=== PATIENT | female | born 1955 | race Caucasian/White ===

== ENCOUNTER 2018-05-19 19:18 | Outpatient (REF) | payer MEDICARE, MEDICAID, SELFPAY ==
[2018-05-19 20:01] LABS: Anion Gap 8.9 mmol/L (3-11); BUN 16 mg/dL (7-18); CO2 28.1 mmol/L (21.0-32.0); CREATININE 1.41 mg/dL (0.55-1.02); Calcium 9.1 mg/dL (8.5-10.1); Chloride 102 mmol/L (98-107); Estimated GFR 37.55 (mL/min/1.73m2); Glucose 348 mg/dL (70-100); Potassium 4.5 mmol/L (3.5-5.1); Sodium 139 mmol/L (136-145); TSH (W/Ref FT4) 1.86 uIU/mL (0.358-3.74)
== END 2018-05-19 19:38 ==
LOC: LBN 19:18
PROVIDERS: PCP Nurse Practitioner Adult Health; Visit Provider Nurse Practitioner Adult Health
DX: E03.9 Hypothyroidism, unspecified (principal); E11.49 Type 2 diabetes mellitus with other diabetic neurological complication
CPT/HCPCS: 80048; 84443

== ENCOUNTER 2018-11-26 02:01 | Outpatient (CLI) | payer MEDICARE, MEDICAID, SELFPAY | END 2018-11-26 02:21 | PROVIDERS: PCP Nurse Practitioner Adult Health; Visit Provider Nurse Practitioner Adult Health | DX: J44.9 Chronic obstructive pulmonary disease, unspecified (principal) ==

== ENCOUNTER 2019-05-19 11:48 | Outpatient (CLI) | payer MEDICARE, MEDICAID, SELFPAY ==
--- NOTE | 2019-05-19 12:04 | DI.RAD_ITS ---
EXAM: XR ELBOW LT COMPLETE INDICATION: pain. COMPARISON: No exams were available for comparison TECHNIQUE: 2D digital imaging was performed. FINDINGS: There is soft tissue swelling posterior to the olecranon. There is mild spurring at the olecranon an d epicondyles. The joint spaces are well maintained. IMPRESSION: Olecranon bursitis.
== END 2019-05-19 12:08 ==
PROVIDERS: PCP Nurse Practitioner Adult Health; Referring Provider Nurse Practitioner Adult Health; Visit Provider Orthopaedic Surgery
DX: M25.522 Pain in left elbow (principal); M79.89 Other specified soft tissue disorders; M70.22 Olecranon bursitis, left elbow
CPT/HCPCS: 99214; 73080

== ENCOUNTER 2019-08-26 08:47 | Outpatient (CLI) | payer MEDICARE, MEDICAID, SELFPAY ==
[2019-08-27 14:13] LABS: COVID-19 RT-PCR Result Negative (Negative)
== END 2019-08-26 09:07 ==
PROVIDERS: PCP Nurse Practitioner Adult Health; Visit Provider Nurse Practitioner
DX: R05 Cough (principal); R06.02 Shortness of breath
CPT/HCPCS: U0003

== ENCOUNTER 2019-09-02 10:53 | Inpatient (IN) | payer MEDICARE, MEDICAID, SELFPAY ==
[2019-09-02] VITALS (41 sets, daily range): BP systolic 100–150; BP diastolic 58–112; PULSE 68–107; RESP 16–34; TEMP 36.3–37.1; O2SAT 89–100
--- NOTE | 2019-09-02 11:04 | ED.GENADUL_ITS ---
Discharge Plan Disposition Patient Disposition: [facility] INPATIENT Condition: Improving Discharge Details Chief Complaint: SOB Clinical Impression: CHF exacerbation, Acute dyspnea Primary Care Provider: Mai Castelan ED Provider: Jeremie Mcdonald Home Meds and New Rx's Prescriptions: No Action ezetimibe [Zetia] 10 mg tablet 10 mg PO DAILY Qty: 90 RF: 3 levothyroxine 50 mcg tablet 50 mcg PO DAILY Qty: 90 RF: 3 mupirocin 2 % ointment 1 applic TP BID Qty: 15 RF: 0 nicotine 10 mg cartridge 1 inh IH 4-6XD PRN (Reason: nicotine cravings) Qty: 168 RF: 1 acetaminophen 500 mg capsule 1,000 mg PO TID Qty: 180 RF: 11 naproxen 250 mg tablet 250 mg PO BID Qty: 30 RF: 1 Mucinex 1,200 mg tablet extended release 12hr 1,200 mg PO Q12H PRN (Reason: cold symptoms) Qty: 60 RF: 1 Medical THC 1 misc Inhalation PRN PRNRF: 0 budesonide-formoterol [Symbicort] 10.2 GM HFA aerosol inhaler 2 puff Inhalation BID Qty: 3 RF: 3 spironolactone 25 MG tablet 12.5 mg PO DAILY Qty: 30 RF: 11 duloxetine [Cymbalta] 60 mg capsule,delayed release(DR/EC) 60 mg PO BID Qty: 180 RF: 3 albuterol sulfate [ProAir HFA] 90 mcg/actuation HFA aerosol inhaler 1 - 2 puff Inhalation Q4H PRN Qty: 1 RF: 3 Lantus Solostar U-100 Insulin 100 unit/mL (3 mL) insulin pen 80 unit Sub-Q HS Qty: 3 RF: 11 Victoza 2-Kosta 0.6 mg/0.1 mL (18 mg/3 mL) pen injector 1.8 mg subcut DAILY Qty: 3 RF: 3 metoprolol tartrate 25 mg tablet 25 mg PO BID Qty: 180 RF: 3 pantoprazole 40 mg tablet,delayed release (DR/EC) 40 mg PO DAILY Qty: 90 RF: 3 simvastatin 40 mg tablet 40 mg PO DAILY Qty: 90 RF: 3 torsemide 10 mg tablet 10 mg PO DAILY Qty: 90 RF: 3 (DME) pen needle, diabetic [BD Ultra-Fine Carmela Pen Needle] 32 gauge x 5/32 needle 1 ea Sub-Q 6 times a day Qty: 540 RF: 6 finasteride 5 mg tablet 1.25 mg PO DAILY RF: 0 buspirone 30 mg tablet 15 mg PO BID Qty: 90 RF: 3 losartan [Cozaar] 50 mg tablet 50 mg PO DAILY Qty: 90 RF: 3 benzonatate [Tessalon Perles] 100 mg capsule 100 mg PO TID PRN (Reason: cough) Qty: 90 RF: 3 ipratropium bromide 0.03 % spray,non-aerosol 2 spray SANKET TID Qty: 30 RF: 0 insulin aspart U-100 [Novolog Flexpen U-100 Insulin] 100 unit/mL (3 mL) insulin pen 20 unit SC AC Qty: 60 RF: 3 (DME) blood sugar diagnostic Strip See Dose Instructions .ROUTE .MEDSUPPLY Qty: 400 RF: 3 (DME) lancets [OneTouch UltraSoft Lancets] Misc See Dose Instructions .ROUTE .MEDSUPPLY Qty: 400 RF: 3 Medical Decision Making 64-year-old female with a past medical history of COPD, CHF, CAD, hypertension, diabetes, distant history of AAA. Previous echo was in 2017 which showed a slightly reduced EF of 45%. She takes 10 mg torsemide daily. 2 weeks ago she had a mild upper respiratory infection, was COVID negative upon testing. She states that that just his not completely resolved, she has continued cough with productive white sputum. No red flags for PE, no chest pain or concerning symptoms for ACS. Signs and symptoms appear clinically consistent with mild CHF exacerbation. Patient is notably conversationally dyspneic, she does not use oxygen at baseline. Unable to ambulate well without getting extremely short of breath. We will get a laboratory work-up, portable chest x-ray, and begin to gently diurese. Infectious etiology less likely. 12:30 PM Patient's laboratory work-up is returned, patient has no white count, no bandemia, no left shift. No lymphopenia. Symptoms certainly inconsistent with coronavirus especially in conjunction with a recent negative testing. With no fever or chills no white count or bandemia, infectious etiology unlikely in general. Chest x-ray does demonstrate evidence of mild pulmonary edema. Still pending formal radiology read. proBNP notably elevated at 1500, much higher than her normal baseline. Troponin normal, renal function stable. Patient has been given 20 mg of IV Lasix. Also of note the patient is now stating that she has been eating a lot of pastrami foods, which I suspect have certainly been contributing to her CHF exacerbation. She remains hemodynamically stable here. This time I do feel that she would be of benefit for admission secondary to her generalized dyspnea. Symptoms appear at this time inconsistent with PE. And clinically consistent with CHF exacerbation. I do not feel that additional testing is indicated at this time. Discussed the case with Dr. Tate, he agrees with the assessment and plan. Patient will be admitted to [facility]. I will place bridging orders. I have extensively reviewed the treatment plan with the patient. I have addressed all patient concerns at this time. I have also discussed the plan with the admitting physician and they agree with the current assessment and plan and have agreed to assume responsibility for the patient. All parties demonstrate verbal understanding and agreement with our assessment and plan at this time. 12:41 PM X-ray radiographs of return, no evidence of focal consolidation. Radiology does feel that there is no evidence of significant CHF, however both clinically and upon evaluation of films I do feel differently. We will continue to manage for CHF exacerbation. 12:39 PM I have been informed that med staff has requested that we recheck for coronavirus. Will add flu and vera to be performed down here in the ED which is a change within the last 3 hours for current diagnostic medical practice here in the ED. EKG 11: 06 Rate 101, intervals demonstrate OR slightly prolonged at 204, QTc 451, QRS 118, sinus tachycardia, Q waves are noted in V3, through V6 as well as 2, 3, and aVF. Previous EKG from 04/03/2017 demonstrates near identical findings. No evidence of STEMI. No significant ST elevation or depression. FINDINGS: The exam is suboptimally penetrated. The heart size is within normal limits. A hiatal hernia is noted. A lead overlies the chest. The lungs are grossly clear. No effusions or focal consolidation is seen. There is no evidence of overt pulmonary edema. A right shoulder prosthesis is noted. IMPRESSION: Limited exam. Hiatal hernia. No evidence of CHF or focal consolidation. HPI General Date/Time Provider Initiated Documentation: 09/02/19 11:02 . HPI Narrative: 64-year-old female with a past medical history of COPD, CHF, coronary artery disease, hypertension, diabetes, AAA, who presents today for evaluation of shortness of breath and leg swelling. Patient states about 2 weeks ago she had a mild upper respiratory-like infection with cough. She was tested for COVID, this was returned as negative on 08/25. She states that she has never really gotten better since then. She originally had some chills, but she denies any fevers. Her cough is productive with white frothy sputum. She denies any hemoptysis. She has noticed that over the last 2 to 3 days she has become p rogressively more short of breath, worse when lying flat. She is also noticed bilateral lower extremity edema. Denies PE risk factors such as recent long car rides, immobilization, recent surgery, prior history of DVT or PE, family history of PE or DVT, morbid obesity, exogenous estrogen and smoking, hemoptysis, history of cancer. She has been taking her 10 mg of furosemide as directed daily. She does state that she has been using her inhaler, and this helped slightly. She denies any chest pain, chest tightness, bandlike sensation around her chest, pleuritic chest pain. She states that this does not feel like her last heart attack. She denies any other complaints at this time. No additional modifying factors. Related Data Home Medications Medication Instructions Recorded Confirmed Medical Thc 1 misc INHALATION PRN PRN 04/06/14 09/02/19 budesonide-formoterol [Symbicort] 2 puff INHALATION BID #3 inhaler 01/28/17 09/02/19 spironolactone 12.5 mg PO DAILY #30 tab-cap 10/28/17 09/02/19 duloxetine 60 mg capsule,delayed 60 mg PO BID #180 tab-cap 05/01/18 09/02/19 release albuterol sulfate 90 mcg/actuation 1 - 2 puff INHALATION Q4H PRN #1 gm 08/06/18 09/02/19 aerosol inhaler insulin glargine 100 unit/mL (3 80 unit SUB-Q HS #3 ml 08/06/18 09/02/19 mL) subcutaneous pen liraglutide 0.6 mg/0.1 mL (18 mg/3 1.8 mg SUBCUT DAILY #3 pack 08/06/18 09/02/19 mL) subcutaneous pen injector metoprolol tartrate 25 mg tablet 25 mg PO BID #180 tab-cap 08/06/18 09/02/19 pantoprazole 40 mg tablet,delayed 40 mg PO DAILY #90 tab-cap 08/06/18 09/02/19 release simvastatin 40 mg tablet 40 mg PO DAILY #90 tab 08/06/18 09/02/19 torsemide 10 mg tablet 10 mg PO DAILY #90 tab-cap 08/06/18 09/02/19 nicotine 10 mg inhalation cartridge 1 inh IH 4-6XD PRN #168 each 10/30/18 09/02/19 pen needle, diabetic 32 gauge x #540 ndl 11/03/18 09/02/19 finasteride 5 mg tablet 1.25 mg PO DAILY tab 02/09/19 09/02/19 ezetimibe 10 mg tablet 10 mg PO DAILY #90 tab-cap 03/03/19 09/02/19 levothyroxine 50 mcg tablet 50 mcg PO DAILY #90 tab-cap 03/03/19 09/02/19 mupirocin 2 % topical ointment 1 applic TP BID #15 gm 03/03/19 09/02/19 buspirone 30 mg tablet 15 mg PO BID #90 tab 06/11/19 09/02/19 losartan 50 mg tablet 50 mg PO DAILY #90 tab 06/11/19 09/02/19 benzonatate 100 mg capsule 100 mg PO TID PRN #90 cap 07/02/19 09/02/19 ipratropium bromide 0.03 % nasal 2 spray SANKET TID #30 ml 07/25/19 09/02/19 spray insulin aspart U-100 100 unit/mL 20 unit SC AC #60 ml 08/10/19 09/02/19 (3 mL) subcutaneous pen acetaminophen 500 mg capsule 1,000 mg PO TID #180 cap 08/17/19 09/02/19 guaifenesin 1,200 mg tablet, 1,200 mg PO Q12H PRN #60 tab 08/17/19 09/02/19 extended release 12 hr naproxen 250 mg tablet 250 mg PO BID #30 tab 08/17/19 09/02/19 blood sugar diagnostic #400 each 08/21/19 09/02/19 lancets #400 each 08/21/19 09/02/19 Previous Rx's Medication Instructions Recorded budesonide-formoterol [Symbicort] 2 puff INHALATION BID #3 inhaler 01/28/17 spironolactone 12.5 mg PO DAILY #30 tab-cap 10/28/17 duloxetine 60 mg capsule,delayed 60 mg PO BID #180 tab-cap 05/01/18 release albuterol sulfate 90 mcg/actuation 1 - 2 puff INHALATION Q4H PRN #1 gm 08/06/18 aerosol inhaler insulin glargine 100 unit/mL (3 80 unit SUB-Q HS #3 ml 08/06/18 mL) subcutaneous pen liraglutide 0.6 mg/0.1 mL (18 mg/3 1.8 mg SUBCUT DAILY #3 pack 08/06/18 mL) subcutaneous pen injector metoprolol tartrate 25 mg tablet 25 mg PO BID #180 tab-cap 08/06/18 pantoprazole 40 mg tablet,delayed 40 mg PO DAILY #90 tab-cap 08/06/18 release simvastatin 40 mg tablet 40 mg PO DAILY #90 tab 08/06/18 torsemide 10 mg tablet 10 mg PO DAILY #90 tab-cap 08/06/18 nicotine 10 mg inhalation cartridge 1 inh IH 4-6XD PRN #168 each 10/30/18 pen needle, diabetic 32 gauge x #540 ndl 11/03/18 ezetimibe 10 mg tablet 10 mg PO DAILY #90 tab-cap 03/03/19 levothyroxine 50 mcg tablet 50 mcg PO DAILY #90 tab-cap 03/03/19 mupirocin 2 % topical ointment 1 applic TP BID #15 gm 03/03/19 buspirone 30 mg tablet 15 mg PO BID #90 tab 06/11/19 losartan 50 mg tablet 50 mg PO DAILY #90 tab 06/11/19 benzonatate 100 mg capsule 100 mg PO TID PRN #90 cap 07/02/19 ipratropium bromide 0.03 % nasal 2 spray SANKET TID #30 ml 07/25/19 spray insulin aspart U-100 100 unit/mL 20 unit SC AC #60 ml 08/10/19 (3 mL) subcutaneous pen acetaminophen 500 mg capsule 1,000 mg PO TID #180 cap 08/17/19 guaifenesin 1,200 mg tablet, 1,200 mg PO Q12H PRN #60 tab 08/17/19 extended release 12 hr naproxen 250 mg tablet 250 mg PO BID #30 tab 08/17/19 blood sugar diagnostic #400 each 08/21/19 lancets #400 each 08/21/19 Allergies Allergy/AdvReac Type Severity Reaction Status Date / Time bupropion HCl Allergy Severe seizures Verified 09/02/19 11:07 [From Wellbutrin] carvedilol [From Coreg] Allergy Mild Itching Verified 09/02/19 11:07 morphine AdvReac Unknown nausea Verified 09/02/19 11:07 General Stated Complaint: SOB DINESH: 2 Review of Systems All systems reviewed & are unremarkable except as noted in HPI and below PFSH Medical History (Updated 09/02/19 @ 12:40 by Jeremie Mcdonald DO) Abdominal aortic aneurysm (Chronic 11/27/12) Identified 10/31/12 CT abd-pelvis; 4cm; stable 4.1 cm 07/2014 CT, 4.3cm 11/2016, 5.5cm [place] [place] Brennen Nava following; see 04/2016 progress note. 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 Guerra DJD of right shoulder (Chronic 01/01/13) 12/2012 x-ray severe DJD glenohumeral joint Dr. Guerra; not a surgical candidate for replacement Episode of seizures in July 2012 (Resolved) Esophageal reflux disease (Chronic 07/24/11) UPPER GI SERIES 11/14/2012, MOD HIATAL HERNIA SEVERE GERD Headache (Chronic 08/31/13) Hypertension (Chronic) Hypothyroidism (Chronic) Incarcerated umbilical hernia (Resolved 09/06/15) Marijuana dependence (Chronic) Nausea and vomiting (Resolved 08/01/14) a. previous history of possible marijuana induced hyperemesis Neurogenic bladder (Resolved 07/24/11) Does not need to self-cath 11/2016: +Urinary retention [facility] inpt requiring cath; resolved by time of discharge Nicotine dependence (Chronic) Obesity, unspecified (Chronic 07/24/11) Other and unspecified hyperlipidemia (Chronic 08/14/12) Spinal stenosis of lumbar region with neurogenic claudication (Chronic 12/08/13) 04/13/2013 MRI Lumbar Spine: Facet arthropathy, DJD, L4-5, L5-S1 central spinal and neural foraminal stenosis Neurosurgery referral, but not a surgical candidate [facility] chronic pain service Chronic Pain [facility] consult 10[place]26[place] [facility] [place]04/17 (Sanket Sawant MD) 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 work-up 2010/chun +Hereditary, 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 Ambulates with cane when out; walker at home 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) Goal A1c < 7.5% Schein, neuropathy; Charcot's foot 03/19/13 [facility] Surgical History (Updated 08/17/19 @ 13:38 by Mai Castelan NP) Appendectomy Childhood surgery, no date given by pt.HE Hemiarthroplasty (06/13/15) Dr Charlie Gallardo shoulder History of carpal tunnel release of both wrists (Acute ~05/2012) Hx of umbilical hernia repair (Inactive 09/06/15) Incarcerated umbilical hernia repair (09/06/15) Tonsillectomy childhood surgery, no date given by pt.HE Social History Smoking/Tobacco Use Status: Current every day Alcohol Intake: never Drug use: Daily Substance use type: marijuana Adopted: No Foster care: No Housing: house Number of Children: 1 Communication Needs: Corrective Lenses Education Level: high school Details: didn't sophomore year Do you need help understanding health information?: Never 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 Pets and animals: Yes Current gender identity: female What is your relationship status?: Panel score (0-1 are the most socially isolated patients): 0 What type of physical activity do you participate in: none Do you feel safe at home: Yes Do you feel safe in your relationship?: Yes Exam Narrative Exam Narrative: 1.Const: Well-nourished, Well-developed, appearing stated age 2.Eyes: PERRL, no conjunctival injection, and symmetrical lids. 3.ENT: Atraumatic external nose and ears. Moist MM. Neck: Symmetric, trachea midline, No thyromegaly. 4.CVS: +S1/S2, No murmurs or gallops. Peripheral pulses 2+ and equal in all extremities. Brisk capillary refill in all extremities. 5.RESP: Conversationally dyspneic. Oxygen stable though. Wheezes on the right, crackles at bases. 6.GI: Soft, Nontender/Nondistended, No hepatosplenomegaly. No guarding or rebound. 7.MSK: Normocephalic/Atraumatic, Extremities w/o deformity or ttp No cyanosis or clubbing, Normal movement of all extremities. No significant or unilateral calf tenderness, however she has +2 bilateral lower extremity edema. 8.Skin: Warm, Dry. No rashes or lesions. 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 Sensation grossly intact, no focal neurologic deficits. 10.Psych: (AAO) x3. Appropriate mood and affect Course Vital Signs Vital signs: Vital Signs Temperature 36.8 C 09/02/19 10:54 Pulse 107 H 09/02/19 10:54 Respiratory Rate 16 09/02/19 10:54 Pulse Oximetry 96 09/02/19 10:54 Temperature 36.8 C 09/02/19 10:54 Temperature Source Skin 09/02/19 10:54 Pulse 107 H 09/02/19 10:54 Respiratory Rate 16 09/02/19 10:54 Pulse Oximetry 96 09/02/19 10:54 Oxygen Delivery Method Room Air 09/02/19 10:54 Oxygen Flow Rate 0 09/02/19 10:54 Lab/Test Results Lab/Test Results: 09/02/19 11:03 Blood Blood Culture - Pending 09/02/19 11:03 Blood Blood Culture - Pending
--- NOTE | 2019-09-02 11:08 | NUR.NOTE ---
[facility] med list Nursing Note:
[2019-09-02 11:25] LABS: Abs Immature Grans 0.07 k/cumm (0.0-0.09); Absolute Basophil Count 0.02 k/cumm (0.0-0.2); Absolute Eosinophil Count 0.19 k/cumm (0.0-0.7); Absolute Lymphocyte Count 1.26 k/cumm (1.2-3.4); Absolute Monocyte Count 0.55 k/cumm (0.11-0.7); Absolute Neutrophil Count 6.31 k/cumm (1.2-6.7); Basophils % 0.2; Eosinophils % 2.3; HCO3 (Venous) 28 mmol/L (22-28); HCT 32.3 % (36.0-46.0); HGB 9.5 g/dL (12.0-15.5); Immature Grans % 0.8 %; Mean Corp. HGB Concentration 29.4 g/dL (32.0-36.0); Mean Corpuscular Hemoglobin 22.5 pg (27.0-33.0); Mean Corpuscular Volume 76.4 fL (80-95); Mean Platelet Volume 9.9 fL (8.0-11.0); Monocytes % 6.5; Neutrophils % 75.2; O2 Sat (Venous) 93 % (70-80); Platelet Count 342 x1000/uL (130-400); RBC 4.23 m/cumm (4.00-5.20); RBC Distribution Width 18.4 % (11.7-14.6); TCO2 (Venous) 27 mmol/L (22-29); pCO2 (Venous) 43 mm/Hg (34-47); pH (Venous) 7.43 (7.35-7.45); pO2 (Venous) 65 mm/Hg (28-44)
[2019-09-02 11:40] LABS: Diff Comment Diff Reviewed; Hypochromasia 2+; Microcytosis 1+; Poikilocytes 1+
[2019-09-02 11:52] LABS: ALT 41 U/L (14-59); AST 34 U/L (15-37); Albumin 3.4 g/dL (3.4-5.0); Alkaline Phosphatase 154 U/L (46-116); Anion Gap 8.5 mmol/L (3-11); BUN 24 mg/dL (7-18); Bilirubin, Total 0.4 mg/dL (0.2-1.0); CO2 28.5 mmol/L (21.0-32.0); CREATININE 1.12 mg/dL (0.55-1.02); Chloride 105 mmol/L (98-107); Estimated GFR 48.82 (mL/min/1.73m2); Glucose 214 mg/dL (74-106); NT-proBNP 1511 pg/mL (<300); Potassium 4.3 mmol/L (3.5-5.1); Sodium 142 mmol/L (136-145); Total Protein 7.2 g/dL (6.4-8.2); Troponin I < 0.05 ng/Ml (<0.06)
[2019-09-02 11:59] LABS: PTT Activated 25.2 sec (21.0-31.4)
--- NOTE | 2019-09-02 12:04 | DI.RAD_ITS ---
EXAM: XR PORTABLE CHEST AP CLINICAL HISTORY: cough, SOB, suspect chf, r/o pneumonia TECHNIQUE: 2D digital imaging was performed. COMPARISON: ABD FLAT UPRIGHT PA CHEST from 11/13/2016 CTA THORAX/ABDOMEN/PELVIS from 04/01/2017 FINDINGS: The exam is suboptimally penetrated. The heart size is within normal limits. A hiatal hernia is no dena. A lead overlies the chest. The lungs are grossly clear. No effusions or focal consolidation i s seen. There is no evidence of overt pulmonary edema. A right shoulder prosthesis is noted. IMPRESSION: Limited exam. Hiatal hernia. No evidence of CHF or focal consolidation.
[2019-09-02] MEDS: Normal Saline Flush 10 ML SYR IVP ×2 (12:14→20:48)
[2019-09-02] MEDS: Furosemide 20 MG/2 ML VIAL IVP (12:14)
[2019-09-02 12:20] LABS: Bilirubin Negative (Negative); Blood Trace-intact (Negative); Clarity Sl Cloudy (Clear); Glucose Negative (Negative); Ketones Negative (Negative); Leukocyte Esterase Small (Negative); Nitrite Negative (Negative); Specific Gravity 1.025 (1.005-1.025); Urobilinogen 0.2 EU/dL (Up TO 0.2)
[2019-09-02 12:35] LABS: Epithelial Cells Many HPF (Negative); Other Cells Few Renal (Negative); RBC 0-2 HPF (0-2); WBC 0-2 HPF (0-5)
[2019-09-02 12:36] LABS: Bacteria Negative HPF (Negative); C & S Indicated? No/Sq. Contamination; Casts Negative LPF (Negative); Crystals Negative HPF (Negative); Mucus Negative (Negative)
[2019-09-02] MEDS: Albuterol HFA 8 GM 60 PUFF INH IH (13:26)
[2019-09-02 14:51] LABS: Troponin I < 0.05 ng/Ml (<0.06)
--- NOTE | 2019-09-02 15:29 | W.PM.HP.N ---
Date of service: 09/02/19 Time of Service: 15:29 Assessment and Plan Assessment and plan (1) CHF exacerbation: Status: Acute Assessment and plan: I think her respiratory symptoms can be almost fully explained by CHF exacerbation, likely due to intermittent medication adherence. Less likely cardiac dysrhythmia or ischemia. We will cycle troponins and monitor rhythm on telemetry. Parenteral Lasix given in the ER with moderate diuretic response already. I am re-dosing at a higher dose and then we will see what response we get. May need to increase her outpatient dose of torsemide although strict medication adherence might be sufficient. Continue ARB and beta-gerry at current dosages. Once out of the respiratory care unit, will obtain echocardiogram. (2) Nicotine dependence: Status: Chronic Assessment and plan: Still smoking. Wants to quit. Will provide nicotine replacement in the form of nicotine inhaler. (3) Type II diabetes mellitus with neurological manifestations: Status: Chronic Assessment and plan: Adherence with testing and treatment spotty. Continue with basal bolus insulin regimen reducing the doses of both long and short acting insulin to avoid hypoglycemia and monitoring blood sugar response (4) Esophageal reflux disease: Status: Chronic Assessment and plan: Probable flare of symptoms related to inconsistent medication use. Continue outpatient PPI. (5) Coronary artery disease involving [place] coronary artery of [place] heart: Status: Chronic Assessment and plan: I think it is unlikely ischemia is playing a role in her current symptoms although it is possible. Cycle troponins as noted above. Continue outpatient medications, (beta-gerry, statin, ezetimibe and ARB.) Monitor rhythm on telemetry. Work on smoking cessation. (6) Chronic kidney disease, stage III (moderate): Status: Chronic Assessment and plan: BUN and creatinine lab work seems to be at baseline. Monitor with efforts at diuresis. (7) COPD, mild: Status: Chronic Assessment and plan: I do not see a need for systemic steroids. We will continue inhaled corticosteroids with Symbicort, as needed short acting albuterol. If not responding consider adding Spiriva. Work on smoking cessation. (8) Chronic back pain: Status: Chronic Assessment and plan: In light of her heart failure, NSAIDs contraindicated. Symptom treatment with acetaminophen, local heat or cold as tolerated. (9) Hypertension: Status: Chronic Assessment and plan: Follow on outpatient meds plus efforts at diuresis. (10) Tinea corporis: Status: Acute Assessment and plan: Mild involvement, submammary. Topical Chlortrimazole. (11) Person under investigation for COVID-19: Status: Acute Assessment and plan: Low very low probability that she is acquired COVID in the past week. Nevertheless presents with respiratory symptoms. COVID testing sent. (12) Microcytic anemia: Status: Acute Assessment and plan: No history of known GI bleeding. Longstanding microcytosis. We will check iron levels. We will also check stool for occult blood. History of Present Illness History of Present Illness Chief Complaint: Shortness of breath and leg swelling Narrative: 64-year-old woman with multiple chronic medical problems including congestive heart failure, presumably ischemic cardiomyopathy with past history of coronary artery disease, inferior wall DC in the , poorly controlled diabetes, mild COPD with continued tobacco use, chronic kidney disease, hypertension, GERD and chronic pain from arthritis axial and appendicular. She presented to the emergency room complaining of increasing exertional dyspnea, orthopnea and lower extremity swelling perhaps over the past 4 to 5 days. Subsequent to ER visit admits to me that she has been spotty in taking her medications. She has not had any palpitations. She has had some vague nonexertional chest pain. She received a GI cocktail in the ER which seemed to help. She does now acknowledge bad heartburn since stopping her PPI. Reports that she often will stop taking medications for 3 to 5 days at a time and then resume them. She only recently restarted her diuretic. Last echocardiogram in 2017 showed an LVEF of 40 to 45%. She has not seen a rock wool applicator since her last visit with Dr. Fair (whom she does not want to see again). She does not add salt to food but has eaten salty foods in the past week. She thinks her weight has gone up by 15 pounds in the past few weeks with no major changes in activity or diet. She has had a persistent cough ever since a head cold 2 to 3 weeks ago that she attributes to acquiring from her son with whom she lives. Cough minimally productive. She has not had any fever. Still smoking a half a pack a day and really wants to quit. Inconsistent use of her inhalers. She had COVID testing last week which was negative. She has not been out of the house although her son does go in and out of the house with his work. He is asymptomatic in terms of any fever or respiratory symptoms. She does not test her blood sugars regularly nor does she take her insulin consistently. She has not had any hypoglycemic episodes recently. Review of Systems Narrative: No fever. No loss of smell or taste. Does not have any upper teeth, does not wear dentures, mechanically soft diet usually at home. No trouble swallowing. Cough productive of some whitish phlegm. No dysphagia. Has had some retrosternal burning. No nausea or vomiting. No abdominal pains. Tendency towards constipation. No dysuria or hematuria. Lower extremity swelling as per HPI. Occasional paresthesias in the feet. Picks at lesions on her extremities and still covers them with Band-Aids. Recent cat scratch to her left leg with no redness or discharge or pain. Occasional cramping in her sides. Skin rash under the breasts that is a little bit itchy. [facility] Medical History (Updated 09/02/19 @ 15:54 by Jaime Tate MD) Abdominal aortic aneurysm (Chronic 11/27/12) Identified 10/31/12 CT abd-pelvis; 4cm; stable 4.1 cm 07/2014 CT, 4.3cm 11/2016, 5.[place] [place] Brennen Nava following; see 04/2016 progress note. 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 Ward Calculus of kidney and ureter (Resolved) Cardiomyopathy (Chronic) Dr Fair, EF 45% Jun 2014 ECHO (h/o much worse) 10/2016 ECHO: EF 40-45% 10/2016 MPI: no acute, but persistent old infarct Carpal tunnel syndrome (Resolved 08/14/12) resolved s/p b/l release Chronic back pain (Chronic) History of chronic opioids, now none Chronic kidney disease, stage III (moderate) (Chronic 08/14/12) Cortical atrophy R kidney on CT 07/2014; multiple cysts COPD, mild (Chronic 07/02/17) PFTs Coronary artery disease involving [place] coronary artery of [place] heart (Chronic) INFERIOR DC 1996, 100% RCA occlusion; large inf defect on perfusion scan, dr Fair Depressive disorder (Chronic 08/14/12) 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 Guerra DJD of right shoulder (Chronic 01/01/13) 12/2012 x-ray severe DJD glenohumeral joint Dr. Guerra; not a surgical candidate for replacement Episode of seizures in July 2012 (Resolved) Esophageal reflux disease (Chronic 07/24/11) UPPER GI SERIES 11/14/2012, MOD HIATAL HERNIA SEVERE GERD Headache (Chronic 08/31/13) Hypertension (Chronic) Hypothyroidism (Chronic) Incarcerated umbilical hernia (Resolved 09/06/15) Marijuana dependence (Chronic) Nausea and vomiting (Resolved 08/01/14) a. previous history of possible marijuana induced hyperemesis Neurogenic bladder (Resolved 07/24/11) Does not need to self-cath 11/2016: +Urinary retention [facility] inpt requiring cath; resolved by time of discharge Nicotine dependence (Chronic) Obesity, unspecified (Chronic 07/24/11) Other and unspecified hyperlipidemia (Chronic 08/14/12) Spinal stenosis of lumbar region with neurogenic claudication (Chronic 12/08/13) 04/13/2013 MRI Lumbar Spine: Facet arthropathy, DJD, L4-5, L5-S1 central spinal and neural foraminal stenosis Neurosurgery referral, but not a surgical candidate [facility] chronic pain service Chronic Pain [facility] Pain Center [place] [facility] [place]/04/17 (Sanket Sawant MD) 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 work-up chun +Hereditary, 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 Ambulates with cane when out; walker at home 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) Goal A1c < 7.5% Schein, neuropathy; Charcot's foot 03/19/13 [facility] Surgical History (Updated 08/17/19 @ 13:38 by Mai Castelan NP) Appendectomy Childhood surgery, no date given by pt.HE Hemiarthroplasty (06/13/15) Dr Charlie Gallardo shoulder History of carpal tunnel release of both wrists (Acute ~05/2012) Hx of umbilical hernia repair (Inactive 09/06/15) Incarcerated umbilical hernia repair (09/06/15) Tonsillectomy childhood surgery, no date given by pt.HE Social History Smoking/Tobacco Use Status: Current every day Alcohol Intake: never Drug use: Daily Substance use type: marijuana Adopted: No Foster care: No Housing: house Number of Children: 1 Communication Needs: Corrective Lenses Education Level: high school Details: didn't sophomore year Do you need help understanding health information?: Never 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 Pets and animals: Yes Current gender identity: female What is your relationship status?: Panel score (0-1 are the most socially isolated patients): 0 What type of physical activity do you participate in: none Do you feel safe at home: Yes Do you feel safe in your relationship?: Yes Meds Home Medications and Allergies Home Medications Medication Instructions Recorded Confirmed Type Medical Thc 1 misc INHALATION PRN PRN 04/06/14 09/02/19 History budesonide-formoterol [Symbicort] 2 puff INHALATION BID #3 inhaler 01/28/17 09/02/19 Rx duloxetine 60 mg capsule,delayed 60 mg PO BID #180 tab-cap 05/01/18 09/02/19 Rx release albuterol sulfate 90 mcg/actuation 1 - 2 puff INHALATION Q4H PRN #1 gm 08/06/18 09/02/19 Rx aerosol inhaler insulin glargine 100 unit/mL (3 80 unit SUB-Q HS #3 ml 08/06/18 09/02/19 Rx mL) subcutaneous pen liraglutide 0.6 mg/0.1 mL (18 mg/3 1.8 mg SUBCUT DAILY #3 pack 08/06/18 09/02/19 Rx mL) subcutaneous pen injector metoprolol tartrate 25 mg tablet 25 mg PO BID #180 tab-cap 08/06/18 09/02/19 Rx pantoprazole 40 mg tablet,delayed 40 mg PO DAILY #90 tab-cap 08/06/18 09/02/19 Rx release simvastatin 40 mg tablet 40 mg PO DAILY #90 tab 08/06/18 09/02/19 Rx torsemide 10 mg tablet 10 mg PO DAILY #90 tab-cap 08/06/18 09/02/19 Rx nicotine 10 mg inhalation cartridge 1 inh IH 4-6XD PRN #168 each 10/30/18 09/02/19 Rx pen needle, diabetic 32 gauge x #540 ndl 11/03/18 09/02/19 Rx 5/32 finasteride 5 mg tablet 1.25 mg PO DAILY tab 09/30/19 04/22/20 History ezetimibe 10 mg tablet 10 mg PO DAILY #90 tab-cap 03/03/19 09/02/19 Rx levothyroxine 50 mcg tablet 50 mcg PO DAILY #90 tab-cap 03/03/19 09/02/19 Rx mupirocin 2 % topical ointment 1 applic TP BID #15 gm 03/03/19 09/02/19 Rx buspirone 30 mg tablet 15 mg PO BID #90 tab 06/11/19 09/02/19 Rx losartan 50 mg tablet 50 mg PO DAILY #90 tab 06/11/19 09/02/19 Rx benzonatate 100 mg capsule 100 mg PO TID PRN #90 cap 07/02/19 09/02/19 Rx ipratropium bromide 0.03 % nasal 2 spray SANKET TID #30 ml 07/25/19 09/02/19 Rx spray insulin aspart U-100 100 unit/mL 20 unit SC AC #60 ml 08/10/19 09/02/19 Rx (3 mL) subcutaneous pen acetaminophen 500 mg capsule 1,000 mg PO TID #180 cap 08/17/19 09/02/19 Rx guaifenesin 1,200 mg tablet, 1,200 mg PO Q12H PRN #60 tab 08/17/19 09/02/19 Rx extended release 12 hr naproxen 250 mg tablet 250 mg PO BID #30 tab 08/17/19 09/02/19 Rx blood sugar diagnostic #400 each 08/21/19 09/02/19 Rx lancets #400 each 08/21/19 09/02/19 Rx Allergies Allergy/AdvReac Type Severity Reaction Status Date / Time bupropion HCl Allergy Severe seizures Verified 09/02/19 11:07 [From Wellbutrin] carvedilol [From Coreg] Allergy Mild Itching Verified 09/02/19 11:07 morphine AdvReac Unknown nausea Verified 09/02/19 11:07 Exam Narrative Exam Narrative: When resting speaks in full sentences, speaks in phrases after asking her to change position but recovers breathing fairly quickly. Temperature 36.3 blood pressure 109/58 regular pulse in the 90s. Sclera clear. No upper teeth, poor quality of the remaining mandibular teeth. No intraoral lesions visible. Cannot see neck veins because of the size of her neck. No cervical adenopathy or tenderness. Lungs have diminished breath sounds at both bases, few crackles at the left base none heard on the right. Heart tones soft, regular, I do not hear any murmur S3 or S4. She has erythema and faint scale in the submammary area bilaterally. Abdomen obese soft with normal bowel sounds no bruits heard and I cannot appreciate her known abdominal aortic aneurysm. There is no tenderness. Extremities with 3+ edema at the feet 2+ midshin none above the knee. She has scattered small abrasions on her left sutton. No ulcers on the feet. Good pulses in the feet and at the wrist. Symmetric movement of all extremities. Able to sit up in bed unassisted. Gets short of breath doing so. Oriented x4. Results Chest x-ray poor quality portable film compatible with CHF. EKG sinus rhythm with old inferior wall DC, no change from past ECGs. Troponins negative x2. NT proBNP elevated. Labs Result diagrams: 09/02/19 11:05 09/02/19 11:05 Labs: Laboratory Results - last 24 hr 09/02/19 09/02/19 09/02/19 11:05 11:05 11:05 WBC 8.40 RBC 4.23 Hgb 9.5 L Hct 32.3 L MCV 76.4 L MCH 22.5 L MCHC 29.4 L RDW 18.4 H Plt Count 342 MPV 9.9 Immature Gran % 0.8 Neutrophils % 75.2 Lymphocytes % 15.0 Monocytes % 6.5 Eosinophils % 2.3 Basophils % 0.2 Absolute Neutrophils 6.31 Absolute Lymphocytes 1.26 Absolute Monocytes 0.55 Absolute Eosinophils 0.19 Absolute Basophils 0.02 Differential Comment Diff reviewed RBC Morphology See below Hypochromasia 2+ Poikilocytosis 1+ Microcytosis 1+ PT 10.0 INR 1.0 APTT 25.2 VBG pH VBG pCO2 VBG pO2 VBG HCO3 VBG Total CO2 VBG O2 Saturation VBG Base Excess Sodium 142 Potassium 4.3 Chloride 105 Carbon Dioxide 28.5 Anion Gap 8.5 BUN 24 H Creatinine 1.12 H Estimated GFR/1.73 m2 48.82 Glucose 214 H Calcium 9.0 Total Bilirubin 0.4 AST 34 ALT 41 Alkaline Phosphatase 154 H Troponin I < 0.05 NT-Pro-B Natriuret Pep 1511 H Total Protein 7.2 Albumin 3.4 Urine Color Urine Clarity Urine pH Ur Specific [place] Urine Protein Urine Ketones Urine Blood Urine Nitrite Urine Bilirubin Urine Urobilinogen Ur Leukocyte Esterase Urine RBC Urine WBC Ur Epithelial Cells Urine Crystals Urine Bacteria Urine Casts Urine Mucus Urine Other Ur Culture Indicated? Urine Glucose 09/02/19 09/02/19 09/02/19 11:05 11:50 14:25 WBC RBC Hgb Hct MCV MCH MCHC RDW Plt Count MPV Immature Gran % Neutrophils % Lymphocytes % Monocytes % Eosinophils % Basophils % Absolute Neutrophils Absolute Lymphocytes Absolute Monocytes Absolute Eosinophils Absolute Basophils Differential Comment RBC Morphology Hypochromasia Poikilocytosis Microcytosis PT INR APTT VBG pH 7.43 VBG pCO2 43 VBG pO2 65 H VBG HCO3 28 VBG Total CO2 27 VBG O2 Saturation 93 H VBG Base Excess 4.0 H Sodium Potassium Chloride Carbon Dioxide Anion Gap BUN Creatinine Estimated GFR/1.73 m2 Glucose Calcium Total Bilirubin AST ALT Alkaline Phosphatase Troponin I < 0.05 NT-Pro-B Natriuret Pep Total Protein Albumin Urine Color Yellow Urine Clarity Sl cloudy Urine pH 7.0 Ur Specific [place] 1.025 Urine Protein 30 H Urine Ketones Negative Urine Blood Trace-intact H Urine Nitrite Negative Urine Bilirubin Negative Urine Urobilinogen 0.2 Ur Leukocyte Esterase Small H Urine RBC 0-2 Urine WBC 0-2 Ur Epithelial Cells Many Urine Crystals Negative Urine Bacteria Negative Urine Casts Negative Urine Mucus Negative Urine Other Few renal Ur Culture Indicated? No/sq. contamination Urine Glucose Negative Last Vital Signs Temp 36.8 C 09/02/19 14:35 Pulse 100 H 09/02/19 14:35 Resp 17 09/02/19 14:35 BP 136/77 09/02/19 14:35 Pulse Ox 95 09/02/19 14:35 COVID-19 Screening Traveled to [place] from one of the affected countries or regions?: NO Recent travel in the [place] within the last 8 weeks?: No Recent out of the country travel within the last 8 weeks?: No Exposure or possible exposure to illness during travel?: No Had IN PERSON contact w/suspected or confirmed C-19 person: No Have you had the following symptoms in the past few days?: Yes Symptoms noted since travel?: Lower Respiratory
[2019-09-02] MEDS: Furosemide 40 MG/4 ML VIAL IVP (16:12)
[2019-09-02] MEDS: Pantoprazole 40 MG TABCR PO (16:12)
[2019-09-02 17:11] LABS: Iron 31 ug/dL (50-170); Total Iron Binding Capacity 409 ug/dL (250-450); Transferrin Sat 8 % (15-50)
[2019-09-02] MEDS: Insulin Aspart 300 UNITS/3 ML PEN 10 UNITS SC (17:17)
[2019-09-02] MEDS: Insulin Aspart 300 UNITS/3 ML PEN SC (17:17)
[2019-09-02 20:36] LABS: Magnesium 1.8 mg/dL (1.8-2.4); Potassium 3.9 mmol/L (3.5-5.1)
[2019-09-02] MEDS: Acetaminophen 325 MG TAB 650 MG PO (21:21)
[2019-09-02] MEDS: DULoxetine 30 MG CAP 60 MG PO (21:21)
[2019-09-02] MEDS: Metoprolol 25 MG TAB PO (21:22)
[2019-09-02] MEDS: busPIRone 15 MG TAB PO (21:22)
[2019-09-02] MEDS: Clotrimazole 1% 15 GM TUBE TP (21:22)
[2019-09-02] MEDS: Simvastatin 40 MG TAB PO (21:22)
[2019-09-02] MEDS: Budesonide/Formoterol 160/4.5 6 GM 60 PUFF INH IH (21:23)
[2019-09-02] MEDS: Insulin Glargine 300 UNITS/3 ML PEN 50 UNITS SC (22:00)
[2019-09-02] MEDS: MAGNESIUM SULFATE 1 GM/100 ML BAG IVPB (22:02)
[2019-09-02] MEDS: Potassium Chloride 20 MEQ TABCR PO (22:02)
[2019-09-02] MEDS: LORazepam 2 MG/ML VIAL 1 MG IVP (22:03)
[2019-09-03] VITALS (8 sets, daily range): BP systolic 102–141; BP diastolic 52–73; PULSE 64–75; RESP 19–25; TEMP 36.1–36.8; O2SAT 93–96
[2019-09-03] MEDS: Albuterol HFA 8 GM 60 PUFF INH IH ×2 (00:59→13:29)
[2019-09-03 06:35] LABS: Abs Immature Grans 0.02 k/cumm (0.0-0.09); Absolute Basophil Count 0.03 k/cumm (0.0-0.2); Absolute Eosinophil Count 0.26 k/cumm (0.0-0.7); Absolute Lymphocyte Count 1.43 k/cumm (1.2-3.4); Absolute Monocyte Count 0.57 k/cumm (0.11-0.7); Absolute Neutrophil Count 4.74 k/cumm (1.2-6.7); Basophils % 0.4; Eosinophils % 3.7; HGB 8.6 g/dL (12.0-15.5); Immature Grans % 0.3 %; Lymphocytes % 20.3; Mean Corp. HGB Concentration 28.7 g/dL (32.0-36.0); Mean Corpuscular Hemoglobin 22.1 pg (27.0-33.0); Mean Corpuscular Volume 76.9 fL (80-95); Mean Platelet Volume 10.3 fL (8.0-11.0); Monocytes % 8.1; Neutrophils % 67.2; Platelet Count 302 x1000/uL (130-400); RBC Distribution Width 18.2 % (11.7-14.6); White Blood Cell Count 7.05 k/cumm (4.4-10.8)
[2019-09-03 06:48] LABS: Anion Gap 8.2 mmol/L (3-11); BUN 23 mg/dL (7-18); CO2 27.8 mmol/L (21.0-32.0); CREATININE 1.04 mg/dL (0.55-1.02); Calcium 8.5 mg/dL (8.5-10.1); Chloride 103 mmol/L (98-107); Estimated GFR 53.18 (mL/min/1.73m2); Glucose 153 mg/dL (74-106); Potassium 4.1 mmol/L (3.5-5.1); Sodium 139 mmol/L (136-145)
[2019-09-03] MEDS: Pantoprazole 40 MG TABCR PO (07:06)
[2019-09-03] MEDS: Furosemide 40 MG/4 ML VIAL IVP (07:06)
[2019-09-03] MEDS: Normal Saline Flush 10 ML SYR IVP (07:09)
[2019-09-03] MEDS: Budesonide/Formoterol 160/4.5 6 GM 60 PUFF INH IH ×2 (07:45→19:51)
[2019-09-03 08:29] LABS: COVID-19 RT-PCR Result Negative
[2019-09-03] MEDS: Levothyroxine 50 MCG TAB PO (08:48)
[2019-09-03] MEDS: Ezetimibe 10 MG TAB PO (08:48)
[2019-09-03] MEDS: busPIRone 15 MG TAB PO ×2 (08:48→19:57)
[2019-09-03] MEDS: Metoprolol 25 MG TAB PO ×2 (08:48→19:58)
[2019-09-03] MEDS: Losartan 50 MG TAB PO (08:49)
[2019-09-03] MEDS: DULoxetine 30 MG CAP 60 MG PO ×2 (08:49→19:57)
[2019-09-03] MEDS: Enoxaparin 40 MG/0.4 ML SYR SC (08:50)
[2019-09-03] MEDS: Insulin Aspart 300 UNITS/3 ML PEN SC ×2 (08:50→12:02)
[2019-09-03] MEDS: Insulin Aspart 300 UNITS/3 ML PEN 10 UNITS SC ×3 (08:51→17:29)
[2019-09-03] MEDS: Clotrimazole 1% 15 GM TUBE TP ×2 (08:54→20:02)
--- NOTE | 2019-09-03 08:59 | DI.US_ITS ---
APPROVED REPORT EXAM: Comprehensive 2D, Doppler, and color-flow Echocardiogram Patient Location: In-Patient Room/Bed: [address] [employer] Repairer: Patito Ch RDCS (AE) Indications: Exacerbation of CHF, CAD Other Information Study Quality: Adequate. Technically limited study due to body habitus. Conclusion Left Ventricle : The left ventricle is normal size. Left ventricular systolic function is moderately decreased. Moderate concentric left ventricular hypertrophy. Regional wall motion abnormalities are n oted. LVEF is 40-45%. Right Ventricle : The right ventricle is normal size. The right ventricular systolic function is norm al. The RVSP is 32.8mmHg. Atria : Left atrium is mildly dilated. The right atrium size is normal. Aortic Valve : The Aortic valve is sclerotic. There is no aortic valvular stenosis. Mild aortic regur gitation. Mitral Valve : There is mitral annular calcification. No evidence of mitral valve stenosis. Moderate mitral regurgitation. Tricuspid Valve : The tricuspid valve is normal in structure. There is no tricuspid valve stenosis. M ild tricuspid regurgitation. Great Vessels : IVC is normal in size and collapses >50% with inspiration. Compared to echocardiogram dated 10/26/2016: There is no significant change. Wall motion Left Ventricle The left ventricle is normal size. Left ventricular systolic function is moderately decreased. Modera te concentric left ventricular hypertrophy. The posterior wall thickness is moderately increased. Reg ional wall motion abnormalities are noted. Diastolic function could not be evaluated. There is no josé manuel tricular septal defect visualized. LVEF is 40-45%. Right Ventricle The right ventricle is normal size. The right ventricular systolic function is normal. The RVSP is 32 .8mmHg. Atria Left atrium is mildly dilated. The right atrium size is normal. The interatrial septum is intact with no evidence for an atrial septal defect. Aortic Valve The Aortic valve is sclerotic. There is no aortic valvular stenosis. Mild aortic regurgitation. Mitral Valve There is mitral annular calcification. No evidence of mitral valve stenosis. Moderate mitral regurgit ation. Tricuspid Valve The tricuspid valve is normal in structure. There is no tricuspid valve stenosis. Mild tricuspid regu rgitation. Pulmonic Valve Pulmonic valve is not well visualized. There is no pulmonic valvular stenosis. Trace pulmonic regurgi tation. Great Vessels The aortic root is normal in size. The ascending aorta is mildly dilated. IVC is normal in size and c ollapses >50% with inspiration. Pericardium There is no pericardial effusion. There is no pleural effusion. 2D Dimensions IVSD d PLAX 1.27 cm F: 0.6-1.0 LV Vol A2C d MOD 182.6 mL LVPW d PLAX 1.32 cm F: 0.6 - 1.0 LV Vol A4C d MOD 158.6 mL LVID d PLAX 5.87 cm F: 3.8 - 5.2 LA vol/ BSA A2C s A-L 14.7 mL/m2 LVDs 4.85 cm F: 2.2 - 3.5 LA vol/ BSA A4C s A-L 42.7 mL/m2 Ao Root d 3.35 cm F: 2.7 - 3.3 LA Vol/ BSA Biplane s A-L 30.0 mL/m2 RA Area A4C 21.54 cm2 LA Area A4C s MOD 25.01 cm2 RA Vol/ BSA A4C s A-L 31.8 mL/m2 LA Area A2C s MOD 12.28 cm2 Ao Asc Diam d 3.61 cm F: 2.3 - 3.1 LV EF A4C MOD 43.5 % LV EF Teichholz 35.0 % LV EF A2C MOD 43.6 % LVEF (Carver's) 39.96 % F: 54 - 74 LV EF Biplane MOD 40.0 % LV Volume 131.22 mL F: 46 - 106 LV Volume Index 60.47 mL/m2 F: 29 - 61 LV Vol Biplane MOD 179.8 mL FS 17.00 % LV Diastology E/A Ratio 1.2 MV E Vmax 1.09 (0.4-1.3 m/s) MV A Vmax 0.90 (0.4-1.3 m/s) MV E/A Ratio 1.18 Aortic Valve LVOT Area 2.77 cm2 AoV Area Vmax 2.28 cm2 LVOT Vmax 1.35 m/s AoV Area/ BSA (Vmax) 1.05 cm2/m2 LVOT Mean Lavelle. 0.82 m/s ARTHUR Mean [place]elle. 2.19 cm2 LVOT Peak Grad 7.3 mmHg ARTHUR Mean [place]. Index 1.00 cm2/m2 LVOT Mean Grad 3.3 mmHg AR DT 1946 msec LVOT VTI 0.249 m AR PHT 564 msec LVOT Diam s 1.85 cm (M/F) 1.5-2.5 AoV Vmax 1.64 (0.5-1.3 m/s) Velocity Ratio 0.82 AoV Mean Lavelle. 1.04 m/s AoV Peak Grad 10.7 mmHg LVOT SV 68.84 mL AoV Mean Grad 5.2 (<5 mmHg) AoV VTI 0.259 (0.18-0.25 m) AoV Area VTI 2.66 (2.5-4.5 cm2) AoV Area/ BSA (VTI) 1.22 cm/m2 Mitral Valve MV DT 191 (160-240 msec) MR Vmax 5.52 m/s MV PHT 55 msec MR VTI 1.905 m MV Area PHT 3.98 cm2 MR Peak Grad 122.1 mmHg MR Mean Grad 78.1 mmHg MR PISA Radius 0.56 cm MR EROA 0.13 cm2 MR Aliasing Velocity 0.35 m/s MR PISA 2.00 cm2 Pulmonary Valve PV Vmax 1.16 (0.5-1.5 m/s) RVOT Peak Gr. 2.43 mmHg PV Peak Grad 5.4 mmHg RVOT Mean Gr. 1.15 mmHg PV Mean Grad 2.7 mmHg RVOT VTI 0.152 m PV VTI 0.263 m RVOT Vmax 0.78 m/s Tricuspid Valve TR Peak Grad 29.7 mmHg TR Vmax 2.73 m/s RA Pressure 3.00 mmHg RVSP (TR) 32.8 mmHg
--- NOTE | 2019-09-03 11:44 | PDOC.CMIN ---
- If Service Date Differs Date of service: 09/03/19 Time of Service: 11:44 Care Management Initial Assess REASON FOR HOSPITALIZATION:: Diarrhea, UTI, Hypokalemia PAST MEDICAL HISTORY/PAST SURGICAL HISTORY:: Medical History. Abdominal aortic aneurysm (Chronic 11/27/12). Identified 10/31/12 CT abd-pelvis; 4cm; stable 4.1 cm 07/2014 CT, 4.3cm 11/2016, 5.5cm [place] [place] Brennen Nava following; see 04/2016 progress note. Allergic rhinitis (Chronic 12/09/12). 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 Dr. Ward. Calculus of kidney and ureter (Resolved). Cardiomyopathy (Chronic). Dr Fair, EF 45% Jun 2014 ECHO (h/o much worse). 10/2016 ECHO: EF 40-45%. 10/2016 MPI: no acute, but persistent old infarct. Carpal tunnel syndrome (Resolved 08/14/12). resolved s/p b/l release. Chronic back pain (Chronic). History of chronic opioids, now none. Chronic kidney disease, stage III (moderate) (Chronic 08/14/12). Cortical atrophy R kidney on CT 07/2014; multiple cysts. COPD, mild (Chronic 07/02/17). PFTs. Coronary artery disease involving [place] coronary artery of [place] heart (Chronic). INFERIOR [place] 1996, 100% RCA occlusion; large inf defect on perfusion scan, dr Fair. Depressive disorder (Chronic 08/14/12). 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 Dr. Guerra. DJD of right shoulder (Chronic 01/01/13). 12/2012 x-ray severe DJD glenohumeral joint. Dr. Guerra; not a surgical candidate for replacement. Episode of seizures in July 2012 (Resolved). Esophageal reflux disease (Chronic 07/24/11). UPPER GI SERIES 11/14/2012, MOD HIATAL HERNIA SEVERE GERD. Headache (Chronic 08/31/13). Hypertension (Chronic). Hypothyroidism (Chronic). Incarcerated umbilical hernia (Resolved 09/06/15). Marijuana dependence (Chronic). Nausea and vomiting (Resolved 08/01/14). a. previous history of possible marijuana induced hyperemesis. Neurogenic bladder (Resolved 07/24/11). Does not need to self-cath. 11/2016: +Urinary retention [facility] inpt requiring cath; resolved by time of discharge. Nicotine dependence (Chronic). Obesity, unspecified (Chronic 07/24/11). Other and unspecified hyperlipidemia (Chronic 08/14/12). Spinal stenosis of lumbar region with neurogenic claudication (Chronic 12/08/13). 04/13/2013 MRI Lumbar Spine: Facet arthropathy, DJD, L4-5, L5-S1 central spinal and neural foraminal stenosis. Neurosurgery referral, but not a surgical candidate. [facility] chronic pain service. Chronic Pain. [facility] Pain Center consult 10/26/15. [facility] [place] [facility] consult [place]/04/17 (Sanket Sawant MD). 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 Neuro work-up . 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 Ambulates with cane when out; walker at home. 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 Goal A1c < 7.5%. Schein, neuropathy; Charcot's foot 03/19/13. [facility]. Surgical History. Appendectomy. Childhood surgery, no date given by pt.HE. Hemiarthroplasty (06/13/15). Dr Guerra. R shoulder. History of carpal tunnel release of both wrists (Acute ~05/2012). Hx of umbilical hernia repair (Inactive 09/06/15). Incarcerated umbilical hernia repair (09/06/15). Tonsillectomy. childhood surgery, no date given by pt.HE PREVIOUS FUNCTIONAL STATUS/SOCIAL/FAMILY SUPPORTS:: Carmel lives at home with her son, Ethan, in [facility]. 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 She has a disease case manager rn, Richa Stiles, through [facility] moderate needs. Ethan is her main support. She also identifies her two sisters as supportive. CURRENT FUNCTIONAL STATUS:: Carmel was sitting up on the side of her bed when met with her. She stated that she is not feeling well right now, which is why she is at [facility]. She stated that she has a disease case manager rn who is helping her get a bed at home currently because she has fallen out of her bed several times. She stated that her son helps her at home, but she is still independent her her ADL's. CM spoke to Elyse Thomas at [facility] who reported that they have been trying to outreach to Carmel, and that they do not believe she is med compliant. CM will recommend new HH RN for med management upon discharge. CM discussed admission paperwork and faxed signed paperwork to access. CM will continue to follow. ADVANCE DIRECTIVES:: None on file. Has patient been provided with information about the portal?: No Did the patient sign up for the portal?: No CODE STATUS:: Full Code INSURANCE COVERAGE / FINANCIAL ISSUES:: [facility]/ [facility] CURRENT HOME/COMMUNITY SERVICES/EQUIPMENT:: Carmel has [employer] moderate needs, currently only case management (Richa Stiles). Previously had home making, but declined recently because her son is home from work and takes care of the home. PRIMARY CARE PHYSICIAN:: Mai Castelan POTENTIAL DISCHARGE NEEDS:: Evaluations for further needs, follow up appointments, possible HH RN for med management. PATIENT/FAMILY EDUCATION NEEDS:: Review discharge instructions regarding activity levels and medications, discussion of self care needs and goals of care. ANTICIPATED BARRIERS TO DISCHARGE:: None identified at this time. TRANSPORTATION:: Anticipate she will transport via private vehicle driven by family. PLAN:: Anticipate Carmel will return home when medically cleared. She will be driven home by family in a private vehicle vs [facility]. She will resume her [employer] moderate needs, and may require new HH RN for med management. CM will continue to follow.
--- NOTE | 2019-09-03 11:48 | PT.INIE ---
Date of service: 09/03/19 Time of Service: 11:48 PT Notes Visit Reasons: Shortness of breath Physical Therapy Inpatient Initial Evaluation Date: 07/05/2019 Referring Doctor: Jaime Tate MD PT Orders: PT CONSULT: Limited ability Precautions: Fall. Standard. Activity as tolerated. On continuous 1 L of supplemental oxygen via [place]. Patient Profile/Admitting Diagnosis: Patient is a 64-year-old female who presented to the ED on 09/02/2019 with a chief presentation of shortness of breath with exertion cough, and lower extremity swelling. Patient did complain of having a head cold 2 to 3 weeks ago but tested negative for COVID-19 on 07/26/2019. Patient is diagnosed with congestive heart failure exacerbation and a microcytic anemia with COVID-19 retesting negative as of 09/02/2019 at 20 2:40 PM and verified on 09/03/2019 at 8:30 AM. PMHX: Medical History (Updated 09/02/19 @ 15:54 by Jaime Tate MD) Abdominal aortic aneurysm (Chronic 11/27/12) Identified 10/31/12 CT abd-pelvis; 4cm; stable 4.1 cm 07/2014 CT, 4.3cm 11/2016, 5.5cm 03/04/17 [place] [place] Brennen Nava following; see 04/2016 progress note. 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 Ward Calculus of kidney and ureter (Resolved) Cardiomyopathy (Chronic) Dr Fair, EF 45% Jun 2014 ECHO (h/o much worse) 10/2016 ECHO: EF 40-45% 10/2016 MPI: no acute, but persistent old infarct Carpal tunnel syndrome (Resolved 08/14/12) resolved s/p b/l release Chronic back pain (Chronic) History of chronic opioids, now none Chronic kidney disease, stage III (moderate) (Chronic 08/14/12) Cortical atrophy R kidney on CT 07/2014; multiple cysts COPD, mild (Chronic 07/02/17) PFTs Coronary artery disease involving [place] coronary artery of [place] heart (Chronic) INFERIOR [place] 1996, 100% RCA occlusion; large inf defect on perfusion scan, dr Fair Depressive disorder (Chronic 08/14/12) 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 Guerra DJD of right shoulder (Chronic 01/01/13) 12/2012 x-ray severe DJD glenohumeral joint Dr. Guerra; not a surgical candidate for replacement Episode of seizures in July 2012 (Resolved) Esophageal reflux disease (Chronic 07/24/11) UPPER GI SERIES 11/14/2012, MOD HIATAL HERNIA SEVERE GERD Headache (Chronic 08/31/13) Hypertension (Chronic) Hypothyroidism (Chronic) Incarcerated umbilical hernia (Resolved 09/06/15) Marijuana dependence (Chronic) Nausea and vomiting (Resolved 08/01/14) a. previous history of possible marijuana induced hyperemesis Neurogenic bladder (Resolved 07/24/11) Does not need to self-cath 11/2016: +Urinary retention [facility] inpt requiring cath; resolved by time of discharge Nicotine dependence (Chronic) Obesity, unspecified (Chronic 07/24/11) Other and unspecified hyperlipidemia (Chronic 08/14/12) Spinal stenosis of lumbar region with neurogenic claudication (Chronic 12/08/13) 04/13/2013 MRI Lumbar Spine: Facet arthropathy, DJD, L4-5, L5-S1 central spinal and neural foraminal stenosis Neurosurgery referral, but not a surgical candidate [facility] chronic pain service Chronic Pain [facility] Pain Center consult 10/26/15 [facility] [place] [facility] [place] 03/04/17 (Sanket Sawant MD) 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 work-up wchun +Hereditary, 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 She is independent with all ADL performance using a single-point cane indoors and a walker for outdoors. She states she has a walk-in shower and that she is independent with bathing and dressing activities. She is able to do simple meal preparation. Son helps with almost everything that she needs. She did not use oxygen supplementation before. Equipment Owned/DME: Front wheeled walker, single-point cane Subjective: Patient reports that she has started to quit smoking just this Saturday. She reports that she has rolled off the bed that she recently purchased from a local furniture store. She she states she has not fallen in the past 12 months. She does report that she feels weak in both of her legs and does not feel safe. She is agreeable to the consult. She denies any headache, chest pain, and dizziness during this session. Objective: General Observation: Obese. Telemetry monitoring in place. IV access in left UE seen. Mental Status: Alert and oriented x4 Pain: Complained of minimal pain and discomfort on left elbow ROM: Right Upper Extremity: Shoulder Flexion allows up to 90 degrees. Shoulder abduction allows up to 90 degree. Elbow flexion WFL. Wrist flexion WFL. Opening and closing of hand WFL. Left Upper Extremity: Shoulder Flexion allows up to 120 degrees. Shoulder abduction allows up to 100 degrees. Elbow flexion WFL. Wrist flexion WFL. Opening and closing of hand WFL. Right Lower Extremity: Hip flexion 20 degrees past 90 while seated on chair. Hip abduction WFL. Knee flexion WFL. Knee extension -10 degrees. Ankle dorsiflexion WFL. Ankle plantarflexion WFL. Left Lower Extremity: Hip flexion 20 degrees past 90 while seated on chair. Hip abduction WFL. Knee flexion WFL. Knee extension -10 degrees. Ankle dorsiflexion WFL. Ankle plantarflexion WFL. Strength: Right Upper Extremity: Shoulder flexors 3-/5. Shoulder abductors 3-/5. Elbow flexors 4-/5. Elbow extensors 4-/5. Mannequin Decorator strong. Left Upper Extremity: Shoulder flexors 3-/5. Shoulder abductors 3-/5. Elbow flexors 4-/5. Elbow extensors 4-/5. Mannequin Decorator strong. Right Lower Extremity: Hip flexors 3-/5. Hip abductors 3+/5. Knee flexors 3+/5. Knee extensors 3-/5. Ankle dorsiflexors 3-/5. Ankle plantarflexors 3-/5. Left Lower Extremity: Hip flexors 3-/5. Hip abductors 3+/5. Knee flexors 3+/5. Knee extensors 3-/5. Ankle dorsiflexors 3-/5. Ankle plantarflexors 3-/5. Sensation: Intact as to pain and pressure on bilateral lower extremities. Bed Mobility/Transfers: Rolling minimal assist Supine to sit minimal assist with HOB to 45 degrees Sit to stand from edge of bed contact-guard assist with the bed positioned high Stand to sit on to bedside recliner contact-guard assist with minimal cueing provided for hand placement for support Bed to chair contact-guard assist needing the use of BUE for support with minimal cueing for safety Chair to bed contact-guard assist needing the use of BUE for support with minimal cueing for safety Gait: Patient was able to tolerate 6 to 8 feet short distance ambulation from bedside to recliner chair using front wheeled walker with CGA of PT. Step-to gait pattern seen. Decreased step height and length. Decreased monica. Patient complained of both legs being weak. Balance: Static Sitting: Good Dynamic Sitting: Good Static Standing: Fair Dynamic Standing: Fair Special Tests: Mobility Limitations Standardized Measure [facility]-PAC 6 clicks Basic Mobility Inpatient Short Form: Raw Score: 17 CMS Score: 51% deficit Informed Consent/Education: Patient instructed in purpose of PT consult and plan of care. Assessment: Functional mobility decline, instability with gait, generalized body weakness, pain from arthritis, and need for an assistive device for all ADL performance have resulted from current diagnoses and co-morbid conditions. Patient presents with clinical signs and symptoms consistent with current/admitting diagnoses that have resulted to mobility limitations, gait instability, generalized weakness, and impairment of motor control as demonstrated by the following impairment level findings: 1. Decreased strength to B UE/LE major muscle groups 2. Impaired sitting/standing balance 3. Impaired activity tolerance 4. Need for oxygen supplementation at all times Impairments are contributing to the following functional limitations: 1. Dependent bed mobility skills 2. Increased dependence with transfers 3. Inability to safely ambulate without assistive device and physical assistance 4. Increase completion time for mobility ADL performance 5. Increased fall risk 6. Inability to negotiate steps alone safely Patient is assessed as a 21079 moderate complexity based on the following: History: 64-year-old female with impairment level findings, functional limitations, and past medical history as listed above Examination: Demonstrable impairment in strength, balance, and activity tolerance with underlying impairments and functional limitations as documented above Presentation: Evolving Decision Makin moderate complexity Goals: Goals X1 week 1. Supine-Sit independent 2. Sit-Supine independent 3. Sit-Stand independent 4. Stand-Sit independent 5. Bed-Chair independent 6. Chair-Bed independent 7. Independent gait on level surface with use of least restrictive device for at least 300 feet without report of pain nor dyspnea 8. Independent stair negotiation while holding onto bilateral rails for at least 5 steps without report of pain nor dyspnea 9. Independent with home exercise program 10. Good static and dynamic standing balance/tolerance Plan of Care/Treatment Plan: 1-2x/day, 7 days/week x 1 week. Initiate Physical Therapy intervention for strengthening, bed mobility, transfers, gait, stairs, balance training, use of assistive device. DISCHARGE RECOMMENDATIONS: Patient will benefit from home health PT services in order to progress mobility level using least restrictive assistive ambulatory device, assess home safety, identify additional equipment needs, and establish a functional maintenance program that will increase ability of patient to remain at home. TREATMENT CODE/TIME: 9716 2 x 32 minutes beginning at 11:48 AM. Thank you very much for this referral. Alison Onofre PT, DPT, CLT [facility] [place], [place]
[2019-09-03] MEDS: Ferrous Gluconate 324 MG TAB PO ×2 (12:01→19:57)
--- NOTE | 2019-09-03 12:03 | W.PM.PROGNOT ---
Date of Service Date of service: 09/03/19 Time of Service: 11:00 Assessment and Plan Assessment and plan (1) CHF exacerbation: Status: Acute Assessment and plan: Subjectively a little better with regard to edema, not much difference in terms of exercise tolerance and shortness of breath. Good response to IV furosemide in terms of diuresis. Echocardiogram unchanged from 2017 with LVEF mildly impaired 40 to 45% and moderate mitral insufficiency. Continue IV bolus diuretic treatment for at least another day before transitioning to oral loop diuretic, probably back on her outpatient dose of torsemide to see if consistent use of this medication will prevent exacerbation of CHF. Continue telemetry monitoring for another 24 hours and if no dysrhythmias will discontinue at that point. (2) Type II diabetes mellitus with neurological manifestations: Status: Chronic Assessment and plan: Blood sugars have responded to hospital and post diet?which she is finding to be insufficient in terms of quantity?and insulin at lower than outpatient doses. Continue to monitor blood sugars and adjust insulin dose depending on results. (3) Esophageal reflux disease: Status: Chronic Assessment and plan: No further dyspepsia. I suspect she may have an upper GI bleeding source is the cause of her low iron anemia as noted below. Continue PPI. She is not interested in any invasive testing at this time. Awaiting suitable stool sample to check for blood. (4) Coronary artery disease involving [place] coronary artery of [place] heart: Status: Chronic Assessment and plan: No anginal chest pain. Troponins flat. No dysrhythmias. Continue beta-gerry, ARB, statin and ezetimibe. No aspirin with dropping hemoglobin and concern for upper GI source of bleeding. (5) Chronic kidney disease, stage III (moderate): Status: Chronic Assessment and plan: Stable BUN and creatinine thus far with efforts at diuresis. Good urine output. Continue to monitor. (6) COPD, mild: Status: Chronic Assessment and plan: I think it is unlikely this is adding much to her current symptoms. Continue current inhalers. (7) Chronic back pain: Status: Chronic Assessment and plan: No significant change for better or worse. NSAIDs contraindicated. Symptom treatment with acetaminophen, local heat or cold as tolerated. (8) Hypertension: Status: Chronic Assessment and plan: Follow on outpatient meds plus efforts at diuresis. (9) Tinea corporis: Status: Acute Assessment and plan: Mild involvement, submammary. Topical Chlortrimazole. (10) Iron deficiency anemia: Status: Acute Assessment and plan: Heme test stool when she has suitable sample. Start on oral replacement. Continue PPI. Does not wish to have invasive testing (endoscopy). Follow blood counts. (11) Nicotine dependence: Status: Chronic Assessment and plan: Remains motivated to quit although having some cravings. Nicotine replacement in the form of nicotine inhaler. (12) COVID-19 ruled out: Status: Acute Assessment and plan: Test has returned negative. (13) Physical deconditioning: Status: Chronic Assessment and plan: Longstanding habit of sedentary existence. PT consult to try to improve safe transfers and mobility. Subjective Subjective Interval history since last seen: Unimpressed that her breathing is much different, leg swelling is less. Still dyspneic transferring. Feels generally weak. Craving smoking but does not want to smoke and is motivated to quit. Complains about insufficient food and would like larger portions. Blood sugars have been in the mid to upper 100 range on her insulin. We do not have Victoza on formulary. COVID test has returned negative. Dyspepsia has resolved. She had EGD in 2013 showing hiatal hernia but not much more. She has intermittently been taking a PPI, perhaps the reason for her increased dyspepsia. Has noted to have worsening anemia on admission that has dropped further overnight. Only stool sample was mixed with urine and could not be tested for blood. No obvious melena or gross blood per rectum. No dysphagia. Reports that hip and back pain wax and wane but no different from her usual. Telemetry has shown sinus rhythm in the 60s to 70s with occasional PVCs. Exam Narrative Exam Narrative: Room darkened at her preference. No acute respiratory distress. Affect a bit flat. Sclera clear. Cannot see neck veins because of neck size. Lungs have some inspiratory crackles in the right lower lung field diminished breath sounds on the left no wheezing. Good aeration in the upper anterior lung aleman. Heart rhythm regular no murmur S3 or S4. Abdomen obese active bowel sounds no tenderness. Edema in the lower extremities has decreased some, now 1+ in the mid sutton 2-3+ in the feet. Feet are warm. Objective Objective Clinical Data: Abnormal lab results 09/02/19 09/02/19 09/03/19 Range/Units 11:05 11:50 06:08 RBC (4.00-5.20) m/cumm Hgb (12.0-15.5) g/dL Hct (36.0-46.0) % MCV (80-95) fL MCH (27.0-33.0) pg MCHC (32.0-36.0) g/dL RDW (11.7-14.6) % BUN 23 H (7-18) mg/dL Creatinine 1.04 H (0.55-1.02) mg/dL Glucose 153 H (74-106) mg/dL Iron 31 L (50-170) ug/dL Transferrin % Sat 8 L (15-50) % Urine Protein 30 H (Negative) mg/dL Urine Blood Trace-intact H (Negative) Ur Leukocyte Esterase Small H (Negative) 09/03/19 Range/Units 06:08 RBC 3.90 L (4.00-5.20) m/cumm Hgb 8.6 L (12.0-15.5) g/dL Hct 30.0 L (36.0-46.0) % MCV 76.9 L (80-95) fL MCH 22.1 L (27.0-33.0) pg MCHC 28.7 L (32.0-36.0) g/dL RDW 18.2 H (11.7-14.6) % BUN (7-18) mg/dL Creatinine (0.55-1.02) mg/dL Glucose (74-106) mg/dL Iron (50-170) ug/dL Transferrin % Sat (15-50) % Urine Protein (Negative) mg/dL Urine Blood (Negative) Ur Leukocyte Esterase (Negative) Vital Signs Temperature 36.8 C 09/03/19 07:33 Temperature Source Tympanic 09/03/19 07:33 Pulse 69 09/03/19 07:33 Pulse Rhythm Regular 09/03/19 09:54 Pulse 104 H 09/02/19 14:20 Respiratory Rate 20 09/03/19 07:33 Respiratory Effort Accessory Muscle Use 09/03/19 09:54 Respiratory Depth Deep 09/03/19 09:54 Respiratory Pattern Tachypnea 09/03/19 09:54 Blood Pressure 141/68 H 09/03/19 07:33 Blood Pressure Mean 75 09/02/19 14:50 Blood Pressure Position Sitting 09/02/19 14:50 Pulse Oximetry 96 09/03/19 07:48 Oxygen Delivery Method Room Air 09/03/19 07:48 Oxygen Flow Rate 0 09/03/19 07:48 Pain Level 6 09/03/19 07:33 Intake & Output 09/02/19 09/03/19 09/03/19 23:59 11:59 23:59 Intake Total 414 / 414 Output Total 2700 / 2700 2176 / 2176 Balance -2286 / -2286 -2162 / -2162 Weight 109.3 kg 108.3 kg Intake: IV Oral 400 / 400 Output: Urine 2700 / 2700 2175 / 2175 Stool Other: Urine Color Pale Yellow Urine Appearance Clear Clear Urine Odor Normal None Comment After 3x up to BSC w/o urine output. Stool Occult Blood Negative Stool Size Small Small Stool Characteristics Hard Soft Brown Voiding Methods Bedside Commode Bedside Commode Laboratory Results WBC 7.05 k/cumm (4.4-10.8) 09/03/19 06:08 RBC 3.90 m/cumm (4.00-5.20) L 09/03/19 06:08 Hgb 8.6 g/dL (12.0-15.5) L 09/03/19 06:08 Hct 30.0 % (36.0-46.0) L 09/03/19 06:08 MCV 76.9 fL (80-95) L 09/03/19 06:08 MCH 22.1 pg (27.0-33.0) L 09/03/19 06:08 MCHC 28.7 g/dL (32.0-36.0) L 09/03/19 06:08 RDW 18.2 % (11.7-14.6) H 09/03/19 06:08 Plt Count 302 x1000/uL (130-400) 09/03/19 06:08 MPV 10.3 fL (8.0-11.0) 09/03/19 06:08 Immature Gran % 0.3 % 09/03/19 06:08 Neutrophils % 67.2 09/03/19 06:08 Lymphocytes % 20.3 09/03/19 06:08 Monocytes % 8.1 09/03/19 06:08 Eosinophils % 3.7 09/03/19 06:08 Basophils % 0.4 09/03/19 06:08 Absolute Neutrophils 4.74 k/cumm (1.2-6.7) 09/03/19 06:08 Absolute Lymphocytes 1.43 k/cumm (1.2-3.4) 09/03/19 06:08 Absolute Monocytes 0.57 k/cumm (0.11-0.7) 09/03/19 06:08 Absolute Eosinophils 0.26 k/cumm (0.0-0.7) 09/03/19 06:08 Absolute Basophils 0.03 k/cumm (0.0-0.2) 09/03/19 06:08 Differential Comment Diff reviewed 09/02/19 11:05 RBC Morphology See below 09/02/19 11:05 Hypochromasia 2+ 09/02/19 11:05 Poikilocytosis 1+ 09/02/19 11:05 Microcytosis 1+ 09/02/19 11:05 PT 10.0 sec (9.3-11.0) 09/02/19 11:05 INR 1.0 (0.9-1.1) 09/02/19 11:05 APTT 25.2 sec (21.0-31.4) 09/02/19 11:05 VBG pH 7.43 (7.35-7.45) 09/02/19 11:05 VBG pCO2 43 mm/Hg (34-47) 09/02/19 11:05 VBG pO2 65 mm/Hg (28-44) H 09/02/19 11:05 VBG HCO3 28 mmol/L (22-28) 09/02/19 11:05 VBG Total CO2 27 mmol/L (22-29) 09/02/19 11:05 VBG O2 Saturation 93 % (70-80) H 09/02/19 11:05 VBG Base Excess 4.0 mmol/L (-3-3) H 09/02/19 11:05 Sodium 139 mmol/L (136-145) 09/03/19 06:08 Potassium 4.1 mmol/L (3.5-5.1) 09/03/19 06:08 Chloride 103 mmol/L (98-107) 09/03/19 06:08 Carbon Dioxide 27.8 mmol/L (21.0-32.0) 09/03/19 06:08 Anion Gap 8.2 mmol/L (3-11) 09/03/19 06:08 BUN 23 mg/dL (7-18) H 09/03/19 06:08 Creatinine 1.04 mg/dL (0.55-1.02) H 09/03/19 06:08 Estimated GFR/1.73 m2 53.18 (mL/min/1.73m2) 09/03/19 06:08 Glucose 153 mg/dL (74-106) H 09/03/19 06:08 Calcium 8.5 mg/dL (8.5-10.1) 09/03/19 06:08 Magnesium 1.8 mg/dL (1.8-2.4) 09/02/19 20:05 Iron 31 ug/dL (50-170) L 09/02/19 11:05 TIBC 409 ug/dL (250-450) 09/02/19 11:05 Transferrin % Sat 8 % (15-50) L 09/02/19 11:05 Total Bilirubin 0.4 mg/dL (0.2-1.0) 09/02/19 11:05 AST 34 U/L (15-37) 09/02/19 11:05 ALT 41 U/L (14-59) 09/02/19 11:05 Alkaline Phosphatase 154 U/L (46-116) H 09/02/19 11:05 Troponin I < 0.05 ng/Ml (<0.06) 09/02/19 14:25 NT-Pro-B Natriuret Pep 1511 pg/mL (<300) H 09/02/19 11:05 Total Protein 7.2 g/dL (6.4-8.2) 09/02/19 11:05 Albumin 3.4 g/dL (3.4-5.0) 09/02/19 11:05 Urine Color Yellow (Yellow) 09/02/19 11:50 Urine Clarity Sl cloudy (Clear) 09/02/19 11:50 Urine pH 7.0 (5-8) 09/02/19 11:50 Ur Specific [place] 1.025 (1.005-1.025) 09/02/19 11:50 Urine Protein 30 mg/dL (Negative) H 09/02/19 11:50 Urine Ketones Negative mg/dL (Negative) 09/02/19 11:50 Urine Blood Trace-intact (Negative) H 09/02/19 11:50 Urine Nitrite Negative (Negative) 09/02/19 11:50 Urine Bilirubin Negative (Negative) 09/02/19 11:50 Urine Urobilinogen 0.2 EU/dL (Up TO 0.2) 09/02/19 11:50 Ur Leukocyte Esterase Small (Negative) H 09/02/19 11:50 Urine RBC 0-2 HPF (0-2) 09/02/19 11:50 Urine WBC 0-2 HPF (0-5) 09/02/19 11:50 Ur Epithelial Cells Many HPF (Negative) 09/02/19 11:50 Urine Crystals Negative HPF (Negative) 09/02/19 11:50 Urine Bacteria Negative HPF (Negative) 09/02/19 11:50 Urine Casts Negative LPF (Negative) 09/02/19 11:50 Urine Mucus Negative (Negative) 09/02/19 11:50 Urine Other Few renal (Negative) 09/02/19 11:50 Ur Culture Indicated? No/sq. contamination 09/02/19 11:50 Urine Glucose Negative mg/dL (Negative) 09/02/19 11:50 Nasopharyn COVID-19 PCR Negative 09/02/19 12:44 COVID testing negative. Echocardiogram with LVEF 40 to 45%, moderate mitral insufficiency. Unchanged from echo from 2017. Blood cultures no growth.
--- NOTE | 2019-09-03 13:00 | PT.INTREAT ---
Date of service: 09/03/19 Time of Service: 13:00 PT Notes Visit Reasons: Shortness of breath Inpatient Physical Therapy Treatment Note [facility] Date: 09/03/2019 PRECAUTIONS: Fall. Standard. Activity as tolerated. On continuous oxygen at 1 L/min via NC. SUBJECTIVE: Patient complains of shortness of breath and did not want to do a lot for the afternoon session. She indicated that she feels more fatigued this afternoon than she did a little before lunch. She requested for assistance with using the bedside commode. OBJECTIVE: Oxygen supplementation at 1 L/min via NC. PAIN: None reported. Bed Mobility/Transfers: Rolling minimal assist Supine to sit minimal assist with HOB to 45 degrees Sit to stand from edge of bed contact-guard assist with the bed positioned high Stand to sit on to bedside commode contact-guard assist with minimal cueing provided for hand placement for support Bed to bedside commode contact-guard assist needing the use of BUE for support with minimal cueing for safety Bedside commode to bed contact-guard assist needing the use of BUE for support with minimal cueing for safety GAIT Assistive Device: Front wheeled walker Weight bearing: Full weight bearing Assist: CGA Distance: 10 feet Deviation: Mild S OB seen. Decreased monica. Reported more fatigued for this session than she did a little before lunch. Oxygen saturation between 90 to 93% on room air. VITALS: Oxygen saturation between 90 to 93% on room air. THEREX: Patient refused exercises for this afternoon but is agreeable to doing them tomorrow morning instead. ASSESSMENT: Patient appears visibly more breathless despite good oxygen saturation on 1 L/min of oxygen. She demonstrates functional mobility decline and increased risk for falls at this time and will highly benefit from skilled physical therapy services in anticipation of return to home once medically cleared. PLAN: Continue with initially established PT POC to achieve goals. TREATMENT CODE/TIME: 9753 0 x 25 minutes beginning at 13:00 PM.
--- NOTE | 2019-09-03 15:26 | PHACLINREV_ITS ---
Pharmacy Admission Review - Admission Clinical Review (Last Updated 09/03/19 @ 12:21 by Jaime Tate MD) COVID-19 ruled out (Acute) Iron deficiency anemia (Acute) Microcytic anemia (Acute) Tinea corporis (Acute) CHF exacerbation (Acute) Acute dyspnea (Acute) bupropion HCl [From Wellbutrin] Allergy (Severe, Verified 09/02/19 11:07) seizures carvedilol [From Coreg] Allergy (Mild, Verified 09/02/19 11:07) Itching morphine Adverse Reaction (Unknown, Verified 09/02/19 11:07) nausea Weight 108.3 kg SOB, CHR EXACERBATION,HEART FAILURE, COVID-19 NEGATIVE - Renal Dosing Renal Dosing: BUN 23 mg/dL (7-18) H 09/03/19 06:08 Creatinine 1.04 mg/dL (0.55-1.02) H 09/03/19 06:08 Medications needing adjustments: Reviewed (CrCl~52ml/min) - Anticoagulation Anticoagulation: Hgb 8.6 g/dL (12.0-15.5) L 09/03/19 06:08 Hct 30.0 % (36.0-46.0) L 09/03/19 06:08 Plt Count 302 x1000/uL (130-400) 09/03/19 06:08 INR 1.0 (0.9-1.1) 09/02/19 11:05 Creatinine 1.04 mg/dL (0.55-1.02) H 09/03/19 06:08 DVT Prohphylaxis: Reviewed Medications: Enoxaparin Therapeutic Anticoagulation: N/A - Opiate Usage Evaluate Pain Scale/Pains Meds: N/A (Chronic pain, managed with Acetaminophen only) - Relevant Labs Sodium 139 mmol/L (136-145) 09/03/19 06:08 Potassium 4.1 mmol/L (3.5-5.1) 09/03/19 06:08 Chloride 103 mmol/L (98-107) 09/03/19 06:08 Magnesium 1.8 mg/dL (1.8-2.4) 09/02/19 20:05 Electrolytes, C-Reactive P, ESR: Reviewed (Probnp 1511 on admission, chonic anemia) - DM Control DM Control: Glucose 153 mg/dL (74-106) H 09/03/19 06:08 Finger Stick Blood Glucose 176 Finger Stick Blood Glucose 176 Finger Stick Blood Glucose 176 Finger Stick Blood Glucose 175 Finger Stick Blood Glucose 175 Finger Stick Blood Glucose 175 Insulin Dosing: Reviewed (Novolog/Lantus-poor med compliance at home, not well controlled) - Heart Failure/NV Heart Failure/NV: Troponin I < 0.05 ng/Ml (<0.06) 09/02/19 14:25 NT-Pro-B Natriuret Pep 1511 pg/mL (<300) H 09/02/19 11:05 EF%, ERNIE's, B-Blockers, Diuretics: Reviewed (Lasix 1x order, Losartan, Metoprolol) - BP Control BP Control: Blood Pressure 128/72 Blood Pressure 141/68 Blood Pressure 132/73 If elevated: Reviewed - Qtc Review If Elevated: Reviewed (QTC 451-Abnormal EKG) List meds needing interventions: Potential QTC prolongation meds: Cymbalta, Symbicort - Home Meds Home Med List reviewed: Reviewed Relevent Home Meds Not ordered & why?: Diclofenac topical gel, topical Triamcinolone, Mucinex, Victoza, medical THC. Finasteride (from ). Naproxen-contraindicated w/CAD. Spironolactone & Torsemide-rec'd a dose of Lasix in ED - Comments Comments/Follow Ups: c/o ear pain-does not have Otitis Media, more SOB this afternoon-Added Combivent respimat, Albuterol prn in addition to Symbicort. EF 40-45%. Follow diuresis, currently only getting 1x orders, weight down 1kg overnight. Has Lorazepam and Gabapentin prn orders for leg cramps. Micro b lood: no growth x24h. Iron supplement for anemia, Nicotine replacement, Covid- 19 negative
[2019-09-03] MEDS: Ipratropium/Albuterol 4 GM 120 PUFF INH IH ×2 (15:40→19:53)
--- NOTE | 2019-09-03 16:29 | CHAPLAIN ---
Carmel was sitting on the edge of her bed when I visited. She asked me for a cigarette. She said she would like to quit and hopes she can while she's here. I let her [place] know that she's interested. I explained my role and offered support.
[2019-09-03] MEDS: Simvastatin 40 MG TAB PO (19:57)
[2019-09-03] MEDS: Insulin Glargine 300 UNITS/3 ML PEN 50 UNITS SC (21:30)
[2019-09-04] VITALS (10 sets, daily range): BP systolic 96–122; BP diastolic 53–75; PULSE 61–74; RESP 18–24; TEMP 35.9–37; O2SAT 88–96
[2019-09-04] MEDS: Levothyroxine 50 MCG TAB PO (05:45)
[2019-09-04 06:45] LABS: HCT 31.4 % (36.0-46.0); HGB 9.1 g/dL (12.0-15.5); Mean Corpuscular Hemoglobin 22.4 pg (27.0-33.0); Mean Corpuscular Volume 77.1 fL (80-95); Mean Platelet Volume 10.1 fL (8.0-11.0); Platelet Count 327 x1000/uL (130-400); RBC 4.07 m/cumm (4.00-5.20); RBC Distribution Width 18.1 % (11.7-14.6); White Blood Cell Count 7.93 k/cumm (4.4-10.8)
[2019-09-04 06:49] LABS: Anion Gap 5.7 mmol/L (3-11); BUN 24 mg/dL (7-18); CO2 29.3 mmol/L (21.0-32.0); CREATININE 1.14 mg/dL (0.55-1.02); Calcium 8.7 mg/dL (8.5-10.1); Chloride 102 mmol/L (98-107); Estimated GFR 47.84 (mL/min/1.73m2); Glucose 157 mg/dL (74-106); Potassium 4.3 mmol/L (3.5-5.1); Sodium 137 mmol/L (136-145)
[2019-09-04] MEDS: Enoxaparin 40 MG/0.4 ML SYR SC (07:38)
[2019-09-04] MEDS: DULoxetine 30 MG CAP 60 MG PO ×2 (07:39→20:37)
[2019-09-04] MEDS: Ferrous Gluconate 324 MG TAB PO ×2 (07:39→20:37)
[2019-09-04] MEDS: busPIRone 15 MG TAB PO ×2 (07:39→20:37)
[2019-09-04] MEDS: Pantoprazole 40 MG TABCR PO (07:39)
[2019-09-04] MEDS: Metoprolol 25 MG TAB PO ×2 (07:39→20:37)
[2019-09-04] MEDS: Losartan 50 MG TAB PO (07:39)
[2019-09-04] MEDS: Ezetimibe 10 MG TAB PO (07:39)
[2019-09-04] MEDS: Clotrimazole 1% 15 GM TUBE TP ×2 (07:40→20:39)
[2019-09-04] MEDS: Insulin Aspart 300 UNITS/3 ML PEN 10 UNITS SC ×3 (07:42→17:09)
[2019-09-04] MEDS: Insulin Aspart 300 UNITS/3 ML PEN SC ×2 (07:44→12:12)
[2019-09-04] MEDS: Torsemide 20 MG TAB PO (09:40)
[2019-09-04] MEDS: Budesonide/Formoterol 160/4.5 6 GM 60 PUFF INH IH ×2 (09:40→20:38)
[2019-09-04] MEDS: Ipratropium/Albuterol 4 GM 120 PUFF INH IH ×4 (09:41→20:38)
--- NOTE | 2019-09-04 10:34 | DI.CT_ITS ---
EXAM: CT NECK W CLINICAL HISTORY: right parotid mass, ear pain X months. TECHNIQUE: Imaging Protocol: Axial computed tomography images with coronal and sagittal reformatted images were created and reviewed CONTRAST MATERIAL: Intravenous: Omnipaque 350 Contrast volume:100 ml contrast route:IV - COMPARISON: CTA THORAX/ABDOMEN/PELVIS from 04/01/2017 XR PORTABLE CHEST AP from 09/02/2019 FINDINGS: Parotid glands: The parotids are normal in size and show normal overall attenuation. In the right par otid, there is a 1.6 centimeter in maximal dimension smoothly marginated ovoid nodule in the posterio r aspect of the superficial lobe. It shows homogeneous enhancement. An additional smaller similar christiano earing nodule is seen more inferiorly mid measuring 8 millimeters. The left lobe shows a 1.9 by 1.1 c entimeter circumscribed homogeneous lesion posterior to the mandible. There is an additional 4 millim eter lesion inferiorly in the left parotid. Submandibular/thyroid gland: Normal. Lymphadenopathy: There is scattered lymph nodes seen along the level one to level three all measurin g less than 8 mm in short axis diameter which are physiologic in nature. Carotids/Jugular: There is calcific plaque at the common carotid bulbs but no significant stenosis.. Soft tissues: The floor the mouth is unremarkable. The epiglottis and vocal cords are within normal limits. Images through both lung apices show respiratory motion. Bones: Advanced degenerative changes are seen in the cervical spine. Sinuses: A mucous retention cyst is seen at the floor of the left maxillary sinus. The mastoid air cells appear clear. IMPRESSION: Small bilateral circumscribed homogeneous parotid masses. The findings could represent or thin tumor s, benign mixed tumors or less likely enlarged intraparotid lymph nodes or adenoid cystic carcinoma. RADIATION DOSE DELIVERED: Total DLP DATA REPOSITORY: All CT scans at this facility are submitted to the National Radiology Data Registry (NRDR) Dose Index Registry (DIR) with the [employer] (ACR). RADIATION OPTIMIZATION: All CT scans at this facility use at least one of these dose optimization te chniques: automated exposure control; mA and/or kV adjustment per patient size (includes targeted exa ms where dose is matched to clinical indication); or iterative reconstruction.
[2019-09-04] MEDS: Omnipaque 350 MG/ML 100 ML BTL IJ (11:33)
[2019-09-04] MEDS: Normal Saline - Diluent 50 ML VIAL IV (11:34)
--- NOTE | 2019-09-04 13:29 | PDOC.CMPRO ---
- If Service Date Differs Date of service: 09/04/19 Time of Service: 13:29 Care Management Progress Note S/O: Carmel is lying in bed watching television when CM comes to meet with her. She easily engages in conversation. She advises physical therapy came to work with her earlier this afternoon and that went well. She states she ambulates at home with either a cane or a FWW and shares she enjoys going outside and feeding the birds. She is looking forward to returning home and hopes to be discharged from the hospital tomorrow. CM will continue to follow. A: Carmel is a 64 year old female admitted to [facility] on 09/02/2019 for shortness of breath. P: Carmel will return home with new Home Health nursing services and a resumption of [facility] moderate needs when medically cleared by provider. She will follow up with her PCP and plan of care as directed. Transport home will be via private vehicle with family. If family is not available at time of discharge, CM will need to coordinate RCT transport. CM will continue to support patient and discharge planning needs.
--- NOTE | 2019-09-04 13:30 | W.NUTCONSULT ---
Date of service: 09/04/19 Time of Service: 13:30 Nutritional Consult ASSESSMENT: 64 year old female admitted with CHF, SOB. PMH: DM2, COPD, HTN. Following Diabetic Diet with adequate intake (>75%). Most recent A1C (03/03/19 A1C:9.2%) indicates poorly controlled diabetes. BS while hospitalized well controlled (<180 mg/dl) BMI 36 indicates class 2 obesity. Carmel declined weight management/diabetes education. Will be available prn. INTERVENTION: Diabetic Diet MONITORING AND EVALUATION: weight, po intake, labs Time Spent in Nutritional Counseling and Treatment: 10 min spent face to face
--- NOTE | 2019-09-04 14:06 | PT.INTREAT ---
Date of service: 09/04/19 PT Notes Visit Reasons: Shortness of breath Inpatient Physical Therapy Treatment Note [facility] Date: 09/04/2019 PRECAUTIONS: Fall. Standard. Activity as tolerated. On continuous oxygen at 1 L/min via NC. SUBJECTIVE: Patient continues to complain of having difficulty with breathing. She was agreeable to putting nasal cannula back on as it was found tangled around her arm. She was also agreeable to doing a short PT session before she goes to testing for CT of her neck. Later in the afternoon, patient insisted that she did not want to do any out of bed activities despite education regarding benefits of consistent ambulation activity. OBJECTIVE: Oxygen supplementation at 1 L/min via NC. PAIN: None reported. Bed Mobility/Transfers: Rolling minimal assist Supine to sit minimal assist with HOB to 45 degrees Sit to stand from edge of bed contact-guard assist with the bed positioned high Stand to sit on to wheelchair contact-guard assist with minimal cueing provided for hand placement for support Bed to wheelchair contact-guard assist with minimal cueing provided for hand placement for support GAIT Assistive Device: Front wheeled walker Weight bearing: Full weight bearing Assist: CGA Distance: 10 feet. In the afternoon patient was only agreeable to doing 2-3 steps to transfer from bedside commode back into bed. Deviation: Mild SOB seen. Decreased monica. Reported more fatigued for this session than she did a little before lunch. Oxygen saturation between 90 to 93% on room air. VITALS: Oxygen saturation between 90 to 93% on room air. THEREX: Patient was only agreeable to doing low intensity exercises after extensive encouragement. She tolerated ankle dorsiflexion and plantarflexion x20, quadriceps setting x10, and glutes setting x10 with report of fatigue at the end of activity. Oxygen saturation ranged from 89% through night 93% on 1 L/min and a heart rate ranging from 67 bpm through 99 bpm. ASSESSMENT: Patient's nasal cannula may have repeatedly been inadvertently removed from her nose as she moves about in bed contributing to her continued shortness of breath. Motivation to participate is low. She continues to demonstrate decreased activity tolerance affecting her mobility ADL performance. She remains weak in her B LE. She will continue to benefit from skilled PT services for functional mobility progression and strengthening. PLAN: Continue with initially established PT POC to achieve goals. DISCHARGE RECOMMENDATIONS: Patient will continue will benefit from the use of a front wheeled walker in order to reduce fall risk at home. TREATMENT CODE/TIME: Session 1??68384 x 15 minutes beginning at 11:03 PM. Session 2??96937 x15 minutes, 9711 0 x 12 minutes, beginning at 14:06 PM.
--- NOTE | 2019-09-04 14:43 | W.PM.PROGNOT ---
Date of Service Date of service: 09/04/19 Time of Service: 11:30 Assessment and Plan Assessment and plan (1) CHF exacerbation: Status: Acute Assessment and plan: Continues to improve with reinstitution of diuretics. Again admits that she has not been adherent at home with her diuretic. I am placing her on oral torsemide at twice her outpatient dose and monitor her diuretic response. Possible discharge tomorrow if current trend of improvement continues. (2) Type II diabetes mellitus with neurological manifestations: Status: Chronic Assessment and plan: Blood sugars have responded to hospital diet?which she is finding to be insufficient in terms of quantity?and insulin at lower than outpatient doses. Continue to monitor blood sugars and adjust insulin dose depending on results. (3) Esophageal reflux disease: Status: Chronic Assessment and plan: No further dyspepsia. Stable on current PPI. Possible gastritis causing symptoms as well as drop in hemoglobin? Not interested in invasive testing. (4) Coronary artery disease involving [place] coronary artery of [place] heart: Status: Chronic Assessment and plan: No anginal chest pain. Troponins flat. No dysrhythmias. Continue beta-gerry, ARB, statin and ezetimibe. No aspirin due to lower hemoglobin and concern for upper GI source of bleeding. (5) Chronic kidney disease, stage III (moderate): Status: Chronic Assessment and plan: Stable BUN and creatinine thus far with efforts at diuresis. Good urine output. Continue to monitor. (6) COPD, mild: Status: Chronic Assessment and plan: Still a bit wheezy. I do not think she needs systemic steroids which would certainly worsen her diabetes control. Continue to follow on current inhalers. Doubtful that she will need home oxygen. (7) Chronic back pain: Status: Chronic Assessment and plan: No significant change for better or worse. NSAIDs contraindicated. Symptom treatment with acetaminophen, local heat or cold as tolerated. (8) Hypertension: Status: Chronic Assessment and plan: Doing fine, monitor with increased dose of torsemide. (9) Tinea corporis: Status: Acute Assessment and plan: Mild involvement, submammary. Topical Chlortrimazole continues. (10) Iron deficiency anemia: Status: Acute Assessment and plan: Heme test stool when she has suitable sample. Start on oral iron replacement. Continue PPI. Does not wish to have invasive testing (endoscopy). Follow blood counts. (11) Nicotine dependence: Status: Chronic Assessment and plan: Remains motivated to quit although having some cravings. Nicotine replacement in the form of nicotine inhaler. (12) COVID-19 ruled out: Status: Acute Assessment and plan: Test has returned negative. (13) Physical deconditioning: Status: Chronic Assessment and plan: Longstanding habit of sedentary existence. PT consult to try to improve safe transfers and mobility. (14) Mass of both parotid glands: Status: Acute Assessment and plan: Patient informed of CT findings. This is probably a benign process but merits ENT follow-up as an outpatient. Subjective Subjective Interval history since last seen: Breathing is feeling a little better. Continues to have good diuretic response to bolus IV furosemide. Continues to complain of discomfort in the right ear area and near the mandible of the jaw. This is been going on for months. Also has slight sore throat episodically. Denies any productive cough. Blood sugars have been in the mid 100s. Transient oxygen requirement overnight, 92% now on room air. Weight is down over 4 kg since admission. Exam Narrative Exam Narrative: Afebrile. Telemetry has shown sinus rhythm, scattered PVCs. Talks in full sentences, no acute respiratory distress. There is some fullness and nodularity at the mandible the jaw within the parotid on the right, less prominent on the left, mildly tender on the right. No overlying skin erythema. I do not feel any cervical adenopathy. Lungs with faint expiratory wheezing in both lung aleman. Heart rhythm presently regular. No murmur S3 or S4 heard. Abdomen obese nontender. 2+ edema now in the feet, improvement since yesterday. Objective Objective Clinical Data: Abnormal lab results Soft tissue CT scan of the neck showing bilateral small homogeneous parotid masses. Physiologic appearing lymph nodes. 09/04/19 09/04/19 Range/Units 06:30 06:30 Hgb 9.1 L (12.0-15.5) g/dL Hct 31.4 L (36.0-46.0) % MCV 77.1 L (80-95) fL MCH 22.4 L (27.0-33.0) pg MCHC 29.0 L (32.0-36.0) g/dL RDW 18.1 H (11.7-14.6) % BUN 24 H (7-18) mg/dL Creatinine 1.14 H (0.55-1.02) mg/dL Glucose 157 H (74-106) mg/dL Vital Signs Temperature 36.7 C 09/04/19 11:45 Temperature Source Tympanic 09/04/19 11:45 Pulse 66 09/04/19 11:45 Pulse Rhythm Regular 09/04/19 07:45 Pulse 104 H 09/02/19 14:20 Respiratory Rate 20 09/04/19 11:45 Respiratory Effort 09/04/19 07:45 Respiratory Depth Normal 09/04/19 07:45 Respiratory Pattern Normal 09/04/19 07:45 Blood Pressure 122/73 09/04/19 11:45 Blood Pressure Mean 75 09/02/19 14:50 Blood Pressure Position Sitting 09/02/19 14:50 Pulse Oximetry 92 L 09/04/19 12:40 Oxygen Delivery Method Room Air 09/04/19 12:40 Oxygen Flow Rate 0 09/04/19 12:40 Pain Level 5 09/04/19 11:45 Comment 09/04/19 03:23 Intake & Output 09/03/19 09/04/19 09/04/19 23:59 11:59 23:59 Intake Total 594 / 608 Output Total 750 / 2926 1050 / 1450 400 / 1450 Balance -156 / -2318 -1050 / -1450 -400 / -1450 Weight 108.3 kg 105.2 kg Intake: IV Oral 580 / 580 Output: Urine 750 / 2925 1050 / 1450 400 / 1450 Other: Urine Color Yellow Yellow Pale Urine Appearance Clear Clear Clear Urine Odor Normal Normal Stool Occult Blood Negative Stool Size Moderate Stool Characteristics Formed Voiding Methods Bedside Commode Bedside Commode Bedside Commode Laboratory Results WBC 7.93 k/cumm (4.4-10.8) 09/04/19 06:30 RBC 4.07 m/cumm (4.00-5.20) 09/04/19 06:30 Hgb 9.1 g/dL (12.0-15.5) L 09/04/19 06:30 Hct 31.4 % (36.0-46.0) L 09/04/19 06:30 MCV 77.1 fL (80-95) L 09/04/19 06:30 MCH 22.4 pg (27.0-33.0) L 09/04/19 06:30 MCHC 29.0 g/dL (32.0-36.0) L 09/04/19 06:30 RDW 18.1 % (11.7-14.6) H 09/04/19 06:30 Plt Count 327 x1000/uL (130-400) 09/04/19 06:30 MPV 10.1 fL (8.0-11.0) 09/04/19 06:30 Immature Gran % 0.3 % 09/03/19 06:08 Neutrophils % 67.2 09/03/19 06:08 Lymphocytes % 20.3 09/03/19 06:08 Monocytes % 8.1 09/03/19 06:08 Eosinophils % 3.7 09/03/19 06:08 Basophils % 0.4 09/03/19 06:08 Absolute Neutrophils 4.74 k/cumm (1.2-6.7) 09/03/19 06:08 Absolute Lymphocytes 1.43 k/cumm (1.2-3.4) 09/03/19 06:08 Absolute Monocytes 0.57 k/cumm (0.11-0.7) 09/03/19 06:08 Absolute Eosinophils 0.26 k/cumm (0.0-0.7) 09/03/19 06:08 Absolute Basophils 0.03 k/cumm (0.0-0.2) 09/03/19 06:08 Differential Comment Diff reviewed 09/02/19 11:05 RBC Morphology See below 09/02/19 11:05 Hypochromasia 2+ 09/02/19 11:05 Poikilocytosis 1+ 09/02/19 11:05 Microcytosis 1+ 09/02/19 11:05 PT 10.0 sec (9.3-11.0) 09/02/19 11:05 INR 1.0 (0.9-1.1) 09/02/19 11:05 APTT 25.2 sec (21.0-31.4) 09/02/19 11:05 VBG pH 7.43 (7.35-7.45) 09/02/19 11:05 VBG pCO2 43 mm/Hg (34-47) 09/02/19 11:05 VBG pO2 65 mm/Hg (28-44) H 09/02/19 11:05 VBG HCO3 28 mmol/L (22-28) 09/02/19 11:05 VBG Total CO2 27 mmol/L (22-29) 09/02/19 11:05 VBG O2 Saturation 93 % (70-80) H 09/02/19 11:05 VBG Base Excess 4.0 mmol/L (-3-3) H 09/02/19 11:05 Sodium 137 mmol/L (136-145) 09/04/19 06:30 Potassium 4.3 mmol/L (3.5-5.1) 09/04/19 06:30 Chloride 102 mmol/L (98-107) 09/04/19 06:30 Carbon Dioxide 29.3 mmol/L (21.0-32.0) 09/04/19 06:30 Anion Gap 5.7 mmol/L (3-11) 09/04/19 06:30 BUN 24 mg/dL (7-18) H 09/04/19 06:30 Creatinine 1.14 mg/dL (0.55-1.02) H 09/04/19 06:30 Estimated GFR/1.73 m2 47.84 (mL/min/1.73m2) 09/04/19 06:30 Glucose 157 mg/dL (74-106) H 09/04/19 06:30 Calcium 8.7 mg/dL (8.5-10.1) 09/04/19 06:30 Magnesium 1.8 mg/dL (1.8-2.4) 09/02/19 20:05 Iron 31 ug/dL (50-170) L 09/02/19 11:05 TIBC 409 ug/dL (250-450) 09/02/19 11:05 Transferrin % Sat 8 % (15-50) L 09/02/19 11:05 Total Bilirubin 0.4 mg/dL (0.2-1.0) 09/02/19 11:05 AST 34 U/L (15-37) 09/02/19 11:05 ALT 41 U/L (14-59) 09/02/19 11:05 Alkaline Phosphatase 154 U/L (46-116) H 09/02/19 11:05 Troponin I < 0.05 ng/Ml (<0.06) 09/02/19 14:25 NT-Pro-B Natriuret Pep 1511 pg/mL (<300) H 09/02/19 11:05 Total Protein 7.2 g/dL (6.4-8.2) 09/02/19 11:05 Albumin 3.4 g/dL (3.4-5.0) 09/02/19 11:05 Urine Color Yellow (Yellow) 09/02/19 11:50 Urine Clarity Sl cloudy (Clear) 09/02/19 11:50 Urine pH 7.0 (5-8) 09/02/19 11:50 Ur Specific [place] 1.025 (1.005-1.025) 09/02/19 11:50 Urine Protein 30 mg/dL (Negative) H 09/02/19 11:50 Urine Ketones Negative mg/dL (Negative) 09/02/19 11:50 Urine Blood Trace-intact (Negative) H 09/02/19 11:50 Urine Nitrite Negative (Negative) 09/02/19 11:50 Urine Bilirubin Negative (Negative) 09/02/19 11:50 Urine Urobilinogen 0.2 EU/dL (Up TO 0.2) 09/02/19 11:50 Ur Leukocyte Esterase Small (Negative) H 09/02/19 11:50 Urine RBC 0-2 HPF (0-2) 09/02/19 11:50 Urine WBC 0-2 HPF (0-5) 09/02/19 11:50 Ur Epithelial Cells Many HPF (Negative) 09/02/19 11:50 Urine Crystals Negative HPF (Negative) 09/02/19 11:50 Urine Bacteria Negative HPF (Negative) 09/02/19 11:50 Urine Casts Negative LPF (Negative) 09/02/19 11:50 Urine Mucus Negative (Negative) 09/02/19 11:50 Urine Other Few renal (Negative) 09/02/19 11:50 Ur Culture Indicated? No/sq. contamination 09/02/19 11:50 Urine Glucose Negative mg/dL (Negative) 09/02/19 11:50 Nasopharyn COVID-19 PCR Negative 09/02/19 12:44
[2019-09-04] MEDS: Albuterol HFA 8 GM 60 PUFF INH IH (16:47)
[2019-09-04] MEDS: Simvastatin 40 MG TAB PO (20:36)
[2019-09-04] MEDS: Insulin Glargine 300 UNITS/3 ML PEN 50 UNITS SC (21:33)
[2019-09-05 03:08] VITALS: BP 110/56; PULSE 60; RESP 18; TEMP 36.2; O2SAT 92
[2019-09-05] MEDS: Levothyroxine 50 MCG TAB PO (05:51)
[2019-09-05 07:18] LABS: HCT 31.9 % (36.0-46.0); HGB 9.1 g/dL (12.0-15.5); Mean Corp. HGB Concentration 28.5 g/dL (32.0-36.0); Mean Corpuscular Hemoglobin 22.1 pg (27.0-33.0); Mean Corpuscular Volume 77.4 fL (80-95); Mean Platelet Volume 9.8 fL (8.0-11.0); Platelet Count 301 x1000/uL (130-400); RBC 4.12 m/cumm (4.00-5.20); RBC Distribution Width 18.1 % (11.7-14.6)
[2019-09-05 07:33] LABS: BUN 23 mg/dL (7-18); CREATININE 1.09 mg/dL (0.55-1.02); Calcium 8.6 mg/dL (8.5-10.1); Chloride 105 mmol/L (98-107); Estimated GFR 50.38 (mL/min/1.73m2); Glucose 145 mg/dL (74-106); Potassium 4.2 mmol/L (3.5-5.1); Sodium 141 mmol/L (136-145)
[2019-09-05 08:10] VITALS: BP 120/55; PULSE 65; RESP 20; TEMP 36.6; O2SAT 93
[2019-09-05] MEDS: Ipratropium/Albuterol 4 GM 120 PUFF INH IH ×2 (08:12→12:48)
[2019-09-05] MEDS: Budesonide/Formoterol 160/4.5 6 GM 60 PUFF INH IH (08:12)
[2019-09-05] MEDS: Ezetimibe 10 MG TAB PO (08:14)
[2019-09-05] MEDS: Ferrous Gluconate 324 MG TAB PO (08:14)
[2019-09-05] MEDS: busPIRone 15 MG TAB PO (08:14)
[2019-09-05] MEDS: Torsemide 20 MG TAB PO (08:14)
[2019-09-05] MEDS: Losartan 50 MG TAB PO (08:14)
[2019-09-05] MEDS: Pantoprazole 40 MG TABCR PO (08:14)
[2019-09-05] MEDS: DULoxetine 30 MG CAP 60 MG PO (08:14)
[2019-09-05] MEDS: Insulin Aspart 300 UNITS/3 ML PEN SC ×2 (08:15→12:01)
[2019-09-05] MEDS: Metoprolol 25 MG TAB PO (08:15)
[2019-09-05] MEDS: Enoxaparin 40 MG/0.4 ML SYR SC (08:15)
[2019-09-05] MEDS: Insulin Aspart 300 UNITS/3 ML PEN 10 UNITS SC ×2 (08:15→12:01)
[2019-09-05] MEDS: Clotrimazole 1% 15 GM TUBE TP (08:17)
[2019-09-05 10:06] VITALS: PULSE 62; PULSE 65; PULSE 74; RESP 16; RESP 18; O2SAT 94; O2SAT 97
[2019-09-05 10:09] VITALS: O2SAT 97
[2019-09-05 11:55] VITALS: BP 120/73; PULSE 71; RESP 19; TEMP 36.1; O2SAT 90
--- NOTE | 2019-09-05 12:25 | INDS_ITS ---
Date of service: 09/05/19 Time of Service: 12:25 PT Notes Visit Reasons: Shortness of breath Inpatient Physical Therapy Discharge Summary Dates: 09/05/2019 Dates of Service: 09/03/2019 through 09/05/2019 Referring Doctor: Jaime Tate MD PT Orders: PT CONSULT: Limited ability Precautions: Fall. Standard. Activity as tolerated. Patient Profile/Admitting Diagnosis: Patient is a 64-year-old female who presented to the ED on 09/02/2019 with a chief presentation of shortness of breath with exertion cough, and lower extremity swelling. Patient did complain of having a head cold 2 to 3 weeks ago but tested negative for COVID-19 on 07/26/2019. Patient is diagnosed with congestive heart failure exacerbation and a microcytic anemia with COVID-19 retesting negative as of 09/02/2019 at 20 2:40 PM and verified on 09/03/2019 at 8:30 AM. PMHX: Medical History (Updated 09/02/19 @ 15:54 by Jaime Tate MD) Abdominal aortic aneurysm (Chronic 11/27/12) Identified 10/31/12 CT abd-pelvis; 4cm; stable 4.1 cm 07/2014 CT, 4.3cm 11/2016, 5.5cm 03/04/17 ([facility]). Brennen Nava following; see 04/2016 progress note. 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 Ward Calculus of kidney and ureter (Resolved) Cardiomyopathy (Chronic) Dr Fair, EF 45% Jun 2014 ECHO (h/o much worse) 10/2016 ECHO: EF 40-45% 10/2016 MPI: no acute, but persistent old infarct Carpal tunnel syndrome (Resolved 08/14/12) resolved s/p b/l release Chronic back pain (Chronic) History of chronic opioids, now none Chronic kidney disease, stage III (moderate) (Chronic 08/14/12) Cortical atrophy R kidney on CT 07/2014; multiple cysts COPD, mild (Chronic 07/02/17) PFTs Coronary artery disease involving [place] coronary artery of [place] heart (Chronic) INFERIOR [place] 1996, 100% RCA occlusion; large inf defect on perfusion scan, dr Fair Depressive disorder (Chronic 08/14/12) 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 Guerra DJD of right shoulder (Chronic 01/01/13) 12/2012 x-ray severe DJD glenohumeral joint Dr. Guerra; not a surgical candidate for replacement Episode of seizures in July 2012 (Resolved) Esophageal reflux disease (Chronic 07/24/11) UPPER GI SERIES 11/14/2012, MOD HIATAL HERNIA SEVERE GERD Headache (Chronic 08/31/13) Hypertension (Chronic) Hypothyroidism (Chronic) Incarcerated umbilical hernia (Resolved 09/06/15) Marijuana dependence (Chronic) Nausea and vomiting (Resolved 08/01/14) a. previous history of possible marijuana induced hyperemesis Neurogenic bladder (Resolved 07/24/11) Does not need to self-cath 11/2016: +Urinary retention [facility] inpt requiring cath; resolved by time of discharge Nicotine dependence (Chronic) Obesity, unspecified (Chronic 07/24/11) Other and unspecified hyperlipidemia (Chronic 08/14/12) Spinal stenosis of lumbar region with neurogenic claudication (Chronic 12/08/13) 04/13/2013 MRI Lumbar Spine: Facet arthropathy, DJD, L4-5, L5-S1 central spinal and neural foraminal stenosis Neurosurgery referral, but not a surgical candidate [facility] chronic pain service Chronic Pain [facility] Pain Center consult 10/26/15 [facility] consult 03/04/17 (Sanket Sawant MD) 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, 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 Social History/Home Situation: Patient lives alone with son in a private home. She is independent with all ADL performance using a single-point cane indoors and a walker for outdoors. She states she has a walk-in shower and that she is independent with bathing and dressing activities. She is able to do simple meal preparation. Son helps with almost everything that she needs. She did not use oxygen supplementation before. Equipment Owned/DME: Front wheeled walker, single-point cane Subjective: Patient states that she has been cleared to go home this afternoon just waiting for somebody to pick her up. Objective: General Observation: Obese. RT present throughout PT session. Mental Status: Alert and oriented x4 Pain: None reported ROM: Right Upper Extremity: Shoulder Flexion allows up to 90 degrees. Shoulder abduction allows up to 90 degree. Elbow flexion WFL. Wrist flexion WFL. Opening and closing of hand WFL. Left Upper Extremity: Shoulder Flexion allows up to 120 degrees. Shoulder abduction allows up to 100 degrees. Elbow flexion WFL. Wrist flexion WFL. Opening and closing of hand WFL. Right Lower Extremity: Hip flexion 20 degrees past 90 while seated on chair. Hip abduction WFL. Knee flexion WFL. Knee extension -10 degrees. Ankle dorsiflexion WFL. Ankle plantarflexion WFL. Left Lower Extremity: Hip flexion 20 degrees past 90 while seated on chair. Hip abduction WFL. Knee flexion WFL. Knee extension -10 degrees. Ankle dorsiflexion WFL. Ankle plantarflexion WFL. Strength: Right Upper Extremity: Shoulder flexors 3-/5. Shoulder abductors 3-/5. Elbow flexors 4-/5. Elbow extensors 4-/5. Iron Setter strong. Left Upper Extremity: Shoulder flexors 3-/5. Shoulder abductors 3-/5. Elbow flexors 4-/5. Elbow extensors 4-/5. [place] strong. Right Lower Extremity: Hip flexors 3-/5. Hip abductors 3+/5. Knee flexors 3+/5. Knee extensors 3-/5. Ankle dorsiflexors 3-/5. Ankle plantarflexors 3-/5. Left Lower Extremity: Hip flexors 3-/5. Hip abductors 3+/5. Knee flexors 3+/5. Knee extensors 3-/5. Ankle dorsiflexors 3-/5. Ankle plantarflexors 3-/5. Sensation: Intact as to pain and pressure on bilateral lower extremities. Bed Mobility/Transfers: Rolling minimal assist Supine to sit minimal assist with HOB to 45 degrees Sit to stand from edge of bed standby assist with the bed positioned high Stand to sit on to bedside recliner standby assist with minimal cueing provided for hand placement for support Bed to chair standby assist needing the use of BUE for support with minimal cueing for safety Chair to bed standby assist needing the use of BUE for support with minimal cueing for safety Gait: Patient was able to tolerate 25 feet +80 feet +15 feet level surface ambulation using front wheeled walker with SBA of PT. Oxygen saturation above 90% on room air. Step-to gait pattern seen. Decreased step height and length. Decreased monica. Patient complained of both legs being weak. Balance: Static Sitting: Good Dynamic Sitting: Good Static Standing: Fair Dynamic Standing: Fair Assessment: Patient continues to demonstrate functional mobility decline, instability with gait, generalized body weakness, pain from arthritis, and need for an assistive device for all ADL performance. Motivation has been low to participate in therapy. Patient will continue to benefit from home health physical therapy in order to progress mobility level, increase ability of patient to stay at home, and reduce fall risk. Patient continues to present with clinical signs and symptoms consistent with current/admitting diagnoses that have resulted to mobility limitations, gait instability, generalized weakness, and impairment of motor control as demonstrated by the following impairment level findings: 1. Decreased strength to B UE/LE major muscle groups 2. Impaired sitting/standing balance 3. Impaired activity tolerance Impairments are contributing to the following functional limitations: 1. Dependent bed mobility skills 2. Increased dependence with transfers 3. Inability to safely ambulate without assistive device and physical assistance 4. Increase completion time for mobility ADL performance 5. Increased fall risk 6. Inability to negotiate steps alone safely Goals: Goals X1 week 1. Supine-Sit independent NOT MET 2. Sit-Supine independent NOT MET 3. Sit-Stand independent NOT MET 4. Stand-Sit independent NOT MET 5. Bed-Chair independent NOT MET 6. Chair-Bed independent NOT MET 7. Independent gait on level surface with use of least restrictive device for at least 300 feet without report of pain nor dyspnea NOT MET 8. Independent stair negotiation while holding onto bilateral rails for at least 5 steps without report of pain nor dyspnea NOT MET 9. Independent with home exercise program NOT MET 10. Good static and dynamic standing balance/tolerance NOT MET DISCHARGE RECOMMENDATIONS: Patient will benefit from home health PT services in order to progress mobility level using least restrictive assistive ambulatory device, assess home safety, identify additional equipment needs, and establish a functional maintenance program that will increase ability of patient to remain at home. TREATMENT CODE/TIME: Session 1??07611 x 38 minutes beginning at 9:22 AM. Session 2??[id number] x 15 minutes beginning at 12:25 PM. Thank you very much for this referral. Alison Onofre PT, DPT, CLT [facility] [place], [place]
--- NOTE | 2019-09-05 13:50 | W.PM.DS.N ---
Date of service: 09/05/19 Time of Service: 13:50 DS: Diagnosis Discharge Diagnosis (1) Acute on chronic systolic (congestive) heart failure: Status: Acute (2) Mild pulmonary hypertension: Status: Acute (3) Regional wall motion abnormality of heart: Status: Chronic (4) Type II diabetes mellitus with neurological manifestations: Status: Chronic (5) Esophageal reflux disease: Status: Chronic (6) Coronary artery disease involving [place] coronary artery of [place] heart: Status: Chronic (7) Chronic kidney disease, stage III (moderate): Status: Chronic (8) COPD, mild: Status: Chronic (9) Chronic back pain: Status: Chronic (10) Hypertension: Status: Chronic (11) Tinea corporis: Status: Acute (12) Iron deficiency anemia: Status: Acute (13) Nicotine dependence: Status: Chronic (14) COVID-19 ruled out: Status: Acute (15) Physical deconditioning: Status: Chronic (16) Mass of both parotid glands: Status: Acute (17) Noncompliance with medication regimen: Status: Acute (18) Obesity (BMI 30-39.9): Status: Acute Discharge Plan Disposition Patient Disposition: HOME W/HOME HEALTH SERVICE Condition: Improving Discharge Details Chief Complaint: SOB Clinical Impression: CHF exacerbation, Acute dyspnea Reason For Visit: SOB Admit Date/Time: 09/02/19 12:25 Admit Provider: Jaime Tate Attending Provider: Jaime Tate Primary Care Provider: Mai Castelan ED Provider: Jeremie Mcdonald Hospital Course Hospital Course: Ms Carvalho is a 64 year old female with PMHx of chronic systolic CHF (most recent EF of 40-45% on this admission)/cardiomyopathy, as well as IDDM2, non-oxygen dependent COPD, tobacco abuse, who was admitted to [facility] hospitalist service on 09/05/2019 with shortness of breath, felt to be due to primarily acute exacerbation of her chronic systolic CHF. She ruled out for COVID-19 as well as for acute coronary syndrome, did not have evidence of arrhythmic events on tele, and responded very well to diuresis. The patient underwent a TTE showing EF of 40-45%, regional all motion abnormalities, and RVSP of 32.8 mm Hg; diastolic function could not be assessed. She was transitioned to PO torsemide (though her dose was doubled from her normal outpatient dose). While she did require a minimal amount of supplemental oxygen when she first presented, on discharge she does not require it. She feels ready to be discharged home today, and home health nursing and PT are being ordered on discharge. The patient admits to medication noncompliance, not following her 2 gram sodium/day restriction (was advised to), and admits to falling out of follow up with cardiology, to which she is being referred as outpatient. The patient was found to be anemic with Hgb of on average around 9 on this admission without obvious bleeding. Her iron studies will need to be followed up as outpatient (they are pending at the time of discharge). Her stools were hemoccult negative x 2 and were brown. The patient will need to follow up for outpatient, non emergent EGD, if she is agreeable. She was started on PO iron, vitamin C, and colace on discharge. The patient also had some benefit from bronchodilators, and she is being discharged home with a nebulizer machine. She was advised to quit smoking. Finally, she was found to have small bilateral circumscribed homogeneous parotid masses, likely benign, but the patient is being referred to ENT on discharge for follow up. She is medically stable for discharge home today with home health nursing, PT, nebulizer machine, and she already has a front wheeled walker. Care for patient as well as completion of her discharge summary took 45 minutes on day of discharge. Home Meds and New Rx's Prescriptions: New Nicotrol 10 mg Cartridge 1 inh inhalation Q3H PRN PRNQty: 168 RF: 0 ferrous gluconate 324 mg (37.5 mg iron) Tablet 324 mg PO BID Qty: 60 RF: 0 ascorbic acid (vitamin C) [Vitamin C] 250 mg tablet 250 mg PO BID Qty: 60 RF: 0 docusate sodium [Colace] 100 mg capsule 100 mg PO BID Qty: 60 RF: 0 ipratropium-albuterol 0.5 mg-3 mg(2.5 mg base)/3 mL solution for nebulization 3 ml IH Q4H PRN (Reason: shortness of breath or wheezing) Qty: 180 RF: 0 Continued ezetimibe [Zetia] 10 mg tablet 10 mg PO DAILY Qty: 90 RF: 3 levothyroxine 50 mcg tablet 50 mcg PO DAILY Qty: 90 RF: 3 mupirocin 2 % ointment 1 applic TP BID Qty: 15 RF: 0 nicotine 10 mg cartridge 1 inh IH 4-6XD PRN (Reason: nicotine cravings) Qty: 168 RF: 1 acetaminophen 500 mg capsule 1,000 mg PO TID Qty: 180 RF: 11 naproxen 250 mg tablet 250 mg PO BID Qty: 30 RF: 1 Mucinex 1,200 mg tablet extended release 12hr 1,200 mg PO Q12H PRN (Reason: cold symptoms) Qty: 60 RF: 1 Medical THC 1 misc Inhalation PRN PRNRF: 0 budesonide-formoterol [Symbicort] 10.2 GM HFA aerosol inhaler 2 puff Inhalation BID Qty: 3 RF: 3 duloxetine [Cymbalta] 60 mg capsule,delayed release(DR/EC) 60 mg PO BID Qty: 180 RF: 3 albuterol sulfate [ProAir HFA] 90 mcg/actuation HFA aerosol inhaler 1 - 2 puff Inhalation Q4H PRN Qty: 1 RF: 3 Lantus Solostar U-100 Insulin 100 unit/mL (3 mL) insulin pen 80 unit Sub-Q HS Qty: 3 RF: 11 Victoza 2-Kotsa 0.6 mg/0.1 mL (18 mg/3 mL) pen injector 1.8 mg subcut DAILY Qty: 3 RF: 3 metoprolol tartrate 25 mg tablet 25 mg PO BID Qty: 180 RF: 3 pantoprazole 40 mg tablet,delayed release (DR/EC) 40 mg PO DAILY Qty: 90 RF: 3 simvastatin 40 mg tablet 40 mg PO DAILY Qty: 90 RF: 3 (DME) pen needle, diabetic [BD Ultra-Fine Carmela Pen Needle] 32 gauge x 5/32 needle 1 ea Sub-Q 6 times a day Qty: 540 RF: 6 finasteride 5 mg tablet 1.25 mg PO DAILY RF: 0 buspirone 30 mg tablet 15 mg PO BID Qty: 90 RF: 3 losartan [Cozaar] 50 mg tablet 50 mg PO DAILY Qty: 90 RF: 3 benzonatate [Tessalon Perles] 100 mg capsule 100 mg PO TID PRN (Reason: cough) Qty: 90 RF: 3 ipratropium bromide 0.03 % spray,non-aerosol 2 spray SANKET TID Qty: 30 RF: 0 insulin aspart U-100 [Novolog Flexpen U-100 Insulin] 100 unit/mL (3 mL) insulin pen 20 unit SC AC Qty: 60 RF: 3 (DME) blood sugar diagnostic Strip See Dose Instructions .ROUTE .MEDSUPPLY Qty: 400 RF: 3 (DME) lancets [OneTouch UltraSoft Lancets] Misc See Dose Instructions .ROUTE .MEDSUPPLY Qty: 400 RF: 3 Changed torsemide 10 mg tablet 20 mg PO DAILY Qty: 90 RF: 3 Discharge Instructions Instructions: Heart Failure (DC), How to Stop Smoking (DC), Anemia (DC) Additional Instructions: You must stop smoking. Follow 2 gram sodium/day restriction. Return to the hospital with any fever, bleeding, chest pain, shortness of breath. Weigh yourself daily and record your weight. If you are noticing your weight going up by >3 lbs in 5 days, call your PCP. Take your medications as prescribed. Care Plan Goals: Discharge home with home health nursing, PT. Check CBC, BMP, magnesium 09/14/2019 by home health nursing - results to Mai Murillo. Referrals: ENT,[facility] [OTHER] - Susi Hurtado [PREP COOK] - Mai Castelan NP [Primary Care Provider] - Albert Gill MD [MD CONSULTING PHYSICIAN] - (systolic CHF, wall motion abnormalities) Activity:: Activity as Tolerated Equipment/Supplies:: nebulizer machine Diet:: 2 gram sodium carb consistent Discharge Orders Discharge Orders: Discharge Order (Routine); Ordered 09/05/19 Ordered By: Naya López DS: Summary Status at Discharge Functional status at discharge: uses cane/walker Overall status at discharge: patient is progressing back to baseline Mental Status: mental status grossly normal Speech and Movement: speech and movement normal Mood: congruent mood Affect: normal affect Exam Narrative Exam Narrative: General: Very pleasant middle-aged Obese female, A&Ox3, laying comfortably nearly flat in bed HEENT: EOMI, MMM Heart: RRR Lungs: quiet crackles at B bases (minimal) Abdomen: soft, nontender, nondistended Extremities: + 1 BLE edema, symmetric, no c/c. Psych Mental Status: mental status grossly normal Speech and Movement: speech and movement normal Mood: congruent mood Affect: normal affect DS: Data Vitals/I&O Vitals and I&O: Vital Signs Temperature 36.6 C 09/05/19 08:10 Temperature Source Tympanic 09/05/19 08:10 Pulse 65 09/05/19 08:10 Pulse Rhythm Regular 09/05/19 08:20 Pulse 104 H 09/02/19 14:20 Respiratory Rate 20 09/05/19 08:10 Respiratory Effort 09/05/19 08:20 Respiratory Depth Normal 09/05/19 08:20 Respiratory Pattern Normal 09/05/19 08:20 Blood Pressure 120/55 L 09/05/19 08:10 Blood Pressure Mean 75 09/02/19 14:50 Blood Pressure Position Sitting 09/02/19 14:50 Pulse Oximetry 97 09/05/19 10:09 Oxygen Delivery Method Room Air 09/05/19 10:09 Oxygen Flow Rate 0 09/05/19 10:09 Pain Level 0 09/04/19 19:32 Comment 09/04/19 03:23 Intake & Output 09/04/19 09/05/19 09/05/19 23:59 11:59 23:59 Intake Total 240 / 240 Output Total 1500 / 2550 1350 / 1350 Balance -1260 / -2310 -1350 / -1350 Intake: Oral 240 / 240 Output: Urine 1500 / 2550 1350 / 1350 Other: Urine Color Yellow Pale Urine Appearance Clear Clear Urine Odor Normal Normal Stool Size Small Large Stool Characteristics Formed Formed Hard Black Brown Voiding Methods Bedside Commode Bedside Commode Data Completed and Pending Completed studies during hospitalization [Text1]: CXR 09/02/2019: Limited exam. Hiatal hernia. No evidence of CHF or focal consolidation. Transthoracic echo 09/03/2019: Left Ventricle : The left ventricle is normal size. Left ventricular systolic function is moderately decreased. Moderate concentric left ventricular hypertrophy. Regional wall motion abnormalities are noted. LVEF is 40-45%. Right Ventricle : The right ventricle is normal size. The right ventricular systolic function is normal. The RVSP is 32.8mmHg. Atria : Left atrium is mildly dilated. The right atrium size is normal. Aortic Valve : The Aortic valve is sclerotic. There is no aortic valvular stenosis. Mild aortic regurgitation. Mitral Valve : There is mitral annular calcification. No evidence of mitral valve stenosis. Moderate mitral regurgitation. Tricuspid Valve : The tricuspid valve is normal in structure. There is no tricuspid valve stenosis. Mild tricuspid regurgitation. Great Vessels : IVC is normal in size and collapses >50% with inspiration. Compared to echocardiogram dated 10/26/2016: There is no significant change. CT neck 09/04/2019: Small bilateral circumscribed homogeneous parotid masses. The findings could represent or thin tumors, benign mixed tumors or less likely enlarged intraparotid lymph nodes or adenoid cystic carcinoma. Pending studies at discharge: TSH, iron studies Labs on day of discharge: Labs from last 24 hours 09/05/19 09/05/19 06:40 06:40 WBC 7.50 RBC 4.12 Hgb 9.1 L Hct 31.9 L MCV 77.4 L MCH 22.1 L MCHC 28.5 L RDW 18.1 H Plt Count 301 MPV 9.8 Sodium 141 Potassium 4.2 Chloride 105 Carbon Dioxide 30.0 Anion Gap 6.0 BUN 23 H Creatinine 1.09 H Estimated GFR/1.73 m2 50.38 Glucose 145 H Calcium 8.6 Preliminary micro results at discharge 09/02/19 11:40 Blood Culture - Preliminary Blood NO GROWTH 72 HOURS 09/02/19 11:30 Blood Culture - Preliminary Blood NO GROWTH 72 HOURS [facility] Medical History (Updated 09/05/19 @ 13:53 by Naya López MD) Abdominal aortic aneurysm (Chronic 11/27/12) Identified 10/31/12 CT abd-pelvis; 4cm; stable 4.1 cm 07/2014 CT, 4.3cm 11/2016, 5.5cm 03/04/17 ([facility]). Brennen Nava following; see 04/2016 progress note. 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 Ward Calculus of kidney and ureter (Resolved) Cardiomyopathy (Chronic) Dr Fiar, EF 45% Jun 2014 ECHO (h/o much worse) 10/2016 ECHO: EF 40-45% 10/2016 MPI: no acute, but persistent old infarct Carpal tunnel syndrome (Resolved 08/14/12) resolved s/p b/l release Chronic back pain (Chronic) History of chronic opioids, now none Chronic kidney disease, stage III (moderate) (Chronic 08/14/12) Cortical atrophy R kidney on CT 07/2014; multiple cysts COPD, mild (Chronic 07/02/17) PFTs Coronary artery disease involving [place] coronary artery of [place] heart (Chronic) INFERIOR PA 1996, 100% RCA occlusion; large inf defect on perfusion scan, dr Fair Depressive disorder (Chronic 08/14/12) 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 Guerra DJD of right shoulder (Chronic 01/01/13) 12/2012 x-ray severe DJD glenohumeral joint Dr. Guerra; not a surgical candidate for replacement Episode of seizures in July 2012 (Resolved) Esophageal reflux disease (Chronic 07/24/11) UPPER GI SERIES 11/14/2012, MOD HIATAL HERNIA SEVERE GERD Headache (Chronic 08/31/13) Hypertension (Chronic) Hypothyroidism (Chronic) Incarcerated umbilical hernia (Resolved 09/06/15) Marijuana dependence (Chronic) Nausea and vomiting (Resolved 08/01/14) a. previous history of possible marijuana induced hyperemesis Neurogenic bladder (Resolved 07/24/11) Does not need to self-cath 11/2016: +Urinary retention [facility] inpt requiring cath; resolved by time of discharge Nicotine dependence (Chronic) Obesity, unspecified (Chronic 07/24/11) Other and unspecified hyperlipidemia (Chronic 08/14/12) Physical deconditioning (Chronic) Spinal stenosis of lumbar region with neurogenic claudication (Chronic 12/08/13) 04/13/2013 MRI Lumbar Spine: Facet arthropathy, DJD, L4-5, L5-S1 central spinal and neural foraminal stenosis Neurosurgery referral, but not a surgical candidate [facility] chronic pain service Chronic Pain [facility] Pain Center consult 10/26/15 [facility] Spine [facility] consult 03/04/17 (Sanket Sawant MD) 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 work-up 2010/wchun +Hereditary, 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 Ambulates with cane when out; walker at home 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) Goal A1c < 7.5% Schein, neuropathy; Charcot's foot 03/19/13 [employer] Surgical History (Updated 08/17/19 @ 13:38 by Mai Castelan NP) Appendectomy Childhood surgery, no date given by pt.HE Hemiarthroplasty (06/13/15) Dr Charlie Gallardo shoulder History of carpal tunnel release of both wrists (Acute ~05/2012) Hx of umbilical hernia repair (Inactive 09/06/15) Incarcerated umbilical hernia repair (09/06/15) Tonsillectomy childhood surgery, no date given by pt.HE Social History Smoking/Tobacco Use Status: Current every day Alcohol Intake: never Drug use: Daily Substance use type: marijuana Adopted: No Foster care: No Housing: house Number of Children: 1 Communication Needs: Corrective Lenses Education Level: high school Details: didn't sophomore year Do you need help understanding health information?: Never 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 Pets and animals: Yes Current gender identity: female What is your relationship status?: Panel score (0-1 are the most socially isolated patients): 0 What type of physical activity do you participate in: none Do you feel safe at home: Yes Do you feel safe in your relationship?: Yes
--- NOTE | 2019-09-05 14:26 | PDOC.HHF2F_ITS ---
Home Health Certification Home Health Certification: 1. Encounter Date and Reason I certify that KELSEY GEORGE was seen by Naya López on 09/05/19 and that I had a [id number] encounter with this patient that meets the physician face to face encounter requirements. 2. Clinical Findings Supporting Skilled Need and Homebound Status I certify that home health services are medically necessary, include either intermittent fdc and/or physical/speech therapy, and that this gisselle ent is homebound in that absences from the home require considerable and taxing effort and are infrequent or of short duration, or are attributable to the need to receive medical care. [X] (a) Attached documentation from encounter provides clinical findings supporting skilled need and homebound status (including what assistance patient requires to leave the home). The encounter with the patient was in whole, or in part, for the following medical condition, which is the primary reason for home health care: SOB Correction: CHF, diabetes, medication noncompliance - assess for medication teaching/safety. Consider patient for [facility] program. Finally, blood work on 09/14/2019: CBC, BMP, magnesium - results to Mai Murillo Physical Therapy: eval and treat Homebound: unable to leave home without assistance 3. Certification and Authentication I certify that I composed the above information based on my clinical judgement relating to this patient's medical condition and, if applicable, clinical findings communicated to me by the NPP or inpatient physician who performed the Home Health Referral. All further orders will be obtained through ___Mai Murillo (Community Based Physician - PCP)
[2019-09-05 14:36] LABS: Iron 29 ug/dL (50-170); Total Iron Binding Capacity 393 ug/dL (250-450); Transferrin Sat 7 % (15-50)
[2019-09-05 14:48] LABS: Ferritin 15 ng/mL (8-252); TSH 1.08 uIU/mL (0.36-3.74)
--- NOTE | 2019-09-05 14:48 | PDOC.CMDIS ---
LACE Index Scoring Tool - Questions: Length of Stay (in days): 3 Acuity (Admit via E.D.?): Yes Comorbidities: Diabetes w/o Complication, Chronic Pulmonary Disease, Liver or Renal Disease E.D. Visits: 1 - Answers: Total Score: 12 Risk of Readmission: High Risk Care Management Discharge Reason for Hospitalization: Diarrhea, UTI, Hypokalemia Discharge Plan: Carmel will return home when ready per MD. She will have new orders for VNA RN/PT, through [facility] and resume [facility] Moderate needs. Carmel will also have new orders for a nebulizer machine, per MD. She will follow up with her PCP and plan of care as prescribed, and transport via private vehicle with her son. Patient/Family Education Needs: Review of discharge instructions, discuss Ask Me Three. Services Needed at Discharge: Home Health Care Services (RN, PT)
== END 2019-09-05 15:06 | disposition home health service (06) | DRG 292 ==
LOC: ER 14:21 → RCU 14:45 → MS 23:25
PROVIDERS: General Practice; Admitting Provider Internal Medicine; Emergency Provider Student in an Organized Health Care Education/Training Program; PCP Nurse Practitioner Adult Health; Visit Provider Internal Medicine
DX: I50.23 Acute on chronic systolic (congestive) heart failure (principal); I42.9 Cardiomyopathy, unspecified; I13.0 Hypertensive heart and chronic kidney disease with heart failure and stage 1 through stage 4 chronic kidney disease, or unspecified chronic kidney disease; E11.40 Type 2 diabetes mellitus with diabetic neuropathy, unspecified; Z79.4 Long term (current) use of insulin; J44.9 Chronic obstructive pulmonary disease, unspecified; F17.210 Nicotine dependence, cigarettes, uncomplicated; Z03.818 Encounter for observation for suspected exposure to other biological agents ruled out; D50.9 Iron deficiency anemia, unspecified; K11.8 Other diseases of salivary glands; Z91.14 Patient's other noncompliance with medication regimen; I25.10 Atherosclerotic heart disease of native coronary artery without angina pectoris; H92.01 Otalgia, right ear; E11.22 Type 2 diabetes mellitus with diabetic chronic kidney disease; N18.3 Chronic kidney disease, stage 3 (moderate); G89.29 Other chronic pain; M54.9 Dorsalgia, unspecified; B35.4 Tinea corporis; E11.65 Type 2 diabetes mellitus with hyperglycemia; K21.9 Gastro-esophageal reflux disease without esophagitis; Z73.89 Other problems related to life management difficulty; Z71.3 Dietary counseling and surveillance
CPT/HCPCS: 36415; 70491; 80048; 80053; 82805; 85027; 87040; 87449; 93005; 93306; 94618; 94640; 96374; 96376; 97162; 97530; 99223; 99233; 99239; 99285; J1650; U0003; 71045; 81003; 81015; 82728; 83540; 83550; 83735; 83880; 84132; 84443; 84484; 85025; 85610; 85730; 93010; 99284; J1940; J1941; J2060; J3475; J3490

== ENCOUNTER 2019-09-15 11:37 | Outpatient (REF) | payer MEDICARE, MEDICAID, SELFPAY ==
[2019-09-15 14:36] LABS: ALT 24 U/L (14-59); AST 30 U/L (15-37); Albumin 3.7 g/dL (3.4-5.0); Alkaline Phosphatase 123 U/L (46-116); BUN 13 mg/dL (7-18); Bilirubin, Total 0.4 mg/dL (0.2-1.0); Calcium 9.2 mg/dL (8.5-10.1); Chloride 99 mmol/L (98-107); Glucose 213 mg/dL (74-106); Magnesium 1.6 mg/dL (1.8-2.4); NT-proBNP 742 pg/mL (<300); Potassium 4.9 mmol/L (3.5-5.1); Sodium 135 mmol/L (136-145); TSH (W/Ref FT4) 2.54 uIU/mL (0.36-3.74); Total Protein 7.3 g/dL (6.4-8.2)
[2019-09-15 14:49] LABS: Calculated LDL 84 mg/dL (<100); Cholesterol 177 mg/dL (<200); HDL Cholesterol 56 mg/dL (40-60); Triglyceride 186 mg/dL (<150)
== END 2019-09-15 11:57 ==
LOC: LBN 11:37
PROVIDERS: PCP Nurse Practitioner Adult Health; Visit Provider Nurse Practitioner Adult Health
DX: I50.23 Acute on chronic systolic (congestive) heart failure (principal); E03.9 Hypothyroidism, unspecified; D50.9 Iron deficiency anemia, unspecified; E11.49 Type 2 diabetes mellitus with other diabetic neurological complication; I10 Essential (primary) hypertension; N18.3 Chronic kidney disease, stage 3 (moderate)
CPT/HCPCS: 80053; 80061; 83735; 83880; 84443

== ENCOUNTER 2019-09-22 11:37 | Outpatient (REF) | payer MEDICARE, MEDICAID, SELFPAY ==
[2019-09-22 13:19] LABS: Abs Immature Grans 0.03 k/cumm (0.0-0.09); Absolute Basophil Count 0.02 k/cumm (0.0-0.2); Absolute Eosinophil Count 0.24 k/cumm (0.0-0.7); Absolute Lymphocyte Count 1.75 k/cumm (1.2-3.4); Absolute Monocyte Count 0.64 k/cumm (0.11-0.7); Absolute Neutrophil Count 5.58 k/cumm (1.2-6.7); Basophils % 0.2; Eosinophils % 2.9; HCT 33.6 % (36.0-46.0); Immature Grans % 0.4 %; Lymphocytes % 21.2; Mean Corp. HGB Concentration 29.8 g/dL (32.0-36.0); Mean Corpuscular Hemoglobin 22.3 pg (27.0-33.0); Mean Corpuscular Volume 74.8 fL (80-95); Mean Platelet Volume 11.4 fL (8.0-11.0); Monocytes % 7.7; Neutrophils % 67.6; Platelet Count 344 x1000/uL (130-400); RBC 4.49 m/cumm (4.00-5.20); RBC Distribution Width 18.2 % (11.7-14.6); White Blood Cell Count 8.26 k/cumm (4.4-10.8)
[2019-09-22 13:28] LABS: Hemoglobin A1C 9.2 % (3.8-5.6)
[2019-09-22 13:29] LABS: Anisocytosis 2+; Diff Comment RBC Morph Reviewed; Hypochromasia 3+; Microcytosis 3+; Poikilocytes 2+; Polychromasia Present
== END 2019-09-22 11:57 ==
LOC: LBN 11:37
PROVIDERS: PCP Nurse Practitioner Adult Health; Visit Provider Nurse Practitioner Adult Health
DX: D50.9 Iron deficiency anemia, unspecified (principal); E03.9 Hypothyroidism, unspecified; E11.49 Type 2 diabetes mellitus with other diabetic neurological complication; I10 Essential (primary) hypertension; E66.9 Obesity, unspecified
CPT/HCPCS: 83036; 85025

== ENCOUNTER → 2019-11-09 13:54 | Outpatient (BNVA) | payer MEDICARE, MEDICAID, SELFPAY | PROVIDERS: PCP Nurse Practitioner Adult Health; Referring Provider Nurse Practitioner Adult Health; Visit Provider Internal Medicine Cardiovascular Disease | DX: I50.23 Acute on chronic systolic (congestive) heart failure (principal); I42.9 Cardiomyopathy, unspecified; I27.20 Pulmonary hypertension, unspecified; E66.9 Obesity, unspecified; I25.10 Atherosclerotic heart disease of native coronary artery without angina pectoris; E11.69 Type 2 diabetes mellitus with other specified complication; E11.22 Type 2 diabetes mellitus with diabetic chronic kidney disease; N18.3 Chronic kidney disease, stage 3 (moderate); I13.0 Hypertensive heart and chronic kidney disease with heart failure and stage 1 through stage 4 chronic kidney disease, or unspecified chronic kidney disease; J44.9 Chronic obstructive pulmonary disease, unspecified | CPT/HCPCS: 99204; 99215 ==

== ENCOUNTER 2020-01-23 17:49 | Inpatient (IN) | payer MEDICARE, MEDICAID, SELFPAY ==
[2020-01-23] VITALS (60 sets, daily range): BP systolic 98–165; BP diastolic 56–102; PULSE 90–182; RESP 17–38; TEMP 36.6–38.4; O2SAT 87–95
--- NOTE | 2020-01-23 17:45 | RT.EKG_ITS ---
APPROVED REPORT Exam: Resting ECG Patient Location: E HR:136 bpm ECG Measurements Heart Rate 136 AXIS NJ 168 P -64 QRSd 127 QRS 13 QT 340 T 62 QTc 510 Conclusion EKG 10: 15 Rate 136, sinus rhythm, nonspecific intraventricular conduction delay versus incomplete right bundle branch block. No evidence of STEMI. Atypical QRS morphology with nonspecific QRS widening. Seems t o be consistent with previous EKGs.
[2020-01-23] MEDS: Normal Saline 1,000 ML 1000 ML IV (17:55)
--- NOTE | 2020-01-23 18:00 | DI.CT_ITS ---
EXAM: CT HEAD CERVICAL SPINE WO CLINICAL HISTORY: fall/injury TECHNIQUE: COMPARISON: CT CTA THORAX/ABDOMEN/PELVIS from 04/01/[address] NECK W from 09/04/2019 FINDINGS: Noncontrast cranial CT was performed. There is significant motion artifact. No gross intracranial h emorrhage, mass effect, or midline shift. Orbital and temporal bone structures appear intact. Noncontrast cervical spine CT was performed. There are moderate degenerative changes. No evidence o f acute cervical spine fracture or dislocation. Imaging is limited by motion artifact. IMPRESSION: Imaging limited by motion artifact. No evidence of acute intracranial hemorrhage. No evidence of ac [place] cervical spine fracture. RADIATION DOSE DELIVERED: Total DLP
[2020-01-23 18:16] LABS: Abs Immature Grans 0.11 10^3/uL (0.0-0.06); Absolute Basophil Count 0.06 10^3/uL (0.0-0.2); Absolute Lymphocyte Count 1.33 10^3/uL (1.2-3.4); Absolute Monocyte Count 0.58 10^3/uL (0.1-0.8); Basophils % 0.4; Eosinophils % 0.9; HCT 42.9 % (36.0-46.0); HGB 13.9 g/dL (11.2-15.7); Immature Grans % 0.8; Lymphocytes % 9.6; MCH 27.9 pg (27.0-33.0); MCHC 32.4 % (32.0-36.0); MCV 86.1 fL (80-95); MPV 11.4 fL (8.0-11.0); Monocytes % 4.2; Neutrophils % 84.1; Nucleated RBC 0 %; Platelet Count 299 10^3/uL (130-400); RBC 4.98 10^6/uL (3.93-5.22); RDW 15.4 % (11.7-14.6); RDW-SD 48.4 fL; WBC 13.82 10^3/uL (4.4-10.8)
[2020-01-23 18:23] LABS: Absolute Eosinophil Count 0.12 10^3/uL (0.0-0.7); Absolute Neutrophil Count 11.62 10^3/uL (1.2-6.7)
[2020-01-23] MEDS: ACETAMINOPHEN 1,000 MG/100 ML BTL 400 MG (18:24)
[2020-01-23] MEDS: Normal Saline Flush 10 ML SYR IVP (18:25)
[2020-01-23] MEDS: cefTRIAXone 2 GM/50 ML BAG IVPB (18:25)
[2020-01-23 18:30] LABS: BE (Venous) 1 mmol/L (-2-3); HCO3 (Venous) 26 mmol/L (23-28); O2 Sat (Venous) 50 %; TCO2 (Venous) 24 mmol/L (24-29); pCO2 (Venous) 44 mmHg (41-51); pH (Venous) 7.38 (7.31-7.41); pO2 (Venous) 28 mmHg
[2020-01-23 18:32] LABS: INR 0.9 (0.9-1.1); PTT Activated 22.3 sec (21.0-31.4); Prothrombin Time 9.4 sec (9.3-11.0)
[2020-01-23 18:35] LABS: Lactate 4.5 mmol/L (0.6-1.4)
[2020-01-23 18:44] LABS: ALT 24 U/L (14-59); AST 15 U/L (15-37); Albumin 3.8 g/dL (3.4-5.0); Alkaline Phosphatase 128 U/L (46-116); Anion Gap 15.5 mmol/L (3-11); BUN 17 mg/dL (7-18); Bilirubin, Total 0.5 mg/dL (0.2-1.0); CO2 22.5 mmol/L (21.0-32.0); CREATININE 1.82 mg/dL (0.55-1.02); Calcium 9.9 mg/dL (8.5-10.1); Chloride 95 mmol/L (98-107); Estimated GFR 27.88 (mL/min/1.73m2); Glucose 459 mg/dL (74-106); NT-proBNP 1455 pg/mL (<300); Sodium 133 mmol/L (136-145); TSH (W/Ref FT4) 1.99 uIU/mL (0.36-3.74); Total Protein 7.8 g/dL (6.4-8.2)
[2020-01-23 18:48] LABS: Ammonia < 10 umol/L (11-32)
[2020-01-23 18:48] LABS: Troponin I < 0.05 ng/mL (<0.06)
--- NOTE | 2020-01-23 18:50 | NUR.NOTE ---
Medication reconciliation done from outpatient pharmacy list. Patient unable to answer due to patient status at this time. Attempted to contact next of kin without success. SU Naranjo notified. Nursing Note:
--- NOTE | 2020-01-23 18:58 | DI.CT_ITS ---
EXAM: CT CHEST WO CLINICAL HISTORY: cough/fever/septic TECHNIQUE: COMPARISON: CT CHEST FOR PULMONARY EMBOLUS from 06/12/2016 FINDINGS: CT examination of the chest was performed without contrast administration. Examination is limited by motion artifact. There is large hiatal hernia. Cardiac size is within normal limits. No gross pul monary consolidation. No pleural effusion. No mediastinal or hilar adenopathy. Tracheobronchial tr ee appears intact. IMPRESSION: No evidence of pulmonary consolidation or other acute process. RADIATION DOSE DELIVERED: Total DLP
--- NOTE | 2020-01-23 19:13 | DI.VRAD_ITS ---
PROCEDURE INFORMATION: Exam: CT Head Without Contrast Exam date and time: 01/23/2020 6:48 PM Age: 64 years old Clinical indication: Injury or trauma; Fall; Altered mental status/memory loss; Initial encounter; Blunt trauma TECHNIQUE: Imaging protocol: Computed tomography of the head without contrast. COMPARISON: No relevant prior studies available. FINDINGS: No evidence of hemorrhage. No mass effect. No acute intracranial abnormality. No evidence of acute fracture. IMPRESSION: No evidence of acute intracranial process. PROCEDURE INFORMATION: Exam: CT Cervical Spine Without Contrast Exam date and time: 01/23/2020 6:48 PM Age: 64 years old Clinical indication: Injury or trauma; Fall; Altered mental status/memory loss; Initial encounter; Blunt trauma TECHNIQUE: Imaging protocol: Computed tomography images of the cervical spine without contrast. COMPARISON: No relevant prior studies available. FINDINGS: The bony structures are in anatomic alignment. No fracture is present. No radiopaque foreign body is identified. Parasinous soft tissues unremarkable. Lung apices within normal limits. IMPRESSION: No evidence of acute bony abnormality. Dictated and Authenticated by: Kelvin Loza MD. Ordering:ANTHONY Naranjo MD
[2020-01-23] MEDS: DOXYCYCLINE 100 MG in Normal Saline 100 ML IVPB (19:15)
--- NOTE | 2020-01-23 19:21 | DI.VRAD_ITS ---
PROCEDURE INFORMATION: Exam: CT Chest Without Contrast Exam date and time: 01/23/2020 6:52 PM Age: 64 years old Clinical indication: Shortness of breath TECHNIQUE: Imaging protocol: Computed tomography of the chest without contrast. COMPARISON: CTA THORAX/ABDOMEN/PELVIS 04/01/2017 9:59 AM FINDINGS: Moderate-sized hiatal hernia. Prior right shoulder replacement. No significant focal consolidation. No pleural effusion. No pneumothorax. Incidental prior cholecystectomy. IMPRESSION: No specific etiology identified for the patient's symptoms. Dictated and Authenticated by: Kelvin Loza MD. Ordering:ANTHONY Naranjo MD
[2020-01-23 19:31] LABS: Procalcitonin 0.2 ng/mL
[2020-01-23] MEDS: VANCOMYCIN 2,000 MG in Normal Saline 500 ML 333.3333 MG IVPB (19:31)
[2020-01-23 19:34] LABS: Bilirubin Negative (Negative); Blood Trace-intact (Negative); Clarity Clear (Clear); Glucose 500 mg/dL (Negative); Ketones Negative (Negative); Leukocyte Esterase Negative (Negative); Nitrite Negative (Negative); Specific Gravity 1.015 (1.005-1.025); Urobilinogen 0.2 EU/dL (Up TO 0.2); pH 5.5 (5-8)
--- NOTE | 2020-01-23 19:42 | NUR.NOTE ---
1937: cervical collar removed per provider verbal order Nursing Note:
[2020-01-23 19:43] LABS: Bacteria Negative HPF (Negative); C & S Indicated? No; Casts Negative LPF (Negative); Crystals Negative HPF (Negative); Epithelial Cells Rare HPF (Negative); Mucus Negative (Negative); Other Cells Negative (Negative); RBC 0-2 HPF (0-2); WBC 0-2 HPF (0-5)
--- NOTE | 2020-01-23 20:01 | W.PM.HP.N ---
Date of service: 01/23/20 Time of Service: 20:01 Assessment and Plan Assessment and plan (1) Fever: Status: Acute Assessment and plan: Evident infection, source not clear. Tachycardia, dropping blood pressure and elevated lactate raise concern for emerging picture of sepsis. Will continue broad spectrum antibiotics pending cxx, and aggressive volume support as needed. History of Present Illness History of Present Illness Chief Complaint: FEVER Narrative: 64 female with multiple problems. Activated [facility], on arrival EMS found down (says hse fell), temp 100.7 reported. In ER findings of note for sinus tach 130-140, BP 140/102, RR 30, t 37.2, sats 91% (baseline approx). WBC 13K, lactate 4.8, U/A unremarkable, chest CT unremarkable. Flu swab neg. Blood cx obtained, given doses of Rocephin, Vanco and Doxy. Admitted for further eval and management. Patient poor historian (per ER staff tico sushant saucedo) and unable to provide further information other than stating she does not feel well. Review of Systems All systems reviewed & are unremarkable except as noted in HPI and below PFSH Medical History Abdominal aortic aneurysm (11/27/12) Identified 10/31/12 CT abd-pelvis; 4cm; stable 4.1 cm 07/2014 CT, 4.3cm 11/2016, 5.5cm 03/04/17 ([facility] [place] Brennen Nava following; see 04/2016 progress note. 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 Ward Calculus of kidney and ureter Cardiomyopathy Dr Fair, EF 45% Jun 2014 ECHO (h/o much worse) 10/2016 ECHO: EF 40-45% 10/2016 MPI: no acute, but persistent old infarct Carpal tunnel syndrome (08/14/12) resolved s/p b/l release Chronic back pain History of chronic opioids, now none Chronic kidney disease, stage III (moderate) (08/14/12) Cortical atrophy R kidney on CT 07/2014; multiple cysts COPD, mild (07/02/17) PFTs Coronary artery disease involving [place] coronary artery of [place] heart INFERIOR NE 1996, 100% RCA occlusion; large inf defect on perfusion scan, dr Fair Depressive disorder (08/14/12) Diabetes type 2, uncontrolled 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 Guerra DJD of right shoulder (01/01/13) 12/2012 x-ray severe DJD glenohumeral joint Dr. Guerra; not a surgical candidate for replacement Episode of seizures in July 2012 Esophageal reflux disease (07/24/11) UPPER GI SERIES 11/14/2012, MOD HIATAL HERNIA SEVERE GERD Headache (08/31/13) Hypertension Hypothyroidism Incarcerated umbilical hernia (09/06/15) Marijuana dependence Nausea and vomiting (08/01/14) a. previous history of possible marijuana induced hyperemesis Neurogenic bladder (07/24/11) Does not need to self-cath 11/2016: +Urinary retention [facility] inpt requiring cath; resolved by time of discharge Nicotine dependence Olecranon bursitis, left elbow Other and unspecified hyperlipidemia (08/14/12) Physical deconditioning RLS (restless legs syndrome) Spinal stenosis of lumbar region with neurogenic claudication (12/08/13) 04/13/2013 MRI Lumbar Spine: Facet arthropathy, DJD, L4-5, L5-S1 central spinal and neural foraminal stenosis Neurosurgery referral, but not a surgical candidate [facility] chronic pain service Chronic Pain [facility] Pain Center consult 10/26/15 [facility] [place] [facility] [facility] consult 03/04/17 (Sanket Sawant MD) 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) Neuro work-up 2010/[place] +Hereditary, 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 Ambulates with cane when out; walker at home Tinea corporis Type II diabetes mellitus with neurological manifestations (05/04/14) Goal A1c < 7.5% Schein, neuropathy; Charcot's foot 03/19/13 [facility] Surgical History Appendectomy Childhood surgery, no date given by pt.HE Hemiarthroplasty (06/13/15) Dr Guerra R shoulder History of carpal tunnel release of both wrists (~05/2012) Hx of umbilical hernia repair (09/06/15) Incarcerated umbilical hernia repair (09/06/15) Tonsillectomy childhood surgery, no date given by pt.HE Family History Mother , at 78yo from dementia Dementia Father , MVA (truck) accident at 45yo No problems noted. Sister Thyroid cancer Other Diabetes FH: mental illness Social History Smoking/Tobacco Use Status: Current every day Alcohol Intake: never Drug use: Daily Substance use type: marijuana Adopted: No Foster care: No Housing: house Number of Children: 1 Communication Needs: Corrective Lenses Education Level: high school Details: didn't sophomore year Do you need help understanding health information?: Never 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 Pets and animals: Yes Current gender identity: female What is your relationship status?: Panel score (0-1 are the most socially isolated patients): 0 What type of physical activity do you participate in: none Do you feel safe at home: Yes Do you feel safe in your relationship?: Yes Meds Home Medications and Allergies Home Medications Medication Instructions Recorded Confirmed Type Medical Thc 1 misc INHALATION PRN PRN 04/06/14 11/09/19 History budesonide-formoterol [Symbicort] 2 puff INHALATION BID #3 inhaler 01/28/17 11/09/19 Rx nicotine 10 mg inhalation cartridge 1 inh IH [id number] PRN #168 each 10/30/18 01/23/20 Rx finasteride 5 mg tablet 1.25 mg PO DAILY tab 02/09/19 01/23/20 History ezetimibe 10 mg tablet 10 mg PO DAILY #90 tab-cap 03/03/19 01/23/20 Rx levothyroxine 50 mcg tablet 50 mcg PO DAILY #90 tab-cap 03/03/19 01/23/20 Rx mupirocin 2 % topical ointment 1 applic TP BID #15 gm 03/03/19 01/23/20 Rx buspirone 30 mg tablet 15 mg PO BID #90 tab 06/11/19 01/23/20 Rx losartan 50 mg tablet 50 mg PO DAILY #90 tab 06/11/19 01/23/20 Rx benzonatate 100 mg capsule 100 mg PO TID PRN #90 cap 07/02/19 11/09/19 Rx ipratropium bromide 0.03 % nasal 2 spray SANKET TID #30 ml 07/25/19 01/23/20 Rx spray acetaminophen 500 mg capsule 1,000 mg PO TID #180 cap 08/17/19 11/09/19 Rx guaifenesin 1,200 mg tablet, 1,200 mg PO Q12H PRN #60 tab 08/17/19 01/23/20 Rx extended release 12 hr blood sugar diagnostic #400 each 08/21/19 11/09/19 Rx lancets #400 each 08/21/19 11/09/19 Rx docusate sodium [Colace] 100 mg PO BID #60 cap 09/05/19 01/23/20 Rx ipratropium-albuterol 3 ml IH Q4H PRN #180 ml 09/05/19 01/23/20 Rx duloxetine 60 mg capsule,delayed 60 mg PO BID #180 tab-cap 09/07/19 01/23/20 Rx release pantoprazole 40 mg tablet,delayed 40 mg PO DAILY #90 tab-cap 09/07/19 01/23/20 Rx release ascorbic acid (vitamin C) 250 mg 250 mg PO BID #60 tab 09/14/19 11/09/19 Rx tablet ferrous gluconate 324 mg (37.5 mg 324 mg PO BID #60 tab 09/14/19 01/23/20 Rx iron) tablet naproxen 250 mg tablet 250 mg PO BID PRN tab 09/25/19 01/23/20 History semaglutide 0.25 mg SC QWEEK #1.5 ml 09/25/19 01/23/20 Rx insulin glargine 100 unit/mL (3 80 unit SUB-Q HS #220 ml 10/07/19 01/23/20 Rx mL) subcutaneous pen insulin aspart U-100 100 unit/mL See Rx Instructions SC AC #80 ml 10/09/19 01/23/20 Rx (3 mL) subcutaneous pen pen needle, diabetic 32 gauge x #540 ndl 10/16/19 11/09/19 Rx simvastatin 40 mg tablet 40 mg PO DAILY #90 tab 10/16/19 01/23/20 Rx torsemide 10 mg tablet 20 mg PO DAILY tab-cap 11/09/19 01/23/20 History acetaminophen 300 mg-codeine 30 mg 1 tab PO DAILY PRN #5 tab 11/18/19 01/23/20 Rx tablet diclofenac sodium 1 % topical gel 2 g TOPICAL BID PRN #1 tube 12/23/19 01/23/20 Rx prednisone 20 mg tablet See Rx Instructions PO .daily in 12/23/19 12/23/19 Rx AM with joann #9 tab albuterol sulfate 90 mcg/actuation 1 - 2 puff INHALATION Q4H PRN #18 12/28/19 01/23/20 Rx aerosol inhaler gm miscellaneous medical supply each 01/07/20 History Trapeze See Rx Instructions .ROUTE 01/08/20 01/08/20 Rx .COMPLEX #1 unit insulin glargine [Lantus Solostar SUBCUT 01/23/20 01/23/20 History U-100 Insulin] metoprolol tartrate 25 mg PO BID 01/23/20 01/23/20 History semaglutide [Ozempic] mg SUBCUT 01/23/20 01/23/20 History Allergies Allergy/AdvReac Type Severity Reaction Status Date / Time bupropion HCl Allergy Severe seizures Verified 01/23/20 18:08 [From Wellbutrin] carvedilol [From Coreg] Allergy Mild Itching Verified 01/23/20 18:08 morphine AdvReac Unknown nausea Verified 01/23/20 18:08 Exam Narrative Exam Narrative: 117/77 (initial 140/102), 130, 37.3, 20, 91% RA. HEENT few askew-red papules right side of forehead and small well apposed lac right upper lid. neck supple; lungs diminished; heart distnat, tachy/regular; abdomen soft and NT; extremities 2-3 cm granulating ulcer overlying right olecranon bursa w/o any D/C or significant erythema; neuro Ox3, moves all 4s Results Labs Result diagrams: 01/23/20 17:30 01/23/20 17:30 Labs: Laboratory Results - last 24 hr 01/23/20 01/23/20 01/23/20 17:30 17:30 17:30 WBC 13.82 H RBC 4.98 Hgb 13.9 Hct 42.9 MCV 86.1 MCH 27.9 MCHC 32.4 RDW 15.4 H Plt Count 299 MPV 11.4 H Immature Gran % 0.8 Neutrophils % 84.1 Lymphocytes % 9.6 Monocytes % 4.2 Eosinophils % 0.9 Basophils % 0.4 Nucleated RBC % 0 Absolute Neutrophils 11.62 H Absolute Lymphocytes 1.33 Absolute Monocytes 0.58 Absolute Eosinophils 0.12 Absolute Basophils 0.06 PT 9.4 INR 0.9 APTT 22.3 VBG pH VBG pCO2 VBG pO2 VBG HCO3 VBG Total CO2 VBG O2 Saturation VBG Base Excess VBG Lactate Sodium 133 L Potassium 4.0 Chloride 95 L Carbon Dioxide 22.5 Anion Gap 15.5 H BUN 17 Creatinine 1.82 H Estimated GFR/1.73 m2 27.88 Glucose 459 H Calcium 9.9 Total Bilirubin 0.5 AST 15 ALT 24 Alkaline Phosphatase 128 H Ammonia Troponin I < 0.05 NT-Pro-B Natriuret Pep 1455 H Total Protein 7.8 Albumin 3.8 Procalcitonin TSH 1.99 Urine Color Urine Clarity Urine pH Ur Specific [place] Urine Protein Urine Ketones Urine Blood Urine Nitrite Urine Bilirubin Urine Urobilinogen Ur Leukocyte Esterase Urine RBC Urine WBC Ur Epithelial Cells Urine Crystals Urine Bacteria Urine Casts Urine Mucus Urine Other Ur Culture Indicated? Urine Glucose 01/23/20 01/23/20 01/23/20 18:21 18:21 18:21 WBC RBC Hgb Hct MCV MCH MCHC RDW Plt Count MPV Immature Gran % Neutrophils % Lymphocytes % Monocytes % Eosinophils % Basophils % Nucleated RBC % Absolute Neutrophils Absolute Lymphocytes Absolute Monocytes Absolute Eosinophils Absolute Basophils PT INR APTT VBG pH 7.38 VBG pCO2 44 VBG pO2 28 VBG HCO3 26 VBG Total CO2 24 VBG O2 Saturation 50 VBG Base Excess 1 VBG Lactate 4.5 H* Sodium Potassium Chloride Carbon Dioxide Anion Gap BUN Creatinine Estimated GFR/1.73 m2 Glucose Calcium Total Bilirubin AST ALT Alkaline Phosphatase Ammonia < 10 L Troponin I NT-Pro-B Natriuret Pep Total Protein Albumin Procalcitonin TSH Urine Color Urine Clarity Urine pH Ur Specific [place] Urine Protein Urine Ketones Urine Blood Urine Nitrite Urine Bilirubin Urine Urobilinogen Ur Leukocyte Esterase Urine RBC Urine WBC Ur Epithelial Cells Urine Crystals Urine Bacteria Urine Casts Urine Mucus Urine Other Ur Culture Indicated? Urine Glucose 01/23/20 01/23/20 18:21 19:20 WBC RBC Hgb Hct MCV MCH MCHC RDW Plt Count MPV Immature Gran % Neutrophils % Lymphocytes % Monocytes % Eosinophils % Basophils % Nucleated RBC % Absolute Neutrophils Absolute Lymphocytes Absolute Monocytes Absolute Eosinophils Absolute Basophils PT INR APTT VBG pH VBG pCO2 VBG pO2 VBG HCO3 VBG Total CO2 VBG O2 Saturation VBG Base Excess VBG Lactate Sodium Potassium Chloride Carbon Dioxide Anion Gap BUN Creatinine Estimated GFR/1.73 m2 Glucose Calcium Total Bilirubin AST ALT Alkaline Phosphatase Ammonia Troponin I NT-Pro-B Natriuret Pep Total Protein Albumin Procalcitonin 0.2 TSH Urine Color Yellow Urine Clarity Clear Urine pH 5.5 Ur Specific [place] 1.015 Urine Protein Negative Urine Ketones Negative Urine Blood Trace-intact H Urine Nitrite Negative Urine Bilirubin Negative Urine Urobilinogen 0.2 Ur Leukocyte Esterase Negative Urine RBC 0-2 Urine WBC 0-2 Ur Epithelial Cells Rare Urine Crystals Negative Urine Bacteria Negative Urine Casts Negative Urine Mucus Negative Urine Other Negative Ur Culture Indicated? No Urine Glucose 500 H Last Vital Signs Temp 37.3 C 01/23/20 19:44 Pulse 132 H 01/23/20 19:44 Resp 20 01/23/20 19:44 BP 117/77 01/23/20 19:44 Pulse Ox 91 L 01/23/20 19:44 COVID-19 Screening Have you,or household,traveled outside [place] in last 14 days?: No
--- NOTE | 2020-01-23 20:12 | W.ED.GENAD ---
Discharge Plan Disposition Patient Disposition: OTHER Condition: Serious Discharge Details Clinical Impression: Acute febrile illness, Elevated lactic acid level, Leukocytosis Primary Care Provider: Mai Castelan ED Provider: Jose A Lazaro Discharge Data Discharge Date/Time-TO BE ENTERED AT DEPARTURE: 01/23/20 21:05 Medical Decision Making 64-year-old female with extensive past medical history presents with tachycardia, cough, febrile, status post fall striking her head and now in C-spine precautions. Case was immediately discussed with Dr. Mcdonald. Will initiate septic work-up, give IV fluid 1 L now, patient already receiving 1 from EMS. She does have a history of CHF do not want to aggressively hydrate. She is currently not hypotensive. We will give IV Tylenol. We will also give IV Rocephin 2 g. Given the fall will obtain CT of her head, C-spine and chest. Laboratory values reveal a white blood cell count of 13.82 hemoglobin 13.9 hematocrit 42.9 platelet count 299. INR 0.9. Lactate of 4.5. Sodium 133, potassium 4.0 anion gap 15.5 creatinine 1.82 with estimated GFR of 27.880. Glucose 459. Ammonia less than 10. Troponin less than 0.05, BNP 1455. Procalcitonin 0.2 TSH 1.99 urinalysis trace blood no signs of infection. Flu negative. Blood cultures, urine culture, COVID pending. CT imaging of head, C-spine, chest unremarkable per radiology. C-collar removed. Heart rate trending downward into the 120s. Blood pressure remains in the 120s over 60s. She does not appear to be coughing as much as she did when she presented. Her temperature is trending downward. Initial work-up reveals nonspecific process, lactate of 4.5, fever, tachycardia. Unfortunately there is no clear source of infection. Discussed the case with Dr. Mcdonald, given the lactate of 4.5 he recommends additional broad-spectrum antibiotics. IV vancomycin and doxycycline added to the regimen. At this time patient has an unclear etiology of her infection, clearly unable to be discharged home. I will discuss the case with our hospitalist team to discuss admission. Case discussed with Dr. Harkins who is agreeable to admission and will evaluate the patient in the ER. Medical Records Medical records reviewed: Yes I reviewed the patient's medical records. Lab Data Lab results reviewed: Yes I reviewed the patient's lab results. Lab results narrative: 01/23/20 18:21 Nasopharynx Influenza Types A,B Antigen - Final 01/23/20 18:15 Blood Blood Culture - Pending 01/23/20 18:05 Blood Blood Culture - Pending Laboratory Tests Range/Units 01/23/20 01/23/20 01/23/20 17:30 17:30 17:30 WBC (4.4-10.8) 10^3/uL 13.82 H RBC (3.93-5.22) 10^6/uL 4.98 Hgb (11.2-15.7) g/dL 13.9 Hct (36.0-46.0) % 42.9 MCV (80-95) fL 86.1 MCH (27.0-33.0) pg 27.9 MCHC (32.0-36.0) % 32.4 RDW (11.7-14.6) % 15.4 H Plt Count (130-400) 10^3/uL 299 MPV (8.0-11.0) fL 11.4 H Immature Gran % 0.8 Neutrophils % 84.1 Lymphocytes % 9.6 Monocytes % 4.2 Eosinophils % 0.9 Basophils % 0.4 Nucleated RBC % % 0 Absolute Neutrophils (1.2-6.7) 10^3/uL 11.62 H Absolute Lymphocytes (1.2-3.4) 10^3/uL 1.33 Absolute Monocytes (0.1-0.8) 10^3/uL 0.58 Absolute Eosinophils (0.0-0.7) 10^3/uL 0.12 Absolute Basophils (0.0-0.2) 10^3/uL 0.06 PT (9.3-11.0) sec 9.4 INR (0.9-1.1) 0.9 APTT (21.0-31.4) sec 22.3 VBG pH (7.31-7.41) VBG pCO2 (41-51) mmHg VBG pO2 mmHg VBG HCO3 (23-28) mmol/L VBG Total CO2 (24-29) mmol/L VBG O2 Saturation % VBG Base Excess (-2-3) mmol/L VBG Lactate (0.6-1.4) mmol/L Sodium (136-145) mmol/L 133 L Potassium (3.5-5.1) mmol/L 4.0 Chloride (98-107) mmol/L 95 L Carbon Dioxide (21.0-32.0) mmol/L 22.5 Anion Gap (3-11) mmol/L 15.5 H BUN (7-18) mg/dL 17 Creatinine (0.55-1.02) mg/dL 1.82 H Estimated GFR/1.73 m2 (mL/min/1.73m2) 27.88 Glucose (74-106) mg/dL 459 H Calcium (8.5-10.1) mg/dL 9.9 Total Bilirubin (0.2-1.0) mg/dL 0.5 AST (15-37) U/L 15 ALT (14-59) U/L 24 Alkaline Phosphatase (46-116) U/L 128 H Ammonia (11-32) umol/L Troponin I (<0.06) ng/mL < 0.05 NT-Pro-B Natriuret Pep (<300) pg/mL 1455 H Total Protein (6.4-8.2) g/dL 7.8 Albumin (3.4-5.0) g/dL 3.8 Procalcitonin ng/mL TSH (0.36-3.74) uIU/mL 1.99 Urine Color (Yellow) Urine Clarity (Clear) Urine pH (5-8) Ur Specific Ransom (1.005-1.025) Urine Protein (Negative) mg/dL Urine Ketones (Negative) mg/dL Urine Blood (Negative) Urine Nitrite (Negative) Urine Bilirubin (Negative) Urine Urobilinogen (Up TO 0.2) EU/dL Ur Leukocyte Esterase (Negative) Urine RBC (0-2) HPF Urine WBC (0-5) HPF Ur Epithelial Cells (Negative) HPF Urine Crystals (Negative) HPF Urine Bacteria (Negative) HPF Urine Casts (Negative) LPF Urine Mucus (Negative) Urine Other (Negative) Ur Culture Indicated? Urine Glucose (Negative) mg/dL Range/Units 01/23/20 01/23/20 01/23/20 18:21 18:21 18:21 WBC (4.4-10.8) 10^3/uL RBC (3.93-5.22) 10^6/uL Hgb (11.2-15.7) g/dL Hct (36.0-46.0) % MCV (80-95) fL MCH (27.0-33.0) pg MCHC (32.0-36.0) % RDW (11.7-14.6) % Plt Count (130-400) 10^3/uL MPV (8.0-11.0) fL Immature Gran % Neutrophils % Lymphocytes % Monocytes % Eosinophils % Basophils % Nucleated RBC % % Absolute Neutrophils (1.2-6.7) 10^3/uL Absolute Lymphocytes (1.2-3.4) 10^3/uL Absolute Monocytes (0.1-0.8) 10^3/uL Absolute Eosinophils (0.0-0.7) 10^3/uL Absolute Basophils (0.0-0.2) 10^3/uL PT (9.3-11.0) sec INR (0.9-1.1) APTT (21.0-31.4) sec VBG pH (7.31-7.41) 7.38 VBG pCO2 (41-51) mmHg 44 VBG pO2 mmHg 28 VBG HCO3 (23-28) mmol/L 26 VBG Total CO2 (24-29) mmol/L 24 VBG O2 Saturation % 50 VBG Base Excess (-2-3) mmol/L 1 VBG Lactate (0.6-1.4) mmol/L 4.5 H* Sodium (136-145) mmol/L Potassium (3.5-5.1) mmol/L Chloride (98-107) mmol/L Carbon Dioxide (21.0-32.0) mmol/L Anion Gap (3-11) mmol/L BUN (7-18) mg/dL Creatinine (0.55-1.02) mg/dL Estimated GFR/1.73 m2 (mL/min/1.73m2) Glucose (74-106) mg/dL Calcium (8.5-10.1) mg/dL Total Bilirubin (0.2-1.0) mg/dL AST (15-37) U/L ALT (14-59) U/L Alkaline Phosphatase (46-116) U/L Ammonia (11-32) umol/L < 10 L Troponin I (<0.06) ng/mL NT-Pro-B Natriuret Pep (<300) pg/mL Total Protein (6.4-8.2) g/dL Albumin (3.4-5.0) g/dL Procalcitonin ng/mL TSH (0.36-3.74) uIU/mL Urine Color (Yellow) Urine Clarity (Clear) Urine pH (5-8) Ur Specific Ransom (1.005-1.025) Urine Protein (Negative) mg/dL Urine Ketones (Negative) mg/dL Urine Blood (Negative) Urine Nitrite (Negative) Urine Bilirubin (Negative) Urine Urobilinogen (Up TO 0.2) EU/dL Ur Leukocyte Esterase (Negative) Urine RBC (0-2) HPF Urine WBC (0-5) HPF Ur Epithelial Cells (Negative) HPF Urine Crystals (Negative) HPF Urine Bacteria (Negative) HPF Urine Casts (Negative) LPF Urine Mucus (Negative) Urine Other (Negative) Ur Culture Indicated? Urine Glucose (Negative) mg/dL Range/Units 01/23/20 01/23/20 01/23/20 18:21 19:20 20:55 WBC (4.4-10.8) 10^3/uL RBC (3.93-5.22) 10^6/uL Hgb (11.2-15.7) g/dL Hct (36.0-46.0) % MCV (80-95) fL MCH (27.0-33.0) pg MCHC (32.0-36.0) % RDW (11.7-14.6) % Plt Count (130-400) 10^3/uL MPV (8.0-11.0) fL Immature Gran % Neutrophils % Lymphocytes % Monocytes % Eosinophils % Basophils % Nucleated RBC % % Absolute Neutrophils (1.2-6.7) 10^3/uL Absolute Lymphocytes (1.2-3.4) 10^3/uL Absolute Monocytes (0.1-0.8) 10^3/uL Absolute Eosinophils (0.0-0.7) 10^3/uL Absolute Basophils (0.0-0.2) 10^3/uL PT (9.3-11.0) sec INR (0.9-1.1) APTT (21.0-31.4) sec VBG pH (7.31-7.41) VBG pCO2 (41-51) mmHg VBG pO2 mmHg VBG HCO3 (23-28) mmol/L VBG Total CO2 (24-29) mmol/L VBG O2 Saturation % VBG Base Excess (-2-3) mmol/L VBG Lactate (0.6-1.4) mmol/L Sodium (136-145) mmol/L Potassium (3.5-5.1) mmol/L Chloride (98-107) mmol/L Carbon Dioxide (21.0-32.0) mmol/L Anion Gap (3-11) mmol/L BUN (7-18) mg/dL Creatinine (0.55-1.02) mg/dL Estimated GFR/1.73 m2 (mL/min/1.73m2) Glucose (74-106) mg/dL Calcium (8.5-10.1) mg/dL Total Bilirubin (0.2-1.0) mg/dL AST (15-37) U/L ALT (14-59) U/L Alkaline Phosphatase (46-116) U/L Ammonia (11-32) umol/L Troponin I (<0.06) ng/mL 0.08 H* NT-Pro-B Natriuret Pep (<300) pg/mL Total Protein (6.4-8.2) g/dL Albumin (3.4-5.0) g/dL Procalcitonin ng/mL 0.2 TSH (0.36-3.74) uIU/mL Urine Color (Yellow) Yellow Urine Clarity (Clear) Clear Urine pH (5-8) 5.5 Ur Specific Ransom (1.005-1.025) 1.015 Urine Protein (Negative) mg/dL Negative Urine Ketones (Negative) mg/dL Negative Urine Blood (Negative) Trace-intact H Urine Nitrite (Negative) Negative Urine Bilirubin (Negative) Negative Urine Urobilinogen (Up TO 0.2) EU/dL 0.2 Ur Leukocyte Esterase (Negative) Negative Urine RBC (0-2) HPF 0-2 Urine WBC (0-5) HPF 0-2 Ur Epithelial Cells (Negative) HPF Rare Urine Crystals (Negative) HPF Negative Urine Bacteria (Negative) HPF Negative Urine Casts (Negative) LPF Negative Urine Mucus (Negative) Negative Urine Other (Negative) Negative Ur Culture Indicated? No Urine Glucose (Negative) mg/dL 500 H ECG Data Attestation: I personally reviewed and interpreted this ECG (s) as follows: Interpretation: Please see report from Dr. Mcdonald. Tachycardia, rate of 136. Nonspecific intraventricular conduction delay versus incomplete right bundle branch block. No STEMI. HPI General Mode of arrival: EMS. Date/Time Provider Initiated Documentation: 01/23/20 17:54. Limitations to Documentation: altered mental status. Information obtained by: patient and EMS. HPI Narrative: This is a 64-year-old female presenting to the ER via EMS. Apparently she initiated her life alarm button and when they tried to contact her they were unsuccessful. EMS dispatched to her house and they found her laying on the ground, had fallen striking her head. Patient has an extensive past medical history that includes cardiomyopathy, chronic back pain, chronic renal disease, COPD, CAD, CHF, pulmonary hypertension, obesity, diabetes, known noncompliance, hypertension, and apparently recently treated for an infected left olecranon bursitis. Unknown what antibiotic she was or is taking. She is a rather vague and poor historian. She repeats over and over again I am cold, get me a blanket. She reports that she simply has not felt well in a while but unable to give me a direct answer as to what has not felt well or exact timeline. She tells me that she remembers falling today but cannot give me much additional information. She denies losing consciousness, headache, chest pain, abdominal pain, vomiting, dysuria, diarrhea, numbness, tingling, weakness. She did strike her head falling, has a small abrasion to the right eyelid, reports a dry cough, mild nausea, and what she describes as chronic body pain. It is unclear whether or not she has been compliant with her medications recently. EMS noted that she did have a fever upon arrival and had tachycardia as well. She denies recent travel or sick contacts. Related Data Home Medications Medication Instructions Recorded Confirmed Medical Thc 1 misc INHALATION PRN PRN 04/06/14 11/09/19 budesonide-formoterol [Symbicort] 2 puff INHALATION BID #3 inhaler 01/28/17 11/09/19 nicotine 10 mg inhalation cartridge 1 inh IH 4-6XD PRN #168 each 10/30/18 01/23/20 finasteride 5 mg tablet 1.25 mg PO DAILY tab 02/09/19 01/23/20 ezetimibe 10 mg tablet 10 mg PO DAILY #90 tab-cap 03/03/19 01/23/20 levothyroxine 50 mcg tablet 50 mcg PO DAILY #90 tab-cap 03/03/19 01/23/20 mupirocin 2 % topical ointment 1 applic TP BID #15 gm 03/03/19 01/23/20 buspirone 30 mg tablet 15 mg PO BID #90 tab 06/11/19 01/23/20 losartan 50 mg tablet 50 mg PO DAILY #90 tab 06/11/19 01/23/20 benzonatate 100 mg capsule 100 mg PO TID PRN #90 cap 07/02/19 11/09/19 ipratropium bromide 0.03 % nasal 2 spray SANKET TID #30 ml 07/25/19 01/23/20 spray acetaminophen 500 mg capsule 1,000 mg PO TID #180 cap 08/17/19 11/09/19 guaifenesin 1,200 mg tablet, 1,200 mg PO Q12H PRN #60 tab 08/17/19 01/23/20 extended release 12 hr blood sugar diagnostic #400 each 08/21/19 11/09/19 lancets #400 each 08/21/19 11/09/19 docusate sodium [Colace] 100 mg PO BID #60 cap 09/05/19 01/23/20 ipratropium-albuterol 3 ml IH Q4H PRN #180 ml 09/05/19 01/23/20 duloxetine 60 mg capsule,delayed 60 mg PO BID #180 tab-cap 09/07/19 01/23/20 release pantoprazole 40 mg tablet,delayed 40 mg PO DAILY #90 tab-cap 09/07/19 01/23/20 release ascorbic acid (vitamin C) 250 mg 250 mg PO BID #60 tab 09/14/19 11/09/19 tablet ferrous gluconate 324 mg (37.5 mg 324 mg PO BID #60 tab 09/14/19 01/23/20 iron) tablet naproxen 250 mg tablet 250 mg PO BID PRN tab 09/25/19 01/23/20 semaglutide 0.25 mg SC QWEEK #1.5 ml 09/25/19 01/23/20 insulin glargine 100 unit/mL (3 80 unit SUB-Q HS #220 ml 10/07/19 01/23/20 mL) subcutaneous pen insulin aspart U-100 100 unit/mL See Rx Instructions SC AC #80 ml 10/09/19 01/23/20 (3 mL) subcutaneous pen pen needle, diabetic 32 gauge x #540 ndl 10/16/19 11/09/19/32 simvastatin 40 mg tablet 40 mg PO DAILY #90 tab 10/16/19 01/23/20 torsemide 10 mg tablet 20 mg PO DAILY tab-cap 11/09/19 01/23/20 acetaminophen 300 mg-codeine 30 mg 1 tab PO DAILY PRN #5 tab 11/18/19 01/23/20 tablet diclofenac sodium 1 % topical gel 2 g TOPICAL BID PRN #1 tube 12/23/19 01/23/20 prednisone 20 mg tablet See Rx Instructions PO .daily in 12/23/19 12/23/19 AM with joann #9 tab albuterol sulfate 90 mcg/actuation 1 - 2 puff INHALATION Q4H PRN #18 12/28/19 01/23/20 aerosol inhaler miscellaneous medical supply each 01/07/20 Trapeze See Rx Instructions .ROUTE 01/08/20 01/08/20 .COMPLEX #1 unit insulin glargine [Lantus Solostar SUBCUT 01/23/20 01/23/20 U-100 Insulin] metoprolol tartrate 25 mg PO BID 01/23/20 01/23/20 semaglutide [Ozempic] mg SUBCUT 01/23/20 01/23/20 Previous Rx's Medication Instructions Recorded budesonide-formoterol [Symbicort] 2 puff INHALATION BID #3 inhaler 01/28/17 nicotine 10 mg inhalation cartridge 1 inh IH 4-6XD PRN #168 each 10/30/18 ezetimibe 10 mg tablet 10 mg PO DAILY #90 tab-cap 03/03/19 levothyroxine 50 mcg tablet 50 mcg PO DAILY #90 tab-cap 03/03/19 mupirocin 2 % topical ointment 1 applic TP BID #15 gm 03/03/19 buspirone 30 mg tablet 15 mg PO BID #90 tab 06/11/19 losartan 50 mg tablet 50 mg PO DAILY #90 tab 06/11/19 benzonatate 100 mg capsule 100 mg PO TID PRN #90 cap 07/02/19 ipratropium bromide 0.03 % nasal 2 spray SANKET TID #30 ml 07/25/19 spray acetaminophen 500 mg capsule 1,000 mg PO TID #180 cap 08/17/19 guaifenesin 1,200 mg tablet, 1,200 mg PO Q12H PRN #60 tab 08/17/19 extended release 12 hr blood sugar diagnostic #400 each 08/21/19 lancets #400 each 08/21/19 docusate sodium [Colace] 100 mg PO BID #60 cap 09/05/19 ipratropium-albuterol 3 ml IH Q4H PRN #180 ml 09/05/19 duloxetine 60 mg capsule,delayed 60 mg PO BID #180 tab-cap 09/07/19 release pantoprazole 40 mg tablet,delayed 40 mg PO DAILY #90 tab-cap 09/07/19 release ascorbic acid (vitamin C) 250 mg 250 mg PO BID #60 tab 09/14/19 tablet ferrous gluconate 324 mg (37.5 mg 324 mg PO BID #60 tab 09/14/19 iron) tablet semaglutide 0.25 mg SC QWEEK #1.5 ml 09/25/19 insulin glargine 100 unit/mL (3 80 unit SUB-Q HS #220 ml 10/07/19 mL) subcutaneous pen insulin aspart U-100 100 unit/mL See Rx Instructions SC AC #80 ml 10/09/19 (3 mL) subcutaneous pen pen needle, diabetic 32 gauge x #540 ndl 10/16/19 simvastatin 40 mg tablet 40 mg PO DAILY #90 tab 10/16/19 acetaminophen 300 mg-codeine 30 mg 1 tab PO DAILY PRN #5 tab 11/18/19 tablet diclofenac sodium 1 % topical gel 2 g TOPICAL BID PRN #1 tube 12/23/19 prednisone 20 mg tablet See Rx Instructions PO .daily in 12/23/19 AM with joann #9 tab albuterol sulfate 90 mcg/actuation 1 - 2 puff INHALATION Q4H PRN #18 12/28/19 aerosol inhaler gm Trapeze See Rx Instructions .ROUTE 01/08/20 .COMPLEX #1 unit Allergies Allergy/AdvReac Type Severity Reaction Status Date / Time bupropion HCl Allergy Severe seizures Verified 01/23/20 18:08 [From Wellbutrin] carvedilol [From Coreg] Allergy Mild Itching Verified 01/23/20 18:08 morphine AdvReac Unknown nausea Verified 01/23/20 18:08 General Stated Complaint: GenMedical DINESH: 2 Review of Systems Constitutional Constitutional: Denies fatigue, Reports fever(s) and Reports headache(s) Eyes Eyes: Denies change in vision ENT Ears, Nose, Mouth, and Throat: Reports headache(s), Reports neck pain and Denies sore throat Cardiovascular Cardiovascular: Denies chest pain and Denies dyspnea Respiratory Respiratory: Reports cough and Denies dyspnea Gastrointestinal Gastrointestinal: Denies abdominal pain, Reports nausea and Denies vomiting Genitourinary Genitourinary: Denies dysuria Musculoskeletal Musculoskeletal: Reports back pain, Reports myalgias and Reports neck pain Integumentary/Breasts Skin/Breast: Denies rash Neurologic Neurologic: Reports headache(s) Endocrine Endocrine: Denies fatigue Hematologic/Lymphatic Hematologic/Lymphatic: Denies easy bleeding and Denies easy bruising COUNT INCLUDES THE [facility] Medical History Abdominal aortic aneurysm (11/27/12) Identified 10/31/12 CT abd-pelvis; 4cm; stable 4.1 cm 07/2014 CT, 4.3cm 11/2016, 5.5cm 03/04/17 ([facility] [place]). Brennen Nava following; see 04/2016 progress note. 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 Guerra DJD of right shoulder (01/01/13) 12/2012 x-ray severe DJD glenohumeral joint Dr. Guerra; not a surgical candidate for replacement Episode of seizures in July 2012 Esophageal reflux disease (07/24/11) UPPER GI SERIES 11/14/2012, MOD HIATAL HERNIA SEVERE GERD Headache (08/31/13) Hypertension Hypothyroidism Incarcerated umbilical hernia (09/06/15) Marijuana dependence Nausea and vomiting (08/01/14) a. previous history of possible marijuana induced hyperemesis Neurogenic bladder (07/24/11) Does not need to self-cath 11/2016: +Urinary retention [facility] inpt requiring cath; resolved by time of discharge Nicotine dependence Olecranon bursitis, left elbow Other and unspecified hyperlipidemia (08/14/12) Physical deconditioning RLS (restless legs syndrome) Spinal stenosis of lumbar region with neurogenic claudication (12/08/13) 04/13/2013 MRI Lumbar Spine: Facet arthropathy, DJD, L4-5, L5-S1 central spinal and neural foraminal stenosis Neurosurgery referral, but not a surgical candidate [facility] chronic pain service Chronic Pain [facility] Pain Center consult 10/26/15 [facility] [place] Spine Center consult 03/04/17 (Sanket Sawant MD) 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) Neuro work-up wchun +Hereditary, 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 Ambulates with cane when out; walker at home Tinea corporis Type II diabetes mellitus with neurological manifestations (05/04/14) Goal A1c < 7.5% Schein, neuropathy; Charcot's foot 03/19/13 [facility] Surgical History Appendectomy Childhood surgery, no date given by pt.HE Hemiarthroplasty (06/13/15) Dr Guerra R shoulder History of carpal tunnel release of both wrists (~05/2012) Hx of umbilical hernia repair (09/06/15) Incarcerated umbilical hernia repair (09/06/15) Tonsillectomy childhood surgery, no date given by pt.HE Family History Mother , at 78yo from dementia Dementia Father , MVA (truck) accident at 45yo No problems noted. Sister Thyroid cancer Other Diabetes FH: mental illness Social History Smoking/Tobacco Use Status: Current every day Alcohol Intake: never Drug use: Daily Substance use type: marijuana Adopted: No Foster care: No Housing: house Number of Children: 1 Communication Needs: Corrective Lenses Education Level: high school Details: didn't sophomore year Do you need help understanding health information?: Never 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 Pets and animals: Yes Current gender identity: female What is your relationship status?: Panel score (0-1 are the most socially isolated patients): 0 What type of physical activity do you participate in: none Do you feel safe at home: Yes Do you feel safe in your relationship?: Yes Exam Const General: cooperative, in distress and disheveled Orientation: alert and awake HENMT Head: normal to inspection, no palpable skull fracture, normocephalic and atraumatic General nose exam: external nose normal Face images: 1. Abrasion, ecchymosis, tenderness. Minimal swelling. Without bony point tenderness Mouth: moist mucous membranes abnormal (Dry) Throat: posterior oropharynx normal Eyes Alignment and Position: alignment normal Eyelids: other (Injury as above) Conjunctivae: conjunctivae normal Sclera: sclerae normal Cornea: corneas normal Pupils: PERRL EOM: EOM intact bilaterally Direct ophthalmoscopy: normal light reflex Neck Neck: normal visual inspection, trachea midline, supple, tender (Diffuse mild posterior) and other (In c-collar precautions) Chest Chest: mass (Right sided upper chest wall, nontender soft nodule) Breast inspection: Other (Left breast ecchymosis, appears old) Resp Effort & Inspection: normal respiratory effort, able to speak in complete sentences and cough Quality of cough: dry Auscultation: diminished lung sounds bilaterally in the lower lung aleman Cardio Rate: tachycardic (140s) Rhythm: regular rhythm GI Palpation: soft, not rigid and nontender Auscultation: normal bowel sounds Back/Spine/Pelvis Back: No back tenderness Skin General skin exam: no rashes or lesions noted Neuro General: patient alert, patient awake, moves all extremities and no focal motor deficits Motor: muscle tone normal throughout Sensory Exam: no sensory deficits noted Extrem Right upper extremity: normal to inspection, full ROM and normal capillary refill Left upper extremity: full ROM, normal capillary refill and elbow/forearm Details: other (Slightly erythematous draining olecranon wound) Right lower extremity: normal to inspection, full ROM and normal capillary refill Left lower extremity: normal to inspection, full ROM and normal capillary refill Psych Appearance: grossly normal Mental Status: mental status grossly normal Course Vital Signs Vital signs: Vital Signs Temperature 38.4 C H 01/23/20 17:53 Pulse 143 H 01/23/20 17:53 Respiratory Rate 28 H 01/23/20 17:53 Blood Pressure 117/89 01/23/20 17:53 Pulse Oximetry 94 L 01/23/20 17:53 Temperature 37.3 C 01/23/20 19:44 Temperature Source Skin 01/23/20 19:44 Pulse 132 H 01/23/20 19:44 Pulse 146 H 01/23/20 18:31 Respiratory Rate 20 01/23/20 19:44 Blood Pressure 117/77 01/23/20 19:44 Blood Pressure Mean 98 01/23/20 18:31 Blood Pressure Position Supine 01/23/20 17:53 Pulse Oximetry 91 L 01/23/20 19:44 Oxygen Delivery Method Nasal Cannula 01/23/20 19:44 Oxygen Flow Rate 1 01/23/20 19:44 Lab/Test Results Lab/Test Results: 01/23/20 18:21 Nasopharynx Influenza Types A,B Antigen - Final 01/23/20 18:15 Blood Blood Culture - Pending 01/23/20 18:05 Blood Blood Culture - Pending Laboratory Tests Range/Units 01/23/20 01/23/20 01/23/20 17:30 17:30 17:30 WBC (4.4-10.8) 10^3/uL 13.82 H RBC (3.93-5.22) 10^6/uL 4.98 Hgb (11.2-15.7) g/dL 13.9 Hct (36.0-46.0) % 42.9 MCV (80-95) fL 86.1 MCH (27.0-33.0) pg 27.9 MCHC (32.0-36.0) % 32.4 RDW (11.7-14.6) % 15.4 H Plt Count (130-400) 10^3/uL 299 MPV (8.0-11.0) fL 11.4 H Immature Gran % 0.8 Neutrophils % 84.1 Lymphocytes % 9.6 Monocytes % 4.2 Eosinophils % 0.9 Basophils % 0.4 Nucleated RBC % % 0 Absolute Neutrophils (1.2-6.7) 10^3/uL 11.62 H Absolute Lymphocytes (1.2-3.4) 10^3/uL 1.33 Absolute Monocytes (0.1-0.8) 10^3/uL 0.58 Absolute Eosinophils (0.0-0.7) 10^3/uL 0.12 Absolute Basophils (0.0-0.2) 10^3/uL 0.06 PT (9.3-11.0) sec 9.4 INR (0.9-1.1) 0.9 APTT (21.0-31.4) sec 22.3 VBG pH (7.31-7.41) VBG pCO2 (41-51) mmHg VBG pO2 mmHg VBG HCO3 (23-28) mmol/L VBG Total CO2 (24-29) mmol/L VBG O2 Saturation % VBG Base Excess (-2-3) mmol/L VBG Lactate (0.6-1.4) mmol/L Sodium (136-145) mmol/L 133 L Potassium (3.5-5.1) mmol/L 4.0 Chloride (98-107) mmol/L 95 L Carbon Dioxide (21.0-32.0) mmol/L 22.5 Anion Gap (3-11) mmol/L 15.5 H BUN (7-18) mg/dL 17 Creatinine (0.55-1.02) mg/dL 1.82 H Estimated GFR/1.73 m2 (mL/min/1.73m2) 27.88 Glucose (74-106) mg/dL 459 H Calcium (8.5-10.1) mg/dL 9.9 Total Bilirubin (0.2-1.0) mg/dL 0.5 AST (15-37) U/L 15 ALT (14-59) U/L 24 Alkaline Phosphatase (46-116) U/L 128 H Ammonia (11-32) umol/L Troponin I (<0.06) ng/mL < 0.05 NT-Pro-B Natriuret Pep (<300) pg/mL 1455 H Total Protein (6.4-8.2) g/dL 7.8 Albumin (3.4-5.0) g/dL 3.8 Procalcitonin ng/mL TSH (0.36-3.74) uIU/mL 1.99 Urine Color (Yellow) Urine Clarity (Clear) Urine pH (5-8) Ur Specific Ransom (1.005-1.025) Urine Protein (Negative) mg/dL Urine Ketones (Negative) mg/dL Urine Blood (Negative) Urine Nitrite (Negative) Urine Bilirubin (Negative) Urine Urobilinogen (Up TO 0.2) EU/dL Ur Leukocyte Esterase (Negative) Urine RBC (0-2) HPF Urine WBC (0-5) HPF Ur Epithelial Cells (Negative) HPF Urine Crystals (Negative) HPF Urine Bacteria (Negative) HPF Urine Casts (Negative) LPF Urine Mucus (Negative) Urine Other (Negative) Ur Culture Indicated? Urine Glucose (Negative) mg/dL Range/Units 01/23/20 01/23/20 01/23/20 18:21 18:21 18:21 WBC (4.4-10.8) 10^3/uL RBC (3.93-5.22) 10^6/uL Hgb (11.2-15.7) g/dL Hct (36.0-46.0) % MCV (80-95) fL MCH (27.0-33.0) pg MCHC (32.0-36.0) % RDW (11.7-14.6) % Plt Count (130-400) 10^3/uL MPV (8.0-11.0) fL Immature Gran % Neutrophils % Lymphocytes % Monocytes % Eosinophils % Basophils % Nucleated RBC % % Absolute Neutrophils (1.2-6.7) 10^3/uL Absolute Lymphocytes (1.2-3.4) 10^3/uL Absolute Monocytes (0.1-0.8) 10^3/uL Absolute Eosinophils (0.0-0.7) 10^3/uL Absolute Basophils (0.0-0.2) 10^3/uL PT (9.3-11.0) sec INR (0.9-1.1) APTT (21.0-31.4) sec VBG pH (7.31-7.41) 7.38 VBG pCO2 (41-51) mmHg 44 VBG pO2 mmHg 28 VBG HCO3 (23-28) mmol/L 26 VBG Total CO2 (24-29) mmol/L 24 VBG O2 Saturation % 50 VBG Base Excess (-2-3) mmol/L 1 VBG Lactate (0.6-1.4) mmol/L 4.5 H* Sodium (136-145) mmol/L Potassium (3.5-5.1) mmol/L Chloride (98-107) mmol/L Carbon Dioxide (21.0-32.0) mmol/L Anion Gap (3-11) mmol/L BUN (7-18) mg/dL Creatinine (0.55-1.02) mg/dL Estimated GFR/1.73 m2 (mL/min/1.73m2) Glucose (74-106) mg/dL Calcium (8.5-10.1) mg/dL Total Bilirubin (0.2-1.0) mg/dL AST (15-37) U/L ALT (14-59) U/L Alkaline Phosphatase (46-116) U/L Ammonia (11-32) umol/L < 10 L Troponin I (<0.06) ng/mL NT-Pro-B Natriuret Pep (<300) pg/mL Total Protein (6.4-8.2) g/dL Albumin (3.4-5.0) g/dL Procalcitonin ng/mL TSH (0.36-3.74) uIU/mL Urine Color (Yellow) Urine Clarity (Clear) Urine pH (5-8) Ur Specific Ransom (1.005-1.025) Urine Protein (Negative) mg/dL Urine Ketones (Negative) mg/dL Urine Blood (Negative) Urine Nitrite (Negative) Urine Bilirubin (Negative) Urine Urobilinogen (Up TO 0.2) EU/dL Ur Leukocyte Esterase (Negative) Urine RBC (0-2) HPF Urine WBC (0-5) HPF Ur Epithelial Cells (Negative) HPF Urine Crystals (Negative) HPF Urine Bacteria (Negative) HPF Urine Casts (Negative) LPF Urine Mucus (Negative) Urine Other (Negative) Ur Culture Indicated? Urine Glucose (Negative) mg/dL Range/Units 01/23/20 01/23/20 18:21 19:20 WBC (4.4-10.8) 10^3/uL RBC (3.93-5.22) 10^6/uL Hgb (11.2-15.7) g/dL Hct (36.0-46.0) % MCV (80-95) fL MCH (27.0-33.0) pg MCHC (32.0-36.0) % RDW (11.7-14.6) % Plt Count (130-400) 10^3/uL MPV (8.0-11.0) fL Immature Gran % Neutrophils % Lymphocytes % Monocytes % Eosinophils % Basophils % Nucleated RBC % % Absolute Neutrophils (1.2-6.7) 10^3/uL Absolute Lymphocytes (1.2-3.4) 10^3/uL Absolute Monocytes (0.1-0.8) 10^3/uL Absolute Eosinophils (0.0-0.7) 10^3/uL Absolute Basophils (0.0-0.2) 10^3/uL PT (9.3-11.0) sec INR (0.9-1.1) APTT (21.0-31.4) sec VBG pH (7.31-7.41) VBG pCO2 (41-51) mmHg VBG pO2 mmHg VBG HCO3 (23-28) mmol/L VBG Total CO2 (24-29) mmol/L VBG O2 Saturation % VBG Base Excess (-2-3) mmol/L VBG Lactate (0.6-1.4) mmol/L Sodium (136-145) mmol/L Potassium (3.5-5.1) mmol/L Chloride (98-107) mmol/L Carbon Dioxide (21.0-32.0) mmol/L Anion Gap (3-11) mmol/L BUN (7-18) mg/dL Creatinine (0.55-1.02) mg/dL Estimated GFR/1.73 m2 (mL/min/1.73m2) Glucose (74-106) mg/dL Calcium (8.5-10.1) mg/dL Total Bilirubin (0.2-1.0) mg/dL AST (15-37) U/L ALT (14-59) U/L Alkaline Phosphatase (46-116) U/L Ammonia (11-32) umol/L Troponin I (<0.06) ng/mL NT-Pro-B Natriuret Pep (<300) pg/mL Total Protein (6.4-8.2) g/dL Albumin (3.4-5.0) g/dL Procalcitonin ng/mL 0.2 TSH (0.36-3.74) uIU/mL Urine Color (Yellow) Yellow Urine Clarity (Clear) Clear Urine pH (5-8) 5.5 Ur Specific Ransom (1.005-1.025) 1.015 Urine Protein (Negative) mg/dL Negative Urine Ketones (Negative) mg/dL Negative Urine Blood (Negative) Trace-intact H Urine Nitrite (Negative) Negative Urine Bilirubin (Negative) Negative Urine Urobilinogen (Up TO 0.2) EU/dL 0.2 Ur Leukocyte Esterase (Negative) Negative Urine RBC (0-2) HPF 0-2 Urine WBC (0-5) HPF 0-2 Ur Epithelial Cells (Negative) HPF Rare Urine Crystals (Negative) HPF Negative Urine Bacteria (Negative) HPF Negative Urine Casts (Negative) LPF Negative Urine Mucus (Negative) Negative Urine Other (Negative) Negative Ur Culture Indicated? No Urine Glucose (Negative) mg/dL 500 H Critical Care Time Critical Care Time Critical Care Time: Yes Total Critical Care Time: 40 Attestation: Upon my evaluation, this patient had a high probability of clinically significant, life-threatening deterioration due to their current medical conditions, which required my direct attention, intervention, and personal management. I have personally provided greater than 30 minutes of critical care time exclusive of the time spend on separately billable procedures. Time includes obtaining a history, examining the patient, pulse oximetry, review of laboratory data, radiology results, discussion with consultants, arranging urgent treatment with development of a management plan, evaluation of patient's response to treatment, and monitoring for potential decompensation. Interventions were performed as documented above.
[2020-01-23 21:31] LABS: Troponin I 0.08 ng/mL (<0.06)
[2020-01-23] MEDS: Normal Saline 1,000 ML 150 ML IV (21:33)
--- NOTE | 2020-01-23 22:00 | RT.EKG_ITS ---
APPROVED REPORT Exam: Resting ECG Patient Location: I HR:91 bpm ECG Measurements Heart Rate 91 AXIS DE 186 P -28 QRSd 122 QRS 31 QT 378 T 32 QTc 462 Conclusion Sinus rhythm...normal P axis, V-rate 60- 99 Nonspecific intraventricular conduction delay...QRSd >115mS, not LBBB/RBBB Inferior infarct, old...Q >35mS, II III aVF Consider anterolateral infarct...Q >30mS, I aVL V3-V6,I,aVL
[2020-01-23] MEDS: DULoxetine 30 MG CAP 60 MG PO (23:11)
[2020-01-23] MEDS: Metoprolol 25 MG TAB PO (23:12)
[2020-01-23] MEDS: Insulin Glargine 300 UNITS/3 ML PEN 80 UNITS SC (23:20)
[2020-01-24] VITALS (153 sets, daily range): BP systolic 107–172; BP diastolic 41–147; PULSE 70–145; RESP 13–39; TEMP 36.3–38.5; O2SAT 90–98
[2020-01-24] MEDS: Normal Saline Flush 10 ML SYR IVP ×2 (02:56→08:26)
[2020-01-24 05:53] LABS: HCT 38.8 % (36.0-46.0); HGB 12.4 g/dL (11.2-15.7); MCH 27.6 pg (27.0-33.0); MCV 86.2 fL (80-95); MPV 10.7 fL (8.0-11.0); Platelet Count 205 10^3/uL (130-400); RDW 15.6 % (11.7-14.6); RDW-SD 49.3 fL; WBC 18.68 10^3/uL (4.4-10.8)
[2020-01-24 06:04] LABS: Anion Gap 10.6 mmol/L (3-11); BUN 16 mg/dL (7-18); CO2 24.4 mmol/L (21.0-32.0); CREATININE 1.24 mg/dL (0.55-1.02); Calcium 9.1 mg/dL (8.5-10.1); Chloride 101 mmol/L (98-107); Estimated GFR 43.41 (mL/min/1.73m2); Glucose 208 mg/dL (74-106); Potassium 3.8 mmol/L (3.5-5.1); Sodium 136 mmol/L (136-145)
[2020-01-24] MEDS: Acetaminophen 325 MG TAB 650 MG PO ×3 (06:24→20:57)
[2020-01-24] MEDS: Levothyroxine 50 MCG TAB PO (06:24)
[2020-01-24] MEDS: DOXYCYCLINE 100 MG in Normal Saline 100 ML IVPB (06:24)
--- NOTE | 2020-01-24 08:03 | PDOC.CMIN ---
- If Service Date Differs Date of service: 01/24/20 Time of Service: 15:28 Care Management Initial Assess REASON FOR HOSPITALIZATION:: Fever PAST MEDICAL HISTORY/PAST SURGICAL HISTORY:: abdominal aortic aneurysm, allergic rhinities, arthropathy associated with neurological disorder, calculus of kidney and ureter, cardiomyopathy, carpal tunnel syndrome, chronic back pain, chronic kidney disease stage III, COPD, CAD, depressive disorder, DM type 2 with neurological manifestations, DJD of left and right shoulder, episode of seizures, GERD, headache, hypertension, hypothyroidism, incarcerated umbilical hernia, marijuana dependence, neurogenic bladder, nicotene dependence, olecranon bursitis-left elbow, RLS, spinal stenosis of lumbar region with neurogenic claudication, spinocerebellar ataxia, tinea corporis, appendectomy, hemiarthroplasty, carpal tunnel release of both wrists, umbilical hernia repair, tonsillectomy PREVIOUS FUNCTIONAL STATUS/SOCIAL/FAMILY SUPPORTS:: Carmel lives at home with her son, Ethan, in [facility]. 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 She has a behavioral health case manager, Richa Stiles, through [facility] moderate needs. Ethan is her main support. She also identifies her two sisters as supportive. CURRENT FUNCTIONAL STATUS:: Carmel is being closely monitored in the ICU; she had a surgical consult today and will be NPO after midnight for possible intervention. Carmel was being assisted by two nurses to the commode when CM attempted to meet with her; CM will continue to follow. ADVANCE DIRECTIVES:: None on file. Has patient been provided with info about the portal/API?: No Did the patient sign up for the portal?: No CODE STATUS:: Full Code INSURANCE COVERAGE / FINANCIAL ISSUES:: [facility] CURRENT HOME/COMMUNITY SERVICES/EQUIPMENT:: Carmel has [facility] moderate needs, currently only case management (Richa Stiles). Nebulizer machine, and she already has a front wheeled walker. PRIMARY CARE PHYSICIAN:: Mai Castelan POTENTIAL DISCHARGE NEEDS:: Evaluations for further needs, follow up appointments. PATIENT/FAMILY EDUCATION NEEDS:: Review discharge instructions regarding activity levels and medications, discussion of self care needs and goals of care. ANTICIPATED BARRIERS TO DISCHARGE:: None identified at this time. TRANSPORTATION:: Anticipate she will transport via private vehicle driven by family. PLAN:: Anticipate Carmel will return home when medically cleared. She will be driven home by family in a private vehicle vs RCT. She will resume her C moderate needs, and may require new HH RN for med management. CM will continue to follow.
[2020-01-24] MEDS: busPIRone 15 MG TAB PO ×2 (08:25→20:12)
[2020-01-24] MEDS: DULoxetine 30 MG CAP 60 MG PO ×2 (08:25→20:12)
[2020-01-24] MEDS: Metoprolol 25 MG TAB PO ×3 (08:26→15:55)
[2020-01-24] MEDS: Docusate Sodium 100 MG CAP PO ×2 (08:26→20:11)
[2020-01-24] MEDS: Pantoprazole 40 MG TABCR PO (08:26)
[2020-01-24] MEDS: Insulin Aspart 300 UNITS/3 ML PEN SC ×5 (08:27→18:04)
[2020-01-24 10:20] LABS: Lactate 1.5 mmol/L (0.6-1.4)
[2020-01-24 10:38] LABS: Troponin I 0.05 ng/mL (<0.06)
--- NOTE | 2020-01-24 11:29 | PHA.REVIEW ---
Pharmacy Admission Review - Admission Clinical Review (Last Reviewed 01/23/20 @ 21:15 by SU Balderas) Fever (Acute) bupropion HCl [From Wellbutrin] Allergy (Severe, Verified 01/23/20 18:08) seizures carvedilol [From Coreg] Allergy (Mild, Verified 01/23/20 18:08) Itching morphine Adverse Reaction (Unknown, Verified 01/23/20 18:08) nausea Height 4 ft 7 in Weight 102.5 kg - Comments Comments/Follow Ups: FEVER OF UNKNOWN ORIGIN - Renal Dosing Renal Dosing: BUN 16 mg/dL (7-18) 01/24/20 05:30 Creatinine 1.24 mg/dL (0.55-1.02) H D 01/24/20 05:30 Medications needing adjustments: Reviewed (per global [facility] [employer] (Adjusted BW): 47.3 (ml/min)) - Anticoagulation Anticoagulation: Hgb 12.4 g/dL (11.2-15.7) 01/24/20 05:30 Hct 38.8 % (36.0-46.0) 01/24/20 05:30 Plt Count 205 10^3/uL (130-400) 01/24/20 05:30 INR 0.9 (0.9-1.1) 01/23/20 17:30 Creatinine 1.24 mg/dL (0.55-1.02) H D 01/24/20 05:30 DVT Prohphylaxis: N/A - Relevant Labs Sodium 136 mmol/L (136-145) 01/24/20 05:30 Potassium 3.8 mmol/L (3.5-5.1) 01/24/20 05:30 Chloride 101 mmol/L (98-107) 01/24/20 05:30 Electrolytes, C-Reactive P, ESR: Reviewed - DM Control DM Control: Glucose 208 mg/dL (74-106) H D 01/24/20 05:30 Finger Stick Blood Glucose 278 Finger Stick Blood Glucose 278 Insulin Dosing: Reviewed (insulin aspart and glargine ordered) - Heart Failure/VT Heart Failure/VT: Troponin I 0.05 ng/mL (<0.06) 01/24/20 10:05 NT-Pro-B Natriuret Pep 1455 pg/mL (<300) H 01/23/20 17:30 - BP Control BP Control: Blood Pressure [Right Arm] 134/76 Blood Pressure [Right Arm] 136/92 Blood Pressure 131/71 Blood Pressure 134/67 Blood Pressure 128/67 Blood Pressure 125/62 Blood Pressure 123/70 Blood Pressure 120/60 Blood Pressure 118/65 Blood Pressure 129/67 Blood Pressure 123/68 Blood Pressure 166/78 Blood Pressure 150/84 Blood Pressure 164/147 Blood Pressure 152/87 Blood Pressure 144/108 Blood Pressure 130/75 Blood Pressure 123/73 Blood Pressure 134/76 Blood Pressure 144/76 Blood Pressure 145/75 Blood Pressure 172/87 Blood Pressure 160/82 Blood Pressure 148/87 Blood Pressure 168/96 Blood Pressure 145/89 Blood Pressure 144/70 Blood Pressure 147/108 Blood Pressure 155/93 Blood Pressure 128/75 Blood Pressure 128/86 Blood Pressure 136/92 Blood Pressure 136/85 Blood Pressure 144/62 Blood Pressure 163/77 Blood Pressure 149/81 Blood Pressure 145/85 If elevated: Reviewed - IV to PO Switch IV Medications: Reviewed (iv abx) - Home Meds Home Med List reviewed: Reviewed (meds not ordered; ezetimibe, diclofenac gel, torsemide, simvastatin, finasteride) - Current meds Current Medication Order Review: Reviewed (ceftriaxone,doxy and vancomycin(per pharmacy) IV ordered) - Comments Comments/Follow Ups: pt found down after fall. ask if lovenox for DVT prophylaxis is appropriate
[2020-01-24] MEDS: Insulin Glargine 300 UNITS/3 ML PEN 50 UNITS SC ×2 (12:17→20:12)
--- NOTE | 2020-01-24 12:17 | W.PM.PROGNOT ---
Date of Service Date of service: 01/24/20 Time of Service: 12:18 Assessment and Plan Assessment and plan (1) Fever of unknown origin: Status: Acute Assessment and plan: Patient presented with acute symptoms of generalized weakness malaise and falls and fever up to 38.4 associated with acute kidney injury and acute mental status change and elevated procalcitonin and blood lactate level all consistent with early sepsis. Primary evaluation did not suggest a source for infection. Secondary exam this morning suggests probable source as an gluteal abscess. Blood cultures are pending at this time. Patient is responding to antibiotics and IV fluids. I have consulted with general surgery to evaluate for incision and drainage of the abscess. For now we will continue the vancomycin and Rocephin. I have increased the Rocephin dose to high-dose 2 g daily with pharmacist monitoring and adjusting the vancomycin dose. Wound care nurse is addressing the patient's other abrasions. (2) Abscess, gluteal, right: Status: Suspected Assessment and plan: As above. Continue IV antibiotics (vancomycin and Rocephin), consult with general surgery for incision and drainage (3) Type II diabetes mellitus with neurological manifestations: Status: Chronic Assessment and plan: Poorly controlled diabetes mellitus as evidenced by hemoglobin A1c of 9.2% back on September 22, 2019. Blood sugars are exacerbated by her acute infection. I have adjusted her basal bolus insulin as well as added carb coverage for meals. If this does not control her blood sugars she may need an insulin drip. (4) Cardiomyopathy: Status: Chronic Assessment and plan: According to Dr. Albert Gill's note dated November 09, 2019 patient has an ischemic cardiomyopathy with an ejection fraction of 45%. He recommended restarting her aspirin and continuing ezetmibe and simvastatin, losartan, torsemide and consider switching to Entresto in the future. Patient is not clinically in acute CHF decompensation and her troponin levels did not reach threshold for acute VA. I suspect her elevated troponin is secondary to her sepsis. Her level has normalized and she has no dyspnea nor CP. Now that she is eating and drinking, I will back off her iv fluids. Qualifiers: Cardiomyopathy type: ischemic Qualified Code(s): I25.5 - Ischemic cardiomyopathy (5) COPD, mild: Status: Chronic Assessment and plan: No evidence for acute exacerbation. I will resume her home Symbicort as well as PRN use of albuterol. (6) Acute kidney injury (nontraumatic): Status: Acute Assessment and plan: Patient presented with acute kidney injury secondary to sepsis which has responded to IV fluids. BUN is now down to 16 creatinine is down to 1.24. Note she is eating and drinking we will back off her IV fluids to prevent exacerbation of her cardiomyopathy. Continue to monitor her BUN and creatinine and urine output. (7) Chronic kidney disease, stage III (moderate): Status: Chronic Assessment and plan: As above (8) Elevated troponin I level: Status: Acute Assessment and plan: As above (9) DVT prophylaxis: Status: Acute Assessment and plan: Will place SCDs and teds for DVT prophylaxis. (10) Abrasion of left elbow: Status: Acute Assessment and plan: See wound care nurses consult note and recommendations Qualifiers: Encounter type: initial encounter Qualified Code(s): S50.312A - Abrasion of left elbow, initial encounter Subjective Subjective Interval history since last seen: See emergency room attendings note as well as Dr. Harkins's H&P for details of patient's presentation. In summary this 64-year-old female with multiple co-morbidities including poorly controlled type 2 diabetes mellitus requiring insulin complicated by peripheral neuropathy, chronic back pain from spinal stenosis, coronary artery disease, COPD, chronic kidney disease, AAA, presented to the emergency room after being found down at home. Patient's had a history of frequent falls and gait instability. Says she has not been feeling well for last few days with generalized malaise fatigue she is unsure as to whether or not she had any fever but upon EMS arrival she was found to be disheveled and incontinent. Upon evaluation emergency department she was found to be febrile with a leukocytosis (WBC 13,000 now at 18,000) and elevated blood lactate level ( 4.5 per VBG, now 1.5), as well as evidence of acute kidney injury (BUN 17, creatinine 1.82, now down to 16, and 1.24), elevated procalcitonin 0.2 and elevated troponin level (0.08 w/ peak of 0.10 now down to 0.05) but EKG w/ no acute ischemic/injury pattern (old inf/lat. VA). Imaging included CT head/neck and chest. CT head: no acute pathology. CT neck neg. for fracture. CT chest w/out contrast neg. for acute pathology. UA neg. except for trace of blood. Blood cultures were obtained and are pending. Influenza swab was negative. COVID-19 nasopharyngeal swab was obtained and results are pending. Upon closer examination by the nurses and myself, patient is found to have 3 cm x 8.5 cm indurated, tender, erythematous/purplish swelling of the soft tissues over the right gluteus at the intergluteal fold. This area is suspicious for abscess. The patient was started on iv fluids, Rocephin, Vancomycin, Doxycycline last night for F.U.O. Patient is now more alert, oriented, appropriate and feeling better this a.m. Per Nancy, her nurse who was with her in the ER last night, the patient has markedly improved since given antibiotics. Patient states that she has been failing at home, w/ frequent falls, gait instability, multiple bruises/contusions from her falls. Other injuries noted including abrasion/echymosis over right upper eye lid, abrasion over her right medial thigh and left olecranon area of her elbow w/ calloused abrasion w/out purulent drainage. Exam Narrative Exam Narrative: Disheveled female who appears to be older than her stated age of 64 who is sitting up in bed alert and oriented to person place time circumstance. HEENT is remarkable for small abrasion and ecchymosis over the right upper eyelid. Pupils are equally round reactive full extraocular motions intact there is no scleral icterus. Neck is supple nontender no cervical adenopathy normal range of motion. Spine is slightly kyphotic but no tenderness over the cervical or thoracic or lumbar spine. No sores or abrasions over her back. No CVA tenderness. Lungs are clear to auscultation Heart regular rate and rhythm although heart sounds were difficult to hear over the noise from the HEPA filter in the room. Chest wall with ecchymosis above the left breast. Palpable lipoma over the right anterior chest wall just above the breast Abdomen is obese soft nontender no guarding no rebound tenderness. Extremities patient has small abrasion over the medial left thigh with no purulent drainage (see wound care nurses notes regarding size and stage), lower legs without cyanosis or edema, pedal pulses intact Examination of the sacrum and gluteal areas reveals a firm tender warm area of induration measuring 3 cm x 8.5 cm from the gluteal fold extending to the right by 3 cm. I was unable to express any pus from this but there is slight open area at the center of this that had drained some yellow liquid material on her bed sheet. Neuro exam grossly intact no facial asymmetry no dysarthric speech normal range of motion of both upper and lower extremities. Objective Objective Clinical Data: Abnormal lab results 01/23/20 01/23/20 01/23/20 Range/Units 17:30 17:30 18:21 WBC 13.82 H (4.4-10.8) 10^3/uL RDW 15.4 H (11.7-14.6) % MPV 11.4 H (8.0-11.0) fL Absolute Neutrophils 11.62 H (1.2-6.7) 10^3/uL VBG Lactate (0.6-1.4) mmol/L Sodium 133 L (136-145) mmol/L Chloride 95 L (98-107) mmol/L Anion Gap 15.5 H (3-11) mmol/L Creatinine 1.82 H (0.55-1.02) mg/dL Glucose 459 H (74-106) mg/dL Alkaline Phosphatase 128 H (46-116) U/L Ammonia < 10 L (11-32) umol/L Troponin I (<0.06) ng/mL NT-Pro-B Natriuret Pep 1455 H (<300) pg/mL Urine Blood (Negative) Urine Glucose (Negative) mg/dL 01/23/20 01/23/20 01/23/20 Range/Units 18:21 19:20 20:55 WBC (4.4-10.8) 10^3/uL RDW (11.7-14.6) % MPV (8.0-11.0) fL Absolute Neutrophils (1.2-6.7) 10^3/uL VBG Lactate 4.5 H* (0.6-1.4) mmol/L Sodium (136-145) mmol/L Chloride (98-107) mmol/L Anion Gap (3-11) mmol/L Creatinine (0.55-1.02) mg/dL Glucose (74-106) mg/dL Alkaline Phosphatase (46-116) U/L Ammonia (11-32) umol/L Troponin I 0.08 H* (<0.06) ng/mL NT-Pro-B Natriuret Pep (<300) pg/mL Urine Blood Trace-intact H (Negative) Urine Glucose 500 H (Negative) mg/dL 01/24/20 01/24/20 01/24/20 Range/Units 05:30 05:30 05:30 WBC 18.68 H D (4.4-10.8) 10^3/uL RDW 15.6 H (11.7-14.6) % MPV (8.0-11.0) fL Absolute Neutrophils (1.2-6.7) 10^3/uL VBG Lactate (0.6-1.4) mmol/L Sodium (136-145) mmol/L Chloride (98-107) mmol/L Anion Gap (3-11) mmol/L Creatinine 1.24 H D (0.55-1.02) mg/dL Glucose 208 H D (74-106) mg/dL Alkaline Phosphatase (46-116) U/L Ammonia (11-32) umol/L Troponin I 0.10 H* (<0.06) ng/mL NT-Pro-B Natriuret Pep (<300) pg/mL Urine Blood (Negative) Urine Glucose (Negative) mg/dL 01/24/20 Range/Units 10:05 WBC (4.4-10.8) 10^3/uL RDW (11.7-14.6) % MPV (8.0-11.0) fL Absolute Neutrophils (1.2-6.7) 10^3/uL VBG Lactate 1.5 H (0.6-1.4) mmol/L Sodium (136-145) mmol/L Chloride (98-107) mmol/L Anion Gap (3-11) mmol/L Creatinine (0.55-1.02) mg/dL Glucose (74-106) mg/dL Alkaline Phosphatase (46-116) U/L Ammonia (11-32) umol/L Troponin I (<0.06) ng/mL NT-Pro-B Natriuret Pep (<300) pg/mL Urine Blood (Negative) Urine Glucose (Negative) mg/dL Vital Signs Temperature 36.3 C L 01/24/20 11:52 Temperature Source Temporal Artery Scan 01/24/20 11:52 Pulse 70 01/24/20 10:06 Pulse 72 01/24/20 10:40 Respiratory Rate 22 01/24/20 10:06 Respiratory Effort 01/24/20 11:52 Respiratory Depth Shallow 01/24/20 11:52 Respiratory Pattern Tachypnea 01/24/20 11:52 Blood Pressure 131/71 01/24/20 10:06 Blood Pressure Mean 85 01/24/20 10:06 Blood Pressure Position Right Lateral 01/24/20 04:42 Pulse Oximetry 95 01/24/20 10:40 Oxygen Delivery Method Nasal Cannula 01/24/20 09:45 Oxygen Flow Rate 2 01/24/20 09:45 Pain Level 7 01/24/20 11:52 Intake & Output 01/23/20 01/24/20 01/24/20 23:59 11:59 23:59 Intake Total 1935 / 1935 1529.5 / 1529.5 Output Total 400 / 400 800 / 800 Balance 1535 / 1535 729.5 / 729.5 Weight 102.5 kg Intake: IV 1935 / 1935 392.5 / 392.5 Oral 1137 / 1137 Output: Urine 400 / 400 800 / 800 Other: Urine Color Yellow Light [place] Urine Appearance Clear Clear Comment Removed jerez and emptied 450ml urine Stool Occult Blood Negative Negative Stool Size Large Large Stool Characteristics Soft Brown Laboratory Results WBC 18.68 10^3/uL (4.4-10.8) H D 01/24/20 05:30 RBC 4.50 10^6/uL (3.93-5.22) 01/24/20 05:30 Hgb 12.4 g/dL (11.2-15.7) 01/24/20 05:30 Hct 38.8 % (36.0-46.0) 01/24/20 05:30 MCV 86.2 fL (80-95) 01/24/20 05:30 MCH 27.6 pg (27.0-33.0) 01/24/20 05:30 MCHC 32.0 % (32.0-36.0) 01/24/20 05:30 RDW 15.6 % (11.7-14.6) H 01/24/20 05:30 Plt Count 205 10^3/uL (130-400) 01/24/20 05:30 MPV 10.7 fL (8.0-11.0) 01/24/20 05:30 Immature Gran % 0.8 01/23/20 17:30 Neutrophils % 84.1 01/23/20 17:30 Lymphocytes % 9.6 01/23/20 17:30 Monocytes % 4.2 01/23/20 17:30 Eosinophils % 0.9 01/23/20 17:30 Basophils % 0.4 01/23/20 17:30 Nucleated RBC % 0 % 01/23/20 17:30 Absolute Neutrophils 11.62 10^3/uL (1.2-6.7) H 01/23/20 17:30 Absolute Lymphocytes 1.33 10^3/uL (1.2-3.4) 01/23/20 17:30 Absolute Monocytes 0.58 10^3/uL (0.1-0.8) 01/23/20 17:30 Absolute Eosinophils 0.12 10^3/uL (0.0-0.7) 01/23/20 17:30 Absolute Basophils 0.06 10^3/uL (0.0-0.2) 01/23/20 17:30 PT 9.4 sec (9.3-11.0) 01/23/20 17:30 INR 0.9 (0.9-1.1) 01/23/20 17:30 APTT 22.3 sec (21.0-31.4) 01/23/20 17:30 VBG pH 7.38 (7.31-7.41) 01/23/20 18:21 VBG pCO2 44 mmHg (41-51) 01/23/20 18:21 VBG pO2 28 mmHg 01/23/20 18:21 VBG HCO3 26 mmol/L (23-28) 01/23/20 18:21 VBG Total CO2 24 mmol/L (24-29) 01/23/20 18:21 VBG O2 Saturation 50 % 01/23/20 18:21 VBG Base Excess 1 mmol/L (-2-3) 01/23/20 18:21 VBG Lactate 1.5 mmol/L (0.6-1.4) H 01/24/20 10:05 Sodium 136 mmol/L (136-145) 01/24/20 05:30 Potassium 3.8 mmol/L (3.5-5.1) 01/24/20 05:30 Chloride 101 mmol/L (98-107) 01/24/20 05:30 Carbon Dioxide 24.4 mmol/L (21.0-32.0) 01/24/20 05:30 Anion Gap 10.6 mmol/L (3-11) 01/24/20 05:30 BUN 16 mg/dL (7-18) 01/24/20 05:30 Creatinine 1.24 mg/dL (0.55-1.02) H D 01/24/20 05:30 Estimated GFR/1.73 m2 43.41 (mL/min/1.73m2) 01/24/20 05:30 Glucose 208 mg/dL (74-106) H D 01/24/20 05:30 Calcium 9.1 mg/dL (8.5-10.1) 01/24/20 05:30 Total Bilirubin 0.5 mg/dL (0.2-1.0) 01/23/20 17:30 AST 15 U/L (15-37) 01/23/20 17:30 ALT 24 U/L (14-59) 01/23/20 17:30 Alkaline Phosphatase 128 U/L (46-116) H 01/23/20 17:30 Ammonia < 10 umol/L (11-32) L 01/23/20 18:21 Troponin I 0.05 ng/mL (<0.06) 01/24/20 10:05 NT-Pro-B Natriuret Pep 1455 pg/mL (<300) H 01/23/20 17:30 Total Protein 7.8 g/dL (6.4-8.2) 01/23/20 17:30 Albumin 3.8 g/dL (3.4-5.0) 01/23/20 17:30 Procalcitonin 0.2 ng/mL 01/23/20 18:21 TSH 1.99 uIU/mL (0.36-3.74) 01/23/20 17:30 Urine Color Yellow (Yellow) 01/23/20 19:20 Urine Clarity Clear (Clear) 01/23/20 19:20 Urine pH 5.5 (5-8) 01/23/20 19:20 Ur Specific [place] 1.015 (1.005-1.025) 01/23/20 19:20 Urine Protein Negative mg/dL (Negative) 01/23/20 19:20 Urine Ketones Negative mg/dL (Negative) 01/23/20 19:20 Urine Blood Trace-intact (Negative) H 01/23/20 19:20 Urine Nitrite Negative (Negative) 01/23/20 19:20 Urine Bilirubin Negative (Negative) 01/23/20 19:20 Urine Urobilinogen 0.2 EU/dL (Up TO 0.2) 01/23/20 19:20 Ur Leukocyte Esterase Negative (Negative) 01/23/20 19:20 Urine RBC 0-2 HPF (0-2) 01/23/20 19:20 Urine WBC 0-2 HPF (0-5) 01/23/20 19:20 Ur Epithelial Cells Rare HPF (Negative) 01/23/20 19:20 Urine Crystals Negative HPF (Negative) 01/23/20 19:20 Urine Bacteria Negative HPF (Negative) 01/23/20 19:20 Urine Casts Negative LPF (Negative) 01/23/20 19:20 Urine Mucus Negative (Negative) 01/23/20 19:20 Urine Other Negative (Negative) 01/23/20 19:20 Ur Culture Indicated? No 01/23/20 19: Urine Glucose 500 mg/dL (Negative) H 01/23/20 19:20
[2020-01-24 12:36] LABS: COVID-19 RT-PCR UVMMC Result Negative (Negative)
--- NOTE | 2020-01-24 15:21 | W.SURGCON ---
Date of service: 01/24/20 Time of Service: 14:00 Assessment and Plan Assessment and plan (1) Abscess, gluteal, left: Status: Acute Assessment and plan: There is a large area of erythema and induration but not a distinct abscess. Will re-evaluate in am to see if a target for I and D develops or if it improves with vancomycin. Will keep NPO after midnight in the event that intervention in the OR is needed. History of Present Illness Narrative: This patient was admitted last night after being found down at home. She was noted to have a fever and signs of sepsis in the ER so was admitted to the ICU. No fever since admission and her labs/bp improved with fluids and empiric antibiotics. No obvious source was present yesterday, but with turning an infection of the gluteal region was noted. The patient reports having small perineal boils that drain spontaneously. She had never needed surgical intervention. The region has been tender for about a week. Review of Systems Constitutional Constitutional: Denies headache(s) Eyes Eyes: Denies change in vision ENT Ears, Nose, Mouth, and Throat: Denies headache(s) and Denies neck mass Cardiovascular Cardiovascular: Denies chest pain, Denies edema, Denies palpitations and Reports dyspnea (chronic, no changes) Respiratory Respiratory: Reports dyspnea (chronic, no changes) Gastrointestinal Gastrointestinal: Denies abdominal pain, Denies hematochezia and Denies change in bowel habits Genitourinary Genitourinary: Denies abnormal vaginal bleeding and Denies dysuria Musculoskeletal Musculoskeletal: Denies joint swelling Integumentary/Breasts Skin/Breast: Denies new lesions and Denies rash Neurologic Neurologic: Denies confusion, Denies headache(s) and Denies localized weakness Psychiatric Psychiatric: Reports system reviewed and no additional complaints, except as documented and Denies confusion Endocrine Endocrine: Denies palpitations Hematologic/Lymphatic Hematologic/Lymphatic: Denies easy bleeding and Denies lymphadenopathy [facility] Medical History Abdominal aortic aneurysm (11/27/12) Identified 10/31/12 CT abd-pelvis; 4cm; stable 4.1 cm 07/2014 CT, 4.3cm 11/2016, 5.5cm 03/04/17 [place] [place] Brennen Nava following; see 04/2016 progress note. 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 Guerra DJD of right shoulder (01/01/13) 12/2012 x-ray severe DJD glenohumeral joint Dr. Guerra; not a surgical candidate for replacement Episode of seizures in July 2012 Esophageal reflux disease (07/24/11) UPPER GI SERIES 11/14/2012, MOD HIATAL HERNIA SEVERE GERD Headache (08/31/13) Hypertension Hypothyroidism Incarcerated umbilical hernia (09/06/15) Marijuana dependence Nausea and vomiting (08/01/14) a. previous history of possible marijuana induced hyperemesis Neurogenic bladder (07/24/11) Does not need to self-cath 11/2016: +Urinary retention [facility] inpt requiring cath; resolved by time of discharge Nicotine dependence Olecranon bursitis, left elbow Other and unspecified hyperlipidemia (08/14/12) Physical deconditioning RLS (restless legs syndrome) Spinal stenosis of lumbar region with neurogenic claudication (12/08/13) 04/13/2013 MRI Lumbar Spine: Facet arthropathy, DJD, L4-5, L5-S1 central spinal and neural foraminal stenosis Neurosurgery referral, but not a surgical candidate [facility] chronic pain service Chronic Pain [facility] Pain Center consult 10/26/15 [facility] [place] [facility] consult 03/04/17 (Sanket Sawant MD) 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) Neuro work-up 2010/wchun +Hereditary, 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 Family History Mother , at 78yo from dementia Dementia Father , MVA (truck) accident at 45yo No problems noted. Sister Thyroid cancer Other Diabetes FH: mental illness Social History Smoking/Tobacco Use Status: Current every day Alcohol Intake: never Drug use: Daily Substance use type: marijuana Adopted: No Foster care: No Housing: house Number of Children: 1 Communication Needs: Corrective Lenses Education Level: high school Details: didn't sophomore year Do you need help understanding health information?: Never 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 Pets and animals: Yes Current gender identity: female What is your relationship status?: Panel score (0-1 are the most socially isolated patients): 0 What type of physical activity do you participate in: none Do you feel safe at home: Yes Do you feel safe in your relationship?: Yes Exam Narrative Exam Narrative: Breathing labored Perianal exam reveals erythematous and indurated area near anal region on the left. This extends in a band about 10cm by 5cm. No pointing area of fluctuance. Results Last Vital Signs Temp 97.3 F L 01/24/20 11:52 Pulse 76 01/24/20 14:03 Resp 22 01/24/20 15:10 BP 119/58 L 01/24/20 14:03 Pulse Ox 92 L 01/24/20 15:16 Labs Result diagrams: 01/24/20 05:30 01/24/20 05:30 Labs: Laboratory Results - last 24 hr 01/23/20 01/23/20 01/23/20 17:30 17:30 17:30 WBC 13.82 H RBC 4.98 Hgb 13.9 Hct 42.9 MCV 86.1 MCH 27.9 MCHC 32.4 RDW 15.4 H Plt Count 299 MPV 11.4 H Immature Gran % 0.8 Neutrophils % 84.1 Lymphocytes % 9.6 Monocytes % 4.2 Eosinophils % 0.9 Basophils % 0.4 Nucleated RBC % 0 Absolute Neutrophils 11.62 H Absolute Lymphocytes 1.33 Absolute Monocytes 0.58 Absolute Eosinophils 0.12 Absolute Basophils 0.06 PT 9.4 INR 0.9 APTT 22.3 VBG pH VBG pCO2 VBG pO2 VBG HCO3 VBG Total CO2 VBG O2 Saturation VBG Base Excess VBG Lactate Sodium 133 L Potassium 4.0 Chloride 95 L Carbon Dioxide 22.5 Anion Gap 15.5 H BUN 17 Creatinine 1.82 H Estimated GFR/1.73 m2 27.88 Glucose 459 H Calcium 9.9 Total Bilirubin 0.5 AST 15 ALT 24 Alkaline Phosphatase 128 H Ammonia Troponin I < 0.05 NT-Pro-B Natriuret Pep 1455 H Total Protein 7.8 Albumin 3.8 Procalcitonin TSH 1.99 Urine Color Urine Clarity Urine pH Ur Specific [place] Urine Protein Urine Ketones Urine Blood Urine Nitrite Urine Bilirubin Urine Urobilinogen Ur Leukocyte Esterase Urine RBC Urine WBC Ur Epithelial Cells Urine Crystals Urine Bacteria Urine Casts Urine Mucus Urine Other Ur Culture Indicated? Urine Glucose COVID-19 PCR Nasopharyn COVID-19 PCR Ref Test Perform Site 01/23/20 01/23/20 01/23/20 18:21 18:21 18:21 WBC RBC Hgb Hct MCV MCH MCHC RDW Plt Count MPV Immature Gran % Neutrophils % Lymphocytes % Monocytes % Eosinophils % Basophils % Nucleated RBC % Absolute Neutrophils Absolute Lymphocytes Absolute Monocytes Absolute Eosinophils Absolute Basophils PT INR APTT VBG pH 7.38 VBG pCO2 44 VBG pO2 28 VBG HCO3 26 VBG Total CO2 24 VBG O2 Saturation 50 VBG Base Excess 1 VBG Lactate 4.5 H* Sodium Potassium Chloride Carbon Dioxide Anion Gap BUN Creatinine Estimated GFR/1.73 m2 Glucose Calcium Total Bilirubin AST ALT Alkaline Phosphatase Ammonia < 10 L Troponin I NT-Pro-B Natriuret Pep Total Protein Albumin Procalcitonin TSH Urine Color Urine Clarity Urine pH Ur Specific [place] Urine Protein Urine Ketones Urine Blood Urine Nitrite Urine Bilirubin Urine Urobilinogen Ur Leukocyte Esterase Urine RBC Urine WBC Ur Epithelial Cells Urine Crystals Urine Bacteria Urine Casts Urine Mucus Urine Other Ur Culture Indicated? Urine Glucose COVID-19 PCR Nasopharyn COVID-19 PCR Ref Test Perform Site 01/23/20 01/23/20 01/23/20 18:21 18:21 19:20 WBC RBC Hgb Hct MCV MCH MCHC RDW Plt Count MPV Immature Gran % Neutrophils % Lymphocytes % Monocytes % Eosinophils % Basophils % Nucleated RBC % Absolute Neutrophils Absolute Lymphocytes Absolute Monocytes Absolute Eosinophils Absolute Basophils PT INR APTT VBG pH VBG pCO2 VBG pO2 VBG HCO3 VBG Total CO2 VBG O2 Saturation VBG Base Excess VBG Lactate Sodium Potassium Chloride Carbon Dioxide Anion Gap BUN Creatinine Estimated GFR/1.73 m2 Glucose Calcium Total Bilirubin AST ALT Alkaline Phosphatase Ammonia Troponin I NT-Pro-B Natriuret Pep Total Protein Albumin Procalcitonin 0.2 TSH Urine Color Yellow Urine Clarity Clear Urine pH 5.5 Ur Specific [place] 1.015 Urine Protein Negative Urine Ketones Negative Urine Blood Trace-intact H Urine Nitrite Negative Urine Bilirubin Negative Urine Urobilinogen 0.2 Ur Leukocyte Esterase Negative Urine RBC 0-2 Urine WBC 0-2 Ur Epithelial Cells Rare Urine Crystals Negative Urine Bacteria Negative Urine Casts Negative Urine Mucus Negative Urine Other Negative Ur Culture Indicated? No Urine Glucose 500 H COVID-19 PCR Negative Nasopharyn COVID-19 PCR Not Applicable Ref Test Perform Site [place] [facility] 01/23/20 01/24/20 01/24/20 20:55 05:30 05:30 WBC RBC Hgb Hct MCV MCH MCHC RDW Plt Count MPV Immature Gran % Neutrophils % Lymphocytes % Monocytes % Eosinophils % Basophils % Nucleated RBC % Absolute Neutrophils Absolute Lymphocytes Absolute Monocytes Absolute Eosinophils Absolute Basophils PT INR APTT VBG pH VBG pCO2 VBG pO2 VBG HCO3 VBG Total CO2 VBG O2 Saturation VBG Base Excess VBG Lactate 1.0 Sodium Potassium Chloride Carbon Dioxide Anion Gap BUN Creatinine Estimated GFR/1.73 m2 Glucose Calcium Total Bilirubin AST ALT Alkaline Phosphatase Ammonia Troponin I 0.08 H* 0.10 H* NT-Pro-B Natriuret Pep Total Protein Albumin Procalcitonin TSH Urine Color Urine Clarity Urine pH Ur Specific [place] Urine Protein Urine Ketones Urine Blood Urine Nitrite Urine Bilirubin Urine Urobilinogen Ur Leukocyte Esterase Urine RBC Urine WBC Ur Epithelial Cells Urine Crystals Urine Bacteria Urine Casts Urine Mucus Urine Other Ur Culture Indicated? Urine Glucose COVID-19 PCR Nasopharyn COVID-19 PCR Ref Test Perform Site 01/24/20 01/24/20 01/24/20 05:30 05:30 10:05 WBC 18.68 H D RBC 4.50 Hgb 12.4 Hct 38.8 MCV 86.2 MCH 27.6 MCHC 32.0 RDW 15.6 H Plt Count 205 MPV 10.7 Immature Gran % Neutrophils % Lymphocytes % Monocytes % Eosinophils % Basophils % Nucleated RBC % Absolute Neutrophils Absolute Lymphocytes Absolute Monocytes Absolute Eosinophils Absolute Basophils PT INR APTT VBG pH VBG pCO2 VBG pO2 VBG HCO3 VBG Total CO2 VBG O2 Saturation VBG Base Excess VBG Lactate Sodium 136 Potassium 3.8 Chloride 101 Carbon Dioxide 24.4 Anion Gap 10.6 BUN 16 Creatinine 1.24 H D Estimated GFR/1.73 m2 43.41 Glucose 208 H D Calcium 9.1 Total Bilirubin AST ALT Alkaline Phosphatase Ammonia Troponin I 0.05 NT-Pro-B Natriuret Pep Total Protein Albumin Procalcitonin TSH Urine Color Urine Clarity Urine pH Ur Specific [place] Urine Protein Urine Ketones Urine Blood Urine Nitrite Urine Bilirubin Urine Urobilinogen Ur Leukocyte Esterase Urine RBC Urine WBC Ur Epithelial Cells Urine Crystals Urine Bacteria Urine Casts Urine Mucus Urine Other Ur Culture Indicated? Urine Glucose COVID-19 PCR Nasopharyn COVID-19 PCR Ref Test Perform Site 01/24/20 10:05 WBC RBC Hgb Hct MCV MCH MCHC RDW Plt Count MPV Immature Gran % Neutrophils % Lymphocytes % Monocytes % Eosinophils % Basophils % Nucleated RBC % Absolute Neutrophils Absolute Lymphocytes Absolute Monocytes Absolute Eosinophils Absolute Basophils PT INR APTT VBG pH VBG pCO2 VBG pO2 VBG HCO3 VBG Total CO2 VBG O2 Saturation VBG Base Excess VBG Lactate 1.5 H Sodium Potassium Chloride Carbon Dioxide Anion Gap BUN Creatinine Estimated GFR/1.73 m2 Glucose Calcium Total Bilirubin AST ALT Alkaline Phosphatase Ammonia Troponin I NT-Pro-B Natriuret Pep Total Protein Albumin Procalcitonin TSH Urine Color Urine Clarity Urine pH Ur Specific [place] Urine Protein Urine Ketones Urine Blood Urine Nitrite Urine Bilirubin Urine Urobilinogen Ur Leukocyte Esterase Urine RBC Urine WBC Ur Epithelial Cells Urine Crystals Urine Bacteria Urine Casts Urine Mucus Urine Other Ur Culture Indicated? Urine Glucose COVID-19 PCR Nasopharyn COVID-19 PCR Ref Test Perform Site
--- NOTE | 2020-01-24 15:55 | WOUNDCONS ---
- If Service Date Differs Date of service: 01/24/20 Time of Service: 11:40 Wound Initial Evaluation - Wound Left Elbow Wound Type: Full Thickness Wound General Appearance: Unapproximated Wound Bed Greatest Portion: Yellow (Slough) Wound Surrounding Tissue Appearance: [place] Percent of Wound Bed Slough/Yellow: 100 Wound Length: 1.3 cm Wound Width: 1 cm Wound Depth: 0.1 cm Wound Drainage Amount: None Wound Topical Solution/Irrigant: Medicated Gel Wound Debridement Method: Gauze Wound Debridement Result: Yellow Sloughing Remains Right Mid Thigh Wound Type: Full Thickness Wound General Appearance: Unapproximated Wound Bed Greatest Portion: Red (Granulation) Wound Bed Lesser Portion: Yellow (Slough) Wound Surrounding Tissue Appearance: Normal/Healthy Percent of Wound Bed Granulated/Red: 75 Percent of Wound Bed Slough/Yellow: 25 Wound Length: 1.6 cm Wound Width: 1.7 cm Wound Depth: 0.1 cm Wound Drainage Amount: Minimal Wound Drainage Odor: None/Absent Wound Drainage Description: Serous Wound Debridement Method: Gauze left gluteal fold Wound Length: 8.5 cm Wound Width: 3 cm Wound Drainage Amount: Minimal - Pain Pain Level: 0 Pain Scale Used: Visual Analog Scale 0-10 l elbow- pt states she received wound by bumping elbow but used elbow to propel herself across the floor a few days prior to admission. Wound bed has regular edges with firmly adherent yellow slough. Wound measures 1.3 cm x 1 cm x 0.1 cm. MD in to see wound. Edges pink. No distinct induration noted. r inner thigh- wound bed with firmly adherent edges, no induration or increased warmth surrounding site. L gluteal fold purple area is hard, blanchable, irregularly round open area on surface bedside nursing staff noted to have discharge, unseen by this nurse. - Treatment/Dressing Change Topicals/Ointments: Anasept Gel Cleanse With: Saline Dressing Types: Mepilex w/Border - Recomendation Recomendation:: L elbow- Cleanse wound with saline, pat dry, apply anasept gel to base of wound, cover with mepilex with border. Change q 3 days and PRN. R inner thigh- cleanse with ns, pat dry, apply anasept gel to base of wound, cover with Mepilex with border. Change q 3 days and PRN. L gluteal fold- Consult surgical service.
[2020-01-24] MEDS: cefTRIAXone 2 GM/50 ML BAG IVPB (18:03)
[2020-01-24] MEDS: Budesonide/Formoterol 80/4.5 10.2 GM 120 PUFF INH IH (20:11)
[2020-01-24] MEDS: Ferrous Gluconate 324 MG TAB PO (20:12)
[2020-01-25] VITALS (39 sets, daily range): BP systolic 114–142; BP diastolic 55–92; PULSE 58–117; RESP 19–38; TEMP 36.3–37.4; O2SAT 91–97
--- NOTE | 2020-01-25 | DI.US_ITS ---
APPROVED REPORT EXAM: Comprehensive 2D, Doppler, and color-flow Echocardiogram [facility] Ind[facility]: CM, CHF, Fever Other Information Study Quality: Adequate Conclusion Left Ventricle : Left ventricle is mildly dilated. Left ventricular systolic function is mildly decre ased. Mild concentric left ventricular hypertrophy. There is global hypokinesis of the left ventricle . The left ventricular diastolic function is normal. LVEF is 45%. Right Ventricle : The right ventricle is normal size. The right ventricular systolic function is norm al. The RVSP is 30.6 mmHg. Atria : Left atrium is borderline dilated. Right atrium is borderline dilated. Aortic Valve : Aortic valve is calcified. The Aortic valve is sclerotic. Aortic valve is trileaflet. There is no aortic valvular stenosis. Mild aortic regurgitation. Mitral Valve : Moderate mitral annular calcification. No evidence of mitral valve stenosis. Moderate mitral regurgitation. Great Vessels : The aortic root is normal in size. The ascending aorta is moderately dilated. Aortic arch is not well visualized. IVC is normal in size and collapses >50% with inspiration. Compared to study from August 2019, there is no significant change. Wall motion Left Ventricle Left ventricle is mildly dilated. Left ventricular systolic function is mildly decreased. Mild concen tric left ventricular hypertrophy. There is global hypokinesis of the left ventricle. The left ventri cular diastolic function is normal. There is no ventricular septal defect visualized. LVEF is 45%. Right Ventricle The right ventricle is normal size. The right ventricular systolic function is normal. The RVSP is 30 .6 mmHg. Atria Left atrium is borderline dilated. Right atrium is borderline dilated. The interatrial septum is inta ct with no evidence for an atrial septal defect. Aortic Valve Aortic valve is calcified. The Aortic valve is sclerotic. Aortic valve is trileaflet. There is no aor tic valvular stenosis. Mild aortic regurgitation. Mitral Valve Moderate mitral annular calcification. No evidence of mitral valve stenosis. Moderate mitral regurgit ation. Tricuspid Valve The tricuspid valve is normal in structure. There is no tricuspid valve stenosis. Trace to mild tricu spid regurgitation. Pulmonic Valve The pulmonary valve is normal in structure. There is no pulmonic valvular stenosis. Trace pulmonic re gurgitation. Great Vessels The aortic root is normal in size. The ascending aorta is moderately dilated. Aortic arch is not well visualized. IVC is normal in size and collapses >50% with inspiration. Pericardium There is no pericardial effusion. 2D Dimensions IVSD d PLAX 1.27 cm F: 0.6-1.0 LV Vol A2C d MOD 190.0 mL LVPW d PLAX 1.27 cm F: 0.6 - 1.0 LV Vol A4C d MOD 138.8 mL LVID d PLAX 5.79 cm F: 3.8 - 5.2 LA vol/ BSA A2C s A-L 21.4 mL/m2 LVDs 4.45 cm F: 2.2 - 3.5 LA vol/ BSA A4C s A-L 40.9 mL/m2 Ao Root d 3.42 cm F: 2.7 - 3.3 LA Vol/ BSA Biplane s A-L 35.3 mL/m2 RA Area A4C 17.52 cm2 LA Area A4C s MOD 23.98 cm2 RA Vol/ BSA A4C s A-L 26.2 mL/m2 LA Area A2C s MOD 14.52 cm2 Ao Asc Diam d 3.94 cm F: 2.3 - 3.1 LV EF A4C MOD 46.0 % LV EF Teichholz 44.9 % LV EF A2C MOD 45.9 % LVEF (Carver's) 48.14 % F: 54 - 74 LV EF Biplane MOD 48.1 % LV Volume 130.57 mL F: 46 - 106 SV 81.48 mL LV Volume Index 70.96 mL/m2 F: 29 - 61 SV Index 44.22 mL/m2 LV Vol Biplane MOD 169.3 mL FS 22.65 % M-Mode TAPSE 1.95 cm (M/F) >1.7 LV Diastology MV E' medial 0.065 (>0.07 m/s) E/A Ratio 0.9 LV E/e MED 11.50 (<14) MV E Vmax 0.75 (0.4-1.3 m/s) MV E' lateral 0.083 (>0.1 m/s) MV A Vmax 0.80 (0.4-1.3 m/s) LV E/e LAT 9.00 (<14) MV E/A Ratio 0.93 MV E/E' medial 11.53 MV E/E' lateral 9.04 Aortic Valve LVOT Area 3.42 cm2 AoV Area Vmax 2.37 cm2 LVOT Vmax 1.19 m/s AoV Area/ BSA (Vmax) 1.29 cm2/m2 LVOT Mean [place]. 0.75 m/s ARTHUR Mean [place]. 2.13 cm2 LVOT Peak Grad 5.7 mmHg ARTHUR Mean [place]. Index 1.16 cm2/m2 LVOT Mean Grad 2.7 mmHg LVOT VTI 0.219 m LVOT Diam s 2.05 cm AoV Vmax 1.72 m/s Velocity Ratio 0.69 AoV Mean [place]. 1.20 m/s AoV Peak Grad 11.8 mmHg LVOT SV 75.05 mL AoV Mean Grad 6.6 mmHg AoV VTI 0.279 m AoV Area VTI 2.69 cm2 AoV Area/ BSA (VTI) 1.46 cm/m2 Mitral Valve MV DT 215 (160-240 msec) MR Vmax 5.21 m/s MV PHT 62 msec MR VTI 1.650 m MV Area PHT 3.52 cm2 MR Peak Grad 108.4 mmHg MV VTI 0.243 m MR Mean Grad 83.0 mmHg MV VTI Annulus 0.221 m MR PISA Radius 0.48 cm MV Area VTI 2.83 (4.0-6.0 cm2) MR EROA 0.10 cm2 MR Aliasing Velocity 0.35 m/s MR PISA 1.42 cm2 Pulmonary Valve PV Vmax 1.10 (0.5-1.5 m/s) RVOT Peak Gr. 2.55 mmHg PV Peak Grad 4.8 mmHg RVOT Mean Gr. 1.25 mmHg PV Mean Grad 2.3 mmHg RVOT VTI 0.148 m PV VTI 0.185 m RVOT Vmax 0.80 m/s Tricuspid Valve TR Peak Grad 27.6 mmHg TR Vmax 2.63 m/s RA Pressure 3.00 mmHg RVSP (TR) 30.6 mmHg
--- NOTE | 2020-01-25 00:58 | NUR.NOTE ---
Pt NPO after midnight per surgeon for possible I&D of abcess on buttock. Explained this to pt. Oral care with swabs provided.
[2020-01-25] MEDS: VANCOMYCIN 1,000 MG in Normal Saline 250 ML 166.667 MG IVPB (04:06)
[2020-01-25] MEDS: Levothyroxine 50 MCG TAB PO (05:42)
[2020-01-25 07:24] LABS: Abs Immature Grans 0.31 10^3/uL (0.0-0.06); Absolute Lymphocyte Count 0.74 10^3/uL (1.2-3.4); HCT 36.1 % (36.0-46.0); HGB 11.7 g/dL (11.2-15.7); MCHC 32.4 % (32.0-36.0); MCV 86.4 fL (80-95); MPV 10.7 fL (8.0-11.0); Nucleated RBC 0 %; RBC 4.18 10^6/uL (3.93-5.22); RDW 15.9 % (11.7-14.6); RDW-SD 50.4 fL; WBC 18.54 10^3/uL (4.4-10.8)
[2020-01-25 07:42] LABS: ALT 19 U/L (14-59); AST 18 U/L (15-37); Albumin 2.5 g/dL (3.4-5.0); Alkaline Phosphatase 87 U/L (46-116); Anion Gap 9.9 mmol/L (3-11); BUN 22 mg/dL (7-18); Bilirubin, Total 0.5 mg/dL (0.2-1.0); CO2 25.1 mmol/L (21.0-32.0); CREATININE 1.21 mg/dL (0.55-1.02); Calcium 9.8 mg/dL (8.5-10.1); Chloride 100 mmol/L (98-107); Estimated GFR 44.52 (mL/min/1.73m2); Glucose 210 mg/dL (74-106); Potassium 3.7 mmol/L (3.5-5.1); Sodium 135 mmol/L (136-145); Total Protein 6.3 g/dL (6.4-8.2)
[2020-01-25 07:55] LABS: Absolute Eosinophil Count 0.37 10^3/uL (0.0-0.7); Absolute Monocyte Count 1.11 10^3/uL (0.1-0.8); Absolute Neutrophil Count 15.94 10^3/uL (1.2-6.7); Bands % 15; Diff Comment Manual Differential; Metamyelocytes % 2; Platelet Count 181 10^3/uL (130-400)
[2020-01-25 07:56] LABS: Poikilocytes 2+
[2020-01-25 07:56] LABS: C-Reactive Protein > 25.00 mg/dL (0.0-0.3)
[2020-01-25 07:58] LABS: Hemoglobin A1C 10.2 % (<5.7)
--- NOTE | 2020-01-25 08:05 | W.PM.PROGNOT ---
Date of Service Date of service: 01/25/20 Time of Service: 08:05 Assessment and Plan Assessment and plan (1) Abscess, gluteal, left: Status: Acute Assessment and plan: This is more likely a catherine-rectal abscess. Her WBC remains elevated. I advised incision and drainage. The procedure and need to pack the wound open were discussed. The risks of bleeding and fistula formation with chronic drainage were discussed. She agrees to proceed. Will order stool cultures to evaluate the diarrhea. She has never had a colonoscopy which could be considered once her acute illness resolves. Subjective Subjective Interval history since last seen: Perineal region still sore with sitting. Notes some stool incontinence and numerous stools/day Exam Narrative Exam Narrative: Alert Decreased breath sounds bilaterally Heart RRR Perianal exam reveals no improvement in the erythema. Tender on left more posteriorly towards gluteal cleft. US shows a several cm SQ abscess Objective Last Vital Signs Temp 97.5 F L 01/25/20 03:54 Pulse 85 01/25/20 04:01 Resp 27 H 01/25/20 04:01 BP 121/61 01/25/20 04:01 Pulse Ox 92 01/25/20 04:01 Laboratory Results - last 24 hr 01/23/20 01/24/20 01/24/20 18:21 10:05 10:05 WBC RBC Hgb Hct MCV MCH MCHC RDW Plt Count MPV Immature Gran % Neutrophils % Band Neutrophils % Lymphocytes % Monocytes % Eosinophils % Basophils % Metamyelocytes % Nucleated RBC % Absolute Neutrophils Absolute Lymphocytes Absolute Monocytes Absolute Eosinophils Absolute Basophils RBC Morphology Poikilocytosis VBG Lactate 1.5 H Sodium Potassium Chloride Carbon Dioxide Anion Gap BUN Creatinine Estimated GFR/1.73 m2 Glucose Hemoglobin A1c Calcium Total Bilirubin AST ALT Alkaline Phosphatase Troponin I 0.05 C-Reactive Protein Total Protein Albumin COVID-19 PCR Negative Nasopharyn COVID-19 PCR Not Applicable Ref Test Perform Site [place] [facility] 01/25/20 01/25/20 01/25/20 06:19 06:19 06:42 WBC 18.54 H RBC 4.18 Hgb 11.7 Hct 36.1 MCV 86.4 MCH 28.0 MCHC 32.4 RDW 15.9 H Plt Count 181 MPV 10.7 Immature Gran % 0.0 Neutrophils % 71.0 Band Neutrophils % 15 Lymphocytes % 4.0 Monocytes % 6.0 Eosinophils % 2.0 Basophils % 0.0 Metamyelocytes % 2 Nucleated RBC % 0 Absolute Neutrophils 15.94 H Absolute Lymphocytes 0.74 L Absolute Monocytes 1.11 H Absolute Eosinophils 0.37 Absolute Basophils 0.00 RBC Morphology See below Poikilocytosis 2+ VBG Lactate Sodium 135 L Potassium 3.7 Chloride 100 Carbon Dioxide 25.1 Anion Gap 9.9 BUN 22 H D Creatinine 1.21 H Estimated GFR/1.73 m2 44.52 Glucose 210 H Hemoglobin A1c Calcium 9.8 Total Bilirubin 0.5 AST 18 ALT 19 Alkaline Phosphatase 87 Troponin I C-Reactive Protein > 25.00 H Total Protein 6.3 L Albumin 2.5 L COVID-19 PCR Nasopharyn COVID-19 PCR Ref Test Perform Site 01/25/20 06:42 WBC RBC Hgb Hct MCV MCH MCHC RDW Plt Count MPV Immature Gran % Neutrophils % Band Neutrophils % Lymphocytes % Monocytes % Eosinophils % Basophils % Metamyelocytes % Nucleated RBC % Absolute Neutrophils Absolute Lymphocytes Absolute Monocytes Absolute Eosinophils Absolute Basophils RBC Morphology Poikilocytosis VBG Lactate Sodium Potassium Chloride Carbon Dioxide Anion Gap BUN Creatinine Estimated GFR/1.73 m2 Glucose Hemoglobin A1c 10.2 H Calcium Total Bilirubin AST ALT Alkaline Phosphatase Troponin I C-Reactive Protein Total Protein Albumin COVID-19 PCR Nasopharyn COVID-19 PCR Ref Test Perform Site
[2020-01-25] MEDS: Budesonide/Formoterol 80/4.5 10.2 GM 120 PUFF INH IH ×2 (08:07→22:02)
[2020-01-25] MEDS: busPIRone 15 MG TAB PO ×2 (08:31→22:03)
[2020-01-25] MEDS: DULoxetine 30 MG CAP 60 MG PO ×2 (08:32→22:03)
[2020-01-25] MEDS: Ezetimibe 10 MG TAB PO (08:32)
[2020-01-25] MEDS: Docusate Sodium 100 MG CAP PO ×2 (08:33→22:03)
[2020-01-25] MEDS: Simvastatin 40 MG TAB PO (08:33)
[2020-01-25] MEDS: Pantoprazole 40 MG TABCR PO (08:34)
[2020-01-25] MEDS: Metoprolol 25 MG TAB PO ×4 (08:35→22:03)
[2020-01-25] MEDS: Insulin Aspart 300 UNITS/3 ML PEN SC ×4 (08:37→22:29)
[2020-01-25] MEDS: Insulin Glargine 300 UNITS/3 ML PEN 50 UNITS SC ×2 (08:41→22:28)
[2020-01-25 08:46] LABS: ESR 84 mm/hr (0-30)
--- NOTE | 2020-01-25 11:27 | PGE_ITS ---
Date of Service Date of service: 01/25/20 Time of Service: 11:28 Assessment and Plan Assessment and plan (1) Abscess, gluteal, right: Status: Suspected Assessment and plan: As above. Continue IV antibiotics (vancomycin and Rocephin), awaiting incision and drainage. (2) Type II diabetes mellitus with neurological manifestations: Status: Chronic Assessment and plan: Poorly controlled diabetes mellitus as evidenced by hemoglobin A1c of 9.2% back on September 22, 2019. Blood sugars are exacerbated by her acute infection. I have adjusted her basal bolus insulin as well as added carb coverage for meals. Blood sugars are improving. This morning was 217. Continue with basal bolus insulin treatment along with carbohydrate coverage. (3) Cardiomyopathy: Status: Chronic Assessment and plan: According to Dr. Albert Gill's note dated November 09, 2019 patient has an ischemic cardiomyopathy with an ejection fraction of 45%. He recommended restarting her aspirin and continuing ezetmibe and simvastatin, losartan, torsemide and consider switching to Entresto in the future. Patient is not clinically in acute CHF decompensation and her troponin levels did not reach threshold for acute FL. I suspect her elevated troponin is secondary to her sepsis. Her level has normalized and she has no dyspnea nor CP. IV fluids have been discontinued. Now that her renal functions improving I will resume her losartan started tomorrow morning. I will also start her torsemide depending on her BUN and creatinine. Qualifiers: Cardiomyopathy type: ischemic Qualified Code(s): I25.5 - Ischemic cardiomyopathy (4) COPD, mild: Status: Chronic Assessment and plan: No evidence for acute exacerbation. I will resume her home Symbicort as well as PRN use of albuterol. (5) Acute kidney injury (nontraumatic): Status: Acute Assessment and plan: Patient presented with acute kidney injury secondary to sepsis which has responded to IV fluids. BUN is now down to 22 creatinine is down to 1.21. Now she is eating and drinking IV fluids have been dc'd to prevent exacerbation of her cardiomyopathy. Continue to monitor her BUN and creatinine and urine output. (6) Chronic kidney disease, stage III (moderate): Status: Chronic Assessment and plan: As above (7) Elevated troponin I level: Status: Acute Assessment and plan: As above (8) DVT prophylaxis: Status: Acute Assessment and plan: Will place SCDs and teds for DVT prophylaxis. (9) Abrasion of left elbow: Status: Acute Assessment and plan: See wound care nurses consult note and recommendations Qualifiers: Encounter type: initial encounter Qualified Code(s): S50.312A - Abrasion of left elbow, initial encounter Subjective Subjective Patient reports: no new complaints and afebrile Interval history since last seen: Patient is awaiting surgical incision and drainage of her gluteal abscess. She remains afebrile. Currently is on vancomycin and Rocephin. White count remains elevated at 18,000. Renal function has improved. She is now off of IV fluids. Vital signs remain stable. At this point I think she is hemodynamically stable enough to be transferred to the medical/surgical floor. I&D is scheduled for 1230 this afternoon. Afterwards I think she can be transferred to the floor and we can start some physical therapy. Antibiotics will be altered based on the results of her wound culture. Blood cultures have shown no growth so far. I expect that the wound cultures will show either staph or strep infection. Exam Narrative Exam Narrative: Elderly female lying in bed in no acute distress. She is alert and oriented person place time circumstance. Lungs with bibasilar rales no rhonchi or wheezing. Heart is regular rate and rhythm. Abdomen soft and nontender. Gluteal area remains firm indurated erythematous and tender. Objective Last Vital Signs Temp 36.6 C 01/25/20 10:23 Pulse 79 01/25/20 10:01 Resp 26 H 01/25/20 10:01 BP 119/71 01/25/20 10:01 Pulse Ox 94 01/25/20 10:01 Laboratory Results - last 24 hr 01/23/20 01/25/20 01/25/20 18:21 06:19 06:19 WBC RBC Hgb Hct MCV MCH MCHC RDW Plt Count MPV Immature Gran % Neutrophils % Band Neutrophils % Lymphocytes % Monocytes % Eosinophils % Basophils % Metamyelocytes % Nucleated RBC % Absolute Neutrophils Absolute Lymphocytes Absolute Monocytes Absolute Eosinophils Absolute Basophils RBC Morphology Poikilocytosis ESR Sodium 135 L Potassium 3.7 Chloride 100 Carbon Dioxide 25.1 Anion Gap 9.9 BUN 22 H D Creatinine 1.21 H Estimated GFR/1.73 m2 44.52 Glucose 210 H Hemoglobin A1c Calcium 9.8 Total Bilirubin 0.5 AST 18 ALT 19 Alkaline Phosphatase 87 C-Reactive Protein > 25.00 H Total Protein 6.3 L Albumin 2.5 L COVID-19 PCR Negative Nasopharyn COVID-19 PCR Not Applicable Ref Test Perform Site [place] [facility] lab 01/25/20 01/25/20 06:42 06:42 WBC 18.54 H RBC 4.18 Hgb 11.7 Hct 36.1 MCV 86.4 MCH 28.0 MCHC 32.4 RDW 15.9 H Plt Count 181 MPV 10.7 Immature Gran % 0.0 Neutrophils % 71.0 Band Neutrophils % 15 Lymphocytes % 4.0 Monocytes % 6.0 Eosinophils % 2.0 Basophils % 0.0 Metamyelocytes % 2 Nucleated RBC % 0 Absolute Neutrophils 15.94 H Absolute Lymphocytes 0.74 L Absolute Monocytes 1.11 H Absolute Eosinophils 0.37 Absolute Basophils 0.00 RBC Morphology See below Poikilocytosis 2+ ESR 84 H Sodium Potassium Chloride Carbon Dioxide Anion Gap BUN Creatinine Estimated GFR/1.73 m2 Glucose Hemoglobin A1c 10.2 H Calcium Total Bilirubin AST ALT Alkaline Phosphatase C-Reactive Protein Total Protein Albumin COVID-19 PCR Nasopharyn COVID-19 PCR Ref Test Perform Site
--- NOTE | 2020-01-25 11:31 | W.NUTCONSULT ---
Date of service: 01/25/20 Time of Service: 11:31 Nutritional Consult ASSESSMENT: 65 year old female admitted s/p fall with muscle wounds, including an abscess of gluteal fold. PMH: poorly controlled DM, CKD, COPD. Meds include glargine 50 u BID, aspart sliding scale at meals. 1:10 correction factor. Currently NPO for surgery of abcsess today. Recent A1C: 10.2%, poorly controlled BS since admit. Inpatient Diabetes Education pending. Yesterday ate 100% of meals (CHO diet). [place] Body Weight: 75 lbs, Adjusted body weight: 175 lbs Estimated Needs (based on adjusted body weight 175 lbs): 5123-5466 kcal, 110-120 kg, 2400 ml fluid. Increased protein needs in view of large size and multiple wounds. NUTRITIONAL DIAGNOSIS: morbid obesity with BMI of 51 INTERVENTION: Diabetic Diet Liquid Protein Supplement: 1 oz BID MONITORING AND EVALUATION: wound healing, labs, weight and po intake. Time Spent in Nutritional Counseling and Treatment: 0 time spent face to face
[2020-01-25] MEDS: Lactated Ringers 1,000 ML 80 ML IV ×2 (13:25→22:02)
[2020-01-25] MEDS: Lidocaine 1% Multi-Dose 50 ML VIAL (13:49)
--- NOTE | 2020-01-25 13:58 | W.PM.OP ---
Date of service: 01/25/20 Time of Service: 13:58 Operative Note Operative Note DATE OF PROCEDURE: 01/25/20 PRE-OP DIAGNOSIS: Perirectal abscess - left POST-OP DIAGNOSIS: same PROCEDURE: Incision and drainage perirectal abscess SURGEON: Mine Roque ANESTHESIA: MAC and local Indications: This 65 year old woman presented with fever and mild sepsis picture. She had pain and induration in the left perirectal region. Procedure Description: The patient was placed in the left lateral decubitus position. There was a area of induration and erythema in the left perirectal area more towards the posterior aspect. This was prepped and draped sterilely. The skin was infiltrated with local anesthetic. An 18-gauge needle was used to identify the area with a purulent collection. A 2 cm long incision was made and an approximately 5 cm pocket identified. This extended anteriorly and towards the rectum. Cultures were obtained. The wound was irrigated with saline. It was packed with 1/2 inch gauze. Digital rectal examination revealed no abscess or masses in the vicinity. She tolerated the procedure well and was stable back to the ICU.
--- NOTE | 2020-01-25 14:50 | CHAPLAIN ---
Carmel was in bed when I visited, and brought in some birthday gifts for her that someone had left at the nurses' station. As soon as I introduced myself, Carmel said she was not interested in talking with me. I let her know that if she changed her mind, I am available.
--- NOTE | 2020-01-25 15:35 | NT_ITS ---
Date of service: 01/25/20 Time of Service: 11:30 PT Notes Visit Reasons: FEVER Refused PT evalaution x 2 stating that she wanted to be left alone. Nurse Crisostomo indicated that patient has a scheduled surgery around noon and so an evaluation was attempted at around 11:30 AM. Carmel appears to be low in motivation and is lethargic. In the afternoon after surgery, another attempt was made with Nurse Crisostomo present however, patient was in deep sleep. Nurse Crisostomo requested that evaluation be done tomorrow morning. Will plan on performing PT evaluation first thing tomorrow morning as ordered. Thank you for the opportunity to participate in the care of this patient. Alison Onofre PT, DPT, CLT [facility] [place], [place]
--- NOTE | 2020-01-25 15:57 | PDOC.CMPRO ---
- If Service Date Differs Date of service: 01/25/20 Time of Service: 16:02 Care Management Progress Note S/O: Carmel was lying in bed when CM met with her. She reported that she is not feeling well. She was pleasant, but not very engaged, keeping her eyes closed during most of the visit. Per RN, she would be going to the OR today for an incision and drain of the 'catherine rectal abscess' identified by . Carmel stated that she hasn't talked to her son, Ethan, but he did call and talk with the RN for an update earlier today. CM will continue to follow. A: Carmel is a 65 year old female admitted to [facility] on 01/23/20 with a fever. P: Anticipate Carmel will return home when medically cleared. She will be driven home by family in a private vehicle vs [facility]. She will resume her [employer] moderate needs, and may require new RN for med management. CM will continue to follow.
[2020-01-25] MEDS: cefTRIAXone 2 GM/50 ML BAG IVPB (17:18)
[2020-01-25] MEDS: Normal Saline Flush 10 ML SYR IVP ×2 (17:21→22:04)
[2020-01-25] MEDS: Ferrous Gluconate 324 MG TAB PO (22:03)
[2020-01-25] MEDS: VANCOMYCIN 1,000 MG in Normal Saline 250 ML 166.67 MG IVPB (22:04)
[2020-01-25] MEDS: Protein Nutritional Supplement 16 GM 1 OUNCE PACKET PO (22:04)
[2020-01-26] VITALS (9 sets, daily range): BP systolic 114–158; BP diastolic 62–91; PULSE 77–91; RESP 18–22; TEMP 36.3–37.5; O2SAT 94–100
[2020-01-26] MEDS: Levothyroxine 50 MCG TAB PO (05:26)
[2020-01-26 06:55] LABS: BUN 24 mg/dL (7-18); CREATININE 1.11 mg/dL (0.55-1.02); Chloride 100 mmol/L (98-107); Estimated GFR 49.18 (mL/min/1.73m2); Glucose 258 mg/dL (74-106); Potassium 3.7 mmol/L (3.5-5.1); Sodium 133 mmol/L (136-145)
[2020-01-26 07:12] LABS: Abs Immature Grans 0.15 10^3/uL (0.0-0.06); HCT 37.2 % (36.0-46.0); HGB 11.9 g/dL (11.2-15.7); MCH 27.9 pg (27.0-33.0); MCV 87.3 fL (80-95); MPV 11.2 fL (8.0-11.0); Nucleated RBC 0 %; Platelet Count 197 10^3/uL (130-400); RBC 4.26 10^6/uL (3.93-5.22); RDW 15.5 % (11.7-14.6); RDW-SD 49.2 fL; WBC 15.15 10^3/uL (4.4-10.8)
[2020-01-26 07:14] LABS: C-Reactive Protein 13.08 mg/dL (0.0-0.3)
[2020-01-26 07:38] LABS: Absolute Eosinophil Count 0.15 10^3/uL (0.0-0.7); Absolute Lymphocyte Count 0.61 10^3/uL (1.2-3.4); Absolute Monocyte Count 0.45 10^3/uL (0.1-0.8); Absolute Neutrophil Count 13.94 10^3/uL (1.2-6.7); Atypical Lymphocytes % 1; Bands % 3
[2020-01-26 07:39] LABS: Diff Comment Manual Differential; Poikilocytes 1+
--- NOTE | 2020-01-26 08:07 | W.PM.PROGNOT ---
Date of Service Date of service: 01/26/20 Time of Service: 08:07 Assessment and Plan Assessment and plan (1) Abscess, gluteal, left: Status: Acute Assessment and plan: s/p left gluteal abscess I&D on 01/25/20 Cultures pending C.Diff cancelled secondary to formed stool. Denies any further BMs since yesterday. Continue IV antibiotics, WBC count improving today. COVID Negative On 2L of supplemental 02, Sat 02 92% Encouraged deep breathing and use of the incentive spirometer. Difficulty with urination, straight cath with 400ccs out Subjective Subjective Interval history since last seen: Reports bottom is sore this morning. Denies having any BMs overnight. Tolerating diabetic diet Exam Const General: cooperative, healthy appearing and comfortable Orientation: alert and awake Resp Effort & Inspection: normal respiratory effort (On supplemental 02; Sat 92%), no audible wheezes and no cough GI Palpation: soft, no guarding and nontender Objective Last Vital Signs Temp 36.9 C 01/26/20 03:57 Pulse 77 01/26/20 03:57 Resp 18 01/26/20 03:57 BP 134/73 01/26/20 03:57 Pulse Ox 94 01/26/20 05:10 Laboratory Results - last 24 hr 01/25/20 01/25/20 01/26/20 06:42 18:00 06:32 WBC RBC Hgb Hct MCV MCH MCHC RDW Plt Count MPV Immature Gran % Neutrophils % Band Neutrophils % Lymphocytes % Atypical Lymphs % Monocytes % Eosinophils % Basophils % Nucleated RBC % Absolute Neutrophils Absolute Lymphocytes Absolute Monocytes Absolute Eosinophils Absolute Basophils RBC Morphology Poikilocytosis ESR 84 H Sodium 133 L Potassium 3.7 Chloride 100 Carbon Dioxide 25.0 Anion Gap 8.0 BUN 24 H Creatinine 1.11 H Estimated GFR/1.73 m2 49.18 Glucose 258 H Calcium 10.0 C-Reactive Protein 13.08 H Vancomycin Trough Cancelled 01/26/20 06:32 WBC 15.15 H RBC 4.26 Hgb 11.9 Hct 37.2 MCV 87.3 MCH 27.9 MCHC 32.0 RDW 15.5 H Plt Count 197 MPV 11.2 H Immature Gran % 0.0 Neutrophils % 89.0 Band Neutrophils % 3 Lymphocytes % 3.0 Atypical Lymphs % 1 Monocytes % 3.0 Eosinophils % 1.0 Basophils % 0.0 Nucleated RBC % 0 Absolute Neutrophils 13.94 H Absolute Lymphocytes 0.61 L Absolute Monocytes 0.45 Absolute Eosinophils 0.15 Absolute Basophils 0.00 RBC Morphology See below Poikilocytosis 1+ ESR Sodium Potassium Chloride Carbon Dioxide Anion Gap BUN Creatinine Estimated GFR/1.73 m2 Glucose Calcium C-Reactive Protein Vancomycin Trough
--- NOTE | 2020-01-26 08:40 | IN_ITS ---
Date of service: 01/26/20 Time of Service: 08:40 PT Notes Visit Reasons: FEVER Physical Therapy Inpatient Initial Evaluation Date: 01/26/2020 Referring Doctor: Jose A hernandez MD PT Orders: PT CONSULT: Limited ability Precautions: Fall. Standard. Activity as tolerated. 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 Patient fever of unknown origin, absence of left gluteal area, kidney injury, elevated troponin and abrasion of left elbow. PMHX: Medical History Abdominal aortic aneurysm (11/27/12) Identified 10/31/12 CT abd-pelvis; 4cm; stable 4.1 cm 07/2014 CT, 4.3cm 11/2016, 5.5[place] Brennen Nava following; see 04/2016 progress note. 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 Guerra DJD of right shoulder (01/01/13) 12/2012 x-ray severe DJD glenohumeral joint Dr. Guerra; not a surgical candidate for replacement Episode of seizures in July 2012 Esophageal reflux disease (07/24/11) UPPER GI SERIES 11/14/2012, MOD HIATAL HERNIA SEVERE GERD Headache (08/31/13) Hypertension Hypothyroidism Incarcerated umbilical hernia (09/06/15) Marijuana dependence Nausea and vomiting (08/01/14) a. previous history of possible marijuana induced hyperemesis Neurogenic bladder (07/24/11) Does not need to self-cath 11/2016: +Urinary retention [facility] inpt requiring cath; resolved by time of discharge Nicotine dependence Olecranon bursitis, left elbow Other and unspecified hyperlipidemia (08/14/12) Physical deconditioning RLS (restless legs syndrome) Spinal stenosis of lumbar region with neurogenic claudication (12/08/13) 04/13/2013 MRI Lumbar Spine: Facet arthropathy, DJD, L4-5, L5-S1 central spinal and neural foraminal stenosisNeurosurgery referral, but not a surgical candidate; [facility] chronic pain service Chronic Pain [facility] Pain Center consult 10/26/15 [facility] [place] 03/04/17 (Sanket Sawant MD) 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) Neuro work-up 2010/wchun +Hereditary, 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 Ambulates with cane when out; walker at home Tinea corporis Type II diabetes mellitus with neurological manifestations (05/04/14) Goal A1c < 7.5% Schein, neuropathy; Charcot's foot 03/19/13 [employer] Surgical History Appendectomy Childhood surgery, no date given by pt.HE Hemiarthroplasty (06/13/15) Dr Charlie Gallrado shoulder History of carpal tunnel release of both wrists (~05/2012) Hx of umbilical hernia repair (09/06/15) Incarcerated umbilical hernia repair (09/06/15) Tonsillectomy childhood surgery, no date given by pt.HE Social History/Home Situation: Patient lives alone with son in a private home. She is independent with all ADL performance using a front wheeled walker indoors and outdoors. She states she has a walk-in shower and that she is independent with bathing and dressing activities. Son does laundry, groceries and meals at home. Sister who lives across from her helps with anything she needs. She did not use oxygen supplementation before. Equipment Owned/DME: Front wheeled walker, single-point cane Subjective: Lisa reports feeling very tired and in pain. She requested to be transferred back to bed from her bedside recliner. She reports having fallen several times in the past year. She denies any headache, chest pain, and dizziness during this session. Objective: General Observation: Obese. Telemetry monitoring in place. IV access in R UE seen. Oxygen supplementation via nasal cannula. Mental Status: Alert and oriented x4 Pain: Complained of significant pain and discomfort on gluteal area and low back ROM: Right Upper Extremity: Shoulder Flexion allows up to 80 degrees. Shoulder abduction allows up to 90 degree. Elbow flexion WFL. Wrist flexion WFL. Opening and closing of hand WFL. Left Upper Extremity: Shoulder Flexion allows up to 100 degrees. Shoulder abduction allows up to 100 degrees. Elbow flexion WFL. Wrist flexion WFL. Opening and closing of hand WFL. Right Lower Extremity: Hip flexion 20 degrees past 90 while seated on chair. Hip abduction WFL. Knee flexion WFL. Knee extension -20 degrees. Ankle dorsiflexion WFL. Ankle plantarflexion WFL. Left Lower Extremity: Hip flexion 20 degrees past 90 while seated on chair. Hip abduction WFL. Knee flexion WFL. Knee extension -20 degrees. Ankle dorsiflexion WFL. Ankle plantarflexion WFL. Strength: Right Upper Extremity: Shoulder flexors 3-/5. Shoulder abductors 3-/5. Elbow flexors 4-/5. Elbow extensors 4-/5. Certified Breastfeeding Educator strong. Left Upper Extremity: Shoulder flexors 3-/5. Shoulder abductors 3-/5. Elbow flexors 4-/5. Elbow extensors 4-/5. Certified Breastfeeding Educator strong. Right Lower Extremity: Hip flexors 3-/5. Hip abductors 3+/5. Knee flexors 3+/5. Knee extensors 3-/5. Ankle dorsiflexors 3-/5. Ankle plantarflexors 3-/5. Left Lower Extremity: Hip flexors 3-/5. Hip abductors 3+/5. Knee flexors 3+/5. Knee extensors 3-/5. Ankle dorsiflexors 3-/5. Ankle plantarflexors 3-/5. Sensation: Intact as to pain and pressure on bilateral lower extremities. Bed Mobility/Transfers: Sit to supine minimal assist of 2 Sit to stand from edge of bed minimal assist of 2 with minimal verbal cueing for hand placement Stand to sit on to bedside recliner minimal assist of 2 with minimal verbal cueing for hand placement Bed to chair minimal assist of 2 with minimal verbal cueing for hand placement Chair to bed minimal assist of 2 with minimal verbal cueing for hand placement Gait: Patient was able to tolerate 6 steps +6 steps bedside recliner to bedside commode and from bedside commode to back to bed using front wheeled walker with minimal assist of 2. Step-to gait pattern seen. Decreased step height and length. Decreased monica. Patient complained of both legs being weak. Balance: Static Sitting: Good Dynamic Sitting: Fair Static Standing: Poor Dynamic Standing: Poor Special Tests: Mobility Limitations Standardized Measure [facility] [place] AM-PAC 6 clicks Basic Mobility Inpatient Short Form: Raw Score: 11 CMS Score: 72% deficit Informed Consent/Education: Patient instructed in purpose of PT consult and plan of care. Assessment: Lisa demonstrates significant functional mobility decline, instability with gait, generalized body weakness, pain from arthritis, and need for an assistive device for all ADL performance have resulted from current diagnoses and co-morbid conditions. 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 Patient fever of unknown origin, absence of left gluteal area, kidney injury, elevated troponin and abrasion of left elbow. Patient presents with clinical signs and symptoms consistent with current/admitting diagnoses that have resulted to mobility limitations, gait instability, generalized weakness, and impairment of motor control as demonstrated by the following impairment level findings: 1. Decreased strength to B UE/LE major muscle groups 2. Impaired sitting/standing balance 3. Impaired activity tolerance 4. Need for oxygen supplementation at all times Impairments are contributing to the following functional limitations: 1. Dependent bed mobility skills 2. Increased dependence with transfers 3. Inability to safely ambulate without assistive device and physical assistance 4. Increase completion time for mobility ADL performance 5. Increased fall risk 6. Inability to negotiate steps alone safely Patient is assessed as a 79023 moderate complexity based on the following: History: 65-year-old female with impairment level findings, functional limitations, and past medical history as listed above Examination: Demonstrable impairment in strength, balance, and activity tolerance with underlying impairments and functional limitations as documented above Presentation: Evolving Decision Makin moderate complexity Goals: Goals X1 week 1. Supine-Sit standby assist 2. Sit-Supine standby assist 3. Sit-Stand standby assist 4. Stand-Sit standby assist 5. Bed-Chair standby assist 6. Chair-Bed standby assist 7. Standby assist gait on level surface with use of least restrictive device for at least 300 feet without report of pain nor dyspnea 8. Standby assist stair negotiation while holding onto bilateral rails for at least 5 steps without report of pain nor dyspnea 9. Standby assist with home exercise program 10. Good static and dynamic standing balance/tolerance Plan of Care/Treatment Plan: 1-2x/day, 7 days/week x 1 week. Initiate Physical Therapy intervention for strengthening, bed mobility, transfers, gait, stairs, balance training, use of assistive device. DISCHARGE RECOMMENDATIONS: Patient will benefit from [facility] facility placement for continued skilled physical therapy services in order to progress mobility level, strength, and balance in preparation for a safe discharge to home. TREATMENT CODE/TIME: 78093 x 30 minutes beginning at 8:40 AM. Thank you very much for this referral. Alison Onofre PT, DPT, CLT [facility] [place], [place]
[2020-01-26] MEDS: Simvastatin 40 MG TAB PO (08:59)
[2020-01-26] MEDS: Protein Nutritional Supplement 16 GM 1 OUNCE PACKET PO ×2 (08:59→20:39)
[2020-01-26] MEDS: DULoxetine 30 MG CAP 60 MG PO ×2 (08:59→20:39)
[2020-01-26] MEDS: Acetaminophen 325 MG TAB 650 MG PO (08:59)
[2020-01-26] MEDS: Ezetimibe 10 MG TAB PO (09:00)
[2020-01-26] MEDS: Ferrous Gluconate 324 MG TAB PO ×2 (09:00→20:39)
[2020-01-26] MEDS: Metoprolol 25 MG TAB PO ×4 (09:01→20:39)
[2020-01-26] MEDS: Docusate Sodium 100 MG CAP PO ×2 (09:01→20:39)
[2020-01-26] MEDS: Losartan 25 MG TAB PO (09:01)
[2020-01-26] MEDS: Pantoprazole 40 MG TABCR PO (09:01)
[2020-01-26] MEDS: busPIRone 15 MG TAB PO ×2 (09:01→20:39)
[2020-01-26] MEDS: Insulin Glargine 300 UNITS/3 ML PEN 50 UNITS SC ×2 (09:02→20:40)
[2020-01-26] MEDS: Insulin Aspart 300 UNITS/3 ML PEN SC ×6 (09:04→23:04)
[2020-01-26 11:24] LABS: Vancomycin, Trough 10.9 ug/mL (10.0-20.0)
[2020-01-26] MEDS: VANCOMYCIN 1,000 MG in Normal Saline 250 ML 166.667 MG IVPB (12:23)
[2020-01-26] MEDS: Lactated Ringers 1,000 ML 80 ML IV (12:24)
--- NOTE | 2020-01-26 15:49 | PT.INNT ---
Date of service: 01/26/20 Time of Service: 15:49 PT Notes Visit Reasons: FEVER 01/26/2020 Patient refused Physical Therapy x2 this afternoon, stating that she is too tired and has had busy day today. She also acknowledges that she will need to be able to ambulate without assist in order to be discharged from here to home. Will attempt to resume PT services tomorrow morning.
--- NOTE | 2020-01-26 17:25 | PDOC.CMPRO ---
- If Service Date Differs Date of service: 01/26/20 Time of Service: 17:25 Care Management Progress Note S/O: Carmel was lying in bed when CM met with her. She reported that she had a busy day today and was very tired. PT attempted to work with Andressa while CM was in the room, and Andressa refused. CM discussed discharge planning with Andressa, who stated that she does want to go home, and is hoping that she will be feeling better and more up to PT tomorrow. CM will continue to follow. A: Carmel is a 65 year old female admitted to [facility] on 01/23/20 with a fever. P: Anticipate Carmel will return home when medically cleared. She will be driven home by family in a private vehicle vs [facility]. She will resume her [employer] moderate needs, and RN for med management, as well as PT. CM will continue to follow.
[2020-01-26] MEDS: oxyCODONE 5 mg/Acetaminophen 325 mg TAB PO (18:40)
[2020-01-26] MEDS: Budesonide/Formoterol 80/4.5 10.2 GM 120 PUFF INH IH (20:39)
[2020-01-26] MEDS: Melatonin 3 MG TAB PO (23:04)
[2020-01-27] MEDS: VANCOMYCIN 1,000 MG in Normal Saline 250 ML 166.667 MG IVPB (00:07)
[2020-01-27 05:00] VITALS: BP 128/75; PULSE 84; RESP 18; TEMP 36.7; O2SAT 91
[2020-01-27] MEDS: Levothyroxine 50 MCG TAB PO (05:31)
[2020-01-27] MEDS: Lactated Ringers 1,000 ML 80 ML IV (05:59)
[2020-01-27 07:25] LABS: HCT 36.5 % (36.0-46.0); HGB 11.7 g/dL (11.2-15.7); MCH 27.8 pg (27.0-33.0); MCHC 32.1 % (32.0-36.0); MCV 86.7 fL (80-95); Nucleated RBC 0 %; Platelet Count 184 10^3/uL (130-400); RBC 4.21 10^6/uL (3.93-5.22); RDW 15.2 % (11.7-14.6); RDW-SD 48.3 fL; WBC 15.72 10^3/uL (4.4-10.8)
[2020-01-27 07:44] LABS: Anion Gap 6.8 mmol/L (3-11); BUN 25 mg/dL (7-18); C-Reactive Protein 19.79 mg/dL (0.0-0.3); CO2 27.2 mmol/L (21.0-32.0); CREATININE 1.04 mg/dL (0.55-1.02); Calcium 9.7 mg/dL (8.5-10.1); Chloride 101 mmol/L (98-107); Estimated GFR 53.02 (mL/min/1.73m2); Glucose 216 mg/dL (74-106); Potassium 3.6 mmol/L (3.5-5.1); Sodium 135 mmol/L (136-145)
[2020-01-27] MEDS: Budesonide/Formoterol 80/4.5 10.2 GM 120 PUFF INH IH ×2 (07:56→20:16)
[2020-01-27 07:57] LABS: Absolute Neutrophil Count 13.68 10^3/uL (1.2-6.7); Bands % 6
[2020-01-27 07:58] LABS: Absolute Eosinophil Count 0.16 10^3/uL (0.0-0.7); Absolute Lymphocyte Count 0.94 10^3/uL (1.2-3.4); Absolute Monocyte Count 0.94 10^3/uL (0.1-0.8); Atypical Lymphocytes % 1; Diff Comment Manual Differential; Polychromasia Present
[2020-01-27 08:04] VITALS: BP 141/82; PULSE 71; RESP 21; TEMP 36.6; O2SAT 95
[2020-01-27 08:13] LABS: Procalcitonin 1.3 ng/mL
[2020-01-27 08:34] LABS: ESR 87 mm/hr (0-30)
[2020-01-27] MEDS: Simvastatin 40 MG TAB PO (08:38)
[2020-01-27] MEDS: Pantoprazole 40 MG TABCR PO (08:39)
[2020-01-27] MEDS: Losartan 25 MG TAB PO (08:39)
[2020-01-27] MEDS: Insulin Glargine 300 UNITS/3 ML PEN 50 UNITS SC (08:39)
[2020-01-27] MEDS: Docusate Sodium 100 MG CAP PO ×2 (08:39→20:16)
[2020-01-27] MEDS: Ezetimibe 10 MG TAB PO (08:39)
[2020-01-27] MEDS: busPIRone 15 MG TAB PO ×2 (08:39→20:16)
[2020-01-27] MEDS: DULoxetine 30 MG CAP 60 MG PO ×2 (08:39→20:16)
[2020-01-27] MEDS: Ferrous Gluconate 324 MG TAB PO ×2 (08:39→20:16)
[2020-01-27] MEDS: Metoprolol 25 MG TAB PO ×3 (08:39→20:16)
[2020-01-27] MEDS: Insulin Aspart 300 UNITS/3 ML PEN SC ×6 (08:40→21:30)
[2020-01-27] MEDS: Protein Nutritional Supplement 16 GM 1 OUNCE PACKET PO ×2 (08:41→20:17)
[2020-01-27] MEDS: CLINDAMYCIN 900 MG/50 ML BAG 50 MG IVPB (10:51)
[2020-01-27 11:35] VITALS: BP 165/73; PULSE 83; RESP 20; TEMP 36.5; O2SAT 94
[2020-01-27] MEDS: oxyCODONE 5 mg/Acetaminophen 325 mg TAB PO ×2 (11:39→20:39)
[2020-01-27] MEDS: Normal Saline Flush 10 ML SYR IVP ×3 (12:34→23:37)
--- NOTE | 2020-01-27 14:36 | CMPROGNOTE_ITS ---
- If Service Date Differs Date of service: 01/27/20 Time of Service: 14:36 Care Management Progress Note S/O: Andressa was lying in bed when CM met with her. She was not very engaged today, keeping her eyes closed during most of the conversation. CM discussed her working with PT, as she has declined working with them during this admission. She reported that she is tired. CM encouraged her to try to work with PT, as she has not been out of bed often in the last few days while at [facility]. CM called PT and left a message with Bev to learn more about Andressa's baseline, but has not heard back as of this afternoon. Andressa stated that she will not go to a SNF, and if that is suggested as the only option, she will leave AMA. She reported that she has done this before, and she was fine. CM will continue to follow. A: Carmel is a 65 year old female admitted to [facility] on 01/23/20 with a fever. P: Anticipate Carmel will return home when medically cleared. She will be driven home by family in a private vehicle vs [facility]. She will resume her C moderate needs, and RN, PT. CM will continue to follow.
[2020-01-27 15:32] VITALS: BP 108/65; PULSE 72; RESP 18; TEMP 36.2; O2SAT 93
--- NOTE | 2020-01-27 15:37 | W.NUTCONSULT ---
Date of service: 01/27/20 Time of Service: 15:00 Nutritional Consult ASSESSMENT: 65 y/o female with DM2, bilateral gluteal abscess, Hx CKD3, CAD. Tolerates her CCHO diet with adequate intake at meals.Lisa reports she was eating pizza and ice cream and had BG levels as high as 400mg/dl prior to admission. Currently >200% IBW with BMI 52.1 indicating morbid obesity. On lx protein supplement 30ml BID to provide 30 additional g/pro/day and vit C for wound healing.She is on 50 units lantus BID and ozempic. Current BG levels 215(01/25) and 216 today are improving with insulin, semeglutide and meals </+ 60 g CHO per meal period. Noted: documentation shows hx compliance issues. She reports having some success in the past with [employer] program. She stated that she knows how to count CHO's. Noted: at risk for potential fluid imbalance,on toursemide. NUTRITIONAL DIAGNOSIS: DM2 with hyperglycemia and morbid obesity AEB: BG in high 300's prior to admission and BMI 52.1. INTERVENTION: Reviewed CHO counting techniques and provided literature on same along with label reading and menu planning tips. Enc adequate fluids. Explained the role of protein in diet and by supplementation to promote wound healing. MONITORING AND EVALUATION: Monitor labs, weights, enc intake of CCHO diet as prakash Time Spent in Nutritional Counseling and Treatment: 15 minutes
--- NOTE | 2020-01-27 15:44 | PT.INTREAT ---
Date of service: 01/27/20 Time of Service: 15:45 PT Notes Visit Reasons: FEVER Inpatient Physical Therapy Treatment Note [facility] Date: 01/27/2020 PRECAUTIONS: Fall SUBJECTIVE: Lisa states that she is very tired and in pain. She states that she knows she must get up and walk to get better and go home, but does not feel she can do it today. She states that she will refuse to go to a senior care. She also reports that if she has to sit in the chair, I will sign myself out and go home to lay in my bed and . She also states I'll get myself up and move to the bed and when I fall, then you'll have to take responsibility. OBJECTIVE: PAIN: Patient reports significant gluteal pain with all activity and at rest. BED MOBILITY/TRANSFERS Sit-supine: SBA with HOB flat Sit-stand: Min A x2 Stand-sit: Min A x2 Bed-Chair: CGA x2 Chair-bed: CGA x2 GAIT Assistive Device: FWW Weight bearing: Full Assist: CGA Distance: 10 steps to R in a.m.; 6 steps to L in p.m. Deviation: Complains of significant gluteal pain and B LE weakness, cueing and assist for FWW management TOILETING: Patient toileted with Max A ASSESSMENT: Patient tolerated sessions with complaints of significantly increased gluteal pain with activity. She also c/o significant B LE weakness. Patient requires CGA x2 for safety. Patient would benefit from continued gait training as well as the addition of global strengthening for improved mobility. PLAN: Continue with gait and transfer training and add global strengthening TREATMENT CODE/TIME: Session 1: 25 minutes; 05884 x2 Session 2: 20 minutes; [id number]
--- NOTE | 2020-01-27 17:14 | PGE_ITS ---
Date of Service Date of service: 01/27/20 Time of Service: 17:15 Assessment and Plan Assessment and plan (1) Abscess, gluteal, left: Status: Acute Assessment and plan: patient is s/p incision and drainage of her left gluteal abscess performed 01/[address] Roque. Wound gram stain demonstrated mixed gran negative and gram positive organisms however the culture is only growing Gr oup B Streptococcus. She has been on Vancomycin and was on Rocephin which was changed to Meropenem for anaerobic coverage and better gram negative coverage although the Vancomycin was continued while the Rocphin was dc'ed. I have dc'ed her Vancomycin now and added PCN G 2.6 million units IV Q4h along w/ Clindamycin 900 mg IV Q8hr for Strep coverage. I will dc the Meropenem once the culture is finalized and we are sure that she does not have anaerobes or gram negatives. The wound is still foul smelling and draining. (2) Type II diabetes mellitus with neurological manifestations: Status: Chronic Assessment and plan: Blood sugars remain high in the 200's to 300's. I have increased her Lantus coverage and adjusted her meal time coverage and she remains on insulin resistant scale for additional coverage. (3) Cardiomyopathy: Status: Chronic Assessment and plan: According to Dr. Albert Gill's note dated November 09, 2019 patient has an ischemic cardiomyopathy with an ejection fraction of 45%. He recommended restarting her aspirin and continuing ezetmibe and simvastatin, losartan, torsemide and consider switching to Entresto in the future. Patient is not clinically in acute CHF decompensation and her troponin levels did not reach threshold for acute CO. I suspect her elevated troponin is secondary to her sepsis. Her level has normalized and she has no dyspnea nor CP. IV fluids were restarted perioperatively however, now that she is eating and drinking well I have stopped her iv fluids. Qualifiers: Cardiomyopathy type: ischemic Qualified Code(s): I25.5 - Ischemic cardiomyopathy (4) COPD, mild: Status: Chronic Assessment and plan: No evidence for acute exacerbation. I will resume her home Symbicort as well as PRN use of albuterol. (5) Acute kidney injury (nontraumatic): Status: Acute Assessment and plan: Patient presented with acute kidney injury secondary to sepsis which has responded to IV fluids. BUN is now down to 25 creatinine is down to 1.04. Now she is eating and drinking IV fluids have been dc'd to prevent exacerbation of her cardiomyopathy. Continue to monitor her BUN and creatinine and urine output. (6) Chronic kidney disease, stage III (moderate): Status: Chronic Assessment and plan: As above (7) Elevated troponin I level: Status: Acute Assessment and plan: As above (8) DVT prophylaxis: Status: Acute Assessment and plan: Will place SCDs and teds for DVT prophylaxis. (9) Abrasion of left elbow: Status: Acute Assessment and plan: See wound care nurses consult note and recommendations Qualifiers: Encounter type: initial encounter Qualified Code(s): S50.312A - Abrasion of left elbow, initial encounter Subjective Subjective Patient reports: no new complaints and bowel movement; denies nausea, vomiting, shortness of breath and fever Exam Narrative Exam Narrative: Obese female sitting up in bed; no distress; alert and oriented x 3 Lungs CTA Cor: RRR, soft systolic murmur over apex Abd: soft, nontender; normal bowel sounds gluteal wound is dressed; I did not take this down to examine Objective Last Vital Signs Temp 36.2 C L 01/27/20 15:32 Pulse 72 01/27/20 15:32 Resp 18 01/27/20 15:32 BP 108/65 01/27/20 15:32 Pulse Ox 93 01/27/20 15:32 Laboratory Results - last 24 hr 01/27/20 01/27/20 01/27/20 06:59 06:59 06:59 WBC 15.72 H RBC 4.21 Hgb 11.7 Hct 36.5 MCV 86.7 MCH 27.8 MCHC 32.1 RDW 15.2 H Plt Count 184 MPV 11.0 Immature Gran % 0.0 Neutrophils % 81.0 Band Neutrophils % 6 Lymphocytes % 5.0 Atypical Lymphs % 1 Monocytes % 6.0 Eosinophils % 1.0 Basophils % 0.0 Nucleated RBC % 0 Absolute Neutrophils 13.68 H Absolute Lymphocytes 0.94 L Absolute Monocytes 0.94 H Absolute Eosinophils 0.16 Absolute Basophils 0.00 RBC Morphology See below Polychromasia Present ESR 87 H Sodium 135 L Potassium 3.6 Chloride 101 Carbon Dioxide 27.2 Anion Gap 6.8 BUN 25 H Creatinine 1.04 H Estimated GFR/1.73 m2 53.02 Glucose 216 H Calcium 9.7 C-Reactive Protein 19.79 H Procalcitonin 1.3
--- NOTE | 2020-01-27 18:48 | WOUNDCONS ---
- If Service Date Differs Date of service: 01/27/20 Time of Service: 18:00 Wound Initial Evaluation Narrative: Notified of wound care consult for the perirectal abcess 01/27/20 at 1500. Per consult, I measured wound and then lightly packed perirectal abcess with 1/2 inch gauze and applied a secondary dressing. Patient did express burning with measurement process, but tolerated dressing change well. The wound is an incision which measures 3 cmx 0.1 cm on the surface of the skin, the wound extends under the skin for 2 cm at 6 o'clock and 1 cm at 12 o'clock. There is a small amount of brown draiange noted on the previous wick and on the prior dressing. There is a slight odor from the drainage. Ther periphery of the wound is slightly purplish and firm, extending in either direction for approximately 10 cm in either side of the incision and into the gluteal cleft. Nursing reports it being difficult to keep the dressing on the area due to patient movement as well as bowel habits. Frequent catherine care checks encouraged as was repositioning off of the wound. - Pain Pain Level: 5 Pain Scale Used: Vargas-Santillan Faces Pain Description: Burning Pain Duration/Frequency: Intermittent - Treatment/Dressing Change Topicals/Ointments: None Cleanse With: Saline Dressing Types: Nu-Gauze - Recomendation Recomendation:: Follow surgeon's recommendations- Perirectal abcess. Pack I and D site daily with 1/2 inch gauze. Cover with secondary dressing. Change dressing daily and PRN. COntinue dressings for L elbow and R inner thigh as previously ordered.
[2020-01-27 20:19] VITALS: BP 114/66; PULSE 79; RESP 18; TEMP 36.6; O2SAT 93
[2020-01-27] MEDS: Insulin Glargine 300 UNITS/3 ML PEN 60 UNITS SC (20:31)
--- NOTE | 2020-01-27 20:41 | W.PM.PROGNOT ---
Date of Service Date of service: 01/27/20 Time of Service: 18:00 Assessment and Plan Assessment and plan (1) Abscess, gluteal, left: Status: Acute Assessment and plan: cult = strep. on PCN c/o diarrhea. will send stool for c diff wound looks good. cont abx need to find a dressing regimine that keeps stool out of the wound and frequent cleaning. irrigate vs shower appears good and don't think requires further I & D (2) Fever of unknown origin: Status: Acute Subjective Subjective Interval history since last seen: moderate redness on the skin around the wound. some edema. Pt c/o pain. Has sensation that she has to move her bowels constantly. Up to commode about 8 times during pm- causing dislodgement of dressing. +contamination of wound w/ stool. Wound had been repacked by RN and did not probed. Objective Last Vital Signs Temp 36.6 C 01/27/20 20:19 Pulse 79 01/27/20 20:19 Resp 18 01/27/20 20:19 BP 114/66 01/27/20 20:19 Pulse Ox 93 01/27/20 20:19 Laboratory Results - last 24 hr 01/27/20 01/27/20 01/27/20 06:59 06:59 06:59 WBC 15.72 H RBC 4.21 Hgb 11.7 Hct 36.5 MCV 86.7 MCH 27.8 MCHC 32.1 RDW 15.2 H Plt Count 184 MPV 11.0 Immature Gran % 0.0 Neutrophils % 81.0 Band Neutrophils % 6 Lymphocytes % 5.0 Atypical Lymphs % 1 Monocytes % 6.0 Eosinophils % 1.0 Basophils % 0.0 Nucleated RBC % 0 Absolute Neutrophils 13.68 H Absolute Lymphocytes 0.94 L Absolute Monocytes 0.94 H Absolute Eosinophils 0.16 Absolute Basophils 0.00 RBC Morphology See below Polychromasia Present ESR 87 H Sodium 135 L Potassium 3.6 Chloride 101 Carbon Dioxide 27.2 Anion Gap 6.8 BUN 25 H Creatinine 1.04 H Estimated GFR/1.73 m2 53.02 Glucose 216 H Calcium 9.7 C-Reactive Protein 19.79 H Procalcitonin 1.3
[2020-01-28] VITALS (7 sets, daily range): BP systolic 129–153; BP diastolic 67–78; PULSE 71–83; RESP 17–20; TEMP 36.1–37.4; O2SAT 90–100
[2020-01-28] MEDS: Levothyroxine 50 MCG TAB PO (05:35)
[2020-01-28 06:43] LABS: HCT 36.5 % (36.0-46.0); HGB 11.6 g/dL (11.2-15.7); MCH 27.6 pg (27.0-33.0); MCHC 31.8 % (32.0-36.0); MCV 86.7 fL (80-95); MPV 10.7 fL (8.0-11.0); Nucleated RBC 0 %; Platelet Count 192 10^3/uL (130-400); RBC 4.21 10^6/uL (3.93-5.22); RDW 15.4 % (11.7-14.6); RDW-SD 48.9 fL; WBC 12.81 10^3/uL (4.4-10.8)
[2020-01-28 07:00] LABS: Anion Gap 6.3 mmol/L (3-11); BUN 26 mg/dL (7-18); CO2 28.7 mmol/L (21.0-32.0); CREATININE 0.99 mg/dL (0.55-1.02); Calcium 9.9 mg/dL (8.5-10.1); Chloride 104 mmol/L (98-107); Estimated GFR 56.12 (mL/min/1.73m2); Glucose 159 mg/dL (74-106); Potassium 4.2 mmol/L (3.5-5.1); Sodium 139 mmol/L (136-145)
[2020-01-28 07:34] LABS: Abs Immature Grans 0.51 10^3/uL (0.0-0.06); Absolute Eosinophil Count 0.26 10^3/uL (0.0-0.7); Absolute Lymphocyte Count 1.02 10^3/uL (1.2-3.4); Absolute Monocyte Count 0.77 10^3/uL (0.1-0.8); Absolute Neutrophil Count 10.25 10^3/uL (1.2-6.7); Atypical Lymphocytes % 1; Metamyelocytes % 3; Myelocytes % 1
[2020-01-28 07:35] LABS: Basophilic Stippling Present; Diff Comment Manual Differential; Polychromasia Present
[2020-01-28] MEDS: Simvastatin 40 MG TAB PO (08:11)
[2020-01-28] MEDS: Ferrous Gluconate 324 MG TAB PO ×2 (08:11→20:09)
[2020-01-28] MEDS: DULoxetine 30 MG CAP 60 MG PO ×2 (08:11→20:08)
[2020-01-28] MEDS: Pantoprazole 40 MG TABCR PO (08:11)
[2020-01-28] MEDS: oxyCODONE 5 mg/Acetaminophen 325 mg TAB PO ×3 (08:11→23:30)
[2020-01-28] MEDS: Ezetimibe 10 MG TAB PO (08:12)
[2020-01-28] MEDS: busPIRone 15 MG TAB PO ×2 (08:12→20:09)
[2020-01-28] MEDS: Losartan 25 MG TAB PO (08:12)
[2020-01-28] MEDS: Docusate Sodium 100 MG CAP PO ×2 (08:12→20:09)
[2020-01-28] MEDS: Protein Nutritional Supplement 16 GM 1 OUNCE PACKET PO ×2 (08:12→20:09)
[2020-01-28] MEDS: Metoprolol 25 MG TAB PO ×4 (08:12→20:09)
[2020-01-28] MEDS: Insulin Glargine 300 UNITS/3 ML PEN 60 UNITS SC (08:13)
[2020-01-28] MEDS: Insulin Aspart 300 UNITS/3 ML PEN SC ×4 (08:13→17:15)
[2020-01-28] MEDS: Budesonide/Formoterol 80/4.5 10.2 GM 120 PUFF INH IH ×2 (08:21→20:08)
--- NOTE | 2020-01-28 09:02 | W.PM.PROGNOT ---
Date of Service Date of service: 01/28/20 Time of Service: 09:02 Assessment and Plan Assessment and plan (1) Perirectal abscess: Status: Acute Assessment and plan: Continue wound care Region appears slightly improved, WBC improved as well Is on PCN and clindamycin Patient may develop a fistula from the anal region to the I and D site. Some persistent drainage is possible. Subjective Subjective Interval history since last seen: Patient has been complaining of diarrhea but nursing reports one formed stool yesterday. Wound is sore with packing Exam Narrative Exam Narrative: Packing removed, has thin brownish drainage Erythema is slowly resolving. Tissue induration still present, especially anterior to the wound, but is better than a few days ago. Objective Last Vital Signs Temp 98.1 F 01/28/20 07:36 Pulse 77 01/28/20 07:36 Resp 18 01/28/20 07:36 BP 132/78 01/28/20 07:36 Pulse Ox 100 01/28/20 08:30 Laboratory Results - last 24 hr 01/28/20 01/28/20 06:18 06:18 WBC 12.81 H RBC 4.21 Hgb 11.6 Hct 36.5 MCV 86.7 MCH 27.6 MCHC 31.8 L RDW 15.4 H Plt Count 192 MPV 10.7 Immature Gran % See Differential Neutrophils % 80.0 Lymphocytes % 7.0 Atypical Lymphs % 1 Monocytes % 6.0 Eosinophils % 2.0 Basophils % 0.0 Metamyelocytes % 3 Myelocytes % 1 Nucleated RBC % 0 Absolute Neutrophils 10.25 H Absolute Lymphocytes 1.02 L Absolute Monocytes 0.77 Absolute Eosinophils 0.26 Absolute Basophils 0.00 RBC Morphology See below Polychromasia Present Basophilic Stippling Present Sodium 139 Potassium 4.2 Chloride 104 Carbon Dioxide 28.7 Anion Gap 6.3 BUN 26 H Creatinine 0.99 Estimated GFR/1.73 m2 56.12 Glucose 159 H Calcium 9.9
[2020-01-28] MEDS: CLINDAMYCIN 900 MG/50 ML BAG 50 MG IVPB (10:24)
--- NOTE | 2020-01-28 11:47 | PGE_ITS ---
Date of Service Date of service: 01/28/20 Time of Service: 11:47 Assessment and Plan Assessment and plan (1) Abscess, gluteal, left: Status: Acute Assessment and plan: patient is s/p incision and drainage of her left gluteal abscess performed 01/[address] Roque. Wound cultures growing group B streptococcus and her blood cultures are growing gram-positive cocci presumably the same organism. Patient is currently being treated with clindamycin and pen G. Clinically the patient has improved her white count is down to 12,000 and she is afebrile. (2) Bacteremia due to Gram-positive bacteria: Status: Acute Assessment and plan: As above. Patient had echocardiogram January 23, 2020 which did not show any vegetations. Patient has mild LV dilatation and mild decrease in her LV systolic function and concentric LVH with global hypokinesis with an LVEF of 45%. RV size and function was normal. Patient has borderline left and right atrial dilatation. Patient has a sclerotic aortic valve and mild aortic regurgitation. 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 Compared to her prior echo of August 2019 there is been no significant change. (3) Type II diabetes mellitus with neurological manifestations: Status: Chronic Assessment and plan: Blood sugars remain high in the 200's to 300's. I have increased her Lantus coverage and adjusted her meal time coverage and she remains on insulin resistant scale for additional coverage. (4) Cardiomyopathy: Status: Chronic Assessment and plan: According to Dr. Albert Gill's note dated November 09, 2019 patient has an ischemic cardiomyopathy with an ejection fraction of 45%. He recommended restarting her aspirin and continuing ezetmibe and simvastatin, losartan, torsemide and consider switching to Entresto in the future. Not clinically in acute CHF. IV fluids have been discontinued. Qualifiers: Cardiomyopathy type: ischemic Qualified Code(s): I25.5 - Ischemic cardiomyopathy (5) COPD, mild: Status: Chronic Assessment and plan: No evidence for acute exacerbation. I have resumed her home Symbicort as well as PRN use of albuterol. (6) Acute kidney injury (nontraumatic): Status: Resolved Assessment and plan: Acute kidney injury has resolved. (7) Chronic kidney disease, stage III (moderate): Status: Chronic Assessment and plan: As above (8) Elevated troponin I level: Status: Acute Assessment and plan: As above (9) DVT prophylaxis: Status: Acute Assessment and plan: Will place SCDs and teds for DVT prophylaxis. Subjective Subjective Interval history since last seen: No new complaints. She has persistent discomfort over her left gluteal area. She has persistent foul drainage from this area. I discussed the case with Dr. Heck and she indicated that this abscess is a perirectal abscess and very well may fistulized. Blood cultures are growing gram-positive cocci in the anaerobic bottle. Wound culture is suzi wing group B streptococcus. Patient is currently on penicillin G 2,500,000 units IV every 4 hours and clindamycin 900 mg IV every 8 hours. Exam Narrative Exam Narrative: Obese female sitting up in her chair alert and oriented x3. Lungs are clear to auscultation Heart is regular rate and rhythm Abdomen soft obese nontender Objective Last Vital Signs Temp 36.7 C 01/28/20 07:36 Pulse 77 01/28/20 07:36 Resp 18 01/28/20 07:36 BP 132/78 01/28/20 07:36 Pulse Ox 94 01/28/20 09:07 Laboratory Results - last 24 hr 01/28/20 01/28/20 06:18 06:18 WBC 12.81 H RBC 4.21 Hgb 11.6 Hct 36.5 MCV 86.7 MCH 27.6 MCHC 31.8 L RDW 15.4 H Plt Count 192 MPV 10.7 Immature Gran % See Differential Neutrophils % 80.0 Lymphocytes % 7.0 Atypical Lymphs % 1 Monocytes % 6.0 Eosinophils % 2.0 Basophils % 0.0 Metamyelocytes % 3 Myelocytes % 1 Nucleated RBC % 0 Absolute Neutrophils 10.25 H Absolute Lymphocytes 1.02 L Absolute Monocytes 0.77 Absolute Eosinophils 0.26 Absolute Basophils 0.00 RBC Morphology See below Polychromasia Present Basophilic Stippling Present Sodium 139 Potassium 4.2 Chloride 104 Carbon Dioxide 28.7 Anion Gap 6.3 BUN 26 H Creatinine 0.99 Estimated GFR/1.73 m2 56.12 Glucose 159 H Calcium 9.9
--- NOTE | 2020-01-28 12:31 | PT.INTREAT ---
Date of service: 01/28/20 Time of Service: 12:32 PT Notes Visit Reasons: FEVER Inpatient Physical Therapy Treatment Note [facility] Date: 01/28/2020 PRECAUTIONS: Fall SUBJECTIVE/OBJECTIVE: Lisa states that she told herself this morning that I am going to be good and do what I'm supposed to do today. After starting PT session, she states that she is just in too much pain to walk or sit up in a chair. She refuses to participate in PT further than transferring to the commode to toilet, then transferring back to bed. This therapist has discussed with the patient that over the past three days, she has refused both afternoon and morning PT sessions, only participating to use the commode and back to bed. Patient is aware that she has the right to decline PT, and if she continues to do so, she will be discharged from PT services tomorrow. Patient states that is fine, I will just do PT at home. My son will get me home and help me into the house. PAIN: Patient reports significant gluteal pain with all activity and at rest. BED MOBILITY/TRANSFERS Supine-sit: Mod A with HOB at 40 degrees Sit-supine: SBA with HOB flat Sit-stand: Mod A x2 Stand-sit: Min A x2 Bed-Chair: Min A + CGA Chair-bed: CGA x2 GAIT Assistive Device: FWW Weight bearing: Full Assist: Min A + CGA in a.m.; CGA x2 in p.m. Distance: 5 steps to R + 6 steps to R in a.m.; 6 steps to R in p.m. Deviation: Complains of significant gluteal pain and B LE weakness in a.m.; cueing and assist for FWW management in both a.m. and p.m. THEREX: Patient refused to participate in ther ex stating I was almost asleep and you just woke me up. I'm too tired to do anything, can we try tomorrow? TOILETING: Patient toileted with Max A ASSESSMENT: Patient tolerated sessions with complaints of significantly increased gluteal pain with activity. She also c/o significant B LE weakness. Patient requires Mod A x2 for sit-stand transfers at this point for safety due to decreased mobility. Patient would benefit from continued gait training as well as the addition of global strengthening for improved mobility. PLAN: Continue with gait and transfer training and add global strengthening TREATMENT CODE/TIME: Session 1: 30 minutes; [id number] x2 Session 2: 10 minutes; [id number]
--- NOTE | 2020-01-28 13:00 | CMPROGNOTE_ITS ---
Care Management Progress Note S/O: Andressa remains uninterested in transferring to SNF upon discharge and intends on returning home. Established CM to discuss PT refusal with Carmel in the morning. PT will sign off from service if Carmel continues to decline service. Per MD, blood cultures were positive and Carmel will remain at [facility] while treatment is determined. She remains on IV ABX and wound care at this time. CM will continue to follow. A: Carmel is a 65 year old female admitted to [facility] on 01/23/20 with a fever. P: Anticipate Carmel will return home when medically cleared. She will be driven home by family in a private vehicle vs [facility]. She will resume her CFC moderate needs, and RN, PT. CM continues to follow.
[2020-01-28] MEDS: Insulin Glargine 300 UNITS/3 ML PEN 70 UNITS SC (20:10)
[2020-01-28] MEDS: Normal Saline Flush 10 ML SYR IVP (20:33)
[2020-01-28] MEDS: Melatonin 3 MG TAB PO (20:45)
[2020-01-28] MEDS: Nicotine 14 MG/24 HR PATCH TD (21:26)
[2020-01-29] MEDS: Levothyroxine 50 MCG TAB PO (05:56)
[2020-01-29 07:16] LABS: HCT 37.7 % (36.0-46.0); HGB 12.2 g/dL (11.2-15.7); MCH 27.4 pg (27.0-33.0); MCHC 32.4 % (32.0-36.0); MCV 84.7 fL (80-95); MPV 10.7 fL (8.0-11.0); Nucleated RBC 0 %; Platelet Count 214 10^3/uL (130-400); RBC 4.45 10^6/uL (3.93-5.22); RDW 15.3 % (11.7-14.6); RDW-SD 46.9 fL; WBC 12.43 10^3/uL (4.4-10.8)
[2020-01-29 07:32] LABS: ALT 55 U/L (14-59); AST 39 U/L (15-37); Alkaline Phosphatase 326 U/L (46-116); Anion Gap 8.1 mmol/L (3-11); BUN 21 mg/dL (7-18); Bilirubin, Total 0.5 mg/dL (0.2-1.0); CO2 27.9 mmol/L (21.0-32.0); CREATININE 0.83 mg/dL (0.55-1.02); Calcium 9.8 mg/dL (8.5-10.1); Chloride 100 mmol/L (98-107); Glucose 93 mg/dL (74-106); Potassium 3.6 mmol/L (3.5-5.1); Sodium 136 mmol/L (136-145)
[2020-01-29 07:39] LABS: Absolute Lymphocyte Count 1.62 10^3/uL (1.2-3.4); Absolute Monocyte Count 0.62 10^3/uL (0.1-0.8); Absolute Neutrophil Count 9.94 10^3/uL (1.2-6.7); Bands % 5; Diff Comment Manual Differential; Metamyelocytes % 1; Myelocytes % 1; RBC Morphology Normal
[2020-01-29] MEDS: Normal Saline Flush 10 ML SYR IVP ×4 (08:02→20:01)
[2020-01-29] MEDS: Pantoprazole 40 MG TABCR PO (08:03)
[2020-01-29] MEDS: Protein Nutritional Supplement 16 GM 1 OUNCE PACKET PO ×2 (08:03→20:03)
[2020-01-29] MEDS: Metoprolol 25 MG TAB PO ×4 (08:03→20:02)
[2020-01-29] MEDS: Ferrous Gluconate 324 MG TAB PO ×2 (08:03→20:02)
[2020-01-29] MEDS: Losartan 25 MG TAB PO (08:03)
[2020-01-29] MEDS: DULoxetine 30 MG CAP 60 MG PO ×2 (08:03→20:01)
[2020-01-29] MEDS: Ezetimibe 10 MG TAB PO (08:03)
[2020-01-29] MEDS: Simvastatin 40 MG TAB PO (08:03)
[2020-01-29] MEDS: busPIRone 15 MG TAB PO ×2 (08:03→20:01)
[2020-01-29] MEDS: Docusate Sodium 100 MG CAP PO ×2 (08:04→20:02)
[2020-01-29 08:08] VITALS: BP 158/84; PULSE 77; RESP 17; TEMP 36.9; O2SAT 94
--- NOTE | 2020-01-29 10:01 | PT.INNT ---
Date of service: 01/29/20 Time of Service: 08:50 PT Notes Visit Reasons: FEVER 01/29/2020 Carmel refused to participate in PT session this morning, stating I can't right now because I don't feel well. We reviewed the conversation from yesterday, reminding her that if she continues to refuse to participate in PT services, beyond transferring to the commode, she will be discharged from Physical Therapy. She requests that this therapist return at 11:00.
--- NOTE | 2020-01-29 10:51 | PT.INNT ---
Date of service: 01/29/20 Time of Service: 10:52 PT Notes Visit Reasons: FEVER 01/29/2020 Carmel refused PT services, second attempt. Patient was informed that due to her refusal, she is to be discharged from PT at this point, she states okay, that's fine.
[2020-01-29] MEDS: CLINDAMYCIN 900 MG/50 ML BAG 50 MG IVPB ×2 (11:32→16:59)
--- NOTE | 2020-01-29 12:00 | PT.INDS ---
Date of service: 01/29/20 PT Notes Visit Reasons: FEVER Inpatient Physical Therapy Discharge Summary Dates: 01/29/2020 Dates of Service: 01/26/2020 through 01/29/2020 This is a clinical summary of care provided on the duration of dates listed above. No charge was made in the completion of this documentation. Referring Doctor: Jose A hernandez MD PT Orders: PT CONSULT: Limited ability Precautions: Fall. Standard. Activity as tolerated. 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 Patient is diagnosed with fever of unknown origin, abrasion of L elbow, kidney injury, elevated troponin, and abrasion of left elbow. PMHX: Medical History Abdominal aortic aneurysm (11/27/12) Identified 10/31/12 CT abd-pelvis; 4cm; stable 4.1 cm 07/2014 CT, 4.3cm 11/2016, 5.5cm 03/04/17 ([facility]). Brennen Nava following; see 04/2016 progress note. 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 Ward Calculus of kidney and ureter Cardiomyopathy Dr Fair, EF 45% Jun 2014 ECHO (h/o much worse) 10/2016 ECHO: EF 40-45% 10/2016 MPI: no acute, but persistent old infarct Carpal tunnel syndrome (08/14/12) resolved s/p b/l release Chronic back pain History of chronic opioids, now none Chronic kidney disease, stage III (moderate) (08/14/12) Cortical atrophy R kidney on CT 07/2014; multiple cysts COPD, mild (07/02/17) PFTs Coronary artery disease involving [place] coronary artery of [place] heart INFERIOR MA 1996, 100% RCA occlusion; large inf defect on perfusion scan, dr Fair Depressive disorder (08/14/12) Diabetes type 2, uncontrolled 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 Guerra DJD of right shoulder (01/01/13) 12/2012 x-ray severe DJD glenohumeral joint Dr. Guerra; not a surgical candidate for replacement Episode of seizures in July 2012 Esophageal reflux disease (07/24/11) UPPER GI SERIES 11/14/2012, MOD HIATAL HERNIA SEVERE GERD Headache (08/31/13) Hypertension Hypothyroidism Incarcerated umbilical hernia (09/06/15) Marijuana dependence Nausea and vomiting (08/01/14) a. previous history of possible marijuana induced hyperemesis Neurogenic bladder (07/24/11) Does not need to self-cath 11/2016: +Urinary retention [facility] inpt requiring cath; resolved by time of discharge Nicotine dependence Olecranon bursitis, left elbow Other and unspecified hyperlipidemia (08/14/12) Physical deconditioning RLS (restless legs syndrome) Spinal stenosis of lumbar region with neurogenic claudication (12/08/13) 04/13/2013 MRI Lumbar Spine: Facet arthropathy, DJD, L4-5, L5-S1 central spinal and neural foraminal stenosisNeurosurgery referral, but not a surgical candidate; [facility] chronic pain service Chronic Pain [facility] Pain Center consult 10/26/15 [facility] Spine Center consult 03/04/17 (Sanket Sawant MD) 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) Neuro work-up 2010/wchun +Hereditary, 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 Social History/Home Situation: Patient lives alone with son in a private home. She is independent with all ADL performance using a front wheeled walker indoors and outdoors. She states she has a walk-in shower and that she is independent with bathing and dressing activities. Son does laundry, groceries and meals at home. Sister who lives across from her helps with anything she needs. She did not use oxygen supplementation before. Equipment Owned/DME: Front wheeled walker, single-point cane Subjective: NT. See most recent LITIGATION SERVICES MANAGER notes. Objective: General Observation: Obese. NT. See most recent LITIGATION SERVICES MANAGER notes. Mental Status: NT. See most recent LITIGATION SERVICES MANAGER notes. Pain: NT. See most recent LITIGATION SERVICES MANAGER notes. ROM: Right Upper Extremity: Shoulder Flexion allows up to 80 degrees. Shoulder abduction allows up to 90 degree. Elbow flexion WFL. Wrist flexion WFL. Opening and closing of hand WFL. Left Upper Extremity: Shoulder Flexion allows up to 100 degrees. Shoulder abduction allows up to 100 degrees. Elbow flexion WFL. Wrist flexion WFL. Opening and closing of hand WFL. Right Lower Extremity: Hip flexion 20 degrees past 90 while seated on chair. Hip abduction WFL. Knee flexion WFL. Knee extension -20 degrees. Ankle dorsiflexion WFL. Ankle plantarflexion WFL. Left Lower Extremity: Hip flexion 20 degrees past 90 while seated on chair. Hip abduction WFL. Knee flexion WFL. Knee extension -20 degrees. Ankle dorsiflexion WFL. Ankle plantarflexion WFL. Strength: Right Upper Extremity: Shoulder flexors 3-/5. Shoulder abductors 3-/5. Elbow flexors 4-/5. Elbow extensors 4-/5. Business Administration Teacher strong. Left Upper Extremity: Shoulder flexors 3-/5. Shoulder abductors 3-/5. Elbow flexors 4-/5. Elbow extensors 4-/5. Business Administration Teacher strong. Right Lower Extremity: Hip flexors 3-/5. Hip abductors 3+/5. Knee flexors 3+/5. Knee extensors 3-/5. Ankle dorsiflexors 3-/5. Ankle plantarflexors 3-/5. Left Lower Extremity: Hip flexors 3-/5. Hip abductors 3+/5. Knee flexors 3+/5. Knee extensors 3-/5. Ankle dorsiflexors 3-/5. Ankle plantarflexors 3-/5. Sensation: Intact as to pain and pressure on bilateral lower extremities. Bed Mobility/Transfers: Sit to supine SBA with HOB flat Sit to stand from edge of bed moderate assist of 2 with minimal verbal cueing for hand placement Stand to sit on to bedside recliner minimal assist of 2 with minimal verbal cueing for hand placement Bed to chair minimal assist of 2 with minimal verbal cueing for hand placement Chair to bed contact guard assist of 2 with minimal verbal cueing for hand placement Gait: Patient was able to tolerate 6 steps to R with CGA x 2. Step-to gait pattern seen. Decreased step height and length. Decreased monica. Patient complained of both legs being weak. Balance: Static Sitting: Good Dynamic Sitting: Fair Static Standing: Poor Dynamic Standing: Poor Assessment: Lisa has refused to participate in any progressive strengthening and balance retraining since start of care and has therefore has not demonstrated any functional mobility improvements. She continues to exhibit instability with gait, generalized body weakness, pain from arthritis, and need for an assistive device for all ADL performance have resulted from current diagnoses and co-morbid conditions. She is discontinued from skilled services due to lack of motivation and refusal to continue with mobility progression interventions. Care management has been made aware of patient's response toward therapy and of the planned discharge due to lack of cooperation. Patient continues to present with clinical signs and symptoms consistent with current/admitting diagnoses that have resulted to mobility limitations, gait instability, generalized weakness, and impairment of motor control as demonstrated by the following impairment level findings: 1. Decreased strength to B UE/LE major muscle groups 2. Impaired sitting/standing balance 3. Impaired activity tolerance 4. Need for oxygen supplementation at all times Impairments are contributing to the following functional limitations: 1. Dependent bed mobility skills 2. Increased dependence with transfers 3. Inability to safely ambulate without assistive device and physical assistance 4. Increase completion time for mobility ADL performance 5. Increased fall risk 6. Inability to negotiate steps alone safely Goals: Goals X1 week 1. Supine-Sit standby assist MET 2. Sit-Supine standby assist NOT MET 3. Sit-Stand standby assist NOT MET 4. Stand-Sit standby assist NOT MET 5. Bed-Chair standby assist NOT MET 6. Chair-Bed standby assist NOT MET 7. Standby assist gait on level surface with use of least restrictive device for at least 300 feet without report of pain nor dyspnea NOT MET 8. Standby assist stair negotiation while holding onto bilateral rails for at least 5 steps without report of pain nor dyspnea NOT MET 9. Standby assist with home exercise program NOT MET 10. Good static and dynamic standing balance/tolerance NOT MET DISCHARGE RECOMMENDATIONS: Patient will benefit from fpc facility placement for continued skilled physical therapy services in order to progress mobility level, strength, and balance in preparation for a safe discharge to home. TREATMENT CODE/TIME: NC. Thank you very much for this referral. Alison Onofre PT, DPT, CLT [facility] [place], [place]
[2020-01-29] MEDS: Insulin Aspart 300 UNITS/3 ML PEN SC ×4 (12:44→21:32)
--- NOTE | 2020-01-29 14:27 | W.PM.PROGNOT ---
Date of Service Date of service: 01/29/20 Time of Service: 14:27 Assessment and Plan Assessment and plan (1) Perirectal abscess: Status: Acute Assessment and plan: Continue wound care and antibiotics Await repeat blood culture results. If WBC rises or fever develops can consider pelvic CT. Subjective Subjective Interval history since last seen: Still having drainage from incision Exam Narrative Exam Narrative: Perineal tissue is indurated but no abscess noted Wound repacked with 1/4 inch gauze Objective Last Vital Signs Temp 98.4 F 01/29/20 08:08 Pulse 77 01/29/20 08:08 Resp 17 01/29/20 08:08 BP 158/84 H 01/29/20 08:08 Pulse Ox 94 01/29/20 08:08 Laboratory Results - last 24 hr 01/29/20 01/29/20 06:35 06:35 WBC 12.43 H RBC 4.45 Hgb 12.2 Hct 37.7 MCV 84.7 MCH 27.4 MCHC 32.4 RDW 15.3 H Plt Count 214 MPV 10.7 Immature Gran % 0.0 Neutrophils % 75.0 Band Neutrophils % 5 Lymphocytes % 13.0 Monocytes % 5.0 Eosinophils % 0.0 Basophils % 0.0 Metamyelocytes % 1 Myelocytes % 1 Nucleated RBC % 0 Absolute Neutrophils 9.94 H Absolute Lymphocytes 1.62 Absolute Monocytes 0.62 Absolute Eosinophils 0.00 Absolute Basophils 0.00 RBC Morphology Normal Sodium 136 Potassium 3.6 Chloride 100 Carbon Dioxide 27.9 Anion Gap 8.1 BUN 21 H Creatinine 0.83 Estimated GFR/1.73 m2 >= 60.00 Glucose 93 D Calcium 9.8 Total Bilirubin 0.5 AST 39 H ALT 55 Alkaline Phosphatase 326 H Total Protein 6.0 L Albumin 2.0 L
--- NOTE | 2020-01-29 17:33 | CMPROGNOTE_ITS ---
- If Service Date Differs Date of service: 01/29/20 Time of Service: 17:34 Care Management Progress Note S/O: Andressa was lying in bed when CM met with her. Her sister was in the room with her visiting. CM discussed the plan with Andressa, which will be for Andressa to potentially have IV abx once her repeat blood cultures are returned. She will likely need 2-4 weeks of abx, more than once a day, which she may have to remain at [place] [id number] for. CM stated that once the abx course is determined, CM will meet with her to discuss discharge planning options. CM will continue to follow. A: Carmel is a 65 year old female admitted to [facility] on 01/23/20 with a fever. P: Anticipate Carmel will return home when medically cleared. She will be driven home by family in a private vehicle vs [facility]. She will resume her C[employer] moderate needs, and RN, PT. RADHA will continue to follow.
[2020-01-29 17:38] VITALS: BP 112/76; PULSE 111; RESP 22; TEMP 36.4; O2SAT 91
[2020-01-29 19:49] VITALS: BP 130/78; PULSE 80; RESP 21; TEMP 37.9; O2SAT 96
[2020-01-29 19:58] VITALS: TEMP 37.9
[2020-01-29] MEDS: Acetaminophen 325 MG TAB 650 MG PO (19:58)
[2020-01-29] MEDS: Budesonide/Formoterol 80/4.5 10.2 GM 120 PUFF INH IH (19:59)
[2020-01-29] MEDS: Insulin Glargine 300 UNITS/3 ML PEN 70 UNITS SC (20:00)
[2020-01-29 21:05] VITALS: TEMP 36.5
[2020-01-30] MEDS: CLINDAMYCIN 900 MG/50 ML BAG 50 MG IVPB ×3 (01:04→16:22)
[2020-01-30] MEDS: Normal Saline Flush 10 ML SYR IVP ×2 (05:27→09:53)
[2020-01-30] MEDS: Levothyroxine 50 MCG TAB PO (05:27)
[2020-01-30] MEDS: Budesonide/Formoterol 80/4.5 10.2 GM 120 PUFF INH IH ×2 (07:48→20:29)
[2020-01-30 07:52] VITALS: BP 153/79; PULSE 71; RESP 18; TEMP 36.7; O2SAT 96
[2020-01-30 08:11] LABS: HCT 37.9 % (36.0-46.0); MCH 27.5 pg (27.0-33.0); MCHC 31.7 % (32.0-36.0); MCV 86.9 fL (80-95); MPV 10.5 fL (8.0-11.0); Nucleated RBC 0 %; Platelet Count 236 10^3/uL (130-400); RBC 4.36 10^6/uL (3.93-5.22); RDW 15.2 % (11.7-14.6); RDW-SD 48.3 fL; WBC 12.36 10^3/uL (4.4-10.8)
[2020-01-30 08:27] LABS: ALT 64 U/L (14-59); AST 51 U/L (15-37); Albumin 1.9 g/dL (3.4-5.0); Alkaline Phosphatase 350 U/L (46-116); Anion Gap 7.4 mmol/L (3-11); BUN 22 mg/dL (7-18); Bilirubin, Total 0.4 mg/dL (0.2-1.0); CO2 28.6 mmol/L (21.0-32.0); Calcium 9.7 mg/dL (8.5-10.1); Chloride 103 mmol/L (98-107); Glucose 107 mg/dL (74-106); Potassium 3.9 mmol/L (3.5-5.1); Sodium 139 mmol/L (136-145)
[2020-01-30 08:53] LABS: Bands % 4
[2020-01-30 08:54] LABS: Absolute Basophil Count 0.25 10^3/uL (0.0-0.2); Absolute Eosinophil Count 0.12 10^3/uL (0.0-0.7); Absolute Lymphocyte Count 2.35 10^3/uL (1.2-3.4); Absolute Monocyte Count 0.37 10^3/uL (0.1-0.8); Atypical Lymphocytes % 1; Diff Comment Manual Differential; Metamyelocytes % 1; Myelocytes % 2; RBC Morphology Normal
[2020-01-30] MEDS: Simvastatin 40 MG TAB PO (09:28)
[2020-01-30] MEDS: Docusate Sodium 100 MG CAP PO ×2 (09:28→20:29)
[2020-01-30] MEDS: Pantoprazole 40 MG TABCR PO (09:29)
[2020-01-30] MEDS: Ferrous Gluconate 324 MG TAB PO ×2 (09:29→20:29)
[2020-01-30] MEDS: Metoprolol 25 MG TAB PO ×4 (09:29→20:29)
[2020-01-30] MEDS: busPIRone 15 MG TAB PO ×2 (09:29→20:29)
[2020-01-30] MEDS: Ezetimibe 10 MG TAB PO (09:30)
[2020-01-30] MEDS: Protein Nutritional Supplement 16 GM 1 OUNCE PACKET PO ×2 (09:31→20:29)
[2020-01-30] MEDS: DULoxetine 30 MG CAP 60 MG PO ×2 (09:53→20:27)
[2020-01-30] MEDS: Losartan 25 MG TAB PO (10:34)
[2020-01-30 11:54] VITALS: BP 137/70; PULSE 65; RESP 20; TEMP 36; O2SAT 93
[2020-01-30] MEDS: Insulin Aspart 300 UNITS/3 ML PEN SC ×3 (13:33→18:48)
--- NOTE | 2020-01-30 13:57 | PGE_ITS ---
Date of Service Date of service: 01/30/20 Time of Service: 13:58 Assessment and Plan Assessment and plan (1) Bacteremia due to Gram-positive bacteria: Status: Acute Assessment and plan: two wks of IV abx per Hsp. will collow catherine[pherally (2) Perirectal abscess: Status: Acute Assessment and plan: cont local wound care PT tight control BS probiotics no signs of thrush or C Diff (3) Acute kidney injury (nontraumatic): Status: Resolved (4) Diabetes type 2, uncontrolled: Status: Acute Qualifiers: Glycemic state: with hyperglycemia Qualified Code(s): E11.65 - Type 2 diabetes mellitus with hyperglycemia (5) Obesity (BMI 30-39.9): Status: Chronic (6) Mild pulmonary hypertension: Status: Acute (7) Acute on chronic systolic (congestive) heart failure: Status: Acute (8) Physical deconditioning: Status: Chronic (9) Iron deficiency anemia: Status: Acute Qualifiers: Iron deficiency anemia type: unspecified iron deficiency Qualified Code(s): D50.9 - Iron deficiency anemia, unspecified (10) Nicotine dependence: Status: Chronic Qualifiers: Nicotine product type: cigarettes Substance use status: uncomplicated Qualified Code(s): F17.210 - Nicotine dependence, cigarettes, uncomplicated (11) Spinocerebellar ataxia: Status: Chronic (12) Type II diabetes mellitus with neurological manifestations: Status: Chronic (13) Esophageal reflux disease: Status: Chronic (14) Coronary artery disease involving [place] coronary artery of [place] heart: Status: Chronic (15) Chronic kidney disease, stage III (moderate): Status: Chronic (16) COPD, mild: Status: Chronic (17) Cardiomyopathy: Status: Chronic Qualifiers: Cardiomyopathy type: ischemic Qualified Code(s): I25.5 - Ischemic cardiomyopathy (18) Hypothyroidism: Status: Chronic (19) Hypertension: Status: Chronic Subjective Subjective Interval history since last seen: Pt is not very motivated to participate in her care- won't even roll over in bed. Reviewed care w/ RN. formed stools/no diarrhea. wood is dressed sourrouding tissue is c/d/i. appears to be no redness/swelling. no bleeding. min drainage. Objective Last Vital Signs Temp 36 C L 01/30/20 11:54 Pulse 65 01/30/20 11:54 Resp 20 01/30/20 11:54 BP 137/70 01/30/20 11:54 Pulse Ox 93 01/30/20 11:54 Laboratory Results - last 24 hr 01/30/20 01/30/20 07:20 07:20 WBC 12.36 H RBC 4.36 Hgb 12.0 Hct 37.9 MCV 86.9 MCH 27.5 MCHC 31.7 L RDW 15.2 H Plt Count 236 MPV 10.5 Immature Gran % See Differential Neutrophils % 68.0 Band Neutrophils % 4 Lymphocytes % 18.0 Atypical Lymphs % 1 Monocytes % 3.0 Eosinophils % 1.0 Basophils % 2.0 Metamyelocytes % 1 Myelocytes % 2 Nucleated RBC % 0 Absolute Neutrophils 8.90 H Absolute Lymphocytes 2.35 Absolute Monocytes 0.37 Absolute Eosinophils 0.12 Absolute Basophils 0.25 H RBC Morphology Normal Sodium 139 Potassium 3.9 Chloride 103 Carbon Dioxide 28.6 Anion Gap 7.4 BUN 22 H Creatinine 0.80 Estimated GFR/1.73 m2 >= 60.00 Glucose 107 H Calcium 9.7 Total Bilirubin 0.4 AST 51 H ALT 64 H Alkaline Phosphatase 350 H Total Protein 6.0 L Albumin 1.9 L
[2020-01-30 15:40] VITALS: BP 125/66; PULSE 67; RESP 17; TEMP 36.5; O2SAT 90
--- NOTE | 2020-01-30 15:56 | W.PM.PROGNOT ---
Date of Service Date of service: 01/30/20 Time of Service: 15:56 Assessment and Plan Assessment and plan (1) Bacteremia due to Gram-positive bacteria: Status: Acute Assessment and plan: Gram Positive bacteremis; Wound cultures growing group B strep so this is the likely etiology Cont Pen G and clindamycin. (2) Perirectal abscess: Status: Acute Assessment and plan: WBC count 12.36; overall improving Gen surgery following Clindamycin and Pen G. (3) Type II diabetes mellitus with neurological manifestations: Status: Chronic Assessment and plan: Lantus coverage was increased yesterday; AC insulin adjusted. Glucose today so far: 119, 127 Cont to monitor. (4) Cardiomyopathy: Status: Chronic Assessment and plan: Ischemic cardiomyopathy; EF of 45%. Dr Gill's recommendations of 11/08 implemented. Cont ezetimibe, simvistatin, simvistatin, losartan, toresemide and ASA. Consider changing to Entresto at some point in the future. Qualifiers: Cardiomyopathy type: ischemic Qualified Code(s): I25.5 - Ischemic cardiomyopathy Subjective Subjective Patient reports: no new complaints Interval history since last seen: Pts pain, overall, has improved modestly. She is more amenable to sit up in a chair. Appetite OK. No N/V, F/C. No SOA, cough/sputum. Exam Const General: cooperative and no acute distress Resp Effort & Inspection: normal respiratory effort Auscultation: clear to auscultation bilaterally Cardio Rate: regular rate Rhythm: regular rhythm Heart Sounds: S1 normal and S2 normal GI Inspection: obesity Palpation: soft Auscultation: normal bowel sounds Extrem General: no clubbing, cyanosis or edema Objective Last Vital Signs Temp 36.5 C 01/30/20 15:40 Pulse 67 01/30/20 15:40 Resp 17 01/30/20 15:40 BP 125/66 01/30/20 15:40 Pulse Ox 90 L 01/30/20 15:40 Laboratory Results - last 24 hr 01/30/20 01/30/20 07:20 07:20 WBC 12.36 H RBC 4.36 Hgb 12.0 Hct 37.9 MCV 86.9 MCH 27.5 MCHC 31.7 L RDW 15.2 H Plt Count 236 MPV 10.5 Immature Gran % See Differential Neutrophils % 68.0 Band Neutrophils % 4 Lymphocytes % 18.0 Atypical Lymphs % 1 Monocytes % 3.0 Eosinophils % 1.0 Basophils % 2.0 Metamyelocytes % 1 Myelocytes % 2 Nucleated RBC % 0 Absolute Neutrophils 8.90 H Absolute Lymphocytes 2.35 Absolute Monocytes 0.37 Absolute Eosinophils 0.12 Absolute Basophils 0.25 H RBC Morphology Normal Sodium 139 Potassium 3.9 Chloride 103 Carbon Dioxide 28.6 Anion Gap 7.4 BUN 22 H Creatinine 0.80 Estimated GFR/1.73 m2 >= 60.00 Glucose 107 H Calcium 9.7 Total Bilirubin 0.4 AST 51 H ALT 64 H Alkaline Phosphatase 350 H Total Protein 6.0 L Albumin 1.9 L
--- NOTE | 2020-01-30 17:11 | CMPROGNOTE_ITS ---
- If Service Date Differs Date of service: 01/30/20 Time of Service: 17:11 Care Management Progress Note S/O: Carmel was lying in bed when CM met with her. She reported that she would like to go home as soon as possible. CM discussed her plan of care, which will be directed by her abx course. CM will make a plan with Andressa once her abx course is clear, which may include her remaining at [facility] on SWB1 for correction abx vs home with home infusion if possible. CM will continue to follow. A: Carmel is a 65 year old female admitted to [facility] on 01/23/20 with a fever. P: Anticipate Carmel will return home when medically cleared. She will be driven home by family in a private vehicle vs [facility]. She will resume her CFC moderate needs, and RN, PT. RADHA will continue to follow.
[2020-01-30] MEDS: Insulin Glargine 300 UNITS/3 ML PEN 70 UNITS SC (18:45)
[2020-01-30 23:06] VITALS: BP 125/71; PULSE 69; RESP 24; TEMP 36.4; O2SAT 93
[2020-01-31] MEDS: CLINDAMYCIN 900 MG/50 ML BAG 50 MG IVPB ×3 (00:31→15:27)
[2020-01-31] MEDS: Normal Saline Flush 10 ML SYR IVP ×2 (00:41→07:15)
[2020-01-31] MEDS: oxyCODONE 5 mg/Acetaminophen 325 mg TAB PO ×3 (01:05→17:50)
[2020-01-31] MEDS: Levothyroxine 50 MCG TAB PO (07:00)
[2020-01-31] MEDS: Losartan 25 MG TAB PO (08:12)
[2020-01-31] MEDS: DULoxetine 30 MG CAP 60 MG PO ×2 (08:12→20:50)
[2020-01-31] MEDS: Ezetimibe 10 MG TAB PO (08:12)
[2020-01-31] MEDS: Metoprolol 25 MG TAB PO ×4 (08:13→20:50)
[2020-01-31] MEDS: Torsemide 20 MG TAB PO (08:13)
[2020-01-31] MEDS: Simvastatin 40 MG TAB PO (08:13)
[2020-01-31] MEDS: Ferrous Gluconate 324 MG TAB PO ×2 (08:13→20:50)
[2020-01-31 08:14] VITALS: BP 153/82; PULSE 67; RESP 18; TEMP 36.1; O2SAT 92
[2020-01-31] MEDS: busPIRone 15 MG TAB PO ×2 (08:14→20:50)
[2020-01-31] MEDS: Docusate Sodium 100 MG CAP PO ×2 (08:14→20:50)
[2020-01-31] MEDS: Pantoprazole 40 MG TABCR PO (08:14)
[2020-01-31] MEDS: Insulin Glargine 300 UNITS/3 ML PEN 70 UNITS SC ×2 (08:16→20:51)
[2020-01-31] MEDS: Protein Nutritional Supplement 16 GM 1 OUNCE PACKET PO ×2 (08:21→20:51)
[2020-01-31] MEDS: Insulin Aspart 300 UNITS/3 ML PEN SC ×5 (08:23→17:24)
[2020-01-31] MEDS: Budesonide/Formoterol 80/4.5 10.2 GM 120 PUFF INH IH ×2 (08:54→20:51)
--- NOTE | 2020-01-31 13:13 | W.PM.PROGNOT ---
Date of Service Date of service: 01/31/20 Time of Service: 13:13 Assessment and Plan Assessment and plan (1) Bacteremia due to Gram-positive bacteria: Status: Acute Assessment and plan: Gram Positive bacteremis; Wound cultures growing group B strep so this is the likely etiology Cont Pen G and clindamycin. Planning 2 week course of IV antibiotics (2) Perirectal abscess: Status: Acute Assessment and plan: Cont as per Bacteremia treatment. (3) Diabetes type 2, uncontrolled: Status: Acute Assessment and plan: Glucose readings today: 130, 217, 204 On basal/bolus insulin with carbohydrate counting and additional SS insulin Cont to monitor. Qualifiers: Glycemic state: with hyperglycemia Qualified Code(s): E11.65 - Type 2 diabetes mellitus with hyperglycemia (4) Cardiomyopathy: Status: Chronic Assessment and plan: Ischemic cardiomyopathy; EF of 45%. Dr Gill's recommendations of 11/08 implemented. Cont ezetimibe, simvistatin, simvistatin, losartan, toresemide and ASA. Consider changing to Entresto at some point in the future. Qualifiers: Cardiomyopathy type: ischemic Qualified Code(s): I25.5 - Ischemic cardiomyopathy Subjective Subjective Interval history since last seen: Pt states that she would like to go home tomorrow. She could not answer how she would managing caring for herself, transferring since she currently is a 2 person max assist. She also hasn't worked with PT and they signed off. Her son lives with her but she is currently beyond a one person assist. She states her abscess site pain is improving. Appetite is good, no N/V/abd pain No F/C Exam Const General: cooperative and no acute distress Nutritional Appearance: obese Resp Effort & Inspection: normal respiratory effort Auscultation: clear to auscultation bilaterally Cardio Rate: regular rate Rhythm: regular rhythm Heart Sounds: S1 normal and S2 normal GI Inspection: obesity Palpation: soft Percussion: normal to percussion Auscultation: normal bowel sounds Extrem General: no clubbing, cyanosis or edema Objective Last Vital Signs Temp 36.1 C L 01/31/20 08:14 Pulse 67 01/31/20 08:14 Resp 18 01/31/20 08:14 BP 153/82 H 01/31/20 08:14 Pulse Ox 92 01/31/20 08:14
--- NOTE | 2020-01-31 15:26 | CMPROGNOTE_ITS ---
- If Service Date Differs Date of service: 01/31/20 Time of Service: 15:26 Care Management Progress Note S/O: Carmel was sleeping when CM attempted to meet with her. Per report, she will likely need 2 weeks of IV abx, which she will complete at [facility] on SWB1 status. CM will coordinate SWB admission once medically stable. CM will continue to follow. A: Carmel is a 65 year old female admitted to [facility] on 01/23/20 with a fever. P: Anticipate Carmel complete her IV abx course at [facility] on SWB1 status. Carmel will return home when medically cleared. She will be driven home by family in a private vehicle vs [facility]. She will resume her CFC moderate needs, and RN, PT. CM will continue to follow.
--- NOTE | 2020-01-31 15:26 | PDOC.CMPRO ---
- If Service Date Differs Date of service: 01/31/20 Time of Service: 15:26 Care Management Progress Note S/O: Carmel was sleeping when CM attempted to meet with her. Per report, she will likely need 2 weeks of IV abx, which she will complete at [facility] on SWB1 status. CM will coordinate SWB admission once medically stable. CM will continue to follow. A: Carmel is a 65 year old female admitted to [facility] on 01/23/20 with a fever. P: Anticipate Carmel complete her IV abx course at [facility] on SWB1 status. Carmel will return home when medically cleared. She will be driven home by family in a private vehicle vs [facility]. She will resume her CFC moderate needs, and RN, PT. CM will continue to follow.
[2020-01-31 16:00] VITALS: BP 132/69; PULSE 64; RESP 18; TEMP 36.5; O2SAT 93
[2020-01-31] MEDS: Nystatin POWDER 60 GM JAR TP (20:50)
[2020-02-01] MEDS: CLINDAMYCIN 900 MG/50 ML BAG 50 MG IVPB ×4 (00:29→23:44)
[2020-02-01] MEDS: oxyCODONE 5 mg/Acetaminophen 325 mg TAB PO ×3 (00:48→21:46)
[2020-02-01] MEDS: Levothyroxine 50 MCG TAB PO (06:08)
[2020-02-01 06:20] VITALS: BP 126/88; PULSE 62; RESP 18; TEMP 36.6; O2SAT 90
[2020-02-01 07:22] LABS: Abs Immature Grans 1.15 10^3/uL (0.0-0.06); HCT 37.7 % (36.0-46.0); HGB 12.2 g/dL (11.2-15.7); MCH 27.7 pg (27.0-33.0); MCHC 32.4 % (32.0-36.0); MCV 85.7 fL (80-95); MPV 10.1 fL (8.0-11.0); Nucleated RBC 0 %; Platelet Count 250 10^3/uL (130-400); RDW 15.3 % (11.7-14.6); WBC 13.88 10^3/uL (4.4-10.8)
[2020-02-01 07:32] LABS: Anion Gap 5.7 mmol/L (3-11); BUN 25 mg/dL (7-18); CO2 29.3 mmol/L (21.0-32.0); Calcium 9.7 mg/dL (8.5-10.1); Chloride 102 mmol/L (98-107); Estimated GFR 55.47 (mL/min/1.73m2); Glucose 103 mg/dL (74-106); Potassium 3.9 mmol/L (3.5-5.1); Sodium 137 mmol/L (136-145)
[2020-02-01 07:40] VITALS: BP 130/87; PULSE 69; RESP 17; TEMP 37; O2SAT 95
[2020-02-01 07:51] LABS: Absolute Eosinophil Count 0.42 10^3/uL (0.0-0.7); Absolute Lymphocyte Count 2.22 10^3/uL (1.2-3.4); Absolute Monocyte Count 0.83 10^3/uL (0.1-0.8); Absolute Neutrophil Count 9.99 10^3/uL (1.2-6.7); Bands % 2; Diff Comment Manual Differential; Metamyelocytes % 2; Myelocytes % 1
[2020-02-01 07:53] LABS: Polychromasia Present
[2020-02-01] MEDS: Budesonide/Formoterol 80/4.5 10.2 GM 120 PUFF INH IH ×2 (08:11→20:38)
--- NOTE | 2020-02-01 08:33 | W.PM.PROGNOT ---
Date of Service Date of service: 02/01/20 Time of Service: 08:33 Assessment and Plan Assessment and plan (1) Perirectal abscess: Status: Acute Assessment and plan: The site appears well drained. Continue to pack daily with 1/2 inch gauze - considering the amount of drainage this will probably need to be continued for a few more weeks. Anticipate she will be made swing bed status soon. Will check on wound later this week, please contact surgical team with concerns. Subjective Subjective Interval history since last seen: Perineal region sore with sitting. Exam Narrative Exam Narrative: I and D site has thin brownish drainage. Surrounding tissue softer with no acute cellulitis or abscess Objective Last Vital Signs Temp 98.6 F 02/01/20 07:40 Pulse 69 02/01/20 07:40 Resp 17 02/01/20 07:40 BP 130/87 02/01/20 07:40 Pulse Ox 95 02/01/20 07:40 Laboratory Results - last 24 hr 02/01/20 02/01/20 06:57 06:57 WBC 13.88 H RBC 4.40 Hgb 12.2 Hct 37.7 MCV 85.7 MCH 27.7 MCHC 32.4 RDW 15.3 H Plt Count 250 MPV 10.1 Immature Gran % 0.0 Neutrophils % 70.0 Band Neutrophils % 2 Lymphocytes % 16.0 Monocytes % 6.0 Eosinophils % 3.0 Basophils % 0.0 Metamyelocytes % 2 Myelocytes % 1 Nucleated RBC % 0 Absolute Neutrophils 9.99 H Absolute Lymphocytes 2.22 Absolute Monocytes 0.83 H Absolute Eosinophils 0.42 Absolute Basophils 0.00 RBC Morphology See below Polychromasia Present Sodium 137 Potassium 3.9 Chloride 102 Carbon Dioxide 29.3 Anion Gap 5.7 BUN 25 H Creatinine 1.00 Estimated GFR/1.73 m2 55.47 Glucose 103 Calcium 9.7
[2020-02-01] MEDS: Ferrous Gluconate 324 MG TAB PO ×2 (08:40→20:38)
[2020-02-01] MEDS: busPIRone 15 MG TAB PO ×2 (08:40→20:38)
[2020-02-01] MEDS: Metoprolol 25 MG TAB PO ×4 (08:40→20:38)
[2020-02-01] MEDS: DULoxetine 30 MG CAP 60 MG PO ×2 (08:40→20:38)
[2020-02-01] MEDS: Protein Nutritional Supplement 16 GM 1 OUNCE PACKET PO ×2 (08:40→20:51)
[2020-02-01] MEDS: Docusate Sodium 100 MG CAP PO ×2 (08:40→20:38)
[2020-02-01] MEDS: Pantoprazole 40 MG TABCR PO (08:40)
[2020-02-01] MEDS: Losartan 25 MG TAB PO (08:40)
[2020-02-01] MEDS: Ezetimibe 10 MG TAB PO (08:40)
[2020-02-01] MEDS: Torsemide 20 MG TAB PO (08:41)
[2020-02-01] MEDS: Simvastatin 40 MG TAB PO (08:41)
[2020-02-01] MEDS: Insulin Aspart 300 UNITS/3 ML PEN SC ×5 (08:41→21:45)
[2020-02-01] MEDS: Insulin Glargine 300 UNITS/3 ML PEN 70 UNITS SC ×2 (08:43→20:39)
[2020-02-01] MEDS: Normal Saline Flush 10 ML SYR IVP ×3 (08:44→23:44)
[2020-02-01] MEDS: Acetaminophen 325 MG TAB 650 MG PO (09:03)
[2020-02-01] MEDS: Nystatin POWDER 60 GM JAR TP ×2 (11:07→20:52)
--- NOTE | 2020-02-01 11:59 | W.PM.PROGNOT ---
Date of Service Date of service: 02/01/20 Time of Service: 12:00 Assessment and Plan Assessment and plan (1) Bacteremia due to Gram-positive bacteria: Status: Acute Assessment and plan: Group B strep WBC count has continued to increase On Clindamycin IV and PCN G. Afebrile D/W Gen. Surg. (2) Perirectal abscess: Status: Acute Assessment and plan: Cont dressing changes per surgery Discomfort when sitting in chair. Will provide a donut to sit on for relief. (3) Diabetes type 2, uncontrolled: Status: Acute Assessment and plan: Basal/bolus insulin with SS correction dosing Glucose 99 this AM and 213 at noon. Monitor Qualifiers: Glycemic state: with hyperglycemia Qualified Code(s): E11.65 - Type 2 diabetes mellitus with hyperglycemia (4) Cardiomyopathy: Status: Chronic Assessment and plan: Ischemic cardiomyopathy; EF of 45%. Dr Gill's recommendations of 11/08 implemented. Cont ezetimibe, simvistatin, losartan, toresemide and ASA. Consider changing to Entresto at some point in the future. Qualifiers: Cardiomyopathy type: ischemic Qualified Code(s): I25.5 - Ischemic cardiomyopathy (5) Coronary artery disease involving [place] coronary artery of [place] heart: Status: Chronic Assessment and plan: No anginal symptoms Cont BB and statin Subjective Subjective Patient reports: no new complaints and still having pain (Improving. Abcess debridement site with discomfort when sitting); denies nausea, shortness of breath and fever Exam Const General: cooperative and no acute distress Nutritional Appearance: obese Orientation: alert and oriented x3 Resp Effort & Inspection: normal respiratory effort Auscultation: clear to auscultation bilaterally Cardio Rate: regular rate Rhythm: regular rhythm Heart Sounds: S1 normal and S2 normal GI Inspection: obesity Palpation: soft Auscultation: normal bowel sounds Skin Other: L gluteal fold abscess I&D site with bandage in place Extrem General: no clubbing, cyanosis or edema Objective Last Vital Signs Temp 37 C 02/01/20 07:40 Pulse 69 02/01/20 07:40 Resp 17 02/01/20 07:40 BP 130/87 02/01/20 07:40 Pulse Ox 95 02/01/20 07:40 Laboratory Results - last 24 hr 02/01/20 02/01/20 06:57 06:57 WBC 13.88 H RBC 4.40 Hgb 12.2 Hct 37.7 MCV 85.7 MCH 27.7 MCHC 32.4 RDW 15.3 H Plt Count 250 MPV 10.1 Immature Gran % 0.0 Neutrophils % 70.0 Band Neutrophils % 2 Lymphocytes % 16.0 Monocytes % 6.0 Eosinophils % 3.0 Basophils % 0.0 Metamyelocytes % 2 Myelocytes % 1 Nucleated RBC % 0 Absolute Neutrophils 9.99 H Absolute Lymphocytes 2.22 Absolute Monocytes 0.83 H Absolute Eosinophils 0.42 Absolute Basophils 0.00 RBC Morphology See below Polychromasia Present Sodium 137 Potassium 3.9 Chloride 102 Carbon Dioxide 29.3 Anion Gap 5.7 BUN 25 H Creatinine 1.00 Estimated GFR/1.73 m2 55.47 Glucose 103 Calcium 9.7
[2020-02-01] MEDS: Heparin 5,000 UNITS/ML VIAL 5000 UNITS SC (14:59)
[2020-02-01 16:26] VITALS: BP 138/63; PULSE 80; RESP 16; TEMP 36.1; O2SAT 97
--- NOTE | 2020-02-01 16:40 | PT.INNT ---
Date of service: 02/01/20 PT Notes Visit Reasons: FEVER Lisa was discharged from PT services on 01/29/2020 due to lack of progress from successive refusals to participate in PT sessions last week. Per primary care sales representative's advice, patient will be converted to swing bed level today or tomorrow. Will await new referral from MD under swing bed level prior to PT re-evalaution. Thank you for the opportunity to participate in the care of this patient. Alison Onofre PT, DPT, CLT [facility] [place], [place]
--- NOTE | 2020-02-01 17:11 | CMPROGNOTE_ITS ---
- If Service Date Differs Date of service: 02/01/20 Time of Service: 17:11 Care Management Progress Note S/O: Carmel was lying in bed when CM met with her. She stated that she did not want to stay at [facility], and reported that she was upset that she could not see her son, Ethan. CM discussed the visitation policy with Carmel, Ethan and Steph (sister, designated visitor), and after much deliberation Carmel was comfortable remaining at [facility] to finish her abx course which ends on 02/09/20. Steph reported that she would be willing to visit when Carmel has her PT in order to help motivate Andressa to work with them. She will be re evaluated by PT once she enters [facility], likely tomorrow. CM offered Andressa the patient computer, which she was happy to use while here. CM went over the [facility] agreement with Andressa and answered any questions she had at the time. CM will continue to follow. A: Carmel is a 65 year old female admitted to [facility] on 01/23/20 with a fever. P: Anticipate Carmel complete her IV abx course at [facility] on SWB1 status. Carmel will return home when medically cleared. She will be driven home by family in a private vehicle vs [facility]. She will resume her [facility] moderate needs, and RN, PT. CM will continue to follow.
--- NOTE | 2020-02-01 17:11 | PDOC.CMPRO ---
- If Service Date Differs Date of service: 02/01/20 Time of Service: 17:11 Care Management Progress Note S/O: Carmel was lying in bed when CM met with her. She stated that she did not want to stay at [facility], and reported that she was upset that she could not see her son, Ethan. CM discussed the visitation policy with Carmel, Ethan and Steph (sister, designated visitor), and after much deliberation Carmel was comfortable remaining at [facility] to finish her abx course which ends on 02/09/20. Steph reported that she would be willing to visit when Carmel has her PT in order to help motivate Andressa to work with them. She will be re evaluated by PT once she enters [facility], likely tomorrow. CM offered Andressa the patient computer, which she was happy to use while here. CM went over the [facility] agreement with Andressa and answered any questions she had at the time. CM will continue to follow. A: Carmel is a 65 year old female admitted to [facility] on 01/23/20 with a fever. P: Anticipate Carmel complete her IV abx course at [facility] on SWB1 status. Carmel will return home when medically cleared. She will be driven home by family in a private vehicle vs [facility]. She will resume her [facility] moderate needs, and RN, PT. CM will continue to follow.
[2020-02-01 19:30] VITALS: BP 127/76; PULSE 70; RESP 18; TEMP 36.4; O2SAT 95
[2020-02-01] MEDS: Melatonin 3 MG TAB PO (21:46)
[2020-02-01 23:40] VITALS: BP 126/72; PULSE 68; RESP 17; TEMP 36; O2SAT 93
--- NOTE | 2020-02-02 | DI.US_ITS ---
EXAM: US UPPER EXTREMITY VENOUS RT CLINICAL HISTORY: R arm swelling. TECHNIQUE: Ultrasound examination of the right upper extremity venous system(s) is performed using g rayscale, color-flow, and spectral Doppler analysis. COMPARISON: No exams were available for comparison FINDINGS: The right internal jugular, axillary, subclavian, cephalic, basilic, brachial, radial, and ulnar vein s are patent without evidence of thrombosis. There is thrombus seen in the medial cubital vein. The thrombus measures 5 cm in length. IMPRESSION: No DVT. Superficial thrombosis in the medial cubital vein. Findings were discussed with Dr. Mosley on the date of the examination. DATA REPOSITORY:
[2020-02-02] MEDS: Heparin 5,000 UNITS/ML VIAL 5000 UNITS SC ×2 (01:41→14:31)
[2020-02-02] MEDS: Levothyroxine 50 MCG TAB PO (06:00)
[2020-02-02] MEDS: Normal Saline Flush 10 ML SYR IVP ×5 (06:01→23:52)
[2020-02-02 07:28] LABS: Abs Immature Grans 0.63 10^3/uL (0.0-0.06); HCT 38.6 % (36.0-46.0); HGB 12.3 g/dL (11.2-15.7); MCH 27.6 pg (27.0-33.0); MCHC 31.9 % (32.0-36.0); MCV 86.5 fL (80-95); Nucleated RBC 0 %; RBC 4.46 10^6/uL (3.93-5.22); RDW 15.3 % (11.7-14.6); RDW-SD 48.1 fL; WBC 14.47 10^3/uL (4.4-10.8)
[2020-02-02 08:05] LABS: Absolute Eosinophil Count 0.14 10^3/uL (0.0-0.7); Absolute Lymphocyte Count 1.16 10^3/uL (1.2-3.4); Absolute Monocyte Count 0.58 10^3/uL (0.1-0.8); Absolute Neutrophil Count 12.01 10^3/uL (1.2-6.7); Bands % 3; Diff Comment Manual Differential; Myelocytes % 4
[2020-02-02 08:06] LABS: Platelet Count 246 10^3/uL (130-400); Polychromasia Present
[2020-02-02 08:13] VITALS: O2SAT 94
[2020-02-02] MEDS: Budesonide/Formoterol 80/4.5 10.2 GM 120 PUFF INH IH ×2 (08:13→20:02)
[2020-02-02 08:19] VITALS: BP 138/82; PULSE 69; RESP 18; TEMP 36.2; O2SAT 93
--- NOTE | 2020-02-02 08:59 | PDOC.CMPRO ---
- If Service Date Differs Date of service: 02/02/20 Time of Service: 08:59 Care Management Progress Note S/O: Carmel was laying in bed when CM met with her. Her sister Steph was present at the time and was describing the difficulties she had when she arrived to visit Lisa. There was remaining confusion about who the designated support person was but it has all been clarified. Lisa's WBC has again increased and Dr. Watkins came and examined the wound and removed additional purulent material. Lisa will not transition to SB-1 at this time. A: Carmel is a 65 year old female admitted to [facility] on 01/23/20 with a fever. P: Anticipate Carmel complete her IV abx course at [facility] on SWB1 status. Carmel will return home when medically cleared. She will be driven home by family in a private vehicle vs [facility]. She will resume her [facility] moderate needs, and RN, PT. RADHA will continue to follow.
[2020-02-02] MEDS: Protein Nutritional Supplement 16 GM 1 OUNCE PACKET PO ×2 (09:05→20:01)
[2020-02-02] MEDS: CLINDAMYCIN 900 MG/50 ML BAG 50 MG IVPB ×3 (09:05→23:50)
[2020-02-02] MEDS: Insulin Aspart 300 UNITS/3 ML PEN SC ×5 (09:06→21:15)
[2020-02-02] MEDS: Insulin Glargine 300 UNITS/3 ML PEN 70 UNITS SC ×2 (09:07→20:01)
[2020-02-02] MEDS: Torsemide 20 MG TAB PO (09:08)
[2020-02-02] MEDS: Metoprolol 25 MG TAB PO ×4 (09:08→20:01)
[2020-02-02] MEDS: Pantoprazole 40 MG TABCR PO (09:08)
[2020-02-02] MEDS: Ezetimibe 10 MG TAB PO (09:08)
[2020-02-02] MEDS: DULoxetine 30 MG CAP 60 MG PO ×2 (09:08→20:00)
[2020-02-02] MEDS: Ferrous Gluconate 324 MG TAB PO ×2 (09:08→20:01)
[2020-02-02] MEDS: Simvastatin 40 MG TAB PO (09:08)
[2020-02-02] MEDS: busPIRone 15 MG TAB PO ×2 (09:08→20:01)
[2020-02-02] MEDS: Docusate Sodium 100 MG CAP PO ×2 (09:08→20:01)
[2020-02-02] MEDS: Nystatin POWDER 60 GM JAR TP ×2 (09:09→20:24)
[2020-02-02] MEDS: Losartan 25 MG TAB PO (09:09)
[2020-02-02] MEDS: oxyCODONE 5 mg/Acetaminophen 325 mg TAB PO ×3 (10:53→21:10)
--- NOTE | 2020-02-02 12:21 | W.PM.PROGNOT ---
Date of Service Date of service: 02/02/20 Time of Service: 10:21 Assessment and Plan Assessment and plan (1) Bacteremia due to Gram-positive bacteria: Status: Acute Assessment and plan: + group B strep bacteremia On PCN G Also on Clindamycin for abscess. WBC count conts to increase. (2) Perirectal abscess: Status: Acute Assessment and plan: WBC count increasing See above for antibiotics D/W general surgery regarding further care. Possible re-accumulation of an abscess. (3) Diabetes type 2, uncontrolled: Status: Acute Assessment and plan: FSBS today: 125, 188 Cont basal/bolus insulin. Qualifiers: Glycemic state: with hyperglycemia Qualified Code(s): E11.65 - Type 2 diabetes mellitus with hyperglycemia Subjective Subjective Interval history since last seen: Feels poorly today; c/o feeling chills, facial sweating. Ate breakfast w/o N/V/abd pain. No SOA, dysuria, diarrhea. Exam Const General: cooperative and ill appearing Nutritional Appearance: obese Orientation: alert and oriented x3 Resp Effort & Inspection: normal respiratory effort Auscultation: clear to auscultation bilaterally Cardio Rate: regular rate Rhythm: regular rhythm Heart Sounds: S1 normal and S2 normal GI Inspection: obesity Palpation: soft Auscultation: normal bowel sounds Extrem General: no clubbing, cyanosis or edema Objective Last Vital Signs Temp 36.2 C L 02/02/20 08:19 Pulse 69 02/02/20 08:19 Resp 18 02/02/20 08:19 BP 138/82 02/02/20 08:19 Pulse Ox 93 02/02/20 08:19 Laboratory Results - last 24 hr 02/02/20 07:15 WBC 14.47 H RBC 4.46 Hgb 12.3 Hct 38.6 MCV 86.5 MCH 27.6 MCHC 31.9 L RDW 15.3 H Plt Count 246 MPV 10.0 Immature Gran % See Differential Neutrophils % 80.0 Band Neutrophils % 3 Lymphocytes % 8.0 Monocytes % 4.0 Eosinophils % 1.0 Basophils % 0.0 Myelocytes % 4 Nucleated RBC % 0 Absolute Neutrophils 12.01 H Absolute Lymphocytes 1.16 L Absolute Monocytes 0.58 Absolute Eosinophils 0.14 Absolute Basophils 0.00 RBC Morphology See below Polychromasia Present
--- NOTE | 2020-02-02 14:46 | NUR.NOTE ---
Nursing Note: 02/02/2020 14:46 Patient has refused to get out of bed today. Nursing staff encouraged patient to get up on standing scale, get up for all meals and snacks, get up to walk, and get up to transfer to stretcher for ultrasound, patient refused all. Patient has been educated on the risks of staying in bed, including DVTs and pneumonia, and verbalizes understanding and continues to refuse getting out of bed. When educated on risks, patient reported at least I'm in the right place for that referring to treatment for DVTs or pneumonia. Nurse will continue to encourage ambulation, repositioning, and getting up to reclining chair in room either by lift or nurse assist.
--- NOTE | 2020-02-02 15:13 | PGE_ITS ---
Date of Service Date of service: 02/02/20 Time of Service: 13:30 Assessment and Plan Assessment and plan (1) Perirectal abscess: Status: Acute Assessment and plan: Worsening Leukocytosis Wound irrigated and there was a small amount of purulent discharge. Wound re- dressed. Wound had not yet been changed today. Case discussed with Dr. Mosley Recommend BID wound irrigation and dressing change If WBC count continues to increase then recommend repeat CT scan of the pelvis to rule out another abscess. Subjective Subjective Interval history since last seen: Asked to see patient today by Dr. Mosley. Mrs. Carvalho was not feeling well this morning and her WBC count has gone up in the last 2 days. No fevers. Patient reports right leg pain and some rectal pain. She also wants to go outside to smoke. Exam GI Other: Dressing removed. There is a bloody drainage on the dressing. The wound was irrigated and there was 1-2 cc of purulent discharge. The wound was probed with a sterile Q-tip. NO pockets were palpated. Rectal exam revealed no palpable abscess pockets. The wound was irrigated a second time with sterile saline. A packing was gently placed into the wound and covered with mepilex border dressing. Objective Last Vital Signs Temp 97.2 F L 02/02/20 08:19 Pulse 69 02/02/20 08:19 Resp 18 02/02/20 08:19 BP 138/82 02/02/20 08:19 Pulse Ox 93 02/02/20 08:19 Laboratory Results - last 24 hr 02/02/20 07:15 WBC 14.47 H RBC 4.46 Hgb 12.3 Hct 38.6 MCV 86.5 MCH 27.6 MCHC 31.9 L RDW 15.3 H Plt Count 246 MPV 10.0 Immature Gran % See Differential Neutrophils % 80.0 Band Neutrophils % 3 Lymphocytes % 8.0 Monocytes % 4.0 Eosinophils % 1.0 Basophils % 0.0 Myelocytes % 4 Nucleated RBC % 0 Absolute Neutrophils 12.01 H Absolute Lymphocytes 1.16 L Absolute Monocytes 0.58 Absolute Eosinophils 0.14 Absolute Basophils 0.00 RBC Morphology See below Polychromasia Present
[2020-02-02 15:45] VITALS: BP 139/66; PULSE 66; RESP 17; TEMP 36.7; O2SAT 90
[2020-02-02 22:00] VITALS: PULSE 67; O2SAT 97
[2020-02-03] MEDS: Heparin 5,000 UNITS/ML VIAL 5000 UNITS SC ×2 (01:49→14:19)
[2020-02-03 03:55] VITALS: BP 122/69; PULSE 64; RESP 17; TEMP 36.2; O2SAT 95
[2020-02-03] MEDS: Levothyroxine 50 MCG TAB PO (05:18)
[2020-02-03] MEDS: Normal Saline Flush 10 ML SYR IVP ×2 (05:19→21:26)
[2020-02-03 07:18] LABS: Abs Immature Grans 0.45 10^3/uL (0.0-0.06); Absolute Basophil Count 0.07 10^3/uL (0.0-0.2); Absolute Monocyte Count 0.69 10^3/uL (0.1-0.8); Basophils % 0.5; Eosinophils % 1.2; HCT 38.3 % (36.0-46.0); HGB 12.5 g/dL (11.2-15.7); Immature Grans % 3.1; Lymphocytes % 10.9; MCH 28.1 pg (27.0-33.0); MCHC 32.6 % (32.0-36.0); MCV 86.1 fL (80-95); MPV 10.2 fL (8.0-11.0); Monocytes % 4.7; Neutrophils % 79.6; Nucleated RBC 0 %; Platelet Count 269 10^3/uL (130-400); RBC 4.45 10^6/uL (3.93-5.22); RDW 15.5 % (11.7-14.6); RDW-SD 48.3 fL
[2020-02-03 07:19] LABS: Absolute Eosinophil Count 0.18 10^3/uL (0.0-0.7)
[2020-02-03 07:21] VITALS: BP 106/66; PULSE 71; RESP 20; TEMP 36.4; O2SAT 90
[2020-02-03 07:29] LABS: Anion Gap 5.9 mmol/L (3-11); BUN 29 mg/dL (7-18); CO2 29.1 mmol/L (21.0-32.0); CREATININE 1.04 mg/dL (0.55-1.02); Calcium 9.9 mg/dL (8.5-10.1); Chloride 102 mmol/L (98-107); Estimated GFR 53.02 (mL/min/1.73m2); Glucose 76 mg/dL (74-106); Potassium 4.3 mmol/L (3.5-5.1); Sodium 137 mmol/L (136-145)
[2020-02-03] MEDS: Budesonide/Formoterol 80/4.5 10.2 GM 120 PUFF INH IH ×2 (07:47→19:59)
[2020-02-03 08:02] LABS: Campylobacter PCR Negative (Negative); Salmonella PCR Negative (Negative); Shiga Toxin PCR Negative (Negative); Shigella/Enteroinvasive Ecoli Negative (Negative)
[2020-02-03] MEDS: Nicotine 21 MG/24 HR PATCH TD (08:21)
[2020-02-03] MEDS: Protein Nutritional Supplement 16 GM 1 OUNCE PACKET PO ×2 (08:22→19:59)
[2020-02-03] MEDS: Insulin Aspart 300 UNITS/3 ML PEN SC ×5 (08:22→21:40)
[2020-02-03] MEDS: CLINDAMYCIN 900 MG/50 ML BAG 50 MG IVPB ×3 (08:22→23:31)
[2020-02-03] MEDS: Ezetimibe 10 MG TAB PO (08:23)
[2020-02-03] MEDS: Pantoprazole 40 MG TABCR PO (08:23)
[2020-02-03] MEDS: DULoxetine 30 MG CAP 60 MG PO ×2 (08:23→20:00)
[2020-02-03] MEDS: Torsemide 20 MG TAB PO (08:24)
[2020-02-03] MEDS: Docusate Sodium 100 MG CAP PO ×2 (08:24→20:01)
[2020-02-03] MEDS: Metoprolol 25 MG TAB PO ×4 (08:24→20:01)
[2020-02-03] MEDS: Losartan 25 MG TAB PO (08:24)
[2020-02-03] MEDS: Simvastatin 40 MG TAB PO (08:24)
[2020-02-03] MEDS: busPIRone 15 MG TAB PO ×2 (08:24→20:01)
[2020-02-03] MEDS: Ferrous Gluconate 324 MG TAB PO ×2 (08:25→20:01)
[2020-02-03] MEDS: Insulin Glargine 300 UNITS/3 ML PEN 70 UNITS SC ×2 (08:25→20:28)
[2020-02-03] MEDS: Nystatin POWDER 60 GM JAR TP ×2 (08:25→19:59)
--- NOTE | 2020-02-03 11:21 | PDOC.CMPRO ---
- If Service Date Differs Date of service: 02/03/20 Time of Service: 11:21 Care Management Progress Note S/O: Andressa was lying in bed when CM met with her today. She reported that she wasn't feeling well, and had difficulty keeping her eyes open through the conversation. Per report, Andressa's WBC is still high. She is not ready to transition to SWB at this time. CM will continue to follow. A: Carmel is a 65 year old female admitted to [facility] on 01/23/20 with a fever. P: Anticipate Carmel complete her IV abx course at [facility] on SWB1 status. Carmel will return home when medically cleared. She will be driven home by family in a private vehicle vs [facility]. She will resume her C moderate needs, and RN, PT. CM will continue to follow.
--- NOTE | 2020-02-03 14:50 | W.PM.PROGNOT ---
Date of Service Date of service: 02/03/20 Time of Service: 12:50 Assessment and Plan Assessment and plan (1) Superficial venous thrombosis of arm: Status: Acute Assessment and plan: R medial cubital vein Elevate the R arm. Aqua K pack (2) Bacteremia due to Gram-positive bacteria: Status: Acute Assessment and plan: Cont PCN G (3) Abscess, gluteal, left: Status: Acute Assessment and plan: WBC count remains elevated but has appeared to plateau US of buttocks did not reveal an abscess If WBC count does not start to trend downward tomorrow will obtain CT to evaluate. (4) Diabetes type 2, uncontrolled: Status: Acute Assessment and plan: Glucose readings today: 93, 121. Monitor. On basal/bolus insulin Qualifiers: Glycemic state: with hyperglycemia Qualified Code(s): E11.65 - Type 2 diabetes mellitus with hyperglycemia (5) Physical deconditioning: Status: Chronic Assessment and plan: Has not been working consistently with PT. Once medically stable will discuss rehab vs swingbed. Subjective Subjective Patient reports: no new complaints, still having pain, shortness of breath and afebrile Interval history since last seen: Pain in buttock when sitting. Still c/o feeling warm, sweaty in face intermittently Appetite is good. Exam Const General: cooperative and no acute distress Nutritional Appearance: obese Orientation: alert and oriented x3 Resp Effort & Inspection: normal respiratory effort Auscultation: clear to auscultation bilaterally Cardio Rate: regular rate Rhythm: regular rhythm Heart Sounds: S1 normal and S2 normal Extrem General: no clubbing, cyanosis or edema Right upper extremity: edema (Mild diffuse swelling mostly in forearm.) Objective Last Vital Signs Temp 36.4 C L 02/03/20 07:21 Pulse 71 02/03/20 07:21 Resp 20 02/03/20 07:21 BP 106/66 02/03/20 07:21 Pulse Ox 90 L 02/03/20 07:21 Laboratory Results - last 24 hr 01/25/20 02/03/20 02/03/20 13:05 06:57 06:57 WBC 14.70 H RBC 4.45 Hgb 12.5 Hct 38.3 MCV 86.1 MCH 28.1 MCHC 32.6 RDW 15.5 H Plt Count 269 MPV 10.2 Immature Gran % 3.1 Neutrophils % 79.6 Lymphocytes % 10.9 Monocytes % 4.7 Eosinophils % 1.2 Basophils % 0.5 Nucleated RBC % 0 Absolute Neutrophils 11.70 H Absolute Lymphocytes 1.60 Absolute Monocytes 0.69 Absolute Eosinophils 0.18 Absolute Basophils 0.07 Sodium 137 Potassium 4.3 Chloride 102 Carbon Dioxide 29.1 Anion Gap 5.9 BUN 29 H Creatinine 1.04 H Estimated GFR/1.73 m2 53.02 Glucose 76 Calcium 9.9 Stool Campylobacter PCR Negative Stool Salmonella PCR Negative Stool Shigella PCR Negative Shiga Toxin (PCR) Negative
--- NOTE | 2020-02-03 15:15 | W.PM.PROGNOT ---
Date of Service Date of service: 02/03/20 Time of Service: 12:30 Assessment and Plan Assessment and plan (1) Perirectal abscess: Status: Acute Assessment and plan: Leukocytosis stable. No fevers Continue with BID dressing changes If no improvement in WBC count then recommend pelvic CT scan Subjective Subjective Interval history since last seen: Mrs Carvalho is in bed and finished eating her lunch. She states she is feeling maybe a little better then yesterday. She doesn't complain of increased pain. NO fevers overnight. Exam Const General: cooperative, comfortable and no acute distress Orientation: alert and oriented x3 HENMT Head: normocephalic and atraumatic Resp Effort & Inspection: normal respiratory effort Objective Last Vital Signs Temp 97.5 F L 02/03/20 07:21 Pulse 71 02/03/20 07:21 Resp 20 02/03/20 07:21 BP 106/66 02/03/20 07:21 Pulse Ox 90 L 02/03/20 07:21 Laboratory Results - last 24 hr 01/25/20 02/03/20 02/03/20 13:05 06:57 06:57 WBC 14.70 H RBC 4.45 Hgb 12.5 Hct 38.3 MCV 86.1 MCH 28.1 MCHC 32.6 RDW 15.5 H Plt Count 269 MPV 10.2 Immature Gran % 3.1 Neutrophils % 79.6 Lymphocytes % 10.9 Monocytes % 4.7 Eosinophils % 1.2 Basophils % 0.5 Nucleated RBC % 0 Absolute Neutrophils 11.70 H Absolute Lymphocytes 1.60 Absolute Monocytes 0.69 Absolute Eosinophils 0.18 Absolute Basophils 0.07 Sodium 137 Potassium 4.3 Chloride 102 Carbon Dioxide 29.1 Anion Gap 5.9 BUN 29 H Creatinine 1.04 H Estimated GFR/1.73 m2 53.02 Glucose 76 Calcium 9.9 Stool Campylobacter PCR Negative Stool Salmonella PCR Negative Stool Shigella PCR Negative Shiga Toxin (PCR) Negative
[2020-02-03] MEDS: Acetaminophen 325 MG TAB 650 MG PO (15:30)
[2020-02-03 15:47] VITALS: BP 118/76; PULSE 98; RESP 20; TEMP 36.6; O2SAT 95
[2020-02-03] MEDS: oxyCODONE 5 mg/Acetaminophen 325 mg TAB PO (16:13)
[2020-02-03 23:23] VITALS: BP 116/74; PULSE 95; RESP 20; TEMP 37; O2SAT 96
--- NOTE | 2020-02-04 | DI.RAD_ITS ---
EXAM: XR PORTABLE CHEST AP CLINICAL HISTORY: Chest congestion. Leukocytosis TECHNIQUE: 2D digital imaging was performed. COMPARISON: CR XR PORTABLE CHEST AP from 09/02/2019 FINDINGS: MEDIASTINUM: Normal. HEART: Normal. PULMONARY VASCULATURE: Normal. LUNGS: Clear. PLEURAL SPACE: No pleural effusion or pneumothorax. BONE:Within normal limits for the patient's age. OTHER FINDINGS:Prior right shoulder surgery. IMPRESSION: No acute pulmonary findings. DATA REPOSITORY: RADIATION DOSE DELIVERED:
[2020-02-04] MEDS: Heparin 5,000 UNITS/ML VIAL 5000 UNITS SC ×2 (01:29→13:56)
[2020-02-04] MEDS: Acetaminophen 325 MG TAB 650 MG PO (04:09)
[2020-02-04] MEDS: Levothyroxine 50 MCG TAB PO (05:10)
[2020-02-04] MEDS: Normal Saline Flush 10 ML SYR IVP ×2 (05:11→13:57)
[2020-02-04 06:48] LABS: Abs Immature Grans 0.37 10^3/uL (0.0-0.06); Absolute Basophil Count 0.08 10^3/uL (0.0-0.2); Absolute Lymphocyte Count 1.77 10^3/uL (1.2-3.4); Absolute Monocyte Count 0.74 10^3/uL (0.1-0.8); Basophils % 0.6; Eosinophils % 1.5; HCT 37.4 % (36.0-46.0); HGB 11.9 g/dL (11.2-15.7); Immature Grans % 2.8; Lymphocytes % 13.4; MCH 27.8 pg (27.0-33.0); MCHC 31.8 % (32.0-36.0); MCV 87.4 fL (80-95); MPV 10.6 fL (8.0-11.0); Monocytes % 5.6; Neutrophils % 76.1; Nucleated RBC 0 %; Platelet Count 274 10^3/uL (130-400); RBC 4.28 10^6/uL (3.93-5.22); RDW 15.6 % (11.7-14.6); RDW-SD 49.3 fL; WBC 13.19 10^3/uL (4.4-10.8)
[2020-02-04 06:59] LABS: Absolute Neutrophil Count 10.04 10^3/uL (1.2-6.7)
[2020-02-04 07:41] VITALS: BP 123/73; PULSE 71; RESP 16; TEMP 37.5; O2SAT 94
[2020-02-04] MEDS: Budesonide/Formoterol 80/4.5 10.2 GM 120 PUFF INH IH ×2 (08:14→19:40)
[2020-02-04] MEDS: Ferrous Gluconate 324 MG TAB PO ×2 (08:54→19:41)
[2020-02-04] MEDS: Docusate Sodium 100 MG CAP PO ×2 (08:55→19:41)
[2020-02-04] MEDS: DULoxetine 30 MG CAP 60 MG PO ×2 (08:55→19:40)
[2020-02-04] MEDS: Ezetimibe 10 MG TAB PO (08:55)
[2020-02-04] MEDS: Losartan 25 MG TAB PO (08:56)
[2020-02-04] MEDS: Metoprolol 25 MG TAB PO ×2 (08:56→12:02)
[2020-02-04] MEDS: busPIRone 15 MG TAB PO ×2 (08:56→19:40)
[2020-02-04] MEDS: Pantoprazole 40 MG TABCR PO (08:56)
[2020-02-04] MEDS: Simvastatin 40 MG TAB PO (08:57)
[2020-02-04] MEDS: Torsemide 20 MG TAB PO (08:57)
[2020-02-04] MEDS: Protein Nutritional Supplement 16 GM 1 OUNCE PACKET PO ×2 (08:57→19:39)
[2020-02-04] MEDS: Nystatin POWDER 60 GM JAR TP ×2 (08:58→19:50)
[2020-02-04] MEDS: Insulin Aspart 300 UNITS/3 ML PEN SC ×7 (09:05→22:23)
[2020-02-04] MEDS: Nicotine 21 MG/24 HR PATCH TD (09:07)
[2020-02-04] MEDS: Insulin Glargine 300 UNITS/3 ML PEN 70 UNITS SC ×2 (09:37→19:39)
[2020-02-04] MEDS: CLINDAMYCIN 900 MG/50 ML BAG 50 MG IVPB ×2 (09:38→16:34)
--- NOTE | 2020-02-04 10:07 | NUR.NOTE ---
Patient removed nicotine patch from right and refused reapplication.
--- NOTE | 2020-02-04 10:32 | W.NUTRFU ---
Date of service: 02/04/20 Time of Service: 10:32 Nutritional Follow up NOTE: Carmel continues on Diabetic Diet with adequate intake to meet 100% nutrient needs for optimal wound healing. Receiving liquid protein 1 oz BID providing additional 30 g protein. Blood sugars well controlled. Will continue to follow/monitor. Time Spent in Nutritional Counseling and Treatment: 0 time spent face to face
--- NOTE | 2020-02-04 11:34 | W.PM.PROGNOT ---
Date of Service Date of service: 02/04/20 Time of Service: 11:34 Assessment and Plan Assessment and plan (1) Bacteremia due to Gram-positive bacteria: Status: Acute (2) Perirectal abscess: Status: Acute Assessment and plan: surrounding tissue is c/d/i. no redness or drainage. bloody drainage w/ irrigation. Abx are completed on 02/08 pt continues to threaten to leave AMA. cont BID irrigation and packing pt continue to refuse PT and get OOB. pt has not had fever/chills. She is only on prn Tylenol WBC equivocal Subjective Subjective Interval history since last seen: Pt is up in a chair today- she was a maximal 2 person assist. Pt refuses to do PT. She has not walked in a week. She refuses to even roll over in bed. She is not having any diarrhea or thrush. She continues to be noncompliant in her cares and have behavioral issues. Objective Last Vital Signs Temp 37.5 C 02/04/20 07:41 Pulse 71 02/04/20 07:41 Resp 16 02/04/20 07:41 BP 123/73 02/04/20 07:41 Pulse Ox 94 02/04/20 07:41 Laboratory Results - last 24 hr 02/04/20 06:00 WBC 13.19 H RBC 4.28 Hgb 11.9 Hct 37.4 MCV 87.4 MCH 27.8 MCHC 31.8 L RDW 15.6 H Plt Count 274 MPV 10.6 Immature Gran % 2.8 Neutrophils % 76.1 Lymphocytes % 13.4 Monocytes % 5.6 Eosinophils % 1.5 Basophils % 0.6 Nucleated RBC % 0 Absolute Neutrophils 10.04 H Absolute Lymphocytes 1.77 Absolute Monocytes 0.74 Absolute Eosinophils 0.20 Absolute Basophils 0.08
[2020-02-04 12:03] VITALS: BP 118/68; PULSE 78; RESP 18; O2SAT 92
[2020-02-04 12:28] LABS: C-Reactive Protein 4.54 mg/dL (0.0-0.3)
--- NOTE | 2020-02-04 12:53 | W.PM.PROGNOT ---
Objective Last Vital Signs Temp 37.5 C 02/04/20 07:41 Pulse 78 02/04/20 12:03 Resp 18 02/04/20 12:03 BP 118/68 02/04/20 12:03 Pulse Ox 92 02/04/20 12:03 Laboratory Results - last 24 hr 02/04/20 02/04/20 06:00 06:00 WBC 13.19 H RBC 4.28 Hgb 11.9 Hct 37.4 MCV 87.4 MCH 27.8 MCHC 31.8 L RDW 15.6 H Plt Count 274 MPV 10.6 Immature Gran % 2.8 Neutrophils % 76.1 Lymphocytes % 13.4 Monocytes % 5.6 Eosinophils % 1.5 Basophils % 0.6 Nucleated RBC % 0 Absolute Neutrophils 10.04 H Absolute Lymphocytes 1.77 Absolute Monocytes 0.74 Absolute Eosinophils 0.20 Absolute Basophils 0.08 C-Reactive Protein 4.54 H
--- NOTE | 2020-02-04 13:18 | W.PM.PROGNOT ---
Date of Service Date of service: 02/04/20 Time of Service: 13:19 Assessment and Plan Assessment and plan (1) Superficial venous thrombosis of arm: Status: Acute Assessment and plan: Improved. Cont elevation prn and Aqua K pad prn Qualifiers: Laterality: right Qualified Code(s): I82.611 - Acute embolism and thrombosis of superficial veins of right upper extremity (2) Bacteremia due to Gram-positive bacteria: Status: Acute Assessment and plan: Antibiotics initiated upon admission for sepsis on 01/23/2020 Has been on appropriate antibiotics that would cover group B strep 14 days coverage planned; last date of antibiotic for bacteremia 02/06/2020. (3) Abscess, gluteal, left: Status: Acute Assessment and plan: On clindamycin and PCN G WBC count has decreased marginally from 14.7 to 13.1. Monitor. (4) Diabetes type 2, uncontrolled: Status: Acute Assessment and plan: Cont basal/bolus insulin with monitoring. Qualifiers: Glycemic state: with hyperglycemia Qualified Code(s): E11.65 - Type 2 diabetes mellitus with hyperglycemia Subjective Subjective Patient reports: no new complaints, tolerating a regular diet and afebrile; denies diarrhea, nausea, vomiting and shortness of breath Interval history since last seen: Sat in chair for a longer period of time this AM with less L buttocks pain. Has some congestion. Exam Const General: cooperative and no acute distress Nutritional Appearance: obese Orientation: oriented to person and oriented to place Resp Effort & Inspection: normal respiratory effort Auscultation: clear to auscultation bilaterally and diminished lung sounds Cardio Rate: regular rate Rhythm: regular rhythm Heart Sounds: S1 normal and S2 normal GI Inspection: obesity Palpation: soft and nontender Auscultation: normal bowel sounds Extrem General: no clubbing, cyanosis or edema Objective Last Vital Signs Temp 37.5 C 02/04/20 07:41 Pulse 78 02/04/20 12:03 Resp 18 02/04/20 12:03 BP 118/68 02/04/20 12:03 Pulse Ox 92 02/04/20 12:03 Laboratory Results - last 24 hr 02/04/20 02/04/20 06:00 06:00 WBC 13.19 H RBC 4.28 Hgb 11.9 Hct 37.4 MCV 87.4 MCH 27.8 MCHC 31.8 L RDW 15.6 H Plt Count 274 MPV 10.6 Immature Gran % 2.8 Neutrophils % 76.1 Lymphocytes % 13.4 Monocytes % 5.6 Eosinophils % 1.5 Basophils % 0.6 Nucleated RBC % 0 Absolute Neutrophils 10.04 H Absolute Lymphocytes 1.77 Absolute Monocytes 0.74 Absolute Eosinophils 0.20 Absolute Basophils 0.08 C-Reactive Protein 4.54 H
[2020-02-04] MEDS: oxyCODONE 5 mg/Acetaminophen 325 mg TAB PO ×2 (13:56→23:06)
--- NOTE | 2020-02-04 14:44 | CMPROGNOTE_ITS ---
- If Service Date Differs Date of service: 02/04/20 Time of Service: 14:44 Care Management Progress Note S/O: Carmel was sitting up in bed when CM met with her. Her sister, Steph, was in the room with her, visiting. Carmel had been very upset about someone being in her room and not listening to her when she asked to go back into bed from the chair. Steph had concerns about Andressa not improving, and asked if she could be transferred to [facility]. CM attended to Carmel's concern that she isn't being heard, discussing the role of each person who enters her room, which is to help her get better, not to hurt her. CM discussed coping mechanisms including reaching out to the CM to intervene or mediate, if necessary. CM discussed transfer with the MD, who reported that her WBC is coming down nicely, and that she would not qualify for an urgent transfer a this time. CM coordinated a family meeting with StephCarmel, RADHA and MD to discuss her plan of care. Per MD, her abx course has not changed, and she will complete her abx on 02/09/20. She will discharge after her last dose of abx. CM encouraged Andressa to work with staff to help her move, as the concern is that her being in bed for such a prolonged time will make it difficult for her to be independent at home. Steph stated that she will be willing to be present for her PT sessions in order to help motivate her more. CM will continue to follow. A: Carmel is a 65 year old female admitted to [facility] on 01/23/20 with a fever. P: Anticipate Carmel complete her IV abx course at [facility] on SWB1 status. Carmel will return home when medically cleared. She will be driven home by family in a private vehicle vs [facility]. She will resume her [facility] moderate needs, and RN, PT. CM will continue to follow.
[2020-02-04 16:34] VITALS: BP 101/63; PULSE 70; RESP 18; TEMP 35; O2SAT 95
[2020-02-04 19:32] VITALS: BP 103/58; PULSE 70; RESP 18; TEMP 36; O2SAT 91
[2020-02-05] MEDS: CLINDAMYCIN 900 MG/50 ML BAG 50 MG IVPB ×2 (00:23→08:50)
[2020-02-05] MEDS: Heparin 5,000 UNITS/ML VIAL 5000 UNITS SC ×2 (01:37→15:42)
[2020-02-05] MEDS: Normal Saline Flush 10 ML SYR IVP ×5 (01:37→20:49)
[2020-02-05 03:55] VITALS: BP 116/66; PULSE 63; RESP 17; TEMP 35.8; O2SAT 96
[2020-02-05] MEDS: Levothyroxine 50 MCG TAB PO (05:34)
[2020-02-05 06:51] LABS: Abs Immature Grans 0.28 10^3/uL (0.0-0.06); Absolute Basophil Count 0.06 10^3/uL (0.0-0.2); Absolute Eosinophil Count 0.25 10^3/uL (0.0-0.7); Absolute Lymphocyte Count 1.72 10^3/uL (1.2-3.4); Absolute Neutrophil Count 9.43 10^3/uL (1.2-6.7); Basophils % 0.5; Immature Grans % 2.3; Lymphocytes % 13.8; MCHC 31.6 % (32.0-36.0); MCV 88.8 fL (80-95); MPV 10.6 fL (8.0-11.0); Monocytes % 5.6; Neutrophils % 75.8; Nucleated RBC 0 %; Platelet Count 245 10^3/uL (130-400); RBC 4.28 10^6/uL (3.93-5.22); RDW 15.7 % (11.7-14.6); RDW-SD 50.1 fL; WBC 12.44 10^3/uL (4.4-10.8)
[2020-02-05 07:21] LABS: C-Reactive Protein 3.42 mg/dL (0.0-0.3)
[2020-02-05] MEDS: Budesonide/Formoterol 80/4.5 10.2 GM 120 PUFF INH IH ×2 (08:15→20:48)
[2020-02-05 08:16] VITALS: O2SAT 97
[2020-02-05 08:22] VITALS: BP 128/78; PULSE 72; RESP 18; TEMP 36.7; O2SAT 96
[2020-02-05] MEDS: Insulin Glargine 300 UNITS/3 ML PEN 70 UNITS SC ×2 (08:50→20:49)
[2020-02-05] MEDS: Insulin Aspart 300 UNITS/3 ML PEN SC ×5 (08:52→17:32)
[2020-02-05] MEDS: Simvastatin 40 MG TAB PO (08:54)
[2020-02-05] MEDS: Metoprolol 25 MG TAB PO ×2 (08:54→20:50)
[2020-02-05] MEDS: DULoxetine 30 MG CAP 60 MG PO ×2 (08:54→20:49)
[2020-02-05] MEDS: Pantoprazole 40 MG TABCR PO (08:55)
[2020-02-05] MEDS: Losartan 25 MG TAB PO (08:55)
[2020-02-05] MEDS: Ezetimibe 10 MG TAB PO (08:55)
[2020-02-05] MEDS: busPIRone 15 MG TAB PO ×2 (08:55→20:50)
[2020-02-05] MEDS: Ferrous Gluconate 324 MG TAB PO ×2 (08:55→20:49)
[2020-02-05] MEDS: Docusate Sodium 100 MG CAP PO ×2 (08:55→20:50)
[2020-02-05] MEDS: Torsemide 20 MG TAB PO (08:55)
[2020-02-05] MEDS: Nystatin POWDER 60 GM JAR TP ×2 (08:56→20:51)
--- NOTE | 2020-02-05 09:50 | CMPROGNOTE_ITS ---
- If Service Date Differs Date of service: 02/05/20 Time of Service: 09:50 Care Management Progress Note S/O: Carmel was lying in bed when CM met with her. PT requested that CM is present for the evaluation today. PT arrived and spoke with Andressa prior to working with her, answering questions and concerns. Carmel was able to sit up with assistance, but once she began to stand up, she stated that her knee hurt and she didn't want to move any further. She got back into bed, with assistance. PT reported to CM that they would not be following her, as she is resistant to working with PT, and has been refusing to move. Carmel stated that she wants to leave today, CM reminded her that she only has a few more days of abx before she can return home. CM will continue to follow. A: Carmel is a 65 year old female admitted to [facility] on 01/23/20 with a fever. P: Anticipate Carmel complete her IV abx course at [facility]. Carmel will return home when medically cleared. She will be driven home by family in a private vehicle vs [facility]. She will resume her C moderate needs, and RN, PT. CM will continue to follow.
--- NOTE | 2020-02-05 10:01 | IN_ITS ---
Date of service: 02/05/20 Time of Service: 10:01 PT Notes Visit Reasons: FEVER Inpatient Physical Therapy Initial Evaluation Dates: 02/05/2020 Referring Doctor: Missael Mosley MD PT Orders: PT CONSULT: Limited ability Precautions: Fall. Standard. Activity as tolerated. Patient Profile/Admitting Diagnosis: Lisa is a 65-year-old female with spinocerebellar ataxia, chronic back pain, type 2 diabetes mellitus, cardiomyopathy, and COPD who presented to the ED on 01/22/2021 chief presentation increased heart rate, fever, and fall. Patient is diagnosed with superficial venous thrombosis of right arm, bacteremia, abscess of left gluteal area and type 2 diabetes mellitus. PMHX: Medical History Abdominal aortic aneurysm (11/27/12) Identified 10/31/12 CT abd-pelvis; 4cm; stable 4.1 cm 07/2014 CT, 4.3cm 11/2016, 5.5cm 03/04/17 ([facility] [place]). Brennen Nava following; see 04/2016 progress note. 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 Ward Calculus of kidney and ureter Cardiomyopathy Dr Fair, EF 45% Jun 2014 ECHO (h/o much worse) 10/2016 ECHO: EF 40-45% 10/2016 MPI: no acute, but persistent old infarct Carpal tunnel syndrome (08/14/12) resolved s/p b/l release Chronic back pain History of chronic opioids, now none Chronic kidney disease, stage III (moderate) (08/14/12) Cortical atrophy R kidney on CT 07/2014; multiple cysts COPD, mild (07/02/17) PFTs Coronary artery disease involving [place] coronary artery of [place] heart INFERIOR [place] 1996, 100% RCA occlusion; large inf defect on perfusion scan, dr Fair Depressive disorder (08/14/12) Diabetes type 2, uncontrolled 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 Guerra DJD of right shoulder (01/01/13) 12/2012 x-ray severe DJD glenohumeral joint Dr. Guerra; not a surgical candidate for replacement Episode of seizures in July 2012 Esophageal reflux disease (07/24/11) UPPER GI SERIES 11/14/2012, MOD HIATAL HERNIA SEVERE GERD Headache (08/31/13) Hypertension Hypothyroidism Incarcerated umbilical hernia (09/06/15) Marijuana dependence Nausea and vomiting (08/01/14) a. previous history of possible marijuana induced hyperemesis Neurogenic bladder (07/24/11) Does not need to self-cath 11/2016: +Urinary retention [facility] inpt requiring cath; resolved by time of discharge Nicotine dependence Olecranon bursitis, left elbow Other and unspecified hyperlipidemia (08/14/12) Physical deconditioning RLS (restless legs syndrome) Spinal stenosis of lumbar region with neurogenic claudication (12/08/13) 04/13/2013 MRI Lumbar Spine: Facet arthropathy, DJD, L4-5, L5-S1 central spinal and neural foraminal stenosisNeurosurgery referral, but not a surgical candidate; [facility] chronic pain service Chronic Pain [facility] Pain Center consult 10/26/15 [facility] [place] [facility] Spine Center consult 03/04/17 (Sanket Sawant MD) 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) Neuro work-up wchun +Hereditary, 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 Social History/Home Situation: Patient lives alone with son in a private home. She is independent with all ADL performance using a front wheeled walker indoors and outdoors. She states she has a walk-in shower and that she is independent with bathing and dressing activities. Son does laundry, groceries, and meals at home. Sister who lives across from her helps with anything she needs. She did not use oxygen supplementation before. Equipment Owned/DME: Front wheeled walker, single-point cane Subjective: Lisa initially was very agreeable and pleasant. She was okay with sitting up on the edge of the bed with assist of PT. She complained of her bottom hurting and was agreeable stand up when told that standing up should help relieve her bottom. However when she was assisted to stand up, she immediately sat back down stating that it is her knee that is bothering her and that she does not want to go for a walk. talent acquisition operations manager and PT tried to persuade and re- educate her about working towards the goal that were talked about yesterday, to no avail. Objective: General Observation: Obese. IV in L UE. Mental Status: Alert and oriented x 4 Pain: Complains of gluteal area discomfort and knee pain that she did not quantify ROM: Right Upper Extremity: Shoulder Flexion allows up to 80 degrees. Shoulder abduction allows up to 90 degree. Elbow flexion WFL. Wrist flexion WFL. Opening and closing of hand WFL. Left Upper Extremity: Shoulder Flexion allows up to 100 degrees. Shoulder abduction allows up to 100 degrees. Elbow flexion WFL. Wrist flexion WFL. Opening and closing of hand WFL. Right Lower Extremity: Hip flexion 20 degrees past 90 while seated on chair. Hip abduction WFL. Knee flexion WFL. Knee extension -20 degrees. Ankle dorsiflexion WFL. Ankle plantarflexion WFL. Left Lower Extremity: Hip flexion 20 degrees past 90 while seated on chair. Hip abduction WFL. Knee flexion WFL. Knee extension -20 degrees. Ankle dorsiflexion WFL. Ankle plantarflexion WFL. Strength: Right Upper Extremity: Shoulder flexors 3-/5. Shoulder abductors 3-/5. Elbow flexors 4-/5. Elbow extensors 4-/5. Laboratory Manager strong. Left Upper Extremity: Shoulder flexors 3-/5. Shoulder abductors 3-/5. Elbow flexors 4-/5. Elbow extensors 4-/5. Laboratory Manager strong. Right Lower Extremity: Hip flexors 3-/5. Hip abductors 3+/5. Knee flexors 3+/5. Knee extensors 3-/5. Ankle dorsiflexors 3-/5. Ankle plantarflexors 3-/5. Left Lower Extremity: Hip flexors 3-/5. Hip abductors 3+/5. Knee flexors 3+/5. Knee extensors 3-/5. Ankle dorsiflexors 3-/5. Ankle plantarflexors 3-/5. Bed Mobility/Transfers: Sit to supine moderate assist Sit to stand from edge of bed minimal assist with minimal verbal cueing for hand placement Stand to sit minimal assist with minimal verbal cueing for hand placement Bed to chair refused Chair to bed refused Gait: Patient declined mobility assessment stating that her knee hurt and that she does not need to do anything if she does not want to. Balance: Static Sitting: Good Dynamic Sitting: Fair Static Standing: Poor Dynamic Standing: Poor Assessment: Lisa refused to participate in mobility assessment stating that she can go home anytime she wants to without having to do or to participate in anything. She emphasized that this is not [place] . She continues to exhibit instability with gait, generalized body weakness, pain from arthritis, and need for an assistive device for all ADL performance have resulted from current diagnoses and co-morbid conditions. She was discontinued from skilled services on 01/29/2020 due to same lack of motivation and to refusal to continue with mobility/strength progression interventions. Rafa Meredith was present throughout attempt at completing evaluation and saw patient's firm refusal. Patient continues to present with clinical signs and symptoms consistent with current/admitting diagnoses that have resulted to mobility limitations, gait ins tability, generalized weakness, and impairment of motor control as demonstrated by the following impairment level findings: 1. Decreased strength to B UE/LE major muscle groups 2. Impaired sitting/standing balance 3. Impaired activity tolerance 4. Need for oxygen supplementation at all times Impairments are contributing to the following functional limitations: 1. Dependent bed mobility skills 2. Increased dependence with transfers 3. Inability to safely ambulate without assistive device and physical assistance 4. Increase completion time for mobility ADL performance 5. Increased fall risk 6. Inability to negotiate steps alone safely Goals: N/A. Lisa is firm and clear about not wanting to proceed with any skilled PT services at this time despite rigorous persuasion by rafa caraballo and PT about the risks of non-participation. DISCHARGE RECOMMENDATIONS: Lisa will benefit from having a 24/7 caregiver as she is not able to perform bed mobility, transfers, and short distance ambulation without help and without an assistive device. Alternatively, her mobility needs may be met with long-term SNF placement as they have ready help for her there as needed. TREATMENT CODE/TIME: 62614 x 29 minutes beginning at 10:01 AM. Thank you very much for this referral. Alison Onofre PT, DPT, CLT [facility] [place], [place]
[2020-02-05 10:05] VITALS: O2SAT 94
--- NOTE | 2020-02-05 14:41 | W.PM.PROGNOT ---
Date of Service Date of service: 02/05/20 Time of Service: 14:41 Assessment and Plan Assessment and plan (1) Perirectal abscess: Status: Acute Assessment and plan: Dressing was changed twice already today so I did not remove it. Nursing reports reddish drainage with softer surrounding tissue. Having difficulty packing in the 2x2 at this point. Will change back to 1/2 inch gauze. WBC improved. Subjective Subjective Interval history since last seen: No complaints related to the I and D site. Generally feels better. Objective Last Vital Signs Temp 98.1 F 02/05/20 08:22 Pulse 72 02/05/20 08:22 Resp 18 02/05/20 08:22 BP 128/78 02/05/20 08:22 Pulse Ox 94 02/05/20 10:05 Laboratory Results - last 24 hr 02/05/20 02/05/20 06:31 06:31 WBC 12.44 H RBC 4.28 Hgb 12.0 Hct 38.0 MCV 88.8 MCH 28.0 MCHC 31.6 L RDW 15.7 H Plt Count 245 MPV 10.6 Immature Gran % 2.3 Neutrophils % 75.8 Lymphocytes % 13.8 Monocytes % 5.6 Eosinophils % 2.0 Basophils % 0.5 Nucleated RBC % 0 Absolute Neutrophils 9.43 H Absolute Lymphocytes 1.72 Absolute Monocytes 0.70 Absolute Eosinophils 0.25 Absolute Basophils 0.06 C-Reactive Protein 3.42 H
--- NOTE | 2020-02-05 14:53 | W.PM.PROGNOT ---
Date of Service Date of service: 02/05/20 Time of Service: 14:53 Assessment and Plan Assessment and plan (1) Superficial venous thrombosis of arm: Status: Acute Assessment and plan: Improved swelling. No c/o pain. Elevated prn Qualifiers: Laterality: right Qualified Code(s): I82.611 - Acute embolism and thrombosis of superficial veins of right upper extremity (2) Bacteremia due to Gram-positive bacteria: Status: Acute Assessment and plan: Initiated antibiotics on 01/22 at time of admission. Has been on appropriate antibiotics that would cover group B strep since admission. Antibiotics through 02/05 would be 14 days of coverage. (3) Abscess, gluteal, left: Status: Acute Assessment and plan: On IV cliindamycin and PCN G WBC count continues to improve Afebrile. Change to oral clindamycin. Finish course of PCN G tomorrow. (4) Diabetes type 2, uncontrolled: Status: Acute Assessment and plan: glucose readings of 138 and 141 today. Cont basal / bolus insulin and monitoring Qualifiers: Glycemic state: with hyperglycemia Qualified Code(s): E11.65 - Type 2 diabetes mellitus with hyperglycemia (5) Physical deconditioning: Status: Chronic Assessment and plan: She has not been cooperative with routine PT. PT signed off d/t freq refusal to participate. (6) Discharge planning issues: Status: Acute Assessment and plan: Pt insistent on going home. Has help and resources. Planning d/c after finishing IV antibiotics tomorrow. Subjective Subjective Patient reports: no new complaints, feels better, bowel movement and afebrile; denies nausea and vomiting Exam Const General: cooperative and no acute distress Nutritional Appearance: obese Resp Effort & Inspection: normal respiratory effort Auscultation: diminished lung sounds and rhonchi (clears with cough) Cardio Rate: regular rate Rhythm: regular rhythm Heart Sounds: S1 normal and S2 normal GI Palpation: soft and nontender Auscultation: normal bowel sounds Extrem General: no clubbing, cyanosis or edema Objective Last Vital Signs Temp 36.7 C 02/05/20 08:22 Pulse 72 02/05/20 08:22 Resp 18 02/05/20 08:22 BP 128/78 02/05/20 08:22 Pulse Ox 94 02/05/20 10:05 Laboratory Results - last 24 hr 02/05/20 02/05/20 06:31 06:31 WBC 12.44 H RBC 4.28 Hgb 12.0 Hct 38.0 MCV 88.8 MCH 28.0 MCHC 31.6 L RDW 15.7 H Plt Count 245 MPV 10.6 Immature Gran % 2.3 Neutrophils % 75.8 Lymphocytes % 13.8 Monocytes % 5.6 Eosinophils % 2.0 Basophils % 0.5 Nucleated RBC % 0 Absolute Neutrophils 9.43 H Absolute Lymphocytes 1.72 Absolute Monocytes 0.70 Absolute Eosinophils 0.25 Absolute Basophils 0.06 C-Reactive Protein 3.42 H
[2020-02-05] MEDS: Clindamycin 300 MG CAP 600 MG PO ×2 (15:41→20:49)
[2020-02-05 15:59] VITALS: BP 108/60; PULSE 78; RESP 18; TEMP 37.3; O2SAT 92
--- NOTE | 2020-02-05 16:01 | WOUNDCONS_ITS ---
- If Service Date Differs Date of service: 02/05/20 Time of Service: 15:30 Wound Initial Evaluation Narrative: Saw patient today in follow up for wounds on left elbow and right inner thigh. Left elbow wound with light pink epithelial tissue on 90 percent of wound base,w ith a 0.2 cm x 0.2 cm scab. Mepilex with border reapplied for protection of new tissue. Right inner thigh wound with epithelial tissue, slight red flat rash noted. Leaving area ADMITTING OFFICE ESCORT. - Wound Left Elbow Wound Type: Partial Thickness Wound General Appearance: Healing Well Wound Bed Greatest Portion: Pale [place] Wound Length: 1.7 cm Wound Width: 1.4 cm Wound Drainage Amount: None (epithelial tissue in greatest portion of wound bed. 0.2 cm x 0.2 cm area of red scab noted.) - Circulation, Sensation, Motion Edema Degree: 1+ Peripheral Pulse Strength: Normal Capillary Refill: Less than 3 seconds Sensation Description: Within Normal Limits Skin Temperature: Warm Skin Color: Normal - Pain Pain Level: 0 - Treatment/Dressing Change Topicals/Ointments: None Cleanse With: Saline Dressing Types: Mepilex w/Border - Recomendation Recomendation:: Left elbow- Cleanse with ns, pat dry, apply mepilex with border. Change q 3 days and PRN. Right inner thigh- Leave ADMITTING OFFICE ESCORT.
[2020-02-05 20:34] VITALS: BP 129/71; PULSE 74; RESP 18; TEMP 36.7; O2SAT 96
[2020-02-05] MEDS: Protein Nutritional Supplement 16 GM 1 OUNCE PACKET PO (20:48)
[2020-02-06] MEDS: Heparin 5,000 UNITS/ML VIAL 5000 UNITS SC ×2 (01:20→13:39)
[2020-02-06] MEDS: Acetaminophen 325 MG TAB 650 MG PO ×2 (02:48→09:02)
[2020-02-06 03:30] VITALS: BP 111/69; PULSE 70; RESP 18; TEMP 36.5; O2SAT 92
[2020-02-06] MEDS: Levothyroxine 50 MCG TAB PO (06:17)
[2020-02-06 07:27] LABS: Abs Immature Grans 0.22 10^3/uL (0.0-0.06); Absolute Basophil Count 0.06 10^3/uL (0.0-0.2); Absolute Eosinophil Count 0.21 10^3/uL (0.0-0.7); Absolute Lymphocyte Count 1.64 10^3/uL (1.2-3.4); Absolute Monocyte Count 0.68 10^3/uL (0.1-0.8); Basophils % 0.5; Eosinophils % 1.7; HCT 38.7 % (36.0-46.0); HGB 12.3 g/dL (11.2-15.7); Immature Grans % 1.8; Lymphocytes % 13.2; MCH 28.1 pg (27.0-33.0); MCHC 31.8 % (32.0-36.0); MCV 88.4 fL (80-95); MPV 10.6 fL (8.0-11.0); Monocytes % 5.5; Neutrophils % 77.3; Nucleated RBC 0 %; Platelet Count 279 10^3/uL (130-400); RBC 4.38 10^6/uL (3.93-5.22); RDW 15.9 % (11.7-14.6); RDW-SD 50.4 fL; WBC 12.44 10^3/uL (4.4-10.8)
[2020-02-06 07:29] LABS: Absolute Neutrophil Count 9.62 10^3/uL (1.2-6.7)
[2020-02-06 07:57] VITALS: BP 110/62; PULSE 66; RESP 18; TEMP 36.3; O2SAT 90
[2020-02-06] MEDS: Budesonide/Formoterol 80/4.5 10.2 GM 120 PUFF INH IH ×2 (08:18→20:12)
[2020-02-06] MEDS: Simvastatin 40 MG TAB PO (09:01)
[2020-02-06] MEDS: DULoxetine 30 MG CAP 60 MG PO ×2 (09:01→20:15)
[2020-02-06] MEDS: Nicotine 21 MG/24 HR PATCH TD (09:01)
[2020-02-06] MEDS: Pantoprazole 40 MG TABCR PO (09:01)
[2020-02-06] MEDS: Protein Nutritional Supplement 16 GM 1 OUNCE PACKET PO ×2 (09:01→20:15)
[2020-02-06] MEDS: Metoprolol 25 MG TAB PO ×3 (09:02→16:10)
[2020-02-06] MEDS: Clindamycin 300 MG CAP 600 MG PO (09:02)
[2020-02-06] MEDS: Ferrous Gluconate 324 MG TAB PO ×2 (09:02→20:15)
[2020-02-06] MEDS: Losartan 25 MG TAB PO (09:02)
[2020-02-06] MEDS: Torsemide 20 MG TAB PO (09:02)
[2020-02-06] MEDS: busPIRone 15 MG TAB PO ×2 (09:02→20:15)
[2020-02-06] MEDS: Docusate Sodium 100 MG CAP PO ×2 (09:02→20:15)
[2020-02-06] MEDS: Ezetimibe 10 MG TAB PO (09:03)
[2020-02-06] MEDS: Nystatin POWDER 60 GM JAR TP ×2 (09:03→20:14)
[2020-02-06] MEDS: Insulin Aspart 300 UNITS/3 ML PEN SC ×5 (09:03→22:02)
[2020-02-06] MEDS: Insulin Glargine 300 UNITS/3 ML PEN 70 UNITS SC ×2 (10:40→20:14)
--- NOTE | 2020-02-06 11:39 | W.PM.PROGNOT ---
Date of Service Date of service: 02/06/20 Time of Service: 11:40 Assessment and Plan Assessment and plan (1) Perirectal abscess: Status: Acute Assessment and plan: Dressing changed and wound irrigated. No purulent discharge. Continue with antibiotics Encouraged patient to get out of bed Subjective Subjective Interval history since last seen: Mrs. Carvalho is doing well. No pain around I&D site. No fevers overnight. WBC count about the same this am Exam Skin Full body images: 1. area of bruising and mild erythema. The area is soft. No induration. Question a developing abscess above the incision. No fluctuance. 2. Packing removed and wound irrigated with 20 cc of sterile saline. No purulent material. Wound probed. No pockets identified. Wound gently packed with 4x4 and covered with Mepilex border dressing Objective Last Vital Signs Temp 97.3 F L 02/06/20 07:57 Pulse 66 02/06/20 07:57 Resp 18 02/06/20 07:57 BP 110/62 02/06/20 07:57 Pulse Ox 90 L 02/06/20 07:57 Laboratory Results - last 24 hr 02/06/20 07:05 WBC 12.44 H RBC 4.38 Hgb 12.3 Hct 38.7 MCV 88.4 MCH 28.1 MCHC 31.8 L RDW 15.9 H Plt Count 279 MPV 10.6 Immature Gran % 1.8 Neutrophils % 77.3 Lymphocytes % 13.2 Monocytes % 5.5 Eosinophils % 1.7 Basophils % 0.5 Nucleated RBC % 0 Absolute Neutrophils 9.62 H Absolute Lymphocytes 1.64 Absolute Monocytes 0.68 Absolute Eosinophils 0.21 Absolute Basophils 0.06
[2020-02-06 11:45] VITALS: BP 111/67; PULSE 76; RESP 19; TEMP 36.5; O2SAT 95
[2020-02-06] MEDS: metroNIDAZOLE 500 MG/100 ML BAG 100 MG IVPB ×2 (12:20→18:09)
[2020-02-06] MEDS: oxyCODONE 5 mg/Acetaminophen 325 mg TAB PO (13:39)
[2020-02-06 16:18] VITALS: BP 111/69; PULSE 74; RESP 16; TEMP 35.9; O2SAT 91
--- NOTE | 2020-02-06 17:02 | W.PM.PROGNOT ---
Date of Service Date of service: 02/06/20 Time of Service: 17:02 Assessment and Plan Assessment and plan (1) Superficial venous thrombosis of arm: Start date: 02/06/20 Start time: 17:06 Status: Acute Assessment and plan: Improved swelling. No c/o pain. Elevated prn Qualifiers: Laterality: right Qualified Code(s): I82.611 - Acute embolism and thrombosis of superficial veins of right upper extremity (2) Bacteremia due to Gram-positive bacteria: Start date: 02/06/20 Start time: 17:06 Status: Acute Assessment and plan: Initiated antibiotics on 01/22 at time of admission. She did positive blood cultures. Initiated on flagyl and augmentin, due to aortic anyersum she should not be on cipro. 14 day antibiotics starts today. WBC continues to be elevated. Trend CRP and WBC Negative blood cultures on 01/28, however was not covered adequately with antbx. Will monitor over night and transition to oral (3) Abscess, gluteal, left: Start date: 02/06/20 Start time: 17:08 Status: Acute Assessment and plan: As above. (4) Diabetes type 2, uncontrolled: Start date: 02/06/20 Status: Acute Assessment and plan: FS from 123-266. Cont basal / bolus insulin and monitoring Qualifiers: Glycemic state: with hyperglycemia Qualified Code(s): E11.65 - Type 2 diabetes mellitus with hyperglycemia (5) Physical deconditioning: Start date: 02/06/20 Start time: 17:10 Status: Chronic Assessment and plan: She has not been cooperative with routine PT. PT signed off d/t freq refusal to participate. (6) Discharge planning issues: Start date: 02/06/20 Start time: 17:10 Status: Acute Assessment and plan: Pt insistent on going home, she is agreeable to staying overnight, but wants to go home tomorrow. Has help and resources. Above case discussed with Dr. López who is in agreement. Subjective Subjective Patient reports: other Interval history since last seen: Carmel is unhappy with her care from staff, she verbalizes feeling that some days are better than others with this and would like to go home tomorrow because she does not like the way she is being treated. She is agreeable to staying tonight. She denies pain Exam Const General: cooperative, no acute distress and ill appearing Nutritional Appearance: obese Orientation: alert, oriented x3, oriented to person and oriented to place Resp Effort & Inspection: normal respiratory effort Auscultation: clear to auscultation bilaterally, diminished lung sounds and rhonchi (clears with cough) Cardio Rate: regular rate Rhythm: regular rhythm Heart Sounds: S1 normal and S2 normal GI Inspection: obesity Palpation: soft and nontender Percussion: normal to percussion Auscultation: normal bowel sounds Extrem General: no clubbing, cyanosis or edema Right upper extremity: edema (Mild diffuse swelling mostly in forearm.) Objective Last Vital Signs Temp 35.9 C L 02/06/20 16:18 Pulse 74 02/06/20 16:18 Resp 16 02/06/20 16:18 BP 111/69 02/06/20 16:18 Pulse Ox 91 L 02/06/20 16:18 Laboratory Results - last 24 hr 02/06/20 07:05 WBC 12.44 H RBC 4.38 Hgb 12.3 Hct 38.7 MCV 88.4 MCH 28.1 MCHC 31.8 L RDW 15.9 H Plt Count 279 MPV 10.6 Immature Gran % 1.8 Neutrophils % 77.3 Lymphocytes % 13.2 Monocytes % 5.5 Eosinophils % 1.7 Basophils % 0.5 Nucleated RBC % 0 Absolute Neutrophils 9.62 H Absolute Lymphocytes 1.64 Absolute Monocytes 0.68 Absolute Eosinophils 0.21 Absolute Basophils 0.06
[2020-02-06 19:52] VITALS: BP 107/67; PULSE 75; RESP 18; TEMP 36.8; O2SAT 91
--- NOTE | 2020-02-06 20:12 | CMPROGNOTE_ITS ---
- If Service Date Differs Date of service: 02/06/20 Time of Service: 20:12 Care Management Progress Note S/O: Carmel was lying in bed when CM met with her. She appeared to be in good spirits and was pleasant in her interactions. She stated that she will be discharged home tomorrow and is very happy about this. She asked for assistance with contacting Steph to provide transportation. RADHA was able to successfully connect the sisters by phone. A: Carmel is a 65 year old female admitted to [facility] on 01/23/20 with a fever. P: Carmel will likely return home with a resumption of services, which includes [facility] moderate needs, and RN, PT. CM will continue to follow.. She will follow up with her PCP and discharge plan of care and transport with her sister. CM will continue to support Lisa and her discharge planning needs.
[2020-02-06] MEDS: Amoxicillin 875/Clav. 125 TAB PO (20:15)
[2020-02-06] MEDS: Melatonin 3 MG TAB PO ×2 (21:47→22:02)
[2020-02-06 23:35] VITALS: BP 113/66; PULSE 76; RESP 19; TEMP 36.8; O2SAT 94
[2020-02-07] MEDS: metroNIDAZOLE 500 MG/100 ML BAG 100 MG IVPB ×5 (00:08→23:20)
[2020-02-07] MEDS: Normal Saline Flush 10 ML SYR IVP ×2 (00:08→23:20)
[2020-02-07] MEDS: Heparin 5,000 UNITS/ML VIAL 5000 UNITS SC ×2 (01:47→14:26)
[2020-02-07] MEDS: Levothyroxine 50 MCG TAB PO (05:34)
[2020-02-07 07:45] VITALS: BP 110/64; PULSE 76; RESP 19; TEMP 36.6; O2SAT 93
[2020-02-07] MEDS: Budesonide/Formoterol 80/4.5 10.2 GM 120 PUFF INH IH ×2 (08:14→20:37)
[2020-02-07 08:37] LABS: Abs Immature Grans 0.18 10^3/uL (0.0-0.06); Absolute Basophil Count 0.05 10^3/uL (0.0-0.2); Absolute Monocyte Count 0.76 10^3/uL (0.1-0.8); Absolute Neutrophil Count 9.99 10^3/uL (1.2-6.7); Basophils % 0.4; Eosinophils % 1.6; HCT 35.6 % (36.0-46.0); HGB 11.2 g/dL (11.2-15.7); Immature Grans % 1.4; Lymphocytes % 10.8; MCH 27.5 pg (27.0-33.0); MCHC 31.5 % (32.0-36.0); MCV 87.3 fL (80-95); MPV 10.4 fL (8.0-11.0); Monocytes % 6.1; Neutrophils % 79.7; Nucleated RBC 0 %; Platelet Count 261 10^3/uL (130-400); RBC 4.08 10^6/uL (3.93-5.22); RDW 15.9 % (11.7-14.6); RDW-SD 49.7 fL; WBC 12.54 10^3/uL (4.4-10.8)
[2020-02-07 08:39] LABS: Absolute Lymphocyte Count 1.35 10^3/uL (1.2-3.4)
[2020-02-07] MEDS: Ezetimibe 10 MG TAB PO (08:42)
[2020-02-07] MEDS: Acetaminophen 325 MG TAB 650 MG PO (08:43)
[2020-02-07] MEDS: Amoxicillin 875/Clav. 125 TAB PO ×2 (08:44→20:41)
[2020-02-07] MEDS: Insulin Glargine 300 UNITS/3 ML PEN 70 UNITS SC (08:45)
[2020-02-07 08:50] LABS: Anion Gap 8.9 mmol/L (3-11); BUN 38 mg/dL (7-18); CO2 27.1 mmol/L (21.0-32.0); Calcium 10.2 mg/dL (8.5-10.1); Chloride 100 mmol/L (98-107); Estimated GFR 49.69 (mL/min/1.73m2); Glucose 107 mg/dL (74-106); Potassium 3.8 mmol/L (3.5-5.1); Sodium 136 mmol/L (136-145)
[2020-02-07 08:53] LABS: C-Reactive Protein 7.68 mg/dL (0.0-0.3)
[2020-02-07 09:11] LABS: Procalcitonin 0.2 ng/mL
--- NOTE | 2020-02-07 11:12 | PDOC.CMPRO ---
- If Service Date Differs Date of service: 02/07/20 Time of Service: 11:12 Care Management Progress Note S/O: Carmel was lying in bed when CM met with her. She was agreeable to conversation and pleasant in her interactions. Lisa talked a bit about her son and sister and how supportive they are. She verbalized that she hopes PT will work with her again because she really wants to get stronger and go home. She also talked about her cats and how much she misses them. Antibiotics were changed yesterday so a longer course is likely, delaying D/C further. A: Carmel is a 65 year old female admitted to [facility] on 01/23/20 with a fever. P: Carmel will likely return home with a resumption of services, which includes [facility] moderate needs, and RN, PT. She will follow up with her PCP and discharge plan of care and transport with her sister. CM will continue to support Lisa and her discharge planning needs.
--- NOTE | 2020-02-07 11:23 | W.PM.PROGNOT ---
Date of Service Date of service: 02/07/20 Time of Service: 11:23 Assessment and Plan Assessment and plan (1) Perirectal abscess: Status: Acute Assessment and plan: Dressing changed and wound irrigated. No purulent discharge. Continue with antibiotics Encouraged patient to get out of bed Subjective Subjective Interval history since last seen: Mrs. Carvalho is doing OK. She wants to go home. She did not get out of bed to chair yesterday. She has gotten up maybe once to walk to the door and back. Discussed with patient importance of getting up and moving if she wants to go home as we need to make sure she is safe. Exam Skin Full body images: 1. area of redness- much smaller today. No induration 2. incision- packing removed and replaced. Discharge has decreased. Objective Last Vital Signs Temp 97.9 F 02/07/20 07:45 Pulse 76 02/07/20 07:45 Resp 19 02/07/20 07:45 BP 110/64 02/07/20 07:45 Pulse Ox 93 02/07/20 07:45 Laboratory Results - last 24 hr 02/07/20 02/07/20 02/07/20 07:56 07:56 07:56 WBC RBC Hgb Hct MCV MCH MCHC RDW Plt Count MPV Immature Gran % Neutrophils % Lymphocytes % Monocytes % Eosinophils % Basophils % Nucleated RBC % Absolute Neutrophils Absolute Lymphocytes Absolute Monocytes Absolute Eosinophils Absolute Basophils Sodium 136 Potassium 3.8 Chloride 100 Carbon Dioxide 27.1 Anion Gap 8.9 BUN 38 H Creatinine 1.10 H Estimated GFR/1.73 m2 49.69 Glucose 107 H Calcium 10.2 H Magnesium 2.0 C-Reactive Protein 7.68 H Procalcitonin 0.2 02/07/20 07:56 WBC 12.54 H RBC 4.08 Hgb 11.2 Hct 35.6 L MCV 87.3 MCH 27.5 MCHC 31.5 L RDW 15.9 H Plt Count 261 MPV 10.4 Immature Gran % 1.4 Neutrophils % 79.7 Lymphocytes % 10.8 Monocytes % 6.1 Eosinophils % 1.6 Basophils % 0.4 Nucleated RBC % 0 Absolute Neutrophils 9.99 H Absolute Lymphocytes 1.35 Absolute Monocytes 0.76 Absolute Eosinophils 0.20 Absolute Basophils 0.05 Sodium Potassium Chloride Carbon Dioxide Anion Gap BUN Creatinine Estimated GFR/1.73 m2 Glucose Calcium Magnesium C-Reactive Protein Procalcitonin
[2020-02-07] MEDS: Insulin Aspart 300 UNITS/3 ML PEN SC ×3 (12:21→22:32)
[2020-02-07] MEDS: Metoprolol 25 MG TAB PO ×3 (12:29→20:40)
[2020-02-07 12:33] VITALS: BP 127/73; PULSE 66
[2020-02-07 15:29] VITALS: BP 116/73; PULSE 62; RESP 18; TEMP 36.3; O2SAT 97
--- NOTE | 2020-02-07 16:10 | W.PM.PROGNOT ---
Date of Service Date of service: 02/07/20 Time of Service: 16:10 Assessment and Plan Assessment and plan (1) Anaerobic bacteremia: Status: Acute Assessment and plan: Prevotella bacteremia due to perianal abscess, seen on blood cultures on 01/23/2020. Repeat blood cultures were negative 01/29/2020. Case discussed with [facility] ID: unfortunately, there can be resistance in prevotella spp to both clindamycin and pennicilin G, so switching to cipro/flagyl was recommended x 1 week. However, the patient has a h/o AAA and, therefore, has a contraindication to cipro. We switched his antibiotics to augmentin/flagyl yesterday afternoon as a result. Today is day 2. Continue to monitor CRP/procalcitonin. Per general surgery, right now there does not seem to be anything to drain, but they will continue monitoring. (2) Sepsis: Status: Resolved Assessment and plan: Due to above; now clinically resolved, though leucocytosis persists. Monitor for recurrence of fever. (3) Superficial venous thrombosis of arm: Status: Acute Assessment and plan: Improved. Continue elevation of arm. Warm compresses. Qualifiers: Laterality: right Qualified Code(s): I82.611 - Acute embolism and thrombosis of superficial veins of right upper extremity (4) Abscess, gluteal, left: Status: Acute Assessment and plan: S/p I&D on 01/25/2020. As above. (5) Diabetes type 2, uncontrolled: Status: Acute Assessment and plan: FBG 107; lunch time 83. Decrease basal insulin to 60 units BID. Relax carb coverage to 1 unit for every 5 grams of carbohydrate. Continue SSI. Qualifiers: Glycemic state: with hyperglycemia Qualified Code(s): E11.65 - Type 2 diabetes mellitus with hyperglycemia (6) Physical deconditioning: Status: Chronic Assessment and plan: PT signs off as patient was noncooperative. Continue to encourage activity. Patient refuses SNF. There is a question of whether discharge home would be a safe discharge. (7) Discharge planning issues: Status: Acute Assessment and plan: Full code Patient is not stable for discharge home at this time. Care management looking into resources available at home as patient is refusing SNF (from which she would really benefit). (8) DVT prophylaxis: Status: Acute Assessment and plan: SC heparin Subjective Subjective Interval history since last seen: Ms Carvalho states that she has aches and pains everywhere - in her back, throughout her abdomen, her legs. She requests pain medication. She denies dizziness, chest pain, she feels a little short of breath. She denies n/v. + BM today. Exam Narrative Exam Narrative: General: Obese female, A&Ox3, laying comfortably flat in bed without evidence of respiratory distress. HEENT: EOMI, MMM Heart: RRR, no m/r/g Lungs: quiet crackles at B bases Abdomen: soft, mildly diffusely tender Extremities: no e/c/c BLEs Objective Last Vital Signs Temp 36.3 C L 02/07/20 15:29 Pulse 62 02/07/20 15:29 Resp 18 02/07/20 15:29 BP 116/73 02/07/20 15:29 Pulse Ox 97 02/07/20 15:29 Laboratory Results - last 24 hr 02/07/20 02/07/20 02/07/20 07:56 07:56 07:56 WBC RBC Hgb Hct MCV MCH MCHC RDW Plt Count MPV Immature Gran % Neutrophils % Lymphocytes % Monocytes % Eosinophils % Basophils % Nucleated RBC % Absolute Neutrophils Absolute Lymphocytes Absolute Monocytes Absolute Eosinophils Absolute Basophils Sodium 136 Potassium 3.8 Chloride 100 Carbon Dioxide 27.1 Anion Gap 8.9 BUN 38 H Creatinine 1.10 H Estimated GFR/1.73 m2 49.69 Glucose 107 H Calcium 10.2 H Magnesium 2.0 C-Reactive Protein 7.68 H Procalcitonin 0.2 02/07/20 07:56 WBC 12.54 H RBC 4.08 Hgb 11.2 Hct 35.6 L MCV 87.3 MCH 27.5 MCHC 31.5 L RDW 15.9 H Plt Count 261 MPV 10.4 Immature Gran % 1.4 Neutrophils % 79.7 Lymphocytes % 10.8 Monocytes % 6.1 Eosinophils % 1.6 Basophils % 0.4 Nucleated RBC % 0 Absolute Neutrophils 9.99 H Absolute Lymphocytes 1.35 Absolute Monocytes 0.76 Absolute Eosinophils 0.20 Absolute Basophils 0.05 Sodium Potassium Chloride Carbon Dioxide Anion Gap BUN Creatinine Estimated GFR/1.73 m2 Glucose Calcium Magnesium C-Reactive Protein Procalcitonin
[2020-02-07] MEDS: oxyCODONE 5 mg/Acetaminophen 325 mg TAB PO ×2 (16:21→20:43)
[2020-02-07 19:25] VITALS: BP 121/69; PULSE 64; RESP 18; TEMP 36.3; O2SAT 93
[2020-02-07] MEDS: Insulin Glargine 300 UNITS/3 ML PEN 60 UNITS SC (20:39)
[2020-02-07] MEDS: DULoxetine 30 MG CAP 60 MG PO (20:40)
[2020-02-07] MEDS: Protein Nutritional Supplement 16 GM 1 OUNCE PACKET PO (20:41)
[2020-02-07] MEDS: Ferrous Gluconate 324 MG TAB PO (20:41)
[2020-02-07] MEDS: busPIRone 15 MG TAB PO (20:41)
[2020-02-07] MEDS: Docusate Sodium 100 MG CAP PO (20:41)
[2020-02-07] MEDS: Nystatin POWDER 60 GM JAR TP (20:50)
[2020-02-08 00:24] VITALS: BP 122/62; PULSE 76; RESP 18; TEMP 36.8; O2SAT 96
[2020-02-08] MEDS: Heparin 5,000 UNITS/ML VIAL 5000 UNITS SC ×2 (02:36→14:14)
[2020-02-08] MEDS: Levothyroxine 50 MCG TAB PO (05:27)
[2020-02-08] MEDS: metroNIDAZOLE 500 MG/100 ML BAG 100 MG IVPB ×4 (05:30→23:46)
[2020-02-08] MEDS: Budesonide/Formoterol 80/4.5 10.2 GM 120 PUFF INH IH ×2 (07:31→20:27)
[2020-02-08 07:34] LABS: Absolute Eosinophil Count 0.21 10^3/uL (0.0-0.7); Absolute Lymphocyte Count 1.36 10^3/uL (1.2-3.4); Absolute Monocyte Count 0.97 10^3/uL (0.1-0.8); Basophils % 0.5; Eosinophils % 1.6; HCT 34.5 % (36.0-46.0); HGB 11.1 g/dL (11.2-15.7); Immature Grans % 1.5; Lymphocytes % 10.4; MCH 28.4 pg (27.0-33.0); MCHC 32.2 % (32.0-36.0); MCV 88.2 fL (80-95); MPV 10.4 fL (8.0-11.0); Monocytes % 7.4; Neutrophils % 78.6; Nucleated RBC 0 %; Platelet Count 255 10^3/uL (130-400); RBC 3.91 10^6/uL (3.93-5.22); RDW 15.9 % (11.7-14.6); WBC 13.06 10^3/uL (4.4-10.8)
[2020-02-08 07:39] LABS: Absolute Basophil Count 0.07 10^3/uL (0.0-0.2); Absolute Neutrophil Count 10.27 10^3/uL (1.2-6.7)
[2020-02-08 07:54] LABS: Anion Gap 5.9 mmol/L (3-11); BUN 31 mg/dL (7-18); CO2 26.1 mmol/L (21.0-32.0); Chloride 99 mmol/L (98-107); Estimated GFR 49.69 (mL/min/1.73m2); Glucose 142 mg/dL (74-106); Magnesium 1.9 mg/dL (1.8-2.4); Potassium 3.8 mmol/L (3.5-5.1); Sodium 131 mmol/L (136-145)
[2020-02-08 08:33] VITALS: BP 152/77; PULSE 82; RESP 17; TEMP 36.8; O2SAT 92
[2020-02-08] MEDS: Ezetimibe 10 MG TAB PO (08:38)
[2020-02-08] MEDS: Losartan 25 MG TAB PO (08:38)
[2020-02-08] MEDS: Pantoprazole 40 MG TABCR PO (08:38)
[2020-02-08] MEDS: Metoprolol 25 MG TAB PO ×4 (08:39→20:27)
[2020-02-08] MEDS: DULoxetine 30 MG CAP 60 MG PO ×2 (08:39→20:27)
[2020-02-08] MEDS: busPIRone 15 MG TAB PO ×2 (08:39→20:27)
[2020-02-08] MEDS: Ferrous Gluconate 324 MG TAB PO ×2 (08:39→20:27)
[2020-02-08] MEDS: oxyCODONE 5 mg/Acetaminophen 325 mg TAB PO ×2 (08:39→14:13)
[2020-02-08] MEDS: Simvastatin 40 MG TAB PO (08:40)
[2020-02-08] MEDS: Protein Nutritional Supplement 16 GM 1 OUNCE PACKET PO ×2 (08:40→20:27)
[2020-02-08] MEDS: Docusate Sodium 100 MG CAP PO ×2 (08:40→20:26)
[2020-02-08] MEDS: Torsemide 20 MG TAB PO (08:40)
[2020-02-08] MEDS: Amoxicillin 875/Clav. 125 TAB PO (08:40)
[2020-02-08] MEDS: Insulin Glargine 300 UNITS/3 ML PEN 60 UNITS SC ×2 (08:41→20:28)
[2020-02-08] MEDS: Insulin Aspart 300 UNITS/3 ML PEN SC ×7 (08:42→21:16)
[2020-02-08] MEDS: Normal Saline Flush 10 ML SYR IVP ×3 (08:46→23:46)
--- NOTE | 2020-02-08 09:13 | CMPROGNOTE_ITS ---
Care Management Progress Note S/O: Carmel remains inpatient; antibiotics continue to be adjusted at this time. Anticipate extended hospital course to continue; CM continues to follow. Carmel is unable to ambulate independently, though intends on returning home and has previously declined to work with PT on strengthening while inpatient at [facility]. A: Carmel is a 65 year old female admitted to [facility] on 01/23/20 with a fever. P: Carmel will likely return home with a resumption of services, which includes [facility] moderate needs, VNA: RN, PT. She will follow up with her PCP and discharge plan of care and transport via private vehicle with her sister.
[2020-02-08] MEDS: Nystatin POWDER 60 GM JAR TP ×2 (09:58→20:29)
[2020-02-08] MEDS: PIPERACILLIN/TAZO 3.375 GM in Normal Saline 50 ML IVPB ×3 (11:29→23:45)
--- NOTE | 2020-02-08 13:13 | NUR.NOTE ---
Nursing Note: 02/08/2020 13:13 Nurse brought MRI screening form into patient's room to ask patient safety questions prior to MRI, about [facility] through the questions patient reports she will not agree to go get an MRI. Nurse provided verbal education about MRI, emphasized that the doctor is trying to see what is going on to help patient with pain and ambulation issues. Patient continued to refuse MRI, authoring nurse told patient this is her informed choice she can make and notified charge nurse. Patient reports she already knows what is wrong with her back, nurse asked patient what is wrong with her back and patient responded that she has spinal stenosis that she treats with prescribed marijuana.
[2020-02-08 16:08] VITALS: BP 117/71; PULSE 68; RESP 17; TEMP 37.2; O2SAT 95
--- NOTE | 2020-02-08 16:08 | PGE_ITS ---
Date of Service Date of service: 02/08/20 Time of Service: 16:09 Assessment and Plan Assessment and plan (1) Anaerobic bacteremia: Start date: 02/08/20 Start time: 16:19 Status: Acute Assessment and plan: Prevotella bacteremia due to perianal abscess, seen on blood cultures on 01/23/2020. Repeat blood cultures were negative 01/29/2020. Case discussed with [facility] ID: unfortunately, there can be resistance in prevotella spp to both clindamycin and pennicilin G, so switching to cipro/flagyl was r ecommended x 1 week. However, the patient has a h/o AAA and, therefore, has a contraindication to cipro. We switched his antibiotics to augmentin/flagyl yesterday afternoon as a result. Today is day 2. Continue to monitor CRP/procalcitonin. Per general surgery, right now there does not seem to be anything to drain, but they will continue monitoring. (2) Sepsis: Start date: 02/08/20 Start time: 16:20 Status: Resolved Assessment and plan: Due to above; now clinically resolved, though leucocytosis persists. Monitor for recurrence of fever. (3) Superficial venous thrombosis of arm: Start date: 02/08/20 Start time: 16:13 Status: Acute Assessment and plan: Improved. Continue elevation of arm. Warm compresses. Qualifiers: Laterality: right Qualified Code(s): I82.611 - Acute embolism and thrombosis of superficial veins of right upper extremity (4) Abscess, gluteal, left: Start date: 02/08/20 Start time: 16:16 Status: Acute Assessment and plan: S/p I&D on 01/25/2020. As above. (5) Diabetes type 2, uncontrolled: Start date: 02/08/20 Start time: 16:16 Status: Acute Assessment and plan: Both am and lunch fingersticks have been 140-160's. will maintain current regimen Continue SSI. Qualifiers: Glycemic state: with hyperglycemia Qualified Code(s): E11.65 - Type 2 diabetes mellitus with hyperglycemia (6) Physical deconditioning: Start date: 02/08/20 Start time: 16:17 Status: Chronic Assessment and plan: PT signs off as patient was noncooperative. Continue to encourage activity. Patient refuses SNF. There is a question of whether discharge home would be a safe discharge. She is not ambulating and when trying to get out of bed she had lower extremity weakness. She had a near fall last evening. MRI was to be done to r/o caudia equina, patient refused MRI. She does have good rectal tone. Will hold off MRI at this time. She will need a plan for safe discharge when medically ready (7) Discharge planning issues: Start date: 02/08/20 Start time: 16:19 Status: Acute Assessment and plan: Full code Patient is not stable for discharge home at this time. Care management looking into resources available at home as patient is refusing SNF (from which she would really benefit). (8) DVT prophylaxis: Start date: 02/08/20 Start time: 16:20 Status: Acute Assessment and plan: SC heparin Above case discussed with Dr. López who is in agreement. Subjective Subjective Patient reports: no new complaints Interval history since last seen: Wants to go home. Does not understand why she has to stay. Explained to her about needing a change in antibiotics and continuing to watch her abscess. She refused MRI. She does have good rectal tone. At this time will hold off on MRI. She is asking for something for anxiety will give valium TID prn. Exam Narrative Exam Narrative: General: Obese female, A&Ox3, laying comfortably flat in bed without evidence of respiratory distress. HEENT: EOMI, MMM Heart: RRR, no m/r/g Lungs: quiet crackles at B bases Abdomen: soft, mildly diffusely tender Extremities: no e/c/c BLEs Objective Last Vital Signs Temp 36.8 C 02/08/20 08:33 Pulse 82 02/08/20 08:33 Resp 17 02/08/20 08:33 BP 152/77 H 02/08/20 08:33 Pulse Ox 92 02/08/20 08:33 Laboratory Results - last 24 hr 02/08/20 02/08/20 06:58 06:58 WBC 13.06 H RBC 3.91 L Hgb 11.1 L Hct 34.5 L MCV 88.2 MCH 28.4 MCHC 32.2 RDW 15.9 H Plt Count 255 MPV 10.4 Immature Gran % 1.5 Neutrophils % 78.6 Lymphocytes % 10.4 Monocytes % 7.4 Eosinophils % 1.6 Basophils % 0.5 Nucleated RBC % 0 Absolute Neutrophils 10.27 H Absolute Lymphocytes 1.36 Absolute Monocytes 0.97 H Absolute Eosinophils 0.21 Absolute Basophils 0.07 Sodium 131 L Potassium 3.8 Chloride 99 Carbon Dioxide 26.1 Anion Gap 5.9 BUN 31 H Creatinine 1.10 H Estimated GFR/1.73 m2 49.69 Glucose 142 H Calcium 10.0 Magnesium 1.9 C-Reactive Protein 7.20 H
[2020-02-08] MEDS: diazePAM 5 MG TAB PO (17:37)
[2020-02-08 20:29] VITALS: BP 112/65; PULSE 81; RESP 18; TEMP 36.8; O2SAT 95
[2020-02-09] MEDS: Heparin 5,000 UNITS/ML VIAL 5000 UNITS SC (01:47)
[2020-02-09 03:22] VITALS: BP 108/62; PULSE 77; RESP 18; TEMP 35.8; O2SAT 95
[2020-02-09] MEDS: Normal Saline Flush 10 ML SYR IVP (05:41)
[2020-02-09] MEDS: metroNIDAZOLE 500 MG/100 ML BAG 100 MG IVPB (05:41)
[2020-02-09] MEDS: PIPERACILLIN/TAZO 3.375 GM in Normal Saline 50 ML IVPB ×2 (05:41→12:06)
[2020-02-09] MEDS: Levothyroxine 50 MCG TAB PO (05:42)
[2020-02-09 07:19] LABS: Abs Immature Grans 0.14 10^3/uL (0.0-0.06); Absolute Basophil Count 0.08 10^3/uL (0.0-0.2); Absolute Eosinophil Count 0.22 10^3/uL (0.0-0.7); Absolute Lymphocyte Count 1.69 10^3/uL (1.2-3.4); Absolute Monocyte Count 0.91 10^3/uL (0.1-0.8); Absolute Neutrophil Count 8.48 10^3/uL (1.2-6.7); Basophils % 0.7; Eosinophils % 1.9; HCT 34.2 % (36.0-46.0); Immature Grans % 1.2; Lymphocytes % 14.7; MCH 27.9 pg (27.0-33.0); MCHC 32.2 % (32.0-36.0); MCV 86.8 fL (80-95); MPV 10.5 fL (8.0-11.0); Monocytes % 7.9; Neutrophils % 73.6; Nucleated RBC 0 %; Platelet Count 279 10^3/uL (130-400); RBC 3.94 10^6/uL (3.93-5.22); RDW 15.9 % (11.7-14.6); RDW-SD 50.1 fL; WBC 11.52 10^3/uL (4.4-10.8)
[2020-02-09 07:31] VITALS: BP 116/60; PULSE 72; RESP 18; TEMP 36.9; O2SAT 95
[2020-02-09 07:35] LABS: Anion Gap 8.1 mmol/L (3-11); BUN 30 mg/dL (7-18); C-Reactive Protein 9.68 mg/dL (0.0-0.3); CO2 27.9 mmol/L (21.0-32.0); CREATININE 1.05 mg/dL (0.55-1.02); Calcium 10.2 mg/dL (8.5-10.1); Chloride 101 mmol/L (98-107); Estimated GFR 52.43 (mL/min/1.73m2); Glucose 91 mg/dL (74-106); Magnesium 1.8 mg/dL (1.8-2.4); Potassium 3.5 mmol/L (3.5-5.1); Sodium 137 mmol/L (136-145)
--- NOTE | 2020-02-09 07:52 | W.PM.PROGNOT ---
Documented by User: SU Kenyon 02/09/20 08:08 Date of Service Date of service: 02/09/20 Time of Service: 07:52 Assessment and Plan Assessment and plan (1) Perirectal abscess: Status: Acute Assessment and plan: She is very anxious to leave today. Strongly encouraged particpation in activities out of bed to include sitting in the chair this morning for breakfast. Continue antibiotics Subjective Subjective Interval history since last seen: This morning Lisa is very anxious and upset. She would like to be d/c home. She denies having any pain at this time. Exam Const General: cooperative, healthy appearing and comfortable Orientation: alert and oriented x3 Resp Effort & Inspection: normal respiratory effort, no audible wheezes and no cough Objective Last Vital Signs Temp 36.9 C 02/09/20 07:31 Pulse 72 02/09/20 07:31 Resp 18 02/09/20 07:31 BP 116/60 02/09/20 07:31 Pulse Ox 95 02/09/20 07:31 Laboratory Results - last 24 hr 02/08/20 02/09/20 02/09/20 06:58 06:26 06:26 WBC 11.52 H RBC 3.94 Hgb 11.0 L Hct 34.2 L MCV 86.8 MCH 27.9 MCHC 32.2 RDW 15.9 H Plt Count 279 MPV 10.5 Immature Gran % 1.2 Neutrophils % 73.6 Lymphocytes % 14.7 Monocytes % 7.9 Eosinophils % 1.9 Basophils % 0.7 Nucleated RBC % 0 Absolute Neutrophils 8.48 H Absolute Lymphocytes 1.69 Absolute Monocytes 0.91 H Absolute Eosinophils 0.22 Absolute Basophils 0.08 Sodium 131 L 137 Potassium 3.8 3.5 Chloride 99 101 Carbon Dioxide 26.1 27.9 Anion Gap 5.9 8.1 BUN 31 H 30 H Creatinine 1.10 H 1.05 H Estimated GFR/1.73 m2 49.69 52.43 Glucose 142 H 91 D Calcium 10.0 10.2 H Magnesium 1.9 1.8 C-Reactive Protein 7.20 H 9.68 H Documented by User: Mine Roque MD 02/09/20 09:00
[2020-02-09] MEDS: Nystatin POWDER 60 GM JAR TP (07:55)
--- NOTE | 2020-02-09 10:41 | W.PM.DS.N ---
DS: Diagnosis Discharge Diagnosis (1) Perirectal abscess: Status: Acute Discharge Plan Disposition Patient Disposition: AGAINST MEDICAL ADVICE Condition: Serious Discharge Details Reason For Visit: FEVER Admit Date/Time: 01/23/20 20:16 Admit Provider: Albert Harkins Attending Provider: Albert Harkins Primary Care Provider: Mai Castelan Hospital Course Hospital Course: 65 y.o female with complicated actherine-rectal abscess admitted to [facility] for IV antibiotics I&D of abscess and deconditioning is leaving AMA. She was found to be bactermic with Provetella which was also found in her wound. Initial treatment was with vanco and zosyn, after cultures grew. Case discussed with [facility] ID: unfortunately, there can be resistance in prevotella spp to both clindamycin and pennicilin G, so switching to cipro/flagyl was recommended x 1 week. However, the patient has a h/o AAA and, therefore, has a contraindication to cipro. We switched her antibiotics to augmentin/flagyl yesterday afternoon as a result. 2 days after starting augmentin, leukocytosis did not improve; she was then switched back to zosyn/flgayl with a decrease in leukocytosis. CRP did trend up however this is possible when checking daily therefore should be monitored every 3 days - 1 week to truly indicate if improving. She refused PT while in the hospital, given her deconditioning it would have been most beneficial for her to go to [facility], however she refused and was adamant about going home. At this time she is not safe for discharge. She would benefit from zosyn giving the trending down of WBC on this antibiotic. I have spoke with Lisa at length about my concerns and what could happen if she does not have adequate treatment. She states she understands but wants to leave she has had enough. We will set up HH with referral to PCP and surgery for follow up. I did speak with PCP office regarding concerns. Home Meds and New Rx's Prescriptions: New metronidazole [Flagyl] 500 mg tablet 500 mg PO BID Qty: 28 RF: 0 amoxicillin-pot clavulanate [Augmentin] 875-125 mg tablet 1 tab PO BID Qty: 28 RF: 0 diazepam [Valium] 5 mg tablet 5 mg PO BID PRNQty: 20 RF: 0 Bio-K plus 50 billion cell capsule,delayed release(DR/EC) 1 cap PO DAILY Qty: 30 RF: 0 No Action ezetimibe [Zetia] 10 mg tablet 10 mg PO DAILY Qty: 90 RF: 3 levothyroxine 50 mcg tablet 50 mcg PO DAILY Qty: 90 RF: 3 mupirocin 2 % ointment 1 applic TP BID Qty: 15 RF: 0 torsemide 10 mg tablet 20 mg PO DAILY RF: 0 naproxen 250 mg tablet 250 mg PO BID PRNRF: 0 Ozempic 0.25 mg or 0.5 mg(2 mg/1.5 mL) pen injector 0.25 mg SC QWEEK Qty: 1.5 RF: 0 nicotine 10 mg cartridge 1 inh IH 4-6XD PRN (Reason: nicotine cravings) Qty: 168 RF: 1 acetaminophen 500 mg capsule 1,000 mg PO TID Qty: 180 RF: 11 Mucinex 1,200 mg tablet extended release 12hr 1,200 mg PO Q12H PRN (Reason: cold symptoms) Qty: 60 RF: 1 prednisone 20 mg tablet See Rx Instructions PO .daily in AM with joann Qty: 9 RF: 0 diclofenac sodium [Voltaren] 1 % gel 2 g Topical BID PRN (Reason: elbow pain) Qty: 1 RF: 0 Trapeze See Rx Instructions .ROUTE .COMPLEX Qty: 1 RF: 0 Medical THC 1 misc Inhalation PRN PRNRF: 0 budesonide-formoterol [Symbicort] 10.2 GM HFA aerosol inhaler 2 puff Inhalation BID Qty: 3 RF: 3 finasteride 5 mg tablet 1.25 mg PO DAILY RF: 0 buspirone 30 mg tablet 15 mg PO BID Qty: 90 RF: 3 losartan [Cozaar] 50 mg tablet 50 mg PO DAILY Qty: 90 RF: 3 benzonatate [Tessalon Perles] 100 mg capsule 100 mg PO TID PRN (Reason: cough) Qty: 90 RF: 3 ipratropium bromide 0.03 % spray,non-aerosol 2 spray SANKET TID Qty: 30 RF: 0 (DME) blood sugar diagnostic Strip See Dose Instructions .ROUTE .MEDSUPPLY Qty: 400 RF: 3 (DME) lancets [OneTouch UltraSoft Lancets] Misc See Dose Instructions .ROUTE .MEDSUPPLY Qty: 400 RF: 3 duloxetine [Cymbalta] 60 mg capsule,delayed release(DR/EC) 60 mg PO BID Qty: 180 RF: 3 pantoprazole 40 mg tablet,delayed release (DR/EC) 40 mg PO DAILY Qty: 90 RF: 3 ascorbic acid (vitamin C) [Vitamin C] 250 mg tablet 250 mg PO BID Qty: 60 RF: 0 ferrous gluconate 324 mg (37.5 mg iron) tablet 324 mg PO BID Qty: 60 RF: 0 Lantus Solostar U-100 Insulin 100 unit/mL (3 mL) insulin pen 80 unit Sub-Q HS Qty: 220 RF: 3 insulin aspart U-100 [Novolog Flexpen U-100 Insulin] 100 unit/mL (3 mL) insulin pen See Rx Instructions SC AC Qty: 80 RF: 3 (DME) pen needle, diabetic [BD Ultra-Fine Carmela Pen Needle] 32 gauge x 5/32 needle 1 ea Sub-Q 6 times a day Qty: 540 RF: 6 simvastatin 40 mg tablet 40 mg PO DAILY Qty: 90 RF: 3 acetaminophen-codeine 300-30 mg tablet 1 tab PO DAILY PRN (Reason: pain) Qty: 5 RF: 0 albuterol sulfate [ProAir HFA] 90 mcg/actuation HFA aerosol inhaler 1 - 2 puff Inhalation Q4H PRN Qty: 18 RF: 3 miscellaneous medical supply [facility] RF: 0 metoprolol tartrate 25 mg tablet 25 mg PO BID RF: 0 Lantus Solostar U-100 Insulin 100 unit/mL (3 mL) insulin pen SUBCUT RF: 0 Ozempic 0.25 mg or 0.5 mg(2 mg/1.5 mL) pen injector SUBCUT RF: 0 docusate sodium [Colace] 100 mg capsule 100 mg PO BID Qty: 60 RF: 0 ipratropium-albuterol 0.5 mg-3 mg(2.5 mg base)/3 mL solution for nebulization 3 ml IH Q4H PRN (Reason: shortness of breath or wheezing) Qty: 180 RF: 0 Discharge Instructions Instructions: Abscess Incision and Drainage (DC) Additional Instructions: Follow up with PCP in a couple of days CBC, BMP, CRP in 3 days Follow up with surgery in 1 week HH with RN services for wound care, [facility] Palliative Care consult Referrals: Mine Roque MD [ [facility] STAFF PHYSICIAN] - 02/18/20 9:00 am Mai Castelan NP [Primary Care Provider] - 02/12/20 1:00 pm (Seeing Laxmi Quan) Cesilia Bragg MD [ [facility] STAFF PHYSICIAN] - (Follow up for palliative care, goals of care) Activity:: Activity as Tolerated Diet:: As Tolerated Discharge Orders Other Ambulatory Orders: Basic Metabolic Panel (Routine) Location: None Selected Ordered By: Mai Goodson Complete Blood Count w/Diff (Routine) Location: None Selected Ordered By: Mai Goodson C-Reactive Protein (Routine) Location: None Selected Ordered By: Mai Goodson DS: Summary Status at Discharge Functional status at discharge: bed bound Overall status at discharge: patient is progressing back to baseline Mental Status: mental status grossly normal Speech and Movement: speech and movement normal Mood: anxious mood Affect: normal affect Exam Psych Mental Status: mental status grossly normal Speech and Movement: speech and movement normal Mood: anxious mood Affect: normal affect DS: Data Vitals/I&O Vitals and I&O: Vital Signs Temperature 36.9 C 02/09/20 07:31 Temperature Source Tympanic 02/09/20 07:31 Pulse 72 02/09/20 07:31 Pulse Rhythm Regular 02/09/20 09:49 Pulse 87 01/25/20 14:08 Respiratory Rate 18 02/09/20 07:31 Respiratory Effort Non-Labored 02/09/20 09:49 Respiratory Depth Normal 02/09/20 09:49 Respiratory Pattern Normal 02/09/20 09:49 Blood Pressure 116/60 02/09/20 07:31 Blood Pressure Mean 87 01/25/20 14:08 Blood Pressure Position Supine 01/25/20 03:54 Pulse Oximetry 95 02/09/20 07:31 Oxygen Delivery Method Room Air 02/09/20 07:31 Oxygen Flow Rate 0 02/09/20 07:31 Pain Level 5 02/09/20 07:31 Comment 02/06/20 19:52 Intake & Output 02/08/20 02/08/20 02/09/20 11:59 23:59 11:59 Intake Total 730 / 1940 1210 / 1940 170 / 170 Output Total 1400 / 2950 1550 / 2950 950 / 950 Balance -670 / -1010 -340 / -1010 -780 / -780 Intake: IV 250 / 500 250 / 500 170 / 170 Oral 480 / 1440 960 / 1440 Output: Urine 1400 / 2950 1550 / 2950 950 / 950 Other: Urine Color Straw Yellow Straw Urine Appearance Clear Clear Clear Stool Size Moderate Moderate Stool Characteristics Soft Soft Brown Formed Brown Green Data Completed and Pending Labs on day of discharge: Labs from last 24 hours 02/09/20 02/09/20 06:26 06:26 WBC 11.52 H RBC 3.94 Hgb 11.0 L Hct 34.2 L MCV 86.8 MCH 27.9 MCHC 32.2 RDW 15.9 H Plt Count 279 MPV 10.5 Immature Gran % 1.2 Neutrophils % 73.6 Lymphocytes % 14.7 Monocytes % 7.9 Eosinophils % 1.9 Basophils % 0.7 Nucleated RBC % 0 Absolute Neutrophils 8.48 H Absolute Lymphocytes 1.69 Absolute Monocytes 0.91 H Absolute Eosinophils 0.22 Absolute Basophils 0.08 Sodium 137 Potassium 3.5 Chloride 101 Carbon Dioxide 27.9 Anion Gap 8.1 BUN 30 H Creatinine 1.05 H Estimated GFR/1.73 m2 52.43 Glucose 91 D Calcium 10.2 H Magnesium 1.8 C-Reactive Protein 9.68 H [facility] History Abdominal aortic aneurysm (11/27/12) Identified 10/31/12 CT abd-pelvis; 4cm; stable 4.1 cm 07/2014 CT, 4.3cm 11/2016, 5.5cm 03/04/17 ([facility]). Brennen Nava following; see 04/2016 progress note. 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 Ward Calculus of kidney and ureter Cardiomyopathy Dr Fair, EF 45% Jun 2014 ECHO (h/o much worse) 10/2016 ECHO: EF 40-45% 10/2016 MPI: no acute, but persistent old infarct Carpal tunnel syndrome (08/14/12) resolved s/p b/l release Chronic back pain History of chronic opioids, now none Chronic kidney disease, stage III (moderate) (08/14/12) Cortical atrophy R kidney on CT 07/2014; multiple cysts COPD, mild (07/02/17) PFTs Coronary artery disease involving [place] coronary artery of [place] heart INFERIOR 1996, 100% RCA occlusion; large inf defect on perfusion scan, dr Fair Depressive disorder (08/14/12) Diabetes type 2, uncontrolled 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 Guerra DJD of right shoulder (01/01/13) 12/2012 x-ray severe DJD glenohumeral joint Dr. Guerra; not a surgical candidate for replacement Episode of seizures in July 2012 Esophageal reflux disease (07/24/11) UPPER GI SERIES 11/14/2012, MOD HIATAL HERNIA SEVERE GERD Headache (08/31/13) Hypertension Hypothyroidism Incarcerated umbilical hernia (09/06/15) Marijuana dependence Nausea and vomiting (08/01/14) a. previous history of possible marijuana induced hyperemesis Neurogenic bladder (07/24/11) Does not need to self-cath 11/2016: +Urinary retention [facility] inpt requiring cath; resolved by time of discharge Nicotine dependence Olecranon bursitis, left elbow Other and unspecified hyperlipidemia (08/14/12) Physical deconditioning RLS (restless legs syndrome) Spinal stenosis of lumbar region with neurogenic claudication (12/08/13) 04/13/2013 MRI Lumbar Spine: Facet arthropathy, DJD, L4-5, L5-S1 central spinal and neural foraminal stenosis Neurosurgery referral, but not a surgical candidate [facility] chronic pain service Chronic Pain [facility] Pain Center consult 10/26/15 [facility] Spine Center consult 03/04/17 (Sanket Sawant MD) 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) Neuro work-up wchun +Hereditary, 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 Family History Mother , at 78yo from dementia Dementia Father , MVA (truck) accident at 45yo No problems noted. Sister Thyroid cancer Other Diabetes FH: mental illness Social History Smoking/Tobacco Use Status: Current every day Alcohol Intake: never Drug use: Daily Substance use type: marijuana Adopted: No Foster care: No Housing: house Number of Children: 1 Communication Needs: Corrective Lenses Education Level: high school Details: didn't sophomore year Do you need help understanding health information?: Never 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 Pets and animals: Yes Current gender identity: female What is your relationship status?: Panel score (0-1 are the most socially isolated patients): 0 What type of physical activity do you participate in: none Do you feel safe at home: Yes Do you feel safe in your relationship?: Yes
--- NOTE | 2020-02-09 11:07 | PDOC.HHF2F ---
Home Health Certification Home Health Certification: 1. Encounter Date and Reason I certify that KELSEY GEORGE was seen by Mai Goodson on 02/09/20 and that I had a bbrw-tx-hnth encounter with this patient that meets the physician face to face encounter requirements. 2. Clinical Findings Supporting Skilled Need and Homebound Status I certify that home health services are medically necessary, include either intermittent mcc and/or physical/speech therapy, and that this patient is homebound in that absences from the home require considerable and taxing effort and are infrequent or of short duration, or are attributable to the need to receive medical care. [X] (a) Attached documentation from encounter provides clinical findings supporting skilled need and homebound status (including what assistance patient requires to leave the home). The encounter with the patient was in whole, or in part, for the following medical condition, which is the primary reason for home health care: FEVER Jail: Patient would benefit from Nursing services for wound care, lab draws and etc. Physical Therapy: Patient would benefit from PT in the home for stability, and strength She would also benefit from ROAD MIXER OPERATOR Homebound: Unable to leave home without assistance. 3. Certification and Authentication I certify that I composed the above information based on my clinical judgement relating to this patient's medical condition and, if applicable, clinical findings communicated to me by the SHEET METAL ASSEMBLER AND RIVETER or inpatient physician who performed the Home Health Referral. All further orders will be obtained through ____Mai Murillo (Community Based Physician - PCP)
[2020-02-09] MEDS: Metoprolol 25 MG TAB PO (12:06)
--- NOTE | 2020-02-09 17:53 | PDOC.CMDIS ---
- If Service Date Differs Date of service: 02/09/20 Time of Service: 17:53 LACE Index Scoring Tool - Questions: Length of Stay (in days): 14 or more Acuity (Admit via E.D.?): Yes Comorbidities: Diabetes w/o Complication, Congestive Heart Failure, Chronic Pulmonary Disease, Mild Liver/Renal Disease E.D. Visits: 2 - Answers: Total Score: 17 Risk of Readmission: High Risk Care Management Discharge Reason for Hospitalization: Fever Discharge Plan: Carmel stated that she would be leaving today, regardless of what her provider recommended. RADHA spoke to Carmel and her sister extensively regarding her abx course. Originally today was the last day of her current abx course, but as her abx were changed this weekend, it was recommended that she remain at [facility] for continued IV abx. Carmel stated that she did not want to stay any longer. RADHA spoke to the provider, who reported that she would agree to write a prescription for oral abx, even though the recommendation was for her to remain on IV abx. RADHA coordinated a resumption of RN, PT, with the addition of DATABASE ADMINISTRATION ASSOCIATE. RADHA also requested Palliative to meet with her out patient, in her home. She has a follow up with her PCP scheduled later this week, and labs requested later this week as well. RADHA also spoke to Richa Stiles, her [facility] counter caser, who will visit with her tomorrow at home and help her complete a terminal make up operator SAM[employer] application. Carmel was very happy to be going home today, although she left AMA. Patient/Family Education Needs: Review discharge instructions regarding risks associated with leaving AMA, follow up appointments, discussion of self care needs and goals of care. Services Needed at Discharge: Home Health Care Services (HC RN, PT, DATABASE ADMINISTRATION ASSOCIATE)
== END 2020-02-09 13:34 | disposition left against medical advice (07) | DRG 939 ==
LOC: ER 20:23 → ICU 01-25 07:47 → MS 01-26 09:25
PROVIDERS: Family Medicine; Internal Medicine; Student in an Organized Health Care Education/Training Program; Surgery; Admitting Provider General Practice; Emergency Provider Physician Assistant; PCP Nurse Practitioner Adult Health; Visit Provider General Practice
PROC: 0D9P7ZZ Drainage of Rectum, Via Natural or Artificial Opening (ICD-10-PCS; CPT 46040; principal; 2020-01-25 12:00)
DX: R53.81 Other malaise (principal); A41.9 Sepsis, unspecified organism; G11.9 Hereditary ataxia, unspecified; N17.9 Acute kidney failure, unspecified; K61.1 Rectal abscess; I82.611 Acute embolism and thrombosis of superficial veins of right upper extremity; Z68.43 Body mass index [BMI] 50.0-59.9, adult; I71.4 Abdominal aortic aneurysm, without rupture; I25.2 Old myocardial infarction; G89.29 Other chronic pain; M54.9 Dorsalgia, unspecified; N18.3 Chronic kidney disease, stage 3 (moderate); J44.9 Chronic obstructive pulmonary disease, unspecified; I25.5 Ischemic cardiomyopathy; I25.10 Atherosclerotic heart disease of native coronary artery without angina pectoris; F32.9 Major depressive disorder, single episode, unspecified; E11.65 Type 2 diabetes mellitus with hyperglycemia; E11.22 Type 2 diabetes mellitus with diabetic chronic kidney disease; K21.9 Gastro-esophageal reflux disease without esophagitis; E78.9 Disorder of lipoprotein metabolism, unspecified; F17.210 Nicotine dependence, cigarettes, uncomplicated; G25.81 Restless legs syndrome; M48.062 Spinal stenosis, lumbar region with neurogenic claudication; E11.40 Type 2 diabetes mellitus with diabetic neuropathy, unspecified; R29.6 Repeated falls; S50.312A Abrasion of left elbow, initial encounter; W19.XXXA Unspecified fall, initial encounter; F12.20 Cannabis dependence, uncomplicated; R74.8 Abnormal levels of other serum enzymes; B95.1 Streptococcus, group B, as the cause of diseases classified elsewhere; I27.20 Pulmonary hypertension, unspecified; D50.9 Iron deficiency anemia, unspecified; E66.9 Obesity, unspecified
CPT/HCPCS: 46040; 36415; 51702; 71250; 80048; 80053; 82805; 84145; 85027; 85652; 87040; 87077; 87449; 87505; 93005; 93306; 94640; 96361; 96365; 96367; 96375; 97162; 97163; 97530; 99222; 99225; 99231; 99232; 99233; 99239; 99253; 99291; NC; U0003; 70450; 71045; 72125; 80202; 81003; 81015; 82140; 83036; 83605; 83735; 83880; 84443; 84484; 85025; 85610; 85730; 86140; 87070; 87075; 87205; 87324; 93010; 93971; J0131; J1644; J2540; J2543; J2704

== ENCOUNTER 2020-02-12 09:57 | Outpatient (REF) | payer MEDICARE, MEDICAID, SELFPAY ==
[2020-02-12 10:44] LABS: HCT 39.4 % (36.0-46.0); HGB 12.3 g/dL (11.2-15.7); MCH 27.9 pg (27.0-33.0); MCHC 31.2 % (32.0-36.0); MCV 89.3 fL (80-95); MPV 10.9 fL (8.0-11.0); Platelet Count 322 10^3/uL (130-400); RBC 4.41 10^6/uL (3.93-5.22); RDW 16.5 % (11.7-14.6); RDW-SD 52.7 fL; WBC 10.46 10^3/uL (4.4-10.8)
[2020-02-12 10:46] LABS: Anion Gap 7.4 mmol/L (3-11); BUN 25 mg/dL (7-18); C-Reactive Protein 5.71 mg/dL (0.0-0.3); CO2 26.6 mmol/L (21.0-32.0); CREATININE 1.24 mg/dL (0.55-1.02); Calcium 10.3 mg/dL (8.5-10.1); Chloride 104 mmol/L (98-107); Estimated GFR 43.28 (mL/min/1.73m2); Glucose 227 mg/dL (74-106); Potassium 4.4 mmol/L (3.5-5.1); Sodium 138 mmol/L (136-145)
== END 2020-02-12 10:17 ==
LOC: LBN 09:57
PROVIDERS: PCP Nurse Practitioner Adult Health; Visit Provider Nurse Practitioner Adult Health
DX: D50.9 Iron deficiency anemia, unspecified (principal); E11.22 Type 2 diabetes mellitus with diabetic chronic kidney disease; I13.0 Hypertensive heart and chronic kidney disease with heart failure and stage 1 through stage 4 chronic kidney disease, or unspecified chronic kidney disease; E03.9 Hypothyroidism, unspecified
CPT/HCPCS: 80048; 85027; 86140

== ENCOUNTER 2020-02-17 07:14 | Emergency (ER) | payer MEDICARE, MEDICAID, SELFPAY ==
[2020-02-17] VITALS (50 sets, daily range): BP systolic 118–164; BP diastolic 60–135; PULSE 58–114; RESP 13–28; TEMP 36.8; O2SAT 89–97
--- NOTE | 2020-02-17 07:25 | W.ED.GENAD ---
Discharge Plan Disposition Patient Disposition: AGAINST MEDICAL ADVICE Condition: Stable Discharge Details Clinical Impression: Physical deconditioning, Adult failure to thrive, Vaginal yeast infection Primary Care Provider: Mai Castelan ED Provider: Rosalie Barclay Home Meds and New Rx's Prescriptions: Continued ezetimibe [Zetia] 10 mg tablet 10 mg PO DAILY Qty: 90 RF: 3 levothyroxine 50 mcg tablet 50 mcg PO DAILY Qty: 90 RF: 3 torsemide 10 mg tablet 20 mg PO DAILY RF: 0 naproxen 250 mg tablet 250 mg PO BID PRNRF: 0 Hold Instructions: Home Medication placed on hold at Doctor's office Ozempic 0.25 mg or 0.5 mg(2 mg/1.5 mL) pen injector 0.25 mg SC QWEEK Qty: 1.5 RF: 1 gabapentin 100 mg capsule See Rx Instructions PO BID Qty: 80 RF: 0 nicotine 10 mg cartridge 1 inh IH 4-6XD PRN (Reason: nicotine cravings) Qty: 168 RF: 1 acetaminophen 500 mg capsule 1,000 mg PO TID Qty: 180 RF: 11 Mucinex 1,200 mg tablet extended release 12hr 1,200 mg PO Q12H PRN (Reason: cold symptoms) Qty: 60 RF: 1 diclofenac sodium [Voltaren] 1 % gel 2 g Topical BID PRN (Reason: elbow pain) Qty: 1 RF: 0 Trapeze See Rx Instructions .ROUTE .COMPLEX Qty: 1 RF: 0 Medical THC 1 misc Inhalation PRN PRNRF: 0 budesonide-formoterol [Symbicort] 10.2 GM HFA aerosol inhaler 2 puff Inhalation BID Qty: 3 RF: 3 finasteride 5 mg tablet 1.25 mg PO DAILY RF: 0 buspirone 30 mg tablet 15 mg PO BID Qty: 90 RF: 3 losartan [Cozaar] 50 mg tablet 50 mg PO DAILY Qty: 90 RF: 3 benzonatate [Tessalon Perles] 100 mg capsule 100 mg PO TID PRN (Reason: cough) Qty: 90 RF: 3 ipratropium bromide 0.03 % spray,non-aerosol 2 spray SANKET TID Qty: 30 RF: 0 (DME) blood sugar diagnostic Strip See Dose Instructions .ROUTE .MEDSUPPLY Qty: 400 RF: 3 (DME) lancets [OneTouch UltraSoft Lancets] [facility] [place] See Dose Instructions .ROUTE .MEDSUPPLY Qty: 400 RF: 3 duloxetine [Cymbalta] 60 mg capsule,delayed release(DR/EC) 60 mg PO BID Qty: 180 RF: 3 pantoprazole 40 mg tablet,delayed release (DR/EC) 40 mg PO DAILY Qty: 90 RF: 3 ascorbic acid (vitamin C) [Vitamin C] 250 mg tablet 250 mg PO BID Qty: 60 RF: 0 ferrous gluconate 324 mg (37.5 mg iron) tablet 324 mg PO BID Qty: 60 RF: 0 Lantus Solostar U-100 Insulin 100 unit/mL (3 mL) insulin pen 80 unit Sub-Q HS Qty: 220 RF: 3 insulin aspart U-100 [Novolog Flexpen U-100 Insulin] 100 unit/mL (3 mL) insulin pen See Rx Instructions SC AC Qty: 80 RF: 3 (DME) pen needle, diabetic [BD Ultra-Fine Carmela Pen Needle] 32 gauge x 5/32 needle 1 ea Sub-Q 6 times a day Qty: 540 RF: 6 simvastatin 40 mg tablet 40 mg PO DAILY Qty: 90 RF: 3 albuterol sulfate [ProAir HFA] 90 mcg/actuation HFA aerosol inhaler 1 - 2 puff Inhalation Q4H PRN Qty: 18 RF: 3 miscellaneous medical supply [facility] RF: 0 metoprolol tartrate 25 mg tablet 25 mg PO BID RF: 0 metronidazole [Flagyl] 500 mg tablet 500 mg PO BID Qty: 28 RF: 0 amoxicillin-pot clavulanate [Augmentin] 875-125 mg tablet 1 tab PO BID Qty: 28 RF: 0 diazepam [Valium] 5 mg tablet 5 mg PO BID PRNQty: 20 RF: 0 Bio-K plus 50 billion cell capsule,delayed release(DR/EC) 1 cap PO DAILY Qty: 30 RF: 0 docusate sodium [Colace] 100 mg capsule 100 mg PO BID Qty: 60 RF: 0 ipratropium-albuterol 0.5 mg-3 mg(2.5 mg base)/3 mL solution for nebulization 3 ml IH Q4H PRN (Reason: shortness of breath or wheezing) Qty: 180 RF: 0 Discharge Instructions Instructions: Yeast Infection (ED), Failure to Thrive in Older Adults (ED) Additional Instructions: You will be evaluated by home health today. You will be evaluated by palliative care at home soon, possibly as early as tomorrow. Return immediately to the emergency department if you develop any worsening or new concerning symptoms. Discharge Data Discharge Date/Time-TO BE ENTERED AT DEPARTURE: 02/17/20 12:37 Discharge Physician: Rosalie Barclay Medical Decision Making <Jeremie Mcdonald DO - Last Filed: 02/17/20 07:49> 65-year-old female with a past medical history of notable deconditioning, AAA, diabetes, COPD, chronic kidney disease, with a recent admission on 01/23/2024 deconditioning, bacteremia and perirectal abscess which was incised and drained, patient was put on multiple different antibiotics secondary to the resistance patterns of the cultured Provetella. Unfortunately the patient was on amendable to transfer to a SNF facility, and she left AGAINST MEDICAL ADVICE to go home. She was started on Augmentin and Flagyl for continued treatment of the perirectal abscess. She left AMA on 02/09/2020 to go home with home health and assistance at home. Since being home patient states that she has been unable to get up or move at all any significance. She feels that she is notably too weak, and she feels that she has no choice but to go to a rehab facility now. She contacted EMS last night, but per the patient and EMS got a confrontation with other family members there and refused to come back to the ER. Again this morning EMS was contacted to bring her to the ER secondary to continued weakness and inability to perform activities of daily living. Aside for generalized weakness which is chronic rather than acute she denies any other complaints. She denies any urinary complaints. She denies any numbness tingling or new focal weakness. She denies any headache chest pain cough fever or chills. She denies any significant changes in her bowel or bladder habits. No other complaints at this time. No other modifying factors. Physical exam is relatively unremarkable. Perirectal area demonstrates mild skin breakdown in general secondary to likely a mild pressure component, the postoperative I&D site demonstrates no fluctuance discharge or warmth. Packing is in place. If you localize small nodules on the left gluteal cleft, appears to be more chronic than acute. No other significant abnormalities on exam. Patient is notably just deconditioned, no evidence of focal neurologic deficit though. At this time the patient states that she is amendable to admission to a rehab facility. We will get basic labs urinalysis and test for C. difficile she does admit to a small amount of mild diarrhea. I have paged case management to help in the direction of this case. Pending all results and callbacks at this time. Patient will be signed out to my colleague Dr. Rosalie Barclay for follow-up on labs and disposition. <Rosalie Barclay, DO - Last Filed: 02/17/20 18:35> 0800 --please see Dr. Mcdonald's note for initial presentation, exam and plan. Case endorsed to follow-up on labs and with care management with plan for admission for deconditioning with plan for transfer to assisted facility. She lives at home with her son. She has home health and her Sister Steph checks on her and helps her daily. She got into an argument with her sister Steph today and states I do not think she will want to help me anymore . Labs reviewed and unremarkable. Glucose 249 but with normal electrolytes. Negative urinalysis. Patient unable give stool sample and no report of diarrhea so doubt C. difficile. She does have clinical findings of yeast infection. Will give 1 dose of Diflucan p.o. Discussed with patient at bedside. She is oriented x3. She is requesting to go home. Care management evaluated her at bedside and patient states she does not want to go to a rehab facility or be admitted to the hospital. Will discuss with patient's Sister Steph to ensure that she is willing to help patient at home while awaiting for additional assistance with home health. 1000 --care management discussed with patient Sister Steph who is not willing to help her at home. Discussed with patient that we would advise that she stay as she does not have help at home and is unable to ambulate on her own. Patient is again refusing to stay. She would not be able to go home by ambulance if leaves AMA. Patient would like to speak to her Sister Steph. Discussed with care management and will have a PT eval in the emergency department. 1145 --patient failed PT eval. She was unable to transfer [facility] and needed significant assistance with ambulation. Discussed with patient that we would recommend admission for continued observation, continued physical therapy and likely transfer to SNF. Patient states she does not want to stay and wants to go home. She states she feels fed up with her condition. She denies suicidal ideation. She is oriented x3 and she continues to demonstrate capacity to make decisions. Patient is unable to go home by ambulance AMA. Discussed with care management and they have arranged for [facility] to bring her home by wheelchair van and she will get lift assist at home. A palliative care referral has been placed and Dr. Bragg may see her as early as tomorrow. A COVID swab was obtained here today. Usual and customary return precautions given prior to discharge. Medical Records Medical records reviewed: Yes I reviewed the patient's medical records. Lab Data Lab results reviewed: Yes I reviewed the patient's lab results. Labs: Laboratory Tests Range/Units 02/17/20 02/17/20 02/17/20 07:35 07:35 07:50 WBC (4.4-10.8) 10^3/uL 7.05 RBC (3.93-5.22) 10^6/uL 4.34 Hgb (11.2-15.7) g/dL 12.2 Hct (36.0-46.0) % 38.9 MCV (80-95) fL 89.6 MCH (27.0-33.0) pg 28.1 MCHC (32.0-36.0) % 31.4 L RDW (11.7-14.6) % 16.4 H Plt Count (130-400) 10^3/uL 254 MPV (8.0-11.0) fL 10.3 Immature Gran % 0.4 Neutrophils % 68.3 Lymphocytes % 20.3 Monocytes % 5.8 Eosinophils % 4.8 Basophils % 0.4 Nucleated RBC % % 0 Absolute Neutrophils (1.2-6.7) 10^3/uL 4.81 Absolute Lymphocytes (1.2-3.4) 10^3/uL 1.43 Absolute Monocytes (0.1-0.8) 10^3/uL 0.41 Absolute Eosinophils (0.0-0.7) 10^3/uL 0.34 Absolute Basophils (0.0-0.2) 10^3/uL 0.03 Sodium (136-145) mmol/L 138 Potassium (3.5-5.1) mmol/L 4.3 Chloride (98-107) mmol/L 103 Carbon Dioxide (21.0-32.0) mmol/L 28.5 Anion Gap (3-11) mmol/L 6.5 BUN (7-18) mg/dL 13 Creatinine (0.55-1.02) mg/dL 0.95 Estimated GFR/1.73 m2 (mL/min/1.73m2) 58.85 Glucose (74-106) mg/dL 249 H Calcium (8.5-10.1) mg/dL 9.7 Total Bilirubin (0.2-1.0) mg/dL 0.4 AST (15-37) U/L 16 ALT (14-59) U/L 15 Alkaline Phosphatase (46-116) U/L 114 Total Protein (6.4-8.2) g/dL 7.1 Albumin (3.4-5.0) g/dL 2.8 L Urine Color (Yellow) Yellow Urine Clarity (Clear) Clear Urine pH (5-8) 7.0 Ur Specific [place] (1.005-1.025) 1.020 Urine Protein (Negative) mg/dL Negative Urine Ketones (Negative) mg/dL Negative Urine Blood (Negative) Negative Urine Nitrite (Negative) Negative Urine Bilirubin (Negative) Negative Urine Urobilinogen (Up TO 0.2) EU/dL 0.2 Ur Leukocyte Esterase (Negative) Negative Urine Glucose (Negative) mg/dL Negative HPI <Jeremie Mcdonald DO - Last Filed: 02/17/20 07:49> General Date/Time Provider Initiated Documentation: 02/17/20 07:46. HPI Narrative: 65-year-old female with a past medical history of notable deconditioning, AAA, diabetes, COPD, chronic kidney disease, with a recent admission on 01/23/2024 deconditioning, bacteremia and perirectal abscess which was incised and drained, patient was put on multiple different antibiotics secondary to the resistance patterns of the cultured Provetella. Unfortunately the patient was on amendable to transfer to a SNF facility, and she left AGAINST MEDICAL ADVICE to go home. She was started on Augmentin and Flagyl for continued treatment of the perirectal abscess. She left AMA on 02/09/2020 to go home with home health and assistance at home. Since being home patient states that she has been unable to get up or move at all any significance. She feels that she is notably too weak, and she feels that she has no choice but to go to a rehab facility now. She contacted EMS last night, but per the patient and EMS got a confrontation with other family members there and refused to come back to the ER. Again this morning EMS was contacted to bring her to the ER secondary to continued weakness and inability to perform activities of daily living. Aside for generalized weakness which is chronic rather than acute she denies any other complaints. She denies any urinary complaints. She denies any numbness tingling or new focal weakness. She denies any headache chest pain cough fever or chills. She denies any significant changes in her bowel or bladder habits. No other complaints at this time. No other modifying factors. Related Data Home Medications Medication Instructions Recorded Confirmed Medical Thc 1 misc INHALATION PRN PRN 04/06/14 11/09/19 budesonide-formoterol [Symbicort] 2 puff INHALATION BID #3 inhaler 01/28/17 02/17/20 nicotine 10 mg inhalation cartridge 1 inh IH 4-6XD PRN #168 each 10/30/18 02/17/20 finasteride 5 mg tablet 1.25 mg PO DAILY tab 02/09/19 02/17/20 ezetimibe 10 mg tablet 10 mg PO DAILY #90 tab-cap 03/03/19 02/17/20 levothyroxine 50 mcg tablet 50 mcg PO DAILY #90 tab-cap 03/03/19 02/17/20 buspirone 30 mg tablet 15 mg PO BID #90 tab 06/11/19 02/17/20 losartan 50 mg tablet 50 mg PO DAILY #90 tab 06/11/19 02/17/20 benzonatate 100 mg capsule 100 mg PO TID PRN #90 cap 07/02/19 02/17/20 ipratropium bromide 0.03 % nasal 2 spray SANKET TID #30 ml 07/25/19 02/17/20 spray acetaminophen 500 mg capsule 1,000 mg PO TID #180 cap 08/17/19 02/17/20 guaifenesin 1,200 mg tablet, 1,200 mg PO Q12H PRN #60 tab 04/06/20 10/07/20 extended release 12 hr blood sugar diagnostic #400 each 08/21/19 11/09/19 lancets #400 each 08/21/19 11/09/19 docusate sodium [Colace] 100 mg PO BID #60 cap 09/05/19 02/17/20 ipratropium-albuterol 3 ml IH Q4H PRN #180 ml 09/05/19 02/17/20 duloxetine 60 mg capsule,delayed 60 mg PO BID #180 tab-cap 09/07/19 02/17/20 release pantoprazole 40 mg tablet,delayed 40 mg PO DAILY #90 tab-cap 09/07/19 02/17/20 release ascorbic acid (vitamin C) 250 mg 250 mg PO BID #60 tab 09/14/19 02/17/20 tablet ferrous gluconate 324 mg (37.5 mg 324 mg PO BID #60 tab 09/14/19 02/17/20 iron) tablet naproxen 250 mg tablet 250 mg PO BID PRN tab 09/25/19 02/17/20 insulin glargine 100 unit/mL (3 80 unit SUB-Q HS #220 ml 10/07/19 02/17/20 mL) subcutaneous pen insulin aspart U-100 100 unit/mL See Rx Instructions SC AC #80 ml 10/09/19 02/17/20 (3 mL) subcutaneous pen pen needle, diabetic 32 gauge x #540 ndl 10/16/19 11/09/19 5/32 simvastatin 40 mg tablet 40 mg PO DAILY #90 tab 10/16/19 02/17/20 torsemide 10 mg tablet 20 mg PO DAILY tab-cap 11/09/19 02/17/20 diclofenac sodium 1 % topical gel 2 g TOPICAL BID PRN #1 tube 12/23/19 02/17/20 albuterol sulfate 90 mcg/actuation 1 - 2 puff INHALATION Q4H PRN #18 12/28/19 02/17/20 aerosol inhaler gm miscellaneous medical supply each 01/07/20 Trapeze See Rx Instructions .ROUTE 01/08/20 01/08/20 .COMPLEX #1 unit metoprolol tartrate 25 mg PO BID 01/23/20 02/17/20 Bio-K plus 1 cap PO DAILY #30 cap 02/09/20 02/17/20 amoxicillin-pot clavulanate 1 tab PO BID #28 tab 02/09/20 02/17/20 [Augmentin] diazepam [Valium] 5 mg PO BID PRN #20 tab 02/09/20 02/17/20 metronidazole [Flagyl] 500 mg PO BID #28 tab 02/09/20 02/17/20 gabapentin 100 mg capsule See Rx Instructions PO BID #80 cap 02/10/20 02/17/20 semaglutide 0.25 mg SC QWEEK #1.5 ml 02/10/20 02/17/20 Previous Rx's Medication Instructions Recorded budesonide-formoterol [Symbicort] 2 puff INHALATION BID #3 inhaler 01/28/17 nicotine 10 mg inhalation cartridge 1 inh IH 4-6XD PRN #168 each 10/30/18 ezetimibe 10 mg tablet 10 mg PO DAILY #90 tab-cap 03/03/19 levothyroxine 50 mcg tablet 50 mcg PO DAILY #90 tab-cap 03/03/19 buspirone 30 mg tablet 15 mg PO BID #90 tab 06/11/19 losartan 50 mg tablet 50 mg PO DAILY #90 tab 06/11/19 benzonatate 100 mg capsule 100 mg PO TID PRN #90 cap 07/02/19 ipratropium bromide 0.03 % nasal 2 spray SANKET TID #30 ml 07/25/19 spray acetaminophen 500 mg capsule 1,000 mg PO TID #180 cap 08/17/19 guaifenesin 1,200 mg tablet, 1,200 mg PO Q12H PRN #60 tab 08/17/19 extended release 12 hr blood sugar diagnostic #400 each 08/21/19 lancets #400 each 08/21/19 docusate sodium [Colace] 100 mg PO BID #60 cap 09/05/19 ipratropium-albuterol 3 ml IH Q4H PRN #180 ml 09/05/19 duloxetine 60 mg capsule,delayed 60 mg PO BID #180 tab-cap 09/07/19 release pantoprazole 40 mg tablet,delayed 40 mg PO DAILY #90 tab-cap 09/07/19 release ascorbic acid (vitamin C) 250 mg 250 mg PO BID #60 tab 09/14/19 tablet ferrous gluconate 324 mg (37.5 mg 324 mg PO BID #60 tab 09/14/19 iron) tablet insulin glargine 100 unit/mL (3 80 unit SUB-Q HS #220 ml 10/07/19 mL) subcutaneous pen insulin aspart U-100 100 unit/mL See Rx Instructions SC AC #80 ml 10/09/19 (3 mL) subcutaneous pen pen needle, diabetic 32 gauge x #540 ndl 10/16/19 simvastatin 40 mg tablet 40 mg PO DAILY #90 tab 10/16/19 diclofenac sodium 1 % topical gel 2 g TOPICAL BID PRN #1 tube 12/23/19 albuterol sulfate 90 mcg/actuation 1 - 2 puff INHALATION Q4H PRN #18 12/28/19 aerosol inhaler gm Trapeze See Rx Instructions .ROUTE 01/08/20 .COMPLEX #1 unit Bio-K plus 1 cap PO DAILY #30 cap 02/09/20 amoxicillin-pot clavulanate 1 tab PO BID #28 tab 02/09/20 [Augmentin] diazepam [Valium] 5 mg PO BID PRN #20 tab 02/09/20 metronidazole [Flagyl] 500 mg PO BID #28 tab 02/09/20 gabapentin 100 mg capsule See Rx Instructions PO BID #80 cap 02/10/20 semaglutide 0.25 mg SC QWEEK #1.5 ml 02/10/20 Allergies Allergy/AdvReac Type Severity Reaction Status Date / Time bupropion HCl Allergy Severe seizures Verified 02/17/20 07:29 [From Wellbutrin] carvedilol [From Coreg] Allergy Mild Itching Verified 02/17/20 07:29 morphine AdvReac Unknown nausea Verified 02/17/20 07:29 General DINESH: 2 Review of Systems <Jeremie Mcdonald DO - Last Filed: 02/17/20 07:49> All systems reviewed & are unremarkable except as noted in HPI and below PFSH <Jeremie Mcdonald DO - Last Filed: 02/17/20 07:49> Medical History Abdominal aortic aneurysm (11/27/12) Identified 10/31/12 CT abd-pelvis; 4cm; stable 4.1 cm 07/2014 CT, 4.3cm 11/2016, 5.5cm 03/04/17 ([facility]). Brennen Nava following; see 04/2016 progress note. 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 Guerra DJD of right shoulder (01/01/13) 12/2012 x-ray severe DJD glenohumeral joint Dr. Guerra; not a surgical candidate for replacement Episode of seizures in July 2012 Esophageal reflux disease (07/24/11) UPPER GI SERIES 11/14/2012, MOD HIATAL HERNIA SEVERE GERD Headache (08/31/13) Hypertension Hypothyroidism Incarcerated umbilical hernia (09/06/15) Marijuana dependence Nausea and vomiting (08/01/14) a. previous history of possible marijuana induced hyperemesis Neurogenic bladder (07/24/11) Does not need to self-cath 11/2016: +Urinary retention [facility] inpt requiring cath; resolved by time of discharge Nicotine dependence Olecranon bursitis, left elbow Other and unspecified hyperlipidemia (08/14/12) Physical deconditioning RLS (restless legs syndrome) Spinal stenosis of lumbar region with neurogenic claudication (12/08/13) 04/13/2013 MRI Lumbar Spine: Facet arthropathy, DJD, L4-5, L5-S1 central spinal and neural foraminal stenosis Neurosurgery referral, but not a surgical candidate [facility] chronic pain service Chronic Pain [facility] Pain Center consult 10/26/15 [facility] Spine Center consult 03/04/17 (Sanket Sawant MD) 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) Neuro work-up 2010/[place] +Hereditary, 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 Family History Mother , at 78yo from dementia Dementia Father , MVA (truck) accident at 45yo No problems noted. Sister Thyroid cancer Other Diabetes FH: mental illness Social History Smoking/Tobacco Use Status: Current every day Tobacco Type: cigarettes Alcohol Intake: never Drug use: Daily Substance use type: marijuana Adopted: No Foster care: No Housing: house Number of Children: 1 Communication Needs: Corrective Lenses Education Level: high school Details: didn't sophomore year Do you need help understanding health information?: Never 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 Pets and animals: Yes Current gender identity: female What is your relationship status?: Panel score (0-1 are the most socially isolated patients): 0 What type of physical activity do you participate in: none Do you feel safe at home: No Do you feel safe in your relationship?: No Additional Social history: No one in my family is talking to me Exam <Jeremie Mcdonald DO - Last Filed: 02/17/20 07:49> Narrative Exam Narrative: 1.Const: Well-nourished, Well-developed, appearing stated age 2.Eyes: PERRL, no conjunctival injection, and symmetrical lids. 3.ENT: Atraumatic external nose and ears. Moist MM. Neck: Symmetric, trachea midline, No thyromegaly. 4.CVS: +S1/S2, No murmurs or gallops. Peripheral pulses 2+ and equal in all extremities. Brisk capillary refill in all extremities. 5.RESP: Unlabored respiratory effort. Clear to auscultation bilaterally. No wheezes rales or rhonchi 6.GI: Soft, Nontender/Nondistended, No hepatosplenomegaly. No guarding or rebound. Rectal exam demonstrates mild redness and mild skin breakdown in the buttocks, post I&D packing appears to be in place and is clean. Palpation of the area demonstrates no evidence of large mass or fluctuance. This is located on the right buttock. The left gluteal cleft demonstrates a small area of minimal induration which feels to be more chronic than acute, no fluctuance, no warmth. Genital exam does demonstrate evidence of questionable yeast infection vaginal region. 7.MSK: Normocephalic/Atraumatic, Extremities w/o deformity or ttp No cyanosis or clubbing, Normal movement of all extremities 8.Skin: Warm, Dry. Please see GI for rectal exam 9.Neuro: tool room attendant II-XII grossly intact. Sensation grossly intact, no focal neurologic deficits. 10.Psych: (AAO) x3. Appropriate mood and affect Sign Out <Jeremie Mcdonald DO - Last Filed: 02/17/20 07:49> Sign Out Data: Sign Out Comment: Follow-up on labs/C. difficile and urinalysis. Expect admission [facility] facility. Last updated by Jeremie Mcdonald DO at 02/17/20 07:44
[2020-02-17 07:45] LABS: Abs Immature Grans 0.03 10^3/uL (0.0-0.06); Absolute Basophil Count 0.03 10^3/uL (0.0-0.2); Absolute Eosinophil Count 0.34 10^3/uL (0.0-0.7); Absolute Lymphocyte Count 1.43 10^3/uL (1.2-3.4); Absolute Monocyte Count 0.41 10^3/uL (0.1-0.8); Absolute Neutrophil Count 4.81 10^3/uL (1.2-6.7); Basophils % 0.4; Eosinophils % 4.8; HCT 38.9 % (36.0-46.0); HGB 12.2 g/dL (11.2-15.7); Immature Grans % 0.4; Lymphocytes % 20.3; MCH 28.1 pg (27.0-33.0); MCHC 31.4 % (32.0-36.0); MCV 89.6 fL (80-95); MPV 10.3 fL (8.0-11.0); Monocytes % 5.8; Neutrophils % 68.3; Nucleated RBC 0 %; Platelet Count 254 10^3/uL (130-400); RBC 4.34 10^6/uL (3.93-5.22); RDW 16.4 % (11.7-14.6); RDW-SD 52.8 fL; WBC 7.05 10^3/uL (4.4-10.8)
[2020-02-17 08:02] LABS: ALT 15 U/L (14-59); AST 16 U/L (15-37); Albumin 2.8 g/dL (3.4-5.0); Alkaline Phosphatase 114 U/L (46-116); Anion Gap 6.5 mmol/L (3-11); BUN 13 mg/dL (7-18); Bilirubin, Total 0.4 mg/dL (0.2-1.0); CO2 28.5 mmol/L (21.0-32.0); CREATININE 0.95 mg/dL (0.55-1.02); Calcium 9.7 mg/dL (8.5-10.1); Chloride 103 mmol/L (98-107); Estimated GFR 58.85 (mL/min/1.73m2); Glucose 249 mg/dL (74-106); Potassium 4.3 mmol/L (3.5-5.1); Sodium 138 mmol/L (136-145); Total Protein 7.1 g/dL (6.4-8.2)
[2020-02-17 08:07] LABS: Bilirubin Negative (Negative); Blood Negative (Negative); Clarity Clear (Clear); Glucose Negative (Negative); Ketones Negative (Negative); Leukocyte Esterase Negative (Negative); Nitrite Negative (Negative); Urobilinogen 0.2 EU/dL (Up TO 0.2)
[2020-02-17 10:54] LABS: C Diff PCR Negative (Negative)
--- NOTE | 2020-02-17 10:55 | IN_ITS ---
Date of service: 02/17/20 Time of Service: 10:55 PT Notes Visit Reasons: [facility] Emergency Department Physical Therapy Initial Evaluation Dates: 02/17/2020 Referring Doctor: Rosalie Barclay MD PT Orders: PT CONSULT: Safety consult for DC. Physical deconditioning; need ambulatory to see if she can go home Precautions: Fall. Standard. Activity as tolerated. Patient Profile/Admitting Diagnosis: Lisa is a 65-year-old female with spinocerebellar ataxia, chronic back pain, type 2 diabetes mellitus, cardiomyopathy, COPD, and perirectal abscesse currently on antibiotics who presented to the ED today 02/17/2020 with diagnosis of failure to thrive at home, vaginally infection, and worsening physical deconditioning. PMHX: Medical History Abdominal aortic aneurysm (11/27/12) Identified 10/31/12 CT abd-pelvis; 4cm; stable 4.1 cm 07/2014 CT, 4.3cm 11/2016, 5.5cm [place] Brennen Nava following; see 04/2016 progress note. 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 Ward Calculus of kidney and ureter Cardiomyopathy Dr Fair, EF 45% Jun 2014 ECHO (h/o much worse) 10/2016 ECHO: EF 40-45% 10/2016 MPI: no acute, but persistent old infarct Carpal tunnel syndrome (08/14/12) resolved s/p b/l release Chronic back pain History of chronic opioids, now none Chronic kidney disease, stage III (moderate) (08/14/12) Cortical atrophy R kidney on CT 07/2014; multiple cysts COPD, mild (07/02/17) PFTs Coronary artery disease involving alatna coronary artery of [place] heart INFERIOR [place] 1996, 100% RCA occlusion; large inf defect on perfusion scan, dr Fair Depressive disorder (08/14/12) Diabetes type 2, uncontrolled 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 Guerra DJD of right shoulder (01/01/13) 12/2012 x-ray severe DJD glenohumeral joint Dr. Guerra; not a surgical candidate for replacement Episode of seizures in July 2012 Esophageal reflux disease (07/24/11) UPPER GI SERIES 11/14/2012, MOD HIATAL HERNIA SEVERE GERD Headache (08/31/13) Hypertension Hypothyroidism Incarcerated umbilical hernia (09/06/15) Marijuana dependence Nausea and vomiting (08/01/14) a. previous history of possible marijuana induced hyperemesis Neurogenic bladder (07/24/11) Does not need to self-cath 11/2016: +Urinary retention [facility] inpt requiring cath; resolved by time of discharge Nicotine dependence Olecranon bursitis, left elbow Other and unspecified hyperlipidemia (08/14/12) Physical deconditioning RLS (restless legs syndrome) Spinal stenosis of lumbar region with neurogenic claudication (12/08/13) 04/13/2013 MRI Lumbar Spine: Facet arthropathy, DJD, L4-5, L5-S1 central spinal and neural foraminal stenosisNeurosurgery referral, but not a surgical candidate; [facility] chronic pain service Chronic Pain [facility] Pain Center consult 10/26/15 [facility] [place] [facility] [place] 03/04/17 (Sanket Sawant MD) 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) Neuro work-up 2010/wchun +Hereditary, 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 Social History/Home Situation: Patient lives alone with son in a private home. She is independent with all ADL performance using a front wheeled walker indoors and outdoors. She states she has a walk-in shower and that she is independent with bathing and dressing activities. Son does laundry, groceries, and meals at home. Sister who lives across from her helps with anything she needs. She did not use oxygen supplementation before. Equipment Owned/DME: Front wheeled walker, single-point cane Subjective: Lisa is seen supine in a stretcher in the ED with family day care provider Viri present. She is teary-eyed and is hopeful that she can home today. She is agreeable with PT conducting mobility assessment to see her level of safety with transfers. She indicates that she had a fight with her sister Steph. She endorses being dizzy upon sitting up on the edge of bed but is able to stand up and with extensive help transfer onto the bedside commode. With appearnace of ACE Morrison to assist with transfers, Lisa brightened up a bit and asked if he was handsome. Objective: General Observation: Obese. Appeared to be highly anxious about current disposition and stressed about ongoing family dynamic. Mental Status: Alert and oriented x 4 Pain: Complains of gluteal area discomfort and knee pain that she did not quantify ROM: Right Upper Extremity: Shoulder Flexion allows up to 80 degrees. Shoulder abduction allows up to 90 degree. Elbow flexion WFL. Wrist flexion WFL. Opening and closing of hand WFL. Left Upper Extremity: Shoulder Flexion allows up to 100 degrees. Shoulder abduction allows up to 100 degrees. Elbow flexion WFL. Wrist flexion WFL. Opening and closing of hand WFL. Right Lower Extremity: Hip flexion 20 degrees past 90 while seated on chair. Hip abduction WFL. Knee flexion WFL. Knee extension -20 degrees. Ankle dorsiflexion WFL. Ankle plantarflexion WFL. Left Lower Extremity: Hip flexion 20 degrees past 90 while seated on chair. Hip abduction WFL. Knee flexion WFL. Knee extension -20 degrees. Ankle dorsiflexion WFL. Ankle plantarflexion WFL. Strength: Right Upper Extremity: Shoulder flexors 3-/5. Shoulder abductors 3-/5. Elbow flexors 4-/5. Elbow extensors 4-/5. [employer] Agent strong. Left Upper Extremity: Shoulder flexors 3-/5. Shoulder abductors 3-/5. Elbow flexors 4-/5. Elbow extensors 4-/5. [employer] Field Agent strong. Right Lower Extremity: Hip flexors 3-/5. Hip abductors 3+/5. Knee flexors 3+/5. Knee extensors 3-/5. Ankle dorsiflexors 3-/5. Ankle plantarflexors 3-/5. Left Lower Extremity: Hip flexors 3-/5. Hip abductors 3+/5. Knee flexors 3+/5. Knee extensors 3-/5. Ankle dorsiflexors 3-/5. Ankle plantarflexors 3-/5. Bed Mobility/Transfers: Sit to supine moderate assist Sit to stand from edge of bed moderate with moderate verbal cueing for hand placement Stand to sit moderate assist with minimal verbal cueing for hand placement Bed to chair moderate assist of PT and minimal assist of TOOL SHAPER SETUP OPERATOR Luke; highly anxious about not being able to move legs as much Chair to bed moderate assist of PT and minimal assist of TOOL SHAPER SETUP OPERATOR Luke; highly anxious about not being able to move legs as much Gait: Deferred. Stating that she does not feel safe with taking any steps Balance: Static Sitting: Good Dynamic Sitting: Fair Static Standing: Poor Dynamic Standing: Poor Assessment: Lisa demonstrates functional mobility decline requiring the assistance of 2 people for all transfer task performance using front-wheeled and moderate verbal cueing for safety, inability to walk and lack of confidence to walk, creased activity tolerance, and increased fall risk due to comorbid conditions listed above. Patient's lack of motivation and her false sense of hope that family members will be there for her 100% of the time to help her with everything has long been limiting any functional mobility gains. She will highly benefit from skilled physical therapy services if she will decide to participate. Patient continues to present with clinical signs and symptoms consistent with current/admitting diagnoses that have resulted to mobility limitations, gait instability, generalized weakness, and impairment of motor control as demonstrated by the following impairment level findings: 1. Decreased strength to B UE/LE major muscle groups 2. Impaired sitting/standing balance 3. Impaired activity tolerance 4. Need for oxygen supplementation at all times Impairments are contributing to the following functional limitations: 1. Dependent bed mobility skills 2. Increased dependence with transfers 3. Inability to safely ambulate without assistive device and physical assistance 4. Increase completion time for mobility ADL performance 5. Increased fall risk 6. Inability to negotiate steps alone safely Goals: N/A. PT consult only. DISCHARGE RECOMMENDATIONS: Lisa will benefit from having a / caregivers as she is not able to perform bed mobility, transfers, and short distance ambulation without help and without an assistive device. Alternatively, her mobility needs may be met with long-term SNF placement as they have ready help for her there with all aspects of ADLs as needed. TREATMENT CODE/TIME: 27398 x 35 minutes beginning at 10:55 AM. Thank you very much for this referral. Alison Onofre PT, DPT, CLT [facility] [place], [place] Medical History Abdominal aortic aneurysm (11/27/12) Identified 10/31/12 CT abd-pelvis; 4cm; stable 4.1 cm 07/2014 CT, 4.3cm 11/2016, 5.5cm 03/04/17 [place] Brennen Nava following; see 04/2016 progress note. 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 Ward Bacteremia due to Gram-positive bacteria Calculus of kidney and ureter Cardiomyopathy Dr Fair, EF 45% Jun 2014 ECHO (h/o much worse) 10/2016 ECHO: EF 40-45% 10/2016 MPI: no acute, but persistent old infarct Carpal tunnel syndrome (08/14/12) resolved s/p b/l release Chronic back pain History of chronic opioids, now none Chronic kidney disease, stage III (moderate) (08/14/12) Cortical atrophy R kidney on CT 07/2014; multiple cysts COPD, mild (07/02/17) PFTs Coronary artery disease involving alatna coronary artery of [place] heart INFERIOR [place] 1996, 100% RCA occlusion; large inf defect on perfusion scan, dr Fair Depressive disorder (08/14/12) Diabetes type 2, uncontrolled 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 Guerra DJD of right shoulder (01/01/13) 12/2012 x-ray severe DJD glenohumeral joint Dr. Guerra; not a surgical candidate for replacement Episode of seizures in July 2012 Esophageal reflux disease (07/24/11) UPPER GI SERIES 11/14/2012, MOD HIATAL HERNIA SEVERE GERD Headache (08/31/13) Hypertension Hypothyroidism Incarcerated umbilical hernia (09/06/15) Marijuana dependence Nausea and vomiting (08/01/14) a. previous history of possible marijuana induced hyperemesis Neurogenic bladder (07/24/11) Does not need to self-cath 11/2016: +Urinary retention [facility] inpt requiring cath; resolved by time of discharge Nicotine dependence Olecranon bursitis, left elbow Other and unspecified hyperlipidemia (08/14/12) Physical deconditioning RLS (restless legs syndrome) Spinal stenosis of lumbar region with neurogenic claudication (12/08/13) 04/13/2013 MRI Lumbar Spine: Facet arthropathy, DJD, L4-5, L5-S1 central spinal and neural foraminal stenosis Neurosurgery referral, but not a surgical candidate [facility] chronic pain service Chronic Pain [facility] Pain Center consult 10/26/15 [facility] [place] 03/04/17 (Sanket Sawant MD) 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) Neuro work-up 2010/wchun +Hereditary, 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
[2020-02-17] MEDS: Fluconazole 150 MG TAB PO (12:11)
--- NOTE | 2020-02-17 12:21 | CMPROGNOTE_ITS ---
- If Service Date Differs Date of service: 02/17/20 Time of Service: 12:21 Care Management Progress Note S/O: RADHA was paged to the ED to meet with Andressa who arrived this morning via [employer]. CM met with Andressa and discussed how things have been going at home. She reported that she has not been able to move around much, but she was able to get to her commode with the help of her sister, Steph. She stated that her and Steph got into an argument last night and she didn't come help her this morning. She was left lying in her own urine, unable to move. CM discussed options with Andressa, including sending referrals to SNF for short term rehab or being admitted to [facility] to work with PT, but she refused and wants to go home. Andressa agreed to me sending referrals to local SNF's for short term rehab, as a back up plan if she is to go home and fail. She does understand that she is not doing well and needs more help, and she states that she needs to stop saying no to help. RADHA sent referrals to [facility] and [facility]. RADHA called HH to determine the frequency of their visits. Per Mari, she has had a visit every day this week. She is being visited by RN, PT and [employer]STER. She also has moderate needs, so an aid will visit as well. Her porter sample case is Richa Stiles, whom RADHA called and left a voicemail regarding this ED visit. RADHA also called Palliative Care and spoke to Cesilia Bragg. Cesilia stated that she could not see her today, but she might have time tomorrow morning, if she is admitted. RADHA advocated to have Dr. Bragg see Andressa at home earlier than her scheduled visit, which they changed to 02/24/20 at 3pm. RADHA also called Elyse Thomas, CCC at [facility], to update her as she is assisting Andressa in the community. RADHA called Steph to discuss how things are going with Andressa from her perspective. Steph stated that she was upset because Andressa is not helping herself, and that Andressa asked her not to come back. She stated that she is using 'tough love' by not helping her as much as she has been. RADHA asked if she would be present at Andressa's home if she was to return today, which Steph responded saying she 'would not encourage her to make bad decisions'. RADHA was empathetic with Steph, as she described the challenges she is facing while attempting to help her sister. CM met with Andressa again, who repeatedly asked to return home. CM requested a PT consult to evaluate her condition, as she would be returning home alone, until her son came home from work. She did work with PT, but was a max 2 assist, micha ble to get out of bed on her own. CM discussed Andressa remaining at [facility] on [address] for continued support from PT to achieve her goals in order to be independent at home, but she again declined and insisted on returning home, even if she would be leaving AMA. After speaking with the provider, Andressa left AMA. CM ordered an RCT w/c van to transport Andressa home and requested a lift assist from [employer] to get Andressa into her home. Chandni called back at the time that Andressa was leaving the building, and Mitch Vila stated that he was refusing to assist. RADHA advocated that Andressa is unable to get into her home on her own, and [facility] does not provide that service. [facility] later assisted Andressa, although RCT waited 30 minutes for the lift assist. Steph called and spoke to CM later, stating that Andressa is agreeable to going to rehab, and she is willing to help her at home until she is accepted at a facility. CM will continue to follow and support Andressa in collaboration with community partners. [facility] called later in the day and declined Andressa. Petr continues to review.
[2020-02-18 08:35] LABS: COVID-19 RT-PCR UVMMC Result Negative (Negative)
--- NOTE | 2020-02-18 17:35 | NUR.NOTE ---
Nursing Note: negative COVID result given over the phone to pt after identity verified. Results given today at 1736.
== END 2020-02-17 12:37 | disposition left against medical advice (07) ==
PROVIDERS: Student in an Organized Health Care Education/Training Program; Emergency Provider Physician Assistant; PCP Nurse Practitioner Adult Health
DX: R62.7 Adult failure to thrive (principal); B37.3 Candidiasis of vulva and vagina; R53.81 Other malaise; Z53.29 Procedure and treatment not carried out because of patient's decision for other reasons; Z03.818 Encounter for observation for suspected exposure to other biological agents ruled out; E11.22 Type 2 diabetes mellitus with diabetic chronic kidney disease; Z79.4 Long term (current) use of insulin; I12.9 Hypertensive chronic kidney disease with stage 1 through stage 4 chronic kidney disease, or unspecified chronic kidney disease; N18.30 Chronic kidney disease, stage 3 unspecified; J44.9 Chronic obstructive pulmonary disease, unspecified
CPT/HCPCS: 36415; 51701; 80053; 87493; 97163; U0003; 81003; 85025

== ENCOUNTER 2020-02-23 17:20 | Outpatient (REF) | payer SELFPAY ==
[2020-02-23 19:34] LABS: Abs Immature Grans 0.04 10^3/uL (0.0-0.06); Absolute Basophil Count 0.05 10^3/uL (0.0-0.2); Absolute Eosinophil Count 0.35 10^3/uL (0.0-0.7); Absolute Lymphocyte Count 1.96 10^3/uL (1.2-3.4); Absolute Monocyte Count 0.51 10^3/uL (0.1-0.8); Absolute Neutrophil Count 5.39 10^3/uL (1.2-6.7); Basophils % 0.6; Eosinophils % 4.2; HCT 41.1 % (36.0-46.0); Immature Grans % 0.5; Lymphocytes % 23.6; MCH 28.4 pg (27.0-33.0); MCHC 31.6 % (32.0-36.0); MCV 89.7 fL (80-95); Monocytes % 6.1; Nucleated RBC 0 %; Platelet Count 250 10^3/uL (130-400); RBC 4.58 10^6/uL (3.93-5.22); RDW 16.2 % (11.7-14.6); RDW-SD 52.4 fL
[2020-02-23 20:11] LABS: Folate 15.3 ng/mL (8.6-20.0); Vitamin B12 362 pg/mL (193-986)
[2020-02-24 17:57] LABS: COVID-19 RT-PCR Result Not Detected ((See Note))
== END 2020-02-23 17:40 ==
LOC: LBN 17:20
PROVIDERS: PCP Nurse Practitioner Adult Health; Visit Provider Family Medicine
DX: K61.1 Rectal abscess (principal); I25.10 Atherosclerotic heart disease of native coronary artery without angina pectoris; E11.49 Type 2 diabetes mellitus with other diabetic neurological complication; I50.23 Acute on chronic systolic (congestive) heart failure; M62.81 Muscle weakness (generalized); E66.9 Obesity, unspecified; Z11.59 Encounter for screening for other viral diseases
CPT/HCPCS: U0003; 82607; 82746; 85025

== ENCOUNTER 2020-03-02 16:21 | Outpatient (REF) | payer SELFPAY ==
[2020-03-03 16:57] LABS: COVID-19 RT-PCR Result Not Detected ((See Note))
== END 2020-03-02 16:41 ==
LOC: LBN 16:21
PROVIDERS: PCP Nurse Practitioner Adult Health; Visit Provider Family Medicine
DX: Z11.59 Encounter for screening for other viral diseases (principal)
CPT/HCPCS: U0003

== ENCOUNTER 2020-03-30 01:57 | Emergency (ER) | payer MEDICARE, MEDICAID, SELFPAY ==
[2020-03-30 01:57] VITALS: BP 137/88; PULSE 87; RESP 16; TEMP 36.4; O2SAT 94
--- NOTE | 2020-03-30 02:00 | DI.RAD_ITS ---
EXAM: XR TOE LT FIFTH CLINICAL HISTORY: trauma. TECHNIQUE: 2D digital imaging was performed. COMPARISON: No exams were available for comparison FINDINGS: BONES: There is an acute fracture through the midshaft of the proximal phalanx of the left 5th toe. The distal fracture is angulated almost 90 degrees laterally. No other fracture or dislocation is i dentified. The fracture does not appear to extend into the joint. No bony destructive lesion is see n. JOINTS: No dislocation present. SOFT TISSUE: There is soft tissue swelling of the 5th toe. IMPRESSION: Acute fracture of the proximal phalanx of the 5th toe as described above. DATA REPOSITORY: RADIATION DOSE DELIVERED:
--- NOTE | 2020-03-30 02:20 | W.ED.GENAD ---
Discharge Plan Disposition Patient Disposition: HOME Condition: Good Discharge Details Clinical Impression: Closed fracture of fifth toe of left foot Primary Care Provider: Mai Castelan ED Provider: Evelio Hooks Reynolds Meds and New Rx's Prescriptions: New cephalexin 500 mg capsule 500 mg PO TID Qty: 14 RF: 0 Continued ezetimibe [Zetia] 10 mg tablet 10 mg PO DAILY Qty: 90 RF: 3 levothyroxine 50 mcg tablet 50 mcg PO DAILY Qty: 90 RF: 3 torsemide 10 mg tablet 20 mg PO DAILY RF: 0 naproxen 250 mg tablet 250 mg PO BID PRNRF: 0 Hold Instructions: Home Medication placed on hold at Doctor's office Ozempic 0.25 mg or 0.5 mg(2 mg/1.5 mL) pen injector 0.25 mg SC QWEEK Qty: 1.5 RF: 1 gabapentin 100 mg capsule See Rx Instructions PO BID Qty: 80 RF: 0 nicotine 10 mg cartridge 1 inh IH 4-6XD PRN (Reason: nicotine cravings) Qty: 168 RF: 1 acetaminophen 500 mg capsule 1,000 mg PO TID Qty: 180 RF: 11 Mucinex 1,200 mg tablet extended release 12hr 1,200 mg PO Q12H PRN (Reason: cold symptoms) Qty: 60 RF: 1 diclofenac sodium [Voltaren] 1 % gel 2 g Topical BID PRN (Reason: elbow pain) Qty: 1 RF: 0 Trapeze See Rx Instructions .ROUTE .COMPLEX Qty: 1 RF: 0 Medical THC 1 misc Inhalation PRN PRNRF: 0 budesonide-formoterol [Symbicort] 10.2 GM HFA aerosol inhaler 2 puff Inhalation BID Qty: 3 RF: 3 finasteride 5 mg tablet 1.25 mg PO DAILY RF: 0 buspirone 30 mg tablet 15 mg PO BID Qty: 90 RF: 3 losartan [Cozaar] 50 mg tablet 50 mg PO DAILY Qty: 90 RF: 3 benzonatate [Tessalon Perles] 100 mg capsule 100 mg PO TID PRN (Reason: cough) Qty: 90 RF: 3 ipratropium bromide 0.03 % spray,non-aerosol 2 spray SANKET TID Qty: 30 RF: 0 (DME) blood sugar diagnostic Strip See Dose Instructions .ROUTE .MEDSUPPLY Qty: 400 RF: 3 (DME) lancets [OneTouch UltraSoft Lancets] [facility] See Dose Instructions .ROUTE .MEDSUPPLY Qty: 400 RF: 3 duloxetine [Cymbalta] 60 mg capsule,delayed release(DR/EC) 60 mg PO BID Qty: 180 RF: 3 pantoprazole 40 mg tablet,delayed release (DR/EC) 40 mg PO DAILY Qty: 90 RF: 3 ascorbic acid (vitamin C) [Vitamin C] 250 mg tablet 250 mg PO BID Qty: 60 RF: 0 ferrous gluconate 324 mg (37.5 mg iron) tablet 324 mg PO BID Qty: 60 RF: 0 Lantus Solostar U-100 Insulin 100 unit/mL (3 mL) insulin pen 80 unit Sub-Q HS Qty: 220 RF: 3 insulin aspart U-100 [Novolog Flexpen U-100 Insulin] 100 unit/mL (3 mL) insulin pen See Rx Instructions SC AC Qty: 80 RF: 3 (DME) pen needle, diabetic [BD Ultra-Fine Carmela Pen Needle] 32 gauge x 5/32 needle 1 ea Sub-Q 6 times a day Qty: 540 RF: 6 simvastatin 40 mg tablet 40 mg PO DAILY Qty: 90 RF: 3 albuterol sulfate [ProAir HFA] 90 mcg/actuation HFA aerosol inhaler 1 - 2 puff Inhalation Q4H PRN Qty: 18 RF: 3 miscellaneous medical supply [facility] RF: 0 metoprolol tartrate 25 mg tablet 25 mg PO BID RF: 0 diazepam [Valium] 5 mg tablet 5 mg PO BID PRNQty: 20 RF: 0 docusate sodium [Colace] 100 mg capsule 100 mg PO BID Qty: 60 RF: 0 ipratropium-albuterol 0.5 mg-3 mg(2.5 mg base)/3 mL solution for nebulization 3 ml IH Q4H PRN (Reason: shortness of breath or wheezing) Qty: 180 RF: 0 Discharge Instructions Additional Instructions: The little toe does have a fracture. Treatment is to keep it take to the fourth toe. Should always have a piece of gauze between the toes to prevent skin breakdown. Starting antibiotics to decrease risk of infection given history of diabetes and skin injury. Would follow-up with primary care or podiatry next week for recheck. Return to ED if problems. Referrals: Mai Castelan, [employer] [Primary Care Provider] - Curt Ward DPM [[facility] STAFF PHYSICIAN] - Medical Decision Making Patient with left little toe injury, fracture versus dislocation. Some bleeding related to skin abrasions no true laceration. Digital block done prior to x-ray. X-ray shows fracture with angulation through the proximal phalanx of the little toe. No evidence of dislocation or fracture elsewhere. On return from x-ray little toe was reduced with direct manipulation. Little toe was connie taped to the fourth toe with 2 x 2 gauze between toes to prevent maceration of skin. Post reduction x-rays were not obtained as they would not impact or change further manipulation. Toe is now well aligned and continues to have good capillary refill. Patient will be placed in a postop shoe. Because of the skin injury and the fact that she is diabetic we will place her on cephalexin to try to prevent infectious complications. She has been seen by podiatry, Dr. Ward, in the past. Will refer her to them next week for recheck. HPI General Mode of arrival: EMS. Date/Time Provider Initiated Documentation: 03/30/20 02:14. Information obtained by: patient, EMS and RN notes reviewed. HPI Narrative: Patient presents to ED with left little toe injury status post fall at home. Patient has history of falling. She is not exactly sure what she caught her toe on. She denies pain elsewhere. She did not have syncope. She has no chest pain. Her breathing is baseline. She thinks she struck her head but she had no loss of consciousness and she is not on blood thinners. She denies neck pain. She denies any other injury other than the little toe. Related Data Home Medications Medication Instructions Recorded Confirmed Medical Thc 1 misc INHALATION PRN PRN 04/06/14 11/09/19 budesonide-formoterol [Symbicort] 2 puff INHALATION BID #3 inhaler 01/28/17 02/17/20 nicotine 10 mg inhalation cartridge 1 inh IH 4-6XD PRN #168 each 10/30/18 02/17/20 finasteride 5 mg tablet 1.25 mg PO DAILY tab 02/09/19 02/17/20 ezetimibe 10 mg tablet 10 mg PO DAILY #90 tab-cap 03/03/19 02/17/20 levothyroxine 50 mcg tablet 50 mcg PO DAILY #90 tab-cap 03/03/19 02/17/20 buspirone 30 mg tablet 15 mg PO BID #90 tab 06/11/19 02/17/20 losartan 50 mg tablet 50 mg PO DAILY #90 tab 06/11/19 02/17/20 benzonatate 100 mg capsule 100 mg PO TID PRN #90 cap 07/02/19 02/17/20 ipratropium bromide 0.03 % nasal 2 spray SANKET TID #30 ml 07/25/19 02/17/20 spray acetaminophen 500 mg capsule 1,000 mg PO TID #180 cap 08/17/19 02/17/20 guaifenesin 1,200 mg tablet, 1,200 mg PO Q12H PRN #60 tab 08/17/19 02/17/20 extended release 12 hr blood sugar diagnostic #400 each 08/21/19 11/09/19 lancets #400 each 08/21/19 11/09/19 docusate sodium [Colace] 100 mg PO BID #60 cap 09/05/19 02/17/20 ipratropium-albuterol 3 ml IH Q4H PRN #180 ml 09/05/19 02/17/20 duloxetine 60 mg capsule,delayed 60 mg PO BID #180 tab-cap 09/07/19 02/17/20 release pantoprazole 40 mg tablet,delayed 40 mg PO DAILY #90 tab-cap 09/07/19 02/17/20 release ascorbic acid (vitamin C) 250 mg 250 mg PO BID #60 tab 09/14/19 02/17/20 tablet ferrous gluconate 324 mg (37.5 mg 324 mg PO BID #60 tab 09/14/19 02/17/20 iron) tablet naproxen 250 mg tablet 250 mg PO BID PRN tab 09/25/19 02/17/20 insulin glargine 100 unit/mL (3 80 unit SUB-Q HS #220 ml 10/07/19 02/17/20 mL) subcutaneous pen insulin aspart U-100 100 unit/mL See Rx Instructions SC AC #80 ml 10/09/19 02/17/20 (3 mL) subcutaneous pen pen needle, diabetic 32 gauge x #540 ndl 10/16/19 11/09/19 simvastatin 40 mg tablet 40 mg PO DAILY #90 tab 10/16/19 02/17/20 torsemide 10 mg tablet 20 mg PO DAILY tab-cap 11/09/19 02/17/20 diclofenac sodium 1 % topical gel 2 g TOPICAL BID PRN #1 tube 12/23/19 02/17/20 albuterol sulfate 90 mcg/actuation 1 - 2 puff INHALATION Q4H PRN #18 12/28/19 02/17/20 aerosol inhaler miscellaneous medical supply each 01/07/20 Trapeze See Rx Instructions .ROUTE 01/08/20 01/08/20 .COMPLEX #1 unit metoprolol tartrate 25 mg PO BID 01/23/20 02/17/20 diazepam [Valium] 5 mg PO BID PRN #20 tab 02/09/20 02/17/20 gabapentin 100 mg capsule See Rx Instructions PO BID #80 cap 02/10/20 02/17/20 semaglutide 0.25 mg SC QWEEK #1.5 ml 02/10/20 02/17/20 cephalexin 500 mg PO TID #14 cap 03/30/20 Previous Rx's Medication Instructions Recorded budesonide-formoterol [Symbicort] 2 puff INHALATION BID #3 inhaler 01/28/17 nicotine 10 mg inhalation cartridge 1 inh IH 4-6XD PRN #168 each 10/30/18 ezetimibe 10 mg tablet 10 mg PO DAILY #90 tab-cap 03/03/19 levothyroxine 50 mcg tablet 50 mcg PO DAILY #90 tab-cap 03/03/19 buspirone 30 mg tablet 15 mg PO BID #90 tab 06/11/19 losartan 50 mg tablet 50 mg PO DAILY #90 tab 06/11/19 benzonatate 100 mg capsule 100 mg PO TID PRN #90 cap 07/02/19 ipratropium bromide 0.03 % nasal 2 spray SANKET TID #30 ml 07/25/19 spray acetaminophen 500 mg capsule 1,000 mg PO TID #180 cap 08/17/19 guaifenesin 1,200 mg tablet, 1,200 mg PO Q12H PRN #60 tab 08/17/19 extended release 12 hr blood sugar diagnostic #400 each 08/21/19 lancets #400 each 08/21/19 docusate sodium [Colace] 100 mg PO BID #60 cap 09/05/19 ipratropium-albuterol 3 ml IH Q4H PRN #180 ml 09/05/19 duloxetine 60 mg capsule,delayed 60 mg PO BID #180 tab-cap 09/07/19 release pantoprazole 40 mg tablet,delayed 40 mg PO DAILY #90 tab-cap 09/07/19 release ascorbic acid (vitamin C) 250 mg 250 mg PO BID #60 tab 09/14/19 tablet ferrous gluconate 324 mg (37.5 mg 324 mg PO BID #60 tab 09/14/19 iron) tablet insulin glargine 100 unit/mL (3 80 unit SUB-Q HS #220 ml 10/07/19 mL) subcutaneous pen insulin aspart U-100 100 unit/mL See Rx Instructions SC AC #80 ml 10/09/19 (3 mL) subcutaneous pen pen needle, diabetic 32 gauge x #540 ndl 10/16/19 simvastatin 40 mg tablet 40 mg PO DAILY #90 tab 10/16/19 diclofenac sodium 1 % topical gel 2 g TOPICAL BID PRN #1 tube 12/23/19 albuterol sulfate 90 mcg/actuation 1 - 2 puff INHALATION Q4H PRN #18 12/28/19 aerosol inhaler gm Trapeze See Rx Instructions .ROUTE 01/08/20 .COMPLEX #1 unit diazepam [Valium] 5 mg PO BID PRN #20 tab 02/09/20 gabapentin 100 mg capsule See Rx Instructions PO BID #80 cap 02/10/20 semaglutide 0.25 mg SC QWEEK #1.5 ml 02/10/20 cephalexin 500 mg PO TID #14 cap 03/30/20 Allergies Allergy/AdvReac Type Severity Reaction Status Date / Time bupropion HCl Allergy Severe seizures Verified 03/30/20 02:07 [From Wellbutrin] carvedilol [From Coreg] Allergy Mild Itching Verified 03/30/20 02:07 morphine AdvReac Unknown nausea Verified 03/30/20 02:07 General Stated Complaint: Orthopedic DINESH: 4 Review of Systems Constitutional Constitutional: Denies fever(s), Reports frequent falls and Denies headache(s) ENT Ears, Nose, Mouth, and Throat: Denies headache(s) Cardiovascular Cardiovascular: Denies chest pain, Denies syncope and Denies dyspnea Respiratory Respiratory: Denies dyspnea Musculoskeletal Musculoskeletal: Denies numbness Neurologic Neurologic: Denies syncope, Reports frequent falls, Denies headache(s), Denies localized weakness and Denies numbness [facility] Medical History Abdominal aortic aneurysm (11/27/12) Identified 10/31/12 CT abd-pelvis; 4cm; stable 4.1 cm 07/2014 CT, 4.3cm 11/2016, 5.5cm [place]17 [place] [place] Brennen Nava following; see 04/2016 progress note. 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 Guerra DJD of right shoulder (01/01/13) 12/2012 x-ray severe DJD glenohumeral joint Dr. Guerra; not a surgical candidate for replacement Episode of seizures in July 2012 Esophageal reflux disease (07/24/11) UPPER GI SERIES 11/14/2012, MOD HIATAL HERNIA SEVERE GERD Headache (08/31/13) Hypertension Hypothyroidism Incarcerated umbilical hernia (09/06/15) Marijuana dependence Nausea and vomiting (08/01/14) a. previous history of possible marijuana induced hyperemesis Neurogenic bladder (07/24/11) Does not need to self-cath 11/2016: +Urinary retention [facility] inpt requiring cath; resolved by time of discharge Nicotine dependence Olecranon bursitis, left elbow Other and unspecified hyperlipidemia (08/14/12) Physical deconditioning RLS (restless legs syndrome) Spinal stenosis of lumbar region with neurogenic claudication (12/08/13) 04/13/2013 MRI Lumbar Spine: Facet arthropathy, DJD, L4-5, L5-S1 central spinal and neural foraminal stenosis Neurosurgery referral, but not a surgical candidate [facility] chronic pain service Chronic Pain [facility] Pain Center consult 10[facility]26/15 [facility] [place] [facility] [place] 03/04/17 (Sanket Sawant MD) 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) Neuro work-up wchun +Hereditary, 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 Family History Mother , at 78yo from dementia Dementia Father , MVA (truck) accident at 45yo No problems noted. Sister Thyroid cancer Other Diabetes FH: mental illness Social History Smoking/Tobacco Use Status: Current every day Tobacco Type: cigarettes Smoking risk assessment performed?: Yes Alcohol Intake: never Drug use: Daily Substance use type: marijuana Adopted: No Foster care: No Housing: house Number of Children: 1 Communication Needs: Corrective Lenses Education Level: high school Details: didn't sophomore year Do you need help understanding health information?: Never 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 Pets and animals: Yes Current gender identity: female What is your relationship status?: Panel score (0-1 are the most socially isolated patients): 0 What type of physical activity do you participate in: none Special eliana needs: No Working smoke detector in home: Yes Fire extinguisher in home: Yes Do you feel safe at home: No Do you feel safe in your relationship?: No Exam Narrative Exam Narrative: Const: Obese female in NAD. HEENT: NC/AT. Normal facial exam. Neck: Supple. Trachea midline. No c-spine tenderness. Lungs: Normal respiratory effort. Cor: Good radial pulses. Neuro: A+O x 3. Normal speech, mentation. Cranial nerves II - XII grossly intact. No gross motor or sensory deficit. Ext: Normal ROM without pain of large joints. Left little toe pointing laterally. Small skin abrasions around toe, no actual laceration. Course Vital Signs Vital signs: Vital Signs Temperature 97.5 F L 03/30/20 01:57 Pulse 87 03/30/20 01:57 Respiratory Rate 16 03/30/20 01:57 Blood Pressure 137/88 03/30/20 01:57 Pulse Oximetry 94 03/30/20 01:57 Temperature 97.5 F L 03/30/20 01:57 Pulse 87 03/30/20 01:57 Respiratory Rate 16 03/30/20 01:57 Respiratory Effort Non-Labored 03/30/20 02:08 Blood Pressure 137/88 03/30/20 01:57 Blood Pressure Position Supine 03/30/20 01:57 Pulse Oximetry 94 03/30/20 01:57 Oxygen Delivery Method Room Air 03/30/20 01:57 Oxygen Flow Rate 0 03/30/20 01:57 Pain Level 3 03/30/20 01:57 Procedures Nerve Block Nerve Block 1: Time out performed: Yes Local Anesthetic: Lidocaine 2% Amount of anesthesia used (mL): 3 Side: left Nerve Blocks: digital Procedure Successful: Yes Patient Tolerated Procedure: well Complications: none Orthopedic Fracture Reduction Fracture #1: Time Out Performed: Yes Side: left Fracture Reduction Location: toe Analgesia: digital block Technique: direct manipulation Post-reduction neuro exam: other (digital block in place and toe connie taped; unable to ascertain) Post-reduction vascular exam: intact Splint Applied: Yes (connie tape/post op shoe) Patient Tolerated Procedure: well
[2020-03-30] MEDS: Lidocaine 2% Multi-Dose 50 ML VIAL IJ (02:30)
--- NOTE | 2020-03-30 02:46 | DI.VRAD_ITS ---
PROCEDURE INFORMATION: Exam: XR Left Toe(s) Exam date and time: 03/30/2020 2:37 AM Age: 65 years old Clinical indication: Injury or trauma; Other: Hit toe; Toes; Left lesser toe; Severity of dislocation not specified; Injury details: Trauma to left 5th toe TECHNIQUE: Imaging protocol: XR Left toes. Views: Minimum 2 views. COMPARISON: No relevant prior studies available. FINDINGS: Bones/joints: Fracture of the left 5th toe proximal phalanx. This is a fracture across the distal diametaphysis of the proximal phalanx. There is lateral angulation approximately 90 degrees. No definable articular involvement. There is also dorsal angulation approximately 80 degrees. Soft tissues: Normal. IMPRESSION: Fifth toe proximal phalanx fracture with dorsal and lateral significant angulation. Dictated and Authenticated by: Rocky Islas MD. Ordering:ROME Fraser MD
[2020-03-30] MEDS: Cephalexin 500 MG CAP PO (03:31)
[2020-03-30 03:50] VITALS: BP 156/85; PULSE 89; RESP 16; O2SAT 96
== END 2020-03-30 04:32 | disposition home or self-care (01) ==
PROVIDERS: Emergency Provider Emergency Medicine; PCP Nurse Practitioner Adult Health
DX: S92.512A Displaced fracture of proximal phalanx of left lesser toe(s), initial encounter for closed fracture (principal); S90.415A Abrasion, left lesser toe(s), initial encounter; W19.XXXA Unspecified fall, initial encounter; E11.22 Type 2 diabetes mellitus with diabetic chronic kidney disease; Z79.4 Long term (current) use of insulin; I12.9 Hypertensive chronic kidney disease with stage 1 through stage 4 chronic kidney disease, or unspecified chronic kidney disease; N18.30 Chronic kidney disease, stage 3 unspecified; J44.9 Chronic obstructive pulmonary disease, unspecified; F17.210 Nicotine dependence, cigarettes, uncomplicated
CPT/HCPCS: 28510; 73660

== ENCOUNTER 2020-04-27 11:23 | Outpatient (REF) | payer MEDICARE, MEDICAID, SELFPAY ==
[2020-04-27 12:14] LABS: Hemoglobin A1C 9.1 % (<5.7)
[2020-04-27 12:23] LABS: ALT 17 U/L (14-59); AST 14 U/L (15-37); Albumin 3.6 g/dL (3.4-5.0); Alkaline Phosphatase 105 U/L (46-116); Anion Gap 12.4 mmol/L (3-11); BUN 17 mg/dL (7-18); Bilirubin, Total 0.3 mg/dL (0.2-1.0); CO2 23.6 mmol/L (21.0-32.0); CREATININE 1.39 mg/dL (0.55-1.02); Calcium 9.3 mg/dL (8.5-10.1); Calculated LDL 160 mg/dL (<100); Chloride 104 mmol/L (98-107); Cholesterol 263 mg/dL (<200); Estimated GFR 37.93 (mL/min/1.73m2); Glucose 212 mg/dL (74-106); HDL Cholesterol 44 mg/dL (40-60); Potassium 4.2 mmol/L (3.5-5.1); Sodium 140 mmol/L (136-145); TSH (W/Ref FT4) 2.12 uIU/mL (0.36-3.74); Total Protein 6.7 g/dL (6.4-8.2); Triglyceride 296 mg/dL (<150)
== END 2020-04-27 11:43 ==
LOC: LBN 11:23
PROVIDERS: PCP Nurse Practitioner Adult Health; Visit Provider Nurse Practitioner Adult Health
DX: E11.65 Type 2 diabetes mellitus with hyperglycemia (principal); R63.4 Abnormal weight loss; I50.23 Acute on chronic systolic (congestive) heart failure; E66.9 Obesity, unspecified
CPT/HCPCS: 80053; 80061; 83036; 84443

== ENCOUNTER 2020-08-17 12:47 | Outpatient (REF) | payer MEDICARE, MEDICAID, SELFPAY ==
[2020-08-17 15:45] LABS: HCT 44.3 % (36.0-46.0); MCH 27.9 pg (27.0-33.0); MCHC 31.6 % (32.0-36.0); MCV 88.4 fL (80-95); MPV 12.5 fL (8.0-11.0); Platelet Count 187 10^3/uL (130-400); RBC 5.01 10^6/uL (3.93-5.22); RDW 15.3 % (11.7-14.6); RDW-SD 49.3 fL; WBC 7.58 10^3/uL (4.4-10.8)
[2020-08-17 15:50] LABS: ESR 25 mm//hr (0-30)
[2020-08-17 16:00] LABS: Hemoglobin A1C 9.6 % (<5.7)
[2020-08-17 16:02] LABS: Anion Gap 10.7 mmol/L (3-11); BUN 29 mg/dL (7-18); C-Reactive Protein 1.01 mg/dL (0.0-0.3); CO2 25.3 mmol/L (21.0-32.0); Chloride 101 mmol/L (98-107); Estimated GFR 55.47 (mL/min/1.73m2); Glucose 343 mg/dL (74-106); Potassium 4.7 mmol/L (3.5-5.1); Sodium 137 mmol/L (136-145)
== END 2020-08-17 12:48 | disposition home or self-care (01) ==
LOC: LBN 12:47
PROVIDERS: PCP Nurse Practitioner Adult Health; Visit Provider Nurse Practitioner Adult Health
DX: E11.49 Type 2 diabetes mellitus with other diabetic neurological complication (principal); E11.65 Type 2 diabetes mellitus with hyperglycemia; M54.9 Dorsalgia, unspecified; G89.29 Other chronic pain; M48.062 Spinal stenosis, lumbar region with neurogenic claudication; R29.6 Repeated falls
CPT/HCPCS: 80048; 85027; 85652; 83036; 86140

== ENCOUNTER 2021-02-22 16:41 | Emergency (ER) | payer MEDICARE, MEDICAID, SELFPAY ==
[2021-02-22 16:47] VITALS: BP 146/75; PULSE 120; RESP 22; TEMP 36.9; O2SAT 96
--- NOTE | 2021-02-22 17:00 | DI.RAD_ITS ---
Exam(s) XR FOOT RT COMPLETE EXAM: XR FOOT RT COMPLETE CLINICAL HISTORY: pain, redness TECHNIQUE: COMPARISON: CR,XR XR TOE LT FIFTH from 03/30/2020 FINDINGS: Three views were obtained. No prior radiographs available for comparison. There are apparent old he aled fractures of the 2nd through 4th metatarsals. There are fixation pins in the 3rd and 4th metata rsals. Question faint lucency surrounding fixation pin in the diaphysis and proximal metaphysis of t he 4th metatarsal, loosening or infection not excluded on the basis of this examination. Distal aspect of this fixation pin of the 4th metatarsal also projects into the base of the proximal phalanx of the 4th toe, where a well-corticated lucency surrounds a, this presumably represents a chr onic process. Severe degenerative change of the midfoot noted. IMPRESSION: Possible loosening or infection of 4th metatarsal fixation pin as described above. Please correlate clinically. RADIATION DOSE DELIVERED: Total DLP
--- NOTE | 2021-02-22 17:11 | W.ED.GENAD ---
Discharge Plan Disposition Patient Disposition: HOME Condition: Stable Discharge Details Clinical Impression: Foot pain, Cellulitis of foot Primary Care Provider: Mai Castelan ED Provider: Mitch Beck [place] Meds and New Rx's Prescriptions: New clindamycin HCl 150 mg capsule 450 mg PO TID 7 Days Qty: 63 RF: 0 amoxicillin-pot clavulanate [Augmentin] 875-125 mg tablet 1 tab PO BID Qty: 14 RF: 0 gabapentin 100 mg capsule 100 mg PO TID PRN (Reason: pain) Qty: 20 RF: 0 Continued acetaminophen 500 mg capsule 1,000 mg PO TID Qty: 180 RF: 11 mupirocin 2 % ointment 1 applic topical TID Qty: 15 RF: 0 Ozempic 0.25 mg or 0.5 mg(2 mg/1.5 mL) pen injector 0.5 mg subcut QWEEK Qty: 1.5 RF: 1 Tresiba FlexTouch U-200 200 unit/mL (3 mL) insulin pen 80 unit subcut DAILY Qty: 12 RF: 11 nicotine 10 mg cartridge 1 inh IH 4-6XD PRN (Reason: nicotine cravings) Qty: 168 RF: 1 Trapeze See Rx Instructions .ROUTE .COMPLEX Qty: 1 RF: 0 Medical THC 1 misc Inhalation PRN PRNRF: 0 budesonide-formoterol [Symbicort] 10.2 GM HFA aerosol inhaler 2 puff Inhalation BID Qty: 3 RF: 3 duloxetine [Cymbalta] 60 mg capsule,delayed release(DR/EC) 60 mg PO BID Qty: 180 RF: 3 ascorbic acid (vitamin C) [Vitamin C] 250 mg tablet 250 mg PO BID Qty: 60 RF: 0 ferrous gluconate 324 mg (37.5 mg iron) tablet 324 mg PO BID Qty: 60 RF: 0 insulin aspart U-100 [Novolog Flexpen U-100 Insulin] 100 unit/mL (3 mL) insulin pen See Rx Instructions SC AC Qty: 80 RF: 3 albuterol sulfate [ProAir HFA] 90 mcg/actuation HFA aerosol inhaler 1 - 2 puff Inhalation Q4H PRN Qty: 18 RF: 3 miscellaneous medical supply Misc MC RF: 0 torsemide 10 mg tablet 10 mg PO .daily in AM Qty: 90 RF: 3 (DME) hospital bed See Rx Instructions .Route .MEDSUPPLY Qty: 1 RF: 0 (DME) wheelchair See Rx Instructions .Route .MEDSUPPLY Qty: 1 RF: 0 (DME) commode See Rx Instructions .Route .MEDSUPPLY Qty: 1 RF: 0 ezetimibe [Zetia] 10 mg tablet 10 mg PO DAILY Qty: 90 RF: 3 levothyroxine 50 mcg tablet 50 mcg PO DAILY Qty: 90 RF: 3 losartan [Cozaar] 50 mg tablet 50 mg PO DAILY Qty: 90 RF: 3 pantoprazole 40 mg tablet,delayed release (DR/EC) 40 mg PO DAILY Qty: 90 RF: 3 (DME) blood sugar diagnostic Strip See Dose Instructions .ROUTE .MEDSUPPLY Qty: 400 RF: 3 (DME) lancets [OneTouch UltraSoft Lancets] Misc See Dose Instructions .ROUTE .MEDSUPPLY Qty: 400 RF: 3 (DME) Novofine Autocover 30 gauge x 1/3 needle See Rx Instructions .ROUTE .MEDSUPPLY Qty: 360 RF: 1 gabapentin 100 mg capsule 100 - 200 mg PO TID MDD 800mg Qty: 180 RF: 3 simvastatin 40 mg tablet 40 mg PO DAILY Qty: 90 RF: 3 metoprolol succinate 25 mg tablet extended release 24 hr 25 mg PO .daily at bedtime Qty: 90 RF: 3 naproxen 375 mg tablet 375 mg PO BID Qty: 20 RF: 0 docusate sodium [Colace] 100 mg capsule 100 mg PO BID Qty: 60 RF: 0 ipratropium-albuterol 0.5 mg-3 mg(2.5 mg base)/3 mL solution for nebulization 3 ml IH Q4H PRN (Reason: shortness of breath or wheezing) Qty: 180 RF: 0 Discharge Instructions Additional Instructions: Your xray did not show any new broken bones you are being treated for a foot infection with antibiotics follow up with your primary care provider within a week return to the emergency department for severe worsening pain, fevers or if you feel more ill return to the emergency department Medical Decision Making 66 yo female with hx of recurrent falls and uses a wheel chair primarily now, t2dm, ckd, who comes in with right foot pain. She states she struck her right foot on her wheel chair yesterday and has had increased pain and redness of the distal right foot. She denies fevers or chills. Her right distal foot has a cursted abrasion on the dorsal foot about 2cm in diameter. Has 2cm surrounding erythema, normal sensation on exam, no calf tenderness and leg is not diffusely swollen. Given her pain and trauma will xray to evalaute for fracture and concern for diabetic foot infection will obtain labs including cbc, cmp, esr, crp. No tunneling so unlikely osteo labs show glucose over 500, insulin ordered here, normal anion gap so unlikely dka. Xray shows prior fractures that are healed including lisfranc injury that is old. Lucency around a pin in 4th metatarsal and could be loosening or infection. no tunneling so doubt osteo or surgical site infection. I discussed findings with the patient and recommended admission for iv antibiotics and monitoring and possible mri. Patient has capacity to make her own decisions and understands her foot could get worse and potential for amputation if the infection worsens and is willing to accept these risks. She doesn't want to be in a hospital at the present time. I will start her on augmentin and given her being on ben inhibitor will avoic bactrim and start clindamycin. She requested neurontin for pain as she states this has helped in the past. Will d/c and have her f/u with pcp and return precautions given and advised to monitor her blood sugars at home and recheck with pcp Differential Diagnosis Differential Diagnosis: contusion, fracture, sprain, cellulitis Medical Records Medical records reviewed: Yes I reviewed the patient's medical records. Imaging Data Radiologic Study: Attestation: I personally reviewed and interpreted this imaging study as follows: Imaging: X-Ray Radiologist's impression: IMPRESSION: 1. Healed fractures, 2nd-4th metatarsals. 2. Prior Lisfranc injury. 3. Severe arthropathy across the tarsometatarsal joints. 4. Lucency around the long pin in the 4th metatarsal. Loosening or infection considered. 5. Chronic pressure erosion at the 4th proximal phalanx. Lab Data Lab results reviewed: Yes I reviewed the patient's lab results. HPI General Mode of arrival: EMS. Date/Time Provider Initiated Documentation: 02/22/21 16:52. Limitations to Documentation: no limitations. Information obtained by: patient. History of Present Illness 66 year old F presents to the emergency department with the chief complaint of right foot pain, described as moderate, Quality is described as aching, Patient reports no radiation. and it has been constant. No relieving factors improve symptom(s), No exacerbating factors reported . Patient did receive the following treatments prior to arrival, none Related Data Home Medications Medication Instructions Recorded Confirmed Medical Thc 1 misc INHALATION PRN PRN 04/06/14 08/23/20 budesonide-formoterol [Symbicort] 2 puff INHALATION BID #3 inhaler 01/28/17 08/23/20 nicotine 10 mg inhalation cartridge 1 inh IH 4-6XD PRN #168 each 10/30/18 08/23/20 docusate sodium [Colace] 100 mg PO BID #60 cap 09/05/19 08/23/20 ipratropium-albuterol 3 ml IH Q4H PRN #180 ml 09/05/19 08/23/20 duloxetine 60 mg capsule,delayed 60 mg PO BID #180 tab-cap 09/07/19 08/23/20 release ascorbic acid (vitamin C) 250 mg 250 mg PO BID #60 tab 09/14/19 08/23/20 tablet ferrous gluconate 324 mg (37.5 mg 324 mg PO BID #60 tab 09/14/19 08/23/20 iron) tablet insulin aspart U-100 100 unit/mL See Rx Instructions SC AC #80 ml 10/09/19 08/23/20 (3 mL) subcutaneous pen albuterol sulfate 90 mcg/actuation 1 - 2 puff INHALATION Q4H PRN #18 12/28/19 08/23/20 aerosol inhaler miscellaneous medical supply each 01/07/20 08/23/20 Parase See Rx Instructions .ROUTE 01/08/20 08/23/20 .COMPLEX #1 unit torsemide 10 mg tablet 10 mg PO .daily in AM #90 tab-cap 04/12/20 08/23/20 acetaminophen 500 mg capsule 1,000 mg PO TID #180 cap 04/19/20 08/23/20 commode #1 ea 06/07/20 08/23/20 hospital bed #1 ea 06/07/20 08/23/20 wheelchair #1 ea 06/07/20 08/23/20 ezetimibe 10 mg tablet 10 mg PO DAILY #90 tab-cap 07/14/20 08/23/20 levothyroxine 50 mcg tablet 50 mcg PO DAILY #90 tab-cap 07/26/20 08/23/20 losartan 50 mg tablet 50 mg PO DAILY #90 tab 09/09/20 pantoprazole 40 mg tablet,delayed 40 mg PO DAILY #90 tab-cap 09/09/20 release blood sugar diagnostic #400 each 11/03/20 lancets #400 each 11/03/20 pen needle, diabetic, safety 30 #360 ea 11/23/20 gauge x 1/3 gabapentin 100 mg capsule 100 - 200 mg PO TID #180 cap MDD 11/25/20 800mg simvastatin 40 mg tablet 40 mg PO DAILY #90 tab 11/25/20 mupirocin 2 % topical ointment 1 applic TOPICAL TID #15 g 01/04/21 01/04/21 semaglutide 0.5 mg SUBCUT QWEEK #1.5 ml 01/04/21 01/04/21 insulin degludec 200 unit/mL (3 80 unit SUBCUT DAILY #12 ml 01/06/21 01/06/21 mL) subcutaneous pen metoprolol succinate 25 mg 25 mg PO .daily at bedtime #90 tab 02/09/21 tablet,extended release 24 hr naproxen 375 mg tablet 375 mg PO BID #20 tab 02/13/21 amoxicillin-pot clavulanate 1 tab PO BID #14 tab 02/22/21 [Augmentin] clindamycin HCl 450 mg PO TID 7 Days #63 cap 02/22/21 gabapentin 100 mg PO TID PRN #20 cap 02/22/21 Previous Rx's Medication Instructions Recorded budesonide-formoterol [Symbicort] 2 puff INHALATION BID #3 inhaler 01/28/17 nicotine 10 mg inhalation cartridge 1 inh IH 4-6XD PRN #168 each 10/30/18 docusate sodium [Colace] 100 mg PO BID #60 cap 09/05/19 ipratropium-albuterol 3 ml IH Q4H PRN #180 ml 09/05/19 duloxetine 60 mg capsule,delayed 60 mg PO BID #180 tab-cap 09/07/19 release ascorbic acid (vitamin C) 250 mg 250 mg PO BID #60 tab 05/04/20 tablet ferrous gluconate 324 mg (37.5 mg 324 mg PO BID #60 tab 09/14/19 iron) tablet insulin aspart U-100 100 unit/mL See Rx Instructions SC AC #80 ml 10/09/19 (3 mL) subcutaneous pen albuterol sulfate 90 mcg/actuation 1 - 2 puff INHALATION Q4H PRN #18 12/28/19 aerosol inhaler gm Trapeze See Rx Instructions .ROUTE 01/08/20 .COMPLEX #1 unit torsemide 10 mg tablet 10 mg PO .daily in AM #90 tab-cap 04/12/20 acetaminophen 500 mg capsule 1,000 mg PO TID #180 cap 04/19/20 commode #1 ea 06/07/20 hospital bed #1 ea 06/07/20 wheelchair #1 ea 06/07/20 ezetimibe 10 mg tablet 10 mg PO DAILY #90 tab-cap 07/14/20 levothyroxine 50 mcg tablet 50 mcg PO DAILY #90 tab-cap 07/26/20 losartan 50 mg tablet 50 mg PO DAILY #90 tab 09/09/20 pantoprazole 40 mg tablet,delayed 40 mg PO DAILY #90 tab-cap 09/09/20 release blood sugar diagnostic #400 each 11/03/20 lancets #400 each 11/03/20 pen needle, diabetic, safety 30 #360 ea 11/23/20 gauge x 1/3 gabapentin 100 mg capsule 100 - 200 mg PO TID #180 cap MDD 11/25/20 800mg simvastatin 40 mg tablet 40 mg PO DAILY #90 tab 11/25/20 mupirocin 2 % topical ointment 1 applic TOPICAL TID #15 g 01/04/21 semaglutide 0.5 mg SUBCUT QWEEK #1.5 ml 01/04/21 insulin degludec 200 unit/mL (3 80 unit SUBCUT DAILY #12 ml 01/06/21 mL) subcutaneous pen metoprolol succinate 25 mg 25 mg PO .daily at bedtime #90 tab 02/09/21 tablet,extended release 24 hr naproxen 375 mg tablet 375 mg PO BID #20 tab 02/13/21 amoxicillin-pot clavulanate 1 tab PO BID #14 tab 02/22/21 [Augmentin] clindamycin HCl 450 mg PO TID 7 Days #63 cap 02/22/21 gabapentin 100 mg PO TID PRN #20 cap 02/22/21 Allergies Allergy/AdvReac Type Severity Reaction Status Date / Time bupropion HCl Allergy Severe seizures Verified 01/04/21 13:31 [From Wellbutrin] carvedilol [From Coreg] Allergy Mild Itching Verified 01/04/21 13:31 morphine AdvReac Unknown nausea Verified 01/04/21 13:31 General Stated Complaint: Orthopedic DINESH: 4 Review of Systems All systems reviewed & are unremarkable except as noted in HPI and below Constitutional Constitutional: Denies chills, Denies fever(s) and Denies weakness Cardiovascular Cardiovascular: Denies chest pain and Denies dyspnea Respiratory Respiratory: Denies cough and Denies dyspnea Gastrointestinal Gastrointestinal: Denies abdominal pain, Denies nausea and Denies vomiting Genitourinary Genitourinary: Denies dysuria Integumentary/Breasts Skin/Breast: Denies rash Neurologic Neurologic: Denies weakness [facility] Medical History (Updated 02/22/21 @ 19:52 by Mitch Beck MD) Abdominal aortic aneurysm (11/27/12) Identified 10/31/12 CT abd-pelvis; 4cm; stable 4.1 cm 07/2014 CT, 4.3cm 11/2016, 5.5cm 03/04/17 ([facility]). 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 Guerra DJD of right shoulder (01/01/13) 12/2012 x-ray severe DJD glenohumeral joint Dr. Guerra; not a surgical candidate for replacement DNI (do not intubate) DNR (do not resuscitate) Episode of seizures in July 2012 Esophageal reflux disease (07/24/11) UPPER GI SERIES 11/14/2012, MOD HIATAL HERNIA SEVERE GERD Goals of care, counseling/discussion DNR/DNI COLST done wants to stay home may need new agent if/when Steph moves out of state as planned Headache (08/31/13) Hypertension Hypothyroidism Incarcerated umbilical hernia (09/06/15) Marijuana dependence has smoked nearly every day since aged 17 helps with mood and pain, D reports Nausea and vomiting (08/01/14) a. previous history of possible marijuana induced hyperemesis Neurogenic bladder (07/24/11) Does not need to self-cath 11/2016: +Urinary retention [facility] inpt requiring cath; resolved by time of discharge Nicotine dependence not interested in quitting knows that smoking makes all her problems worse Olecranon bursitis, left elbow Resolved with appropriate DME Other and unspecified hyperlipidemia (08/14/12) Perirectal abscess With associated hospitalization 2019 POLST (Physician Orders for Life-Sustaining Treatment) signed 06/01/20 Recurrent falls RLS (restless legs syndrome) Spinal stenosis of lumbar region with neurogenic claudication (12/08/13) 04/13/2013 MRI Lumbar Spine: Facet arthropathy, DJD, L4-5, L5-S1 central spinal and neural foraminal stenosis Neurosurgery referral, but not a surgical candidate [facility] chronic pain service Chronic Pain [facility] Pain Center consult 10/26/15 [facility] Spine Center consult 03/04/17 (Sanket Sawant MD) 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) Neuro work-up 2010/wchun +Hereditary, 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 Ambulates with cane when out; walker at home Tinea corporis Type II diabetes mellitus with neurological manifestations (05/04/14) Goal A1c < 7.5% Schein, neuropathy; Charcot's foot 03/19/13 [employer] Wheelchair bound no falls since starting using WC permanent need severe diabetic nephropathy needs more adaptive equipment in the home Surgical History Appendectomy Childhood surgery, no date given by pt.HE Hemiarthroplasty (06/13/15) Dr Charlie Gallardo shoulder History of carpal tunnel release of both wrists (~05/2012) Hx of umbilical hernia repair (09/06/15) Incarcerated umbilical hernia repair (09/06/15) Tonsillectomy childhood surgery, no date given by pt.HE Family History Mother , at 73 yo from dementia Dementia Diabetes Stroke Blind Father , MVA (truck) accident at 45yo No problems noted. Sister Age: 60 Thyroid cancer Brother , from complications of diabetes age 60 Diabetes Brother Diabetes Heart disease Colon cancer Ulcerative colitis Sister Obesity Prediabetes Arthritis Son Substance abuse attends [facility]; h/o heroin and other opioid addiction Other FH: mental illness Social History Smoking/Tobacco Use Status: Current every day Tobacco Type: cigarettes Tobacco: How many years used: 54 Quit status: not considering quitting Counseling given: counseling >3 minutes Smoking risk assessment performed?: Yes Alcohol Intake: never Drug use: Daily Substance use type: marijuana Counseling given: Yes Details: pt states she smokes marijuana on a daily basis Adopted: No Caregiver/Support person: Yes Foster care: No Household members: children Housing: house Number of Children: 1 number of grandchildren: 0 Communication Needs: Corrective Lenses Education Level: high school Details: didn't finish sophomore year Do you need help understanding health information?: Always 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; 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 Pets and animals: Yes Current gender identity: female What is your relationship status?: How often do you talk on the phone with friends or family?: three or more times per week How often do you get together with friends or relatives?: twice per week Panel score (0-1 are the most socially isolated patients): 1 What type of physical activity do you participate in: none and wheelchair-bound Special eliana needs: No Seatbelt use: sometimes Working smoke detector in home: Yes Fire extinguisher in home: Yes Do you feel safe at home: No Do you feel safe in your relationship?: No Additional Social history: Lives with son, Ethan. Sister Steph is her DPOA. Sister planning on moving out of state late 2020, early 2021. Son works during the day. SHe loves wild animals, feeds birds and squirrels. Had a black bear coming onto her porch for a while. Raccoons too. Was at the [employer] in fall 2019. Everyone there was awesome. Hated not being able to smoke cigs or marijuana. Otherwise, good stay. Open to returning when necessary. Exam Const General: no acute distress Orientation: alert HENMT Head: normal to inspection Ears: external ears normal General nose exam: external nose normal Mouth: moist mucous membranes Eyes General: appearance normal, both eyes and all related structures Neck Neck: normal visual inspection Resp Effort & Inspection: normal respiratory effort and able to speak in complete sentences Cardio Rate: tachycardic Skin General skin exam: erythema Neuro General: patient alert Extrem General: normal to inspection and capillary refill normal Psych Mental Status: mental status grossly normal Course Vital Signs Vital signs: Vital Signs Temperature 36.9 C 02/22/21 16:47 Pulse 120 H 02/22/21 16:47 Respiratory Rate 22 02/22/21 16:47 Blood Pressure 146/75 H 02/22/21 16:47 Pulse Oximetry 96 02/22/21 16:47 Temperature 36.9 C 02/22/21 16:47 Temperature Source Tympanic 02/22/21 16:47 Pulse 120 H 02/22/21 16:47 Respiratory Rate 22 02/22/21 16:47 Blood Pressure 146/75 H 02/22/21 16:47 Blood Pressure Position Sitting 02/22/21 16:47 Pulse Oximetry 96 02/22/21 16:47 Oxygen Delivery Method Room Air 02/22/21 16:47 Oxygen Flow Rate 0 02/22/21 16:47 Pain Level 10 02/22/21 16:47 Lab/Test Results Lab/Test Results: 02/22/21 17:10 Blood Blood Culture - Pending 02/22/21 17:10 Blood Blood Culture - Pending
[2021-02-22 18:29] LABS: Abs Immature Grans 0.08 10^3/uL (0.0-0.06); Absolute Basophil Count 0.05 10^3/uL (0.0-0.2); Absolute Eosinophil Count 0.26 10^3/uL (0.0-0.7); Absolute Lymphocyte Count 1.61 10^3/uL (1.2-3.4); Absolute Monocyte Count 0.74 10^3/uL (0.1-0.8); Basophils % 0.4; Eosinophils % 2.2; HCT 44.1 % (36.0-46.0); HGB 14.3 g/dL (11.2-15.7); Immature Grans % 0.7; Lymphocytes % 13.7; MCH 28.7 pg (27.0-33.0); MCHC 32.4 % (32.0-36.0); MCV 88.4 fL (80-95); MPV 11.4 fL (8.0-11.0); Monocytes % 6.3; Neutrophils % 76.7; Nucleated RBC 0 %; Platelet Count 252 10^3/uL (130-400); RBC 4.99 10^6/uL (3.93-5.22); RDW 13.9 % (11.7-14.6); RDW-SD 44.5 fL; WBC 11.72 10^3/uL (4.4-10.8)
[2021-02-22 18:30] LABS: Absolute Neutrophil Count 8.99 10^3/uL (1.2-6.7)
[2021-02-22 18:33] LABS: ESR 42 mm/hr (0-30)
[2021-02-22 18:42] LABS: ALT 23 U/L (14-59); AST 15 U/L (15-37); Albumin 3.8 g/dL (3.4-5.0); Alkaline Phosphatase 160 U/L (46-116); Anion Gap 7.3 mmol/L (3-11); BUN 27 mg/dL (7-18); Bilirubin, Total 0.4 mg/dL (0.2-1.0); C-Reactive Protein 4.81 mg/dL (0.0-0.3); CO2 27.7 mmol/L (21.0-32.0); CREATININE 1.3 mg/dL (0.55-1.02); Calcium 9.9 mg/dL (8.5-10.1); Chloride 99 mmol/L (98-107); Estimated GFR 40.86 (mL/min/1.73m2); Potassium 4.7 mmol/L (3.5-5.1); Sodium 134 mmol/L (136-145); Total Protein 7.6 g/dL (6.4-8.2)
[2021-02-22 18:44] LABS: Glucose 527 mg/dL (74-106)
--- NOTE | 2021-02-22 18:55 | NUR.NOTE ---
Report from DAPHNEY Palmer for continued care. Patient with IV site placed to L by DAPHNEY LOPEZ. IV fluids running. Patient reports she is to take blood sugars four times a day but she mostly doesn't check them but sometimes before bed it is >500 and she takes 50 units per her sliding scale. Patient reports she needs to go home soon, she is missing her shows and is tired of being here.Nursing Note:
[2021-02-22] MEDS: Insulin REGULAR-Human 100 UNITS/ML UNIT 10 UNITS IV (19:03)
--- NOTE | 2021-02-22 19:14 | NUR.NOTE ---
Lab at bedside for second set of blood cultures.Nursing Note:
--- NOTE | 2021-02-22 19:20 | NUR.NOTE ---
Lab called to verify additional lab work is running.Nursing Note:
[2021-02-22 19:22] LABS: Procalcitonin 0.1 ng/mL
--- NOTE | 2021-02-22 19:28 | DI.VRAD_ITS ---
PROCEDURE INFORMATION: Exam: XR Right Foot Exam date and time: 02/22/2021 5:11 PM Age: 66 years old Clinical indication: Pain; Foot; Right TECHNIQUE: Imaging protocol: XR Right foot. Views: 3 or more views. COMPARISON: No relevant prior studies available. FINDINGS: Bones/joints: Healed fractures are noted in the 2nd, 3rd, and 4th metatarsals. Surgical pins remain in place at the 3rd and 4th metatarsals. A long surgical pin is present in the 4th metatarsal. Lucency is observed around the proximal portion of the pin, extending through the shaft of the bone. Erosion is noted at the adjacent 4th proximal phalanx, well-corticated. No acute fractures are appreciated. Subluxation noted at the tarsometatarsal joint between the 2nd metatarsal and middle cuneiform. Severe narrowing is noted across the tarsometatarsal joints, with bulky osteophyte formation. Soft tissues: Soft tissue swelling is noted in the forefoot. Negative for soft tissue air. IMPRESSION: 1. Healed fractures, 2nd-4th metatarsals. 2. Prior Lisfranc injury. 3. Severe arthropathy across the tarsometatarsal joints. 4. Lucency around the long pin in the 4th metatarsal. Loosening or infection considered. 5. Chronic pressure erosion at the 4th proximal phalanx. Dictated and Authenticated by: Mitch Cook MD. Ordering:KJ Meyer MD
[2021-02-22] MEDS: Amoxicillin 875/Clav. 125 TAB PO (20:48)
[2021-02-22] MEDS: Clindamycin 150 MG CAP 450 MG PO (20:48)
[2021-02-22] MEDS: Gabapentin 100 MG CAP PO (20:48)
[2021-02-22 20:49] VITALS: BP 148/76; PULSE 68; RESP 18; TEMP 36.3; O2SAT 97
== END 2021-02-22 20:58 | disposition home or self-care (01) ==
PROVIDERS: Emergency Provider Emergency Medicine; PCP Nurse Practitioner Adult Health
DX: M79.671 Pain in right foot (principal); L03.115 Cellulitis of right lower limb; S90.811A Abrasion, right foot, initial encounter; W22.09XA Striking against other stationary object, initial encounter; E11.9 Type 2 diabetes mellitus without complications; Z79.4 Long term (current) use of insulin
CPT/HCPCS: 36416; 80053; 82962; 84145; 85652; 87040; 96374; 99284; 73630; 85025; 86140

== ENCOUNTER 2021-03-15 13:33 | Inpatient (IN) | payer MEDICARE, MEDICAID, SELFPAY ==
[2021-03-15] VITALS (16 sets, daily range): BP systolic 126–146; BP diastolic 64–86; PULSE 67–84; RESP 14–23; TEMP 36.1–36.6; O2SAT 92–98
--- NOTE | 2021-03-15 14:00 | DI.RAD_ITS ---
Exam(s) XR FOOT RT COMPLETE EXAM: XR FOOT RT COMPLETE CLINICAL HISTORY: cellulitis, multiple sores. TECHNIQUE: 2D digital imaging was performed. COMPARISON: CR,XR XR FOOT RT COMPLETE from 02/22/2021 FINDINGS: Again noted are the healed fractures of the 3rd and 4th metatarsal necks with fixation wires across t he fracture sites of these 2 metatarsals. The distal aspect of 1 of the 2 pins in the 4th metatarsal is again noted to project into the base of the proximal phalanx where there is smooth well-defined l ucency around the pin head at this level.. There is no radiographic evidence of osteomyelitis at thi s level nor elsewhere in the foot. Inferior calcaneal spur is again noted. No acute fractures. IMPRESSION: DATA REPOSITORY: RADIATION DOSE DELIVERED:
--- NOTE | 2021-03-15 14:41 | W.ED.GENAD ---
Discharge Plan Disposition Patient Disposition: [facility] INPATIENT Condition: Stable Discharge Details Clinical Impression: Cellulitis of foot Admit Date/Time: 03/15/21 16:17 Admit Provider: Jose A Espino Attending Provider: Jose A Espino Primary Care Provider: Mai Castelan ED Provider: Treva Jacobs Discharge Data Discharge Date/Time-TO BE ENTERED AT DEPARTURE: 03/15/21 17:20 Medical Decision Making <SU Balderas - Last Filed: 03/16/21 14:54> 66-year-old female, past medical history of diabetes, recent outpatient therapy of Augmentin and clindamycin for right foot cellulitis presenting for worsening symptoms. Reports subjective fevers but no documented fever. She is not febrile at this time. Blood pressure 126/68 pulse in the 70s. Clinically she appears to have foot cellulitis with multiple scabbing wounds. There is no obvious abscess or drainage. There is no lymphangitic streaking. It would appear as though she has failed outpatient therapy, concern now for potential osteomyelitis. Will initiate IV access, CBC, CMP, lactate, ESR, CRP, and obtain x-ray of the right foot for further evaluation of potential osteomyelitis CRP is elevated although her other labs are unremarkable. Awaiting x-ray for potential osteomyelitis. Blood cultures pending Either way she will require antibiotics, given she has failed outpatient therapy recently on clindamycin and Augmentin, will initiate Zosyn and vancomycin. Awaiting x-ray and likely admission. Medical Records Medical records reviewed: Yes I reviewed the patient's medical records. Lab Data Lab results reviewed: Yes I reviewed the patient's lab results. Labs: 03/15/21 15:12 Blood Blood Culture - Pending 03/15/21 14:45 Blood Blood Culture - Pending Laboratory Tests Range/Units 03/15/21 03/15/21 03/15/21 14:45 14:45 14:45 WBC (4.4-10.8) 10^3/uL RBC (3.93-5.22) 10^6/uL Hgb (11.2-15.7) g/dL Hct (36.0-46.0) % MCV (80-95) fL MCH (27.0-33.0) pg MCHC (32.0-36.0) % RDW (11.7-14.6) % Plt Count (130-400) 10^3/uL MPV (8.0-11.0) fL Immature Gran % Neutrophils % Lymphocytes % Monocytes % Eosinophils % Basophils % Nucleated RBC % % Absolute Neutrophils (1.2-6.7) 10^3/uL Absolute Lymphocytes (1.2-3.4) 10^3/uL Absolute Monocytes (0.1-0.8) 10^3/uL Absolute Eosinophils (0.0-0.7) 10^3/uL Absolute Basophils (0.0-0.2) 10^3/uL ESR (0-30) mm/hr 22 VBG Lactate (0.6-1.4) mmol/L 1.0 Sodium (136-145) mmol/L 142 Potassium (3.5-5.1) mmol/L 3.9 Chloride (98-107) mmol/L 105 Carbon Dioxide (21.0-32.0) mmol/L 29.2 Anion Gap (3-11) mmol/L 7.8 BUN (7-18) mg/dL 25 H Creatinine (0.55-1.02) mg/dL 1.1 H Estimated GFR/1.73 m2 (mL/min/1.73m2) 49.54 Glucose (74-106) mg/dL 181 H Calcium (8.5-10.1) mg/dL 10.1 Total Bilirubin (0.2-1.0) mg/dL 0.3 AST (15-37) U/L 13 L ALT (14-59) U/L 23 Alkaline Phosphatase (46-116) U/L 114 C-Reactive Protein (0.0-0.3) mg/dL 0.45 H Total Protein (6.4-8.2) g/dL 7.5 Albumin (3.4-5.0) g/dL 3.7 Range/Units 03/15/21 14:45 WBC (4.4-10.8) 10^3/uL 7.93 RBC (3.93-5.22) 10^6/uL 4.98 Hgb (11.2-15.7) g/dL 13.8 Hct (36.0-46.0) % 43.2 MCV (80-95) fL 86.7 MCH (27.0-33.0) pg 27.7 MCHC (32.0-36.0) % 31.9 L RDW (11.7-14.6) % 13.8 Plt Count (130-400) 10^3/uL 238 MPV (8.0-11.0) fL 10.7 Immature Gran % 0.4 Neutrophils % 63.5 Lymphocytes % 24.7 Monocytes % 6.4 Eosinophils % 4.5 Basophils % 0.5 Nucleated RBC % % 0 Absolute Neutrophils (1.2-6.7) 10^3/uL 5.03 Absolute Lymphocytes (1.2-3.4) 10^3/uL 1.96 Absolute Monocytes (0.1-0.8) 10^3/uL 0.51 Absolute Eosinophils (0.0-0.7) 10^3/uL 0.36 Absolute Basophils (0.0-0.2) 10^3/uL 0.04 ESR (0-30) mm/hr VBG Lactate (0.6-1.4) mmol/L Sodium (136-145) mmol/L Potassium (3.5-5.1) mmol/L Chloride (98-107) mmol/L Carbon Dioxide (21.0-32.0) mmol/L Anion Gap (3-11) mmol/L BUN (7-18) mg/dL Creatinine (0.55-1.02) mg/dL Estimated GFR/1.73 m2 (mL/min/1.73m2) Glucose (74-106) mg/dL Calcium (8.5-10.1) mg/dL Total Bilirubin (0.2-1.0) mg/dL AST (15-37) U/L ALT (14-59) U/L Alkaline Phosphatase (46-116) U/L C-Reactive Protein (0.0-0.3) mg/dL Total Protein (6.4-8.2) g/dL Albumin (3.4-5.0) g/dL <Treva Jacobs NP - Last Filed: 03/15/21 21:21> care of patient received, patient remains medically stable. no signs of osteomyelitis by xray. labs reviewed. plan is to admit to med/surg for failed outpatient treatment of cellulitis. patient in agreement. Medical Records Medical records reviewed: Yes I reviewed the patient's medical records. Imaging Data Radiologic Study: Radiologist's impression: XR FOOT RT COMPLETE EXAM: XR FOOT RT COMPLETE CLINICAL HISTORY: cellulitis, multiple sores. TECHNIQUE: 2D digital imaging was performed. COMPARISON: CR,XR XR FOOT RT COMPLETE from 02/22/2021 FINDINGS: Again noted are the healed fractures of the 3rd and 4th metatarsal necks with fixation wires across the fracture sites of these 2 metatarsals. The distal aspect of 1 of the 2 pins in the 4th metatarsal is again noted to project into the base of the proximal phalanx where there is smooth well-defined lucency around the pin head at this level.. There is no radiographic evidence of osteomyelitis at this level nor elsewhere in the foot. Inferior calcaneal spur is again noted. No acute fractures. Lab Data Lab results reviewed: Yes I reviewed the patient's lab results. HPI <SU Balderas - Last Filed: 03/16/21 14:54> General Mode of arrival: EMS. Date/Time Provider Initiated Documentation: 03/15/21 13:36. Limitations to Documentation: no limitations. Information obtained by: patient and EMS. HPI Narrative: This is a 66-year-old female, lives at home with her son, does have home health, past medical history that includes AAA, cardiomyopathy, chronic back pain, CKD, COPD, CAD, depression, diabetes, hypertension, hypothyroidism, presenting to the ER for failed outpatient therapy of right foot cellulitis. Patient seen in the ER on February 22, admission was recommended but patient declined, discharged home on Augmentin and clindamycin. Patient did finish her regimen of antibiotic sometime last week but did miss doses, did not take as directed. Patient is reporting feeling warm but no reported fever, complaining of right foot pain, and home health reports that her foot is looking worse than it had. Patient is Covid vaccinated. She denies headache, chest pain, shortness of breath, abdominal pain, nausea, vomiting, skin rash elsewhere on her body. She has not taken any [id number] medications for her symptoms. Patient states that she feels worse than her previous visit and would like to be admitted this time for further evaluation and IV antibiotics Related Data Home Medications Medication Instructions Recorded Confirmed Medical Thc 1 misc INHALATION PRN PRN 04/06/14 08/23/20 budesonide-formoterol [Symbicort] 2 puff INHALATION BID #3 inhaler 01/28/17 03/15/21 nicotine 10 mg inhalation cartridge 1 inh IH 4-6XD PRN #168 each 10/30/18 03/15/21 docusate sodium [Colace] 100 mg PO BID #60 cap 09/05/19 03/15/21 ipratropium-albuterol 3 ml IH Q4H PRN #180 ml 09/05/19 03/15/21 duloxetine 60 mg capsule,delayed 60 mg PO BID #180 tab-cap 09/07/19 03/15/21 release ascorbic acid (vitamin C) 250 mg 250 mg PO BID #60 tab 09/14/19 03/15/21 tablet ferrous gluconate 324 mg (37.5 mg 324 mg PO BID #60 tab 09/14/19 03/15/21 iron) tablet insulin aspart U-100 100 unit/mL See Rx Instructions SC AC #80 ml 10/09/19 03/15/21 (3 mL) subcutaneous pen albuterol sulfate 90 mcg/actuation 1 - 2 puff INHALATION Q4H PRN #18 12/28/19 03/15/21 aerosol inhaler miscellaneous medical supply each 01/07/20 08/23/20 Trapeze See Rx Instructions .ROUTE 01/08/20 08/23/20 .COMPLEX #1 unit torsemide 10 mg tablet 10 mg PO .daily in AM #90 tab-cap 04/12/20 03/15/21 acetaminophen 500 mg capsule 1,000 mg PO TID #180 cap 04/19/20 03/15/21 commode #1 ea 06/07/20 08/23/20 hospital bed #1 ea 06/07/20 08/23/20 wheelchair #1 ea 06/07/20 08/23/20 ezetimibe 10 mg tablet 10 mg PO DAILY #90 tab-cap 07/14/20 03/15/21 levothyroxine 50 mcg tablet 50 mcg PO DAILY #90 tab-cap 07/26/20 03/15/21 losartan 50 mg tablet 50 mg PO DAILY #90 tab 09/09/20 03/15/21 pantoprazole 40 mg tablet,delayed 40 mg PO DAILY #90 tab-cap 09/09/20 03/15/21 release blood sugar diagnostic #400 each 11/03/20 lancets #400 each 11/03/20 pen needle, diabetic, safety 30 #360 ea 11/23/20 gauge x 1/3 gabapentin 100 mg capsule 100 - 200 mg PO TID #180 cap MDD 11/25/20 03/15/21 800mg simvastatin 40 mg tablet 40 mg PO DAILY #90 tab 11/25/20 03/15/21 mupirocin 2 % topical ointment 1 applic TOPICAL TID #15 g 01/04/21 03/15/21 semaglutide 0.5 mg SUBCUT QWEEK #1.5 ml 01/04/21 03/15/21 insulin degludec 200 unit/mL (3 80 unit SUBCUT DAILY #12 ml 01/06/21 03/15/21 mL) subcutaneous pen metoprolol succinate 25 mg 25 mg PO .daily at bedtime #90 tab 02/09/21 03/15/21 tablet,extended release 24 hr naproxen 375 mg tablet 375 mg PO BID #20 tab 02/13/21 03/15/21 amoxicillin-pot clavulanate 1 tab PO BID #14 tab 02/22/21 03/02/21 [Augmentin] Previous Rx's Medication Instructions Recorded budesonide-formoterol [Symbicort] 2 puff INHALATION BID #3 inhaler 01/28/17 nicotine 10 mg inhalation cartridge 1 inh IH 4-6XD PRN #168 each 10/30/18 docusate sodium [Colace] 100 mg PO BID #60 cap 09/05/19 ipratropium-albuterol 3 ml IH Q4H PRN #180 ml 09/05/19 duloxetine 60 mg capsule,delayed 60 mg PO BID #180 tab-cap 09/07/19 release ascorbic acid (vitamin C) 250 mg 250 mg PO BID #60 tab 09/14/19 tablet ferrous gluconate 324 mg (37.5 mg 324 mg PO BID #60 tab 09/14/19 iron) tablet insulin aspart U-100 100 unit/mL See Rx Instructions SC AC #80 ml 10/09/19 (3 mL) subcutaneous pen albuterol sulfate 90 mcg/actuation 1 - 2 puff INHALATION Q4H PRN #18 12/28/19 aerosol inhaler gm Trapeze See Rx Instructions .ROUTE 01/08/20 .COMPLEX #1 unit torsemide 10 mg tablet 10 mg PO .daily in AM #90 tab-cap 12/01/20 acetaminophen 500 mg capsule 1,000 mg PO TID #180 cap 04/19/20 commode #1 ea 06/07/20 hospital bed #1 ea 06/07/20 wheelchair #1 ea 06/07/20 ezetimibe 10 mg tablet 10 mg PO DAILY #90 tab-cap 07/14/20 levothyroxine 50 mcg tablet 50 mcg PO DAILY #90 tab-cap 07/26/20 losartan 50 mg tablet 50 mg PO DAILY #90 tab 09/09/20 pantoprazole 40 mg tablet,delayed 40 mg PO DAILY #90 tab-cap 09/09/20 release blood sugar diagnostic #400 each 11/03/20 lancets #400 each 11/03/20 pen needle, diabetic, safety 30 #360 ea 11/23/20 gauge x 1/3 gabapentin 100 mg capsule 100 - 200 mg PO TID #180 cap MDD 11/25/20 800mg simvastatin 40 mg tablet 40 mg PO DAILY #90 tab 11/25/20 mupirocin 2 % topical ointment 1 applic TOPICAL TID #15 g 01/04/21 semaglutide 0.5 mg SUBCUT QWEEK #1.5 ml 01/04/21 insulin degludec 200 unit/mL (3 80 unit SUBCUT DAILY #12 ml 01/06/21 mL) subcutaneous pen metoprolol succinate 25 mg 25 mg PO .daily at bedtime #90 tab 02/09/21 tablet,extended release 24 hr naproxen 375 mg tablet 375 mg PO BID #20 tab 02/13/21 amoxicillin-pot clavulanate 1 tab PO BID #14 tab 02/22/21 [Augmentin] Allergies Allergy/AdvReac Type Severity Reaction Status Date / Time bupropion HCl Allergy Severe seizures Verified 03/15/21 13:46 [From Wellbutrin] carvedilol [From Coreg] Allergy Mild Itching Verified 03/15/21 13:46 morphine AdvReac Unknown nausea Verified 03/15/21 13:46 General Stated Complaint: Cellulitis DINESH: 3 Review of Systems <SU Balderas - Last Filed: 03/16/21 14:54> Constitutional Constitutional: Denies fatigue, Reports fever(s) (Subjective) and Denies weakness ENT Ears, Nose, Mouth, and Throat: Denies neck pain Cardiovascular Cardiovascular: Denies chest pain and Denies dyspnea Respiratory Respiratory: Denies cough and Denies dyspnea Gastrointestinal Gastrointestinal: Denies abdominal pain, Denies nausea and Denies vomiting Genitourinary Genitourinary: Denies dysuria Musculoskeletal Musculoskeletal: Reports back pain (Chronic in nature), Denies neck pain, Denies numbness and Denies tingling Integumentary/Breasts Skin/Breast: Reports erythema Neurologic Neurologic: Denies numbness, Denies tingling and Denies weakness Endocrine Endocrine: Denies fatigue Hematologic/Lymphatic Hematologic/Lymphatic: Denies easy bleeding and Denies easy bruising PFSH <SU Balderas - Last Filed: 03/16/21 14:54> Medical History Abdominal aortic aneurysm (11/27/12) Identified 10/31/12 CT abd-pelvis; 4cm; stable 4.1 cm 07/2014 CT, 4.3cm 11/2016, 5.5cm 03/04/17 ([facility] [place]). 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 Difficulty transferring from bed to wheelchair [facility] hospital bed has helped Difficulty transferring from toilet to wheelchair Steph investigating commode 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 Guerra DJD of right shoulder (01/01/13) 12/2012 x-ray severe DJD glenohumeral joint Dr. Guerra; not a surgical candidate for replacement DNI (do not intubate) DNR (do not resuscitate) Episode of seizures in July 2012 Esophageal reflux disease (07/24/11) UPPER GI SERIES 11/14/2012, MOD HIATAL HERNIA SEVERE GERD Goals of care, counseling/discussion DNR/DNI COLST done wants to stay home may need new agent if/when Steph moves out of state as planned Headache (08/31/13) Hypertension Hypothyroidism Incarcerated umbilical hernia (09/06/15) Marijuana dependence has smoked nearly every day since aged 17 helps with mood and pain, D reports Nausea and vomiting (08/01/14) a. previous history of possible marijuana induced hyperemesis Neurogenic bladder (07/24/11) Does not need to self-cath 11/2016: +Urinary retention [facility] inpt requiring cath; resolved by time of discharge Nicotine dependence not interested in quitting knows that smoking makes all her problems worse Olecranon bursitis, left elbow Resolved with appropriate DME Other and unspecified hyperlipidemia (08/14/12) Perirectal abscess With associated hospitalization 2019 POLST (Physician Orders for Life-Sustaining Treatment) signed 06/01/20 Recurrent falls RLS (restless legs syndrome) Spinal stenosis of lumbar region with neurogenic claudication (12/08/13) 04/13/2013 MRI Lumbar Spine: Facet arthropathy, DJD, L4-5, L5-S1 central spinal and neural foraminal stenosis Neurosurgery referral, but not a surgical candidate [facility] chronic pain service Chronic Pain [facility] Pain Center consult 10/26/15 [facility] [place] Spine Center consult 03/04/17 (Sanket Sawant MD) 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) Neuro work-up 2010/wchun +Hereditary, 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 Ambulates with cane when out; walker at home Tinea corporis Type II diabetes mellitus with neurological manifestations (05/04/14) Goal A1c < 7.5% Schein, neuropathy; Charcot's foot 03/19/13 [employer] Wheelchair bound no falls since starting using WC permanent need severe diabetic nephropathy needs more adaptive equipment in the home Surgical History Appendectomy Childhood surgery, no date given by pt.HE Hemiarthroplasty (06/13/15) Dr Charlie Gallardo shoulder History of carpal tunnel release of both wrists (~05/2012) Hx of umbilical hernia repair (09/06/15) Incarcerated umbilical hernia repair (09/06/15) Tonsillectomy childhood surgery, no date given by pt.HE Family History Mother , at 73 yo from dementia Dementia Diabetes Stroke Blind Father , MVA (truck) accident at 45yo No problems noted. Sister Age: 60 Thyroid cancer Brother , from complications of diabetes age 60 Diabetes Brother Diabetes Heart disease Colon cancer Ulcerative colitis Sister Obesity Prediabetes Arthritis Son Substance abuse attends [facility] clinic; h/o heroin and other opioid addiction Other FH: mental illness Social History Smoking/Tobacco Use Status: Current every day Tobacco Type: cigarettes Tobacco: How many years used: 54 Quit status: not considering quitting Counseling given: counseling >3 minutes Smoking risk assessment performed?: Yes Alcohol Intake: never Drug use: Daily Substance use type: marijuana Counseling given: Yes Details: pt states she smokes marijuana on a daily basis Adopted: No Caregiver/Support person: Yes Foster care: No Household members: children Housing: house Number of Children: 1 number of grandchildren: 0 Communication Needs: Corrective Lenses Education Level: high school Details: didn't finish sophomore year Do you need help understanding health information?: Always 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; 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 Pets and animals: Yes Current gender identity: female What is your relationship status?: How often do you talk on the phone with friends or family?: three or more times per week How often do you get together with friends or relatives?: twice per week Panel score (0-1 are the most socially isolated patients): 1 What type of physical activity do you participate in: none and wheelchair-bound Special eliana needs: No Seatbelt use: sometimes Working smoke detector in home: Yes Fire extinguisher in home: Yes Do you feel safe at home: No Do you feel safe in your relationship?: No Additional Social history: Lives with son, Ethan. Sister Steph is her DPOA. Sister planning on moving out of state late 2020, early 2021. Son works during the day. SHe loves wild animals, feeds birds and squirrels. Had a black bear coming onto her porch for a while. Raccoons too. Was at the [facility] in fall 2019. Everyone there was awesome. Hated not being able to smoke cigs or marijuana. Otherwise, good stay. Open to returning when necessary. Exam <SU Balderas - Last Filed: 03/16/21 14:54> Const General: cooperative, comfortable, no acute distress and ill appearing chronically Orientation: alert, awake and oriented x3 HENMT Head: normal to inspection, normocephalic and atraumatic Face and sinus: normal facial exam Mouth: moist mucous membranes Eyes General: appearance normal, both eyes and all related structures Conjunctivae: conjunctivae normal Neck Neck: normal visual inspection, trachea midline and supple Resp Effort & Inspection: normal respiratory effort and able to speak in complete sentences Auscultation: diminished lung sounds bilaterally in the lower lung aleman Cardio Rate: regular rate Rhythm: regular rhythm GI Inspection: obesity Palpation: soft and nontender Back/Spine/Pelvis Back: No back tenderness Skin General skin exam: erythema Neuro General: patient alert, patient awake, patient oriented x3, moves all extremities and no focal motor deficits Cognition: normal cognition Motor: muscle tone normal throughout Sensory Exam: no sensory deficits noted Extrem General: full ROM and capillary refill normal Other: Right foot with multiple dry scabs although there is a shallow sore, erythema to the medial aspect of the fifth toe. There is diffuse mild swelling, discomfort, warmth, erythema more so to the dorsal aspect of the foot, less to the plantar aspect, noncircumferential. There is no obvious abscess or drainage. Neuro, vascular, tendon intact. Normal capillary refill and dorsalis pedal pulse Psych Appearance: grossly normal Mental Status: mental status grossly normal Course <SU Balderas - Last Filed: 03/16/21 14:54> Vital Signs Vital signs: Vital Signs Temperature 36.2 C L 03/15/21 13:35 Pulse 78 03/15/21 13:35 Respiratory Rate 16 03/15/21 13:35 Blood Pressure 126/68 03/15/21 13:35 Pulse Oximetry 95 03/15/21 13:35 Temperature 36.1 C L 03/15/21 13:41 Temperature Source Temporal Artery Scan 03/15/21 13:41 Pulse 84 03/15/21 13:41 Respiratory Rate 18 03/15/21 13:41 Respiratory Effort Non-Labored 03/15/21 13:35 Blood Pressure 126/68 03/15/21 13:41 Blood Pressure Position Supine 03/15/21 13:35 Pulse Oximetry 98 03/15/21 13:41 Oxygen Delivery Method Room Air 03/15/21 13:41 Oxygen Flow Rate 0 03/15/21 13:41 Pain Level 5 03/15/21 13:35 Lab/Test Results Lab/Test Results: 03/15/21 14:02 Blood Blood Culture - Pending 03/15/21 14:02 Blood Blood Culture - Pending Sign Out <SU Balderas - Last Filed: 03/16/21 14:54> Sign Out Data: Sign Out Comment: Diabetic, noncompliant, failed outpatient therapy with Augmentin and clindamycin, right foot cellulitis. Elevated CRP today. Given IV Vanco and Zosyn. Awaiting x-ray for potential osteo. Likely admission for failed outpatient cellulitis, plus or minus osteomyelitis Last updated by Jose A Lazaro PA at 03/15/21 15:57
[2021-03-15 15:05] LABS: Abs Immature Grans 0.03 10^3/uL (0.0-0.06); Absolute Basophil Count 0.04 10^3/uL (0.0-0.2); Absolute Eosinophil Count 0.36 10^3/uL (0.0-0.7); Absolute Lymphocyte Count 1.96 10^3/uL (1.2-3.4); Absolute Monocyte Count 0.51 10^3/uL (0.1-0.8); Absolute Neutrophil Count 5.03 10^3/uL (1.2-6.7); Basophils % 0.5; Eosinophils % 4.5; HCT 43.2 % (36.0-46.0); HGB 13.8 g/dL (11.2-15.7); Immature Grans % 0.4; Lymphocytes % 24.7; MCH 27.7 pg (27.0-33.0); MCHC 31.9 % (32.0-36.0); MCV 86.7 fL (80-95); MPV 10.7 fL (8.0-11.0); Monocytes % 6.4; Neutrophils % 63.5; Nucleated RBC 0 %; Platelet Count 238 10^3/uL (130-400); RBC 4.98 10^6/uL (3.93-5.22); RDW 13.8 % (11.7-14.6); RDW-SD 43.7 fL; WBC 7.93 10^3/uL (4.4-10.8)
[2021-03-15 15:07] LABS: ESR 22 mm/hr (0-30)
[2021-03-15 15:13] LABS: ALT 23 U/L (14-59); AST 13 U/L (15-37); Albumin 3.7 g/dL (3.4-5.0); Alkaline Phosphatase 114 U/L (46-116); Anion Gap 7.8 mmol/L (3-11); BUN 25 mg/dL (7-18); Bilirubin, Total 0.3 mg/dL (0.2-1.0); C-Reactive Protein 0.45 mg/dL (0.0-0.3); CO2 29.2 mmol/L (21.0-32.0); CREATININE 1.1 mg/dL (0.55-1.02); Calcium 10.1 mg/dL (8.5-10.1); Chloride 105 mmol/L (98-107); Estimated GFR 49.54 (mL/min/1.73m2); Glucose 181 mg/dL (74-106); Potassium 3.9 mmol/L (3.5-5.1); Sodium 142 mmol/L (136-145); Total Protein 7.5 g/dL (6.4-8.2)
--- NOTE | 2021-03-15 16:23 | W.PM.HP.N ---
Date of service: 03/15/21 Time of Service: 16:24 Assessment and Plan Assessment and plan (1) Cellulitis of foot: Status: Acute Assessment and plan: failed outpatient continue vanco and zosyn as initiated in ED no evidence of osteomyelitis on imaging elevate as much as possible. (2) Diabetes type 2, uncontrolled: Status: Chronic Assessment and plan: diabetic diet, sliding scale as needed A1C december 2020 was 10.1 diabetic education Qualifiers: Glycemic state: with hyperglycemia Qualified Code(s): E11.65 - Type 2 diabetes mellitus with hyperglycemia (3) Noncompliance with medication regimen: Status: Chronic (4) Chronic kidney disease, stage III (moderate): Status: Chronic Assessment and plan: at baseline, monitor and avoid nephrotoxic medication Qualifiers: Chronic kidney disease stage 3 subtype: unspecified whether 3a or 3b Qualified Code(s): N18.30 - Chronic kidney disease, stage 3 unspecified (5) Hypothyroidism: Status: Chronic Assessment and plan: TSH 2011apr 2304/2020 continue synthyroid (6) Hypertension: Status: Chronic Assessment and plan: blood pressure stable monitor, continue home medication discussed with Dr Espino Qualifiers: Hypertension type: essential hypertension Qualified Code(s): I10 - Essential (primary) hypertension History of Present Illness History of Present Illness Chief Complaint: cellulitis Narrative: this is a 66 year old female with history of diabetes, non compliance, who presents to the ED with ongoing right foot pain and swelling, recently completed augmentin outpatient course. she denies fever or chills. work up in the ED shows no evidence of osteomyelitis. she is placed on vanco and zosyn and will be admitted to med/surg on hospitalist services. Review of Systems Constitutional Constitutional: Denies chills and Denies fever(s) Cardiovascular Cardiovascular: Denies chest pain and Denies dyspnea Respiratory Respiratory: Denies cough and Denies dyspnea Gastrointestinal Gastrointestinal: Denies abdominal pain Musculoskeletal Musculoskeletal: Reports arthralgias (right foot) and Reports joint swelling Integumentary/Breasts Skin/Breast: Reports dry skin, Reports lesions (scabs right foot), Reports nail changes and Reports rash [facility] Medical History Abdominal aortic aneurysm (11/27/12) Identified 10/31/12 CT abd-pelvis; 4cm; stable 4.1 cm 07/2014 CT, 4.3cm 11/2016, 5.5cm 03/04/17 [place] 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 Ward Bacteremia due to Gram-positive bacteria Calculus of kidney and ureter Cardiomyopathy Dr Fair, EF 45% Jun 2014 ECHO (h/o much worse) 10/2016 ECHO: EF 40-45% 10/2016 MPI: no acute, but persistent old infarct Carpal tunnel syndrome (08/14/12) resolved s/p b/l release Chronic back pain History of chronic opioids, now none Chronic kidney disease, stage III (moderate) (08/14/12) Cortical atrophy R kidney on CT 07/2014; multiple cysts Cognitive attention deficit needs multiple repetitions of information COPD, mild (07/02/17) PFTs Coronary artery disease involving grindstone coronary artery of grindstone heart INFERIOR [place] 1996, 100% RCA occlusion; large inf defect on perfusion scan, dr Fair Depressive disorder (08/14/12) Diabetes type 2, uncontrolled though she has had education over the years, still seems not to understand carb counting ideally needs someone to educate son as he buys her food also needs hands-on teaching with nutrition labels, etc. Difficulty transferring from bed to wheelchair [facility] hospital bed has helped Difficulty transferring from toilet to wheelchair Steph investigating commode 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 Guerra DJD of right shoulder (01/01/13) 12/2012 x-ray severe DJD glenohumeral joint Dr. Guerra; not a surgical candidate for replacement DNI (do not intubate) DNR (do not resuscitate) Episode of seizures in July 2012 Esophageal reflux disease (07/24/11) UPPER GI SERIES 11/14/2012, MOD HIATAL HERNIA SEVERE GERD Goals of care, counseling/discussion DNR/DNI COLST done wants to stay home may need new agent if/when Steph moves out of state as planned Headache (08/31/13) Hypertension Hypothyroidism Incarcerated umbilical hernia (09/06/15) Marijuana dependence has smoked nearly every day since aged 17 helps with mood and pain, D reports Nausea and vomiting (08/01/14) a. previous history of possible marijuana induced hyperemesis Neurogenic bladder (07/24/11) Does not need to self-cath 11/2016: +Urinary retention [facility] inpt requiring cath; resolved by time of discharge Nicotine dependence not interested in quitting knows that smoking makes all her problems worse Olecranon bursitis, left elbow Resolved with appropriate DME Other and unspecified hyperlipidemia (08/14/12) Perirectal abscess With associated hospitalization 2019 POLST (Physician Orders for Life-Sustaining Treatment) signed 06/01/20 Recurrent falls RLS (restless legs syndrome) Spinal stenosis of lumbar region with neurogenic claudication (12/08/13) 04/13/2013 MRI Lumbar Spine: Facet arthropathy, DJD, L4-5, L5-S1 central spinal and neural foraminal stenosis Neurosurgery referral, but not a surgical candidate [facility] chronic pain service Chronic Pain [facility] Pain Center consult 10/26/15 [facility] Spine Center consult 03/04/17 (Sanket Sawant MD) 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) Neuro work-up ch +Hereditary, 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 Ambulates with cane when out; walker at home Tinea corporis Type II diabetes mellitus with neurological manifestations (05/04/14) Goal A1c < 7.5% Schein, neuropathy; Charcot's foot 03/19/13 [employer] Wheelchair bound no falls since starting using WC permanent need severe diabetic nephropathy needs more adaptive equipment in the home Surgical History Appendectomy Childhood surgery, no date given by pt.HE Hemiarthroplasty (06/13/15) Dr Charlie Gallardo shoulder History of carpal tunnel release of both wrists (~05/2012) Hx of umbilical hernia repair (09/06/15) Incarcerated umbilical hernia repair (09/06/15) Tonsillectomy childhood surgery, no date given by pt.HE Family History Mother , at 73 yo from dementia Dementia Diabetes Stroke Blind Father , MVA (truck) accident at 45yo No problems noted. Sister Age: 60 Thyroid cancer Brother , from complications of diabetes age 60 Diabetes Brother Diabetes Heart disease Colon cancer Ulcerative colitis Sister Obesity Prediabetes Arthritis Son Substance abuse attends [facility]; h/o heroin and other opioid addiction Other FH: mental illness Social History Smoking/Tobacco Use Status: Current every day Tobacco Type: cigarettes Tobacco: How many years used: 54 Quit status: not considering quitting Counseling given: counseling >3 minutes Smoking risk assessment performed?: Yes Alcohol Intake: never Drug use: Daily Substance use type: marijuana Counseling given: Yes Details: pt states she smokes marijuana on a daily basis Adopted: No Caregiver/Support person: Yes Foster care: No Household members: children Housing: house Number of Children: 1 number of grandchildren: 0 Communication Needs: Corrective Lenses Education Level: high school Details: didn't finish sophomore year Do you need help understanding health information?: Always 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; 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 Pets and animals: Yes Current gender identity: female What is your relationship status?: How often do you talk on the phone with friends or family?: three or more times per week How often do you get together with friends or relatives?: twice per week Panel score (0-1 are the most socially isolated patients): 1 What type of physical activity do you participate in: none and wheelchair-bound Special eliana needs: No Seatbelt use: sometimes Working smoke detector in home: Yes Fire extinguisher in home: Yes Do you feel safe at home: No Do you feel safe in your relationship?: No Additional Social history: Lives with son, Ethan. Sister Steph is her DPOA. Sister planning on moving out of state late 2020, early 2021. Son works during the day. SHe loves wild animals, feeds birds and squirrels. Had a black bear coming onto her porch for a while. Raccoons too. Was at the [facility] in fall 2019. Everyone there was awesome. Hated not being able to smoke cigs or marijuana. Otherwise, good stay. Open to returning when necessary. Meds Allergies and Home Medications Allergies Allergy/AdvReac Type Severity Reaction Status Date / Time bupropion HCl Allergy Severe seizures Verified 03/15/21 13:46 [From Wellbutrin] carvedilol [From Coreg] Allergy Mild Itching Verified 03/15/21 13:46 morphine AdvReac Unknown nausea Verified 03/15/21 13:46 Home Medications Medication Instructions Recorded Confirmed Type Medical Thc 1 misc INHALATION PRN PRN 04/06/14 08/23/20 History budesonide-formoterol [Symbicort] 2 puff INHALATION BID #3 inhaler 01/28/17 03/15/21 Rx nicotine 10 mg inhalation cartridge 1 inh IH [id number] PRN #168 each 10/30/18 03/15/21 Rx docusate sodium [Colace] 100 mg PO BID #60 cap 09/05/19 03/15/21 Rx ipratropium-albuterol 3 ml IH Q4H PRN #180 ml 09/05/19 03/15/21 Rx duloxetine 60 mg capsule,delayed 60 mg PO BID #180 tab-cap 09/07/19 03/15/21 Rx release ascorbic acid (vitamin C) 250 mg 250 mg PO BID #60 tab 09/14/19 03/15/21 Rx tablet ferrous gluconate 324 mg (37.5 mg 324 mg PO BID #60 tab 09/14/19 03/15/21 Rx iron) tablet insulin aspart U-100 100 unit/mL See Rx Instructions SC AC #80 ml 10/09/19 03/15/21 Rx (3 mL) subcutaneous pen albuterol sulfate 90 mcg/actuation 1 - 2 puff INHALATION Q4H PRN #18 12/28/19 03/15/21 Rx aerosol inhaler miscellaneous medical supply each 01/07/20 08/23/20 History Trapeze See Rx Instructions .ROUTE 01/08/20 08/23/20 Rx .COMPLEX #1 unit torsemide 10 mg tablet 10 mg PO .daily in AM #90 tab-cap 04/12/20 03/15/21 Rx acetaminophen 500 mg capsule 1,000 mg PO TID #180 cap 04/19/20 03/15/21 Rx commode #1 ea 06/07/20 08/23/20 Rx hospital bed #1 ea 06/07/20 08/23/20 Rx wheelchair #1 ea 06/07/20 08/23/20 Rx ezetimibe 10 mg tablet 10 mg PO DAILY #90 tab-cap 07/14/20 03/15/21 Rx levothyroxine 50 mcg tablet 50 mcg PO DAILY #90 tab-cap 07/26/20 03/15/21 Rx losartan 50 mg tablet 50 mg PO DAILY #90 tab 09/09/20 03/15/21 Rx pantoprazole 40 mg tablet,delayed 40 mg PO DAILY #90 tab-cap 09/09/20 03/15/21 Rx release blood sugar diagnostic #400 each 11/03/20 Rx lancets #400 each 11/03/20 Rx pen needle, diabetic, safety 30 #360 ea 11/23/20 Rx gauge x 1/3 gabapentin 100 mg capsule 100 - 200 mg PO TID #180 cap MDD 11/25/20 03/15/21 Rx 800mg simvastatin 40 mg tablet 40 mg PO DAILY #90 tab 11/25/20 03/15/21 Rx mupirocin 2 % topical ointment 1 applic TOPICAL TID #15 g 01/04/21 03/15/21 Rx semaglutide 0.5 mg SUBCUT QWEEK #1.5 ml 01/04/21 03/15/21 Rx insulin degludec 200 unit/mL (3 80 unit SUBCUT DAILY #12 ml 01/06/21 03/15/21 Rx mL) subcutaneous pen metoprolol succinate 25 mg 25 mg PO .daily at bedtime #90 tab 02/09/21 03/15/21 Rx tablet,extended release 24 hr naproxen 375 mg tablet 375 mg PO BID #20 tab 02/13/21 03/15/21 Rx amoxicillin-pot clavulanate 1 tab PO BID #14 tab 02/22/21 03/02/21 Rx [Augmentin] Exam Const General: cooperative, comfortable, no acute distress, disheveled, frail appearing (older than stated age) and ill appearing chronically Orientation: alert, awake and oriented x3 [facility] Head: normal to inspection, normocephalic and atraumatic Face and sinus: normal facial exam Mouth: moist mucous membranes Eyes General: appearance normal, both eyes and all related structures Conjunctivae: conjunctivae normal Neck Neck: normal visual inspection, trachea midline and supple Resp Effort & Inspection: normal respiratory effort and able to speak in complete sentences Auscultation: diminished lung sounds bilaterally in the lower lung aleman Cardio Rate: regular rate Rhythm: regular rhythm GI Inspection: obesity Palpation: soft and nontender Back/Spine/Pelvis Back: No back tenderness Skin General skin exam: erythema Neuro General: patient alert, patient awake, patient oriented x3, moves all extremities and no focal motor deficits Cognition: normal cognition Motor: muscle tone normal throughout Sensory Exam: no sensory deficits noted Extrem General: full ROM and capillary refill normal Psych Appearance: grossly normal Mental Status: mental status grossly normal Results Labs Result diagrams: 03/15/21 14:45 03/15/21 14:45 Labs: Laboratory Results - last 24 hr 03/15/21 03/15/21 03/15/21 14:45 14:45 14:45 WBC RBC Hgb Hct MCV MCH MCHC RDW Plt Count MPV Immature Gran % Neutrophils % Lymphocytes % Monocytes % Eosinophils % Basophils % Nucleated RBC % Absolute Neutrophils Absolute Lymphocytes Absolute Monocytes Absolute Eosinophils Absolute Basophils ESR 22 VBG Lactate 1.0 Sodium 142 Potassium 3.9 Chloride 105 Carbon Dioxide 29.2 Anion Gap 7.8 BUN 25 H Creatinine 1.1 H Estimated GFR/1.73 m2 49.54 Glucose 181 H Calcium 10.1 Total Bilirubin 0.3 AST 13 L ALT 23 Alkaline Phosphatase 114 C-Reactive Protein 0.45 H Total Protein 7.5 Albumin 3.7 03/15/21 14:45 WBC 7.93 RBC 4.98 Hgb 13.8 Hct 43.2 MCV 86.7 MCH 27.7 MCHC 31.9 L RDW 13.8 Plt Count 238 MPV 10.7 Immature Gran % 0.4 Neutrophils % 63.5 Lymphocytes % 24.7 Monocytes % 6.4 Eosinophils % 4.5 Basophils % 0.5 Nucleated RBC % 0 Absolute Neutrophils 5.03 Absolute Lymphocytes 1.96 Absolute Monocytes 0.51 Absolute Eosinophils 0.36 Absolute Basophils 0.04 ESR VBG Lactate Sodium Potassium Chloride Carbon Dioxide Anion Gap BUN Creatinine Estimated GFR/1.73 m2 Glucose Calcium Total Bilirubin AST ALT Alkaline Phosphatase C-Reactive Protein Total Protein Albumin Last Vital Signs Temp 36.1 C L 03/15/21 13:41 Pulse 68 03/15/21 14:01 Resp 20 03/15/21 15:10 BP 146/64 H 03/15/21 14:01 Pulse Ox 93 03/15/21 14:10
[2021-03-15 16:42] LABS: Source Nasal/Nares
[2021-03-15 17:35] LABS: COVID-19 PCR Negative (Negative)
[2021-03-15] MEDS: PIPERACILLIN/TAZO 3.375 GM in Normal Saline 50 ML IVPB (18:25)
[2021-03-15] MEDS: VANCOMYCIN/WATER (PEG) 2 GM/400 ML BAG IVPB (18:36)
[2021-03-15] MEDS: Ascorbic Acid 500 MG TAB 250 MG PO (19:58)
[2021-03-15] MEDS: Ferrous Gluconate 324 MG TAB PO (19:58)
[2021-03-15] MEDS: Acetaminophen 500 MG TAB 1000 MG PO (19:58)
[2021-03-15] MEDS: Gabapentin 100 MG CAP 200 MG PO (19:58)
[2021-03-15] MEDS: Simvastatin 40 MG TAB PO (19:58)
[2021-03-15] MEDS: DULoxetine 30 MG CAP 60 MG PO (19:58)
[2021-03-15] MEDS: Budesonide/Formoterol 160/4.5 6 GM 60 PUFF INH IH (19:59)
--- NOTE | 2021-03-15 22:16 | NUR.NOTE ---
Nursing Note:Pt wanted to use the bedside commode and i went to go put the grippy socks on before pt got out of bed. Pt yelled at me and stated Im sick of people asking me to use those stupid socks, I told pt it was for her own safety and she should wear them any time she is out of bed. Pt refused the socks for transfer.
[2021-03-15] MEDS: Insulin Aspart 300 UNITS/3 ML PEN SC (22:35)
[2021-03-15] MEDS: Naproxen 375 MG TAB PO (22:36)
[2021-03-15] MEDS: Metoprolol CR 25 MG TABCR PO (22:36)
[2021-03-15] MEDS: HYDROcodone 5/Acetaminophen 325 TAB PO (22:36)
[2021-03-15 23:00] LABS: TSH (W/Ref FT4) 1.27 uIU/mL (0.36-3.74)
[2021-03-16] MEDS: PIPERACILLIN/TAZO 3.375 GM in Normal Saline 50 ML IVPB ×3 (01:51→18:29)
[2021-03-16] MEDS: Levothyroxine 50 MCG TAB PO (05:50)
[2021-03-16 07:17] VITALS: BP 123/75; PULSE 55; RESP 18; TEMP 36.4; O2SAT 95
[2021-03-16] MEDS: Torsemide 20 MG TAB 10 MG PO (08:12)
[2021-03-16] MEDS: Naproxen 375 MG TAB PO ×2 (08:13→21:24)
[2021-03-16] MEDS: Docusate Sodium 100 MG CAP PO ×2 (08:13→21:24)
[2021-03-16] MEDS: Ascorbic Acid 500 MG TAB 250 MG PO ×2 (08:13→21:23)
[2021-03-16] MEDS: Gabapentin 100 MG CAP 200 MG PO ×3 (08:13→21:23)
[2021-03-16] MEDS: DULoxetine 30 MG CAP 60 MG PO ×2 (08:13→21:23)
[2021-03-16] MEDS: Acetaminophen 500 MG TAB 1000 MG PO ×3 (08:14→21:24)
[2021-03-16] MEDS: Ferrous Gluconate 324 MG TAB PO ×2 (08:14→21:23)
[2021-03-16] MEDS: Ezetimibe 10 MG TAB PO (08:14)
[2021-03-16] MEDS: Pantoprazole 40 MG TABCR PO (08:16)
--- NOTE | 2021-03-16 08:58 | PDOC.CMIN ---
- If Service Date Differs Date of service: 03/16/21 Time of Service: 08:58 Care Management Initial Assess REASON FOR HOSPITALIZATION:: Cellulitis PAST MEDICAL HISTORY/PAST SURGICAL HISTORY:: Medical History . Abdominal aortic aneurysm (11/27/12). Identified 10/31/12 CT abd-pelvis; 4cm; stable 4.1 cm 07/2014 CT, 4.3cm 11/2016, 5.5cm 03/04/17 ([facility] [place] not sure if it is worth following her AAA, as she is not surgical candidate. defer to PCP. Allergic rhinitis (12/09/12). Anaerobic bacteremia. 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 Dr. Ward. Bacteremia due to Gram-positive bacteria. Calculus of kidney and ureter. Cardiomyopathy. Dr Fair, EF 45% Jun 2014 ECHO (h/o much worse). 10/2016 ECHO: EF 40-45%. 10/2016 MPI: no acute, but persistent old infarct. Carpal tunnel syndrome (08/14/12). resolved s/p b/l release. Chronic back pain. History of chronic opioids, now none. Chronic kidney disease, stage III (moderate) (08/14/12). Cortical atrophy R kidney on CT 07/2014; multiple cysts. Cognitive attention deficit. needs multiple repetitions of information. COPD, mild (07/02/17). PFTs. Coronary artery disease involving penobscot coronary artery of penobscot heart. INFERIOR [place] 1996, 100% RCA occlusion; large inf defect on perfusion scan, dr Fair. Depressive disorder (08/14/12). Diabetes type 2, uncontrolled. though she has had education over the years, still seems not to understand carb counting. ideally needs someone to educate son as he buys her food. also needs hands-on teaching with nutrition labels, etc. Difficulty transferring from bed to wheelchair. DME hospital bed has helped. Difficulty transferring from toilet to wheelchair. Steph investigating commode. DJD of left shoulder (01/01/13). Dr. Guerra. DJD of right shoulder (01/01/13). 12/2012 x-ray severe DJD glenohumeral joint. Dr. Guerra; not a surgical candidate for replacement. DNI (do not intubate). DNR (do not resuscitate). Episode of seizures in July 2012. Esophageal reflux disease (07/24/11). UPPER GI SERIES 11/14/2012, MOD HIATAL HERNIA SEVERE GERD. Goals of care, counseling/discussion. DNR/DNI. COLST done. wants to stay home. may need new agent if/when Steph moves out of state as planned. Headache (08/31/13). Hypertension. Hypothyroidism. Incarcerated umbilical hernia (09/06/15). Marijuana dependence. has smoked nearly every day since aged 17. helps with mood and pain, D reports. Nausea and vomiting (08/01/14). a. previous history of possible marijuana induced hyperemesis. Neurogenic bladder (07/24/11). Does not need to self-cath. 11/2016: +Urinary retention [facility] inpt requiring cath; resolved by time of discharge. Nicotine dependence. not interested in quitting. knows that smoking makes all her problems worse. Olecranon bursitis, left elbow. Resolved with appropriate DME. Other and unspecified hyperlipidemia (08/14/12). Perirectal abscess. With associated hospitalization 2019. POLST (Physician Orders for Life-Sustaining Treatment). signed 06/01/20. Recurrent falls. RLS (restless legs syndrome). Spinal stenosis of lumbar region with neurogenic claudication (12/08/13). 04/13/2013 MRI Lumbar Spine: Facet arthropathy, DJD, L4-5, L5-S1 central spinal and neural foraminal stenosis. Neurosurgery referral, but not a surgical candidate. [facility] chronic pain service. Chronic Pain. [facility] Pain Center consult 10/26/15. [facility] Spine Center consult 03/04/17 (Sanket Sawant MD). 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 Neuro work-up . 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 Ambulates with cane when out; walker at home. Tinea corporis. Type II diabetes mellitus with neurological manifestations (05/04/14). Goal A1c < 7.5%. Schein, neuropathy; Charcot's foot 03/19/13. [employer]. Wheelchair bound. no falls since starting using WC. permanent need. severe diabetic nephropathy. needs more adaptive equipment in the home. Surgical History . Appendectomy. Childhood surgery, no date given by pt.HE. Hemiarthroplasty (06/13/15). Dr Guerra. Paulina shoulder. History of carpal tunnel release of both wrists (~05/2012). Hx of umbilical hernia repair (09/06/15). Incarcerated umbilical hernia repair (09/06/15). Tonsillectomy. childhood surgery, no date given by pt.HE PREVIOUS FUNCTIONAL STATUS/SOCIAL/FAMILY SUPPORTS:: Carmel lives in [place] with her son Ethan. She has been wheelchair bound for over a year and requires help with her ADL's. She has a caregiver through [employer]. Her son is supportive and helps her around the house. Her sister Ainsley is also supportive of her needs. Carmel uses [employer], however lately Ainsley has been providing the majority of her transportation. Pt also shares that Ainsley is in the process of moving to [place]. CURRENT FUNCTIONAL STATUS:: Carmel was laying in bed when CM met with her. She was alert and oriented. She is currently on IV antibiotics and blood cultures are pending. Carmel shared with CM that she is going home when she's discharged from the hospital and not interested in going to a SNF for short term rehab. CM will continue to support discharge planning needs. ADVANCE DIRECTIVES:: None, pt is not interested at this time. Has patient been provided with info about the portal/API?: Yes Did the patient sign up for the portal?: Yes (Prior to admission) CODE STATUS:: DNR/DNI INSURANCE COVERAGE / FINANCIAL ISSUES:: Medicaid. Medicare CURRENT HOME/COMMUNITY SERVICES/EQUIPMENT:: Home care services through [employer]. [facility] RN/PT services. Wheelchair. [facility] PRIMARY CARE PHYSICIAN:: Mai Castelan POTENTIAL DISCHARGE NEEDS:: PO antibiotics. [facility] W[facility] van. Follow up appointments PATIENT/FAMILY EDUCATION NEEDS:: Review discharge instructions, limitations and plan to follow up with community providers and discharge plan of care as prescribed. ask me three. TRANSPORTATION:: Via [facility] W[facility] van PLAN:: Anticipate Carmel will be discharged home when medically cleared by provider. She will transport via [employer] w/c van and follow up with community providers.
[2021-03-16] MEDS: Losartan 50 MG TAB PO (09:47)
[2021-03-16] MEDS: Normal Saline Flush 10 ML SYR IVP ×2 (10:26→21:20)
[2021-03-16] MEDS: Insulin Aspart 300 UNITS/3 ML PEN SC ×3 (11:45→21:21)
--- NOTE | 2021-03-16 11:45 | DI.US_ITS ---
Exam(s) US LOWER EXTREMITY VENOUS LT EXAM: US LOWER EXTREMITY VENOUS LT CLINICAL HISTORY: edema TECHNIQUE: Grayscale, color, and doppler imaging of the deep venous system of the left lower extremi ty was performed. COMPARISON: US US UPPER EXTREMITY VENOUS RT from 02/02/2020 FINDINGS: There is no evidence of intraluminal thrombus and there is normal compression and augmentation demons trated within the common femoral vein, femoral vein, and popliteal vein. In the ipsilateral calf the interrogated veins also exhibit normal compression/ augmentation properti es. The ipsilateral saphenofemoral junction is patent. IMPRESSION: 1. No evidence of DVT in the left lower extremity. 2. DATA REPOSITORY:
--- NOTE | 2021-03-16 11:53 | PGE_ITS ---
Date of Service Date of service: 03/16/21 Time of Service: 11:54 Assessment and Plan Assessment and plan (1) Edema of left lower extremity: Status: Acute Assessment and plan: awaiting ultrasound (2) Cellulitis of foot: Status: Acute Assessment and plan: failed outpatient continue vanco and zosyn as initiated in ED no evidence of osteomyelitis on imaging elevate as much as possible. (3) Diabetes type 2, uncontrolled: Status: Chronic Assessment and plan: diabetic diet, sliding scale as needed A1C december 2020 was 10.1 diabetic education Qualifiers: Glycemic state: with hyperglycemia Qualified Code(s): E11.65 - Type 2 diabetes mellitus with hyperglycemia (4) Noncompliance with medication regimen: Status: Chronic (5) Chronic kidney disease, stage III (moderate): Status: Chronic Assessment and plan: at baseline, monitor and avoid nephrotoxic medication Qualifiers: Chronic kidney disease stage 3 subtype: unspecified whether 3a or 3b Qualified Code(s): N18.30 - Chronic kidney disease, stage 3 unspecified (6) Hypothyroidism: Status: Chronic Assessment and plan: TSH 1.27 on Mar 15, 2021 continue synthyroid (7) Hypertension: Status: Chronic Assessment and plan: blood pressure stable monitor, continue home medication discussed with Dr Espino Qualifiers: Hypertension type: essential hypertension Qualified Code(s): I10 - Essential (primary) hypertension Subjective Subjective Interval history since last seen: increased swelling to left lower extremity. redness improved to right foot. no new c/o Exam Const General: cooperative, comfortable, no acute distress, disheveled, frail appearing (older than stated age) and ill appearing chronically Orientation: alert, awake and oriented x3 HENNM Head: normal to inspection, normocephalic and atraumatic Face and sinus: normal facial exam Mouth: moist mucous membranes Eyes General: appearance normal, both eyes and all related structures Conjunctivae: conjunctivae normal Neck Neck: normal visual inspection, trachea midline and supple Resp Effort & Inspection: normal respiratory effort and able to speak in complete sentences Auscultation: diminished lung sounds bilaterally in the lower lung aleman Cardio Rate: regular rate Rhythm: regular rhythm GI Inspection: obesity Palpation: soft and nontender Back/Spine/Pelvis Back: No back tenderness Skin General skin exam: erythema Neuro General: patient alert, patient awake, patient oriented x3, moves all extremiti es and no focal motor deficits Cognition: normal cognition Motor: muscle tone normal throughout Sensory Exam: no sensory deficits noted Extrem General: full ROM and edema Laterality: left (lower) Psych Appearance: grossly normal Mental Status: mental status grossly normal Objective Last Vital Signs Temp 36.4 C L 03/16/21 07:17 Pulse 55 L 03/16/21 07:17 Resp 18 03/16/21 07:17 BP 123/75 03/16/21 07:17 Pulse Ox 95 03/16/21 07:17 Laboratory Results - last 24 hr 03/15/21 03/15/21 03/15/21 14:45 14:45 14:45 WBC RBC Hgb Hct MCV MCH MCHC RDW Plt Count MPV Immature Gran % Neutrophils % Lymphocytes % Monocytes % Eosinophils % Basophils % Nucleated RBC % Absolute Neutrophils Absolute Lymphocytes Absolute Monocytes Absolute Eosinophils Absolute Basophils ESR 22 VBG Lactate 1.0 Sodium 142 Potassium 3.9 Chloride 105 Carbon Dioxide 29.2 Anion Gap 7.8 BUN 25 H Creatinine 1.1 H Estimated GFR/1.73 m2 49.54 Glucose 181 H Calcium 10.1 Total Bilirubin 0.3 AST 13 L ALT 23 Alkaline Phosphatase 114 C-Reactive Protein 0.45 H Total Protein 7.5 Albumin 3.7 TSH COVID-19 Source SARS-CoV-2 (PCR) 03/15/21 03/15/21 03/15/21 14:45 14:45 16:38 WBC 7.93 RBC 4.98 Hgb 13.8 Hct 43.2 MCV 86.7 MCH 27.7 MCHC 31.9 L RDW 13.8 Plt Count 238 MPV 10.7 Immature Gran % 0.4 Neutrophils % 63.5 Lymphocytes % 24.7 Monocytes % 6.4 Eosinophils % 4.5 Basophils % 0.5 Nucleated RBC % 0 Absolute Neutrophils 5.03 Absolute Lymphocytes 1.96 Absolute Monocytes 0.51 Absolute Eosinophils 0.36 Absolute Basophils 0.04 ESR VBG Lactate Sodium Potassium Chloride Carbon Dioxide Anion Gap BUN Creatinine Estimated GFR/1.73 m2 Glucose Calcium Total Bilirubin AST ALT Alkaline Phosphatase C-Reactive Protein Total Protein Albumin TSH 1.27 COVID-19 Source Nasal/Nares SARS-CoV-2 (PCR) Negative
--- NOTE | 2021-03-16 13:53 | W.DIABETESNO ---
Date of service: 03/16/21 Time of Service: 13:54 Diabetes Note NOTE: Assessment: 66yo female admitted with L food cellulitis and PMH significant for uncontrolled DMII, non-compliance with medication, CKDIII, Hypothyroid, HTN, obesity, Iron def. anemia, HLD, CAD, mild COPD, tobacco and daily marijuana use. Pertinent meds: Docusate sodium, duloxetine, ezetimibe, gabapentin, levothyroxine, losartan, metoprolol, pantoprazole, zosyn, simvastatin, vitamin C and iron; prn hydrocodone. Resistant ss protocol for insulin aspart and 40 units lantus BID (note pt takes degludec at home for long acting insulin). Unable to see pt x 2 due to meeting with provider and indisposed on commode. Will follow up for [id number] and gather pt nutrition history and offer education. BMI of 32.6kg/m2 consistent with stage I obesity. Noted that pt is wheelchair bound. A1c in december 2020 was 10.1 and c/w poor glycemic control. Estimated nutrition needs: 1815kcals (REEx1.2AF), 95g protein (1.5g/kg IBW), 2617mL fluid (obese adult pt method) Diagnosis: Limited adherence to nutrition-related recommendations r/t low education level AEB recent A1C >10% and history detailing grade 10 as highest grade completed. Stage I obesity AEB current BMI 30-34.9. Intervention: will attempt [id number] visit again and approach [facility] re: possible support via outpatient nutrition education and if she is open to working with nutrition staff in trialing a continuous glucose monitor and follow up. Monitoring & Evaluation: Will monitor labs, wt, intake for significant nutrition-related changes, will approach pt to attempt education. Xavier Chaney, NDTR, international account executive Time Spent in Nutritional Counseling and Treatment: 0
[2021-03-16 15:33] VITALS: BP 127/69; PULSE 75; RESP 14; TEMP 36.1; O2SAT 97
[2021-03-16] MEDS: VANCOMYCIN/WATER (PEG) 1 GM/200 ML BAG IVPB (16:16)
--- NOTE | 2021-03-16 16:47 | IN_ITS ---
Date of service: 03/16/21 Time of Service: 16:47 PT Notes Visit Reasons: Cellulitis Physical Therapy Inpatient Initial Evaluation Dates: 03/16/2021 Referring Doctor: Treva Jacobs NP PT Orders: PT CONSULT: Eval/treat Precautions: Fall. Standard. WBAT on B LE with protective footwear. Patient Profile/Admitting Diagnosis: Lisa is a 66-year-old female with spinocerebellar ataxia, chronic back pain, type 2 diabetes mellitus, cardiomyopathy, and COPD who presented to the ED on 03/15/2021 with diagnoses of f cellulitis of right foot, type 2 diabetes mellitus, noncompliance with medication, chronic kidney disease stage III, hypothyroidism, and hypertension. PMHX: Medical History Abdominal aortic aneurysm (11/27/12) Identified 10/31/12 CT abd-pelvis; 4cm; stable 4.1 cm 07/2014 CT, 4.3cm 11/2016, 5.5cm 03/04/17 [place] 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 Difficulty transferring from bed to wheelchair [facility] hospital bed has helped Difficulty transferring from toilet to wheelchair Steph investigating commode 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 Guerra DJD of right shoulder (01/01/13) 12/2012 x-ray severe DJD glenohumeral joint Dr. Guerra; not a surgical candidate for replacement DNI (do not intubate) DNR (do not resuscitate) Episode of seizures in July 2012 Esophageal reflux disease (07/24/11) UPPER GI SERIES 11/14/2012, MOD HIATAL HERNIA SEVERE GERD Goals of care, counseling/discussion DNR/DNI COLST done wants to stay home may need new agent if/when Steph moves out of state as planned Headache (08/31/13) Hypertension Hypothyroidism Incarcerated umbilical hernia (09/06/15) Marijuana dependence has smoked nearly every day since aged 17 helps with mood and pain, D reports Nausea and vomiting (08/01/14) a. previous history of possible marijuana induced hyperemesis Neurogenic bladder (07/24/11) Does not need to self-cath 11/2016: +Urinary retention [facility] inpt requiring cath; resolved by time of discharge Nicotine dependence not interested in quitting knows that smoking makes all her problems worse Olecranon bursitis, left elbow Resolved with appropriate DME Other and unspecified hyperlipidemia (08/14/12) Perirectal abscess With associated hospitalization 2019 POLST (Physician Orders for Life-Sustaining Treatment) signed 06/01/20 Recurrent falls RLS (restless legs syndrome) Spinal stenosis of lumbar region with neurogenic claudication (12/08/13) 04/13/2013 MRI Lumbar Spine: Facet arthropathy, DJD, L4-5, L5-S1 central spinal and neural foraminal stenosis Neurosurgery referral, but not a surgical candidate [facility] chronic pain service Chronic Pain [facility] Pain Center consult 10/26/15 [facility] consult 03/04/17 (Sanket Sawant MD) 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) Neuro work-up wchun +Hereditary, 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 Ambulates with cane when out; walker at home Tinea corporis Type II diabetes mellitus with neurological manifestations (05/04/14) Goal A1c < 7.5% Schein, neuropathy; Charcot's foot 03/19/13 [employer] Wheelchair bound no falls since starting using WC permanent need severe diabetic nephropathy needs more adaptive equipment in the home Surgical History Appendectomy Childhood surgery, no date given by pt.HE Hemiarthroplasty (06/13/15) Dr Charlie Gallardo shoulder History of carpal tunnel release of both wrists (~05/2012) Hx of umbilical hernia repair (09/06/15) Incarcerated umbilical hernia repair (09/06/15) Tonsillectomy childhood surgery, no date given by pt.HE Social History/Home Situation: Son lives with patient in a private home. Staes that son does everything for her but points out that the son works during the day. She states she has a walk-in shower and that she has a lady who comes in 2 hours everyday to help out with chores and meals. No longer does long distance ambulation. Equipment Owned/DME: Front-wheeled walker, single-point cane, wheelchair Subjective: Denies dizziness, chest pain, and headache throughout. Does endores 2-3/10 pain in the L foot. refuses to wear slipper socks stating that anything touching the foot brings her discomfort. Objective: General Observation: Obese. In NAD. Skin breakdown/opening to R foot (see wound care nurse consult notes). R foot mildly erythematous. Unable to spread toes 3rd-5th on the R side. Mental Status: Alert and oriented x 4 Pain: 2-3/10 on the R foot ROM: Right Upper Extremity: Shoulder Flexion allows up to 80 degrees. Shoulder abduction allows up to 90 degree. Elbow flexion WFL. Wrist flexion WFL. Opening and closing of hand WFL. Left Upper Extremity: Shoulder Flexion allows up to 100 degrees. Shoulder abduction allows up to 100 degrees. Elbow flexion WFL. Wrist flexion WFL. Opening and closing of hand WFL. Right Lower Extremity: Hip flexion 20 degrees past 90 while seated on chair. Hip abduction WFL. Knee flexion WFL. Knee extension -20 degrees. Ankle dorsiflexion WFL. Ankle plantarflexion WFL. Left Lower Extremity: Hip flexion 20 degrees past 90 while seated on chair. Hip abduction WFL. Knee flexion WFL. Knee extension -20 degrees. Ankle dorsiflexion WFL. Ankle plantarflexion WFL. Strength: Right Upper Extremity: Shoulder flexors 3-/5. Shoulder abductors 3-/5. Elbow flexors 4-/5. Elbow extensors 4-/5. Tile Setter strong. Left Upper Extremity: Shoulder flexors 3-/5. Shoulder abductors 3-/5. Elbow flexors 4-/5. Elbow extensors 4-/5. Tile Setter strong. Right Lower Extremity: Hip flexors 3-/5. Hip abductors 3+/5. Knee flexors 3+/5. Knee extensors 3-/5. Ankle dorsiflexors 3-/5. Ankle plantarflexors 3-/5. Left Lower Extremity: Hip flexors 3-/5. Hip abductors 3+/5. Knee flexors 3+/5. Knee extensors 3-/5. Ankle dorsiflexors 3-/5. Ankle plantarflexors 3-/5. Bed Mobility/Transfers: Sit to stand from bedside commode minimal assist Stand to sit onto bed contact guard assist with increased tendency to flop Chair to bed contact guard assist Gait: Only was agreeable to taking 5 steps from bedside commode back to bed stating that she is fatigued. Refused to wear any footwear. L foot steps to R with L step length decreased. Balance: Static Sitting: Normal Dynamic Sitting: Normal Static Standing: Fair Dynamic Standing: Fair Assessment: Lisa demonstrates functional mobility decline requiring the the mario of a FWW for transfer task performance and short 5 steps using front-wheeled walker. May require encouragement to participate in therapy. Patient presents with clinical signs and symptoms consistent with current/admitting diagnoses that have resulted to mobility limitations, gait instability, generalized weakness, and impairment of motor control as demonstrated by the following impairment level findings: 1. Decreased strength to B UE/LE major muscle groups (chronic) 2. Impaired sitting/standing balance 3. Impaired activity tolerance 4. Need for oxygen supplementation at all times 5. Wound to R foot 6. Non-compliant with footwear recommendations Impairments are contributing to the following functional limitations: 1. Dependent bed mobility skills 2. Increased dependence with transfers 3. Inability to safely ambulate without assistive device and physical assistance 4. Increase completion time for mobility ADL performance 5. Increased fall risk 6. Inability to negotiate steps alone safely 7. Increased risk for skin infection and further injury Goals: Goals X1 week 1. Supine-Sit independent 2. Sit-Supine independent 3. Sit-Stand independent 4. Stand-Sit independent 5. Bed-Chair independent 6. Chair-Bed independent 7. Independent gait on level surface with use of least restrictive device for at least 50 feet without report of pain nor dyspnea 8. Independent stair negotiation while holding onto bilateral rails for at least 5steps without report of pain nor dyspnea 9. Independent with home exercise program 10. Good static and dynamic standing balance/tolerance DISCHARGE RECOMMENDATIONS: Will continue to assess for the safest D/C destination/recommendation and coordinate with nurse healthcare manager accordingly. Basing on today's evaluation, patient may benefit from a short SNF stay prior to going home. TREATMENT CODE/TIME: 61021 x 23 minutes beginning at 16:47 PM. Thank you very much for this referral. Alison Onofre PT, DPT, CLT [facility] [place], [place]
--- NOTE | 2021-03-16 17:35 | WOUNDCONS ---
- If Service Date Differs Date of service: 03/16/21 Time of Service: 17:00 Wound Initial Evaluation Narrative: 66 YOF seen here for cellulitis. PMHX significant for diabetes. Goal of treatment discussed with patient . She signs consents for the consult. H&P, allergies, labs and radiology were reviewed prior to the consult. Important to point venous US was negative for DVT. - Wound Right Great toe Wound Type: Diabetic Ulcer Wound General Appearance: Blackened, Necrotic Wound Bed Greatest Portion: Black (Eschar) Wound Surrounding Tissue Appearance: Edematous-pitting Percent of Wound Bed Granulated/Red: 0 Percent of Wound Bed Eschar/Black: 100 Wound Length: 1.3 cm Wound Width: 0.7 cm Wound Depth: 0.3 cm Wound Drainage Amount: None Wound Drainage Odor: None/Absent Wound Drainage Description: No drainage Wound Topical Solution/Irrigant: Antibiotic Irrigant Wound Debridement Method: Mechanical Wound Debridement Result: Necrotic Remains Wound Debridement Amount of Tissue Removed: None 3rd toe Wound Type: Diabetic Ulcer Degree of Burn: 2nd Degree Wound General Appearance: Blackened, Unapproximated Wound Bed Greatest Portion: Black (Eschar) Wound Surrounding Tissue Appearance: Edematous Percent of Wound Bed Eschar/Black: 100 Wound Length: 1 cm Wound Width: 0.3 cm Wound Depth: 0.1 cm (greater than) Wound Drainage Amount: None Wound Drainage Odor: None/Absent Wound Drainage Description: No drainage Wound Topical Solution/Irrigant: Antibiotic Irrigant Wound Debridement Method: Mechanical Wound Debridement Result: Pt Unable to Tolerate Wound Debridement Amount of Tissue Removed: None - Circulation, Sensation, Motion Edema Degree: 1+ Peripheral Pulse Strength: Weak Capillary Refill: Less than 3 seconds Sensation Description: Pain Skin Temperature: Cool Skin Color: Pale - TRINY Comment:: unable to calculate, possible PAD or incompressible - Pain Pain Level: 10 Pain Scale Used: Visual Analog Scale 0-10 Pain Description: Sharp, Acute Pain Duration (Hours): 0 (with debridement) Pain Duration/Frequency: Other (with debridement) Patient stated she does not wear proper footwear around the house. She is a diabetic, does not schedule regular foot care, though she is familiar with Dr. Ward. She was unable to tolerate debridement on the third metatarsal. She finally yelled stop means stop. Cleaning was stopped at that point. Dr Ward will be consulted. - Treatment/Dressing Change Topicals/Ointments: Anasept Gel Cleanse With: Anasept, Debrisoft Dressing Types: Mepilex w/Border - Recomendation Recomendation:: Cleanse with Anasept spray and Debrisoft Lolly. Pat dry with gauze. Apply Anasept gel to the wound bed at the first and 3rd metatarsal. Cover with Mepilex border. Change every three days or PRN. Physcian/Nurse Practioner Notified: Yes (Dr. Espino)
--- NOTE | 2021-03-16 18:06 | W.PODCONSULT ---
Date of service: 03/16/21 Time of Service: 18:06 History of Present Illness History of Present Illness Chief Complaint: Traumatic ulcers right hallux and fourth digit Narrative: 66-year-old female with multiple comorbidities including recurrent falls poorly controlled diabetes with peripheral neuropathy who spends most of her time in a wheelchair reports abrasion injury to the right foot which subsequently became infected requiring admission via the emergency department. She states this started about 2 weeks ago. She is well-known to me from my office practice but has not been seen since the Covid pandemic started. [facility] Medical History Abdominal aortic aneurysm (11/27/12) Identified 10/31/12 CT abd-pelvis; 4cm; stable 4.1 cm 07/2014 CT, 4.3cm 11/2016, 5.5cm 03/04/17 ([facility]). 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 Ward Bacteremia due to Gram-positive bacteria Calculus of kidney and ureter Cardiomyopathy Dr Fair, EF 45% Jun 2014 ECHO (h/o much worse) 10/2016 ECHO: EF 40-45% 10/2016 MPI: no acute, but persistent old infarct Carpal tunnel syndrome (08/14/12) resolved s/p b/l release Chronic back pain History of chronic opioids, now none Chronic kidney disease, stage III (moderate) (08/14/12) Cortical atrophy R kidney on CT 07/2014; multiple cysts Cognitive attention deficit needs multiple repetitions of information COPD, mild (07/02/17) PFTs Coronary artery disease involving [place] coronary artery of [place] heart INFERIOR [place] 1996, 100% RCA occlusion; large inf defect on perfusion scan, dr Fair Depressive disorder (08/14/12) Diabetes type 2, uncontrolled though she has had education over the years, still seems not to understand carb counting ideally needs someone to educate son as he buys her food also needs hands-on teaching with nutrition labels, etc. 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 Guerra DJD of right shoulder (01/01/13) 12/2012 x-ray severe DJD glenohumeral joint Dr. Guerra; not a surgical candidate for replacement DNI (do not intubate) DNR (do not resuscitate) Episode of seizures in July 2012 Esophageal reflux disease (07/24/11) UPPER GI SERIES 11/14/2012, MOD HIATAL HERNIA SEVERE GERD Goals of care, counseling/discussion DNR/DNI COLST done wants to stay home may need new agent if/when Steph moves out of state as planned Headache (08/31/13) Hypertension Hypothyroidism Incarcerated umbilical hernia (09/06/15) Marijuana dependence has smoked nearly every day since aged 17 helps with mood and pain, D reports Nausea and vomiting (08/01/14) a. previous history of possible marijuana induced hyperemesis Neurogenic bladder (07/24/11) Does not need to self-cath 11/2016: +Urinary retention [facility] inpt requiring cath; resolved by time of discharge Nicotine dependence not interested in quitting knows that smoking makes all her problems worse Olecranon bursitis, left elbow Resolved with appropriate DME Other and unspecified hyperlipidemia (08/14/12) Perirectal abscess With associated hospitalization 2019 POLST (Physician Orders for Life-Sustaining Treatment) signed 06/01/20 Recurrent falls RLS (restless legs syndrome) Spinal stenosis of lumbar region with neurogenic claudication (12/08/13) 04/13/2013 MRI Lumbar Spine: Facet arthropathy, DJD, L4-5, L5-S1 central spinal and neural foraminal stenosis Neurosurgery referral, but not a surgical candidate [facility] chronic pain service Chronic Pain [facility] Pain Center consult 10/26/15 [facility] Spine Center consult 03/04/17 (Sanket Sawant MD) 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) Neuro work-up 2010/wchun +Hereditary, 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 Ambulates with cane when out; walker at home Tinea corporis Type II diabetes mellitus with neurological manifestations (05/04/14) Goal A1c < 7.5% Schein, neuropathy; Charcot's foot 03/19/13 [employer] Wheelchair bound no falls since starting using WC permanent need severe diabetic nephropathy needs more adaptive equipment in the home Surgical History Appendectomy Childhood surgery, no date given by pt.HE Hemiarthroplasty (06/13/15) Dr Charlie Gallardo shoulder History of carpal tunnel release of both wrists (~05/2012) Hx of umbilical hernia repair (09/06/15) Incarcerated umbilical hernia repair (09/06/15) Tonsillectomy childhood surgery, no date given by pt.HE Family History Mother , at 73 yo from dementia Dementia Diabetes Stroke Blind Father , MVA (truck) accident at 45yo No problems noted. Sister Age: 60 Thyroid cancer Brother , from complications of diabetes age 60 Diabetes Brother Diabetes Heart disease Colon cancer Ulcerative colitis Sister Obesity Prediabetes Arthritis Son Substance abuse attends [facility]; h/o heroin and other opioid addiction Other FH: mental illness Social History Smoking/Tobacco Use Status: Current every day Tobacco Type: cigarettes Tobacco: How many years used: 54 Quit status: not considering quitting Counseling given: counseling >3 minutes Smoking risk assessment performed?: Yes Alcohol Intake: never Drug use: Daily Substance use type: marijuana Counseling given: Yes Details: pt states she smokes marijuana on a daily basis Adopted: No Caregiver/Support person: Yes Foster care: No Household members: children Housing: house Number of Children: 1 number of grandchildren: 0 Communication Needs: Corrective Lenses Education Level: high school Details: didn't finish sophomore year Do you need help understanding health information?: Always 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; 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 Pets and animals: Yes Current gender identity: female What is your relationship status?: How often do you talk on the phone with friends or family?: three or more times per week How often do you get together with friends or relatives?: twice per week Panel score (0-1 are the most socially isolated patients): 1 What type of physical activity do you participate in: none and wheelchair-bound Special eliana needs: No Seatbelt use: sometimes Working smoke detector in home: Yes Fire extinguisher in home: Yes Do you feel safe at home: No Do you feel safe in your relationship?: No Additional Social history: Lives with sonEthan. Sister Steph is her DPOA. Sister planning on moving out of state late 2020, early 2021. Son works during the day. SHe loves wild animals, feeds birds and squirrels. Had a black bear coming onto her porch for a while. Raccoons too. Was [facility]. Everyone there was awesome. Hated not being able to smoke cigs or marijuana. Otherwise, good stay. Open to returning when necessary. Exam Narrative Exam Narrative: Carmel is seen resting comfortably in her room. She recognizes me when I entered the room. Her chart has been reviewed in its entirety. Physical exam: Peripheral pulses are manually palpable at the ankles 1 out of 4 to plus 1 out of 4 left foot being a little more robust than the right. Capillary fill to all toes is within normal limits. Trace peripheral edema noted. Venous studies performed earlier today were negative for DVT. I am told that ABIs were attempted earlier in the day and she is noncompressible. Calves are soft to palpation no DVTs noted Dermatologic exam: Toenails are chronically fungal. They are yellowed, thick, dystrophic, hypertrophic, elongated, crypt ptotic and in need of debridement. All toenails have heavy subungual debris with periungual tenderness. There is no drainage. Partial-thickness ulcerations are noted over the dorsal aspect of the right first metatarsal phalangeal joint. Heavy eschar is appreciated. Adherent scab is noted on a second lesion just distal and medial to the one just described. At this time no swetha cellulitis is observed. She has another abrasion?ulceration affecting the right fifth toe. Superficial skin slough is appreciated without undermining. No active purulence was noted no cellulitis observed at this level. Muscle groups are 5 out of 5 bilaterally although she is reportedly wheelchair dependent. She does states she is able to stand up and pivot but due to her neuropathy she has severe balance impairment and is generally deconditioned. She has flexion contractures of the toes which is semiflexible but no acute joint inflammations are noted. Neurologically toes were downgoing but she does have significant diabetic peripheral neuropathy. Impressions: Poorly controlled diabetic with peripheral arterial disease and neuropathy Traumatically created abrasion?ulceration right first MPJ dorsally and fourth digit Onychomycosis Plan: The wounds should be washed daily with soap and water and gently dried. Collagenase Santyl to be applied to the ulcer over the dorsal aspect of the first MPJ and covered with a light gauze dressing daily. , PolyMem should be applied to the right fourth toe with a strip cut to size so as to just cover the wound. Manually and electrically debrided all nails 1 through 5 bilaterally to patient tolerance. Gently curettaged all debris free of the nail grooves. Marked relief was appreciated upon debridement. She is currently on Zosyn and vancomycin which appears to have significantly improved the cellulitis in her right foot. WBCs are normal, sed rate is within normal limits. CRP is minimally elevated at 0.45. Blood cultures are negative to date. No wound cultures are available. Since her clinical picture look favorable, narrowing her antibiotic regimen is reasonable, I will defer to the hospitalist in this regard. Thank you for the consultation. Results Last Vital Signs Temp 36.1 C L 03/16/21 15:33 Pulse 75 03/16/21 15:33 Resp 14 03/16/21 15:33 BP 127/69 03/16/21 15:33 Pulse Ox 97 03/16/21 15:33 Labs Result diagrams: 03/15/21 14:45 03/15/21 14:45 Labs: Laboratory Results - last 24 hr 03/15/21 14:45 TSH 1.27
[2021-03-16] MEDS: HYDROcodone 5/Acetaminophen 325 TAB PO (18:29)
--- NOTE | 2021-03-16 18:57 | NUR.NOTE ---
Nursing Note: I have reviewed the charting of Neda Key'Han and find it acceptable.
[2021-03-16] MEDS: Insulin Glargine 300 UNITS/3 ML PEN 40 UNITS SC (21:20)
[2021-03-16] MEDS: Budesonide/Formoterol 160/4.5 6 GM 60 PUFF INH IH (21:22)
[2021-03-16] MEDS: Simvastatin 40 MG TAB PO (21:24)
[2021-03-16] MEDS: Metoprolol CR 25 MG TABCR PO (21:24)
[2021-03-16 23:23] VITALS: BP 144/76; PULSE 61; RESP 18; TEMP 35.9; O2SAT 96
[2021-03-17] MEDS: PIPERACILLIN/TAZO 3.375 GM in Normal Saline 50 ML IVPB ×3 (01:18→20:00)
[2021-03-17] MEDS: Normal Saline Flush 10 ML SYR IVP ×4 (01:19→18:06)
[2021-03-17] MEDS: Normal Saline 500 ML 30 ML IVPB ×2 (01:19→20:02)
[2021-03-17] MEDS: VANCOMYCIN/WATER (PEG) 1 GM/200 ML BAG IVPB ×2 (05:13→16:46)
[2021-03-17] MEDS: Levothyroxine 50 MCG TAB PO (05:13)
[2021-03-17 07:30] VITALS: BP 148/79; PULSE 60; RESP 17; TEMP 35.9; O2SAT 98
[2021-03-17] MEDS: Ezetimibe 10 MG TAB PO (07:40)
[2021-03-17] MEDS: Naproxen 375 MG TAB PO (07:40)
[2021-03-17] MEDS: Gabapentin 100 MG CAP 200 MG PO ×3 (07:41→20:01)
[2021-03-17] MEDS: DULoxetine 30 MG CAP 60 MG PO ×2 (07:41→20:01)
[2021-03-17] MEDS: Ascorbic Acid 500 MG TAB 250 MG PO ×2 (07:41→20:02)
[2021-03-17] MEDS: Acetaminophen 500 MG TAB 1000 MG PO ×3 (07:41→20:01)
[2021-03-17] MEDS: Torsemide 20 MG TAB 10 MG PO (07:41)
[2021-03-17] MEDS: Ferrous Gluconate 324 MG TAB PO ×2 (07:41→20:02)
[2021-03-17] MEDS: Docusate Sodium 100 MG CAP PO ×2 (07:41→20:02)
[2021-03-17] MEDS: Pantoprazole 40 MG TABCR PO (07:42)
[2021-03-17] MEDS: Budesonide/Formoterol 160/4.5 6 GM 60 PUFF INH IH ×2 (07:42→20:01)
[2021-03-17] MEDS: Insulin Aspart 300 UNITS/3 ML PEN SC ×4 (08:47→21:57)
[2021-03-17] MEDS: Insulin Glargine 300 UNITS/3 ML PEN 40 UNITS SC ×2 (08:48→21:57)
[2021-03-17] MEDS: Losartan 50 MG TAB PO (08:49)
--- NOTE | 2021-03-17 10:57 | W.PM.PROGNOT ---
Date of Service Date of service: 03/17/21 Time of Service: 10:57 Assessment and Plan Assessment and plan (1) Edema of left lower extremity: Status: Acute Assessment and plan: negative ultrasound elevate, teds (2) Cellulitis of foot: Status: Acute Assessment and plan: failed outpatient continue vanco and zosyn day 2, no evidence of osteomyelitis on imaging elevate as much as possible. Dr Ward consulted, see note. (3) Diabetes type 2, uncontrolled: Status: Chronic Assessment and plan: diabetic diet, sliding scale as needed A1C december 2020 was 10.1 diabetic education Qualifiers: Glycemic state: with hyperglycemia Qualified Code(s): E11.65 - Type 2 diabetes mellitus with hyperglycemia (4) Noncompliance with medication regimen: Status: Chronic (5) Chronic kidney disease, stage III (moderate): Status: Chronic Assessment and plan: at baseline, monitor and avoid nephrotoxic medication Qualifiers: Chronic kidney disease stage 3 subtype: unspecified whether 3a or 3b Qualified Code(s): N18.30 - Chronic kidney disease, stage 3 unspecified (6) Hypothyroidism: Status: Chronic Assessment and plan: TSH 1.27 on Mar 15, 2021 continue synthyroid (7) Hypertension: Status: Chronic Assessment and plan: blood pressure stable monitor, continue home medication discussed with Dr Espino Qualifiers: Hypertension type: essential hypertension Qualified Code(s): I10 - Essential (primary) hypertension Subjective Subjective Patient reports: no new complaints, feels better, tolerating liquids well and afebrile Exam Const General: cooperative, comfortable, no acute distress, disheveled, frail appearing (older than stated age) and ill appearing chronically Orientation: alert, awake and oriented x3 HENRI Head: normal to inspection, normocephalic and atraumatic Face and sinus: normal facial exam Mouth: moist mucous membranes Eyes General: appearance normal, both eyes and all related structures Conjunctivae: conjunctivae normal Neck Neck: normal visual inspection, trachea midline and supple Resp Effort & Inspection: normal respiratory effort and able to speak in complete sentences Auscultation: diminished lung sounds bilaterally in the lower lung aleman Cardio Rate: regular rate Rhythm: regular rhythm GI Inspection: obesity Palpation: soft and nontender Back/Spine/Pelvis Back: No back tenderness Skin General skin exam: erythema Neuro General: patient alert, patient awake, patient oriented x3, moves all extremities and no focal motor deficits Cognition: normal cognition Motor: muscle tone normal throughout Sensory Exam: no sensory deficits noted Extrem General: full ROM and edema Laterality: left (lower) Psych Appearance: grossly normal Mental Status: mental status grossly normal Objective Last Vital Signs Temp 35.9 C L 03/16/21 23:23 Pulse 61 03/16/21 23:23 Resp 18 03/16/21 23:23 BP 144/76 H 03/16/21 23:23 Pulse Ox 96 03/16/21 23:23
[2021-03-17] MEDS: Collagenase 30 GM TUBE TP (11:53)
[2021-03-17] MEDS: Nystatin POWDER 15 GM JAR TP ×2 (11:53→20:01)
--- NOTE | 2021-03-17 14:24 | NUR.NOTE ---
Nursing Note: Patient questioned what she needed to do for her self to improve her health. I suggested, she quit smoking, control her diabetes better, with medical and nutrition mgt. Wear proper footwear on her feet to help improve the condition of her feet. Patient acknowledged she needed to do better.
--- NOTE | 2021-03-17 14:27 | NUR.NOTE ---
Nursing Note: I have reviewed the charting of Samanta Gao LPN, and find it acceptable
[2021-03-17 15:32] VITALS: BP 132/62; PULSE 62; RESP 17; TEMP 36.4; O2SAT 92
--- NOTE | 2021-03-17 15:43 | PTTR_ITS ---
Date of service: 03/17/21 Time of Service: 09:10 PT Notes Visit Reasons: Cellulitis Inpatient Physical Therapy Treatment Note [facility] Date: 03/17/2021 PRECAUTIONS: Fall, Activity as tolerated SUBJECTIVE: Carmel is pleasant, stating I'm going to start doing what I'm told because I don't want to lose my foot. She states that she is mostly wheelchair bound at home, and only transfers in/out of bed to her wheelchair. OBJECTIVE: PAIN: No c/o pain BED MOBILITY/TRANSFERS Supine-sit: I with HOB flat Sit-supine: I with HOB flat Sit-stand: S Stand-sit: S Bed-Chair: S Chair-bed: S GAIT Assistive Device: No AD Weight bearing: Full Assist: SBA in a.m.; S in p.m. Distance: Stand-pivot bed-commode + 5' in a.m.; stand-pivot x2 in p.m. THEREX: Patient was instructed in a LE strengthening program, completed in a seated position in a.m. and a supine position in p.m., as per flow sheet. TOILETING: Patient toileted with assist in a.m. and independently in p.m. WHEELCHAIR MOBILITY: Patient demonstrates independence with wheelchair self- propulsion and appropriate use of locks. ASSESSMENT: Patient was able to demonstrate independence with wheelchair mobility. She would benefit from continued strengthening for improved mobility. PLAN: Continue with gait training and general conditioning as tolerated. TREATMENT CODE/TIME: Session 1: 25 minutes; [id number], [id number] (09:10) Session 2: 34 minutes; [id number], [id number] (13:01)
--- NOTE | 2021-03-17 16:07 | CMPROGNOTE_ITS ---
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 She was lying in bed, sleeping when CM attempted to meet with her. CM will continue to follow. A: 66 year old female admitted to [facility] 03/15/21 for Cellulitis P: Carmel will be discharged home when medically cleared by provider. She will transport via [facility] w/c van and follow up with community providers.
--- NOTE | 2021-03-17 16:07 | PDOC.CMPRO ---
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 She was lying in bed, sleeping when CM attempted to meet with her. CM will continue to follow. A: 66 year old female admitted to [facility] 03/15/21 for Cellulitis P: Carmel will be discharged home when medically cleared by provider. She will transport via [facility] w/c van and follow up with community providers.
[2021-03-17] MEDS: Ketorolac 15 MG/ML VIAL IVP (18:05)
[2021-03-17] MEDS: Simvastatin 40 MG TAB PO (20:02)
[2021-03-17] MEDS: Metoprolol CR 25 MG TABCR PO (21:57)
[2021-03-17 23:55] VITALS: BP 122/70; PULSE 66; RESP 16; TEMP 36; O2SAT 97
[2021-03-18] MEDS: VANCOMYCIN/WATER (PEG) 1 GM/200 ML BAG IVPB (02:59)
[2021-03-18] MEDS: Ketorolac 15 MG/ML VIAL IVP (02:59)
[2021-03-18] MEDS: Normal Saline Flush 10 ML SYR IVP ×3 (03:00→20:54)
[2021-03-18] MEDS: PIPERACILLIN/TAZO 3.375 GM in Normal Saline 50 ML IVPB ×2 (04:43→12:20)
[2021-03-18] MEDS: Levothyroxine 50 MCG TAB PO (06:21)
[2021-03-18 07:34] VITALS: BP 142/77; PULSE 61; RESP 17; TEMP 36.1; O2SAT 94
[2021-03-18] MEDS: Budesonide/Formoterol 160/4.5 6 GM 60 PUFF INH IH ×2 (08:47→20:54)
[2021-03-18] MEDS: Torsemide 20 MG TAB 10 MG PO (08:48)
[2021-03-18] MEDS: Ascorbic Acid 500 MG TAB 250 MG PO ×2 (08:49→20:53)
[2021-03-18] MEDS: Gabapentin 100 MG CAP 200 MG PO ×3 (08:50→20:53)
[2021-03-18] MEDS: Ferrous Gluconate 324 MG TAB PO ×2 (08:51→20:53)
[2021-03-18] MEDS: Acetaminophen 500 MG TAB 1000 MG PO ×3 (08:51→20:53)
[2021-03-18] MEDS: Ezetimibe 10 MG TAB PO (08:51)
[2021-03-18] MEDS: DULoxetine 30 MG CAP 60 MG PO ×2 (08:51→20:54)
[2021-03-18] MEDS: Docusate Sodium 100 MG CAP PO ×2 (08:51→20:53)
[2021-03-18] MEDS: Nystatin POWDER 15 GM JAR TP ×2 (08:52→20:55)
[2021-03-18] MEDS: Losartan 50 MG TAB PO (08:52)
[2021-03-18] MEDS: Insulin Glargine 300 UNITS/3 ML PEN 40 UNITS SC ×2 (08:53→20:51)
[2021-03-18] MEDS: Insulin Aspart 300 UNITS/3 ML PEN SC ×4 (08:55→20:51)
[2021-03-18] MEDS: Pantoprazole 40 MG TABCR PO (08:58)
[2021-03-18] MEDS: Collagenase 30 GM TUBE TP (12:19)
--- NOTE | 2021-03-18 12:46 | PT.INTREAT ---
Date of service: 03/18/21 Time of Service: 10:15 PT Notes Visit Reasons: Cellulitis Inpatient Physical Therapy Treatment Note [facility] Date: 03/18/2021 PRECAUTIONS: WBAT on right LE, falls SUBJECTIVE: Stated she did not want to sit up in w/c, but was willing to transfer to/ from commode to urinate. OBJECTIVE: PAIN: Right toe hurts with transferring and exercises. BED MOBILITY/TRANSFERS Rolling L/R: I Supine-sit: I with HOB flat Sit-supine: I with HOB flat Sit-stand: SBA Stand-sit: SBA Bed-Commode: SBA stand-pivot Commode-bed: FWW with SBA, stand-pivot THEREX: Performed ankle pumps, quad/ glut sets, SAQs, supine hip flexion and supine hip abd/ adduction with contact assist and verbal cueing. See flow sheet for details. ASSESSMENT: Tolerated today's ther ex and stand-pivot transfers well. PLAN: Continue to focus on transfer training and strengthening for improved ADL function. TREATMENT CODE/TIME: 06413, [id number], 10:15 to 10:40 (25')
--- NOTE | 2021-03-18 14:57 | PGE_ITS ---
Date of Service Date of service: 03/18/21 Time of Service: : Assessment and Plan Assessment and plan (1) Edema of left lower extremity: Start date: 03/18/21 Start time: 14: Status: Acute Assessment and plan: Improved negative ultrasound elevate, teds (2) Cellulitis of foot: Start date: 03/18/21 Start time: 14: Status: Acute Assessment and plan: Improved. failed outpatient continue vanco and zosyn day 3, will narrow to ceftriaxone 2 gm. BCNGTD likely switch to PO medication on discharge no evidence of osteomyelitis on imaging elevate as much as possible. Dr Ward consulted, agrees to narrowing to . (3) Diabetes type 2, uncontrolled: Start date: 03/18/21 Start time: 14: Status: Chronic Assessment and plan: diabetic diet, sliding scale as needed A1C december 2020 was 10.1 diabetic education Qualifiers: Glycemic state: with hyperglycemia Qualified Code(s): E11.65 - Type 2 diabetes mellitus with hyperglycemia (4) Noncompliance with medication regimen: Start date: 03/18/21 Start time: 14: Status: Chronic Assessment and plan: nurse educator met with patient continues to be noncompliant with diabetes (5) Chronic kidney disease, stage III (moderate): Start date: 03/18/21 Start time: 14: Status: Chronic Assessment and plan: at baseline, monitor and avoid nephrotoxic medication Qualifiers: Chronic kidney disease stage 3 subtype: unspecified whether 3a or 3b Qualified Code(s): N18.30 - Chronic kidney disease, stage 3 unspecified (6) Hypothyroidism: Start date: 03/18/21 Start time: 14: Status: Chronic Assessment and plan: TSH 1.27 on Mar 15, 2021 continue synthyroid (7) Hypertension: Start date: 03/18/21 Start time: 14: Status: Chronic Assessment and plan: blood pressure stable monitor, continue home medication Qualifiers: Hypertension type: essential hypertension Qualified Code(s): I10 - Essential (primary) hypertension (8) DVT prophylaxis: Start date: 03/18/21 Start time: 14:27 Status: Acute Assessment and plan: Heparin subcu (9) Discharge planning issues: Start date: 03/18/21 Start time: 14:27 Status: Acute Assessment and plan: Home likely tomorrow discussed with Dr. López Subjective Subjective Patient reports: no new complaints Interval history since last seen: Patient would like to go home her sister is here from [place]. Her feet look well. Alice at the right heel otherwise no erythema or edema. Periphal pulses x 2. Drsg to right toes intact. She could likely go home tomorrow. Will narrow antibiotic regimen to oral. BC NGTD. She is usually wc bound. Denies CP, SOB, N/V/D. Exam Const General: cooperative, comfortable, no acute distress, disheveled, frail appearing (older than stated age) and ill appearing chronically Orientation: alert, awake and oriented x3 [facility] Head: normal to inspection, normocephalic and atraumatic Face and sinus: normal facial exam Mouth: moist mucous membranes Eyes General: appearance normal, both eyes and all related structures Conjunctivae: conjunctivae normal Neck Neck: normal visual inspection, trachea midline and supple Resp Effort & Inspection: normal respiratory effort and able to speak in complete s entences Auscultation: diminished lung sounds bilaterally in the lower lung aleman Cardio Rate: regular rate Rhythm: regular rhythm GI Inspection: obesity Palpation: soft and nontender Back/Spine/Pelvis Back: No back tenderness Skin General skin exam: no rashes or lesions noted Neuro General: patient alert, patient awake, patient oriented x3, moves all extremities and no focal motor deficits Cognition: normal cognition Motor: muscle tone normal throughout Sensory Exam: no sensory deficits noted Extrem General: full ROM Left lower extremity: foot (heel pink ) Details: tenderness Psych Appearance: grossly normal Mental Status: mental status grossly normal Objective Last Vital Signs Temp 36.1 C L 03/18/21 07:34 Pulse 61 03/18/21 07:34 Resp 17 03/18/21 07:34 BP 142/77 H 03/18/21 07:34 Pulse Ox 94 03/18/21 07:34 Laboratory Results - last 24 hr 03/18/21 03/18/21 11:00 11:02 Creatinine 1.0 Estimated GFR/1.73 m2 55.30 Vancomycin Trough Cancelled
[2021-03-18 15:14] LABS: Vancomycin, Trough 20.9 ug/mL (10.0-20.0)
[2021-03-18 15:24] VITALS: BP 133/75; PULSE 68; RESP 17; TEMP 36.5; O2SAT 93
[2021-03-18] MEDS: cefTRIAXone 2 GM/50 ML BAG IVPB (16:25)
[2021-03-18] MEDS: levoFLOXacin 500 MG, levoFLOXacin 250 MG 750 MG PO (18:02)
[2021-03-18] MEDS: Heparin 5,000 UNITS/ML VIAL 5000 UNITS SC ×2 (18:04→20:53)
[2021-03-18] MEDS: Metoprolol CR 25 MG TABCR PO (20:54)
[2021-03-18] MEDS: Simvastatin 40 MG TAB PO (20:54)
[2021-03-18 23:00] VITALS: BP 137/79; PULSE 60; RESP 20; TEMP 36; O2SAT 95
[2021-03-19] MEDS: Levothyroxine 50 MCG TAB PO (05:22)
[2021-03-19 06:58] LABS: Abs Immature Grans 0.03 10^3/uL (0.0-0.06); Absolute Basophil Count 0.05 10^3/uL (0.0-0.2); Absolute Eosinophil Count 0.49 10^3/uL (0.0-0.7); Absolute Lymphocyte Count 1.39 10^3/uL (1.2-3.4); Absolute Monocyte Count 0.47 10^3/uL (0.1-0.8); Absolute Neutrophil Count 4.87 10^3/uL (1.2-6.7); Basophils % 0.7; Eosinophils % 6.7; HCT 40.4 % (36.0-46.0); HGB 12.9 g/dL (11.2-15.7); Immature Grans % 0.4; MCH 27.9 pg (27.0-33.0); MCHC 31.9 % (32.0-36.0); MCV 87.4 fL (80-95); MPV 11.1 fL (8.0-11.0); Monocytes % 6.4; Neutrophils % 66.8; Nucleated RBC 0 %; Platelet Count 204 10^3/uL (130-400); RBC 4.62 10^6/uL (3.93-5.22); RDW 14.3 % (11.7-14.6); RDW-SD 44.4 fL
[2021-03-19 07:16] LABS: BUN 26 mg/dL (7-18); C-Reactive Protein 0.07 mg/dL (0.0-0.3); CREATININE 0.9 mg/dL (0.55-1.02); Calcium 10.1 mg/dL (8.5-10.1); Chloride 108 mmol/L (98-107); Glucose 127 mg/dL (74-106); Magnesium 1.8 mg/dL (1.8-2.4); Potassium 4.4 mmol/L (3.5-5.1); Sodium 142 mmol/L (136-145)
[2021-03-19 07:33] VITALS: BP 132/75; PULSE 60; RESP 20; TEMP 36.1; O2SAT 96
[2021-03-19] MEDS: levoFLOXacin 500 MG, levoFLOXacin 250 MG 750 MG PO (09:59)
[2021-03-19] MEDS: DULoxetine 30 MG CAP 60 MG PO (09:59)
[2021-03-19] MEDS: Ezetimibe 10 MG TAB PO (10:00)
[2021-03-19] MEDS: Ferrous Gluconate 324 MG TAB PO (10:00)
[2021-03-19] MEDS: Acetaminophen 500 MG TAB 1000 MG PO (10:00)
[2021-03-19] MEDS: Gabapentin 100 MG CAP 200 MG PO (10:00)
[2021-03-19] MEDS: Docusate Sodium 100 MG CAP PO (10:00)
[2021-03-19] MEDS: Pantoprazole 40 MG TABCR PO (10:00)
[2021-03-19] MEDS: Losartan 50 MG TAB PO (10:02)
[2021-03-19] MEDS: Torsemide 20 MG TAB 10 MG PO (10:03)
[2021-03-19] MEDS: Ascorbic Acid 500 MG TAB 250 MG PO (10:03)
[2021-03-19] MEDS: Insulin Glargine 300 UNITS/3 ML PEN 40 UNITS SC (10:03)
[2021-03-19] MEDS: Collagenase 30 GM TUBE TP (10:05)
--- NOTE | 2021-03-19 10:06 | W.PM.DS.N ---
Date of service: 03/19/21 Time of Service: 10:07 DS: Diagnosis Discharge Diagnosis (1) Cellulitis of foot: Start date: 03/19/21 Start time: 10:08 Status: Acute Asessment and Plan: Was on vanco and zosyn narrowed to Levaquin PO yesterday initially was going to be ceftriaxone but changed to levaquin. BC were negative, no evidence of osteo on imaging. Will give 10 day course levaqin Drsg changes daily to RL foot. follow up with Dr. Ward as planned. PCP in 1-2 weeks, patient to make appt. 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 A1C 10.1 in December 2020 She was on sliding scale while in hospital with Finger sticks in 200's requiring higher doses, lantus (4) Noncompliance with medication regimen: Start date: 03/19/21 Start time: 10:08 Status: Chronic Asessment and Plan: religious educator met with patient continues to be noncompliant with diabetes (5) Chronic kidney disease, stage III (moderate): Start date: 03/19/21 Start time: 10:08 Status: Chronic Asessment and Plan: at baseline (6) Hypothyroidism: Start date: 03/19/21 Start time: 10:08 Status: Chronic Asessment and Plan: TSH 1.27 on Mar 15, 2021 (7) Hypertension: Start date: 03/19/21 Start time: 10:08 Status: Chronic Asessment and Plan: Stable continued home medications while in the hospital discussed with Dr. López Discharge Plan Disposition Patient Disposition: HOME W/HOME HEALTH SERVICE Condition: Stable Discharge Details Reason For Visit: CELLULITIS Admit Date/Time: 03/15/21 16:17 Admit Provider: Jose A Espino Attending Provider: Jose A Espino Primary Care Provider: Mai Castelan Hospital Course Hospital Course: 66 y.o female PMH of DM2 noncompliant, HTN, Hypothyroidism, RLS, obesity, wheelchair bound, CHF, CKD, OA, GERD, CAD, admitted to [facility] after presenting with ongoing right foot pain and swelling. Recently completed an outpatient course of augmentin. Imaging revealed no evidence of osteomylitis. She was initiated on vanco and zosyn in the ED. On admission slightly elevated CRP at 0.[address] Ward was consulted and Right foot was debrided, toe nails cut and wound to toes dressed. He wants daily drsgs. She is feeling better. RL foot has improved in color, pink on heel, she feels much better. Overall improvement. LLE was swollen during admission which has improved, u/s done to r/o dvt, negative. She is being discharged home on oral levaquin. She had 3 days of vanco and zosyn then switched to PO levaquin yesterday will continue another 10 days of levaquin for a total of 14 day course of antibiotics. Follow up with Dr. Ward and follow up with PCP in 1-2 weeks. Pt agreeable to HH. 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 She denies CP, SOB, N/V/D. Home Meds and New Rx's Prescriptions: New Santyl 250 unit/gram ointment 1 applic topical DAILY Qty: 90 RF: 0 levofloxacin 750 mg Tablet 750 mg PO QAM Qty: 10 RF: 0 Continued acetaminophen 500 mg capsule 1,000 mg PO TID Qty: 180 RF: 11 mupirocin 2 % ointment 1 applic topical TID Qty: 15 RF: 0 Ozempic 0.25 mg or 0.5 mg(2 mg/1.5 mL) pen injector 0.5 mg subcut QWEEK Qty: 1.5 RF: 1 Tresiba FlexTouch U-200 200 unit/mL (3 mL) insulin pen 80 unit subcut DAILY Qty: 12 RF: 11 nicotine 10 mg cartridge 1 inh IH 4-6XD PRN (Reason: nicotine cravings) Qty: 168 RF: 1 Trapeze See Rx Instructions .ROUTE .COMPLEX Qty: 1 RF: 0 Medical THC 1 misc Inhalation PRN PRNRF: 0 budesonide-formoterol [Symbicort] 10.2 GM HFA aerosol inhaler 2 puff Inhalation BID Qty: 3 RF: 3 duloxetine [Cymbalta] 60 mg capsule,delayed release(DR/EC) 60 mg PO BID Qty: 180 RF: 3 ascorbic acid (vitamin C) [Vitamin C] 250 mg tablet 250 mg PO BID Qty: 60 RF: 0 ferrous gluconate 324 mg (37.5 mg iron) tablet 324 mg PO BID Qty: 60 RF: 0 insulin aspart U-100 [Novolog Flexpen U-100 Insulin] 100 unit/mL (3 mL) insulin pen See Rx Instructions SC AC Qty: 80 RF: 3 albuterol sulfate [ProAir HFA] 90 mcg/actuation HFA aerosol inhaler 1 - 2 puff Inhalation Q4H PRN Qty: 18 RF: 3 miscellaneous medical supply [facility] RF: 0 torsemide 10 mg tablet 10 mg PO .daily in AM Qty: 90 RF: 3 ezetimibe [Zetia] 10 mg tablet 10 mg PO DAILY Qty: 90 RF: 3 levothyroxine 50 mcg tablet 50 mcg PO DAILY Qty: 90 RF: 3 losartan [Cozaar] 50 mg tablet 50 mg PO DAILY Qty: 90 RF: 3 pantoprazole 40 mg tablet,delayed release (DR/EC) 40 mg PO DAILY Qty: 90 RF: 3 gabapentin 100 mg capsule 100 - 200 mg PO TID MDD 800mg Qty: 180 RF: 3 simvastatin 40 mg tablet 40 mg PO DAILY Qty: 90 RF: 3 metoprolol succinate 25 mg tablet extended release 24 hr 25 mg PO .daily at bedtime Qty: 90 RF: 3 naproxen 375 mg tablet 375 mg PO BID Qty: 20 RF: 0 docusate sodium [Colace] 100 mg capsule 100 mg PO BID Qty: 60 RF: 0 ipratropium-albuterol 0.5 mg-3 mg(2.5 mg base)/3 mL solution for nebulization 3 ml IH Q4H PRN (Reason: shortness of breath or wheezing) Qty: 180 RF: 0 Discontinued amoxicillin-pot clavulanate [Augmentin] 875-125 mg tablet 1 tab PO BID Qty: 14 RF: 0 No Action (DME) hospital bed See Rx Instructions .Route .MEDSUPPLY Qty: 1 RF: 0 (DME) wheelchair See Rx Instructions .Route .MEDSUPPLY Qty: 1 RF: 0 (DME) commode See Rx Instructions .Route .MEDSUPPLY Qty: 1 RF: 0 (DME) blood sugar diagnostic Strip See Dose Instructions .ROUTE .MEDSUPPLY Qty: 400 RF: 3 (DME) lancets [OneTouch UltraSoft Lancets] Misc See Dose Instructions .ROUTE .MEDSUPPLY Qty: 400 RF: 3 (DME) Novofine Autocover 30 gauge x 1/3 needle See Rx Instructions .ROUTE .MEDSUPPLY Qty: 360 RF: 1 Discharge Instructions Instructions: Cellulitis (DC), Diabetic Foot Ulcers (DC) Additional Instructions: Follow up with Dr. Ward as planned. Follow up with PCP in 1-2 weeks Take antibiotic daily Eat a yogurt or take a probiotic daily for up to one month HH services to start likely tomorrow. Daily dressing changes. Keep diabetes controlled to promote wound healing. Wound care instructions: Wash both feet with soap and water, gently pat dry. PolyMem to medial and lateral wall of the right fourth toe (cut to size), Santyl to wound over great toe cover with light gauze dressing, daily Activity:: Activity as Tolerated Equipment/Supplies:: No Equipment Needed Diet:: Carb Counting Discharge Orders Discharge Orders: Discharge Order (Routine); Ordered 03/19/21 Ordered By: Mai Goodson DS: Summary Time Spent with Patient providing and/or coordinating discharge services: Greater than 30 minutes Status at Discharge Functional status at discharge: wheelchair bound Overall status at discharge: patient is progressing back to baseline Mental Status: mental status grossly normal Speech and Movement: speech and movement normal Mood: congruent mood Affect: normal affect Exam Const General: cooperative, comfortable, no acute distress, disheveled, frail appearing (older than stated age) and ill appearing chronically Orientation: alert, awake and oriented x3 HENMT Head: normal to inspection, normocephalic and atraumatic Face and sinus: normal facial exam Mouth: moist mucous membranes Eyes General: appearance normal, both eyes and all related structures Conjunctivae: conjunctivae normal Neck Neck: normal visual inspection, trachea midline and supple Resp Effort & Inspection: normal respiratory effort and able to speak in complete sentences Auscultation: diminished lung sounds bilaterally in the lower lung aleman Cardio Rate: regular rate Rhythm: regular rhythm GI Inspection: obesity Palpation: soft and nontender Back/Spine/Pelvis Back: No back tenderness Skin General skin exam: no rashes or lesions noted Neuro General: patient alert, patient awake, patient oriented x3, moves all extremities and no focal motor deficits Cognition: normal cognition Motor: muscle tone normal throughout Sensory Exam: no sensory deficits noted Extrem General: full ROM Left lower extremity: foot (heel pink ) Psych Appearance: grossly normal Mental Status: mental status grossly normal Speech and Movement: speech and movement normal Mood: congruent mood Affect: normal affect DS: Data Vitals/I&O Vitals and I&O: Vital Signs Temperature 36.1 C L 03/19/21 07:33 Temperature Source Tympanic 03/19/21 07:33 Pulse 60 03/19/21 07:33 Pulse Rhythm Regular 03/19/21 02:16 Pulse 70 03/15/21 15:10 Respiratory Rate 20 03/19/21 07:33 Respiratory Effort Non-Labored 03/19/21 02:16 Respiratory Depth Normal 03/19/21 02:16 Respiratory Pattern Normal 03/19/21 02:16 Blood Pressure 132/75 03/19/21 07:33 Blood Pressure Mean 86 03/15/21 14:01 Blood Pressure Position Supine 03/15/21 13:35 Pulse Oximetry 96 03/19/21 07:33 Oxygen Delivery Method Room Air 03/19/21 07:33 Oxygen Flow Rate 0 03/19/21 07:33 Pain Level 0 03/19/21 07:33 Comment 03/16/21 07:17 Intake & Output 03/18/21 03/18/21 03/19/21 11:59 23:59 10:59 Intake Total 540 / 1380 840 / 1380 Output Total 800 / 2400 1600 / 2400 1350 / 1350 Balance -260 / -1020 -760 / -1020 -1350 / -1350 Intake: IV 300 / 900 600 / 900 Oral 240 / 480 240 / 480 Output: Urine 800 / 2400 1600 / 2400 1350 / 1350 Other: Urine Color Yellow Yellow Yellow Urine Appearance Clear Clear Clear Urine Odor Normal Normal Normal Comment Neurogenic Bladder Post void. Stool Size Moderate Large Stool Characteristics Formed Hard Hard Brown Voiding Methods Bedside Commode Bedside Commode Bedside Commode Data Completed and Pending Completed studies during hospitalization [Text1]: Exam(s) XR FOOT RT COMPLETE EXAM: XR FOOT RT COMPLETE CLINICAL HISTORY: pain, redness TECHNIQUE: COMPARISON: CR,XR XR TOE LT FIFTH from 03/30/2020 FINDINGS: Three views were obtained. No prior radiographs available for comparison. There are apparent old healed fractures of the 2nd through 4th metatarsals. There are fixation pins in the 3rd and 4th metatarsals. Question faint lucency surrounding fixation pin in the diaphysis and proximal metaphysis of the 4th metatarsal, loosening or infection not excluded on the basis of this examination. Distal aspect of this fixation pin of the 4th metatarsal also projects into the base of the proximal phalanx of the 4th toe, where a well-corticated lucency surrounds a, this presumably represents a chronic process. Severe degenerative change of the midfoot noted. IMPRESSION: Possible loosening or infection of 4th metatarsal fixation pin as described above. Please correlate clinically. Exam(s) PROCEDURE INFORMATION: Exam: XR Right Foot Exam date and time: 02/22/2021 5:11 PM Age: 66 years old Clinical indication: Pain; Foot; Right TECHNIQUE: Imaging protocol: XR Right foot. Views: 3 or more views. COMPARISON: No relevant prior studies available. FINDINGS: Bones/joints: Healed fractures are noted in the 2nd, 3rd, and 4th metatarsals. Surgical pins remain in place at the 3rd and 4th metatarsals. A long surgical pin is present in the 4th metatarsal. Lucency is observed around the proximal portion of the pin, extending through the shaft of the bone. Erosion is noted at the adjacent 4th proximal phalanx, well-corticated. No acute fractures are appreciated. Subluxation noted at the tarsometatarsal joint between the 2nd metatarsal and middle cuneiform. Severe narrowing is noted across the tarsometatarsal joints, with bulky osteophyte formation. Soft tissues: Soft tissue swelling is noted in the forefoot. Negative for soft tissue air. IMPRESSION: 1. Healed fractures, 2nd-4th metatarsals. 2. Prior Lisfranc injury. 3. Severe arthropathy across the tarsometatarsal joints. 4. Lucency around the long pin in the 4th metatarsal. Loosening or infection considered. 5. Chronic pressure erosion at the 4th proximal phalanx. Exam(s) XR FOOT RT COMPLETE EXAM: XR FOOT RT COMPLETE CLINICAL HISTORY: cellulitis, multiple sores. TECHNIQUE: 2D digital imaging was performed. COMPARISON: CR,XR XR FOOT RT COMPLETE from 02/22/2021 FINDINGS: Again noted are the healed fractures of the 3rd and 4th metatarsal necks with fixation wires across the fracture sites of these 2 metatarsals. The distal aspect of 1 of the 2 pins in the 4th metatarsal is again noted to project into the base of the proximal phalanx where there is smooth well-defined lucency around the pin head at this level.. There is no radiographic evidence of osteomyelitis at this level nor elsewhere in the foot. Inferior calcaneal spur is again noted. No acute fractures. Exam(s) US LOWER EXTREMITY VENOUS LT EXAM: US LOWER EXTREMITY VENOUS LT CLINICAL HISTORY: edema TECHNIQUE: Grayscale, color, and doppler imaging of the deep venous system of the left lower extremity was performed. COMPARISON: US US UPPER EXTREMITY VENOUS RT from 02/02/2020 FINDINGS: There is no evidence of intraluminal thrombus and there is normal compression and augmentation demonstrated within the common femoral vein, femoral vein, and popliteal vein. In the ipsilateral calf the interrogated veins also exhibit normal compression/ augmentation properties. The ipsilateral saphenofemoral junction is patent. IMPRESSION: 1. No evidence of DVT in the left lower extremity. 2. Labs on day of discharge: Labs from last 24 hours 03/19/21 03/19/21 03/18/21 06:32 06:32 14:43 WBC 7.30 RBC 4.62 Hgb 12.9 Hct 40.4 MCV 87.4 MCH 27.9 MCHC 31.9 L RDW 14.3 Plt Count 204 MPV 11.1 H Immature Gran % 0.4 Neutrophils % 66.8 Lymphocytes % 19.0 Monocytes % 6.4 Eosinophils % 6.7 Basophils % 0.7 Nucleated RBC % 0 Absolute Neutrophils 4.87 Absolute Lymphocytes 1.39 Absolute Monocytes 0.47 Absolute Eosinophils 0.49 Absolute Basophils 0.05 Sodium 142 Potassium 4.4 Chloride 108 H Carbon Dioxide 28.0 Anion Gap 6.0 BUN 26 H Creatinine 0.9 Estimated GFR/1.73 m2 >= 60.00 Glucose 127 H Calcium 10.1 Magnesium 1.8 C-Reactive Protein 0.07 Vancomycin Trough 20.9 H* 03/18/21 11:02 WBC RBC Hgb Hct MCV MCH MCHC RDW Plt Count MPV Immature Gran % Neutrophils % Lymphocytes % Monocytes % Eosinophils % Basophils % Nucleated RBC % Absolute Neutrophils Absolute Lymphocytes Absolute Monocytes Absolute Eosinophils Absolute Basophils Sodium Potassium Chloride Carbon Dioxide Anion Gap BUN Creatinine 1.0 Estimated GFR/1.73 m2 55.30 Glucose Calcium Magnesium C-Reactive Protein Vancomycin Trough Preliminary micro results at discharge 03/15/21 15:12 Blood Culture - Preliminary Blood NO GROWTH 72 HOURS 03/15/21 14:45 Blood Culture - Preliminary Blood NO GROWTH 72 HOURS [facility] Medical History Abdominal aortic aneurysm (11/27/12) Identified 10/31/12 CT abd-pelvis; 4cm; stable 4.1 cm 07/2014 CT, 4.3cm 11/2016, 5.5cm 03/04/17 ([facility]). 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 Ward Bacteremia due to Gram-positive bacteria Calculus of kidney and ureter Cardiomyopathy Dr Fair, EF 45% Jun 2014 ECHO (h/o much worse) 10/2016 ECHO: EF 40-45% 10/2016 MPI: no acute, but persistent old infarct Carpal tunnel syndrome (08/14/12) resolved s/p b/l release Chronic back pain History of chronic opioids, now none Chronic kidney disease, stage III (moderate) (08/14/12) Cortical atrophy R kidney on CT 07/2014; multiple cysts Cognitive attention deficit needs multiple repetitions of information COPD, mild (07/02/17) PFTs Coronary artery disease involving [place] coronary artery of [place] heart INFERIOR [place] 1996, 100% RCA occlusion; large inf defect on perfusion scan, dr Fair Depressive disorder (08/14/12) Diabetes type 2, uncontrolled though she has had education over the years, still seems not to understand carb counting ideally needs someone to educate son as he buys her food also needs hands-on teaching with nutrition labels, etc. Difficulty transferring from bed to wheelchair [facility] hospital bed has helped Difficulty transferring from toilet to wheelchair Steph investigating commode 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 Guerra DJD of right shoulder (01/01/13) 12/2012 x-ray severe DJD glenohumeral joint Dr. Guerra; not a surgical candidate for replacement DNI (do not intubate) DNR (do not resuscitate) Episode of seizures in July 2012 Esophageal reflux disease (07/24/11) UPPER GI SERIES 11/14/2012, MOD HIATAL HERNIA SEVERE GERD Goals of care, counseling/discussion DNR/DNI COLST done wants to stay home may need new agent if/when Steph moves out of state as planned Headache (08/31/13) Hypertension Hypothyroidism Incarcerated umbilical hernia (09/06/15) Marijuana dependence has smoked nearly every day since aged 17 helps with mood and pain, D reports Nausea and vomiting (08/01/14) a. previous history of possible marijuana induced hyperemesis Neurogenic bladder (07/24/11) Does not need to self-cath 11/2016: +Urinary retention [facility] inpt requiring cath; resolved by time of discharge Nicotine dependence not interested in quitting knows that smoking makes all her problems worse Olecranon bursitis, left elbow Resolved with appropriate DME Other and unspecified hyperlipidemia (08/14/12) Perirectal abscess With associated hospitalization 2019 POLST (Physician Orders for Life-Sustaining Treatment) signed 06/01/20 Recurrent falls RLS (restless legs syndrome) Spinal stenosis of lumbar region with neurogenic claudication (12/08/13) 04/13/2013 MRI Lumbar Spine: Facet arthropathy, DJD, L4-5, L5-S1 central spinal and neural foraminal stenosis Neurosurgery referral, but not a surgical candidate [facility] chronic pain service Chronic Pain 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 Ambulates with cane when out; walker at home Tinea corporis Type II diabetes mellitus with neurological manifestations (05/04/14) Goal A1c < 7.5% Schein, neuropathy; Charcot's foot 03/19/13 [employer] Wheelchair bound no falls since starting using WC permanent need severe diabetic nephropathy needs more adaptive equipment in the home Surgical History Appendectomy Childhood surgery, no date given by pt.HE Hemiarthroplasty (06/13/15) Dr Charlie Gallardo shoulder History of carpal tunnel release of both wrists (~05/2012) Hx of umbilical hernia repair (09/06/15) Incarcerated umbilical hernia repair (09/06/15) Tonsillectomy childhood surgery, no date given by pt.HE Family History Mother , at 73 yo from dementia Dementia Diabetes Stroke Blind Father , MVA (truck) accident at 45yo No problems noted. Sister Age: 60 Thyroid cancer Brother , from complications of diabetes age 60 Diabetes Brother Diabetes Heart disease Colon cancer Ulcerative colitis Sister Obesity Prediabetes Arthritis Son Substance abuse attends [facility]; h/o heroin and other opioid addiction Other FH: mental illness Social History Smoking/Tobacco Use Status: Current every day Tobacco Type: cigarettes Tobacco: How many years used: 54 Quit status: not considering quitting Counseling given: counseling >3 minutes Smoking risk assessment performed?: Yes Alcohol Intake: never Drug use: Daily Substance use type: marijuana Counseling given: Yes Details: pt states she smokes marijuana on a daily basis Adopted: No Caregiver/Support person: Yes Foster care: No Household members: children Housing: house Number of Children: 1 number of grandchildren: 0 Communication Needs: Corrective Lenses Education Level: high school Details: didn't finish sophomore year Do you need help understanding health information?: Always 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; 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 Pets and animals: Yes Current gender identity: female What is your relationship status?: How often do you talk on the phone with friends or family?: three or more times per week How often do you get together with friends or relatives?: twice per week Panel score (0-1 are the most socially isolated patients): 1 What type of physical activity do you participate in: none and wheelchair-bound Special eliana needs: No Seatbelt use: sometimes Working smoke detector in home: Yes Fire extinguisher in home: Yes Do you feel safe at home: No Do you feel safe in your relationship?: No Additional Social history: Lives with son, Ethan. Sister Steph is her DPOA. Sister planning on moving out of state late 2020, early 2021. Son works during the day. SHe loves wild animals, feeds birds and squirrels. Had a black bear coming onto her porch for a while. Raccoons too. Was at the [facility] in fall 2019. Everyone there was awesome. Hated not being able to smoke cigs or marijuana. Otherwise, good stay. Open to returning when necessary.
--- NOTE | 2021-03-19 11:03 | PDOC.HHF2F_ITS ---
Home Health Certification Home Health Certification: 1. Encounter Date and Reason I certify that Carmel Carvalho was seen by Mai Goodson on 03/19/21 and that I had a [id number] encounter with this patient that meets the physician face to face encounter requirements. 2. Clinical Findings Supporting Skilled Need and Homebound Status I certify that home health services are medically necessary, include either intermittent detention and/or physical/speech therapy, and that this gisselle ent is homebound in that absences from the home require considerable and taxing effort and are infrequent or of short duration, or are attributable to the need to receive medical care. [X] (a) Attached documentation from encounter provides clinical findings supporting skilled need and homebound status (including what assistance patient requires to leave the home). The encounter with the patient was in whole, or in part, for the following medical condition, which is the primary reason for home health care: CELLULITIS Half-Way: Patient would benefit from nursing services to help with daily dressing changes and adls, blood glucose levels, etc. Physical Therapy: Patient would benefit from PT and OT for strength, mobility, adl, etc. PROMOTIONAL MARKETING AGENT: patient would benefit from PROMOTIONAL MARKETING AGENT for better health outcomes Homebound: Unable to leave home without assistance. 3. Certification and Authentication I certify that I composed the above information based on my clinical judgement relating to this patient's medical condition and, if applicable, clinical findings communicated to me by the NPP or inpatient physician who performed the Home Health Referral. All further orders will be obtained through __Mai Lawrence____(Community Based Physician - PCP)
--- NOTE | 2021-03-19 11:18 | PT.INTREAT ---
Date of service: 03/19/21 Time of Service: 08:35 PT Notes Visit Reasons: Cellulitis Inpatient Physical Therapy Treatment Note [facility] Date: 03/19/2021 PRECAUTIONS: WBAT on right LE, falls SUBJECTIVE: Stated she is eager to go home. Knows she needs to be more active. Intends to use her w/c to get around the house. Has a ramp to get into her home. OBJECTIVE: PAIN: Complaining of right hip pain from sitting in chair and doing exercises. BED MOBILITY/TRANSFERS Sit-stand: SBA Stand-sit: SBA GAIT Assistive Device: FWW Weight bearing: full Assist: SBA Distance: Transfers to from chairs x 4 Self propelled in w/c x 30ft THEREX: Ankle pumps, LAQs, quad sets, seated hip abd/ adduction for 10 reps x 2 sets each. Also, perform 10 reps of left UE bicep curls and bilateral shoulder abd/adduction. ASSESSMENT: Tolerated today's session well with fair effort given. Stated she has a list of leg exercises at home that she has done in the past that are the same as what we have been doing in the hospital and she is going to continue with them when she is discharged. PLAN: Continue to work on transfer training and strengthening for improved functional mobility. TREATMENT CODE/TIME: 56157, 49910, 8:35 to 9:00 (25 minutes)
--- NOTE | 2021-03-19 14:09 | CMDISCH_ITS ---
- If Service Date Differs Date of service: 03/19/21 Time of Service: 14:09 LACE Index Scoring Tool - Questions: Length of Stay (in days): 4 - 6 Acuity (Admit via E.D.?): Yes Comorbidities: Diabetes w/o Complication, Chronic Pulmonary Disease, Liver or Renal Disease E.D. Visits: 3 - Answers: Total Score: 15 Risk of Readmission: High Risk Care Management Discharge Reason for Hospitalization: Cellulitis Discharge Plan: Padmini will return home with new oral abx and orders for [facility] SN/PT/OT/ASSISTANT PROJECT MANAGER when ready per MD. She will follow up with her PCP, Dr. Ward and her plan of care as prescribed. She will transport via private vehicle with her son. Patient/Family Education Needs: Review discharge instructions, discuss Ask Me Three. Services Needed at Discharge: Home Health Care Services ([facility] SN/PT/OT/ASSISTANT PROJECT MANAGER)
--- NOTE | 2021-03-21 18:00 | PT.INDS ---
Date of service: 03/24/21 PT Notes Visit Reasons: Cellulitis Physical Therapy Inpatient Discharge Summary Dates: 03/21/2021 Dates of service: 03/16/2021 through 03/19/2021 This is a clinical summary of care provided for the duration of dates listed above. No charge was made in the completion of this documentation. Referring Doctor: Treva Jacobs NP PT Orders: PT CONSULT: Eval/treat Precautions: Fall. Standard. WBAT on B LE with protective footwear. Patient Profile/Admitting Diagnosis: Lisa is a 66-year-old female with spinocerebellar ataxia, chronic back pain, type 2 diabetes mellitus, cardiomyopathy, and COPD who presented to the ED on 03/15/2021 with diagnoses of f cellulitis of right foot, type 2 diabetes mellitus, noncompliance with medication, chronic kidney disease stage III, hypothyroidism, and hypertension. PMHX: Medical History Abdominal aortic aneurysm (11/27/12) Identified 10/31/12 CT abd-pelvis; 4cm; stable 4.1 cm 07/2014 CT, 4.3cm 11/2016, 5.5cm 03/04/17 ([facility]). 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 Ward Bacteremia due to Gram-positive bacteria Calculus of kidney and ureter Cardiomyopathy Dr Fair, EF 45% Jun 2014 ECHO (h/o much worse) 10/2016 ECHO: EF 40-45% 10/2016 MPI: no acute, but persistent old infarct Carpal tunnel syndrome (08/14/12) resolved s/p b/l release Chronic back pain History of chronic opioids, now none Chronic kidney disease, stage III (moderate) (08/14/12) Cortical atrophy R kidney on CT 07/2014; multiple cysts Cognitive attention deficit needs multiple repetitions of information COPD, mild (07/02/17) PFTs Coronary artery disease involving jena coronary artery of jena heart [facility] 1996, 100% RCA occlusion; large inf defect on perfusion scan, dr Fair Depressive disorder (08/14/12) Diabetes type 2, uncontrolled though she has had education over the years, still seems not to understand carb counting i deally needs someone to educate son as he buys her food also needs hands-on teaching with nutrition labels, etc. 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 Guerra DJD of right shoulder (01/01/13) 12/2012 x-ray severe DJD glenohumeral joint Dr. Guerra; not a surgical candidate for replacement DNI (do not intubate) DNR (do not resuscitate) Episode of seizures in July 2012 Esophageal reflux disease (07/24/11) UPPER GI SERIES 11/14/2012, MOD HIATAL HERNIA SEVERE GERD Goals of care, counseling/discussion DNR/DNI COLST done wants to stay home may need new agent if/when Steph moves out of state as planned Headache (08/31/13) Hypertension Hypothyroidism Incarcerated umbilical hernia (09/06/15) Marijuana dependence has smoked nearly every day since aged 17 helps with mood and pain, D reports Nausea and vomiting (08/01/14) a. previous history of possible marijuana induced hyperemesis Neurogenic bladder (07/24/11) Does not need to self-cath 11/2016: +Urinary retention [facility] inpt requiring cath; resolved by time of discharge Nicotine dependence not interested in quitting knows that smoking makes all her problems worse Olecranon bursitis, left elbow Resolved with appropriate DME Other and unspecified hyperlipidemia (08/14/12) Perirectal abscess With associated hospitalization 2019 POLST (Physician Orders for Life-Sustaining Treatment) signed 06/01/20 Recurrent falls RLS (restless legs syndrome) Spinal stenosis of lumbar region with neurogenic claudication (12/08/13) 04/13/2013 MRI Lumbar Spine: Facet arthropathy, DJD, L4-5, L5-S1 central spinal and neural foraminal stenosis Neurosurgery referral, but not a surgical candidate [facility] chronic pain service Chronic Pain [facility] Pain Center consult 10/26/15 [facility] Sp[facility] consult 03/04/17 (Sanket Sawant MD) 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) Neuro work-up 2010/wchun +Hereditary, 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 Ambulates with cane when out; walker at home Tinea corporis Type II diabetes mellitus with neurological manifestations (05/04/14) Goal A1c < 7.5% Schein, neuropathy; Charcot's foot 03/19/13 [employer] Wheelchair bound no falls since starting using WC permanent need severe diabetic nephropathy needs more adaptive equipment in the home Surgical History Appendectomy Childhood surgery, no date given by pt.HE Hemiarthroplasty (06/13/15) Dr Charlie Gallardo shoulder History of carpal tunnel release of both wrists (~05/2012) Hx of umbilical hernia repair (09/06/15) Incarcerated umbilical hernia repair (09/06/15) Tonsillectomy childhood surgery, no date given by pt.HE Social History/Home Situation: Son lives with patient in a private home. Staes that son does everything for her but points out that the son works during the day. She states she has a walk-in shower and that she has a lady who comes in 2 hours everyday to help out with chores and meals. No longer does long distance ambulation. Equipment Owned/DME: Front-wheeled walker, single-point cane, wheelchair Subjective: NT. See most recent OPTOMETRY TEACHER notes. Objective: General Observation:NT. See most recent OPTOMETRY TEACHER notes. Mental Status: NT. See most recent OPTOMETRY TEACHER notes. Pain: NT. See most recent OPTOMETRY TEACHER notes. ROM: Right Upper Extremity: Shoulder Flexion allows up to 80 degrees. Shoulder abduction allows up to 90 degree. Elbow flexion WFL. Wrist flexion WFL. Opening and closing of hand WFL. Left Upper Extremity: Shoulder Flexion allows up to 100 degrees. Shoulder abduction allows up to 100 degrees. Elbow flexion WFL. Wrist flexion WFL. Opening and closing of hand WFL. Right Lower Extremity: Hip flexion 20 degrees past 90 while seated on chair. Hip abduction WFL. Knee flexion WFL. Knee extension -20 degrees. Ankle dorsiflexion WFL. Ankle plantarflexion WFL. Left Lower Extremity: Hip flexion 20 degrees past 90 while seated on chair. Hip abduction WFL. Knee flexion WFL. Knee extension -20 degrees. Ankle dorsiflexion WFL. Ankle plantarflexion WFL. Strength: Right Upper Extremity: Shoulder flexors 3-/5. Shoulder abductors 3-/5. Elbow flexors 4-/5. Elbow extensors 4-/5. Insulation Machine Operator strong. Left Upper Extremity: Shoulder flexors 3-/5. Shoulder abductors 3-/5. Elbow flexors 4-/5. Elbow extensors 4-/5. Insulation Machine Operator strong. Right Lower Extremity: Hip flexors 3-/5. Hip abductors 3+/5. Knee flexors 3+/5. Knee extensors 3-/5. Ankle dorsiflexors 3-/5. Ankle plantarflexors 3-/5. Left Lower Extremity: Hip flexors 3-/5. Hip abductors 3+/5. Knee flexors 3+/5. Knee extensors 3-/5. Ankle dorsiflexors 3-/5. Ankle plantarflexors 3-/5. Bed Mobility/Transfers: Sit to stand from bedside commode stand by assist Stand to sit onto bed stand by assist Chair to bed stand by assist Gait: Only able to tolerate up to 5 steps using the FWW. Tolerates stands pivot transfer without AD. Balance: Static Sitting: Normal Dynamic Sitting: Normal Static Standing: Fair Dynamic Standing: Fair Assessment: Lisa demonstrates functional mobility decline requiring the the use of a FWW for transfer task performance and short 5 steps using front-wheeled walker. May require encouragement to participate in therapy. Patient presents with clinical signs and symptoms consistent with current/admitting diagnoses that have resulted to mobility limitations, gait instability, generalized weakness, and impairment of motor control as demonstrated by the following impairment level findings: 1. Decreased strength to B UE/LE major muscle groups (chronic) 2. Impaired sitting/standing balance 3. Impaired activity tolerance 4. Need for oxygen supplementation at all times 5. Wound to R foot 6. Non-compliant with footwear recommendations Impairments are contributing to the following functional limitations: 1. Dependent bed mobility skills 2. Increased dependence with transfers 3. Inability to safely ambulate without assistive device and physical assistance 4. Increase completion time for mobility ADL performance 5. Increased fall risk 6. Inability to negotiate steps alone safely 7. Increased risk for skin infection and further injury Goals: Goals X1 week 1. Supine-Sit independent NOT MET 2. Sit-Supine independent NOT MET 3. Sit-Stand independent NOT MET 4. Stand-Sit independent NOT MET 5. Bed-Chair independent NOT MET 6. Chair-Bed independent NOT MET 7. Independent gait on level surface with use of least restrictive device for at least 50 feet without report of pain nor dyspnea NOT MET 8. Independent stair negotiation while holding onto bilateral rails for at least 5steps without report of pain nor dyspnea NOT MET 9. Independent with home exercise program NOT MET 10. Good static and dynamic standing balance/tolerance NOT MET DISCHARGE RECOMMENDATIONS: [] Home with no services [] [] Home with services [specify] [] Home with outpatient PT [] [X] SNF for continued rehabilitation patient will benefit from home health PT services in order to progress mobility level using least restrictive assistive ambulatory device, assess home safety, identify additional equipment needs, and establish a functional maintenance program that will increase ability of patient to remain at home. [] Wash Box Operator Care [] [] SNF versus LTC based on ability to participate and progress [] TREATMENT CODE/TIME: 96290 x 23 minutes beginning at 16:47 PM. Thank you very much for this referral. Alison Onofre PT, DPT, CLT [facility] [place], [place]
== END 2021-03-19 13:00 | disposition home health service (06) | DRG 603 ==
LOC: ER 17:26 → MS 17:30
PROVIDERS: Internal Medicine; Physician Assistant; Admitting Provider Internal Medicine; Emergency Provider Nurse Practitioner Acute Care; PCP Nurse Practitioner Adult Health; Visit Provider Internal Medicine
DX: L03.115 Cellulitis of right lower limb (principal); I42.9 Cardiomyopathy, unspecified; G11.9 Hereditary ataxia, unspecified; E11.65 Type 2 diabetes mellitus with hyperglycemia; I12.9 Hypertensive chronic kidney disease with stage 1 through stage 4 chronic kidney disease, or unspecified chronic kidney disease; N18.30 Chronic kidney disease, stage 3 unspecified; Z91.14 Patient's other noncompliance with medication regimen; I71.4 Abdominal aortic aneurysm, without rupture; I25.2 Old myocardial infarction; G89.29 Other chronic pain; M54.9 Dorsalgia, unspecified; J44.9 Chronic obstructive pulmonary disease, unspecified; I25.10 Atherosclerotic heart disease of native coronary artery without angina pectoris; F32.A Depression, unspecified; Z66 Do not resuscitate; F12.20 Cannabis dependence, uncomplicated; F17.210 Nicotine dependence, cigarettes, uncomplicated; G25.81 Restless legs syndrome; E11.40 Type 2 diabetes mellitus with diabetic neuropathy, unspecified; E11.22 Type 2 diabetes mellitus with diabetic chronic kidney disease
CPT/HCPCS: 36415; 80048; 80053; 85652; 87040; 87635; 97110; 97162; 97530; 99285; 73630; 80202; 82565; 83605; 83735; 84443; 85025; 86140; 93971; 99223; 99232; 99233; 99239; J1644; J1885; J2543

== ENCOUNTER 2021-09-09 13:35 | Emergency (ER) | payer OTHER, MEDICAID, SELFPAY ==
--- NOTE | 2021-09-09 13:30 | RT.EKG_ITS ---
APPROVED REPORT Exam: Resting ECG Reason for Exam: chest pain Patient Location: E HR:69 bpm ECG Measurements Heart Rate 69 AXIS ME 257 P 0 QRSd 131 QRS 54 QT 419 T -3 QTc 449 Conclusion Sinus rhythm...normal P axis, V-rate 60- 99 Prolonged ME interval...ME >220, V-rate 50- 90 Nonspecific intraventricular conduction delay...QRSd >115mS, not LBBB/RBBB Anterolateral infarct, age indeterminate...Q >35mS, flat/neg T, V3-V6,I,aVL. Sinus. No STEMI. No significant change from previous EKG. I have reviewed and interpreted ECG and agree with software generated interpretation.
--- NOTE | 2021-09-09 13:30 | DI.RAD_ITS ---
Exam(s) XR CHEST 1V IN DI DEPT EXAM: XR CHEST 1V IN DI DEPT CLINICAL HISTORY: chest pain, sob, r/o acute disease TECHNIQUE: 2D digital imaging was performed. COMPARISON: CR XR PORTABLE CHEST AP from 02/04/2020 FINDINGS: The exam is limited by patient positioning and poor pulmonary inflation. The heart is enlarged, unch anged. Lungs are grossly clear. Right shoulder prosthesis is incidentally noted. IMPRESSION: Limited exam. No acute pulmonary findings. DATA REPOSITORY: RADIATION DOSE DELIVERED:
--- NOTE | 2021-09-09 13:46 | W.ED.GENAD ---
Discharge Plan Disposition Patient Disposition: HOME Condition: Stable Discharge Details Clinical Impression: Otitis media Primary Care Provider: Mai Castelan ED Provider: Rosalie Barclay Home Meds and New Rx's Prescriptions: New amoxicillin 500 mg tablet 500 mg PO TID 10 Days Qty: 30 0RF Continued Ozempic 0.25 mg or 0.5 mg(2 mg/1.5 mL) pen injector 0.5 mg subcut QWEEK Qty: 1.5 1RF Hold Instructions: Home Medication placed on hold at Doctor's office Rx Instructions: Diabetes. Dose increase 01/04/2021. torsemide 5 mg tablet 5 mg PO .Every other AM Qty: 45 3RF finasteride [Proscar] 5 mg tablet 5 mg PO DAILY Qty: 90 3RF (DME) Air mattress See Rx Instructions .Route .MEDSUPPLY Qty: 1 0RF Rx Instructions: As directed budesonide-formoterol [Symbicort] 10.2 GM HFA aerosol inhaler 2 puff Inhalation BID Qty: 3 3RF Hold Instructions: Home Medication placed on hold at Doctor's office Label Comments: 04/01/17 Patient unsure of last dose. Maybe last Thur, but patient is noncompliant with medications CDG torsemide 10 mg tablet 10 mg PO .daily in AM Qty: 90 3RF Hold Instructions: Home Medication placed on hold at Doctor's office Rx Instructions: Diuretic for heart (CHF) & swelling ezetimibe [Zetia] 10 mg tablet 10 mg PO DAILY Qty: 90 3RF Hold Instructions: Home Medication placed on hold at Doctor's office Rx Instructions: to lower cholesterol (DME) lancets [OneTouch UltraSoft Lancets] Misc See Dose Instructions .ROUTE .MEDSUPPLY Qty: 400 3RF Dose Instruction: As directed Rx Instructions: E11.4 tests QID to keep A1C below 8 (DME) blood sugar diagnostic Strip See Dose Instructions .ROUTE .MEDSUPPLY Qty: 400 3RF Dose Instruction: As directed Rx Instructions: One Touch Ultra,E 11.40 tests QID to keep A1C below 8 (DME) blood-glucose meter [OneTouch Ultra2 Meter] Kit See Rx Instructions .ROUTE .MEDSUPPLY Qty: 1 0RF Rx Instructions: to check BS qid for DM E11.9 management to keep A1c under 8 acetaminophen [Tylenol Arthritis Pain] 650 mg tablet extended release 1,300 mg PO Q12H Qty: 360 3RF Rx Instructions: Chronic pain--do not exceed 4G in 24 hours tylenol albuterol sulfate [ProAir HFA] 90 mcg/actuation HFA aerosol inhaler 1 - 2 puff Inhalation Q4H PRN Qty: 18 3RF celecoxib [Celebrex] 100 mg capsule 100 mg PO DAILY Qty: 90 0RF Rx Instructions: Chronic pain, spinal stenosis gabapentin 100 mg capsule 100 mg PO BID MDD 800mg Qty: 180 3RF Rx Instructions: Chronic pain Tresiba FlexTouch U-200 200 unit/mL (3 mL) insulin pen 40 unit subcut DAILY MDD 80 units Qty: 12 11RF Rx Instructions: Uncontrolled T2DM (stop Lantus) levothyroxine 50 mcg tablet 50 mcg PO DAILY Qty: 90 3RF metoprolol succinate 25 mg tablet extended release 24 hr 25 mg PO DAILY Qty: 90 3RF pantoprazole 40 mg tablet,delayed release (DR/EC) 40 mg PO DAILY Qty: 90 3RF rosuvastatin 10 mg tablet 10 mg PO DAILY Qty: 90 3RF Rx Instructions: Stop Simvastatin & take this instead for diabetes & cholesterol, 06/21/21 (DME) Novofine Autocover 30 gauge x 1/3 needle See Rx Instructions .ROUTE .MEDSUPPLY Qty: 100 3RF Rx Instructions: For DM E11.40 to maintain A1C <8, monitoring daily Discharge Instructions Instructions: Ear Infection (ED) Additional Instructions: Your lab work today is reassuring and shows no evidence of acute concerning or significant findings. The CT scan of your head and neck area noted a nonspecific mass within your left parotid gland which is within the left side of your face and it is recommended that you get a repeat CT scan in the next 6 months. You are being treated for a possible right ear infection. You are being sent home with a prescription for amoxicillin to take as directed until finished. You are also being sent home with 2 tabs of tramadol to take as needed and for pain not relieved with Tylenol or ibuprofen. Follow-up with your primary care doctor in 1 week. Return to the emergency department with any worsening or new concerning symptoms. Discharge Data Discharge Date/Time-TO BE ENTERED AT DEPARTURE: 09/09/21 18:09 Discharge Physician: Rosalie Barclay Medical Decision Making 66-year-old female with a history of obesity, hypertension, hyperlipidemia, diabetes, coronary artery disease, GERD, hypothyroidism, chronic back pain presents for right ear pain with radiation to her right neck, sore throat and intermittent chest pain and shortness of breath for the past few days. Vitals within normal limits. Patient appears comfortable and nontoxic. Right TM appears dull with minimal erythema. Posterior oropharynx erythematous and dry appearing. Lungs clear bilaterally. Abdomen soft nontender. No meningeal signs. Differential diagnosis includes COVID, flu, pneumonia, dehydration, electrolyte abnormality, otitis media. Considering patient's age and history, will obtain screening labs, CT temporal bones and neck, chest x-ray and give fluids and IV Tylenol and reassess. Labs reviewed. White blood cell count normal. Hemoglobin normal. Electrolytes normal. Glucose 247 but with normal bicarb and anion gap. Magnesium 1.7. Troponin negative. Urinalysis notes 10-20 WBCs but with trace leukocyte esterase, few bacteria, negative nitrite and many epithelial cells but appears contaminated. Fluvid negative. Chest x-ray negative. CT neck notes a 1.9 cm nonspecific enhancing ovoid mass in the left superficial parotid gland which could be a Warthin's tumor or pleomorphic adenoma or enlarged lymph node. Follow-up might be considered in 6 months. There were no abnormal findings of lymphadenopathy or mass within the ear or neck. Patient informed of these results. Patient is requesting to go home. She still complained of right ear pain. A dose of tramadol was given and will treat with antibiotics. Advised to follow up with the primary care doctor for re-evaluation. Usual and customary return precautions given prior to discharge. Medical Records Medical records reviewed: Yes I reviewed the patient's medical records. Imaging Data Radiologic Study: Radiologist's impression: XR Chest Exam date and time: 09/09/2021 3:48 PM Age: 66 years old Clinical indication: Shortness of breath TECHNIQUE: Imaging protocol: XR of the chest. Views: 1 view. COMPARISON: CR XR PORTABLE CHEST AP 02/04/2020 9:04 AM FINDINGS: Lungs: Unremarkable. No consolidation. Pleural spaces: Unremarkable. No pleural effusion. No pneumothorax. Heart/Mediastinum: Cardiac silhouette at the upper limits of normal in size. There is hiatal hernia. Bones/joints: There is right hip arthroplasty. IMPRESSION: 1. No acute pulmonary process. CT Neck With Contrast Exam date and time: 09/09/2021 3:41 PM Age: 66 years old Clinical indication: Neck pain and other: Ear and neck pain TECHNIQUE: Imaging protocol: Computed tomography images of the neck with contrast. Radiation optimization: All CT scans at this facility use at least one of these dose optimization techniques: automated exposure control; mA and/or kV adjustment per patient size (includes targeted exams where dose is matched to clinical indication); or iterative reconstruction. Contrast material: OMNIPAQUE 350; Contrast volume: 100 ml; Contrast route: INTRAVENOUS (IV);? COMPARISON: CT NECK W 09/04/2019 11:27 AM FINDINGS: Mastoid air cells: There is minimal opacification of the anteromedial right mastoid air cells. Paranasal sinuses: There is mucous retention cyst or polyp in the left maxillary sinus. Nasopharynx: Unremarkable. Oropharynx: Unremarkable. No significant tonsillar enlargement. Hypopharynx: Unremarkable. Larynx: Unremarkable. Normal epiglottis. Retropharyngeal space: Unremarkable. Submandibular/Parotid glands: There is a 1.9 x 1.2 cm axial by exit 1.6 cm enhancing ovoid mass in the left medial superficial upper to mid parotid gland. Additionally, there is a 1.0 cm nodule in the right superficial parotid gland, probably small lymphoid tissue. Thyroid: Thyroid gland is heterogeneous. There is 1.2 cm nodule in the right lobe of the thyroid gland. Lymph nodes: No lymphadenopathy. Trachea: Visualized trachea is unremarkable. Lungs: Unremarkable as visualized. Bones/joints: There is no acute fracture. There are multilevel disc degenerative changes in the cervical spine. There are prominent posterior osteophyte disc complex at C3-C4, C5-C6 without critical spinal canal stenosis. Vasculature: Atherosclerotic calcifications of bilateral carotid bifurcation with mild stenosis noted in the proximal internal carotid arteries. Soft tissues: Unremarkable. No significant soft tissue swelling. IMPRESSION: 1. No abnormal lymphadenopathy or neck mass. No definite abnormality identified in the bilateral external and middle ear. 2. 1.9 cm nonspecific enhancing ovoid mass in the left superficial parotid gland which could be due to Warthin tumor or pleomorphic adenoma or enlarged lymph node. Follow-up might be considered in 6 months. Lab Data Lab results reviewed: Yes I reviewed the patient's lab results. Labs: Laboratory Tests Range/Units 09/09/21 09/09/21 09/09/21 14:20 14:20 14:30 WBC (4.4-10.8) 10^3/uL 7.73 RBC (3.93-5.22) 10^6/uL 5.40 H Hgb (11.2-15.7) g/dL 13.4 Hct (36.0-46.0) % 43.5 MCV (80-95) fL 81 MCH (27.0-33.0) pg 24.8 L MCHC (32.0-36.0) % 30.8 L RDW (11.7-14.6) % 15.7 H Plt Count (130-400) 10^3/uL 200 MPV (8.0-11.0) fL 10.9 Immature Gran % 0.3 Neutrophils % 66.3 Lymphocytes % 23.5 Monocytes % 6.5 Eosinophils % 2.8 Basophils % 0.6 Nucleated RBC % (0.0-0.3) % 0.0 Absolute Neutrophils (1.2-6.7) 10^3/uL 5.12 Absolute Lymphocytes (1.2-3.4) 10^3/uL 1.82 Absolute Monocytes (0.1-0.8) 10^3/uL 0.50 Absolute Eosinophils (0.0-0.7) 10^3/uL 0.22 Absolute Basophils (0.0-0.2) 10^3/uL 0.05 Sodium (136-145) mmol/L 137 Potassium (3.5-5.1) mmol/L 4.4 Chloride (98-107) mmol/L 103 Carbon Dioxide (21.0-32.0) mmol/L 29.0 Anion Gap (3-11) mmol/L 5.0 BUN (7-18) mg/dL 18 Creatinine (0.55-1.02) mg/dL 1.0 Estimated GFR/1.73 m2 (mL/min/1.73m2) 55.30 Glucose (74-106) mg/dL 247 H Calcium (8.5-10.1) mg/dL 10.1 Magnesium (1.8-2.4) mg/dL 1.7 L Total Bilirubin (0.2-1.0) mg/dL 0.4 AST (15-37) U/L 17 ALT (14-59) U/L 21 Alkaline Phosphatase (46-116) U/L 114 Troponin I (<or=60) ng/L < 50 Total Protein (6.4-8.2) g/dL 7.1 Albumin (3.4-5.0) g/dL 3.5 Urine Color (Yellow) Urine Clarity (Clear) Urine pH (5-8) Ur Specific [place] (1.005-1.025) Urine Protein (Negative) mg/dL Urine Ketones (Negative) mg/dL Urine Blood (Negative) Urine Nitrite (Negative) Urine Bilirubin (Negative) Urine Urobilinogen (Up TO 0.2) EU/dL Ur Leukocyte Esterase (Negative) Urine RBC (0-2) HPF Urine WBC (0-5) HPF Ur Epithelial Cells (Negative) HPF Urine Crystals (Negative) HPF Urine Bacteria (Negative) HPF Urine Casts (Negative) LPF Urine Mucus (Negative) Ur Culture Indicated? Urine Glucose (Negative) mg/dL COVID-19 Source Not Applicable SARS-CoV-2 (PCR) (Negative) Negative Influenza Type A (PCR) (Negative) Negative Influenza Type B (PCR) (Negative) Negative RSV (PCR) (Negative) Negative Range/Units 09/09/21 15:00 WBC (4.4-10.8) 10^3/uL RBC (3.93-5.22) 10^6/uL Hgb (11.2-15.7) g/dL Hct (36.0-46.0) % MCV (80-95) fL MCH (27.0-33.0) pg MCHC (32.0-36.0) % RDW (11.7-14.6) % Plt Count (130-400) 10^3/uL MPV (8.0-11.0) fL Immature Gran % Neutrophils % Lymphocytes % Monocytes % Eosinophils % Basophils % Nucleated RBC % (0.0-0.3) % Absolute Neutrophils (1.2-6.7) 10^3/uL Absolute Lymphocytes (1.2-3.4) 10^3/uL Absolute Monocytes (0.1-0.8) 10^3/uL Absolute Eosinophils (0.0-0.7) 10^3/uL Absolute Basophils (0.0-0.2) 10^3/uL Sodium (136-145) mmol/L Potassium (3.5-5.1) mmol/L Chloride (98-107) mmol/L Carbon Dioxide (21.0-32.0) mmol/L Anion Gap (3-11) mmol/L BUN (7-18) mg/dL Creatinine (0.55-1.02) mg/dL Estimated GFR/1.73 m2 (mL/min/1.73m2) Glucose (74-106) mg/dL Calcium (8.5-10.1) mg/dL Magnesium (1.8-2.4) mg/dL Total Bilirubin (0.2-1.0) mg/dL AST (15-37) U/L ALT (14-59) U/L Alkaline Phosphatase (46-116) U/L Troponin I (<or=60) ng/L Total Protein (6.4-8.2) g/dL Albumin (3.4-5.0) g/dL Urine Color (Yellow) Yellow Urine Clarity (Clear) Clear Urine pH (5-8) 6.0 Ur Specific [place] (1.005-1.025) 1.015 Urine Protein (Negative) mg/dL 30 H Urine Ketones (Negative) mg/dL Negative Urine Blood (Negative) Negative Urine Nitrite (Negative) Negative Urine Bilirubin (Negative) Negative Urine Urobilinogen (Up TO 0.2) EU/dL 0.2 Ur Leukocyte Esterase (Negative) Trace H Urine RBC (0-2) HPF 0-2 Urine WBC (0-5) HPF 10-20 H Ur Epithelial Cells (Negative) HPF Many Urine Crystals (Negative) HPF Negative Urine Bacteria (Negative) HPF Few Urine Casts (Negative) LPF Negative Urine Mucus (Negative) Trace Ur Culture Indicated? No/Sq. Contamination Urine Glucose (Negative) mg/dL 250 H COVID-19 Source SARS-CoV-2 (PCR) (Negative) Influenza Type A (PCR) (Negative) Influenza Type B (PCR) (Negative) RSV (PCR) (Negative) ECG Data Attestation: I personally reviewed and interpreted this ECG (s) as follows: Interpretation: Rate of 69, sinus, no STEMI, no change from previous EKG. HPI General Mode of arrival: EMS. Date/Time Provider Initiated Documentation: 09/09/21 14:20. Limitations to Documentation: physical limitation. Information obtained by: patient. HPI Narrative: Patient is a 66-year-old female who is DNR/DNI with a history of obesity, anxiety, depression, coronary artery disease, diabetes, hypertension, hyperlipidemia, hypothyroidism who presents for multiple complaints including right ear pain radiating to the right side of her neck, shortness of breath, and intermittent chest pain. She does admit to some mild sore throat. She denies any chest pain or shortness of breath at present. She states she has been wheelchair-bound for the past 2 years. She has not taken any medication for her pain. She states she is vaccinated for COVID including a booster but has not received her second booster yet. She states she lives with her son but has not left the house and denies any known exposure to coronavirus. She states she has been eating and drinking normally and denies any fever, vomiting, diarrhea or urinary symptoms. Related Data Home Medications Medication Instructions Recorded Confirmed budesonide-formoterol HFA 80 2 puff INHALATION BID #3 inhaler 01/28/17 09/09/21 mcg-4.5 mcg/actuation aerosol inhaler (Symbicort) torsemide 10 mg tablet 10 mg PO .daily in AM #90 tab-cap 04/12/20 09/09/21 ezetimibe 10 mg tablet (Zetia) 10 mg PO DAILY #90 tab-cap 07/14/20 09/09/21 lancets (OneTouch UltraSoft #400 each 11/03/20 09/09/21 Lancets) semaglutide (Ozempic) 0.5 mg (0.4 mL) SUBCUT QWEEK #1.5 01/04/21 09/09/21 ml blood sugar diagnostic #400 each 04/19/21 09/09/21 blood-glucose meter (OneTouch #1 ea 04/19/21 09/09/21 Ultra2 Meter) Air mattress #1 ea 06/15/21 09/09/21 acetaminophen 650 mg 1,300 mg PO Q12H #360 tab 06/21/21 09/09/21 tablet,extended release (Tylenol Arthritis Pain) albuterol sulfate 90 mcg/actuation 1 - 2 puff INHALATION Q4H PRN #18 06/21/21 09/09/21 aerosol inhaler (ProAir HFA) gm celecoxib 100 mg capsule (Celebrex) 100 mg PO DAILY #90 cap 06/21/21 09/09/21 gabapentin 100 mg capsule 100 mg PO BID #180 cap MDD 800mg 06/21/21 09/09/21 insulin degludec 200 unit/mL (3 40 unit (0.2 mL) SUBCUT DAILY #12 06/21/21 09/09/21 mL) subcutaneous pen (Tresiba ml MDD 80 units FlexTouch U-200 insulin) levothyroxine 50 mcg tablet 50 mcg PO DAILY #90 tab-cap 06/21/21 09/09/21 metoprolol succinate 25 mg 25 mg PO DAILY #90 tab 06/21/21 09/09/21 tablet,extended release 24 hr pantoprazole 40 mg tablet,delayed 40 mg PO DAILY #90 tab-cap 06/21/21 09/09/21 release rosuvastatin 10 mg tablet 10 mg PO DAILY #90 tab 06/21/21 09/09/21 pen needle, diabetic, safety 30 #100 ea 07/21/21 09/09/21 [facility] x 1/3 [facility] finasteride 5 mg tablet (Proscar) 5 mg PO DAILY #90 tab 09/06/21 09/09/21 torsemide 5 mg tablet 5 mg PO .Every other AM #45 tab 09/06/21 09/09/21 amoxicillin 500 mg tablet 500 mg PO TID 10 Days #30 tab 09/09/21 Previous Rx's Medication Instructions Recorded budesonide-formoterol HFA 80 2 puff INHALATION BID #3 inhaler 01/28/17 mcg-4.5 mcg/actuation aerosol inhaler (Symbicort) torsemide 10 mg tablet 10 mg PO .daily in AM #90 tab-cap 04/12/20 ezetimibe 10 mg tablet (Zetia) 10 mg PO DAILY #90 tab-cap 07/14/20 lancets (OneTouch UltraSoft #400 each 11/03/20 Lancets) semaglutide (Ozempic) 0.5 mg (0.4 mL) SUBCUT QWEEK #1.5 01/04/21 ml blood sugar diagnostic #400 each 04/19/21 blood-glucose meter (OneTouch #1 ea 04/19/21 Ultra2 Meter) Air mattress #1 ea 06/15/21 acetaminophen 650 mg 1,300 mg PO Q12H #360 tab 06/21/21 tablet,extended release (Tylenol Arthritis Pain) albuterol sulfate 90 mcg/actuation 1 - 2 puff INHALATION Q4H PRN #18 06/21/21 aerosol inhaler (ProAir HFA) gm celecoxib 100 mg capsule (Celebrex) 100 mg PO DAILY #90 cap 06/21/21 gabapentin 100 mg capsule 100 mg PO BID #180 cap MDD 800mg 06/21/21 insulin degludec 200 unit/mL (3 40 unit (0.2 mL) SUBCUT DAILY #12 06/21/21 mL) subcutaneous pen (Tresiba ml MDD 80 units FlexTouch U-200 insulin) levothyroxine 50 mcg tablet 50 mcg PO DAILY #90 tab-cap 06/21/21 metoprolol succinate 25 mg 25 mg PO DAILY #90 tab 06/21/21 tablet,extended release 24 hr pantoprazole 40 mg tablet,delayed 40 mg PO DAILY #90 tab-cap 06/21/21 release rosuvastatin 10 mg tablet 10 mg PO DAILY #90 tab 06/21/21 pen needle, diabetic, safety 30 #100 ea 07/21/21 gauge x 1/3 (Novofine Autocover) finasteride 5 mg tablet (Proscar) 5 mg PO DAILY #90 tab 09/06/21 torsemide 5 mg tablet 5 mg PO .Every other AM #45 tab 09/06/21 amoxicillin 500 mg tablet 500 mg PO TID 10 Days #30 tab 09/09/21 Allergies Allergy/AdvReac Type Severity Reaction Status Date / Time bupropion HCl Allergy Severe seizures Verified 03/15/21 13:46 [From Wellbutrin] carvedilol [From Coreg] Allergy Mild Itching Verified 03/15/21 13:46 morphine AdvReac Unknown nausea Verified 03/15/21 13:46 General Stated Complaint: GenMedical DINESH: 3 Review of Systems All systems reviewed & are unremarkable except as noted in HPI and below Constitutional Constitutional: Denies chills, Denies excessive sweating, Denies fatigue, Denies fever(s), Denies weakness and Denies weight loss Eyes Eyes: Reports system reviewed and no additional complaints, except as documented and Denies blurry vision ENT Ears, Nose, Mouth, and Throat: Denies vertigo, Denies dizziness, Reports otalgia, Denies nasal congestion, Reports sore throat and Denies throat swelling Cardiovascular Cardiovascular: Denies chest pain, Denies syncope, Denies rapid heart rate and Reports dyspnea Respiratory Respiratory: Denies chest congestion, Denies cough, Denies pain on inspiration and Reports dyspnea Gastrointestinal Gastrointestinal: Denies abdominal pain, Denies diarrhea and Denies vomiting Genitourinary Genitourinary: Denies hematuria, Denies dysuria and Denies flank pain Musculoskeletal Musculoskeletal: Denies back pain and Denies joint swelling Integumentary/Breasts Skin/Breast: Denies lesions and Denies rash Neurologic Neurologic: Denies behavioral changes, Denies confusion, Denies vertigo, Denies dizziness, Denies syncope, Denies localized weakness and Denies weakness Psychiatric Psychiatric: Denies behavioral changes, Denies confusion and Denies depression Endocrine Endocrine: Denies excessive sweating and Denies fatigue Hematologic/Lymphatic Hematologic/Lymphatic: Denies easy bruising and Denies lymphadenopathy Allergic/Immunologic Allergic/Immunologic: Denies throat swelling PFSH All Active Problems (Updated 09/09/21 @ 17:33 by Rosalie Barclay DO) Otitis media (Acute) Urge incontinence (Chronic) Declines RX briefs Self-care deficit (Acute) Palliative care patient (Acute) Impaired mobility and ADLs (Acute) Bedbound (Acute) gets up with WC to BR Recurrent falls (Chronic) Difficulty transferring from bed to wheelchair (Chronic) DME hospital bed has helped Difficulty transferring from toilet to wheelchair (Chronic) Steph investigating commode Wheelchair bound (Chronic) no falls since starting using WC permanent need severe diabetic nephropathy needs more adaptive equipment in the home Cognitive attention deficit (Chronic) needs multiple repetitions of information Diabetes type 2, uncontrolled (Chronic) though she has had education over the years, still seems not to understand carb counting ideally needs someone to educate son as he buys her food also needs hands-on teaching with nutrition labels, etc. 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 chronic pain service Chronic Pain [facility] consult 10/26/15 [facility] [place] 03/04/17 (Sanket Sawant MD) Other and unspecified hyperlipidemia (Chronic 08/14/12) Esophageal reflux disease (Chronic 07/24/11) UPPER GI SERIES 11/14/2012, MOD HIATAL HERNIA SEVERE GERD Coronary artery disease involving [place] coronary artery of [place] heart (Chronic) INFERIOR NC 1996, 100% RCA occlusion; large inf defect on perfusion scan, dr Fair Chronic kidney disease, stage III (moderate) (Chronic 08/14/12) 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 Ward Allergic rhinitis (Chronic 12/09/12) Abdominal aortic aneurysm (Chronic 11/27/12) Identified 10/31/12 CT abd-pelvis; 4cm; stable 4.1 cm 07/2014 CT, 4.3cm 11/2016, 5.5cm 03/04/17 [place] 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 Guerra DJD of right shoulder (01/01/13) 12/2012 x-ray severe DJD glenohumeral joint Dr. Guerra; not a surgical candidate for replacement DNI (do not intubate) DNR (do not resuscitate) Episode of seizures in July 2012 Goals of care, counseling/discussion DNR/DNI COLST done wants to stay home may need new agent if/when Steph moves out of state as planned Incarcerated umbilical hernia (09/06/15) Iron deficiency anemia Nausea and vomiting (08/01/14) a. previous history of possible marijuana induced hyperemesis Olecranon bursitis, left elbow Resolved with appropriate DME Perirectal abscess With associated hospitalization 2020 POLST (Physician Orders for Life-Sustaining Treatment) signed 06/01/20 RLS (restless legs syndrome) Tinea corporis Surgical History Appendectomy Childhood surgery, no date given by pt.HE Hemiarthroplasty (06/13/15) Dr Charlie Gallardo shoulder History of carpal tunnel release of both wrists (~05/2012) Hx of umbilical hernia repair (09/06/15) Incarcerated umbilical hernia repair (09/06/15) Tonsillectomy childhood surgery, no date given by pt.HE Family History Mother , at 73 yo from dementia Dementia Diabetes Stroke Blind Father , MVA (truck) accident at 45yo No problems noted. Sister Age: 61 Thyroid cancer Brother , from complications of diabetes age 60 Diabetes Brother Diabetes Heart disease Colon cancer Ulcerative colitis Sister Obesity Prediabetes Arthritis Son Substance abuse attends [facility] clinic; h/o heroin and other opioid addiction Other FH: mental illness Social History Smoking/Tobacco Use Status: Current every day Tobacco Type: cigarettes Tobacco: How many years used: 54 Quit status: not considering quitting Counseling given: counseling >3 minutes Smoking risk assessment performed?: Yes Alcohol Intake: former Drug use: Daily Substance use type: marijuana Counseling given: Yes Details: pt states she smokes marijuana on a daily basis Adopted: No Caregiver/Support person: Yes Foster care: No Household members: children Housing: house Number of Children: 1 number of grandchildren: 0 Communication Needs: Corrective Lenses Education Level: high school Details: didn't finish sophomore year Do you need help understanding health information?: Always 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; 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 Pets and animals: Yes Current gender identity: female What is your relationship status?: How often do you talk on the phone with friends or family?: three or more times per week How often do you get together with friends or relatives?: twice per week Panel score (0-1 are the most socially isolated patients): 1 What type of physical activity do you participate in: none and wheelchair-bound Special eliana needs: No Seatbelt use: sometimes Working smoke detector in home: Yes Fire extinguisher in home: Yes Do you feel safe at home: No Do you feel safe in your relationship?: No Additional Social history: Lives with son, Ethan. Sister Steph is her DPOA. Sister planning on moving out of state late 2020, early 2021. Son works during the day. SHe loves wild animals, feeds birds and squirrels. Had a black bear coming onto her porch for a while. Raccoons too. Was at the [facility] in fall 2019. Everyone there was awesome. Hated not being able to smoke cigs or marijuana. Otherwise, good stay. Open to returning when necessary. Exam Const General: cooperative and no acute distress Orientation: alert, awake and oriented x3 HENMT Head: normal to inspection Ears: hearing grossly normal bilaterally, external ears normal and TM abnormal dull on the right and erythematous on the right General nose exam: external nose normal Face and sinus: normal facial exam Mouth: oral mucosae normal Teeth and gingiva: dentition normal Throat: posterior oropharynx normal Eyes General: appearance normal, both eyes and all related structures Eyelids: eyelids normal Pupils: PERRL EOM: EOM intact bilaterally Neck Neck: normal visual inspection Lymphatic: no lymphadenopathy noted Chest Chest: normal inspection of the chest Resp Effort & Inspection: normal respiratory effort and able to speak in complete sentences Auscultation: clear to auscultation bilaterally Cardio Rate: regular rate Rhythm: regular rhythm GI Inspection: normal to inspection Palpation: soft, not firm, no guarding, no hepatosplenomegaly, no masses and nontender Auscultation: normal bowel sounds Back/Spine/Pelvis Back: no CVA tenderness Skin General skin exam: no rashes or lesions noted Neuro General: patient alert and patient awake Cognition: normal cognition Speech: speech normal Gait: normal gait Motor: muscle tone normal throughout Sensory Exam: no sensory deficits noted Extrem Other: Left leg 2+ pitting edema. Psych Appearance: grossly normal Mental Status: mental status grossly normal Speech and Movement: speech and movement normal Affect: normal affect Thought Process: normal
--- NOTE | 2021-09-09 14:15 | DI.CT_ITS ---
Exam(s) CT NECK W EXAM: CT NECK W CLINICAL HISTORY: pain in R ear radiating R side of neck. TECHNIQUE: Imaging Protocol: Axial computed tomography images with coronal and sagittal reformatted images were created and reviewed. CONTRAST MATERIAL: Intravenous: Omnipaque 350 Contrast volume:100 ml COMPARISON: CT CT NECK W from 09/04/[address] HEAD CERVICAL SPINE WO from 01/23/2020 FINDINGS: Orbits and orbital soft tissues: Within normal limits. Visualized paranasal sinuses: Mucous retention cyst left maxillary sinus.. Mastoid air cells: Minimal opacification of the anteromedial right mastoid air cells. No bony destru ction. Nasopharynx: Within normal limits. Oropharynx: Within normal limits. Hypopharynx: Within normal limits. Larynx: Within normal limits. Retropharyngeal space: Within normal limits. Parotids/submandibular: Decreased size enhancing nodule superficial lobe right parotid gland, now 10 millimeters compared with 15 on the previous exam. On the no change in the size of the 1.9 cm ovoid enhancing mass in the deep lobe of the left parotid. Thyroid gland: Thyroid gland not well seen due to artifact. Question of nodule in the right lobe. Lymphadenopathy: There is scattered lymph nodes seen along the level one to level three all measurin g less than 8 mm in short axis diameter which are physiologic in nature. Trachea: Within normal limits. Lung apices: Respiratory motion. Grossly clear Bones: Multilevel degenerative changes in the cervical spine. Degenerative changes of the left tempo romandibular joint.. Carotids/Jugular: Atherosclerotic calcifications at the common carotid bulbs and proximal internal c arotid arteries causing mild stenosis. Soft tissues: Within normal limits. IMPRESSION: Decreased size of nodule in right parotid. Stable size left parotid mass. Atherosclerotic changes causing mild narrowing of the bilateral internal carotid arteries. RADIATION DOSE DELIVERED: 418.5mGy.cm Total DLP 418.5mGy.cm Total DLP DATA REPOSITORY: All CT scans at this facility are submitted to the National Radiology Data Registry (NRDR) Dose Index Registry (DIR) with the [employer] [place] [employer] (A[employer]). RADIATION OPTIMIZATION: All CT scans at this facility use at least one of these dose optimization te chniques: automated exposure control; mA and/or kV adjustment per patient size (includes targeted exa ms where dose is matched to clinical indication); or iterative reconstruction.
[2021-09-09 14:32] VITALS: BP 148/83; PULSE 79; RESP 20; TEMP 36.6; O2SAT 96
[2021-09-09 14:34] LABS: Abs Immature Grans 0.02 10^3/uL (0.0-0.06); Absolute Basophil Count 0.05 10^3/uL (0.0-0.2); Absolute Eosinophil Count 0.22 10^3/uL (0.0-0.7); Absolute Lymphocyte Count 1.82 10^3/uL (1.2-3.4); Absolute Neutrophil Count 5.12 10^3/uL (1.2-6.7); Basophils % 0.6; Eosinophils % 2.8; HCT 43.5 % (36.0-46.0); HGB 13.4 g/dL (11.2-15.7); Immature Grans % 0.3; Lymphocytes % 23.5; MCH 24.8 pg (27.0-33.0); MCHC 30.8 % (32.0-36.0); MCV 81 fL (80-95); MPV 10.9 fL (8.0-11.0); Monocytes % 6.5; Neutrophils % 66.3; Platelet Count 200 10^3/uL (130-400); RDW 15.7 % (11.7-14.6); WBC 7.73 10^3/uL (4.4-10.8)
[2021-09-09 14:55] LABS: ALT 21 U/L (14-59); AST 17 U/L (15-37); Albumin 3.5 g/dL (3.4-5.0); Alkaline Phosphatase 114 U/L (46-116); BUN 18 mg/dL (7-18); Bilirubin, Total 0.4 mg/dL (0.2-1.0); Calcium 10.1 mg/dL (8.5-10.1); Chloride 103 mmol/L (98-107); Glucose 247 mg/dL (74-106); Magnesium 1.7 mg/dL (1.8-2.4); Potassium 4.4 mmol/L (3.5-5.1); Sodium 137 mmol/L (136-145); Total Protein 7.1 g/dL (6.4-8.2); Troponin I < 50 ng/L (<or=60)
[2021-09-09] MEDS: Normal Saline 500 ML IV (15:09)
[2021-09-09] MEDS: ACETAMINOPHEN 1,000 MG/100 ML BTL 400 MG IVPB (15:10)
[2021-09-09 15:14] LABS: Bilirubin Negative (Negative); Blood Negative (Negative); Clarity Clear (Clear); Glucose 250 mg/dL (Negative); Ketones Negative (Negative); Leukocyte Esterase Trace (Negative); Nitrite Negative (Negative); Specific Gravity 1.015 (1.005-1.025); Urobilinogen 0.2 EU/dL (Up TO 0.2)
[2021-09-09 15:17] LABS: COVID-19 PCR Negative (Negative); Influenza A PCR Negative (Negative); Influenza B PCR Negative (Negative); RSV PCR Negative (Negative)
[2021-09-09 15:21] LABS: Bacteria Few HPF (Negative); C & S Indicated? No/Sq. Contamination; Casts Negative LPF (Negative); Crystals Negative HPF (Negative); Epithelial Cells Many HPF (Negative); Mucus Trace (Negative); RBC 0-2 HPF (0-2)
[2021-09-09] MEDS: Omnipaque 350 MG/ML 100 ML BTL IJ (15:44)
[2021-09-09] MEDS: Normal Saline Flush 10 ML SYR IVP (15:49)
[2021-09-09 16:14] VITALS: BP 145/77; PULSE 66; RESP 16; TEMP 36.5; O2SAT 96
--- NOTE | 2021-09-09 16:45 | DI.VRAD_ITS ---
PROCEDURE INFORMATION: Exam: CT Neck With Contrast Exam date and time: 09/09/2021 3:41 PM Age: 66 years old Clinical indication: Neck pain and other: Ear and neck pain TECHNIQUE: Imaging protocol: Computed tomography images of the neck with contrast. Radiation optimization: All CT scans at this facility use at least one of these dose optimization techniques: automated exposure control; mA and/or kV adjustment per patient size (includes targeted exams where dose is matched to clinical indication); or iterative reconstruction. Contrast material: OMNIPAQUE 350; Contrast volume: 100 ml; Contrast route: INTRAVENOUS (IV); COMPARISON: CT NECK W 09/04/2019 11:27 AM FINDINGS: Mastoid air cells: There is minimal opacification of the anteromedial right mastoid air cells. Paranasal sinuses: There is mucous retention cyst or polyp in the left maxillary sinus. Nasopharynx: Unremarkable. Oropharynx: Unremarkable. No significant tonsillar enlargement. Hypopharynx: Unremarkable. Larynx: Unremarkable. Normal epiglottis. Retropharyngeal space: Unremarkable. Submandibular/Parotid glands: There is a 1.9 x 1.2 cm axial by exit 1.6 cm enhancing ovoid mass in the left medial superficial upper to mid parotid gland. Additionally, there is a 1.0 cm nodule in the right superficial parotid gland, probably small lymphoid tissue. Thyroid: Thyroid gland is heterogeneous. There is 1.2 cm nodule in the right lobe of the thyroid gland. Lymph nodes: No lymphadenopathy. Trachea: Visualized trachea is unremarkable. Lungs: Unremarkable as visualized. Bones/joints: There is no acute fracture. There are multilevel disc degenerative changes in the cervical spine. There are prominent posterior osteophyte disc complex at C3-C4, C5-C6 without critical spinal canal stenosis. Vasculature: Atherosclerotic calcifications of bilateral carotid bifurcation with mild stenosis noted in the proximal internal carotid arteries. Soft tissues: Unremarkable. No significant soft tissue swelling. IMPRESSION: 1. No abnormal lymphadenopathy or neck mass. No definite abnormality identified in the bilateral external and middle ear. 2. 1.9 cm nonspecific enhancing ovoid mass in the left superficial parotid gland which could be due to Warthin tumor or pleomorphic adenoma or enlarged lymph node. Follow-up might be considered in 6 months. Dictated and Authenticated by: Ac Bran MD. Ordering:KIM Wiggins MD
--- NOTE | 2021-09-09 16:47 | DI.VRAD_ITS ---
PROCEDURE INFORMATION: Exam: XR Chest Exam date and time: 09/09/2021 3:48 PM Age: 66 years old Clinical indication: Shortness of breath TECHNIQUE: Imaging protocol: XR of the chest. Views: 1 view. COMPARISON: CR XR PORTABLE CHEST AP 02/04/2020 9:04 AM FINDINGS: Lungs: Unremarkable. No consolidation. Pleural spaces: Unremarkable. No pleural effusion. No pneumothorax. Heart/Mediastinum: Cardiac silhouette at the upper limits of normal in size. There is hiatal hernia. Bones/joints: There is right hip arthroplasty. IMPRESSION: 1. No acute pulmonary process. 2. Hiatal hernia. Dictated and Authenticated by: Ac Bran MD. Ordering:KIM Wiggins MD
[2021-09-09] MEDS: traMADol 50 MG TAB PO (17:48)
[2021-09-09] MEDS: Amoxicillin 500 MG CAP PO ×2 (17:48)
[2021-09-09 17:55] VITALS: BP 145/77; PULSE 66; RESP 16; TEMP 36.5; O2SAT 96
== END 2021-09-09 18:09 | disposition home or self-care (01) ==
PROVIDERS: Emergency Provider Physician Assistant; PCP Nurse Practitioner Adult Health
DX: H66.91 Otitis media, unspecified, right ear (principal); M54.2 Cervicalgia; R06.02 Shortness of breath; R07.9 Chest pain, unspecified; K11.8 Other diseases of salivary glands
CPT/HCPCS: 36415; 70491; 80053; 87637; 93005; 96361; 96374; 99284; 99285; 71045; 81003; 81015; 83735; 84484; 85025; 87081; 93010; J0131; J3490

== ENCOUNTER 2021-10-22 09:01 | Emergency (ER) | payer OTHER, MEDICAID, SELFPAY ==
--- NOTE | 2021-10-22 09:00 | RT.EKG_ITS ---
APPROVED REPORT Exam: Resting ECG Reason for Exam: weakness Patient Location: E HR:78 bpm ECG Measurements Heart Rate 78 AXIS WY 209 P -2 QRSd 134 QRS 15 QT 415 T 31 QTc 474 Conclusion Sinus rhythm...normal P axis, V-rate 60- 99 IVCD, consider LBBB...QRSd>120, notch/slur R I aVL V5-6 Probable anterolateral infarct, old...Q>35mS, abnrm ST-T, V2-V6,I,aVL
[2021-10-22 09:04] VITALS: BP 135/62; PULSE 76; RESP 16; TEMP 36.9; O2SAT 97
[2021-10-22 09:05] VITALS: RESP 16
--- NOTE | 2021-10-22 09:13 | ED.GENADUL_ITS ---
Discharge Plan Disposition Patient Disposition: AGAINST MEDICAL ADVICE Condition: Serious Discharge Details Clinical Impression: AAA (abdominal aortic aneurysm), Cellulitis, Diverticulitis, Urinary tract infection, Dyspnea, Weakness Primary Care Provider: Mai Castelan ED Provider: Mitch Beck Home Meds and New Rx's Prescriptions: New amoxicillin-pot clavulanate 875-125 mg tablet 1 tab PO BID Qty: 14 0RF sulfamethoxazole-trimethoprim [Bactrim DS] 800-160 mg tablet 1 tab PO Q12H Qty: 14 0RF Continued torsemide 5 mg tablet 5 mg PO .Every other AM Qty: 45 3RF finasteride [Proscar] 5 mg tablet 5 mg PO DAILY Qty: 90 3RF (DME) Air mattress See Rx Instructions .Route .MEDSUPPLY Qty: 1 0RF Rx Instructions: As directed budesonide-formoterol [Symbicort] 10.2 GM HFA aerosol inhaler 2 puff Inhalation BID Qty: 3 3RF Hold Instructions: Home Medication placed on hold at Doctor's office Label Comments: 04/01/17 Patient unsure of last dose. Maybe last Thur, but patient is noncompliant with medications CDG torsemide 10 mg tablet 10 mg PO .daily in AM Qty: 90 3RF Hold Instructions: Home Medication placed on hold at Doctor's office Rx Instructions: Diuretic for heart (CHF) & swelling ezetimibe [Zetia] 10 mg tablet 10 mg PO DAILY Qty: 90 3RF Hold Instructions: Home Medication placed on hold at Doctor's office Rx Instructions: to lower cholesterol (DME) lancets [OneTouch UltraSoft Lancets] Misc See Dose Instructions .ROUTE .MEDSUPPLY Qty: 400 3RF Dose Instruction: As directed Rx Instructions: E11.4 tests QID to keep A1C below 8 (DME) blood sugar diagnostic Strip See Dose Instructions .ROUTE .MEDSUPPLY Qty: 400 3RF Dose Instruction: As directed Rx Instructions: One Touch Ultra,E 11.40 tests QID to keep A1C below 8 (DME) blood-glucose meter [OneTouch Ultra2 Meter] Kit See Rx Instructions .ROUTE .MEDSUPPLY Qty: 1 0RF Rx Instructions: to check BS qid for DM E11.9 management to keep A1c under 8 acetaminophen [Tylenol Arthritis Pain] 650 mg tablet extended release 1,300 mg PO Q12H Qty: 360 3RF Rx Instructions: Chronic pain--do not exceed 4G in 24 hours tylenol albuterol sulfate [ProAir HFA] 90 mcg/actuation HFA aerosol inhaler 1 - 2 puff Inhalation Q4H PRN Qty: 18 3RF gabapentin 100 mg capsule 100 mg PO BID MDD 800mg Qty: 180 3RF Rx Instructions: Chronic pain Tresiba FlexTouch U-200 200 unit/mL (3 mL) insulin pen 40 unit subcut DAILY MDD 80 units Qty: 12 11RF Rx Instructions: Uncontrolled T2DM (stop Lantus) levothyroxine 50 mcg tablet 50 mcg PO DAILY Qty: 90 3RF metoprolol succinate 25 mg tablet extended release 24 hr 25 mg PO DAILY Qty: 90 3RF pantoprazole 40 mg tablet,delayed release (DR/EC) 40 mg PO DAILY Qty: 90 3RF rosuvastatin 10 mg tablet 10 mg PO DAILY Qty: 90 3RF Rx Instructions: Stop Simvastatin & take this instead for diabetes & cholesterol, 06/21/21 (DME) Novofine Autocover 30 gauge x 1/3 needle See Rx Instructions .ROUTE .MEDSUPPLY Qty: 100 3RF Rx Instructions: For DM E11.40 to maintain A1C <8, monitoring daily celecoxib 100 mg capsule See Rx Instructions .ROUTE .COMPLEX Qty: 28 0RF Dose Instruction: TAKE 1 CAPSULE BY MOUTH DAILY FOR CHRONIC PAIN, SPINAL STENOSIS Rx Instructions: TAKE 1 CAPSULE BY MOUTH DAILY FOR CHRONIC PAIN, SPINAL STENOSIS Ozempic 0.25 mg or 0.5 mg(2 mg/1.5 mL) pen injector See Rx Instructions subcut QWEEK Qty: 1.5 1RF Hold Instructions: Home Medication placed on hold at Doctor's office Rx Instructions: 0.25mg x4 weeks, then may increase to 0.5mg weekly for diabetes subcutaneously every week; Discharge Instructions Instructions: Urinary Tract Infection in Women (ED), Cellulitis (ED) Additional Instructions: you have an aneurysm of your aorta which is a large blood vessel in your abdomen. If this ruptures you would you should follow up with your primary care provider as soon as possible if you change your mind or have worsening symptoms return to the emergency department Medical Decision Making 66 yo female with multiple chronic medical problems comes in with ems with complaints of increased general weakness. She denies fevers or chills, has a history of blisters on her buttocks per patient and thinks she has one now as she has some discomfort their, not severe pain. She had some sharp chest pain yesterday for an hour per patient and denies any pain now and denies radiation of the pain when she had it or diaphoresis. She is caox4 and speaking clearly. She does seem tired and weak, no focal deficits on exam. She has diminished breath sounds at the bases, has pitting edema of both lower legs and the right leg is more swollen than the left. she does have erythema of the upper buttocks and has an abscess that is open and draining pus near the coccyx. I suspect she could have a dvt in her right leg unfortunately we don't have u/s here today. I'm concerned for PE given she has some shortness of breath and the chest pain yesterday and feel she is too high risk for PE to use d dimer so will obtain CTA. I did confirm obtaining a ct abdomen pelvis with IV contrast with this uses the same amount of contrast as well so this was also ordered to evaluate for deeper abscesses. Will also obtain labs to evaluate for anemia and electrolyte disorders. patient's ct abdomen pelvis showed AAA with signs of possible impending rupture along with diverticulitis, chest and head ct unremarkable. She is hemodynamically stable, will consult [facility]. Pt states if [facility] doesn't accept her to a room she will not go and will leave against our advise. Was able to explain to her importance of the AAA findings [facility] [place] the case and wants her evaluated in their ER, accepting provider in the ER is Dr. Velez, pt hemodynamically stable. Pt decided she did not want to be transferred down there as she was just going to their ER. I explained to her at length why we were transferring her down there but she did not want to go. She is caox4 and has capacity to make her own decisions currently. She understands she could if the aaa ruptures and she understands this and states I have to somehow. She denies any si/hi and is clinically sober and is not sure she would want a procedure done to fix the aaa. She is choosing to leave AMA. She understands she can return at any time if she changes her mind. For her buttock cellulitis, uti and diverticulitis will treat with augmentin and bactrim Differential Diagnosis Differential Diagnosis: PE, dvt, abscess, cellulitis Medical Records Medical records reviewed: Yes I reviewed the patient's medical records. Imaging Data Radiologic Study: Attestation: I personally reviewed and interpreted this imaging study as follows: Imaging: CT Scan Radiologist's impression: PROCEDURE INFORMATION: Exam: CT Head Without Contrast Exam date and time: 10/22/2021 10:31 AM Age: 66 years old Clinical indication: Other: Weakness TECHNIQUE: Imaging protocol: Computed tomography of the head without contrast. COMPARISON: CT HEAD CERVICAL SPINE WO 01/23/2020 6:44 PM FINDINGS: Brain: There is no acute intracranial hemorrhage. There is lucency in the cerebral white matter, likely microvascular disease although non-specific. No evidence of mass. There is no mass effect or midline shift. Matson white differentiation is intact. There are no extra-axial fluid collections. Cerebral ventricles: The ventricles and sulci are enlarged, consistent with volume loss / atrophy. No hydrocephalus. Paranasal sinuses: There is left maxillary sinus retention cyst or polyp. Mastoid air cells: No significant mastoid effusion. Bones/joints: No acute fract ure. Soft tissues: Unremarkable as visualized. Vasculature: There is vascular calcification. IMPRESSION: 1. No evidence of acute intracranial abnormality. No evidence of acute infarction, hemorrhage, or mass. 2. Atrophy and microvascular disease. Radiologic Study #2: Attestation: I personally reviewed and interpreted this imaging study as follows: Imaging: CT Scan Radiologist's impression: IMPRESSION: 1. There is an infrarenal abdominal aortic aneurysm with thick mural thrombus with a maximum diameter of 5.5 cm. This has increased since the previous CT scan. 2. There is contrast enhancement along the left anterolateral aspect of the aneurysm between the mural thrombus and wall of the aneurysm. This can be a sign of impending rupture. 3. Bilateral iliac artery aneurysms. 4. Prominent sigmoid diverticulosis. There is mural thickening in the mid sigmoid colon with adjacent fluid which may indicate acute sigmoid diverticulitis. 5. Diffuse mural thickening of the urinary bladder. Correlate clinically and with urinalysis Lab Data Lab results reviewed: Yes I reviewed the patient's lab results. ECG Data Attestation: I personally reviewed and interpreted this ECG (s) as follows: Prior ECG tracings: available for review Interpretation: sinus rhythm, rate of 78, pr 209, no acute st t wave ischemic findings HPI General Mode of arrival: EMS . Date/Time Provider Initiated Documentation: 10/22/21 09:03 . Limitations to Documentation: no limitations . Information obtained by: patient . History of Present Illness 66 year old F presents to the emergency department with the chief complaint of weakness, described as moderate, Patient reports no radiation. Patient started experiencing this day(s) (2) and it has been constant. No relieving factors improve symptom(s), No exacerbating factors reported . Patient did receive the following treatments prior to arrival, none Related Data Home Medications Medication Instructions Recorded Confirmed budesonide-formoterol HFA 80 2 puff inhalation BID ##3 01/28/17 10/22/21 mcg-4.5 mcg/actuation aerosol inhaler (Symbicort) torsemide 10 mg tablet 10 mg PO .daily in AM #90 tab-caps 04/12/20 10/22/21 ezetimibe 10 mg tablet (Zetia) 10 mg PO DAILY #90 tab-caps 07/14/20 10/22/21 lancets (OneTouch UltraSoft #400 ea 11/03/20 10/22/21 Lancets) blood sugar diagnostic #400 ea 04/19/21 10/22/21 blood-glucose meter (OneTouch #1 ea 04/19/21 10/22/21 Ultra2 Meter kit) Air mattress #1 ea 06/15/21 10/22/21 acetaminophen 650 mg 1,300 mg PO Q12H #360 tabs 06/21/21 10/22/21 tablet,extended release (Tylenol Arthritis Pain) albuterol sulfate 90 mcg/actuation 1 - 2 puff inhalation Q4H PRN #18 06/21/21 10/22/21 aerosol inhaler (ProAir HFA) grams gabapentin 100 mg capsule 100 mg PO BID #180 caps 06/21/21 10/22/21 insulin degludec 200 unit/mL (3 40 unit (0.2 mL) subcut DAILY #12 06/21/21 10/22/21 mL) subcutaneous pen (Tresiba mL FlexTouch U-200 insulin) levothyroxine 50 mcg tablet 50 mcg PO DAILY #90 tab-caps 06/21/21 10/22/21 metoprolol succinate 25 mg 25 mg PO DAILY #90 tabs 06/21/21 10/22/21 tablet,extended release 24 hr pantoprazole 40 mg tablet,delayed 40 mg PO DAILY #90 tab-caps 06/21/21 10/22/21 release rosuvastatin 10 mg tablet 10 mg PO DAILY #90 tabs 06/21/21 10/22/21 pen needle, diabetic, safety 30 #100 ea 07/21/21 10/22/21 gauge x 1/3 (Novofine Autocover) finasteride 5 mg tablet (Proscar) 5 mg PO DAILY #90 tabs 09/06/21 10/22/21 torsemide 5 mg tablet 5 mg PO .Every other AM #45 tabs 09/06/21 10/22/21 celecoxib 100 mg capsule See Rx Instructions .Route 09/22/21 10/22/21 .COMPLEX #28 caps semaglutide 0.25 mg or 0.5 mg (2 See Rx Instructions subcut QWEEK 10/12/21 10/22/21 mg/1.5 mL) subcutaneous pen #1.5 mL injector (MobileAware) amoxicillin 875 mg-potassium 1 tab PO BID #14 tabs 10/22/21 clavulanate 125 mg tablet sulfamethoxazole 800 1 tab PO Q12H #14 tabs 10/22/21 mg-trimethoprim 160 mg tablet (Bactrim DS) Previous Rx's Medication Instructions Recorded budesonide-formoterol HFA 80 2 puff inhalation BID ##3 01/28/17 mcg-4.5 mcg/actuation aerosol inhaler (Symbicort) torsemide 10 mg tablet 10 mg PO .daily in AM #90 tab-caps 04/12/20 ezetimibe 10 mg tablet (Zetia) 10 mg PO DAILY #90 tab-caps 07/14/20 lancets (OneTouch UltraSoft #400 ea 11/03/20 Lancets) blood sugar diagnostic #400 ea 04/19/21 blood-glucose meter (OneTouch #1 ea 04/19/21 Ultra2 Meter kit) Air mattress #1 ea 06/15/21 acetaminophen 650 mg 1,300 mg PO Q12H #360 tabs 06/21/21 tablet,extended release (Tylenol Arthritis Pain) albuterol sulfate 90 mcg/actuation 1 - 2 puff inhalation Q4H PRN #18 06/21/21 aerosol inhaler (ProAir HFA) grams gabapentin 100 mg capsule 100 mg PO BID #180 caps 06/21/21 insulin degludec 200 unit/mL (3 40 unit (0.2 mL) subcut DAILY #12 06/21/21 mL) subcutaneous pen (Tresiba mL FlexTouch U-200 insulin) levothyroxine 50 mcg tablet 50 mcg PO DAILY #90 tab-caps 06/21/21 metoprolol succinate 25 mg 25 mg PO DAILY #90 tabs 06/21/21 tablet,extended release 24 hr pantoprazole 40 mg tablet,delayed 40 mg PO DAILY #90 tab-caps 06/21/21 release rosuvastatin 10 mg tablet 10 mg PO DAILY #90 tabs 06/21/21 pen needle, diabetic, safety 30 #100 ea 07/21/21 gauge x 1/3 (Novofine Autocover) finasteride 5 mg tablet (Proscar) 5 mg PO DAILY #90 tabs 09/06/21 torsemide 5 mg tablet 5 mg PO .Every other AM #45 tabs 09/06/21 celecoxib 100 mg capsule See Rx Instructions .Route 09/22/21 .COMPLEX #28 caps semaglutide 0.25 mg or 0.5 mg (2 See Rx Instructions subcut QWEEK 10/12/21 mg/1.5 mL) subcutaneous pen #1.5 mL injector (Ozempic) amoxicillin 875 mg-potassium 1 tab PO BID #14 tabs 10/22/21 clavulanate 125 mg tablet sulfamethoxazole 800 1 tab PO Q12H #14 tabs 10/22/21 mg-trimethoprim 160 mg tablet (Bactrim DS) Allergies Allergy/AdvReac Type Severity Reaction Status Date / Time bupropion HCl Allergy Severe seizures Verified 10/22/21 09:10 [From Wellbutrin] carvedilol [From Coreg] Allergy Mild Itching Verified 10/22/21 09:10 morphine AdvReac Unknown nausea Verified 10/22/21 09:10 General Stated Complaint: GenMedical DINESH: 3 Review of Systems All systems reviewed & are unremarkable except as noted in HPI and below Constitutional Constitutional: Denies chills and Denies fever(s) Cardiovascular Cardiovascular: Denies chest pain Respiratory Respiratory: Denies cough Gastrointestinal Gastrointestinal: Denies abdominal pain, Denies nausea and Denies vomiting PFSH All Active Problems (Updated 10/22/21 @ 14:04 by Mitch Beck MD) AAA (abdominal aortic aneurysm) (Acute) Cellulitis (Acute) Diverticulitis (Chronic) Urinary tract infection (Acute) Dyspnea (Acute) Weakness (Acute) Urge incontinence (Chronic) Declines RX briefs Self-care deficit (Acute) Palliative care patient (Acute) Impaired mobility and ADLs (Acute) Bedbound (Acute) gets up with WC to BR Recurrent falls (Chronic) Difficulty transferring from bed to wheelchair (Chronic) DME hospital bed has helped Difficulty transferring from toilet to wheelchair (Chronic) Steph investigating commode Wheelchair bound (Chronic) no falls since starting using WC permanent need severe diabetic nephropathy needs more adaptive equipment in the home Cognitive attention deficit (Chronic) needs multiple repetitions of information Diabetes type 2, uncontrolled (Chronic) though she has had education over the years, still seems not to understand carb counting ideally needs someone to educate son as he buys her food also needs hands-on teaching with nutrition labels, etc. 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) Goal A1c < 7.5% Schein, neuropathy; Charcot's foot 03/19/13 [employer] Spinal stenosis of lumbar region with neurogenic claudication (Chronic 12/08/13) 04/13/2013 MRI Lumbar Spine: Facet arthropathy, DJD, L4-5, L5-S1 central spinal and neural foraminal stenosis Neurosurgery referral, but not a surgical candidate [facility] chronic pain service Chronic Pain [facility] Pain Center consult 10/26/15 [facility] [place] [place] 03/04/17 (Sanket Sawant MD) Other and unspecified hyperlipidemia (Chronic 08/14/12) Esophageal reflux disease (Chronic 07/24/11) UPPER GI SERIES 11/14/2012, MOD HIATAL HERNIA SEVERE GERD Coronary artery disease involving [place] coronary artery of [place] heart (Chronic) INFERIOR VT 1996, 100% RCA occlusion; large inf defect on perfusion scan, dr Fair Chronic kidney disease, stage III (moderate) (Chronic 08/14/12) 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 Ward Allergic rhinitis (Chronic 12/09/12) Abdominal aortic aneurysm (Chronic 11/27/12) Identified 10/31/12 CT abd-pelvis; 4cm; stable 4.1 cm 07/2014 CT, 4.3cm 11/2016, 5.5cm 03/04/17 [place] 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 Guerra DJD of right shoulder (01/01/13) 12/2012 x-ray severe DJD glenohumeral joint Dr. Guerra; not a surgical candidate for replacement DNI (do not intubate) DNR (do not resuscitate) Episode of seizures in July 2012 Goals of care, counseling/discussion DNR/DNI COLST done wants to stay home may need new agent if/when Steph moves out of state as planned Incarcerated umbilical hernia (09/06/15) Iron deficiency anemia Nausea and vomiting (08/01/14) a. previous history of possible marijuana induced hyperemesis Olecranon bursitis, left elbow Resolved with appropriate DME Perirectal abscess With associated hospitalization 2020 POLST (Physician Orders for Life-Sustaining Treatment) signed 06/01/20 RLS (restless legs syndrome) Tinea corporis Surgical History Appendectomy Childhood surgery, no date given by pt.HE Hemiarthroplasty (06/13/15) Dr Charlie Gallardo shoulder History of carpal tunnel release of both wrists (~05/2012) Hx of umbilical hernia repair (09/06/15) Incarcerated umbilical hernia repair (09/06/15) Tonsillectomy childhood surgery, no date given by pt.HE Family History Mother , at 73 yo from dementia Dementia Diabetes Stroke Blind Father , MVA (truck) accident at 45yo No problems noted. Sister Age: 61 Thyroid cancer Brother , from complications of diabetes age 60 Diabetes Brother Diabetes Heart disease Colon cancer Ulcerative colitis Sister Obesity Prediabetes Arthritis Son Substance abuse attends [facility]; h/o heroin and other opioid addiction Other FH: mental illness Social History Smoking/Tobacco Use Status: Current every day Tobacco Type: cigarettes Tobacco: How many years used: 54 Quit status: not considering quitting Counseling given: counseling >3 minutes Smoking risk assessment performed?: Yes Alcohol Intake: former Drug use: Daily Substance use type: marijuana Counseling given: Yes Details: pt states she smokes marijuana on a daily basis Adopted: No Caregiver/Support person: Yes Foster care: No Household members: children Housing: house Number of Children: 1 number of grandchildren: 0 Communication Needs: Corrective Lenses Education Level: high school Details: didn't finish sophomore year Do you need help understanding health information?: Always 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; 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 Pets and animals: Yes Current gender identity: female What is your relationship status?: How often do you talk on the phone with friends or family?: three or more times per week How often do you get together with friends or relatives?: twice per week Panel score (0-1 are the most socially isolated patients): 1 What type of physical activity do you participate in: none and wheelchair-bound Special eliana needs: No Seatbelt use: sometimes Working smoke detector in home: Yes Fire extinguisher in home: Yes Do you feel safe at home: No Do you feel safe in your relationship?: No Additional Social history: Lives with son, Ethan. Sister Steph is her DPOA. Sister planning on moving out of state late 2020, early 2021. Son works during the day. SHe loves wild animals, feeds birds and squirrels. Had a black bear coming onto her porch for a while. Raccoons too. Was at the [facility] in fall 2019. Everyone there was awesome. Hated not being able to smoke cigs or marijuana. Otherwise, good stay. Open to returning when necessary. Exam Const General: no acute distress Orientation: alert HENMT Head: normal to inspection Ears: external ears normal General nose exam: external nose normal Mouth: moist mucous membranes Eyes General: appearance normal, both eyes and all related structures Neck Neck: normal visual inspection Resp Effort & Inspection: normal respiratory effort and able to speak in complete sentences Cardio Rate: regular rate Skin General skin exam: other (erythema of both upper buttocks and an open lesion near coccyx with pus ) Neuro General: patient alert and patient oriented x3 Extrem General: other (pitting edema of both lower legs and right leg is more swollen than the lef) Psych Mental Status: mental status grossly normal Course Vital Signs Vital signs: Vital Signs Temperature 36.9 C 10/22/21 09:04 Pulse 76 10/22/21 09:04 Respiratory Rate 16 10/22/21 09:04 Blood Pressure 135/62 10/22/21 09:04 Pulse Oximetry 97 10/22/21 09:04 Temperature 36.9 C 10/22/21 09:04 Pulse 76 10/22/21 09:04 Respiratory Rate 16 10/22/21 09:04 Blood Pressure 135/62 10/22/21 09:04 Pulse Oximetry 97 10/22/21 09:04 Oxygen Delivery Method Room Air 10/22/21 09:04 Oxygen Flow Rate 0 10/22/21 09:04 Lab/Test Results Lab/Test Results: 10/22/21 09:04 Blood Blood Culture - Pending 10/22/21 09:04 Blood Blood Culture - Pending
--- NOTE | 2021-10-22 09:30 | DI.CT_ITS ---
Exam(s) CT HEAD WO EXAM: CT HEAD WO CLINICAL HISTORY: weakness. TECHNIQUE: Imaging Protocol: Axial computed tomography images with coronal and sagittal reformatted images were created and reviewed COMPARISON: CT CT HEAD CERVICAL SPINE WO from 01/23/2020 FINDINGS: Ventricles and Extra axial spaces: Normal in size and morphology for the patient's age. Hemorrhage: None. Cerebral parenchyma: Atrophy. White matter changes consistent with small vessel disease. Midline shift: None. Brainstem/Cerebellum: Normal. Calvarium: Normal. Visualized Paranasal sinuses/Mastoids: Mucous retention cyst floor of left maxillary sinus. IMPRESSION: No acute abnormality. RADIATION DOSE DELIVERED: 859.47mGy.cm Total DLP 859.47mGy.cm Total DLP DATA REPOSITORY: All CT scans at this facility are submitted to the National Radiology Data Registry (NRDR) Dose Index Registry (DIR) with the [employer] (ACR). RADIATION OPTIMIZATION: All CT scans at this facility use at least one of these dose optimization te chniques: automated exposure control; mA and/or kV adjustment per patient size (includes targeted exa ms where dose is matched to clinical indication); or iterative reconstruction.
--- NOTE | 2021-10-22 09:37 | DI.CT_ITS ---
Exam(s) CT CHEST PE ABD PELVIS W EXAM: CT CHEST PE ABD PELVIS W CLINICAL HISTORY: ?pe, ?abscess. TECHNIQUE: Imaging Protocol: Axial computed tomography images with coronal and sagittal reformatted images were created and reviewed CONTRAST MATERIAL: Intravenous: Isovue 370 contrast volume:100 ml Oral: no COMPARISON: CT CTA THORAX/ABDOMEN/PELVIS from 04/01/2017 FINDINGS: CHEST: Pulmonary arteries: Normal diameter. No emboli. Tracheobronchial tree: Patent where visualized. Mediastinum and Sonia: No dominant adenopathy or fluid collection. Pulmonary parenchyma: Mild dependent atelectasis. No consolidation or dominant measurable mass. Pleura: No effusion or pneumothorax. Lymph nodes: Within normal limits. Aorta: Thoracic portion non-dilated. No dissection. Severe atherosclerotic changes descending aorta. . Heart: Normal size. Coronary artery calcifications. Bones: Right shoulder prosthesis. No compression fracture. No lytic or blastic lesions. Large hiatal hernia. ABDOMEN: Liver: Normal density. No measurable mass. Gallbladder and biliary tract: No radiodense calculus or dilation. Pancreas: Normal density, no abnormal calcifications or inflammatory process. Spleen: Normal. Kidneys: Multi focal scarring bilaterally.. Nonobstructing stone mid to upper right kidney. No obst ructive uropathy. Bilateral cysts. No suspicious masses seen. Adrenal glands: No masses seen. Aorta: There is an infrarenal abdominal aortic aneurysm measuring 5.5 cm in greatest dimension. This is increased when compared with the prior exam. There is extensive calcification is well as mural t hrombus. There is some apparent contrast material within the mural thrombus. The mural thrombus cau ses some deformity of the remaining lumen. Mural thrombus extends into the iliac arteries which are also dilated. The right common iliac artery measures 2.5 cm. The left measures 2.3 cm. Branch vess els appear patent. Lymph nodes: Within normal limits. Soft tissues: Unremarkable. PELVIS: Bladder: Symmetric distention, mild wall thickening. This appears unchanged. Bowel: Diverticulosis lower descending and sigmoid. No diverticulitis. No evidence of appendicitis. No obstruction or bowel wall thickening. Peritoneal cavity: No ascites, collection or mesenteric inflammatory response. Bones: Severe degenerative disc changes and severe facet degenerative changes. Reproductive organs: Small uterine fibroid.. IMPRESSION: 5.5 centimeter infrarenal abdominal aortic aneurysm with mural thrombus. A small amount of contrast is seen extending into the mural thrombus which could be a sign impending rupture. Bilateral iliac a rtery aneurysms with mural thrombus. RADIATION DOSE DELIVERED: 1,621.22mGy.cm Total DLP DATA REPOSITORY: All CT scans at this facility are submitted to the National Radiology Data Registry (NRDR) Dose Index Registry (DIR) with the [employer] (ACR). RADIATION OPTIMIZATION: All CT scans at this facility use at least one of these dose optimization te chniques: automated exposure control; mA and/or kV adjustment per patient size (includes targeted exa ms where dose is matched to clinical indication); or iterative reconstruction.
[2021-10-22 09:38] LABS: Source Nasal/Nares
[2021-10-22 09:39] LABS: Abs Immature Grans 0.06 10^3/uL (0.0-0.06); Absolute Basophil Count 0.06 10^3/uL (0.0-0.2); Absolute Eosinophil Count 0.18 10^3/uL (0.0-0.7); Absolute Lymphocyte Count 1.21 10^3/uL (1.2-3.4); Absolute Monocyte Count 0.49 10^3/uL (0.1-0.8); BE (Venous) 2 mmol/L (-2-3); Basophils % 0.7; Eosinophils % 2.2; HCO3 (Venous) 27 mmol/L (23-28); HCT 41.2 % (36.0-46.0); HGB 12.9 g/dL (11.2-15.7); Immature Grans % 0.7; Lymphocytes % 14.8; MCH 24.9 pg (27.0-33.0); MCHC 31.3 % (32.0-36.0); MCV 79 fL (80-95); MPV 11.3 fL (8.0-11.0); Neutrophils % 75.6; O2 Sat (Venous) 76 %; Platelet Count 202 10^3/uL (130-400); RBC 5.19 10^6/uL (3.93-5.22); RDW 15.2 % (11.7-14.6); TCO2 (Venous) 24 mmol/L (24-29); pCO2 (Venous) 44 mmHg (41-51); pO2 (Venous) 42 mmHg
[2021-10-22 10:06] LABS: ALT 22 U/L (14-59); AST 21 U/L (15-37); Albumin 3.6 g/dL (3.4-5.0); Alkaline Phosphatase 128 U/L (46-116); Anion Gap 9.3 mmol/L (3-11); BUN 20 mg/dL (7-18); Bilirubin, Total 0.5 mg/dL (0.2-1.0); CO2 25.7 mmol/L (21.0-32.0); CREATININE 0.9 mg/dL (0.55-1.02); Calcium 10.3 mg/dL (8.5-10.1); Chloride 101 mmol/L (98-107); Creatine Kinase 161 U/L (26-192); Glucose 315 mg/dL (74-106); Magnesium 1.5 mg/dL (1.8-2.4); NT-proBNP 798 pg/mL (<300); Potassium 4.8 mmol/L (3.5-5.1); Sodium 136 mmol/L (136-145); TSH (W/Ref FT4) 1.37 uIU/mL (0.36-3.74); Total Protein 7.2 g/dL (6.4-8.2); Troponin I < 50 ng/L (<or=60)
[2021-10-22 10:09] LABS: Bilirubin Negative (Negative); Blood Trace-intact (Negative); Clarity Sl Cloudy (Clear); Glucose 500 mg/dL (Negative); Ketones Negative (Negative); Leukocyte Esterase Trace (Negative); Nitrite Negative (Negative); Specific Gravity 1.025 (1.005-1.025); Urobilinogen 0.2 EU/dL (Up TO 0.2)
[2021-10-22] MEDS: Normal Saline Flush 10 ML SYR IVP (10:24)
[2021-10-22 10:25] LABS: Epithelial Cells Many HPF (Negative)
[2021-10-22 10:26] LABS: Bacteria Rare HPF (Negative); C & S Indicated? C&S Done As Ordered; Casts 0-2 Hyaline LPF (Negative); Crystals Negative HPF (Negative); Mucus Trace (Negative); Other Cells Rare Yeast (Negative)
[2021-10-22 10:35] LABS: COVID-19 PCR Negative (Negative)
--- NOTE | 2021-10-22 10:45 | DI.VRAD_ITS ---
PROCEDURE INFORMATION: Exam: CT Head Without Contrast Exam date and time: 10/22/2021 10:31 AM Age: 66 years old Clinical indication: Other: Weakness TECHNIQUE: Imaging protocol: Computed tomography of the head without contrast. COMPARISON: CT HEAD CERVICAL SPINE WO 01/23/2020 6:44 PM FINDINGS: Brain: There is no acute intracranial hemorrhage. There is lucency in the cerebral white matter, likely microvascular disease although non-specific. No evidence of mass. There is no mass effect or midline shift. Matson white differentiation is intact. There are no extra-axial fluid collections. Cerebral ventricles: The ventricles and sulci are enlarged, consistent with volume loss / atrophy. No hydrocephalus. Paranasal sinuses: There is left maxillary sinus retention cyst or polyp. Mastoid air cells: No significant mastoid effusion. Bones/joints: No acute fracture. Soft tissues: Unremarkable as visualized. Vasculature: There is vascular calcification. IMPRESSION: 1. No evidence of acute intracranial abnormality. No evidence of acute infarction, hemorrhage, or mass. 2. Atrophy and microvascular disease. Dictated and Authenticated by: Laxmi Domínguez MD. Ordering:KJ Meyer MD
[2021-10-22] MEDS: VANCOMYCIN 1,500 MG in Normal Saline 250 ML 166.6666 MG IVPB (11:19)
[2021-10-22 11:39] VITALS: BP 162/80; PULSE 68; RESP 17; TEMP 37; O2SAT 98
--- NOTE | 2021-10-22 11:40 | DI.VRAD_ITS ---
Addendum created by Carlos Sr MD on 10/22/2021 11:42:13 AM EDT: THIS REPORT CONTAINS FINDINGS THAT MAY BE CRITICAL TO PATIENT CARE. The findings were verbally communicated via telephone conference with Mitch Beck at 11:42 AM EDT on 10/22/2021. The findings were acknowledged and understood. Initial report created on 10/22/2021 11:40:03 AM EDT: PROCEDURE INFORMATION: Exam: CTA Chest With Contrast Exam date and time: 10/22/2021 10:36 AM Age: 66 years old Clinical indication: Other: ? Pe, ? abscess TECHNIQUE: Imaging protocol: Computed tomographic angiography of the chest with contrast. 3D rendering (Not supervised by radiologist): MIP and/or 3D reconstructed images were created by the technologist. Contrast material: ISOVUE 370; Contrast volume: 100 ml; Contrast route: INTRAVENOUS (IV); COMPARISON: CTA THORAX/ABDOMEN/PELVIS 04/01/2017 9:59 AM FINDINGS: Pulmonary arteries: Normal. No pulmonary emboli. Aorta: There is calcification of the thoracic aorta. There is no thoracic aortic aneurysm or dissection. Lungs: There is mild dependent atelectasis. No pneumonia. Pleural spaces: Unremarkable. No pneumothorax. No pleural effusion. Heart: The heart is not enlarged. There is calcification of the coronary arteries. Lymph nodes: Unremarkable. No enlarged lymph nodes. Diaphragm: There is a large hiatal hernia. Bones/joints: Unremarkable. No acute fracture. Soft tissues: Unremarkable. IMPRESSION: 1. No evidence of pulmonary embolus or aortic aneurysm/dissection. 2. Large hiatal hernia. 3. Coronary artery calcification. PROCEDURE INFORMATION: Exam: CT Angiography Abdomen With Contrast Exam date and time: 10/22/2021 10:36 AM Age: 66 years old Clinical indication: Other: ? Pe, ? abscess TECHNIQUE: Imaging protocol: Computed tomographic angiography images of the abdomen with intravenous contrast material. 3D rendering (Not supervised by radiologist): MIP and/or 3D reconstructed images were created by the technologist. Contrast material: ISOVUE 370; Contrast volume: 100 ml; Contrast route: INTRAVENOUS (IV); COMPARISON: CTA THORAX/ABDOMEN/PELVIS 04/01/2017 9:59 AM FINDINGS: Aorta: There is an infrarenal abdominal aortic aneurysm measuring 5.5 cm in diameter. There is thick calcifying mural thrombus in the aneurysm. Along the left anterolateral aspect of this aneurysm there is contrast enhancement between the wall of the aneurysm and the mural thrombus. This may represent dissection into the mural thrombus. This can be a sign of impending rupture. There are bilateral iliac artery aneurysms with mural thrombus. The right common iliac artery measures 2.5 cm in diameter. The left common iliac artery measures 2.3 cm in diameter. Celiac trunk and mesenteric arteries: No occlusion or significant stenosis. Renal arteries: No occlusion or significant stenosis. Liver: Small benign calcified granulomas are present in the liver. No liver masses. Gallbladder and bile ducts: Normal. No calcified stones. No ductal dilation. Pancreas: There are calcifications in the pancreas which are consistent with chronic pancreatitis. The pancreatic duct is not dilated. Spleen: Normal. No splenomegaly. Adrenals: Normal. No mass. Kidneys and ureters: There are multiple benign appearing cysts in the kidneys measuring up to 16 mm in diameter. There is a small nonobstructing calcification in the upper pole of the right kidney. There is no hydronephrosis or ureteral calculus. Stomach and bowel: There is prominent sigmoid diverticulosis. There is mural thickening of the mid sigmoid colon with some fluid along the lateral aspect which may indicate acute diverticulitis. Lymph nodes: Unremarkable. No enlarged lymph nodes. Intraperitoneal space: Unremarkable. No free air. No significant fluid collection. Bladder: There is diffuse mural thickening of the urinary bladder. This could indicate a cystitis. Bones/joints: Prominent chronic degenerative changes are present in the spine. No acute bony abnormality. Soft tissues: Unremarkable. IMPRESSION: 1. There is an infrarenal abdominal aortic aneurysm with thick mural thrombus with a maximum diameter of 5.5 cm. This has increased since the previous CT scan. 2. There is contrast enhancement along the left anterolateral aspect of the aneurysm between the mural thrombus and wall of the aneurysm. This can be a sign of impending rupture. 3. Bilateral iliac artery aneurysms. 4. Prominent sigmoid diverticulosis. There is mural thickening in the mid sigmoid colon with adjacent fluid which may indicate acute sigmoid diverticulitis. 5. Diffuse mural thickening of the urinary bladder. Correlate clinically and with urinalysis. Dictated and Authenticated by: Carlos Sr MD. Ordering:KJ Meyer MD
[2021-10-22 13:22] LABS: Troponin I < 50 ng/L (<or=60)
[2021-10-22 14:15] VITALS: BP 168/90; PULSE 90; RESP 17; TEMP 37; O2SAT 95
--- NOTE | 2021-10-22 14:17 | NUR.NOTE ---
Nursing Note: Patient requested to leave against medical advice. Witnessed Dr. Beck have detailed discussion with patient regarding the risks of doing so. Patient understands that her condition may worsen or she may . She accepts these risks and is alert and oriented, able to make decisions for herself. AMA paperwork signed, patient wheeled out of ED with discharge instructions and prescriptions for antibiotics.
== END 2021-10-22 14:12 | disposition left against medical advice (07) ==
PROVIDERS: Emergency Provider Emergency Medicine; PCP Nurse Practitioner Adult Health
DX: I71.4 Abdominal aortic aneurysm, without rupture (principal); K57.32 Diverticulitis of large intestine without perforation or abscess without bleeding; N39.0 Urinary tract infection, site not specified; R53.1 Weakness; R06.00 Dyspnea, unspecified; L03.115 Cellulitis of right lower limb; Z53.29 Procedure and treatment not carried out because of patient's decision for other reasons
CPT/HCPCS: 36415; 71275; 74177; 80053; 82550; 82805; 87040; 87635; 93005; 96365; 96366; 99285; 70450; 81003; 81015; 83605; 83735; 83880; 84443; 84484; 85025; 87086; 93010

== ENCOUNTER 2021-12-22 01:53 | Observation (INO) | payer OTHER, MEDICARE, MEDICAID, SELFPAY ==
[2021-12-22] VITALS (61 sets, daily range): BP systolic 102–145; BP diastolic 50–82; PULSE 54–91; RESP 10–23; TEMP 36.3–36.8; O2SAT 90–98
--- NOTE | 2021-12-22 02:00 | DI.CT_ITS ---
Exam(s) CT THORAX ABD/PEL CTA EXAM: CT THORAX ABD/PEL CTA TECHNIQUE: Imaging Protocol: Axial computed tomography images with coronal and sagittal reformatted images were created and reviewed Images were performed from the clavicles through the ischial tuberosities during arterial phase of co ntrast administration. CONTRAST MATERIAL Intravenous: Omnipaque 350 Contrast volume:100 cc Oral: / no COMPARISON: CT CT CHEST WO from 01/23/2020 CR,XR XR CHEST 1V IN DI DEPT from 09/09/[address] CHEST PE ABD PELVIS W from 10/22/2021 FINDINGS: CT Chest: There are filling defects seen in the right lower lobe pulmonary arteries extending to the right main pulmonary artery. No upper or middle lobe emboli are seen. There is a question of few small defects in the left lower lobe pulmonary arteries. The aorta shows severe atherosclerotic changes. There is mild dilatation of the ascending aorta to 3 .9 cm. The descending aorta shows normal diameter but severe atherosclerotic plaque. There is no d issection. The heart is mildly enlarged. Coronary artery calcifications are seen. The lungs show dependent changes. There is a large hiatal hernia. The bones are unremarkable. CT Abdomen and Pelvis: Severe atherosclerotic changes of the abdominal aorta and branch vessels. The abdominal aorta is yoli sured at 5.3 cm. There is significant mural thrombus. There is no dissection or leak. Both iliac a rteries show severe atherosclerotic changes and dilatation, measured at 2.5 cm bilaterally. No occlu hernan of mesenteric vasculature or renal vasculature. The venous structures are not yet opacified with contrast and thrombus cannot be excluded. Gallbladder is contracted. Calcifications are again noted in the liver. There are small bilateral r enal cysts. There is some right renal parenchymal atrophy and scarring. A few small nonobstructing s tones are noted in the right kidney. There is sigmoid diverticulosis and wall thickening. The findings could indicate mild diverticulitis . Question of rectal wall thickening. No perforation or gross focal abscess. increased quantity of stool seen in the rectum. No small bowel dilatation. The spleen, pancreas and adrenals are unremarkable. Small uterine fibroids are noted. The ovaries a nd bladder are unremarkable. There is scoliosis and degenerative changes in the lumbar spine. Scarr ing is noted in the abdominal wall. There is some dependent edema seen posteriorly. IMPRESSION: Bilateral lower lobe pulmonary emboli, right greater than left. The venous structures of the abdomen and pelvis are not yet opacified with contrast and thrombosis is not excluded. Severe atherosclerotic changes of the abdominal aorta and abdominal aortic aneurysm with significant mural thrombus, stable from prior. Bilateral common iliac artery aneurysms, stable versus mildly enl arged. No occlusion of branch vessels. Diverticulosis and question of mild diverticulitis of the sigmoid colon. Large quantity of stool in the rectum and question of rectal wall thickening. RADIATION DOSE DELIVERED: 1,173.45mGy.cm Total DLP DATA REPOSITORY: All CT scans at this facility are submitted to the National Radiology Data Registry (NRDR) Dose Index Registry (DIR) with the [employer] (ACR). RADIATION OPTIMIZATION: All CT scans at this facility use at least one of these dose optimization te chniques: automated exposure control; mA and/or kV adjustment per patient size (includes targeted exa ms where dose is matched to clinical indication); or iterative reconstruction.
--- NOTE | 2021-12-22 02:00 | RT.EKG_ITS ---
APPROVED REPORT Exam: Resting ECG Reason for Exam: weakness Patient Location: E HR:65 bpm ECG Measurements Heart Rate 65 AXIS IN 290 P -25 QRSd 136 QRS 24 QT 437 T 27 QTc 457 Conclusion Unknown rhythm, irregular rate...V-rate 51- 82, variation>10% Prolonged IN interval...IN >220, V-rate 50- 90 IVCD, consider LBBB...QRSd>120, notch/slur R I aVL V5-6 Probable anterolateral infarct, old...Q>35mS, abnrm ST-T, V2-V6,I,aVL Physician: no stemi, unchanged from prior ekg on 10/22/2021
--- NOTE | 2021-12-22 02:00 | DI.CT_ITS ---
Exam(s) CT HEAD WO EXAM: CT HEAD WO CLINICAL HISTORY: difficulty speaking and slurred speech. TECHNIQUE: Imaging Protocol: Axial computed tomography images with coronal and sagittal reformatted images were created and reviewed COMPARISON: CT CT HEAD WO from 10/22/2021 FINDINGS: Ventricles and Extra axial spaces: Normal in size and morphology for the patient's age. Hemorrhage: None. Cerebral parenchyma: Atrophy. White matter changes consistent with small vessel disease. Midline shift: None. Brainstem/Cerebellum: Normal. Calvarium: Normal. Visualized Paranasal sinuses/Mastoids: Mucous retention cyst floor left maxillary sinus, otherwise cl ear. IMPRESSION: No acute abnormality. RADIATION DOSE DELIVERED: 904.98mGy.cm Total DLP 904.98mGy.cm Total DLP DATA REPOSITORY: All CT scans at this facility are submitted to the National Radiology Data Registry (NRDR) Dose Index Registry (DIR) with the [employer] (ACR). RADIATION OPTIMIZATION: All CT scans at this facility use at least one of these dose optimization te chniques: automated exposure control; mA and/or kV adjustment per patient size (includes targeted exa ms where dose is matched to clinical indication); or iterative reconstruction.
[2021-12-22 02:27] LABS: Abs Immature Grans 0.02 10^3/uL (0.0-0.06); Absolute Basophil Count 0.04 10^3/uL (0.0-0.2); Absolute Eosinophil Count 0.27 10^3/uL (0.0-0.7); Absolute Lymphocyte Count 1.43 10^3/uL (1.2-3.4); Absolute Monocyte Count 0.66 10^3/uL (0.1-0.8); Absolute Neutrophil Count 5.38 10^3/uL (1.2-6.7); Basophils % 0.5; Eosinophils % 3.5; HCT 40.1 % (36.0-46.0); HGB 12.2 g/dL (11.2-15.7); Immature Grans % 0.3; Lymphocytes % 18.3; MCH 25.3 pg (27.0-33.0); MCHC 30.4 % (32.0-36.0); MCV 83 fL (80-95); MPV 11.2 fL (8.0-11.0); Monocytes % 8.5; Neutrophils % 68.9; Platelet Count 199 10^3/uL (130-400); RBC 4.83 10^6/uL (3.93-5.22); RDW 15.7 % (11.7-14.6); RDW-SD 46.6 fL
--- NOTE | 2021-12-22 02:27 | W.ED.GENAD ---
Discharge Plan Disposition Patient Disposition: [facility] INPATIENT Condition: Stable Discharge Details Chief Complaint: GenMedical Clinical Impression: Pulmonary embolism, AAA (abdominal aortic aneurysm), Adult failure to thrive, Weakness, Slurred speech Primary Care Provider: Mai Castelan ED Provider: Jeremie Mcdonald Home Meds and New Rx's Prescriptions: No Action torsemide 5 mg tablet 5 mg PO .Every other AM Qty: 45 3RF finasteride [Proscar] 5 mg tablet 5 mg PO DAILY Qty: 90 3RF morphine concentrate 100 mg/5 mL (20 mg/mL) solution 5 - 20 mg PO Q1-4H MDD 480 PRN (Reason: pain) Qty: 30 0RF gabapentin 100 mg capsule 200 mg PO BID MDD 800mg Qty: 360 3RF Rx Instructions: Chronic pain; dose increase 10/25/21 (DME) Air mattress See Rx Instructions .Route .MEDSUPPLY Qty: 1 0RF Rx Instructions: As directed budesonide-formoterol [Symbicort] 10.2 GM HFA aerosol inhaler 2 puff Inhalation BID Qty: 3 3RF Hold Instructions: Home Medication placed on hold at Doctor's office Label Comments: 04/01/17 Patient unsure of last dose. Maybe last Thur, but patient is noncompliant with medications CDG ezetimibe [Zetia] 10 mg tablet 10 mg PO DAILY Qty: 90 3RF Hold Instructions: Home Medication placed on hold at Doctor's office Rx Instructions: to lower cholesterol (DME) lancets [OneTouch UltraSoft Lancets] Misc See Dose Instructions .ROUTE .MEDSUPPLY Qty: 400 3RF Dose Instruction: As directed Rx Instructions: E11.4 tests QID to keep A1C below 8 (DME) blood sugar diagnostic Strip See Dose Instructions .ROUTE .MEDSUPPLY Qty: 400 3RF Dose Instruction: As directed Rx Instructions: One Touch Ultra,E 11.40 tests QID to keep A1C below 8 (DME) blood-glucose meter [OneTouch Ultra2 Meter] Kit See Rx Instructions .ROUTE .MEDSUPPLY Qty: 1 0RF Rx Instructions: to check BS qid for DM E11.9 management to keep A1c under 8 acetaminophen [Tylenol Arthritis Pain] 650 mg tablet extended release 1,300 mg PO Q12H Qty: 360 3RF Rx Instructions: Chronic pain--do not exceed 4G in 24 hours tylenol albuterol sulfate [ProAir HFA] 90 mcg/actuation HFA aerosol inhaler 1 - 2 puff Inhalation Q4H PRN Qty: 18 3RF Tresiba FlexTouch U-200 200 unit/mL (3 mL) insulin pen 40 unit subcut DAILY MDD 80 units Qty: 12 11RF Rx Instructions: Uncontrolled T2DM (stop Lantus) levothyroxine 50 mcg tablet 50 mcg PO DAILY Qty: 90 3RF metoprolol succinate 25 mg tablet extended release 24 hr 25 mg PO DAILY Qty: 90 3RF pantoprazole 40 mg tablet,delayed release (DR/EC) 40 mg PO DAILY Qty: 90 3RF rosuvastatin 10 mg tablet 10 mg PO DAILY Qty: 90 3RF Rx Instructions: Stop Simvastatin & take this instead for diabetes & cholesterol, 06/21/21 (DME) Novofine Autocover 30 gauge x 1/3 needle See Rx Instructions .ROUTE .MEDSUPPLY Qty: 100 3RF Rx Instructions: For DM E11.40 to maintain A1C <8, monitoring daily Ozempic 0.25 mg or 0.5 mg(2 mg/1.5 mL) pen injector See Rx Instructions subcut QWEEK Qty: 1.5 1RF Hold Instructions: Home Medication placed on hold at Doctor's office Rx Instructions: 0.25mg x4 weeks, then may increase to 0.5mg weekly for diabetes subcutaneously every week; celecoxib 100 mg capsule See Rx Instructions .ROUTE .COMPLEX Qty: 28 6RF Dose Instruction: TAKE 1 CAPSULE BY MOUTH DAILY FOR CHRONIC PAIN, SPINAL STENOSIS Rx Instructions: TAKE 1 CAPSULE BY MOUTH DAILY FOR CHRONIC PAIN, SPINAL STENOSIS torsemide 10 mg tablet 5 mg PO .EVERY OTHER DAY Rx Instructions: Diuretic for heart (CHF) & swelling sulfamethoxazole-trimethoprim [Bactrim DS] 800-160 mg tablet 1 tab PO Q12H Qty: 14 0RF Medical Decision Making This is a 66-year-old female with a past medical history of obesity, diabetes mellitus, hypertension, coronary artery disease, chronic kidney disease, COPD, who is an active smoker, with a known AAA, most recently measured at 5.1 cm in October of this past year, (who is not interested in surgery and would like to manage to be AAA medically with palliative care), who is also normally very resistant to admission to [facility] or transfer to [facility] presents today via EMS for evaluation of generalized and worsening pain, increased failure to thrive and difficulty controlling and performing ADLs. Multiple calls were made to EMS today for lift assist, as well as to help with stooling. Patient states that over the last 3 days she has had a notable increase in her chronic abdominal pain. She also admits to some difficulty having a bowel movement in general, which she feels is secondary to the increased morphine that she has been taking. This evening after multiple calls by EMS, the patient was again reassessed by EMS, and after discussion with EMS, the son, and the patient the patient agreed to go to the emergency department for further evaluation of her pain and worsening symptomatology. The patient denies any diarrhea but does admit to intermittent vomiting over the last 2 to 3 days. She does admit to chronic swelling in the left lower extremity. Pain in the abdomen is generalized, and achy everywhere, and sharp in the lower regions. She denies any chest pain or new shortness of breath, but does admit to generalized fatigue and weakness. She states that she is unable to get up by herself, is unable to perform her ADLs without assistance. No other complaints at this time. She also does state that she would be amendable to admission, and states that I think it is finally time and I come in and get help. Additionally the patient also does mention that she has had a slight increase in difficulty speaking over the last 3 to 4 days, and feels that she is more tired than normal. Physical exam demonstrates what appears to be deconditioned female. Notable weakness in the lower and upper extremities which appears to be acute on chronic. No clear evidence of focal neurologic deficit for the lower extremities. She does have mild slurring of her speech but no asymmetric facial droop on current exam. She does appear tired, she has not had any morphine for about 18 hours ago. Abdominal exam demonstrates tenderness throughout, but also at the lower abdominal region. Left lower extremity demonstrates mild edema, but no clear evidence of DVT on exam. Differential is broad, and includes likely multiple issues including chronic deconditioning, failure to thrive, inability to perform ADLs, worsening AAA, constipation, and/or stroke. Of note with the longevity of the patient's symptoms starting about 3 days ago for her difficulty speaking, I would just believe that she would notably be out of the therapeutic window for tPA at this time. We will evaluate for these etiologies, monitor closely and reassess. 6:05 AM Laboratory work-up is returned, no significant white count, hemoglobin stable. Renal function stable. proBNP is actually slightly better than normal. Urinalysis negative for infection. Troponin normal. CT scan of the head demonstrates no evidence of acute infarct. No bleeds. CAT scan of the abdomen demonstrates multiple abnormalities, aorta/AAA appears stable. 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 Questionable residual recurrent sigmoid diverticulitis. Mild thickening of the urinary bladder. There also appears to be a filling defect in the interlobar artery of the right lung consistent with a pulmonary embolism. No evidence of heart strain on CAT scan though. Patient remains notably weak in general, and she does agree to admission at this time as she is unable to complete any of her activities at home, now demonstrates continued and worsening pathology. With no signs of severe hypoxemia, or significant heart strain, I question the indication for emergent systemic anticoagulation especially in light of her aneurysm, worsening iliac artery aneurysms, and vascular disease in that way. These risks and benefits were discussed with the patient, and at this time she does not have a clear direction as to what she would prefer in regards to the risks or benefits of anticoagulation in the setting of a AAA and aneurysms in general. With her multiple medical problems, and etiologies I do feel that this in combination with her failure to thrive and her inability to care for self necessitate need for admission and rediscussion of potential placement options. I do feel that a palliative care consult is again indicated in this scenario. I discussed the case with the hospitalist Dr. Holder, he agrees with the assessment and plan. I have extensively reviewed the treatment plan with the patient. I have addressed all patient concerns at this time. I have also discussed the plan with the admitting physician and they agree with the current assessment and plan and have agreed to assume responsibility for the patient. All parties demonstrate verbal understanding and agreement with our assessment and plan at this time. The documentation in this chart was dictated using [employer] dictation software. Please excuse any dictation errors. IMPRESSION: 1. Atherosclerotic changes of the aorta without acute dissection flap. Abnormal contrast within the thrombosed lumen of the aorta similar to the prior. 2. 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 3. Question residual recurrent sigmoid diverticulitis. 4. Diminished wall thickening of the urinary bladder. 5. Cardiomegaly which is better seen than on the prior. 6. Filling defects in the intralobar artery on the right consistent with acute pulmonary emboli. No convincing evidence of right heart strain. 7. Moderate hiatal hernia. 8. Question tiny filling defect in the common bile duct for which ultrasound follow-up can be utilized. Thank you for allowing us to participate in the care of your patient. Dictated and Authenticated by: Missael Nixon MD 12/22/2021 5:37 AM Eastern Time ([place] & [place]) FINDINGS: Brain: There is no evidence of acute brain infarct, mass, shift of midline or parenchymal hemorrhage. Patchy periventricular white matter low attenuation present, a nonspecific finding but likely related to chronic small vessel ischemic change. No acute extra-axial fluid collection Cerebral ventricles: Moderate dilatation of the ventricular system and sulci diffusely, compatible with volume loss. Paranasal sinuses: Polyp or mucous retention cyst within the left maxillary sinus Mastoid air cells: Visualized mastoid air cells are well aerated. Bones/joints: Unremarkable. No acute fracture. Soft tissues: Unremarkable. IMPRESSION: 1. Chronic small vessel ischemic change 2. No evidence of acute infarct 3. If there is continued clinical concern, MRI imaging recommended Thank you for allowing us to participate in the care of your patient. Dictated and Authenticated by: Cesilia Melendez MD 12/22/2021 5:30 AM Eastern Time ([place] & [place]) HPI General Date/Time Provider Initiated Documentation: 12/22/21 02:06. HPI Narrative: This is a 66-year-old female with a past medical history of obesity, diabetes mellitus, hypertension, coronary artery disease, chronic kidney disease, COPD, who is an active smoker, with a known AAA, most recently measured at 5.1 cm in October of this past year, (who is not interested in surgery and would like to manage to be AAA medically with palliative care), who is also normally very resistant to admission to [facility] or transfer to [facility] presents today via EMS for evaluation of generalized and worsening pain, increased failure to thrive and difficulty controlling and performing ADLs. Multiple calls were made to EMS today for lift assist, as well as to help with stooling. Patient states that over the last 3 days she has had a notable increase in her chronic abdominal pain. She also admits to some difficulty having a bowel movement in general, which she feels is secondary to the increased morphine that she has been taking. This evening after multiple calls by EMS, the patient was again reassessed by EMS, and after discussion with EMS, the son, and the patient the patient agreed to go to the emergency department for further evaluation of her pain and worsening symptomatology. The patient denies any diarrhea but does admit to intermittent vomiting over the last 2 to 3 days. She does admit to chronic swelling in the left lower extremity. Pain in the abdomen is generalized, and achy everywhere, and sharp in the lower regions. She denies any chest pain or new shortness of breath, but does admit to generalized fatigue and weakness. She states that she is unable to get up by herself, is unable to perform her ADLs without assistance. No other complaints at this time. She also does state that she would be amendable to admission, and states that I think it is finally time and I come in and get help. Additionally the patient also does mention that she has had a slight increase in difficulty speaking over the last 3 to 4 days, and feels that she is more tired than normal. Related Data Home Medications Medication Instructions Recorded Confirmed budesonide-formoterol HFA 80 2 puff inhalation BID ##3 01/28/17 12/22/21 mcg-4.5 mcg/actuation aerosol inhaler (Symbicort) ezetimibe 10 mg tablet (Zetia) 10 mg PO DAILY #90 tab-caps 07/14/20 11/01/21 lancets (OneTouch UltraSoft #400 ea 11/03/20 11/01/21 Lancets) blood sugar diagnostic #400 ea 04/19/21 11/01/21 blood-glucose meter (OneTouch #1 ea 04/19/21 11/01/21 Ultra2 Meter kit) Air mattress #1 ea 06/15/21 11/01/21 acetaminophen 650 mg 1,300 mg PO Q12H #360 tabs 06/21/21 12/22/21 tablet,extended release (Tylenol Arthritis Pain) albuterol sulfate 90 mcg/actuation 1 - 2 puff inhalation Q4H PRN #18 06/21/21 12/22/21 aerosol inhaler (ProAir HFA) grams insulin degludec 200 unit/mL (3 40 unit (0.2 mL) subcut DAILY #12 06/21/21 12/22/21 mL) subcutaneous pen (Tresiba mL FlexTouch U-200 insulin) levothyroxine 50 mcg tablet 50 mcg PO DAILY #90 tab-caps 06/21/21 12/22/21 metoprolol succinate 25 mg 25 mg PO DAILY #90 tabs 06/21/21 12/22/21 tablet,extended release 24 hr pantoprazole 40 mg tablet,delayed 40 mg PO DAILY #90 tab-caps 06/21/21 12/22/21 release rosuvastatin 10 mg tablet 10 mg PO DAILY #90 tabs 06/21/21 12/22/21 pen needle, diabetic, safety 30 #100 ea 07/21/21 11/01/21 gauge x 1/3 (Novofine Autocover) finasteride 5 mg tablet (Proscar) 5 mg PO DAILY #90 tabs 09/06/21 12/22/21 torsemide 5 mg tablet 5 mg PO .Every other AM #45 tabs 09/06/21 12/22/21 semaglutide 0.25 mg or 0.5 mg (2 See Rx Instructions subcut QWEEK 10/12/21 11/01/21 mg/1.5 mL) subcutaneous pen #1.5 mL injector (Ozempic) sulfamethoxazole 800 1 tab PO Q12H #14 tabs 10/22/21 11/01/21 mg-trimethoprim 160 mg tablet (Bactrim DS) celecoxib 100 mg capsule See Rx Instructions .Route 10/23/21 12/22/21 .COMPLEX #28 caps gabapentin 100 mg capsule 200 mg PO BID #360 caps 10/25/21 12/22/21 morphine concentrate 100 mg/5 mL 5 - 20 mg (0.25 - 1 mL) PO Q1-4H 11/01/21 12/22/21 (20 mg/mL) oral solution PRN pain #30 mL torsemide 10 mg tablet 5 mg PO .EVERY OTHER DAY 12/22/21 12/22/21 Previous Rx's Medication Instructions Recorded budesonide-formoterol HFA 80 2 puff inhalation BID ##3 01/28/17 mcg-4.5 mcg/actuation aerosol inhaler (Symbicort) ezetimibe 10 mg tablet (Zetia) 10 mg PO DAILY #90 tab-caps 07/14/20 lancets (OneTouch UltraSoft #400 ea 11/03/20 Lancets) blood sugar diagnostic #400 ea 04/19/21 blood-glucose meter (OneTouch #1 ea 04/19/21 Ultra2 Meter kit) Air mattress #1 ea 06/15/21 acetaminophen 650 mg 1,300 mg PO Q12H #360 tabs 06/21/21 tablet,extended release (Tylenol Arthritis Pain) albuterol sulfate 90 mcg/actuation 1 - 2 puff inhalation Q4H PRN #18 06/21/21 aerosol inhaler (ProAir HFA) grams insulin degludec 200 unit/mL (3 40 unit (0.2 mL) subcut DAILY #12 06/21/21 mL) subcutaneous pen (Tresiba mL FlexTouch U-200 insulin) levothyroxine 50 mcg tablet 50 mcg PO DAILY #90 tab-caps 06/21/21 metoprolol succinate 25 mg 25 mg PO DAILY #90 tabs 06/21/21 tablet,extended release 24 hr pantoprazole 40 mg tablet,delayed 40 mg PO DAILY #90 tab-caps 06/21/21 release rosuvastatin 10 mg tablet 10 mg PO DAILY #90 tabs 06/21/21 pen needle, diabetic, safety 30 #100 ea 07/21/21 gauge x 1/3 (Novofine Autocover) finasteride 5 mg tablet (Proscar) 5 mg PO DAILY #90 tabs 09/06/21 torsemide 5 mg tablet 5 mg PO .Every other AM #45 tabs 09/06/21 semaglutide 0.25 mg or 0.5 mg (2 See Rx Instructions subcut QWEEK 10/12/21 mg/1.5 mL) subcutaneous pen #1.5 mL injector (Ozempic) sulfamethoxazole 800 1 tab PO Q12H #14 tabs 10/22/21 mg-trimethoprim 160 mg tablet (Bactrim DS) celecoxib 100 mg capsule See Rx Instructions .Route 10/23/21 .COMPLEX #28 caps gabapentin 100 mg capsule 200 mg PO BID #360 caps 10/25/21 morphine concentrate 100 mg/5 mL 5 - 20 mg (0.25 - 1 mL) PO Q1-4H 11/01/21 (20 mg/mL) oral solution PRN pain #30 mL Allergies Allergy/AdvReac Type Severity Reaction Status Date / Time bupropion HCl Allergy Severe seizures Verified 12/22/21 02:17 [From Wellbutrin] carvedilol [From Coreg] Allergy Mild Itching Verified 12/22/21 02:17 morphine AdvReac Unknown nausea Verified 12/22/21 02:17 General Stated Complaint: GenMedical DINESH: 3 Review of Systems All systems reviewed & are unremarkable except as noted in HPI and below PFSH All Active Problems (Updated 12/22/21 @ 06:09 by Jeremie Mcdonald DO) Pulmonary embolism (Chronic) AAA (abdominal aortic aneurysm) (Acute) Adult failure to thrive (Acute) Weakness (Acute) Slurred speech (Acute) Encounter for hospice care (Acute) Urge incontinence (Chronic) Declines RX briefs Self-care deficit (Acute) Impaired mobility and ADLs (Acute) Bedbound (Acute) gets up with WC to BR Recurrent falls (Chronic) Difficulty transferring from bed to wheelchair (Chronic) DME hospital bed has helped Difficulty transferring from toilet to wheelchair (Chronic) Steph investigating commode Wheelchair bound (Chronic) no falls since starting using WC permanent need severe diabetic nephropathy needs more adaptive equipment in the home Cognitive attention deficit (Chronic) needs multiple repetitions of information Diabetes type 2, uncontrolled (Chronic) though she has had education over the years, still seems not to understand carb counting ideally needs someone to educate son as he buys her food also needs hands-on teaching with nutrition labels, etc. 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) Goal A1c < 7.5% Schein, neuropathy; Charcot's foot 03/19/13 [employer] Spinal stenosis of lumbar region with neurogenic claudication (Chronic 12/08/13) 04/13/2013 MRI Lumbar Spine: Facet arthropathy, DJD, L4-5, L5-S1 central spinal and neural foraminal stenosis Neurosurgery referral, but not a surgical candidate [facility] chronic pain service Chronic Pain [facility] Pain Center consult 10/26/15 [facility] Spine [facility] consult 03/04/17 (Sanket Sawant MD) Other and unspecified hyperlipidemia (Chronic 08/14/12) Esophageal reflux disease (Chronic 07/24/11) UPPER GI SERIES 11/14/2012, MOD HIATAL HERNIA SEVERE GERD Coronary artery disease involving seneca coronary artery of seneca heart (Chronic) INFERIOR LA 1996, 100% RCA occlusion; large inf defect on perfusion scan, dr Fair Chronic kidney disease, stage III (moderate) (Chronic 08/14/12) 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 Ward Allergic rhinitis (Chronic 12/09/12) Abdominal aortic aneurysm (Chronic 11/27/12) Identified 10/31/12 CT abd-pelvis; 4cm; stable 4.1 cm 07/2014 CT, 4.3cm 11/2016, 5.5cm 03/04/17 ([facility]). 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 Guerra DJD of right shoulder (01/01/13) 12/2012 x-ray severe DJD glenohumeral joint Dr. Guerra; not a surgical candidate for replacement DNI (do not intubate) DNR (do not resuscitate) Episode of seizures in July 2012 Goals of care, counseling/discussion DNR/DNI COLST done wants to stay home may need new agent if/when Steph moves out of state as planned Incarcerated umbilical hernia (09/06/15) Iron deficiency anemia Nausea and vomiting (08/01/14) a. previous history of possible marijuana induced hyperemesis Olecranon bursitis, left elbow Resolved with appropriate DME Palliative care patient Perirectal abscess With associated hospitalization 2019 POLST (Physician Orders for Life-Sustaining Treatment) signed 06/01/20 RLS (restless legs syndrome) Tinea corporis Surgical History Appendectomy Childhood surgery, no date given by pt.HE Hemiarthroplasty (06/13/15) Dr Charlie Gallardo shoulder History of carpal tunnel release of both wrists (~05/2012) Hx of umbilical hernia repair (09/06/15) Incarcerated umbilical hernia repair (09/06/15) Tonsillectomy childhood surgery, no date given by pt.HE Family History Mother , at 73 yo from dementia Dementia Diabetes Stroke Blind Father , MVA (truck) accident at 45yo No problems noted. Sister Age: 61 Thyroid cancer Brother , from complications of diabetes age 60 Diabetes Brother Diabetes Heart disease Colon cancer Ulcerative colitis Sister Obesity Prediabetes Arthritis Son Substance abuse attends [facility] [place] [facility]; h/o heroin and other opioid addiction Other FH: mental illness Social History Smoking/Tobacco Use Status: Current every day Tobacco Type: cigarettes Tobacco: How many years used: 54 Quit status: not considering quitting Counseling given: counseling >3 minutes Smoking risk assessment performed?: Yes Alcohol Intake: former Drug use: Daily Substance use type: marijuana Counseling given: Yes Details: pt states she smokes marijuana on a daily basis Adopted: No Caregiver/Support person: Yes Foster care: No Household members: children Housing: house Number of Children: 1 number of grandchildren: 0 Communication Needs: Corrective Lenses Education Level: high school Details: didn't finish sophomore year Do you need help understanding health information?: Always 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; 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 Exam Narrative Exam Narrative: 1.Const: Patient demonstrates evidence of deconditioning. 2.Eyes: PERRL, no conjunctival injection, and symmetrical lids. 3.ENT: Atraumatic external nose and ears. Dry MM. Neck: Symmetric, trachea midline, No thyromegaly. 4.CVS: +S1/S2, No murmurs or gallops. Peripheral pulses 2+ and equal in all extremities. Brisk capillary refill in all extremities. 5.RESP: Unlabored respiratory effort. Clear to auscultation bilaterally. No wheezes rales or rhonchi 6.GI: Soft, nondistended, no pulsatile mass. Mild tenderness throughout, including in the lower abdominal region. 7.MSK: Normocephalic/Atraumatic, Extremities w/o deformity or ttp No cyanosis or clubbing, Normal movement of all extremities, left lower extremity demonstrates +1 pitting edema, no calf tenderness. Limited bedside ultrasound shows no evidence of large clot proximal to the knee through the femoral artery. 8.Skin: Warm, Dry. No rashes or lesions. Evaluation of the buttocks does not show any evidence of ulcer or abscess. 9.Neuro: sex therapist II-XII grossly intact. No clear evidence of facial droop, however the patient's speech is slightly slurred. Notable weakness of the lower extremities bilaterally, as well as what appears to be worsening chronic weakness of the upper extremities. Good documentation writer strength bilaterally. No clear evidence of dysdiadochokinesia or dysmetria. 10.Psych: (AAO) x3. Appropriate mood and affect Course Vital Signs Vital signs: Vital Signs Temperature 36.8 C 12/22/21 01:52 Pulse 84 12/22/21 01:52 Respiratory Rate 18 12/22/21 01:52 Blood Pressure 131/71 12/22/21 01:52 Pulse Oximetry 97 12/22/21 01:52 Temperature 36.8 C 12/22/21 01:52 Temperature Source Skin 12/22/21 01:52 Pulse 84 12/22/21 01:52 Respiratory Rate 18 12/22/21 01:57 Respiratory Effort 12/22/21 01:57 Respiratory Depth Normal 12/22/21 01:57 Respiratory Pattern Normal 12/22/21 01:57 Blood Pressure 131/71 12/22/21 01:52 Blood Pressure Position Supine 12/22/21 01:52 Pulse Oximetry 97 12/22/21 01:52 Oxygen Delivery Method Room Air 12/22/21 01:52 Oxygen Flow Rate 0 12/22/21 01:52
[2021-12-22 02:42] LABS: PTT Activated 24.5 sec (21.0-27.5); Prothrombin Time 9.6 sec (9.3-11.0)
[2021-12-22 02:50] LABS: ALT 22 U/L (14-59); AST 15 U/L (15-37); Albumin 3.2 g/dL (3.4-5.0); Alkaline Phosphatase 128 U/L (46-116); Anion Gap 7.2 mmol/L (3-11); BUN 20 mg/dL (7-18); Bilirubin, Total 0.3 mg/dL (0.2-1.0); CO2 28.8 mmol/L (21.0-32.0); CREATININE 1.1 mg/dL (0.55-1.02); Calcium 9.6 mg/dL (8.5-10.1); Chloride 104 mmol/L (98-107); Estimated GFR 49.54 (mL/min/1.73m2); Glucose 331 mg/dL (74-106); NT-proBNP 819 pg/mL (<300); Potassium 4.8 mmol/L (3.5-5.1); Sodium 140 mmol/L (136-145); Total Protein 6.8 g/dL (6.4-8.2); Troponin I < 50 ng/L (<or=60)
[2021-12-22 03:02] LABS: Bilirubin Negative (Negative); Blood Negative (Negative); Clarity Clear (Clear); Glucose 100 mg/dL (Negative); Ketones Negative (Negative); Leukocyte Esterase Negative (Negative); Nitrite Negative (Negative); Specific Gravity 1.025 (1.005-1.025); Urobilinogen 0.2 EU/dL (Up TO 0.2); pH 6.5 (5-8)
[2021-12-22 03:12] LABS: Bacteria Negative HPF (Negative); Crystals Negative HPF (Negative); Epithelial Cells Rare HPF (Negative); Mucus Trace (Negative); RBC Negative HPF (0-2); WBC 0-2 HPF (0-5)
[2021-12-22 03:13] LABS: C & S Indicated? No; Casts 10-20 Hyaline LPF (Negative)
[2021-12-22] MEDS: Omnipaque 350 MG/ML 100 ML BTL IJ (03:26)
--- NOTE | 2021-12-22 05:30 | DI.VRAD_ITS ---
PROCEDURE INFORMATION: Exam: CT Head Without Contrast Exam date and time: 12/22/2021 3:17 AM Age: 66 years old Clinical indication: Speech disturbance and other: Difficulty speaking and slurred speech TECHNIQUE: Imaging protocol: Computed tomography of the head without contrast. Radiation optimization: All CT scans at this facility use at least one of these dose optimization techniques: automated exposure control; mA and/or kV adjustment per patient size (includes targeted exams where dose is matched to clinical indication); or iterative reconstruction. COMPARISON: CT HEAD WO 10/22/2021 10:31 AM FINDINGS: Brain: There is no evidence of acute brain infarct, mass, shift of midline or parenchymal hemorrhage. Patchy periventricular white matter low attenuation present, a nonspecific finding but likely related to chronic small vessel ischemic change. No acute extra-axial fluid collection Cerebral ventricles: Moderate dilatation of the ventricular system and sulci diffusely, compatible with volume loss. Paranasal sinuses: Polyp or mucous retention cyst within the left maxillary sinus Mastoid air cells: Visualized mastoid air cells are well aerated. Bones/joints: Unremarkable. No acute fracture. Soft tissues: Unremarkable. IMPRESSION: 1. Chronic small vessel ischemic change 2. No evidence of acute infarct 3. If there is continued clinical concern, MRI imaging recommended Dictated and Authenticated by: Cesilia Melendez MD. Ordering:CHRISTOPHER Chao MD
--- NOTE | 2021-12-22 05:38 | DI.VRAD_ITS ---
Addendum created by Missael Nixon MD on 12/22/2021 5:40:26 AM EDT: THIS REPORT CONTAINS FINDINGS THAT MAY BE CRITICAL TO PATIENT CARE. The findings were verbally communicated via telephone conference with BLAIR WALLACE at 5:40 AM EDT on 12/22/2021. The findings were acknowledged and understood. Initial report created on 12/22/2021 5:37:50 AM EDT: PROCEDURE INFORMATION: Exam: CTA Chest With Contrast CTA Abdomen and Pelvis With Contrast Exam date and time: 12/22/2021 3:21 AM Age: 66 years old Clinical indication: Other: HX of large aneurysm, now worsening abd pain; Abdominal pain TECHNIQUE: Imaging protocol: Computed tomographic angiography of the chest with contrast. Computed tomographic angiography of the abdomen and pelvis with contrast. 3D rendering (Not supervised by radiologist): MIP and/or 3D reconstructed images were created by the technologist. Radiation optimization: All CT scans at this facility use at least one of these dose optimization techniques: automated exposure control; mA and/or kV adjustment per patient size (includes targeted exams where dose is matched to clinical indication); or iterative reconstruction. Contrast material: OMNI 350; Contrast volume: 100 ml; Contrast route: INTRAVENOUS (IV); COMPARISON: CT CHEST PE ABD PELVIS W 10/22/2021 10:36 AM FINDINGS: VASCULATURE: Pulmonary arteries: Filling defects in the intralobar artery on the right consistent with acute pulmonary emboli. Aorta: Moderate atherosclerotic changes of the thoracic aorta best seen at the level of the descending aorta where there is peripheral thrombus. No dissection flap or aneurysm. Borderline dilatation of the descending aorta to 3 cm can be followed with CT in 1 year. Disease extends into the neck vessels. Atherosclerotic changes of the abdominal aorta with peripheral thrombus at a maximum diameter of 5.3 cm seen at the infrarenal level. This is comparable to the prior. Again noted is contrast enhancement within the partially thrombosed lumen of the aorta extending up to the calcified wall. This is similar to the prior. Celiac trunk and mesenteric arteries: No significant narrowing of the SMA. The MARCY origin is not well visualized. Renal arteries: Mild renal artery. Narrowing on the right, minimal on the left. Right iliac arteries: Moderate disease of the iliac arterial tree on the right with aneurysmal dilatation of the common iliac arteries to 28 mm slightly enlarged relative to the prior. Left iliac arteries: Moderate disease of the iliac arterial tree on the left with dilatation of the common iliac artery to 28 mm also slightly enlarged relative to the previous. Veins: No visualized venous thrombus. CHEST: Lungs: Heterogeneous aeration of the lungs with dependent likely atelectatic changes and baseline pattern of mild hyperinflation change. Pleural spaces: Unremarkable. No pneumothorax. No pleural effusion. Heart: Moderate coronary artery disease. The heart is enlarged without significant pericardial or mediastinal fluid. The right ventricle is enlarged in comparison to the left with an RV/LV of less than 50 50.. Cardiomegaly better seen than on the prior. Diaphragm: Moderate hiatal hernia without obstruction. ABDOMEN AND PELVIS: Liver: Low density liver suggesting fatty infiltration wothout focal lesions or ductal dilitation. Conisder non-emergent follow-up with LFT values. Gallbladder and bile ducts: Collapsed gallbladder without stones or choledocholithiasis. Question high-density filling defect in the common bile duct on axial series 4, image 64 3 mm. Pancreas: Unremarkable. No mass. No ductal dilation. Spleen: Unremarkable. No splenomegaly. Adrenal glands: Unremarkable. No mass. Kidneys and ureters: Lobulated kidneys with volume loss and bilateral renal cysts not requiring follow-up. Stomach and bowel: Sigmoid diverticulosis with mural thickening and mild fatty stranding not quite as pronounced as on the previous. Residual recurrent diverticulitis changes not excluded. No bowel obstruction. Appendix: No evidence of appendicitis. Intraperitoneal space: Unremarkable. No free air. No significant fluid collection. Urinary bladder: Diminished mural thickening of the urinary bladder. Reproductive: Unremarkable as visualized. Lymph nodes: No lymphadenopathy. Bones/joints: Degenerative changes in the regional skeleton with scoliosis but no acute fracture. Degenerative changes most pronounced in the lumbar spine. Soft tissues: Mild fatty stranding along the anterior abdominal wall as before, possibly due to cellulitis. Extension posteriorly as before as well. Other findings: These were not seen previously. Mild narrowing just distal to the origin of the celiac axis. IMPRESSION: 1. Atherosclerotic changes of the aorta without acute dissection flap. Abnormal contrast within the thrombosed lumen of the aorta similar to the prior. 2. 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 3. Question residual recurrent sigmoid diverticulitis. 4. Diminished wall thickening of the urinary bladder. 5. Cardiomegaly which is better seen than on the prior. 6. Filling defects in the intralobar artery on the right consistent with acute pulmonary emboli. No convincing evidence of right heart strain. 7. Moderate hiatal hernia. 8. Question tiny filling defect in the common bile duct for which ultrasound follow-up can be utilized. Dictated and Authenticated by: Missael Nixon MD. Ordering:CHRISTOPHER Chao MD
[2021-12-22] MEDS: Enoxaparin 30 MG/0.3 ML SYR 90 MG SC (06:50)
[2021-12-22 07:51] LABS: Source Nasal/Nares
--- NOTE | 2021-12-22 08:54 | HPE_ITS ---
Date of service: 12/22/21 Time of Service: 06:20 Assessment and Plan Assessment and plan (1) Pulmonary embolism: Status: Chronic Assessment and plan: New finding on CT scan. On review of literature there is not a contraindication to treating this based on the AAA. Low molecular weight heparin initiated after discussion with patient. Troponin reassuring, no sign of CHF (2) Weakness: Status: Acute Assessment and plan: This appears subacute, and I do not note any focal neurologic deficits. This may be simply related to addition of morphine to a background of minimal function and general weakness chronically. She reports last morphine the day prior to presentation, however, and she does not have pinpoint pupils or respiratory depression to suggest swetha opioid toxicity. CT reassuring, I don't think MRI necessary at this point. Polypharmacy other than opioids and irregular adherence is also clearly an issues. Get UDS as reports only MJ but could have taken other sedating substances. Palliative care/hospice consulted, she will need additional care if she hopes to return home. (3) AAA (abdominal aortic aneurysm): Status: Acute Assessment and plan: Stable on CT. She continues to decline definitive therapy and understands this is immediately life-threatening. (4) Diabetes type 2, uncontrolled: Status: Chronic Assessment and plan: Sugars high currently. Add basal insulin to GLP-1 and ISS while here. Qualifiers: Glycemic state: with hyperglycemia Qualified Code(s): E11.65 - Type 2 diabetes mellitus with hyperglycemia (5) Nicotine dependence: Status: Chronic Assessment and plan: NRT while inpatient, not interested in quitting. Qualifiers: Nicotine product type: cigarettes Substance use status: uncomplicated Qualified Code(s): F17.210 - Nicotine dependence, cigarettes, uncomplicated (6) Chronic kidney disease, stage III (moderate): Status: Chronic Assessment and plan: stable baseline stage 3a CRI. Qualifiers: Chronic kidney disease stage 3 subtype: unspecified whether 3a or 3b Qualified Code(s): N18.30 - Chronic kidney disease, stage 3 unspecified (7) Cardiomyopathy: Status: Chronic Assessment and plan: No active CHF, so will not repeat ECHO. Last documented LVEF I could find was 35%. Qualifiers: Cardiomyopathy type: ischemic Qualified Code(s): I25.5 - Ischemic cardiomyopathy (8) Chronic back pain: Status: Chronic Assessment and plan: Continue home meds including morhpine prn and gabapentin, but watch for oversedtaion, keep dosing as low as we can while keeping her comfortable given hospice status. (9) Hypothyroidism: Status: Chronic Assessment and plan: normal TSH in October, but given reports of not taking meds, will repeat. (10) Aida infection: Status: Acute Assessment and plan: nystatin to intertriginous fungal infection (11) Urinary retention: Status: Acute Assessment and plan: Likely related to opioids, a/w constipation. Hartley placed, start bowel regimen History of Present Illness History of Present Illness Chief Complaint: weakness Narrative: 66 yo F with a complex medical history including smoking, CAD with HFrEF, chronic pain, poorly controlled type 2 DM, spinocerebellar ataxia, and 5.3cm AAA declining operative therapy who recently enrolled in hospice and started on opiate therapy who presented to the emergency room after calling EMS 5 times over the course of the day prior to admission for assists with minor falls. She states she has been getting weaker over the course of weeks. She denies a sudden event, but she states she started feeling more weak and slurring her speech in the past few days. No focal weakness, no trouble swallowing. No chest pain or SOB. She was seen 10/22/21 in the ED and AAA was noted. Transfer to [facility] was recommended but she left AMA. This decision led her to the hospice referral. Swelling of the right leg (error?) was noted at that visit and she was treated for cellulitis with TMP/SMX and Amox/clav. U/s was not available to assess for DVT at that point. Looking at the recent home visit note from 11/22, she describes taking her all of her medications irregularly. She was not taking opioids at that time. She uses daily MJ and cigarrettes but not other substances or alcohol. She has been minimally mobile for years, using hospital bed and wheelchair. Review of Systems Constitutional Constitutional: Denies anorexia, Denies chills, Denies fever(s), Reports lethargy and Denies weakness Eyes Eyes: Denies change in vision and Denies irritation ENT Ears, Nose, Mouth, and Throat: Denies dizziness, Denies nasal congestion, Denies nasal discharge and Denies sore throat Cardiovascular Cardiovascular: Reports system reviewed and no additional complaints, except as documented, Denies chest pain, Reports leg edema, Denies palpitations and Denies orthopnea Respiratory Respiratory: Denies cough, Denies excessive phlegm production and Denies wheezing Gastrointestinal Gastrointestinal: Reports abdominal pain (mild fullness), Denies melena, Reports constipation, Denies heartburn, Denies diarrhea and Reports nausea Genitourinary Genitourinary: Denies hematuria, Reports urinary frequency, Denies dysuria and Denies urinary incontinence Musculoskeletal Comments: chronic back pain Integumentary/Breasts Skin/Breast: Reports rash (under pannus) and Denies skin ulcer Neurologic Neurologic: Denies confusion, Denies dizziness, Denies memory loss, Denies sensory deficit and Denies weakness Psychiatric Psychiatric: Denies confusion, Denies depression, Denies memory loss and Denies mood swings Endocrine Endocrine: Denies palpitations Hematologic/Lymphatic Hematologic/Lymphatic: Denies easy bleeding Allergic/Immunologic Allergic/Immunologic: Denies wheezing PFSH All Active Problems (Updated 12/22/21 @ 09:28 by Kasi Barber) Urinary retention (Acute) Aida infection (Acute) Pulmonary embolism (Chronic) AAA (abdominal aortic aneurysm) (Acute) Adult failure to thrive (Acute) Weakness (Acute) Slurred speech (Acute) Encounter for hospice care (Acute) Urge incontinence (Chronic) Declines RX briefs Self-care deficit (Acute) Impaired mobility and ADLs (Acute) Bedbound (Acute) gets up with WC to BR Recurrent falls (Chronic) Difficulty transferring from bed to wheelchair (Chronic) DME hospital bed has helped Difficulty transferring from toilet to wheelchair (Chronic) Steph investigating commode Wheelchair bound (Chronic) no falls since starting using WC permanent need severe diabetic nephropathy needs more adaptive equipment in the home Cognitive attention deficit (Chronic) needs multiple repetitions of information Diabetes type 2, uncontrolled (Chronic) though she has had education over the years, still seems not to understand ca rb counting ideally needs someone to educate son as he buys her food also needs hands-on teaching with nutrition labels, etc. 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 Ambulates with cane when out; walker at home 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) Goal A1c < 7.5% Schein, neuropathy; Charcot's foot 03/19/13 [employer] Spinal stenosis of lumbar region with neurogenic claudication (Chronic 12/08/13) 04/13/2013 MRI Lumbar Spine: Facet arthropathy, DJD, L4-5, L5-S1 central spinal and neural foraminal stenosis Neurosurgery referral, but not a surgical candidate [facility] chronic pain service Chronic Pain [facility] Pain Center consult 10/26/15 [facility] Spine Center consult 03/04/17 (Sanket Sawant MD) Other and unspecified hyperlipidemia (Chronic 08/14/12) Esophageal reflux disease (Chronic 07/24/11) UPPER GI SERIES 11/14/2012, MOD HIATAL HERNIA SEVERE GERD Coronary artery disease involving [place] coronary artery of [place] heart (Chronic) INFERIOR ME 1996, 100% RCA occlusion; large inf defect on perfusion scan, dr Fair Chronic kidney disease, stage III (moderate) (Chronic 08/14/12) 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 Ward Allergic rhinitis (Chronic 12/09/12) Abdominal aortic aneurysm (Chronic 11/27/12) Identified 10/31/12 CT abd-pelvis; 4cm; stable 4.1 cm 07/2014 CT, 4.3cm 11/2016, 5.5cm 03/04/17 ([facility]). 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 Guerra DJD of right shoulder (01/01/13) 12/2012 x-ray severe DJD glenohumeral joint Dr. Guerra; not a surgical candidate for replacement DNI (do not intubate) DNR (do not resuscitate) Episode of seizures in July 2012 Goals of care, counseling/discussion DNR/DNI COLST done wants to stay home may need new agent if/when Steph moves out of state as planned Incarcerated umbilical hernia (09/06/15) Iron deficiency anemia Nausea and vomiting (08/01/14) a. previous history of possible marijuana induced hyperemesis Olecranon bursitis, left elbow Resolved with appropriate DME Palliative care patient Perirectal abscess With associated hospitalization 2019 POLST (Physician Orders for Life-Sustaining Treatment) signed 06/01/20 RLS (restless legs syndrome) Tinea corporis Surgical History Appendectomy Childhood surgery, no date given by pt.HE Hemiarthroplasty (06/13/15) Dr Charlie Gallardo shoulder History of carpal tunnel release of both wrists (~05/2012) Hx of umbilical hernia repair (09/06/15) Incarcerated umbilical hernia repair (09/06/15) Tonsillectomy childhood surgery, no date given by pt.HE Family History Mother , at 73 yo from dementia Dementia Diabetes Stroke Blind Father , MVA (truck) accident at 45yo No problems noted. Sister Age: 61 Thyroid cancer Brother , from complications of diabetes age 60 Diabetes Brother Diabetes Heart disease Colon cancer Ulcerative colitis Sister Obesity Prediabetes Arthritis Son Substance abuse attends [facility]; h/o heroin and other opioid addiction Other FH: mental illness Social History Smoking/Tobacco Use Status: Current every day Tobacco Type: cigarettes Tobacco: How many years used: 54 Quit status: not considering quitting Counseling given: counseling >3 minutes Smoking risk assessment performed?: Yes Alcohol Intake: former Drug use: Daily Substance use type: marijuana Counseling given: Yes Details: pt states she smokes marijuana on a daily basis Adopted: No Caregiver/Support person: Yes Foster care: No Household members: children Housing: house Number of Children: 1 number of grandchildren: 0 Communication Needs: Corrective Lenses Education Level: high school Details: didn't finish sophomore year Do you need help understanding health information?: Always 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; 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 Meds Allergies and Home Medications Allergies Allergy/AdvReac Type Severity Reaction Status Date / Time bupropion HCl Allergy Severe seizures Verified 12/22/21 02:17 [From Wellbutrin] carvedilol [From Coreg] Allergy Mild Itching Verified 12/22/21 02:17 morphine AdvReac Unknown nausea Verified 12/22/21 02:17 Home Medications Medication Instructions Recorded Confirmed Type budesonide-formoterol HFA 80 2 puff inhalation BID ##3 01/28/17 12/22/21 Rx mcg-4.5 mcg/actuation aerosol inhaler (Symbicort) ezetimibe 10 mg tablet (Zetia) 10 mg PO DAILY #90 tab-caps 07/14/20 11/01/21 Rx lancets (OneTouch UltraSoft #400 ea 11/03/20 11/01/21 Rx Lancets) blood sugar diagnostic #400 ea 04/19/21 11/01/21 Rx blood-glucose meter (OneTouch #1 ea 04/19/21 11/01/21 Rx Ultra2 Meter kit) Air mattress #1 ea 06/15/21 11/01/21 Rx acetaminophen 650 mg 1,300 mg PO Q12H #360 tabs 06/21/21 12/22/21 Rx tablet,extended release (Tylenol Arthritis Pain) albuterol sulfate 90 mcg/actuation 1 - 2 puff inhalation Q4H PRN #18 06/21/21 12/22/21 Rx aerosol inhaler (ProAir HFA) grams insulin degludec 200 unit/mL (3 40 unit (0.2 mL) subcut DAILY #12 06/21/21 12/22/21 Rx mL) subcutaneous pen (Tresiba mL FlexTouch U-200 insulin) levothyroxine 50 mcg tablet 50 mcg PO DAILY #90 tab-caps 06/21/21 12/22/21 Rx metoprolol succinate 25 mg 25 mg PO DAILY #90 tabs 06/21/21 12/22/21 Rx tablet,extended release 24 hr pantoprazole 40 mg tablet,delayed 40 mg PO DAILY #90 tab-caps 06/21/21 12/22/21 Rx release rosuvastatin 10 mg tablet 10 mg PO DAILY #90 tabs 06/21/21 12/22/21 Rx pen needle, diabetic, safety 30 #100 ea 07/21/21 11/01/21 Rx gauge x 1/3 (Novofine Autocover) finasteride 5 mg tablet (Proscar) 5 mg PO DAILY #90 tabs 09/06/21 12/22/21 Rx torsemide 5 mg tablet 5 mg PO .Every other AM #45 tabs 09/06/21 12/22/21 Rx semaglutide 0.25 mg or 0.5 mg (2 See Rx Instructions subcut QWEEK 10/12/21 11/01/21 Rx mg/1.5 mL) subcutaneous pen #1.5 mL injector (Ozempic) sulfamethoxazole 800 1 tab PO Q12H #14 tabs 10/22/21 11/01/21 Rx mg-trimethoprim 160 mg tablet (Bactrim DS) celecoxib 100 mg capsule See Rx Instructions .Route 10/23/21 12/22/21 Rx .COMPLEX #28 caps gabapentin 100 mg capsule 200 mg PO BID #360 caps 10/25/21 12/22/21 Rx morphine concentrate 100 mg/5 mL 5 - 20 mg (0.25 - 1 mL) PO Q1-4H 11/01/21 12/22/21 Rx (20 mg/mL) oral solution PRN pain #30 mL torsemide 10 mg tablet 5 mg PO .EVERY OTHER DAY 12/22/21 12/22/21 History Exam Narrative Exam Narrative: GEN: Alert and oriented x 3, but frequently closing her eyes, tired appearing. cooperative. No acute distress at rest. HEENT: Head atraumatic. Conjunctiva clear, no icterus. PEERL, EOMI. no rhinorrhea. MMM, OP benign. Neck is supple with no masses or lymphadenopathy, trachea midline LUNGS: CTAB with normal effort CV: RRR with no murmurs, gallops, or rubs. ABD: +BS, soft, NT/ND EXT: no cyanosis, clubbing. Left leg with 1-2+ edema vs trace right, slightly red up to thigh. no cords (no DVT on POCUS per Dr. Mcdonald) MSK: No joint redness or swelling NEURO: CN 2-12 grossly intact ex right eyelid ptosis, otherwise non focal. Moves 4 extremities with symmetrical 4/5 strength. Speech somewhat slurred but intelligible. SKIN: red rash under pannus. dry ulceration left popliteal fossa. No open wounds. PSYCH: normal mood and affect Results Imaging Abdominal ultrasound report/results: report reviewed (IMPRESSION: 1. Atherosclerotic changes of the aorta without acute dissection flap. Abnormal co ntrast within the thrombosed lumen of the aorta similar to the prior. 2. 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 3. Question residual recurrent sigmoid diverticulitis. 4. Di) Imaging Studies: CT HEAD: IMPRESSION: 1. Chronic small vessel ischemic change 2. No evidence of acute infarct 3. If there is continued clinical concern, MRI imaging recommended Labs Result diagrams: 12/22/21 02:24 12/22/21 02:24 Labs: Laboratory Results - last 24 hr 12/22/21 12/22/21 12/22/21 02:24 02:24 02:24 WBC 7.80 RBC 4.83 Hgb 12.2 Hct 40.1 MCV 83 MCH 25.3 L MCHC 30.4 L RDW 15.7 H Plt Count 199 MPV 11.2 H Immature Gran % 0.3 Neutrophils % 68.9 Lymphocytes % 18.3 Monocytes % 8.5 Eosinophils % 3.5 Basophils % 0.5 Nucleated RBC % 0.0 Absolute Neutrophils 5.38 Absolute Lymphocytes 1.43 Absolute Monocytes 0.66 Absolute Eosinophils 0.27 Absolute Basophils 0.04 PT 9.6 INR 1.0 APTT 24.5 Sodium 140 Potassium 4.8 Chloride 104 Carbon Dioxide 28.8 Anion Gap 7.2 BUN 20 H Creatinine 1.1 H Estimated GFR/1.73 m2 49.54 Glucose 331 H Calcium 9.6 Total Bilirubin 0.3 AST 15 ALT 22 Alkaline Phosphatase 128 H Troponin I < 50 NT-Pro-B Natriuret Pep 819 H Total Protein 6.8 Albumin 3.2 L Urine Color Urine Clarity Urine pH Ur Specific [place] Urine Protein Urine Ketones Urine Blood Urine Nitrite Urine Bilirubin Urine Urobilinogen Ur Leukocyte Esterase Urine RBC Urine WBC Ur Epithelial Cells Urine Crystals Urine Bacteria Urine Casts Urine Mucus Ur Culture Indicated? Urine Glucose COVID-19 Source 12/22/21 12/22/21 02:57 07:48 WBC RBC Hgb Hct MCV MCH MCHC RDW Plt Count MPV Immature Gran % Neutrophils % Lymphocytes % Monocytes % Eosinophils % Basophils % Nucleated RBC % Absolute Neutrophils Absolute Lymphocytes Absolute Monocytes Absolute Eosinophils Absolute Basophils PT INR APTT Sodium Potassium Chloride Carbon Dioxide Anion Gap BUN Creatinine Estimated GFR/1.73 m2 Glucose Calcium Total Bilirubin AST ALT Alkaline Phosphatase Troponin I NT-Pro-B Natriuret Pep Total Protein Albumin Urine Color Yellow Urine Clarity Clear Urine pH 6.5 Ur Specific [place] 1.025 Urine Protein 30 H Urine Ketones Negative Urine Blood Negative Urine Nitrite Negative Urine Bilirubin Negative Urine Urobilinogen 0.2 Ur Leukocyte Esterase Negative Urine RBC Negative Urine WBC 0-2 Ur Epithelial Cells Rare Urine Crystals Negative Urine Bacteria Negative Urine Casts 10-20 Hyaline Urine Mucus Trace Ur Culture Indicated? No Urine Glucose 100 COVID-19 Source Nasal/Nares Last Vital Signs Temp 36.8 C 12/22/21 08:41 Pulse 60 12/22/21 08:41 Resp 20 12/22/21 08:41 BP 128/75 12/22/21 08:41 Pulse Ox 97 12/22/21 08:41
[2021-12-22] MEDS: Acetaminophen 325 MG TAB 1300 MG PO ×2 (10:27→21:02)
[2021-12-22] MEDS: TORSEMIDE 10 MG TAB 5 MG PO (10:27)
[2021-12-22] MEDS: Insulin Glargine 300 UNITS/3 ML PEN 32 UNITS SC (10:28)
[2021-12-22 11:40] LABS: Hemoglobin A1C 11.4 % (<5.7)
[2021-12-22 11:49] LABS: TSH (W/Ref FT4) 2.23 uIU/mL (0.36-3.74)
[2021-12-22] MEDS: Insulin Aspart 300 UNITS/3 ML PEN SC ×2 (12:03→17:18)
[2021-12-22 12:16] LABS: COVID-19 PCR Negative (Negative)
--- NOTE | 2021-12-22 13:44 | NUR.NOTE ---
Nursing Note: pT rang her mercado to use the commode. 2 minutes later she rang again. TINNING EQUIPMENT TENDER tired to explain to pT that if she needs to use the commode she needs to try and not ring every 2 minutes to use commode because we have other pT that we need to attend to too. pT did not let ACE (Vannesa) finish what she was saying. pT started yelling at TINNING EQUIPMENT TENDER to get out of room, calling her names. TINNING EQUIPMENT TENDER (Vannesa) did leave the room. Wittness of this is TINNING EQUIPMENT TENDER (Neelam) and TINNING EQUIPMENT TENDER (Yanna).
--- NOTE | 2021-12-22 13:49 | NUR.NOTE ---
Nursing Note: Pt rang her call mercado. Yanna, Neelam and I went in. I tried to explain to the pt if she needed to use the commode we would help her, but that we do have other patients to assist and we are unable to keep coming in every 2 min or so since she has been ringing that often to get on and off the commode and not actually go. Pt interrupted me and yelled at me telling me I don't need to put up with your disrespect and I pay for your check. She also called me a Skinny bitch, multiple times. Pt stated to get out of her room and that she wanted to leave. I exited the room.
--- NOTE | 2021-12-22 13:54 | NUR.NOTE ---
Nursing Note: Patient stated she was going to leave AMA for the third time. I went in with the form and explained to her that she was leaving against Dr. stallworth. She told me if I kept the Bh (referring to a MANAGER FAMILY out of her room. She MIGHT stay. I reminded her that at this morning she threatened to Leave AMA if her jerez wasn't removed. The jerez was removed when she physically tried to self remove it At lunch she threatened to leave AMA again , because we were not helping her. I attempted to point out that we were trying to help her, however, she was refusing our interventions. I explained to her that we are trying to help her. I stated she can refuse the interventions offered. However she could not pick the staff that were attempting to help her. At that point she told me to leave the room, she was leaving and she would not sign anything. This was witnessed By Yanna Hernandez and she signed below me as a witness. A few minutes later while I was discussing the situation with the electrical unit rebuilder. A friend of the patient approached the nursing station requesting to talk to me. She was not on the patient's HIPPA. I told her I was sorry that I could not discuss the situation with her. She asked me if the patient gave verbal consent to discuss would that count. I did agree to approach her. Patient did give verbal consent . The friend stated she has no help at home, and she felt she would be neglectful if she took her home. I heard her state that to the patient. Patient became very irate, she was cussing and swearing , she self removed her IV access. Told her friend to leave. Told me that she was leaving regardless. I was able to get a dressing on the access that was removed. Friend apologized to me and stated she could not stay and left the unit. Patient was still attempting to gain transportation out of here. Charge nurse was made aware of everything
--- NOTE | 2021-12-22 14:24 | PCNE_ITS ---
Date of service: 12/22/21 Time of Service: 14:24 History of Present Illness Narrative: Lisa is a 66 year old female who has been on hospice for untreated AAA (5.3 cm) in the setting of multiple comorbidities. She is currently admitted to the hospital on observation after calling EMS multiple times overnight and revoking hospice. ED evaluation revealed bilateral PE and she was started on lovenox. Palliative was consulted to discuss goals of care. Nursing reports that Lisa is now stating that she wants to leave the hospital. She pulled out her IV and demanded that staff remove the jerez catheter or she would remove it herself. iLsa states that her son lives with her but he works during the day. States she can call her neighbor, Viri, if she needs something. She refuses to go to SNF. She wants to go home on hospice but hospice is not comfortable admitting them back to their service due to her lack of caregivers and safety concerns. Unable to complete full visit due to Lisa continuously telling me to leave the room. Assessment and Plan Assessment and plan (1) AAA (abdominal aortic aneurysm): Status: Acute (2) Adult failure to thrive: Status: Acute (3) Weakness: Status: Acute (4) Impaired mobility and ADLs: Status: Acute (5) Diabetes type 2, uncontrolled: Status: Chronic Qualifiers: Glycemic state: with hyperglycemia Qualified Code(s): E11.65 - Type 2 diabetes mellitus with hyperglycemia (6) Spinal stenosis of lumbar region with neurogenic claudication: Status: Chronic (7) Coronary artery disease involving [place] coronary artery of [place] heart: Status: Chronic (8) Chronic kidney disease, stage III (moderate): Status: Chronic Qualifiers: Chronic kidney disease stage 3 subtype: unspecified whether 3a or 3b Qualified Code(s): N18.30 - Chronic kidney disease, stage 3 unspecified (9) Cardiomyopathy: Status: Chronic Qualifiers: Cardiomyopathy type: ischemic Qualified Code(s): I25.5 - Ischemic cardiomyopathy (10) Pulmonary embolism: Status: Chronic (11) Palliative care patient: Assessment and plan: Lisa is a 66 year old female who has been on hospice for untreated AAA (5.3 cm) in the setting of multiple comorbidities. She is currently admitted to the hospital on observation after calling EMS multiple times overnight and revoking hospice. ED evaluation revealed bilateral PE and she was started on lovenox. Palliative was consulted to discuss goals of care. She has had several falls at home. She reports that her son lives with her and helps her but he is not home throughout the day. Carmel participated in a limited visit before telling me to leave the room repeatedly. She is clear that she does not want to go to SNF. She wants to go home on hospice. Hospice is not comfortable admitting them back to their service due to her lack of caregivers and safety concerns. Unable to complete full visit due to Lisa continuously telling me to leave the room. She is a DNR/DNI. Discussed with hospitalist. Review of Systems Narrative: unable, pt refused to participate in ROS. PFSH All Active Problems (Updated 12/22/21 @ 09:28 by Kasi Barber) Urinary retention (Acute) Aida infection (Acute) Pulmonary embolism (Chronic) AAA (abdominal aortic aneurysm) (Acute) Adult failure to thrive (Acute) Weakness (Acute) Slurred speech (Acute) Encounter for hospice care (Acute) Urge incontinence (Chronic) Declines RX briefs Self-care deficit (Acute) Impaired mobility and ADLs (Acute) Bedbound (Acute) gets up with WC to BR Recurrent falls (Chronic) Difficulty transferring from bed to wheelchair (Chronic) DME hospital bed has helped Difficulty transferring from toilet to wheelchair (Chronic) Steph investigating commode Wheelchair bound (Chronic) no falls since starting using WC permanent need severe diabetic nephropathy needs more adaptive equipment in the home Cognitive attention deficit (Chronic) needs multiple repetitions of information Diabetes type 2, uncontrolled (Chronic) though she has had education over the years, still seems not to understand carb counting ideally needs someone to educate son as he buys her food also needs hands-on teaching with nutrition labels, etc. 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 Ambulates with cane when out; walker at home 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) Goal A1c < 7.5% Schein, neuropathy; Charcot's foot 03/19/13 [employer] Spinal stenosis of lumbar region with neurogenic claudication (Chronic 12/08/13) 04/13/2013 MRI Lumbar Spine: Facet arthropathy, DJD, L4-5, L5-S1 central spinal and neural foraminal stenosis Neurosurgery referral, but not a surgical candidate [facility] chronic pain service Chronic Pain [facility] Pain Center consult 10/26/15 [facility] consult 03/04/17 (Sanket Sawant MD) Other and unspecified hyperlipidemia (Chronic 08/14/12) Esophageal reflux disease (Chronic 07/24/11) UPPER GI SERIES 11/14/2012, MOD HIATAL HERNIA SEVERE GERD Coronary artery disease involving [place] coronary artery of [place] heart (Chron ic) INFERIOR IN 1996, 100% RCA occlusion; large inf defect on perfusion scan, dr Fair Chronic kidney disease, stage III (moderate) (Chronic 08/14/12) 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 Ward Allergic rhinitis (Chronic 12/09/12) Abdominal aortic aneurysm (Chronic 11/27/12) Identified 10/31/12 CT abd-pelvis; 4cm; stable 4.1 cm 07/2014 CT, 4.3cm 11/2016, 5.5cm 03/04/17 ([facility] 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 Guerra DJD of right shoulder (01/01/13) 12/2012 x-ray severe DJD glenohumeral joint Dr. Guerra; not a surgical candidate for replacement DNI (do not intubate) DNR (do not resuscitate) Episode of seizures in July 2012 Goals of care, counseling/discussion DNR/DNI COLST done wants to stay home may need new agent if/when Steph moves out of state as planned Incarcerated umbilical hernia (09/06/15) Iron deficiency anemia Nausea and vomiting (08/01/14) a. previous history of possible marijuana induced hyperemesis Olecranon bursitis, left elbow Resolved with appropriate DME Palliative care patient Perirectal abscess With associated hospitalization 2019 POLST (Physician Orders for Life-Sustaining Treatment) signed 06/01/20 RLS (restless legs syndrome) Tinea corporis Surgical History Appendectomy Childhood surgery, no date given by pt.HE Hemiarthroplasty (06/13/15) Dr Charlie Gallardo shoulder History of carpal tunnel release of both wrists (~05/2012) Hx of umbilical hernia repair (09/06/15) Incarcerated umbilical hernia repair (09/06/15) Tonsillectomy childhood surgery, no date given by pt.HE Family History Mother , at 73 yo from dementia Dementia Diabetes Stroke Blind Father , MVA (truck) accident at 45yo No problems noted. Sister Age: 61 Thyroid cancer Brother , from complications of diabetes age 60 Diabetes Brother Diabetes Heart disease Colon cancer Ulcerative colitis Sister Obesity Prediabetes Arthritis Son Substance abuse attends [facility]; h/o heroin and other opioid addiction Other FH: mental illness Social History Smoking/Tobacco Use Status: Current every day Tobacco Type: cigarettes Tobacco: How many years used: 54 Quit status: not considering quitting Counseling given: counseling >3 minutes Smoking risk assessment performed?: Yes Alcohol Intake: former Drug use: Daily Substance use type: marijuana Counseling given: Yes Details: pt states she smokes marijuana on a daily basis Adopted: No Caregiver/Support person: Yes Foster care: No Household members: children Housing: house Number of Children: 1 number of grandchildren: 0 Communication Needs: Corrective Lenses Education Level: high school Details: didn't finish sophomore year Do you need help understanding health information?: Always 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; 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 Exam Narrative Exam Narrative: General: appears older than stated age, laying in bed in a dark room, with the lights off and shades closed. Repeatedly telling me to leave the room. HEENT: normocephalic, atraumatic. Neck: supple. Respiratory: respirations appear even and unlabored, wearing O2. Results Last Vital Signs Temp 36.7 C 12/22/21 09:37 Pulse 80 12/22/21 09:37 Resp 20 12/22/21 09:37 BP 128/75 12/22/21 09:37 Pulse Ox 97 12/22/21 11:24 Labs Result diagrams: 12/22/21 02:24 12/22/21 02:24 Labs: Laboratory Results - last 24 hr 12/22/21 12/22/21 12/22/21 02:24 02:24 02:24 WBC 7.80 RBC 4.83 Hgb 12.2 Hct 40.1 MCV 83 MCH 25.3 L MCHC 30.4 L RDW 15.7 H Plt Count 199 MPV 11.2 H Immature Gran % 0.3 Neutrophils % 68.9 Lymphocytes % 18.3 Monocytes % 8.5 Eosinophils % 3.5 Basophils % 0.5 Nucleated RBC % 0.0 Absolute Neutrophils 5.38 Absolute Lymphocytes 1.43 Absolute Monocytes 0.66 Absolute Eosinophils 0.27 Absolute Basophils 0.04 PT 9.6 INR 1.0 APTT 24.5 Sodium 140 Potassium 4.8 Chloride 104 Carbon Dioxide 28.8 Anion Gap 7.2 BUN 20 H Creatinine 1.1 H Estimated GFR/1.73 m2 49.54 Glucose 331 H Hemoglobin A1c Calcium 9.6 Total Bilirubin 0.3 AST 15 ALT 22 Alkaline Phosphatase 128 H Troponin I < 50 NT-Pro-B Natriuret Pep 819 H Total Protein 6.8 Albumin 3.2 L TSH Urine Color Urine Clarity Urine pH Ur Specific Jay Urine Protein Urine Ketones Urine Blood Urine Nitrite Urine Bilirubin Urine Urobilinogen Ur Leukocyte Esterase Urine RBC Urine WBC Ur Epithelial Cells Urine Crystals Urine Bacteria Urine Casts Urine Mucus Ur Culture Indicated? Urine Glucose COVID-19 Source SARS-CoV-2 (PCR) 12/22/21 12/22/21 12/22/21 02:24 02:24 02:57 WBC RBC Hgb Hct MCV MCH MCHC RDW Plt Count MPV Immature Gran % Neutrophils % Lymphocytes % Monocytes % Eosinophils % Basophils % Nucleated RBC % Absolute Neutrophils Absolute Lymphocytes Absolute Monocytes Absolute Eosinophils Absolute Basophils PT INR APTT Sodium Potassium Chloride Carbon Dioxide Anion Gap BUN Creatinine Estimated GFR/1.73 m2 Glucose Hemoglobin A1c 11.4 H Calcium Total Bilirubin AST ALT Alkaline Phosphatase Troponin I NT-Pro-B Natriuret Pep Total Protein Albumin TSH 2.23 Urine Color Yellow Urine Clarity Clear Urine pH 6.5 Ur Specific Jay 1.025 Urine Protein 30 H Urine Ketones Negative Urine Blood Negative Urine Nitrite Negative Urine Bilirubin Negative Urine Urobilinogen 0.2 Ur Leukocyte Esterase Negative Urine RBC Negative Urine WBC 0-2 Ur Epithelial Cells Rare Urine Crystals Negative Urine Bacteria Negative Urine Casts 10-20 Hyaline Urine Mucus Trace Ur Culture Indicated? No Urine Glucose 100 COVID-19 Source SARS-CoV-2 (PCR) 12/22/21 07:48 WBC RBC Hgb Hct MCV MCH MCHC RDW Plt Count MPV Immature Gran % Neutrophils % Lymphocytes % Monocytes % Eosinophils % Basophils % Nucleated RBC % Absolute Neutrophils Absolute Lymphocytes Absolute Monocytes Absolute Eosinophils Absolute Basophils PT INR APTT Sodium Potassium Chloride Carbon Dioxide Anion Gap BUN Creatinine Estimated GFR/1.73 m2 Glucose Hemoglobin A1c Calcium Total Bilirubin AST ALT Alkaline Phosphatase Troponin I NT-Pro-B Natriuret Pep Total Protein Albumin TSH Urine Color Urine Clarity Urine pH Ur Specific Jay Urine Protein Urine Ketones Urine Blood Urine Nitrite Urine Bilirubin Urine Urobilinogen Ur Leukocyte Esterase Urine RBC Urine WBC Ur Epithelial Cells Urine Crystals Urine Bacteria Urine Casts Urine Mucus Ur Culture Indicated? Urine Glucose COVID-19 Source Nasal/Nares SARS-CoV-2 (PCR) Negative
[2021-12-22 15:31] LABS: *AMPHETAMINES SCREEN URINE Negative (Negative); *BARBITURATES SCREEN URINE Negative (Negative); *BENZODIAZEPINES SCREEN URINE Negative (Negative); Cannabinoids THC Positive (Negative); Cocaine Screen,Urine Negative (Negative); METHADONE URINE SCREEN Negative (Negative); OPIATES URINE SCREEN Positive (Negative)
--- NOTE | 2021-12-22 15:31 | INITIAL_ITS ---
- If Service Date Differs Date of service: 12/22/21 Time of Service: 15:31 Care Management Initial Assess REASON FOR HOSPITALIZATION:: Pulmonary Embolism PAST MEDICAL HISTORY/PAST SURGICAL HISTORY:: Medical History . Anaerobic bacteremia. Bacteremia due to Gram-positive bacteria. Calculus of kidney and ureter. Carpal tunnel syndrome (08/14/12). resolved s/p b/l release. Cellulitis of foot. Depressive disorder (08/14/12). DJD of left shoulder (01/01/13). Dr. Guerra. DJD of right shoulder (01/01/13). 12/2012 x-ray severe DJD glenohumeral joint. Dr. Guerra; not a surgical candidate for replacement. DNI (do not intubate). DNR (do not resuscitate). Episode of seizures in July 2012. Goals of care, counseling/discussion. DNR/DNI. COLST done. wants to stay home. may need new agent if/when Steph moves out of state as planned. Incarcerated umbilical hernia (09/06/15). Iron deficiency anemia. Nausea and vomiting (08/01/14). a. previous history of possible marijuana induced hyperemesis. Olecranon bursitis, left elbow. Resolved with appropriate DME. Palliative care patient. Perirectal abscess. With associated hospitalization 2019. POLST (Physician Orders for Life- Sustaining Treatment). signed 06/01/20. RLS (restless legs syndrome). Tinea corporis. Surgical History . Appendectomy. Childhood surgery, no date given by pt.HE. Hemiarthroplasty (06/13/15). Dr Guerra. R shoulder. History of carpal tunnel release of both wrists (~05/2012). Hx of umbilical hernia repair (09/06/15). Incarcerated umbilical hernia repair (09/06/15). Tonsillectomy. childhood surgery, no date given by pt.HE PREVIOUS FUNCTIONAL STATUS/SOCIAL/FAMILY SUPPORTS:: Carmel lives in [facility] with her son Ethan. She has been wheelchair bound for over a year and requires help with her ADL's. She has a caregiver through [employer] Sat- Fri. Her son is supportive and helps her around the house. Her sister Ainsley is also supportive of her needs. Carmel uses [facility], however lately Ainsley has been providing the majority of her transportation. Pt also shares that Ainsley is in the process of moving to [place]. CURRENT FUNCTIONAL STATUS:: Carmel was laying in bed when CM met with her. She was alert and oriented. She is currently on IV antibiotics and blood cultures are pending. Carmel shared with CM that she is going home when she's discharged from the hospital and not interested in going to a SNF for short term rehab. CM will continue to support discharge planning needs. ADVANCE DIRECTIVES:: None, pt is not interested at this time. Has patient been provided with info about the portal/API?: Yes Did the patient sign up for the portal?: Yes CODE STATUS:: DNR/DNI INSURANCE COVERAGE / FINANCIAL ISSUES:: Medicaid. Medicare CURRENT HOME/COMMUNITY SERVICES/EQUIPMENT:: Home care services through [facility]? Reportedly revoked hospice. ?[facility] RN/PT services. Wheelchair, bedside commode, grab bars, tub seat, ramp, glucometer. [facility]. PRIMARY CARE PHYSICIAN:: Mai Castelan POTENTIAL DISCHARGE NEEDS:: [facility] W/[facility] van. Follow up appointments PATIENT/FAMILY EDUCATION NEEDS:: Review discharge instructions, limitations and plan to follow up with community providers and discharge plan of care as prescribed. [employer]. ANTICIPATED BARRIERS TO DISCHARGE:: None identified at this time. TRANSPORTATION:: Via [facility] W[facility] van PLAN:: Carmel refuses to go to SNF. Per Palliative she reportedly wants to go home on hospice but hospice is not comfortable admitting back on their service due to her lack of caregivers and safety concerns.
[2021-12-22 15:42] LABS: Tricyclic Antidepressants Negative (Negative)
--- NOTE | 2021-12-22 16:44 | PHA.REVIEW ---
Pharmacy Admission Review - Admission Clinical Review (Last Reviewed 12/22/21 @ 09:06 by Kasi Barber) Urinary retention (Acute) Aida infection (Acute) AAA (abdominal aortic aneurysm) (Acute) Adult failure to thrive (Acute) Weakness (Acute) Slurred speech (Acute) Impaired mobility and ADLs (Acute) bupropion HCl [From Wellbutrin] Allergy (Severe, Verified 12/22/21 02:17) seizures carvedilol [From Coreg] Allergy (Mild, Verified 12/22/21 02:17) Itching morphine Adverse Reaction (Unknown, Verified 12/22/21 02:17) nausea Resuscitation Status DNR/DNI Height 5 ft 7 in Weight 93.6 kg - Renal Dosing Renal Dosing: BUN 20 mg/dL (7-18) H 12/22/21 02:24 Creatinine 1.1 mg/dL (0.55-1.02) H 12/22/21 02:24 Medications needing adjustments: N/A (crcl = 58) - Anticoagulation Anticoagulation: Hgb 12.2 g/dL (11.2-15.7) 12/22/21 02:24 Hct 40.1 % (36.0-46.0) 12/22/21 02:24 Plt Count 199 10^3/uL (130-400) 12/22/21 02:24 INR 1.0 (0.9-1.1) 12/22/21 02:24 Creatinine 1.1 mg/dL (0.55-1.02) H 12/22/21 02:24 DVT Prophylaxis: Reviewed Therapeutic Anticoagulation: Reviewed Medications: Enoxaparin (lovenox 90 mg (1 mg/kg) BID for bilateral PE) - Opiate Usage Evaluate Pain Scale/Pains Meds: Reviewed Scheduled Bowel Reg ordered if on Opiates?: Yes (scheduled senna/docusate) - Relevant Labs Sodium 140 mmol/L (136-145) 12/22/21 02:24 Potassium 4.8 mmol/L (3.5-5.1) 12/22/21 02:24 Chloride 104 mmol/L (98-107) 12/22/21 02:24 Electrolytes, C-Reactive P, ESR: Reviewed - DM Control DM Control: Glucose 331 mg/dL (74-106) H 12/22/21 02:24 Hemoglobin A1c 11.4 % (<5.7) H 12/22/21 02:24 Finger Stick Blood Glucose 250 Finger Stick Blood Glucose 250 Finger Stick Blood Glucose 250 Insulin Dosing: Reviewed (insulin Aspart AC sliding scale ordered + lantus 32 units daily (sub for Tresiba 40 units). Pt has ozempic on home med list tho when RN asked her if she could have it brought in she stated she hasn't used it in a while (last fill 10/12/21) - put on hold. A1c = 11.4) - Heart Failure/LA Heart Failure/LA: Troponin I < 50 ng/L (<or=60) 12/22/21 02:24 NT-Pro-B Natriuret Pep 819 pg/mL (<300) H 12/22/21 02:24 EF%, ERNIE's, B-Blockers, Diuretics: Reviewed - BP Control BP Control: Blood Pressure 120/75 Blood Pressure 128/75 Blood Pressure 128/75 Blood Pressure 122/60 Blood Pressure 124/75 Blood Pressure 137/60 Blood Pressure 145/66 Blood Pressure 133/57 Blood Pressure 108/77 Blood Pressure 117/53 If elevated: N/A - Qtc Review If Elevated: N/A - IV to PO Switch IV Medications: N/A - Home Meds Home Med List reviewed: Reviewed Relevent Home Meds Not ordered & why?: Tresiba sub to Lantus (with 20% reduction), ozempic on hold (pt likely hasn't used in over a month) - Current meds Current Medication Order Review: Reviewed
--- NOTE | 2021-12-22 17:08 | CHAPLAIN ---
When I visited Carmel this afternoon she asked for help getting home. I let her know that I wasn't involved in that process, but would let Care Management know about her interest in getting home. When I checked back with Carmel, she said her sister in law was here and would be helping her and thanked me for checking in on her.
[2021-12-22] MEDS: Gabapentin 100 MG CAP 200 MG PO (20:53)
[2021-12-22] MEDS: Sennosides/Docusate Sodium TAB 1 TAB PO (20:53)
[2021-12-22] MEDS: Enoxaparin 100 MG/ML SYR 90 MG SC (20:54)
[2021-12-22] MEDS: Budesonide/Formoterol 80/4.5 6.9 GM 60 PUFF INH IH (21:02)
[2021-12-22] MEDS: Melatonin 3 MG TAB 9 MG PO (21:59)
[2021-12-23 02:53] VITALS: BP 114/69; PULSE 72; RESP 19; TEMP 36.5; O2SAT 97
--- NOTE | 2021-12-23 03:26 | NUR.NOTE ---
Nursing Note: 16 Hartley placed using sterile technique tonight after multiple attempts to void, with no results and retention shown on bladder scan. Patient was having urgency and frequency concerns, most likely from attempting to self remove Hartley with balloon inflated on 12/22/21. Hartley is now draining clear, yellow urine. No further urinary complaints.
[2021-12-23 06:15] VITALS: BP 123/71; PULSE 71; RESP 18; TEMP 36.1; O2SAT 94
[2021-12-23] MEDS: Budesonide/Formoterol 80/4.5 6.9 GM 60 PUFF INH IH (08:21)
[2021-12-23] MEDS: Enoxaparin 100 MG/ML SYR 90 MG SC (08:25)
[2021-12-23] MEDS: Rosuvastatin 5 MG TAB 10 MG PO (08:27)
[2021-12-23] MEDS: Gabapentin 100 MG CAP 200 MG PO (08:28)
[2021-12-23] MEDS: Finasteride 5 MG TAB PO (08:28)
[2021-12-23] MEDS: Metoprolol CR 25 MG TABCR PO (08:28)
[2021-12-23] MEDS: Ezetimibe 10 MG TAB PO (08:29)
[2021-12-23] MEDS: Pantoprazole 40 MG TABCR PO (08:29)
[2021-12-23] MEDS: Celecoxib 100 MG CAP PO (08:29)
[2021-12-23] MEDS: Sennosides/Docusate Sodium TAB 1 TAB PO (08:30)
[2021-12-23] MEDS: Senna TAB 1 TAB PO (08:30)
[2021-12-23] MEDS: Insulin Aspart 300 UNITS/3 ML PEN SC ×2 (08:30→12:12)
[2021-12-23] MEDS: Polyethylene Glycol 3350 17 GM PACKET PO (08:40)
[2021-12-23] MEDS: Insulin Glargine 300 UNITS/3 ML PEN 32 UNITS SC (08:41)
[2021-12-23 09:01] LABS: HCT 35.2 % (36.0-46.0); MCH 25.6 pg (27.0-33.0); MCHC 31.3 % (32.0-36.0); MCV 82 fL (80-95); MPV 11.6 fL (8.0-11.0); Platelet Count 174 10^3/uL (130-400); RDW 15.6 % (11.7-14.6); RDW-SD 46.3 fL; WBC 7.05 10^3/uL (4.4-10.8)
[2021-12-23] MEDS: Acetaminophen 325 MG TAB 1300 MG PO (11:01)
[2021-12-23] MEDS: Nicotine 21 MG/24 HR PATCH TD (11:06)
[2021-12-23 12:07] VITALS: BP 137/73; PULSE 69; RESP 19; TEMP 36.6; O2SAT 94
--- NOTE | 2021-12-23 12:14 | DSE_ITS ---
Date of service: 12/23/21 Time of Service: 12:14 DS: Diagnosis Discharge Diagnosis (1) AAA (abdominal aortic aneurysm): Status: Acute (2) Adult failure to thrive: Status: Acute (3) Weakness: Status: Acute (4) Impaired mobility and ADLs: Status: Acute (5) Diabetes type 2, uncontrolled: Status: Chronic (6) Spinal stenosis of lumbar region with neurogenic claudication: Status: Chronic (7) Coronary artery disease involving [place] coronary artery of [place] heart: Status: Chronic (8) Chronic kidney disease, stage III (moderate): Status: Chronic (9) Cardiomyopathy: Status: Chronic (10) Pulmonary embolism: Status: Chronic Discharge Plan Disposition Patient Disposition: HOME W/HOME HEALTH SERVICE Condition: Fair Discharge Details Reason For Visit: Pulmonary Embolism Admit Date/Time: 12/22/21 07:26 Admit Provider: Missael Mosley Attending Provider: Missael Mosley Primary Care Provider: Mai Castelan Hospital Course Hospital Course: This 66 yo female patient with a complex medical history including smoking, CAD with HFrEF, chronic pain, poorly controlled type 2 DM, spinocerebellar ataxia, and 5.3cm AAA, declining operative therapy, who recently enrolled in hospice and started on opiate therapy, presented to the [facility] emergency department 12/22/2021, after calling EMS 5 times over the course of the day prior to admission for assists with minor falls.? She stated she had been getting weaker over the course of weeks.? She denied a sudden event, but she states she started feeling weaker and slurring her speech in the past few days.? No focal weakness, no trouble swallowing.? No chest pain or SOB. She was seen 10/22/21 in the ED and AAA was noted.? [place] [facility] [place] but she left [place].? This decision led her to the hospice referral.? Swelling of the right (? error - it is her left leg now that is swollen) was noted at that visit and she was treated for cellulitis with TMP/SMX and Amox/clav.? U/S was not available to assess for DVT at that point. Looking at the recent home visit note from 11/22, she describes taking her all of her medications irregularly.? She was not taking opioids at that time.? She uses daily MJ and cigarettes but no other substances or alcohol. She has been minimally mobile for years, using hospital bed and wheelchair. ? Lisa had a palliative care consult while here.? She refuses SNF, states she would like to go home back on hospice, but has revoked hospice services recently and continues to want treatment.? She lives alone and she does not have any care givers available for her.? She is being discharged from the hospital with a referral for home health services.? Home Meds and New Rx's Prescriptions: New Eliquis 5 mg tablet 5 mg PO BID Qty: 30 0RF fentanyl 12 mcg/hr patch 72 hour 1 patch transdermal Q72H Qty: 5 0RF Continued torsemide 5 mg tablet 5 mg PO .Every other AM Qty: 45 3RF finasteride [Proscar] 5 mg tablet 5 mg PO DAILY Qty: 90 3RF morphine concentrate 100 mg/5 mL (20 mg/mL) solution 5 - 20 mg PO Q1-4H MDD 480 PRN (Reason: pain) Qty: 30 0RF gabapentin 100 mg capsule 200 mg PO BID MDD 800mg Qty: 360 3RF Rx Instructions: Chronic pain; dose increase 10/25/21 (DME) Air mattress See Rx Instructions .Route .MEDSUPPLY Qty: 1 0RF Rx Instructions: As directed budesonide-formoterol [Symbicort] 10.2 GM HFA aerosol inhaler 2 puff Inhalation BID Qty: 3 3RF Hold Instructions: Home Medication placed on hold at Doctor's office Label Comments: 04/01/17 Patient unsure of last dose. Maybe last Thur, but patient is noncompliant with medications CDG ezetimibe [Zetia] 10 mg tablet 10 mg PO DAILY Qty: 90 3RF Hold Instructions: Home Medication placed on hold at Doctor's office Rx Instructions: to lower cholesterol (DME) lancets [OneTouch UltraSoft Lancets] Misc See Dose Instructions .ROUTE .MEDSUPPLY Qty: 400 3RF Dose Instruction: As directed Rx Instructions: E11.4 tests QID to keep A1C below 8 (DME) blood sugar diagnostic Strip See Dose Instructions .ROUTE .MEDSUPPLY Qty: 400 3RF Dose Instruction: As directed Rx Instructions: One Touch Ultra,E 11.40 tests QID to keep A1C below 8 (DME) blood-glucose meter [OneTouch Ultra2 Meter] Kit See Rx Instructions .ROUTE .MEDSUPPLY Qty: 1 0RF Rx Instructions: to check BS qid for DM E11.9 management to keep A1c under 8 acetaminophen [Tylenol Arthritis Pain] 650 mg tablet extended release 1,300 mg PO Q12H Qty: 360 3RF Rx Instructions: Chronic pain--do not exceed 4G in 24 hours tylenol albuterol sulfate [ProAir HFA] 90 mcg/actuation HFA aerosol inhaler 1 - 2 puff Inhalation Q4H PRN Qty: 18 3RF Tresiba FlexTouch U-200 200 unit/mL (3 mL) insulin pen 40 unit subcut DAILY MDD 80 units Qty: 12 11RF Rx Instructions: Uncontrolled T2DM (stop Lantus) levothyroxine 50 mcg tablet 50 mcg PO DAILY Qty: 90 3RF metoprolol succinate 25 mg tablet extended release 24 hr 25 mg PO DAILY Qty: 90 3RF pantoprazole 40 mg tablet,delayed release (DR/EC) 40 mg PO DAILY Qty: 90 3RF rosuvastatin 10 mg tablet 10 mg PO DAILY Qty: 90 3RF Rx Instructions: Stop Simvastatin & take this instead for diabetes & cholesterol, 06/21/21 (DME) Novofine Autocover 30 gauge x 1/3 needle See Rx Instructions .ROUTE .MEDSUPPLY Qty: 100 3RF Rx Instructions: For DM E11.40 to maintain A1C <8, monitoring daily Ozempic 0.25 mg or 0.5 mg(2 mg/1.5 mL) pen injector See Rx Instructions subcut QWEEK Qty: 1.5 1RF Hold Instructions: Home Medication placed on hold at Doctor's office Rx Instructions: 0.25mg x4 weeks, then may increase to 0.5mg weekly for diabetes subcutaneously every week; sulfamethoxazole-trimethoprim [Bactrim DS] 800-160 mg tablet 1 tab PO Q12H Qty: 14 0RF Discontinued celecoxib 100 mg capsule See Rx Instructions .ROUTE .COMPLEX Qty: 28 6RF Dose Instruction: TAKE 1 CAPSULE BY MOUTH DAILY FOR CHRONIC PAIN, SPINAL STENOSIS Rx Instructions: TAKE 1 CAPSULE BY MOUTH DAILY FOR CHRONIC PAIN, SPINAL STENOSIS Discharge Instructions Instructions: Fentanyl (Absorbed through the skin), Apixaban (By mouth), Pulmonary Embolism (DC) Additional Instructions: Return to emergency department if: * Signs of bleeding like throwing up or coughing up blood; vomit that looks like coffee grounds; blood in the urine; black, red, or tarry stools; bleeding from the gums; abnormal vaginal bleeding; bruises without a cause or that get bigge r; or bleeding you cannot stop. * ??Weakness on 1 side of the body, trouble speaking or thinking, change in balance, drooping on one side of the face, or blurred eyesight. * ??Dizziness or passing out. * ??Feeling confused. * ??SeveremHeadache. * ??Chest pain or pressure. Home health will call you with an appointment time for next week. Take eliquis twice a day - a prescription has been sent to [facility] Keep the fentanyl patch on for 72 hours, it will help with pain. A prescription has been sent to your usual pharmacy. Stand Alone Forms: Nursing Discharge Form Referrals: Mai Castelan FORMING PROCESS WORKER [Primary Care Provider] - (Call Saturday for an appointment in 1-2 weeks.) Activity:: Activity as Tolerated Equipment/Supplies:: Walker Diet:: Carb Counting Discharge Orders Discharge Orders: Discharge Order (Routine); Ordered 12/23/21 Ordered By: Nicole Graham Discharge Data Discharge Date/Time-TO BE ENTERED AT DEPARTURE: 12/23/21 14:23 DS: Summary Time Spent with Patient providing and/or coordinating discharge services: Less than 30 minutes Status at Discharge Functional status at discharge: uses cane/walker Overall status at discharge: patient is progressing back to baseline Mental Status: mental status grossly normal Speech and Movement: speech and movement normal Mood: congruent mood Affect: normal affect Exam Narrative Exam Narrative: 1.Const: Patient demonstrates evidence of deconditioning. 2.Eyes: PERRL, no conjunctival injection, and symmetrical lids. 3.ENT: Atraumatic external nose and ears. Dry MM. Neck: Symmetric, trachea midline, No thyromegaly. 4.CVS: +S1/S2, No murmurs or gallops. Peripheral pulses 2+ and equal in all extremities. Brisk capillary refill in all extremities. 5.RESP: Unlabored respiratory effort. Clear to auscultation bilaterally. No wheezes rales or rhonchi 6.GI: Soft, nondistended, no pulsatile mass. Mild tenderness throughout, including in the lower abdominal region. 7.MSK: Normocephalic/Atraumatic, Extremities w/o deformity or ttp No cyanosis or clubbing, Normal movement of all extremities, left lower extremity demonstrates +1 pitting edema, no calf tenderness. Left leg larger than right from toes to groin, no redness 8.Skin: Warm, Dry. No rashes or lesions. Evaluation of the buttocks does not show any evidence of ulcer or abscess. 9.Neuro: plugger worker II-XII grossly intact. No clear evidence of facial droop, however the patient's speech is slightly slurred. Notable weakness of the lower extremities bilaterally, as well as what appears to be worsening chronic weakness of the upper extremities. Good oral therapist strength bilaterally. No clear evidence of dysdiadochokinesia or dysmetria. 10.Psych: (AAO) x3. Appropriate mood and affect Psych Mental Status: mental status grossly normal Speech and Movement: speech and movement normal Mood: congruent mood Affect: normal affect DS: Data Vitals/I&O Vitals and I&O: Vital Signs Temperature 36.6 C 12/23/21 12:07 Temperature Source Tympanic 12/23/21 12:07 Pulse 69 12/23/21 12:07 Pulse Rhythm Regular 12/23/21 09:00 Pulse 65 12/22/21 08:01 Respiratory Rate 19 12/23/21 12:07 Respiratory Effort 12/23/21 09:00 Respiratory Depth Normal 12/23/21 09:00 Respiratory Pattern Normal 12/23/21 09:00 Blood Pressure 137/73 12/23/21 12:07 Blood Pressure Mean 76 12/22/21 08:01 Blood Pressure Position Supine 12/22/21 01:52 Pulse Oximetry 94 12/23/21 12:07 Oxygen Delivery Method Room Air 12/23/21 12:07 Oxygen Flow Rate 0 12/23/21 12:07 Pain Level 6 12/23/21 11:01 Comment 12/22/21 20:30 Intake & Output 12/22/21 12/23/21 12/23/21 23:59 11:59 23:59 Intake Total 480 / 480 Output Total 950 / 2150 1550 / 1550 Balance -470 / -1670 -1550 / -1550 Weight 93.1 kg Intake: Oral 480 / 480 Output: Urine 950 / 2150 1550 / 1550 Stool 0 / 0 Other: Urine Color Light Chichi Yellow Urine Appearance Clear Clear Urine Odor None Foul Comment Yeasty Odor from Groin and Skin folds. denies pain or discomfort Stool Size Large Stool Characteristics Formed Hard Brown Voiding Methods Bedside Commode Bedside Commode Data Completed and Pending Labs on day of discharge: Labs from last 24 hours 12/23/21 12/22/21 12/22/21 09:00 14:25 07:48 WBC 7.05 RBC 4.30 Hgb 11.0 L Hct 35.2 L MCV 82 MCH 25.6 L MCHC 31.3 L RDW 15.6 H Plt Count 174 MPV 11.6 H Urine Opiates Screen Positive A Urine Methadone Screen Negative Ur Barbiturates Screen Negative Ur Tricyclics Screen Negative Ur Amphetamines Screen Negative U Benzodiazepines Scrn Negative Urine Cocaine Screen Negative Ur THC Screen Positive A SARS-CoV-2 (PCR) Negative PFSH All Active Problems Urinary retention (Acute) Aida infection (Acute) Pulmonary embolism (Chronic) AAA (abdominal aortic aneurysm) (Acute) Adult failure to thrive (Acute) Weakness (Acute) Slurred speech (Acute) Encounter for hospice care (Acute) Urge incontinence (Chronic) Declines RX briefs Self-care deficit (Acute) Impaired mobility and ADLs (Acute) Bedbound (Acute) gets up with WC to BR Recurrent falls (Chronic) Difficulty transferring from bed to wheelchair (Chronic) DME hospital bed has helped Difficulty transferring from toilet to wheelchair (Chronic) Steph investigating commode Wheelchair bound (Chronic) no falls since starting using WC permanent need severe diabetic nephropathy needs more adaptive equipment in the home Cognitive attention deficit (Chronic) needs multiple repetitions of information Diabetes type 2, uncontrolled (Chronic) though she has had education over the years, still seems not to understand carb counting ideally needs someone to educate son as he buys her food also needs hands-on teaching with nutrition labels, etc. 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 Ambulates with cane when out; walker at home 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) Goal A1c < 7.5% Schein, neuropathy; Charcot's foot 03/19/13 [employer] Spinal stenosis of lumbar region with neurogenic claudication (Chronic 12/08/13) 04/13/2013 MRI Lumbar Spine: Facet arthropathy, DJD, L4-5, L5-S1 central spinal and neural foraminal stenosis Neurosurgery referral, but not a surgical candidate [facility] chronic pain service Chronic Pain [facility] Pain Center consult 10/26/15 [facility] [place] 03/04/17 (Sanket Sawant MD) Other and unspecified hyperlipidemia (Chronic 08/14/12) Esophageal reflux disease (Chronic 07/24/11) UPPER GI SERIES 11/14/2012, MOD HIATAL HERNIA SEVERE GERD Coronary artery disease involving [place] coronary artery of [place] heart (Chronic) INFERIOR [place] 1996, 100% RCA occlusion; large inf defect on perfusion scan, dr Fair Chronic kidney disease, stage III (moderate) (Chronic 08/14/12) 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 Ward Allergic rhinitis (Chronic 12/09/12) Abdominal aortic aneurysm (Chronic 11/27/12) Identified 10/31/12 CT abd-pelvis; 4cm; stable 4.1 cm 07/2014 CT, 4.3cm 11/2016, 5.5cm 03/04/17 [place] [place] 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 Guerra DJD of right shoulder (01/01/13) 12/2012 x-ray severe DJD glenohumeral joint Dr. Guerra; not a surgical candidate for replacement DNI (do not intubate) DNR (do not resuscitate) Episode of seizures in July 2012 Goals of care, counseling/discussion DNR/DNI COLST done wants to stay home may need new agent if/when Steph moves out of state as planned Incarcerated umbilical hernia (09/06/15) Iron deficiency anemia Nausea and vomiting (08/01/14) a. previous history of possible marijuana induced hyperemesis Olecranon bursitis, left elbow Resolved with appropriate DME Palliative care patient Perirectal abscess With associated hospitalization 2020 POLST (Physician Orders for Life-Sustaining Treatment) signed 06/01/20 RLS (restless legs syndrome) Tinea corporis Surgical History Appendectomy Childhood surgery, no date given by pt.HE Hemiarthroplasty (06/13/15) Dr Charlie Gallardo shoulder History of carpal tunnel release of both wrists (~05/2012) Hx of umbilical hernia repair (09/06/15) Incarcerated umbilical hernia repair (09/06/15) Tonsillectomy childhood surgery, no date given by pt.HE Family History Mother , at 73 yo from dementia Dementia Diabetes Stroke Blind Father , MVA (truck) accident at 45yo No problems noted. Sister Age: 61 Thyroid cancer Brother , from complications of diabetes age 60 Diabetes Brother Diabetes Heart disease Colon cancer Ulcerative colitis Sister Obesity Prediabetes Arthritis Son Substance abuse attends [facility] clinic; h/o heroin and other opioid addiction Other FH: mental illness Social History Smoking/Tobacco Use Status: Current every day Tobacco Type: cigarettes Tobacco: How many years used: 54 Quit status: not considering quitting Counseling given: counseling >3 minutes Smoking risk assessment performed?: Yes Alcohol Intake: former Drug use: Daily Substance use type: marijuana Counseling given: Yes Details: pt states she smokes marijuana on a daily basis Adopted: No Caregiver/Support person: Yes Foster care: No Household members: children Housing: house Number of Children: 1 number of grandchildren: 0 Communication Needs: Corrective Lenses Education Level: high school Details: didn't finish sophomore year Do you need help understanding health information?: Always 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; 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
--- NOTE | 2021-12-23 13:50 | CMDISCH_ITS ---
- If Service Date Differs Date of service: 12/23/21 Time of Service: 13:50 LACE Index Scoring Tool - Questions: Length of Stay (in days): 1 Acuity (Admit via E.D.?): Yes Comorbidities: Diabetes w/o Complication, Chronic Pulmonary Disease E.D. Visits: 5 - Answers: Total Score: 11 Risk of Readmission: High Risk Care Management Discharge Reason for Hospitalization: Pulmonary Embolism Discharge Plan: Carmel will return home with new orders through [facility]. She will transport via [facility] W/C Van, coordinated by this inspector automatic typewriter. Patient/Family Education Needs: Review discharge instructions, discuss Ask Me T hree. RADHA reviewed planning with Carmel with DAVID Rivera, present. Carmel was only willing to return home, she was agreeable to home health services. RADHA also reviewed plan with Carmel Choi's sister. Services Needed at Discharge: Home Health Care Services ([facility]), Transportation (W/C Van: [facility] )
[2021-12-23] MEDS: fentaNYL 12 MCG PATCH TD (14:18)
--- NOTE | 2021-12-23 16:46 | PDOC.HHF2F_ITS ---
Home Health Certification Home Health Certification: 1. Encounter Date and Reason I certify that Carmel Carvalho was seen by Nicole Graham NP on 12/23/21 and that I had a [id number] encounter with this patient that meets the physician face to face encounter requirements. 2. Clinical Findings Supporting Skilled Need and Homebound Status I certify that home health services are medically necessary, include either intermittent half-way and/or physical/speech therapy, and that this patient is homebound in that absences from the home require considerable and taxing effort and are infrequent or of short duration, or are attributable to the need to receive medical care. [X] (a) Attached documentation from encounter provides clinical findings supporting skilled need and homebound status (including what assistance patient requires to leave the home). The encounter with the patient was in whole, or in part, for the following medical condition, which is the primary reason for home health care:? Pulmonary Embolism [facility]:? Skilled observation and assessment of the patient's condition, including vital signs, pulmonary and cardiac assessment, intervention and evaluation of disease process; pain monitoring, monitor medication adverse effects, educate patient on taking apixaban, side effects and bleeding precautions. Physical Therapy: Gait training, ADL training, Safety Training, Therapeutic exercises for strengthening Speech Therapy: Homebound:the client cannot go out without supportive devices such as crutches, canes, wheelchairs, and walkers; cannot go out without the use of special transportation; and cannot go out without the assistance of another person. 3. Certification and Authentication I certify that I composed the above information based on my clinical judgment relating to this patient's medical condition and, if applicable, clinical findings communicated to me by the NPP or inpatient physician who performed the Home Health Referral. All further orders will be obtained through Mai Castelan APRN
== END 2021-12-23 14:23 | disposition home health service (06) ==
LOC: ER 07:48 → MS 08:40
PROVIDERS: Family Medicine; Admitting Provider Family Medicine; Emergency Provider Student in an Organized Health Care Education/Training Program; PCP Nurse Practitioner Adult Health; Visit Provider Family Medicine
DX: I26.99 Other pulmonary embolism without acute cor pulmonale (principal); R53.1 Weakness; I71.4 Abdominal aortic aneurysm, without rupture; E11.65 Type 2 diabetes mellitus with hyperglycemia; F17.210 Nicotine dependence, cigarettes, uncomplicated; E11.22 Type 2 diabetes mellitus with diabetic chronic kidney disease; I25.5 Ischemic cardiomyopathy; Z20.822 Contact with and (suspected) exposure to COVID-19; I70.0 Atherosclerosis of aorta; E66.9 Obesity, unspecified; I25.10 Atherosclerotic heart disease of native coronary artery without angina pectoris; J44.9 Chronic obstructive pulmonary disease, unspecified; R60.0 Localized edema; R10.84 Generalized abdominal pain; R47.81 Slurred speech; I72.3 Aneurysm of iliac artery; Z79.4 Long term (current) use of insulin; N39.41 Urge incontinence; R29.6 Repeated falls; Z91.14 Patient's other noncompliance with medication regimen; I27.20 Pulmonary hypertension, unspecified; G11.19 Other early-onset cerebellar ataxia; E11.40 Type 2 diabetes mellitus with diabetic neuropathy, unspecified; I42.9 Cardiomyopathy, unspecified; E03.9 Hypothyroidism, unspecified; F12.20 Cannabis dependence, uncomplicated; N18.31 Chronic kidney disease, stage 3a; G89.29 Other chronic pain; M54.9 Dorsalgia, unspecified; B37.2 Candidiasis of skin and nail; R33.9 Retention of urine, unspecified; I50.20 Unspecified systolic (congestive) heart failure; I13.0 Hypertensive heart and chronic kidney disease with heart failure and stage 1 through stage 4 chronic kidney disease, or unspecified chronic kidney disease; Z74.09 Other reduced mobility; Z66 Do not resuscitate; R62.7 Adult failure to thrive; Z68.32 Body mass index [BMI] 32.0-32.9, adult; M48.062 Spinal stenosis, lumbar region with neurogenic claudication
CPT/HCPCS: 36415; 36416; 51702; 71275; 80053; 80307; 82962; 85027; 87635; 93005; 94640; 96372; 99285; 70450; 74174; 81003; 81015; 83036; 83880; 84443; 84484; 85025; 85610; 85730; 93010; 99217; G0378; J1650; J3490

== ENCOUNTER 2021-12-23 19:07 | Emergency (ER) | payer OTHER, MEDICARE, MEDICAID, SELFPAY ==
--- NOTE | 2021-12-23 19:00 | DI.RAD_ITS ---
Exam(s) XR HIP LT COMPLETE AP PELVIS EXAM: XR HIP LT COMPLETE AP PELVIS INDICATION: fall/pain. COMPARISON: No exams were available for comparison TECHNIQUE: 2D digital imaging was performed. Three views. FINDINGS: No fracture or dislocation is seen. Hip joint spaces are well maintained. There is acetabular spurr ing. Vascular calcifications are seen. Sacrum is mostly obscured by overlying bowel gas and stool. IMPRESSION: No acute abnormality. DATA REPOSITORY: RADIATION DOSE DELIVERED:
[2021-12-23 19:03] VITALS: BP 104/68; PULSE 104; RESP 16; TEMP 36.4; O2SAT 94
--- NOTE | 2021-12-23 19:15 | ED.GENADUL_ITS ---
Discharge Plan Disposition Patient Disposition: HOME Condition: Stable Discharge Details Clinical Impression: Left hip pain Primary Care Provider: Mai Castelan ED Provider: Jose A Lazaro Home Meds and New Rx's Prescriptions: Continued torsemide 5 mg tablet 5 mg PO .Every other AM Qty: 45 3RF finasteride [Proscar] 5 mg tablet 5 mg PO DAILY Qty: 90 3RF morphine concentrate 100 mg/5 mL (20 mg/mL) solution 5 - 20 mg PO Q1-4H MDD 480 PRN (Reason: pain) Qty: 30 0RF gabapentin 100 mg capsule 200 mg PO BID MDD 800mg Qty: 360 3RF Rx Instructions: Chronic pain; dose increase 10/25/21 (DME) Air mattress See Rx Instructions .Route .MEDSUPPLY Qty: 1 0RF Rx Instructions: As directed budesonide-formoterol [Symbicort] 10.2 GM HFA aerosol inhaler 2 puff Inhalation BID Qty: 3 3RF Hold Instructions: Home Medication placed on hold at Doctor's office Label Comments: 04/01/17 Patient unsure of last dose. Maybe last Thur, but patient is noncompliant with medications CDG ezetimibe [Zetia] 10 mg tablet 10 mg PO DAILY Qty: 90 3RF Hold Instructions: Home Medication placed on hold at Doctor's office Rx Instructions: to lower cholesterol (DME) lancets [OneTouch UltraSoft Lancets] Misc See Dose Instructions .ROUTE .MEDSUPPLY Qty: 400 3RF Dose Instruction: As directed Rx Instructions: E11.4 tests QID to keep A1C below 8 (DME) blood sugar diagnostic Strip See Dose Instructions .ROUTE .MEDSUPPLY Qty: 400 3RF Dose Instruction: As directed Rx Instructions: One Touch Ultra,E 11.40 tests QID to keep A1C below 8 (DME) blood-glucose meter [OneTouch Ultra2 Meter] Kit See Rx Instructions .ROUTE .MEDSUPPLY Qty: 1 0RF Rx Instructions: to check BS qid for DM E11.9 management to keep A1c under 8 acetaminophen [Tylenol Arthritis Pain] 650 mg tablet extended release 1,300 mg PO Q12H Qty: 360 3RF Rx Instructions: Chronic pain--do not exceed 4G in 24 hours tylenol albuterol sulfate [ProAir HFA] 90 mcg/actuation HFA aerosol inhaler 1 - 2 puff Inhalation Q4H PRN Qty: 18 3RF Tresiba FlexTouch U-200 200 unit/mL (3 mL) insulin pen 40 unit subcut DAILY MDD 80 units Qty: 12 11RF Rx Instructions: Uncontrolled T2DM (stop Lantus) levothyroxine 50 mcg tablet 50 mcg PO DAILY Qty: 90 3RF metoprolol succinate 25 mg tablet extended release 24 hr 25 mg PO DAILY Qty: 90 3RF pantoprazole 40 mg tablet,delayed release (DR/EC) 40 mg PO DAILY Qty: 90 3RF rosuvastatin 10 mg tablet 10 mg PO DAILY Qty: 90 3RF Rx Instructions: Stop Simvastatin & take this instead for diabetes & cholesterol, 06/21/21 (DME) Novofine Autocover 30 gauge x 1/3 needle See Rx Instructions .ROUTE .MEDSUPPLY Qty: 100 3RF Rx Instructions: For DM E11.40 to maintain A1C <8, monitoring daily Ozempic 0.25 mg or 0.5 mg(2 mg/1.5 mL) pen injector See Rx Instructions subcut QWEEK Qty: 1.5 1RF Hold Instructions: Home Medication placed on hold at Doctor's office Rx Instructions: 0.25mg x4 weeks, then may increase to 0.5mg weekly for diabetes subcutaneously every week; Eliquis 5 mg tablet 5 mg PO BID Qty: 30 0RF fentanyl 12 mcg/hr patch 72 hour 1 patch transdermal Q72H Qty: 5 0RF sulfamethoxazole-trimethoprim [Bactrim DS] 800-160 mg tablet 1 tab PO Q12H Qty: 14 0RF Discharge Instructions Instructions: Hip Pain (ED) Additional Instructions: X-ray is unremarkable. I am concerned about your ability to take care of yourself at home but you are adamant that you do not want additional help here in the ER and are requesting discharge. At your request we have contacted [facility] to bring you home and are trying to arrange a lift assist once you get home. Please watch for new or worsening symptoms and return to the ER for any concerns. Please contact your primary care provider first thing Saturday morning to discuss your recent hospitalization, return visit to the ER, ongoing symptoms, need for outpatient reevaluation. I strongly recommend that you consider a group home facility Medical Decision Making This is a 66-year-old female with no significant past medical history who was discharged from our facility earlier today, went home attempted to ambulate without any assistance and subsequently slid to the floor injuring her left hip. She denies striking her head. She denies any other injuries. She states that she laid on the ground for approximately 1 hour or so, unable to get her son to help her up so EMS was subsequently called. At this time she only wants an x- ray of her hip to be sure it is not broken, does not want additional work-up, and then wants to be discharged home. She is awake, alert, of sound mind and can make this decision however I did explain to her that we could certainly obtain other imaging especially given she is anticoagulated and given she was on the ground for at least an hour week obtain additional laboratory values. Patient declines. X-ray of left hip and pelvis unremarkable per radiology. Discussed findings with patient. I discussed my concerns for the patient as I do not know that she can safely care for herself. She is adamant that she is going home and states this is not a present, you cannot keep me here. I recommended that she attempt to ambulate here in the ER using a walker, she declines, would like to be transported home in a wheelchair, into her vehicle, and then wheelchair into her home. In the meantime [facility] was contacted and now awaiting a call to see if they can provide transportation. Patient states that if she can go outside and have a couple of cigarettes then she might be willing to stay in the hospital. I explained to her that this would not be an option, this is a smoke-free campus, but I could offer her nicotine patch. She declines and requests once again to go home. I once again expressed my concern that she is a fall risk, unable to care for herself properly, and believes that she does require additional assistance. She understands my concerns and is appreciative of this but is still adamant that she will be going home this evening. Again, she is of sound mind and can make this decision. [facility] states they will have a ride for her at 2130. We then attempted to contact the local fire department to help with a lift assist to get the patient safely in her home. At this time they declined and recommended contacting [facility]. [facility] was contacted and declined. The mainframe systems administrator on-call for the hospitalist was then contacted, made aware of the situation, and will begin to look for a solution. In the meantime we were able to contact the fire department once again and they are able to meet the patient at her home to help get into the house. Subsequently I was contacted by the mainframe systems administrator on-call once again. She was able to speak with [facility] who is now agreeable to help the patient in her house if her son is not home and she cannot get in safely. I will place the patient on the resident care director list to hopefully pool together community resources and see what additional solutions he can find for this very difficult situation. Standard discharge and return precautions were provided. Patient understands, is agreeable to this plan, and has no additional questions or concerns upon discharge. This documentation was generated using [employer] system, please disregard any oddities of phrase or misspellings. Medical Records Medical records reviewed: Yes I reviewed the patient's medical records. Imaging Data Radiologic Study: Attestation: I personally reviewed and interpreted this imaging study as follows: Imaging: X-Ray Radiologist's impression: PROCEDURE INFORMATION: Exam: XR Left Hip Exam date and time: 12/23/2021 19:41 Age: 66 years old Clinical indication: Hip pain; Left hip; Patient HX: Fall/pain TECHNIQUE: Imaging protocol: Radiologic exam of the Left hip. Views: 2 or 3 views hip with pelvis when performed. COMPARISON: CT THORAX ABD/PEL CTA 12/22/2021 03:21 FINDINGS: Bones/joints: No acute fracture or subluxation. Soft tissues: Unremarkable. Vasculature: Atherosclerosis. IMPRESSION: No acute bony pathology. Acute. HPI General Mode of arrival: EMS . Date/Time Provider Initiated Documentation: 12/23/21 19:12 . Limitations to Documentation: no limitations . Information obtained by: patient and EMS . HPI Narrative: This is a 66-year-old female with a past medical history of AAA, PE, adult fa ilure to thrive, generalized weakness, palliative care patient, recurrent falls, diabetes, obesity, hypertension, chronic renal disease, cardiomyopathy, COPD, who was actually discharged from our facility earlier today presenting to the ER now for evaluation of left hip pain status post a fall. Patient states that she typically gets around using a wheelchair but she was attempting to transfer on her feet without using her cane or walker when she slid to the ground injuring her left hip. She reports mild pain, requesting x-ray to be sure it is not broken. She states that she was unable to get up off the ground herself, could not get her son to help her, so subsequently EMS was contacted. Patient denies striking her head, headache, LOC, neck pain, chest pain, shortness of breath abdominal pain, nausea, vomiting, numbness, tingling, weakness. Denies any distracting injuries. Patient makes it very clear that she will not be staying in the hospital, and states get me an x-ray and get me out of here. Patient states that she was likely on the ground for an hour or so. Related Data Home Medications Medication Instructions Recorded Confirmed budesonide-formoterol HFA 80 2 puff inhalation BID ##3 01/28/17 12/22/21 mcg-4.5 mcg/actuation aerosol inhaler (Symbicort) ezetimibe 10 mg tablet (Zetia) 10 mg PO DAILY #90 tab-caps 07/14/20 11/01/21 lancets (OneTouch UltraSoft #400 ea 11/03/20 11/01/21 Lancets) blood sugar diagnostic #400 ea 04/19/21 11/01/21 blood-glucose meter (OneTouch #1 ea 04/19/21 11/01/21 Ultra2 Meter kit) Air mattress #1 ea 06/15/21 11/01/21 acetaminophen 650 mg 1,300 mg PO Q12H #360 tabs 06/21/21 12/22/21 tablet,extended release (Tylenol Arthritis Pain) albuterol sulfate 90 mcg/actuation 1 - 2 puff inhalation Q4H PRN #18 06/21/21 12/22/21 aerosol inhaler (ProAir HFA) grams insulin degludec 200 unit/mL (3 40 unit (0.2 mL) subcut DAILY #12 06/21/21 12/22/21 mL) subcutaneous pen (Tresiba mL FlexTouch U-200 insulin) levothyroxine 50 mcg tablet 50 mcg PO DAILY #90 tab-caps 06/21/21 12/22/21 metoprolol succinate 25 mg 25 mg PO DAILY #90 tabs 06/21/21 12/22/21 tablet,extended release 24 hr pantoprazole 40 mg tablet,delayed 40 mg PO DAILY #90 tab-caps 06/21/21 12/22/21 release rosuvastatin 10 mg tablet 10 mg PO DAILY #90 tabs 06/21/21 12/22/21 pen needle, diabetic, safety 30 #100 ea 07/21/21 11/01/21 gauge x 1/3 (Novofine Autocover) finasteride 5 mg tablet (Proscar) 5 mg PO DAILY #90 tabs 09/06/21 12/22/21 torsemide 5 mg tablet 5 mg PO .Every other AM #45 tabs 09/06/21 12/22/21 semaglutide 0.25 mg or 0.5 mg (2 See Rx Instructions subcut QWEEK 10/12/21 11/01/21 mg/1.5 mL) subcutaneous pen #1.5 mL injector (Ozempic) sulfamethoxazole 800 1 tab PO Q12H #14 tabs 10/22/21 11/01/21 mg-trimethoprim 160 mg tablet (Bactrim DS) gabapentin 100 mg capsule 200 mg PO BID #360 caps 10/25/21 12/22/21 morphine concentrate 100 mg/5 mL 5 - 20 mg (0.25 - 1 mL) PO Q1-4H 11/01/21 12/22/21 (20 mg/mL) oral solution PRN pain #30 mL apixaban 5 mg tablet (Eliquis) 5 mg PO BID #30 tabs 12/23/21 fentanyl 12 mcg/hr transdermal 1 patch transdermal Q72H #5 ea 12/23/21 patch Previous Rx's Medication Instructions Recorded budesonide-formoterol HFA 80 2 puff inhalation BID ##3 01/28/17 mcg-4.5 mcg/actuation aerosol inhaler (Symbicort) ezetimibe 10 mg tablet (Zetia) 10 mg PO DAILY #90 tab-caps 07/14/20 lancets (OneTouch UltraSoft #400 ea 11/03/20 Lancets) blood sugar diagnostic #400 ea 04/19/21 blood-glucose meter (LuminateTouch #1 ea 04/19/21 Ultra2 Meter kit) Air mattress #1 ea 06/15/21 acetaminophen 650 mg 1,300 mg PO Q12H #360 tabs 06/21/21 tablet,extended release (Tylenol Arthritis Pain) albuterol sulfate 90 mcg/actuation 1 - 2 puff inhalation Q4H PRN #18 06/21/21 aerosol inhaler (ProAir HFA) grams insulin degludec 200 unit/mL (3 40 unit (0.2 mL) subcut DAILY #12 06/21/21 mL) subcutaneous pen (Tresiba mL FlexTouch U-200 insulin) levothyroxine 50 mcg tablet 50 mcg PO DAILY #90 tab-caps 06/21/21 metoprolol succinate 25 mg 25 mg PO DAILY #90 tabs 06/21/21 tablet,extended release 24 hr pantoprazole 40 mg tablet,delayed 40 mg PO DAILY #90 tab-caps 06/21/21 release rosuvastatin 10 mg tablet 10 mg PO DAILY #90 tabs 06/21/21 pen needle, diabetic, safety 30 #100 ea 07/21/21 gauge x 1/3 (Novofine Autocover) finasteride 5 mg tablet (Proscar) 5 mg PO DAILY #90 tabs 09/06/21 torsemide 5 mg tablet 5 mg PO .Every other AM #45 tabs 09/06/21 semaglutide 0.25 mg or 0.5 mg (2 See Rx Instructions subcut QWEEK 10/12/21 mg/1.5 mL) subcutaneous pen #1.5 mL injector (Ozempic) sulfamethoxazole 800 1 tab PO Q12H #14 tabs 10/22/21 mg-trimethoprim 160 mg tablet (Bactrim DS) gabapentin 100 mg capsule 200 mg PO BID #360 caps 10/25/21 morphine concentrate 100 mg/5 mL 5 - 20 mg (0.25 - 1 mL) PO Q1-4H 11/01/21 (20 mg/mL) oral solution PRN pain #30 mL apixaban 5 mg tablet (Eliquis) 5 mg PO BID #30 tabs 12/23/21 fentanyl 12 mcg/hr transdermal 1 patch transdermal Q72H #5 ea 12/23/21 patch Allergies Allergy/AdvReac Type Severity Reaction Status Date / Time bupropion HCl Allergy Severe seizures Verified 12/23/21 19:06 [From Wellbutrin] carvedilol [From Coreg] Allergy Mild Itching Verified 12/23/21 19:06 morphine AdvReac Unknown nausea Verified 12/23/21 19:06 General Stated Complaint: Orthopedic DINESH: 3 Review of Systems Constitutional Constitutional: Denies fever(s), Denies headache(s) and Reports weakness (Generalized) Eyes Eyes: Denies change in vision ENT Ears, Nose, Mouth, and Throat: Denies headache(s) and Denies neck pain Cardiovascular Cardiovascular: Denies chest pain and Denies dyspnea Respiratory Respiratory: Denies dyspnea Gastrointestinal Gastrointestinal: Denies abdominal pain, Denies nausea and Denies vomiting Musculoskeletal Musculoskeletal: Reports arthralgias, Denies neck pain, Denies numbness, Reports stiffness and Denies tingling Integumentary/Breasts Skin/Breast: Denies rash Neurologic Neurologic: Denies headache(s), Denies numbness, Denies tingling and Reports weakness (Generalized) Hematologic/Lymphatic Hematologic/Lymphatic: Reports easy bleeding and Reports easy bruising PFSH All Active Problems Left hip pain (Acute) Urinary retention (Acute) Aida infection (Acute) Pulmonary embolism (Chronic) AAA (abdominal aortic aneurysm) (Acute) Adult failure to thrive (Acute) Weakness (Acute) Slurred speech (Acute) Encounter for hospice care (Acute) Urge incontinence (Chronic) Declines RX briefs Self-care deficit (Acute) Impaired mobility and ADLs (Acute) Bedbound (Acute) gets up with WC to BR Recurrent falls (Chronic) Difficulty transferring from bed to wheelchair (Chronic) DME hospital bed has helped Difficulty transferring from toilet to wheelchair (Chronic) Steph investigating commode Wheelchair bound (Chronic) no falls since starting using WC permanent need severe diabetic nephropathy needs more adaptive equipment in the home Cognitive attention deficit (Chronic) needs multiple repetitions of information Diabetes type 2, uncontrolled (Chronic) though she has had education over the years, still seems not to understand carb counting ideally needs someone to educate son as he buys her food also needs hands-on teaching with nutrition labels, etc. 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) Goal A1c < 7.5% Jonniein, neuropathy; Charcot's foot 03/19/13 [employer] Spinal stenosis of lumbar region with neurogenic claudication (Chronic 12/08/13) 04/13/2013 MRI Lumbar Spine: Facet arthropathy, DJD, L4-5, L5-S1 central spinal and neural foraminal stenosis Neurosurgery referral, but not a surgical candidate [facility] chronic pain service Chronic Pain [facility] Pain Center consult 10/26/15 [facility] consult 03/04/17 (Sanket Sawant MD) Other and unspecified hyperlipidemia (Chronic 08/14/12) Esophageal reflux disease (Chronic 07/24/11) UPPER GI SERIES 11/14/2012, MOD HIATAL HERNIA SEVERE GERD Coronary artery disease involving [place] coronary artery of conf[place] coos heart (Chronic) INFERIOR [place] 1996, 100% RCA occlusion; large inf defect on perfusion scan, dr Fair Chronic kidney disease, stage III (moderate) (Chronic 08/14/12) 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 Ward Allergic rhinitis (Chronic 12/09/12) Abdominal aortic aneurysm (Chronic 11/27/12) Identified 10/31/12 CT abd-pelvis; 4cm; stable 4.1 cm 07/2014 CT, 4.3cm 11/2016, 5.5cm 03/04/17 ([facility]). 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 Guerra DJD of right shoulder (01/01/13) 12/2012 x-ray severe DJD glenohumeral joint Dr. Guerra; not a surgical candidate for replacement DNI (do not intubate) DNR (do not resuscitate) Episode of seizures in July 2012 Goals of care, counseling/discussion DNR/DNI COLST done wants to stay home may need new agent if/when Steph moves out of state as planned Incarcerated umbilical hernia (09/06/15) Iron deficiency anemia Nausea and vomiting (08/01/14) a. previous history of possible marijuana induced hyperemesis Olecranon bursitis, left elbow Resolved with appropriate DME Palliative care patient Perirectal abscess With associated hospitalization 2019 POLST (Physician Orders for Life-Sustaining Treatment) signed 06/01/20 RLS (restless legs syndrome) Tinea corporis Surgical History Appendectomy Childhood surgery, no date given by pt.HE Hemiarthroplasty (06/13/15) Dr Charlie Gallardo shoulder History of carpal tunnel release of both wrists (~05/2012) Hx of umbilical hernia repair (09/06/15) Incarcerated umbilical hernia repair (09/06/15) Tonsillectomy childhood surgery, no date given by pt.HE Family History Mother , at 73 yo from dementia Dementia Diabetes Stroke Blind Father , MVA (truck) accident at 45yo No problems noted. Sister Age: 61 Thyroid cancer Brother , from complications of diabetes age 60 Diabetes Brother Diabetes Heart disease Colon cancer Ulcerative colitis Sister Obesity Prediabetes Arthritis Son Substance abuse attends [facility] [facility]; h/o heroin and other opioid addiction Other FH: mental illness Social History Smoking/Tobacco Use Status: Current every day Tobacco Type: cigarettes Tobacco: How many years used: 54 Quit status: not considering quitting Counseling given: counseling >3 minutes Smoking risk assessment performed?: Yes Alcohol Intake: former Drug use: Daily Substance use type: marijuana Counseling given: Yes Details: pt states she smokes marijuana on a daily basis Adopted: No Caregiver/Support person: Yes Foster care: No Household members: children Housing: house Number of Children: 1 number of grandchildren: 0 Communication Needs: Corrective Lenses Education Level: high school Details: didn't finish sophomore year Do you need help understanding health information?: Always 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; 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 Exam Const General: cooperative, comfortable, no acute distress and ill appearing chronically Orientation: alert, awake and oriented x3 HENIA Head: normal to inspection, normocephalic and atraumatic Face and sinus: normal facial exam Mouth: moist mucous membranes Eyes General: appearance normal, both eyes and all related structures Conjunctivae: conjunctivae normal Neck Neck: normal visual inspection, full ROM, trachea midline, supple and nontender Resp Effort & Inspection: normal respiratory effort and able to speak in complete sentences Auscultation: clear to auscultation bilaterally Cardio Rate: regular rate (92) Rhythm: regular rhythm GI Inspection: obesity Palpation: soft and nontender Back/Spine/Pelvis Back: back tenderness (Diffuse, lumbar, patient reports chronic) Skin General skin exam: no rashes or lesions noted Neuro General: patient alert, patient awake, patient oriented x3, moves all extremities and no focal motor deficits Cognition: normal cognition Speech: abnormal speech slurred (Minimally) Extrem General: normal to inspection, full ROM and capillary refill normal Other: Patient is able to move all of her extremities but does have notable weakness throughout, worse in the bilateral lower extremities. Psych Appearance: grossly normal Mental Status: mental status grossly normal Course Vital Signs Vital signs: Vital Signs Temperature 36.4 C L 12/23/21 19:03 Pulse 104 H 12/23/21 19:03 Respiratory Rate 16 12/23/21 19:03 Blood Pressure 104/68 12/23/21 19:03 Pulse Oximetry 94 12/23/21 19:03 Temperature 36.4 C L 12/23/21 19:03 Temperature Source Temporal Artery Scan 12/23/21 19:03 Pulse 104 H 12/23/21 19:03 Respiratory Rate 16 12/23/21 19:03 Respiratory Effort Non-Labored 12/23/21 19:05 Blood Pressure 104/68 12/23/21 19:03 Blood Pressure Position Sitting 12/23/21 19:03 Pulse Oximetry 94 12/23/21 19:03 Oxygen Delivery Method Room Air 12/23/21 19:03 Oxygen Flow Rate 0 12/23/21 19:03 Pain Level 7 12/23/21 19:03
--- NOTE | 2021-12-23 20:06 | DI.VRAD_ITS ---
PROCEDURE INFORMATION: Exam: XR Left Hip Exam date and time: 12/23/2021 19:41 Age: 66 years old Clinical indication: Hip pain; Left hip; Patient HX: Fall/pain TECHNIQUE: Imaging protocol: Radiologic exam of the Left hip. Views: 2 or 3 views hip with pelvis when performed. COMPARISON: CT THORAX ABD/PEL CTA 12/22/2021 03:21 FINDINGS: Bones/joints: No acute fracture or subluxation. Soft tissues: Unremarkable. Vasculature: Atherosclerosis. IMPRESSION: No acute bony pathology. Acute. Dictated and Authenticated by: Gracia Klein MD. Ordering:ANTHONY Naranjo MD
[2021-12-23 21:42] VITALS: PULSE 88; RESP 16
--- NOTE | 2021-12-23 21:43 | NUR.NOTE ---
Referral to Care Management to help with services.Nursing Note:
--- NOTE | 2021-12-25 15:27 | CMACTNOTE_ITS ---
- If Service Date Differs Date of service: 12/25/21 Time of Service: 15:27 Care Management Activity Note Carmel is seen in the ED for left hip pain approximately 4 hours after being discharged from /S at [facility]. CM receives a request from ED provider to assist Carmel in obtaining services. A review of her chart reveals that Home Health services (RN and PT) were requested upon discharge earlier in the day. Carmel also met with Palliative Care while inpatient but the assessment visit was limited due to patient being uncooperative. CM telephones Home Health and confirms receipt of referral.
== END 2021-12-23 21:36 | disposition home or self-care (01) ==
LOC: ER 21:05
PROVIDERS: Emergency Provider Physician Assistant; PCP Nurse Practitioner Adult Health
DX: M25.552 Pain in left hip (principal); W18.39XA Other fall on same level, initial encounter
CPT/HCPCS: 99283; 73502

== ENCOUNTER 2021-12-30 08:54 | Emergency (ER) | payer OTHER, MEDICARE, MEDICAID, SELFPAY ==
[2021-12-30] VITALS (12 sets, daily range): BP systolic 136–162; BP diastolic 68–88; PULSE 78–109; RESP 17–29; TEMP 36.4; O2SAT 90–96
--- NOTE | 2021-12-30 09:32 | ED.GENADUL_ITS ---
Discharge Plan Disposition Patient Disposition: HOME Condition: Poor Discharge Details Clinical Impression: Chronic back pain, Self-care deficit, Nicotine dependence, Noncompliance with medication regimen, Diabetes type 2, uncontrolled Primary Care Provider: Mai Castelan ED Provider: Marty Reno Home Meds and New Rx's Prescriptions: No Action torsemide 5 mg tablet 5 mg PO .Every other AM Qty: 45 3RF finasteride [Proscar] 5 mg tablet 5 mg PO DAILY Qty: 90 3RF morphine concentrate 100 mg/5 mL (20 mg/mL) solution 5 - 20 mg PO Q1-4H MDD 480 PRN (Reason: pain) Qty: 30 0RF gabapentin 100 mg capsule 200 mg PO BID MDD 800mg Qty: 360 3RF Rx Instructions: Chronic pain; dose increase 10/25/21 (DME) Air mattress See Rx Instructions .Route .MEDSUPPLY Qty: 1 0RF Rx Instructions: As directed budesonide-formoterol [Symbicort] 10.2 GM HFA aerosol inhaler 2 puff Inhalation BID Qty: 3 3RF Hold Instructions: Home Medication placed on hold at Doctor's office Label Comments: 04/01/17 Patient unsure of last dose. Maybe last Thur, but patient is noncompliant with medications CDG ezetimibe [Zetia] 10 mg tablet 10 mg PO DAILY Qty: 90 3RF Hold Instructions: Home Medication placed on hold at Doctor's office Rx Instructions: to lower cholesterol (DME) lancets [OneTouch UltraSoft Lancets] Misc See Dose Instructions .ROUTE .MEDSUPPLY Qty: 400 3RF Dose Instruction: As directed Rx Instructions: E11.4 tests QID to keep A1C below 8 (DME) blood sugar diagnostic Strip See Dose Instructions .ROUTE .MEDSUPPLY Qty: 400 3RF Dose Instruction: As directed Rx Instructions: One Touch Ultra,E 11.40 tests QID to keep A1C below 8 (DME) blood-glucose meter [OneTouch Ultra2 Meter] Kit See Rx Instructions .ROUTE .MEDSUPPLY Qty: 1 0RF Rx Instructions: to check BS qid for DM E11.9 management to keep A1c under 8 acetaminophen [Tylenol Arthritis Pain] 650 mg tablet extended release 1,300 mg PO Q12H Qty: 360 3RF Rx Instructions: Chronic pain--do not exceed 4G in 24 hours tylenol albuterol sulfate [ProAir HFA] 90 mcg/actuation HFA aerosol inhaler 1 - 2 puff Inhalation Q4H PRN Qty: 18 3RF Tresiba FlexTouch U-200 200 unit/mL (3 mL) insulin pen 40 unit subcut DAILY MDD 80 units Qty: 12 11RF Rx Instructions: Uncontrolled T2DM (stop Lantus) levothyroxine 50 mcg tablet 50 mcg PO DAILY Qty: 90 3RF metoprolol succinate 25 mg tablet extended release 24 hr 25 mg PO DAILY Qty: 90 3RF pantoprazole 40 mg tablet,delayed release (DR/EC) 40 mg PO DAILY Qty: 90 3RF rosuvastatin 10 mg tablet 10 mg PO DAILY Qty: 90 3RF Rx Instructions: Stop Simvastatin & take this instead for diabetes & cholesterol, 06/21/21 (DME) Novofine Autocover 30 gauge x 1/3 needle See Rx Instructions .ROUTE .MEDSUPPLY Qty: 100 3RF Rx Instructions: For DM E11.40 to maintain A1C <8, monitoring daily Ozempic 0.25 mg or 0.5 mg(2 mg/1.5 mL) pen injector See Rx Instructions subcut QWEEK Qty: 1.5 1RF Hold Instructions: Home Medication placed on hold at Doctor's office Rx Instructions: 0.25mg x4 weeks, then may increase to 0.5mg weekly for diabetes subcutaneously every week; Eliquis 5 mg tablet 5 mg PO BID Qty: 30 0RF fentanyl 12 mcg/hr patch 72 hour 1 patch transdermal Q72H Qty: 5 0RF sulfamethoxazole-trimethoprim [Bactrim DS] 800-160 mg tablet 1 tab PO Q12H Qty: 14 0RF Discharge Instructions Additional Instructions: As discussed at this time he agrees for plan on pain control along with attempting to keep your at home for as long as possible. At this time we have decided not to do further advanced imaging or intensive work-up. Complaint due to your complex medical history and need of hospice care. Due to not having 24 hours of care and difficulty with care environment you do not fully qualify for hospice but we will attempt to keep you on palliative care to keep you comfortable while you are at home. We have placed a fentanyl patch on you at this time with the plan to have home health nurse see you tomorrow and plan to change patches every 72 hours for you. I have contacted Dr. Bragg to further manage your palliative care plan that it is important that you start to consider possible need of detention facility to further assist in your hospice care and your goals for medical treatment at this time. If you need any further reassessment or change your mind on plan of care for admission or further work-up feel free to return to the emergency department for reassessment. Referrals: Mai Castelna NP [Primary Care Provider] - Yemi,Cesilia Nguyen MD [ [facility] STAFF PHYSICIAN] - Discharge Data Discharge Date/Time-TO BE ENTERED AT DEPARTURE: 12/30/21 12:14 Medical Decision Making Patient presenting to the emergency department for chief complaint of severe back pain. Patient states mid back pain radiating down her left leg consistent with her spinal stenosis. Patient states that she has not had any of her her home medication today and is unsure when they last changed her fentanyl patch. Patient denies any injury or trauma, falls, or other symptoms. Physical exam shows tenderness to the left side of the back and the slight mid spine tenderness. Reviewed patient's past medical history and patient has been back and forth between hospice and palliative care. It appears that patient otherwise qualifies for hospice except for the fact that she does not have appropriate caregiver situation at home to provide 24-hour hospice assistance for the plan. Patient has at multiple times refused admission and will not go to detention facility. Discussed this with patient and her care goals. Patient reports that she wants to stay at home as long as she can, remained comfortable, and be able to watch her animals along with smoke in her own house. Patient is alert and oriented x4 and competent to make her own medical decisions. Patient clearly states understanding and knowledge of AAA that is n ot operable, severe spinal stenosis, uncontrolled diabetes. Discussed with patient options of doing extensive continued work-up due to her high risk medical condition versus treating her pain. Patient reports that this time that she does not want any major interventions and understanding of not performing further imaging to evaluate her chronic and potential life-threatening medical problems. Will give patient IV pain meds and recheck her basic labs including urinalysis due to recent noted UTI with known history of poor medical compliance. Reviewed patient's labs and CBC is overall nondiagnostic without significant leukocytosis CMP does show an elevated glucose of 428 urine does show slight amount of blood, positive nitrite, trace leukocyte Estrace, and RBCs and WBCs present. Sample was noted by lab to be contaminated specimen but also given patient's poor medical compliance we will give patient single dose of Fosfomycin. I reassessed patient and patient states significant improvement of pain and discomfort and states that she is back to pretty much her baseline pain after receiving 1 dose of IV hydromorphone. We did perform COVID testing due to EMS stating that patient was febrile but patient denies any febrile symptoms. Patient is negative for viral panel including flu and RSV along with COVID. I called and spoke to Dr. Bragg who is very familiar with patient. Plan of care was established of patient to be given the fentanyl patch with home health to come and change patches out for patient to ensure at least a basal level of pain control. Did not perform any further intensive work-up as patient otherwise desires and wants hospice level care but they are unable to perform this due to patient's living situation which has been a concern of multiple specialties including primary care, care management, hospitalist team. The hospice and palliative care team will further discuss patient's long-term plan with patient preferably next week. Patient is agreeable to this plan and I did thoroughly discussed with patient that she needs to consider long-term care facility so that she can receive appropriate 24-hour care and comfort measures. Patient states she is agreeable to think about this but at this time endorses that she still wants to go home. After discussion of diagnosis and plan of care patient has no further needs, questions, or concerns and states clear understanding to return to the emergency department for any worsening symptoms. This documentation was generated using [employer] dictation system, please disregard any oddities of phrase or misspellings. HPI General Mode of arrival: EMS . Date/Time Provider Initiated Documentation: 12/30/21 09:07 . Limitations to Documentation: no limitations . Information obtained by: patient, RN/MD, RN notes reviewed and old records reviewed . History of Present Illness 66 year old F presents to the emergency department with the chief complaint of Back pain , described as severe and sim ilar to prior episodes, with intensity rated at 8. Quality is described as sharp, and is localized to the back. Patient extremity (left). Patient started experiencing this day(s) (1) and it has been constant. No relieving factors improve symptom(s), Movement worsens symptoms . Patient notes malaise; denies loss of appetite and nausea/vomiting. Patient did receive the following treatments prior to arrival, none Related Data Home Medications Medication Instructions Recorded Confirmed budesonide-formoterol HFA 80 2 puff inhalation BID ##3 01/28/17 12/30/21 mcg-4.5 mcg/actuation aerosol inhaler (Symbicort) ezetimibe 10 mg tablet (Zetia) 10 mg PO DAILY #90 tab-caps 07/14/20 12/30/21 lancets (CollaajTouch UltraSoft #400 ea 11/03/20 12/30/21 Lancets) blood sugar diagnostic #400 ea 04/19/21 12/30/21 blood-glucose meter (CollaajTouch #1 ea 04/19/21 12/30/21 Ultra2 Meter kit) Air mattress #1 ea 06/15/21 12/30/21 acetaminophen 650 mg 1,300 mg PO Q12H #360 tabs 06/21/21 12/30/21 tablet,extended release (Tylenol Arthritis Pain) albuterol sulfate 90 mcg/actuation 1 - 2 puff inhalation Q4H PRN #18 06/21/21 12/30/21 aerosol inhaler (ProAir HFA) grams insulin degludec 200 unit/mL (3 40 unit (0.2 mL) subcut DAILY #12 06/21/21 12/30/21 mL) subcutaneous pen (Tresiba mL FlexTouch U-200 insulin) levothyroxine 50 mcg tablet 50 mcg PO DAILY #90 tab-caps 06/21/21 12/30/21 metoprolol succinate 25 mg 25 mg PO DAILY #90 tabs 06/21/21 12/30/21 tablet,extended release 24 hr pantoprazole 40 mg tablet,delayed 40 mg PO DAILY #90 tab-caps 06/21/21 12/30/21 release rosuvastatin 10 mg tablet 10 mg PO DAILY #90 tabs 06/21/21 12/30/21 pen needle, diabetic, safety 30 #100 ea 07/21/21 12/30/21 gauge x 1/3 (Novofine Autocover) finasteride 5 mg tablet (Proscar) 5 mg PO DAILY #90 tabs 09/06/21 12/30/21 torsemide 5 mg tablet 5 mg PO .Every other AM #45 tabs 09/06/21 12/30/21 semaglutide 0.25 mg or 0.5 mg (2 See Rx Instructions subcut QWEEK 10/12/21 12/30/21 mg/1.5 mL) subcutaneous pen #1.5 mL injector (Ozempic) sulfamethoxazole 800 1 tab PO Q12H #14 tabs 10/22/21 12/30/21 mg-trimethoprim 160 mg tablet (Bactrim DS) gabapentin 100 mg capsule 200 mg PO BID #360 caps 10/25/21 12/30/21 morphine concentrate 100 mg/5 mL 5 - 20 mg (0.25 - 1 mL) PO Q1-4H 11/01/21 12/30/21 (20 mg/mL) oral solution PRN pain #30 mL apixaban 5 mg tablet (Eliquis) 5 mg PO BID #30 tabs 12/23/21 12/30/21 fentanyl 12 mcg/hr transdermal 1 patch transdermal Q72H #5 ea 12/23/21 12/30/21 patch Previous Rx's Medication Instructions Recorded budesonide-formoterol HFA 80 2 puff inhalation BID ##3 01/28/17 mcg-4.5 mcg/actuation aerosol inhaler (Symbicort) ezetimibe 10 mg tablet (Zetia) 10 mg PO DAILY #90 tab-caps 07/14/20 lancets (OneTouch UltraSoft #400 ea 11/03/20 Lancets) blood sugar diagnostic #400 ea 04/19/21 blood-glucose meter (OneTouch #1 ea 04/19/21 Ultra2 Meter kit) Air mattress #1 ea 06/15/21 acetaminophen 650 mg 1,300 mg PO Q12H #360 tabs 06/21/21 tablet,extended release (Tylenol Arthritis Pain) albuterol sulfate 90 mcg/actuation 1 - 2 puff inhalation Q4H PRN #18 06/21/21 aerosol inhaler (ProAir HFA) grams insulin degludec 200 unit/mL (3 40 unit (0.2 mL) subcut DAILY #12 06/21/21 mL) subcutaneous pen (Tresiba mL FlexTouch U-200 insulin) levothyroxine 50 mcg tablet 50 mcg PO DAILY #90 tab-caps 06/21/21 metoprolol succinate 25 mg 25 mg PO DAILY #90 tabs 06/21/21 tablet,extended release 24 hr pantoprazole 40 mg tablet,delayed 40 mg PO DAILY #90 tab-caps 06/21/21 release rosuvastatin 10 mg tablet 10 mg PO DAILY #90 tabs 06/21/21 pen needle, diabetic, safety 30 #100 ea 07/21/21 gauge x 1/3 (Novofine Autocover) finasteride 5 mg tablet (Proscar) 5 mg PO DAILY #90 tabs 09/06/21 torsemide 5 mg tablet 5 mg PO .Every other AM #45 tabs 09/06/21 semaglutide 0.25 mg or 0.5 mg (2 See Rx Instructions subcut QWEEK 10/12/21 mg/1.5 mL) subcutaneous pen #1.5 mL injector (Ozempic) sulfamethoxazole 800 1 tab PO Q12H #14 tabs 10/22/21 mg-trimethoprim 160 mg tablet (Bactrim DS) gabapentin 100 mg capsule 200 mg PO BID #360 caps 10/25/21 morphine concentrate 100 mg/5 mL 5 - 20 mg (0.25 - 1 mL) PO Q1-4H 11/01/21 (20 mg/mL) oral solution PRN pain #30 mL apixaban 5 mg tablet (Eliquis) 5 mg PO BID #30 tabs 12/23/21 fentanyl 12 mcg/hr transdermal 1 patch transdermal Q72H #5 ea 12/23/21 patch Allergies Allergy/AdvReac Type Severity Reaction Status Date / Time bupropion HCl Allergy Severe seizures Verified 12/23/21 19:06 [From Wellbutrin] carvedilol [From Coreg] Allergy Mild Itching Verified 12/23/21 19:06 morphine AdvReac Unknown nausea Verified 12/23/21 19:06 General Stated Complaint: GenMedical DINESH: 3 Review of Systems Constitutional Constitutional: Denies chills and Denies fever(s) Cardiovascular Cardiovascular: Denies chest pain and Denies dyspnea on exertion Respiratory Respiratory: Reports cough (chronic witout change) and Denies dyspnea on exertion Gastrointestinal Gastrointestinal: Denies abdominal pain, Denies change in bowel habits, Denies diarrhea, Reports nausea and Denies vomiting Genitourinary Genitourinary: Denies urinary incontinence Musculoskeletal Musculoskeletal: Reports as per HPI, Reports back pain and Reports radiating pain into limb Neurologic Neurologic: Denies sensory deficit PFSH All Active Problems (Updated 12/30/21 @ 11:58 by Marty Reno NP) Left hip pain (Acute) Urinary retention (Acute) Aida infection (Acute) Pulmonary embolism (Chronic) AAA (abdominal aortic aneurysm) (Acute) Weakness (Acute) Encounter for hospice care (Acute) Urge incontinence (Chronic) Declines RX briefs Self-care deficit (Acute) Bedbound (Acute) gets up with WC to BR Recurrent falls (Chronic) Difficulty transferring from bed to wheelchair (Chronic) DME hospital bed has helped Difficulty transferring from toilet to wheelchair (Chronic) Steph investigating commode Wheelchair bound (Chronic) no falls since starting using WC permanent need severe diabetic nephropathy needs more adaptive equipment in the home Cognitive attention deficit (Chronic) needs multiple repetitions of information Diabetes type 2, uncontrolled (Chronic) though she has had education over the years, still seems not to understand carb counting ideally needs someone to educate son as he buys her food also needs hands-on teaching with nutrition labels, etc. 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 Ambulates with cane when out; walker at home 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) Goal A1c < 7.5% Schein, neuropathy; Charcot's foot 03/19/13 [employer] Spinal stenosis of lumbar region with neurogenic claudication (Chronic 12/08/13) 04/13/2013 MRI Lumbar Spine: Facet arthropathy, DJD, L4-5, L5-S1 central spinal and neural foraminal stenosis Neurosurgery referral, but not a surgical candidate [facility] chronic pain service Chronic Pain [facility] Pain Center consult 10/26/15 [facility] consult 03/04/17 (Sanket Sawant MD) Other and unspecified hyperlipidemia (Chronic 08/14/12) Esophageal reflux disease (Chronic 07/24/11) UPPER GI SERIES 11/14/2012, MOD HIATAL HERNIA SEVERE GERD Coronary artery disease involving [place] coronary artery of [place] heart (Chronic) INFERIOR SD 1996, 100% RCA occlusion; large inf defect on perfusion scan, dr Fair Chronic kidney disease, stage III (moderate) (Chronic 08/14/12) 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 Ward Allergic rhinitis (Chronic 12/09/12) Abdominal aortic aneurysm (Chronic 11/27/12) Identified 10/31/12 CT abd-pelvis; 4cm; stable 4.1 cm 07/2014 CT, 4.3cm 11/2016, 5.5cm 03/04/17 ([facility]). 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 Guerra DJD of right shoulder (01/01/13) 12/2012 x-ray severe DJD glenohumeral joint Dr. Guerra; not a surgical candidate for replacement DNI (do not intubate) DNR (do not resuscitate) Episode of seizures in July 2012 Goals of care, counseling/discussion DNR/DNI COLST done wants to stay home may need new agent if/when Steph moves out of state as planned Incarcerated umbilical hernia (09/06/15) Iron deficiency anemia Nausea and vomiting (08/01/14) a. previous history of possible marijuana induced hyperemesis Olecranon bursitis, left elbow Resolved with appropriate DME Palliative care patient Perirectal abscess With associated hospitalization 2019 POLST (Physician Orders for Life-Sustaining Treatment) signed 06/01/20 RLS (restless legs syndrome) Tinea corporis Surgical History Appendectomy Childhood surgery, no date given by pt.HE Hemiarthroplasty (06/13/15) Dr Charlie Gallardo shoulder History of carpal tunnel release of both wrists (~05/2012) Hx of umbilical hernia repair (09/06/15) Incarcerated umbilical hernia repair (09/06/15) Tonsillectomy childhood surgery, no date given by pt.HE Family History Mother , at 73 yo from dementia Dementia Diabetes Stroke Blind Father , MVA (truck) accident at 45yo No problems noted. Sister Age: 61 Thyroid cancer Brother , from complications of diabetes age 60 Diabetes Brother Diabetes Heart disease Colon cancer Ulcerative colitis Sister Obesity Prediabetes Arthritis Son Substance abuse attends [facility] clinic; h/o heroin and other opioid addiction Other FH: mental illness Social History Smoking/Tobacco Use Status: Current every day Tobacco Type: cigarettes Tobacco: How many years used: 54 Quit status: not considering quitting Counseling given: counseling >3 minutes Smoking risk assessment performed?: Yes Alcohol Intake: former Drug use: Daily Substance use type: marijuana Counseling given: Yes Details: pt states she smokes marijuana on a daily basis Adopted: No Caregiver/Support person: Yes Foster care: No Household members: children Housing: house Number of Children: 1 number of grandchildren: 0 Communication Needs: Corrective Lenses Education Level: high school Details: didn't finish sophomore year Do you need help understanding health information?: Always 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; 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 Pets and animals: Yes Current gender identity: female What is your relationship status?: How often do you talk on the phone with friends or family?: three or more times per week How often do you get together with friends or relatives?: twice per week Panel score (0-1 are the most socially isolated patients): 1 What type of physical activity do you participate in: none and wheelchair-bound Special eliana needs: No Seatbelt use: sometimes Working smoke detector in home: Yes Fire extinguisher in home: Yes Additional Social history: Patient reports she lives with her son Exam Const General: cooperative, not diaphoretic, frail appearing and ill appearing acutely and chronically Orientation: alert, awake and oriented x3 HENMT Head: normocephalic and atraumatic Resp Effort & Inspection: normal respiratory effort, able to speak in complete sentences and no respiratory distress Auscultation: clear to auscultation bilaterally Cardio Rate: tachycardic Rhythm: regular rhythm Back/Spine/Pelvis Thoracic/Lumbar Spine: pain with thoraco-lumbar ROM, paraspinal tenderness, thoraco-lumbar ROM limited and lumbar spinal tenderness Neuro General: patient alert, patient awake, patient oriented x3 and moves all extremities Course Vital Signs Vital signs: Vital Signs Temperature 36.4 C L 12/30/21 08:59 Pulse 108 H 12/30/21 08:59 Respiratory Rate 18 12/30/21 08:59 Blood Pressure 162/88 H 12/30/21 08:59 Pulse Oximetry 92 12/30/21 08:59 Temperature 36.4 C L 12/30/21 08:59 Temperature Source Temporal Artery Scan 12/30/21 08:59 Pulse 108 H 12/30/21 08:59 Respiratory Rate 18 12/30/21 08:59 Respiratory Effort 12/30/21 09:16 Blood Pressure 162/88 H 12/30/21 08:59 Blood Pressure Position Supine 12/30/21 08:59 Pulse Oximetry 92 12/30/21 08:59 Oxygen Delivery Method Room Air 12/30/21 08:59 Oxygen Flow Rate 0 12/30/21 08:59 Pain Level 8 12/30/21 08:59
[2021-12-30 09:49] LABS: Abs Immature Grans 0.12 10^3/uL (0.0-0.06); Absolute Basophil Count 0.04 10^3/uL (0.0-0.2); Absolute Eosinophil Count 0.14 10^3/uL (0.0-0.7); Absolute Lymphocyte Count 0.84 10^3/uL (1.2-3.4); Absolute Monocyte Count 0.17 10^3/uL (0.1-0.8); Absolute Neutrophil Count 8.92 10^3/uL (1.2-6.7); Basophils % 0.4; Eosinophils % 1.4; HCT 39.8 % (36.0-46.0); HGB 12.3 g/dL (11.2-15.7); Immature Grans % 1.2; Lymphocytes % 8.2; MCH 25.5 pg (27.0-33.0); MCHC 30.9 % (32.0-36.0); MCV 83 fL (80-95); MPV 11.8 fL (8.0-11.0); Monocytes % 1.7; Neutrophils % 87.1; Platelet Count 196 10^3/uL (130-400); RBC 4.82 10^6/uL (3.93-5.22); RDW 15.9 % (11.7-14.6); RDW-SD 47.6 fL; WBC 10.23 10^3/uL (4.4-10.8)
[2021-12-30 09:58] LABS: ALT 36 U/L (14-59); AST 21 U/L (15-37); Albumin 3.2 g/dL (3.4-5.0); Alkaline Phosphatase 133 U/L (46-116); Anion Gap 9.1 mmol/L (3-11); BUN 16 mg/dL (7-18); Bilirubin, Total 0.3 mg/dL (0.2-1.0); CO2 25.9 mmol/L (21.0-32.0); Calcium 9.1 mg/dL (8.5-10.1); Chloride 105 mmol/L (98-107); Glucose 428 mg/dL (74-106); Potassium 4.4 mmol/L (3.5-5.1); Sodium 140 mmol/L (136-145); Total Protein 7.1 g/dL (6.4-8.2)
[2021-12-30 10:12] LABS: COVID-19 PCR Negative (Negative); Influenza A PCR Negative (Negative); Influenza B PCR Negative (Negative); RSV PCR Negative (Negative)
[2021-12-30] MEDS: HYDROmorphone 2 MG/ML VIAL 1 MG IVP (10:13)
[2021-12-30 11:21] LABS: Bilirubin Negative (Negative); Blood Moderate (Negative); Clarity Sl Cloudy (Clear); Glucose 500 mg/dL (Negative); Ketones Negative (Negative); Leukocyte Esterase Trace (Negative); Nitrite Positive (Negative); Urobilinogen 0.2 EU/dL (Up TO 0.2)
[2021-12-30 11:31] LABS: Epithelial Cells Many HPF (Negative); RBC 20-50 HPF (0-2)
[2021-12-30 11:32] LABS: Bacteria Many HPF (Negative); C & S Indicated? No/Sq. Contamination; Casts 0-2 Coarse Granular LPF (Negative); Crystals Negative HPF (Negative); Mucus Moderate (Negative); Other Cells Few Transitional (Negative)
[2021-12-30] MEDS: Fosfomycin Tromethamine 3 GM PACKET PO (11:40)
[2021-12-30] MEDS: fentaNYL 12 MCG PATCH TD (11:43)
== END 2021-12-30 12:14 | disposition home or self-care (01) ==
PROVIDERS: Emergency Provider Nurse Practitioner Family; PCP Nurse Practitioner Adult Health
DX: G89.29 Other chronic pain (principal); M54.50 Low back pain, unspecified; N39.0 Urinary tract infection, site not specified; E11.9 Type 2 diabetes mellitus without complications; F17.210 Nicotine dependence, cigarettes, uncomplicated; Z79.4 Long term (current) use of insulin; Z20.822 Contact with and (suspected) exposure to COVID-19; Z91.14 Patient's other noncompliance with medication regimen; Z74.1 Need for assistance with personal care
CPT/HCPCS: 80053; 87637; 96374; 99284; 81003; 81015; 85025; J3490

== ENCOUNTER 2022-01-03 13:32 | Outpatient (REF) | payer MEDICARE, MEDICAID, OTHER, SELFPAY ==
[2022-01-03 17:11] LABS: Bilirubin Negative (Negative); Blood Trace-lysed (Negative); Clarity Sl Cloudy (Clear); Glucose 500 mg/dL (Negative); Ketones Negative (Negative); Leukocyte Esterase Negative (Negative); Nitrite Negative (Negative); Specific Gravity 1.025 (1.005-1.025); Urobilinogen 0.2 EU/dL (Up TO 0.2); pH 5.5 (5-8)
== END 2022-01-03 13:33 | disposition home or self-care (01) ==
LOC: LBN 13:32
PROVIDERS: PCP Nurse Practitioner Adult Health; Visit Provider Nurse Practitioner
DX: R35.89 Other polyuria (principal)
CPT/HCPCS: 81003; 87086

== ENCOUNTER 2022-01-07 08:16 | Emergency (ER) | payer OTHER, MEDICARE, MEDICAID, SELFPAY ==
[2022-01-07] VITALS (20 sets, daily range): BP systolic 142–157; BP diastolic 70–94; PULSE 65–99; RESP 15–25; TEMP 36.6; O2SAT 91–98
--- NOTE | 2022-01-07 08:47 | ED.GENADUL_ITS ---
Discharge Plan Disposition Patient Disposition: HOME Condition: Stable Discharge Details Clinical Impression: Acute UTI Primary Care Provider: Mai Castelan ED Provider: Jose A Lazaro Home Meds and New Rx's Prescriptions: New cephalexin 500 mg capsule 500 mg PO BID Qty: 14 0RF Continued torsemide 5 mg tablet 5 mg PO .Every other AM Qty: 45 3RF finasteride [Proscar] 5 mg tablet 5 mg PO DAILY Qty: 90 3RF gabapentin 100 mg capsule 200 mg PO BID MDD 800mg Qty: 360 3RF Rx Instructions: Chronic pain; dose increase 10/25/21 (DME) Air mattress See Rx Instructions .Route .MEDSUPPLY Qty: 1 0RF Rx Instructions: As directed budesonide-formoterol [Symbicort] 10.2 GM HFA aerosol inhaler 2 puff Inhalation BID Qty: 3 3RF Hold Instructions: Home Medication placed on hold at Doctor's office Label Comments: 04/01/17 Patient unsure of last dose. Maybe last Thur, but patient is noncompliant with medications CDG ezetimibe [Zetia] 10 mg tablet 10 mg PO DAILY Qty: 90 3RF Hold Instructions: Home Medication placed on hold at Doctor's office Rx Instructions: to lower cholesterol (DME) lancets [OneTouch UltraSoft Lancets] Misc See Dose Instructions .ROUTE .MEDSUPPLY Qty: 400 3RF Dose Instruction: As directed Rx Instructions: E11.4 tests QID to keep A1C below 8 (DME) blood sugar diagnostic Strip See Dose Instructions .ROUTE .MEDSUPPLY Qty: 400 3RF Dose Instruction: As directed Rx Instructions: One Touch Ultra,E 11.40 tests QID to keep A1C below 8 (DME) blood-glucose meter [OneTouch Ultra2 Meter] Kit See Rx Instructions .ROUTE .MEDSUPPLY Qty: 1 0RF Rx Instructions: to check BS qid for DM E11.9 management to keep A1c under 8 acetaminophen [Tylenol Arthritis Pain] 650 mg tablet extended release 1,300 mg PO Q12H Qty: 360 3RF Rx Instructions: Chronic pain--do not exceed 4G in 24 hours tylenol albuterol sulfate [ProAir HFA] 90 mcg/actuation HFA aerosol inhaler 1 - 2 puff Inhalation Q4H PRN Qty: 18 3RF Tresiba FlexTouch U-200 200 unit/mL (3 mL) insulin pen 40 unit subcut DAILY MDD 80 units Qty: 12 11RF Rx Instructions: Uncontrolled T2DM (stop Lantus) levothyroxine 50 mcg tablet 50 mcg PO DAILY Qty: 90 3RF metoprolol succinate 25 mg tablet extended release 24 hr 25 mg PO DAILY Qty: 90 3RF pantoprazole 40 mg tablet,delayed release (DR/EC) 40 mg PO DAILY Qty: 90 3RF rosuvastatin 10 mg tablet 10 mg PO DAILY Qty: 90 3RF Rx Instructions: Stop Simvastatin & take this instead for diabetes & cholesterol, 06/21/21 (DME) Novofine Autocover 30 gauge x 1/3 needle See Rx Instructions .ROUTE .MEDSUPPLY Qty: 100 3RF Rx Instructions: For DM E11.40 to maintain A1C <8, monitoring daily Ozempic 0.25 mg or 0.5 mg(2 mg/1.5 mL) pen injector See Rx Instructions subcut QWEEK Qty: 1.5 1RF Hold Instructions: Home Medication placed on hold at Doctor's office Rx Instructions: 0.25mg x4 weeks, then may increase to 0.5mg weekly for diabetes subcutaneously every week; fentanyl 12 mcg/hr patch 72 hour 1 patch transdermal Q72H MDD 12mcg/hr Qty: 5 0RF Rx Instructions: Chronic pain--to be managed by home health nurse only. Eliquis 5 mg tablet 5 mg PO BID Qty: 30 0RF Discharge Instructions Instructions: Urinary Tract Infection in Women (ED) Additional Instructions: Keflex as directed. Please watch for new or worsening symptoms and return to the ER for any concerns. Please contact your primary care provider tomorrow to discuss your ER visit and need for outpatient reevaluation. Discharge Data Discharge Date/Time-TO BE ENTERED AT DEPARTURE: 01/07/22 10:33 Medical Decision Making This is a 66-year-old female with recent multiple visits to our ER, palliative care patient, discontinued from the hospice services as she does not have a safe caregiving situation at home, presenting to the ER reporting chronic pain. She is concerned that her new fentanyl patch was lost, I was able to see it on her left arm and it is still adhered well. Patient states that she does not know how you can help me today. She is adamant that she will not be admitted to our facility or go to a fpc. She is agreeable to IV access, routine laboratory values, and I will provide IV fluid given she does look slightly dry. She is requesting oral hydration, water given. Given her urinary frequency we will also obtain urinalysis In the meantime I was able to speak with Cari who is the nurse for hospice and home care. She does state to me that in fact the patient is not a hospice patient given her living situation but does receive home care and given the patient was seen in the ER today will have a follow-up tomorrow. I have also placed the patient on the care management list given her multiple ER visits, difficult home situation, and unwillingness for admission or long-term care placement. CBC reveals no evidence of leukocytosis, anemia, thrombocytopenia. Her electrolytes are unremarkable. Creatinine is 0.8 with a GFR greater than 60. Glucose is 310. No elevated anion gap, no evidence of DKA. Patient unable to provide a urine sample. Will allow a In-N-Out cath Urinalysis obtained, results not back but patient requesting discharge. She does not want to wait in her exam room any longer. She would like to wait in the waiting room while [facility] is contacted for a ride home. Urinalysis reveals trace leuk esterase 20-50 white cells, many bacteria. Culture is indicated. Patient is still in the waiting room and agreeable to taking p.o. Keflex. I will also provide her a prescription. [facility] contacted and will provide transportation home Standard discharge and return precautions were provided. Patient understands, is agreeable to this plan, and has no additional questions or concerns upon discharge. This documentation was generated using [employer] system, please disregard any oddities of phrase or misspellings. Medical Records Medical records reviewed: Yes I reviewed the patient's medical records. Lab Data Lab results reviewed: Yes I reviewed the patient's lab results. Labs: 01/07/22 09:57 Urine - Reflex from Ua Urine Culture - Pending Laboratory Tests Range/Units 01/07/22 01/07/22 01/07/22 09:05 09:05 09:57 WBC (4.4-10.8) 10^3/uL 8.70 RBC (3.93-5.22) 10^6/uL 4.49 Hgb (11.2-15.7) g/dL 11.3 Hct (36.0-46.0) % 36.4 MCV (80-95) fL 81 MCH (27.0-33.0) pg 25.2 L MCHC (32.0-36.0) % 31.0 L RDW (11.7-14.6) % 15.9 H Plt Count (130-400) 10^3/uL 208 MPV (8.0-11.0) fL 10.5 Immature Gran % 0.6 Neutrophils % 79.5 Lymphocytes % 13.0 Monocytes % 5.6 Eosinophils % 0.7 Basophils % 0.6 Nucleated RBC % (0.0-0.3) % 0.0 Absolute Neutrophils (1.2-6.7) 10^3/uL 6.92 H Absolute Lymphocytes (1.2-3.4) 10^3/uL 1.13 L Absolute Monocytes (0.1-0.8) 10^3/uL 0.49 Absolute Eosinophils (0.0-0.7) 10^3/uL 0.06 Absolute Basophils (0.0-0.2) 10^3/uL 0.05 Sodium (136-145) mmol/L 138 Potassium (3.5-5.1) mmol/L 3.9 Chloride (98-107) mmol/L 103 Carbon Dioxide (21.0-32.0) mmol/L 26.9 Anion Gap (3-11) mmol/L 8.1 BUN (7-18) mg/dL 16 Creatinine (0.55-1.02) mg/dL 0.8 Estimated GFR/1.73 m2 (mL/min/1.73m2) >= 60.00 Glucose (74-106) mg/dL 311 H Calcium (8.5-10.1) mg/dL 9.5 Total Bilirubin (0.2-1.0) mg/dL 0.5 AST (15-37) U/L 16 ALT (14-59) U/L 27 Alkaline Phosphatase (46-116) U/L 108 Total Protein (6.4-8.2) g/dL 6.9 Albumin (3.4-5.0) g/dL 3.3 L Lipase (73-393) U/L 122 Urine Color (Yellow) Yellow Urine Clarity (Clear) Cloudy Urine pH (5-8) 6.0 Ur Specific [place] (1.005-1.025) 1.025 Urine Protein (Negative) mg/dL 100 H Urine Ketones (Negative) mg/dL Negative Urine Blood (Negative) Small H Urine Nitrite (Negative) Negative Urine Bilirubin (Negative) Negative Urine Urobilinogen (Up TO 0.2) EU/dL 0.2 Ur Leukocyte Esterase (Negative) Trace H Urine RBC (0-2) HPF 3-5 H Urine WBC (0-5) HPF 20-50 H Ur Epithelial Cells (Negative) HPF Few Urine Crystals (Negative) HPF Negative Urine Bacteria (Negative) HPF Many Urine Casts (Negative) LPF Negative Urine Mucus (Negative) Negative Ur Culture Indicated? Yes Urine Glucose (Negative) mg/dL >=1000 H HPI General Mode of arrival: EMS . Date/Time Provider Initiated Documentation: 01/07/22 08:25 . Limitations to Documentation: no limitations . Information obtained by: patient and EMS . HPI Narrative: This is a 66-year-old female with a significant past medical history that includes diabetes, hypertension, hypothyroidism, chronic back pain, COPD, CKD, obesity, PE, anticoagulated, difficulty with ambulation at baseline, DNR, DNI, presenting to the ER complaining of chronic pain exacerbation. Patient states that she is a palliative care patient, does receive home health, but is not a candidate for hospice given her home living conditions, lack of wild animal caretaker, and continuation to decline admission to our facility or to a fpc. Patient states that they started her on a fentanyl patch yesterday but she is not sure it is working and believes that it came off overnight. Patient is currently reporting chronic abdominal and back pain which she states is chronic and unchanged. Patient is unsure how we can help her today, unsure if she would like an IV or any work-up, but is adamant that she will be discharged home today. She denies fever, nausea, vomiting, hematuria. She does report mild urinary frequency overnight and she states that she did get up multiple times, she believes that she woke her son, and he was mad at her, it was not overly helpful this morning when she needed it. Related Data Home Medications Medication Instructions Recorded Confirmed budesonide-formoterol HFA 80 2 puff inhalation BID ##3 09/18/17 08/28/22 mcg-4.5 mcg/actuation aerosol inhaler (Symbicort) ezetimibe 10 mg tablet (Zetia) 10 mg PO DAILY #90 tab-caps 07/14/20 01/07/22 lancets (OneTouch UltraSoft #400 ea 11/03/20 01/07/22 Lancets) blood sugar diagnostic #400 ea 04/19/21 01/07/22 blood-glucose meter (OneTouch #1 ea 04/19/21 01/07/22 Ultra2 Meter kit) Air mattress #1 ea 06/15/21 01/07/22 acetaminophen 650 mg 1,300 mg PO Q12H #360 tabs 06/21/21 01/07/22 tablet,extended release (Tylenol Arthritis Pain) albuterol sulfate 90 mcg/actuation 1 - 2 puff inhalation Q4H PRN #18 06/21/21 01/07/22 aerosol inhaler (ProAir HFA) grams insulin degludec 200 unit/mL (3 40 unit (0.2 mL) subcut DAILY #12 06/21/21 mL) subcutaneous pen (Tresiba mL FlexTouch U-200 insulin) levothyroxine 50 mcg tablet 50 mcg PO DAILY #90 tab-caps 06/21/21 01/07/22 metoprolol succinate 25 mg 25 mg PO DAILY #90 tabs 06/21/21 01/07/22 tablet,extended release 24 hr pantoprazole 40 mg tablet,delayed 40 mg PO DAILY #90 tab-caps 06/21/21 01/07/22 release rosuvastatin 10 mg tablet 10 mg PO DAILY #90 tabs 06/21/21 01/07/22 pen needle, diabetic, safety 30 #100 ea 07/21/21 01/07/22 gauge x 1/3 (Novofine Autocover) finasteride 5 mg tablet (Proscar) 5 mg PO DAILY #90 tabs 09/06/21 01/07/22 torsemide 5 mg tablet 5 mg PO .Every other AM #45 tabs 09/06/21 01/07/22 semaglutide 0.25 mg or 0.5 mg (2 See Rx Instructions subcut QWEEK 10/12/21 01/07/22 mg/1.5 mL) subcutaneous pen #1.5 mL injector (Ozempic) gabapentin 100 mg capsule 200 mg PO BID #360 caps 10/25/21 01/07/22 apixaban 5 mg tablet (Eliquis) 5 mg PO BID #30 tabs 12/23/21 01/07/22 fentanyl 12 mcg/hr transdermal 1 patch transdermal Q72H #5 ea 01/04/22 01/07/22 patch cephalexin 500 mg capsule 500 mg PO BID #14 caps 01/07/22 Previous Rx's Medication Instructions Recorded budesonide-formoterol HFA 80 2 puff inhalation BID ##3 01/28/17 mcg-4.5 mcg/actuation aerosol inhaler (Symbicort) ezetimibe 10 mg tablet (Zetia) 10 mg PO DAILY #90 tab-caps 07/14/20 lancets (Hana BiosciencesTouch UltraSoft #400 ea 11/03/20 Lancets) blood sugar diagnostic #400 ea 04/19/21 blood-glucose meter (XLerantuch #1 ea 04/19/21 Ultra2 Meter kit) Air mattress #1 ea 06/15/21 acetaminophen 650 mg 1,300 mg PO Q12H #360 tabs 06/21/21 tablet,extended release (Tylenol Arthritis Pain) albuterol sulfate 90 mcg/actuation 1 - 2 puff inhalation Q4H PRN #18 06/21/21 aerosol inhaler (ProAir HFA) grams insulin degludec 200 unit/mL (3 40 unit (0.2 mL) subcut DAILY #12 06/21/21 mL) subcutaneous pen (Tresiba mL FlexTouch U-200 insulin) levothyroxine 50 mcg tablet 50 mcg PO DAILY #90 tab-caps 06/21/21 metoprolol succinate 25 mg 25 mg PO DAILY #90 tabs 06/21/21 tablet,extended release 24 hr pantoprazole 40 mg tablet,delayed 40 mg PO DAILY #90 tab-caps 06/21/21 release rosuvastatin 10 mg tablet 10 mg PO DAILY #90 tabs 06/21/21 pen needle, diabetic, safety 30 #100 ea 07/21/21 gauge x 1/3 (Novofine Autocover) finasteride 5 mg tablet (Proscar) 5 mg PO DAILY #90 tabs 09/06/21 torsemide 5 mg tablet 5 mg PO .Every other AM #45 tabs 09/06/21 semaglutide 0.25 mg or 0.5 mg (2 See Rx Instructions subcut QWEEK 10/12/21 mg/1.5 mL) subcutaneous pen #1.5 mL injector (Ozempic) gabapentin 100 mg capsule 200 mg PO BID #360 caps 10/25/21 apixaban 5 mg tablet (Eliquis) 5 mg PO BID #30 tabs 12/23/21 fentanyl 12 mcg/hr transdermal 1 patch transdermal Q72H #5 ea 01/04/22 patch cephalexin 500 mg capsule 500 mg PO BID #14 caps 01/07/22 Allergies Allergy/AdvReac Type Severity Reaction Status Date / Time bupropion HCl Allergy Severe seizures Verified 01/07/22 08:29 [From Wellbutrin] carvedilol [From Coreg] Allergy Mild Itching Verified 01/07/22 08:29 morphine AdvReac Unknown nausea Verified 01/07/22 08:29 General Stated Complaint: Abd Prob DINESH: 3 Review of Systems Constitutional Constitutional: Denies fever(s) and Reports weakness (Generalized) Cardiovascular Cardiovascular: Denies chest pain and Denies dyspnea Respiratory Respiratory: Denies chest congestion and Denies dyspnea Gastrointestinal Gastrointestinal: Reports abdominal pain, Denies constipation, Denies diarrhea, Denies nausea and Denies vomiting Genitourinary Genitourinary: Denies hematuria, Denies dysuria and Reports urinary urgency Musculoskeletal Musculoskeletal: Reports back pain Integumentary/Breasts Skin/Breast: Denies rash Neurologic Neurologic: Reports weakness (Generalized) Hematologic/Lymphatic Hematologic/Lymphatic: Reports easy bleeding and Reports easy bruising PFSH All Active Problems (Updated 01/07/22 @ 10:21 by SU Balderas) Acute UTI (Acute) Pulmonary embolism (Chronic ~12/2021) Anticoagulation Urge incontinence (Chronic) Declines RX briefs Self-care deficit (Acute) Bedbound (Acute) gets up with WC to BR Recurrent falls (Chronic) Difficulty transferring from bed to wheelchair (Chronic) DME hospital bed has helped Difficulty transferring from toilet to wheelchair (Chronic) Steph investigating commode Wheelchair bound (Chronic) no falls since starting using WC permanent need severe diabetic nephropathy needs more adaptive equipment in the home Cognitive attention deficit (Chronic) needs multiple repetitions of information Diabetes type 2, uncontrolled (Chronic) though she has had education over the years, still seems not to understand carb counting ideally needs someone to educate son as he buys her food also needs hands-on teaching with nutrition labels, etc. 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) Goal A1c < 7.5% Schein, neuropathy; Charcot's foot 03/19/13 [employer] Spinal stenosis of lumbar region with neurogenic claudication (Chronic 12/08/13) 04/13/2013 MRI Lumbar Spine: Facet arthropathy, DJD, L4-5, L5-S1 central spinal and neural foraminal stenosis Neurosurgery referral, but not a surgical candidate [facility] chronic pain service Chronic Pain [facility] Pain [facility] consult 10/26/15 [facility] Spine [facility] consult 03/04/17 (Sanket Sawant MD) Other and unspecified hyperlipidemia (Chronic 08/14/12) Esophageal reflux disease (Chronic 07/24/11) UPPER GI SERIES 11/14/2012, MOD HIATAL HERNIA SEVERE GERD Coronary artery disease involving [place] coronary artery of [place] heart (Chronic) INFERIOR [place] 1996, 100% RCA occlusion; large inf defect on perfusion scan, dr Fair Chronic kidney disease, stage III (moderate) (Chronic 08/14/12) Cortical atrophy R kidney on CT 07/2014; multiple cysts Cardiomyopathy (Chronic) Dr Fair, EF 45% Jun 2014 ECHO (h/o much worse) 10/2016 ECHO: EF 40-45% 10/2016 MPI: no acute, but persistent old infarct COPD, mild (Chronic 07/02/17) PFTs Abdominal aortic aneurysm (Chronic 11/27/12) Identified 10/31/12 CT abd-pelvis; 4cm; stable 4.1 cm 07/2014 CT, 4.3cm 11/2016, 5.5cm 03/04/17 ([facility]). 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 Guerra DJD of right shoulder (01/01/13) 12/2012 x-ray severe DJD glenohumeral joint Dr. Guerra; not a surgical candidate for replacement DNI (do not intubate) DNR (do not resuscitate) Encounter for hospice care Episode of seizures in July 2012 Goals of care, counseling/discussion DNR/DNI COLST done wants to stay home may need new agent if/when Steph moves out of state as planned Incarcerated umbilical hernia (09/06/15) Iron deficiency anemia Mass of both parotid glands Abnormal CT 08/2019 Mild pulmonary hypertension Nausea and vomiting (08/01/14) a. previous history of possible marijuana induced hyperemesis Olecranon bursitis, left elbow Resolved with appropriate DME Osteoarthritis of left elbow Palliative care patient Perirectal abscess With associated hospitalization 2019 POLST (Physician Orders for Life-Sustaining Treatment) signed 06/01/20 RLS (restless legs syndrome) Tinea corporis Surgical History Appendectomy Childhood surgery, no date given by pt.HE Hemiarthroplasty (06/13/15) Dr Charlie Gallardo shoulder History of carpal tunnel release of both wrists (~05/2012) Hx of umbilical hernia repair (09/06/15) Incarcerated umbilical hernia repair (09/06/15) Tonsillectomy childhood surgery, no date given by pt.HE Family History Mother , at 73 yo from dementia Dementia Diabetes Stroke Blind Father , MVA (truck) accident at 45yo No problems noted. Sister Age: 61 Thyroid cancer Brother , from complications of diabetes age 60 Diabetes Brother Diabetes Heart disease Colon cancer Ulcerative colitis Sister Obesity Prediabetes Arthritis Son Substance abuse attends [facility]; h/o heroin and other opioid addiction Other FH: mental illness Social History Smoking/Tobacco Use Status: Current every day Tobacco Type: cigarettes Tobacco: How many years used: 54 Quit status: not considering quitting Counseling given: counseling >3 minutes Smoking risk assessment performed?: Yes Alcohol Intake: former Drug use: Daily Substance use type: marijuana Counseling given: Yes Details: pt states she smokes marijuana on a daily basis Adopted: No Caregiver/Support person: Yes Foster care: No Household members: children Housing: house Number of Children: 1 number of grandchildren: 0 Communication Needs: Corrective Lenses Education Level: high school Details: didn't finish sophomore year Do you need help understanding health information?: Always 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; 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 Pets and animals: Yes Current gender identity: female What is your relationship status?: How often do you talk on the phone with friends or family?: three or more times per week How often do you get together with friends or relatives?: twice per week Panel score (0-1 are the most socially isolated patients): 1 What type of physical activity do you participate in: none and wheelchair-bound Special eliana needs: No Seatbelt use: sometimes Working smoke detector in home: Yes Fire extinguisher in home: Yes Additional Social history: Patient reports she lives with her son Exam Const General: cooperative, comfortable, no acute distress and ill appearing chronically Orientation: alert, awake and oriented x3 HENMT Head: normal to inspection, normocephalic and atraumatic Face and sinus: normal facial exam Mouth: moist mucous membranes abnormal (Slightly dry) Throat: posterior oropharynx normal Eyes Conjunctivae: conjunctivae normal Neck Neck: normal visual inspection, full ROM, no meningeal signs, trachea midline and supple Resp Effort & Inspection: normal respiratory effort and able to speak in complete sentences Auscultation: clear to auscultation bilaterally Cardio Rate: regular rate Rhythm: regular rhythm GI Palpation: soft, not firm, no guarding, no pulsatile masses and nontender Auscultation: normal bowel sounds Back/Spine/Pelvis Back: no CVA tenderness and back tenderness (Diffuse, mild lower lumbar. No midline point tenderness) Skin General skin exam: no rashes or lesions noted Neuro General: patient alert, patient awake, patient oriented x3, moves all extremities and no focal motor deficits Cognition: normal cognition Speech: speech normal Motor: muscle tone normal throughout Sensory Exam: no sensory deficits noted Extrem General: normal to inspection, full ROM and capillary refill normal Psych Appearance: grossly normal Mental Status: mental status grossly normal Course Vital Signs Vital signs: Vital Signs Temperature 36.6 C 01/07/22 08:17 Pulse 79 01/07/22 08:17 Respiratory Rate 19 01/07/22 08:17 Blood Pressure 146/93 H 01/07/22 08:17 Pulse Oximetry 94 01/07/22 08:17 Temperature 36.6 C 01/07/22 08:17 Temperature Source Temporal Artery Scan 01/07/22 08:17 Pulse 79 01/07/22 08:17 Respiratory Rate 19 01/07/22 08:17 Respiratory Effort Non-Labored 01/07/22 08:26 Blood Pressure 146/93 H 01/07/22 08:17 Blood Pressure Position Sitting 01/07/22 08:17 Pulse Oximetry 94 01/07/22 08:17 Oxygen Delivery Method Room Air 01/07/22 08:17 Oxygen Flow Rate 0 01/07/22 08:17 Pain Level 8 01/07/22 08:26
--- NOTE | 2022-01-07 08:56 | NUR.NOTE ---
Isaak Lazaro requesting care management assessment for patient to evaluate frequent ER visits. GREG
[2022-01-07] MEDS: Normal Saline 1,000 ML 1000 ML IV (09:09)
[2022-01-07 09:10] LABS: Abs Immature Grans 0.05 10^3/uL (0.0-0.06); Absolute Basophil Count 0.05 10^3/uL (0.0-0.2); Absolute Eosinophil Count 0.06 10^3/uL (0.0-0.7); Absolute Lymphocyte Count 1.13 10^3/uL (1.2-3.4); Absolute Monocyte Count 0.49 10^3/uL (0.1-0.8); Absolute Neutrophil Count 6.92 10^3/uL (1.2-6.7); Basophils % 0.6; Eosinophils % 0.7; HCT 36.4 % (36.0-46.0); HGB 11.3 g/dL (11.2-15.7); Immature Grans % 0.6; MCH 25.2 pg (27.0-33.0); MCV 81 fL (80-95); MPV 10.5 fL (8.0-11.0); Monocytes % 5.6; Neutrophils % 79.5; Platelet Count 208 10^3/uL (130-400); RBC 4.49 10^6/uL (3.93-5.22); RDW 15.9 % (11.7-14.6); RDW-SD 46.3 fL
[2022-01-07 09:27] LABS: ALT 27 U/L (14-59); AST 16 U/L (15-37); Albumin 3.3 g/dL (3.4-5.0); Alkaline Phosphatase 108 U/L (46-116); Anion Gap 8.1 mmol/L (3-11); BUN 16 mg/dL (7-18); Bilirubin, Total 0.5 mg/dL (0.2-1.0); CO2 26.9 mmol/L (21.0-32.0); CREATININE 0.8 mg/dL (0.55-1.02); Calcium 9.5 mg/dL (8.5-10.1); Chloride 103 mmol/L (98-107); Glucose 311 mg/dL (74-106); Lipase 122 U/L (73-393); Potassium 3.9 mmol/L (3.5-5.1); Sodium 138 mmol/L (136-145); Total Protein 6.9 g/dL (6.4-8.2)
[2022-01-07 10:06] LABS: Bilirubin Negative (Negative); Blood Small (Negative); Clarity Cloudy (Clear); Glucose >=1000 mg/dL (Negative); Ketones Negative (Negative); Leukocyte Esterase Trace (Negative); Nitrite Negative (Negative); Specific Gravity 1.025 (1.005-1.025); Urobilinogen 0.2 EU/dL (Up TO 0.2)
[2022-01-07 10:19] LABS: Bacteria Many HPF (Negative); C & S Indicated? Yes; Casts Negative LPF (Negative); Crystals Negative HPF (Negative); Epithelial Cells Few HPF (Negative); Mucus Negative (Negative); WBC 20-50 HPF (0-5)
[2022-01-07] MEDS: Cephalexin 500 MG CAP PO (10:24)
== END 2022-01-07 10:33 | disposition home or self-care (01) ==
PROVIDERS: Emergency Provider Physician Assistant; PCP Nurse Practitioner Adult Health
DX: N39.0 Urinary tract infection, site not specified (principal); B96.20 Unspecified Escherichia coli [E. coli] as the cause of diseases classified elsewhere; E11.22 Type 2 diabetes mellitus with diabetic chronic kidney disease; I12.9 Hypertensive chronic kidney disease with stage 1 through stage 4 chronic kidney disease, or unspecified chronic kidney disease; N18.9 Chronic kidney disease, unspecified; J44.9 Chronic obstructive pulmonary disease, unspecified; F17.210 Nicotine dependence, cigarettes, uncomplicated; Z66 Do not resuscitate; Z79.4 Long term (current) use of insulin; Z79.51 Long term (current) use of inhaled steroids
CPT/HCPCS: 36415; 80053; 83690; 87077; 96360; 99284; 81003; 81015; 85025; 87086; 87186

== ENCOUNTER 2022-01-15 18:22 | Outpatient (REF) | payer OTHER, MEDICAID, SELFPAY ==
[2022-01-15 15:41] LABS: Bilirubin Negative (Negative); Blood Trace-lysed (Negative); Clarity Clear (Clear); Glucose 500 mg/dL (Negative); Ketones Negative (Negative); Leukocyte Esterase Small (Negative); Nitrite Negative (Negative); Specific Gravity 1.025 (1.005-1.025); Urobilinogen 0.2 EU/dL (Up TO 0.2)
[2022-01-15 16:01] LABS: Bacteria Few HPF (Negative); C & S Indicated? No/Sq. Contamination; Crystals Negative HPF (Negative); Epithelial Cells Many HPF (Negative); Mucus Negative (Negative)
== END 2022-01-15 18:23 | disposition home or self-care (01) ==
LOC: LBN 18:22
PROVIDERS: PCP Nurse Practitioner Adult Health; Visit Provider Student in an Organized Health Care Education/Training Program
DX: N39.0 Urinary tract infection, site not specified (principal); R39.89 Other symptoms and signs involving the genitourinary system
CPT/HCPCS: 81003; 81015

== ENCOUNTER 2022-03-05 13:24 | Outpatient (REF) | payer OTHER, MEDICAID, SELFPAY ==
[2022-03-05 13:59] LABS: Hemoglobin A1C 11.9 % (<5.7)
[2022-03-05 14:00] LABS: Anion Gap 9.3 mmol/L (3-11); BUN 16 mg/dL (7-18); CO2 24.7 mmol/L (21.0-32.0); CREATININE 1.3 mg/dL (0.55-1.02); Calcium 9.4 mg/dL (8.5-10.1); Calculated LDL 85 mg/dL (<100); Chloride 103 mmol/L (98-107); Cholesterol 202 mg/dL (<200); Estimated GFR 44.79 (mL/min/1.73m2); Glucose 395 mg/dL (74-106); HDL Cholesterol 52 mg/dL (40-60); Potassium 5.1 mmol/L (3.5-5.1); Sodium 137 mmol/L (136-145); TSH (W/Ref FT4) 1.41 uIU/mL (0.36-3.74); Triglyceride 328 mg/dL (<150)
== END 2022-03-05 13:25 | disposition home or self-care (01) ==
LOC: LBN 13:24
PROVIDERS: PCP Nurse Practitioner Adult Health; Visit Provider Nurse Practitioner Adult Health
DX: E03.9 Hypothyroidism, unspecified (principal); E11.65 Type 2 diabetes mellitus with hyperglycemia; N18.30 Chronic kidney disease, stage 3 unspecified
CPT/HCPCS: 80048; 80061; 83036; 84443

== ENCOUNTER 2022-05-10 17:43 | Emergency (ER) | payer OTHER, MEDICAID, SELFPAY ==
[2022-05-10] VITALS (30 sets, daily range): BP systolic 115–147; BP diastolic 63–85; PULSE 69–102; RESP 14–30; TEMP 36.6; O2SAT 90–95
--- NOTE | 2022-05-10 18:45 | DI.CT_ITS ---
Exam(s) CT HEAD WO EXAM: CT HEAD WO CLINICAL HISTORY: weakness. TECHNIQUE: Imaging Protocol: Axial computed tomography images with coronal and sagittal reformatted images were created and reviewed COMPARISON: CT CT HEAD WO from 12/22/2021 FINDINGS: Ventricles and Extra axial spaces: Normal in size and morphology for the patient's age. Hemorrhage: None. Cerebral parenchyma: Stable atrophy. Stable white matter changes consistent with small vessel disea se. Midline shift: None. Brainstem/Cerebellum: Normal. Calvarium: Normal. Visualized Paranasal sinuses/Mastoids: Clear. IMPRESSION: No acute abnormality. RADIATION DOSE DELIVERED: 935.83mGy.cm Total DLP 935.83mGy.cm Total DLP DATA REPOSITORY: All CT scans at this facility are submitted to the National Radiology Data Registry (NRDR) Dose Index Registry (DIR) with the [employer] (ACR). RADIATION OPTIMIZATION: All CT scans at this facility use at least one of these dose optimization te chniques: automated exposure control; mA and/or kV adjustment per patient size (includes targeted exa ms where dose is matched to clinical indication); or iterative reconstruction.
--- NOTE | 2022-05-10 18:53 | DI.RAD_ITS ---
Exam(s) XR CHEST 1V IN DI DEPT EXAM: XR CHEST 1V IN DI DEPT CLINICAL HISTORY: weakness TECHNIQUE: 2D digital imaging was performed. COMPARISON: CR,XR XR CHEST 1V IN DI DEPT from 09/09/[address] CHEST PE ABD PELVIS W from 10/22/2021 FINDINGS: Exam is limited by underpenetration and lack of pulmonary inflation as well as rotation.. The heart is enlarged, unchanged. No focal infiltrate, effusion or pulmonary edema is seen. Right shoulder pr osthesis is again noted.. IMPRESSION: Limited exam. Cardiomegaly. No acute findings. DATA REPOSITORY: RADIATION DOSE DELIVERED:
[2022-05-10] MEDS: Normal Saline 500 ML IV (19:15)
[2022-05-10 19:22] LABS: Abs Immature Grans 0.07 10^3/uL (0.0-0.06); Absolute Basophil Count 0.03 10^3/uL (0.0-0.2); Absolute Eosinophil Count 0.09 10^3/uL (0.0-0.7); Absolute Lymphocyte Count 0.82 10^3/uL (1.2-3.4); Absolute Monocyte Count 0.45 10^3/uL (0.1-0.8); Absolute Neutrophil Count 5.03 10^3/uL (1.2-6.7); Basophils % 0.5; Eosinophils % 1.4; HCT 35.3 % (36.0-46.0); HGB 11.2 g/dL (11.2-15.7); Immature Grans % 1.1; Lymphocytes % 12.6; MCHC 31.7 % (32.0-36.0); MCV 82 fL (80-95); MPV 11.6 fL (8.0-11.0); Monocytes % 6.9; Neutrophils % 77.5; Platelet Count 182 10^3/uL (130-400); RDW 15.5 % (11.7-14.6); RDW-SD 45.8 fL; WBC 6.49 10^3/uL (4.4-10.8)
[2022-05-10 19:39] LABS: ALT 22 U/L (14-59); AST 19 U/L (15-37); Albumin 3.1 g/dL (3.4-5.0); Alkaline Phosphatase 138 U/L (46-116); Anion Gap 7.9 mmol/L (3-11); BUN 19 mg/dL (7-18); Bilirubin, Total 0.3 mg/dL (0.2-1.0); CO2 23.1 mmol/L (21.0-32.0); Calcium 9.1 mg/dL (8.5-10.1); Chloride 104 mmol/L (98-107); Estimated GFR 61.36 (mL/min/1.73m2); Glucose 338 mg/dL (74-106); Magnesium 1.3 mg/dL (1.8-2.4); Potassium 4.3 mmol/L (3.5-5.1); Sodium 135 mmol/L (136-145); Total Protein 6.7 g/dL (6.4-8.2); Troponin I < 50 ng/L (<or=60)
[2022-05-10 19:43] LABS: Bilirubin Negative (Negative); Blood Small (Negative); Clarity Cloudy (Clear); Glucose 500 mg/dL (Negative); Ketones Negative (Negative); Leukocyte Esterase Small (Negative); Nitrite Negative (Negative); Specific Gravity 1.025 (1.005-1.025); Urobilinogen 0.2 EU/dL (Up TO 0.2)
[2022-05-10 19:52] LABS: ETHANOL BLOOD < 3.0 mg/dL (<10)
[2022-05-10 19:56] LABS: Bacteria Few HPF (Negative); Crystals Negative HPF (Negative); Epithelial Cells Moderate HPF (Negative)
[2022-05-10 19:57] LABS: C & S Indicated? No/Sq. Contamination; Casts Negative LPF (Negative); Mucus Negative (Negative)
[2022-05-10] MEDS: MAGNESIUM SULFATE 2 GM/50 ML BAG IVPB (20:10)
--- NOTE | 2022-05-10 20:18 | DI.VRAD_ITS ---
PROCEDURE INFORMATION: Exam: CT Head Without Contrast Exam date and time: 05/10/2022 7:42 PM Age: 67 years old Clinical indication: Weakness TECHNIQUE: Imaging protocol: Computed tomography of the head without contrast. Radiation optimization: All CT scans at this facility use at least one of these dose optimization techniques: automated exposure control; mA and/or kV adjustment per patient size (includes targeted exams where dose is matched to clinical indication); or iterative reconstruction. COMPARISON: CT HEAD WO 12/22/2021 3:17 AM FINDINGS: Brain: There is no acute intracranial hemorrhage, mass effect or midline shift. No large acute territorial infarct identified. There are patchy regions of hypodensity in the periventricular and subcortical white matter, likely on the basis of chronic microvascular ischemic disease. Cerebral ventricles: The ventricles and sulci are prominent in size, which is at least in part due to global cerebral volume loss. Paranasal sinuses: Visualized sinuses are unremarkable. No fluid levels. Mastoid air cells: There is trace fluid in the left mastoid air cells. Bones/joints: No acute fracture. Soft tissues: Unremarkable. IMPRESSION: No acute intracranial hemorrhage, mass effect or midline shift. Dictated and Authenticated by: Ilsa Streeter MD. Ordering:DHAVAL Ferguson MD
[2022-05-10] MEDS: Fosfomycin Tromethamine 3 GM PACKET PO (20:25)
--- NOTE | 2022-05-10 20:25 | DI.VRAD_ITS ---
PROCEDURE INFORMATION: Exam: XR Chest Exam date and time: 05/10/2022 7:50 PM Age: 67 years old Clinical indication: Weakness TECHNIQUE: Imaging protocol: Radiologic exam of the chest. Views: 1 view. COMPARISON: CR XR CHEST 1V IN DI DEPT 09/09/2021 3:48 PM FINDINGS: Limitations: The study is limited secondary to suboptimal positioning. Lungs: No definite evidence of consolidation. Pleural spaces: No pleural effusion. No pneumothorax. Heart/Mediastinum: No cardiomegaly. Bones/joints: The osseous structures are grossly intact. There is evidence of a right shoulder hemiarthroplasty. IMPRESSION: Slightly suboptimal evaluation without evidence of definite pathology. Dictated and Authenticated by: Ilsa Streeter MD. Ordering:DHAVAL Ferguson MD
--- NOTE | 2022-05-10 21:49 | ED.GENADUL_ITS ---
Discharge Plan Disposition Patient Disposition: Home Condition: Improving Discharge Details Clinical Impression: Generalized weakness, Wheelchair bound, Difficulty transferring from bed to wheelchair, Acute UTI, Diabetes type 2, uncontrolled Primary Care Provider: Mai Castelan ED Provider: Marty Reno Home Meds and New Rx's Prescriptions: Continued gabapentin 300 mg capsule 300 mg PO BID Qty: 180 3RF Rx Instructions: Dose increase 03/01/22 for chronic lumbar spine pain/spinal stenosis (DME) Air mattress See Rx Instructions .Route .MEDSUPPLY Qty: 1 0RF Rx Instructions: As directed (DME) Wheelchair (manual) regular See Rx Instructions .Route .MEDSUPPLY Qty: 1 0RF Rx Instructions: As directed; currently has Tracer EX2 model--please replace with similar; thank you. 03/01/22. budesonide-formoterol [Symbicort] 10.2 GM HFA aerosol inhaler 2 puff Inhalation BID Qty: 3 3RF Hold Instructions: Home Medication placed on hold at Doctor's office Label Comments: 04/01/17 Patient unsure of last dose. Maybe last Thur, but patient is noncompliant with medications CDG (DME) lancets [OneTouch UltraSoft Lancets] Misc See Dose Instructions .ROUTE .MEDSUPPLY Qty: 400 3RF Dose Instruction: As directed Rx Instructions: E11.4 tests QID to keep A1C below 8 (DME) blood sugar diagnostic Strip See Dose Instructions .ROUTE .MEDSUPPLY Qty: 400 3RF Dose Instruction: As directed Rx Instructions: One Touch Ultra,E 11.40 tests QID to keep A1C below 8 (DME) blood-glucose meter [OneTouch Ultra2 Meter] Kit See Rx Instructions .ROUTE .MEDSUPPLY Qty: 1 0RF Rx Instructions: to check BS qid for DM E11.9 management to keep A1c under 8 acetaminophen [Tylenol Arthritis Pain] 650 mg tablet extended release 1,300 mg PO Q12H Qty: 360 3RF Rx Instructions: Chronic pain--do not exceed 4G in 24 hours tylenol albuterol sulfate [ProAir HFA] 90 mcg/actuation HFA aerosol inhaler 1 - 2 puff Inhalation Q4H PRN Qty: 18 3RF insulin degludec [Tresiba FlexTouch U-200] 200 unit/mL (3 mL) insulin pen 40 unit subcut DAILY MDD 80 units Qty: 12 11RF Rx Instructions: Uncontrolled T2DM (stop Lantus) levothyroxine 50 mcg tablet 50 mcg PO DAILY Qty: 90 3RF metoprolol succinate 25 mg tablet extended release 24 hr 25 mg PO DAILY Qty: 90 3RF pantoprazole 40 mg tablet,delayed release (DR/EC) 40 mg PO DAILY Qty: 90 3RF rosuvastatin 10 mg tablet 10 mg PO DAILY Qty: 90 3RF Rx Instructions: Stop Simvastatin & take this instead for diabetes & cholesterol, 06/21/21 (DME) Novofine Autocover 30 gauge x 1/3 needle See Rx Instructions .ROUTE .MEDSUPPLY Qty: 100 3RF Rx Instructions: For DM E11.40 to maintain A1C <8, monitoring daily metformin 500 mg tablet extended release 24 hr 500 mg PO DAILY Qty: 90 3RF Rx Instructions: Diabetes--take with food naproxen 375 mg tablet 375 mg PO .daily in AM PRN (Reason: pain) Qty: 90 0RF Rx Instructions: Chronic pain Discharge Instructions Instructions: Urinary Tract Infection in Women (ED), Weakness (ED) Additional Instructions: Make sure you continue to eat an appropriate diet and take your medication as prescribed. It was noted that your blood sugar was elevated tonight so please take your normal nightly dose of insulin when you return home. If you develop any new or significant worsening of symptoms, have further falls, or further concerns please return to the emergency department for reassessment and reconsideration of admission as discussed. Please follow-up with your primary care provider if not improving in the next week Referrals: Mai Castelan NP [Primary Care Provider] - Discharge Data Discharge Date/Time-TO BE ENTERED AT DEPARTURE: 05/11/22 00:56 Medical Decision Making Patient presenting to the emergency department for chief complaint of weakness and difficulty urinating. EMS goes to patient's residence quite often for lift assist. They went twice today to the home and patient had reported 1 fall but did not come to the emergency department at that time. EMS convinced patient to come in due to significant weakness that is increased from patient's baseline. She does typically need assistance with transfer but today seem to have worsening weakness. Patient denies any pain or discomfort but does state some difficulty urinating. Physical exam shows somewhat detached female patient that is not wanting to interact much, generalized nonfocal weakness, normal cardiac exam, clear to diminished lung sounds but otherwise nonfocal exam. We will plan on checking patient's labs, chest x-ray, and head CT due to generalized weakness and fall. Review of patient's labs show an overall nondiagnostic CBC, CMP shows slightly low sodium at 135, BUN of 19, glucose 338, negative troponin, slightly elevated alk phos at 138, and albumin 3.1. Magnesium is 1.3. Urine does show no ketones but small amount of blood, leukocyte Estrace, and 10-20 WBCs. Because patient is having urinary symptoms we will treat with fosfomycin given history of nonmedication compliance. We will also replete patient's mag given that she is symptomatic with generalized weakness we will give 2 g IV. About assisted through patient receiving magnesium patient requesting to go home and stating she feels significantly better. Informed patient that we will need to finish our assessment and that we would need to ensure that she is safe to go home with her generalized weakness. We will continue to monitor. Review of CT imaging and radiologist interpretation shows no acute findings of intracranial process. Chest x-ray is limited but also shows no worrisome findings. Reassessed patient after completion of fluids and magnesium and patient is significantly more alert awake and oriented. Staff was able to transfer patient to wheelchair and patient states that that is at patient's baseline given that she is wheelchair-bound and does have difficulty transfering at baseline. Patient is continuing to request to go home and asking us to call her son. Did asked patient about her insulin use that seems sporadic. She does state that having high blood sugars is not out of the norm for her so she was encouraged to take her normal insulin dosing for the evening when she returns home. Patient discharged pending finding right availability for her to go home. After discussion of diagnosis and plan of care patient has no further needs, questions, or concerns and states clear understanding to return to the emergency department for any worsening symptoms. This documentation was generated using [employer]ipxing.comation system, please disregard any oddities of phrase or misspellings. Lab Data Lab results reviewed: Yes I reviewed the patient's lab results. HPI General Mode of arrival: EMS . Date/Time Provider Initiated Documentation: 05/10/22 18:10 . Limitations to Documentation: no limitations . Information obtained by: patient, EMS and RN notes reviewed . History of Present Illness 67 year old F presents to the emergency department with the chief complaint of Weakness and difficulty urinating, described as similar to prior episodes, Quality is described as other (Denies pain or discomfort), Patient started experiencing this day(s) (1) and it has been constant. No relieving factors improve symptom(s), No exacerbating factors reported . Patient notes no other symptoms.. Patient did receive the following treatments prior to arrival, none Related Data Home Medications Medication Instructions Recorded Confirmed budesonide-formoterol HFA 80 2 puff inhalation BID ##3 01/28/17 05/10/22 mcg-4.5 mcg/actuation aerosol inhaler (Symbicort) lancets ([employer]Touch UltraSoft #400 ea 11/03/20 01/07/22 Lancets) blood sugar diagnostic #400 ea 04/19/21 01/07/22 blood-glucose meter ([facility] ea 04/19/21 01/07/22 Ultra2 Meter kit) Air mattress #1 ea 06/15/21 01/07/22 acetaminophen 650 mg 1,300 mg PO Q12H #360 tabs 06/21/21 05/10/22 tablet,extended release (Tylenol Arthritis Pain) albuterol sulfate 90 mcg/actuation 1 - 2 puff inhalation Q4H PRN #18 06/21/21 05/10/22 aerosol inhaler (ProAir HFA) grams insulin degludec 200 unit/mL (3 40 unit (0.2 mL) subcut DAILY #12 06/21/21 05/10/22 mL) subcutaneous pen (Tresiba mL FlexTouch U-200 insulin) levothyroxine 50 mcg tablet 50 mcg PO DAILY #90 tab-caps 06/21/21 05/10/22 metoprolol succinate 25 mg 25 mg PO DAILY #90 tabs 06/21/21 05/10/22 tablet,extended release 24 hr pantoprazole 40 mg tablet,delayed 40 mg PO DAILY #90 tab-caps 06/21/21 05/10/22 release rosuvastatin 10 mg tablet 10 mg PO DAILY #90 tabs 06/21/21 05/10/22 pen needle, diabetic, safety 30 #100 ea 07/21/21 01/07/22 gauge x 1/3 ([employer]) Wheelchair (manual) #1 ea 03/01/22 03/01/22 metformin 500 mg tablet,extended 500 mg PO DAILY #90 tabs 03/07/22 05/10/22 release 24 hr naproxen 375 mg tablet 375 mg PO .daily in AM PRN pain 03/09/22 05/10/22 #90 tabs gabapentin 300 mg capsule 300 mg PO BID #180 caps 04/09/22 05/10/22 Previous Rx's Medication Instructions Recorded budesonide-formoterol HFA 80 2 puff inhalation BID ##3 01/28/17 mcg-4.5 mcg/actuation aerosol inhaler (Symbicort) lancets ([employer]Touch UltraSoft #400 ea 11/03/20 Lancets) blood sugar diagnostic #400 ea 04/19/21 blood-glucose meter ([employer]Touch #1 ea 04/19/21 Ultra2 Meter kit) Air mattress #1 ea 06/15/21 acetaminophen 650 mg 1,300 mg PO Q12H #360 tabs 06/21/21 tablet,extended release (Tylenol Arthritis Pain) albuterol sulfate 90 mcg/actuation 1 - 2 puff inhalation Q4H PRN #18 06/21/21 aerosol inhaler (ProAir HFA) grams insulin degludec 200 unit/mL (3 40 unit (0.2 mL) subcut DAILY #12 06/21/21 mL) subcutaneous pen (Tresiba mL FlexTouch U-200 insulin) levothyroxine 50 mcg tablet 50 mcg PO DAILY #90 tab-caps 06/21/21 metoprolol succinate 25 mg 25 mg PO DAILY #90 tabs 06/21/21 tablet,extended release 24 hr pantoprazole 40 mg tablet,delayed 40 mg PO DAILY #90 tab-caps 06/21/21 release rosuvastatin 10 mg tablet 10 mg PO DAILY #90 tabs 06/21/21 pen needle, diabetic, safety 30 #100 ea 07/21/21 gauge x 1/3 ([employer]) Wheelchair (manual) #1 ea 03/01/22 metformin 500 mg tablet,extended 500 mg PO DAILY #90 tabs 03/07/22 release 24 hr naproxen 375 mg tablet 375 mg PO .daily in AM PRN pain 03/09/22 #90 tabs gabapentin 300 mg capsule 300 mg PO BID #180 caps 04/09/22 Allergies Allergy/AdvReac Type Severity Reaction Status Date / Time bupropion HCl Allergy Severe seizures Verified 05/10/22 18:09 [From Wellbutrin] carvedilol [From Coreg] Allergy Mild Itching Verified 05/10/22 18:09 morphine AdvReac Unknown nausea Verified 05/10/22 18:09 General Stated Complaint: GenMedical DINESH: 3 Review of Systems Constitutional Constitutional: Denies chills, Denies fever(s), Reports malaise and Reports weakness Cardiovascular Cardiovascular: Denies chest pain and Denies dyspnea Respiratory Respiratory: Denies dyspnea Gastrointestinal Gastrointestinal: Denies abdominal pain, Denies diarrhea, Denies nausea and Denies vomiting Genitourinary Genitourinary: Reports as per HPI, Reports dysuria, Denies pelvic pain, Denies f lank pain and Denies vaginal discharge Musculoskeletal Musculoskeletal: Denies back pain Integumentary/Breasts Skin/Breast: Denies rash Neurologic Neurologic: Denies confusion and Reports weakness Psychiatric Psychiatric: Denies confusion PFSH All Active Problems (Updated 05/10/22 @ 23:10 by Marty Reno NP) Generalized weakness (Acute) Acute UTI (Acute) Pulmonary embolism (Chronic ~12/2021) Anticoagulation Urge incontinence (Chronic) Declines RX briefs Self-care deficit (Acute) Bedbound (Acute) gets up with WC to BR Recurrent falls (Chronic) Difficulty transferring from bed to wheelchair (Chronic) DME hospital bed has helped Difficulty transferring from toilet to wheelchair (Chronic) Steph investigating commode Wheelchair bound (Chronic) no falls since starting using WC permanent need severe diabetic nephropathy needs more adaptive equipment in the home Cognitive attention deficit (Chronic) needs multiple repetitions of information Diabetes type 2, uncontrolled (Chronic) though she has had education over the years, still seems not to understand carb counting ideally needs someone to educate son as he buys her food also needs hands-on teaching with nutrition labels, etc. 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) Goal A1c < 7.5% Schein, neuropathy; Charcot's foot 03/19/13 [employer] Spinal stenosis of lumbar region with neurogenic claudication (Chronic 12/08/13) 04/13/2013 MRI Lumbar Spine: Facet arthropathy, DJD, L4-5, L5-S1 central spinal and neural foraminal stenosis Neurosurgery referral, but not a surgical candidate [facility] chronic pain service Chronic Pain [facility] Pain Center consult 10/26/15 [facility] consult 03/04/17 (Sanket Sawant MD) Other and unspecified hyperlipidemia (Chronic 08/14/12) Esophageal reflux disease (Chronic 07/24/11) UPPER GI SERIES 11/14/2012, MOD HIATAL HERNIA SEVERE GERD Coronary artery disease involving inaja coronary artery of inaja heart (Chronic) INFERIOR NE 1996, 100% RCA occlusion; large inf defect on perfusion scan, dr Fair Chronic kidney disease, stage III (moderate) (Chronic 08/14/12) 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 Guerra DJD of right shoulder (01/01/13) 12/2012 x-ray severe DJD glenohumeral joint Dr. Guerra; not a surgical candidate for replacement DNI (do not intubate) DNR (do not resuscitate) Encounter for hospice care Episode of seizures in July 2012 Goals of care, counseling/discussion DNR/DNI COLST done wants to stay home may need new agent if/when Steph moves out of state as planned Incarcerated umbilical hernia (09/06/15) Iron deficiency anemia Mass of both parotid glands Abnormal CT 08/2019 Mild pulmonary hypertension Nausea and vomiting (08/01/14) a. previous history of possible marijuana induced hyperemesis Olecranon bursitis, left elbow Resolved with appropriate DME Osteoarthritis of left elbow Palliative care patient Perirectal abscess With associated hospitalization 2019 POLST (Physician Orders for Life-Sustaining Treatment) signed 06/01/20 RLS (restless legs syndrome) Tinea corporis Surgical History Appendectomy Childhood surgery, no date given by pt.HE Hemiarthroplasty (06/13/15) Dr Guerra R shoulder History of carpal tunnel release of both wrists (~05/2012) Hx of umbilical hernia repair (09/06/15) Incarcerated umbilical hernia repair (09/06/15) Tonsillectomy childhood surgery, no date given by pt.HE Family History Mother , at 73 yo from dementia Dementia Diabetes Stroke Blind Father , MVA (truck) accident at 45yo No problems noted. Sister Age: 62 Thyroid cancer Brother , from complications of diabetes age 60 Diabetes Brother Diabetes Heart disease Colon cancer Ulcerative colitis Sister Obesity Prediabetes Arthritis Son Substance abuse attends [facility] clinic; h/o heroin and other opioid addiction Other FH: mental illness Social History Smoking/Tobacco Use Status: Current every day Tobacco Type: cigarettes Tobacco: How many years used: 54 Quit status: not considering quitting Counseling given: counseling >3 minutes Smoking risk assessment performed?: Yes Alcohol Intake: former Drug use: Daily Substance use type: marijuana Counseling given: Yes Details: pt states she smokes marijuana on a daily basis Adopted: No Caregiver/Support person: Yes Foster care: No Household members: children Housing: house Number of Children: 1 number of grandchildren: 0 Communication Needs: Corrective Lenses Education Level: high school Details: didn't finish sophomore year Do you need help understanding health information?: Always 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; 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 Pets and animals: Yes Current gender identity: female What is your relationship status?: How often do you talk on the phone with friends or family?: three or more times per week How often do you get together with friends or relatives?: twice per week Panel score (0-1 are the most socially isolated patients): 1 What type of physical activity do you participate in: none and wheelchair-bound Special eliana needs: No Seatbelt use: sometimes Working smoke detector in home: Yes Fire extinguisher in home: Yes Do you feel safe at home: Yes (Most of the time, yes I feel better if my son or somebody is there) Do you feel safe in your relationship?: Yes Additional Social history: Patient reports she lives with her son Exam Const General: cooperative, no acute distress and not ill appearing Orientation: alert, awake and oriented x3 Resp Effort & Inspection: normal respiratory effort, able to speak in complete sentences and no respiratory distress Auscultation: clear to auscultation bilaterally Cardio Rate: regular rate Rhythm: regular rhythm Heart Sounds: S1 normal and S2 normal Skin General skin exam: no rashes or lesions noted Neuro General: patient alert, patient awake, patient oriented x3, moves all extremities and no focal motor deficits Motor: other (Generalized weakness) Sensory Exam: no sensory deficits noted Course Vital Signs Vital signs: Vital Signs Temperature 36.6 C 05/10/22 17:55 Pulse 83 05/10/22 17:55 Respiratory Rate 14 05/10/22 17:55 Blood Pressure 127/65 05/10/22 17:55 Pulse Oximetry 93 05/10/22 17:55 Temperature 36.6 C 05/10/22 17:55 Temperature Source Oral 05/10/22 17:55 Pulse 89 05/10/22 20:30 Pulse 87 05/10/22 20:50 Respiratory Rate 25 H 05/10/22 20:50 Respiratory Effort Non-Labored 05/10/22 18:05 Respiratory Depth Normal 05/10/22 18:05 Respiratory Pattern Normal 05/10/22 18:05 Blood Pressure 126/73 05/10/22 20:30 Blood Pressure Mean 86 05/10/22 20:30 Blood Pressure Position Supine 05/10/22 17:55 Pulse Oximetry 93 05/10/22 20:50 Oxygen Delivery Method Room Air 05/10/22 17:55 Oxygen Flow Rate 0 05/10/22 17:55 Lab/Test Results Lab/Test Results: Laboratory Tests Range/Units 05/10/22 05/10/22 05/10/22 19:14 19:14 19:30 WBC (4.4-10.8) 10^3/uL 6.49 RBC (3.93-5.22) 10^6/uL 4.30 Hgb (11.2-15.7) g/dL 11.2 Hct (36.0-46.0) % 35.3 L MCV (80-95) fL 82 MCH (27.0-33.0) pg 26.0 L MCHC (32.0-36.0) % 31.7 L RDW (11.7-14.6) % 15.5 H Plt Count (130-400) 10^3/uL 182 MPV (8.0-11.0) fL 11.6 H Immature Gran % 1.1 Neutrophils % 77.5 Lymphocytes % 12.6 Monocytes % 6.9 Eosinophils % 1.4 Basophils % 0.5 Nucleated RBC % (0.0-0.3) % 0.0 Absolute Neutrophils (1.2-6.7) 10^3/uL 5.03 Absolute Lymphocytes (1.2-3.4) 10^3/uL 0.82 L Absolute Monocytes (0.1-0.8) 10^3/uL 0.45 Absolute Eosinophils (0.0-0.7) 10^3/uL 0.09 Absolute Basophils (0.0-0.2) 10^3/uL 0.03 Sodium (136-145) mmol/L 135 L Potassium (3.5-5.1) mmol/L 4.3 Chloride (98-107) mmol/L 104 Carbon Dioxide (21.0-32.0) mmol/L 23.1 Anion Gap (3-11) mmol/L 7.9 BUN (7-18) mg/dL 19 H Creatinine (0.55-1.02) mg/dL 1.0 Est GFR (CKD-EPI 2020) (mL/min/1.73m2) 61.36 Glucose (74-106) mg/dL 338 H Calcium (8.5-10.1) mg/dL 9.1 Magnesium (1.8-2.4) mg/dL 1.3 L Total Bilirubin (0.2-1.0) mg/dL 0.3 AST (15-37) U/L 19 ALT (14-59) U/L 22 Alkaline Phosphatase (46-116) U/L 138 H Troponin I (<or=60) ng/L < 50 Total Protein (6.4-8.2) g/dL 6.7 Albumin (3.4-5.0) g/dL 3.1 L Urine Color (Yellow) Yellow Urine Clarity (Clear) Cloudy Urine pH (5-8) 6.0 Ur Specific Colbert (1.005-1.025) 1.025 Urine Protein (Negative) mg/dL 30 H Urine Ketones (Negative) mg/dL Negative Urine Blood (Negative) Small H Urine Nitrite (Negative) Negative Urine Bilirubin (Negative) Negative Urine Urobilinogen (Up TO 0.2) EU/dL 0.2 Ur Leukocyte Esterase (Negative) Small H Urine RBC (0-2) HPF 5-10 H Urine WBC (0-5) HPF 10-20 H Ur Epithelial Cells (Negative) HPF Moderate Urine Crystals (Negative) HPF Negative Urine Bacteria (Negative) HPF Few Urine Casts (Negative) LPF Negative Urine Mucus (Negative) Negative Ur Culture Indicated? No/Sq. Contamination Urine Glucose (Negative) mg/dL 500 H Ethyl Alcohol (<10) mg/dL < 3.0
[2022-05-11 00:55] VITALS: BP 116/78; PULSE 99; RESP 25; TEMP 36.6; O2SAT 95
== END 2022-05-11 00:56 | disposition home or self-care (01) ==
LOC: ER 23:22
PROVIDERS: Emergency Provider Nurse Practitioner Family; PCP Nurse Practitioner Adult Health
DX: N39.0 Urinary tract infection, site not specified (principal); E11.9 Type 2 diabetes mellitus without complications; R53.1 Weakness; R26.2 Difficulty in walking, not elsewhere classified; E87.1 Hypo-osmolality and hyponatremia; R74.8 Abnormal levels of other serum enzymes; Z79.4 Long term (current) use of insulin; Z79.84 Long term (current) use of oral hypoglycemic drugs; Z90.49 Acquired absence of other specified parts of digestive tract; Z79.899 Other long term (current) drug therapy
CPT/HCPCS: 36415; 80053; 96361; 96365; 96366; 99284; 70450; 71045; 80320; 81003; 81015; 83735; 84484; 85025; J3490

== ENCOUNTER 2022-05-22 13:33 | Emergency (ER) | payer OTHER, MEDICAID, SELFPAY ==
[2022-05-22 13:41] VITALS: BP 134/87; PULSE 94; RESP 22; TEMP 36.8; O2SAT 95
--- NOTE | 2022-05-22 14:00 | DI.RAD_ITS ---
Exam(s) XR FOOT RT COMPLETE EXAM: XR FOOT RT COMPLETE CLINICAL HISTORY: second digit cellulitis. TECHNIQUE: 2D digital imaging was performed of the right foot. Three images were obtained. AP, obl ique and lateral views were obtained. COMPARISON: CR XR FOOT RT COMPLETE from 03/15/2021 FINDINGS: BONES: There are old healed fractures of the 3rd and 4th metatarsals. Destructive changes are seen o f the distal phalanx of the 2nd toe. The bone is fragmented. There is overlying soft tissue swellin g present. There is a plantar calcaneal spur. JOINTS: No dislocation present. SOFT TISSUE: There is soft tissue swelling of the foot particularly anteriorly. IMPRESSION: Fragmentation of the distal phalanx of the 2nd toe. There is associated soft tissue swelling. Corti ely margins at the terminal tuft are poorly defined. Differential considerations include infection/o steomyelitis versus trauma. Please correlate clinically. DATA REPOSITORY: RADIATION DOSE DELIVERED:
--- NOTE | 2022-05-22 14:11 | W.ED.GENAD ---
Discharge Plan Disposition Patient Disposition: Home Condition: Stable Discharge Details Clinical Impression: Osteomyelitis of second toe of right foot, Cellulitis of toe Primary Care Provider: Mai Castelan ED Provider: Missael Josue Home Meds and New Rx's Prescriptions: New clindamycin HCl 300 mg capsule 600 mg PO TID 56 Days Qty: 336 0RF No Action gabapentin 300 mg capsule 300 mg PO BID Qty: 180 3RF Rx Instructions: Dose increase 03/01/22 for chronic lumbar spine pain/spinal stenosis (DME) Air mattress See Rx Instructions .Route .MEDSUPPLY Qty: 1 0RF Rx Instructions: As directed (DME) Wheelchair (manual) regular See Rx Instructions .Route .MEDSUPPLY Qty: 1 0RF Rx Instructions: As directed; currently has Tracer EX2 model--please replace with similar; thank you. 03/01/22. budesonide-formoterol [Symbicort] 10.2 GM HFA aerosol inhaler 2 puff Inhalation BID Qty: 3 3RF Hold Instructions: Home Medication placed on hold at Doctor's office Label Comments: 04/01/17 Patient unsure of last dose. Maybe last Thur, but patient is noncompliant with medications CDG (DME) lancets [OneTouch UltraSoft Lancets] Misc See Dose Instructions .ROUTE .MEDSUPPLY Qty: 400 3RF Dose Instruction: As directed Rx Instructions: E11.4 tests QID to keep A1C below 8 (DME) blood sugar diagnostic Strip See Dose Instructions .ROUTE .MEDSUPPLY Qty: 400 3RF Dose Instruction: As directed Rx Instructions: One Touch Ultra,E 11.40 tests QID to keep A1C below 8 (DME) blood-glucose meter [OneTouch Ultra2 Meter] Kit See Rx Instructions .ROUTE .MEDSUPPLY Qty: 1 0RF Rx Instructions: to check BS qid for DM E11.9 management to keep A1c under 8 acetaminophen [Tylenol Arthritis Pain] 650 mg tablet extended release 1,300 mg PO Q12H Qty: 360 3RF Rx Instructions: Chronic pain--do not exceed 4G in 24 hours tylenol albuterol sulfate [ProAir HFA] 90 mcg/actuation HFA aerosol inhaler 1 - 2 puff Inhalation Q4H PRN Qty: 18 3RF insulin degludec [Tresiba FlexTouch U-200] 200 unit/mL (3 mL) insulin pen 40 unit subcut DAILY MDD 80 units Qty: 12 11RF Rx Instructions: Uncontrolled T2DM (stop Lantus) levothyroxine 50 mcg tablet 50 mcg PO DAILY Qty: 90 3RF metoprolol succinate 25 mg tablet extended release 24 hr 25 mg PO DAILY Qty: 90 3RF pantoprazole 40 mg tablet,delayed release (DR/EC) 40 mg PO DAILY Qty: 90 3RF rosuvastatin 10 mg tablet 10 mg PO DAILY Qty: 90 3RF Rx Instructions: Stop Simvastatin & take this instead for diabetes & cholesterol, 06/21/21 (DME) Novofine Autocover 30 gauge x 1/3 needle See Rx Instructions .ROUTE .MEDSUPPLY Qty: 100 3RF Rx Instructions: For DM E11.40 to maintain A1C <8, monitoring daily metformin 500 mg tablet extended release 24 hr 500 mg PO DAILY Qty: 90 3RF Rx Instructions: Diabetes--take with food naproxen 375 mg tablet 375 mg PO .daily in AM PRN (Reason: pain) Qty: 90 0RF Rx Instructions: Chronic pain Discharge Instructions Instructions: Cellulitis (ED), Osteomyelitis (ED) Additional Instructions: Please follow-up with podiatry this week to have your toe reassessed. If symptoms are worsening such as worsening pain swelling redness spreading redness signs of systemic infection such as fever chills or other abnormal symptoms please return to the emergency department as this means your antibiotics are likely not working. Medical Decision Making 67-year-old female history of diabetes presents with painful erythematous right second digit of lower extremity, shallow ulceration lateral aspect of toe, warm well perfused extremity sensate mobile, nontoxic afebrile. Likely localized cellulitis lower suspicion for osteomyelitis however given age diabetes will obtain screening x-ray of foot, will start patient on clindamycin. Likely follow-up with primary prison care instructions and close reassessment. 16: 17 x-ray showing cortical margins at the terminal tuft poorly defined and fragmentation of the distal phalanx of the second toe likely consistent with early osteomyelitis. Patient started on oral clindamycin will be placed on multiweek regimen. Will be given immediate follow-up with podiatry for close wound checks and possible debridement as needed. Given strict return precautions for worsening symptoms. HPI General Date/Time Provider Initiated Documentation: 05/22/22 14:08. HPI Narrative: 67-year-old female presents with painful erythematous right second digit of her lower extremity over the past several days. Denies fevers or chills denies systemic signs of illness patient does have diabetes. Related Data Home Medications Medication Instructions Recorded Confirmed budesonide-formoterol HFA 80 2 puff inhalation BID ##3 01/28/17 05/10/22 mcg-4.5 mcg/actuation aerosol inhaler (Symbicort) lancets (ACS ClothingTouch UltraSoft #400 ea 11/03/20 01/07/22 Lancets) blood sugar diagnostic #400 ea 04/19/21 01/07/22 blood-glucose meter (Tuniiuch #1 ea 04/19/21 01/07/22 Ultra2 Meter kit) Air mattress #1 ea 06/15/21 01/07/22 acetaminophen 650 mg 1,300 mg PO Q12H #360 tabs 06/21/21 05/10/22 tablet,extended release (Tylenol Arthritis Pain) albuterol sulfate 90 mcg/actuation 1 - 2 puff inhalation Q4H PRN #18 06/21/21 05/10/22 aerosol inhaler (ProAir HFA) grams insulin degludec 200 unit/mL (3 40 unit (0.2 mL) subcut DAILY #12 06/21/21 05/10/22 mL) subcutaneous pen (Tresiba mL FlexTouch U-200 insulin) levothyroxine 50 mcg tablet 50 mcg PO DAILY #90 tab-caps 06/21/21 05/10/22 metoprolol succinate 25 mg 25 mg PO DAILY #90 tabs 06/21/21 05/10/22 tablet,extended release 24 hr pantoprazole 40 mg tablet,delayed 40 mg PO DAILY #90 tab-caps 06/21/21 05/10/22 release rosuvastatin 10 mg tablet 10 mg PO DAILY #90 tabs 06/21/21 05/10/22 pen needle, diabetic, safety 30 #100 ea 07/21/21 01/07/22 gauge x 1/3 (Novofine Autocover) Wheelchair (manual) #1 ea 03/01/22 03/01/22 metformin 500 mg tablet,extended 500 mg PO DAILY #90 tabs 03/07/22 05/10/22 release 24 hr naproxen 375 mg tablet 375 mg PO .daily in AM PRN pain 03/09/22 05/10/22 #90 tabs gabapentin 300 mg capsule 300 mg PO BID #180 caps 04/09/22 05/10/22 clindamycin HCl 300 mg capsule 600 mg PO TID 8 weeks #336 caps 05/22/22 Previous Rx's Medication Instructions Recorded budesonide-formoterol HFA 80 2 puff inhalation BID ##3 01/28/17 mcg-4.5 mcg/actuation aerosol inhaler (Symbicort) lancets (ACS ClothingTouch UltraSoft #400 ea 11/03/20 Lancets) blood sugar diagnostic #400 ea 04/19/21 blood-glucose meter (Tuniiuch #1 ea 04/19/21 Ultra2 Meter kit) Air mattress #1 ea 06/15/21 acetaminophen 650 mg 1,300 mg PO Q12H #360 tabs 06/21/21 tablet,extended release (Tylenol Arthritis Pain) albuterol sulfate 90 mcg/actuation 1 - 2 puff inhalation Q4H PRN #18 06/21/21 aerosol inhaler (ProAir HFA) grams insulin degludec 200 unit/mL (3 40 unit (0.2 mL) subcut DAILY #12 06/21/21 mL) subcutaneous pen (Tresiba mL FlexTouch U-200 insulin) levothyroxine 50 mcg tablet 50 mcg PO DAILY #90 tab-caps 06/21/21 metoprolol succinate 25 mg 25 mg PO DAILY #90 tabs 06/21/21 tablet,extended release 24 hr pantoprazole 40 mg tablet,delayed 40 mg PO DAILY #90 tab-caps 06/21/21 release rosuvastatin 10 mg tablet 10 mg PO DAILY #90 tabs 06/21/21 pen needle, diabetic, safety 30 #100 ea 07/21/21 gauge x 1/3 (Novofine Autocover) Wheelchair (manual) #1 ea 03/01/22 metformin 500 mg tablet,extended 500 mg PO DAILY #90 tabs 03/07/22 release 24 hr naproxen 375 mg tablet 375 mg PO .daily in AM PRN pain 03/09/22 #90 tabs gabapentin 300 mg capsule 300 mg PO BID #180 caps 11/28/22 clindamycin HCl 300 mg capsule 600 mg PO TID 8 weeks #336 caps 05/22/22 Allergies Allergy/AdvReac Type Severity Reaction Status Date / Time bupropion HCl Allergy Severe seizures Verified 05/10/22 18:09 [From Wellbutrin] carvedilol [From Coreg] Allergy Mild Itching Verified 05/10/22 18:09 morphine AdvReac Unknown nausea Verified 05/10/22 18:09 General Stated Complaint: Cellulitis DINESH: 3 Review of Systems Narrative: Review of Systems Constitutional: negative Eyes: negative ENT: negative Cardiovascular: negative Respiratory: negative Gastrointestinal: negative : negative Musculoskeletal: negative Skin: cellulitis of toe Neurologic: negative Psych: negative PFSH All Active Problems (Updated 05/22/22 @ 16:20 by Missael Josue MD) Generalized weakness (Acute) Acute UTI (Acute) Osteomyelitis of second toe of right foot (Acute) Cellulitis of toe (Acute) Pulmonary embolism (Chronic ~12/2021) Anticoagulation Urge incontinence (Chronic) Declines RX briefs Self-care deficit (Acute) Bedbound (Acute) gets up with WC to BR Recurrent falls (Chronic) Difficulty transferring from bed to wheelchair (Chronic) DME hospital bed has helped Difficulty transferring from toilet to wheelchair (Chronic) Steph investigating commode Wheelchair bound (Chronic) no falls since starting using WC permanent need severe diabetic nephropathy needs more adaptive equipment in the home Cognitive attention deficit (Chronic) needs multiple repetitions of information Diabetes type 2, uncontrolled (Chronic) though she has had education over the years, still seems not to understand carb counting ideally needs someone to educate son as he buys her food also needs hands-on teaching with nutrition labels, etc. 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) Goal A1c < 7.5% Schein, neuropathy; Charcot's foot 03/19/13 [employer] Spinal stenosis of lumbar region with neurogenic claudication (Chronic 12/08/13) 04/13/2013 MRI Lumbar Spine: Facet arthropathy, DJD, L4-5, L5-S1 central spinal and neural foraminal stenosis Neurosurgery referral, but not a surgical candidate [facility] chronic pain service Chronic Pain [facility] Pain Center consult 10/26/15 [facility] [place] 03/04/17 (Sanket Sawant MD) Other and unspecified hyperlipidemia (Chronic 08/14/12) Esophageal reflux disease (Chronic 07/24/11) UPPER GI SERIES 11/14/2012, MOD HIATAL HERNIA SEVERE GERD Coronary artery disease involving yurok coronary artery of yurok heart (Chronic) INFERIOR AR 1996, 100% RCA occlusion; large inf defect on perfusion scan, dr Fair Chronic kidney disease, stage III (moderate) (Chronic 08/14/12) Cortical atrophy R kidney on CT 07/2014; multiple cysts Cardiomyopathy (Chronic) Dr Fair, EF 45% Jun 2014 ECHO (h/o much worse) 10/2016 ECHO: EF 40-45% 10/2016 MPI: no acute, but persistent old infarct COPD, mild (Chronic 07/02/17) PFTs Abdominal aortic aneurysm (Chronic 11/27/12) Identified 10/31/12 CT abd-pelvis; 4cm; stable 4.1 cm 07/2014 CT, 4.3cm 11/2016, 5.5cm 03/04/17 ([facility] 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 Guerra DJD of right shoulder (01/01/13) 12/2012 x-ray severe DJD glenohumeral joint Dr. Guerra; not a surgical candidate for replacement DNI (do not intubate) DNR (do not resuscitate) Encounter for hospice care Episode of seizures in July 2012 Goals of care, counseling/discussion DNR/DNI COLST done wants to stay home may need new agent if/when Steph moves out of state as planned Incarcerated umbilical hernia (09/06/15) Iron deficiency anemia Mass of both parotid glands Abnormal CT 08/2019 Mild pulmonary hypertension Nausea and vomiting (08/01/14) a. previous history of possible marijuana induced hyperemesis Olecranon bursitis, left elbow Resolved with appropriate DME Osteoarthritis of left elbow Palliative care patient Perirectal abscess With associated hospitalization 2019 POLST (Physician Orders for Life-Sustaining Treatment) signed 06/01/20 RLS (restless legs syndrome) Tinea corporis Surgical History Appendectomy Childhood surgery, no date given by pt.HE Hemiarthroplasty (06/13/15) Dr Charlie Gallardo shoulder History of carpal tunnel release of both wrists (~05/2012) Hx of umbilical hernia repair (09/06/15) Incarcerated umbilical hernia repair (09/06/15) Tonsillectomy childhood surgery, no date given by pt.HE Family History Mother , at 73 yo from dementia Dementia Diabetes Stroke Blind Father , MVA (truck) accident at 45yo No problems noted. Sister Age: 62 Thyroid cancer Brother , from complications of diabetes age 60 Diabetes Brother Diabetes Heart disease Colon cancer Ulcerative colitis Sister Obesity Prediabetes Arthritis Son Substance abuse attends [facility]; h/o heroin and other opioid addiction Other FH: mental illness Social History Smoking/Tobacco Use Status: Current every day Tobacco Type: cigarettes Tobacco: How many years used: 54 Quit status: not considering quitting Counseling given: counseling >3 minutes Smoking risk assessment performed?: Yes Alcohol Intake: former Drug use: Daily Substance use type: marijuana Counseling given: Yes Details: pt states she smokes marijuana on a daily basis x1 per day Adopted: No Caregiver/Support person: Yes Foster care: No Household members: children Housing: house Number of Children: 1 number of grandchildren: 0 Communication Needs: Corrective Lenses Education Level: high school Details: didn't finish sophomore year Do you need help understanding health information?: Always 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; 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 Pets and animals: Yes Current gender identity: female What is your relationship status?: How often do you talk on the phone with friends or family?: three or more times per week How often do you get together with friends or relatives?: twice per week Panel score (0-1 are the most socially isolated patients): 1 What type of physical activity do you participate in: none and wheelchair-bound Special eliana needs: No Seatbelt use: sometimes Working smoke detector in home: Yes Fire extinguisher in home: Yes Do you feel safe at home: Yes (Most of the time, yes I feel better if my son or somebody is there) Do you feel safe in your relationship?: Yes Additional Social history: Patient reports she lives with her son Exam Narrative Exam Narrative: Physical Examination General: alert, awake, cooperative, resting comfortably, no acute distress Skin: no lesions, rashes or trauma appreciated Neuro: AAOx3, normal speech, moving all extremities Extremities: Erythematous second digit of right lower extremity slightly tender to the touch, ulceration to lateral aspect of toe, sensation intact motor intact, warm well perfused extremity Course Vital Signs Vital signs: Vital Signs Temperature 36.8 C 05/22/22 13:41 Pulse 94 H 05/22/22 13:41 Respiratory Rate 22 05/22/22 13:41 Blood Pressure 134/87 05/22/22 13:41 Pulse Oximetry 95 05/22/22 13:41 Temperature 36.8 C 05/22/22 13:41 Temperature Source Tympanic 05/22/22 13:41 Pulse 94 H 05/22/22 13:41 Respiratory Rate 22 05/22/22 13:41 Respiratory Effort Non-Labored 05/22/22 13:49 Blood Pressure 134/87 05/22/22 13:41 Blood Pressure Position Supine 05/22/22 13:41 Pulse Oximetry 95 05/22/22 13:41 Oxygen Delivery Method Room Air 05/22/22 13:41 Oxygen Flow Rate 0 05/22/22 13:41 Pain Level 7 05/22/22 13:41
[2022-05-22] MEDS: Clindamycin 150 MG CAP 450 MG PO (14:20)
--- NOTE | 2022-05-22 16:30 | NUR.NOTE ---
Called to make arrangements for RCT, Dr. Vuong requested a consult [facility] pediat[facility] as well, care management form completed. CLB
== END 2022-05-22 16:35 | disposition home or self-care (01) ==
PROVIDERS: Emergency Provider Emergency Medicine; PCP Nurse Practitioner Adult Health
DX: M86.8X8 Other osteomyelitis, other site (principal); L03.031 Cellulitis of right toe; E11.9 Type 2 diabetes mellitus without complications
CPT/HCPCS: 99283; 73630

== ENCOUNTER 2022-05-27 22:47 | Emergency (ER) | payer OTHER, MEDICAID, SELFPAY ==
[2022-05-27 22:48] VITALS: BP 107/53; PULSE 88; RESP 18; TEMP 36.7; O2SAT 94
[2022-05-27 23:15] VITALS: BP 115/54; PULSE 86; O2SAT 94
[2022-05-27 23:30] VITALS: BP 100/43; PULSE 86; O2SAT 94
--- NOTE | 2022-05-27 23:30 | DI.CT_ITS ---
Exam(s) CT HEAD CERVICAL SPINE WO EXAM: CT HEAD CERVICAL SPINE WO CLINICAL HISTORY: fall, hit head, r/o intracranial inj/fx. TECHNIQUE: Imaging Protocol: Axial computed tomography images with coronal and sagittal reformatted images were created and reviewed COMPARISON: CT CT HEAD WO from 05/10/2022 FINDINGS: The examination is limited due to patient motion artifact. CT Head: Ventricles and Extra axial spaces: Normal in size and morphology for the patient's age. Hemorrhage: None. Cerebral parenchyma: There is no acute territorial infarct. There are areas of decreased attenuation in the white matter consistent with small vessel ischemic disease. There are old lacunar infarcts p resent. Midline shift: None. Brainstem/Cerebellum: Normal. Calvarium: Normal. Visualized Paranasal sinuses/Mastoids: Clear. Soft Tissues: Unremarkable. CT Cervical Spine: Bones: No acute fracture or subluxation. Multilevel degenerative changes are present. Soft Tissues: Unremarkable. Lung Apices: Clear. IMPRESSION: 1. No acute intracranial process. 2. No acute fracture or subluxation in the cervical spine. RADIATION DOSE DELIVERED: 1,304.21mGy.cm Total DLP DATA REPOSITORY: All CT scans at this facility are submitted to the National Radiology Data Registry (NRDR) Dose Index Registry (DIR) with the [employer] (A[employer]). RADIATION OPTIMIZATION: All CT scans at this facility use at least one of these dose optimization te chniques: automated exposure control; mA and/or kV adjustment per patient size (includes targeted exa ms where dose is matched to clinical indication); or iterative reconstruction.
--- NOTE | 2022-05-27 23:30 | DI.CT_ITS ---
Exam(s) CT THORACIC SPINE WO EXAM: CT THORACIC SPINE WO CLINICAL HISTORY: fall, tender midline, r/o fx. TECHNIQUE: Imaging Protocol: Axial computed tomography images with coronal and sagittal reformatted images were created and reviewed. COMPARISON: CR,XR XR CHEST 1V IN DI DEPT from 05/10/2022 FINDINGS: The examination is limited due to patient motion artifact. Evaluation of the visualized ribs is limi dena secondary to the patient motion. A right shoulder replacement is partially imaged on this examin ation. Bones: No fractures or dislocations are seen. The alignment of the spine is normal including the cerv icothoracic junction. There are degenerative changes present throughout the thoracic spine. Soft tissues: There is a hiatal hernia present. There is a 4.3 by 4.5 cm abdominal aortic aneurysm. Coronary artery calcifications are present. There are bilateral renal cysts. No large disk herniat ions are identified. IMPRESSION: No acute fracture or subluxation in the thoracic spine. RADIATION DOSE DELIVERED: 1,113.82mGy.cm Total DLP 1,113.82mGy.cm Total DLP DATA REPOSITORY: All CT scans at this facility are submitted to the National Radiology Data Registry (NRDR) Dose Index Registry (DIR) with the [employer] (ACR). RADIATION OPTIMIZATION: All CT scans at this facility use at least one of these dose optimization te chniques: automated exposure control; mA and/or kV adjustment per patient size (includes targeted exa ms where dose is matched to clinical indication); or iterative reconstruction.
--- NOTE | 2022-05-27 23:40 | ED.GENADUL_ITS ---
Discharge Plan Disposition Patient Disposition: Home Condition: Stable Discharge Details Clinical Impression: Fall at home, Closed head injury, Hyperglycemia Primary Care Provider: Mai Castelan ED Provider: Rosalie Barclay Home Meds and New Rx's Prescriptions: Continued gabapentin 300 mg capsule 300 mg PO BID Qty: 180 3RF Rx Instructions: Dose increase 03/01/22 for chronic lumbar spine pain/spinal stenosis (DME) Air mattress See Rx Instructions .Route .MEDSUPPLY Qty: 1 0RF Hold Instructions: Home Medication placed on hold at Doctor's office Rx Instructions: As directed (DME) Wheelchair (manual) regular See Rx Instructions .Route .MEDSUPPLY Qty: 1 0RF Rx Instructions: As directed; currently has Tracer EX2 model--please replace with similar; thank you. 03/01/22. budesonide-formoterol [Symbicort] 10.2 GM HFA aerosol inhaler 2 puff Inhalation BID Qty: 3 3RF Hold Instructions: Home Medication placed on hold at Doctor's office Label Comments: 04/01/17 Patient unsure of last dose. Maybe last Thur, but patient is noncompliant with medications CDG (DME) lancets [OneTouch UltraSoft Lancets] Misc See Dose Instructions .ROUTE .MEDSUPPLY Qty: 400 3RF Dose Instruction: As directed Rx Instructions: E11.4 tests QID to keep A1C below 8 (DME) blood sugar diagnostic Strip See Dose Instructions .ROUTE .MEDSUPPLY Qty: 400 3RF Dose Instruction: As directed Rx Instructions: One Touch Ultra,E 11.40 tests QID to keep A1C below 8 (DME) blood-glucose meter [OneTouch Ultra2 Meter] Kit See Rx Instructions .ROUTE .MEDSUPPLY Qty: 1 0RF Rx Instructions: to check BS qid for DM E11.9 management to keep A1c under 8 acetaminophen [Tylenol Arthritis Pain] 650 mg tablet extended release 1,300 mg PO Q12H Qty: 360 3RF Rx Instructions: Chronic pain--do not exceed 4G in 24 hours tylenol albuterol sulfate [ProAir HFA] 90 mcg/actuation HFA aerosol inhaler 1 - 2 puff Inhalation Q4H PRN Qty: 18 3RF insulin degludec [Tresiba FlexTouch U-200] 200 unit/mL (3 mL) insulin pen 40 unit subcut DAILY MDD 80 units Qty: 12 11RF Rx Instructions: Uncontrolled T2DM (stop Lantus) (DME) Novofine Autocover 30 gauge x 1/3 needle See Rx Instructions .ROUTE .MEDSUPPLY Qty: 100 3RF Rx Instructions: For DM E11.40 to maintain A1C <8, monitoring daily metformin 500 mg tablet extended release 24 hr 500 mg PO DAILY Qty: 90 3RF Rx Instructions: Diabetes--take with food naproxen 375 mg tablet 375 mg PO .daily in AM PRN (Reason: pain) Qty: 90 0RF Rx Instructions: Chronic pain No Action acetaminophen-codeine 300-30 mg tablet 1 tab PO DAILY PRN (Reason: pain) Qty: 6 0RF Rx Instructions: PHARM GERI: FOR DELIVERY (TY!!) Chronic lumbar spinal stenosis pain, to medicate prior to medical appointments. clindamycin HCl 300 mg capsule 600 mg PO TID rosuvastatin 10 mg tablet 10 mg PO DAILY Qty: 90 3RF pantoprazole 40 mg tablet,delayed release (DR/EC) 40 mg PO DAILY Qty: 90 3RF metoprolol succinate 25 mg tablet extended release 24 hr 25 mg PO DAILY Qty: 90 3RF levothyroxine 50 mcg tablet 50 mcg PO DAILY Qty: 90 3RF Discharge Instructions Instructions: Head Injury (ED), Diabetic Hyperglycemia (ED) Additional Instructions: Your blood tests today revealed that your blood sugar is very high. Make sure to check your sugar regularly and take your diabetes medications as prescribed. Drink plenty of fluids and get plenty of rest. Alternate tylenol and motrin as needed and directed for pain. Follow-up with your primary care doctor in 1 week. Return to the emergency department with any worsening or new concerning symptoms. Discharge Data Discharge Date/Time-TO BE ENTERED AT DEPARTURE: 05/28/22 03:48 Discharge Physician: Rosalie Barclay Medical Decision Making [id number] -- 67-year-old female who is DNR/DNI who is wheelchair-bound with a history of anxiety, depression, hypertension, hyperlipidemia, hypothyroidism, diabetes, GERD who presents from home after mechanical fall in bathroom prior to arrival. Nurse reports glucose read as high on fingerstick on arrival. Patient is alert and oriented x3. She is only complaining of posterior headache and midline neck pain. She is moving all extremities without deformity. She does have midline upper thoracic tenderness. Her chest and abdomen is nontender. Will refer for CT head, cervical spine and CT thoracic spine. Considering her high glucose reading, will obtain screening labs, urinalysis. ED is reviewed and negative for acute findings. Labs reviewed and noted a glucose of 642 with normal bicarb and anion gap. Pt stated she has not been checking her glucose and taking her insulin regularly. Normal VBG. Urinalysis notes glucose but negative for infection or ketones. Will give 8 units of insulin subcu and administer IV fluids. Recheck fingerstick glucose 515. We will continue IV fluids and give an additional 4 units of subcu insulin. 0300 --repeat glucose 450. Patient feels comfortable going home. Advised to follow up with the primary care doctor for re-evaluation. Usual and customary return precautions given prior to discharge. Medical Records Medical records reviewed: Yes I reviewed the patient's medical records. Imaging Data Radiologic Study: Radiologist's impression: CT Head Without Contrast Exam date and time: 05/28/2022 12:02 AM Age: 67 years old Clinical indication: Injury or trauma; Blunt trauma (contusions or hematomas); Consciousness not specified; Injury date: 05/27/21; Injury details: Fall, hit head, R/O intracranial inj/fx TECHNIQUE: Imaging protocol: Computed tomography of the head without contrast. Radiation optimization: All CT scans at this facility use at least one of these dose optimization techniques: automated exposure control; mA and/or kV adjustment per patient size (includes targeted exams where dose is matched to clinical indication); or iterative reconstruction. COMPARISON: CT HEAD WO 05/10/2022 7:42 PM FINDINGS: Brain:? Mild volume loss No hemorrhage.? Mild white matter disease. No mass effect. Cerebral ventricles: No ventriculomegaly. Paranasal sinuses: Visualized sinuses are unremarkable. No fluid levels. Mastoid air cells: Visualized mastoid air cells are well aerated. Bones/joints: Unremarkable. No acute fracture. Soft tissues: Unremarkable. IMPRESSION: No acute intracranial abnormality. CT Cervical Spine Without Contrast Exam date and time: 05/28/2022 12:02 AM Age: 67 years old Clinical indication: Injury or trauma; Blunt trauma (contusions or hematomas); Consciousness not specified; Injury date: 05/27/21; Injury details: Fall, hit head, R/O intracranial inj/fx TECHNIQUE: Imaging protocol: Computed tomography of the cervical spine without contrast. Radiation optimization: All CT scans at this facility use at least one of these dose optimization techniques: automated exposure control; mA and/or kV adjustment per patient size (includes targeted exams where dose is matched to clinical indication); or iterative reconstruction. COMPARISON: CT HEAD CERVICAL SPINE WO 01/23/2020 6:44 PM FINDINGS: Bones/joints: No acute fracture.? Loss of cervical lordosis is presumably on a degenerative basis. Central canal and foraminal stenosis most pronounced at C3-C4 Lungs: Lung apices are grossly clear Soft tissues: Unremarkable. IMPRESSION: No acute findings. CT Thoracic Spine Without Contrast Exam date and time: 05/28/2022 12:12 AM Age: 67 years old Clinical indication: Injury or trauma; Blunt trauma (contusions or hematomas); Injury date: 05/27/22; Injury details: Fall, hit head, R/O intracranial inj/fx TECHNIQUE: Imaging protocol: Computed tomography of the thoracic spine without contrast. Radiation optimization: All CT scans at this facility use at least one of these dose optimization techniques: automated exposure control; mA and/or kV adjustment per patient size (includes targeted exams where dose is matched to clinical indication); or iterative reconstruction. COMPARISON: CT HEAD CERVICAL SPINE WO 05/28/2022 12:02 AM FINDINGS: Bones/joints: No acute fracture.? Alignment is grossly maintained. No significant central canal stenosis. Degenerative changes noted in the upper lumbar spine. Soft tissues: Unremarkable. Bilateral renal cysts.Abdominal aortic aneurysm partially visualized measuring up to 4.7 cm A large hiatal hernia is detected. IMPRESSION: No acute thoracic fracture Partially visualized abdominal aortic aneurysm measuring up to 4.7 cm.? No definite rupture on the visualized images Lab Data Lab results reviewed: Yes I reviewed the patient's lab results. Labs: Laboratory Tests Range/Units 05/27/22 05/27/22 05/28/22 23:55 23:55 00:50 WBC (4.4-10.8) 10^3/uL 6.91 RBC (3.93-5.22) 10^6/uL 4.60 Hgb (11.2-15.7) g/dL 11.7 Hct (36.0-46.0) % 38.2 MCV (80-95) fL 83 MCH (27.0-33.0) pg 25.4 L MCHC (32.0-36.0) % 30.6 L RDW (11.7-14.6) % 15.2 H Plt Count (130-400) 10^3/uL 213 MPV (8.0-11.0) fL 11.4 H Immature Gran % 0.4 Neutrophils % 69.1 Lymphocytes % 17.4 Monocytes % 7.8 Eosinophils % 4.3 Basophils % 1.0 Nucleated RBC % (0.0-0.3) % 0.0 Absolute Neutrophils (1.2-6.7) 10^3/uL 4.77 Absolute Lymphocytes (1.2-3.4) 10^3/uL 1.20 Absolute Monocytes (0.1-0.8) 10^3/uL 0.54 Absolute Eosinophils (0.0-0.7) 10^3/uL 0.30 Absolute Basophils (0.0-0.2) 10^3/uL 0.07 VBG pH (7.31-7.41) 7.34 VBG pCO2 (41-51) mmHg 50 VBG pO2 mmHg 38 VBG HCO3 (23-28) mmol/L 27 VBG Total CO2 (24-29) mmol/L 25 VBG O2 Saturation % 69 VBG Base Excess (-2-3) mmol/L 1 Sodium (136-145) mmol/L 131 L Potassium (3.5-5.1) mmol/L 4.8 Chloride (98-107) mmol/L 99 Carbon Dioxide (21.0-32.0) mmol/L 27.2 Anion Gap (3-11) mmol/L 4.8 BUN (7-18) mg/dL 21 H Creatinine (0.55-1.02) mg/dL 1.5 H Est GFR (CKD-EPI 2020) (mL/min/1.73m2) 37.72 Glucose (74-106) mg/dL 642 H* Calcium (8.5-10.1) mg/dL 9.1 Total Bilirubin (0.2-1.0) mg/dL 0.3 AST (15-37) U/L 27 ALT (14-59) U/L 28 Alkaline Phosphatase (46-116) U/L 199 H Total Protein (6.4-8.2) g/dL 6.9 Albumin (3.4-5.0) g/dL 3.1 L Urine Color (Yellow) Urine Clarity (Clear) Urine pH (5-8) Ur Specific Rogers (1.005-1.025) Urine Protein (Negative) mg/dL Urine Ketones (Negative) mg/dL Urine Blood (Negative) Urine Nitrite (Negative) Urine Bilirubin (Negative) Urine Urobilinogen (Up TO 0.2) EU/dL Ur Leukocyte Esterase (Negative) Urine Glucose (Negative) mg/dL Range/Units 05/28/22 00:50 WBC (4.4-10.8) 10^3/uL RBC (3.93-5.22) 10^6/uL Hgb (11.2-15.7) g/dL Hct (36.0-46.0) % MCV (80-95) fL MCH (27.0-33.0) pg MCHC (32.0-36.0) % RDW (11.7-14.6) % Plt Count (130-400) 10^3/uL MPV (8.0-11.0) fL Immature Gran % Neutrophils % Lymphocytes % Monocytes % Eosinophils % Basophils % Nucleated RBC % (0.0-0.3) % Absolute Neutrophils (1.2-6.7) 10^3/uL Absolute Lymphocytes (1.2-3.4) 10^3/uL Absolute Monocytes (0.1-0.8) 10^3/uL Absolute Eosinophils (0.0-0.7) 10^3/uL Absolute Basophils (0.0-0.2) 10^3/uL VBG pH (7.31-7.41) VBG pCO2 (41-51) mmHg VBG pO2 mmHg VBG HCO3 (23-28) mmol/L VBG Total CO2 (24-29) mmol/L VBG O2 Saturation % VBG Base Excess (-2-3) mmol/L Sodium (136-145) mmol/L Potassium (3.5-5.1) mmol/L Chloride (98-107) mmol/L Carbon Dioxide (21.0-32.0) mmol/L Anion Gap (3-11) mmol/L BUN (7-18) mg/dL Creatinine (0.55-1.02) mg/dL Est GFR (CKD-EPI 2020) (mL/min/1.73m2) Glucose (74-106) mg/dL Calcium (8.5-10.1) mg/dL Total Bilirubin (0.2-1.0) mg/dL AST (15-37) U/L ALT (14-59) U/L Alkaline Phosphatase (46-116) U/L Total Protein (6.4-8.2) g/dL Albumin (3.4-5.0) g/dL Urine Color (Yellow) Yellow Urine Clarity (Clear) Clear Urine pH (5-8) 5.5 Ur Specific Rogers (1.005-1.025) 1.010 Urine Protein (Negative) mg/dL Negative Urine Ketones (Negative) mg/dL Negative Urine Blood (Negative) Negative Urine Nitrite (Negative) Negative Urine Bilirubin (Negative) Negative Urine Urobilinogen (Up TO 0.2) EU/dL 0.2 Ur Leukocyte Esterase (Negative) Negative Urine Glucose (Negative) mg/dL >=1000 H HPI General Date/Time Provider Initiated Documentation: 05/28/22 00:22 . Limitations to Documentation: physical limitation . Information obtained by: patient . HPI Narrative: Patient is a 67-year-old female who is wheelchair-bound presents from home for mechanical fall in bathroom prior to arrival. Patient states she was transferring when she slipped and struck her head on a bar in the bathroom. She admits to headache in the back of her head and upper neck pain. She states she has not taken any anticoagulation and denies loss of consciousness. She denies any other injuries. She denies chest pain, abdominal pain, difficulty breathing, back pain or extremity pain. Related Data Home Medications Medication Instructions Recorded Confirmed budesonide-formoterol HFA 80 2 puff inhalation BID ##3 01/28/17 05/28/22 mcg-4.5 mcg/actuation aerosol inhaler (Symbicort) lancets (myOrderTouch UltraSoft #400 ea 11/03/20 05/28/22 Lancets) blood sugar diagnostic #400 ea 04/19/21 05/28/22 blood-glucose meter (OneTouch #1 ea 04/19/21 05/28/22 Ultra2 Meter kit) Air mattress #1 ea 06/15/21 05/28/22 acetaminophen 650 mg 1,300 mg PO Q12H #360 tabs 06/21/21 05/28/22 tablet,extended release (Tylenol Arthritis Pain) albuterol sulfate 90 mcg/actuation 1 - 2 puff inhalation Q4H PRN #18 06/21/21 05/28/22 aerosol inhaler (ProAir HFA) grams insulin degludec 200 unit/mL (3 40 unit (0.2 mL) subcut DAILY #12 06/21/21 05/28/22 mL) subcutaneous pen (Tresiba mL FlexTouch U-200 insulin) pen needle, diabetic, safety 30 #100 ea 07/21/21 05/28/22 [facility] x 1/[facility] Wheelchair (manual) #1 ea 03/01/22 05/28/22 metformin 500 mg tablet,extended 500 mg PO DAILY #90 tabs 03/07/22 05/28/22 release 24 hr naproxen 375 mg tablet 375 mg PO .daily in AM PRN pain 03/09/22 05/31/22 #90 tabs gabapentin 300 mg capsule 300 mg PO BID #180 caps 04/09/22 05/28/22 levothyroxine 50 mcg tablet 50 mcg PO DAILY #90 tab-caps 05/30/22 metoprolol succinate 25 mg 25 mg PO DAILY #90 tabs 05/30/22 tablet,extended release 24 hr pantoprazole 40 mg tablet,delayed 40 mg PO DAILY #90 tab-caps 05/30/22 release rosuvastatin 10 mg tablet 10 mg PO DAILY #90 tabs 05/30/22 acetaminophen 300 mg-codeine 30 mg 1 tab PO DAILY PRN pain #6 tabs 05/31/22 05/31/22 tablet clindamycin HCl 300 mg capsule 600 mg PO TID 05/31/22 05/31/22 Previous Rx's Medication Instructions Recorded budesonide-formoterol HFA 80 2 puff inhalation BID ##3 01/28/17 mcg-4.5 mcg/actuation aerosol inhaler (Symbicort) lancets ([facility] UltraSoft #400 ea 11/03/20 Lancets) blood sugar diagnostic #400 ea 04/19/21 blood-glucose meter ([facility] #1 ea 04/19/21 Ultra2 Meter kit) Air mattress #1 ea 06/15/21 acetaminophen 650 mg 1,300 mg PO Q12H #360 tabs 06/21/21 tablet,extended release (Tylenol Arthritis Pain) albuterol sulfate 90 mcg/actuation 1 - 2 puff inhalation Q4H PRN #18 06/21/21 aerosol inhaler (ProAir HFA) grams insulin degludec 200 unit/mL (3 40 unit (0.2 mL) subcut DAILY #12 06/21/21 mL) subcutaneous pen (Tresiba mL FlexTouch U-200 insulin) pen needle, diabetic, safety 30 #100 ea 07/21/21 gauge x 1/3 (Novofine Autocover) Wheelchair (manual) #1 ea 03/01/22 metformin 500 mg tablet,extended 500 mg PO DAILY #90 tabs 03/07/22 release 24 hr naproxen 375 mg tablet 375 mg PO .daily in AM PRN pain 03/09/22 #90 tabs gabapentin 300 mg capsule 300 mg PO BID #180 caps 04/09/22 levothyroxine 50 mcg tablet 50 mcg PO DAILY #90 tab-caps 05/30/22 metoprolol succinate 25 mg 25 mg PO DAILY #90 tabs 05/30/22 tablet,extended release 24 hr pantoprazole 40 mg tablet,delayed 40 mg PO DAILY #90 tab-caps 05/30/22 release rosuvastatin 10 mg tablet 10 mg PO DAILY #90 tabs 05/30/22 acetaminophen 300 mg-codeine 30 mg 1 tab PO DAILY PRN pain #6 tabs 05/31/22 tablet Allergies Allergy/AdvReac Type Severity Reaction Status Date / Time bupropion HCl Allergy Severe seizures Verified 05/28/22 03:10 [From Wellbutrin] carvedilol [From Coreg] Allergy Mild Itching Verified 05/28/22 03:10 morphine AdvReac Unknown nausea Verified 05/28/22 03:10 General Stated Complaint: Fall/Non TraumaCriteria DINESH: 3 Review of Systems All systems reviewed & are unremarkable except as noted in HPI and below Constitutional Constitutional: Reports as per HPI, Denies chills, Denies fever(s) and Reports headache(s) Eyes Eyes: Denies blurry vision ENT Ears, Nose, Mouth, and Throat: Denies dizziness, Reports headache(s), Reports neck pain, Denies sore throat and Denies throat swelling Cardiovascular Cardiovascular: Denies chest pain and Denies dyspnea Respiratory Respiratory: Denies cough and Denies dyspnea Gastrointestinal Gastrointestinal: Denies abdominal pain, Denies diarrhea and Denies vomiting Genitourinary Genitourinary: Denies hematuria and Denies dysuria Musculoskeletal Musculoskeletal: Denies back pain, Reports neck pain and Denies numbness Integumentary/Breasts Skin/Breast: Denies lesions and Denies rash Neurologic Neurologic: Denies dizziness, Reports headache(s), Denies localized weakness and Denies numbness Allergic/Immunologic Allergic/Immunologic: Denies throat swelling PFSH All Active Problems (Updated 05/31/22 @ 17:56 by Mai Castelan [employer]) Open toe wound (Acute) Nail avulsion, toe (Acute) L great toe Generalized weakness (Acute) Osteomyelitis of second toe of right foot (Acute) Cellulitis of toe (Acute) Urge incontinence (Chronic) Declines RX briefs Self-care deficit (Acute) Bedbound (Acute) gets up with WC to BR Recurrent falls (Chronic) Difficulty transferring from bed to wheelchair (Chronic) DME hospital bed has helped Difficulty transferring from toilet to wheelchair (Chronic) Steph investigating commode Wheelchair bound (Chronic) no falls since starting using WC permanent need severe diabetic nephropathy needs more adaptive equipment in the home Cognitive attention deficit (Chronic) needs multiple repetitions of information Diabetes type 2, uncontrolled (Chronic) though she has had education over the years, still seems not to understand carb counting ideally needs someone to educate son as he buys her food also needs hands-on teaching with nutrition labels, etc. 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) Goal A1c < 7.5% Schein, neuropathy; Charcot's foot 03/19/13 [employer] Spinal stenosis of lumbar region with neurogenic claudication (Chronic 12/08/13) 04/13/2013 MRI Lumbar Spine: Facet arthropathy, DJD, L4-5, L5-S1 central spinal and neural foraminal stenosis Neurosurgery referral, but not a surgical candidate [facility] chronic pain service Chronic Pain [facility] Pain Center consult 10/26/15 [facility] Spine Center consult 03/04/17 (Sanket Sawant MD) Other and unspecified hyperlipidemia (Chronic 08/14/12) Esophageal reflux disease (Chronic 07/24/11) UPPER GI SERIES 11/14/2012, MOD HIATAL HERNIA SEVERE GERD Coronary artery disease involving ewiiaapaayp coronary artery of ewiiaapaayp heart (Chronic) INFERIOR PR 1996, 100% RCA occlusion; large inf defect on perfusion scan, dr Fair Chronic kidney disease, stage III (moderate) (Chronic 08/14/12) Cortical atrophy R kidney on CT 07/2014; multiple cysts Cardiomyopathy (Chronic) Dr Fair, EF 45% Jun 2014 ECHO (h/o much worse) 10/2016 ECHO: EF 40-45% 10/2016 MPI: no acute, but persistent old infarct COPD, mild (Chronic 07/02/17) PFTs Abdominal aortic aneurysm (Chronic 11/27/12) Identified 10/31/12 CT abd-pelvis; 4cm; stable 4.1 cm 07/2014 CT, 4.3cm 11/2016, 5.5cm 03/04/17 ([facility]). 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 Guerra DJD of right shoulder (01/01/13) 12/2012 x-ray severe DJD glenohumeral joint Dr. Guerra; not a surgical candidate for replacement DNI (do not intubate) DNR (do not resuscitate) Encounter for hospice care Episode of seizures in July 2012 Fall at home Goals of care, counseling/discussion DNR/DNI COLST done wants to stay home may need new agent if/when Steph moves out of state as planned Incarcerated umbilical hernia (09/06/15) Iron deficiency anemia Mass of both parotid glands Abnormal CT 08/2019 Mild pulmonary hypertension Nausea and vomiting (08/01/14) a. previous history of possible marijuana induced hyperemesis Olecranon bursitis, left elbow Resolved with appropriate DME Osteoarthritis of left elbow Palliative care patient Perirectal abscess With associated hospitalization 2019 POLST (Physician Orders for Life-Sustaining Treatment) signed 06/01/20 Pulmonary embolism (~12/2021) Never started anticoagulation RLS (restless legs syndrome) Tinea corporis Surgical History Appendectomy Childhood surgery, no date given by pt.HE Hemiarthroplasty (06/13/15) Dr Charlie Gallardo shoulder History of carpal tunnel release of both wrists (~05/2012) Hx of umbilical hernia repair (09/06/15) Incarcerated umbilical hernia repair (09/06/15) Tonsillectomy childhood surgery, no date given by pt.HE Family History Mother , at 73 yo from dementia Dementia Diabetes Stroke Blind Father , MVA (truck) accident at 45yo No problems noted. Sister Age: 62 Thyroid cancer Brother , from complications of diabetes age 60 Diabetes Brother Diabetes Heart disease Colon cancer Ulcerative colitis Sister Obesity Prediabetes Arthritis Son Substance abuse attends [facility]; h/o heroin and other opioid addiction Other FH: mental illness Social History Smoking/Tobacco Use Status: Current every day Tobacco Type: cigarettes Tobacco: How many years used: 54 Quit status: not considering quitting Counseling given: counseling >3 minutes Smoking risk assessment performed?: Yes Alcohol Intake: former Drug use: Daily Substance use type: marijuana Counseling given: Yes Details: pt states she smokes marijuana on a daily basis x1 per day Adopted: No Caregiver/Support person: Yes Foster care: No Household members: children Housing: house Number of Children: 1 number of grandchildren: 0 Communication Needs: Corrective Lenses Education Level: high school Details: didn't finish sophomore year Do you need help understanding health information?: Always 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; 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 Pets and animals: Yes Current gender identity: female What is your relationship status?: How often do you talk on the phone with friends or family?: three or more times per week How often do you get together with friends or relatives?: twice per week Panel score (0-1 are the most socially isolated patients): 1 What type of physical activity do you participate in: none and wheelchair-bound Special eliana needs: No Seatbelt use: sometimes Working smoke detector in home: Yes Fire extinguisher in home: Yes Do you feel safe at home: Yes (Most of the time, yes I feel better if my son or somebody is there) Do you feel safe in your relationship?: Yes Additional Social history: Patient reports she lives with her son Exam Const General: cooperative, no acute distress and disheveled Orientation: alert, awake and oriented x3 HENMT Head: normal to inspection Ears: hearing grossly normal bilaterally, external ears normal and TM's normal bilaterally General nose exam: external nose normal Face and sinus: normal facial exam Eyes General: appearance normal, both eyes and all related structures Pupils: PERRL EOM: EOM intact bilaterally Neck Neck: normal visual inspection and No submandibular swelling Chest Chest: normal inspection of the chest, normal palpation of entire chest wall and no tenderness Resp Effort & Inspection: normal respiratory effort and able to speak in complete sentences Auscultation: clear to auscultation bilaterally Cardio Rate: regular rate Rhythm: regular rhythm GI Inspection: normal to inspection and no abdominal wall ecchymosis Palpation: soft, not firm, not rigid and nontender Auscultation: hypoactive bowel sounds Back/Spine/Pelvis Cervical Spine: cervical spinal tenderness (upper) Thoracic/Lumbar Spine: thoracic and lumbar spine normal to inspection, thoracic spinal tenderness and No lumbar spinal tenderness Pelvis: no pain with anterior-posterior compression Skin General skin exam: no rashes or lesions noted Other: Brown dried excrement noted to left medial lower leg, left hand and buttocks. No open ulcers noted to sacrum, buttocks. Neuro General: patient alert, patient awake and patient oriented x3 Cognition: normal cognition Speech: speech normal Motor: muscle tone normal throughout Sensory Exam: no sensory deficits noted Extrem General: normal to inspection, full ROM, capillary refill normal, no calf tenderness bilaterally and no edema Other: Normal range of motion of bilateral upper and lower extremities without pain with range of motion or deformity. Right second toe with healing ulcer, mild-moderate edema with purplish/erythematous discoloration which appears chronic but no acute appearing erythema, fluctuance or drainage. Psych Appearance: grossly normal Mental Status: mental status grossly normal Speech and Movement: speech and movement normal Affect: normal affect Course Vital Signs Vital signs: Vital Signs Temperature 98.1 F 05/27/22 22:48 Pulse 88 05/27/22 22:48 Respiratory Rate 18 05/27/22 22:48 Blood Pressure 107/53 L 05/27/22 22:48 Pulse Oximetry 94 05/27/22 22:48 Temperature 98.1 F 05/27/22 22:48 Pulse 88 05/27/22 22:48 Respiratory Rate 18 05/27/22 22:48 Respiratory Effort 05/27/22 22:54 Blood Pressure 107/53 L 05/27/22 22:48 Blood Pressure Position Supine 05/27/22 22:48 Pulse Oximetry 94 05/27/22 22:48 Oxygen Delivery Method Room Air 05/27/22 22:48 Oxygen Flow Rate 0 05/27/22 22:48 Pain Level 5 05/27/22 22:48
[2022-05-27 23:45] VITALS: BP 118/70; PULSE 90
[2022-05-28] VITALS (9 sets, daily range): BP systolic 107–137; BP diastolic 50–68; PULSE 63–72; RESP 20; TEMP 36.4; O2SAT 93–95
[2022-05-28 00:02] LABS: Abs Immature Grans 0.03 10^3/uL (0.0-0.06); Absolute Basophil Count 0.07 10^3/uL (0.0-0.2); Absolute Monocyte Count 0.54 10^3/uL (0.1-0.8); Absolute Neutrophil Count 4.77 10^3/uL (1.2-6.7); Eosinophils % 4.3; HCT 38.2 % (36.0-46.0); HGB 11.7 g/dL (11.2-15.7); Immature Grans % 0.4; Lymphocytes % 17.4; MCH 25.4 pg (27.0-33.0); MCHC 30.6 % (32.0-36.0); MCV 83 fL (80-95); MPV 11.4 fL (8.0-11.0); Monocytes % 7.8; Neutrophils % 69.1; Platelet Count 213 10^3/uL (130-400); RDW 15.2 % (11.7-14.6); RDW-SD 45.1 fL; WBC 6.91 10^3/uL (4.4-10.8)
[2022-05-28 00:21] LABS: ALT 28 U/L (14-59); AST 27 U/L (15-37); Albumin 3.1 g/dL (3.4-5.0); Alkaline Phosphatase 199 U/L (46-116); Anion Gap 4.8 mmol/L (3-11); BUN 21 mg/dL (7-18); Bilirubin, Total 0.3 mg/dL (0.2-1.0); CO2 27.2 mmol/L (21.0-32.0); CREATININE 1.5 mg/dL (0.55-1.02); Calcium 9.1 mg/dL (8.5-10.1); Chloride 99 mmol/L (98-107); Estimated GFR 37.72 (mL/min/1.73m2); Potassium 4.8 mmol/L (3.5-5.1); Sodium 131 mmol/L (136-145); Total Protein 6.9 g/dL (6.4-8.2)
[2022-05-28 00:22] LABS: Glucose 642 mg/dL (74-106)
--- NOTE | 2022-05-28 00:32 | DI.VRAD_ITS ---
PROCEDURE INFORMATION: Exam: CT Head Without Contrast Exam date and time: 05/28/2022 12:02 AM Age: 67 years old Clinical indication: Injury or trauma; Blunt trauma (contusions or hematomas); Consciousness not specified; Injury date: 05/27/21; Injury details: Fall, hit head, R/O intracranial inj/fx TECHNIQUE: Imaging protocol: Computed tomography of the head without contrast. Radiation optimization: All CT scans at this facility use at least one of these dose optimization techniques: automated exposure control; mA and/or kV adjustment per patient size (includes targeted exams where dose is matched to clinical indication); or iterative reconstruction. COMPARISON: CT HEAD WO 05/10/2022 7:42 PM FINDINGS: Brain: Mild volume loss No hemorrhage. Mild white matter disease. No mass effect. Cerebral ventricles: No ventriculomegaly. Paranasal sinuses: Visualized sinuses are unremarkable. No fluid levels. Mastoid air cells: Visualized mastoid air cells are well aerated. Bones/joints: Unremarkable. No acute fracture. Soft tissues: Unremarkable. IMPRESSION: No acute intracranial abnormality. PROCEDURE INFORMATION: Exam: CT Cervical Spine Without Contrast Exam date and time: 05/28/2022 12:02 AM Age: 67 years old Clinical indication: Injury or trauma; Blunt trauma (contusions or hematomas); Consciousness not specified; Injury date: 05/27/21; Injury details: Fall, hit head, R/O intracranial inj/fx TECHNIQUE: Imaging protocol: Computed tomography of the cervical spine without contrast. Radiation optimization: All CT scans at this facility use at least one of these dose optimization techniques: automated exposure control; mA and/or kV adjustment per patient size (includes targeted exams where dose is matched to clinical indication); or iterative reconstruction. COMPARISON: CT HEAD CERVICAL SPINE WO 01/23/2020 6:44 PM FINDINGS: Bones/joints: No acute fracture. Loss of cervical lordosis is presumably on a degenerative basis. Central canal and foraminal stenosis most pronounced at C3-C4 Lungs: Lung apices are grossly clear Soft tissues: Unremarkable. IMPRESSION: No acute findings. Dictated and Authenticated by: Sanket Mueller MD. Ordering:KIM Wiggins MD
--- NOTE | 2022-05-28 00:32 | DI.VRAD_ITS ---
PROCEDURE INFORMATION: Exam: CT Thoracic Spine Without Contrast Exam date and time: 05/28/2022 12:12 AM Age: 67 years old Clinical indication: Injury or trauma; Blunt trauma (contusions or hematomas); Injury date: 05/27/22; Injury details: Fall, hit head, R/O intracranial inj/fx TECHNIQUE: Imaging protocol: Computed tomography of the thoracic spine without contrast. Radiation optimization: All CT scans at this facility use at least one of these dose optimization techniques: automated exposure control; mA and/or kV adjustment per patient size (includes targeted exams where dose is matched to clinical indication); or iterative reconstruction. COMPARISON: CT HEAD CERVICAL SPINE WO 05/28/2022 12:02 AM FINDINGS: Bones/joints: No acute fracture. Alignment is grossly maintained. No significant central canal stenosis. Degenerative changes noted in the upper lumbar spine. Soft tissues: Unremarkable. Bilateral renal cysts.Abdominal aortic aneurysm partially visualized measuring up to 4.7 cm A large hiatal hernia is detected. IMPRESSION: No acute thoracic fracture Partially visualized abdominal aortic aneurysm measuring up to 4.7 cm. No definite rupture on the visualized images Dictated and Authenticated by: Sanket Mueller MD. Ordering:KIM Wiggins MD
[2022-05-28 01:05] LABS: BE (Venous) 1 mmol/L (-2-3); HCO3 (Venous) 27 mmol/L (23-28); O2 Sat (Venous) 69 %; TCO2 (Venous) 25 mmol/L (24-29); pCO2 (Venous) 50 mmHg (41-51); pH (Venous) 7.34 (7.31-7.41); pO2 (Venous) 38 mmHg
[2022-05-28] MEDS: Insulin REGULAR-Human 100 UNITS/ML UNIT 8 UNITS SC (01:09)
[2022-05-28 01:10] LABS: Bilirubin Negative (Negative); Blood Negative (Negative); Clarity Clear (Clear); Glucose >=1000 mg/dL (Negative); Ketones Negative (Negative); Leukocyte Esterase Negative (Negative); Nitrite Negative (Negative); Urobilinogen 0.2 EU/dL (Up TO 0.2); pH 5.5 (5-8)
[2022-05-28] MEDS: Normal Saline 1,000 ML 1000 ML IV (01:15)
[2022-05-28] MEDS: Insulin REGULAR-Human 100 UNITS/ML UNIT SC (02:01)
== END 2022-05-28 03:48 | disposition home or self-care (01) ==
PROVIDERS: Emergency Provider Physician Assistant; PCP Nurse Practitioner Adult Health
DX: S09.90XA Unspecified injury of head, initial encounter (principal); E11.65 Type 2 diabetes mellitus with hyperglycemia; E11.622 Type 2 diabetes mellitus with other skin ulcer; L97.519 Non-pressure chronic ulcer of other part of right foot with unspecified severity; E78.5 Hyperlipidemia, unspecified; W01.198A Fall on same level from slipping, tripping and stumbling with subsequent striking against other object, initial encounter; Y92.002 Bathroom of unspecified non-institutional (private) residence as the place of occurrence of the external cause; I10 Essential (primary) hypertension
CPT/HCPCS: 36416; 80053; 82805; 82962; 96360; 96372; 99284; 70450; 72125; 72128; 81003; 85025

== ENCOUNTER 2022-05-29 12:53 | Outpatient (REF) | payer OTHER, MEDICAID, SELFPAY ==
[2022-05-29 13:46] LABS: BUN 17 mg/dL (7-18); CREATININE 1.2 mg/dL (0.55-1.02); Calcium 10.1 mg/dL (8.5-10.1); Chloride 98 mmol/L (98-107); Estimated GFR 49.31 (mL/min/1.73m2); Potassium 4.8 mmol/L (3.5-5.1); Sodium 134 mmol/L (136-145)
[2022-05-29 13:59] LABS: Glucose 568 mg/dL (74-106)
[2022-05-29 19:02] LABS: Estimated Average Glucose 309 mg/dL; Hemoglobin A1C 12.4 % (<5.7)
[2022-05-31 17:46] LABS: Lab Add On Test DONE
[2022-05-31 17:57] LABS: C-Reactive Protein 1.18 mg/dL (0.0-0.3)
== END 2022-05-29 12:54 | disposition home or self-care (01) ==
LOC: NCHCN 12:53
PROVIDERS: PCP Nurse Practitioner Adult Health; Visit Provider Nurse Practitioner Adult Health
DX: E11.65 Type 2 diabetes mellitus with hyperglycemia
CPT/HCPCS: 80048; 83036; 86140

== ENCOUNTER 2022-06-01 15:29 | Inpatient (IN) | payer OTHER, MEDICAID, SELFPAY ==
[2022-06-01 15:30] VITALS: BP 124/80; PULSE 82; RESP 16; TEMP 37; O2SAT 91
--- NOTE | 2022-06-01 15:36 | NUR.NOTE ---
Nursing Note: bgm [id number]
--- NOTE | 2022-06-01 15:45 | RT.EKG_ITS ---
APPROVED REPORT Exam: Resting ECG Reason for Exam: irregular HR Patient Location: E HR:99 bpm ECG Measurements Heart Rate 99 AXIS OH 253 P -43 QRSd 127 QRS 31 QT 357 T -53 QTc 458 Conclusion Sinus rhythm...normal P axis, V-rate 60- 99 Prolonged OH interval...OH >215, V-rate 91-120 Nonspecific intraventricular conduction delay...QRSd >115mS, not LBBB/RBBB Anterolateral infarct, age indeterminate...Q >35mS, flat/neg T, V3-V6,I,aVL There are no significant changes compared to prior EKG performed on 10/22/2021 at 09:10.
--- NOTE | 2022-06-01 15:45 | DI.RAD_ITS ---
Exam(s) XR CHEST 2V PA LATERAL EXAM: XR CHEST 2V PA LATERAL CLINICAL HISTORY: cough TECHNIQUE: 2D digital imaging was performed of the chest. Two images were obtained. PA and lateral views were obtained. COMPARISON: No exams were available for comparison FINDINGS: MEDIASTINUM: There is a hiatal hernia present. HEART: Normal. PULMONARY VASCULATURE: Normal. LUNGS: Clear. PLEURAL SPACE: No pleural effusion or pneumothorax. BONE:Within normal limits for the patient's age. OTHER FINDINGS:Normal. IMPRESSION: No acute pulmonary findings. DATA REPOSITORY: RADIATION DOSE DELIVERED:
--- NOTE | 2022-06-01 15:46 | ED.GENADUL_ITS ---
Discharge Plan Disposition Patient Disposition: Admit to [facility] Condition: Fair Discharge Details Clinical Impression: Diabetic foot infection Admit Date/Time: 06/01/22 17:09 Admit Provider: Jose A Espino Attending Provider: Jose A Espino Primary Care Provider: Mai Castelan ED Provider: Evelio Hooks Discharge Data Discharge Date/Time-TO BE ENTERED AT DEPARTURE: 06/01/22 17:45 Medical Decision Making Patient presenting to ED with right second toe cellulitis/osteomyelitis not responding to outpatient clindamycin. Has not been able to follow-up with podiatry. Now also has left big toe nail avulsion and erythema likely starting cellulitis as well. She is afebrile and does not look toxic. IV established and fluids started including a bolus given her elevated fingerstick. Laboratory studies sent. We will forego repeat x-rays as she just had foot x-ray 10 days ago. If anything should have MRI to confirm the osteo. Needs podiatry consult in-house and hospitalization for IV antibiotics. We will start Zosyn and vancomycin here. Did speak to patient's primary care provider as well. She feels patient needs to be admitted after she saw her last night. Will discuss with hospitalist. Medical Records Medical records reviewed: Yes I reviewed the patient's medical records. Lab Data Lab results reviewed: Yes I reviewed the patient's lab results. ECG Data Attestation: I personally reviewed and interpreted this ECG (s) as follows: Interpretation: See EKG HPI General Mode of arrival: EMS . Date/Time Provider Initiated Documentation: 06/01/22 15:38 . Limitations to Documentation: no limitations . Information obtained by: patient and old records reviewed . HPI Narrative: Patient presents to ED by ambulance for evaluation of foot infection. Patient seen here earlier this month with right second toe redness and swelling. X-rays at that time suggested likely osteomyelitis. She was placed on clindamycin and referred to podiatry. She has not followed up with podiatry or PCP until today. PCP saw her on a home visit this morning and recommend transfer to hospital for admission. Patient declined but later this afternoon changed her mind, call PCP and subsequently came in by ambulance. She is diabetic. She continues to smoke. Right second toe has become more red and swollen. She also has redness and avulsed toenail left big toe. She denies any fever, headache, chest pain, abdominal pain, vomiting, diarrhea. She has chronic cough and shortness of breath which is unchanged. She does think she is bringing up more sputum with coughing but denies being any more short of breath. Related Data Home Medications Medication Instructions Recorded Confirmed budesonide-formoterol HFA 80 2 puff inhalation BID ##3 01/28/17 06/01/22 mcg-4.5 mcg/actuation aerosol inhaler (Symbicort) lancets (ConsultedTouch UltraSoft #400 ea 11/03/20 06/01/22 Lancets) blood sugar diagnostic #400 ea 04/19/21 06/01/22 blood-glucose meter (Harvestuch #1 ea 04/19/21 06/01/22 Ultra2 Meter kit) Air mattress #1 ea 06/15/21 06/01/22 albuterol sulfate 90 mcg/actuation 1 - 2 puff inhalation Q4H PRN #18 06/21/21 06/01/22 aerosol inhaler (ProAir HFA) grams insulin degludec 200 unit/mL (3 40 unit (0.2 mL) subcut DAILY #12 06/21/21 06/01/22 mL) subcutaneous pen (Tresiba mL FlexTouch U-200 insulin) pen needle, diabetic, safety 30 #100 ea 07/21/21 06/01/22 gauge x 1/3 (Novofine Autocover) Wheelchair (manual) #1 ea 03/01/22 06/01/22 metformin 500 mg tablet,extended 500 mg PO DAILY #90 tabs 03/07/22 06/01/22 release 24 hr naproxen 375 mg tablet 375 mg PO .daily in AM PRN pain 03/09/22 06/01/22 #90 tabs gabapentin 300 mg capsule 300 mg PO BID #180 caps 04/09/22 06/01/22 metoprolol succinate 25 mg 25 mg PO DAILY #90 tabs 05/30/22 06/01/22 tablet,extended release 24 hr pantoprazole 40 mg tablet,delayed 40 mg PO DAILY #90 tab-caps 05/30/22 06/01/22 release rosuvastatin 10 mg tablet 10 mg PO DAILY #90 tabs 05/30/22 06/01/22 clindamycin HCl 300 mg capsule 600 mg PO TID 05/31/22 06/01/22 levothyroxine 50 mcg tablet 50 mcg PO DAILY 06/01/22 06/01/22 Previous Rx's Medication Instructions Recorded budesonide-formoterol HFA 80 2 puff inhalation BID ##3 01/28/17 mcg-4.5 mcg/actuation aerosol inhaler (Symbicort) lancets (OneTouch UltraSoft #400 ea 11/03/20 Lancets) blood sugar diagnostic #400 ea 04/19/21 blood-glucose meter (ConsultedTouch #1 ea 04/19/21 Ultra2 Meter kit) Air mattress #1 ea 06/15/21 albuterol sulfate 90 mcg/actuation 1 - 2 puff inhalation Q4H PRN #18 06/21/21 aerosol inhaler (ProAir HFA) grams insulin degludec 200 unit/mL (3 40 unit (0.2 mL) subcut DAILY #12 06/21/21 mL) subcutaneous pen (Tresiba mL FlexTouch U-200 insulin) pen needle, diabetic, safety 30 #100 ea 07/21/21 gauge x 1/3 (Novofine Team-Matchover) Wheelchair (manual) #1 ea 03/01/22 metformin 500 mg tablet,extended 500 mg PO DAILY #90 tabs 03/07/22 release 24 hr naproxen 375 mg tablet 375 mg PO .daily in AM PRN pain 03/09/22 #90 tabs gabapentin 300 mg capsule 300 mg PO BID #180 caps 04/09/22 metoprolol succinate 25 mg 25 mg PO DAILY #90 tabs 05/30/22 tablet,extended release 24 hr pantoprazole 40 mg tablet,delayed 40 mg PO DAILY #90 tab-caps 05/30/22 release rosuvastatin 10 mg tablet 10 mg PO DAILY #90 tabs 05/30/22 Allergies Allergy/AdvReac Type Severity Reaction Status Date / Time bupropion HCl Allergy Severe seizures Verified 05/28/22 03:10 [From Wellbutrin] carvedilol [From Coreg] Allergy Mild Itching Verified 05/28/22 03:10 morphine AdvReac Unknown nausea Verified 05/28/22 03:10 General Stated Complaint: Diabetes DINESH: 3 Review of Systems Narrative: As per HPI PFSH All Active Problems (Updated 06/01/22 @ 16:40 by Evelio Hooks MD) Diabetic foot infection (Acute) Open toe wound (Acute) Nail avulsion, toe (Acute) L great toe Generalized weakness (Acute) Osteomyelitis of second toe of right foot (Acute) Cellulitis of toe (Acute) Urge incontinence (Chronic) Declines RX briefs Self-care deficit (Acute) Bedbound (Acute) gets up with WC to BR Recurrent falls (Chronic) Difficulty transferring from bed to wheelchair (Chronic) DME hospital bed has helped Difficulty transferring from toilet to wheelchair (Chronic) Steph investigating commode Wheelchair bound (Chronic) no falls since starting using WC permanent need severe diabetic nephropathy needs more adaptive equipment in the home Cognitive attention deficit (Chronic) needs multiple repetitions of information Diabetes type 2, uncontrolled (Chronic) though she has had education over the years, still seems not to understand carb counting ideally needs someone to educate son as he buys her food also needs hands-on teaching with nutrition labels, etc. 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) Goal A1c < 7.5% Schein, neuropathy; Charcot's foot 03/19/13 [employer] Spinal stenosis of lumbar region with neurogenic claudication (Chronic 12/08/13) 04/13/2013 MRI Lumbar Spine: Facet arthropathy, DJD, L4-5, L5-S1 central spinal and neural foraminal stenosis Neurosurgery referral, but not a surgical candidate [facility] chronic pain service Chronic Pain [facility] consult 10/26/15 [facility] consult 03/04/17 (Sanket Sawant MD) Other and unspecified hyperlipidemia (Chronic 08/14/12) Esophageal reflux disease (Chronic 07/24/11) UPPER GI SERIES 11/14/2012, MOD HIATAL HERNIA SEVERE GERD Coronary artery disease involving [place] coronary artery of [place] heart (Chronic) INFERIOR [place] 1996, 100% RCA occlusion; large inf defect on perfusion scan, dr Fair Chronic kidney disease, stage III (moderate) (Chronic 08/14/12) Cortical atrophy R kidney on CT 07/2014; multiple cysts Cardiomyopathy (Chronic) Dr Fair, EF 45% Jun 2014 ECHO (h/o much worse) 10/2016 ECHO: EF 40-45% 10/2016 MPI: no acute, but persistent old infarct COPD, mild (Chronic 07/02/17) PFTs Abdominal aortic aneurysm (Chronic 11/27/12) Identified 10/31/12 CT abd-pelvis; 4cm; stable 4.1 cm 07/2014 CT, 4.3cm 11/2016, 5.5cm 03/04/17 ([facility] 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 Guerra DJD of right shoulder (01/01/13) 12/2012 x-ray severe DJD glenohumeral joint Dr. Guerra; not a surgical candidate for replacement DNI (do not intubate) DNR (do not resuscitate) Encounter for hospice care Episode of seizures in July 2012 Goals of care, counseling/discussion DNR/DNI COLST done wants to stay home may need new agent if/when Steph moves out of state as planned Iron deficiency anemia Mass of both parotid glands Abnormal CT 08/2019 Mild pulmonary hypertension Nausea and vomiting (08/01/14) a. previous history of possible marijuana induced hyperemesis Osteoarthritis of left elbow Palliative care patient Perirectal abscess With associated hospitalization 2019 POLST (Physician Orders for Life-Sustaining Treatment) signed 06/01/20 Pulmonary embolism (~12/2021) Never started anticoagulation RLS (restless legs syndrome) Tinea corporis Surgical History Appendectomy Childhood surgery, no date given by pt.HE Hemiarthroplasty (06/13/15) Dr Charlie Gallardo shoulder History of carpal tunnel release of both wrists (~05/2012) Hx of umbilical hernia repair (09/06/15) Incarcerated umbilical hernia repair (09/06/15) Tonsillectomy childhood surgery, no date given by pt.HE Family History Mother , at 73 yo from dementia Dementia Diabetes Stroke Blind Father , MVA (truck) accident at 45yo No problems noted. Sister Age: 62 Thyroid cancer Brother , from complications of diabetes age 60 Diabetes Brother Diabetes Heart disease Colon cancer Ulcerative colitis Sister Obesity Prediabetes Arthritis Son Substance abuse attends [employer] [facility]; h/o heroin and other opioid addiction Other FH: mental illness Social History Smoking/Tobacco Use Status: Current every day Tobacco Type: cigarettes Tobacco: How many years used: 54 Quit status: not considering quitting Counseling given: counseling >3 minutes Smoking risk assessment performed?: Yes Alcohol Intake: former Drug use: Daily Substance use type: marijuana Counseling given: Yes Details: pt states she smokes marijuana on a daily basis x1 per day Adopted: No Caregiver/Support person: Yes Foster care: No Household members: children Housing: house Number of Children: 1 number of grandchildren: 0 Communication Needs: Corrective Lenses Education Level: high school Details: didn't finish sophomore year Do you need help understanding health information?: Always 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; 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 Pets and animals: Yes Current gender identity: female What is your relationship status?: How often do you talk on the phone with friends or family?: three or more times per week How often do you get together with friends or relatives?: twice per week Panel score (0-1 are the most socially isolated patients): 1 What type of physical activity do you participate in: none and wheelchair-bound Special eliana needs: No Seatbelt use: sometimes Working smoke detector in home: Yes Fire extinguisher in home: Yes Do you feel safe at home: Yes (Most of the time, yes I feel better if my son or somebody is there) Do you feel safe in your relationship?: Yes Additional Social history: Patient reports she lives with her son Exam Narrative Exam Narrative: Const: WDWN elderly female in NAD. HEENT: NC/AT. Normal facial exam. Eyes: Normal conjunctiva and sclera. Neck: Supple. Lungs: Normal respiratory effort. Lungs are clear. Cor: Irregular rate without murmur/gallop. Good radial pulses. GI: Soft. NT/ND. No guarding or rebound. Neuro: A+O x 3. Normal speech, mentation. Cranial nerves II - XII grossly intact. No gross motor or sensory deficit. Ext: No C/C/E. Right toe erythematous, swollen, tender to palpation. Left big toe with avulsed nail and erythema, tender as well. DP pulses present bilaterally. Erythema isolated to the toes. Skin: Warm and dry Course Vital Signs Vital signs: Vital Signs Temperature 98.6 F 06/01/22 15:30 Pulse 82 06/01/22 15:30 Respiratory Rate 16 06/01/22 15:30 Blood Pressure 124/80 06/01/22 15:30 Pulse Oximetry 91 L 06/01/22 15:30 Temperature 98.6 F 06/01/22 15:30 Temperature Source Oral 06/01/22 15:30 Pulse 82 06/01/22 15:30 Respiratory Rate 16 06/01/22 15:30 Respiratory Effort Non-Labored 06/01/22 15:34 Blood Pressure 124/80 06/01/22 15:30 Pulse Oximetry 91 L 06/01/22 15:30 Oxygen Delivery Method Room Air 06/01/22 15:30 Oxygen Flow Rate 0 06/01/22 15:30
[2022-06-01 16:10] LABS: BE (Venous) 1 mmol/L (-2-3); HCO3 (Venous) 26 mmol/L (23-28); O2 Sat (Venous) 90 %; TCO2 (Venous) 23 mmol/L (24-29); pCO2 (Venous) 40 mmHg (41-51); pH (Venous) 7.42 (7.31-7.41); pO2 (Venous) 58 mmHg
[2022-06-01 16:12] LABS: Abs Immature Grans 0.06 10^3/uL (0.0-0.06); Absolute Basophil Count 0.04 10^3/uL (0.0-0.2); Absolute Eosinophil Count 0.23 10^3/uL (0.0-0.7); Absolute Lymphocyte Count 1.62 10^3/uL (1.2-3.4); Absolute Neutrophil Count 4.78 10^3/uL (1.2-6.7); Basophils % 0.6; Eosinophils % 3.2; HCT 35.4 % (36.0-46.0); HGB 11.2 g/dL (11.2-15.7); Immature Grans % 0.8; Lymphocytes % 22.4; MCH 25.7 pg (27.0-33.0); MCHC 31.6 % (32.0-36.0); MCV 81 fL (80-95); MPV 10.7 fL (8.0-11.0); Monocytes % 6.9; Neutrophils % 66.1; Platelet Count 239 10^3/uL (130-400); RBC 4.35 10^6/uL (3.93-5.22); RDW 15.4 % (11.7-14.6); WBC 7.23 10^3/uL (4.4-10.8)
[2022-06-01 16:15] LABS: ESR 37 mm/hr (0-30)
[2022-06-01] MEDS: Normal Saline 1,000 ML 1000 ML IV (16:22)
[2022-06-01] MEDS: PIPERACILLIN/TAZO 4.5 GM in Normal Saline 100 ML IVPB ×2 (16:23→23:56)
[2022-06-01 16:48] LABS: C-Reactive Protein 0.34 mg/dL (0.0-0.3); Magnesium 1.7 mg/dL (1.8-2.4)
[2022-06-01 16:58] LABS: ALT 19 U/L (14-59); AST 16 U/L (15-37); Albumin 3.3 g/dL (3.4-5.0); Alkaline Phosphatase 150 U/L (46-116); BUN 15 mg/dL (7-18); Bilirubin, Total 0.4 mg/dL (0.2-1.0); Calcium 9.8 mg/dL (8.5-10.1); Chloride 104 mmol/L (98-107); Estimated GFR 61.36 (mL/min/1.73m2); Glucose 389 mg/dL (74-106); Potassium 4.4 mmol/L (3.5-5.1); Sodium 136 mmol/L (136-145); Total Protein 7.1 g/dL (6.4-8.2)
[2022-06-01] MEDS: VANCOMYCIN/WATER (PEG) 2 GM/400 ML BAG IVPB (17:01)
[2022-06-01 17:18] LABS: Source Nasal/Nares
[2022-06-01 17:44] VITALS: BP 133/72; PULSE 78; RESP 18; O2SAT 92
--- NOTE | 2022-06-01 17:45 | NUR.NOTE ---
Nursing Note: pt incontinent of urine. pt changed and clean linen applied
[2022-06-01 17:50] LABS: COVID-19 PCR Negative (Negative)
--- NOTE | 2022-06-01 17:54 | HPE_ITS ---
Date of service: 06/01/22 Time of Service: 17:54 Assessment and Plan Assessment and plan (1) Diabetic foot infection: Status: Acute Assessment and plan: Continue broad-spectrum antibiotics including Zosyn and vancomycin. Consult with podiatry regarding right second toe osteomyelitis as well as care of her left great toe nail avulsion and cellulitis. Continue gabapentin for her peripheral neuropathy. I have added tramadol as needed for pain. Professional time spent interviewing and examining patient, discussion of goals of care with hospital team (care management, nursing and consulting margaux salcido) was 60 minutes. (2) Open toe wound: Status: Acute Assessment and plan: Podiatry consult and antibiotics as listed above Qualifiers: Encounter type: subsequent encounter Qualified Code(s): S91.109D - Unspecified open wound of unspecified toe(s) without damage to nail, subsequent encounter (3) Nail avulsion, toe: Status: Acute Assessment and plan: Podiatry consult Qualifiers: Encounter type: initial encounter Qualified Code(s): S91.209A - Unspecified open wound of unspecified toe(s) with damage to nail, initial encounter (4) Osteomyelitis of second toe of right foot: Status: Acute Assessment and plan: Consult podiatry as the patient likely will need amputation of the right second toe distal phalanx. Continue broad-spectrum antibiotics as above until source control is obtained if there is no bloodstream infection that short course of broad-spectrum IV antibiotic should suffice once source control has been obtained. (5) Diabetes type 2, uncontrolled: Status: Chronic Assessment and plan: Basal bolus since then along with carb coverage. I have put her on a insulin to carbohydrate ratio of 2 units insulin to 10 g of carbohydrates and put her on insulin resistant sliding scale NovoLog. Lantus 40 units nightly. Qualifiers: Glycemic state: with hyperglycemia Qualified Code(s): E11.65 - Type 2 diabetes mellitus with hyperglycemia (6) Nicotine dependence: Status: Chronic Assessment and plan: NicoDerm patch Qualifiers: Nicotine product type: cigarettes Substance use status: uncomplicated Qualified Code(s): F17.210 - Nicotine dependence, cigarettes, uncomplicated (7) COPD, mild: Status: Chronic Assessment and plan: Continue her Symbicort along with as needed DuoNeb aerosol treatments. Currently does not appear to be having an acute exacerbation of her COPD. Continue nicotine replacement with transdermal nicotine. (8) Chronic kidney disease, stage III (moderate): Status: Chronic Assessment and plan: Monitor renal function avoid nephrotoxins. May need to adjust antibiotic dosage based on her renal clearance. Qualifiers: Chronic kidney disease stage 3 subtype: unspecified whether 3a or 3b Qualified Code(s): N18.30 - Chronic kidney disease, stage 3 unspecified (9) Coronary artery disease involving grand [place] tribes coronary artery of grand ronde tribes heart: Status: Chronic Assessment and plan: Continue rosuvastatin and pulse ox today. Does not appear the patient was on any antiplatelet therapy. Given that she has poor peripheral circulation she probably should be on some antiplatelet therapy or even Pletal. (10) Hypertension: Status: Chronic Qualifiers: Hypertension type: essential hypertension Qualified Code(s): I10 - Essential (primary) hypertension (11) Hypothyroidism: Status: Chronic Assessment and plan: Continue current levothyroxine. History of Present Illness History of Present Illness Chief Complaint: diabetic foot infection Narrative: 67 yr old IDDM (poorly controlled w/ HbA1c of 12.4% as of 05/29/22), also CAD, COPD, ischemic cardiomyopathy and CKD who presents to the ED from her home aft er home visit by her PCP after failed outpatient antibiotics (clindamycin) for cellulitis, possible osteomyelitis of R. 2nd toe (suggested on xray taken in the ER on 05/22/22. She has been seen in the ER initially on 05/22/22 for the infection and prescribed clindamycin and referred to podiatry for follow up which she did not follow up. She was in the ER on 05/28/22 after she had a fall w/closed head (no acute pathology on head, c-spine and T-spine CT scans). She was seen by Dr. Hooks in the ED today and found to have increased redness and swelling of the right 2nd toe and now has redness and swelling and avulsion of the nail on the left great toe. patient is now admitted for parenteral antibiotics (was started on Zosyn and Vancomycin while in the ER) and for podiatric consultation regarding treatment of diabetic foot cellulitis and possible osteomyelitis of right 2nd toe. Review of Systems Constitutional Constitutional: Reports as per HPI PFSH All Active Problems Diabetic foot infection (Acute) Open toe wound (Acute) Nail avulsion, toe (Acute) L great toe Generalized weakness (Acute) Osteomyelitis of second toe of right foot (Acute) Cellulitis of toe (Acute) Urge incontinence (Chronic) Declines RX briefs Self-care deficit (Acute) Bedbound (Acute) gets up with WC to BR Recurrent falls (Chronic) Difficulty transferring from bed to wheelchair (Chronic) DME hospital bed has helped Difficulty transferring from toilet to wheelchair (Chronic) Steph investigating commode Wheelchair bound (Chronic) no falls since starting using WC permanent need severe diabetic nephropathy needs more adaptive equipment in the home Cognitive attention deficit (Chronic) needs multiple repetitions of information Diabetes type 2, uncontrolled (Chronic) though she has had education over the years, still seems not to understand carb counting ideally needs someone to educate son as he buys her food also needs hands-on teaching with nutrition labels, etc. 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 Ambulates with cane when out; walker at home 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) Goal A1c < 7.5% Schein, neuropathy; Charcot's foot 03/19/13 [employer] Spinal stenosis of lumbar region with neurogenic claudication (Chronic 12/08/13) 04/13/2013 MRI Lumbar Spine: Facet arthropathy, DJD, L4-5, L5-S1 central spinal and neural foraminal stenosis Neurosurgery referral, but not a surgical candidate [facility] chronic pain service Chronic Pain [facility] Pain Center consult 10/26/15 [facility] consult 03/04/17 (Sanket Sawant MD) Other and unspecified hyperlipidemia (Chronic 08/14/12) Esophageal reflux disease (Chronic 07/24/11) UPPER GI SERIES 11/14/2012, MOD HIATAL HERNIA SEVERE GERD Coronary artery disease involving grand ronde tribes coronary artery of grand ronde tribes heart (Chronic) INFERIOR [place] 1996, 100% RCA occlusion; large inf defect on perfusion scan, dr Fair Chronic kidney disease, stage III (moderate) (Chronic 08/14/12) Cortical atrophy R kidney on CT 07/2014; multiple cysts Cardiomyopathy (Chronic) Dr Fair, EF 45% Jun 2014 ECHO (h/o much worse) 10/2016 ECHO: EF 40-45% 10/2016 MPI: no acute, but persistent old infarct COPD, mild (Chronic 07/02/17) PFTs Abdominal aortic aneurysm (Chronic 11/27/12) Identified 10/31/12 CT abd-pelvis; 4cm; stable 4.1 cm 07/2014 CT, 4.3cm 11/2016, 5.5cm 03/04/17 ([facility]). 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 Guerra DJD of right shoulder (01/01/13) 12/2012 x-ray severe DJD glenohumeral joint Dr. Guerra; not a surgical candidate for replacement DNI (do not intubate) DNR (do not resuscitate) Encounter for hospice care Episode of seizures in July 2012 Goals of care, counseling/discussion DNR/DNI COLST done wants to stay home may need new agent if/when Steph moves out of state as planned Iron deficiency anemia Mass of both parotid glands Abnormal CT 08/2019 Mild pulmonary hypertension Nausea and vomiting (08/01/14) a. previous history of possible marijuana induced hyperemesis Osteoarthritis of left elbow Palliative care patient Perirectal abscess With associated hospitalization 2019 POLST (Physician Orders for Life-Sustaining Treatment) signed 06/01/20 Pulmonary embolism (~12/2021) Never started anticoagulation RLS (restless legs syndrome) Tinea corporis Surgical History Appendectomy Childhood surgery, no date given by pt.HE Hemiarthroplasty (06/13/15) Dr Charlie Gallardo shoulder History of carpal tunnel release of both wrists (~05/2012) Hx of umbilical hernia repair (09/06/15) Incarcerated umbilical hernia repair (09/06/15) Tonsillectomy childhood surgery, no date given by pt.HE Family History Mother , at 73 yo from dementia Dementia Diabetes Stroke Blind Father , MVA (truck) accident at 45yo No problems noted. Sister Age: 62 Thyroid cancer Brother , from complications of diabetes age 60 Diabetes Brother Diabetes Heart disease Colon cancer Ulcerative colitis Sister Obesity Prediabetes Arthritis Son Substance abuse attends [facility]; h/o heroin and other opioid addiction Other FH: mental illness Social History Smoking/Tobacco Use Status: Current every day Tobacco Type: cigarettes Tobacco: How many years used: 54 Quit status: not considering quitting Counseling given: counseling >3 minutes Smoking risk assessment performed?: Yes Alcohol Intake: former Drug use: Daily Substance use type: marijuana Counseling given: Yes Details: pt states she smokes marijuana on a daily basis x1 per day Adopted: No Caregiver/Support person: Yes Foster care: No Household members: children Housing: house Number of Children: 1 number of grandchildren: 0 Communication Needs: Corrective Lenses Education Level: high school Details: didn't finish sophomore year Do you need help understanding health information?: Always 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; 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 Pets and animals: Yes Current gender identity: female What is your relationship status?: How often do you talk on the phone with friends or family?: three or more times per week How often do you get together with friends or relatives?: twice per week Panel score (0-1 are the most socially isolated patients): 1 What type of physical activity do you participate in: none and wheelchair-bound Special eliana needs: No Seatbelt use: sometimes Working smoke detector in home: Yes Fire extinguisher in home: Yes Do you feel safe at home: Yes (Most of the time, yes I feel better if my son or somebody is there) Do you feel safe in your relationship?: Yes Additional Social history: Patient reports she lives with her son Rody Allergies and Home Medications Allergies Allergy/AdvReac Type Severity Reaction Status Date / Time bupropion HCl Allergy Severe seizures Verified 05/28/22 03:10 [From Wellbutrin] carvedilol [From Coreg] Allergy Mild Itching Verified 05/28/22 03:10 morphine AdvReac Unknown nausea Verified 05/28/22 03:10 Home Medications Medication Instructions Recorded Confirmed Type budesonide-formoterol HFA 80 2 puff inhalation BID ##3 01/28/17 06/01/22 Rx mcg-4.5 mcg/actuation aerosol inhaler (Symbicort) lancets ([email or web address] UltraSoft #400 ea 11/03/20 06/01/22 Rx Lancets) blood sugar diagnostic #400 ea 04/19/21 06/01/22 Rx blood-glucose meter ([email or web address] #1 ea 04/19/21 06/01/22 Rx Ultra2 Meter kit) Air mattress #1 ea 06/15/21 06/01/22 Rx albuterol sulfate 90 mcg/actuation 1 - 2 puff inhalation Q4H PRN #18 06/21/21 06/01/22 Rx aerosol inhaler (ProAir HFA) grams insulin degludec 200 unit/mL (3 40 unit (0.2 mL) subcut DAILY #12 06/21/21 06/01/22 Rx mL) subcutaneous pen (Tresiba mL FlexTouch U-200 insulin) pen needle, diabetic, safety 30 #100 ea 07/21/21 06/01/22 Rx gauge x 1/3 (Novofine Autocover) Wheelchair (manual) #1 ea 03/01/22 06/01/22 Rx metformin 500 mg tablet,extended 500 mg PO DAILY #90 tabs 03/07/22 06/01/22 Rx release 24 hr naproxen 375 mg tablet 375 mg PO .daily in AM PRN pain 03/09/22 06/01/22 Rx #90 tabs gabapentin 300 mg capsule 300 mg PO BID #180 caps 04/09/22 06/01/22 Rx metoprolol succinate 25 mg 25 mg PO DAILY #90 tabs 05/30/22 06/01/22 Rx tablet,extended release 24 hr pantoprazole 40 mg tablet,delayed 40 mg PO DAILY #90 tab-caps 05/30/22 06/01/22 Rx release rosuvastatin 10 mg tablet 10 mg PO DAILY #90 tabs 05/30/22 06/01/22 Rx clindamycin HCl 300 mg capsule 600 mg PO TID 05/31/22 06/01/22 History levothyroxine 50 mcg tablet 50 mcg PO DAILY 06/01/22 06/01/22 History Exam Narrative Exam Narrative: Elderly white female who appears to be older than her stated age of 67 who appears to be disheveled and unkempt. Seems to be very irritable cursing at her nurses and throwing them out of the room (figuratively) HEENT is remarkable for dry mucous membranes oropharynx is noninjected no exudates she is edentulous, pupils are midpoint and equally reactive full extraocular motion intact sclera anicteric Neck is supple no JVD normal carotid pulses no bruits no adenopathy Lungs are clear to auscultation Heart is regular rate and rhythm with a soft grade 2/3 systolic murmur over the apex no thrill or heave or gallop Abdomen soft nontender she has a well healed surgical scar below the umbilicus no palpable masses no bruits Lower extremities she has palpable pedal and popliteal pulses but her pedal pulses were weak. Right second toe has a macerated ulcer with drainage of purulent material over the lateral aspect of the distal phalanx. Left great toe has some redness and loss of the great toenail right second toe is sensitive to touch and painful. Neuro exam no focal motor deficits sensory exam grossly intact to light touch except over her feet however the right great toe seems to be in pain and very sensitive to touch Results Labs Result diagrams: 06/01/22 16:00 06/01/22 16:00 Labs: Laboratory Results - last 24 hr 06/01/22 06/01/22 06/01/22 16:00 16:00 16:00 WBC RBC Hgb Hct MCV MCH MCHC RDW Plt Count MPV Immature Gran % Neutrophils % Lymphocytes % Monocytes % Eosinophils % Basophils % Nucleated RBC % Absolute Neutrophils Absolute Lymphocytes Absolute Monocytes Absolute Eosinophils Absolute Basophils ESR 37 H VBG pH 7.42 H VBG pCO2 40 L VBG pO2 58 VBG HCO3 26 VBG Total CO2 23 L VBG O2 Saturation 90 VBG Base Excess 1 Sodium Potassium Chloride Carbon Dioxide Anion Gap BUN Creatinine Est GFR (CKD-EPI 2020) Glucose Calcium Magnesium 1.7 L Total Bilirubin AST ALT Alkaline Phosphatase C-Reactive Protein 0.34 H Total Protein Albumin COVID-19 Source 06/01/22 06/01/22 06/01/22 16:00 16:00 17:15 WBC 7.23 RBC 4.35 Hgb 11.2 Hct 35.4 L MCV 81 MCH 25.7 L MCHC 31.6 L RDW 15.4 H Plt Count 239 MPV 10.7 Immature Gran % 0.8 Neutrophils % 66.1 Lymphocytes % 22.4 Monocytes % 6.9 Eosinophils % 3.2 Basophils % 0.6 Nucleated RBC % 0.0 Absolute Neutrophils 4.78 Absolute Lymphocytes 1.62 Absolute Monocytes 0.50 Absolute Eosinophils 0.23 Absolute Basophils 0.04 ESR VBG pH VBG pCO2 VBG pO2 VBG HCO3 VBG Total CO2 VBG O2 Saturation VBG Base Excess Sodium 136 Potassium 4.4 Chloride 104 Carbon Dioxide 25.0 Anion Gap 7.0 BUN 15 Creatinine 1.0 Est GFR (CKD-EPI 2020) 61.36 Glucose 389 H Calcium 9.8 Magnesium Total Bilirubin 0.4 AST 16 ALT 19 Alkaline Phosphatase 150 H C-Reactive Protein Total Protein 7.1 Albumin 3.3 L COVID-19 Source Nasal/Nares Last Vital Signs Temp 37.0 C 06/01/22 15:30 Pulse 78 06/01/22 17:44 Resp 18 06/01/22 17:44 BP 133/72 06/01/22 17:44 Pulse Ox 92 06/01/22 17:44 Time Spent Time spent with Patient: 55-74 minutes Time was spent: preparing to see the patient(eg.review tests), obtaining and/or reviewing separately otained hiistory, ordering medications,tests, procedures, referring, communicating with other health infant childcare provider, indepentently interpreting results, counseling the patient and care coordination
[2022-06-01 18:11] VITALS: BP 123/66; PULSE 101; RESP 20; TEMP 36.7; O2SAT 93
[2022-06-01] MEDS: Normal Saline 1,000 ML 150 ML IV (18:44)
[2022-06-01] MEDS: Gabapentin 300 MG CAP PO (19:48)
[2022-06-01] MEDS: Enoxaparin 40 MG/0.4 ML SYR SC (19:48)
[2022-06-01 21:08] LABS: Glucose 442 mg/dL (74-106)
[2022-06-01] MEDS: Insulin Aspart 300 UNITS/3 ML PEN SC (21:33)
[2022-06-01] MEDS: Insulin Glargine 300 UNITS/3 ML PEN 40 UNITS SC (21:34)
[2022-06-01] MEDS: Melatonin 3 MG TAB 9 MG PO (21:35)
[2022-06-01] MEDS: Budesonide/Formoterol 80/4.5 6.9 GM 60 PUFF INH IH (21:36)
[2022-06-01] MEDS: traMADol 50 MG TAB PO (22:17)
[2022-06-01 23:45] VITALS: BP 134/84; PULSE 98; RESP 16; TEMP 36.5; O2SAT 95
[2022-06-02] MEDS: Acetaminophen 325 MG TAB PO ×2 (00:37→21:12)
[2022-06-02] MEDS: LORazepam 0.5 MG TAB PO ×4 (00:38→21:12)
[2022-06-02 00:52] LABS: Bilirubin Negative (Negative); Blood Negative (Negative); Clarity Clear (Clear); Glucose >=1000 mg/dL (Negative); Ketones Negative (Negative); Leukocyte Esterase Negative (Negative); Nitrite Positive (Negative); Specific Gravity 1.015 (1.005-1.025); Urobilinogen 0.2 EU/dL (Up TO 0.2); pH 5.5 (5-8)
[2022-06-02 00:55] LABS: Bacteria Few HPF (Negative); C & S Indicated? Yes; Casts Negative LPF (Negative); Crystals Negative HPF (Negative); Epithelial Cells Few HPF (Negative); Mucus Negative (Negative); RBC Negative HPF (0-2)
[2022-06-02] MEDS: VANCOMYCIN 1,250 MG in Normal Saline 250 ML 166.667 MG IVPB (04:42)
[2022-06-02 06:20] LABS: Abs Immature Grans 0.05 10^3/uL (0.0-0.06); Absolute Basophil Count 0.07 10^3/uL (0.0-0.2); Absolute Eosinophil Count 0.32 10^3/uL (0.0-0.7); Absolute Lymphocyte Count 1.61 10^3/uL (1.2-3.4); Absolute Neutrophil Count 4.35 10^3/uL (1.2-6.7); Eosinophils % 4.6; HCT 31.8 % (36.0-46.0); HGB 9.9 g/dL (11.2-15.7); Immature Grans % 0.7; Lymphocytes % 23.3; MCH 25.6 pg (27.0-33.0); MCHC 31.1 % (32.0-36.0); MCV 82 fL (80-95); MPV 10.5 fL (8.0-11.0); Monocytes % 7.2; Neutrophils % 63.2; Platelet Count 208 10^3/uL (130-400); RBC 3.86 10^6/uL (3.93-5.22); RDW 15.5 % (11.7-14.6)
[2022-06-02 06:49] LABS: Anion Gap 8.2 mmol/L (3-11); BUN 13 mg/dL (7-18); CO2 23.8 mmol/L (21.0-32.0); CREATININE 0.8 mg/dL (0.55-1.02); Calcium 9.5 mg/dL (8.5-10.1); Chloride 108 mmol/L (98-107); Estimated GFR 80.21 (mL/min/1.73m2); Glucose 91 mg/dL (74-106); Potassium 4.2 mmol/L (3.5-5.1); Sodium 140 mmol/L (136-145); TSH (W/Ref FT4) 1.21 uIU/mL (0.36-3.74)
[2022-06-02 07:51] VITALS: BP 128/76; PULSE 78; RESP 19; TEMP 36.5; O2SAT 94
[2022-06-02] MEDS: Insulin Aspart 300 UNITS/3 ML PEN SC ×5 (08:32→20:56)
[2022-06-02] MEDS: PIPERACILLIN/TAZO 3.375 GM in Normal Saline 50 ML IV ×2 (08:34→15:45)
[2022-06-02] MEDS: Phenazopyridine 200 MG TAB PO ×2 (08:34→20:59)
[2022-06-02] MEDS: Rosuvastatin 10 MG TAB PO (08:35)
[2022-06-02] MEDS: Aspirin E.C. 81 MG TABEC PO (08:35)
[2022-06-02] MEDS: Levothyroxine 50 MCG TAB PO (08:35)
[2022-06-02] MEDS: Gabapentin 300 MG CAP PO ×2 (08:35→20:59)
[2022-06-02] MEDS: Metoprolol CR 25 MG TABCR PO (08:35)
[2022-06-02] MEDS: Pantoprazole 40 MG TABCR PO (08:35)
--- NOTE | 2022-06-02 10:57 | NUR.NOTE ---
Nursing Note: SUPERVISOR LOOPING 's express concern that patient has a constant urge to void and has had frequent dribbling with no significant void. This nurse asks them to bladder scan the patient. They return with a reading of 645. Nursing explains the risk of having that much urine retained in the bladder. She dopes not want a ejrez , but consents to a straight cath. Supplies are gathered and with the assistance of ACE 's Sara and Ankita, Patient is positioned , Using sterile technique Catheter is inserted and 540 cc of urine is removed from the bladder. Post bladder scan is 0. Patient is cleaned up and made comfortable. Noted that she also had a yeast infection. All findings reported to CCC and provider. Staff ask to bladder scan again in 6 hours
[2022-06-02] MEDS: traMADol 50 MG TAB PO ×2 (11:24→18:12)
--- NOTE | 2022-06-02 13:31 | PDOC.CMIN ---
- If Service Date Differs Date of service: 06/02/22 Time of Service: 13:31 Care Management Initial Assess REASON FOR HOSPITALIZATION:: Diabetic foot infection. PAST MEDICAL HISTORY/PAST SURGICAL HISTORY:: All Active Problems: Diabetic foot infection (Acute). Open toe wound (Acute). Nail avulsion, toe (Acute) - L great toe. Generalized weakness (Acute). Osteomyelitis of second toe of right foot (Acute). Cellulitis of toe (Acute). Urge incontinence (Chronic) - Declines RX briefs. Self-care deficit (Acute). Bedbound (Acute) - gets up with WC to BR. Recurrent falls (Chronic). Difficulty transferring from bed to wheelchair (Chronic) - [facility] [place]. Difficulty transferring from toilet to wheelchair (Chronic) - Steph investigating commode. Wheelchair bound (Chronic) -. no falls since starting using WC, permanent need, severe diabetic nephropathy, needs more adaptive equipment in the home. Cognitive attention deficit (Chronic) - needs multiple repetitions of information. Diabetes type 2, uncontrolled (Chronic) - though she has had education over the years, still seems not to understand carb counting, ideally needs someone to educate son as he buys her food, also needs hands-on teaching with nutrition labels, etc. Obesity (BMI 30-39.9) (Chronic). Noncompliance with medication regimen (Chronic). Nicotine dependence (Chronic). 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) - Goal A1c < 7.5%, Schein, neuropathy; Charcot's foot 03/19/13, [employer]. Spinal stenosis of lumbar region with neurogenic claudication (Chronic 12/08/13) -04/13/2013 MRI Lumbar Spine: Facet arthropathy, DJD, L4-5, L5-S1 central spinal and neural foraminal stenosis, Neurosurgery referral, but not a surgical candidate, [facility] chronic pain service, Chronic Pain, [facility] consult 10/26/15, [facility] [place] 03/04/17 (Sanket Sawant MD). Other and unspecified hyperlipidemia (Chronic 08/14/12). Esophageal reflux disease (Chronic 07/24/11) - UPPER GI SERIES 11/14/2012, MOD HIATAL HERNIA SEVERE GERD. Coronary artery disease involving [place] coronary artery of [place] heart (Chronic) - INFERIOR MT 1996, 100% RCA occlusion; large inf defect on perfusion scan, dr Fair. Chronic kidney disease, stage III (moderate) (Chronic 08/14/12) - Cortical atrophy R kidney on CT 07/2014; multiple cysts. Cardiomyopathy (Chronic) -. Dr Fair, EF 45% Jun 2014 ECHO (h/o much worse), 10/2016 ECHO: EF 40-45%, 10/2016 MPI: no acute, but persistent old infarct. COPD, mild (Chronic 07/02/17) - PFTs. Abdominal aortic aneurysm (Chronic 11/27/12) -. Identified 10/31/12 CT abd-pelvis; 4cm; stable 4.1 cm 07/2014 CT, 4.3cm 11/2016, 5.5cm 03/04/17 [place] not sure if it is worth following her AAA, as she is not surgical candidate, defer to PCP. Chronic back pain (Chronic) - Lumbar spinal stenosis-->RX FENTANYL initiated inpt 12/2021; PCP rx'ing with [facility] under palliative conditions (pt cannot come in for OVs). Hypothyroidism (Chronic). Hypertension (Chronic). Marijuana dependence (Chronic) - Daily use since 17yo-->helps with mood & pain. Medical History: Anaerobic bacteremia. Arthropathy associated with neurological disorder (03/19/13) - Dr. Ward. Bacteremia due to Gram-positive bacteria. Calculus of kidney and ureter. Carpal tunnel syndrome (08/14/12) - resolved s/p b/l release. Cellulitis of foot. Depressive disorder (08/14/12). DJD of left shoulder (01/01/13) - Dr. Guerra. DJD of right shoulder (01/01/13) - 12/2012 x-ray severe DJD glenohumeral joint, Dr. Guerra; not a surgical candidate for replacement. DNI (do not intubate). DNR (do not resuscitate). Encounter for hospice care. Episode of seizures in July 2012. Goals of care, counseling/discussion - DNR/DNI, COLST done, wants to stay home, may need new agent if/when Steph moves out of state as planned. Iron deficiency anemia. Mass of both parotid glands -. Abnormal CT 08/2019. Mild pulmonary hypertension. Nausea and vomiting (08/01/14) a. previous history of possible marijuana induced hyperemesis. Osteoarthritis of left elbow. Palliative care patient. Perirectal abscess -. With associated hospitalization 2019. POLST (Physician Orders for Life-Sustaining Treatment) - signed 06/01/20. Pulmonary embolism (~12/2021) - Never started anticoagulation. RLS (restless legs syndrome). Tinea corporis. Surgical History: Appendectomy - Childhood surgery, no date given by pt.HE. Hemiarthroplasty (06/13/15) - Dr Guerra, Paulina shoulder. History of carpal tunnel release of both wrists (~05/2012). Hx of umbilical hernia repair (09/06/15). Incarcerated umbilical hernia repair (09/06/15). Tonsillectomy - childhood surgery, no date given by pt.HE. PREVIOUS FUNCTIONAL STATUS/SOCIAL/FAMILY SUPPORTS:: Carmel lives in [place] with her adult son, Ethan. She uses a wheelchair to get around her home and requires assistance with her ADLs. Carmel has a [employer] workers, a home health nurse, and a case sealer (Clair Stiles) through [facility]. CURRENT FUNCTIONAL STATUS:: Carmel is lying in bed when CM comes to meet with her. She is pleasant and easily engages in conversation but falls asleep while talking. CM will attempt to meet with her again tomorrow when she is awake and alert. ADVANCE DIRECTIVES:: COLST on file, sister Steph Gonzales is appointed as Healthcare Agent. Has patient been provided with info about the portal/API?: Yes Did the patient sign up for the portal?: Yes (Previously enrolled) CODE STATUS:: DNR/DNI INSURANCE COVERAGE / FINANCIAL ISSUES:: Medicare and Medicaid. CURRENT HOME/COMMUNITY SERVICES/EQUIPMENT:: [employer], home health RN and case sealer (Clair Stiles). She has a wheelchair, ramp, commode, grab bars and tub seat. She uses [facility] for transportation needs. PRIMARY CARE PHYSICIAN:: julieta Irene. POTENTIAL DISCHARGE NEEDS:: Follow up appointments with PCP and podiatry and potential SNF placement. PATIENT/FAMILY EDUCATION NEEDS:: Review of discharge instructions and discuss Ask Me Three. ANTICIPATED BARRIERS TO DISCHARGE:: None identified at this time. TRANSPORTATION:: To be determined by disposition. PLAN:: Carmel will likely require a SNF placement when medically cleared vs. going home with a resumption of home health services. She will follow up with her PCP, podiatry and plan of care as prescribed. Transportation is undetermined at this time as it is dependent on disposition. CM will continue to support Carmel and any discharge planning needs.
[2022-06-02] MEDS: VANCOMYCIN/WATER (PEG) 1 GM/200 ML BAG IVPB (13:46)
[2022-06-02 14:40] VITALS: BP 150/76; PULSE 71; RESP 20; TEMP 36.6; O2SAT 95
--- NOTE | 2022-06-02 14:48 | W.PM.PROGNOT ---
Date of Service Date of service: 06/02/22 Time of Service: 14:48 Assessment and Plan Assessment and plan (1) Diabetic foot infection: Status: Acute Assessment and plan: Continue broad-spectrum antibiotics including Zosyn and vancomycin. Consult with podiatry regarding right second toe osteomyelitis as well as care of her left great toe nail avulsion and cellulitis. Continue gabapentin for her peripheral neuropathy. (2) Open toe wound: Status: Acute Assessment and plan: Podiatry consult and antibiotics as listed above Qualifiers: Encounter type: subsequent encounter Qualified Code(s): S91.109D - Unspecified open wound of unspecified toe(s) without damage to nail, subsequent encounter (3) Nail avulsion, toe: Status: Acute Assessment and plan: Podiatry consult Qualifiers: Encounter type: initial encounter Qualified Code(s): S91.209A - Unspecified open wound of unspecified toe(s) with damage to nail, initial encounter (4) Osteomyelitis of second toe of right foot: Status: Acute Assessment and plan: Consult podiatry as the patient likely will need amputation of the right second toe distal phalanx. Continue broad-spectrum antibiotics as above until source control is obtained if there is no bloodstream infection that short course of broad-spectrum IV antibiotic should suffice once source control has been obtained. follow inflammatory markers. (5) Diabetes type 2, uncontrolled: Status: Chronic Assessment and plan: continue current diabetes management as controlled well here A1C 12.4 06/04 Qualifiers: Glycemic state: with hyperglycemia Qualified Code(s): E11.65 - Type 2 diabetes mellitus with hyperglycemia (6) Nicotine dependence: Status: Chronic Assessment and plan: NicoDerm patch Qualifiers: Nicotine product type: cigarettes Substance use status: uncomplicated Qualified Code(s): F17.210 - Nicotine dependence, cigarettes, uncomplicated (7) COPD, mild: Status: Chronic Assessment and plan: Continue her Symbicort along with as needed DuoNeb aerosol treatments. Currently does not appear to be having an acute exacerbation of her COPD. Continue nicotine replacement with transdermal nicotine. (8) Chronic kidney disease, stage III (moderate): Status: Chronic Assessment and plan: Monitor renal function avoid nephrotoxins. Qualifiers: Chronic kidney disease stage 3 subtype: unspecified whether 3a or 3b Qualified Code(s): N18.30 - Chronic kidney disease, stage 3 unspecified (9) Coronary artery disease involving [place] coronary artery of [place] heart: Status: Chronic Assessment and plan: Continue rosuvastatin and pulse ox today. Does not appear the patient was on any antiplatelet therapy. Given that she has poor peripheral circulation she probably should be on some antiplatelet therapy or even Pletal. (10) Hypertension: Status: Chronic Assessment and plan: blodd pressure controlled Qualifiers: Hypertension type: essential hypertension Qualified Code(s): I10 - Essential (primary) hypertension (11) Hypothyroidism: Status: Chronic Assessment and plan: Continue current levothyroxine. (12) DVT prophylaxis: Status: Acute Assessment and plan: enoxaparin daily (13) Discharge planning issues: Status: Acute Assessment and plan: will discharge home +/- home health services when medically ready discussed with Dr Mosley Subjective Subjective Patient reports: no new complaints, tolerating liquids well, tolerating a regular diet and afebrile; denies shortness of breath Exam Const General: no acute distress, disheveled, frail appearing and ill appearing chronically Nutritional Appearance: overweight Orientation: alert, awake and oriented x3 HENMT Head: normal to inspection, normocephalic and atraumatic Mouth: oral mucosae normal Teeth and gingiva: poor dentition (most teeth missing, decay, gingivitis) Resp Effort & Inspection: normal respiratory effort Auscultation: clear to auscultation bilaterally and diminished lung sounds (bases) bilaterally Cardio Rate: regular rate Rhythm: regular rhythm GI Inspection: normal to inspection Palpation: soft and nontender Skin General skin exam: other (necrotic 2nd toe on right, no significant erythema surrounding, no drainage) Lesions: lesion noted Neuro General: patient alert, patient awake and patient oriented x3 Cranial Nerves: CN's II-XI intact bilaterally Cognition: normal cognition Psych Appearance: disheveled Mental Status: mental status grossly normal Speech and Movement: speech and movement normal Mood: congruent mood Affect: normal affect Attitude: cooperative Objective Last Vital Signs Temp 36.6 C 06/02/22 14:40 Pulse 71 06/02/22 14:40 Resp 20 06/02/22 14:40 BP 150/76 H 06/02/22 14:40 Pulse Ox 95 06/02/22 14:40 Laboratory Results - last 24 hr 06/01/22 06/01/22 06/01/22 16:00 16:00 16:00 WBC RBC Hgb Hct MCV MCH MCHC RDW Plt Count MPV Immature Gran % Neutrophils % Lymphocytes % Monocytes % Eosinophils % Basophils % Nucleated RBC % Absolute Neutrophils Absolute Lymphocytes Absolute Monocytes Absolute Eosinophils Absolute Basophils ESR 37 H VBG pH 7.42 H VBG pCO2 40 L VBG pO2 58 VBG HCO3 26 VBG Total CO2 23 L VBG O2 Saturation 90 VBG Base Excess 1 Sodium Potassium Chloride Carbon Dioxide Anion Gap BUN Creatinine Est GFR (CKD-EPI 2020) Glucose Calcium Magnesium 1.7 L Total Bilirubin AST ALT Alkaline Phosphatase C-Reactive Protein 0.34 H Total Protein Albumin TSH Urine Color Urine Clarity Urine pH Ur Specific [place] Urine Protein Urine Ketones Urine Blood Urine Nitrite Urine Bilirubin Urine Urobilinogen Ur Leukocyte Esterase Urine RBC Urine WBC Ur Epithelial Cells Urine Crystals Urine Bacteria Urine Casts Urine Mucus Ur Culture Indicated? Urine Glucose COVID-19 Source SARS-CoV-2 (PCR) 06/01/22 06/01/22 06/01/22 16:00 16:00 17:15 WBC 7.23 RBC 4.35 Hgb 11.2 Hct 35.4 L MCV 81 MCH 25.7 L MCHC 31.6 L RDW 15.4 H Plt Count 239 MPV 10.7 Immature Gran % 0.8 Neutrophils % 66.1 Lymphocytes % 22.4 Monocytes % 6.9 Eosinophils % 3.2 Basophils % 0.6 Nucleated RBC % 0.0 Absolute Neutrophils 4.78 Absolute Lymphocytes 1.62 Absolute Monocytes 0.50 Absolute Eosinophils 0.23 Absolute Basophils 0.04 ESR VBG pH VBG pCO2 VBG pO2 VBG HCO3 VBG Total CO2 VBG O2 Saturation VBG Base Excess Sodium 136 Potassium 4.4 Chloride 104 Carbon Dioxide 25.0 Anion Gap 7.0 BUN 15 Creatinine 1.0 Est GFR (CKD-EPI 2020) 61.36 Glucose 389 H Calcium 9.8 Magnesium Total Bilirubin 0.4 AST 16 ALT 19 Alkaline Phosphatase 150 H C-Reactive Protein Total Protein 7.1 Albumin 3.3 L TSH Urine Color Urine Clarity Urine pH Ur Specific [place] Urine Protein Urine Ketones Urine Blood Urine Nitrite Urine Bilirubin Urine Urobilinogen Ur Leukocyte Esterase Urine RBC Urine WBC Ur Epithelial Cells Urine Crystals Urine Bacteria Urine Casts Urine Mucus Ur Culture Indicated? Urine Glucose COVID-19 Source Nasal/Nares SARS-CoV-2 (PCR) Negative 06/01/22 06/02/22 06/02/22 20:40 00:00 05:55 WBC RBC Hgb Hct MCV MCH MCHC RDW Plt Count MPV Immature Gran % Neutrophils % Lymphocytes % Monocytes % Eosinophils % Basophils % Nucleated RBC % Absolute Neutrophils Absolute Lymphocytes Absolute Monocytes Absolute Eosinophils Absolute Basophils ESR VBG pH VBG pCO2 VBG pO2 VBG HCO3 VBG Total CO2 VBG O2 Saturation VBG Base Excess Sodium 140 Potassium 4.2 Chloride 108 H Carbon Dioxide 23.8 Anion Gap 8.2 BUN 13 Creatinine 0.8 Est GFR (CKD-EPI 2020) 80.21 Glucose 442 H 91 Calcium 9.5 Magnesium Total Bilirubin AST ALT Alkaline Phosphatase C-Reactive Protein Total Protein Albumin TSH 1.21 Urine Color Yellow Urine Clarity Clear Urine pH 5.5 Ur Specific [place] 1.015 Urine Protein 30 H Urine Ketones Negative Urine Blood Negative Urine Nitrite Positive H Urine Bilirubin Negative Urine Urobilinogen 0.2 Ur Leukocyte Esterase Negative Urine RBC Negative Urine WBC 10-20 H Ur Epithelial Cells Few Urine Crystals Negative Urine Bacteria Few Urine Casts Negative Urine Mucus Negative Ur Culture Indicated? Yes Urine Glucose >=1000 H COVID-19 Source SARS-CoV-2 (PCR) 06/02/22 05:55 WBC 6.90 RBC 3.86 L Hgb 9.9 L Hct 31.8 L MCV 82 MCH 25.6 L MCHC 31.1 L RDW 15.5 H Plt Count 208 MPV 10.5 Immature Gran % 0.7 Neutrophils % 63.2 Lymphocytes % 23.3 Monocytes % 7.2 Eosinophils % 4.6 Basophils % 1.0 Nucleated RBC % 0.0 Absolute Neutrophils 4.35 Absolute Lymphocytes 1.61 Absolute Monocytes 0.50 Absolute Eosinophils 0.32 Absolute Basophils 0.07 ESR VBG pH VBG pCO2 VBG pO2 VBG HCO3 VBG Total CO2 VBG O2 Saturation VBG Base Excess Sodium Potassium Chloride Carbon Dioxide Anion Gap BUN Creatinine Est GFR (CKD-EPI 2020) Glucose Calcium Magnesium Total Bilirubin AST ALT Alkaline Phosphatase C-Reactive Protein Total Protein Albumin TSH Urine Color Urine Clarity Urine pH Ur Specific [place] Urine Protein Urine Ketones Urine Blood Urine Nitrite Urine Bilirubin Urine Urobilinogen Ur Leukocyte Esterase Urine RBC Urine WBC Ur Epithelial Cells Urine Crystals Urine Bacteria Urine Casts Urine Mucus Ur Culture Indicated? Urine Glucose COVID-19 Source SARS-CoV-2 (PCR) Time Spent with Patient Time Spent with Patient: 25-34 minutes Time was spent: preparing to see the patient(eg.review tests), obtaining and/or reviewing separately otained hiistory, ordering medications,tests, procedures, indepentently interpreting results and counseling the patient
[2022-06-02] MEDS: Fluconazole 100 MG TAB 400 MG PO (15:45)
[2022-06-02] MEDS: Enoxaparin 40 MG/0.4 ML SYR SC (18:12)
[2022-06-02] MEDS: Insulin Glargine 300 UNITS/3 ML PEN 40 UNITS SC (20:57)
[2022-06-02] MEDS: Melatonin 3 MG TAB 9 MG PO (20:59)
[2022-06-02] MEDS: Budesonide/Formoterol 80/4.5 6.9 GM 60 PUFF INH IH (20:59)
[2022-06-02 23:05] VITALS: BP 136/85; PULSE 88; RESP 20; TEMP 36.3; O2SAT 93
[2022-06-03] MEDS: Normal Saline Flush 10 ML SYR IVP (00:28)
[2022-06-03] MEDS: PIPERACILLIN/TAZO 3.375 GM in Normal Saline 50 ML IV ×3 (00:29→16:56)
[2022-06-03] MEDS: VANCOMYCIN/WATER (PEG) 1 GM/200 ML BAG IVPB ×3 (00:35→23:17)
[2022-06-03] MEDS: Normal Saline 500 ML 30 ML IV (01:44)
[2022-06-03 07:20] VITALS: BP 129/70; PULSE 60; RESP 19; TEMP 36.1; O2SAT 98
[2022-06-03] MEDS: Levothyroxine 50 MCG TAB PO (07:52)
[2022-06-03] MEDS: Gabapentin 300 MG CAP PO ×2 (07:52→19:47)
[2022-06-03] MEDS: Fluconazole 100 MG TAB 400 MG PO (07:52)
[2022-06-03] MEDS: Aspirin E.C. 81 MG TABEC PO (07:52)
[2022-06-03] MEDS: Phenazopyridine 200 MG TAB PO ×2 (07:53→19:48)
[2022-06-03] MEDS: Insulin Aspart 300 UNITS/3 ML PEN SC ×7 (07:53→19:56)
[2022-06-03] MEDS: Metoprolol CR 25 MG TABCR PO (07:53)
[2022-06-03] MEDS: Pantoprazole 40 MG TABCR PO (07:53)
[2022-06-03] MEDS: Rosuvastatin 10 MG TAB PO (07:53)
[2022-06-03 09:42] LABS: Vancomycin, Trough 23.2 ug/mL (10.0-20.0)
[2022-06-03] MEDS: Nystatin POWDER 60 GM JAR TP (09:42)
--- NOTE | 2022-06-03 10:14 | PGE_ITS ---
Date of Service Date of service: 06/03/22 Time of Service: 10:14 Assessment and Plan Assessment and plan (1) Diabetic foot infection: Status: Acute Assessment and plan: Continue broad-spectrum antibiotics including Zosyn and vancomycin. Consult with podiatry regarding right second toe osteomyelitis as well as care of her left great toe nail avulsion and cellulitis. Continue gabapentin for her peripheral neuropathy. (2) Open toe wound: Status: Acute Assessment and plan: Podiatry consult and antibiotics as listed above Qualifiers: Encounter type: subsequent encounter Qualified Code(s): S91.109D - Unspecified open wound of unspecified toe(s) without damage to nail, subsequent encounter (3) Nail avulsion, toe: Status: Acute Assessment and plan: Podiatry consult Qualifiers: Encounter type: initial encounter Qualified Code(s): S91.209A - Unspecified open wound of unspecified toe(s) with damage to nail, initial encounter (4) Osteomyelitis of second toe of right foot: Status: Acute Assessment and plan: Consult podiatry as the patient likely will need amputation of the right second toe distal phalanx. Continue broad-spectrum antibiotics as above until source control is obtained if there is no bloodstream infection that short course of broad-spectrum IV antibiotic should suffice once source control has been obtained. follow inflammatory markers. (5) Diabetes type 2, uncontrolled: Status: Chronic Assessment and plan: continue current diabetes management as controlled well here A1C 12.4 06/04 Qualifiers: Glycemic state: with hyperglycemia Qualified Code(s): E11.65 - Type 2 diabetes mellitus with hyperglycemia (6) Nicotine dependence: Status: Chronic Assessment and plan: NicoDerm patch Qualifiers: Nicotine product type: cigarettes Substance use status: uncomplicated Qualified Code(s): F17.210 - Nicotine dependence, cigarettes, uncomplicated (7) COPD, mild: Status: Chronic Assessment and plan: Continue her Symbicort along with as needed DuoNeb aerosol treatments. Currently does not appear to be having an acute exacerbation of her COPD. Continue nicotine replacement with transdermal nicotine. (8) Chronic kidney disease, stage III (moderate): Status: Chronic Assessment and plan: Monitor renal function avoid nephrotoxins. Qualifiers: Chronic kidney disease stage 3 subtype: unspecified whether 3a or 3b Qualified Code(s): N18.30 - Chronic kidney disease, stage 3 unspecified (9) Coronary artery disease involving [place] coronary artery of [place] heart: Status: Chronic Assessment and plan: Continue rosuvastatin and pulse ox today. Does not appear the patient was on any antiplatelet therapy. Given that she has poor peripheral circulation she probably should be on some antiplatelet therapy or even Pletal. (10) Hypertension: Status: Chronic Assessment and plan: blodd pressure controlled Qualifiers: Hypertension type: essential hypertension Qualified Code(s): I10 - Essential (primary) hypertension (11) Hypothyroidism: Status: Chronic Assessment and plan: Continue current levothyroxine. 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 Nutritional Appearance: overweight Orientation: alert, awake and oriented x3 HENMT Head: normal to inspection, normocephalic and atraumatic Mouth: oral mucosae normal Teeth and gingiva: poor dentition (most teeth missing, decay, gingivitis) Resp Effort & Inspection: normal respiratory effort Auscultation: clear to auscultation bilaterally and diminished lung sounds (bases) bilaterally Cardio Rate: regular rate Rhythm: regular rhythm GI Inspection: normal to inspection Palpation: soft and nontender Skin General skin exam: other (necrotic 2nd toe on right, no significant erythema surrounding, no drainage) Lesions: lesion noted Neuro General: patient alert, patient awake and patient oriented x3 Cranial Nerves: CN's II-XI intact bilaterally Cognition: normal cognition Psych Appearance: disheveled Mental Status: mental status grossly normal Speech and Movement: speech and movement normal Mood: congruent mood Affect: normal affect Attitude: cooperative Objective Last Vital Signs Temp 36.1 C L 06/03/22 07:20 Pulse 60 06/03/22 07:20 Resp 19 06/03/22 07:20 BP 129/70 06/03/22 07:20 Pulse Ox 98 06/03/22 07:20 Laboratory Results - last 24 hr 06/03/22 09:10 Vancomycin Trough 23.2 H* Time Spent with Patient Time Spent with Patient: 25-34 minutes Time was spent: preparing to see the patient(eg.review tests), obtaining and/or reviewing separately otained hiistory, ordering medications,tests, procedures and indepentently interpreting results
[2022-06-03] MEDS: LORazepam 0.5 MG TAB PO ×2 (13:57→18:41)
[2022-06-03 14:56] VITALS: BP 126/74; PULSE 63; RESP 18; TEMP 36.6; O2SAT 96
[2022-06-03] MEDS: Enoxaparin 40 MG/0.4 ML SYR SC (18:41)
[2022-06-03] MEDS: traMADol 50 MG TAB PO (19:48)
[2022-06-03] MEDS: Melatonin 3 MG TAB 9 MG PO (19:48)
[2022-06-03] MEDS: Insulin Glargine 300 UNITS/3 ML PEN 40 UNITS SC (19:56)
--- NOTE | 2022-06-03 20:03 | NUR.NOTE ---
Patient refused nystatin and clotrimazole powder/cream. I'm fine, I don't need that stuff. [employer] Product Owner attempted to inform patient of skin concerns,however patient's refusal remains. Nursing Note:
[2022-06-04] MEDS: PIPERACILLIN/TAZO 3.375 GM in Normal Saline 50 ML IV ×3 (01:08→18:02)
[2022-06-04 06:24] LABS: Abs Immature Grans 0.03 10^3/uL (0.0-0.06); Absolute Basophil Count 0.03 10^3/uL (0.0-0.2); Absolute Eosinophil Count 0.31 10^3/uL (0.0-0.7); Absolute Lymphocyte Count 1.12 10^3/uL (1.2-3.4); Absolute Monocyte Count 0.47 10^3/uL (0.1-0.8); Basophils % 0.4; HCT 35.3 % (36.0-46.0); HGB 11.3 g/dL (11.2-15.7); Immature Grans % 0.4; Lymphocytes % 14.4; MCV 81 fL (80-95); MPV 11.3 fL (8.0-11.0); Monocytes % 6.1; Neutrophils % 74.7; Platelet Count 224 10^3/uL (130-400); RBC 4.34 10^6/uL (3.93-5.22); RDW 15.4 % (11.7-14.6); RDW-SD 45.4 fL; WBC 7.76 10^3/uL (4.4-10.8)
[2022-06-04 06:33] LABS: ESR 47 mm/hr (0-30)
[2022-06-04 06:49] LABS: ALT 14 U/L (14-59); AST 13 U/L (15-37); Albumin 2.8 g/dL (3.4-5.0); Alkaline Phosphatase 121 U/L (46-116); Anion Gap 8.3 mmol/L (3-11); BUN 17 mg/dL (7-18); Bilirubin, Total 0.5 mg/dL (0.2-1.0); C-Reactive Protein 0.62 mg/dL (0.0-0.3); CO2 23.7 mmol/L (21.0-32.0); Chloride 103 mmol/L (98-107); Estimated GFR 61.36 (mL/min/1.73m2); Glucose 249 mg/dL (74-106); Potassium 4.7 mmol/L (3.5-5.1); Sodium 135 mmol/L (136-145); Total Protein 6.4 g/dL (6.4-8.2)
[2022-06-04 07:22] VITALS: BP 131/80; PULSE 68; RESP 18; TEMP 36.4; O2SAT 94
[2022-06-04] MEDS: Normal Saline Flush 10 ML SYR IVP ×2 (08:09→18:04)
[2022-06-04] MEDS: Insulin Aspart 300 UNITS/3 ML PEN SC ×5 (08:11→18:03)
[2022-06-04] MEDS: Aspirin E.C. 81 MG TABEC PO (08:13)
[2022-06-04] MEDS: Gabapentin 300 MG CAP PO ×2 (08:13→19:40)
[2022-06-04] MEDS: Levothyroxine 50 MCG TAB PO (08:13)
[2022-06-04] MEDS: Fluconazole 100 MG TAB 400 MG PO (08:13)
[2022-06-04] MEDS: Phenazopyridine 200 MG TAB PO ×2 (08:13→19:41)
[2022-06-04] MEDS: Pantoprazole 40 MG TABCR PO (08:13)
[2022-06-04] MEDS: Metoprolol CR 25 MG TABCR PO (08:13)
[2022-06-04] MEDS: Rosuvastatin 10 MG TAB PO (08:13)
[2022-06-04] MEDS: Nystatin POWDER 60 GM JAR TP ×2 (08:15→19:40)
[2022-06-04] MEDS: LORazepam 0.5 MG TAB PO ×3 (09:20→23:07)
[2022-06-04] MEDS: Normal Saline 500 ML 30 ML IV ×2 (09:34→12:29)
[2022-06-04] MEDS: Milk of Magnesia 30 ML CUP PO (11:48)
--- NOTE | 2022-06-04 11:56 | PHACLINREV_ITS ---
Pharmacy Admission Review - Admission Clinical Review (Last Reviewed 06/01/22 @ 19:09 by Jose A Espino MD) Discharge planning issues (Acute) DVT prophylaxis (Acute) Diabetic foot infection (Acute) Open toe wound (Acute) Nail avulsion, toe (Acute) Osteomyelitis of second toe of right foot (Acute) bupropion HCl [From Wellbutrin] Allergy (Severe, Verified 05/28/22 03:10) seizures carvedilol [From Coreg] Allergy (Mild, Verified 05/28/22 03:10) Itching morphine Adverse Reaction (Unknown, Verified 05/28/22 03:10) nausea Resuscitation Status DNR/DNI Height 5 ft 7 in Weight 85.3 kg - Renal Dosing Renal Dosing: BUN 17 mg/dL (7-18) 06/04/22 06:06 Creatinine 1.0 mg/dL (0.55-1.02) 06/04/22 06:06 Medications needing adjustments: Reviewed (crcl = 60, meds ok. monitor for decrease in kidney funcion, does have dx stage III CKD) - Anticoagulation Anticoagulation: Hgb 11.3 g/dL (11.2-15.7) 06/04/22 06:06 Hct 35.3 % (36.0-46.0) L 06/04/22 06:06 Plt Count 224 10^3/uL (130-400) 06/04/22 06:06 Creatinine 1.0 mg/dL (0.55-1.02) 06/04/22 06:06 DVT Prophylaxis: Reviewed Medications: Enoxaparin (enoxaparin 40 mg daily) Therapeutic Anticoagulation: N/A - Opiate Usage Evaluate Pain Scale/Pains Meds: N/A - Relevant Labs ESR 47 mm/hr (0-30) H 06/04/22 06:06 Sodium 135 mmol/L (136-145) L 06/04/22 06:06 Potassium 4.7 mmol/L (3.5-5.1) 06/04/22 06:06 Chloride 103 mmol/L (98-107) 06/04/22 06:06 Magnesium 1.7 mg/dL (1.8-2.4) L 06/01/22 16:00 C-Reactive Protein 0.62 mg/dL (0.0-0.3) H 06/04/22 06:06 Electrolytes, C-Reactive P, ESR: Reviewed - DM Control DM Control: Glucose 249 mg/dL (74-106) H 06/04/22 06:06 Finger Stick Blood Glucose 262 Finger Stick Blood Glucose 262 Finger Stick Blood Glucose 236 Finger Stick Blood Glucose 236 Finger Stick Blood Glucose 236 DM Control: Reviewed (a1c = 12.4% on 05/29/22) Insulin Dosing, Diabetic Medication: on insulin aspart sliding scale + 2 units per 10 g carb with meals, insulin glargine 40 units at bedtime. Uses insulin de gludec (Tresiba) at home, does not appear to use any short acting at home. Also on metformin ER 500 mg daily at home - Cardiac Review BP, HR, EF%: Reviewed (? start antiplatelet therapy -- CAD) - Qtc Review QTc: Reviewed (QTc = 458 on 06/01/22) - IV to PO Switch IV Medications: Reviewed (IV abx necessary at this point (source control - r/o osteo, bacteremia), switch to PO if/when appropriate) - Home Meds Home Med List reviewed: Reviewed Relevent Home Meds Not ordered & why?: Tresiba therapeutic sub to Lantus. Metformin not ordered, mentioned to provider - Current meds Current Medication Order Review: Reviewed Antibiotic Activity - Pharmacy Antibiotic Review Pharmacy Antibiotic Activity: Reviewed, no change - Antibiotic Information Antibiotic Review Info: diabetic foot cellulitis: clindamycin failed as outpt (Rx 05/23/22). now on zosyn 3.375 mg Q6h + fluconazole 400 mg PO daily + vanco 1 gram q12h (adjusted from q10h, trough on 06/03) New trough to be drawn 06/05 @ 1100, goal = 15-20 for possible osteomyelitis (10-15 if osteo ruled out)
--- NOTE | 2022-06-04 11:59 | CMPROGNOTE_ITS ---
- If Service Date Differs Date of service: 06/04/22 Time of Service: 11:59 Care Management Progress Note S/O: Carmel is lying in bed, snoring when CM met with her. Podiatry met with pt today with recommendation to continue with IV ABX and wound care. Palliative consult is ordered to discuss goals of care, since Carmel requested to leave against medical advise. CM is waiting for a return call from Clair Stiles pts [facility]. CM will continue to support Carmel and her discharge planning con siderations. A: 67 year old female admitted to [facility] on 06/01/22 for Diabetic foot infection P: Carmel will likely require a SNF placement when medically cleared vs. going home with a resumption of home health services. She will follow up with her PCP, podiatry and plan of care as prescribed. Transportation is undetermined at this time as it is dependent on disposition. CM will continue to support Carmel and any discharge planning needs.
[2022-06-04] MEDS: VANCOMYCIN/WATER (PEG) 1 GM/200 ML BAG IVPB ×2 (12:29→23:26)
--- NOTE | 2022-06-04 12:44 | POCOE_ITS ---
Date of service: 06/04/22 Time of Service: 12:30 Assessment and Plan Assessment and plan (1) Cellulitis of toe: Status: Acute Assessment and plan: The patient was evaluated and treated at bedside. Attempts were made to sharply debride thickened nails with nail nippers but only 6 nails were debrided before the patient started kicking and screaming. As for the R 2nd digit, although concerns are present radiographically for osteomyelitis at the tuft of the distal phalanx, these findings do not correlate with an area of open wound on the digit (distal digit is without full thickness wound nor probe to bone). However, an unstable eschar is noted laterally, with cellulitis. Recommendations were made for application of betadine every other day to the area, considering the lack of pulses palpable to today and signs of PAD. Considering lack of compliance, and clinical signs of PAD, surgery not indicated. Recommend continued IV Abx, application of betadine to the eschar every other day. Call with questions, . Qualifiers: Laterality: right Qualified Code(s): L03.031 - Cellulitis of right toe (2) Nail dystrophy: Status: Acute (3) Diabetes type 2, uncontrolled: Status: Chronic Qualifiers: Glycemic state: with hyperglycemia Qualified Code(s): E11.65 - Type 2 diabetes mellitus with hyperglycemia History of Present Illness History of Present Illness Chief Complaint: concerns for osteomyelitis, ingrown nail Narrative: Carmel is a 67 year old female, with Type II DM and CKD, whom I've been asked to evaluate for possible R 2nd digit osteomyelitis and a history of a L great toenail avulsion with infection. She was admitted for COPD and has been treated with IV Abx since admission. A history is difficult to obtain from the patient and she was not at all cooperative with treatment today. Consults Consult date: 06/04/22 [facility] All Active Problems (Updated 06/04/22 @ 12:52 by Daly Mcdonald DPM) Nail dystrophy (Acute) Discharge planning issues (Acute) DVT prophylaxis (Acute) Diabetic foot infection (Acute) Open toe wound (Acute) Nail avulsion, toe (Acute) L great toe Generalized weakness (Acute) Osteomyelitis of second toe of right foot (Acute) Cellulitis of toe (Acute) Urge incontinence (Chronic) Declines RX briefs Self-care deficit (Acute) Bedbound (Acute) gets up with WC to BR Recurrent falls (Chronic) Difficulty transferring from bed to wheelchair (Chronic) DME hospital bed has helped Difficulty transferring from toilet to wheelchair (Chronic) Steph investigating commode Wheelchair bound (Chronic) no falls since starting using WC permanent need severe diabetic nephropathy needs more adaptive equipment in the home Cognitive attention deficit (Chronic) needs multiple repetitions of information Diabetes type 2, uncontrolled (Chronic) though she has had education over the years, still seems not to understand carb counting ideally needs someone to educate son as he buys her food also needs hands-on teaching with nutrition labels, etc. 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) Goal A1c < 7.5% Schein, neuropathy; Charcot's foot 03/19/13 [employer] Spinal stenosis of lumbar region with neurogenic claudication (Chronic 12/08/13) 04/13/2013 MRI Lumbar Spine: Facet arthropathy, DJD, L4-5, L5-S1 central spinal and neural foraminal stenosis Neurosurgery referral, but not a surgical candidate [facility] chronic pain service Chronic Pain [facility] consult 10/26/15 [facility] consult 03/04/17 (Sanket Sawant MD) Other and unspecified hyperlipidemia (Chronic 08/14/12) Esophageal reflux disease (Chronic 07/24/11) UPPER GI SERIES 11/14/2012, MOD HIATAL HERNIA SEVERE GERD Coronary artery disease involving three affiliated coronary artery of three affiliated heart (Chronic) INFERIOR FL 1996, 100% RCA occlusion; large inf defect on perfusion scan, dr Fair Chronic kidney disease, stage III (moderate) (Chronic 08/14/12) Cortical atrophy R kidney on CT 07/2014; multiple cysts Cardiomyopathy (Chronic) Dr Fair, EF 45% Jun 2014 ECHO (h/o much worse) 10/2016 ECHO: EF 40-45% 10/2016 MPI: no acute, but persistent old infarct COPD, mild (Chronic 07/02/17) PFTs Abdominal aortic aneurysm (Chronic 07/18/13) Identified 10/31/12 CT abd-pelvis; 4cm; stable 4.1 cm 07/2014 CT, 4.3cm 11/2016, 5.5cm 03/04/17 ([facility] 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 Guerra DJD of right shoulder (01/01/13) 12/2012 x-ray severe DJD glenohumeral joint Dr. Guerra; not a surgical candidate for replacement DNI (do not intubate) DNR (do not resuscitate) Encounter for hospice care Episode of seizures in July 2012 Goals of care, counseling/discussion DNR/DNI COLST done wants to stay home may need new agent if/when Steph moves out of state as planned Iron deficiency anemia Mass of both parotid glands Abnormal CT 08/2019 Mild pulmonary hypertension Nausea and vomiting (08/01/14) a. previous history of possible marijuana induced hyperemesis Osteoarthritis of left elbow Palliative care patient Perirectal abscess With associated hospitalization 2019 POLST (Physician Orders for Life-Sustaining Treatment) signed 06/01/20 Pulmonary embolism (~12/2021) Never started anticoagulation RLS (restless legs syndrome) Tinea corporis Surgical History Appendectomy Childhood surgery, no date given by pt.HE Hemiarthroplasty (06/13/15) Dr Guerra R shoulder History of carpal tunnel release of both wrists (~05/2012) Hx of umbilical hernia repair (09/06/15) Incarcerated umbilical hernia repair (09/06/15) Tonsillectomy childhood surgery, no date given by pt.HE Family History Mother , at 73 yo from dementia Dementia Diabetes Stroke Blind Father , MVA (truck) accident at 45yo No problems noted. Sister Age: 62 Thyroid cancer Brother , from complications of diabetes age 60 Diabetes Brother Diabetes Heart disease Colon cancer Ulcerative colitis Sister Obesity Prediabetes Arthritis Son Substance abuse attends [facility]; h/o heroin and other opioid addiction Other FH: mental illness Social History Smoking/Tobacco Use Status: Current every day Tobacco Type: cigarettes Tobacco: How many years used: 54 Quit status: not considering quitting Counseling given: counseling >3 minutes Smoking risk assessment performed?: Yes Alcohol Intake: former Drug use: Daily Substance use type: marijuana Counseling given: Yes Details: pt states she smokes marijuana on a daily basis x1 per day Adopted: No Caregiver/Support person: Yes Foster care: No Household members: children Housing: house Number of Children: 1 number of grandchildren: 0 Communication Needs: Corrective Lenses Education Level: high school Details: didn't finish sophomore year Do you need help understanding health information?: Always 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; 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 Pets and animals: Yes Current gender identity: female What is your relationship status?: How often do you talk on the phone with friends or family?: three or more times per week How often do you get together with friends or relatives?: twice per week Panel score (0-1 are the most socially isolated patients): 1 What type of physical activity do you participate in: none and wheelchair-bound Special eliana needs: No Seatbelt use: sometimes Working smoke detector in home: Yes Fire extinguisher in home: Yes Do you feel safe at home: Yes (Most of the time, yes I feel better if my son or somebody is there) Do you feel safe in your relationship?: Yes Additional Social history: Patient reports she lives with her son Exam Cardio Other: DP/ PT pulses non-palpable, CFT delayed, pedal hair absent, delayed proximal to distal cooling, feet cool, changes in skin texture and turgor, nails discolored, dystrophic and thickened, thin shiny skin noted, dependent rubor present Skin Other: L hallucal nail avulsion site without erythema, purulence, fluctuance or signs of infection today. Unstable eschar lateral R 2nd digit, ~8 mm x ~2 cm, with serosanguinous drainage noted on the digits. Hyperkeratotic skin lesion is noted at the distal aspect of the digit, without disruption in the skin distally. The R 2nd digit is erythematous and edematous. No lymphangitis noted today. Nails digits 1-5 on the R and 2-5 on the L are slightly elongated and some thickened and discolored, some with subungual debris but with the exception of the 2nd digit, without erythema or signs of infection Neuro Other: unable to assess with the patient's lack of cooperation Extrem Other: lesser digital contractures noted Results Last Vital Signs Temp 97.5 F L 06/04/22 07:22 Pulse 68 06/04/22 07:22 Resp 18 06/04/22 07:22 BP 131/80 06/04/22 07:22 Pulse Ox 94 06/04/22 07:22 Labs Result diagrams: 06/04/22 06:06 06/04/22 06:06 Labs: Laboratory Results - last 24 hr 06/04/22 06/04/22 06/04/22 06:06 06:06 06:06 WBC 7.76 RBC 4.34 Hgb 11.3 Hct 35.3 L MCV 81 MCH 26.0 L MCHC 32.0 RDW 15.4 H Plt Count 224 MPV 11.3 H Immature Gran % 0.4 Neutrophils % 74.7 Lymphocytes % 14.4 Monocytes % 6.1 Eosinophils % 4.0 Basophils % 0.4 Nucleated RBC % 0.0 Absolute Neutrophils 5.80 Absolute Lymphocytes 1.12 L Absolute Monocytes 0.47 Absolute Eosinophils 0.31 Absolute Basophils 0.03 ESR 47 H Sodium 135 L Potassium 4.7 Chloride 103 Carbon Dioxide 23.7 Anion Gap 8.3 BUN 17 Creatinine 1.0 Est GFR (CKD-EPI 2020) 61.36 Glucose 249 H Calcium 10.0 Total Bilirubin 0.5 AST 13 L ALT 14 Alkaline Phosphatase 121 H C-Reactive Protein 0.62 H Total Protein 6.4 Albumin 2.8 L Imaging Imaging Studies: Xrays of the R foot were reviewed. Concerns present radiographically for periosteal resorption at the distal aspect of the distal phalanx, but not definitive, and not corresponding to an area of a current open wound today
--- NOTE | 2022-06-04 15:13 | W.PM.PROGNOT ---
Date of Service Date of service: 06/04/22 Time of Service: 15:13 Assessment and Plan Assessment and plan (1) Diabetic foot infection: Status: Acute Assessment and plan: Continue broad-spectrum antibiotics including Zosyn and vancomycin. Consult with podiatry regarding right second toe osteomyelitis as well as care of her left great toe nail avulsion and cellulitis. Continue gabapentin for her peripheral neuropathy. (2) Open toe wound: Status: Acute Assessment and plan: Podiatry consult and antibiotics as listed above Qualifiers: Encounter type: subsequent encounter Qualified Code(s): S91.109D - Unspecified open wound of unspecified toe(s) without damage to nail, subsequent encounter (3) Nail avulsion, toe: Status: Acute Assessment and plan: Podiatry consult Qualifiers: Encounter type: initial encounter Qualified Code(s): S91.209A - Unspecified open wound of unspecified toe(s) with damage to nail, initial encounter (4) Osteomyelitis of second toe of right foot: Status: Acute Assessment and plan: awaiting podiatry consultation, anticipate today follow inflammatory markers. (5) Diabetes type 2, uncontrolled: Status: Chronic Assessment and plan: continue current diabetes management as controlled well here A1C 12.4 06/04 Qualifiers: Glycemic state: with hyperglycemia Qualified Code(s): E11.65 - Type 2 diabetes mellitus with hyperglycemia (6) Nicotine dependence: Status: Chronic Assessment and plan: NicoDerm patch Qualifiers: Nicotine product type: cigarettes Substance use status: uncomplicated Qualified Code(s): F17.210 - Nicotine dependence, cigarettes, uncomplicated (7) COPD, mild: Status: Chronic Assessment and plan: Continue her Symbicort along with as needed DuoNeb aerosol treatments. Currently does not appear to be having an acute exacerbation of her COPD. Continue nicotine replacement with transdermal nicotine. (8) Chronic kidney disease, stage III (moderate): Status: Chronic Assessment and plan: Monitor renal function avoid nephrotoxins. Qualifiers: Chronic kidney disease stage 3 subtype: unspecified whether 3a or 3b Qualified Code(s): N18.30 - Chronic kidney disease, stage 3 unspecified (9) Coronary artery disease involving [place] coronary artery of [place] heart: Status: Chronic Assessment and plan: Continue rosuvastatin and pulse ox today. Does not appear the patient was on any antiplatelet therapy. Given that she has poor peripheral circulation she probably should be on some antiplatelet therapy or even Pletal. (10) Hypertension: Status: Chronic Assessment and plan: blood pressure controlled Qualifiers: Hypertension type: essential hypertension Qualified Code(s): I10 - Essential (primary) hypertension (11) Hypothyroidism: Status: Chronic Assessment and plan: Continue current levothyroxine. (12) DVT prophylaxis: Status: Acute Assessment and plan: enoxaparin daily (13) Discharge planning issues: Status: Acute Assessment and plan: will discharge home +/- home health services when medically ready discussed with Dr Mosley Subjective Subjective Patient reports: no new complaints, feels better, tolerating liquids well, tolerating a regular diet and afebrile; denies shortness of breath Interval history since last seen: still has indwelling jerez catheter Exam Const General: no acute distress, disheveled, frail appearing and ill appearing chronically Nutritional Appearance: overweight Orientation: alert, awake and oriented x3 HENMT Head: normal to inspection, normocephalic and atraumatic Mouth: oral mucosae normal Teeth and gingiva: poor dentition (most teeth missing, decay, gingivitis) Resp Effort & Inspection: normal respiratory effort Auscultation: clear to auscultation bilaterally and diminished lung sounds (bases) bilaterally Cardio Rate: regular rate Rhythm: regular rhythm GI Inspection: normal to inspection Palpation: soft and nontender General: other (jerez with bright orange urine d/t pyridium) Skin General skin exam: other (necrotic 2nd toe on right, no significant erythema surrounding, no drainage) Lesions: lesion noted Neuro General: patient alert, patient awake and patient oriented x3 Cranial Nerves: CN's II-XI intact bilaterally Cognition: normal cognition Psych Appearance: disheveled Mental Status: mental status grossly normal Speech and Movement: speech and movement normal Mood: congruent mood Affect: normal affect Attitude: cooperative Objective Last Vital Signs Temp 36.4 C L 06/04/22 07:22 Pulse 68 06/04/22 07:22 Resp 18 06/04/22 07:22 BP 131/80 06/04/22 07:22 Pulse Ox 94 06/04/22 07:22 Laboratory Results - last 24 hr 06/04/22 06/04/22 06/04/22 06:06 06:06 06:06 WBC 7.76 RBC 4.34 Hgb 11.3 Hct 35.3 L MCV 81 MCH 26.0 L MCHC 32.0 RDW 15.4 H Plt Count 224 MPV 11.3 H Immature Gran % 0.4 Neutrophils % 74.7 Lymphocytes % 14.4 Monocytes % 6.1 Eosinophils % 4.0 Basophils % 0.4 Nucleated RBC % 0.0 Absolute Neutrophils 5.80 Absolute Lymphocytes 1.12 L Absolute Monocytes 0.47 Absolute Eosinophils 0.31 Absolute Basophils 0.03 ESR 47 H Sodium 135 L Potassium 4.7 Chloride 103 Carbon Dioxide 23.7 Anion Gap 8.3 BUN 17 Creatinine 1.0 Est GFR (CKD-EPI 2020) 61.36 Glucose 249 H Calcium 10.0 Total Bilirubin 0.5 AST 13 L ALT 14 Alkaline Phosphatase 121 H C-Reactive Protein 0.62 H Total Protein 6.4 Albumin 2.8 L Time Spent with Patient Time Spent with Patient: 25-34 minutes Time was spent: preparing to see the patient(eg.review tests), ordering medications,tests, procedures, indepentently interpreting results and counseling the patient
[2022-06-04 15:23] VITALS: BP 126/72; PULSE 88; RESP 18; TEMP 37.1; O2SAT 94
[2022-06-04] MEDS: Enoxaparin 40 MG/0.4 ML SYR SC (18:03)
[2022-06-04] MEDS: Budesonide/Formoterol 80/4.5 6.9 GM 60 PUFF INH IH (19:40)
[2022-06-04] MEDS: Melatonin 3 MG TAB 9 MG PO (21:48)
[2022-06-04] MEDS: Insulin Glargine 300 UNITS/3 ML PEN 40 UNITS SC (21:49)
[2022-06-04 22:27] VITALS: BP 134/72; PULSE 93; RESP 16; TEMP 36.2; O2SAT 91
[2022-06-05] MEDS: PIPERACILLIN/TAZO 3.375 GM in Normal Saline 50 ML IV (01:25)
[2022-06-05] MEDS: traMADol 50 MG TAB PO (04:26)
[2022-06-05] MEDS: Docusate Sodium 100 MG CAP PO (04:29)
[2022-06-05 07:34] VITALS: BP 122/71; PULSE 68; RESP 24; TEMP 36.4; O2SAT 93
[2022-06-05] MEDS: Fluconazole 100 MG TAB 400 MG PO (08:15)
[2022-06-05] MEDS: Levothyroxine 50 MCG TAB PO (08:16)
[2022-06-05] MEDS: Pantoprazole 40 MG TABCR PO (08:17)
[2022-06-05] MEDS: Rosuvastatin 10 MG TAB PO (08:17)
[2022-06-05] MEDS: Aspirin E.C. 81 MG TABEC PO (08:18)
[2022-06-05] MEDS: Metoprolol CR 25 MG TABCR PO (08:18)
[2022-06-05] MEDS: Phenazopyridine 200 MG TAB PO (08:18)
[2022-06-05] MEDS: Gabapentin 300 MG CAP PO (08:19)
[2022-06-05] MEDS: Nystatin POWDER 60 GM JAR TP (08:19)
[2022-06-05] MEDS: Insulin Aspart 300 UNITS/3 ML PEN SC ×4 (08:21→12:46)
--- NOTE | 2022-06-05 09:04 | PDOC.CMPRO ---
- If Service Date Differs Date of service: 06/05/22 Time of Service: 09:04 Care Management Progress Note S/O: CM is waiting for a return call from Clair Stiles pts [facility]. CM will continue to support Carmel and her discharge planning considerations. A: 67 year old female admitted to [facility] on 06/01/22 for Diabetic foot infection P: Carmel will likely require a SNF placement when medically cleared vs. going home with a resumption of home health services. She will follow up with her PCP, podiatry and plan of care as prescribed. Transportation is undetermined at this time as it is dependent on disposition. CM will continue to support Carmel and any discharge planning needs.
--- NOTE | 2022-06-05 10:57 | DSE_ITS ---
Date of service: 06/05/22 Time of Service: 10:58 DS: Diagnosis Discharge Diagnosis (1) Diabetic foot infection: Status: Acute (2) Open toe wound: Status: Acute (3) Nail avulsion, toe: Status: Acute (4) Osteomyelitis of second toe of right foot: Status: Acute (5) Diabetes type 2, uncontrolled: Status: Chronic (6) Nicotine dependence: Status: Chronic (7) COPD, mild: Status: Chronic (8) Chronic kidney disease, stage III (moderate): Status: Chronic (9) Coronary artery disease involving assiniboine and gros ventre tribes coronary artery of assiniboine and gros [place]re tribes heart: Status: Chronic (10) Hypertension: Status: Chronic (11) Hypothyroidism: Status: Chronic (12) DVT prophylaxis: Status: Acute (13) Discharge planning issues: Status: Acute Discharge Plan Disposition Patient Disposition: Home W/Home Health Services Condition: Stable Discharge Details Reason For Visit: Diabetic Foot Infection Admit Date/Time: 06/01/22 17:09 Admit Provider: Jose A Espino Attending Provider: Jose A Espino Primary Care Provider: Mai Castelan Hospital Course Hospital Course: This is a 67-year-old female patient with history of diabetes mellitus type 2 chronic kidney disease, cardiomyopathy, COPD, hypothyroidism, ongoing tobacco abuse who was admitted to the medical surgical unit for diabetic foot infection and osteomyelitis. She was placed on Zosyn and vancomycin. She remained hemodynamically stable blood cultures negative. She was seen by podiatry who is recommendations at this time are for antibiotic treatment. Her left second toe Wound care instructions include application of Betadine to the eschar every other day. Podiatry did attempt to debride her nails and only 6 nails were debrided as the patient became uncooperative. She has been eating and drinking bowels functioning, and indwelling Jerez catheter was placed but removed prior to discharge. Plan is for her to follow-up outpatient with podiatry and discharged home on levofloxacin daily. She is being transported by EMS to her home with resumption of home health services. Outpatient team will follow her labs including inflammatory markers and adjust antibiotics as needed. discussed with DR Mosley. Home Meds and New Rx's Prescriptions: New levofloxacin 750 mg tablet 750 mg PO DAILY Qty: 30 0RF nystatin 100,000 unit/gram Powder 1 applic topical BID Qty: 0 0RF Continued gabapentin 300 mg capsule 300 mg PO BID Qty: 180 3RF Rx Instructions: Dose increase 03/01/22 for chronic lumbar spine pain/spinal stenosis clindamycin HCl 300 mg capsule 600 mg PO TID (DME) Air mattress See Rx Instructions .Route .MEDSUPPLY Qty: 1 0RF Hold Instructions: Home Medication placed on hold at Doctor's office Rx Instructions: As directed (DME) Wheelchair (manual) regular See Rx Instructions .Route .MEDSUPPLY Qty: 1 0RF Rx Instructions: As directed; currently has Tracer EX2 model--please replace with similar; thank you. 03/01/22. budesonide-formoterol [Symbicort] 10.2 GM HFA aerosol inhaler 2 puff Inhalation BID Qty: 3 3RF Hold Instructions: Home Medication placed on hold at Doctor's office Label Comments: 04/01/17 Patient unsure of last dose. Maybe last Thur, but patient is noncompliant with medications CDG (DME) lancets [OneTouch UltraSoft Lancets] Misc See Dose Instructions .ROUTE .MEDSUPPLY Qty: 400 3RF Dose Instruction: As directed Rx Instructions: E11.4 tests QID to keep A1C below 8 (DME) blood sugar diagnostic Strip See Dose Instructions .ROUTE .MEDSUPPLY Qty: 400 3RF Dose Instruction: As directed Rx Instructions: One Touch Ultra,E 11.40 tests QID to keep A1C below 8 (DME) blood-glucose meter [OneTouch Ultra2 Meter] Kit See Rx Instructions .ROUTE .MEDSUPPLY Qty: 1 0RF Rx Instructions: to check BS qid for DM E11.9 management to keep A1c under 8 albuterol sulfate [ProAir HFA] 90 mcg/actuation HFA aerosol inhaler 1 - 2 puff Inhalation Q4H PRN Qty: 18 3RF insulin degludec [Tresiba FlexTouch U-200] 200 unit/mL (3 mL) insulin pen 40 unit subcut DAILY MDD 80 units Qty: 12 11RF Rx Instructions: Uncontrolled T2DM (stop Lantus) (DME) Novofine Autocover 30 gauge x 1/3 needle See Rx Instructions .ROUTE .MEDSUPPLY Qty: 100 3RF Rx Instructions: For DM E11.40 to maintain A1C <8, monitoring daily metformin 500 mg tablet extended release 24 hr 500 mg PO DAILY Qty: 90 3RF Rx Instructions: Diabetes--take with food naproxen 375 mg tablet 375 mg PO .daily in AM PRN (Reason: pain) Qty: 90 0RF Rx Instructions: Chronic pain rosuvastatin 10 mg tablet 10 mg PO DAILY Qty: 90 3RF pantoprazole 40 mg tablet,delayed release (DR/EC) 40 mg PO DAILY Qty: 90 3RF metoprolol succinate 25 mg tablet extended release 24 hr 25 mg PO DAILY Qty: 90 3RF levothyroxine 50 mcg tablet 50 mcg PO DAILY Discharge Instructions Instructions: Osteomyelitis (DC) Additional Instructions: Wound care instructions: application of betadine to the eschar to left great toe every other day. Stand Alone Forms: Nursing Discharge Form Referrals: Daly Mcdonald DPM [[facility] STAFF PHYSICIAN] - 06/20/22 1:00 pm Mai Castelan NP [Primary Care Provider] - 06/14/22 3:45 pm Activity:: Activity as Tolerated Equipment/Supplies:: Blood Glucose Monitor Diet:: As Tolerated Discharge Orders Discharge Orders: Discharge Order (Routine); Ordered 06/05/22 Ordered By: Treva Jacobs Discharge Data Discharge Date/Time-TO BE ENTERED AT DEPARTURE: 06/05/22 13:42 DS: Summary Time Spent with Patient providing and/or coordinating discharge services: Greater than 30 minutes Status at Discharge Functional status at discharge: uses cane/walker Overall status at discharge: patient is progressing back to baseline Mental Status: mental status grossly normal Speech and Movement: speech and movement normal Mood: congruent mood Affect: normal affect Exam Const General: no acute distress, disheveled, frail appearing and ill appearing chronically Nutritional Appearance: overweight Orientation: alert, awake and oriented x3 HENMT Head: normal to inspection, normocephalic and atraumatic Mouth: oral mucosae normal Teeth and gingiva: poor dentition (most teeth missing, decay, gingivitis) Resp Effort & Inspection: normal respiratory effort Auscultation: clear to auscultation bilaterally and diminished lung sounds (bases) bilaterally Cardio Rate: regular rate Rhythm: regular rhythm GI Inspection: normal to inspection Palpation: soft and nontender General: other (jerez with bright orange urine d/t pyridium) Skin General skin exam: other (necrotic 2nd toe on right, no significant erythema surrounding, no drainage) Lesions: lesion noted Neuro General: patient alert, patient awake and patient oriented x3 Cranial Nerves: CN's II-XI intact bilaterally Cognition: normal cognition Psych Appearance: disheveled Mental Status: mental status grossly normal Speech and Movement: speech and movement normal Mood: congruent mood Affect: normal affect Attitude: cooperative DS: Data Vitals/I&O Vitals and I&O: Vital Signs Temperature 36.4 C L 06/05/22 07:34 Temperature Source Tympanic 06/05/22 07:34 Pulse 68 06/05/22 07:34 Pulse Rhythm Regular 06/05/22 09:11 Respiratory Rate 24 06/05/22 07:34 Respiratory Effort 06/05/22 09:11 Respiratory Depth Normal 06/05/22 09:11 Respiratory Pattern Normal 06/05/22 09:11 Blood Pressure 122/71 06/05/22 07:34 Pulse Oximetry 93 06/05/22 07:34 Oxygen Delivery Method Room Air 06/05/22 07:34 Oxygen Flow Rate 0 06/05/22 07:34 Pain Level 7 06/05/22 04:26 Comment 06/02/22 14:40 Intake & Output 06/04/22 06/04/22 06/05/22 11:59 23:59 11:59 Intake Total 250 / 1047.5 797.5 / 1047.5 740 / 740 Output Total 1250 / 2100 / 2100 1999 Balance -1000 / -1052.5 -52.5 / -1052.5 -1260 / -1260 Weight 85.3 kg 84.1 kg Intake: IV 250 / 687.5 437.5 / 687.5 500 / 500 Oral 360 / 360 240 / 240 Output: Urine 1250 / 2100 / 2100 1999 Other: Urine Color Tebbetts Tebbetts Tebbetts Urine Appearance Clear Clear Clear Urine Odor Normal Comment pt had jerez cath Voiding Methods Incontinent Data Completed and Pending Labs on day of discharge: Labs from last 24 hours 06/05/22 06/05/22 11:00 11:00 Creatinine Cancelled Est GFR (CKD-EPI 2020) Cancelled Vancomycin Trough Cancelled PFSH All Active Problems (Updated 06/04/22 @ 12:52 by Daly Mcdonald DPM) Nail dystrophy (Acute) Discharge planning issues (Acute) DVT prophylaxis (Acute) Diabetic foot infection (Acute) Open toe wound (Acute) Nail avulsion, toe (Acute) L great toe Generalized weakness (Acute) Osteomyelitis of second toe of right foot (Acute) Cellulitis of toe (Acute) Urge incontinence (Chronic) Declines RX briefs Self-care deficit (Acute) Bedbound (Acute) gets up with WC to BR Recurrent falls (Chronic) Difficulty transferring from bed to wheelchair (Chronic) DME hospital bed has helped Difficulty transferring from toilet to wheelchair (Chronic) Steph investigating commode Wheelchair bound (Chronic) no falls since starting using WC permanent need severe diabetic nephropathy needs more adaptive equipment in the home Cognitive attention deficit (Chronic) needs multiple repetitions of information Diabetes type 2, uncontrolled (Chronic) though she has had education over the years, still seems not to understand carb counting ideally needs someone to educate son as he buys her food also needs hands-on teaching with nutrition labels, etc. 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) Goal A1c < 7.5% Schein, neuropathy; Charcot's foot 03/19/13 [employer] Spinal stenosis of lumbar region with neurogenic claudication (Chronic 12/08/13) 04/13/2013 MRI Lumbar Spine: Facet arthropathy, DJD, L4-5, L5-S1 central spinal and neural foraminal stenosis Neurosurgery referral, but not a surgical candidate [facility] chronic pain service Chronic Pain [facility] Pain Center consult 10/26/15 [facility] Spine [facility] consult 03/04/17 (Sanket Sawant MD) Other and unspecified hyperlipidemia (Chronic 08/14/12) Esophageal reflux disease (Chronic 07/24/11) UPPER GI SERIES 11/14/2012, MOD HIATAL HERNIA SEVERE GERD Coronary artery disease involving assiniboine and gros [place]re tribes coronary artery of assiniboine and gros [place] tribes heart (Chronic) INFERIOR HI 1996, 100% RCA occlusion; large inf defect on perfusion scan, dr Fair Chronic kidney disease, stage III (moderate) (Chronic 08/14/12) Cortical atrophy R kidney on CT 07/2014; multiple cysts Cardiomyopathy (Chronic) Dr Fair, EF 45% Jun 2014 ECHO (h/o much worse) 10/2016 ECHO: EF 40-45% 10/2016 MPI: no acute, but persistent old infarct COPD, mild (Chronic 07/02/17) PFTs Abdominal aortic aneurysm (Chronic 11/27/12) Identified 10/31/12 CT abd-pelvis; 4cm; stable 4.1 cm 07/2014 CT, 4.3cm 11/2016, 5.5cm 03/04/17 ([facility]). 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 Guerra DJD of right shoulder (01/01/13) 12/2012 x-ray severe DJD glenohumeral joint Dr. Guerra; not a surgical candidate for replacement DNI (do not intubate) DNR (do not resuscitate) Encounter for hospice care Episode of seizures in July 2012 Goals of care, counseling/discussion DNR/DNI COLST done wants to stay home may need new agent if/when Steph moves out of state as planned Iron deficiency anemia Mass of both parotid glands Abnormal CT 08/2019 Mild pulmonary hypertension Nausea and vomiting (08/01/14) a. previous history of possible marijuana induced hyperemesis Osteoarthritis of left elbow Palliative care patient Perirectal abscess With associated hospitalization 2019 POLST (Physician Orders for Life-Sustaining Treatment) signed 06/01/20 Pulmonary embolism (~12/2021) Never started anticoagulation RLS (restless legs syndrome) Tinea corporis Surgical History Appendectomy Childhood surgery, no date given by pt.HE Hemiarthroplasty (06/13/15) Dr Charlie Gallardo shoulder History of carpal tunnel release of both wrists (~05/2012) Hx of umbilical hernia repair (09/06/15) Incarcerated umbilical hernia repair (09/06/15) Tonsillectomy childhood surgery, no date given by pt.HE Family History Mother , at 73 yo from dementia Dementia Diabetes Stroke Blind Father , MVA (truck) accident at 45yo No problems noted. Sister Age: 62 Thyroid cancer Brother , from complications of diabetes age 60 Diabetes Brother Diabetes Heart disease Colon cancer Ulcerative colitis Sister Obesity Prediabetes Arthritis Son Substance abuse attends [facility]; h/o heroin and other opioid addiction Other FH: mental illness Social History Smoking/Tobacco Use Status: Current every day Tobacco Type: cigarettes Tobacco: How many years used: 54 Quit status: not considering quitting Counseling given: counseling >3 minutes Smoking risk assessment performed?: Yes Alcohol Intake: former Drug use: Daily Substance use type: marijuana Counseling given: Yes Details: pt states she smokes marijuana on a daily basis x1 per day Adopted: No Caregiver/Support person: Yes Foster care: No Household members: children Housing: house Number of Children: 1 number of grandchildren: 0 Communication Needs: Corrective Lenses Education Level: high school Details: didn't finish sophomore year Do you need help understanding health information?: Always 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; 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 Pets and animals: Yes Current gender identity: female What is your relationship status?: How often do you talk on the phone with friends or family?: three or more times per week How often do you get together with friends or relatives?: twice per week Panel score (0-1 are the most socially isolated patients): 1 What type of physical activity do you participate in: none and wheelchair-bound Special eliana needs: No Seatbelt use: sometimes Working smoke detector in home: Yes Fire extinguisher in home: Yes Do you feel safe at home: Yes (Most of the time, yes I feel better if my son or somebody is there) Do you feel safe in your relationship?: Yes Additional Social history: Patient reports she lives with her son Time Spent with Patient Time Spent with Patient: 45-69 minutes Time was spent: preparing to see the patient(eg.review tests), obtaining and/or reviewing separately otained hiistory, ordering medications,tests, procedures, referring, communicating with other health wound care technician, indepentently interpreting results, counseling the patient and care coordination
--- NOTE | 2022-06-05 11:14 | PDOC.CMDIS ---
- If Service Date Differs Date of service: 06/05/22 Time of Service: 11:14 LACE Index Scoring Tool - Questions: Length of Stay (in days): 4 - 6 Acuity (Admit via E.D.?): Yes Comorbidities: Chronic Pulmonary Disease, Liver or Renal Disease E.D. Visits: 10 - Answers: Total Score: 16 Risk of Readmission: High Risk Care Management Discharge Reason for Hospitalization: Diabetic foot infection. Discharge Plan: Carmel is discharged home with resumption of [facility] and [facility] services. She is transported via EMS. Carmel will follow up with community providers and discharge plan of care as prescribed. CM LMOM for Carmel's [facility] Steam Crane Operator Clair Rosen prior to discharge. Patient/Family Education Needs: Review discharge instructions, limitations, medications and plan to follow up with community providers. Disuss ask me three and goals of self care. Services Needed at Discharge: Home Health Care Services (Resumption of [facility] and [facility] services. ), Transportation (EMS/[facility], coordinated by CM)
[2022-06-05] MEDS: levoFLOXacin 500 MG, levoFLOXacin 250 MG 750 MG PO (11:55)
[2022-06-05] MEDS: Normal Saline Flush 10 ML SYR IVP (11:56)
[2022-06-05] MEDS: VANCOMYCIN/WATER (PEG) 1 GM/200 ML BAG IVPB (11:56)
[2022-06-05] MEDS: Acetaminophen 325 MG TAB PO (12:01)
--- NOTE | 2022-06-05 12:33 | W.INDIABCONS ---
Date of service: 06/05/22 Time of Service: 12:33 Diabetes Inpatient Consult Reason for Visit: Dm DESCRIPTION/ASSESSMENT: Carmel was admitted with Dm foot infection, osteomylitis s/p surgery. PMH: COPD, CKD, DM2. A1C (05/29/22) 12.4%. A12 per med chart review has been >10% since 2020. DM home meds: 40 u lantus hs, 500 mg metformin BID. Carmel states she cannot afford healthy foods. I offered to provide my contact information for her son to follow up with any questions he may have. She declined and written information. INTERVENTION: Attempted to provide diabetes education today, however, Carmel was very groggy and could not keep her focus. Met with case management, they informed me that Carmel has wrap around services and access to 3 squares and home based meals. Carmel does not have food insecurity and does have access to low cost well balanced meals/foods. PLAN: Will be available prn. Time Spent in Nutritional Counseling and Treatment: 10
== END 2022-06-05 13:42 | disposition home health service (06) | DRG 638 ==
LOC: ER 17:39 → MS 17:54
PROVIDERS: Family Medicine; Nurse Practitioner Acute Care; Admitting Provider Internal Medicine; Emergency Provider Emergency Medicine; PCP Nurse Practitioner Adult Health; Visit Provider Internal Medicine
DX: E11.628 Type 2 diabetes mellitus with other skin complications (principal); G11.9 Hereditary ataxia, unspecified; M86.8X8 Other osteomyelitis, other site; I42.9 Cardiomyopathy, unspecified; L97.518 Non-pressure chronic ulcer of other part of right foot with other specified severity; L03.031 Cellulitis of right toe; F17.210 Nicotine dependence, cigarettes, uncomplicated; S91.202A Unspecified open wound of left great toe with damage to nail, initial encounter; X58.XXXA Exposure to other specified factors, initial encounter; Z79.4 Long term (current) use of insulin; R53.1 Weakness; N39.41 Urge incontinence; R29.6 Repeated falls; Z91.81 History of falling; E11.22 Type 2 diabetes mellitus with diabetic chronic kidney disease; Z99.3 Dependence on wheelchair; E11.65 Type 2 diabetes mellitus with hyperglycemia; Z91.199 Patient's noncompliance with other medical treatment and regimen due to unspecified reason; E11.42 Type 2 diabetes mellitus with diabetic polyneuropathy; M48.062 Spinal stenosis, lumbar region with neurogenic claudication; I25.2 Old myocardial infarction; E78.5 Hyperlipidemia, unspecified; K21.9 Gastro-esophageal reflux disease without esophagitis; J44.9 Chronic obstructive pulmonary disease, unspecified; I71.40 Abdominal aortic aneurysm, without rupture, unspecified; M19.012 Primary osteoarthritis, left shoulder; M19.011 Primary osteoarthritis, right shoulder; Z66 Do not resuscitate; D50.9 Iron deficiency anemia, unspecified; I27.20 Pulmonary hypertension, unspecified; G25.81 Restless legs syndrome; Z86.711 Personal history of pulmonary embolism; N18.30 Chronic kidney disease, stage 3 unspecified; E03.9 Hypothyroidism, unspecified; I12.9 Hypertensive chronic kidney disease with stage 1 through stage 4 chronic kidney disease, or unspecified chronic kidney disease; F12.90 Cannabis use, unspecified, uncomplicated; E11.621 Type 2 diabetes mellitus with foot ulcer
CPT/HCPCS: 11721; 36415; 36416; 80048; 80053; 82805; 82947; 82962; 85652; 87635; 93005; 96361; 96365; 96367; 99285; J1650; 71046; 80202; 81003; 81015; 82565; 83735; 84443; 85025; 86140; 87086; 93010; 99223; 99233; 99239; J2543

== ENCOUNTER 2022-06-05 21:16 | Emergency (ER) | payer OTHER, MEDICAID, SELFPAY ==
[2022-06-05 21:23] VITALS: BP 144/75; PULSE 61; RESP 20; TEMP 36.2; O2SAT 96
--- NOTE | 2022-06-05 21:30 | DI.CT_ITS ---
Exam(s) CT HEAD CERVICAL SPINE WO EXAM: CT HEAD CERVICAL SPINE WO CLINICAL HISTORY: HI, fall. TECHNIQUE: Imaging Protocol: Axial computed tomography images with coronal and sagittal reformatted images were created and reviewed COMPARISON: CT CT HEAD CERVICAL SPINE WO from 05/28/2022 FINDINGS: Head CT Ventricles and Extra axial spaces: Normal in size and morphology for the patient's age. Hemorrhage: None. Cerebral parenchyma: Mild atrophy. Mild white matter changes. Midline shift: None. Brainstem/Cerebellum: Normal. Calvarium: Normal. Visualized Paranasal sinuses/Mastoids: Clear. Cervical Spine CT BONES: Vertebral body heights are maintained. Alignment is normal. There is no evidence of acute frac ture. Severe degenerative disc changes are present. Facet degenerative changes are seen . SOFT TISSUES: No paraspinal hematoma. The airway appears intact. No pneumothorax is seen at the lung apices. IMPRESSION: Head CT: No acute abnormality. C-spine CT: Degenerative changes, no acute abnormality. RADIATION DOSE DELIVERED: 2,279.04mGy.cm Total DLP DATA REPOSITORY: All CT scans at this facility are submitted to the National Radiology Data Registry (NRDR) Dose Index Registry (DIR) with the [employer] (ACR). RADIATION OPTIMIZATION: All CT scans at this facility use at least one of these dose optimization te chniques: automated exposure control; mA and/or kV adjustment per patient size (includes targeted exa ms where dose is matched to clinical indication); or iterative reconstruction.
--- NOTE | 2022-06-05 21:30 | RT.EKG_ITS ---
APPROVED REPORT Exam: Resting ECG Reason for Exam: weakness Patient Location: E HR:82 bpm ECG Measurements Heart Rate 82 AXIS IN [id number] P [id number] QRSd 135 QRS 44 QT 406 T 12 QTc 475 Conclusion Atrial flutter with predominant 3:1 AV block...A-rate 242, multiple Ps Nonspecific intraventricular conduction delay...QRSd >115mS, not LBBB/RBBB Inferior infarct, old...Q >35mS, II III aVF regular wide complex rhythm, normal axis, LBBB Consider anterolateral infarct...Q >30mS, I aVL V3-V6,I,aVL
--- NOTE | 2022-06-05 21:45 | DI.RAD_ITS ---
Exam(s) XR CHEST 2V PA LATERAL EXAM: XR CHEST 2V PA LATERAL CLINICAL HISTORY: fall TECHNIQUE: 2D digital imaging was performed. COMPARISON: CT CT THORAX ABD/PEL CTA from 12/22/2021 CR XR CHEST 2V PA LATERAL from 06/01/2022 FINDINGS: Limited by under penetration at the lung bases on the AP view. HEART: Normal size. Aorta: Not dilated. PULMONARY VASCULATURE: Mildly prominent. This could be secondary to poor pulmonary inflation. LUNGS: Grossly clear. PLEURAL SPACE: No pleural effusion or pneumothorax. BONE:Spine not well seen. Right shoulder prosthesis. Hiatal hernia noted. IMPRESSION: Limited exam. No acute abnormality. DATA REPOSITORY: RADIATION DOSE DELIVERED:
[2022-06-05] MEDS: Normal Saline 500 ML IV (22:22)
--- NOTE | 2022-06-05 22:22 | DI.VRAD_ITS ---
PROCEDURE INFORMATION: Exam: CT Head Without Contrast Exam date and time: 06/05/2022 9:57 PM Age: 67 years old Clinical indication: Injury or trauma; Fall; Blunt trauma (contusions or hematomas); Consciousness not specified; Injury date: 07/06/22 TECHNIQUE: Imaging protocol: Computed tomography of the head without contrast. Radiation optimization: All CT scans at this facility use at least one of these dose optimization techniques: automated exposure control; mA and/or kV adjustment per patient size (includes targeted exams where dose is matched to clinical indication); or iterative reconstruction. COMPARISON: CT HEAD CERVICAL SPINE WO 05/28/2022 12:02 AM FINDINGS: Brain:Moderate volume loss No hemorrhage. Mild white matter disease No mass effect. Cerebral ventricles: No ventriculomegaly. Paranasal sinuses: Visualized sinuses are unremarkable. No fluid levels. Mastoid air cells: Visualized mastoid air cells are well aerated. Bones/joints: Unremarkable. No acute fracture. Soft tissues: Unremarkable. IMPRESSION: No acute intracranial hemorrhage PROCEDURE INFORMATION: Exam: CT Cervical Spine Without Contrast Exam date and time: 06/05/2022 9:57 PM Age: 67 years old Clinical indication: Injury or trauma; Fall; Blunt trauma (contusions or hematomas); Consciousness not specified; Injury date: 07/06/22 TECHNIQUE: Imaging protocol: Computed tomography of the cervical spine without contrast. Radiation optimization: All CT scans at this facility use at least one of these dose optimization techniques: automated exposure control; mA and/or kV adjustment per patient size (includes targeted exams where dose is matched to clinical indication); or iterative reconstruction. COMPARISON: CT HEAD CERVICAL SPINE WO 05/28/2022 12:02 AM FINDINGS: Bones/joints: No acute fracture. Loss of cervical lordosis is presumably on a degenerative basis. Multilevel central canal and foraminal stenosis. Lungs: Lung apices are grossly clear Soft tissues: Unremarkable. IMPRESSION: No acute cervical fracture noted Dictated and Authenticated by: Sanket Mueller MD. Ordering:ANDREA Olivera MD
--- NOTE | 2022-06-05 22:23 | DI.VRAD_ITS ---
PROCEDURE INFORMATION: Exam: XR Chest Exam date and time: 06/05/2022 10:09 PM Age: 67 years old Clinical indication: Injury or trauma; Fall; Blunt trauma (contusions or hematomas); Injury date: 06/05/22; Prior surgery; Surgery date: 6+ months; Surgery type: Shoulder replacement TECHNIQUE: Imaging protocol: Radiologic exam of the chest. Views: 2 views. COMPARISON: CR XR CHEST 2V PA LATERAL 06/01/2022 4:14 PM FINDINGS: Lungs: Low lung volumes. Question mild central vascular congestion. No gross pulmonary infiltrates or edema pattern. Pleural spaces: No pleural effusion. No pneumothorax. Heart/Mediastinum: Heart size normal. Moderate-sized hiatal hernia. No tracheal/mediastinal shift. Bones/joints: No acute osseous abnormalities are identified. Osteopenia. [place] screw in the right clavicle. Right shoulder hemiarthroplasty again noted without gross hardware complication or change. Other findings: Mild leftward rotation. IMPRESSION: No acute thoracic injuries. No significant radiographic change. Dictated and Authenticated by: Kasi Bartlett MD. Ordering:ANDREA Olivera MD
[2022-06-05 22:24] LABS: Abs Immature Grans 0.05 10^3/uL (0.0-0.06); Absolute Basophil Count 0.04 10^3/uL (0.0-0.2); Absolute Eosinophil Count 0.37 10^3/uL (0.0-0.7); Absolute Lymphocyte Count 1.33 10^3/uL (1.2-3.4); Absolute Monocyte Count 0.58 10^3/uL (0.1-0.8); Absolute Neutrophil Count 4.88 10^3/uL (1.2-6.7); Basophils % 0.6; Eosinophils % 5.1; HCT 37.7 % (36.0-46.0); HGB 11.5 g/dL (11.2-15.7); Immature Grans % 0.7; Lymphocytes % 18.3; MCH 25.3 pg (27.0-33.0); MCHC 30.5 % (32.0-36.0); MCV 83 fL (80-95); MPV 10.1 fL (8.0-11.0); Neutrophils % 67.3; Platelet Count 222 10^3/uL (130-400); RBC 4.55 10^6/uL (3.93-5.22); RDW 15.4 % (11.7-14.6); RDW-SD 46.3 fL; WBC 7.25 10^3/uL (4.4-10.8)
[2022-06-05 22:44] LABS: Creatine Kinase 75 U/L (26-192)
[2022-06-05 22:52] LABS: ALT 16 U/L (14-59); AST 17 U/L (15-37); Albumin 3.1 g/dL (3.4-5.0); Alkaline Phosphatase 137 U/L (46-116); Anion Gap 5.4 mmol/L (3-11); BUN 22 mg/dL (7-18); Bilirubin, Total 0.4 mg/dL (0.2-1.0); CO2 26.6 mmol/L (21.0-32.0); CREATININE 1.2 mg/dL (0.55-1.02); Calcium 10.8 mg/dL (8.5-10.1); Chloride 103 mmol/L (98-107); Estimated GFR 49.31 (mL/min/1.73m2); Glucose 270 mg/dL (74-106); Potassium 4.8 mmol/L (3.5-5.1); Sodium 135 mmol/L (136-145); Total Protein 7.4 g/dL (6.4-8.2)
--- NOTE | 2022-06-05 22:54 | W.ED.GENAD ---
Discharge Plan Disposition Patient Disposition: Home Condition: Stable Discharge Details Clinical Impression: Dependence on wheelchair, Fall, Acute hyperglycemia, Osteomyelitis of second toe of right foot Primary Care Provider: Mai Castelan ED Provider: Joselin Almeida Home Meds and New Rx's Prescriptions: Continued gabapentin 300 mg capsule 300 mg PO BID Qty: 180 3RF Rx Instructions: Dose increase 03/01/22 for chronic lumbar spine pain/spinal stenosis clindamycin HCl 300 mg capsule 600 mg PO TID (DME) Air mattress See Rx Instructions .Route .MEDSUPPLY Qty: 1 0RF Hold Instructions: Home Medication placed on hold at Doctor's office Rx Instructions: As directed (DME) Wheelchair (manual) regular See Rx Instructions .Route .MEDSUPPLY Qty: 1 0RF Rx Instructions: As directed; currently has Tracer EX2 model--please replace with similar; thank you. 03/01/22. (DME) lancets [OneTouch UltraSoft Lancets] Misc See Dose Instructions .ROUTE .MEDSUPPLY Qty: 400 3RF Dose Instruction: As directed Rx Instructions: E11.4 tests QID to keep A1C below 8 (DME) blood sugar diagnostic Strip See Dose Instructions .ROUTE .MEDSUPPLY Qty: 400 3RF Dose Instruction: As directed Rx Instructions: One Touch Ultra,E 11.40 tests QID to keep A1C below 8 (DME) blood-glucose meter [OneTouch Ultra2 Meter] Kit See Rx Instructions .ROUTE .MEDSUPPLY Qty: 1 0RF Rx Instructions: to check BS qid for DM E11.9 management to keep A1c under 8 insulin degludec [Tresiba FlexTouch U-200] 200 unit/mL (3 mL) insulin pen 40 unit subcut DAILY MDD 80 units Qty: 12 11RF Rx Instructions: Uncontrolled T2DM (stop Lantus) (DME) Novofine Autocover 30 gauge x 1/3 needle See Rx Instructions .ROUTE .MEDSUPPLY Qty: 100 3RF Rx Instructions: For DM E11.40 to maintain A1C <8, monitoring daily metformin 500 mg tablet extended release 24 hr 500 mg PO DAILY Qty: 90 3RF Rx Instructions: Diabetes--take with food naproxen 375 mg tablet 375 mg PO .daily in AM PRN (Reason: pain) Qty: 90 0RF Rx Instructions: Chronic pain rosuvastatin 10 mg tablet 10 mg PO DAILY Qty: 90 3RF pantoprazole 40 mg tablet,delayed release (DR/EC) 40 mg PO DAILY Qty: 90 3RF metoprolol succinate 25 mg tablet extended release 24 hr 25 mg PO DAILY Qty: 90 3RF levothyroxine 50 mcg tablet 50 mcg PO DAILY levofloxacin 750 mg tablet 750 mg PO DAILY Qty: 30 0RF nystatin 100,000 unit/gram Powder 1 applic topical BID Qty: 0 0RF No Action albuterol sulfate [ProAir HFA] 90 mcg/actuation HFA aerosol inhaler 1 - 2 puff Inhalation Q4H PRN Qty: 18 3RF budesonide-formoterol [Symbicort] 80-4.5 mcg/actuation HFA aerosol inhaler 2 puff Inhalation BID Qty: 3 3RF Hold Instructions: Home Medication placed on hold at Doctor's office Label Comments: 04/01/17 Patient unsure of last dose. Maybe last Thur, but patient is noncompliant with medications CDG Rybelsus 3 mg tablet 3 mg PO DAILY Qty: 30 0RF Rx Instructions: Uncontrolled diabetes Discharge Instructions Additional Instructions: Take the antibiotic for your infected toe, this is very important Always use your wheelchair and your assistive devices or you will fall Please follow-up with your primary care doctor and return earlier should you have new or worsening complaints Referrals: Mai Castelan NP [Primary Care Provider] - 1 day Discharge Data Discharge Date/Time-TO BE ENTERED AT DEPARTURE: 06/05/22 23:28 Medical Decision Making This 67-year-old female with history of diabetes, recent hospitalization and discharged today from this facility presents after a fall when transferring from wheelchair to toilet. She was unable to get up and so 911 was called for assistance Your labs appear stable for her, she has mild hyperglycemia She is fully alert and oriented and is adamantly refusing admission to the hospital Patient is on antibiotics which she has been taking as prescribed She is her own decision maker reportedly Her CT head and cervical spine does not show evidence of acute abnormality and her labs are reviewed and compared to her prior from yesterday do not see acute change At this time she is fully alert and oriented and adamantly is refusing admission to the hospital for frequent falls She understands that she may fall again when she arrives home and ago now that her recommendation is that she has admitted to the hospital Medical Records Medical records reviewed: Yes I reviewed the patient's medical records. Lab Data Lab results reviewed: Yes I reviewed the patient's lab results. HPI General Date/Time Provider Initiated Documentation: 06/05/22 21:19. HPI Narrative: This 67-year-old female known to this facility presents after a fall. She states she was trying to transfer herself from her wheelchair to the toilet when she lost her footing. She states she hit her head. She was unable to get herself off the floor so EMS was called. She denies any pain complaints at this time. She states she was discharged from the hospital today. Related Data Home Medications Medication Instructions Recorded Confirmed lancets (OneTouch UltraSoft #400 ea 11/03/20 06/05/22 Lancets) blood sugar diagnostic #400 ea 04/19/21 06/05/22 blood-glucose meter ([employer] Entertainment[employer] #1 ea 04/19/21 06/05/22 Ultra2 Meter kit) Air mattress #1 ea 06/15/21 06/05/22 insulin degludec 200 unit/mL (3 40 unit (0.2 mL) subcut DAILY #12 06/21/21 06/05/22 mL) subcutaneous pen (Tresiba mL FlexTouch U-200 insulin) pen needle, diabetic, safety 30 #100 ea 07/21/21 06/05/22 gauge x 1/3 (Novofine Autocover) Wheelchair (manual) #1 ea 03/01/22 06/05/22 metformin 500 mg tablet,extended 500 mg PO DAILY #90 tabs 03/07/22 06/05/22 release 24 hr naproxen 375 mg tablet 375 mg PO .daily in AM PRN pain 03/09/22 06/05/22 #90 tabs gabapentin 300 mg capsule 300 mg PO BID #180 caps 04/09/22 06/05/22 metoprolol succinate 25 mg 25 mg PO DAILY #90 tabs 05/30/22 06/05/22 tablet,extended release 24 hr pantoprazole 40 mg tablet,delayed 40 mg PO DAILY #90 tab-caps 05/30/22 06/05/22 release rosuvastatin 10 mg tablet 10 mg PO DAILY #90 tabs 05/30/22 06/05/22 clindamycin HCl 300 mg capsule 600 mg PO TID 05/31/22 06/05/22 levothyroxine 50 mcg tablet 50 mcg PO DAILY 06/01/22 06/05/22 levofloxacin 750 mg tablet 750 mg PO DAILY #30 tabs 06/05/22 06/05/22 nystatin 100,000 unit/gram topical 1 applic topical BID #0 grams 06/05/22 06/05/22 powder albuterol sulfate 90 mcg/actuation 1 - 2 puff inhalation Q4H PRN #18 06/06/22 aerosol inhaler (ProAir HFA) grams budesonide-formoterol HFA 80 2 puff inhalation BID ##3 06/06/22 mcg-4.5 mcg/actuation aerosol inhaler (Symbicort) semaglutide 3 mg tablet (Rybelsus) 3 mg PO DAILY #30 tabs 06/07/22 Previous Rx's Medication Instructions Recorded lancets (OneTouch UltraSoft #400 ea 11/03/20 Lancets) blood sugar diagnostic #400 ea 04/19/21 blood-glucose meter (OneTouch #1 ea 04/19/21 Ultra2 Meter kit) Air mattress #1 ea 06/15/21 insulin degludec 200 unit/mL (3 40 unit (0.2 mL) subcut DAILY #12 06/21/21 mL) subcutaneous pen (Tresiba mL FlexTouch U-200 insulin) pen needle, diabetic, safety 30 #100 ea 07/21/21 gauge x 1/3 (Novofine Autocover) Wheelchair (manual) #1 ea 03/01/22 metformin 500 mg tablet,extended 500 mg PO DAILY #90 tabs 03/07/22 release 24 hr naproxen 375 mg tablet 375 mg PO .daily in AM PRN pain 03/09/22 #90 tabs gabapentin 300 mg capsule 300 mg PO BID #180 caps 04/09/22 metoprolol succinate 25 mg 25 mg PO DAILY #90 tabs 05/30/22 tablet,extended release 24 hr pantoprazole 40 mg tablet,delayed 40 mg PO DAILY #90 tab-caps 05/30/22 release rosuvastatin 10 mg tablet 10 mg PO DAILY #90 tabs 05/30/22 levofloxacin 750 mg tablet 750 mg PO DAILY #30 tabs 06/05/22 nystatin 100,000 unit/gram topical 1 applic topical BID #0 grams 06/05/22 powder albuterol sulfate 90 mcg/actuation 1 - 2 puff inhalation Q4H PRN #18 06/06/22 aerosol inhaler (ProAir HFA) grams budesonide-formoterol HFA 80 2 puff inhalation BID ##3 06/06/22 mcg-4.5 mcg/actuation aerosol inhaler (Symbicort) semaglutide 3 mg tablet (Rybelsus) 3 mg PO DAILY #30 tabs 06/07/22 Allergies Allergy/AdvReac Type Severity Reaction Status Date / Time bupropion HCl Allergy Severe seizures Verified 05/28/22 03:10 [From Wellbutrin] carvedilol [From Coreg] Allergy Mild Itching Verified 05/28/22 03:10 morphine AdvReac Unknown nausea Verified 05/28/22 03:10 General Stated Complaint: Fall/Non TraumaCriteria DINESH: 3 PFSH All Active Problems (Updated 06/06/22 @ 00:05 by PACO JIMENEZ) Dependence on wheelchair (Acute) Fall (Acute) Acute hyperglycemia (Acute) Nail dystrophy (Acute) Diabetic foot infection (Acute) Open toe wound (Acute) Nail avulsion, toe (Acute) L great toe Generalized weakness (Acute) Osteomyelitis of second toe of right foot (Acute) Cellulitis of toe (Acute) Urge incontinence (Chronic) Declines RX briefs Self-care deficit (Acute) Bedbound (Acute) gets up with WC to BR Recurrent falls (Chronic) Difficulty transferring from bed to wheelchair (Chronic) DME hospital bed has helped Difficulty transferring from toilet to wheelchair (Chronic) Steph investigating commode Wheelchair bound (Chronic) no falls since starting using WC permanent need severe diabetic nephropathy needs more adaptive equipment in the home Cognitive attention deficit (Chronic) needs multiple repetitions of information Diabetes type 2, uncontrolled (Chronic) though she has had education over the years, still seems not to understand carb counting ideally needs someone to educate son as he buys her food also needs hands-on teaching with nutrition labels, etc. 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) Goal A1c < 7.5% Schein, neuropathy; Charcot's foot 03/19/13 [employer] Spinal stenosis of lumbar region with neurogenic claudication (Chronic 12/08/13) 04/13/2013 MRI Lumbar Spine: Facet arthropathy, DJD, L4-5, L5-S1 central spinal and neural foraminal stenosis Neurosurgery referral, but not a surgical candidate [facility] chronic pain service Chronic Pain [facility] Pain Center consult 10/26/15 [facility] Spine Center consult 03/04/17 (Sanket Sawant MD) Other and unspecified hyperlipidemia (Chronic 08/14/12) Esophageal reflux disease (Chronic 07/24/11) UPPER GI SERIES 11/14/2012, MOD HIATAL HERNIA SEVERE GERD Coronary artery disease involving [place] coronary artery of [place] heart (Chronic) INFERIOR ID [id number], 100% RCA occlusion; large inf defect on perfusion scan, dr Fair Chronic kidney disease, stage III (moderate) (Chronic 08/14/12) Cortical atrophy R kidney on CT 07/2014; multiple cysts Cardiomyopathy (Chronic) Dr Fair, EF 45% Jun 2014 ECHO (h/o much worse) 10/2016 ECHO: EF 40-45% 10/2016 MPI: no acute, but persistent old infarct COPD, mild (Chronic 07/02/17) PFTs Abdominal aortic aneurysm (Chronic 11/27/12) Identified 10/31/12 CT abd-pelvis; 4cm; stable 4.1 cm 07/2014 CT, 4.3cm 11/2016, 5.5cm 03/04/17 ([facility]). 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 Guerra DJD of right shoulder (01/01/13) 12/2012 x-ray severe DJD glenohumeral joint Dr. Guerra; not a surgical candidate for replacement DNI (do not intubate) DNR (do not resuscitate) Encounter for hospice care Episode of seizures in July 2012 Goals of care, counseling/discussion DNR/DNI COLST done wants to stay home may need new agent if/when Steph moves out of state as planned Iron deficiency anemia Mass of both parotid glands Abnormal CT 08/2019 Mild pulmonary hypertension Nausea and vomiting (08/01/14) a. previous history of possible marijuana induced hyperemesis Osteoarthritis of left elbow Palliative care patient Perirectal abscess With associated hospitalization 2019 POLST (Physician Orders for Life-Sustaining Treatment) signed 06/01/20 Pulmonary embolism (~12/2021) Never started anticoagulation RLS (restless legs syndrome) Tinea corporis Surgical History Appendectomy Childhood surgery, no date given by pt.HE Hemiarthroplasty (06/13/15) Dr Charlie Gallardo shoulder History of carpal tunnel release of both wrists (~05/2012) Hx of umbilical hernia repair (09/06/15) Incarcerated umbilical hernia repair (09/06/15) Tonsillectomy childhood surgery, no date given by pt.HE Family History Mother , at 73 yo from dementia Dementia Diabetes Stroke Blind Father , MVA (truck) accident at 45yo No problems noted. Sister Age: 62 Thyroid cancer Brother , from complications of diabetes age 60 Diabetes Brother Diabetes Heart disease Colon cancer Ulcerative colitis Sister Obesity Prediabetes Arthritis Son Substance abuse attends [facility]; h/o heroin and other opioid addiction Other FH: mental illness Social History Smoking/Tobacco Use Status: Current every day Tobacco Type: cigarettes Tobacco: How many years used: 54 Quit status: not considering quitting Counseling given: counseling >3 minutes Smoking risk assessment performed?: Yes Alcohol Intake: former Drug use: Daily Substance use type: marijuana Counseling given: Yes Details: pt states she smokes marijuana on a daily basis x1 per day Adopted: No Caregiver/Support person: Yes Foster care: No Household members: children Housing: house Number of Children: 1 number of grandchildren: 0 Communication Needs: Corrective Lenses Education Level: high school Details: didn't finish sophomore year Do you need help understanding health information?: Always 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; 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 Pets and animals: Yes Current gender identity: female What is your relationship status?: How often do you talk on the phone with friends or family?: three or more times per week How often do you get together with friends or relatives?: twice per week Panel score (0-1 are the most socially isolated patients): 1 What type of physical activity do you participate in: none and wheelchair-bound Special eliana needs: No Seatbelt use: sometimes Working smoke detector in home: Yes Fire extinguisher in home: Yes Do you feel safe at home: Yes (Most of the time, yes I feel better if my son or somebody is there) Do you feel safe in your relationship?: Yes Additional Social history: Patient reports she lives with her son Exam Const General: cooperative, comfortable and no acute distress HENMT Head: normal to inspection Mouth: oral mucosae normal Eyes Pupils: PERRL Resp Effort & Inspection: normal respiratory effort Cardio Rate: regular rate Rhythm: regular rhythm Skin General skin exam: no rashes or lesions noted Neuro General: patient alert and patient oriented x3 Course Vital Signs Vital signs: Vital Signs Temperature 36.2 C L 06/05/22 21:23 Pulse 61 06/05/22 21:23 Respiratory Rate 20 06/05/22 21:23 Blood Pressure 144/75 H 06/05/22 21:23 Pulse Oximetry 96 06/05/22 21:23 Temperature 36.2 C L 06/05/22 21:23 Pulse 61 06/05/22 21:23 Respiratory Rate 20 06/05/22 21:23 Respiratory Effort Non-Labored 06/05/22 21:43 Blood Pressure 144/75 H 06/05/22 21:23 Blood Pressure Position Sitting 06/05/22 21:23 Pulse Oximetry 96 06/05/22 21:23 Oxygen Delivery Method Room Air 06/05/22 21:23 Oxygen Flow Rate 0 06/05/22 21:23 Pain Level 10 06/05/22 21:23 Lab/Test Results Lab/Test Results: Laboratory Tests Range/Units 06/05/22 06/05/22 06/05/22 22:18 22:18 22:18 WBC (4.4-10.8) 10^3/uL 7.25 RBC (3.93-5.22) 10^6/uL 4.55 Hgb (11.2-15.7) g/dL 11.5 Hct (36.0-46.0) % 37.7 MCV (80-95) fL 83 MCH (27.0-33.0) pg 25.3 L MCHC (32.0-36.0) % 30.5 L RDW (11.7-14.6) % 15.4 H Plt Count (130-400) 10^3/uL 222 MPV (8.0-11.0) fL 10.1 Immature Gran % 0.7 Neutrophils % 67.3 Lymphocytes % 18.3 Monocytes % 8.0 Eosinophils % 5.1 Basophils % 0.6 Nucleated RBC % (0.0-0.3) % 0.0 Absolute Neutrophils (1.2-6.7) 10^3/uL 4.88 Absolute Lymphocytes (1.2-3.4) 10^3/uL 1.33 Absolute Monocytes (0.1-0.8) 10^3/uL 0.58 Absolute Eosinophils (0.0-0.7) 10^3/uL 0.37 Absolute Basophils (0.0-0.2) 10^3/uL 0.04 Sodium (136-145) mmol/L 135 L Potassium (3.5-5.1) mmol/L 4.8 Chloride (98-107) mmol/L 103 Carbon Dioxide (21.0-32.0) mmol/L 26.6 Anion Gap (3-11) mmol/L 5.4 BUN (7-18) mg/dL 22 H Creatinine (0.55-1.02) mg/dL 1.2 H Est GFR (CKD-EPI 2020) (mL/min/1.73m2) 49.31 Glucose (74-106) mg/dL 270 H Calcium (8.5-10.1) mg/dL 10.8 H Total Bilirubin (0.2-1.0) mg/dL 0.4 AST (15-37) U/L 17 ALT (14-59) U/L 16 Alkaline Phosphatase (46-116) U/L 137 H Creatine Kinase (26-192) U/L 75 Total Protein (6.4-8.2) g/dL 7.4 Albumin (3.4-5.0) g/dL 3.1 L
== END 2022-06-05 23:28 | disposition home or self-care (01) ==
PROVIDERS: Emergency Provider Physician Assistant; PCP Nurse Practitioner Adult Health
DX: M86.8X7 Other osteomyelitis, ankle and foot (principal); E11.65 Type 2 diabetes mellitus with hyperglycemia; Z79.4 Long term (current) use of insulin; Z79.84 Long term (current) use of oral hypoglycemic drugs; Z66 Do not resuscitate; W18.39XA Other fall on same level, initial encounter
CPT/HCPCS: 80053; 82550; 93005; 96360; 99284; 70450; 71046; 72125; 85025; 93010

== ENCOUNTER 2022-08-01 00:20 | Emergency (ER) | payer OTHER, MEDICAID, SELFPAY ==
--- NOTE | 2022-08-01 00:15 | DI.RAD_ITS ---
Exam(s) XR FEMUR RT EXAM: XR FEMUR RT CLINICAL HISTORY: fall, leg pain. TECHNIQUE: 2D digital imaging was performed of the right femur. Four images were obtained. AP and l ateral views were obtained. COMPARISON: No exams were available for comparison FINDINGS: BONES: No acute fracture is present. Curvilinear calcifications are seen in the proximal metaphysis o f the right femur which may reflect a enchondroma or prior bone infarction. Visualized portion of kn ee and hip joints are unremarkable. SOFT TISSUE: Vascular calcifications are present. IMPRESSION: No acute fracture or dislocation. DATA REPOSITORY: RADIATION DOSE DELIVERED:
--- NOTE | 2022-08-01 00:15 | DI.RAD_ITS ---
Exam(s) XR TIB/FIB RT EXAM: XR TIB/FIB RT CLINICAL HISTORY: fall. TECHNIQUE: 2D digital imaging was performed of the right tibia and fibula. Three images were obtaine d. AP and lateral views were obtained. COMPARISON: No exams were available for comparison FINDINGS: BONES: No acute fracture is present. No bony destructive lesion is seen. There is a plantar calcaneal spur. Degenerative changes are seen in the hindfoot. SOFT TISSUE: Atherosclerosis. IMPRESSION: No acute fracture or dislocation. DATA REPOSITORY: RADIATION DOSE DELIVERED:
--- NOTE | 2022-08-01 00:15 | DI.RAD_ITS ---
Exam(s) XR HUMERUS RT EXAM: XR HUMERUS RT CLINICAL HISTORY: fall. TECHNIQUE: 2D digital imaging was performed of the right humerus. Two images were obtained. AP and lateral views were obtained. COMPARISON: CR RIGHT SHOULDER COMPLETE from 06/30/2015 FINDINGS: BONES: No acute fracture is present. No bony destructive lesion is seen. Visualized portion of elbow and shoulder joints are unremarkable. There again seen findings of a prior right shoulder replacement . SOFT TISSUE: Normal. IMPRESSION: No acute fracture or dislocation. DATA REPOSITORY: RADIATION DOSE DELIVERED:
--- NOTE | 2022-08-01 00:15 | DI.RAD_ITS ---
Exam(s) XR CHEST 1V IN DI DEPT EXAM: XR CHEST 1V IN DI DEPT CLINICAL HISTORY: fall, right sided pain TECHNIQUE: 2D digital imaging was performed of the chest. One image was obtained. An AP view was ob tained. COMPARISON: CR,XR XR CHEST 1V IN DI DEPT from 05/10/2022 FINDINGS: MEDIASTINUM: Normal. HEART: Normal. PULMONARY VASCULATURE: Normal. LUNGS: Clear. PLEURAL SPACE: No pleural effusion or pneumothorax. BONE:Within normal limits for the patient's age. OTHER FINDINGS:Normal. IMPRESSION: No acute pulmonary findings. DATA REPOSITORY: RADIATION DOSE DELIVERED:
--- NOTE | 2022-08-01 00:15 | DI.RAD_ITS ---
Exam(s) XR FOREARM RT EXAM: XR FOREARM RT CLINICAL HISTORY: fall. TECHNIQUE: 2D digital imaging was performed of the left forearm. Two views were obtained. AP and l ateral views were obtained. COMPARISON: No exams were available for comparison FINDINGS: BONES: No acute fracture is present. No bony destructive lesion is seen. Visualized portion of elbow and wrist joints are unremarkable. SOFT TISSUE: Normal. IMPRESSION: No acute fracture or dislocation. DATA REPOSITORY: RADIATION DOSE DELIVERED:
--- NOTE | 2022-08-01 00:15 | DI.CT_ITS ---
Exam(s) CT HEAD WO EXAM: CT HEAD WO CLINICAL HISTORY: fall. TECHNIQUE: Imaging Protocol: Axial computed tomography images with coronal and sagittal reformatted images were created and reviewed COMPARISON: CT CT HEAD CERVICAL SPINE WO from 06/05/2022 FINDINGS: Ventricles and Extra axial spaces: Normal in size and morphology for the patient's age. Hemorrhage: None. Cerebral parenchyma: There is no acute territorial infarct. There are areas of decreased attenuation in the white matter consistent with small vessel ischemic disease. Midline shift: None. Brainstem/Cerebellum: Normal. Calvarium: Normal. Visualized Paranasal sinuses/Mastoids: Clear. Soft Tissues: Unremarkable. IMPRESSION: No acute intracranial process. RADIATION DOSE DELIVERED: 889.79mGy.cm Total DLP DATA REPOSITORY: All CT scans at this facility are submitted to the National Radiology Data Registry (NRDR) Dose Index Registry (DIR) with the [employer] (A[employer]). RADIATION OPTIMIZATION: All CT scans at this facility use at least one of these dose optimization te chniques: automated exposure control; mA and/or kV adjustment per patient size (includes targeted exa ms where dose is matched to clinical indication); or iterative reconstruction.
--- NOTE | 2022-08-01 00:15 | DI.RAD_ITS ---
Exam(s) XR PELVIS AP EXAM: XR PELVIS AP CLINICAL HISTORY: fall, right leg pain. TECHNIQUE: 2D digital imaging was performed. COMPARISON: No exams were available for comparison FINDINGS: BONES: No acute fracture is present. No bony destructive lesion is seen. JOINTS: No dislocation present. There are degenerative changes seen in the hips and lumbar spine. SOFT TISSUE: There is a moderate amount of stool throughout the colon. IMPRESSION: No acute fracture or dislocation. DATA REPOSITORY: RADIATION DOSE DELIVERED:
[2022-08-01 00:21] VITALS: BP 153/78; PULSE 105; RESP 20; TEMP 37; O2SAT 95
--- NOTE | 2022-08-01 00:32 | W.ED.GENAD ---
Discharge Plan Disposition Patient Disposition: Home Discharge Details Chief Complaint: Fall/Non TraumaCriteria Clinical Impression: Fall Primary Care Provider: Mai Castelan ED Provider: Missael Josue Home Meds and New Rx's Prescriptions: No Action gabapentin 300 mg capsule 300 mg PO BID Qty: 180 3RF Rx Instructions: Dose increase 03/01/22 for chronic lumbar spine pain/spinal stenosis clindamycin HCl 300 mg capsule 600 mg PO TID (DME) lancets Misc See Rx Instructions .MEDSUPPLY Qty: 100 3RF Rx Instructions: As directed to check blood glucose daily. On insulin. Dispense covered brand. mupirocin 2 % ointment 1 applic topical BID-TID Qty: 15 0RF Rx Instructions: May substitute with cream if less expensive; apply thin layer to swollen & red finger until resolved Rybelsus 3 mg tablet 3 mg PO DAILY Qty: 30 0RF Rx Instructions: Uncontrolled diabetes (DME) Blood Glucose Test Strip See Rx Instructions .MEDSUPPLY Qty: 100 3RF Rx Instructions: As directed to check blood glucose daily. On insulin. Dispense covered brand. insulin degludec [Tresiba FlexTouch U-200] 200 unit/mL (3 mL) insulin pen 50 unit subcut DAILY MDD 80 units Qty: 12 11RF Rx Instructions: Uncontrolled T2DM (DME) Air mattress See Rx Instructions .Route .MEDSUPPLY Qty: 1 0RF Hold Instructions: Home Medication placed on hold at Doctor's office Rx Instructions: As directed (DME) Wheelchair (manual) regular See Rx Instructions .Route .MEDSUPPLY Qty: 1 0RF Rx Instructions: As directed; currently has Tracer EX2 model--please replace with similar; thank you. 03/01/22. (DME) blood-glucose meter [OneTouch Ultra2 Meter] Kit See Rx Instructions .ROUTE .MEDSUPPLY Qty: 1 0RF Rx Instructions: to check BS qid for DM E11.9 management to keep A1c under 8 metformin 500 mg tablet extended release 24 hr 500 mg PO DAILY Qty: 90 3RF Rx Instructions: Diabetes--take with food naproxen 375 mg tablet 375 mg PO .daily in AM PRN (Reason: pain) Qty: 90 0RF Rx Instructions: Chronic pain rosuvastatin 10 mg tablet 10 mg PO DAILY Qty: 90 3RF pantoprazole 40 mg tablet,delayed release (DR/EC) 40 mg PO DAILY Qty: 90 3RF metoprolol succinate 25 mg tablet extended release 24 hr 25 mg PO DAILY Qty: 90 3RF albuterol sulfate [ProAir HFA] 90 mcg/actuation HFA aerosol inhaler 1 - 2 puff Inhalation Q4H PRN Qty: 18 3RF budesonide-formoterol [Symbicort] 80-4.5 mcg/actuation HFA aerosol inhaler 2 puff Inhalation BID Qty: 3 3RF Hold Instructions: Home Medication placed on hold at Doctor's office Patient Comments: 04/01/17 Patient unsure of last dose. Maybe last Thur, but patient is noncompliant with medications CDG acetaminophen [Tylenol Arthritis Pain] 650 mg tablet extended release 1,300 mg PO Q12H Qty: 360 3RF Rx Instructions: Chronic pain--do not exceed 4G in 24 hours tylenol (DME) blood sugar diagnostic Strip See Dose Instructions .ROUTE .MEDSUPPLY Qty: 100 3RF Dose Instruction: As directed Rx Instructions: One Touch Ultra,E 11.40 tests daily on insulin (DME) Novofine Autocover 30 gauge x 1/3 needle See Rx Instructions .ROUTE .MEDSUPPLY Qty: 100 3RF Rx Instructions: For DM E11.40 to maintain A1C <8, monitoring daily levothyroxine 50 mcg tablet 50 mcg PO DAILY nystatin 100,000 unit/gram Powder 1 applic topical BID Qty: 0 0RF Discharge Instructions Instructions: Fall Prevention (ED) Additional Instructions: Please follow-up with your primary care physician Medical Decision Making 67-year-old female presents after mechanical slip and fall, remained on the ground as she was unable to get her self up, no one was home to assist, was found several hours later, patient not eaten or drank for several hours during the day. Pain to right hip pain to right arm. No external signs of cranial trauma however given age and poor historian have ordered a CT head to assess for any intracranial process. Able to range all extremities however limited range of motion due to pain in right hip consider proximal femur fracture versus less likely dislocation versus pelvic fracture must consider rib injury given mechanism and will obtain x-ray of right upper extremity due to arm pain. Patient does appear slightly dry will obtain basic labs CPK to assess for rhabdomyolysis and dehydration. Will start IV hydration. Disposition pending results and imaging 01: 53 patient resting comfortably no acute distress neurologically intact. Hemodynamically stable. Imaging unremarkable for traumatic injuries. Labs consistent with likely mild dehydration. Patient feeling better after fluids and rest. HPI General Date/Time Provider Initiated Documentation: 08/01/22 00:24. HPI Narrative: 67-year-old female presents after mechanical fall slipped while going to the restroom, no one is at home to assist her therefore she remained on the ground for several hours, pain to her right hip and leg pain to her right arm. Related Data Home Medications Medication Instructions Recorded Confirmed blood-glucose meter (OneTouch #1 ea 04/19/21 07/31/22 Ultra2 Meter kit) Air mattress #1 ea 06/15/21 07/31/22 Wheelchair (manual) #1 ea 03/01/22 07/31/22 metformin 500 mg tablet,extended 500 mg PO DAILY #90 tabs 03/07/22 07/31/22 release 24 hr naproxen 375 mg tablet 375 mg PO .daily in AM PRN pain 03/09/22 07/31/22 #90 tabs gabapentin 300 mg capsule 300 mg PO BID #180 caps 04/09/22 07/31/22 metoprolol succinate 25 mg 25 mg PO DAILY #90 tabs 05/30/22 07/31/22 tablet,extended release 24 hr pantoprazole 40 mg tablet,delayed 40 mg PO DAILY #90 tab-caps 05/30/22 07/31/22 release rosuvastatin 10 mg tablet 10 mg PO DAILY #90 tabs 05/30/22 07/31/22 clindamycin HCl 300 mg capsule 600 mg PO TID 05/31/22 07/31/22 levothyroxine 50 mcg tablet 50 mcg PO DAILY 06/01/22 07/31/22 nystatin 100,000 unit/gram topical 1 applic topical BID #0 grams 06/05/22 07/31/22 powder albuterol sulfate 90 mcg/actuation 1 - 2 puff inhalation Q4H PRN #18 06/06/22 07/31/22 aerosol inhaler (ProAir HFA) grams budesonide-formoterol HFA 80 2 puff inhalation BID ##3 06/06/22 07/31/22 mcg-4.5 mcg/actuation aerosol inhaler (Symbicort) acetaminophen 650 mg 1,300 mg PO Q12H #360 tabs 06/29/22 07/31/22 tablet,extended release (Tylenol Arthritis Pain) lancets #100 ea 06/29/22 07/31/22 mupirocin 2 % topical ointment 1 applic topical BID-TID #15 grams 06/29/22 07/31/22 semaglutide 3 mg tablet (Rybelsus) 3 mg PO DAILY #30 tabs 06/29/22 07/31/22 blood sugar diagnostic (Blood #100 ea 07/02/22 07/31/22 Glucose Test strips) insulin degludec 200 unit/mL (3 50 unit (0.25 mL) subcut DAILY #12 07/20/22 07/31/22 mL) subcutaneous pen (Tresiba mL FlexTouch U-200 insulin) blood sugar diagnostic #100 ea 07/23/22 07/31/22 pen needle, diabetic, safety 30 #100 ea 07/28/22 07/31/22 gauge x 1/3 (Novofine Autocover) Previous Rx's Medication Instructions Recorded blood-glucose meter (OneTouch #1 ea 04/19/21 Ultra2 Meter kit) Air mattress #1 ea 06/15/21 Wheelchair (manual) #1 ea 03/01/22 metformin 500 mg tablet,extended 500 mg PO DAILY #90 tabs 03/07/22 release 24 hr naproxen 375 mg tablet 375 mg PO .daily in AM PRN pain 03/09/22 #90 tabs gabapentin 300 mg capsule 300 mg PO BID #180 caps 04/09/22 metoprolol succinate 25 mg 25 mg PO DAILY #90 tabs 05/30/22 tablet,extended release 24 hr pantoprazole 40 mg tablet,delayed 40 mg PO DAILY #90 tab-caps 05/30/22 release rosuvastatin 10 mg tablet 10 mg PO DAILY #90 tabs 05/30/22 nystatin 100,000 unit/gram topical 1 applic topical BID #0 grams 06/05/22 powder albuterol sulfate 90 mcg/actuation 1 - 2 puff inhalation Q4H PRN #18 06/06/22 aerosol inhaler (ProAir HFA) grams budesonide-formoterol HFA 80 2 puff inhalation BID ##3 06/06/22 mcg-4.5 mcg/actuation aerosol inhaler (Symbicort) acetaminophen 650 mg 1,300 mg PO Q12H #360 tabs 06/29/22 tablet,extended release (Tylenol Arthritis Pain) lancets #100 ea 06/29/22 mupirocin 2 % topical ointment 1 applic topical BID-TID #15 grams 06/29/22 semaglutide 3 mg tablet (Rybelsus) 3 mg PO DAILY #30 tabs 06/29/22 blood sugar diagnostic (Blood #100 ea 07/02/22 Glucose Test strips) insulin degludec 200 unit/mL (3 50 unit (0.25 mL) subcut DAILY #12 07/20/22 mL) subcutaneous pen (Tresiba mL FlexTouch U-200 insulin) blood sugar diagnostic #100 ea 07/23/22 pen needle, diabetic, safety 30 #100 ea 07/28/22 gauge x 1/3 (Novofine Autocover) Allergies Allergy/AdvReac Type Severity Reaction Status Date / Time bupropion HCl Allergy Severe seizures Verified 05/28/22 03:10 [From Wellbutrin] carvedilol [From Coreg] Allergy Mild Itching Verified 05/28/22 03:10 morphine AdvReac Unknown nausea Verified 05/28/22 03:10 General Stated Complaint: Fall/Non TraumaCriteria DINESH: 3 Review of Systems Narrative: Review of Systems Constitutional: negative Eyes: negative ENT: negative Cardiovascular: negative Respiratory: negative Gastrointestinal: negative : negative Musculoskeletal: Arm pain, hip pain Skin: negative Neurologic: negative Psych: negative PFSH All Active Problems (Updated 08/01/22 @ 01:56 by Missael Josue MD) Fall (Acute) Eschar of toe (Acute ~05/2022) Cellulitis of toe of right foot (Acute ~05/2022) Nail dystrophy (Acute) Diabetic foot infection (Acute) Nail avulsion, toe (Acute) L great toe Urge incontinence (Chronic) Declines RX briefs Self-care deficit (Acute) Bedbound (Acute) gets up with WC to BR Recurrent falls (Chronic) Difficulty transferring from bed to wheelchair (Chronic) DME hospital bed has helped Difficulty transferring from toilet to wheelchair (Chronic) Steph investigating commode Wheelchair bound (Chronic) no falls since starting using WC permanent need severe diabetic nephropathy needs more adaptive equipment in the home Cognitive attention deficit (Chronic) needs multiple repetitions of information Diabetes type 2, uncontrolled (Chronic) though she has had education over the years, still seems not to understand carb counting ideally needs someone to educate son as he buys her food also needs hands-on teaching with nutrition labels, etc. 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) Goal A1c < 7.5% Schein, neuropathy; Charcot's foot 03/19/13 [employer] Spinal stenosis of lumbar region with neurogenic claudication (Chronic 12/08/13) 04/13/2013 MRI Lumbar Spine: Facet arthropathy, DJD, L4-5, L5-S1 central spinal and neural foraminal stenosis Neurosurgery referral, but not a surgical candidate [facility] chronic pain service Chronic Pain [facility] Pain Center consult 10/26/15 [facility] consult 03/04/17 (Sanket Sawant MD) Other and unspecified hyperlipidemia (Chronic 08/14/12) Esophageal reflux disease (Chronic 07/24/11) UPPER GI SERIES 11/14/2012, MOD HIATAL HERNIA SEVERE GERD Coronary artery disease involving false pass coronary artery of false pass heart (Chronic) INFERIOR MO 1996, 100% RCA occlusion; large inf defect on perfusion scan, dr Fair Chronic kidney disease, stage III (moderate) (Chronic 08/14/12) Cortical atrophy R kidney on CT 07/2014; multiple cysts Cardiomyopathy (Chronic) Dr Fair, EF 45% Jun 2014 ECHO (h/o much worse) 10/2016 ECHO: EF 40-45% 10/2016 MPI: no acute, but persistent old infarct COPD, mild (Chronic 07/02/17) PFTs Abdominal aortic aneurysm (Chronic 11/27/12) Identified 10/31/12 CT abd-pelvis; 4cm; stable 4.1 cm 07/2014 CT, 4.3cm 11/2016, 5.5cm 03/04/17 ([facility] not sure if it is worth following her AAA, as she is not surgical candidate defer to PCP Chronic back pain (Chronic) Lumbar spinal stenosis-->RX FENTANYL initiated inpt 12/2021; PCP rx'ing with [facility] under palliative conditions (pt cannot come in for OVs) Hypothyroidism (Chronic) Hypertension (Chronic) Marijuana dependence (Chronic) Daily use since 17yo-->helps with mood & pain Medical History Acute hyperglycemia Anaerobic bacteremia Arthropathy associated with neurological disorder (03/19/13) Dr. 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 Guerra DJD of right shoulder (01/01/13) 12/2012 x-ray severe DJD glenohumeral joint Dr. Guerra; not a surgical candidate for replacement DNI (do not intubate) DNR (do not resuscitate) Encounter for hospice care Episode of seizures in July 2012 Fall at home Goals of care, counseling/discussion DNR/DNI COLST done wants to stay home may need new agent if/when Steph moves out of state as planned Iron deficiency anemia Mass of both parotid glands Abnormal CT 08/2019 Mild pulmonary hypertension Nausea and vomiting (08/01/14) a. previous history of possible marijuana induced hyperemesis Osteoarthritis of left elbow Palliative care patient Perirectal abscess With associated hospitalization 2019 POLST (Physician Orders for Life-Sustaining Treatment) signed 06/01/20 Pulmonary embolism (~12/2021) Never started anticoagulation RLS (restless legs syndrome) Tinea corporis Surgical History Appendectomy Childhood surgery, no date given by pt.HE Hemiarthroplasty (06/13/15) Dr Charlie Gallardo shoulder History of carpal tunnel release of both wrists (~05/2012) Hx of umbilical hernia repair (09/06/15) Incarcerated umbilical hernia repair (09/06/15) Tonsillectomy childhood surgery, no date given by pt.HE Family History Mother , at 73 yo from dementia Dementia Diabetes Stroke Blind Father , MVA (truck) accident at 45yo No problems noted. Sister Age: 62 Thyroid cancer Brother , from complications of diabetes age 60 Diabetes Brother Diabetes Heart disease Colon cancer Ulcerative colitis Sister Obesity Prediabetes Arthritis Son Substance abuse attends [facility]; h/o heroin and other opioid addiction Other FH: mental illness Social History Smoking/Tobacco Use Status: Current every day Tobacco Type: cigarettes Tobacco: How many years used: 54 Quit status: not considering quitting Counseling given: counseling >3 minutes Smoking risk assessment performed?: Yes Alcohol Intake: former Drug use: Daily Substance use type: marijuana Counseling given: Yes Details: pt states she smokes marijuana on a daily basis x1 per day Adopted: No Caregiver/Support person: Yes Foster care: No Household members: children Housing: house Number of Children: 1 number of grandchildren: 0 Communication Needs: Corrective Lenses Education Level: high school Details: didn't finish sophomore year Do you need help understanding health information?: Always 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; 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 Pets and animals: Yes Current gender identity: female What is your relationship status?: How often do you talk on the phone with friends or family?: three or more times per week How often do you get together with friends or relatives?: twice per week Panel score (0-1 are the most socially isolated patients): 1 What type of physical activity do you participate in: none and wheelchair-bound Special eliana needs: No Seatbelt use: sometimes Working smoke detector in home: Yes Fire extinguisher in home: Yes Do you feel safe at home: Yes (Most of the time, yes I feel better if my son or somebody is there) Do you feel safe in your relationship?: Yes Additional Social history: Patient reports she lives with her son Exam Narrative Exam Narrative: Physical Examination General: alert, awake, cooperative, resting comfortably, no acute distress HEENT: normocephalic, atraumatic; PERRL, EOM intact, conjunctiva normal; no nasal discharge; moist mucous membranes, oral and pharyngeal mucosa normal, tolerating secretions Neck: supple, trachea midline; full ROM Chest: normal to inspection Respiratory: normal respiratory effort, speaking in full sentences, clear to auscultation, no wheezing, rales or rhonchi Cardiac: regular rate, regular rhythm, S1S2 intact, no murmurs rubs or gallops GI: abdomen soft, non-tender, non-distended; no palpable mass or hepatosplenomegaly Skin: no lesions, rashes or trauma appreciated Neuro: AAOx3, normal speech, moving all extremities Extremities: Decreased range of motion right lower extremity due to pain in hip, soft compartments, warm well perfused Psych: Appropriate mood and affect Course Vital Signs Vital signs: Vital Signs Temperature 37 C 08/01/22 00:21 Pulse 105 H 08/01/22 00:21 Respiratory Rate 20 08/01/22 00:21 Blood Pressure 153/78 H 08/01/22 00:21 Pulse Oximetry 95 08/01/22 00:21 Temperature 37 C 08/01/22 00:21 Pulse 105 H 08/01/22 00:21 Respiratory Rate 20 08/01/22 00:21 Blood Pressure 153/78 H 08/01/22 00:21 Pulse Oximetry 95 08/01/22 00:21 Oxygen Delivery Method Room Air 08/01/22 00:21 Oxygen Flow Rate 0 08/01/22 00:21 Pain Level 8 08/01/22 00:21
[2022-08-01] MEDS: Normal Saline 500 ML 1000 ML IV (00:41)
[2022-08-01 00:42] LABS: Abs Immature Grans 0.06 10^3/uL (0.0-0.06); Absolute Basophil Count 0.03 10^3/uL (0.0-0.2); Absolute Lymphocyte Count 0.79 10^3/uL (1.2-3.4); Absolute Monocyte Count 0.73 10^3/uL (0.1-0.8); Absolute Neutrophil Count 13.02 10^3/uL (1.2-6.7); Basophils % 0.2; Immature Grans % 0.4; Lymphocytes % 5.4; MCH 24.3 pg (27.0-33.0); MCHC 30.6 % (32.0-36.0); MCV 80 fL (80-95); MPV 11.1 fL (8.0-11.0); Platelet Count 209 10^3/uL (130-400); RBC 4.52 10^6/uL (3.93-5.22); RDW 16.2 % (11.7-14.6); RDW-SD 45.9 fL; WBC 14.63 10^3/uL (4.4-10.8)
--- NOTE | 2022-08-01 01:01 | DI.VRAD_ITS ---
PROCEDURE INFORMATION: Exam: CT Head Without Contrast Exam date and time: 08/01/2022 12:50 AM Age: 67 years old Clinical indication: Injury or trauma; Fall; Blunt trauma (contusions or hematomas); Consciousness not specified; Injury date: 07/31/22 TECHNIQUE: Imaging protocol: Computed tomography of the head without contrast. Radiation optimization: All CT scans at this facility use at least one of these dose optimization techniques: automated exposure control; mA and/or kV adjustment per patient size (includes targeted exams where dose is matched to clinical indication); or iterative reconstruction. COMPARISON: CT HEAD CERVICAL SPINE WO 06/05/2022 9:57 PM FINDINGS: Brain: Mild volume loss No hemorrhage. Mild white matter disease. No mass effect. Cerebral ventricles: No ventriculomegaly. Paranasal sinuses: Visualized sinuses are unremarkable. No fluid levels. Mastoid air cells: Visualized mastoid air cells are well aerated. Bones/joints: Unremarkable. No acute fracture. Soft tissues: Unremarkable. IMPRESSION: No acute intracranial abnormality. Dictated and Authenticated by: Sanket Mueller MD. Ordering:MIKE Canas MD
[2022-08-01 01:08] LABS: ALT 18 U/L (14-59); AST 32 U/L (15-37); Albumin 3.2 g/dL (3.4-5.0); Alkaline Phosphatase 101 U/L (46-116); Anion Gap 8.8 mmol/L (3-11); BUN 21 mg/dL (7-18); Bilirubin, Total 0.4 mg/dL (0.2-1.0); CO2 24.2 mmol/L (21.0-32.0); CREATININE 0.9 mg/dL (0.55-1.02); Calcium 9.8 mg/dL (8.5-10.1); Chloride 105 mmol/L (98-107); Creatine Kinase 755 U/L (26-192); Estimated GFR 69.64 (mL/min/1.73m2); Glucose 221 mg/dL (74-106); Potassium 4.1 mmol/L (3.5-5.1); Sodium 138 mmol/L (136-145); Total Protein 6.7 g/dL (6.4-8.2)
--- NOTE | 2022-08-01 01:37 | DI.VRAD_ITS ---
PROCEDURE INFORMATION: Exam: XR Chest Exam date and time: 08/01/2022 1:01 AM Age: 67 years old Clinical indication: Injury or trauma; Blunt trauma (contusions or hematomas); Injury date: 07/31/22; Injury details: Fall, R sided pain; Prior surgery; Surgery date: 6+ months; Surgery type: Shoulder TECHNIQUE: Imaging protocol: Radiologic exam of the chest. Views: 1 view. COMPARISON: CR XR CHEST 2V PA LATERAL 06/05/2022 10:09 PM FINDINGS: Lungs: Unremarkable. No consolidation. Pleural spaces: Unremarkable. No pleural effusion. No pneumothorax. Heart/Mediastinum: Grossly stable. Bones/joints: Grossly stable. IMPRESSION: No acute findings. Dictated and Authenticated by: Sanket Mueller MD. Ordering:MIKE Canas MD
--- NOTE | 2022-08-01 01:38 | DI.VRAD_ITS ---
PROCEDURE INFORMATION: Exam: XR Right Femur Exam date and time: 08/01/2022 1:06 AM Age: 67 years old Clinical indication: Injury or trauma; Blunt trauma; Thigh or upper leg; Right; Injury date: 07/31/22; Injury details: Fall, R sided pain TECHNIQUE: Imaging protocol: Radiologic exam of the right femur. Views: 2 views. COMPARISON: CR XR PELVIS AP 08/01/2022 1:04 AM FINDINGS: Bones/joints: Degenerative changes in the right knee. No acute fracture. Question enchondroma versus prior bone infarction in the inter trochanteric region Soft tissues: Vascular calcifications. IMPRESSION: No acute findings. Dictated and Authenticated by: Sanket Mueller MD. Ordering:MIKE Canas MD
--- NOTE | 2022-08-01 01:38 | DI.VRAD_ITS ---
PROCEDURE INFORMATION: Exam: XR Pelvis Exam date and time: 08/01/2022 1:04 AM Age: 67 years old Clinical indication: Injury or trauma; Blunt trauma (contusions or hematomas); Bilateral; Pelvic region; Injury date: 07/31/22; Injury details: Fall, R sided pain TECHNIQUE: Imaging protocol: Radiologic exam of the pelvis. Views: 1 or 2 view. COMPARISON: CR XR HIP LT COMPLETE AP PELVIS 12/23/2021 7:41 PM FINDINGS: Bones/joints: Degenerative changes in the lower lumbar spine and hips. No acute fracture. Soft tissues: Unremarkable. IMPRESSION: No acute findings. Dictated and Authenticated by: Sanket Mueller MD. Ordering:MIKE Canas MD
--- NOTE | 2022-08-01 01:39 | DI.VRAD_ITS ---
PROCEDURE INFORMATION: Exam: XR Right Forearm Exam date and time: 08/01/2022 1:18 AM Age: 67 years old Clinical indication: Injury or trauma; Blunt trauma (contusions or hematomas); Arm, lower; Right; Injury date: 07/31/22; Injury details: Fall, R sided pain; Prior surgery; Surgery date: 6+ months; Surgery type: Wrist TECHNIQUE: Imaging protocol: Radiologic exam of the right forearm. Views: 2 views. COMPARISON: No relevant prior studies available. FINDINGS: Mildly limited due to positioning Bones/joints: No acute fracture or dislocation Soft tissues: Normal. IMPRESSION: No acute findings. Dictated and Authenticated by: Sanket Mueller MD. Ordering:MIKE Canas MD
--- NOTE | 2022-08-01 01:40 | DI.VRAD_ITS ---
PROCEDURE INFORMATION: Exam: XR Right Tibia and Fibula Exam date and time: 08/01/2022 1:24 AM Age: 67 years old Clinical indication: Injury or trauma; Blunt trauma; Lower leg; Right; Injury date: 07/31/22; Injury details: Fall, R sided pain TECHNIQUE: Imaging protocol: Radiologic exam of the right tibia and fibula. Views: 2 views. COMPARISON: CR XR FOOT RT COMPLETE 05/22/2022 2:34 PM FINDINGS: Bones/joints: Calcaneal spur. No acute fracture or dislocation Soft tissues: Normal. IMPRESSION: No acute findings. Dictated and Authenticated by: Sanket Mueller MD. Ordering:MIKE Canas MD
--- NOTE | 2022-08-01 01:41 | DI.VRAD_ITS ---
PROCEDURE INFORMATION: Exam: XR Right Humerus Exam date and time: 08/01/2022 1:12 AM Age: 67 years old Clinical indication: Injury or trauma; Blunt trauma (contusions or hematomas); Arm, upper; Right; Injury date: 07/31/22; Injury details: Fall, R sided pain; Prior surgery; Surgery date: 6+ months; Surgery type: Shoulder TECHNIQUE: Imaging protocol: Radiologic exam of the right humerus. Views: 2 or more views. COMPARISON: CR XR CHEST 1V IN DI DEPT 08/01/2022 1:01 AM FINDINGS: Bones/joints: Humeral head arthroplasty. No acute fracture or dislocation Soft tissues: Normal. IMPRESSION: No acute findings. Dictated and Authenticated by: Sanket Mueller MD. Ordering:MIKE Canas MD
[2022-08-01 01:53] VITALS: BP 155/61; PULSE 83; RESP 18; O2SAT 93
[2022-08-01 02:30] VITALS: BP 155/86; PULSE 83; RESP 18; O2SAT 95
== END 2022-08-01 02:49 | disposition home or self-care (01) ==
PROVIDERS: Emergency Provider Emergency Medicine; PCP Nurse Practitioner Adult Health
DX: M25.551 Pain in right hip (principal); M79.601 Pain in right arm; W01.0XXA Fall on same level from slipping, tripping and stumbling without subsequent striking against object, initial encounter; Y92.009 Unspecified place in unspecified non-institutional (private) residence as the place of occurrence of the external cause; Z66 Do not resuscitate
CPT/HCPCS: 73552; 80053; 82550; 96360; 99284; 70450; 71045; 72170; 73060; 73090; 73590; 85025

== ENCOUNTER 2022-08-03 06:45 | Observation (INO) | payer OTHER, MEDICAID, SELFPAY ==
[2022-08-03] VITALS (12 sets, daily range): BP systolic 128–149; BP diastolic 57–93; PULSE 72–84; RESP 18–20; TEMP 35.9–37.3; O2SAT 92–97
--- NOTE | 2022-08-03 08:09 | W.ED.GENAD ---
Discharge Plan Disposition Patient Disposition: Admit to [facility] Condition: Stable Discharge Details Chief Complaint: Fall/Non TraumaCriteria Clinical Impression: Acute UTI, Falls, Acute dehydration, Acute delirium Primary Care Provider: Mai Castelan ED Provider: Missael Josue Home Meds and New Rx's Prescriptions: No Action gabapentin 300 mg capsule 300 mg PO BID Qty: 180 3RF Rx Instructions: Dose increase 03/01/22 for chronic lumbar spine pain/spinal stenosis clindamycin HCl 300 mg capsule 600 mg PO TID (DME) lancets Misc See Rx Instructions .MEDSUPPLY Qty: 100 3RF Rx Instructions: As directed to check blood glucose daily. On insulin. Dispense covered brand. mupirocin 2 % ointment 1 applic topical BID-TID Qty: 15 0RF Rx Instructions: May substitute with cream if less expensive; apply thin layer to swollen & red finger until resolved Rybelsus 3 mg tablet 3 mg PO DAILY Qty: 30 0RF Rx Instructions: Uncontrolled diabetes (DME) Blood Glucose Test Strip See Rx Instructions .MEDSUPPLY Qty: 100 3RF Rx Instructions: As directed to check blood glucose daily. On insulin. Dispense covered brand. insulin degludec [Tresiba FlexTouch U-200] 200 unit/mL (3 mL) insulin pen 50 unit subcut DAILY MDD 80 units Qty: 12 11RF Rx Instructions: Uncontrolled T2DM (DME) Air mattress See Rx Instructions .Route .MEDSUPPLY Qty: 1 0RF Hold Instructions: Home Medication placed on hold at Doctor's office Rx Instructions: As directed (DME) Wheelchair (manual) regular See Rx Instructions .Route .MEDSUPPLY Qty: 1 0RF Rx Instructions: As directed; currently has Tracer EX2 model--please replace with similar; thank you. 03/01/22. (DME) blood-glucose meter [OneTouch Ultra2 Meter] Kit See Rx Instructions .ROUTE .MEDSUPPLY Qty: 1 0RF Rx Instructions: to check BS qid for DM E11.9 management to keep A1c under 8 metformin 500 mg tablet extended release 24 hr 500 mg PO DAILY Qty: 90 3RF Rx Instructions: Diabetes--take with food naproxen 375 mg tablet 375 mg PO .daily in AM PRN (Reason: pain) Qty: 90 0RF Rx Instructions: Chronic pain rosuvastatin 10 mg tablet 10 mg PO DAILY Qty: 90 3RF pantoprazole 40 mg tablet,delayed release (DR/EC) 40 mg PO DAILY Qty: 90 3RF metoprolol succinate 25 mg tablet extended release 24 hr 25 mg PO DAILY Qty: 90 3RF albuterol sulfate [ProAir HFA] 90 mcg/actuation HFA aerosol inhaler 1 - 2 puff Inhalation Q4H PRN Qty: 18 3RF budesonide-formoterol [Symbicort] 80-4.5 mcg/actuation HFA aerosol inhaler 2 puff Inhalation BID Qty: 3 3RF Hold Instructions: Home Medication placed on hold at Doctor's office Patient Comments: 04/01/17 Patient unsure of last dose. Maybe last Thur, but patient is noncompliant with medications CDG acetaminophen [Tylenol Arthritis Pain] 650 mg tablet extended release 1,300 mg PO Q12H Qty: 360 3RF Rx Instructions: Chronic pain--do not exceed 4G in 24 hours tylenol (DME) blood sugar diagnostic Strip See Dose Instructions .ROUTE .MEDSUPPLY Qty: 100 3RF Dose Instruction: As directed Rx Instructions: One Touch Ultra,E 11.40 tests daily on insulin (DME) Novofine Autocover 30 gauge x 1/3 needle See Rx Instructions .ROUTE .MEDSUPPLY Qty: 100 3RF Rx Instructions: For DM E11.40 to maintain A1C <8, monitoring daily levothyroxine 50 mcg tablet 50 mcg PO DAILY nystatin 100,000 unit/gram Powder 1 applic topical BID Qty: 0 0RF Medical Decision Making 67-year-old female history of diabetes presents after multiple recent falls at home most recently from her wheelchair, slid off her chair onto the ground, denies loss of consciousness, no external signs of trauma, moving all extremities to command, hemodynamically stable afebrile, does appear frail and fatigued as well as dehydrated given dry oral mucosa and poor skin turgor. Patient is also endorsing urinary frequency. Must consider dehydration versus UTI versus electrolyte abnormality lower suspicion for ACS or intracranial hemorrhage, no external signs of thoracoabdominal trauma no signs of spinal trauma will obtain basic labs urinalysis, fluid hydration screening x-ray of chest and pelvis. Disposition pending results and reassessment 1142 evidence of UTI. Likely contributing to dehydration and mild delirium. Given multiple falls debility and UTI patient will be admitted. Started on ceftriaxone fluid bolus given. Patient will likely benefit from rehabilitation stay/placement HPI General Date/Time Provider Initiated Documentation: 08/03/22 06:52. HPI Narrative: 67-year-old female history of diabetes presents after fall from wheelchair at home patient has had multiple falls over the past several weeks. Endorses generalized fatigue and urinary frequency. Denies loss of consciousness chest pain or shortness of breath Related Data Home Medications Medication Instructions Recorded Confirmed blood-glucose meter (OneTouch #1 ea 04/19/21 08/03/22 Ultra2 Meter kit) Air mattress #1 ea 06/15/21 08/03/22 Wheelchair (manual) #1 ea 03/01/22 08/03/22 metformin 500 mg tablet,extended 500 mg PO DAILY #90 tabs 03/07/22 08/03/22 release 24 hr naproxen 375 mg tablet 375 mg PO .daily in AM PRN pain 03/09/22 08/03/22 #90 tabs gabapentin 300 mg capsule 300 mg PO BID #180 caps 04/09/22 08/03/22 metoprolol succinate 25 mg 25 mg PO DAILY #90 tabs 05/30/22 08/03/22 tablet,extended release 24 hr pantoprazole 40 mg tablet,delayed 40 mg PO DAILY #90 tab-caps 05/30/22 08/03/22 release rosuvastatin 10 mg tablet 10 mg PO DAILY #90 tabs 05/30/22 08/03/22 clindamycin HCl 300 mg capsule 600 mg PO TID 05/31/22 08/03/22 levothyroxine 50 mcg tablet 50 mcg PO DAILY 06/01/22 08/03/22 nystatin 100,000 unit/gram topical 1 applic topical BID #0 grams 06/05/22 08/03/22 powder albuterol sulfate 90 mcg/actuation 1 - 2 puff inhalation Q4H PRN #18 06/06/22 08/03/22 aerosol inhaler (ProAir HFA) grams budesonide-formoterol HFA 80 2 puff inhalation BID ##3 06/06/22 08/03/22 mcg-4.5 mcg/actuation aerosol inhaler (Symbicort) acetaminophen 650 mg 1,300 mg PO Q12H #360 tabs 02/17/23 03/24/23 tablet,extended release (Tylenol Arthritis Pain) lancets #100 ea 06/29/22 08/03/22 mupirocin 2 % topical ointment 1 applic topical BID-TID #15 grams 06/29/22 08/03/22 semaglutide 3 mg tablet (Rybelsus) 3 mg PO DAILY #30 tabs 06/29/22 08/03/22 blood sugar diagnostic (Blood #100 ea 07/02/22 08/03/22 Glucose Test strips) insulin degludec 200 unit/mL (3 50 unit (0.25 mL) subcut DAILY #12 07/20/22 08/03/22 mL) subcutaneous pen (Tresiba mL FlexTouch U-200 insulin) blood sugar diagnostic #100 ea 07/23/22 08/03/22 pen needle, diabetic, safety 30 #100 ea 07/28/22 08/03/22 gauge x 1/3 (Novofine Autocover) Previous Rx's Medication Instructions Recorded blood-glucose meter (OneTouch #1 ea 04/19/21 Ultra2 Meter kit) Air mattress #1 ea 06/15/21 Wheelchair (manual) #1 ea 03/01/22 metformin 500 mg tablet,extended 500 mg PO DAILY #90 tabs 03/07/22 release 24 hr naproxen 375 mg tablet 375 mg PO .daily in AM PRN pain 03/09/22 #90 tabs gabapentin 300 mg capsule 300 mg PO BID #180 caps 04/09/22 metoprolol succinate 25 mg 25 mg PO DAILY #90 tabs 05/30/22 tablet,extended release 24 hr pantoprazole 40 mg tablet,delayed 40 mg PO DAILY #90 tab-caps 05/30/22 release rosuvastatin 10 mg tablet 10 mg PO DAILY #90 tabs 05/30/22 nystatin 100,000 unit/gram topical 1 applic topical BID #0 grams 06/05/22 powder albuterol sulfate 90 mcg/actuation 1 - 2 puff inhalation Q4H PRN #18 06/06/22 aerosol inhaler (ProAir HFA) grams budesonide-formoterol HFA 80 2 puff inhalation BID ##3 06/06/22 mcg-4.5 mcg/actuation aerosol inhaler (Symbicort) acetaminophen 650 mg 1,300 mg PO Q12H #360 tabs 06/29/22 tablet,extended release (Tylenol Arthritis Pain) lancets #100 ea 06/29/22 mupirocin 2 % topical ointment 1 applic topical BID-TID #15 grams 06/29/22 semaglutide 3 mg tablet (Rybelsus) 3 mg PO DAILY #30 tabs 06/29/22 blood sugar diagnostic (Blood #100 ea 07/02/22 Glucose Test strips) insulin degludec 200 unit/mL (3 50 unit (0.25 mL) subcut DAILY #12 07/20/22 mL) subcutaneous pen (Tresiba mL FlexTouch U-200 insulin) blood sugar diagnostic #100 ea 07/23/22 pen needle, diabetic, safety 30 #100 ea 07/28/22 gauge x 1/3 (Novofine Autocover) Allergies Allergy/AdvReac Type Severity Reaction Status Date / Time bupropion HCl Allergy Severe seizures Verified 05/28/22 03:10 [From Wellbutrin] carvedilol [From Coreg] Allergy Mild Itching Verified 05/28/22 03:10 morphine AdvReac Unknown nausea Verified 05/28/22 03:10 General Stated Complaint: Fall/Non TraumaCriteria DINESH: 3 Review of Systems Narrative: Review of Systems Constitutional: Fatigue Eyes: negative ENT: negative Cardiovascular: negative Respiratory: negative Gastrointestinal: negative : Urinary frequency Musculoskeletal: negative Skin: negative Neurologic: negative Psych: negative PFSH All Active Problems (Updated 08/03/22 @ 11:44 by Missael Josue MD) Fall (Acute) Acute UTI (Acute) Falls (Acute) Acute dehydration (Acute) Acute delirium (Acute) Eschar of toe (Acute ~05/2022) Cellulitis of toe of right foot (Acute ~05/2022) Nail dystrophy (Acute) Diabetic foot infection (Acute) Nail avulsion, toe (Acute) L great toe Urge incontinence (Chronic) Declines RX briefs Self-care deficit (Acute) Bedbound (Acute) gets up with WC to BR Recurrent falls (Chronic) Difficulty transferring from bed to wheelchair (Chronic) DME hospital bed has helped Difficulty transferring from toilet to wheelchair (Chronic) Steph investigating commode Wheelchair bound (Chronic) no falls since starting using WC permanent need severe diabetic nephropathy needs more adaptive equipment in the home Cognitive attention deficit (Chronic) needs multiple repetitions of information Diabetes type 2, uncontrolled (Chronic) though she has had education over the years, still seems not to understand carb counting ideally needs someone to educate son as he buys her food also needs hands-on teaching with nutrition labels, etc. 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) Goal A1c < 7.5% Schein, neuropathy; Charcot's foot 03/19/13 [employer] Spinal stenosis of lumbar region with neurogenic claudication (Chronic 12/08/13) 04/13/2013 MRI Lumbar Spine: Facet arthropathy, DJD, L4-5, L5-S1 central spinal and neural foraminal stenosis Neurosurgery referral, but not a surgical candidate [facility] chronic pain service Chronic Pain [facility] Pain Center consult 10/26/15 [facility] [place] [facility] consult 03/04/17 (Sanket Sawant MD) Other and unspecified hyperlipidemia (Chronic 08/14/12) Esophageal reflux disease (Chronic 07/24/11) UPPER GI SERIES 11/14/2012, MOD HIATAL HERNIA SEVERE GERD Coronary artery disease involving [place] coronary artery of [place] heart (Chronic) INFERIOR [place] 1996, 100% RCA occlusion; large inf defect on perfusion scan, dr Fair Chronic kidney disease, stage III (moderate) (Chronic 08/14/12) 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 not sure if it is worth following her AAA, as she is not surgical candidate defer to PCP Chronic back pain (Chronic) Lumbar spinal stenosis-->RX FENTANYL initiated inpt 12/2021; PCP rx'ing with [facility] under palliative conditions (pt cannot come in for OVs) Hypothyroidism (Chronic) Hypertension (Chronic) Marijuana dependence (Chronic) Daily use since 17yo-->helps with mood & pain Medical History Acute hyperglycemia Anaerobic bacteremia Arthropathy associated with neurological disorder (03/19/13) Dr. 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 Guerra DJD of right shoulder (01/01/13) 12/2012 x-ray severe DJD glenohumeral joint Dr. Guerra; not a surgical candidate for replacement DNI (do not intubate) DNR (do not resuscitate) Encounter for hospice care Episode of seizures in July 2012 Fall at home Goals of care, counseling/discussion DNR/DNI COLST done wants to stay home may need new agent if/when Steph moves out of state as planned Iron deficiency anemia Mass of both parotid glands Abnormal CT 08/2019 Mild pulmonary hypertension Nausea and vomiting (08/01/14) a. previous history of possible marijuana induced hyperemesis Osteoarthritis of left elbow Palliative care patient Perirectal abscess With associated hospitalization 2019 POLST (Physician Orders for Life-Sustaining Treatment) signed 06/01/20 Pulmonary embolism (~12/2021) Never started anticoagulation RLS (restless legs syndrome) Tinea corporis Surgical History Appendectomy Childhood surgery, no date given by pt.HE Hemiarthroplasty (06/13/15) Dr Charlie Gallardo shoulder History of carpal tunnel release of both wrists (~05/2012) Hx of umbilical hernia repair (09/06/15) Incarcerated umbilical hernia repair (09/06/15) Tonsillectomy childhood surgery, no date given by pt.HE Family History Mother , at 73 yo from dementia Dementia Diabetes Stroke Blind Father , MVA (truck) accident at 45yo No problems noted. Sister Age: 62 Thyroid cancer Brother , from complications of diabetes age 60 Diabetes Brother Diabetes Heart disease Colon cancer Ulcerative colitis Sister Obesity Prediabetes Arthritis Son Substance abuse attends [facility] clinic; h/o heroin and other opioid addiction Other FH: mental illness Social History Smoking/Tobacco Use Status: Current every day Tobacco Type: cigarettes Tobacco: How many years used: 54 Quit status: not considering quitting Counseling given: counseling >3 minutes Smoking risk assessment performed?: Yes Alcohol Intake: former Drug use: Daily Substance use type: marijuana Counseling given: Yes Details: pt states she smokes marijuana on a daily basis x1 per day Adopted: No Caregiver/Support person: Yes Foster care: No Household members: children Housing: house Number of Children: 1 number of grandchildren: 0 Communication Needs: Corrective Lenses Education Level: high school Details: didn't finish sophomore year Do you need help understanding health information?: Always 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; 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 Pets and animals: Yes Current gender identity: female What is your relationship status?: How often do you talk on the phone with friends or family?: three or more times per week How often do you get together with friends or relatives?: twice per week Panel score (0-1 are the most socially isolated patients): 1 What type of physical activity do you participate in: none and wheelchair-bound Special eliana needs: No Seatbelt use: sometimes Working smoke detector in home: Yes Fire extinguisher in home: Yes Do you feel safe at home: Yes (Most of the time, yes I feel better if my son or somebody is there) Do you feel safe in your relationship?: Yes Additional Social history: Patient reports she lives with her son Exam Narrative Exam Narrative: Physical Examination General: alert, awake, cooperative, appears fatigued HEENT: normocephalic, atraumatic; PERRL, EOM intact, conjunctiva normal; no nasal discharge; drying of oral mucosa Neck: supple, trachea midline; full ROM Chest: normal to inspection Respiratory: normal respiratory effort, speaking in full sentences, clear to auscultation, no wheezing, rales or rhonchi Cardiac: regular rate, regular rhythm, S1S2 intact, no murmurs rubs or gallops GI: abdomen soft, non-tender, non-distended; no palpable mass or hepatosplenomegaly Back: No midline spinal tenderness step-off or deformity Skin: Chronic appearing venous stasis changes of lower extremities; poor skin turgor Neuro: AAOx3, normal speech, moving all extremities Extremities: Chronic appearing venous stasis changes of lower extremities Psych: Appropriate mood and affect Course Vital Signs Vital signs: Vital Signs Temperature 35.9 C L 08/03/22 06:49 Pulse 76 08/03/22 06:49 Respiratory Rate 18 08/03/22 06:49 Blood Pressure 143/80 H 08/03/22 06:49 Pulse Oximetry 95 08/03/22 06:49 Temperature 35.9 C L 08/03/22 06:49 Temperature Source Tympanic 08/03/22 06:49 Pulse 76 08/03/22 06:49 Respiratory Rate 18 08/03/22 06:49 Respiratory Effort Normal, Non-Labored 08/03/22 07:25 Blood Pressure 143/80 H 08/03/22 06:49 Blood Pressure Position Supine 08/03/22 06:49 Pulse Oximetry 95 08/03/22 06:49 Oxygen Delivery Method Room Air 08/03/22 06:49 Oxygen Flow Rate 0 08/03/22 06:49 Pain Level 6 08/03/22 06:49
[2022-08-03 08:17] LABS: Abs Immature Grans 0.03 10^3/uL (0.0-0.06); Absolute Basophil Count 0.04 10^3/uL (0.0-0.2); Absolute Eosinophil Count 0.09 10^3/uL (0.0-0.7); Absolute Lymphocyte Count 0.97 10^3/uL (1.2-3.4); Absolute Monocyte Count 0.46 10^3/uL (0.1-0.8); Absolute Neutrophil Count 4.77 10^3/uL (1.2-6.7); Basophils % 0.6; Eosinophils % 1.4; HGB 10.8 g/dL (11.2-15.7); Immature Grans % 0.5; Lymphocytes % 15.3; MCH 24.7 pg (27.0-33.0); MCHC 30.9 % (32.0-36.0); MCV 80 fL (80-95); MPV 11.3 fL (8.0-11.0); Monocytes % 7.2; Platelet Count 187 10^3/uL (130-400); RBC 4.37 10^6/uL (3.93-5.22); RDW 15.7 % (11.7-14.6); WBC 6.36 10^3/uL (4.4-10.8)
[2022-08-03 08:34] LABS: ALT 22 U/L (14-59); AST 25 U/L (15-37); Albumin 2.9 g/dL (3.4-5.0); Alkaline Phosphatase 94 U/L (46-116); Anion Gap 4.5 mmol/L (3-11); BUN 14 mg/dL (7-18); Bilirubin, Total 0.4 mg/dL (0.2-1.0); CO2 25.5 mmol/L (21.0-32.0); CREATININE 0.8 mg/dL (0.55-1.02); Chloride 104 mmol/L (98-107); Estimated GFR 80.21 (mL/min/1.73m2); Glucose 287 mg/dL (74-106); Potassium 4.6 mmol/L (3.5-5.1); Sodium 134 mmol/L (136-145); Total Protein 6.5 g/dL (6.4-8.2)
[2022-08-03 08:35] LABS: ETHANOL BLOOD < 3.0 mg/dL (<10)
--- NOTE | 2022-08-03 09:04 | DI.RAD_ITS ---
Exam(s) XR CHEST 1V IN DI DEPT EXAM: XR CHEST 1V IN DI DEPT CLINICAL HISTORY: fall, fatigue TECHNIQUE: 2D digital imaging was performed of the chest. One image was obtained. An AP view was ob tained. COMPARISON: CR,XR XR CHEST 1V IN DI DEPT from 08/01/2022 FINDINGS: MEDIASTINUM: Normal. HEART: Normal. PULMONARY VASCULATURE: Normal. LUNGS: Clear. PLEURAL SPACE: No pleural effusion or pneumothorax. BONE:Within normal limits for the patient's age. There again seen findings of a right shoulder replac ement. OTHER FINDINGS:Normal. IMPRESSION: No acute pulmonary findings. DATA REPOSITORY: RADIATION DOSE DELIVERED:
--- NOTE | 2022-08-03 09:04 | DI.RAD_ITS ---
Exam(s) XR PELVIS AP EXAM: XR PELVIS AP CLINICAL HISTORY: fall. TECHNIQUE: 2D digital imaging was performed. COMPARISON: CR,XR XR PELVIS AP from 08/01/2022 FINDINGS: BONES: No acute fracture is present. No bony destructive lesion is seen. JOINTS: No dislocation present. Mild degenerative changes are seen in the hips bilaterally. There ar e degenerative changes seen in the lower lumbar spine. SOFT TISSUE: Atherosclerosis is present. IMPRESSION: There is no acute fracture or dislocation. DATA REPOSITORY: RADIATION DOSE DELIVERED:
[2022-08-03] MEDS: Normal Saline 1,000 ML 1000 ML IV (10:00)
--- NOTE | 2022-08-03 10:13 | NUR.NOTE ---
Nursing Note: Report received from Bethany SHELLEY. Care assumed at this time.
--- NOTE | 2022-08-03 10:46 | NUR.NOTE ---
Nursing Note: Bethany SHELLEY and Dr Han at bedside. 16f jerez cath inserted using aseptic technique. approx 500ml yellow urine obtained, specimen sent to lab. Balloon inflated w/ 10ml saline. Pt tolerated well. Catheter secured to pt R inner thigh. Will cont to monitor.
[2022-08-03 10:55] LABS: Bilirubin Negative (Negative); Blood Trace-lysed (Negative); Clarity Sl Cloudy (Clear); Glucose >=1000 mg/dL (Negative); Ketones Negative (Negative); Leukocyte Esterase Negative (Negative); Nitrite Positive (Negative); Specific Gravity 1.025 (1.005-1.025); Urobilinogen 0.2 mg/dL (Up to 0.2)
[2022-08-03 11:04] LABS: Bacteria Many HPF (Negative); C & S Indicated? Yes; Casts Negative LPF (Negative); Crystals Negative HPF (Negative); Epithelial Cells Rare HPF (Negative); Mucus Negative (Negative); RBC 0-2 HPF (0-2)
--- NOTE | 2022-08-03 11:30 | NUR.NOTE ---
Nursing Note: Pt provided sandwich and gingerale as requested. Assisted in repositioning in bed. No other need voiced. Will cont to monitor.
[2022-08-03 11:56] LABS: Source Nasal/Nares
--- NOTE | 2022-08-03 12:15 | NUR.NOTE ---
Nursing Note: Pt repositioned onto L side w/ assistance. No other need voiced at this time. Call light in reach.
[2022-08-03 12:35] LABS: COVID-19 PCR Negative (Negative)
[2022-08-03] MEDS: cefTRIAXone 1 GM/50 ML BAG IVPB (13:19)
[2022-08-03] MEDS: Enoxaparin 40 MG/0.4 ML SYR SC (15:15)
[2022-08-03] MEDS: Fosfomycin Tromethamine 3 GM PACKET PO (15:50)
--- NOTE | 2022-08-03 16:13 | NUR.NOTE ---
Nursing Note: Called & gave patients sister Steph Calhoun at [phone] an update on patient status. Sister states patient has a history of leaving the hospital AMA & asked if the patient tried to do so again if she could get a call first due to she can talk her out of it. She also stated PT is wheelchair bound & unable to ambulate safely on her own..
[2022-08-03] MEDS: Insulin Aspart 300 UNITS/3 ML PEN SC (18:07)
--- NOTE | 2022-08-03 19:20 | W.PM.HP.N ---
Date of service: 08/03/22 Time of Service: 14:00 Assessment and Plan Assessment and plan (1) Fall: Status: Acute Assessment and plan: Multiple fall, calls 911 almost daily as reported by EMS. No injuries. Difficulty with staying independent and declining mobility. PT consult (2) Acute UTI: Status: Acute Assessment and plan: Positive urine; oral fosfomycin - gm neg rods (3) Acute dehydration: Status: Acute Assessment and plan: Oral fluids (4) Diabetes type 2, uncontrolled: Status: Chronic Assessment and plan: continue current diabetes management as controlled well here A1C 12.4 06/04 Qualifiers: Glycemic state: with hyperglycemia Qualified Code(s): E11.65 - Type 2 diabetes mellitus with hyperglycemia (5) Nicotine dependence: Status: Chronic Assessment and plan: NicoDerm patch Qualifiers: Nicotine product type: cigarettes Substance use status: uncomplicated Qualified Code(s): F17.210 - Nicotine dependence, cigarettes, uncomplicated (6) COPD, mild: Status: Chronic Assessment and plan: Continue her Symbicort; no acute exacerbation of her COPD. Continue nicotine replacement with transdermal nicotine. (7) Chronic kidney disease, stage III (moderate): Status: Chronic Assessment and plan: Monitor renal function avoid nephrotoxins. Qualifiers: Chronic kidney disease stage 3 subtype: unspecified whether 3a or 3b Qualified Code(s): N18.30 - Chronic kidney disease, stage 3 unspecified (8) Coronary artery disease involving cahuilla coronary artery of cahuilla heart: Status: Chronic Assessment and plan: Continue rosuvastatin (9) Hypertension: Status: Chronic Assessment and plan: blood pressure controlled Qualifiers: Hypertension type: essential hypertension Qualified Code(s): I10 - Essential (primary) hypertension (10) Hypothyroidism: Status: Chronic Assessment and plan: Continue current levothyroxine. (11) DVT prophylaxis: Status: Deleted Assessment and plan: enoxaparin daily (12) Discharge planning issues: Status: Deleted Assessment and plan: will discharge home +/- home health services - possibly short rehab stay - when medically ready discussed with Dr Mosley History of Present Illness History of Present Illness Chief Complaint: Multiple falls Narrative: 67-year-old female patient with past medical history of diabetes presented to the [facility] ED after multiple recent falls at home most recently from her wheelchair, slid off her chair onto the ground, denied loss of consciousness, no external signs of trauma, moving all extremities to command, hemodynamically stable afebrile, appeared frail and fatigued as well as dehydrated given dry oral mucosa and poor skin turgor.? Patient also endorsed urinary frequency.? Considered dehydration versus UTI versus electrolyte abnormality with a lower suspicion for ACS or intracranial hemorrhage, no external signs of thoracoabdominal trauma, no signs of spinal trauma.? Patient does have evidence of UTI.? Imaging unremarkable for traumatic injuries.? Labs consistent with likely mild dehydration.? Likely contributing to dehydration and mild delirium. She was started on ceftriaxone and given an IV fluid bolus. ? Patient feeling better after fluids and rest.Given multiple falls debility and UTI patient is placed on observation status on the medical floor.? She might very well need rehab for a short period of time. discussed with Dr Mosley Review of Systems Narrative: Very angry, swearing at nurses, stating no one is helping her and she wants to have some food. We did get her some food, assisted her with a shower, very dirty and dischevled. All systems reviewed & are unremarkable except as noted in HPI and below PFSH All Active Problems (Updated 08/03/22 @ 11:44 by Missael Josue MD) Fall (Acute) Acute UTI (Acute) Falls (Acute) Acute dehydration (Acute) Acute delirium (Acute) Eschar of toe (Acute ~05/2022) Cellulitis of toe of right foot (Acute ~05/2022) Nail dystrophy (Acute) Diabetic foot infection (Acute) Nail avulsion, toe (Acute) L great toe Urge incontinence (Chronic) Declines RX briefs Self-care deficit (Acute) Bedbound (Acute) gets up with WC to BR Recurrent falls (Chronic) Difficulty transferring from bed to wheelchair (Chronic) DME hospital bed has helped Difficulty transferring from toilet to wheelchair (Chronic) Steph investigating commode Wheelchair bound (Chronic) no falls since starting using WC permanent need severe diabetic nephropathy needs more adaptive equipment in the home Cognitive attention deficit (Chronic) needs multiple repetitions of information Diabetes type 2, uncontrolled (Chronic) though she has had education over the years, still seems not to understand carb counting ideally needs someone to educate son as he buys her food also needs hands-on teaching with nutrition labels, etc. 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) Goal A1c < 7.5% Schein, neuropathy; Charcot's foot 03/19/13 [employer] Spinal stenosis of lumbar region with neurogenic claudication (Chronic 12/08/13) 04/13/2013 MRI Lumbar Spine: Facet arthropathy, DJD, L4-5, L5-S1 central spinal and neural foraminal stenosis Neurosurgery referral, but not a surgical candidate [facility] chronic pain service Chronic Pain [facility] Pain Center consult 10/26/15 [facility] consult 03/04/17 (Sanket Sawant MD) Other and unspecified hyperlipidemia (Chronic 08/14/12) Esophageal reflux disease (Chronic 07/24/11) UPPER GI SERIES 11/14/2012, MOD HIATAL HERNIA SEVERE GERD Coronary artery disease involving cahuilla coronary artery of cahuilla heart (Chronic) INFERIOR [place] 1996, 100% RCA occlusion; large inf defect on perfusion scan, dr Fair Chronic kidney disease, stage III (moderate) (Chronic 08/14/12) Cortical atrophy R kidney on CT 07/2014; multiple cysts Cardiomyopathy (Chronic) Dr Fair, EF 45% Jun 2014 ECHO (h/o much worse) 10/2016 ECHO: EF 40-45% 10/2016 MPI: no acute, but persistent old infarct COPD, mild (Chronic 07/02/17) PFTs Abdominal aortic aneurysm (Chronic 11/27/12) Identified 10/31/12 CT abd-pelvis; 4cm; stable 4.1 cm 07/2014 CT, 4.3cm 11/2016, 5.5cm 03/04/17 ([facility]). not sure if it is worth following her AAA, as she is not surgical candidate defer to PCP Chronic back pain (Chronic) Lumbar spinal stenosis-->RX FENTANYL initiated inpt 12/2021; PCP rx'ing with [facility] under palliative conditions (pt cannot come in for OVs) Hypothyroidism (Chronic) Hypertension (Chronic) Marijuana dependence (Chronic) Daily use since 17yo-->helps with mood & pain Medical History Acute hyperglycemia Anaerobic bacteremia Arthropathy associated with neurological disorder (03/19/13) Dr. 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 Guerra DJD of right shoulder (01/01/13) 12/2012 x-ray severe DJD glenohumeral joint Dr. Guerra; not a surgical candidate for replacement DNI (do not intubate) DNR (do not resuscitate) Encounter for hospice care Episode of seizures in July 2012 Fall at home Goals of care, counseling/discussion DNR/DNI COLST done wants to stay home may need new agent if/when Steph moves out of state as planned Iron deficiency anemia Mass of both parotid glands Abnormal CT 08/2019 Mild pulmonary hypertension Nausea and vomiting (08/01/14) a. previous history of possible marijuana induced hyperemesis Osteoarthritis of left elbow Palliative care patient Perirectal abscess With associated hospitalization 2019 POLST (Physician Orders for Life-Sustaining Treatment) signed 06/01/20 Pulmonary embolism (~12/2021) Never started anticoagulation RLS (restless legs syndrome) Tinea corporis Surgical History Appendectomy Childhood surgery, no date given by pt.HE Hemiarthroplasty (06/13/15) Dr Charlie Gallardo shoulder History of carpal tunnel release of both wrists (~05/2012) Hx of umbilical hernia repair (09/06/15) Incarcerated umbilical hernia repair (09/06/15) Tonsillectomy childhood surgery, no date given by pt.HE Family History Mother , at 73 yo from dementia Dementia Diabetes Stroke Blind Father , MVA (truck) accident at 45yo No problems noted. Sister Age: 62 Thyroid cancer Brother , from complications of diabetes age 60 Diabetes Brother Diabetes Heart disease Colon cancer Ulcerative colitis Sister Obesity Prediabetes Arthritis Son Substance abuse attends [facility]; h/o heroin and other opioid addiction Other FH: mental illness Social History Smoking/Tobacco Use Status: Current every day Tobacco Type: cigarettes Tobacco: How many years used: 54 Quit status: not considering quitting Counseling given: counseling >3 minutes Smoking risk assessment performed?: Yes Alcohol Intake: former Drug use: Daily Substance use type: marijuana Counseling given: Yes Details: pt states she smokes marijuana on a daily basis x1 per day Adopted: No Caregiver/Support person: Yes Foster care: No Household members: children Housing: house Number of Children: 1 number of grandchildren: 0 Communication Needs: Corrective Lenses Education Level: high school Details: didn't finish sophomore year Do you need help understanding health information?: Always 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; 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 Pets and animals: Yes Current gender identity: female What is your relationship status?: How often do you talk on the phone with friends or family?: three or more times per week How often do you get together with friends or relatives?: twice per week Panel score (0-1 are the most socially isolated patients): 1 What type of physical activity do you participate in: none and wheelchair-bound Special eliana needs: No Seatbelt use: sometimes Working smoke detector in home: Yes Fire extinguisher in home: Yes Do you feel safe at home: Yes (Most of the time, yes I feel better if my son or somebody is there) Do you feel safe in your relationship?: Yes Additional Social history: Patient reports she lives with her son Meds Allergies and Home Medications Allergies Allergy/AdvReac Type Severity Reaction Status Date / Time bupropion HCl Allergy Severe seizures Verified 05/28/22 03:10 [From Wellbutrin] carvedilol [From Coreg] Allergy Mild Itching Verified 05/28/22 03:10 morphine AdvReac Unknown nausea Verified 05/28/22 03:10 Home Medications Medication Instructions Recorded Confirmed Type blood-glucose meter (OneTouch #1 ea 04/19/21 08/03/22 Rx Ultra2 Meter kit) Air mattress #1 ea 06/15/21 08/03/22 Rx Wheelchair (manual) #1 ea 03/01/22 08/03/22 Rx metformin 500 mg tablet,extended 500 mg PO DAILY #90 tabs 03/07/22 08/03/22 Rx release 24 hr naproxen 375 mg tablet 375 mg PO .daily in AM PRN pain 03/09/22 08/03/22 Rx #90 tabs gabapentin 300 mg capsule 300 mg PO BID #180 caps 04/09/22 08/03/22 Rx metoprolol succinate 25 mg 25 mg PO DAILY #90 tabs 05/30/22 08/03/22 Rx tablet,extended release 24 hr pantoprazole 40 mg tablet,delayed 40 mg PO DAILY #90 tab-caps 05/30/22 08/03/22 Rx release rosuvastatin 10 mg tablet 10 mg PO DAILY #90 tabs 05/30/22 08/03/22 Rx clindamycin HCl 300 mg capsule 600 mg PO TID 05/31/22 08/03/22 History levothyroxine 50 mcg tablet 50 mcg PO DAILY 06/01/22 08/03/22 History nystatin 100,000 unit/gram topical 1 applic topical BID #0 grams 06/05/22 08/03/22 Rx powder albuterol sulfate 90 mcg/actuation 1 - 2 puff inhalation Q4H PRN #18 06/06/22 08/03/22 Rx aerosol inhaler (ProAir HFA) grams budesonide-formoterol HFA 80 2 puff inhalation BID ##3 06/06/22 08/03/22 Rx mcg-4.5 mcg/actuation aerosol inhaler (Symbicort) acetaminophen 650 mg 1,300 mg PO Q12H #360 tabs 06/29/22 08/03/22 Rx tablet,extended release (Tylenol Arthritis Pain) lancets #100 ea 06/29/22 08/03/22 Rx mupirocin 2 % topical ointment 1 applic topical BID-TID #15 grams 06/29/22 08/03/22 Rx semaglutide 3 mg tablet (Rybelsus) 3 mg PO DAILY #30 tabs 06/29/22 08/03/22 Rx blood sugar diagnostic (Blood #100 ea 07/02/22 08/03/22 Rx Glucose Test strips) insulin degludec 200 unit/mL (3 50 unit (0.25 mL) subcut DAILY #12 07/20/22 08/03/22 Rx mL) subcutaneous pen (Tresiba mL FlexTouch U-200 insulin) blood sugar diagnostic #100 ea 07/23/22 08/03/22 Rx pen needle, diabetic, safety 30 #100 ea 07/28/22 08/03/22 Rx gauge x 1/3 (Novofine Autocover) Exam Narrative Exam Narrative: Physical Examination General: alert, awake, cooperative, appears fatigued HEENT: normocephalic, atraumatic; PERRL, EOM intact, conjunctiva normal; no nasal discharge; drying of oral mucosa Neck: supple, trachea midline; full ROM Chest: normal to inspection Respiratory: normal respiratory effort, speaking in full sentences, clear to auscultation, no wheezing, rales or rhonchi Cardiac: regular rate, regular rhythm, S1S2 intact, no murmurs rubs or gallops GI: abdomen soft, non-tender, non-distended; no palpable mass or hepatosplenomegaly Back: No midline spinal tenderness step-off or deformity Skin: Chronic appearing venous stasis changes of lower extremities; poor skin turgor Neuro: AAOx3, normal speech, moving all extremities Extremities: Chronic appearing venous stasis changes of lower extremities Psych: Appropriate mood and affect Results Labs 08/03/22 08:00 08/03/22 08:00 Labs: Laboratory Results - last 24 hr 08/03/22 08/03/22 08/03/22 08:00 08:00 10:40 WBC 6.36 RBC 4.37 Hgb 10.8 L Hct 35.0 L MCV 80 MCH 24.7 L MCHC 30.9 L RDW 15.7 H Plt Count 187 MPV 11.3 H Immature Gran % 0.5 Neutrophils % 75.0 Lymphocytes % 15.3 Monocytes % 7.2 Eosinophils % 1.4 Basophils % 0.6 Nucleated RBC % 0.0 Absolute Neutrophils 4.77 Absolute Lymphocytes 0.97 L Absolute Monocytes 0.46 Absolute Eosinophils 0.09 Absolute Basophils 0.04 Sodium 134 L Potassium 4.6 Chloride 104 Carbon Dioxide 25.5 Anion Gap 4.5 BUN 14 Creatinine 0.8 Est GFR (CKD-EPI 2020) 80.21 Glucose 287 H Calcium 10.0 Total Bilirubin 0.4 AST 25 ALT 22 Alkaline Phosphatase 94 Total Protein 6.5 Albumin 2.9 L Urine Color Yellow Urine Clarity Sl Cloudy Urine pH 6.0 Ur Specific [place] 1.025 Urine Protein 100 H Urine Ketones Negative Urine Blood Trace-lysed H Urine Nitrite Positive H Urine Bilirubin Negative Urine Urobilinogen 0.2 Ur Leukocyte Esterase Negative Urine RBC 0-2 Urine WBC 3-5 Ur Epithelial Cells Rare Urine Crystals Negative Urine Bacteria Many Urine Casts Negative Urine Mucus Negative Ur Culture Indicated? Yes Urine Glucose >=1000 H Ethyl Alcohol < 3.0 COVID-19 Source SARS-CoV-2 (PCR) 08/03/22 11:50 WBC RBC Hgb Hct MCV MCH MCHC RDW Plt Count MPV Immature Gran % Neutrophils % Lymphocytes % Monocytes % Eosinophils % Basophils % Nucleated RBC % Absolute Neutrophils Absolute Lymphocytes Absolute Monocytes Absolute Eosinophils Absolute Basophils Sodium Potassium Chloride Carbon Dioxide Anion Gap BUN Creatinine Est GFR (CKD-EPI 2020) Glucose Calcium Total Bilirubin AST ALT Alkaline Phosphatase Total Protein Albumin Urine Color Urine Clarity Urine pH Ur Specific [place] Urine Protein Urine Ketones Urine Blood Urine Nitrite Urine Bilirubin Urine Urobilinogen Ur Leukocyte Esterase Urine RBC Urine WBC Ur Epithelial Cells Urine Crystals Urine Bacteria Urine Casts Urine Mucus Ur Culture Indicated? Urine Glucose Ethyl Alcohol COVID-19 Source Nasal/Nares SARS-CoV-2 (PCR) Negative Last Vital Signs Temp 37.3 C 08/03/22 15:24 Pulse 76 08/03/22 15:24 Resp 18 08/03/22 15:24 BP 134/63 08/03/22 15:24 Pulse Ox 94 08/03/22 15:24 Time Spent Time spent with Patient: 55-74 minutes Time was spent: preparing to see the patient(eg.review tests), ordering medications,tests, procedures, referring, communicating with other health child care associate teacher, indepentently interpreting results, counseling the patient and care coordination
[2022-08-03] MEDS: Nystatin POWDER 15 GM JAR TP (19:38)
[2022-08-03] MEDS: Gabapentin 300 MG CAP PO (19:38)
[2022-08-03] MEDS: Acetaminophen 500 MG TAB 1000 MG PO (19:38)
[2022-08-03] MEDS: Phenazopyridine 100 MG TAB PO (19:59)
[2022-08-03] MEDS: Budesonide/Formoterol 80/4.5 6.9 GM 60 PUFF INH IH (20:20)
[2022-08-03] MEDS: Melatonin 3 MG TAB PO (21:23)
[2022-08-03] MEDS: Zolpidem 5 MG TAB PO ×2 (21:23→23:57)
[2022-08-03 22:35] LABS: Glucose 323 mg/dL (74-106)
[2022-08-03] MEDS: Normal Saline 1,000 ML 100 ML IV (23:58)
[2022-08-04 03:10] VITALS: BP 127/68; PULSE 96; RESP 17; TEMP 36.4; O2SAT 96
[2022-08-04] MEDS: Ondansetron 4 MG/2 ML VIAL IVP (05:11)
[2022-08-04] MEDS: Levothyroxine 50 MCG TAB PO (05:11)
[2022-08-04 06:19] VITALS: BP 131/59; PULSE 75; RESP 14; TEMP 36.6; O2SAT 94
[2022-08-04 06:31] LABS: Abs Immature Grans 0.04 10^3/uL (0.0-0.06); Absolute Basophil Count 0.03 10^3/uL (0.0-0.2); Absolute Eosinophil Count 0.16 10^3/uL (0.0-0.7); Absolute Lymphocyte Count 1.18 10^3/uL (1.2-3.4); Absolute Monocyte Count 0.41 10^3/uL (0.1-0.8); Absolute Neutrophil Count 3.31 10^3/uL (1.2-6.7); Basophils % 0.6; Eosinophils % 3.1; HCT 33.5 % (36.0-46.0); HGB 10.1 g/dL (11.2-15.7); Immature Grans % 0.8; MCH 24.3 pg (27.0-33.0); MCHC 30.1 % (32.0-36.0); MCV 81 fL (80-95); MPV 10.8 fL (8.0-11.0); Neutrophils % 64.5; Platelet Count 187 10^3/uL (130-400); RBC 4.16 10^6/uL (3.93-5.22); RDW 15.8 % (11.7-14.6); WBC 5.13 10^3/uL (4.4-10.8)
[2022-08-04 06:48] LABS: Anion Gap 6.2 mmol/L (3-11); BUN 14 mg/dL (7-18); CO2 24.8 mmol/L (21.0-32.0); CREATININE 0.7 mg/dL (0.55-1.02); Calcium 9.5 mg/dL (8.5-10.1); Chloride 108 mmol/L (98-107); Estimated GFR 94.15 (mL/min/1.73m2); Glucose 267 mg/dL (74-106); Magnesium 1.4 mg/dL (1.8-2.4); Potassium 4.2 mmol/L (3.5-5.1); Sodium 139 mmol/L (136-145)
[2022-08-04] MEDS: Pantoprazole 40 MG TABCR PO (07:16)
[2022-08-04] MEDS: Insulin Aspart 300 UNITS/3 ML PEN SC ×2 (08:11→11:34)
[2022-08-04] MEDS: Metoprolol CR 25 MG TABCR PO (08:15)
[2022-08-04] MEDS: Rosuvastatin 10 MG TAB PO (08:16)
[2022-08-04] MEDS: Gabapentin 300 MG CAP PO (08:16)
[2022-08-04] MEDS: metFORMIN C.R. 500 MG TABCR PO (08:16)
[2022-08-04] MEDS: Acetaminophen 500 MG TAB 1000 MG PO (08:16)
[2022-08-04] MEDS: Budesonide/Formoterol 80/4.5 6.9 GM 60 PUFF INH IH (08:34)
[2022-08-04] MEDS: Nystatin POWDER 15 GM JAR TP (09:16)
[2022-08-04] MEDS: MAGNESIUM SULFATE 2 GM/50 ML BAG IVPB (09:32)
[2022-08-04] MEDS: Phenazopyridine 100 MG TAB PO ×2 (09:36→15:28)
[2022-08-04] MEDS: Nicotine 21 MG/24 HR PATCH TD (10:52)
[2022-08-04 11:30] VITALS: BP 143/74; PULSE 68; RESP 19; TEMP 36.3; O2SAT 94
--- NOTE | 2022-08-04 11:56 | PT.INTREAT ---
PT Notes Visit Reasons: UTI,Delirium,Dehydration,Falls Date: 08/04/2022 PRECAUTIONS: Activity as tolerated, fall SUBJECTIVE: pt in bed when approached for therapy this morning, pt refused multiple times reporting she feels very weak, she hopes she is at home, she is so tired she wishes that she would . nurse informed of pt sentiments. pt agreed to trying to transfer from supine to EOB after a few minutes conversing with this MAJOR ASSEMBLY INSPECTOR. OBJECTIVE:? Pain: generalized ? BED MOBILITY/TRANSFERS? Supine-sit: attempt not successful due to pt reporting too much pain Stand-sit: attempt not successful ? Assessment: Multiple attempts at getting pt to move in bed was unsuccessful. pt demonstrating strong failure to thrive. pt repositioned in bed for improved alignment, comfort and safety requiring max A.?nurse aware of pt verbal comment of wanting to .? PLAN: Continue with global strengthening and general conditioning for improved mobility and activity tolerance. TREATMENT CODE/TIME: 15 minutes; [id number] (9:05-9:20am)
--- NOTE | 2022-08-04 12:22 | PDOC.CMIN ---
- If Service Date Differs Date of service: 08/04/22 Time of Service: 12:22 Care Management Initial Assess REASON FOR HOSPITALIZATION:: UTI, delirium, dehydration, falls PAST MEDICAL HISTORY/PAST SURGICAL HISTORY:: All Active Problems. Fall (Acute). Acute UTI (Acute). Falls (Acute). Acute dehydration (Acute). Acute delirium (Acute). Eschar of toe (Acute ~05/2022). Cellulitis of toe of right foot (Acute ~05/2022). Nail dystrophy (Acute). Diabetic foot infection (Acute). Nail avulsion, toe (Acute). L great toe. Urge incontinence (Chronic). Declines RX briefs. Self-care deficit (Acute). Bedbound (Acute). gets up with WC to BR. Recurrent falls (Chronic). Difficulty transferring from bed to wheelchair (Chronic). DME hospital bed has helped. Difficulty transferring from toilet to wheelchair (Chronic). Steph investigating commode. Wheelchair bound (Chronic). no falls since starting using WC. permanent need. severe diabetic nephropathy. needs more adaptive equipment in the home. Cognitive attention deficit (Chronic). needs multiple repetitions of information. Diabetes type 2, uncontrolled (Chronic). though she has had education over the years, still seems not to understand carb counting. ideally needs someone to educate son as he buys her food. also needs hands-on teaching with nutrition labels, etc. Obesity (BMI 30-39.9) (Chronic). Noncompliance with medication regimen (Chronic). Nicotine dependence (Chronic). 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 Neuro work-up . 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 Ambulates with cane when out; walker at home. 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 Goal A1c < 7.5%. Schein, neuropathy; Charcot's foot 03/19/13. [employer]. Spinal stenosis of lumbar region with neurogenic claudication (Chronic 12/08/13). 04/13/2013 MRI Lumbar Spine: Facet arthropathy, DJD, L4-5, L5-S1 central spinal and neural foraminal stenosis. Neurosurgery referral, but not a surgical candidate. [facility] chronic pain service. Chronic Pain. [facility] Pain Center consult 10/26/15. [facility] [place] 03/04/17 (Sanket Sawant MD). Other and unspecified hyperlipidemia (Chronic 08/14/12). Esophageal reflux disease (Chronic 07/24/11). UPPER GI SERIES 11/14/2012, MOD HIATAL HERNIA SEVERE GERD. Coronary artery disease involving [place] coronary artery of [place] heart (Chronic). INFERIOR [place] 1996, 100% RCA occlusion; large inf defect on perfusion scan, dr Fair. Chronic kidney disease, stage III (moderate) (Chronic 08/14/12). Cortical atrophy R kidney on CT 07/2014; multiple cysts. Cardiomyopathy (Chronic). Dr Fair, EF 45% Jun 2014 ECHO (h/o much worse). 10/2016 ECHO: EF 40-45%. 10/2016 MPI: no acute, but persistent old infarct. COPD, mild (Chronic 07/02/17). PFTs. Abdominal aortic aneurysm (Chronic 11/27/12). Identified 10/31/12 CT abd-pelvis; 4cm; stable 4.1 cm 07/2014 CT, 4.3cm 11/2016, 5.5cm 03/04/17 [place] not sure if it is worth following her AAA, as she is not surgical candidate. defer to PCP. Chronic back pain (Chronic). Lumbar spinal stenosis-->RX FENTANYL initiated inpt 12/2021; PCP rx'ing with [facility] under palliative conditions (pt cannot come in for OVs). Hypothyroidism (Chronic). Hypertension (Chronic). Marijuana dependence (Chronic). Daily use since 17yo-->helps with mood & pain. Medical History. Acute hyperglycemia. Anaerobic bacteremia. 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 Dr. Ward. Bacteremia due to Gram-positive bacteria. Calculus of kidney and ureter. Carpal tunnel syndrome (08/14/12). resolved s/p b/l release. Cellulitis of foot. Depressive disorder (08/14/12). DJD of left shoulder (01/01/13). Dr. Guerra. DJD of right shoulder (01/01/13). 12/2012 x-ray severe DJD glenohumeral joint. Dr. Guerra; not a surgical candidate for replacement. DNI (do not intubate). DNR (do not resuscitate). Encounter for hospice care. Episode of seizures in July 2012. Fall at home. Goals of care, counseling/discussion. DNR/DNI. COLST done. wants to stay home. may need new agent if/when Steph moves out of state as planned. Iron deficiency anemia. Mass of both parotid glands. Abnormal CT 08/2019. Mild pulmonary hypertension. Nausea and vomiting (08/01/14). a. previous history of possible marijuana induced hyperemesis. Osteoarthritis of left elbow. Palliative care patient. Perirectal abscess. With associated hospitalization 2019. POLST (Physician Orders for Life-Sustaining Treatment). signed 06/01/20. Pulmonary embolism (~12/2021). Never started anticoagulation. RLS (restless legs syndrome). Tinea corporis. Surgical History. Appendectomy. Childhood surgery, no date given by pt.HE. Hemiarthroplasty (06/13/15). Dr Guerra. R shoulder. History of carpal tunnel release of both wrists (~05/2012). Hx of umbilical hernia repair (09/06/15). Incarcerated umbilical hernia repair (09/06/15). Tonsillectomy. childhood surgery, no date given by pt.HE PREVIOUS FUNCTIONAL STATUS/SOCIAL/FAMILY SUPPORTS:: Carmel lives in [place] with her adult son, Ethan. She uses a wheelchair to get around her home and requires assistance with her ADLs. Carmel has a [facility] general assistant, a home health nurse, and a bilingual patient support caseworker (Clair Stiles) through [facility]. CURRENT FUNCTIONAL STATUS:: Carmel was lying in bed when CM met with her. She stated that she is feeling ok today. She discussed her home life, and her routine at home. She stated that her son works long hours, and that she has PT as well as personal care from [facility], through her [facility] highest needs benefit. CM discussed the option to go to a SNF, and she was not agreeable to CM sending referrals. Per provider, she is medically cleared and at her baseline, therefore she is being discharged home. CM met with Carmel's brother Gaudencio, her sister and sister in law, and discussed the patient's right to choose, although they don't agree with her choices. They expressed understanding that Carmel is medically cleared, and will discharge home with a resumption of her care. Carmel was offered a shower before going home, which she refused. CM will continue to follow. ADVANCE DIRECTIVES:: COLST on file, sister Steph Gonzales is appointed as Healthcare Agent. Has patient been provided with info about the portal/API?: Yes Did the patient sign up for the portal?: Yes (active) CODE STATUS:: DNR/DNI INSURANCE COVERAGE / FINANCIAL ISSUES:: MCR/SAMY CURRENT HOME/COMMUNITY SERVICES/EQUIPMENT:: [employer] general assistant, home health RN and bilingual patient support caseworker (Clair Stiles). She has a wheelchair, ramp, commode, grab bars and tub seat. She uses [facility] for transportation needs. PRIMARY CARE PHYSICIAN:: Mai Castelan POTENTIAL DISCHARGE NEEDS:: Follow up appointments with PCP and podiatry and potential SNF placement. PATIENT/FAMILY EDUCATION NEEDS:: Review of discharge instructions and discuss Ask Me Three. ANTICIPATED BARRIERS TO DISCHARGE:: Carmel has a care team in the community who feel that she would benefit from SNF placement. Historically, she has not been agreeable to SNF. CM will review discharge options. TRANSPORTATION:: To be determined by disposition. PLAN:: Carmel will likely return home with a resumption of HH supports vs SNF placement, if agreeable. Her transportation will be determined by disposition and mobility at time of discharge. She will follow up with her PCP and discharge plan of care. CM will continue to follow.
[2022-08-04] MEDS: Enoxaparin 40 MG/0.4 ML SYR SC (15:27)
--- NOTE | 2022-08-04 15:50 | PDOC.CMDIS ---
- If Service Date Differs Date of service: 08/04/22 Time of Service: 15:50 LACE Index Scoring Tool - Questions: Length of Stay (in days): 1 Acuity (Admit via E.D.?): Yes Comorbidities: Diabetes w/o Complication, Chronic Pulmonary Disease, Liver or Renal Disease E.D. Visits: 13 - Answers: Total Score: 13 Risk of Readmission: High Risk Care Management Discharge Reason for Hospitalization: UTI, delirium, dehydration, falls Discharge Plan: Carmel returned home today with a resumption of HH PT, and the addition of HH RN for catheter care and wound care. She also has personal care through [employer], 3x/week for 2-3 hours each time, per pt. CM contacted HH to inform them of her discharge. CM offered to send referrals to SNF for her to potentially go from the community, but she declined, stating she will not go anywhere, except home. CM coordinated transport home via [facility] [employer] w/c van. She will follow up with her PCP and discharge plan of care. Patient/Family Education Needs: Review discharge instructions and limitations, discussion of self care needs including ask me three, and goals of care. Services Needed at Discharge: Home Health Care Services (resume HH PT, add RN. resume [facility] personal care.), Transportation ([employer] w/c van)
--- NOTE | 2022-08-04 18:46 | IN_ITS ---
Date of service: 08/03/22 Time of Service: 16:22 PT Notes Visit Reasons: UTI,Delirium,Dehydration,Falls Physical Therapy Inpatient Initial Evaluation Dates: 08/03/2022 Referring Doctor: Nicole Graham NP PT Orders: PT CONSULT: Eval/treat Precautions: Fall. Standard.? Activity as tolerated. Wheelchair-bound. Patient Profile/Admitting Diagnosis: Lisa is a 67-year-old female with spinocerebellar ataxia, chronic back pain, type 2 diabetes mellitus, cardiomyopathy, and COPD who presented to the ED on 08/03/2022 due to multiple recent falls. She is admitted with diagnoses of acute UTI, repeated falls, type 2 diabetes mellitus, nicotine dependence, chronic kidney disease stage III, hypothyroidism, and hypertension. PMHX: All Active Problems?(Updated 08/03/22 @ 11:44 by Missael Josue MD) Fall (Acute) Acute UTI (Acute) Falls (Acute) Acute dehydration (Acute) Acute delirium (Acute) Eschar of toe (Acute ~05/2022) Cellulitis of toe of right foot (Acute ~05/2022) Nail dystrophy (Acute) Diabetic foot infection (Acute) Nail avulsion, toe (Acute) L great toeUrge incontinence (Chronic) Declines RX briefsSelf-care deficit (Acute) Bedbound (Acute) gets up with WC to BRRecurrent falls (Chronic) Difficulty transferring from bed to wheelchair (Chronic) DME hospital bed has helped Difficulty transferring from toilet to wheelchair (Chronic) Steph investigating commode Wheelchair bound (Chronic) no falls since starting using WC permanent need severe diabetic nephropathy needs more adaptive equipment in the home Cognitive attention deficit (Chronic) needs multiple repetitions of information Diabetes type 2, uncontrolled (Chronic) though she has had education over the years, still seems not to understand carb counting ideally needs someone to educate son as he buys her food also needs hands-on teaching with nutrition labels, etc. 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 neuropathy; Charcot's foot 03/19/13 [employer] Spinal stenosis of lumbar region with neurogenic claudication (Chronic 12/08/13) 04/13/2013 MRI Lumbar Spine: Facet arthropathy, DJD, L4-5, L5-S1 central spinal and neural foraminal stenosis Neurosurgery referral, but not a surgical candidate [facility] chronic pain service Chronic Pain [facility] Pain Center consult 10/26/15 [facility] consult 03/04/17 (Sanket Sawant MD) Other and unspecified hyperlipidemia (Chronic 08/14/12) Esophageal reflux disease (Chronic 07/24/11) UPPER GI SERIES 11/14/2012, MOD HIATAL HERNIA ? SEVERE GERD Coronary artery disease involving [place] coronary artery of [place] heart (Chronic) INFERIOR [place] 1996, 100% RCA occlusion; large inf defect on perfusion scan, dr Fair Chronic kidney disease, stage III (moderate) (Chronic 08/14/12) Cortical atrophy R kidney on CT 07/2014; multiple cysts Cardiomyopathy (Chronic) Dr Fair, EF 45% Jun 2014 ECHO (h/o much worse) 10/2016 ECHO: EF 40-45% 10/2016 MPI: no acute, but persistent old infarct COPD, mild (Chronic 07/02/17) PFTs Abdominal aortic aneurysm (Chronic 11/27/12) Identified 10/31/12 CT abd-pelvis; 4cm; stable 4.1 cm 07/2014 CT, 4.3cm 11/2016, 5.5cm 03/04/17 ([facility] not sure if it is worth following her AAA, as she is not surgical candidate defer to PCP Chronic back pain (Chronic) Lumbar spinal stenosis-->RX FENTANYL initiated inpt 12/2021; PCP rx'ing with [facility] under palliative conditions (pt cannot come in for OVs) Hypothyroidism (Chronic) Hypertension (Chronic) Marijuana dependence (Chronic) Daily use since 17yo-->helps with mood & pain Medical History? 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 Guerra DJD of right shoulder (01/01/13) 12/2012 x-ray severe DJD glenohumeral joint Dr. Guerra; not a surgical candidate for replacement DNI (do not intubate) DNR (do not resuscitate) Encounter for hospice care Episode of seizures in July 2012 Fall at home Goals of care, counseling/discussion DNR/DNI COLST done wants to stay home may need new agent if/when Steph moves out of state as planned Iron deficiency anemia Mass of both parotid glands Abnormal CT 08/2019 Mild pulmonary hypertension Nausea and vomiting (08/01/14) a. previous history of possible marijuana induced hyperemesis Osteoarthritis of left elbow Palliative care patient Perirectal abscess With associated hospitalization 2019 POLST (Physician Orders for Life-Sustaining Treatment) signed 06/01/20Pulmonary embolism (~12/2021) Never started anticoagulationRLS (restless legs syndrome) Tinea corporis Surgical History? Appendectomy Childhood surgery, no date given by pt.HE Hemiarthroplasty (06/13/15) Dr Charlie Gallardo shoulderHistory of carpal tunnel release of both wrists (~05/2012) Hx of umbilical hernia repair (09/06/15) Incarcerated umbilical hernia repair (09/06/15) Tonsillectomy childhood surgery, no date given by pt.HE Social History/Home Situation: Son lives with patient in a private home but son.? States that son does everything for her but points out that the son works during the day. She states she has a walk-in shower and that she has a lady who comes in 2 hours everyday to help out with chores and meals. Wheelchair-bound. Equipment Owned/DME: Front-wheeled walker, single-point cane, wheelchair Subjective: Reports 8/10 pain in back and R hip area. Did not want to sit up due to pain level. Nurse Ana made aware. Explained to patient that going home may not be safe as she cannot even sit up and will need two people for transfers. Patient states that she does not care what will happen to her ans is still insistent about going home. CM and hospitalist made aware of patient's sentiments. Objective: General Observation: Obese.? Appears very anxious. Wants to go home. Unkempt. Mental Status: Alert and oriented as to person and place Pain: 8/10 in back and R hip/pelvis ROM: Right Upper Extremity: ? Shoulder Flexion allows up to 80 degrees. Shoulder abduction allows up to 90 degree. Elbow flexion WFL. Wrist flexion WFL. Opening and closing of hand WFL. Left Upper Extremity:? Shoulder Flexion allows up to 100 degrees. Shoulder abduction allows up to 100 degrees. Elbow flexion WFL. Wrist flexion WFL. Opening and closing of hand WFL. Right Lower Extremity: Hip flexion 20 degrees past 90 while seated on chair. Hip abduction WFL. Knee flexion WFL.? Knee extension -20 degrees.? Ankle dorsiflexi on WFL. Ankle plantarflexion WFL. Left Lower Extremity: Hip flexion 20 degrees past 90 while seated on chair. Hip abduction WFL. Knee flexion WFL. Knee extension -20 degrees. Ankle dorsiflexion WFL. Ankle plantarflexion WFL. Strength: Right Upper Extremity: Shoulder flexors 3-/5. Shoulder abductors 3-/5. Elbow flexors 4-/5. Elbow extensors 4-/5. Anesthesia Associate strong. Left Upper Extremity: Shoulder flexors 3-/5. Shoulder abductors 3-/5. Elbow flexors 4-/5. Elbow extensors 4-/5. Anesthesia Associate strong. Right Lower Extremity: Hip flexors 3-/5. Hip abductors 3+/5. Knee flexors 3+/5. Knee extensors 3-/5. Ankle dorsiflexors 3-/5. Ankle plantarflexors 3-/5. Left Lower Extremity: Hip flexors 3-/5. Hip abductors 3+/5. Knee flexors 3+/5. Knee extensors 3-/5. Ankle dorsiflexors 3-/5. Ankle plantarflexors 3-/5. Bed Mobility/Transfers: Unable due to pain and lack of motivation. Patient refused to get out of bed. Gait: Unable due to pain and lack of motivation. Patient refused to get out of bed. Balance: Static Sitting: Unable to test Dynamic Sitting: Unable to test Static Standing: Unable to test Dynamic Standing: Unable to test Assessment: Pain limits ability to move. Lacks motivation. Prognosis is poor due to cognitive status, lack of motivation, and symptoms of anxiety as well as depression. Unsure of how far of a progression patient can achieved. Will continue to attempt to engage patient in the coming sessions. Patient presents with clinical signs and symptoms consistent with current/admitting diagnoses that have resulted to mobility limitations, gait instability, generalized weakness, and impairment of motor control as demonstrated by the following impairment level findings: 1.? Decreased strength to B UE/LE major muscle groups (chronic) 2.? Impaired activity tolerance 3.? Generalized pain at 8/10 4. Symptoms of anxiety and depression 5. Impaired cognition Impairments are contributing to the following functional limitations: 1.? Total dependence in bed mobility skills 2.? Total dependence in transfers 3.? Wheelchair-bound 4.? Increased fall risk 6.? Increased risk for skin breakdown Goals: Goals X1 week 1. Supine-Sit minimal assist 2. Sit-Supine minimal assist 3. Sit-Stand minimal assist 4. Stand-Sit minimal assist 5. Bed-Chair minimal assist 6. Chair-Bed minimal assist 7. Fair static and dynamic standing balance/tolerance DISCHARGE RECOMMENDATIONS: Patient will benefit from [facility] for continued skilled physical therapy services in order to progress mobility level, strength, and balance versus LTC placement. TREATMENT CODE/TIME: [id number] x 29 minutes beginning at 16:22 PM. Thank you very much for this referral. Alison Onofre PT, DPT, CLT [facility] [place], [place]
--- NOTE | 2022-08-05 16:27 | DSE_ITS ---
Date of service: 08/04/22 Time of Service: 16:28 DS: Diagnosis Discharge Diagnosis (1) Fall: Status: Deleted (2) Acute UTI: Status: Acute (3) Acute dehydration: Status: Acute (4) Diabetes type 2, uncontrolled: Status: Chronic (5) Nicotine dependence: Status: Chronic (6) COPD, mild: Status: Chronic (7) Chronic kidney disease, stage III (moderate): Status: Chronic (8) Coronary artery disease involving cahto coronary artery of cahto heart: Status: Chronic (9) Hypertension: Status: Chronic (10) Hypothyroidism: Status: Chronic (11) DVT prophylaxis: Status: Deleted (12) Discharge planning issues: Status: Deleted Discharge Plan Disposition Patient Disposition: Home W/Home Health Services Condition: Fair Discharge Details Reason For Visit: UTI,Delirium,Dehydration,Falls Admit Date/Time: 08/03/22 12:45 Admit Provider: Missael Mosley Attending Provider: Missael Mosley Primary Care Provider: Mai Castelan Hospital Course Hospital Course: 67-year-old female patient with past medical history of diabetes presented to the [facility] ED 08/04/2022 after multiple recent falls at home, most recently from her wheelchair, she reportedly slid off her chair onto the ground, denied loss of consciousness, no external signs of trauma, moved all extremities to command, hemodynamically stable, afebrile, appeared frail and fatigued as well as dehydrated given dry oral mucosa and poor skin turgor.? Patient also endorsed urinary frequency.? Considered dehydration versus UTI versus electrolyte abnormality with a lower suspicion for ACS or intracranial hemorrhage, no external signs of thoracoabdominal trauma, no signs of spinal tra ken.? Patient did have evidence of UTI.? Imaging unremarkable for traumatic injuries.? Labs consistent with likely mild dehydration.? Likely contributing to dehydration and mild delirium. She was started on ceftriaxone and given an IV fluid bolus. ? Patient feeling better after fluids and rest. Given multiple falls, debility and UTI patient was placed on observation status on the medical floor, with consideration of possible referral for short stay rehab.? Her urine culture grew out E coli; she was given fosfomycin for UTI and for buring, phenazopyridine. She received IV fluid and was taking oral food and liquids without issue.? Recommended SNF for short term rehab, patient viamently refused.? Recommended she consider assisted living, she told me to ?go to hel?. She had no fever, vital signs were stable. She lives alone and family is unable or unwilling to assist her.? She calls EMS daily.? She is seen quite frequently in the ED.? She yells at the nurses and refuses some of her medications and gives nursing a hard time when giving her the medications.? Suspect she is non compliant with her meds at home, nursing will be helpful to assess her, provide her education related to medications, and ascertain what we as a community do to help her stay out of the hospital.? She was advised to return to the ED as needed.? She was discharged to home with PT resumed and nursing requested. Discussed with Dr Mosley. Home Meds and New Rx's Prescriptions: Continued gabapentin 300 mg capsule 300 mg PO BID Qty: 180 3RF Rx Instructions: Dose increase 03/01/22 for chronic lumbar spine pain/spinal stenosis (DME) lancets Misc See Rx Instructions .MEDSUPPLY Qty: 100 3RF Rx Instructions: As directed to check blood glucose daily. On insulin. Dispense covered brand. mupirocin 2 % ointment 1 applic topical BID-TID Qty: 15 0RF Rx Instructions: May substitute with cream if less expensive; apply thin layer to swollen & red finger until resolved Rybelsus 3 mg tablet 3 mg PO DAILY Qty: 30 0RF Rx Instructions: Uncontrolled diabetes (DME) Blood Glucose Test Strip See Rx Instructions .MEDSUPPLY Qty: 100 3RF Rx Instructions: As directed to check blood glucose daily. On insulin. Dispense covered brand. insulin degludec [Tresiba FlexTouch U-200] 200 unit/mL (3 mL) insulin pen 50 unit subcut DAILY MDD 80 units Qty: 12 11RF Rx Instructions: Uncontrolled T2DM (DME) Air mattress See Rx Instructions .Route .MEDSUPPLY Qty: 1 0RF Hold Instructions: Home Medication placed on hold at Doctor's office Rx Instructions: As directed (DME) Wheelchair (manual) regular See Rx Instructions .Route .MEDSUPPLY Qty: 1 0RF Rx Instructions: As directed; currently has Tracer EX2 model--please replace with similar; thank you. 03/01/22. (DME) blood-glucose meter [OneTouch Ultra2 Meter] Kit See Rx Instructions .ROUTE .MEDSUPPLY Qty: 1 0RF Rx Instructions: to check BS qid for DM E11.9 management to keep A1c under 8 metformin 500 mg tablet extended release 24 hr 500 mg PO DAILY Qty: 90 3RF Rx Instructions: Diabetes--take with food naproxen 375 mg tablet 375 mg PO .daily in AM PRN (Reason: pain) Qty: 90 0RF Rx Instructions: Chronic pain rosuvastatin 10 mg tablet 10 mg PO DAILY Qty: 90 3RF pantoprazole 40 mg tablet,delayed release (DR/EC) 40 mg PO DAILY Qty: 90 3RF metoprolol succinate 25 mg tablet extended release 24 hr 25 mg PO DAILY Qty: 90 3RF albuterol sulfate [ProAir HFA] 90 mcg/actuation HFA aerosol inhaler 1 - 2 puff Inhalation Q4H PRN Qty: 18 3RF budesonide-formoterol [Symbicort] 80-4.5 mcg/actuation HFA aerosol inhaler 2 puff Inhalation BID Qty: 3 3RF Hold Instructions: Home Medication placed on hold at Doctor's office Patient Comments: 04/01/17 Patient unsure of last dose. Maybe last Thur, but patient is noncompliant with medications CDG acetaminophen [Tylenol Arthritis Pain] 650 mg tablet extended release 1,300 mg PO Q12H Qty: 360 3RF Rx Instructions: Chronic pain--do not exceed 4G in 24 hours tylenol (DME) blood sugar diagnostic Strip See Dose Instructions .ROUTE .MEDSUPPLY Qty: 100 3RF Dose Instruction: As directed Rx Instructions: One Touch Ultra,E 11.40 tests daily on insulin (DME) Novofine Autocover 30 gauge x 1/3 needle See Rx Instructions .ROUTE .MEDSUPPLY Qty: 100 3RF Rx Instructions: For DM E11.40 to maintain A1C <8, monitoring daily levothyroxine 50 mcg tablet 50 mcg PO DAILY nystatin 100,000 unit/gram Powder 1 applic topical BID Qty: 0 0RF Discontinued clindamycin HCl 300 mg capsule 600 mg PO TID Discharge Instructions Instructions: Urinary Tract Infection in Women (DC), Catheter-associated Urinary Tract Infection (DC) Additional Instructions: Resume home health services add, nursing services. Indwelling urinary catheter care, discontinue when patient has commode in the home. Consider assisted living. Continue your medications as previously prescribed. Stand Alone Forms: Nursing Discharge Form Referrals: Mai Castelan [employer] [Primary Care Provider] - (Please call [phone] Saturday to make an Appointment ) Activity:: Activity as Tolerated Equipment/Supplies:: W/C Diet:: Carb Counting Discharge Orders Discharge Orders: Discharge Order (Routine); Ordered 08/04/22 Ordered By: Nicole Graham Discharge Data Discharge Date/Time-TO BE ENTERED AT DEPARTURE: 08/04/22 16:59 DS: Summary Time Spent with Patient providing and/or coordinating discharge services: Greater than 30 minutes Status at Discharge Functional status at discharge: wheelchair bound Overall status at discharge: patient is back to baseline Mental Status: other (angry, yelling) Speech and Movement: agitated Mood: other (angry, yelling) Affect: anxious affect Exam Psych Mental Status: other (angry, yelling) Speech and Movement: agitated Mood: other (angry, yelling) Affect: anxious affect DS: Data Vitals/I&O Vitals and I&O: Vital Signs Temperature 36.3 C L 08/04/22 11:30 Temperature Source Tympanic 08/04/22 11:30 Pulse 68 08/04/22 11:30 Pulse Rhythm Regular 08/03/22 23:14 Respiratory Rate 19 08/04/22 11:30 Respiratory Effort Normal 08/03/22 23:14 Respiratory Depth Normal 08/03/22 23:14 Respiratory Pattern Normal 08/03/22 23:14 Blood Pressure 143/74 H 08/04/22 11:30 Blood Pressure Mean 105 08/03/22 12:31 Blood Pressure Position Supine 08/03/22 06:49 Pulse Oximetry 94 08/04/22 11:30 Oxygen Delivery Method Room Air 08/04/22 11:30 Oxygen Flow Rate 0 08/04/22 11:30 Pain Level 5 08/04/22 09:16 Intake & Output 08/04/22 08/05/22 08/05/22 23:59 11:59 23:59 Intake Total 1050 / 1050 Output Total 650 / 1350 Balance 400 / -300 Intake: IV 1050 / 1050 Output: Urine 650 / 1350 Other: Urine Color Crosby Urine Appearance Clear Urine Odor None Voiding Methods Indwelling Catheter PFSH All Active Problems (Updated 08/05/22 @ 00:03 by PACO JIMENEZ) Acute UTI (Acute) Falls (Acute) Acute dehydration (Acute) Acute delirium (Acute) Eschar of toe (Acute ~05/2022) Cellulitis of toe of right foot (Acute ~05/2022) Nail dystrophy (Acute) Diabetic foot infection (Acute) Nail avulsion, toe (Acute) L great toe Urge incontinence (Chronic) Declines RX briefs Self-care deficit (Acute) Bedbound (Acute) gets up with WC to BR Recurrent falls (Chronic) Difficulty transferring from bed to wheelchair (Chronic) DME hospital bed has helped Difficulty transferring from toilet to wheelchair (Chronic) Steph investigating commode Wheelchair bound (Chronic) no falls since starting using WC permanent need severe diabetic nephropathy needs more adaptive equipment in the home Cognitive attention deficit (Chronic) needs multiple repetitions of information Diabetes type 2, uncontrolled (Chronic) though she has had education over the years, still seems not to understand carb counting ideally needs someone to educate son as he buys her food also needs hands-on teaching with nutrition labels, etc. 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) Goal A1c < 7.5% Schein, neuropathy; Charcot's foot 03/19/13 [employer] Spinal stenosis of lumbar region with neurogenic claudication (Chronic 12/08/13) 04/13/2013 MRI Lumbar Spine: Facet arthropathy, DJD, L4-5, L5-S1 central spinal and neural foraminal stenosis Neurosurgery referral, but not a surgical candidate [facility] chronic pain service Chronic Pain [facility] Pain Center consult 10/26/15 [facility] [place] [facility]ine [facility] consult 03/04/17 (Sanket Sawant MD) Other and unspecified hyperlipidemia (Chronic 08/14/12) Esophageal reflux disease (Chronic 07/24/11) UPPER GI SERIES 11/14/2012, MOD HIATAL HERNIA SEVERE GERD Coronary artery disease involving cahto coronary artery of cahto heart (Chronic) INFERIOR [place] 1996, 100% RCA occlusion; large inf defect on perfusion scan, dr Fair Chronic kidney disease, stage III (moderate) (Chronic 08/14/12) 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 not sure if it is worth following her AAA, as she is not surgical candidate defer to PCP Chronic back pain (Chronic) Lumbar spinal stenosis-->RX FENTANYL initiated inpt 12/2021; PCP rx'ing with [facility] under palliative conditions (pt cannot come in for OVs) Hypothyroidism (Chronic) Hypertension (Chronic) Marijuana dependence (Chronic) Daily use since 17yo-->helps with mood & pain Medical History Acute hyperglycemia Anaerobic bacteremia Arthropathy associated with neurological disorder (03/19/13) Dr. 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 Guerra DJD of right shoulder (01/01/13) 12/2012 x-ray severe DJD glenohumeral joint Dr. Guerra; not a surgical candidate for replacement DNI (do not intubate) DNR (do not resuscitate) Encounter for hospice care Episode of seizures in July 2012 Fall at home Goals of care, counseling/discussion DNR/DNI COLST done wants to stay home may need new agent if/when Steph moves out of state as planned Iron deficiency anemia Mass of both parotid glands Abnormal CT 08/2019 Mild pulmonary hypertension Nausea and vomiting (08/01/14) a. previous history of possible marijuana induced hyperemesis Osteoarthritis of left elbow Palliative care patient Perirectal abscess With associated hospitalization 2019 POLST (Physician Orders for Life-Sustaining Treatment) signed 06/01/20 Pulmonary embolism (~12/2021) Never started anticoagulation RLS (restless legs syndrome) Tinea corporis Surgical History Appendectomy Childhood surgery, no date given by pt.HE Hemiarthroplasty (06/13/15) Dr Charlie Gallardo shoulder History of carpal tunnel release of both wrists (~05/2012) Hx of umbilical hernia repair (09/06/15) Incarcerated umbilical hernia repair (09/06/15) Tonsillectomy childhood surgery, no date given by pt.HE Family History Mother , at 73 yo from dementia Dementia Diabetes Stroke Blind Father , MVA (truck) accident at 45yo No problems noted. Sister Age: 62 Thyroid cancer Brother , from complications of diabetes age 60 Diabetes Brother Diabetes Heart disease Colon cancer Ulcerative colitis Sister Obesity Prediabetes Arthritis Son Substance abuse attends [facility] clinic; h/o heroin and other opioid addiction Other FH: mental illness Social History Smoking/Tobacco Use Status: Current every day Tobacco Type: cigarettes Tobacco: How many years used: 54 Quit status: not considering quitting Counseling given: counseling >3 minutes Smoking risk assessment performed?: Yes Alcohol Intake: former Drug use: Daily Substance use type: marijuana Counseling given: Yes Details: pt states she smokes marijuana on a daily basis x1 per day Adopted: No Caregiver/Support person: Yes Foster care: No Household members: children Housing: house Number of Children: 1 number of grandchildren: 0 Communication Needs: Corrective Lenses Education Level: high school Details: didn't finish sophomore year Do you need help understanding health information?: Always 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; 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 Pets and animals: Yes Current gender identity: female What is your relationship status?: How often do you talk on the phone with friends or family?: three or more times per week How often do you get together with friends or relatives?: twice per week Panel score (0-1 are the most socially isolated patients): 1 What type of physical activity do you participate in: none and wheelchair-bound Special eliana needs: No Seatbelt use: sometimes Working smoke detector in home: Yes Fire extinguisher in home: Yes Do you feel safe at home: Yes (Most of the time, yes I feel better if my son or somebody is there) Do you feel safe in your relationship?: Yes Additional Social history: Patient reports she lives with her son Time Spent with Patient Time Spent with Patient: 70-84 minutes4 Time was spent: preparing to see the patient(eg.review tests), ordering medications,tests, procedures, referring, communicating with other health medicare biller, indepentently interpreting results, counseling the patient and care coordination
--- NOTE | 2022-08-07 14:44 | INDS_ITS ---
Date of service: 07/09/22 Time of Service: 18:00 PT Notes Visit Reasons: UTI,Delirium,Dehydration,Falls Physical Therapy Inpatient Initial Evaluation Dates: 08/06/2022 Date of service: 08/05/2022 only This is a clinical summary of care provided for the duration of dates listed above. No charge was made in the completion of this documentation. Referring Doctor: Nicole Graham NP PT Orders: PT CONSULT: Eval/treat Precautions: Fall. Standard.? Activity as tolerated.? Wheelchair-bound. Patient Profile/Admitting Diagnosis: Lisa is a 67-year-old female with spinocerebellar ataxia, chronic back pain, type 2 diabetes mellitus, cardiomyopathy, and COPD who presented to the ED on 08/03/2022 due to multiple recent falls.? She is admitted with diagnoses of acute UTI,? repeated falls, type 2 diabetes mellitus, nicotine dependence,? chronic kidney disease stage III, hypothyroidism, and hypertension. PMHX: All Active Problems?(Updated 08/03/22 @ 11:44 by Missael Josue MD) Fall (Acute) Acute UTI (Acute) Falls (Acute) Acute dehydration (Acute) Acute delirium (Acute) Eschar of toe (Acute ~05/2022) Cellulitis of toe of right foot (Acute ~05/2022) Nail dystrophy (Acute) Diabetic foot infection (Acute) Nail avulsion, toe (Acute) L great toeUrge incontinence (Chronic) Declines RX briefsSelf-care deficit (Acute) Bedbound (Acute) gets up with WC to BRRecurrent falls (Chronic) Difficulty transferring from bed to wheelchair (Chronic) DME hospital bed has helped Difficulty transferring from toilet to wheelchair (Chronic) Steph investigating commode Wheelchair bound (Chronic) no falls since starting using WC permanent need severe diabetic nephropathy needs more adaptive equipment in the home Cognitive attention deficit (Chronic) needs multiple repetitions of information Diabetes type 2, uncontrolled (Chronic) though she has had education over the years, still seems not to understand carb counting ideally needs someone to educate son as he buys her food also needs hands-on teaching with nutrition labels, etc. 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 neuropathy; Charcot's foot 03/19/13 [employer] Spinal stenosis of lumbar region with neurogenic claudication (Chronic 12/08/13) 04/13/2013 MRI Lumbar Spine: Facet arthropathy, DJD, L4-5, L5-S1 central spinal and neural foraminal stenosis Neurosurgery referral, but not a surgical candidate [facility] chronic pain service Chronic Pain [facility] consult 10/26/15 [facility] [place] [facility] [place] 03/04/17 (Sanket Sawant MD) Other and unspecified hyperlipidemia (Chronic 08/14/12) Esophageal reflux disease (Chronic 07/24/11) UPPER GI SERIES 11/14/2012, MOD HIATAL HERNIA ? SEVERE GERD Coronary artery disease involving [place] coronary artery of [place] heart (Chronic) INFERIOR MA 1996, 100% RCA occlusion; large inf defect on perfusion scan, dr Fair Chronic kidney disease, stage III (moderate) (Chronic 08/14/12) Cortical atrophy R kidney on CT 07/2014; multiple cysts Cardiomyopathy (Chronic) Dr Fair, EF 45% Jun 2014 ECHO (h/o much worse) 10/2016 ECHO: EF 40-45% 10/2016 MPI: no acute, but persistent old infarct COPD, mild (Chronic 07/02/17) PFTs Abdominal aortic aneurysm (Chronic 11/27/12) Identified 10/31/12 CT abd-pelvis; 4cm; stable 4.1 cm 07/2014 CT, 4.3cm 11/2016, 5.5cm 03/04/17 [place] [place] not sure if it is worth following her AAA, as she is not surgical candidate defer to PCP Chronic back pain (Chronic) Lumbar spinal stenosis-->RX FENTANYL initiated inpt 12/2021; PCP rx'ing with [facility] under palliative conditions (pt cannot come in for OVs) Hypothyroidism (Chronic) Hypertension (Chronic) Marijuana dependence (Chronic) Daily use since 17yo-->helps with mood & pain Medical History? 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 Guerra DJD of right shoulder (01/01/13) 12/2012 x-ray severe DJD glenohumeral joint Dr. Guerra; not a surgical candidate for replacement DNI (do not intubate) DNR (do not resuscitate) Encounter for hospice care Episode of seizures in July 2012 Fall at home Goals of care, counseling/discussion DNR/DNI COLST done wants to stay home may need new agent if/when Steph moves out of state as planned Iron deficiency anemia Mass of both parotid glands Abnormal CT 08/2019 Mild pulmonary hypertension Nausea and vomiting (08/01/14) a. previous history of possible marijuana induced hyperemesis Osteoarthritis of left elbow Palliative care patient Perirectal abscess With associated hospitalization 2019 POLST (Physician Orders for Life-Sustaining Treatment) signed 06/01/20Pulmonary embolism (~12/2021) Never started anticoagulationRLS (restless legs syndrome) Tinea corporis Surgical History? Appendectomy Childhood surgery, no date given by pt.HE Hemiarthroplasty (06/13/15) Dr Charlie Gallardo shoulderHistory of carpal tunnel release of both wrists (~05/2012) Hx of umbilical hernia repair (09/06/15) Incarcerated umbilical hernia repair (09/06/15) Tonsillectomy childhood surgery, no date given by pt.HE Social History/Home Situation: Son lives with patient in a private home but son.? States that son does everything for her but points out that the son works during the day. She states she has a walk-in shower and that she has a lady who comes in 2 hours everyday to help out with chores and meals. Wheelchair-bound. Equipment Owned/DME: Front-wheeled walker, single-point cane, wheelchair Subjective: NT. See most recent [employer] notes. Objective: General Observation: NT. See most recent [employer] notes. Mental Status: NT. See most recent [employer] notes. Pain: NT. See most recent [employer] notes. ROM: Right Upper Extremity: ? Shoulder Flexion allows up to 80 degrees. Shoulder abduction allows up to 90 degree. Elbow flexion WFL. Wrist flexion WFL. Opening and closing of hand WFL. Left Upper Extremity:? Shoulder Flexion allows up to 100 degrees. Shoulder abduction allows up to 100 degrees. Elbow flexion WFL. Wrist flexion WFL. Opening and closing of hand WFL. Right Lower Extremity: Hip flexion 20 degrees past 90 while seated on chair. Hip abduction WFL. Knee flexion WFL.? Knee extension -20 degrees.? Ankle dorsiflexion WFL. Ankle plantarflexion WFL. Left Lower Extremity: Hip flexion 20 degrees past 90 while seated on chair. Hip abduction WFL. Knee flexion WFL. Knee extension -20 degrees. Ankle dorsiflexion WFL. Ankle plantarflexion WFL. Strength: Right Upper Extremity: Shoulder flexors 3-/5. Shoulder abductors 3-/5. Elbow flexors 4-/5. Elbow extensors 4-/5. Grader Tender strong. Left Upper Extremity: Shoulder flexors 3-/5. Shoulder abductors 3-/5. Elbow flexors 4-/5. Elbow extensors 4-/5. Grader Tender strong. Right Lower Extremity: Hip flexors 3-/5. Hip abductors 3+/5. Knee flexors 3+/5. Knee extensors 3-/5. Ankle dorsiflexors 3-/5. Ankle plantarflexors 3-/5. Left Lower Extremity: Hip flexors 3-/5. Hip abductors 3+/5. Knee flexors 3+/5. Knee extensors 3-/5. Ankle dorsiflexors 3-/5. Ankle plantarflexors 3-/5. Bed Mobility/Transfers: Unable due to pain and lack of motivation.? Patient refused to get out of bed. Gait: Unable due to pain and lack of motivation. Patient refused to get out of bed. Balance: Static Sitting: Unable to test Dynamic Sitting: Unable to test Static Standing: Unable to test Dynamic Standing: Unable to test Assessment: Pain limits ability to move.? Lacks motivation.? Prognosis is poor due to cognitive status,? lack of motivation,? and symptoms of anxiety as well as depression.? Unsure of how far of a progression patient can achieved.? Patient presents with clinical signs and symptoms consistent with current/admitting diagnoses that have resulted to mobility limitations, gait instability, generalized weakness, and impairment of motor control as demonstrated by the following impairment level findings: 1.? Decreased strength to B UE/LE major muscle groups (chronic) 2.? Impaired activity tolerance 3.? Generalized pain at 8/10 4.? Symptoms of anxiety and depression 5.? Impaired cognition Impairments are contributing to the following functional limitations: 1.? Total dependence in bed mobility skills 2.? Total dependence in transfers 3.? Wheelchair-bound 4.? Increased fall risk 6.? Increased risk for skin breakdown Goals: Goals X1 week 1. Supine-Sit minimal assist NOT MET 2. Sit-Supine minimal assist NOT MET 3. Sit-Stand minimal assist NOT MET 4. Stand-Sit minimal assist NOT MET 5. Bed-Chair minimal assist NOT MET 6. Chair-Bed minimal assist NOT MET 7. Fair static and dynamic standing balance/tolerance NOT MET DISCHARGE RECOMMENDATIONS: Patient will benefit from group home facility placement for continued skilled physical therapy services in order to progress mobility level, strength, and balance versus LTC placement. TREATMENT CODE/TIME: ND Thank you very much for this referral. Alison Onofre PT, DPT, CLT [facility] [place], [place]
== END 2022-08-04 16:59 | disposition home health service (06) ==
LOC: ER 11:44 → MS 21:19
PROVIDERS: Family Medicine; Nurse Practitioner Family; Admitting Provider Family Medicine; Emergency Provider Emergency Medicine; PCP Nurse Practitioner Adult Health; Visit Provider Family Medicine
DX: N39.0 Urinary tract infection, site not specified (principal); F05 Delirium due to known physiological condition; E86.0 Dehydration; Z91.81 History of falling; E11.65 Type 2 diabetes mellitus with hyperglycemia; J44.9 Chronic obstructive pulmonary disease, unspecified; F17.210 Nicotine dependence, cigarettes, uncomplicated; N18.30 Chronic kidney disease, stage 3 unspecified; I25.10 Atherosclerotic heart disease of native coronary artery without angina pectoris; I12.9 Hypertensive chronic kidney disease with stage 1 through stage 4 chronic kidney disease, or unspecified chronic kidney disease; W05.0XXA Fall from non-moving wheelchair, initial encounter; Z79.4 Long term (current) use of insulin; Z79.84 Long term (current) use of oral hypoglycemic drugs; R41.89 Other symptoms and signs involving cognitive functions and awareness; Z91.199 Patient's noncompliance with other medical treatment and regimen due to unspecified reason; G60.2 Neuropathy in association with hereditary ataxia; E78.5 Hyperlipidemia, unspecified; G89.29 Other chronic pain; F12.20 Cannabis dependence, uncomplicated
CPT/HCPCS: 36415; 80048; 80053; 82947; 87077; 87635; 94640; 96361; 96365; 96366; 96367; 96372; 96375; 97530; 99285; J1650; 71045; 72170; 80320; 81003; 81015; 83735; 85025; 87086; 87186; 87480; 87510; 87660; 94664; 99222; 99239; G0378; J0696; J2405; J3490

== ENCOUNTER 2022-08-10 12:17 | Emergency (ER) | payer OTHER, MEDICAID, SELFPAY ==
[2022-08-10] VITALS (14 sets, daily range): BP systolic 123–161; BP diastolic 65–85; PULSE 70–84; RESP 16–27; TEMP 36.8; O2SAT 94–98
--- NOTE | 2022-08-10 12:15 | RT.EKG_ITS ---
APPROVED REPORT Exam: Resting ECG Reason for Exam: weakness Patient Location: E HR:79 bpm ECG Measurements Heart Rate 79 AXIS NV 213 P -14 QRSd 130 QRS 17 QT 456 T -18 QTc 523 Conclusion Sinus rhythm IVCD no significant chnge
--- NOTE | 2022-08-10 12:17 | ED.GENADUL_ITS ---
Discharge Plan Disposition Patient Disposition: Home Condition: Improving Discharge Details Clinical Impression: Hyperglycemia, Wheelchair bound, Recurrent falls, Acute dehydration Primary Care Provider: Mai Castelan ED Provider: Preet Thomas Home Meds and New Rx's Prescriptions: Continued gabapentin 300 mg capsule 300 mg PO BID Qty: 180 3RF Rx Instructions: Dose increase 03/01/22 for chronic lumbar spine pain/spinal stenosis (DME) lancets Misc See Rx Instructions .MEDSUPPLY Qty: 100 3RF Rx Instructions: As directed to check blood glucose daily. On insulin. Dispense covered brand. mupirocin 2 % ointment 1 applic topical BID-TID Qty: 15 0RF Rx Instructions: May substitute with cream if less expensive; apply thin layer to swollen & red finger until resolved Rybelsus 3 mg tablet 3 mg PO DAILY Qty: 30 0RF Rx Instructions: Uncontrolled diabetes (DME) Blood Glucose Test Strip See Rx Instructions .MEDSUPPLY Qty: 100 3RF Rx Instructions: As directed to check blood glucose daily. On insulin. Dispense covered brand. insulin degludec [Tresiba FlexTouch U-200] 200 unit/mL (3 mL) insulin pen 50 unit subcut DAILY MDD 80 units Qty: 12 11RF Rx Instructions: Uncontrolled T2DM (DME) Air mattress See Rx Instructions .Route .MEDSUPPLY Qty: 1 0RF Hold Instructions: Home Medication placed on hold at Doctor's office Rx Instructions: As directed (DME) Wheelchair (manual) regular See Rx Instructions .Route .MEDSUPPLY Qty: 1 0RF Rx Instructions: As directed; currently has Tracer EX2 model--please replace with similar; thank you. 03/01/22. (DME) blood-glucose meter [OneTouch Ultra2 Meter] Kit See Rx Instructions .ROUTE .MEDSUPPLY Qty: 1 0RF Rx Instructions: to check BS qid for DM E11.9 management to keep A1c under 8 metformin 500 mg tablet extended release 24 hr 500 mg PO DAILY Qty: 90 3RF Rx Instructions: Diabetes--take with food rosuvastatin 10 mg tablet 10 mg PO DAILY Qty: 90 3RF pantoprazole 40 mg tablet,delayed release (DR/EC) 40 mg PO DAILY Qty: 90 3RF metoprolol succinate 25 mg tablet extended release 24 hr 25 mg PO DAILY Qty: 90 3RF albuterol sulfate [ProAir HFA] 90 mcg/actuation HFA aerosol inhaler 1 - 2 puff Inhalation Q4H PRN Qty: 18 3RF budesonide-formoterol [Symbicort] 80-4.5 mcg/actuation HFA aerosol inhaler 2 puff Inhalation BID Qty: 3 3RF Hold Instructions: Home Medication placed on hold at Doctor's office Patient Comments: 04/01/17 Patient unsure of last dose. Maybe last Thur, but patient is noncompliant with medications CDG acetaminophen [Tylenol Arthritis Pain] 650 mg tablet extended release 1,300 mg PO Q12H Qty: 360 3RF Rx Instructions: Chronic pain--do not exceed 4G in 24 hours tylenol (DME) blood sugar diagnostic Strip See Dose Instructions .ROUTE .MEDSUPPLY Qty: 100 3RF Dose Instruction: As directed Rx Instructions: One Touch Ultra,E 11.40 tests daily on insulin (DME) Novofine Autocover 30 gauge x 1/3 needle See Rx Instructions .ROUTE .MEDSUPPLY Qty: 100 3RF Rx Instructions: For DM E11.40 to maintain A1C <8, monitoring daily naproxen 375 mg tablet 375 mg PO .daily in AM PRN (Reason: pain) Qty: 90 0RF Rx Instructions: Chronic pain nicotine 14 mg/24 hr patch 24 hour 1 patch transdermal Q24H Qty: 14 0RF Rx Instructions: Nicotine cessation melatonin 3 mg capsule 3 mg PO HS Qty: 90 0RF levothyroxine 50 mcg tablet 50 mcg PO DAILY nystatin 100,000 unit/gram Powder 1 applic topical BID Qty: 0 0RF Discharge Instructions Instructions: Diabetic Hyperglycemia (ED) Additional Instructions: Your work-up in the emergency department showed mild dehydration and hyperglycemia. You were given for intravenous normal saline and underwent evaluation with laboratory work-up. You were seen by care management in the ER. You declined further attempts at placement for rehabilitation. You will be discharged to home. Please follow-up with your primary care physician for routine care. Medical Decision Making 67-year-old female presents from home complaining of generalized weakness over days time. She states she lives alone, is wheelchair-bound and often is unable to successfully transfer from her wheelchair to her bed. She has frequent falls but has not recently injured herself. She states she has been reluctant to pursue rehabilitation facility in the past but now wishes to be placed outside of her home and notes her willingness to do so. On arrival the patient is alert and interactive she has a normal blood pressure, is afebrile and oxygenating normally. She is generally poorly kempt. Patient's initial blood glucose is greater than 300. She is at risk for metabolic abnormalities, dehydration, ketoacidosis, urinary tract infection. Patient IV access established, screening labs obtained. She is referred for scr eening EKG and x-ray. The patient's diagnostic studies reveal a white count of 8, hematocrit 35, platelets 191. Sodium 134, potassium 4.2, chloride 101, bicarb 24, BUN 18, creatinine 0.8. Glucose elevated at 338. Magnesium subtherapeutic at 1.5. Troponin negative. Urinalysis shows trace ketones, specific gravity 1.025, negative leuk esterase and negative nitrites. Patient is deconditioned and has ongoing chronic medical problems. She has signed out AGAINST MEDICAL ADVICE from hospital admissions on numerous occasions. She states today she isinitially willing to pursue a rehabilitation stay. I discussed the case with Angelita James RN from care management who saw the patient in consultation. Patient states unequivocally she does not want rehabilitation stay and is willing to be discharged home if she has no admittable diagnoses. She has mild hyperglycemia which is improving. She is stable and improving. We discussed that I fear she will return again to the ER, but it is her wish to be discharged at this time. HPI General Mode of arrival: ambulatory . Date/Time Provider Initiated Documentation: 08/10/22 12:24 . Limitations to Documentation: no limitations . Information obtained by: patient and EMS . History of Present Illness 67 year old F presents to the emergency department with the chief complaint of Weakness, I am here to be admitted, described as mild, moderate and similar to prior episodes, and it has been constant. No relieving factors improve symptom(s), Movement worsens symptoms . Patient notes weakness and other (Had fall but no injury, has difficulty transferring between wheelchair and bed at home. Once a week home health); denies confusion, seizure, shortness of breath and syncope. Patient did receive the following treatments prior to arrival, none Related Data Home Medications Medication Instructions Recorded Confirmed blood-glucose meter (HiConversion.ruTouch #1 ea 04/19/21 08/03/22 Ultra2 Meter kit) Air mattress #1 ea 06/15/21 08/03/22 Wheelchair (manual) #1 ea 03/01/22 08/03/22 metformin 500 mg tablet,extended 500 mg PO DAILY #90 tabs 03/07/22 08/10/22 release 24 hr gabapentin 300 mg capsule 300 mg PO BID #180 caps 04/09/22 08/10/22 metoprolol succinate 25 mg 25 mg PO DAILY #90 tabs 05/30/22 08/10/22 tablet,extended release 24 hr pantoprazole 40 mg tablet,delayed 40 mg PO DAILY #90 tab-caps 05/30/22 08/10/22 release rosuvastatin 10 mg tablet 10 mg PO DAILY #90 tabs 05/30/22 08/10/22 levothyroxine 50 mcg tablet 50 mcg PO DAILY 06/01/22 08/10/22 nystatin 100,000 unit/gram topical 1 applic topical BID #0 grams 06/05/22 08/03/22 powder albuterol sulfate 90 mcg/actuation 1 - 2 puff inhalation Q4H PRN #18 06/06/22 08/10/22 aerosol inhaler (ProAir HFA) grams budesonide-formoterol HFA 80 2 puff inhalation BID ##3 06/06/22 08/10/22 mcg-4.5 mcg/actuation aerosol inhaler (Symbicort) acetaminophen 650 mg 1,300 mg PO Q12H #360 tabs 06/29/22 08/10/22 tablet,extended release (Tylenol Arthritis Pain) lancets #100 ea 06/29/22 08/03/22 mupirocin 2 % topical ointment 1 applic topical BID-TID #15 grams 06/29/22 08/03/22 semaglutide 3 mg tablet (Rybelsus) 3 mg PO DAILY #30 tabs 06/29/22 08/10/22 blood sugar diagnostic (Blood #100 ea 07/02/22 08/03/22 Glucose Test strips) insulin degludec 200 unit/mL (3 50 unit (0.25 mL) subcut DAILY #12 07/20/22 08/10/22 mL) subcutaneous pen (Tresiba mL FlexTouch U-200 insulin) blood sugar diagnostic #100 ea 07/23/22 08/03/22 pen needle, diabetic, safety 30 #100 ea 07/28/22 08/03/22 gauge x 1/3 (Novofine Autocover) naproxen 375 mg tablet 375 mg PO .daily in AM PRN pain 08/06/22 08/10/22 #90 tabs nicotine 14 mg/24 hr daily 1 patch transdermal Q24H #14 ea 08/06/22 08/10/22 transdermal patch melatonin 3 mg capsule 3 mg PO HS sleep #90 caps 08/08/22 08/10/22 Previous Rx's Medication Instructions Recorded blood-glucose meter (OneTouch #1 ea 04/19/21 Ultra2 Meter kit) Air mattress #1 ea 06/15/21 Wheelchair (manual) #1 ea 03/01/22 metformin 500 mg tablet,extended 500 mg PO DAILY #90 tabs 03/07/22 release 24 hr gabapentin 300 mg capsule 300 mg PO BID #180 caps 04/09/22 metoprolol succinate 25 mg 25 mg PO DAILY #90 tabs 05/30/22 tablet,extended release 24 hr pantoprazole 40 mg tablet,delayed 40 mg PO DAILY #90 tab-caps 05/30/22 release rosuvastatin 10 mg tablet 10 mg PO DAILY #90 tabs 05/30/22 nystatin 100,000 unit/gram topical 1 applic topical BID #0 grams 06/05/22 powder albuterol sulfate 90 mcg/actuation 1 - 2 puff inhalation Q4H PRN #18 06/06/22 aerosol inhaler (ProAir HFA) grams budesonide-formoterol HFA 80 2 puff inhalation BID ##3 06/06/22 mcg-4.5 mcg/actuation aerosol inhaler (Symbicort) acetaminophen 650 mg 1,300 mg PO Q12H #360 tabs 06/29/22 tablet,extended release (Tylenol Arthritis Pain) lancets #100 ea 06/29/22 mupirocin 2 % topical ointment 1 applic topical BID-TID #15 grams 06/29/22 semaglutide 3 mg tablet (Rybelsus) 3 mg PO DAILY #30 tabs 06/29/22 blood sugar diagnostic (Blood #100 ea 07/02/22 Glucose Test strips) insulin degludec 200 unit/mL (3 50 unit (0.25 mL) subcut DAILY #12 07/20/22 mL) subcutaneous pen (Tresiba mL FlexTouch U-200 insulin) blood sugar diagnostic #100 ea 07/23/22 pen needle, diabetic, safety 30 #100 ea 07/28/22 gauge x 1/3 (Novofine Autocover) naproxen 375 mg tablet 375 mg PO .daily in AM PRN pain 08/06/22 #90 tabs nicotine 14 mg/24 hr daily 1 patch transdermal Q24H #14 ea 08/06/22 transdermal patch melatonin 3 mg capsule 3 mg PO HS sleep #90 caps 08/08/22 Allergies Allergy/AdvReac Type Severity Reaction Status Date / Time bupropion HCl Allergy Severe seizures Verified 08/10/22 12:11 [From Wellbutrin] carvedilol [From Coreg] Allergy Mild Itching Verified 08/10/22 12:11 morphine AdvReac Unknown nausea Verified 08/10/22 12:11 General Stated Complaint: GenMedical DINESH: 3 Review of Systems Narrative: See HPI. 8 systems reviewed and otherwise negative. PFSH All Active Problems (Updated 08/10/22 @ 13:47 by Preet Thomas MD) Hyperglycemia (Acute) Acute UTI (Acute) Falls (Acute) Acute dehydration (Acute) Acute delirium (Acute) Eschar of toe (Acute ~05/2022) Cellulitis of toe of right foot (Acute ~05/2022) Nail dystrophy (Acute) Diabetic foot infection (Acute) Nail avulsion, toe (Acute) L great toe Urge incontinence (Chronic) Declines RX briefs Self-care deficit (Acute) Bedbound (Acute) gets up with WC to BR Recurrent falls (Chronic) Difficulty transferring from bed to wheelchair (Chronic) DME hospital bed has helped Difficulty transferring from toilet to wheelchair (Chronic) Steph investigating commode Wheelchair bound (Chronic) no falls since starting using WC permanent need severe diabetic nephropathy needs more adaptive equipment in the home Cognitive attention deficit (Chronic) needs multiple repetitions of information Diabetes type 2, uncontrolled (Chronic) though she has had education over the years, still seems not to understand carb counting ideally needs someone to educate son as he buys her food also needs hands-on teaching with nutrition labels, etc. 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) Goal A1c < 7.5% Schein, neuropathy; Charcot's foot 03/19/13 [employer] Spinal stenosis of lumbar region with neurogenic claudication (Chronic 12/08/13) 04/13/2013 MRI Lumbar Spine: Facet arthropathy, DJD, L4-5, L5-S1 central spinal and neural foraminal stenosis Neurosurgery referral, but not a surgical candidate [facility] chronic pain service Chronic Pain [facility] Pain Center consult 10/26/15 [facility] Spine Center consult 03/04/17 (Sanket Sawant MD) Other and unspecified hyperlipidemia (Chronic 08/14/12) Esophageal reflux disease (Chronic 07/24/11) UPPER GI SERIES 11/14/2012, MOD HIATAL HERNIA SEVERE GERD Coronary artery disease involving manzanita coronary artery of manzanita heart (Chronic) INFERIOR IA 1996, 100% RCA occlusion; large inf defect on perfusion scan, dr Fair Chronic kidney disease, stage III (moderate) (Chronic 08/14/12) Cortical atrophy R kidney on CT 07/2014; multiple cysts Cardiomyopathy (Chronic) Dr Fair, EF 45% Jun 2014 ECHO (h/o much worse) 10/2016 ECHO: EF 40-45% 10/2016 MPI: no acute, but persistent old infarct COPD, mild (Chronic 07/02/17) PFTs Abdominal aortic aneurysm (Chronic 11/27/12) Identified 10/31/12 CT abd-pelvis; 4cm; stable 4.1 cm 07/2014 CT, 4.3cm 11/2016, 5.5cm 03/04/17 ([facility]). not sure if it is worth following her AAA, as she is not surgical candidate defer to PCP Chronic back pain (Chronic) Lumbar spinal stenosis-->RX FENTANYL initiated inpt 12/2021; PCP rx'ing with [facility] under palliative conditions (pt cannot come in for OVs) Hypothyroidism (Chronic) Hypertension (Chronic) Marijuana dependence (Chronic) Daily use since 17yo-->helps with mood & pain Medical History Acute hyperglycemia Anaerobic bacteremia Arthropathy associated with neurological disorder (03/19/13) Dr. 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 Guerra DJD of right shoulder (01/01/13) 12/2012 x-ray severe DJD glenohumeral joint Dr. Guerra; not a surgical candidate for replacement DNI (do not intubate) DNR (do not resuscitate) Encounter for hospice care Episode of seizures in July 2012 Fall at home Goals of care, counseling/discussion DNR/DNI COLST done wants to stay home may need new agent if/when Steph moves out of state as planned Iron deficiency anemia Mass of both parotid glands Abnormal CT 08/2019 Mild pulmonary hypertension Nausea and vomiting (08/01/14) a. previous history of possible marijuana induced hyperemesis Osteoarthritis of left elbow Palliative care patient Perirectal abscess With associated hospitalization 2019 POLST (Physician Orders for Life-Sustaining Treatment) signed 06/01/20 Pulmonary embolism (~12/2021) Never started anticoagulation RLS (restless legs syndrome) Tinea corporis Surgical History Appendectomy Childhood surgery, no date given by pt.HE Hemiarthroplasty (06/13/15) Dr Charlie Gallardo shoulder History of carpal tunnel release of both wrists (~05/2012) Hx of umbilical hernia repair (09/06/15) Incarcerated umbilical hernia repair (09/06/15) Tonsillectomy childhood surgery, no date given by pt.HE Family History Mother , at 73 yo from dementia Dementia Diabetes Stroke Blind Father , MVA (truck) accident at 45yo No problems noted. Sister Age: 62 Thyroid cancer Brother , from complications of diabetes age 60 Diabetes Brother Diabetes Heart disease Colon cancer Ulcerative colitis Sister Obesity Prediabetes Arthritis Son Substance abuse attends [facility]; h/o heroin and other opioid addiction Other FH: mental illness Social History Smoking/Tobacco Use Status: Current every day Tobacco Type: cigarettes Tobacco: How many years used: 54 Quit status: not considering quitting Counseling given: counseling >3 minutes Smoking risk assessment performed?: Yes Alcohol Intake: former Drug use: Daily Substance use type: marijuana Counseling given: Yes Details: pt states she smokes marijuana on a daily basis x1 per day Adopted: No Caregiver/Support person: Yes Foster care: No Household members: children Housing: house Number of Children: 1 number of grandchildren: 0 Communication Needs: Corrective Lenses Education Level: high school Details: didn't finish sophomore year Do you need help understanding health information?: Always 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; 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 Pets and animals: Yes Current gender identity: female What is your relationship status?: How often do you talk on the phone with friends or family?: three or more times per week How often do you get together with friends or relatives?: twice per week Panel score (0-1 are the most socially isolated patients): 1 What type of physical activity do you participate in: none and wheelchair-bound Special eliana needs: No Seatbelt use: sometimes Working smoke detector in home: Yes Fire extinguisher in home: Yes Do you feel safe at home: Yes (Most of the time, yes I feel better if my son or somebody is there) Do you feel safe in your relationship?: Yes Additional Social history: Patient reports she lives with her son Exam Narrative Exam Narrative: GEN: awake, alert, oriented 3. Pleasant, poorly groomed, interactive. HEAD: Normocephalic, atraumatic ENT: Mucous membranes dry, oropharynx unremarkable, External ear exam unremarkable EYES: PERRL, EOMI NECK: Full ROM, no NIKKI, no menigismus CHEST/RESP: Nontender, clear to auscultation bilateral, no wheeze/rhonchi/rales CARDIOVASCULAR: Distant, RRR, no murmur, rub karla. 2+ Rad pulse bilateral ABDOMEN: Soft, nontender, no mass. +Bowel sounds, Hartley catheter is in place. EXT: Full ROM. No focal neurologic deficits Neuro: Grossly normal neurologic exam, there are no focal deficits, the patient is conversant, interactive. Psych: Speech fluent, thoughts congruent, affect normal Course Vital Signs Vital signs: Vital Signs Temperature 36.8 C 08/10/22 11:56 Pulse 82 08/10/22 11:56 Respiratory Rate 18 08/10/22 11:56 Blood Pressure 133/75 08/10/22 11:56 Pulse Oximetry 94 08/10/22 11:56 Temperature 36.8 C 08/10/22 11:56 Temperature Source Oral 08/10/22 11:56 Pulse 82 08/10/22 11:56 Respiratory Rate 16 08/10/22 12:02 Respiratory Effort Normal, Non-Labored 08/10/22 12:02 Blood Pressure 133/75 08/10/22 11:56 Blood Pressure Position Sitting 08/10/22 11:56 Pulse Oximetry 94 08/10/22 11:56 Oxygen Delivery Method Room Air 08/10/22 11:56 Oxygen Flow Rate 0 08/10/22 11:56
[2022-08-10 12:41] LABS: Source Nasal/Nares
[2022-08-10 12:45] LABS: Abs Immature Grans 0.07 10^3/uL (0.0-0.06); Absolute Basophil Count 0.05 10^3/uL (0.0-0.2); Absolute Lymphocyte Count 1.61 10^3/uL (1.2-3.4); Absolute Monocyte Count 0.35 10^3/uL (0.1-0.8); Absolute Neutrophil Count 6.19 10^3/uL (1.2-6.7); Basophils % 0.6; Eosinophils % 1.2; HGB 11.1 g/dL (11.2-15.7); Immature Grans % 0.8; Lymphocytes % 19.2; MCH 24.7 pg (27.0-33.0); MCHC 31.7 % (32.0-36.0); MCV 78 fL (80-95); MPV 10.3 fL (8.0-11.0); Monocytes % 4.2; Platelet Count 191 10^3/uL (130-400); RBC 4.49 10^6/uL (3.93-5.22); RDW 15.4 % (11.7-14.6); WBC 8.37 10^3/uL (4.4-10.8)
[2022-08-10 12:47] LABS: Bilirubin Negative (Negative); Blood Moderate (Negative); Clarity Sl Cloudy (Clear); Glucose >=1000 mg/dL (Negative); Ketones Trace mg/dL (Negative); Leukocyte Esterase Negative (Negative); Nitrite Negative (Negative); Specific Gravity 1.025 (1.005-1.025); Urobilinogen 0.2 mg/dL (Up to 0.2)
[2022-08-10 12:52] LABS: WBC 0-2 HPF (0-5)
[2022-08-10 12:53] LABS: Bacteria Few HPF (Negative); C & S Indicated? Yes; Casts Negative LPF (Negative); Crystals Negative HPF (Negative); Epithelial Cells Few HPF (Negative); Mucus Negative (Negative)
[2022-08-10] MEDS: Normal Saline 1,000 ML 150 ML IV (12:55)
[2022-08-10 13:02] LABS: ALT 17 U/L (14-59); AST 10 U/L (15-37); Albumin 3.3 g/dL (3.4-5.0); Alkaline Phosphatase 105 U/L (46-116); Anion Gap 8.5 mmol/L (3-11); BUN 18 mg/dL (7-18); Bilirubin, Total 0.4 mg/dL (0.2-1.0); CO2 24.5 mmol/L (21.0-32.0); CREATININE 0.8 mg/dL (0.55-1.02); Chloride 101 mmol/L (98-107); Estimated GFR 80.21 (mL/min/1.73m2); Glucose 338 mg/dL (74-106); Magnesium 1.5 mg/dL (1.8-2.4); Potassium 4.2 mmol/L (3.5-5.1); Sodium 134 mmol/L (136-145); Total Protein 6.6 g/dL (6.4-8.2); Troponin I < 50 ng/L (<or=60)
[2022-08-10 13:16] LABS: COVID-19 PCR Negative (Negative)
[2022-08-10] MEDS: MAGNESIUM SULFATE 1 GM/100 ML BAG IVPB (13:33)
--- NOTE | 2022-08-10 14:35 | CMPROGNOTE_ITS ---
- If Service Date Differs Date of service: 08/10/22 Time of Service: 12:00 Care Management Progress Note CM was asked to meet with [facility] as she had expressed a desire to go to a half-way facility for short term care. Prior to meeting with her, RADHA did confirm that she has skilled nursing Medicaid to ensure there would be a payer source. CM approached [facility] and asked about her request for half-way facility placement. She was quite clear that she had no interest in going to a SNF. RADHA then asked what her visit to the ED was for. She stated that she just wanted to be admitted to [facility]. CM explained that she was not ill and that there would be no medical necessity for admission. She then asked if she could go home. After confirming there was no need for admission, CM assured her that she could indeed discharge home. Transportation [facility] was coordinated by ED staff.
--- NOTE | 2022-08-13 09:23 | NUR.NOTE ---
Nursing Note: Accessed chart to look up whether or not on antibiotic.
== END 2022-08-10 14:27 | disposition home or self-care (01) ==
PROVIDERS: Emergency Provider Emergency Medicine; PCP Nurse Practitioner Adult Health
DX: R73.9 Hyperglycemia, unspecified (principal); E86.0 Dehydration; R29.6 Repeated falls; Z99.3 Dependence on wheelchair; Z20.822 Contact with and (suspected) exposure to COVID-19; Z66 Do not resuscitate; Z86.711 Personal history of pulmonary embolism
CPT/HCPCS: 36415; 80053; 82962; 87077; 87635; 93005; 96360; 96361; 99284; 81003; 81015; 83735; 84484; 85025; 87086; 87186; 93010; J3475

== ENCOUNTER 2022-08-13 09:34 | Inpatient (IN) | payer OTHER, MEDICAID, SELFPAY ==
[2022-08-13] VITALS (36 sets, daily range): BP systolic 100–136; BP diastolic 56–82; PULSE 72–113; RESP 16–27; TEMP 35.8–36.7; O2SAT 91–100
--- NOTE | 2022-08-13 | DI.RAD_ITS ---
Exam(s) XR WRIST RT COMPLETE EXAM: XR WRIST RT COMPLETE CLINICAL HISTORY: swelling. TECHNIQUE: 2D digital imaging was performed. Three views. Portable. COMPARISON: CR,XR XR FOREARM RT from 08/01/2022 CR,XR XR HUMERUS RT from 08/01/2022 FINDINGS: BONES: No acute fracture is present. No bony destructive lesion is seen. Spur noted at the medial asp ect of the distal radius. JOINTS: Severe narrowing of the radiocarpal joint space with periarticular spurring and some bony fra gmentation. Marked widening of the scapholunate distance. Proximal migration of the capitate and se mei narrowing of the capitate lunate joint space. Some dorsal tilt of the lunate. SOFT TISSUE: Marked swelling. IMPRESSION: Findings consistent with scapholunate advanced collapse as well as severe degenerative changes at the radial scaphoid joint. No acute fracture visible. DATA REPOSITORY: RADIATION DOSE DELIVERED:
--- NOTE | 2022-08-13 09:30 | RT.EKG_ITS ---
APPROVED REPORT Exam: Resting ECG Reason for Exam: chest pain Patient Location: E HR:107 bpm ECG Measurements Heart Rate 107 AXIS DE [id number] P [id number] QRSd 130 QRS -6 QT 427 T 60 QTc 569 Conclusion Junctional tachycardia...absent P waves, rapid V-rate IVCD, consider LBBB...QRSd>120, notch/slur R I aVL V5-6 Probable anterolateral infarct, old...Q>35mS, abnrm ST-T, V2-V6,I,aVL
--- NOTE | 2022-08-13 10:00 | DI.CT_ITS ---
Exam(s) CT THORAX ABD/PEL CTA EXAM: CT THORAX ABD/PEL CTA CLINICAL HISTORY: abdominal pain, chest pain, prior AAA. TECHNIQUE: Imaging Protocol: Axial computed tomography images with coronal and sagittal reformatted images were created and reviewed CONTRAST MATERIAL: Intravenous: Omnipaque 350 Contrast volume:100 ml Oral: None COMPARISON: CT CT THORAX ABD/PEL CTA from 12/22/2021 FINDINGS: CHEST: AORTA: Heart size upper normal. Small pericardial effusion. Diameter of the ascending thoracic aort a is 3.9 cm. No evidence of dissection. The diameter of the aortic arch is 2.9 cm. The descending thoracic aorta is atherosclerotic but not included. It exhibits maximum diameter 3.1 cm. In the abdomen the aorta is again noted be quite atherosclerotic and there is an infrarenal abdominal aortic aneurysm again noted which exhibits abundant mural thrombus and maximum diameter of 5.4 cm. Arterial megaly continues through and beyond the aortic bifurcation into the common iliac arteries wh ich are aneurysmal throughout their entire length. The maximum external diameter of the right common iliac artery is 2.9 cm. Maximum diameter for the left common iliac artery also 2.9 cm. The right a nd left external iliac arteries exhibit normal diameters. The internal iliac arteries are also ather osclerotic. 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 T his is unchanged from previous. The left internal iliac artery is not significantly dilated. Distal most images of this study reveal occlusion of the left SFA at its origin. The partially visua lized right SFA is patent. LUNGS: Right lung is clear. Mild increased markings in left upper lobe apical posterior segment note d. This abuts the upper aspect of the left major fissure.. There are no pleural effusionx MEDIASTINUM: There is no hilar nor mediastinal adenopathy. Visualized thyroid contains multiple nodul es in the right thyroid lobe measuring up to 1.5 cm. in the transverse plane.In addition there is a large retrocardiac hiatal hernia noted which measures 8.5 cm wide by 5 cm AP by 6 cm cephalo caudad. CARDIAC: Heart size is upper normal. Small pericardial effusion. AORTA: As above. Descending thoracic aorta is quite atherosclerotic, similar to previous.There is no evidence of aortic dissection. ABDOMEN: There is no ascites. LIVER: There are no new focal hepatic lesions nor dilatation of intrahepatic ducts. GALLBLADDER/BILIARY: No obvious gallbladder pathology. CBD is not dilated. PANCREAS: There is calcification in the pancreatic head noted. No hypodense mass nor cyst. Pancreat ic duct is not dilated. The uncinate process of the pancreas retains normal triangular configuration . SPLEEN: Spleen is not enlarged. There are no intrasplenic lesions. Splenic and portal veins are hwang nt. ADRENALS: Slight thickening of the left adrenal gland noted, similar to previous. KIDNEYS: Benign cysts in both kidneys again noted. Largest of these is in the lateral cortex of the left kidney and measures 2.7 x 2.5 cm, partially exophytic and unchanged in size. No solid renal mas ses evident. Nonobstructive 3 millimeter calculus noted in the peripheral aspect of the right kidney . No hydronephrosis. No hydroureter. There is a Hartley catheter coiled in the urinary bladder.. ABDOMINAL AORTA: As above. Atherosclerotic with maximum diameter 5.4 cm. Aortoiliac segments also a neurysmal-dilated as described above and there is also fusiform aneurysm in the right internal iliac artery. Left SFA is occluded. No evidence of abdominal aortic dissection. ABDOMINAL WALL: No evidence of significant anterior abdominal wall hernia. GI: There is no evidence of bowel obstruction, free air, nor abscess.No obvious ischemic appearing bruce wel loops. PELVIS: LYMPH NODES: There is no intrapelvic nor inguinal adenopathy. GI: No evidence of appendicitis.Diverticuli in the sigmoid but no obvious acute diverticulitis of the sigmoid. URINARY BLADDER: Hartley catheter within the bladder lumen. REPRODUCTIVE: Uterus size appears age-appropriate. No significant ovarian masses. OSSEOUS: No significant osseous lesions. Multilevel chronic degenerative disc disease. No compression fractures evident. IMPRESSION: 1. Compared to CT scan of 12/22/2021 there is again noted severe atherosclerotic findings of the thor acic and abdominal-pelvic aorta and iliac arteries, as detailed above. Maximum diameter of the abdom inal aortic aneurysm is 5.4 cm. Aneurysmal dilatation does not stop at the level of the aortic bifur cation but continues into the common iliac arteries which both exhibit diameters 2.9 cm and there is also fusiform aneurysmal dilatation of the right internal iliac artery (1.4 cm). The left SFA artery is noted to be occluded, this finding not evident on the prior study. The visualized right SFA melo viktoriya patent. There are no aneurysms of the common femoral arteries. No evidence of aortic dissection nor dissection flaps in the iliac vessels. 2. Large retrocardiac hiatal hernia. Small thyroid nodules. 3. Benign cysts in both kidneys. Hartley catheter noted coiled in the urinary bladder. 4. Other findings as above. RADIATION DOSE DELIVERED: 1,373.21mGy.cm Total DLP DATA REPOSITORY: All CT scans at this facility are submitted to the National Radiology Data Registry (NRDR) Dose Index Registry (DIR) with the [employer] ([employer]). RADIATION OPTIMIZATION: All CT scans at this facility use at least one of these dose optimization te chniques: automated exposure control; mA and/or kV adjustment per patient size (includes targeted exa ms where dose is matched to clinical indication); or iterative reconstruction.
--- NOTE | 2022-08-13 10:00 | DI.CT_ITS ---
Exam(s) CT HEAD WO EXAM: CT HEAD WO CLINICAL HISTORY: left sided weakness, slurred speech. TECHNIQUE: Imaging Protocol: Axial computed tomography images with coronal and sagittal reformatted images were created and reviewed COMPARISON: CT CT HEAD WO from 08/01/2022 FINDINGS: There are no skull fractures. There is no fluid in the visualized paranasal sinuses. There is no evidence of intracranial hemorrhage, mass effect, or shift of midline structures. There are no extra-axial fluid collections. The ventricles are not enlarged or shifted and there is no blo od within the ventricular system nor within the basal cisterns. There is some mild periventricular hypodensity consistent chronic small vessel disease, this appearin g unchanged from previous. There is no new obvious territorial infarction. Small lacunar infarct in the right supra ventricular white matter is unchanged. IMPRESSION: No obvious acute intracranial findings on this noninfused CT scan of the brain. Chronic small-vessel white matter ischemic changes again noted, appearing similar to the prior study of 08/01/2022. RADIATION DOSE DELIVERED: 935.41mGy.cm Total DLP DATA REPOSITORY: All CT scans at this facility are submitted to the National Radiology Data Registry (NRDR) Dose Index Registry (DIR) with the [employer] ([employer]). RADIATION OPTIMIZATION: All CT scans at this facility use at least one of these dose optimization te chniques: automated exposure control; mA and/or kV adjustment per patient size (includes targeted exa ms where dose is matched to clinical indication); or iterative reconstruction.
--- NOTE | 2022-08-13 10:15 | W.ED.GENAD ---
Discharge Plan Disposition Patient Disposition: Admit to [facility] Condition: Serious Discharge Details Chief Complaint: GenMedical Clinical Impression: Bacterial UTI, Dark emesis Primary Care Provider: Mai Castelan ED Provider: Jimmy Barton Home Meds and New Rx's Prescriptions: No Action gabapentin 300 mg capsule 300 mg PO BID Qty: 180 3RF Rx Instructions: Dose increase 03/01/22 for chronic lumbar spine pain/spinal stenosis (DME) lancets Misc See Rx Instructions .MEDSUPPLY Qty: 100 3RF Rx Instructions: As directed to check blood glucose daily. On insulin. Dispense covered brand. mupirocin 2 % ointment 1 applic topical BID-TID Qty: 15 0RF Rx Instructions: May substitute with cream if less expensive; apply thin layer to swollen & red finger until resolved Rybelsus 3 mg tablet 3 mg PO DAILY Qty: 30 0RF Rx Instructions: Uncontrolled diabetes (DME) Blood Glucose Test Strip See Rx Instructions .MEDSUPPLY Qty: 100 3RF Rx Instructions: As directed to check blood glucose daily. On insulin. Dispense covered brand. insulin degludec [Tresiba FlexTouch U-200] 200 unit/mL (3 mL) insulin pen 50 unit subcut DAILY MDD 80 units Qty: 12 11RF Rx Instructions: Uncontrolled T2DM (DME) Air mattress See Rx Instructions .Route .MEDSUPPLY Qty: 1 0RF Hold Instructions: Home Medication placed on hold at Doctor's office Rx Instructions: As directed (DME) Wheelchair (manual) regular See Rx Instructions .Route .MEDSUPPLY Qty: 1 0RF Rx Instructions: As directed; currently has Tracer EX2 model--please replace with similar; thank you. 03/01/22. (DME) blood-glucose meter [OneTouch Ultra2 Meter] Kit See Rx Instructions .ROUTE .MEDSUPPLY Qty: 1 0RF Rx Instructions: to check BS qid for DM E11.9 management to keep A1c under 8 metformin 500 mg tablet extended release 24 hr 500 mg PO DAILY Qty: 90 3RF Rx Instructions: Diabetes--take with food rosuvastatin 10 mg tablet 10 mg PO DAILY Qty: 90 3RF pantoprazole 40 mg tablet,delayed release (DR/EC) 40 mg PO DAILY Qty: 90 3RF metoprolol succinate 25 mg tablet extended release 24 hr 25 mg PO DAILY Qty: 90 3RF albuterol sulfate [ProAir HFA] 90 mcg/actuation HFA aerosol inhaler 1 - 2 puff Inhalation Q4H PRN Qty: 18 3RF budesonide-formoterol [Symbicort] 80-4.5 mcg/actuation HFA aerosol inhaler 2 puff Inhalation BID Qty: 3 3RF Hold Instructions: Home Medication placed on hold at Doctor's office Patient Comments: 04/01/17 Patient unsure of last dose. Maybe last Thur, but patient is noncompliant with medications CDG acetaminophen [Tylenol Arthritis Pain] 650 mg tablet extended release 1,300 mg PO Q12H Qty: 360 3RF Rx Instructions: Chronic pain--do not exceed 4G in 24 hours tylenol (DME) blood sugar diagnostic Strip See Dose Instructions .ROUTE .MEDSUPPLY Qty: 100 3RF Dose Instruction: As directed Rx Instructions: One Touch Ultra,E 11.40 tests daily on insulin (DME) Novofine Autocover 30 gauge x 1/3 needle See Rx Instructions .ROUTE .MEDSUPPLY Qty: 100 3RF Rx Instructions: For DM E11.40 to maintain A1C <8, monitoring daily naproxen 375 mg tablet 375 mg PO .daily in AM PRN (Reason: pain) Qty: 90 0RF Rx Instructions: Chronic pain nicotine 14 mg/24 hr patch 24 hour 1 patch transdermal Q24H Qty: 14 0RF Rx Instructions: Nicotine cessation melatonin 3 mg capsule 3 mg PO HS Qty: 90 0RF levothyroxine 50 mcg tablet 50 mcg PO DAILY nystatin 100,000 unit/gram Powder 1 applic topical BID Qty: 0 0RF Medical Decision Making -- 67-year-old female with multiple medical problems including history of pulmonary embolism, pulmonary hypertension, diabetes, GERD, coronary artery disease, cardiomyopathy, chronic kidney disease, COPD, abdominal aortic aneurysm, chronic indwelling Jerez, here with nausea and vomiting over the past 24 hours with generalized weakness and lethargy. Patient also notes focal weakness in her left side and some change in her speech over the past 1 to 2 weeks. Patient does have throat and chest discomfort as well as abdominal pain. She has been vomiting dark vomitus. Patient is saturating well and in no respiratory distress. She is tachycardic and hypotensive. She is generally weak but weaker on the left side and also with some slurred speech. EKG was reviewed and interpreted by me: Please report, junctional tachycardia 107 bpm, interventricular conduction delay with QRS duration of 130. Q waves noted inferiorly. Differential diagnosis at this point is broad. Consider CVA and upper GI bleed versus AAA rupture versus severe urinary tract infection versus other. Urine culture that was obtained 08/10/2022 reveals greater than 100,000 colonies of Klebsiella with multiple resistance, sensitive to fluoroquinolone and Zosyn and nitrofurantoin. Suspect chronic colonization. Will change jerez and repeat UA. I will give Protonix bolus and infusion given potential for GI bleed. 1235 -- CT of the chest, abdomen and pelvis interpreted by radiology: 1. Compared to CT scan of 12/22/2021 there is again noted severe atherosclerotic findings of the thoracic and abdominal-pelvic aorta and iliac arteries, as detailed above.? Maximum diameter of the abdominal aortic aneurysm is 5.4 cm.? Aneurysmal dilatation does not stop at the level of the aortic bifurcation but continues into the common iliac arteries which both exhibit diameters 2.9 cm and there is also fusiform aneurysmal dilatation of the right internal iliac artery (1.4 cm).? The left SFA artery is noted to be occluded, this finding not evident on the prior study.? The visualized right SFA arteries patent.? There are no aneurysms of the common femoral arteries. No evidence of aortic dissection nor dissection flaps in the iliac vessels. 2. Large retrocardiac hiatal hernia.? Small thyroid nodules. 3. Benign cysts in both kidneys.? Jerez catheter noted coiled in the urinary bladder. 4. Other findings as above. CT of the head was interpreted by radiology: FINDINGS: There are no skull fractures. There is no fluid in the visualized paranasal sinuses. There is no evidence of intracranial hemorrhage, mass effect, or shift of midline structures.? There are no extra-axial fluid collections.? The ventricles are not enlarged or shifted and there is no blood within the ventricular system nor within the basal cisterns. There is some mild periventricular hypodensity consistent chronic small vessel disease, this appearing unchanged from previous.? There is no new obvious territorial infarction.? Small lacunar infarct in the right supra ventricular white matter is unchanged. IMPRESSION: No obvious acute intracranial findings on this noninfused CT scan of the brain. Chronic small-vessel white matter ischemic changes again noted, appearing similar to the prior study of 08/01/2022. Labs reviewed: Hemoglobin 11.0. This is stable. Mild hypomagnesemia noted. Patient has elevated glucose with no anion gap acidosis. Patient was reassessed and heart rate improved, blood pressure improved with IVF. Jerez catheter was changed. Patient no longer vomiting. 8419 --I spoke with Dr. López, on-call hospitalist, discussed ED presentation course, she will admit the patient. Care was transition at time of admission. Medical Records Medical records reviewed: Yes I reviewed the patient's medical records. Medical records narrative: CT of the chest abdomen pelvis 10/22/2021 as interpreted by radiology: IMPRESSION: 5.5 centimeter infrarenal abdominal aortic aneurysm with mural thrombus.? A small amount of contrast is seen extending into the mural thrombus which could be a sign impending rupture.? 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 HPI General Date/Time Provider Initiated Documentation: 08/13/22 09:36. Related Data Home Medications Medication Instructions Recorded Confirmed blood-glucose meter (OneTouch #1 ea 04/19/21 08/03/22 Ultra2 Meter kit) Air mattress #1 ea 06/15/21 08/03/22 Wheelchair (manual) #1 ea 03/01/22 08/03/22 metformin 500 mg tablet,extended 500 mg PO DAILY #90 tabs 03/07/22 08/10/22 release 24 hr gabapentin 300 mg capsule 300 mg PO BID #180 caps 04/09/22 08/10/22 metoprolol succinate 25 mg 25 mg PO DAILY #90 tabs 05/30/22 08/10/22 tablet,extended release 24 hr pantoprazole 40 mg tablet,delayed 40 mg PO DAILY #90 tab-caps 05/30/22 08/10/22 release rosuvastatin 10 mg tablet 10 mg PO DAILY #90 tabs 05/30/22 08/10/22 levothyroxine 50 mcg tablet 50 mcg PO DAILY 06/01/22 08/10/22 nystatin 100,000 unit/gram topical 1 applic topical BID #0 grams 06/05/22 08/03/22 powder albuterol sulfate 90 mcg/actuation 1 - 2 puff inhalation Q4H PRN #18 06/06/22 08/10/22 aerosol inhaler (ProAir HFA) grams budesonide-formoterol HFA 80 2 puff inhalation BID ##3 06/06/22 08/10/22 mcg-4.5 mcg/actuation aerosol inhaler (Symbicort) acetaminophen 650 mg 1,300 mg PO Q12H #360 tabs 06/29/22 08/10/22 tablet,extended release (Tylenol Arthritis Pain) lancets #100 ea 06/29/22 08/03/22 mupirocin 2 % topical ointment 1 applic topical BID-TID #15 grams 06/29/22 08/03/22 semaglutide 3 mg tablet (Rybelsus) 3 mg PO DAILY #30 tabs 06/29/22 08/10/22 blood sugar diagnostic (Blood #100 ea 07/02/22 08/03/22 Glucose Test strips) insulin degludec 200 unit/mL (3 50 unit (0.25 mL) subcut DAILY #12 07/20/22 08/10/22 mL) subcutaneous pen (Tresiba mL FlexTouch U-200 insulin) blood sugar diagnostic #100 ea 07/23/22 08/03/22 pen needle, diabetic, safety 30 #100 ea 07/28/22 08/03/22 gauge x 1/3 (Novofine Autocover) naproxen 375 mg tablet 375 mg PO .daily in AM PRN pain 08/06/22 08/10/22 #90 tabs nicotine 14 mg/24 hr daily 1 patch transdermal Q24H #14 ea 08/06/22 08/10/22 transdermal patch melatonin 3 mg capsule 3 mg PO HS sleep #90 caps 08/08/22 08/10/22 Previous Rx's Medication Instructions Recorded blood-glucose meter (OneTouch #1 ea 04/19/21 Ultra2 Meter kit) Air mattress #1 ea 06/15/21 Wheelchair (manual) #1 ea 03/01/22 metformin 500 mg tablet,extended 500 mg PO DAILY #90 tabs 03/07/22 release 24 hr gabapentin 300 mg capsule 300 mg PO BID #180 caps 04/09/22 metoprolol succinate 25 mg 25 mg PO DAILY #90 tabs 05/30/22 tablet,extended release 24 hr pantoprazole 40 mg tablet,delayed 40 mg PO DAILY #90 tab-caps 05/30/22 release rosuvastatin 10 mg tablet 10 mg PO DAILY #90 tabs 05/30/22 nystatin 100,000 unit/gram topical 1 applic topical BID #0 grams 06/05/22 powder albuterol sulfate 90 mcg/actuation 1 - 2 puff inhalation Q4H PRN #18 06/06/22 aerosol inhaler (ProAir HFA) grams budesonide-formoterol HFA 80 2 puff inhalation BID ##3 06/06/22 mcg-4.5 mcg/actuation aerosol inhaler (Symbicort) acetaminophen 650 mg 1,300 mg PO Q12H #360 tabs 06/29/22 tablet,extended release (Tylenol Arthritis Pain) lancets #100 ea 06/29/22 mupirocin 2 % topical ointment 1 applic topical BID-TID #15 grams 06/29/22 semaglutide 3 mg tablet (Rybelsus) 3 mg PO DAILY #30 tabs 06/29/22 blood sugar diagnostic (Blood #100 ea 07/02/22 Glucose Test strips) insulin degludec 200 unit/mL (3 50 unit (0.25 mL) subcut DAILY #12 07/20/22 mL) subcutaneous pen (Tresiba mL FlexTouch U-200 insulin) blood sugar diagnostic #100 ea 07/23/22 pen needle, diabetic, safety 30 #100 ea 07/28/22 gauge x 1/3 (Novofine Autocover) naproxen 375 mg tablet 375 mg PO .daily in AM PRN pain 08/06/22 #90 tabs nicotine 14 mg/24 hr daily 1 patch transdermal Q24H #14 ea 08/06/22 transdermal patch melatonin 3 mg capsule 3 mg PO HS sleep #90 caps 08/08/22 Allergies Allergy/AdvReac Type Severity Reaction Status Date / Time bupropion HCl Allergy Severe seizures Verified 08/10/22 12:11 [From Wellbutrin] carvedilol [From Coreg] Allergy Mild Itching Verified 08/10/22 12:11 morphine AdvReac Unknown nausea Verified 08/10/22 12:11 General Stated Complaint: GenMedical DINESH: 3 PFSH All Active Problems (Updated 08/13/22 @ 13:00 by Jimmy Barton MD) Hyperglycemia (Acute) Bacterial UTI (Acute) Dark emesis (Acute) Acute UTI (Acute) Falls (Acute) Acute dehydration (Acute) Acute delirium (Acute) Eschar of toe (Acute ~05/2022) Cellulitis of toe of right foot (Acute ~05/2022) Nail dystrophy (Acute) Diabetic foot infection (Acute) Nail avulsion, toe (Acute) L great toe Urge incontinence (Chronic) Declines RX briefs Self-care deficit (Acute) Bedbound (Acute) gets up with WC to BR Recurrent falls (Chronic) Difficulty transferring from bed to wheelchair (Chronic) DME hospital bed has helped Difficulty transferring from toilet to wheelchair (Chronic) Steph investigating commode Wheelchair bound (Chronic) no falls since starting using WC permanent need severe diabetic nephropathy needs more adaptive equipment in the home Cognitive attention deficit (Chronic) needs multiple repetitions of information Diabetes type 2, uncontrolled (Chronic) though she has had education over the years, still seems not to understand carb counting ideally needs someone to educate son as he buys her food also needs hands-on teaching with nutrition labels, etc. 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) Goal A1c < 7.5% Schein, neuropathy; Charcot's foot 03/19/13 [employer] Spinal stenosis of lumbar region with neurogenic claudication (Chronic 12/08/13) 04/13/2013 MRI Lumbar Spine: Facet arthropathy, DJD, L4-5, L5-S1 central spinal and neural foraminal stenosis Neurosurgery referral, but not a surgical candidate [facility] chronic pain service Chronic Pain [facility] [place] 10/26/[place] [facility] [place] 03/04/17 (Sanket Sawant MD) Other and unspecified hyperlipidemia (Chronic 08/14/12) Esophageal reflux disease (Chronic 07/24/11) UPPER GI SERIES 11/14/2012, MOD HIATAL HERNIA SEVERE GERD Coronary artery disease involving [place] coronary artery of [place] heart (Chronic) INFERIOR [place] 1996, 100% RCA occlusion; large inf defect on perfusion scan, dr Fair Chronic kidney disease, stage III (moderate) (Chronic 08/14/12) Cortical atrophy R kidney on CT 07/2014; multiple cysts Cardiomyopathy (Chronic) Dr Fair, EF 45% Jun 2014 ECHO (h/o much worse) 10/2016 ECHO: EF 40-45% 10/2016 MPI: no acute, but persistent old infarct COPD, mild (Chronic 07/02/17) PFTs Abdominal aortic aneurysm (Chronic 11/27/12) Identified 10/31/12 CT abd-pelvis; 4cm; stable 4.1 cm 07/2014 CT, 4.3cm 11/2016, 5.5cm [place]04/[place] not sure if it is worth following her AAA, as she is not surgical candidate defer to PCP Chronic back pain (Chronic) Lumbar spinal stenosis-->RX FENTANYL initiated inpt 12/2021; PCP rx'ing with [facility] under palliative conditions (pt cannot come in for OVs) Hypothyroidism (Chronic) Hypertension (Chronic) Marijuana dependence (Chronic) Daily use since 17yo-->helps with mood & pain Medical History Acute hyperglycemia Anaerobic bacteremia Arthropathy associated with neurological disorder (03/19/13) Dr. 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 Guerra DJD of right shoulder (01/01/13) 12/2012 x-ray severe DJD glenohumeral joint Dr. Guerra; not a surgical candidate for replacement DNI (do not intubate) DNR (do not resuscitate) Encounter for hospice care Episode of seizures in July 2012 Fall at home Goals of care, counseling/discussion DNR/DNI COLST done wants to stay home may need new agent if/when Steph moves out of state as planned Iron deficiency anemia Mass of both parotid glands Abnormal CT 08/2019 Mild pulmonary hypertension Nausea and vomiting (08/01/14) a. previous history of possible marijuana induced hyperemesis Osteoarthritis of left elbow Palliative care patient Perirectal abscess With associated hospitalization 2019 POLST (Physician Orders for Life-Sustaining Treatment) signed 06/01/20 Pulmonary embolism (~12/2021) Never started anticoagulation RLS (restless legs syndrome) Tinea corporis Surgical History Appendectomy Childhood surgery, no date given by pt.HE Hemiarthroplasty (06/13/15) Dr Charlie Gallardo shoulder History of carpal tunnel release of both wrists (~05/2012) Hx of umbilical hernia repair (09/06/15) Incarcerated umbilical hernia repair (09/06/15) Tonsillectomy childhood surgery, no date given by pt.HE Family History Mother , at 73 yo from dementia Dementia Diabetes Stroke Blind Father , MVA (truck) accident at 45yo No problems noted. Sister Age: 62 Thyroid cancer Brother , from complications of diabetes age 60 Diabetes Brother Diabetes Heart disease Colon cancer Ulcerative colitis Sister Obesity Prediabetes Arthritis Son Substance abuse attends [facility]; h/o heroin and other opioid addiction Other FH: mental illness Social History Smoking/Tobacco Use Status: Current every day Tobacco Type: cigarettes Tobacco: How many years used: 54 Quit status: not considering quitting Counseling given: counseling >3 minutes Smoking risk assessment performed?: Yes Alcohol Intake: former Drug use: Daily Substance use type: marijuana Counseling given: Yes Details: pt states she smokes marijuana on a daily basis x1 per day Adopted: No Caregiver/Support person: Yes Foster care: No Household members: children Housing: house Number of Children: 1 number of grandchildren: 0 Communication Needs: Corrective Lenses Education Level: high school Details: didn't finish sophomore year Do you need help understanding health information?: Always 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; 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 Pets and animals: Yes Current gender identity: female What is your relationship status?: How often do you talk on the phone with friends or family?: three or more times per week How often do you get together with friends or relatives?: twice per week Panel score (0-1 are the most socially isolated patients): 1 What type of physical activity do you participate in: none and wheelchair-bound Special eliana needs: No Seatbelt use: sometimes Working smoke detector in home: Yes Fire extinguisher in home: Yes Do you feel safe at home: Yes (Most of the time, yes I feel better if my son or somebody is there) Do you feel safe in your relationship?: Yes Additional Social history: Patient reports she lives with her son Exam Const General: cooperative and lethargic Orientation: awake, oriented to person, oriented to place and confused HENMT Mouth: mucous membranes dry Eyes Conjunctivae: normal conjunctivae Sclera: normal sclerae Neck Neck: trachea midline and supple Resp Auscultation: clear to auscultation bilaterally, no rales, no rhonchi and no wheezes Cardio Rate: tachycardic Rhythm: regular rhythm Heart Sounds: murmur GI Palpation: soft, not firm, no guarding, no masses, not rigid and nontender Other: indwelling jerez Skin General skin exam: no rashes or lesions noted Neuro General: patient alert, patient awake and tone abnormal Cognition: abnormal cognition (some confusion, poor historian) Speech: abnormal speech slurred Motor: other (strength 4/5 RUE, RLE; 3/5 LUE, RLE) Sensory Exam: no sensory deficits noted Extrem General: no edema Psych Appearance: grossly normal Affect: other (flat) Course Vital Signs Vital signs: Vital Signs Temperature 36.7 C 08/13/22 09:39 Pulse 107 H 08/13/22 09:39 Respiratory Rate 16 08/13/22 09:39 Blood Pressure 100/56 L 08/13/22 09:39 Pulse Oximetry 97 08/13/22 09:39 Temperature 36.7 C 08/13/22 09:39 Temperature Source Skin 08/13/22 09:39 Pulse 107 H 08/13/22 09:39 Respiratory Rate 16 08/13/22 09:39 Respiratory Effort Normal 08/13/22 09:49 Blood Pressure 100/56 L 08/13/22 09:39 Blood Pressure Position Supine 08/13/22 09:39 Pulse Oximetry 97 08/13/22 09:39 Oxygen Delivery Method Room Air 08/13/22 09:39 Oxygen Flow Rate 0 08/13/22 09:39 Pain Level 10 08/13/22 09:39
[2022-08-13 10:25] LABS: Lactate 1.3 mmol/L (0.6-1.4)
[2022-08-13 10:29] LABS: Abs Immature Grans 0.05 10^3/uL (0.0-0.06); Absolute Basophil Count 0.05 10^3/uL (0.0-0.2); Absolute Eosinophil Count 0.09 10^3/uL (0.0-0.7); Absolute Lymphocyte Count 1.79 10^3/uL (1.2-3.4); Absolute Monocyte Count 0.53 10^3/uL (0.1-0.8); Absolute Neutrophil Count 8.13 10^3/uL (1.2-6.7); Basophils % 0.5; Eosinophils % 0.8; Immature Grans % 0.5; Lymphocytes % 16.8; MCH 24.7 pg (27.0-33.0); MCHC 31.4 % (32.0-36.0); MCV 79 fL (80-95); Neutrophils % 76.4; Platelet Count 219 10^3/uL (130-400); RBC 4.45 10^6/uL (3.93-5.22); RDW 15.7 % (11.7-14.6); RDW-SD 43.8 fL; WBC 10.64 10^3/uL (4.4-10.8)
[2022-08-13] MEDS: Lactated Ringers 500 ML 1000 ML IV ×2 (10:33→11:45)
[2022-08-13 10:53] LABS: ALT 17 U/L (14-59); AST 8 U/L (15-37); Albumin 3.5 g/dL (3.4-5.0); Alkaline Phosphatase 108 U/L (46-116); Anion Gap 5.5 mmol/L (3-11); BUN 39 mg/dL (7-18); Bilirubin, Total 0.4 mg/dL (0.2-1.0); CO2 29.5 mmol/L (21.0-32.0); CREATININE 0.9 mg/dL (0.55-1.02); Calcium 11.4 mg/dL (8.5-10.1); Chloride 98 mmol/L (98-107); Estimated GFR 69.64 (mL/min/1.73m2); Glucose 418 mg/dL (74-106); Lipase 51 U/L (16-77); Magnesium 1.6 mg/dL (1.8-2.4); Potassium 4.7 mmol/L (3.5-5.1); Sodium 133 mmol/L (136-145); TSH (W/Ref FT4) 1.16 uIU/mL (0.36-3.74); Total Protein 6.9 g/dL (6.4-8.2); Troponin I < 50 ng/L (<or=60)
[2022-08-13 11:05] LABS: Bilirubin Negative (Negative); Blood Moderate (Negative); Clarity Cloudy (Clear); Glucose 500 mg/dL (Negative); Ketones Negative (Negative); Leukocyte Esterase Small (Negative); Nitrite Positive (Negative); Urobilinogen 0.2 mg/dL (Up to 0.2); pH 6.5 (5-8)
[2022-08-13 11:11] LABS: Bacteria Moderate HPF (Negative); Crystals Negative HPF (Negative); Epithelial Cells Few HPF (Negative); Mucus Negative (Negative); Other Cells Moderate Yeast (Negative); RBC 20-50 HPF (0-2); WBC >50 HPF (0-5)
[2022-08-13 11:12] LABS: C & S Indicated? Yes
[2022-08-13] MEDS: Normal Saline - Diluent 50 ML VIAL IJ (11:14)
[2022-08-13] MEDS: Omnipaque 350 MG/ML 500 ML BTL-Imaging package IJ (11:16)
[2022-08-13] MEDS: Pantoprazole 40 MG VIAL IVP (11:45)
[2022-08-13] MEDS: PANTOPRAZOLE 80 MG in Normal Saline 100 ML 10 MG IV (12:33)
[2022-08-13] MEDS: PIPERACILLIN/TAZO 4.5 GM in Normal Saline 100 ML IVPB (12:57)
[2022-08-13 13:02] LABS: Source Nasal/Nares
[2022-08-13 13:33] LABS: COVID-19 PCR Negative (Negative)
[2022-08-13 15:16] LABS: Troponin I < 50 ng/L (<or=60)
--- NOTE | 2022-08-13 15:52 | PCNE_ITS ---
Date of service: 08/13/22 Time of Service: 14:30 History of Present Illness Narrative: Ms. Gonzalez is a 67 y/o F currently inpt at [facility] 06/14 N/V, weakness; PMHx sig for CAD, COPD, ischemic cardiomyopathy, CKD, DM, AAA, PE, pulmonary HTN, HTN spinal stenosis ; Hospital course: presented to ED on 08/10 w/CC generalized weakness over days, recommended SNF, pt refused; improved w/monitoring; re-presented to ED on 08/13 w/ongoing weakness, N/V w/dark vomitus; d/dx CVA, upper GI vs AAA, UTI; jerez change in ED; admitted inpatient for ongoing observation and work-up Lisa reports at baseline she is WC dependent, unable to transfer unassisted; has had a jerez for urine which has been helpful w/toileting; needs assistance w/bathing; smokes 1 pack cig/day, interested in smoking cessation, would like a patch; reports has lost weight d/t decreased appetite; she is currently fatigued, hungry, and thirsty, requesting water and food; denies pain lives in [facility] w/son Ethan; he works FT in [facility] so is not around much; has [facility] and [facility], however they have been unable to provide full services as of late d/t decreased staffing; was previously considering moving to [place] w/sister, however has opted against this d/t fear of increased risk/injury w/transport and not being able to handle the transition (meaning she may in transit); she also expresses a deep desire to remaining in her home at all costs, this goes back to her childhood where she had to move around a lot, she wants to stay home, no fpc rather have people come help her. Assessment and Plan Assessment and plan (1) Bacterial UTI: Status: Acute (2) Dark emesis: Status: Acute (3) Falls: Status: Acute (4) Self-care deficit: Status: Acute (5) Bedbound: Status: Acute (6) Difficulty transferring from bed to wheelchair: Status: Chronic (7) Difficulty transferring from toilet to wheelchair: Status: Chronic (8) Obesity (BMI 30-39.9): Status: Chronic (9) Noncompliance with medication regimen: Status: Chronic (10) Nicotine dependence: Status: Chronic Qualifiers: Nicotine product type: cigarettes Substance use status: uncomplicated Qualified Code(s): F17.210 - Nicotine dependence, cigarettes, uncomplicated (11) Goals of care, counseling/discussion: (12) Nausea and vomiting: (13) Palliative care patient: Assessment and plan: Palliative to continue to follow, plan for f/u inpatient visit tu/Sat to continue establishing therapeutic relationship and discussion of GOC - current work-up ongoing - recommend nicotine patch, ordered w/attending - request PT consult - CM to work w/[facility] to determine hours available for caregiving, need for ongoing planning to discuss 03/12 or additional care options; pt frequently calls EMS for lift-assist and/or other services which 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; need for family involvement, pt preference to remain in home, refuses NH admission, has snf Medicaid - [facility] confirmed, sister Steph - team meetings ongoing, discussing GOC, caregiver requirements/needs, obtaining guardianship, etc Review of Systems Narrative: as per HPI PFSH All Active Problems Hyperglycemia (Acute) Bacterial UTI (Acute) Dark emesis (Acute) Acute UTI (Acute) Falls (Acute) Acute dehydration (Acute) Acute delirium (Acute) Eschar of toe (Acute ~05/2022) Cellulitis of toe of right foot (Acute ~05/2022) Nail dystrophy (Acute) Diabetic foot infection (Acute) Nail avulsion, toe (Acute) L great toe Urge incontinence (Chronic) Declines RX briefs Self-care deficit (Acute) Bedbound (Acute) gets up with WC to BR Recurrent falls (Chronic) Difficulty transferring from bed to wheelchair (Chronic) DME hospital bed has helped Difficulty transferring from toilet to wheelchair (Chronic) Steph investigating commode Wheelchair bound (Chronic) no falls since starting using WC permanent need severe diabetic nephropathy needs more adaptive equipment in the home Cognitive attention deficit (Chronic) needs multiple repetitions of information Diabetes type 2, uncontrolled (Chronic) though she has had education over the years, still seems not to understand carb counting ideally needs someone to educate son as he buys her food also needs hands-on teaching with nutrition labels, etc. 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) Goal A1c < 7.5% Schein, neuropathy; Charcot's foot 03/19/13 [employer] Spinal stenosis of lumbar region with neurogenic claudication (Chronic 12/08/13) 04/13/2013 MRI Lumbar Spine: Facet arthropathy, DJD, L4-5, L5-S1 central spinal and neural foraminal stenosis Neurosurgery referral, but not a surgical candidate [facility] chronic pain service Chronic Pain [facility] Pain Center consult 10/26/15 [facility] consult 03/04/17 (Sanket Sawant MD) Other and unspecified hyperlipidemia (Chronic 08/14/12) Esophageal reflux disease (Chronic 07/24/11) UPPER GI SERIES 11/14/2012, MOD HIATAL HERNIA SEVERE GERD Coronary artery disease involving [place] coronary artery of [place] heart (Chronic) INFERIOR [place] 1996, 100% RCA occlusion; large inf defect on perfusion scan, dr Fair Chronic kidney disease, stage III (moderate) (Chronic 08/14/12) Cortical atrophy R kidney on CT 07/2014; multiple cysts Cardiomyopathy (Chronic) Dr Fair, EF 45% Jun 2014 ECHO (h/o much worse) 10/2016 ECHO: EF 40-45% 10/2016 MPI: no acute, but persistent old infarct COPD, mild (Chronic 07/02/17) PFTs Abdominal aortic aneurysm (Chronic 11/27/12) Identified 10/31/12 CT abd-pelvis; 4cm; stable 4.1 cm 07/2014 CT, 4.3cm 11/2016, 5.5cm 03/04/17 ([facility] not sure if it is worth following her AAA, as she is not surgical candidate defer to PCP Chronic back pain (Chronic) Lumbar spinal stenosis-->RX FENTANYL initiated inpt 12/2021; PCP rx'ing with [facility] under palliative conditions (pt cannot come in for OVs) Hypothyroidism (Chronic) Hypertension (Chronic) Marijuana dependence (Chronic) Daily use since 17yo-->helps with mood & pain Medical History Acute hyperglycemia Anaerobic bacteremia Arthropathy associated with neurological disorder (11/07/13) Dr. 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 Guerra DJD of right shoulder (01/01/13) 12/2012 x-ray severe DJD glenohumeral joint Dr. Guerra; not a surgical candidate for replacement DNI (do not intubate) DNR (do not resuscitate) Encounter for hospice care Episode of seizures in July 2012 Fall at home Goals of care, counseling/discussion DNR/DNI COLST done wants to stay home may need new agent if/when Steph moves out of state as planned Iron deficiency anemia Mass of both parotid glands Abnormal CT 08/2019 Mild pulmonary hypertension Nausea and vomiting (08/01/14) a. previous history of possible marijuana induced hyperemesis Osteoarthritis of left elbow Palliative care patient Perirectal abscess With associated hospitalization 2019 POLST (Physician Orders for Life-Sustaining Treatment) signed 06/01/20 Pulmonary embolism (~12/2021) Never started anticoagulation RLS (restless legs syndrome) Tinea corporis Surgical History Appendectomy Childhood surgery, no date given by pt.HE Hemiarthroplasty (06/13/15) Dr Charlie Gallardo shoulder History of carpal tunnel release of both wrists (~05/2012) Hx of umbilical hernia repair (09/06/15) Incarcerated umbilical hernia repair (09/06/15) Tonsillectomy childhood surgery, no date given by pt.HE Family History Mother , at 73 yo from dementia Dementia Diabetes Stroke Blind Father , MVA (truck) accident at 45yo No problems noted. Sister Age: 62 Thyroid cancer Brother , from complications of diabetes age 60 Diabetes Brother Diabetes Heart disease Colon cancer Ulcerative colitis Sister Obesity Prediabetes Arthritis Son Substance abuse attends [facility]; h/o heroin and other opioid addiction Other FH: mental illness Social History Smoking/Tobacco Use Status: Current every day Tobacco Type: cigarettes Tobacco: How many years used: 54 Quit status: not considering quitting Counseling given: counseling >3 minutes Smoking risk assessment performed?: Yes Alcohol Intake: former Drug use: Daily Substance use type: marijuana Counseling given: Yes Details: pt states she smokes marijuana on a daily basis x1 per day Adopted: No Caregiver/Support person: Yes Foster care: No Household members: children Housing: house Number of Children: 1 number of grandchildren: 0 Communication Needs: Corrective Lenses Education Level: high school Details: didn't finish sophomore year Do you need help understanding health information?: Always 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; 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 Pets and animals: Yes Current gender identity: female What is your relationship status?: How often do you talk on the phone with friends or family?: three or more times per week How often do you get together with friends or relatives?: twice per week Panel score (0-1 are the most socially isolated patients): 1 What type of physical activity do you participate in: none and wheelchair-bound Special eliana needs: No Seatbelt use: sometimes Working smoke detector in home: Yes Fire extinguisher in home: Yes Do you feel safe at home: Yes (Most of the time, yes I feel better if my son or somebody is there) Do you feel safe in your relationship?: Yes Additional Social history: Patient reports she lives with her son Exam Narrative Exam Narrative: General: older female, chronically ill appearing; lying in bed throughout visit; limited body movement, requests water cup held for her d/t weakness, tolerates sips of water appropriate; disheveled HEENT: normocephalic, atraumatic, hearing WNL Resp: even, unlabored, speaks full sentences w/no SOB; no wheezing or cough no dena Skin: dirt under all finger nails, poor hygiene throughout; scattered scratches and bruises noted on forearms; Neuro: awake, alert, oriented to person & place; Psych: cooperative, fatigued, impoverished, loose association, judgment limited, insight poor Results Last Vital Signs Temp 97.5 F L 08/13/22 15:36 Pulse 89 08/13/22 15:36 Resp 16 08/13/22 15:36 BP 130/81 08/13/22 15:36 Pulse Ox 92 08/13/22 15:36 Labs 08/13/22 10:19 08/13/22 10:19 Labs: Laboratory Results - last 24 hr 08/13/22 08/13/22 08/13/22 10:19 10:19 10:19 WBC RBC Hgb Hct MCV MCH MCHC RDW Plt Count MPV Immature Gran % Neutrophils % Lymphocytes % Monocytes % Eosinophils % Basophils % Nucleated RBC % Absolute Neutrophils Absolute Lymphocytes Absolute Monocytes Absolute Eosinophils Absolute Basophils VBG Lactate 1.3 Sodium Potassium Chloride Carbon Dioxide Anion Gap BUN Creatinine Est GFR (CKD-EPI 2020) Glucose Calcium Magnesium Total Bilirubin AST ALT Alkaline Phosphatase Troponin I Total Protein Albumin Lipase Cancelled TSH Urine Color Urine Clarity Urine pH Ur Specific [place] Urine Protein Urine Ketones Urine Blood Urine Nitrite Urine Bilirubin Urine Urobilinogen Ur Leukocyte Esterase Urine RBC Urine WBC Ur Epithelial Cells Urine Crystals Urine Bacteria Urine Casts Urine Mucus Urine Other Ur Culture Indicated? Urine Glucose COVID-19 Source SARS-CoV-2 (PCR) Patient ABO/Rh O Positive Antibody Screen NEGATIVE 08/13/22 08/13/22 08/13/22 10:19 10:19 10:19 WBC 10.64 RBC 4.45 Hgb 11.0 L Hct 35.0 L MCV 79 L MCH 24.7 L MCHC 31.4 L RDW 15.7 H Plt Count 219 MPV 11.0 Immature Gran % 0.5 Neutrophils % 76.4 Lymphocytes % 16.8 Monocytes % 5.0 Eosinophils % 0.8 Basophils % 0.5 Nucleated RBC % 0.0 Absolute Neutrophils 8.13 H Absolute Lymphocytes 1.79 Absolute Monocytes 0.53 Absolute Eosinophils 0.09 Absolute Basophils 0.05 VBG Lactate Sodium 133 L Potassium 4.7 Chloride 98 Carbon Dioxide 29.5 Anion Gap 5.5 BUN 39 H Creatinine 0.9 Est GFR (CKD-EPI 2020) 69.64 Glucose 418 H Calcium 11.4 H Magnesium 1.6 L Total Bilirubin 0.4 AST 8 L ALT 17 Alkaline Phosphatase 108 Troponin I < 50 Total Protein 6.9 Albumin 3.5 Lipase 51 TSH 1.16 Cancelled Urine Color Urine Clarity Urine pH Ur Specific [place] Urine Protein Urine Ketones Urine Blood Urine Nitrite Urine Bilirubin Urine Urobilinogen Ur Leukocyte Esterase Urine RBC Urine WBC Ur Epithelial Cells Urine Crystals Urine Bacteria Urine Casts Urine Mucus Urine Other Ur Culture Indicated? Urine Glucose COVID-19 Source SARS-CoV-2 (PCR) Patient ABO/Rh Antibody Screen 08/13/22 08/13/22 08/13/22 10:59 13:00 14:43 WBC RBC Hgb Hct MCV MCH MCHC RDW Plt Count MPV Immature Gran % Neutrophils % Lymphocytes % Monocytes % Eosinophils % Basophils % Nucleated RBC % Absolute Neutrophils Absolute Lymphocytes Absolute Monocytes Absolute Eosinophils Absolute Basophils VBG Lactate Sodium Potassium Chloride Carbon Dioxide Anion Gap BUN Creatinine Est GFR (CKD-EPI 2020) Glucose Calcium Magnesium Total Bilirubin AST ALT Alkaline Phosphatase Troponin I < 50 Total Protein Albumin Lipase TSH Urine Color Yellow Urine Clarity Cloudy Urine pH 6.5 Ur Specific [place] 1.020 Urine Protein 30 H Urine Ketones Negative Urine Blood Moderate H Urine Nitrite Positive H Urine Bilirubin Negative Urine Urobilinogen 0.2 Ur Leukocyte Esterase Small H Urine RBC 20-50 H Urine WBC >50 H Ur Epithelial Cells Few Urine Crystals Negative Urine Bacteria Moderate Urine Casts 5-10 WBC Urine Mucus Negative Urine Other Moderate Yeast Ur Culture Indicated? Yes Urine Glucose 500 H COVID-19 Source Nasal/Nares SARS-CoV-2 (PCR) Negative Patient ABO/Rh Antibody Screen
--- NOTE | 2022-08-13 16:51 | HPE_ITS ---
Date of service: 08/03/22 Time of Service: 14:00 Assessment and Plan Assessment and plan (1) Fall: Status: Deleted Assessment and plan: Multiple fall, calls 911 almost daily as reported by EMS. No injuries. Difficulty with staying independent and declining mobility. PT consult (2) Acute UTI: Status: Acute Assessment and plan: Positive urine; UC pending, last UTI urine cx klebsiella oxytoca; Meropenem (3) Acute dehydration: Status: Acute Assessment and plan: Oral fluids IV LR 125 ml/h (4) Diabetes type 2, uncontrolled: Status: Chronic Assessment and plan: continue current diabetes management as controlled well here A1C 12.4 06/04 Qualifiers: Glycemic state: with hyperglycemia Qualified Code(s): E11.65 - Type 2 diabetes mellitus with hyperglycemia (5) Nicotine dependence: Status: Chronic Assessment and plan: NicoDerm patch Qualifiers: Nicotine product type: cigarettes Substance use status: uncomplicated Qualified Code(s): F17.210 - Nicotine dependence, cigarettes, uncomplicated (6) COPD, mild: Status: Chronic Assessment and plan: Continue her Symbicort; no acute exacerbation of her COPD. Continue nicotine replacement with transdermal nicotine. (7) Chronic kidney disease, stage III (moderate): Status: Chronic Assessment and plan: Monitor renal function avoid nephrotoxins. Qualifiers: Chronic kidney disease stage 3 subtype: unspecified whether 3a or 3b Qualified Code(s): N18.30 - Chronic kidney disease, stage 3 unspecified (8) Coronary artery disease involving [place] coronary artery of [place] heart: Status: Chronic Assessment and plan: Continue rosuvastatin (9) Hypertension: Status: Chronic Assessment and plan: blood pressure controlled Qualifiers: Hypertension type: essential hypertension Qualified Code(s): I10 - Essential (primary) hypertension (10) Hypothyroidism: Status: Chronic Assessment and plan: Continue current levothyroxine. (11) DVT prophylaxis: Status: Deleted Assessment and plan: enoxaparin daily (12) Discharge planning issues: Status: Deleted Assessment and plan: will discharge home +/- home health services - possibly short rehab stay if agreeable - when medically ready discussed with Dr López History of Present Illness History of Present Illness Chief Complaint: UTI Narrative: 67-year-old female patient with past medical history of diabetes, pulmonary embolism pulmoinary hypertension, GERD, CAD, CKD, COPD, AAA, with a chronic indwelling urinary catheter presented to the [facility] ED 08/13/2022 after multiple recent falls at home, most recently from her wheelchair with hospitalization , She presents to the ED again today with complaint of nausea and vomiting for 24h and evidence of UTI.? Patient also reports focal weakness in her left side and some change in her speech over the past 1 to 2 weeks, which she also has noted in past ED visits. Imaging unremarkable for traumatic injuries.? Labs consistent with likely mild dehydration.? Likely contributing to dehydration and mild delirium. She was started on zosyn and given an IV fluid bolus. ? Patient feeling better after fluids and rest. Given multiple falls, debility and UTI patient was admitted to the medical floor, with consideration of possible referral for short stay rehab.? Her last admission her urine culture grew out E coli; she was given fosfomycin for UTI and for burning, phenazopyridine. On her last hospitalization, we recommended SNF for short term rehab, patient vehemently refused and was discharged to home, that was 08/10/22. Prior visits to ED 07/31/22, 08/01/22, 08/03/2022 and 08/04/22. She is being admitted to the medical floor for UTI, dehydration. Review of Systems All systems reviewed & are unremarkable except as noted in HPI and below PFSH All Active Problems Hyperglycemia (Acute) Bacterial UTI (Acute) Dark emesis (Acute) Acute UTI (Acute) Falls (Acute) Acute dehydration (Acute) Acute delirium (Acute) Eschar of toe (Acute ~05/2022) Cellulitis of toe of right foot (Acute ~05/2022) Nail dystrophy (Acute) Diabetic foot infection (Acute) Nail avulsion, toe (Acute) L great toe Urge incontinence (Chronic) Declines RX briefs Self-care deficit (Acute) Bedbound (Acute) gets up with WC to BR Recurrent falls (Chronic) Difficulty transferring from bed to wheelchair (Chronic) DME hospital bed has helped Difficulty transferring from toilet to wheelchair (Chronic) Steph investigating commode Wheelchair bound (Chronic) no falls since starting using WC permanent need severe diabetic nephropathy needs more adaptive equipment in the home Cognitive attention deficit (Chronic) needs multiple repetitions of information Diabetes type 2, uncontrolled (Chronic) though she has had education over the years, still seems not to understand carb counting ideally needs someone to educate son as he buys her food also needs hands-on teaching with nutrition labels, etc. 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) Goal A1c < 7.5% Schein, neuropathy; Charcot's foot 03/19/13 [employer] Spinal stenosis of lumbar region with neurogenic claudication (Chronic 12/08/13) 04/13/2013 MRI Lumbar Spine: Facet arthropathy, DJD, L4-5, L5-S1 central spinal and neural foraminal stenosis Neurosurgery referral, but not a surgical candidate [facility] chronic pain service Chronic Pain [facility] consult 10/26/15 [facility] [place] 03/04/17 (Sanket Sawant MD) Other and unspecified hyperlipidemia (Chronic 08/14/12) Esophageal reflux disease (Chronic 07/24/11) UPPER GI SERIES 11/14/2012, MOD HIATAL HERNIA SEVERE GERD Coronary artery disease involving [place] coronary artery of [place] heart (Chronic) INFERIOR [place] 1996, 100% RCA occlusion; large inf defect on perfusion scan, dr Fair Chronic kidney disease, stage III (moderate) (Chronic 08/14/12) Cortical atrophy R kidney on CT 07/2014; multiple cysts Cardiomyopathy (Chronic) Dr Fair, EF 45% Jun 2014 ECHO (h/o much worse) 10/2016 ECHO: EF 40-45% 10/2016 MPI: no acute, but persistent old infarct COPD, mild (Chronic 07/02/17) PFTs Abdominal aortic aneurysm (Chronic 11/27/12) Identified 10/31/12 CT abd-pelvis; 4cm; stable 4.1 cm 07/2014 CT, 4.3cm 11/2016, 5.5cm 03/04/17 [place] not sure if it is worth following her AAA, as she is not surgical candidate defer to PCP Chronic back pain (Chronic) Lumbar spinal stenosis-->RX FENTANYL initiated inpt 12/2021; PCP rx'ing with [facility] under palliative conditions (pt cannot come in for OVs) Hypothyroidism (Chronic) Hypertension (Chronic) Marijuana dependence (Chronic) Daily use since 17yo-->helps with mood & pain Medical History Acute hyperglycemia Anaerobic bacteremia Arthropathy associated with neurological disorder (03/19/13) Dr. 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 Guerra DJD of right shoulder (01/01/13) 12/2012 x-ray severe DJD glenohumeral joint Dr. Guerra; not a surgical candidate for replacement DNI (do not intubate) DNR (do not resuscitate) Encounter for hospice care Episode of seizures in July 2012 Fall at home Goals of care, counseling/discussion DNR/DNI COLST done wants to stay home may need new agent if/when Steph moves out of state as planned Iron deficiency anemia Mass of both parotid glands Abnormal CT 08/2019 Mild pulmonary hypertension Nausea and vomiting (08/01/14) a. previous history of possible marijuana induced hyperemesis Osteoarthritis of left elbow Palliative care patient Perirectal abscess With associated hospitalization 2019 POLST (Physician Orders for Life-Sustaining Treatment) signed 06/01/20 Pulmonary embolism (~12/2021) Never started anticoagulation RLS (restless legs syndrome) Tinea corporis Surgical History Appendectomy Childhood surgery, no date given by pt.HE Hemiarthroplasty (06/13/15) Dr Charlie Gallardo shoulder History of carpal tunnel release of both wrists (~05/2012) Hx of umbilical hernia repair (09/06/15) Incarcerated umbilical hernia repair (09/06/15) Tonsillectomy childhood surgery, no date given by pt.HE Family History Mother , at 73 yo from dementia Dementia Diabetes Stroke Blind Father , MVA (truck) accident at 45yo No problems noted. Sister Age: 62 Thyroid cancer Brother , from complications of diabetes age 60 Diabetes Brother Diabetes Heart disease Colon cancer Ulcerative colitis Sister Obesity Prediabetes Arthritis Son Substance abuse attends [facility]; h/o heroin and other opioid addiction Other FH: mental illness Social History Smoking/Tobacco Use Status: Current every day Tobacco Type: cigarettes Tobacco: How many years used: 54 Quit status: not considering quitting Counseling given: counseling >3 minutes Smoking risk assessment performed?: Yes Alcohol Intake: former Drug use: Daily Substance use type: marijuana Counseling given: Yes Details: pt states she smokes marijuana on a daily basis x1 per day Adopted: No Caregiver/Support person: Yes Foster care: No Household members: children Housing: house Number of Children: 1 number of grandchildren: 0 Communication Needs: Corrective Lenses Education Level: high school Details: didn't finish sophomore year Do you need help understanding health information?: Always 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; 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 Pets and animals: Yes Current gender identity: female What is your relationship status?: How often do you talk on the phone with friends or family?: three or more times per week How often do you get together with friends or relatives?: twice per week Panel score (0-1 are the most socially isolated patients): 1 What type of physical activity do you participate in: none and wheelchair-bound Special eliana needs: No Seatbelt use: sometimes Working smoke detector in home: Yes Fire extinguisher in home: Yes Do you feel safe at home: Yes (Most of the time, yes I feel better if my son or somebody is there) Do you feel safe in your relationship?: Yes Additional Social history: Patient reports she lives with her son Meds Allergies and Home Medications Allergies Allergy/AdvReac Type Severity Reaction Status Date / Time bupropion HCl Allergy Severe seizures Verified 08/10/22 12:11 [From Wellbutrin] carvedilol [From Coreg] Allergy Mild Itching Verified 08/10/22 12:11 morphine AdvReac Unknown nausea Verified 08/10/22 12:11 Home Medications Medication Instructions Recorded Confirmed Type blood-glucose meter (OneTouch #1 ea 04/19/21 08/13/22 Rx Ultra2 Meter kit) Air mattress #1 ea 06/15/21 08/13/22 Rx Wheelchair (manual) #1 ea 03/01/22 08/13/22 Rx metformin 500 mg tablet,extended 500 mg PO DAILY #90 tabs 03/07/22 08/13/22 Rx release 24 hr gabapentin 300 mg capsule 300 mg PO BID #180 caps 04/09/22 08/13/22 Rx metoprolol succinate 25 mg 25 mg PO DAILY #90 tabs 05/30/22 08/13/22 Rx tablet,extended release 24 hr pantoprazole 40 mg tablet,delayed 40 mg PO DAILY #90 tab-caps 05/30/22 08/13/22 Rx release rosuvastatin 10 mg tablet 10 mg PO DAILY #90 tabs 05/30/22 08/13/22 Rx levothyroxine 50 mcg tablet 50 mcg PO DAILY 06/01/22 08/13/22 History nystatin 100,000 unit/gram topical 1 applic topical BID #0 grams 06/05/22 08/13/22 Rx powder albuterol sulfate 90 mcg/actuation 1 - 2 puff inhalation Q4H PRN #18 06/06/22 08/13/22 Rx aerosol inhaler (ProAir HFA) grams budesonide-formoterol HFA 80 2 puff inhalation BID ##3 06/06/22 08/13/22 Rx mcg-4.5 mcg/actuation aerosol inhaler (Symbicort) acetaminophen 650 mg 1,300 mg PO Q12H #360 tabs 06/29/22 08/13/22 Rx tablet,extended release (Tylenol Arthritis Pain) lancets #100 ea 06/29/22 08/13/22 Rx mupirocin 2 % topical ointment 1 applic topical BID-TID #15 grams 06/29/22 08/13/22 Rx semaglutide 3 mg tablet (Rybelsus) 3 mg PO DAILY #30 tabs 06/29/22 08/13/22 Rx blood sugar diagnostic (Blood #100 ea 07/02/22 08/13/22 Rx Glucose Test strips) insulin degludec 200 unit/mL (3 50 unit (0.25 mL) subcut DAILY #12 07/20/22 08/13/22 Rx mL) subcutaneous pen (Tresiba mL FlexTouch U-200 insulin) blood sugar diagnostic #100 ea 03/13/23 04/03/23 Rx pen needle, diabetic, safety 30 #100 ea 07/28/22 08/13/22 Rx gauge x 1/3 (Novofine Autocover) naproxen 375 mg tablet 375 mg PO .daily in AM PRN pain 08/06/22 08/13/22 Rx #90 tabs nicotine 14 mg/24 hr daily 1 patch transdermal Q24H #14 ea 08/06/22 08/13/22 Rx transdermal patch melatonin 3 mg capsule 3 mg PO HS sleep #90 caps 08/08/22 08/13/22 Rx Exam Const General: cooperative Orientation: alert, awake, oriented to person, oriented to place and confused HENMT Mouth: mucous membranes dry Eyes Conjunctivae: normal conjunctivae Sclera: normal sclerae Neck Neck: trachea midline and supple Resp Auscultation: clear to auscultation bilaterally, no rales, no rhonchi and no wheezes Cardio Rate: tachycardic Rhythm: regular rhythm Heart Sounds: murmur GI Palpation: soft, not firm, no guarding, no masses, not rigid and nontender Other: indwelling jerez Skin General skin exam: no rashes or lesions noted Neuro General: patient alert, patient awake and tone abnormal Cognition: abnormal cognition (some confusion, poor historian) Speech: abnormal speech slurred Motor: other (strength 4/5 RUE, RLE; 3/5 LUE, RLE) Sensory Exam: no sensory deficits noted Extrem General: no edema Psych Appearance: grossly normal Affect: other (flat) Results Labs 08/13/22 10:19 08/13/22 10:19 Labs: Laboratory Results - last 24 hr 08/13/22 08/13/22 08/13/22 10:19 10:19 10:19 WBC RBC Hgb Hct MCV MCH MCHC RDW Plt Count MPV Immature Gran % Neutrophils % Lymphocytes % Monocytes % Eosinophils % Basophils % Nucleated RBC % Absolute Neutrophils Absolute Lymphocytes Absolute Monocytes Absolute Eosinophils Absolute Basophils VBG Lactate 1.3 Sodium Potassium Chloride Carbon Dioxide Anion Gap BUN Creatinine Est GFR (CKD-EPI 2020) Glucose Calcium Magnesium Total Bilirubin AST ALT Alkaline Phosphatase Troponin I Total Protein Albumin Lipase Cancelled TSH Urine Color Urine Clarity Urine pH Ur Specific [place] Urine Protein Urine Ketones Urine Blood Urine Nitrite Urine Bilirubin Urine Urobilinogen Ur Leukocyte Esterase Urine RBC Urine WBC Ur Epithelial Cells Urine Crystals Urine Bacteria Urine Casts Urine Mucus Urine Other Ur Culture Indicated? Urine Glucose COVID-19 Source SARS-CoV-2 (PCR) Patient ABO/Rh O Positive Antibody Screen NEGATIVE 08/13/22 08/13/22 08/13/22 10:19 10:19 10:19 WBC 10.64 RBC 4.45 Hgb 11.0 L Hct 35.0 L MCV 79 L MCH 24.7 L MCHC 31.4 L RDW 15.7 H Plt Count 219 MPV 11.0 Immature Gran % 0.5 Neutrophils % 76.4 Lymphocytes % 16.8 Monocytes % 5.0 Eosinophils % 0.8 Basophils % 0.5 Nucleated RBC % 0.0 Absolute Neutrophils 8.13 H Absolute Lymphocytes 1.79 Absolute Monocytes 0.53 Absolute Eosinophils 0.09 Absolute Basophils 0.05 VBG Lactate Sodium 133 L Potassium 4.7 Chloride 98 Carbon Dioxide 29.5 Anion Gap 5.5 BUN 39 H Creatinine 0.9 Est GFR (CKD-EPI 2020) 69.64 Glucose 418 H Calcium 11.4 H Magnesium 1.6 L Total Bilirubin 0.4 AST 8 L ALT 17 Alkaline Phosphatase 108 Troponin I < 50 Total Protein 6.9 Albumin 3.5 Lipase 51 TSH 1.16 Cancelled Urine Color Urine Clarity Urine pH Ur Specific [place] Urine Protein Urine Ketones Urine Blood Urine Nitrite Urine Bilirubin Urine Urobilinogen Ur Leukocyte Esterase Urine RBC Urine WBC Ur Epithelial Cells Urine Crystals Urine Bacteria Urine Casts Urine Mucus Urine Other Ur Culture Indicated? Urine Glucose COVID-19 Source SARS-CoV-2 (PCR) Patient ABO/Rh Antibody Screen 08/13/22 08/13/22 08/13/22 10:59 13:00 14:43 WBC RBC Hgb Hct MCV MCH MCHC RDW Plt Count MPV Immature Gran % Neutrophils % Lymphocytes % Monocytes % Eosinophils % Basophils % Nucleated RBC % Absolute Neutrophils Absolute Lymphocytes Absolute Monocytes Absolute Eosinophils Absolute Basophils VBG Lactate Sodium Potassium Chloride Carbon Dioxide Anion Gap BUN Creatinine Est GFR (CKD-EPI 2020) Glucose Calcium Magnesium Total Bilirubin AST ALT Alkaline Phosphatase Troponin I < 50 Total Protein Albumin Lipase TSH Urine Color Yellow Urine Clarity Cloudy Urine pH 6.5 Ur Specific [place] 1.020 Urine Protein 30 H Urine Ketones Negative Urine Blood Moderate H Urine Nitrite Positive H Urine Bilirubin Negative Urine Urobilinogen 0.2 Ur Leukocyte Esterase Small H Urine RBC 20-50 H Urine WBC >50 H Ur Epithelial Cells Few Urine Crystals Negative Urine Bacteria Moderate Urine Casts 5-10 WBC Urine Mucus Negative Urine Other Moderate Yeast Ur Culture Indicated? Yes Urine Glucose 500 H COVID-19 Source Nasal/Nares SARS-CoV-2 (PCR) Negative Patient ABO/Rh Antibody Screen Last Vital Signs Temp 36.4 C L 08/13/22 15:36 Pulse 89 08/13/22 15:36 Resp 16 08/13/22 15:36 BP 130/81 08/13/22 15:36 Pulse Ox 92 08/13/22 15:36 Time Spent Time spent with Patient: 40-54 minutes Time was spent: preparing to see the patient(eg.review tests), ordering medications,tests, procedures, referring, communicating with other health care transition manager, indepentently interpreting results, counseling the patient and care coordination
[2022-08-13] MEDS: Insulin Aspart 300 UNITS/3 ML PEN SC ×2 (17:11→20:40)
[2022-08-13] MEDS: Nicotine 14 MG/24 HR PATCH TD (17:45)
[2022-08-13] MEDS: Enoxaparin 40 MG/0.4 ML SYR SC (17:45)
[2022-08-13] MEDS: Acetaminophen 325 MG TAB PO (17:50)
--- NOTE | 2022-08-13 20:23 | DI.VRAD_ITS ---
PROCEDURE INFORMATION: Exam: XR Right Wrist Exam date and time: 08/13/2022 6:49 PM Age: 67 years old Clinical indication: Swelling; Wrist; Right TECHNIQUE: Imaging protocol: Radiologic exam of the right wrist. Views: 3 or more views. COMPARISON: CR XR FOREARM RT 08/01/2022 1:18 AM FINDINGS: Bones/joints: There is advanced osteoarthritis of the wrist noted throughout multiple intercarpal joints, with scapholunate advanced collapse (SLAC). There is widening of the scapholunate interval measuring approximally 5 mm, with proximal migration of the capitate and scaphoid bones. There is rotatory subluxation of the scaphoid bone and possible dorsal intercalated segment instability (DISI) with increased scapholunate angle on the lateral view. There is narrowing of the radioscaphoid articulation with subchondral sclerosis consistent with osteoarthritis. Small foci of increased density seen in the soft tissues adjacent to the radioscaphoid articulation, possibly calcium pyrophosphate crystal deposition (CPPD). Osteophytosis noted at the dorsal aspect of the wrist with loose osseous bodies in this region. Soft tissues: Mild edema noted in the region of the wrist. IMPRESSION: 1. 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 2. No acute fracture or dislocation. Dictated and Authenticated by: Ilsa Streeter MD. Ordering:BALDEMAR Rivera MD
[2022-08-13] MEDS: MEROPENEM 1 GM in Normal Saline 100 ML IVPB (20:39)
[2022-08-13] MEDS: Gabapentin 300 MG CAP PO (20:40)
[2022-08-13] MEDS: Docusate Sodium 100 MG CAP PO (20:40)
[2022-08-13] MEDS: Polyethylene Glycol 3350 17 GM PACKET PO (20:41)
[2022-08-13] MEDS: Budesonide/Formoterol 80/4.5 6.9 GM 60 PUFF INH IH (21:35)
[2022-08-13] MEDS: Lactated Ringers 1,000 ML 125 ML IV (21:36)
[2022-08-13] MEDS: Melatonin 3 MG TAB 9 MG PO (22:24)
[2022-08-14] MEDS: Acetaminophen 325 MG TAB PO ×4 (01:17→20:32)
[2022-08-14 02:43] VITALS: BP 108/57; PULSE 94; RESP 16; TEMP 35.4; O2SAT 91
[2022-08-14] MEDS: MEROPENEM 1 GM in Normal Saline 100 ML IVPB ×3 (03:30→20:34)
--- NOTE | 2022-08-14 06:16 | NUR.NOTE ---
Nursing Note: Pt is AAOX4, able to make needs known and appears to be stable ATT. @AROUND 0400 pt reported to this RN that she wants to stay here at the hospital and does not want to go home, as she does not feel safe at home and cannot take care of herself. This RN asked pt about his son and detention options but pt replied saying her son is hardly there and she does not want to go to the detention. Advised pt that care management will see her to discuss options with her. Pt reported same to all the LNAs.
[2022-08-14 06:22] LABS: Abs Immature Grans 0.05 10^3/uL (0.0-0.06); Absolute Basophil Count 0.05 10^3/uL (0.0-0.2); Absolute Lymphocyte Count 1.57 10^3/uL (1.2-3.4); Absolute Monocyte Count 0.52 10^3/uL (0.1-0.8); Absolute Neutrophil Count 6.12 10^3/uL (1.2-6.7); Basophils % 0.6; Eosinophils % 3.5; HCT 28.2 % (36.0-46.0); HGB 8.9 g/dL (11.2-15.7); Immature Grans % 0.6; Lymphocytes % 18.2; MCH 25.1 pg (27.0-33.0); MCHC 31.6 % (32.0-36.0); MCV 80 fL (80-95); MPV 11.7 fL (8.0-11.0); Neutrophils % 71.1; Platelet Count 207 10^3/uL (130-400); RBC 3.54 10^6/uL (3.93-5.22); RDW 15.8 % (11.7-14.6); RDW-SD 45.1 fL; WBC 8.61 10^3/uL (4.4-10.8)
[2022-08-14 06:44] LABS: ALT 14 U/L (14-59); AST 6 U/L (15-37); Albumin 2.9 g/dL (3.4-5.0); Alkaline Phosphatase 110 U/L (46-116); Anion Gap 7.3 mmol/L (3-11); BUN 37 mg/dL (7-18); Bilirubin, Total 0.3 mg/dL (0.2-1.0); CO2 26.7 mmol/L (21.0-32.0); CREATININE 1.3 mg/dL (0.55-1.02); Calcium 9.8 mg/dL (8.5-10.1); Chloride 100 mmol/L (98-107); Estimated GFR 44.79 (mL/min/1.73m2); Glucose 357 mg/dL (74-106); Magnesium 1.4 mg/dL (1.8-2.4); Potassium 4.1 mmol/L (3.5-5.1); Sodium 134 mmol/L (136-145); Total Protein 5.8 g/dL (6.4-8.2)
[2022-08-14 07:10] VITALS: BP 114/66; PULSE 103; RESP 17; TEMP 37.4; O2SAT 93
[2022-08-14] MEDS: Lactated Ringers 1,000 ML 125 ML IV ×2 (07:10→15:25)
[2022-08-14] MEDS: Budesonide/Formoterol 80/4.5 6.9 GM 60 PUFF INH IH ×2 (08:06→20:36)
[2022-08-14] MEDS: MAGNESIUM SULFATE 4 GM/100 ML BAG IVPB (08:14)
[2022-08-14] MEDS: Insulin Aspart 300 UNITS/3 ML PEN SC ×4 (08:15→22:23)
[2022-08-14] MEDS: metFORMIN C.R. 500 MG TABCR PO (08:18)
[2022-08-14] MEDS: Rosuvastatin 10 MG TAB PO (08:19)
[2022-08-14] MEDS: Levothyroxine 50 MCG TAB PO (08:22)
[2022-08-14] MEDS: Metoprolol CR 25 MG TABCR PO (08:22)
--- NOTE | 2022-08-14 08:22 | PDOC.CMIN ---
- If Service Date Differs Date of service: 08/14/22 Time of Service: 08:22 Care Management Initial Assess REASON FOR HOSPITALIZATION:: Uti PAST MEDICAL HISTORY/PAST SURGICAL HISTORY:: All Active Problems . Hyperglycemia (Acute). Bacterial UTI (Acute). Dark emesis (Acute). Acute UTI (Acute). Falls (Acute). Acute dehydration (Acute). Acute delirium (Acute). Eschar of toe (Acute ~05/2022). Cellulitis of toe of right foot (Acute ~05/2022). Nail dystrophy (Acute). Diabetic foot infection (Acute). Nail avulsion, toe (Acute). L great toe. Urge incontinence (Chronic). Declines RX briefs. Self-care deficit (Acute). Bedbound (Acute). gets up with WC to BR. Recurrent falls (Chronic). Difficulty transferring from bed to wheelchair (Chronic). DME hospital bed has helped. Difficulty transferring from toilet to wheelchair (Chronic). Steph investigating commode. Wheelchair bound (Chronic). no falls since starting using WC. permanent need. severe diabetic nephropathy. needs more adaptive equipment in the home. Cognitive attention deficit (Chronic). needs multiple repetitions of information. Diabetes type 2, uncontrolled (Chronic). though she has had education over the years, still seems not to understand carb counting. ideally needs someone to educate son as he buys her food. also needs hands-on teaching with nutrition labels, etc. Obesity (BMI 30-39.9) (Chronic). Noncompliance with medication regimen (Chronic). Nicotine dependence (Chronic). 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 Neuro work-up . 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 Ambulates with cane when out; walker at home. 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 Goal A1c < 7.5%. Schein, neuropathy; Charcot's foot 03/19/13. [employer]. Spinal stenosis of lumbar region with neurogenic claudication (Chronic 12/08/13). 04/13/2013 MRI Lumbar Spine: Facet arthropathy, DJD, L4-5, L5-S1 central spinal and neural foraminal stenosis. Neurosurgery referral, but not a surgical candidate. [facility] chronic pain service. Chronic Pain. [facility] consult 10/26/15. [facility] consult 03/04/17 (Sanket Sawant MD). Other and unspecified hyperlipidemia (Chronic 08/14/12). Esophageal reflux disease (Chronic 07/24/11). UPPER GI SERIES 11/14/2012, MOD HIATAL HERNIA SEVERE GERD. Coronary artery disease involving [place] coronary artery of [place] heart (Chronic). INFERIOR [place] 1996, 100% RCA occlusion; large inf defect on perfusion scan, dr Fair. Chronic kidney disease, stage III (moderate) (Chronic 08/14/12). Cortical atrophy R kidney on CT 07/2014; multiple cysts. Cardiomyopathy (Chronic). Dr Fair, EF 45% Jun 2014 ECHO (h/o much worse). 10/2016 ECHO: EF 40-45%. 10/2016 MPI: no acute, but persistent old infarct. COPD, mild (Chronic 07/02/17). PFTs. Abdominal aortic aneurysm (Chronic 11/27/12). Identified 10/31/12 CT abd-pelvis; 4cm; stable 4.1 cm 07/2014 CT, 4.3cm 11/2016, 5.5cm 03/04/17 ([facility]). not sure if it is worth following her AAA, as she is not surgical candidate. defer to PCP. Chronic back pain (Chronic). Lumbar spinal stenosis-->RX FENTANYL initiated inpt 12/2021; PCP rx'ing with [facility] under palliative conditions (pt cannot come in for OVs). Hypothyroidism (Chronic). Hypertension (Chronic). Marijuana dependence (Chronic). Daily use since 17yo-->helps with mood & pain. Medical History . Acute hyperglycemia. Anaerobic bacteremia. 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 Dr. Ward. Bacteremia due to Gram-positive bacteria. Calculus of kidney and ureter. Carpal tunnel syndrome (08/14/12). resolved s/p b/l release. Cellulitis of foot. Depressive disorder (08/14/12). DJD of left shoulder (01/01/13). Dr. Guerra. DJD of right shoulder (01/01/13). 12/2012 x-ray severe DJD glenohumeral joint. Dr. Guerra; not a surgical candidate for replacement. DNI (do not intubate). DNR (do not resuscitate). Encounter for hospice care. Episode of seizures in July 2012. Fall at home. Goals of care, counseling/discussion. DNR/DNI. COLST done. wants to stay home. may need new agent if/when Steph moves out of state as planned. Iron deficiency anemia. Mass of both parotid glands. Abnormal CT 08/2019. Mild pulmonary hypertension. Nausea and vomiting (08/01/14). a. previous history of possible marijuana induced hyperemesis. Osteoarthritis of left elbow. Palliative care patient. Perirectal abscess. With associated hospitalization 2019. POLST (Physician Orders for Life-Sustaining Treatment). signed 06/01/20. Pulmonary embolism (~12/2021). Never started anticoagulation. RLS (restless legs syndrome). Tinea corporis. Surgical History . Appendectomy. Childhood surgery, no date given by pt.HE. Hemiarthroplasty (06/13/15). Dr Guerra. R shoulder. History of carpal tunnel release of both wrists (~05/2012). Hx of umbilical hernia repair (09/06/15). Incarcerated umbilical hernia repair (09/06/15). Tonsillectomy. childhood surgery, no date given by pt.HE PREVIOUS FUNCTIONAL STATUS/SOCIAL/FAMILY SUPPORTS:: Carmel lives in a single family ranch style home in [place] with her adult son Ethan. He is her only child and she does not have any grandchildren. Carmel uses a wheelchair to get around her home and requires assistance with her ADLs. She has a [facility] personal care home administrator 5 times a week, a home health nurse, and a caseworker protective services (Clair Stiles) through [facility]. Ethan helps her with shopping and meal preparation but her instructional support assistant perform her personal care. CURRENT FUNCTIONAL STATUS:: Carmel was sitting up in bed when RADHA met with her. She was pleasant and agreeable to conversation. Carmel shared that she is no longer able to walk. She stated that she has developed (subjective) left sided weakness over the past couple of weeks which has made mobility even more challenging. RADHA asked if she would be willing to consider rehab but she declined. Carmel shared that she realizes that she needs more help than she has but is unwilling to go to a group home facility to get that help. When asked what the barrier was, she was unable to answer, saying I just don't know. Carmel did admit that IF she did go anywhere, it would have to be close by. She informed CM that they were trying to get her to go someplace in [place], [place]. She would only consider someplace local. CM asked about [facility]. Carmel reported that she has been there before and that it wasn't too bad. She then re-iterated that her plan at this time is to return home. She did request that she be allowed to stay at [facility] for a few days to get a little stronger. CM assured her that she would remain as long as she has a medical reason to be here. Currently Carmel's H&H is a bit low and she has evidence of a Uti. Cultures are pending. ADVANCE DIRECTIVES:: COLST on file, sister Steph Gonzales is appointed as Healthcare Agent. Has patient been provided with info about the portal/API?: Yes Did the patient sign up for the portal?: Yes (previously) CODE STATUS:: DNR/DNI INSURANCE COVERAGE / FINANCIAL ISSUES:: [employer] [place]. [employer] of [place] CURRENT HOME/COMMUNITY SERVICES/EQUIPMENT:: [employer] personal care home administrator, home health RN and caseworker protective services (Clair Stiles). She has a wheelchair, ramp, commode, grab bars and tub seat. She uses [facility] for transportation needs. PRIMARY CARE PHYSICIAN:: Mai Castelan POTENTIAL DISCHARGE NEEDS:: Possible placement in SNF for short term rehab. Follow up with PCP and plan of care PATIENT/FAMILY EDUCATION NEEDS:: Review of discharge instructions, limitations, activity, follow up plan, discuss Ask Me Three. ANTICIPATED BARRIERS TO DISCHARGE:: patient's willingness to accept short term rehab services TRANSPORTATION:: to be determined by disposition PLAN:: Anticipate efforts will be made by community agencies to have Carmel placed in a short or director long term care rehab facility as they do not feel she is safe at home. Up until now, Carmel has refused to transfer to a SNF and has been deemed competent to make that decision. CM will follow and support Carmel and assess for ongoing discharge concerns.
[2022-08-14] MEDS: Gabapentin 300 MG CAP PO ×2 (08:23→20:35)
[2022-08-14] MEDS: Pantoprazole 40 MG VIAL IVP ×2 (08:25→20:33)
[2022-08-14] MEDS: Nicotine 14 MG/24 HR PATCH TD (08:26)
[2022-08-14] MEDS: Normal Saline Flush 10 ML SYR IVP ×2 (08:32→12:39)
[2022-08-14] MEDS: Insulin Glargine 300 UNITS/3 ML PEN 40 UNITS SC (08:37)
--- NOTE | 2022-08-14 10:18 | IN_ITS ---
PT Notes Visit Reasons: UTI; Hyperglycemia Inpatient Physical Therapy Evaluation Date: 08/14/22 Referring Doctor: Nicole Graham NP PT Orders: PT CONSULT: eval and treat Precautions: standard Patient Profile/Admitting Diagnosis: Patient admitted 08/13/22 for dehydration, after presenting to the ED for the fifth time in a month for falls at home. Most recent hospitalization was 08/10/22. PMHX: All Active Problems? Hyperglycemia (Acute) Bacterial UTI (Acute) Dark emesis (Acute) Acute UTI (Acute) Falls (Acute) Acute dehydration (Acute) Acute delirium (Acute) Eschar of toe (Acute ~05/2022) Cellulitis of toe of right foot (Acute ~05/2022) Nail dystrophy (Acute) Diabetic foot infection (Acute) Nail avulsion, toe (Acute) L great toeUrge incontinence (Chronic) Declines RX briefsSelf-care deficit (Acute) Bedbound (Acute) gets up with WC to BRRecurrent falls (Chronic) Difficulty transferring from bed to wheelchair (Chronic) DME hospital bed has helpedDifficulty transferring from toilet to wheelchair (Chronic) Steph investigating commode Wheelchair bound (Chronic) no falls since starting using WC permanent need severe diabetic nephropathy needs more adaptive equipment in the homeCognitive attention deficit (Chronic) needs multiple repetitions of informationDiabetes type 2, uncontrolled (Chronic) though she has had education over the years, still seems not to understand carb counting ideally needs someone to educate son as he buys her food also needs hands-on teaching with nutrition labels, etc.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 neuropathy; Charcot's foot 03/19/13 [employer] Spinal stenosis of lumbar region with neurogenic claudication (Chronic 12/08/13) 04/13/2013 MRI Lumbar Spine: Facet arthropathy, DJD, L4-5, L5-S1 central spinal and neural foraminal stenosis Neurosurgery referral, but not a surgical candidate [facility] chronic pain service Chronic Pain [facility] Pain Center consult 10/26/15 [facility] consult 03/04/17 (Sanket Sawant MD) Other and unspecified hyperlipidemia (Chronic 08/14/12) Esophageal reflux disease (Chronic 07/24/11) UPPER GI SERIES 11/14/2012, MOD HIATAL HERNIA ? SEVERE GERD Coronary artery disease involving [place] coronary artery of [place] heart (Chronic) INFERIOR [place] 1996, 100% RCA occlusion; large inf defect on perfusion scan, dr Fair Chronic kidney disease, stage III (moderate) (Chronic 08/14/12) Cortical atrophy R kidney on CT 07/2014; multiple cysts Cardiomyopathy (Chronic) Dr Fair, EF 45% Jun 2014 ECHO (h/o much worse) 10/2016 ECHO: EF 40-45% 10/2016 MPI: no acute, but persistent old infarct COPD, mild (Chronic 07/02/17) PFTs Abdominal aortic aneurysm (Chronic 11/27/12) Identified 10/31/12 CT abd-pelvis; 4cm; stable 4.1 cm 07/2014 CT, 4.3cm 11/2016, 5.5cm 03/04/17 ([facility] not sure if it is worth following her AAA, as she is not surgical candidate defer to PCPChronic back pain (Chronic) Lumbar spinal stenosis-->RX FENTANYL initiated inpt 12/2021; PCP rx'ing with [facility] under palliative conditions (pt cannot come in for OVs)Hypothyroidism (Chronic) Hypertension (Chronic) Marijuana dependence (Chronic) Daily use since 17yo-->helps with mood & pain Medical History? 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 GuerraDJD of right shoulder (01/01/13) 12/2012 x-ray severe DJD glenohumeral joint Dr. Guerra; not a surgical candidate for replacement DNI (do not intubate) DNR (do not resuscitate) Encounter for hospice care Episode of seizures in July 2012 Fall at home Goals of care, counseling/discussion DNR/DNI COLST done wants to stay home may need new agent if/when Steph moves out of state as plannedIron deficiency anemia Mass of both parotid glands Abnormal CT 08/2019Mild pulmonary hypertension Nausea and vomiting (08/01/14) a. previous history of possible marijuana induced hyperemesisOsteoarthritis of left elbow Palliative care patient Perirectal abscess With associated hospitalization 2019POLST (Physician Orders for Life-Sustaining Treatment) signed 06/01/20Pulmonary embolism (~12/2021) Never started anticoagulationRLS (restless legs syndrome) Tinea corporis Social History/Home Situation: Patient lives in a private home with her son, and has caregivers who assist intermittently. She is home alone quite a bit per her report. Falls almost daily during transfers. Current Functional Limitations: Bed and wheelchair bound. Transfers with assistance when available, independently when necessary. Equipment Owned/DME: manual w/c Subjective: Lisa states that she is very anxious to return home. She is nervous about how she'll get there and how much help she'll have when she arrives. Admits that transfers are becoming more difficult for her, and she is more fearful of falling after a fall that left her on the floor for several hours. Objective: General Observation: Resting in bed, propped with pillows due to left trunk lean. IV in LUE and Hartley catheter in place. Mental Status: A&Ox3. Provides repetitive history. Pain: denies ROM: Right Upper Extremity: Shoulder flexion to 135. Shoulder ER to 45*. Elbow motion grossly WFL. Left Upper Extremity: Shoulder flexion to 135. Shoulder ER to 45*. Elbow motion grossly WFL. Right Lower Extremity: Grossly WFL Left Lower Extremity: Grossly WFL Strength: Right Upper Extremity: Shoulder flexion 3/5. Triceps 3/5. Biceps 3/5. Left Upper Extremity: Shoulder flexion 3-/5. Shoulder ER 3-/5. Triceps 3-/5. Biceps 3/5. Right Lower Extremity: Functionally able to perform active SLR, active hip AD and AB. Left Lower Extremity: Requires mod A for SLR, hip AB and hip AD. Bed Mobility/Transfers: supine-sit: max A sit-supine: max A scooting in bed: max A x 2 Gait: unable Balance: Static Sitting: poor- requires max A at the trunk Dynamic Sitting: unable Static Standing: unable Dynamic Standing: unable Special Tests: Mobility Limitations Standardized Measure [facility] AM-PAC 6 clicks Basic Mobility Inpatient Short Form: Raw Score: 10 CMS Score: 77% impairment Informed Consent/Education: Patient instructed in purpose of PT consult and plan of care. Assessment: Patient is a 67 year old non-ambulatory female referred to physical therapy services for evaluation and treatment. Patient presents with extremely limited mobility and UE/LE weakness, with history of near-daily falls at home and increasing frequency of hospitalization. She requires skilled PT intervention to maximize strength and mobilty, and is not safe for return home at this time, as supported by low AM-PAC scores. Discussed SNF with her at time of consult, which she states she will consider; discussed with Care Management who will lead that conversation with Lisa. She currently demonstrates the following impairment level findings: 1. Decreased UE strength 2. decreased LE strength 3. decreased activity tolerance 4. h/o frequent falls 5. non-ambulatory Impairments are contributing to the following functional limitations: 1. unable to perform bed mobility independently 2. unable to transfer independently 3. unable to ambulate Patient is assessed as Moderate 12699 complexity based on the following: History: Patient is a 67 year old non-ambulatory female with h/o of frequent falls, presenting with severe limitations in mobility. Multiple co-morbidities, as listed above, and safety concerns surrounding patient's desire to return home. Examination: functional limitations as noted above Presentation:evolving Decision Making: moderate complexity Goals: Goals X1 week 1. Supine-Sit: min A 2. Sit-Supine : min A 3. Sit-Stand : min A 4. Stand-Sit : min A 5. Bed-Chair : min A 6. Chair-Bed : min A Plan of Care/Treatment Plan: 1-2x/day, 7 days/week x 1 week. Plan of care has been reviewed with the VICE PRESIDENT & GENERAL MANAGER [employer] providing the service under Physical Therapy direction. Initiate Physical Therapy intervention for strengthening, bed mobility, transfers, gait, stairs, balance training, use of assistive device. DISCHARGE RECOMMENDATIONS: SNF vs LTC for continued rehabilitation TREATMENT CODE/TIME: 9:45 - 10:15 ([id number]) Judith Cruz, PT, DPT [facility]
[2022-08-14 11:18] VITALS: BP 150/82; PULSE 96; RESP 16; TEMP 36.8; O2SAT 93
[2022-08-14 12:29] LABS: HCT 30.6 % (36.0-46.0); HGB 9.6 g/dL (11.2-15.7)
[2022-08-14] MEDS: Sucralfate 1 GM TAB PO ×3 (12:37→22:24)
--- NOTE | 2022-08-14 13:41 | PGE_ITS ---
Date of Service Date of service: 08/14/22 Time of Service: 13:41 Assessment and Plan Assessment and plan (1) Fall: Status: Deleted Assessment and plan: Multiple fall, calls 911 almost daily as reported by EMS. No injuries. Difficulty with staying independent and declining mobility. PT consult (2) Acute UTI: Status: Acute Assessment and plan: Positive urine; UC pending, last UTI urine cx klebsiella oxytoca; Meropenem (3) Acute dehydration: Status: Acute Assessment and plan: Oral fluids IVF discontinued (4) Diabetes type 2, uncontrolled: Status: Chronic Assessment and plan: continue current diabetes management as controlled well here A1C 12.4 06/04 Qualifiers: Glycemic state: with hyperglycemia Qualified Code(s): E11.65 - Type 2 diabetes mellitus with hyperglycemia (5) Nicotine dependence: Status: Chronic Assessment and plan: NicoDerm patch Qualifiers: Nicotine product type: cigarettes Substance use status: uncomplicated Qualified Code(s): F17.210 - Nicotine dependence, cigarettes, uncomplicated (6) COPD, mild: Status: Chronic Assessment and plan: Continue her Symbicort; no acute exacerbation of her COPD. Continue nicotine replacement with transdermal nicotine. (7) Chronic kidney disease, stage III (moderate): Status: Chronic Assessment and plan: Monitor renal function avoid nephrotoxins. Qualifiers: Chronic kidney disease stage 3 subtype: unspecified whether 3a or 3b Qualified Code(s): N18.30 - Chronic kidney disease, stage 3 unspecified (8) Coronary artery disease involving [place] coronary artery of [place] heart: Status: Chronic Assessment and plan: Continue rosuvastatin (9) Hypertension: Status: Chronic Assessment and plan: blood pressure controlled Qualifiers: Hypertension type: essential hypertension Qualified Code(s): I10 - Essential (primary) hypertension (10) Hypothyroidism: Status: Chronic Assessment and plan: Continue current levothyroxine. (11) DVT prophylaxis: Status: Deleted Assessment and plan: enoxaparin daily (12) Discharge planning issues: Status: Deleted Assessment and plan: will discharge home +/- home health services - possibly short rehab stay if agreeable - when medically ready discussed with Dr López Subjective Subjective Patient reports: no new complaints, tolerating a regular diet, voiding w/o difficulty (indwelling urinary catheter) and afebrile; denies diarrhea, vomiting or shortness of breath Exam Const General: cooperative Orientation: alert, awake, oriented to person, oriented to place and confused [facility] Mouth: mucous membranes dry Eyes Conjunctivae: normal conjunctivae Sclera: normal sclerae Neck Neck: trachea midline and supple Resp Auscultation: clear to auscultation bilaterally, no rales, no rhonchi and no wheezes Cardio Rate: tachycardic Rhythm: regular rhythm Heart Sounds: murmur GI Palpation: soft, not firm, no guarding, no masses, not rigid and nontender Other: indwelling jerez Skin General skin exam: no rashes or lesions noted Neuro General: patient alert, patient awake and tone abnormal Cognition: abnormal cognition (some confusion, poor historian) Speech: abnormal speech slurred Motor: other (strength 4/5 RUE, RLE; 3/5 LUE, RLE) Sensory Exam: no sensory deficits noted Extrem General: no edema Psych Appearance: grossly normal Affect: other (flat) Objective Last Vital Signs Temp 36.8 C 08/14/22 11:18 Pulse 96 H 08/14/22 11:18 Resp 16 08/14/22 11:18 BP 150/82 H 08/14/22 11:18 Pulse Ox 93 08/14/22 11:18 Laboratory Results - last 24 hr 08/13/22 08/14/22 08/14/22 14:43 05:15 05:15 WBC 8.61 RBC 3.54 L Hgb 8.9 L D Hct 28.2 L MCV 80 MCH 25.1 L MCHC 31.6 L RDW 15.8 H Plt Count 207 MPV 11.7 H Immature Gran % 0.6 Neutrophils % 71.1 Lymphocytes % 18.2 Monocytes % 6.0 Eosinophils % 3.5 Basophils % 0.6 Nucleated RBC % 0.0 Absolute Neutrophils 6.12 Absolute Lymphocytes 1.57 Absolute Monocytes 0.52 Absolute Eosinophils 0.30 Absolute Basophils 0.05 Sodium 134 L Potassium 4.1 Chloride 100 Carbon Dioxide 26.7 Anion Gap 7.3 BUN 37 H Creatinine 1.3 H Est GFR (CKD-EPI 2020) 44.79 Glucose 357 H Calcium 9.8 Magnesium 1.4 L Total Bilirubin 0.3 AST 6 L ALT 14 Alkaline Phosphatase 110 Troponin I < 50 Total Protein 5.8 L Albumin 2.9 L 08/14/22 12:15 WBC RBC Hgb 9.6 L Hct 30.6 L MCV MCH MCHC RDW Plt Count MPV Immature Gran % Neutrophils % Lymphocytes % Monocytes % Eosinophils % Basophils % Nucleated RBC % Absolute Neutrophils Absolute Lymphocytes Absolute Monocytes Absolute Eosinophils Absolute Basophils Sodium Potassium Chloride Carbon Dioxide Anion Gap BUN Creatinine Est GFR (CKD-EPI 2020) Glucose Calcium Magnesium Total Bilirubin AST ALT Alkaline Phosphatase Troponin I Total Protein Albumin Time Spent with Patient Time Spent with Patient: 25-34 minutes Time was spent: preparing to see the patient(eg.review tests), ordering medications,tests, procedures, referring, communicating with other health family day care provider, indepentently interpreting results, counseling the patient and care coordination
--- NOTE | 2022-08-14 14:42 | PCPN_ITS ---
Date of service: 08/14/22 Time of Service: 14:00 Assessment and Plan Assessment and plan (1) Bacterial UTI: Status: Acute (2) Falls: Status: Acute (3) Self-care deficit: Status: Acute (4) Bedbound: Status: Acute (5) Difficulty transferring from bed to wheelchair: Status: Chronic (6) Difficulty transferring from toilet to wheelchair: Status: Chronic (7) Obesity (BMI 30-39.9): Status: Chronic (8) Noncompliance with medication regimen: Status: Chronic (9) Goals of care, counseling/discussion: (10) Palliative care patient: Assessment and plan: PC to continue to follow throughout inpatient stay, plan for f/u Wed 08/15 - reviewed w/Lisa importance of remaining in hospital while medical need still e xists, concerns for not being safe at home, no caregiver plan in place, need for returning to hospital and repeat this cycle; Lisa agrees to remain in hospital at this time - reviewed attitude and interactions w/staff, importance of starting off fresh w/interactions w/all staff and not holding grudges; Lisa agrees and sees that her attitude - need for home health patient care director plan in place prior to discharge home - needs more coverage that has been available previously Subjective Subjective Interval history since last seen: Lisa is feeling better today compared to yesterday. She is frustrated w/only receiving liquids and limited food, she states this is bc they are wanting her to move her bowels, which she has not. reports pain in back/legs, worse when in recliner, mary ann for longer periods of time she is thinking about signing herself out AMA tomorrow due to the way she feels staff is treating her. She feels they are being condescending, neglectful, and rude. She states that she thinks she is the problem, aware that her attitude influences with a treat her, that she should try the nicer. She is aware that she is not ready to return home safely, while she thinks she could care for self, she is aware she needs help. Current home health needs previously did not meet demand, at this time while she is feeling weaker the decreased services will put her at risk for needing to return to the hospital again. Exam Narrative Exam Narrative: General: older female, chronically ill appearing; lying in bed throughout visit; hygiene improved compared to yesterday HEENT: normocephalic, atraumatic, hearing WNL Resp: even, unlabored, speaks full sentences w/no SOB; no wheezing or cough noted Skin: scattered scratches and bruises noted on forearms; Neuro: awake, alert, oriented to person & place; Psych: cooperative, fatigued, impoverished, tangential, judgment limited, insight poor Objective Last Vital Signs Temp 98.2 F 08/14/22 11:18 Pulse 96 H 08/14/22 11:18 Resp 16 08/14/22 11:18 BP 150/82 H 08/14/22 11:18 Pulse Ox 93 08/14/22 11:18 Laboratory Results - last 24 hr 08/13/22 08/14/22 08/14/22 14:43 05:15 05:15 WBC 8.61 RBC 3.54 L Hgb 8.9 L D Hct 28.2 L MCV 80 MCH 25.1 L MCHC 31.6 L RDW 15.8 H Plt Count 207 MPV 11.7 H Immature Gran % 0.6 Neutrophils % 71.1 Lymphocytes % 18.2 Monocytes % 6.0 Eosinophils % 3.5 Basophils % 0.6 Nucleated RBC % 0.0 Absolute Neutrophils 6.12 Absolute Lymphocytes 1.57 Absolute Monocytes 0.52 Absolute Eosinophils 0.30 Absolute Basophils 0.05 Sodium 134 L Potassium 4.1 Chloride 100 Carbon Dioxide 26.7 Anion Gap 7.3 BUN 37 H Creatinine 1.3 H Est GFR (CKD-EPI 2020) 44.79 Glucose 357 H Calcium 9.8 Magnesium 1.4 L Total Bilirubin 0.3 AST 6 L ALT 14 Alkaline Phosphatase 110 Troponin I < 50 Total Protein 5.8 L Albumin 2.9 L 08/14/22 12:15 WBC RBC Hgb 9.6 L Hct 30.6 L MCV MCH MCHC RDW Plt Count MPV Immature Gran % Neutrophils % Lymphocytes % Monocytes % Eosinophils % Basophils % Nucleated RBC % Absolute Neutrophils Absolute Lymphocytes Absolute Monocytes Absolute Eosinophils Absolute Basophils Sodium Potassium Chloride Carbon Dioxide Anion Gap BUN Creatinine Est GFR (CKD-EPI 2020) Glucose Calcium Magnesium Total Bilirubin AST ALT Alkaline Phosphatase Troponin I Total Protein Albumin
[2022-08-14 15:19] VITALS: BP 118/71; PULSE 88; RESP 17; TEMP 36.7; O2SAT 95
[2022-08-14] MEDS: Mylanta Suspension 30 ML CUP PO (15:29)
--- NOTE | 2022-08-14 15:55 | CHAPLAIN ---
Carmel was in bed watching tv when I visited. She told me that she is not quite an atheist, but but similar to that. We talked a bit about how people believe different thinks. She said it's not likely that I would believe some of what she believes. I assured her that was okay with me. She was trying to find a show on tv that she has been watching and asked me if I'd seen anything about the Trump indictment in [facility] today and shared her views on Trump. Carmel said she didn't feel much like talking today and I said I would stop in tomorrow.
[2022-08-14 19:04] VITALS: BP 106/57; PULSE 71; RESP 17; TEMP 36.1; O2SAT 96
[2022-08-14] MEDS: Docusate Sodium 100 MG CAP PO (20:33)
[2022-08-14] MEDS: Polyethylene Glycol 3350 17 GM PACKET PO (20:34)
[2022-08-14] MEDS: Melatonin 3 MG TAB 9 MG PO (22:24)
[2022-08-14 22:57] VITALS: BP 104/48; PULSE 67; RESP 16; TEMP 36.7; O2SAT 96
[2022-08-15] VITALS (8 sets, daily range): BP systolic 81–123; BP diastolic 43–70; PULSE 65–87; RESP 16–20; TEMP 35.9–36.7; O2SAT 95–98
[2022-08-15] MEDS: MEROPENEM 1 GM in Normal Saline 100 ML IVPB ×3 (03:55→19:22)
[2022-08-15] MEDS: Acetaminophen 325 MG TAB PO ×3 (03:55→13:48)
[2022-08-15 06:37] LABS: Abs Immature Grans 0.04 10^3/uL (0.0-0.06); Absolute Basophil Count 0.05 10^3/uL (0.0-0.2); Absolute Eosinophil Count 0.32 10^3/uL (0.0-0.7); Absolute Lymphocyte Count 1.58 10^3/uL (1.2-3.4); Absolute Monocyte Count 0.45 10^3/uL (0.1-0.8); Absolute Neutrophil Count 4.53 10^3/uL (1.2-6.7); Basophils % 0.7; Eosinophils % 4.6; HCT 27.2 % (36.0-46.0); HGB 8.4 g/dL (11.2-15.7); Immature Grans % 0.6; Lymphocytes % 22.7; MCH 24.6 pg (27.0-33.0); MCHC 30.9 % (32.0-36.0); MCV 80 fL (80-95); MPV 11.6 fL (8.0-11.0); Monocytes % 6.5; Neutrophils % 64.9; Platelet Count 197 10^3/uL (130-400); RBC 3.41 10^6/uL (3.93-5.22); RDW 15.8 % (11.7-14.6); RDW-SD 45.3 fL; WBC 6.97 10^3/uL (4.4-10.8)
[2022-08-15 07:16] LABS: Anion Gap 6.4 mmol/L (3-11); BUN 21 mg/dL (7-18); CO2 26.6 mmol/L (21.0-32.0); CREATININE 0.9 mg/dL (0.55-1.02); Calcium 9.6 mg/dL (8.5-10.1); Chloride 104 mmol/L (98-107); Estimated GFR 69.64 (mL/min/1.73m2); Glucose 223 mg/dL (74-106); Magnesium 1.8 mg/dL (1.8-2.4); Potassium 4.3 mmol/L (3.5-5.1); Sodium 137 mmol/L (136-145)
[2022-08-15] MEDS: Budesonide/Formoterol 80/4.5 6.9 GM 60 PUFF INH IH ×2 (07:30→19:22)
--- NOTE | 2022-08-15 08:44 | PDOC.CMPRO ---
- If Service Date Differs Date of service: 08/15/22 Time of Service: 08:44 Care Management Progress Note S/O:Lisa was sitting up in a chair eating dinner when CM met with her. She admitted that she is feeling better today. Per staff, they have created a structured environment for her with limits and she has responded well to this approach. CM masked again if Lisa would be willing to consider a SNF placement for short term rehab but she stated that her plan remains to go home. CM informed her that she has heard from several community agencies who have expressed concern about her safety and she seemed pleased that they had reached out. A community care team has been meeting frequently to discuss their concerns and try to identify someone, likely a family member, who would be willing to petition for guardianship. Efforts are underway to schedule another meeting prior to discharge however, [facility] who coordinates the meetings, is unable to do so as Lisa is in the hospital. A:Lisa is a 67 year old woman admitted on 08/13/22 with weakness P:Anticipate efforts will be made by community agencies to have Carmel placed in a short or retirement rehab facility as they do not feel she is safe at home. Up until now, Carmel has refused to transfer to a SNF and has been deemed competent to make that decision. CM will follow and support Carmel and assess for ongoing discharge concerns.
[2022-08-15] MEDS: Pantoprazole 40 MG VIAL IVP ×2 (08:58→19:21)
[2022-08-15] MEDS: Metoprolol CR 25 MG TABCR PO (08:58)
[2022-08-15] MEDS: Rosuvastatin 10 MG TAB PO (08:59)
[2022-08-15] MEDS: Levothyroxine 50 MCG TAB PO (08:59)
[2022-08-15] MEDS: Docusate Sodium 100 MG CAP PO (08:59)
[2022-08-15] MEDS: Gabapentin 300 MG CAP PO ×2 (08:59→19:21)
[2022-08-15] MEDS: metFORMIN C.R. 500 MG TABCR PO (08:59)
[2022-08-15] MEDS: Polyethylene Glycol 3350 17 GM PACKET PO (09:00)
[2022-08-15] MEDS: Nicotine 14 MG/24 HR PATCH TD (09:00)
[2022-08-15] MEDS: Insulin Aspart 300 UNITS/3 ML PEN SC ×4 (09:00→21:39)
[2022-08-15] MEDS: Sucralfate 1 GM TAB PO ×4 (09:00→21:40)
[2022-08-15] MEDS: Insulin Glargine 300 UNITS/3 ML PEN 40 UNITS SC (09:01)
--- NOTE | 2022-08-15 10:20 | NUR.NOTE ---
Patient sitting up in bed and reports that she called her primary care doctor to report that she feels like hurting herself. When further questioned patient reveals she does not have a plan for hurting herself. States she would not want to leave her son. Does report that she is frustrated with being here at the hospital. Frequently stating she will be leaving ama tomorrow. Patient's statements of self harm reported to charge nurse, Celestina. Nursing Note:
--- NOTE | 2022-08-15 13:51 | PT.INTREAT ---
Date of service: 08/15/22 Time of Service: 11:30 PT Notes Visit Reasons: UTI; Hyperglycemia Inpatient Physical Therapy Treatment Note [facility] Date: 08/15/2022 SUBJECTIVE: Carmel reports that she is willing to get out of bed and attempt to utilize the commode. She states that she does not want to be in the hospital, and that she is agreeable to going to a SNF for rehab. OBJECTIVE: Pain: No c/o pain BED MOBILITY/TRANSFERS Rolling: Min A Supine-sit: Max A x2 Sit-stand: Max A x2 with FWW Mod A x2 with STEDY Stand-sit: Max A x2 with FWW Min A + CGA with STEDY Bed-Chair: STEDY GAIT: Unable ASSESSMENT: Patient tolerated session with complaint of increased fatigue with all activity. She requires Mod A x2 - Max A x2 for all bed mobility and transfers at this time. She is unable to participate in gait training nor stand-pivot transfers at this time due to weakness. PLAN: Continue with global strengthening and general conditioning for improved activity tolerance and mobility. TREATMENT CODE/TIME: Session 1: Refused Session 2: 15 minutes; [id number] (11:30)
--- NOTE | 2022-08-15 14:40 | PDOC.MHCN_ITS ---
Date of service: 08/15/22 Time of Service: 12:14 Suicide Severity Rate CSSRS Have you wished you were or wished you could go to sleep and not wake up?: Yes Have you actually had any thoughts of killing yourself?: Yes CSSRS2 Have you been thinking about how you might do this?: No Have you had these thoughts and had some intention of acting on them?: No Have you started to work out or worked out the details of how to kill yourself? Do you intend to carry out this plan?: No CSSRS3 Have you ever done anything, started to do anything or prepared to do anything to end your life?: No Screening Score Total Score: 4 Screening: Positive Mental Health Emergency Note Release [facility] release signed:: No Reason for Visit [facility] ES received incoming call from Angelita Huber, requesting for client to be screened due to SI statements client made earlier today. In the last 2 weeks has the pt presented for ES prior to today?: No Client Information Client is: New (Client is unknown to [facility]. Client refused to complete intake paperwork with this principal technical writer. Client declined all services provided by [facility].) Well Housed: Yes Non Suicidal Self Injury Current: No History: No Safety Risk/Harm to Self or Others Current Ideation to Harm Self or Others: Yes to others. (Client denies currently endorsing SI. Client denies intent/plan. Client reports calling her PCP office this am and speaking to a nurse. Client states, I told the nurse I wished I was , but I am not going to do anything. Client reports currently endorsing thoughts of wanting to harm this principal technical writer) Intent: No Plan: no, does not have a plan. History of becoming violent with another person(any age): no history of violence with others. Risk: Does risk to harm exist?: No Risk: Low Risk Asssessment/Mental Status Appearance: Disheveled Attitude: Guarded (Client was limited in engaging with this principal technical writer. In addition, Client was selective in what questions she would answer when asked by this principal technical writer) and Hostile Behavior: Unremarkable Speech: Soft Affect: Flat Mood: Irritable and Angry Thought process: Unremarkable Hallucinations: No evidence Delusions: No evidence Attention: Unremarkable Perception: Not impaired Orientation: Fully orientated Memory: Intact Insight: Fair Judgement: Fair Neurovegetative Symptoms Sleep: Decrease Appetitie: Decrease Interests: No change (unable to assess due to client refusing to answer any additional questions.) Energy: No change (unable to assess due to client refusing to answer any additional questions.) Libido: Not applicable Substance Use: Other (unable to assess due to client refusing to answer any additional questions.) Drug Issues: Other (unable to assess due to client refusing to answer any additional questions.) Impression Client is unknown to [facility]; however, client refused to complete intake paperwork with this principal technical writer. Client is a 67 yr old female, who resides in [place], [place] with her adult son. It should be noted client was extremely guarded and hesitant in responding to this principal technical writer's questions. Client was limited in willingness to engage in conversation with this principal technical writer. In response to this principal technical writer entering hospital room, client states, what do you want, if you have questions you need to ask, ask them quickly. Client denies currently endorsing SI. Client denies intent/plan. Client reports making suicidal statements this am; client states, I used the phone in my room to call my PCP and told them I wished I was . When asked what led client to make that direct statement, client reports, I was experiencing pain in my hip. Client reports no plan/intent on acting on her thoughts and does not wish to end her life by suicide. It should be noted, when client was asked follow-up questions pertaining to SI, client reports, I am done answering your questions, I already answered that, you are not listening to me. I am no longer having thoughts of wanting to harm myself, I am now having thoughts of wanting to harm you. When this principal technical writer asked for clarification on what client's thoughts consisted of client states, I wish you would just go away, and if not I want to break your pen in half. Client denies intent on acting on her thoughts. Currently, client does not present as a risk to herself. Plan/Disposition Recommended Disposition: Other (Client refused MH services). Plan: Client refused MH servies -- Client declined to complete intake, in addition to, engaging in any services provided through [facility]. Client declined developing a proactive safety plan. Person reported agreement to plan: Yes Reports/communication Outcome discussed with: ED/Personnel (Prior to screening client, this principal technical writer gained collateral information from client's attending nurse Gwen Larkin. Law reports, client is frequently at [facility] and has had 3-4 admissions within the past month. After screening was complete, this principal technical writer spoke with assigned CM Angelita Lo )
--- NOTE | 2022-08-15 15:03 | W.PM.PROGNOT ---
Date of Service Date of service: 08/15/22 Time of Service: 15:04 Assessment and Plan Assessment and plan (1) Fall: Status: Deleted Assessment and plan: Multiple fall, calls 911 almost daily as reported by EMS. No injuries. Difficulty with staying independent and declining mobility. PT consult (2) Low hemoglobin: Status: Acute Assessment and plan: H/H 01/06 - hematest neg - Previous iron studies low; will recheck, may benefit from iron infusion (3) Acute UTI: Status: Acute Assessment and plan: Positive urine; UC pending, last UTI urine cx klebsiella oxytoca; Meropenem Catheter was changed (4) Acute dehydration: Status: Acute Assessment and plan: Continue oral fluids, she has full diet now (5) Diabetes type 2, uncontrolled: Status: Chronic Assessment and plan: continue current diabetes management as controlled well here A1C 12.4 06/04 Qualifiers: Glycemic state: with hyperglycemia Qualified Code(s): E11.65 - Type 2 diabetes mellitus with hyperglycemia (6) Nicotine dependence: Status: Chronic Assessment and plan: NicoDerm patch Qualifiers: Nicotine product type: cigarettes Substance use status: uncomplicated Qualified Code(s): F17.210 - Nicotine dependence, cigarettes, uncomplicated (7) COPD, mild: Status: Chronic Assessment and plan: Continue her Symbicort; no acute exacerbation of her COPD. Continue nicotine replacement with transdermal nicotine. (8) Chronic kidney disease, stage III (moderate): Status: Chronic Assessment and plan: Monitor renal function avoid nephrotoxins. Qualifiers: Chronic kidney disease stage 3 subtype: unspecified whether 3a or 3b Qualified Code(s): N18.30 - Chronic kidney disease, stage 3 unspecified (9) Coronary artery disease involving [place] coronary artery of [place] heart: Status: Chronic Assessment and plan: Continue rosuvastatin (10) Hypertension: Status: Chronic Assessment and plan: blood pressure controlled Qualifiers: Hypertension type: essential hypertension Qualified Code(s): I10 - Essential (primary) hypertension (11) Hypothyroidism: Status: Chronic Assessment and plan: Continue current levothyroxine. (12) DVT prophylaxis: Status: Deleted Assessment and plan: enoxaparin daily (13) Discharge planning issues: Status: Deleted Assessment and plan: will discharge home +/- home health services - possibly short rehab stay if agreeable - when medically ready discussed with Dr Espino Subjective Subjective Patient reports: no new complaints, feels better, tolerating a regular diet and afebrile; denies diarrhea, blood in stool, nausea or vomiting Interval history since last seen: Improved, however yelling at staff. She refuses to bath/shower, will not get on the commode, only will use a bedpan. Denies BM since arrival. States she would like to go home. Advised her she could, she is her own person and has capacity. Recommended she did not, and she has not yet left. Asked to be respectful of staff. Exam Const General: cooperative Orientation: alert, awake, oriented to person, oriented to place and confused [facility] Mouth: mucous membranes dry Eyes Conjunctivae: normal conjunctivae Sclera: normal sclerae Neck Neck: trachea midline and supple Resp Auscultation: clear to auscultation bilaterally, no rales, no rhonchi and no wheezes Cardio Rate: tachycardic Rhythm: regular rhythm Heart Sounds: murmur GI Palpation: soft, not firm, no guarding, no masses, not rigid and nontender Other: indwelling jerez Skin General skin exam: no rashes or lesions noted Neuro General: patient alert, patient awake and tone abnormal Cognition: abnormal cognition (some confusion, poor historian) Speech: abnormal speech slurred Motor: other (strength 4/5 RUE, RLE; 3/5 LUE, RLE) Sensory Exam: no sensory deficits noted Extrem General: no edema Psych Appearance: grossly normal Affect: other (flat) Objective Last Vital Signs Temp 36.3 C L 08/15/22 14:45 Pulse 65 08/15/22 14:45 Resp 20 08/15/22 14:45 BP 81/43 L 08/15/22 14:45 Pulse Ox 96 08/15/22 14:45 Laboratory Results - last 24 hr 08/15/22 08/15/22 06:06 06:06 WBC 6.97 RBC 3.41 L Hgb 8.4 L Hct 27.2 L MCV 80 MCH 24.6 L MCHC 30.9 L RDW 15.8 H Plt Count 197 MPV 11.6 H Immature Gran % 0.6 Neutrophils % 64.9 Lymphocytes % 22.7 Monocytes % 6.5 Eosinophils % 4.6 Basophils % 0.7 Nucleated RBC % 0.0 Absolute Neutrophils 4.53 Absolute Lymphocytes 1.58 Absolute Monocytes 0.45 Absolute Eosinophils 0.32 Absolute Basophils 0.05 Sodium 137 Potassium 4.3 Chloride 104 Carbon Dioxide 26.6 Anion Gap 6.4 BUN 21 H Creatinine 0.9 Est GFR (CKD-EPI 2020) 69.64 Glucose 223 H Calcium 9.6 Magnesium 1.8 Time Spent with Patient Time Spent with Patient: 25-34 minutes Time was spent: preparing to see the patient(eg.review tests), ordering medications,tests, procedures, referring, communicating with other health acute care physical therapist, indepentently interpreting results, counseling the patient and care coordination
[2022-08-15] MEDS: Bisacodyl 10 MG SUPP PR (16:07)
--- NOTE | 2022-08-15 17:58 | NUR.NOTE ---
Lisa is being Verbally abusive towards staff, This HARNESS REPAIRER was trying to help her stand up in the steady lift to get into bed from the chair. This HARNESS REPAIRER Asked her to help us pull her up out of the chair, she then said shut up chubby and just get me up This HARNESS REPAIRER then told her that it was not okay for her to talk to the staff this way. Nursing Note:
--- NOTE | 2022-08-15 18:36 | NUR.NOTE ---
In to bedside to transfer patient from chair to bed. Patient very resistive to care, and required frequent encouragement to stand with adonis. During transfer patient became very verbally abusive towards staff. Staff was encouraging patient to stand up straight. Patient then stated, shut up chubby and just get me up. Has been frequently verbally abusive towards staff, specifically when attempting to get her out of bed to bedside commode, or chair. Patient continues to be verbally abusive despite staff explaining that her behavior is not acceptable. Charge nurse made aware and at bedside. Nursing Note:
[2022-08-15] MEDS: Melatonin 3 MG TAB 9 MG PO (21:40)
[2022-08-16] VITALS (7 sets, daily range): BP systolic 110–132; BP diastolic 65–74; PULSE 76–100; RESP 15–20; TEMP 36–37.1; O2SAT 91–97
[2022-08-16] MEDS: MEROPENEM 1 GM in Normal Saline 100 ML IVPB ×3 (03:03→20:52)
[2022-08-16] MEDS: Mylanta Suspension 30 ML CUP PO (04:30)
[2022-08-16 06:42] LABS: Absolute Basophil Count 0.04 10^3/uL (0.0-0.2); Absolute Eosinophil Count 0.27 10^3/uL (0.0-0.7); Absolute Monocyte Count 0.45 10^3/uL (0.1-0.8); Absolute Neutrophil Count 5.17 10^3/uL (1.2-6.7); Basophils % 0.5; Eosinophils % 3.6; HGB 9.5 g/dL (11.2-15.7); Immature Grans % 1.3; Lymphocytes % 18.8; MCH 25.3 pg (27.0-33.0); MCHC 31.7 % (32.0-36.0); MCV 80 fL (80-95); Monocytes % 6.1; Neutrophils % 69.7; Platelet Count 223 10^3/uL (130-400); RBC 3.75 10^6/uL (3.93-5.22); RDW 15.7 % (11.7-14.6); RDW-SD 45.1 fL; WBC 7.43 10^3/uL (4.4-10.8)
[2022-08-16 07:16] LABS: Anion Gap 6.7 mmol/L (3-11); BUN 21 mg/dL (7-18); CO2 26.3 mmol/L (21.0-32.0); CREATININE 1.1 mg/dL (0.55-1.02); Chloride 107 mmol/L (98-107); Estimated GFR 54.73 (mL/min/1.73m2); Ferritin 34 ng/mL (8-252); Glucose 268 mg/dL (74-106); Magnesium 1.8 mg/dL (1.8-2.4); Potassium 4.5 mmol/L (3.5-5.1); Sodium 140 mmol/L (136-145)
[2022-08-16 07:19] LABS: Folate 8.7 ng/mL (8.6-20.0)
[2022-08-16] MEDS: Normal Saline Flush 10 ML SYR IVP ×2 (07:30→20:53)
[2022-08-16] MEDS: Insulin Aspart 300 UNITS/3 ML PEN SC ×4 (07:30→22:20)
[2022-08-16] MEDS: Levothyroxine 50 MCG TAB PO (07:31)
[2022-08-16] MEDS: Metoprolol CR 25 MG TABCR PO (07:31)
[2022-08-16] MEDS: Gabapentin 300 MG CAP PO (07:31)
[2022-08-16] MEDS: Pantoprazole 40 MG VIAL IVP ×2 (07:32→20:52)
[2022-08-16] MEDS: Rosuvastatin 10 MG TAB PO (07:32)
[2022-08-16] MEDS: Sucralfate 1 GM TAB PO ×3 (07:32→17:27)
[2022-08-16] MEDS: metFORMIN C.R. 500 MG TABCR PO (07:32)
[2022-08-16] MEDS: Acetaminophen 325 MG TAB PO ×3 (07:32→17:27)
[2022-08-16] MEDS: Nicotine 14 MG/24 HR PATCH TD (07:33)
[2022-08-16] MEDS: Insulin Glargine 300 UNITS/3 ML PEN 40 UNITS SC (07:41)
[2022-08-16 07:49] LABS: Iron 16 ug/dL (50-170); Total Iron Binding Capacity 325 ug/dL (250-450); Transferrin Sat 5 % (15-50)
--- NOTE | 2022-08-16 08:57 | PT.INTREAT ---
Date of service: 08/16/22 Time of Service: 07:45 PT Notes Visit Reasons: UTI; Hyperglycemia Inpatient Physical Therapy Treatment Note [facility] Date: 08/16/2022 SUBJECTIVE: Carmel states that she just wants to go home and that she does not want to be in the hospital anymore. She states that as soon as she can get a ride, she is going to sign her paperwork to go home. OBJECTIVE: Pain: No c/o pain BED MOBILITY/TRANSFERS Sit-supine: Max A with HOB flat Sit-stand: Mod A with STEDY from low recliner chair surface Stand-sit: CGA with STEDY and cueing for safety Chair-bed: STEDY GAIT: Unable THEREX: Patient was instructed in a LE strengthening and stabilization program, completed in a supine position, to include: ankle pumps (AA on L), quad sets, glute sets, heel slides (AA on L) and hip abduction (AA on L). Patient was also instructed in modified functional [id number], completed in STEDY x3. ASSESSMENT: Patient tolerated session with complaint of increased fatigue with all activity. She continues to require Mod A - Max A for all bed mobility and transfers due to weakness at this time. She is unable to participate in gait training nor stand-pivot transfers at this time due to weakness. PLAN: Continue with global strengthening and general conditioning for improved activity tolerance and mobility. TREATMENT CODE/TIME: Session 1: 40 minutes; [id number] x2, [id number] (07:45) Session 2: Refused
[2022-08-16] MEDS: Budesonide/Formoterol 80/4.5 6.9 GM 60 PUFF INH IH (08:59)
[2022-08-16] MEDS: Ferrous Sulfate 325 MG TAB PO (11:24)
[2022-08-16] MEDS: Normal Saline 500 ML 30 ML IV (11:27)
[2022-08-16 12:15] LABS: Vitamin B12 193 pg/mL (193-986)
[2022-08-16] MEDS: IRON SUCROSE COMPLEX 300 MG in Normal Saline 250 ML 167 MG IVPB (12:39)
--- NOTE | 2022-08-16 12:45 | NUR.NOTE ---
Nursing Note: pt stating can you get me onto the bedside or do you want me to shit the bed when this rn entered the room to answer her call mercado. pt was educated that this rn has assisted throughout the day and vulgar communication will not be necessary during her stay.
--- NOTE | 2022-08-16 16:31 | CMPROGNOTE_ITS ---
- If Service Date Differs Date of service: 08/16/22 Time of Service: 16:31 Care Management Progress Note S/O:Lisa was sitting up in a chair when CM met with her. She informed CM that she wanted to sign out AMA because she felt that the staff was not being nice to her. She did admit that she had made a derogatory comment about someone who was overweight and also used profanity, both of which she stated she apologized for. Carmel has a very resistant organism (ESBL) in her urine and the provider prefers to treat it with IVAB for a total of seven days. She has only received 4 days of antibiotics so would need to remain hospitalized through the weekend. At the request of the ELECTRICIAN STATION ASSISTANT of the local EMS service, RADHA coordinated a team/family meeting in the afternoon via [employer]. Representatives from [facility], Home Health, PCP practice, CM and Ethan, Carmel's son and Steph, her sister attended.Ethan has agreed to pursue guardianship and Mari Mota has agreed to provide him with the forms. [facility] will assist Ethan with the process as needed. A:Lisa is a 67 year old woman admitted on 08/13/22 with weakness P:Anticipate Carmel will discharge home with a resumption of services, although she has stated that she intends to sign out AMA if she can get a ride home. She will follow up with her PCP and other community supports and plan of care. Lisa will transport with her son or [facility]. CM will follow and support Carmel and assess for ongoing discharge concerns.
--- NOTE | 2022-08-16 17:52 | NUR.NOTE ---
Nursing Note: pt provided dinner tray. pt is irritable that she is in pain however this rn administered acetaminophen and repositioned.
[2022-08-16] MEDS: Lidocaine 5% Patch 2 PATCH TP (18:22)
--- NOTE | 2022-08-16 20:23 | NUR.NOTE ---
The nurse for the patient came to this nurse stating that the pt was firing her bc she was black. This nurse assigned new nurse for patient and that nurse informed this nurse that she was being belligerant towards them as well and was very confused. Pt is calling 911 repeatedly and she is very confused as to where she is. This nurse has paged the MD and awaiting call.
--- NOTE | 2022-08-16 20:36 | NUR.NOTE ---
Nursing Note: This AUTO MECHANICS INSTRUCTOR coassigned with RN MIRIAM to pt due to previous nurse being fired. Patient indicated to previous nurse it was because she is black. Upon initial assessment, pt is confused and agitated, repeatedly stating why are you in my house? You don't belong here, who hired you? Despite frequent attempts at reorientation, patient confused and escalating. Patient refused all scheduled medication, stating I've already had my medication, Brooke gives them to me. I don't know you people. Pt repeatedly calling 911 from room phone. Previous nurse assessment indicated orientation status x3. CC notified, provider paged. Will continue to attempt reorientation and monitor for further acute changes.
--- NOTE | 2022-08-16 22:27 | PGE_ITS ---
Date of Service Date of service: 08/16/22 Time of Service: 22:27 Assessment and Plan Assessment and plan (1) Acute UTI: Status: Acute Assessment and plan: klebsiella oxytoca;ESBL continue Meropenem day 3 Catheter was changed on admission 08/13, needs to be changed again now treated. (2) Acute dehydration: Status: Resolved Assessment and plan: appears euvolemic, Continue oral fluids (3) Diabetes type 2, uncontrolled: Status: Chronic Assessment and plan: continue current diabetes management as controlled well here A1C 12.4 06/04 Qualifiers: Glycemic state: with hyperglycemia Qualified Code(s): E11.65 - Type 2 diabetes mellitus with hyperglycemia (4) Nicotine dependence: Status: Chronic Assessment and plan: NicoDerm patch Qualifiers: Nicotine product type: cigarettes Substance use status: uncomplicated Qualified Code(s): F17.210 - Nicotine dependence, cigarettes, uncomplicated (5) COPD, mild: Status: Chronic Assessment and plan: Continue her Symbicort; no acute exacerbation of her COPD. Continue nicotine replacement with transdermal nicotine. (6) Chronic kidney disease, stage III (moderate): Status: Chronic Assessment and plan: Monitor renal function avoid nephrotoxins. Qualifiers: Chronic kidney disease stage 3 subtype: unspecified whether 3a or 3b Qualified Code(s): N18.30 - Chronic kidney disease, stage 3 unspecified (7) Coronary artery disease involving [place] coronary artery of [place] heart: Status: Chronic Assessment and plan: Continue rosuvastatin (8) Hypertension: Status: Chronic Assessment and plan: blood pressure controlled Qualifiers: Hypertension type: essential hypertension Qualified Code(s): I10 - Essential (primary) hypertension (9) Hypothyroidism: Status: Chronic Assessment and plan: Continue current levothyroxine. (10) DVT prophylaxis: Status: Acute Assessment and plan: enoxaparin daily (11) Discharge planning issues: Status: Acute Assessment and plan: will discharge home +/- home health services - possibly short rehab stay if agreeable - when medically ready discussed with Dr Espino Subjective Subjective Patient reports: no new complaints, feels better, tolerating liquids well, tolerating a regular diet and afebrile; denies shortness of breath Interval history since last seen: jerez draining well Exam Const General: cooperative Orientation: alert, awake, oriented to person, oriented to place and confused HENMT Mouth: mucous membranes dry Eyes Conjunctivae: normal conjunctivae Sclera: normal sclerae Neck Neck: trachea midline and supple Resp Auscultation: clear to auscultation bilaterally, no rales, no rhonchi and no wheezes Cardio Rhythm: regular rhythm Heart Sounds: murmur GI Palpation: soft, not firm, no guarding, no masses, not rigid and nontender Other: indwelling jerez Skin General skin exam: no rashes or lesions noted Neuro General: patient alert and patient awake Cognition: abnormal cognition (some confusion, poor historian) Extrem General: no edema Psych Appearance: grossly normal Affect: other (flat) Objective Last Vital Signs Temp 36.3 C L 08/16/22 19:00 Pulse 100 H 08/16/22 20:38 Resp 18 08/16/22 19:00 BP 132/72 08/16/22 19:00 Pulse Ox 97 08/16/22 20:38 Laboratory Results - last 24 hr 08/16/22 08/16/22 08/16/22 06:15 06:15 06:15 WBC 7.43 RBC 3.75 L Hgb 9.5 L Hct 30.0 L MCV 80 MCH 25.3 L MCHC 31.7 L RDW 15.7 H Plt Count 223 MPV 12.0 H Reticulocyte % (Auto) Immature Gran % 1.3 Neutrophils % 69.7 Lymphocytes % 18.8 Monocytes % 6.1 Eosinophils % 3.6 Basophils % 0.5 Nucleated RBC % 0.0 Absolute Neutrophils 5.17 Absolute Lymphocytes 1.40 Absolute Monocytes 0.45 Absolute Eosinophils 0.27 Absolute Basophils 0.04 Sodium 140 Potassium 4.5 Chloride 107 Carbon Dioxide 26.3 Anion Gap 6.7 BUN 21 H Creatinine 1.1 H Est GFR (CKD-EPI 2020) 54.73 Glucose 268 H Calcium 10.0 Magnesium 1.8 Iron 16 L TIBC 325 Transferrin % Sat 5 L Ferritin 34 Vitamin B12 Folate 08/16/22 08/16/22 08/16/22 06:15 06:15 06:15 WBC RBC Hgb Hct MCV MCH MCHC RDW Plt Count MPV Reticulocyte % (Auto) 2.0 Immature Gran % Neutrophils % Lymphocytes % Monocytes % Eosinophils % Basophils % Nucleated RBC % Absolute Neutrophils Absolute Lymphocytes Absolute Monocytes Absolute Eosinophils Absolute Basophils Sodium Potassium Chloride Carbon Dioxide Anion Gap BUN Creatinine Est GFR (CKD-EPI 2020) Glucose Calcium Magnesium Iron TIBC Transferrin % Sat Ferritin Vitamin B12 193 Cancelled Folate 8.7 Time Spent with Patient Time Spent with Patient: 25-34 minutes Time was spent: preparing to see the patient(eg.review tests), obtaining and/or reviewing separately otained hiistory, ordering medications,tests, procedures, referring, communicating with other health healthcare customer service, indepentently interpreting results and care coordination
--- NOTE | 2022-08-16 23:42 | PGE_ITS ---
Date of Service Date of service: 08/16/22 Time of Service: 20:42 Assessment and Plan Assessment and plan (1) Acute delirium: Status: Acute Assessment and plan: Looking back over her history she has had similar behavior to this. I don't see evidence of an acute stroke. I reassured her. SHe doesn't want more medication. no change in management, continue to monitor Subjective Subjective Interval history since last seen: RN called regarding patient mental status changes. I went to evaluate her. She was asking why all these people are in her house. She states she lives here at [facility]. She doesn't want people coming in. She wants to call her son, but he doesn't answer. She has called the police multiple times. She denies any fever or pains bothering her. Exam Narrative Exam Narrative: Alert, oriented to self, somewhat to place, partially to time (gets month, states 2021, Saturday) RRR, no m/g/r Lungs: CTAB ABD soft, NT NEURO: CN intact, moving 4 extremities. Couldn't do pronator drift with limited ROM wrists, but holds arms out. not tremor. PSYCH: mildly agitated, but can be talked down and redirected, perseverates. Objective Last Vital Signs Temp 36 C L 08/16/22 23:20 Pulse 76 08/16/22 23:20 Resp 15 08/16/22 23:20 BP 123/66 08/16/22 23:20 Pulse Ox 94 08/16/22 23:20 Laboratory Results - last 24 hr 08/16/22 08/16/22 08/16/22 06:15 06:15 06:15 WBC 7.43 RBC 3.75 L Hgb 9.5 L Hct 30.0 L MCV 80 MCH 25.3 L MCHC 31.7 L RDW 15.7 H Plt Count 223 MPV 12.0 H Reticulocyte % (Auto) Immature Gran % 1.3 Neutrophils % 69.7 Lymphocytes % 18.8 Monocytes % 6.1 Eosinophils % 3.6 Basophils % 0.5 Nucleated RBC % 0.0 Absolute Neutrophils 5.17 Absolute Lymphocytes 1.40 Absolute Monocytes 0.45 Absolute Eosinophils 0.27 Absolute Basophils 0.04 Sodium 140 Potassium 4.5 Chloride 107 Carbon Dioxide 26.3 Anion Gap 6.7 BUN 21 H Creatinine 1.1 H Est GFR (CKD-EPI 2020) 54.73 Glucose 268 H Calcium 10.0 Magnesium 1.8 Iron 16 L TIBC 325 Transferrin % Sat 5 L Ferritin 34 Vitamin B12 Folate 08/16/22 08/16/22 08/16/22 06:15 06:15 06:15 WBC RBC Hgb Hct MCV MCH MCHC RDW Plt Count MPV Reticulocyte % (Auto) 2.0 Immature Gran % Neutrophils % Lymphocytes % Monocytes % Eosinophils % Basophils % Nucleated RBC % Absolute Neutrophils Absolute Lymphocytes Absolute Monocytes Absolute Eosinophils Absolute Basophils Sodium Potassium Chloride Carbon Dioxide Anion Gap BUN Creatinine Est GFR (CKD-EPI 2020) Glucose Calcium Magnesium Iron TIBC Transferrin % Sat Ferritin Vitamin B12 193 Cancelled Folate 8.7 Time Spent with Patient Time Spent with Patient: 25-34 minutes Time was spent: preparing to see the patient(eg.review tests), obtaining and/or reviewing separately otained hiistory and counseling the patient
[2022-08-17] MEDS: Melatonin 3 MG TAB 9 MG PO ×2 (00:04→21:50)
[2022-08-17 03:07] VITALS: BP 124/69; PULSE 91; RESP 17; TEMP 36.1; O2SAT 94
[2022-08-17] MEDS: MEROPENEM 1 GM in Normal Saline 100 ML IVPB ×3 (03:41→20:15)
[2022-08-17 08:00] VITALS: O2SAT 97
[2022-08-17] MEDS: Budesonide/Formoterol 80/4.5 6.9 GM 60 PUFF INH IH ×2 (08:28→21:12)
[2022-08-17] MEDS: Rosuvastatin 10 MG TAB PO (08:30)
[2022-08-17] MEDS: Metoprolol CR 25 MG TABCR PO (08:30)
[2022-08-17] MEDS: Gabapentin 300 MG CAP PO ×2 (08:30→20:15)
[2022-08-17] MEDS: Docusate Sodium 100 MG CAP PO ×2 (08:30→20:15)
[2022-08-17] MEDS: Ferrous Sulfate 325 MG TAB PO ×2 (08:30→20:15)
[2022-08-17] MEDS: Levothyroxine 50 MCG TAB PO (08:30)
[2022-08-17] MEDS: Sucralfate 1 GM TAB PO ×4 (08:30→21:50)
[2022-08-17] MEDS: Pantoprazole 40 MG VIAL IVP (08:31)
[2022-08-17] MEDS: Nicotine 14 MG/24 HR PATCH TD (08:31)
[2022-08-17] MEDS: Polyethylene Glycol 3350 17 GM PACKET PO (08:31)
[2022-08-17] MEDS: metFORMIN C.R. 500 MG TABCR PO (08:31)
[2022-08-17] MEDS: Insulin Glargine 300 UNITS/3 ML PEN 40 UNITS SC (08:32)
[2022-08-17] MEDS: Insulin Aspart 300 UNITS/3 ML PEN SC ×4 (08:38→21:52)
--- NOTE | 2022-08-17 10:39 | PT.INTREAT ---
Date of service: 08/17/22 Time of Service: 10:10 PT Notes Visit Reasons: UTI; Hyperglycemia Inpatient Physical Therapy Treatment Note [facility] Date: 08/17/2022 SUBJECTIVE: Carmel states that she has been sitting up in the chair most of the morning. She would like to get back to bed because her hips are hurting. OBJECTIVE: Pain: Patient c/o B hip pain at rest and with transfers BED MOBILITY/TRANSFERS Sit-supine: Max A with HOB flat Sit-stand: Min A x2 with STEDY from commode surface Stand-sit: SBA with STEDY and cueing for safety Chair-bed: STEDY GAIT: Unable THEREX: Patient was instructed in a LE strengthening and stabilization program, completed in a supine position, to include: ankle pumps (AA on L), quad sets, glute sets, heel slides (AA on L) and hip abduction (AA on L). Patient was also instructed in modified functional [id number], completed in STEDY x5. TOILETING: Patient attempted to toilet utilizing commode, patient requires assist with all toileting activities. ASSESSMENT: Patient tolerated session with complaint of increased fatigue with all activity. She continues to require Mod A - Max A for all bed mobility and transfers due to weakness at this time. She is unable to participate in gait training nor stand-pivot transfers at this time due to weakness. PLAN: Continue with global strengthening and general conditioning for improved activity tolerance and mobility. TREATMENT CODE/TIME: Session 1: Refused Session 2: 25 minutes; [id number] (10:10)
--- NOTE | 2022-08-17 11:15 | W.PM.PROGNOT ---
Date of Service Date of service: 08/17/22 Time of Service: 11:15 Assessment and Plan Assessment and plan (1) Acute UTI: Status: Acute Assessment and plan: klebsiella oxytoca;ESBL continue Meropenem day 09/16 Catheter was changed on admission 08/13, needs to be changed again now treated or removed. it is noted that the jerez was left in place at last admission at family request as she frequently has to urinate and gets up and has multiple falls, it was thought this would decrease fall risk but now with MSRO and greater infection risk it should not be maintained if she is able to void. jerez will be discontinued for voiding trial (2) Acute dehydration: Status: Resolved Assessment and plan: appears euvolemic, Continue oral fluids (3) Diabetes type 2, uncontrolled: Status: Chronic Assessment and plan: continue current diabetes management as controlled well here A1C 12.4 06/04 Qualifiers: Glycemic state: with hyperglycemia Qualified Code(s): E11.65 - Type 2 diabetes mellitus with hyperglycemia (4) Nicotine dependence: Status: Chronic Assessment and plan: NicoDerm patch Qualifiers: Nicotine product type: cigarettes Substance use status: uncomplicated Qualified Code(s): F17.210 - Nicotine dependence, cigarettes, uncomplicated (5) COPD, mild: Status: Chronic Assessment and plan: Continue her Symbicort; no acute exacerbation of her COPD. Continue nicotine replacement with transdermal nicotine. (6) Chronic kidney disease, stage III (moderate): Status: Chronic Assessment and plan: Monitor renal function avoid nephrotoxins. Qualifiers: Chronic kidney disease stage 3 subtype: unspecified whether 3a or 3b Qualified Code(s): N18.30 - Chronic kidney disease, stage 3 unspecified (7) Coronary artery disease involving [place] coronary artery of [place] heart: Status: Chronic Assessment and plan: Continue rosuvastatin (8) Hypertension: Status: Chronic Assessment and plan: blood pressure controlled Qualifiers: Hypertension type: essential hypertension Qualified Code(s): I10 - Essential (primary) hypertension (9) Hypothyroidism: Status: Chronic Assessment and plan: Continue current levothyroxine. (10) DVT prophylaxis: Status: Acute Assessment and plan: enoxaparin daily (11) Discharge planning issues: Status: Acute Assessment and plan: plan is to discharge home on Saturday after completion of her antibiotics. will need NEW RN, PT, OT and [employer]. discussed with Dr Espino Subjective Subjective Patient reports: no new complaints, tolerating liquids well, tolerating a regular diet and afebrile; denies shortness of breath Exam Const General: cooperative Orientation: alert, awake, oriented to person, oriented to place and confused HENRI Mouth: mucous membranes dry Eyes Conjunctivae: normal conjunctivae Sclera: normal sclerae Neck Neck: trachea midline and supple Resp Auscultation: clear to auscultation bilaterally, no rales, no rhonchi and no wheezes Cardio Rhythm: regular rhythm Heart Sounds: murmur GI Palpation: soft, not firm, no guarding, no masses, not rigid and nontender Other: indwelling jerez Skin General skin exam: no rashes or lesions noted Neuro General: patient alert and patient awake Cognition: abnormal cognition (some confusion, poor historian) Extrem General: no edema Psych Appearance: grossly normal Affect: other (flat) Objective Last Vital Signs Temp 36.1 C L 08/17/22 03:07 Pulse 91 H 08/17/22 03:07 Resp 17 08/17/22 03:07 BP 124/69 08/17/22 03:07 Pulse Ox 94 08/17/22 03:07 Laboratory Results - last 24 hr 08/16/22 08/16/22 06:15 06:15 Vitamin B12 193 Cancelled Time Spent with Patient Time Spent with Patient: 25-34 minutes Time was spent: preparing to see the patient(eg.review tests), obtaining and/or reviewing separately otained hiistory, ordering medications,tests, procedures, indepentently interpreting results and care coordination
--- NOTE | 2022-08-17 11:49 | PDOC.CMPRO ---
- If Service Date Differs Date of service: 08/17/22 Time of Service: 11:49 Care Management Progress Note S/O:Lisa was sitting up in bed when CM met with her. She stated that she did not sleep well last night. She informed CM that she has been up more today and she hopes the increased activity will help her sleep tonight. Lisa also reported to CM that she plans to discharge home on Saturday, which will coincide with her last dose of antibiotic. It is her son's only day off and the only time he will be available to transport her. RADHA received a call from Mari Mota from home health today. She informed that she met with her home health team and they have decided to terminate services for Lisa. She stated that the reasons are 1. poor compliance in the past 2. refusal to work with some staff and 3. she lives in an unsafe situation. She explained that because Lisa cannot toilet herself or safely transfer and that she is alone for many hours a day, they ([facility]) are unable to assist her and meet her needs. Her [facility] care management with [facility] will continue as will her caregivers through [facility]. Mari also stated that when discharged from [facility], the provider can order services again but that there is no guarantee they will be initiated. RADHA shared this information with Carmel, so she would know what to expect at discharge. RADHA was unable to reach her son Ethan on the phone or leave a message as his cell phone mailbox is full. A:Lisa is a 67 year old woman admitted on 08/13/22 with weakness P:Anticipate Carmel will discharge home with a resumption of [facility] services. She expects that this will happen on Saturday. She will follow up with her PCP and other community supports and plan of care. Unfortunately, Carmel has been discharged from home health services, however the provider may order new services at discharge. Lisa will transport with her son. CM will follow and support Carmel and assess for ongoing discharge concerns.
--- NOTE | 2022-08-17 16:44 | W.PALLCONSUL ---
Date of service: 08/17/22 Time of Service: 16:35 History of Present Illness Narrative: Lisa was seen for palliative f/u. She was seen for Palliative by Kathleen Adler NP earlier this week. She reports that she still feels very weak. She is worried about going home. She reports that she had caregivers coming in a few times per week but she does not think they will be able to come in anymore. She considered going to her sister's in [place] but does not think this is a good plan. Her son lives with her but is gone for several hours per day. She reports that she has a BSC at home. She does not have a jerez catheter anymore. She is encouraged to practice getting up OOB to the commode with staff here at the hospital to ensure she will be able to do this at home. Discussed SNF for rehab with her. She states she signed out of [facility] and rehab AMA and they will not take her back now. She has also been to the [facility] and states it was not too bad there. However, she continues to state that her preference is to return home. When questioned if the conflict that she was experiencing with staff had improved, she states, some people are nice, others are not. Assessment and Plan Assessment and plan (1) Bacterial UTI: Status: Acute (2) Falls: Status: Acute (3) Difficulty transferring from bed to wheelchair: Status: Chronic (4) Wheelchair bound: Status: Chronic (5) Cognitive attention deficit: Status: Chronic (6) Diabetes type 2, uncontrolled: Status: Chronic Qualifiers: Glycemic state: with hyperglycemia Qualified Code(s): E11.65 - Type 2 diabetes mellitus with hyperglycemia (7) Coronary artery disease involving [place] coronary artery of [place] heart: Status: Chronic (8) Chronic kidney disease, stage III (moderate): Status: Chronic Qualifiers: Chronic kidney disease stage 3 subtype: unspecified whether 3a or 3b Qualified Code(s): N18.30 - Chronic kidney disease, stage 3 unspecified (9) Cardiomyopathy: Status: Chronic Qualifiers: Cardiomyopathy type: ischemic Qualified Code(s): I25.5 - Ischemic cardiomyopathy (10) Palliative care patient: Assessment and plan: Lisa was seen for Palliative f/u. She was seen earlier this week by Kathleen Adler NP Palliative. She no longer has a jerez catheter. She is weak and has difficulty getting OOB at baseline. She is WC bound at home. She spends most of her time in bed. Her son lives with her but is not home for several hours per day. She has previously had caregivers come in for a few hours a few days per week but she states they will no longer be coming in. She would benefit from discharge to a SNF for rehab, however, she states she left [facility] and rehab AMA and they will not take her back. [facility] before and thought it was not too bad, but declines SNF at this time. She will need HH services upon discharge. The plan is for her to discharge home on Saturday 08/19. She is encouraged to practice getting OOB to the commode to ensure she is able prior to going home. F/u Palliative as an outpatient with Home visit. Review of Systems Narrative: Feels weak still. Breathing is at baseline. She reports she is eating well and enjoys the food here. [facility] All Active Problems (Updated 08/16/22 @ 22:48 by Treva Jacobs NP) DVT prophylaxis (Acute) Discharge planning issues (Acute) Low hemoglobin (Acute) Hyperglycemia (Acute) Bacterial UTI (Acute) Acute UTI (Acute) Falls (Acute) Acute delirium (Acute) Eschar of toe (Acute ~05/2022) Cellulitis of toe of right foot (Acute ~05/2022) Nail dystrophy (Acute) Diabetic foot infection (Acute) Nail avulsion, toe (Acute) L great toe Urge incontinence (Chronic) Declines RX briefs Self-care deficit (Acute) Bedbound (Acute) gets up with WC to BR Recurrent falls (Chronic) Difficulty transferring from bed to wheelchair (Chronic) DME hospital bed has helped Difficulty transferring from toilet to wheelchair (Chronic) Steph investigating commode Wheelchair bound (Chronic) no falls since starting using WC permanent need severe diabetic nephropathy needs more adaptive equipment in the home Cognitive attention deficit (Chronic) needs multiple repetitions of information Diabetes type 2, uncontrolled (Chronic) though she has had education over the years, still seems not to understand carb counting ideally needs someone to educate son as he buys her food also needs hands-on teaching with nutrition labels, etc. 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 chronic pain service Chronic Pain [facility] Pain Center consult 10/26/15 [facility] Spine Center consult 03/04/17 (Sanket Sawant MD) Other and unspecified hyperlipidemia (Chronic 08/14/12) Esophageal reflux disease (Chronic 07/24/11) UPPER GI SERIES 11/14/2012, MOD HIATAL HERNIA SEVERE GERD Coronary artery disease involving [place] coronary artery of [place] heart (Chronic) INFERIOR [place] 1996, 100% RCA occlusion; large inf defect on perfusion scan, dr Fair Chronic kidney disease, stage III (moderate) (Chronic 08/14/12) Cortical atrophy R kidney on CT 07/2014; multiple cysts Cardiomyopathy (Chronic) Dr Fair, EF 45% Jun 2014 ECHO (h/o much worse) 10/2016 ECHO: EF 40-45% 10/2016 MPI: no acute, but persistent old infarct COPD, mild (Chronic 07/02/17) PFTs Abdominal aortic aneurysm (Chronic 11/27/12) Identified 10/31/12 CT abd-pelvis; 4cm; stable 4.1 cm 07/2014 CT, 4.3cm 11/2016, 5.5cm 03/04/17 ([facility]). 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 Ward Bacteremia due to Gram-positive bacteria Calculus of kidney and ureter Carpal tunnel syndrome (08/14/12) resolved s/p b/l release Cellulitis of foot Dark emesis Depressive disorder (08/14/12) 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 Guerra DJD of right shoulder (01/01/13) 12/2012 x-ray severe DJD glenohumeral joint Dr. Guerra; not a surgical candidate for replacement DNI (do not intubate) DNR (do not resuscitate) Encounter for hospice care Episode of seizures in July 2012 Fall at home Goals of care, counseling/discussion DNR/DNI COLST done wants to stay home may need new agent if/when Steph moves out of state as planned Iron deficiency anemia Mass of both parotid glands Abnormal CT 08/2019 Mild pulmonary hypertension Nausea and vomiting (08/01/14) a. previous history of possible marijuana induced hyperemesis Osteoarthritis of left elbow Palliative care patient Perirectal abscess With associated hospitalization 2019 POLST (Physician Orders for Life-Sustaining Treatment) signed 06/01/20 Pulmonary embolism (~12/2021) Never started anticoagulation RLS (restless legs syndrome) Tinea corporis Surgical History Appendectomy Childhood surgery, no date given by pt.HE Hemiarthroplasty (06/13/15) Dr Charlie Gallardo shoulder History of carpal tunnel release of both wrists (~05/2012) Hx of umbilical hernia repair (09/06/15) Incarcerated umbilical hernia repair (09/06/15) Tonsillectomy childhood surgery, no date given by pt.HE Family History Mother , at 73 yo from dementia Dementia Diabetes Stroke Blind Father , MVA (truck) accident at 45yo No problems noted. Sister Age: 62 Thyroid cancer Brother , from complications of diabetes age 60 Diabetes Brother Diabetes Heart disease Colon cancer Ulcerative colitis Sister Obesity Prediabetes Arthritis Son Substance abuse attends [facility]; h/o heroin and other opioid addiction Other FH: mental illness Social History Smoking/Tobacco Use Status: Current every day Tobacco Type: cigarettes Tobacco: How many years used: 54 Quit status: not considering quitting Counseling given: counseling >3 minutes Smoking risk assessment performed?: Yes Alcohol Intake: former Drug use: Daily Substance use type: marijuana Counseling given: Yes Details: pt states she smokes marijuana on a daily basis x1 per day Adopted: No Caregiver/Support person: Yes Foster care: No Household members: children Housing: house Number of Children: 1 number of grandchildren: 0 Communication Needs: Corrective Lenses Education Level: high school Details: didn't finish sophomore year Do you need help understanding health information?: Always 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; 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 Pets and animals: Yes Current gender identity: female What is your relationship status?: How often do you talk on the phone with friends or family?: three or more times per week How often do you get together with friends or relatives?: twice per week Panel score (0-1 are the most socially isolated patients): 1 What type of physical activity do you participate in: none and wheelchair-bound Special eliana needs: No Seatbelt use: sometimes Working smoke detector in home: Yes Fire extinguisher in home: Yes Do you feel safe at home: Yes (Most of the time, yes I feel better if my son or somebody is there) Do you feel safe in your relationship?: Yes Additional Social history: Patient reports she lives with her son Exam Narrative Exam Narrative: General: very pleasant female, appears older than stated age, appears chronically ill. Resting in bed, watching TV, engages in visit, talkative. HEENT: normocephalic, atraumatic, EOMI, mmm, missing teeth. Neck: supple. Respiratory: respirations appear even and unlabored. Extremities: few scattered bruises to BUEs, no significant edema to BLEs. Results Last Vital Signs Temp 36.1 C L 08/17/22 03:07 Pulse 91 H 08/17/22 03:07 Resp 17 08/17/22 03:07 BP 124/69 08/17/22 03:07 Pulse Ox 97 08/17/22 08:00 Labs 08/16/22 06:15 08/16/22 06:15
[2022-08-17] MEDS: Lidocaine 5% Patch 2 PATCH TP (18:05)
[2022-08-17] MEDS: Acetaminophen 325 MG TAB PO ×2 (18:06→20:15)
[2022-08-17 18:52] VITALS: BP 119/67; PULSE 98; RESP 14; TEMP 37; O2SAT 98
[2022-08-17 22:55] VITALS: BP 121/69; PULSE 95; RESP 20; TEMP 36.7; O2SAT 96
[2022-08-18 04:55] VITALS: BP 109/64; PULSE 94; RESP 16; TEMP 36.4; O2SAT 94
[2022-08-18] MEDS: MEROPENEM 1 GM in Normal Saline 100 ML IVPB ×3 (05:04→21:05)
[2022-08-18] MEDS: Levothyroxine 50 MCG TAB PO (05:04)
[2022-08-18] MEDS: Acetaminophen 325 MG TAB PO ×3 (05:04→23:37)
[2022-08-18 07:31] VITALS: BP 111/61; PULSE 93; RESP 16; TEMP 36; O2SAT 95
[2022-08-18] MEDS: Nicotine 14 MG/24 HR PATCH TD (07:35)
[2022-08-18] MEDS: Polyethylene Glycol 3350 17 GM PACKET PO (07:35)
[2022-08-18] MEDS: Insulin Aspart 300 UNITS/3 ML PEN SC ×4 (07:37→21:07)
[2022-08-18] MEDS: Ferrous Sulfate 325 MG TAB PO ×2 (07:37→21:08)
[2022-08-18] MEDS: metFORMIN C.R. 500 MG TABCR PO (07:37)
[2022-08-18] MEDS: Docusate Sodium 100 MG CAP PO (07:37)
[2022-08-18] MEDS: Gabapentin 300 MG CAP PO ×2 (07:37→21:08)
[2022-08-18] MEDS: Sucralfate 1 GM TAB PO ×4 (07:37→21:08)
[2022-08-18] MEDS: Rosuvastatin 10 MG TAB PO (07:37)
[2022-08-18] MEDS: Insulin Glargine 300 UNITS/3 ML PEN 40 UNITS SC (07:38)
[2022-08-18] MEDS: Metoprolol CR 25 MG TABCR PO (07:43)
[2022-08-18] MEDS: Budesonide/Formoterol 80/4.5 6.9 GM 60 PUFF INH IH ×2 (08:13→20:51)
--- NOTE | 2022-08-18 09:48 | PT.INTREAT ---
Date of service: 08/18/22 Time of Service: 09:15 PT Notes Visit Reasons: UTI; Hyperglycemia Inpatient Physical Therapy Treatment Note [facility] Date: 08/18/2022 SUBJECTIVE: Carmel is pleasant and agreeable to participating in PT. She reports that her bottom is getting sore from sitting up in the chair. She requests to go back to bed. She states that she is feeling much better today. OBJECTIVE: Pain: Patient c/o soreness about her bottom while sitting in recliner chair BED MOBILITY/TRANSFERS Sit-supine: Max A x2 with HOB flat Sit-stand: Mod A x2 with STEDY from recliner chair surface Stand-sit: SBA with STEDY and cueing for safety Chair-bed: STEDY GAIT: Unable THEREX: Patient was instructed in static standing in STEDY, which she tolerates x30 seconds. Patient defers participation in further ther ex due to fatigue. ASSESSMENT: Patient tolerated session with complaint of increased fatigue with all activity. She continues to require Mod A - Max A for all bed mobility and transfers due to weakness at this time. She is unable to participate in gait training nor stand-pivot transfers at this time due to weakness. PLAN: Continue with global strengthening and general conditioning for improved activity tolerance and mobility. TREATMENT CODE/TIME: 20 minutes; 30067 (09:15)
[2022-08-18 11:16] VITALS: BP 110/68; PULSE 72; RESP 16; TEMP 36; O2SAT 96
[2022-08-18] MEDS: Nystatin POWDER 60 GM JAR TP ×2 (12:58→21:57)
--- NOTE | 2022-08-18 13:16 | W.PM.PROGNOT ---
Date of Service Date of service: 08/18/22 Time of Service: 13:16 Assessment and Plan Assessment and plan (1) Acute UTI: Status: Acute Assessment and plan: klebsiella oxytoca;ESBL continue Meropenem day 10/17 Jerez removed yesterday and she is voiding ok, no dysuria (2) Acute dehydration: Status: Resolved Assessment and plan: appears euvolemic, Continue oral fluids (3) Diabetes type 2, uncontrolled: Status: Chronic Assessment and plan: continue current diabetes management as controlled well here A1C 12.4 06/04 Qualifiers: Glycemic state: with hyperglycemia Qualified Code(s): E11.65 - Type 2 diabetes mellitus with hyperglycemia (4) Nicotine dependence: Status: Chronic Assessment and plan: NicoDerm patch Qualifiers: Nicotine product type: cigarettes Substance use status: uncomplicated Qualified Code(s): F17.210 - Nicotine dependence, cigarettes, uncomplicated (5) COPD, mild: Status: Chronic Assessment and plan: Continue her Symbicort; no acute exacerbation of her COPD. Continue nicotine replacement with transdermal nicotine. (6) Chronic kidney disease, stage III (moderate): Status: Chronic Assessment and plan: Monitor renal function avoid nephrotoxins. Qualifiers: Chronic kidney disease stage 3 subtype: unspecified whether 3a or 3b Qualified Code(s): N18.30 - Chronic kidney disease, stage 3 unspecified (7) Coronary artery disease involving [place] coronary artery of [place] heart: Status: Chronic Assessment and plan: Continue rosuvastatin (8) Hypertension: Status: Chronic Assessment and plan: blood pressure controlled Qualifiers: Hypertension type: essential hypertension Qualified Code(s): I10 - Essential (primary) hypertension (9) Hypothyroidism: Status: Chronic Assessment and plan: Continue current levothyroxine. (10) DVT prophylaxis: Status: Acute Assessment and plan: enoxaparin daily (11) Discharge planning issues: Status: Acute Assessment and plan: plan is to discharge home on Saturday around 2 pm after completion of her antibiotics. will need NEW RN, PT, OT and LAWN MAINTENANCE WORKER. discussed with Dr Espino Subjective Subjective Patient reports: no new complaints, tolerating a regular diet, bowel movement and afebrile; denies diarrhea, nausea, vomiting or shortness of breath Interval history since last seen: Lisa is feeling better, but continues to complain of being weak. Denies dysuria Exam Const General: cooperative Orientation: alert, awake, oriented to person, oriented to place and confused [facility] Mouth: mucous membranes dry Eyes Conjunctivae: normal conjunctivae Sclera: normal sclerae Neck Neck: trachea midline and supple Resp Auscultation: clear to auscultation bilaterally, no rales, no rhonchi and no wheezes Cardio Rhythm: regular rhythm Heart Sounds: murmur GI Palpation: soft, not firm, no guarding, no masses, not rigid and nontender Other: indwelling jerez Skin General skin exam: no rashes or lesions noted Neuro General: patient alert and patient awake Cognition: abnormal cognition (some confusion, poor historian) Extrem General: no edema Psych Appearance: grossly normal Affect: other (flat) Objective Last Vital Signs Temp 36.0 C L 08/18/22 11:16 Pulse 72 08/18/22 11:16 Resp 16 08/18/22 11:16 BP 110/68 08/18/22 11:16 Pulse Ox 96 08/18/22 11:16 Time Spent with Patient Time Spent with Patient: <25 minutes Time was spent: preparing to see the patient(eg.review tests), ordering medications,tests, procedures, referring, communicating with other health healthcare architect, indepentently interpreting results, counseling the patient and care coordination
[2022-08-18 15:00] VITALS: BP 137/86; PULSE 98; RESP 18; TEMP 37.1; O2SAT 95
[2022-08-18] MEDS: Lidocaine 5% Patch 2 PATCH TP (17:41)
[2022-08-18] MEDS: Enoxaparin 40 MG/0.4 ML SYR SC (17:41)
[2022-08-18 19:58] VITALS: BP 111/66; PULSE 94; RESP 20; TEMP 36.8; O2SAT 94
[2022-08-18] MEDS: Melatonin 3 MG TAB 9 MG PO (21:07)
[2022-08-18] MEDS: Pantoprazole 40 MG TABCR PO (21:08)
[2022-08-18 23:22] VITALS: BP 128/58; PULSE 101; RESP 16; TEMP 36.8; O2SAT 98
[2022-08-19 03:20] VITALS: BP 109/63; PULSE 70; RESP 19; TEMP 36.2; O2SAT 93
[2022-08-19] MEDS: MEROPENEM 1 GM in Normal Saline 100 ML IVPB (05:09)
[2022-08-19] MEDS: Levothyroxine 50 MCG TAB PO (05:09)
[2022-08-19 06:32] VITALS: BP 129/69; PULSE 87; RESP 18; TEMP 36.6; O2SAT 93
[2022-08-19 07:41] LABS: Abs Immature Grans 0.09 10^3/uL (0.0-0.06); Absolute Basophil Count 0.05 10^3/uL (0.0-0.2); Absolute Lymphocyte Count 1.75 10^3/uL (1.2-3.4); Absolute Monocyte Count 0.51 10^3/uL (0.1-0.8); Absolute Neutrophil Count 4.55 10^3/uL (1.2-6.7); Basophils % 0.7; Eosinophils % 4.1; HCT 31.9 % (36.0-46.0); HGB 9.7 g/dL (11.2-15.7); Immature Grans % 1.2; Lymphocytes % 24.1; MCH 24.7 pg (27.0-33.0); MCHC 30.4 % (32.0-36.0); MCV 81 fL (80-95); MPV 10.8 fL (8.0-11.0); Neutrophils % 62.9; Platelet Count 245 10^3/uL (130-400); RBC 3.93 10^6/uL (3.93-5.22); RDW 16.1 % (11.7-14.6); RDW-SD 45.8 fL; WBC 7.25 10^3/uL (4.4-10.8)
[2022-08-19 07:54] LABS: Anion Gap 7.9 mmol/L (3-11); BUN 23 mg/dL (7-18); CO2 25.1 mmol/L (21.0-32.0); CREATININE 0.8 mg/dL (0.55-1.02); Calcium 10.2 mg/dL (8.5-10.1); Chloride 105 mmol/L (98-107); Estimated GFR 80.21 (mL/min/1.73m2); Glucose 234 mg/dL (74-106); Magnesium 1.6 mg/dL (1.8-2.4); Potassium 4.2 mmol/L (3.5-5.1); Sodium 138 mmol/L (136-145)
[2022-08-19] MEDS: Gabapentin 300 MG CAP PO (08:05)
[2022-08-19] MEDS: Metoprolol CR 25 MG TABCR PO (08:06)
[2022-08-19] MEDS: Sucralfate 1 GM TAB PO (08:07)
[2022-08-19] MEDS: Docusate Sodium 100 MG CAP PO (08:07)
[2022-08-19] MEDS: metFORMIN C.R. 500 MG TABCR PO (08:08)
[2022-08-19] MEDS: Rosuvastatin 10 MG TAB PO (08:08)
[2022-08-19] MEDS: Polyethylene Glycol 3350 17 GM PACKET PO (08:09)
[2022-08-19] MEDS: Pantoprazole 40 MG TABCR PO (08:09)
[2022-08-19] MEDS: Nicotine 14 MG/24 HR PATCH TD (08:09)
[2022-08-19] MEDS: Insulin Aspart 300 UNITS/3 ML PEN SC (08:11)
[2022-08-19] MEDS: Insulin Glargine 300 UNITS/3 ML PEN 40 UNITS SC (08:12)
[2022-08-19] MEDS: Budesonide/Formoterol 80/4.5 6.9 GM 60 PUFF INH IH (08:24)
[2022-08-19] MEDS: Nystatin POWDER 60 GM JAR TP (08:49)
[2022-08-19] MEDS: Ferrous Sulfate 325 MG TAB PO (08:49)
--- NOTE | 2022-08-19 09:57 | CMDISCH_ITS ---
- If Service Date Differs Date of service: 08/19/22 Time of Service: 09:57 LACE Index Scoring Tool - Questions: Length of Stay (in days): 4 - 6 Acuity (Admit via E.D.?): Yes Comorbidities: Diabetes w/o Complication, with End Organ Damage, Chronic Pulmonary Disease, Liver or Renal Disease E.D. Visits: 15 - Answers: Total Score: 16 Risk of Readmission: High Risk Care Management Discharge Reason for Hospitalization: Uti Discharge Plan: Carmel is discharged home with resumption of CFC with caregiver support through [facility]. New [facility] RN/PT/OT/[facility]ER services are ordered. Carmel is transported via private vehicle with son. She will follow up with community providers and discharge plan of care as prescribed. Patient/Family Education Needs: Review discharge instructions, limitations, medications and plan to follow up with community supports and community providers. Review discharge plan of care as prescribed, discuss ask me three and goals of self care. Services Needed at Discharge: Home Health Care Services (New [facility] RN/PT/OT/[facility]. Resumption of CFC services and caregiver services through [facility]. CM notified Cari at [facility] and Erna at [facility]. )
[2022-08-19] MEDS: Normal Saline Flush 10 ML SYR IVP (10:19)
[2022-08-19] MEDS: MAGNESIUM SULFATE 4 GM/100 ML BAG IVPB (10:20)
[2022-08-19] MEDS: Acetaminophen 325 MG TAB PO (10:43)
--- NOTE | 2022-08-19 10:44 | W.PM.DS.N ---
Date of service: 08/19/22 Time of Service: 10:44 DS: Diagnosis Discharge Diagnosis (1) Acute UTI: Status: Acute (2) Acute dehydration: Status: Resolved (3) Diabetes type 2, uncontrolled: Status: Chronic (4) Nicotine dependence: Status: Chronic (5) COPD, mild: Status: Chronic (6) Chronic kidney disease, stage III (moderate): Status: Chronic (7) Coronary artery disease involving quinault coronary artery of quinault heart: Status: Chronic (8) Hypertension: Status: Chronic (9) Hypothyroidism: Status: Chronic (10) DVT prophylaxis: Status: Acute (11) Discharge planning issues: Status: Acute Discharge Plan Disposition Patient Disposition: Home W/Home Health Services Condition: Fair Discharge Details Reason For Visit: UTI; Hyperglycemia Admit Date/Time: 08/13/22 13:14 Admit Provider: Naya López Attending Provider: Naya López Primary Care Provider: Mai Castelan Hospital Course Hospital Course: 67-year-old female patient with past medical history of diabetes, pulmonary embolism pulmoinary hypertension, GERD, CAD, CKD, COPD, AAA, with a chronic indwelling urinary catheter presented to the [facility] ED 08/13/2022 after multiple recent falls at home, most recently from her wheelchair with hospitalization , She presented to the ED this time with complaint of nausea and vomiting for 24h and evidence of UTI.? Patient also reported?focal weakness in her left side and some change in her speech over the past 1 to 2 weeks, which she also has noted in past ED visits.??Imaging unremarkable for traumatic injuries.? Labs consistent with likely mild dehydration.? Likely contributing to dehydration and mild delirium. She was started on zosyn and given an IV fluid bolus inn the ED. ? Patient feeling better after fluids and rest. Given multiple falls, debility and UTI patient was admitted to the medical floor, with consideration of possible referral for short stay rehab.? Her last admission her urine culture grew out E coli; she was given fosfomycin for UTI and for burning, phenazopyridine. On her last hospitalization, we recommended SNF for short term rehab, patient vehemently refused and was discharged to home, that was 08/10/22. Prior visits to ED? 07/31/22,? 08/01/22, 08/03/2022 and 08/04/22.? Today, her vital signs are stable, she refuses SNF again and is requesting to go home. Her labs are remarkable for Magnesium of 1.6, which was repleted prior to discharge. Potassium 4.2; H&H is stable at 9.7 & 31.9. This is day six of antibiotic therapy for UTI. She is discharged with one day of Augmentin, two doses to complete the 7 day course. She has no urinary complaints on discharge. She is started on Magnesium secondary to hypomagnesemia. She has low iron of 16, Transferrin sat 5%, Folate 8.7. She also has Low vitamin B12 of 193, consider outpatient B12 replacement and outpatient iron infusions. We discussed her probable failure to be at home as she is requiring a lot of assistance and concern for her being injured. She has capacity and is yelling and swearing at the nursing staff stating she will go AMA if not discharged. She tells me she does understand my concerns but I can go to [facility]. She is discharged to home with her son, aixa. Home health nursing, PT, OT and ANODE MACHINE OPERATOR ordered, strong suspicion she will decline their services as she has in the past, but she would benefit greatly from services. ? Home Meds and New Rx's Prescriptions: New magnesium chloride 64 mg magnesium tablet 64 mg PO DAILY Qty: 30 0RF Continued gabapentin 300 mg capsule 300 mg PO BID Qty: 180 3RF Rx Instructions: Dose increase 03/01/22 for chronic lumbar spine pain/spinal stenosis (DME) lancets Misc See Rx Instructions .MEDSUPPLY Qty: 100 3RF Rx Instructions: As directed to check blood glucose daily. On insulin. Dispense covered brand. mupirocin 2 % ointment 1 applic topical BID-TID Qty: 15 0RF Rx Instructions: May substitute with cream if less expensive; apply thin layer to swollen & red finger until resolved Rybelsus 3 mg tablet 3 mg PO DAILY Qty: 30 0RF Rx Instructions: Uncontrolled diabetes (DME) Blood Glucose Test Strip See Rx Instructions .MEDSUPPLY Qty: 100 3RF Rx Instructions: As directed to check blood glucose daily. On insulin. Dispense covered brand. insulin degludec [Tresiba FlexTouch U-200] 200 unit/mL (3 mL) insulin pen 50 unit subcut DAILY MDD 80 units Qty: 12 11RF Rx Instructions: Uncontrolled T2DM (DME) Air mattress See Rx Instructions .Route .MEDSUPPLY Qty: 1 0RF Hold Instructions: Home Medication placed on hold at Doctor's office Rx Instructions: As directed (DME) Wheelchair (manual) regular See Rx Instructions .Route .MEDSUPPLY Qty: 1 0RF Rx Instructions: As directed; currently has Tracer EX2 model--please replace with similar; thank you. 03/01/22. (DME) blood-glucose meter [[employer] Ultra2 Meter] Kit See Rx Instructions .ROUTE .MEDSUPPLY Qty: 1 0RF Rx Instructions: to check BS qid for DM E11.9 management to keep A1c under 8 metformin 500 mg tablet extended release 24 hr 500 mg PO DAILY Qty: 90 3RF Rx Instructions: Diabetes--take with food rosuvastatin 10 mg tablet 10 mg PO DAILY Qty: 90 3RF pantoprazole 40 mg tablet,delayed release (DR/EC) 40 mg PO DAILY Qty: 90 3RF metoprolol succinate 25 mg tablet extended release 24 hr 25 mg PO DAILY Qty: 90 3RF albuterol sulfate [ProAir HFA] 90 mcg/actuation HFA aerosol inhaler 1 - 2 puff Inhalation Q4H PRN Qty: 18 3RF budesonide-formoterol [Symbicort] 80-4.5 mcg/actuation HFA aerosol inhaler 2 puff Inhalation BID Qty: 3 3RF Hold Instructions: Home Medication placed on hold at Doctor's office Patient Comments: 04/01/17 Patient unsure of last dose. Maybe last Thur, but patient is noncompliant with medications CDG acetaminophen [Tylenol Arthritis Pain] 650 mg tablet extended release 1,300 mg PO Q12H Qty: 360 3RF Rx Instructions: Chronic pain--do not exceed 4G in 24 hours tylenol (DME) blood sugar diagnostic Strip See Dose Instructions .ROUTE .MEDSUPPLY Qty: 100 3RF Dose Instruction: As directed Rx Instructions: One Touch Ultra,E 11.40 tests daily on insulin (DME) Novofine Autocover 30 gauge x 1/3 needle See Rx Instructions .ROUTE .MEDSUPPLY Qty: 100 3RF Rx Instructions: For DM E11.40 to maintain A1C <8, monitoring daily naproxen 375 mg tablet 375 mg PO .daily in AM PRN (Reason: pain) Qty: 90 0RF Rx Instructions: Chronic pain nicotine 14 mg/24 hr patch 24 hour 1 patch transdermal Q24H Qty: 14 0RF Rx Instructions: Nicotine cessation melatonin 3 mg capsule 3 mg PO HS Qty: 90 0RF levothyroxine 50 mcg tablet 50 mcg PO DAILY nystatin 100,000 unit/gram Powder 1 applic topical BID Qty: 0 0RF Discharge Instructions Instructions: Amoxicillin/Clavulanate Potassium (By mouth), Urinary Tract Infection in Women (DC) Additional Instructions: Take Augmenting 875 mg/125 mg one tablet tonight and one tablet tomorrow morning. Drink plenty of water. Start Magnesium 64 mg one table daily for chronic low magnesium levels. ` Stand Alone Forms: Nursing Discharge Form Referrals: Mai Castelan SURGICAL TECHNOLOGY INSTRUCTOR [Primary Care Provider] - (Please call Saturday to make an Appointment [phone] She has low iron of 16, Transferrin sat 5%, Folate 8.7. She also has Low vitamin B12 of 193, consider outpatient B12 replacement and outpatient iron infusions. We discussed her probable failure to be at home as she is requiring a lot of assistance and concern for her being injured. She has capacity and is yelling and swearing at the nursing staff stating she will go AMA if not discharged. She tells me she does understand my concerns but I can go to [facility]. She is discharged to home with her son, aixa. Home health nursing, PT, OT and ANODE MACHINE OPERATOR ordered, strong suspicion she will decline their services as she has in the past, but she would benefit greatly from services. ?) Activity:: Walker Equipment/Supplies:: No Equipment Needed Diet:: Carb Counting Discharge Orders Discharge Orders: Discharge Order (Routine); Ordered 08/19/22 Ordered By: Nicole Graham DS: Summary Time Spent with Patient providing and/or coordinating discharge services: Greater than 30 minutes Status at Discharge Functional status at discharge: uses cane/walker Overall status at discharge: patient is back to baseline Mental Status: mental status grossly normal Speech and Movement: speech and movement normal Mood: congruent mood Affect: other (flat) Exam Const Orientation: alert, awake, oriented to person and oriented to place HENID Mouth: mucous membranes dry Eyes Conjunctivae: normal conjunctivae Sclera: normal sclerae Neck Neck: trachea midline and supple Resp Auscultation: clear to auscultation bilaterally, no rales, no rhonchi and no wheezes Cardio Rhythm: regular rhythm Heart Sounds: murmur GI Palpation: soft, not firm, no guarding, no masses, not rigid and nontender Skin General skin exam: no rashes or lesions noted Neuro General: patient alert and patient awake Cognition: abnormal cognition (some confusion, poor historian) Extrem General: no edema Psych Appearance: grossly normal Mental Status: mental status grossly normal Speech and Movement: speech and movement normal Mood: congruent mood Affect: other (flat) DS: Data Vitals/I&O Vitals and I&O: Vital Signs Temperature 36.6 C 08/19/22 06:32 Temperature Source Tympanic 08/19/22 06:32 Pulse 87 08/19/22 06:32 Pulse Rhythm Regular 08/19/22 00:00 Pulse 78 08/13/22 13:50 Respiratory Rate 18 08/19/22 06:32 Respiratory Effort Normal, Non-Labored 08/19/22 00:00 Respiratory Depth Normal 08/19/22 00:00 Respiratory Pattern Normal 08/19/22 00:00 Blood Pressure 129/69 08/19/22 06:32 Blood Pressure Mean 81 08/13/22 13:45 Blood Pressure Position Supine 08/13/22 09:39 Pulse Oximetry 93 08/19/22 06:32 Oxygen Delivery Method Room Air 08/19/22 06:32 Oxygen Flow Rate 0 08/19/22 06:32 Pain Level 7 08/18/22 23:37 Intake & Output 08/18/22 08/18/22 08/19/22 11:59 23:59 11:59 Intake Total 100 / 300 200 / 300 100 / 100 Output Total 550 / 2100 1550 / 2100 375 / 375 Balance -450 / -1800 -1350 / -1800 -275 / -275 Weight 82.2 kg 80.4 kg Intake: IV 100 / 300 200 / 300 100 / 100 Output: Urine 550 / 2100 1550 / 2100 375 / 375 Other: Urine Color Yellow Yellow Pale Urine Appearance Clear Clear Clear Urine Odor Strong None Normal Comment dry at this time Stool Occult Blood Negative Stool Size Moderate Stool Characteristics Formed Voiding Methods Bedpan Bedpan Bedpan Data Completed and Pending Labs on day of discharge: Labs from last 24 hours 08/19/22 08/19/22 07:15 07:15 WBC 7.25 RBC 3.93 Hgb 9.7 L Hct 31.9 L MCV 81 MCH 24.7 L MCHC 30.4 L RDW 16.1 H Plt Count 245 MPV 10.8 Immature Gran % 1.2 Neutrophils % 62.9 Lymphocytes % 24.1 Monocytes % 7.0 Eosinophils % 4.1 Basophils % 0.7 Nucleated RBC % 0.0 Absolute Neutrophils 4.55 Absolute Lymphocytes 1.75 Absolute Monocytes 0.51 Absolute Eosinophils 0.30 Absolute Basophils 0.05 Sodium 138 Potassium 4.2 Chloride 105 Carbon Dioxide 25.1 Anion Gap 7.9 BUN 23 H Creatinine 0.8 Est GFR (CKD-EPI 2020) 80.21 Glucose 234 H Calcium 10.2 H Magnesium 1.6 L PFSH All Active Problems (Updated 08/16/22 @ 22:48 by Treva Jacobs, DAVID) DVT prophylaxis (Acute) Discharge planning issues (Acute) Low hemoglobin (Acute) Hyperglycemia (Acute) Bacterial UTI (Acute) Acute UTI (Acute) Falls (Acute) Acute delirium (Acute) Eschar of toe (Acute ~05/2022) Cellulitis of toe of right foot (Acute ~05/2022) Nail dystrophy (Acute) Diabetic foot infection (Acute) Nail avulsion, toe (Acute) L great toe Urge incontinence (Chronic) Declines RX briefs Self-care deficit (Acute) Bedbound (Acute) gets up with WC to BR Recurrent falls (Chronic) Difficulty transferring from bed to wheelchair (Chronic) DME hospital bed has helped Difficulty transferring from toilet to wheelchair (Chronic) Steph investigating commode Wheelchair bound (Chronic) no falls since starting using WC permanent need severe diabetic nephropathy needs more adaptive equipment in the home Cognitive attention deficit (Chronic) needs multiple repetitions of information Diabetes type 2, uncontrolled (Chronic) though she has had education over the years, still seems not to understand carb counting ideally needs someone to educate son as he buys her food also needs hands-on teaching with nutrition labels, etc. 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) Goal A1c < 7.5% Schein, neuropathy; Charcot's foot 03/19/13 [employer] Spinal stenosis of lumbar region with neurogenic claudication (Chronic 12/08/13) 04/13/2013 MRI Lumbar Spine: Facet arthropathy, DJD, L4-5, L5-S1 central spinal and neural foraminal stenosis Neurosurgery referral, but not a surgical candidate [facility] chronic pain service Chronic Pain [facility] Pain Center consult 10/26/15 [facility] Spine [facility] consult 03/04/17 (Sanket Sawant MD) Other and unspecified hyperlipidemia (Chronic 08/14/12) Esophageal reflux disease (Chronic 07/24/11) UPPER GI SERIES 11/14/2012, MOD HIATAL HERNIA SEVERE GERD Coronary artery disease involving quinault coronary artery of quinault heart (Chronic) INFERIOR CO 1996, 100% RCA occlusion; large inf defect on perfusion scan, dr Fair Chronic kidney disease, stage III (moderate) (Chronic 08/14/12) Cortical atrophy R kidney on CT 07/2014; multiple cysts Cardiomyopathy (Chronic) Dr Fair, EF 45% Jun 2014 ECHO (h/o much worse) 10/2016 ECHO: EF 40-45% 10/2016 MPI: no acute, but persistent old infarct COPD, mild (Chronic 07/02/17) PFTs Abdominal aortic aneurysm (Chronic 11/27/12) Identified 10/31/12 CT abd-pelvis; 4cm; stable 4.1 cm 07/2014 CT, 4.3cm 11/2016, 5.5cm 03/04/17 ([facility]). not sure if it is worth following her AAA, as she is not surgical candidate defer to PCP Chronic back pain (Chronic) Lumbar spinal stenosis-->RX FENTANYL initiated inpt 12/2021; PCP rx'ing with [facility] under palliative conditions (pt cannot come in for OVs) Hypothyroidism (Chronic) Hypertension (Chronic) Marijuana dependence (Chronic) Daily use since 17yo-->helps with mood & pain Medical History (Updated 08/16/22 @ 22:48 by Treva Jacobs, DAVID) Acute hyperglycemia Anaerobic bacteremia Arthropathy associated with neurological disorder (03/19/13) Dr. Ward Bacteremia due to Gram-positive bacteria Calculus of kidney and ureter Carpal tunnel syndrome (08/14/12) resolved s/p b/l release Cellulitis of foot Dark emesis Depressive disorder (08/14/12) 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 Guerra DJD of right shoulder (01/01/13) 12/2012 x-ray severe DJD glenohumeral joint Dr. Guerra; not a surgical candidate for replacement DNI (do not intubate) DNR (do not resuscitate) Encounter for hospice care Episode of seizures in July 2012 Fall at home Goals of care, counseling/discussion DNR/DNI COLST done wants to stay home may need new agent if/when Steph moves out of state as planned Iron deficiency anemia Mass of both parotid glands Abnormal CT 08/2019 Mild pulmonary hypertension Nausea and vomiting (08/01/14) a. previous history of possible marijuana induced hyperemesis Osteoarthritis of left elbow Palliative care patient Perirectal abscess With associated hospitalization 2019 POLST (Physician Orders for Life-Sustaining Treatment) signed 06/01/20 Pulmonary embolism (~12/2021) Never started anticoagulation RLS (restless legs syndrome) Tinea corporis Surgical History Appendectomy Childhood surgery, no date given by pt.HE Hemiarthroplasty (06/13/15) Dr Charlie Gallardo shoulder History of carpal tunnel release of both wrists (~05/2012) Hx of umbilical hernia repair (09/06/15) Incarcerated umbilical hernia repair (09/06/15) Tonsillectomy childhood surgery, no date given by pt.HE Family History Mother , at 73 yo from dementia Dementia Diabetes Stroke Blind Father , MVA (truck) accident at 45yo No problems noted. Sister Age: 62 Thyroid cancer Brother , from complications of diabetes age 60 Diabetes Brother Diabetes Heart disease Colon cancer Ulcerative colitis Sister Obesity Prediabetes Arthritis Son Substance abuse attends [facility]; h/o heroin and other opioid addiction Other FH: mental illness Social History Smoking/Tobacco Use Status: Current every day Tobacco Type: cigarettes Tobacco: How many years used: 54 Quit status: not considering quitting Counseling given: counseling >3 minutes Smoking risk assessment performed?: Yes Alcohol Intake: former Drug use: Daily Substance use type: marijuana Counseling given: Yes Details: pt states she smokes marijuana on a daily basis x1 per day Adopted: No Caregiver/Support person: Yes Foster care: No Household members: children Housing: house Number of Children: 1 number of grandchildren: 0 Communication Needs: Corrective Lenses Education Level: high school Details: didn't finish sophomore year Do you need help understanding health information?: Always 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; 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 Pets and animals: Yes Current gender identity: female What is your relationship status?: How often do you talk on the phone with friends or family?: three or more times per week How often do you get together with friends or relatives?: twice per week Panel score (0-1 are the most socially isolated patients): 1 What type of physical activity do you participate in: none and wheelchair-bound Special eliana needs: No Seatbelt use: sometimes Working smoke detector in home: Yes Fire extinguisher in home: Yes Do you feel safe at home: Yes (Most of the time, yes I feel better if my son or somebody is there) Do you feel safe in your relationship?: Yes Additional Social history: Patient reports she lives with her son Time Spent with Patient Time Spent with Patient: <45 minutes Time was spent: preparing to see the patient(eg.review tests), ordering medications,tests, procedures, referring, communicating with other health manager primary care, indepentently interpreting results, counseling the patient and care coordination
--- NOTE | 2022-08-19 10:47 | PDOC.HHF2F ---
Home Health Referral Home Health Orders Clinical synopsis of why skilled professionals are needed: 67-year-old female patient with past medical history of diabetes, pulmonary embolism pulmoinary hypertension, GERD, CAD, CKD, COPD, AAA, with a chronic indwelling urinary catheter presented to the [facility] ED 08/13/2022 after multiple recent falls at home, most recently from her wheelchair with hospitalization , She presented to the ED this time with complaint of nausea and vomiting for 24h and evidence of UTI.? Patient also reported?focal weakness in her left side and some change in her speech over the past 1 to 2 weeks, which she also has noted in past ED visits.??Imaging unremarkable for traumatic injuries.? Labs consistent with likely mild dehydration.? Likely contributing to dehydration and mild delirium. She was started on zosyn and given an IV fluid bolus inn the ED. ? Patient feeling better after fluids and rest. Given multiple falls, debility and UTI patient was admitted to the medical floor, with consideration of possible referral for short stay rehab.? Her last admission her urine culture grew out E coli; she was given fosfomycin for UTI and for burning, phenazopyridine. On her last hospitalization, we recommended SNF for short term rehab, patient vehemently refused and was discharged to home, that was 08/10/22. Prior visits to ED? 07/31/22,? 08/01/22, 08/03/2022 and 08/04/22.? Today, her vital signs are stable, she refuses SNF again and is requesting to go home.? Her labs are remarkable for Magnesium of 1.6, which was repleted prior to discharge. Potassium 4.2; H&H is stable at 9.7 & 31.9. This is day six of antibiotic therapy for UTI.? She is discharged with one day of Augmentin, two doses to complete the 7 day course.? She has no urinary complaints on discharge.? We discussed her probably failure to be at home as she is requiring a lot of assistance and concern for her being injured.? She has capacity and is yelling and swearing at the nursing staff stating she will go AMA if not discharged.? She tells me she does understand my concerns but I can go to [facility]. She is discharged to home with her son, stable.? Home health nursing, PT, OT and CHIPPER OPERATOR ordered, strong suspicion she will decline their services as she has in the past, but she would benefit greatly from services. Medical diagnosis necessitation home health referral: UTI; Diabetes; HTN; Recurrent falls; Non-compliance with medication regimen Registered Nurse: Check all that apply Instruct on new or changed medication(s)/assess compliance: Ordered Instruct on, and maintenance of, urinary device: Ordered Physical Therapist: Check all that apply Increase strength & endurance for safe mobility at home: Ordered To design/establish home maintenance program: Ordered Fall reduction therapy program for patient with history of frequent falls: Ordered Home safety evaluation and teaching/gait training including stair management (if applicable): Ordered Occupational Therapist: Evaluate and treat for patient unable to perform ADL/IADL/self-care: Ordered Upper extremity strengthening, range and motion: Ordered Reference And Instruction Librarian: Assist with community resources: Ordered Assist with terminal operator care planning: Ordered Other: Carmel has been having difficulty with independence at home and has been using the 911 system and the ED frequently for non-medical, as well as medical concerns. She is not thriving at home. Once at home, in the non-acutely ill setting, providing and assisting her with community resources and discussion regarding alternative housing, such as assisted living will greatly benefit her. Home Bound Status Requires the aid of supportive device (check all that apply): Wheelchair Assistance of another person (Describe assistance and medical necessity): Carmel is unable to safely ambulate without a device or person; she is experiencing recurrent falls, frequently; concern for injury. Describe why leaving home would require a considerable and taxing effort: Requires frequent rest periods and Safety Concerns: describe (Recurring falls) Encounter Date and Reason: I certify that a FTF encounter for this patient was performed on August 19, 2022 and that such encounter was related to the primary reason the patient requires home health services. The encounter was conducted in the following manner: By me as the certifying physician, OCCUPATIONAL THERAPY DIRECTOR, PA or By an inpatient physician, OCCUPATIONAL THERAPY DIRECTOR or PA during an inpatient stay who communicated findings to me, Certification And Authentication I certify that I composed the above information based on my clinical judgment relating to this patient's medical condition and, if applicable, clinical findings communicated to me by the NPP or inpatient physician who performed the FTF encounter. Name of Provider that will be monitoring home health services: Mai Castelan
== END 2022-08-19 12:17 | disposition home health service (06) | DRG 690 ==
LOC: ER 13:00 → MS 14:17
PROVIDERS: Nurse Practitioner Family; Admitting Provider Internal Medicine; Emergency Provider Student in an Organized Health Care Education/Training Program; PCP Nurse Practitioner Adult Health; Visit Provider Internal Medicine
DX: N39.0 Urinary tract infection, site not specified (principal); K92.0 Hematemesis; I42.9 Cardiomyopathy, unspecified; Z16.24 Resistance to multiple antibiotics; G11.19 Other early-onset cerebellar ataxia; F05 Delirium due to known physiological condition; Z79.4 Long term (current) use of insulin; Z79.84 Long term (current) use of oral hypoglycemic drugs; Z86.711 Personal history of pulmonary embolism; I27.20 Pulmonary hypertension, unspecified; E11.9 Type 2 diabetes mellitus without complications; K21.9 Gastro-esophageal reflux disease without esophagitis; I25.10 Atherosclerotic heart disease of native coronary artery without angina pectoris; N18.9 Chronic kidney disease, unspecified; J44.9 Chronic obstructive pulmonary disease, unspecified; I71.40 Abdominal aortic aneurysm, without rupture, unspecified; R53.1 Weakness; R00.0 Tachycardia, unspecified; I95.9 Hypotension, unspecified; R47.81 Slurred speech; B96.1 Klebsiella pneumoniae [K. pneumoniae] as the cause of diseases classified elsewhere; E83.42 Hypomagnesemia; N39.41 Urge incontinence; Z99.3 Dependence on wheelchair; Z91.199 Patient's noncompliance with other medical treatment and regimen due to unspecified reason; M48.062 Spinal stenosis, lumbar region with neurogenic claudication; G60.9 Hereditary and idiopathic neuropathy, unspecified; E78.5 Hyperlipidemia, unspecified; N18.30 Chronic kidney disease, stage 3 unspecified; E11.22 Type 2 diabetes mellitus with diabetic chronic kidney disease; I25.2 Old myocardial infarction; F12.20 Cannabis dependence, uncomplicated; I12.9 Hypertensive chronic kidney disease with stage 1 through stage 4 chronic kidney disease, or unspecified chronic kidney disease; F17.210 Nicotine dependence, cigarettes, uncomplicated; Z66 Do not resuscitate; R29.6 Repeated falls; Z91.81 History of falling; W19.XXXA Unspecified fall, initial encounter; E86.0 Dehydration; E11.65 Type 2 diabetes mellitus with hyperglycemia; E03.9 Hypothyroidism, unspecified
CPT/HCPCS: 36410; 36415; 51702; 71275; 80048; 80053; 83690; 86850; 86900; 86901; 87040; 87077; 87635; 93005; 94640; 96361; 96365; 96367; 96375; 97110; 97162; 97530; 99285; J1650; 70450; 73110; 74174; 81003; 81015; 82607; 82728; 82746; 83540; 83550; 83605; 83735; 84443; 84484; 85014; 85018; 85025; 85045; 87086; 87186; 93010; 94664; 99222; 99232; 99233; 99239; J1756; J2543; J3475; J3490

== ENCOUNTER 2022-08-22 09:23 | Inpatient (IN) | payer OTHER, MEDICAID, SELFPAY ==
[2022-08-22 09:23] VITALS: BP 128/77; PULSE 85; RESP 16; TEMP 36.8; O2SAT 93
[2022-08-22 09:35] VITALS: RESP 16
--- NOTE | 2022-08-22 09:45 | RT.EKG_ITS ---
APPROVED REPORT Exam: Resting ECG Reason for Exam: weakness Patient Location: E HR:73 bpm ECG Measurements Heart Rate 73 AXIS MN 217 P 5 QRSd 127 QRS 38 QT 413 T 6 QTc 456 Conclusion Sinus rhythm...normal P axis, V-rate 60- 99 Borderline prolonged MN interval...MN >212, V-rate 50- 90 Nonspecific intraventricular conduction delay...QRSd >115mS, not LBBB/RBBB Inferior infarct, old...Q >35mS, II III aVF Probable anterolateral infarct, old...Q>35mS, abnrm ST-T, V2-V6,I,aVL Physician: stable, prolonged MN, suspect 1st degree block in conjection with IVCD
[2022-08-22 10:05] LABS: Abs Immature Grans 0.04 10^3/uL (0.0-0.06); Absolute Basophil Count 0.04 10^3/uL (0.0-0.2); Absolute Eosinophil Count 0.15 10^3/uL (0.0-0.7); Absolute Lymphocyte Count 1.25 10^3/uL (1.2-3.4); Absolute Monocyte Count 0.41 10^3/uL (0.1-0.8); Absolute Neutrophil Count 4.67 10^3/uL (1.2-6.7); Basophils % 0.6; Eosinophils % 2.3; HCT 33.7 % (36.0-46.0); HGB 10.4 g/dL (11.2-15.7); Immature Grans % 0.6; Lymphocytes % 19.1; MCH 25.2 pg (27.0-33.0); MCHC 30.9 % (32.0-36.0); MCV 82 fL (80-95); MPV 10.4 fL (8.0-11.0); Monocytes % 6.3; Neutrophils % 71.1; Platelet Count 249 10^3/uL (130-400); RBC 4.12 10^6/uL (3.93-5.22); RDW 17.6 % (11.7-14.6); RDW-SD 48.4 fL; WBC 6.56 10^3/uL (4.4-10.8)
[2022-08-22] MEDS: Lactated Ringers 1,000 ML 1000 ML IV (10:13)
[2022-08-22] MEDS: ACETAMINOPHEN 1,000 MG/100 ML BTL 400 MG IVPB ×2 (10:14→18:17)
[2022-08-22] MEDS: Ondansetron 4 MG/2 ML VIAL IVP (10:14)
[2022-08-22 10:21] LABS: ALT 20 U/L (14-59); AST 16 U/L (15-37); Albumin 3.5 g/dL (3.4-5.0); Alkaline Phosphatase 103 U/L (46-116); Anion Gap 8.1 mmol/L (3-11); BUN 20 mg/dL (7-18); Bilirubin, Total 0.4 mg/dL (0.2-1.0); CO2 23.9 mmol/L (21.0-32.0); CREATININE 0.8 mg/dL (0.55-1.02); Calcium 10.2 mg/dL (8.5-10.1); Chloride 105 mmol/L (98-107); Estimated GFR 80.21 (mL/min/1.73m2); Glucose 336 mg/dL (74-106); Lipase 39 U/L (16-77); Magnesium 1.6 mg/dL (1.8-2.4); Potassium 4.7 mmol/L (3.5-5.1); Sodium 137 mmol/L (136-145); Total Protein 6.9 g/dL (6.4-8.2); Troponin I < 50 ng/L (<or=60)
--- NOTE | 2022-08-22 10:30 | DI.CT_ITS ---
Exam(s) CT ABDOMEN PELVIS W EXAM: CT ABDOMEN PELVIS W CLINICAL HISTORY: abdominal pain. TECHNIQUE: Imaging Protocol: Axial computed tomography images with coronal and sagittal reformatted images were created and reviewed CONTRAST MATERIAL: Intravenous: Omnipaque-350 100cc Oral: None COMPARISON: CT CT THORAX ABD/PEL CTA from 08/13/2022 FINDINGS: VISUALIZED LUNG BASES: No nodules nor pleural effusions evident. Large hiatal hernia again noted.x ABDOMEN: There is no ascites. LIVER: There are no focal hepatic lesions evident. Calcified granuloma again noted right hepatic lob e. No ominous focal hepatic lesions. GALLBLADDER/BILIARY: No obvious gallbladder pathology. CBD is not dilated. PANCREAS: Prominent calcification again noted in the lateral aspect of pancreatic head. No obvious h ypodense mass around this area in the pancreas nor in the uncinate process and the pancreatic duct is not dilated. No obvious mass in the body and tail the pancreas. SPLEEN: Spleen is not enlarged. No obvious intrasplenic lesions. Splenic and portal veins are paten t. ADRENALS: There are no significant adrenal masses. KIDNEYS:Multiple cysts of both kidneys again noted. These are benign cysts. The largest is partiall y exophytic off the lateral aspect of the left kidney and measures 2.7 x 2.2 cm. No solid renal mass es nor calculi nor hydronephrosis. No hydroureter. Hartley catheter noted in the urinary bladder.. ABDOMINAL AORTA: Prominent abdominal aorta aneurysm noted which presently exhibits maximum diameter o f 5.6 cm. The amount of mural thrombus again noted be prominent and the arterial megaly is again not ed to continue beyond the aortic bifurcation into the iliac arteries which both exhibit diameters of 3 cm. No obvious rupture at this time. External iliac arteries exhibit normal diameters. There is also aneurysmal dilatation of the right internal iliac artery again noted, exhibiting diameter 1.5 cm . LYMPH NODES:There is no retroperitoneal nor paraaortic adenopathy. ABDOMINAL WALL: No evidence of significant anterior abdominal wall nor inguinal hernia. GI: There is no evidence of bowel obstruction, free air, nor abscess. PELVIS: GI: No evidence of appendicitis.There is extensive sigmoid diverticulosis. Cannot exclude subtle dick e of acute diverticulitis. LYMPH NODES: There is no intrapelvic nor inguinal adenopathy. REPRODUCTIVE: Multiple uterine fibroids again noted. No abnormal adnexal masses. URINARY BLADDER: Hartley catheter and air in the lumen. OSSEOUS: No fractures and no significant osseous lesions. Multilevel advanced chronic degenerative disc disease throughout the lumbar spine. IMPRESSION: 1. Compared to prior CT scan of 08/13/2022 there is again noted severe atherosclerotic disease with a n abdominal aortic aneurysm exhibiting maximum diameter 5.6 cm and arterial megaly into the iliac art eries which both exhibit diameters 3 cm. 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 2. Large retrocardiac hiatal hernia again noted. 3. Pancreatic head calcification. No pancreatic malignant-appearing mass nor dilatation of the pancr eatic duct. 4. Extensive sigmoid diverticulosis. Cannot exclude possible subtle case of acute diverticulitis whi ch would be difficult to identify here given the extensive involvement of the sigmoid. 5. Uterine fibroids are again noted. No abnormal adnexal masses. 6. There is a Hartley catheter in the bladder lumen. 7. Calcification again noted in the pancreatic head. No ominous hypodense pancreatic mass nor dilat ation of the the pancreatic duct. No peripancreatic fluid collections. Called to ER provider. RADIATION DOSE DELIVERED: 1,197.69mGy.cm Total DLP DATA REPOSITORY: All CT scans at this facility are submitted to the National Radiology Data Registry (NRDR) Dose Index Registry (DIR) with the [employer] (ACR). RADIATION OPTIMIZATION: All CT scans at this facility use at least one of these dose optimization te chniques: automated exposure control; mA and/or kV adjustment per patient size (includes targeted exa ms where dose is matched to clinical indication); or iterative reconstruction.
[2022-08-22 10:43] LABS: Bilirubin Negative (Negative); Blood Trace-intact (Negative); Clarity Cloudy (Clear); Glucose 500 mg/dL (Negative); Ketones Negative (Negative); Leukocyte Esterase Negative (Negative); Nitrite Negative (Negative); Specific Gravity >= 1.030 (1.005-1.025); Urobilinogen 0.2 mg/dL (Up to 0.2)
--- NOTE | 2022-08-22 10:43 | ED.GENADUL_ITS ---
Discharge Plan Disposition Patient Disposition: Home Discharge Details Clinical Impression: Recurrent falls, Hyperglycemia, Diabetes type 2, uncontrolled, Hypomagnesemia Primary Care Provider: Mai Castelan ED Provider: Joselin Almeida Discharge Data Discharge Date/Time-TO BE ENTERED AT DEPARTURE: 08/22/22 14:51 Medical Decision Making 67-year-old female known to this facility with chronic multiple comorbidities Complaining of abdominal pain which is acute on chronic known abdominal aortic aneurysm, no obvious rupture or evidence of acute intra- abdominal pathology Unable to ambulate secondary to weakness Labs as not significantly changed from prior, given magnesium for slight hypomagnesemia, 1.6 EKG without significant acute abnormality Will likely need placement, unable to ambulate independently and son is unable to care for patient Care management involved Discussed with hospitalist, will admit to the hospital at this time Hyperglycemia, 336, no evidence of diabetic ketoacidosis, no evidence of acute urinary tract infection at this time Medical Records Medical records reviewed: Yes I reviewed the patient's medical records. Lab Data Lab results reviewed: Yes I reviewed the patient's lab results. HPI General Date/Time Provider Initiated Documentation: 08/22/22 09:29 . HPI Narrative: This 67-year-old female presents with report of diffuse abdominal and leg pain. States that she has been nauseous and generally feeling unwell and weak. She states she is unable to get out of her bed secondary to weakness. She denies any chest pain or new shortness of breath. She denies any fever or chills. Denies any falls since being discharged home. Per EMS patient incontinent of urine and stool. Related Data Home Medications Medication Instructions Recorded Confirmed blood-glucose meter (OneTouch #1 ea 04/19/21 08/22/22 Ultra2 Meter kit) Air mattress #1 ea 06/15/21 08/22/22 Wheelchair (manual) #1 ea 03/01/22 08/22/22 metformin 500 mg tablet,extended 500 mg PO DAILY #90 tabs 03/07/22 08/22/22 release 24 hr gabapentin 300 mg capsule 300 mg PO BID #180 caps 04/09/22 08/22/22 metoprolol succinate 25 mg 25 mg PO DAILY #90 tabs 05/30/22 08/22/22 tablet,extended release 24 hr pantoprazole 40 mg tablet,delayed 40 mg PO DAILY #90 tab-caps 05/30/22 08/22/22 release rosuvastatin 10 mg tablet 10 mg PO DAILY #90 tabs 05/30/22 08/22/22 levothyroxine 50 mcg tablet 50 mcg PO DAILY 06/01/22 08/22/22 nystatin 100,000 unit/gram topical 1 applic topical BID #0 grams 06/05/22 08/22/22 powder albuterol sulfate 90 mcg/actuation 1 - 2 puff inhalation Q4H PRN #18 06/06/22 08/22/22 aerosol inhaler (ProAir HFA) grams budesonide-formoterol HFA 80 2 puff inhalation BID ##3 06/06/22 08/22/22 mcg-4.5 mcg/actuation aerosol inhaler (Symbicort) acetaminophen 650 mg 1,300 mg PO Q12H #360 tabs 06/29/22 08/22/22 tablet,extended release (Tylenol Arthritis Pain) lancets #100 ea 06/29/22 08/22/22 mupirocin 2 % topical ointment 1 applic topical BID-TID #15 grams 06/29/22 08/22/22 semaglutide 3 mg tablet (Rybelsus) 3 mg PO DAILY #30 tabs 06/29/22 08/22/22 blood sugar diagnostic (Blood #100 ea 07/02/22 08/22/22 Glucose Test strips) insulin degludec 200 unit/mL (3 50 unit (0.25 mL) subcut DAILY #12 07/20/22 08/22/22 mL) subcutaneous pen (Tresiba mL FlexTouch U-200 insulin) blood sugar diagnostic #100 ea 07/23/22 08/22/22 pen needle, diabetic, safety 30 #100 ea 07/28/22 08/22/22 gauge x 1/3 (Novofine Autocover) naproxen 375 mg tablet 375 mg PO .daily in AM PRN pain 08/06/22 08/22/22 #90 tabs nicotine 14 mg/24 hr daily 1 patch transdermal Q24H #14 ea 08/06/22 08/22/22 transdermal patch melatonin 3 mg capsule 3 mg PO HS sleep #90 caps 08/08/22 08/22/22 magnesium chloride 64 mg 64 mg PO DAILY #30 tabs 08/19/22 08/22/22 (magnesium chloride) tablet Previous Rx's Medication Instructions Recorded blood-glucose meter (OneTouch #1 ea 04/19/21 Ultra2 Meter kit) Air mattress #1 ea 06/15/21 Wheelchair (manual) #1 ea 03/01/22 metformin 500 mg tablet,extended 500 mg PO DAILY #90 tabs 03/07/22 release 24 hr gabapentin 300 mg capsule 300 mg PO BID #180 caps 04/09/22 metoprolol succinate 25 mg 25 mg PO DAILY #90 tabs 05/30/22 tablet,extended release 24 hr pantoprazole 40 mg tablet,delayed 40 mg PO DAILY #90 tab-caps 05/30/22 release rosuvastatin 10 mg tablet 10 mg PO DAILY #90 tabs 05/30/22 nystatin 100,000 unit/gram topical 1 applic topical BID #0 grams 06/05/22 powder albuterol sulfate 90 mcg/actuation 1 - 2 puff inhalation Q4H PRN #18 06/06/22 aerosol inhaler (ProAir HFA) grams budesonide-formoterol HFA 80 2 puff inhalation BID ##3 06/06/22 mcg-4.5 mcg/actuation aerosol inhaler (Symbicort) acetaminophen 650 mg 1,300 mg PO Q12H #360 tabs 06/29/22 tablet,extended release (Tylenol Arthritis Pain) lancets #100 ea 06/29/22 mupirocin 2 % topical ointment 1 applic topical BID-TID #15 grams 06/29/22 semaglutide 3 mg tablet (Rybelsus) 3 mg PO DAILY #30 tabs 06/29/22 blood sugar diagnostic (Blood #100 ea 07/02/22 Glucose Test strips) insulin degludec 200 unit/mL (3 50 unit (0.25 mL) subcut DAILY #12 07/20/22 mL) subcutaneous pen (Tresiba mL FlexTouch U-200 insulin) blood sugar diagnostic #100 ea 07/23/22 pen needle, diabetic, safety 30 #100 ea 07/28/22 gauge x 1/3 (Novofine Autocover) naproxen 375 mg tablet 375 mg PO .daily in AM PRN pain 08/06/22 #90 tabs nicotine 14 mg/24 hr daily 1 patch transdermal Q24H #14 ea 08/06/22 transdermal patch melatonin 3 mg capsule 3 mg PO HS sleep #90 caps 08/08/22 magnesium chloride 64 mg 64 mg PO DAILY #30 tabs 08/19/22 (magnesium chloride) tablet Allergies Allergy/AdvReac Type Severity Reaction Status Date / Time bupropion HCl Allergy Severe seizures Verified 08/22/22 09:31 [From Wellbutrin] carvedilol [From Coreg] Allergy Mild Itching Verified 08/22/22 09:31 morphine AdvReac Unknown nausea Verified 08/22/22 09:31 General Stated Complaint: GenMedical DINESH: 3 PFSH All Active Problems (Updated 08/23/22 @ 16:45 by SU Montes) Hypomagnesemia (Acute) Hyperglycemia (Acute) Acute UTI (Acute) Falls (Acute) Eschar of toe (Acute ~05/2022) Cellulitis of toe of right foot (Acute ~05/2022) Nail dystrophy (Acute) Diabetic foot infection (Acute) Nail avulsion, toe (Acute) L great toe Urge incontinence (Chronic) Declines RX briefs Recurrent falls (Chronic) Diabetes type 2, uncontrolled (Chronic) though she has had education over the years, still seems not to understand carb counting ideally needs someone to educate son as he buys her food also needs hands-on teaching with nutrition labels, etc. 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) Goal A1c < 7.5% Schein, neuropathy; Charcot's foot 03/19/13 [employer] Spinal stenosis of lumbar region with neurogenic claudication (Chronic 12/08/13) 04/13/2013 MRI Lumbar Spine: Facet arthropathy, DJD, L4-5, L5-S1 central spinal and neural foraminal stenosis Neurosurgery referral, but not a surgical candidate [facility] chronic pain service Chronic Pain [facility] Pain Center consult 10/26/15 [facility] Spine Center consult 03/04/17 (Sanket Sawant MD) Other and unspecified hyperlipidemia (Chronic 08/14/12) Esophageal reflux disease (Chronic 07/24/11) UPPER GI SERIES 11/14/2012, MOD HIATAL HERNIA SEVERE GERD Abdominal aortic aneurysm (Chronic 11/27/12) Identified 10/31/12 CT abd-pelvis; 4cm; stable 4.1 cm 07/2014 CT, 4.3cm 11/2016, 5.5cm 03/04/17 ([facility]). not sure if it is worth following her AAA, as she is not surgical candidate defer to PCP Chronic back pain (Chronic) Lumbar spinal stenosis-->RX FENTANYL initiated inpt 12/2021; PCP rx'ing with [facility] under palliative conditions (pt cannot come in for OVs) Hypothyroidism (Chronic) Hypertension (Chronic) Marijuana dependence (Chronic) Daily use since 17yo-->helps with mood & pain Medical History (Updated 08/23/22 @ 16:45 by SU Montes) Acute hyperglycemia Anaerobic bacteremia Arthropathy associated with neurological disorder (03/19/13) Dr. Ward Bacteremia due to Gram-positive bacteria Calculus of kidney and ureter Cardiomyopathy Dr Fair, EF 45% Jun 2014 ECHO (h/o much worse) 10/2016 ECHO: EF 40-45% 10/2016 MPI: no acute, but persistent old infarct Carpal tunnel syndrome (08/14/12) resolved s/p b/l release Cellulitis of foot Chronic kidney disease, stage III (moderate) (08/14/12) Cortical atrophy R kidney on CT 07/2014; multiple cysts Cognitive attention deficit needs multiple repetitions of information COPD, mild (07/02/17) PFTs Coronary artery disease involving platinum coronary artery of platinum heart INFERIOR ND 1996, 100% RCA occlusion; large inf defect on perfusion scan, dr Fair Dark emesis Depressive disorder (08/14/12) 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 Guerra DJD of right shoulder (01/01/13) 12/2012 x-ray severe DJD glenohumeral joint Dr. Guerra; not a surgical candidate for replacement DNI (do not intubate) DNR (do not resuscitate) Encounter for hospice care Episode of seizures in July 2012 Fall at home Goals of care, counseling/discussion DNR/DNI COLST done wants to stay home may need new agent if/when Steph moves out of state as planned Iron deficiency anemia Mass of both parotid glands Abnormal CT 08/2019 Mild pulmonary hypertension Nausea and vomiting (08/01/14) a. previous history of possible marijuana induced hyperemesis Osteoarthritis of left elbow Palliative care patient Perirectal abscess With associated hospitalization 2019 POLST (Physician Orders for Life-Sustaining Treatment) signed 06/01/20 Pulmonary embolism (~12/2021) Never started anticoagulation RLS (restless legs syndrome) Tinea corporis Surgical History Appendectomy Childhood surgery, no date given by pt.HE Hemiarthroplasty (06/13/15) Dr Charlie Gallardo shoulder History of carpal tunnel release of both wrists (~05/2012) Hx of umbilical hernia repair (09/06/15) Incarcerated umbilical hernia repair (09/06/15) Tonsillectomy childhood surgery, no date given by pt.HE Family History Mother , at 73 yo from dementia Dementia Diabetes Stroke Blind Father , MVA (truck) accident at 45yo No problems noted. Sister Age: 62 Thyroid cancer Brother , from complications of diabetes age 60 Diabetes Brother Diabetes Heart disease Colon cancer Ulcerative colitis Sister Obesity Prediabetes Arthritis Son Substance abuse attends [facility]; h/o heroin and other opioid addiction Other FH: mental illness Social History Smoking/Tobacco Use Status: Current every day Tobacco Type: cigarettes Tobacco: How many years used: 54 Quit status: not considering quitting Counseling given: counseling >3 minutes Smoking risk assessment performed?: Yes Alcohol Intake: former Drug use: Daily Substance use type: marijuana Counseling given: Yes Details: pt states she smokes marijuana on a daily basis x1 per day Adopted: No Caregiver/Support person: Yes Foster care: No Household members: children Housing: house Number of Children: 1 number of grandchildren: 0 Communication Needs: Corrective Lenses Education Level: high school Details: didn't finish sophomore year Do you need help understanding health information?: Always 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; 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 Pets and animals: Yes Current gender identity: female What is your relationship status?: How often do you talk on the phone with friends or family?: three or more times per week How often do you get together with friends or relatives?: twice per week Panel score (0-1 are the most socially isolated patients): 1 What type of physical activity do you participate in: none and wheelchair-bound Special eliana needs: No Seatbelt use: sometimes Working smoke detector in home: Yes Fire extinguisher in home: Yes Do you feel safe at home: Yes (Most of the time, yes I feel better if my son or somebody is there) Do you feel safe in your relationship?: Yes Additional Social history: pt states she lives with son, but he gone all the time. Exam Const General: cooperative and disheveled Orientation: alert and oriented x3 HENMT Other: dry mucous membranes Eyes Sclera: sclerae normal Resp Effort & Inspection: normal respiratory effort Auscultation: clear to auscultation bilaterally Cardio Rate: regular rate Rhythm: regular rhythm GI Other: mild abdominal tenderness no rebound or guarding Skin General skin exam: no rashes or lesions noted Neuro General: patient alert Cognition: normal cognition Course Vital Signs Vital signs: Vital Signs Temperature 36.8 C 08/22/22 09:23 Pulse 85 08/22/22 09:23 Respiratory Rate 16 08/22/22 09:23 Blood Pressure 128/77 08/22/22 09:23 Pulse Oximetry 93 08/22/22 09:23 Temperature 36.8 C 08/22/22 09:23 Temperature Source Oral 08/22/22 09:23 Pulse 85 08/22/22 09:23 Respiratory Rate 16 08/22/22 09:35 Respiratory Effort Normal, Non-Labored 08/22/22 09:35 Respiratory Depth Normal 08/22/22 09:35 Respiratory Pattern Normal 08/22/22 09:35 Blood Pressure 128/77 08/22/22 09:23 Blood Pressure Position Supine 08/22/22 09:23 Pulse Oximetry 93 08/22/22 09:23 Oxygen Delivery Method Room Air 08/22/22 09:23 Oxygen Flow Rate 0 08/22/22 09:23 Pain Level 7 08/22/22 09:23 Lab/Test Results Lab/Test Results: Laboratory Tests Range/Units 08/22/22 08/22/22 09:57 09:57 WBC (4.4-10.8) 10^3/uL 6.56 RBC (3.93-5.22) 10^6/uL 4.12 Hgb (11.2-15.7) g/dL 10.4 L Hct (36.0-46.0) % 33.7 L MCV (80-95) fL 82 MCH (27.0-33.0) pg 25.2 L MCHC (32.0-36.0) % 30.9 L RDW (11.7-14.6) % 17.6 H Plt Count (130-400) 10^3/uL 249 MPV (8.0-11.0) fL 10.4 Immature Gran % 0.6 Neutrophils % 71.1 Lymphocytes % 19.1 Monocytes % 6.3 Eosinophils % 2.3 Basophils % 0.6 Nucleated RBC % (0.0-0.3) % 0.0 Absolute Neutrophils (1.2-6.7) 10^3/uL 4.67 Absolute Lymphocytes (1.2-3.4) 10^3/uL 1.25 Absolute Monocytes (0.1-0.8) 10^3/uL 0.41 Absolute Eosinophils (0.0-0.7) 10^3/uL 0.15 Absolute Basophils (0.0-0.2) 10^3/uL 0.04 Sodium (136-145) mmol/L 137 Potassium (3.5-5.1) mmol/L 4.7 Chloride (98-107) mmol/L 105 Carbon Dioxide (21.0-32.0) mmol/L 23.9 Anion Gap (3-11) mmol/L 8.1 BUN (7-18) mg/dL 20 H Creatinine (0.55-1.02) mg/dL 0.8 Est GFR (CKD-EPI 2020) (mL/min/1.73m2) 80.21 Glucose (74-106) mg/dL 336 H Calcium (8.5-10.1) mg/dL 10.2 H Magnesium (1.8-2.4) mg/dL 1.6 L Total Bilirubin (0.2-1.0) mg/dL 0.4 AST (15-37) U/L 16 ALT (14-59) U/L 20 Alkaline Phosphatase (46-116) U/L 103 Troponin I (<or=60) ng/L < 50 Total Protein (6.4-8.2) g/dL 6.9 Albumin (3.4-5.0) g/dL 3.5 Lipase (16-77) U/L 39
[2022-08-22 11:07] LABS: Creatine Kinase 56 U/L (26-192)
[2022-08-22 11:10] LABS: RBC 0-2 HPF (0-2)
[2022-08-22 11:11] LABS: Bacteria Negative HPF (Negative); C & S Indicated? Yes; Crystals Negative HPF (Negative); Mucus Negative (Negative)
[2022-08-22 11:12] LABS: Epithelial Cells Rare HPF (Negative)
[2022-08-22] MEDS: Normal Saline - Diluent 50 ML VIAL IJ (12:04)
[2022-08-22] MEDS: Omnipaque 350 MG/ML 500 ML BTL-Imaging package 97 ML IJ (12:04)
[2022-08-22] MEDS: Normal Saline Flush 10 ML SYR IVP (12:05)
--- NOTE | 2022-08-22 14:16 | W.PM.HP.N ---
Date of service: 08/22/22 Time of Service: 14:16 Assessment and Plan Assessment and plan (1) Diabetes type 2, uncontrolled: Status: Chronic Assessment and plan: continue current diabetes management as controlled well here A1C 12.4 06/04 Qualifiers: Glycemic state: with hyperglycemia Qualified Code(s): E11.65 - Type 2 diabetes mellitus with hyperglycemia (2) Nicotine dependence: Status: Chronic Assessment and plan: NicoDerm patch Qualifiers: Nicotine product type: cigarettes Substance use status: uncomplicated Qualified Code(s): F17.210 - Nicotine dependence, cigarettes, uncomplicated (3) COPD, mild: Assessment and plan: Continue her Symbicort; no acute exacerbation of her COPD. Continue nicotine replacement with transdermal nicotine. (4) Chronic kidney disease, stage III (moderate): Assessment and plan: Monitor renal function avoid nephrotoxins. Qualifiers: Chronic kidney disease stage 3 subtype: unspecified whether 3a or 3b Qualified Code(s): N18.30 - Chronic kidney disease, stage 3 unspecified (5) Coronary artery disease involving [place] coronary artery of [place] heart: Assessment and plan: Continue rosuvastatin (6) Hypertension: Status: Chronic Assessment and plan: blood pressure controlled Qualifiers: Hypertension type: essential hypertension Qualified Code(s): I10 - Essential (primary) hypertension (7) Hypothyroidism: Status: Chronic Assessment and plan: Continue current levothyroxine. (8) DVT prophylaxis: Status: Deleted Assessment and plan: enoxaparin daily (9) Discharge planning issues: Status: Deleted Assessment and plan: case management will be following for discharge planning. guardianship will be sought. admitted to swing bed 2 for assisted care. discussed with Dr Mosley History of Present Illness History of Present Illness Chief Complaint: weakness Narrative: non compliant, chronically ill female well known to [facility], recent hospitalization for ESBL UTI and discharged to home. since being home she has called 911 approx 9 times for lift assist, etc. lives with son who works during the day and she's clearly unable to care for herself being found sitting in incontinence of urine and stool. son states he's unable to care for her. she has history of being uncooperative, declines rehab. medical screening in ED shows no acute medical condition, she is at her baseline and again, chronically ill. case management consulted for discharge planning and plan is to admit here for assisted care while guardianship obtained and she can be safely placed. Review of Systems All systems reviewed & are unremarkable except as noted in HPI and below PFSH All Active Problems (Updated 08/20/22 @ 00:05 by PACO JIMENEZ) Hyperglycemia (Acute) Acute UTI (Acute) Falls (Acute) Eschar of toe (Acute ~05/2022) Cellulitis of toe of right foot (Acute ~05/2022) Nail dystrophy (Acute) Diabetic foot infection (Acute) Nail avulsion, toe (Acute) L great toe Urge incontinence (Chronic) Declines RX briefs Recurrent falls (Chronic) Diabetes type 2, uncontrolled (Chronic) though she has had education over the years, still seems not to understand carb counting ideally needs someone to educate son as he buys her food also needs hands-on teaching with nutrition labels, etc. 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 Ambulates with cane when out; walker at home 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) Goal A1c < 7.5% Schein, neuropathy; Charcot's foot 03/19/13 [employer] Spinal stenosis of lumbar region with neurogenic claudication (Chronic 12/08/13) 04/13/2013 MRI Lumbar Spine: Facet arthropathy, DJD, L4-5, L5-S1 central spinal and neural foraminal stenosis Neurosurgery referral, but not a surgical candidate [facility] chronic pain service Chronic Pain [facility] Pain Center consult 10/26/15 [facility] [place] Spine Center consult 03/04/17 (Sanket Sawant MD) Other and unspecified hyperlipidemia (Chronic 08/14/12) Esophageal reflux disease (Chronic 07/24/11) UPPER GI SERIES 11/14/2012, MOD HIATAL HERNIA SEVERE GERD Abdominal aortic aneurysm (Chronic 11/27/12) Identified 10/31/12 CT abd-pelvis; 4cm; stable 4.1 cm 07/2014 CT, 4.3cm 11/2016, 5.5cm 03/04/17 ([facility] [place]). not sure if it is worth following her AAA, as she is not surgical candidate defer to PCP Chronic back pain (Chronic) Lumbar spinal stenosis-->RX FENTANYL initiated inpt 12/2021; PCP rx'ing with [facility] under palliative conditions (pt cannot come in for OVs) Hypothyroidism (Chronic) Hypertension (Chronic) Marijuana dependence (Chronic) Daily use since 17yo-->helps with mood & pain Medical History (Updated 08/20/22 @ 00:05 by PACO JIMENEZ) Acute hyperglycemia Anaerobic bacteremia Arthropathy associated with neurological disorder (03/19/13) Dr. Ward Bacteremia due to Gram-positive bacteria Calculus of kidney and ureter Cardiomyopathy Dr Fair, EF 45% Jun 2014 ECHO (h/o much worse) 10/2016 ECHO: EF 40-45% 10/2016 MPI: no acute, but persistent old infarct Carpal tunnel syndrome (08/14/12) resolved s/p b/l release Cellulitis of foot Chronic kidney disease, stage III (moderate) (08/14/12) Cortical atrophy R kidney on CT 07/2014; multiple cysts Cognitive attention deficit needs multiple repetitions of information COPD, mild (07/02/17) PFTs Coronary artery disease involving [place] coronary artery of [place] heart INFERIOR [place] 1996, 100% RCA occlusion; large inf defect on perfusion scan, dr Fair Dark emesis Depressive disorder (08/14/12) 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 Guerra DJD of right shoulder (01/01/13) 12/2012 x-ray severe DJD glenohumeral joint Dr. Guerra; not a surgical candidate for replacement DNI (do not intubate) DNR (do not resuscitate) Encounter for hospice care Episode of seizures in July 2012 Fall at home Goals of care, counseling/discussion DNR/DNI COLST done wants to stay home may need new agent if/when Steph moves out of state as planned Iron deficiency anemia Mass of both parotid glands Abnormal CT 08/2019 Mild pulmonary hypertension Nausea and vomiting (08/01/14) a. previous history of possible marijuana induced hyperemesis Osteoarthritis of left elbow Palliative care patient Perirectal abscess With associated hospitalization 2019 POLST (Physician Orders for Life-Sustaining Treatment) signed 06/01/20 Pulmonary embolism (~12/2021) Never started anticoagulation RLS (restless legs syndrome) Tinea corporis Surgical History Appendectomy Childhood surgery, no date given by pt.HE Hemiarthroplasty (06/13/15) Dr Charlie Gallardo shoulder History of carpal tunnel release of both wrists (~05/2012) Hx of umbilical hernia repair (09/06/15) Incarcerated umbilical hernia repair (09/06/15) Tonsillectomy childhood surgery, no date given by pt.HE Family History Mother , at 73 yo from dementia Dementia Diabetes Stroke Blind Father , MVA (truck) accident at 45yo No problems noted. Sister Age: 62 Thyroid cancer Brother , from complications of diabetes age 60 Diabetes Brother Diabetes Heart disease Colon cancer Ulcerative colitis Sister Obesity Prediabetes Arthritis Son Substance abuse attends [facility]; h/o heroin and other opioid addiction Other FH: mental illness Social History Smoking/Tobacco Use Status: Current every day Tobacco Type: cigarettes Tobacco: How many years used: 54 Quit status: not considering quitting Counseling given: counseling >3 minutes Smoking risk assessment performed?: Yes Alcohol Intake: former Drug use: Daily Substance use type: marijuana Counseling given: Yes Details: pt states she smokes marijuana on a daily basis x1 per day Adopted: No Caregiver/Support person: Yes Foster care: No Household members: children Housing: house Number of Children: 1 number of grandchildren: 0 Communication Needs: Corrective Lenses Education Level: high school Details: didn't finish sophomore year Do you need help understanding health information?: Always 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; 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 Pets and animals: Yes Current gender identity: female What is your relationship status?: How often do you talk on the phone with friends or family?: three or more times per week How often do you get together with friends or relatives?: twice per week Panel score (0-1 are the most socially isolated patients): 1 What type of physical activity do you participate in: none and wheelchair-bound Special eliana needs: No Seatbelt use: sometimes Working smoke detector in home: Yes Fire extinguisher in home: Yes Do you feel safe at home: Yes (Most of the time, yes I feel better if my son or somebody is there) Do you feel safe in your relationship?: Yes Additional Social history: pt states she lives with son, but he gone all the time. Meds Allergies and Home Medications Allergies Allergy/AdvReac Type Severity Reaction Status Date / Time bupropion HCl Allergy Severe seizures Verified 08/22/22 09:31 [From Wellbutrin] carvedilol [From Coreg] Allergy Mild Itching Verified 08/22/22 09:31 morphine AdvReac Unknown nausea Verified 08/22/22 09:31 Home Medications Medication Instructions Recorded Confirmed Type blood-glucose meter (OneTouch #1 ea 04/19/21 08/22/22 Rx Ultra2 Meter kit) Air mattress #1 ea 06/15/21 08/22/22 Rx Wheelchair (manual) #1 ea 03/01/22 08/22/22 Rx metformin 500 mg tablet,extended 500 mg PO DAILY #90 tabs 03/07/22 08/22/22 Rx release 24 hr gabapentin 300 mg capsule 300 mg PO BID #180 caps 04/09/22 08/22/22 Rx metoprolol succinate 25 mg 25 mg PO DAILY #90 tabs 05/30/22 08/22/22 Rx tablet,extended release 24 hr pantoprazole 40 mg tablet,delayed 40 mg PO DAILY #90 tab-caps 05/30/22 08/22/22 Rx release rosuvastatin 10 mg tablet 10 mg PO DAILY #90 tabs 05/30/22 08/22/22 Rx levothyroxine 50 mcg tablet 50 mcg PO DAILY 06/01/22 08/22/22 History nystatin 100,000 unit/gram topical 1 applic topical BID #0 grams 06/05/22 08/22/22 Rx powder albuterol sulfate 90 mcg/actuation 1 - 2 puff inhalation Q4H PRN #18 06/06/22 08/22/22 Rx aerosol inhaler (ProAir HFA) grams budesonide-formoterol HFA 80 2 puff inhalation BID ##3 06/06/22 08/22/22 Rx mcg-4.5 mcg/actuation aerosol inhaler (Symbicort) acetaminophen 650 mg 1,300 mg PO Q12H #360 tabs 06/29/22 08/22/22 Rx tablet,extended release (Tylenol Arthritis Pain) lancets #100 ea 06/29/22 08/22/22 Rx mupirocin 2 % topical ointment 1 applic topical BID-TID #15 grams 06/29/22 08/22/22 Rx semaglutide 3 mg tablet (Rybelsus) 3 mg PO DAILY #30 tabs 06/29/22 08/22/22 Rx blood sugar diagnostic (Blood #100 ea 07/02/22 08/22/22 Rx Glucose Test strips) insulin degludec 200 unit/mL (3 50 unit (0.25 mL) subcut DAILY #12 07/20/22 08/22/22 Rx mL) subcutaneous pen (Tresiba mL FlexTouch U-200 insulin) blood sugar diagnostic #100 ea 07/23/22 08/22/22 Rx pen needle, diabetic, safety 30 #100 ea 07/28/22 08/22/22 Rx gauge x 1/3 (Novofine Autocover) naproxen 375 mg tablet 375 mg PO .daily in AM PRN pain 08/06/22 08/22/22 Rx #90 tabs nicotine 14 mg/24 hr daily 1 patch transdermal Q24H #14 ea 08/06/22 08/22/22 Rx transdermal patch melatonin 3 mg capsule 3 mg PO HS sleep #90 caps 08/08/22 08/22/22 Rx magnesium chloride 64 mg 64 mg PO DAILY #30 tabs 08/19/22 08/22/22 Rx (magnesium chloride) tablet Exam Const Orientation: alert, awake, oriented to person and oriented to place HENIA Mouth: mucous membranes dry Eyes Conjunctivae: normal conjunctivae Sclera: normal sclerae Neck Neck: trachea midline and supple Resp Auscultation: clear to auscultation bilaterally, no rales, no rhonchi and no wheezes Cardio Rhythm: regular rhythm Heart Sounds: murmur GI Palpation: soft, not firm, no guarding, no masses, not rigid and nontender Skin General skin exam: no rashes or lesions noted Neuro General: patient alert and patient awake Cognition: abnormal cognition (some confusion, poor historian) Extrem General: no edema Psych Appearance: grossly normal Mental Status: mental status grossly normal Speech and Movement: speech and movement normal Mood: congruent mood Affect: other (flat) Results Labs 08/22/22 09:57 08/22/22 09:57 Labs: Laboratory Results - last 24 hr 08/22/22 08/22/22 08/22/22 09:57 09:57 09:57 WBC 6.56 RBC 4.12 Hgb 10.4 L Hct 33.7 L MCV 82 MCH 25.2 L MCHC 30.9 L RDW 17.6 H Plt Count 249 MPV 10.4 Immature Gran % 0.6 Neutrophils % 71.1 Lymphocytes % 19.1 Monocytes % 6.3 Eosinophils % 2.3 Basophils % 0.6 Nucleated RBC % 0.0 Absolute Neutrophils 4.67 Absolute Lymphocytes 1.25 Absolute Monocytes 0.41 Absolute Eosinophils 0.15 Absolute Basophils 0.04 Sodium 137 Potassium 4.7 Chloride 105 Carbon Dioxide 23.9 Anion Gap 8.1 BUN 20 H Creatinine 0.8 Est GFR (CKD-EPI 2020) 80.21 Glucose 336 H Calcium 10.2 H Magnesium 1.6 L Total Bilirubin 0.4 AST 16 ALT 20 Alkaline Phosphatase 103 Creatine Kinase 56 Troponin I < 50 Total Protein 6.9 Albumin 3.5 Lipase 39 Urine Color Urine Clarity Urine pH Ur Specific [place] Urine Protein Urine Ketones Urine Blood Urine Nitrite Urine Bilirubin Urine Urobilinogen Ur Leukocyte Esterase Urine RBC Urine WBC Ur Epithelial Cells Urine Crystals Urine Bacteria Urine Mucus Urine Other Ur Culture Indicated? Urine Glucose 08/22/22 08/22/22 10:20 12:54 WBC RBC Hgb Hct MCV MCH MCHC RDW Plt Count MPV Immature Gran % Neutrophils % Lymphocytes % Monocytes % Eosinophils % Basophils % Nucleated RBC % Absolute Neutrophils Absolute Lymphocytes Absolute Monocytes Absolute Eosinophils Absolute Basophils Sodium Potassium Chloride Carbon Dioxide Anion Gap BUN Creatinine Est GFR (CKD-EPI 2020) Glucose Calcium Magnesium Total Bilirubin AST ALT Alkaline Phosphatase Creatine Kinase Troponin I Cancelled Total Protein Albumin Lipase Urine Color Yellow Urine Clarity Cloudy Urine pH 6.0 Ur Specific [place] >= 1.030 H Urine Protein 100 H Urine Ketones Negative Urine Blood Trace-intact H Urine Nitrite Negative Urine Bilirubin Negative Urine Urobilinogen 0.2 Ur Leukocyte Esterase Negative Urine RBC 0-2 Urine WBC 10-20 H Ur Epithelial Cells Rare Urine Crystals Negative Urine Bacteria Negative Urine Mucus Negative Urine Other Many Yeast Ur Culture Indicated? Yes Urine Glucose 500 H Last Vital Signs Temp 36.8 C 08/22/22 09:23 Pulse 85 08/22/22 09:23 Resp 16 08/22/22 09:35 BP 128/77 08/22/22 09:23 Pulse Ox 93 08/22/22 09:23 Time Spent Time spent with Patient: 40-54 minutes Time was spent: preparing to see the patient(eg.review tests), obtaining and/or reviewing separately otained hiistory, ordering medications,tests, procedures, referring, communicating with other health clinical care leader, indepentently interpreting results, counseling the patient and care coordination
[2022-08-22] MEDS: Magnesium Gluconate 500 MG TAB PO (14:44)
[2022-08-22 14:59] VITALS: BP 157/77; PULSE 79; RESP 18; TEMP 37; O2SAT 97
[2022-08-22] MEDS: Nicotine 14 MG/24 HR PATCH TD (17:01)
--- NOTE | 2022-08-22 17:31 | INDS_ITS ---
Date of service: 08/20/22 PT Notes Visit Reasons: Failure to Thrive Physical Therapy Inpatient Discharge Summary Date: 08/20/22 Dates of service: 08/14/2022 through 08/18/2022 This is a clinical summary of care provided for the duration of dates listed above. No charge was made in the completion of this documentation. Referring Doctor:Thomas Graham NP PT Orders: PT CONSULT: eval and treat Precautions: standard Patient Profile/Admitting Diagnosis:??Patient admitted 08/13/22 for dehydration, after presenting to the ED for the fifth time in a month for falls at home. Most recent hospitalization was 08/10/22. PMHX: All Active Problems? Hyperglycemia (Acute) Bacterial UTI (Acute) Dark emesis (Acute) Acute UTI (Acute) Falls (Acute) Acute dehydration (Acute) Acute delirium (Acute) Eschar of toe (Acute ~05/2022) Cellulitis of toe of right foot (Acute ~05/2022) Nail dystrophy (Acute) Diabetic foot infection (Acute) Nail avulsion, toe (Acute) L great toeUrge incontinence (Chronic) Declines RX briefsSelf-care deficit (Acute) Bedbound (Acute) gets up with WC to BRRecurrent falls (Chronic) Difficulty transferring from bed to wheelchair (Chronic) DME hospital bed has helpedDifficulty transferring from toilet to wheelchair (Chronic) Steph investigating commode Wheelchair bound (Chronic) no falls since starting using WC permanent need severe diabetic nephropathy needs more adaptive equipment in the homeCognitive attention deficit (Chronic) needs multiple repetitions of informationDiabetes type 2, uncontrolled (Chronic) though she has had education over the years, still seems not to understand carb counting ideally needs someone to educate son as he buys her food also needs hands-on teaching with nutrition labels, etc.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 neuropathy; Charcot's foot 03/19/13 [employer] Spinal stenosis of lumbar region with neurogenic claudication (Chronic 12/08/13) 04/13/2013 MRI Lumbar Spine: Facet arthropathy, DJD, L4-5, L5-S1 central spinal and neural foraminal stenosis Neurosurgery referral, but not a surgical candidate [facility] chronic pain service Chronic Pain [facility] Pain Center consult 10/26/15 [facility] [place] Spine Center consult 03/04/17 (Sanket Sawant MD) Other and unspecified hyperlipidemia (Chronic 08/14/12) Esophageal reflux disease (Chronic 07/24/11) UPPER GI SERIES 11/14/2012, MOD HIATAL HERNIA ? SEVERE GERD Coronary artery disease involving [place] coronary artery of [place] heart (Chronic) INFERIOR [place] 1996, 100% RCA occlusion; large inf defect on perfusion scan, dr Fair Chronic kidney disease, stage III (moderate) (Chronic 08/14/12) Cortical atrophy R kidney on CT 07/2014; multiple cysts Cardiomyopathy (Chronic) Dr Fair, EF 45% Jun 2014 ECHO (h/o much worse) 10/2016 ECHO: EF 40-45% 10/2016 MPI: no acute, but persistent old infarct COPD, mild (Chronic 07/02/17) PFTs Abdominal aortic aneurysm (Chronic 11/27/12) Identified 10/31/12 CT abd-pelvis; 4cm; stable 4.1 cm 07/2014 CT, 4.3cm 11/2016, 5.5cm 03/04/17 ([facility] [place]). not sure if it is worth following her AAA, as she is not surgical candidate defer to PCPChronic back pain (Chronic) Lumbar spinal stenosis-->RX FENTANYL initiated inpt 12/2021; PCP rx'ing with [facility] under palliative conditions (pt cannot come in for OVs)Hypothyroidism (Chronic) Hypertension (Chronic) Marijuana dependence (Chronic) Daily use since 17yo-->helps with mood & pain Medical History? 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 Ward Bacteremia due to Gram-positive bacteria Calculus of kidney and ureter Carpal tunnel syndrome (08/14/12) resolved s/p b/l release Cellulitis of foot Depressive disorder (04/04/13) 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 GuerraDJD of right shoulder (01/01/13) 12/2012 x-ray severe DJD glenohumeral joint Dr. Guerra; not a surgical candidate for replacement DNI (do not intubate) DNR (do not resuscitate) Encounter for hospice care Episode of seizures in July 2012 Fall at home Goals of care, counseling/discussion DNR/DNI COLST done wants to stay home may need new agent if/when Steph moves out of state as plannedIron deficiency anemia Mass of both parotid glands Abnormal CT 08/2019Mild pulmonary hypertension Nausea and vomiting (08/01/14) a. previous history of possible marijuana induced hyperemesisOsteoarthritis of left elbow Palliative care patient Perirectal abscess With associated hospitalization 2019POLST (Physician Orders for Life-Sustaining Treatment) signed 06/01/20Pulmonary embolism (~12/2021) Never started anticoagulationRLS (restless legs syndrome) Tinea corporis Social History/Home Situation: Patient lives in a private home with her son, and has caregivers who assist intermittently. She is home alone quite a bit per her report. Falls almost daily during transfers. Current Functional Limitations: Bed and wheelchair bound. Transfers with assistance when available, independently when necessary. Equipment Owned/DME: manual w/c Subjective:? NT. See most recent [employer] notes. Objective:? General Observation: NT. See most recent [employer] notes. Mental Status: NT. See most recent [employer] notes. Pain: NT. See most recent [employer] notes. ROM: Right Upper Extremity: Shoulder flexion to 135. Shoulder ER to 45*. Elbow motion grossly WFL. Left Upper Extremity: Shoulder flexion to 135. Shoulder ER to 45*. Elbow motion grossly WFL. Right Lower Extremity: Grossly WFL Left Lower Extremity: Grossly WFL Strength: Right Upper Extremity: Shoulder flexion 3/5. Triceps 3/5. Biceps 3/5. Left Upper Extremity: Shoulder flexion 3-/5. Shoulder ER 3-/5. Triceps 3-/5. Biceps 3/5. Right Lower Extremity: Functionally able to perform active SLR, active hip AD and AB. Left Lower Extremity: Requires mod A for SLR, hip AB and hip AD. BED MOBILITY/TRANSFERS? Sit-supine: Max A x2 with HOB flat ? Sit-stand: Mod A x2 with STEDY from recliner chair surface ? Stand-sit: SBA with STEDY and cueing for safety ? Chair-bed: STEDY? GAIT: Unable? Balance:? Static Sitting: poor Dynamic Sitting: unable Static Standing: unable Dynamic Standing: unable Special Tests: Mobility Limitations Standardized Measure [facility] AM-PAC 6 clicks Basic Mobility Inpatient Short Form: Raw Score: 10? CMS Score: 77% impairment ? ? ? Assessment:?? Patient is a 67 year old non-ambulatory female referred to physical therapy [facility] for evaluation and treatment.? Patient presents with extremely limited mobility and UE/LE weakness, with history of near-daily falls at home and increasing frequency of hospitalization. She requires skilled PT intervention to maximize strength and mobilty, and is not safe for return home at this time, as supported by low AM-PAC scores. Discussed SNF with her at time of consult, which she states she will consider; discussed with Care Management who will lead that conversation with Lisa. She currently? demonstrates the following impairment level findings: 1. Decreased UE strength 2. decreased LE strength 3. decreased activity tolerance 4. h/o frequent falls 5. non-ambulatory ?Impairments are contributing to the following functional limitations: 1. unable to perform bed mobility independently 2. unable to transfer independently 3. unable to ambulate Goals: Goals X1 week 1. Supine-Sit: min A NOT MET 2. Sit-Supine : min A NOT MET 3. Sit-Stand : min A NOT MET 4. Stand-Sit : min A NOT MET 5. Bed-Chair : min A NOT NOT MET 6. Chair-Bed : min A NOT MET DISCHARGE RECOMMENDATIONS: SNF vs LTC? for continued rehabilitation TREATMENT CODE/TIME: [place] Thank you for the opportunity to participate in the care of this patient. Alison Onofre PT, DPT, CLT [facility] [place], [place]
[2022-08-22] MEDS: Budesonide/Formoterol 80/4.5 6.9 GM 60 PUFF INH IH (20:40)
[2022-08-22] MEDS: Gabapentin 300 MG CAP PO (20:40)
[2022-08-22] MEDS: Acetaminophen 500 MG TAB 1000 MG PO (20:40)
[2022-08-22] MEDS: Nystatin POWDER 15 GM JAR TP (21:12)
[2022-08-22] MEDS: Melatonin 3 MG TAB PO (21:50)
[2022-08-23] MEDS: Levothyroxine 50 MCG TAB PO (05:45)
[2022-08-23] MEDS: Rosuvastatin 10 MG TAB PO (08:37)
[2022-08-23] MEDS: metFORMIN C.R. 500 MG TABCR PO (08:37)
[2022-08-23] MEDS: Acetaminophen 500 MG TAB 1000 MG PO ×3 (08:37→21:13)
[2022-08-23] MEDS: Magnesium Chloride 64 MG TABCR PO (08:37)
[2022-08-23] MEDS: Gabapentin 300 MG CAP PO ×2 (08:38→21:14)
[2022-08-23] MEDS: Pantoprazole 40 MG TABCR PO (08:38)
[2022-08-23] MEDS: Metoprolol CR 25 MG TABCR PO (08:38)
[2022-08-23] MEDS: Nystatin POWDER 15 GM JAR TP ×2 (08:38→21:23)
[2022-08-23] MEDS: Insulin Aspart 300 UNITS/3 ML PEN SC ×3 (08:39→18:37)
[2022-08-23] MEDS: Insulin Glargine 300 UNITS/3 ML PEN 40 UNITS SC (08:39)
[2022-08-23] MEDS: Budesonide/Formoterol 80/4.5 6.9 GM 60 PUFF INH IH (08:40)
[2022-08-23 08:58] VITALS: BP 146/78; PULSE 69; RESP 18; TEMP 36.9; O2SAT 96
[2022-08-23] MEDS: Nicotine 14 MG/24 HR PATCH TD (15:24)
[2022-08-23 15:37] VITALS: BP 149/81; PULSE 70; RESP 16; TEMP 36.2; O2SAT 95
[2022-08-23] MEDS: Melatonin 3 MG TAB PO (21:14)
[2022-08-24] MEDS: Naproxen 375 MG TAB PO ×3 (01:06→23:46)
[2022-08-24] MEDS: Levothyroxine 50 MCG TAB PO (06:29)
[2022-08-24] MEDS: Budesonide/Formoterol 80/4.5 6.9 GM 60 PUFF INH IH ×2 (07:40→20:14)
[2022-08-24 08:04] VITALS: BP 150/87; PULSE 96; RESP 16; TEMP 37; O2SAT 96
[2022-08-24] MEDS: Insulin Aspart 300 UNITS/3 ML PEN SC ×3 (08:20→16:50)
[2022-08-24] MEDS: Pantoprazole 40 MG TABCR PO (08:21)
[2022-08-24] MEDS: Insulin Glargine 300 UNITS/3 ML PEN 40 UNITS SC (08:22)
[2022-08-24] MEDS: Magnesium Chloride 64 MG TABCR PO (08:24)
[2022-08-24] MEDS: Acetaminophen 500 MG TAB 1000 MG PO ×3 (08:25→20:08)
[2022-08-24] MEDS: Metoprolol CR 25 MG TABCR PO (08:25)
[2022-08-24] MEDS: Gabapentin 300 MG CAP PO ×2 (08:25→20:08)
[2022-08-24] MEDS: Rosuvastatin 10 MG TAB PO (08:25)
[2022-08-24] MEDS: Nystatin POWDER 15 GM JAR TP ×2 (08:26→20:08)
[2022-08-24] MEDS: Ondansetron O.D.T. 4 MG TABEF PO (09:45)
--- NOTE | 2022-08-24 11:16 | PGE_ITS ---
Date of Service Date of service: 08/24/22 Time of Service: 11:16 Assessment and Plan Assessment and plan (1) Insomnia: Status: Acute Assessment and plan: will add trazodone to her melatonin. monitor and adjust meds as needed. (2) Diabetes type 2, uncontrolled: Status: Chronic Assessment and plan: blood sugars poorly controlled in the 300's A1C 12.4 on 06/04 increase metformin to bid increase lantus to 50 units in am, 10 in pm continue to monitor and adjust as needed. Qualifiers: Glycemic state: with hyperglycemia Qualified Code(s): E11.65 - Type 2 diabetes mellitus with hyperglycemia (3) Nicotine dependence: Status: Chronic Assessment and plan: NicoDerm patch Qualifiers: Nicotine product type: cigarettes Substance use status: uncomplicated Qualified Code(s): F17.210 - Nicotine dependence, cigarettes, uncomplicated (4) COPD, mild: Assessment and plan: Continue her Symbicort; no acute exacerbation of her COPD. Continue nicotine replacement with transdermal nicotine. (5) Chronic kidney disease, stage III (moderate): Assessment and plan: Monitor renal function avoid nephrotoxins. Qualifiers: Chronic kidney disease stage 3 subtype: unspecified whether 3a or 3b Qualified Code(s): N18.30 - Chronic kidney disease, stage 3 unspecified (6) Coronary artery disease involving [place] coronary artery of [place] heart: Assessment and plan: Continue rosuvastatin (7) Hypertension: Status: Chronic Assessment and plan: blood pressure controlled Qualifiers: Hypertension type: essential hypertension Qualified Code(s): I10 - Essential (primary) hypertension (8) Hypothyroidism: Status: Chronic Assessment and plan: Continue current levothyroxine. (9) DVT prophylaxis: Status: Deleted Assessment and plan: enoxaparin daily (10) Discharge planning issues: Status: Deleted Assessment and plan: case management will be following for discharge planning. guardianship will be sought. admitted to swing bed 2 for penitentiary care. discussed with Dr Mosley Subjective Subjective Patient reports: tolerating liquids well and tolerating a regular diet Interval history since last seen: still having behavioral issues and not sleeping well at night which is likely contributing to her agitation. medically remains stable. Exam Const Orientation: alert, awake, oriented to person and oriented to place HENGA Mouth: mucous membranes dry Eyes Conjunctivae: normal conjunctivae Sclera: normal sclerae Neck Neck: trachea midline and supple Resp Auscultation: clear to auscultation bilaterally, no rales, no rhonchi and no wheezes Cardio Rhythm: regular rhythm Heart Sounds: murmur GI Palpation: soft, not firm, no guarding, no masses, not rigid and nontender Skin General skin exam: no rashes or lesions noted Neuro General: patient alert and patient awake Cognition: abnormal cognition (some confusion, poor historian) Extrem General: no edema Psych Appearance: grossly normal Mental Status: mental status grossly normal Speech and Movement: speech and movement normal Mood: congruent mood Affect: other (flat) Objective Last Vital Signs Temp 37 C 08/24/22 08:04 Pulse 96 H 08/24/22 08:04 Resp 16 08/24/22 08:04 BP 150/87 H 08/24/22 08:04 Pulse Ox 96 08/24/22 08:04 Time Spent with Patient Time Spent with Patient: 35-49 minutes Time was spent: preparing to see the patient(eg.review tests), ordering medications,tests, procedures and indepentently interpreting results
--- NOTE | 2022-08-24 13:07 | CMSA_ITS ---
- If Service Date Differs Date of service: 08/23/22 Time of Service: 13:07 SB Psychosocial/Act.Assessment - Hospital Admission Admission Date: 08/22/22 Admission From:: Community through ED Diagnosis:: Failure to Thrive - Swing Bed Admission Swing Bed Admit Date:: 08/22/22 Swing Bed Level of Care: Level 2/ICF - Social Supports PREVIOUS FUNCTIONAL STATUS/SOCIAL/FAMILY SUPPORTS:: Carmel lives in a single family ranch style home in [place] with her adult son Ethan. He is her only child and she does not have any grandchildren. Carmel uses a wheelchair to get around her home and requires assistance with her ADLs. She has a [facility] personal fitness trainer 5 times a week, a home health nurse, and a rifle case repairer (Clair Stiles) through [facility]. Ethan helps her with shopping and meal preparation but her pipeliner perform her personal care. - Prior to Admission Living Arrangements/Environment Prior to Admission:: Private home, son Ethan resides with Lisa but works part time receptionist outside of the home with a lengthly commute. - Advance Directives for Healthcare Advance Directives for Healthcare: Advance Directives (COLST) Advance Directive Agent: Sister, Steph Gonzales - Present Functional Status Physical Abilities:: Deconditioned; two assist, frequent falls, chronic back pain, stedy lift Cognitive:: Attention deficit; requires multiple repetitions of information - Medical History PAST MEDICAL HISTORY/PAST SURGICAL HISTORY:: All Active Problems . Hyperglycemia (Acute). Bacterial UTI (Acute). Dark emesis (Acute). Acute UTI (Acute). Falls (Acute). Acute dehydration (Acute). Acute delirium (Acute). Eschar of toe (Acute ~05/2022). Cellulitis of toe of right foot (Acute ~05/2022). Nail dystrophy (Acute). Diabetic foot infection (Acute). Nail avulsion, toe (Acute). L great toe. Urge incontinence (Chronic). Declines RX briefs. Self-care deficit (Acute). Bedbound (Acute). gets up with WC to BR. Recurrent falls (Chronic). Difficulty transferring from bed to wheelchair (Chronic). [facility] [place] hospital bed has helped. Difficulty transferring from toilet to wheelchair (Chronic). Steph investigating commode. Wheelchair bound (Chronic). no falls since starting using WC. permanent need. severe diabetic nephropathy. needs more adaptive equipment in the home. Cognitive attention deficit (Chronic). needs multiple repetitions of information. Diabetes type 2, uncontrolled (Chronic). though she has had education over the years, still seems not to understand carb counting. ideally needs someone to educate son as he buys her food. also needs hands-on teaching with nutrition labels, etc. Obesity (BMI 30-39.9) (Chronic). Noncompliance with medication regimen (Chronic). Nicotine dependence (Chronic). 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 Neuro work-up . 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 Ambulates with cane when out; walker at home. 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 Goal A1c < 7.5%. Schein, neuropathy; Charcot's foot 03/19/13. [employer]. Spinal stenosis of lumbar region with neurogenic claudication (Chronic 12/08/13). 04/13/2013 MRI Lumbar Spine: Facet arthropathy, DJD, L4-5, L5-S1 central spinal and neural foraminal stenosis. Neurosurgery referral, but not a surgical candidate. [facility] chronic pain service. Chronic Pain. [facility] Pain [facility] consult 10/26/15. [facility] [place] Sp[facility] consult 03/04/17 (aSnket Sawant MD). Other and unspecified hyperlipidemia (Chronic 08/14/12). Esophageal reflux disease (Chronic 07/24/11). UPPER GI SERIES 11/14/2012, MOD HIATAL HERNIA SEVERE GERD. Coronary artery disease involving [place] coronary artery of [place] heart (Chronic). INFERIOR NH 1996, 100% RCA occlusion; large inf defect on perfusion scan, dr Fair. Chronic kidney disease, stage III (moderate) (Chronic 08/14/12). Cortical atrophy R kidney on CT 07/2014; multiple cysts. Cardiomyopathy (Chronic). Dr Fair, EF 45% Jun 2014 ECHO (h/o much worse). 10/2016 ECHO: EF 40-45%. 10/2016 MPI: no acute, but persistent old infarct. COPD, mild (Chronic 07/02/17). PFTs. Abdominal aortic aneurysm (Chronic 11/27/12). Identified 10/31/12 CT abd-pelvis; 4cm; stable 4.1 cm 07/2014 CT, 4.3cm 11/2016, 5.5cm 03/04/17 ([facility] [place]). not sure if it is worth following her AAA, as she is not surgical candidate. defer to PCP. Chronic back pain (Chronic). Lumbar spinal stenosis-->RX FENTANYL initiated i npt 12/2021; PCP rx'ing with [facility] under palliative conditions (pt cannot come in for OVs). Hypothyroidism (Chronic). Hypertension (Chronic). Marijuana dependence (Chronic). Daily use since 17yo-->helps with mood & pain. Medical History . Acute hyperglycemia. Anaerobic bacteremia. 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 Dr. Ward. Bacteremia due to Gram-positive bacteria. Calculus of kidney and ureter. Carpal tunnel syndrome (08/14/12). resolved s/p b/l release. Cellulitis of foot. Depressive disorder (08/14/12). DJD of left shoulder (01/01/13). Dr. Guerra. DJD of right shoulder (01/01/13). 12/2012 x- ray severe DJD glenohumeral joint. Dr. Guerra; not a surgical candidate for replacement. DNI (do not intubate). DNR (do not resuscitate). Encounter for hospice care. Episode of seizures in July 2012. Fall at home. Goals of care, counseling/discussion. DNR/DNI. COLST done. wants to stay home. may need new agent if/when Steph moves out of state as planned. Iron deficiency anemia. Mass of both parotid glands. Abnormal CT 08/2019. Mild pulmonary hypertension. Nausea and vomiting (08/01/14). a. previous history of possible marijuana induced hyperemesis. Osteoarthritis of left elbow. Palliative care patient. Perirectal abscess. With associated hospitalization 2019. POLST (Physician O rders for Life-Sustaining Treatment). signed 06/01/20. Pulmonary embolism (~12/2021). Never started anticoagulation. RLS (restless legs syndrome). Tinea corporis. Surgical History . Appendectomy. Childhood surgery, no date given by pt.HE. Hemiarthroplasty (06/13/15). Dr Gurera. R shoulder. History of carpal tunnel release of both wrists (~05/2012). Hx of umbilical hernia repair (09/06/15). Incarcerated umbilical hernia repair (09/06/15). Tonsillectomy. childhood surgery, no date given by pt.HE General Health:: Deconditioned, 2 person assist, stedy lift, DM2, COPD, CAD, CKD Stage 3, Frequent falls - Admission Data Reason for Swing Bed Admission:: Failure to thrive; [facility] placement Discharge Plan:: With family and part time receptionist [id number] facility Veneer Glue Spreader: Alisia Vega Date Assessment was completed:: 08/24/22
--- NOTE | 2022-08-24 13:09 | W.INDIABCONS ---
Date of service: 08/24/22 Time of Service: 13:09 Diabetes Inpatient Consult Reason for Visit: dm2 DESCRIPTION/ASSESSMENT: Carmel admitted with weakness, son reports no longer able to care for her at home. Carmel has a hx of being non compliant with her treatment for diabetes. Is not receptive to diet education or education on importance of taking her DM meds. A1C (05/29/22) 12.4%.? A1C per med chart review has been >10% since 2020.? DM home meds: 40 u lantus hs, 500 mg metformin BID.? Will be available prn. Time Spent in Nutritional Counseling and Treatment: 0
--- NOTE | 2022-08-24 13:15 | CMSCP_ITS ---
- If Service Date Differs Date of service: 08/24/22 Time of Service: 13:15 Swingbed Plan of Care Plan of care: SWING BED PROGRAM ACTIVITIES/DISCHARGE PLAN OF CARE ACTIVITIES PLAN Date: 08/24/22 Identified Need: Life enrichment during extended hospitalization Intervention/Plan: Daily visits, tele-visits and phone calls with natural supports, activity CART-program, television, reiki offered. Initials: [facility] DISCHARGE PLAN Date: 08/24/22 Identified Need: [facility] Care coordination; community placement, family setting or SNF/LTC Intervention/Plan: Guardianship: [facility] support: chriss Long interested in seeking Guardianship at this time per report. State Waiver, Placement support: outreach Attend to patient preferences re: discharge planning to align with self care needs upon discharge. Placement coordination; start with all PA facility-referral coordination Initials: JILLIAN
[2022-08-24] MEDS: Nicotine 14 MG/24 HR PATCH TD (16:10)
[2022-08-24] MEDS: metFORMIN C.R. 500 MG TABCR PO (16:11)
[2022-08-24] MEDS: Melatonin 3 MG TAB PO (20:08)
[2022-08-24] MEDS: Insulin Glargine 300 UNITS/3 ML PEN 10 UNITS SC (20:14)
[2022-08-24] MEDS: traZODone 50 MG TAB PO (21:13)
[2022-08-25] MEDS: Levothyroxine 50 MCG TAB PO (06:25)
[2022-08-25] MEDS: Budesonide/Formoterol 80/4.5 6.9 GM 60 PUFF INH IH ×2 (08:04→20:29)
[2022-08-25] MEDS: Acetaminophen 500 MG TAB 1000 MG PO ×3 (08:30→20:29)
[2022-08-25] MEDS: metFORMIN C.R. 500 MG TABCR PO ×3 (08:30→15:56)
[2022-08-25] MEDS: Magnesium Chloride 64 MG TABCR PO ×2 (08:30→20:29)
[2022-08-25] MEDS: Metoprolol CR 25 MG TABCR PO (08:31)
[2022-08-25] MEDS: Gabapentin 300 MG CAP PO ×2 (08:31→21:49)
[2022-08-25] MEDS: Pantoprazole 40 MG TABCR PO (08:31)
[2022-08-25] MEDS: Rosuvastatin 10 MG TAB PO (08:31)
[2022-08-25] MEDS: Insulin Glargine 300 UNITS/3 ML PEN 50 UNITS SC (08:32)
[2022-08-25] MEDS: Insulin Aspart 300 UNITS/3 ML PEN SC ×3 (08:33→16:50)
[2022-08-25] MEDS: Nystatin POWDER 15 GM JAR TP ×2 (08:37→20:29)
[2022-08-25] MEDS: Naproxen 375 MG TAB PO ×2 (09:55→22:52)
--- NOTE | 2022-08-25 11:41 | W.PM.PROGNOT ---
Date of Service Date of service: 08/25/22 Time of Service: 11:41 Assessment and Plan Assessment and plan (1) Insomnia: Status: Acute Assessment and plan: Continues to have insomnia despite Trazodone; will discontinue and start Mirtazapine, continue melatonin. monitor and adjust meds as needed. Ambien 5 mg PRN (2) Agitation: Status: Acute Assessment and plan: Very agitated, arguing with staff, yelling, pushing the call mercado and not needing assistance with anything; will start Quetiapine 25 mg BID and increase as needed (3) Diabetes type 2, uncontrolled: Status: Chronic Assessment and plan: continue current diabetes management as controlled well here A1C 12.4 06/04 Qualifiers: Glycemic state: with hyperglycemia Qualified Code(s): E11.65 - Type 2 diabetes mellitus with hyperglycemia (4) Nicotine dependence: Status: Chronic Assessment and plan: NicoDerm patch Qualifiers: Nicotine product type: cigarettes Substance use status: uncomplicated Qualified Code(s): F17.210 - Nicotine dependence, cigarettes, uncomplicated (5) COPD, mild: Assessment and plan: Continue her Symbicort; no acute exacerbation of her COPD. Continue nicotine replacement with transdermal nicotine. (6) Chronic kidney disease, stage III (moderate): Assessment and plan: Monitor renal function avoid nephrotoxins. Qualifiers: Chronic kidney disease stage 3 subtype: unspecified whether 3a or 3b Qualified Code(s): N18.30 - Chronic kidney disease, stage 3 unspecified (7) Coronary artery disease involving [place] coronary artery of [place] heart: Assessment and plan: Continue rosuvastatin (8) Hypertension: Status: Chronic Assessment and plan: blood pressure controlled Qualifiers: Hypertension type: essential hypertension Qualified Code(s): I10 - Essential (primary) hypertension (9) Hypothyroidism: Status: Chronic Assessment and plan: Continue current levothyroxine. (10) Discharge planning issues: Status: Deleted Assessment and plan: case management will be following for discharge planning. guardianship will be sought. [facility] care discussed with Dr Mosley Subjective Subjective Patient reports: afebrile; denies diarrhea, nausea, vomiting or shortness of breath Interval history since last seen: Lisa would like to go home, we discussed signing out AMA which she would like to do, however she does not have a ride home. She said she would like to stay here and not go to a care home. We discussed that is not an option. I told her there are referrals out, and we won't hear anything until Saturday soonest. She said she has burned a lot of bridges and people don't want to help her anymore. She said her son wishes her and in the same sentence she said her son will care for her at night, but she has no one to care for her during the day. She said she would like to go home to see her two cars. She has been very agitated and continues to verbally mistreat the staff. She denies pain, no SOB, vital signs stable. Objective Last Vital Signs Temp 37 C 08/24/22 08:04 Pulse 96 H 08/24/22 08:04 Resp 16 08/24/22 08:04 BP 150/87 H 08/24/22 08:04 Pulse Ox 96 08/24/22 08:04 Time Spent with Patient Time Spent with Patient: 25-34 minutes Time was spent: preparing to see the patient(eg.review tests), ordering medications,tests, procedures, counseling the patient and care coordination
[2022-08-25] MEDS: QUEtiapine 25 MG TAB PO ×2 (13:31→20:29)
[2022-08-25 14:36] VITALS: BP 103/48; PULSE 73; RESP 16; TEMP 36.9; O2SAT 94
[2022-08-25] MEDS: Nicotine 14 MG/24 HR PATCH TD (15:55)
[2022-08-25] MEDS: Insulin Glargine 300 UNITS/3 ML PEN 10 UNITS SC (20:30)
[2022-08-25] MEDS: Melatonin 3 MG TAB PO (21:08)
[2022-08-25] MEDS: Mirtazapine 15 MG TAB 7.5 MG PO (21:08)
[2022-08-25] MEDS: Zolpidem 5 MG TAB PO (22:52)
[2022-08-26] MEDS: Levothyroxine 50 MCG TAB PO (05:50)
[2022-08-26] MEDS: Budesonide/Formoterol 80/4.5 6.9 GM 60 PUFF INH IH ×2 (07:52→20:56)
[2022-08-26 08:02] VITALS: BP 125/75; PULSE 76; RESP 16; TEMP 36.7; O2SAT 94
[2022-08-26] MEDS: Acetaminophen 500 MG TAB 1000 MG PO ×3 (08:41→19:02)
[2022-08-26] MEDS: Metoprolol CR 25 MG TABCR PO (08:42)
[2022-08-26] MEDS: metFORMIN C.R. 500 MG TABCR PO ×2 (08:43→16:47)
[2022-08-26] MEDS: Gabapentin 300 MG CAP PO ×2 (08:44→19:03)
[2022-08-26] MEDS: Rosuvastatin 10 MG TAB PO (08:44)
[2022-08-26] MEDS: Magnesium Chloride 64 MG TABCR PO ×2 (08:44→21:07)
[2022-08-26] MEDS: QUEtiapine 25 MG TAB PO ×2 (08:44→19:03)
[2022-08-26] MEDS: Pantoprazole 40 MG TABCR PO (08:44)
[2022-08-26] MEDS: Nystatin POWDER 15 GM JAR TP ×2 (08:45→19:04)
[2022-08-26] MEDS: Insulin Aspart 300 UNITS/3 ML PEN SC ×3 (08:45→16:48)
[2022-08-26] MEDS: Insulin Glargine 300 UNITS/3 ML PEN 50 UNITS SC (08:45)
[2022-08-26] MEDS: Naproxen 375 MG TAB PO ×2 (12:53→16:47)
[2022-08-26] MEDS: Polyethylene Glycol 3350 17 GM PACKET PO ×2 (12:53→21:16)
[2022-08-26] MEDS: Docusate Sodium 100 MG CAP PO ×2 (14:56→19:03)
[2022-08-26] MEDS: Enoxaparin 40 MG/0.4 ML SYR SC (14:56)
[2022-08-26] MEDS: Nicotine 14 MG/24 HR PATCH TD (16:48)
[2022-08-26] MEDS: Mirtazapine 15 MG TAB 7.5 MG PO (20:58)
[2022-08-26] MEDS: Melatonin 3 MG TAB PO (20:58)
[2022-08-26] MEDS: Ondansetron O.D.T. 4 MG TABEF PO (20:59)
[2022-08-26] MEDS: Insulin Glargine 300 UNITS/3 ML PEN 10 UNITS SC (21:14)
[2022-08-27] MEDS: Zolpidem 5 MG TAB PO (00:23)
[2022-08-27] MEDS: Levothyroxine 50 MCG TAB PO (05:50)
[2022-08-27] MEDS: Pantoprazole 40 MG TABCR PO (07:17)
[2022-08-27] MEDS: Insulin Aspart 300 UNITS/3 ML PEN SC ×2 (07:18→11:21)
[2022-08-27] MEDS: metFORMIN C.R. 500 MG TABCR PO ×2 (07:27→17:00)
[2022-08-27 07:28] VITALS: BP 135/80; PULSE 94; RESP 19; TEMP 36.5
[2022-08-27] MEDS: Budesonide/Formoterol 80/4.5 6.9 GM 60 PUFF INH IH ×2 (07:51→21:11)
[2022-08-27] MEDS: Gabapentin 300 MG CAP PO ×2 (08:41→21:11)
[2022-08-27] MEDS: QUEtiapine 25 MG TAB PO ×2 (08:41→21:10)
[2022-08-27] MEDS: Polyethylene Glycol 3350 17 GM PACKET PO ×2 (08:41→21:09)
[2022-08-27] MEDS: Nystatin POWDER 15 GM JAR TP ×2 (08:41→21:10)
[2022-08-27] MEDS: Docusate Sodium 100 MG CAP PO ×3 (08:41→21:10)
[2022-08-27] MEDS: Magnesium Chloride 64 MG TABCR PO ×2 (08:41→21:10)
[2022-08-27 08:42] VITALS: TEMP 36.5
[2022-08-27] MEDS: Rosuvastatin 10 MG TAB PO (08:42)
[2022-08-27] MEDS: Acetaminophen 500 MG TAB 1000 MG PO ×3 (08:42→21:10)
[2022-08-27] MEDS: Metoprolol CR 25 MG TABCR PO (08:42)
[2022-08-27] MEDS: Insulin Glargine 300 UNITS/3 ML PEN 50 UNITS SC (08:50)
[2022-08-27] MEDS: Enoxaparin 40 MG/0.4 ML SYR SC (09:56)
[2022-08-27] MEDS: Naproxen 375 MG TAB PO (10:03)
[2022-08-27] MEDS: Nicotine 14 MG/24 HR PATCH TD (16:05)
[2022-08-27] MEDS: Melatonin 3 MG TAB 6 MG PO (21:09)
[2022-08-27] MEDS: Mirtazapine 15 MG TAB PO (21:10)
[2022-08-27] MEDS: Insulin Glargine 300 UNITS/3 ML PEN 10 UNITS SC (21:11)
[2022-08-28] MEDS: Naproxen 375 MG TAB PO (05:13)
[2022-08-28] MEDS: Levothyroxine 50 MCG TAB PO (05:13)
[2022-08-28] MEDS: Pantoprazole 40 MG TABCR PO (07:39)
[2022-08-28] MEDS: Acetaminophen 500 MG TAB 1000 MG PO ×3 (07:39→20:03)
[2022-08-28] MEDS: Insulin Aspart 300 UNITS/3 ML PEN SC ×3 (07:58→16:49)
[2022-08-28] MEDS: Insulin Glargine 300 UNITS/3 ML PEN 50 UNITS SC (08:00)
[2022-08-28] MEDS: QUEtiapine 25 MG TAB PO ×2 (08:00→20:02)
[2022-08-28] MEDS: Magnesium Chloride 64 MG TABCR PO ×2 (08:00→20:02)
[2022-08-28] MEDS: Metoprolol CR 25 MG TABCR PO (08:00)
[2022-08-28] MEDS: Docusate Sodium 100 MG CAP PO ×2 (08:00→15:11)
[2022-08-28] MEDS: Nystatin POWDER 15 GM JAR TP ×2 (08:00→20:01)
[2022-08-28] MEDS: Gabapentin 300 MG CAP PO ×2 (08:00→20:02)
[2022-08-28] MEDS: Enoxaparin 40 MG/0.4 ML SYR SC (08:00)
[2022-08-28] MEDS: Rosuvastatin 10 MG TAB PO (08:01)
[2022-08-28] MEDS: Polyethylene Glycol 3350 17 GM PACKET PO (08:01)
[2022-08-28] MEDS: metFORMIN C.R. 500 MG TABCR PO ×2 (08:02→16:46)
[2022-08-28] MEDS: Budesonide/Formoterol 80/4.5 6.9 GM 60 PUFF INH IH ×2 (08:08→20:01)
[2022-08-28] MEDS: Nicotine 14 MG/24 HR PATCH TD (15:13)
--- NOTE | 2022-08-28 19:26 | W.PM.PROGNOT ---
Date of Service Date of service: 08/28/22 Time of Service: 14:00 Subjective Subjective Interval history since last seen: No BM, c/o pain in abdomen - states she will not refuse bowel meds and did agree to a fleets enema. Exam GI Inspection: normal to inspection Palpation: soft, not firm, no guarding and nontender Auscultation: normal bowel sounds Objective Last Vital Signs Temp 36.5 C 08/27/22 08:42 Pulse 94 H 08/27/22 07:28 Resp 19 08/27/22 07:28 BP 135/80 08/27/22 07:28 Pulse Ox 94 08/26/22 08:02 Time Spent with Patient Time Spent with Patient: <25 minutes Time was spent: ordering medications,tests, procedures, counseling the patient and care coordination
[2022-08-28] MEDS: Mirtazapine 15 MG TAB PO (20:02)
[2022-08-28] MEDS: Melatonin 3 MG TAB 6 MG PO (20:02)
[2022-08-28] MEDS: Insulin Glargine 300 UNITS/3 ML PEN 10 UNITS SC (20:03)
[2022-08-29] MEDS: Levothyroxine 50 MCG TAB PO (05:51)
[2022-08-29] MEDS: QUEtiapine 25 MG TAB PO ×2 (07:46→22:03)
[2022-08-29] MEDS: Rosuvastatin 10 MG TAB PO (07:46)
[2022-08-29] MEDS: Pantoprazole 40 MG TABCR PO (07:46)
[2022-08-29] MEDS: Metoprolol CR 25 MG TABCR PO (07:46)
[2022-08-29] MEDS: metFORMIN C.R. 500 MG TABCR PO ×2 (07:46→16:56)
[2022-08-29] MEDS: Nystatin POWDER 15 GM JAR TP ×2 (07:47→22:06)
[2022-08-29] MEDS: Magnesium Chloride 64 MG TABCR PO ×2 (07:47→22:04)
[2022-08-29] MEDS: Enoxaparin 40 MG/0.4 ML SYR SC (07:47)
[2022-08-29] MEDS: Docusate Sodium 100 MG CAP PO ×3 (07:47→22:04)
[2022-08-29] MEDS: Gabapentin 300 MG CAP PO ×2 (07:47→22:04)
[2022-08-29] MEDS: Acetaminophen 500 MG TAB 1000 MG PO ×3 (07:47→22:04)
[2022-08-29] MEDS: Insulin Aspart 300 UNITS/3 ML PEN SC ×3 (08:20→16:06)
--- NOTE | 2022-08-29 08:20 | NUR.NOTE ---
Nursing Note: 8:40 am pT refused assistance by one PHYSICIAN PEDIATRICIAN. pT demanded that PHYSICIAN PEDIATRICIAN leave her room.
[2022-08-29] MEDS: Insulin Glargine 300 UNITS/3 ML PEN 50 UNITS SC (08:21)
[2022-08-29 08:25] VITALS: BP 151/76; PULSE 70; RESP 18; TEMP 36.4
[2022-08-29] MEDS: Budesonide/Formoterol 80/4.5 6.9 GM 60 PUFF INH IH ×2 (09:04→22:04)
--- NOTE | 2022-08-29 13:03 | PDOC.CMACT ---
- If Service Date Differs Date of service: 08/29/22 Time of Service: 13:03 Care Management Activity Note Carmel remains in Swing Bed 2 status. She continues to watch television and talk on the phone with her family. She declines additional offers of activity options.
--- NOTE | 2022-08-29 14:37 | CHAPLAIN ---
Carmel, who is here on swing bed, was in bed watching tv when I visited. She said she's doing okay. Her son often works out of town until late and so hasn't visited in a few days. And of course he doesn't know how to use the phone, she said. Carmel asked for magazines when I asked if I could get her any. When I brought a few, she told me she had taken some magazines home with her last time she was here and she'd return them. I let her know she could keep them. I will continue to visit Carmel.
[2022-08-29] MEDS: Nicotine 14 MG/24 HR PATCH TD (15:56)
[2022-08-29] MEDS: Melatonin 3 MG TAB 6 MG PO (22:03)
[2022-08-29] MEDS: Mirtazapine 15 MG TAB PO (22:03)
[2022-08-29] MEDS: Polyethylene Glycol 3350 17 GM PACKET PO (22:04)
[2022-08-29] MEDS: Insulin Glargine 300 UNITS/3 ML PEN 10 UNITS SC (22:05)
[2022-08-30] MEDS: Levothyroxine 50 MCG TAB PO (06:43)
[2022-08-30 07:28] VITALS: BP 123/69; PULSE 75; RESP 18; TEMP 36.9; O2SAT 95
[2022-08-30] MEDS: Acetaminophen 500 MG TAB 1000 MG PO ×3 (07:30→20:17)
[2022-08-30] MEDS: Enoxaparin 40 MG/0.4 ML SYR SC (07:30)
[2022-08-30] MEDS: QUEtiapine 25 MG TAB PO ×2 (07:30→20:15)
[2022-08-30] MEDS: Magnesium Chloride 64 MG TABCR PO ×2 (07:31→20:15)
[2022-08-30] MEDS: Metoprolol CR 25 MG TABCR PO (07:31)
[2022-08-30] MEDS: Gabapentin 300 MG CAP PO ×2 (07:31→20:15)
[2022-08-30] MEDS: Rosuvastatin 10 MG TAB PO (07:31)
[2022-08-30] MEDS: metFORMIN C.R. 500 MG TABCR PO ×2 (07:31→16:03)
[2022-08-30] MEDS: Polyethylene Glycol 3350 17 GM PACKET PO (07:32)
[2022-08-30] MEDS: Pantoprazole 40 MG TABCR PO (07:32)
[2022-08-30] MEDS: Docusate Sodium 100 MG CAP PO ×3 (07:32→20:15)
[2022-08-30] MEDS: Insulin Aspart 300 UNITS/3 ML PEN SC ×3 (07:33→16:03)
[2022-08-30] MEDS: Nystatin POWDER 15 GM JAR TP ×2 (07:34→20:17)
[2022-08-30] MEDS: Insulin Glargine 300 UNITS/3 ML PEN 50 UNITS SC (07:34)
[2022-08-30] MEDS: Budesonide/Formoterol 80/4.5 6.9 GM 60 PUFF INH IH ×2 (09:44→19:44)
[2022-08-30] MEDS: Ondansetron O.D.T. 4 MG TABEF PO (11:19)
[2022-08-30] MEDS: Nicotine 14 MG/24 HR PATCH TD (15:01)
[2022-08-30 20:21] VITALS: BP 127/73; PULSE 87; RESP 16; TEMP 36.5; O2SAT 95
[2022-08-30] MEDS: Insulin Glargine 300 UNITS/3 ML PEN 10 UNITS SC (21:29)
[2022-08-30] MEDS: Mirtazapine 15 MG TAB PO (21:29)
[2022-08-30] MEDS: Melatonin 3 MG TAB 6 MG PO (21:29)
[2022-08-31] MEDS: Levothyroxine 50 MCG TAB PO (05:29)
[2022-08-31] MEDS: Ondansetron O.D.T. 4 MG TABEF PO ×2 (05:29→23:40)
[2022-08-31] MEDS: Gabapentin 300 MG CAP PO ×2 (07:22→19:48)
[2022-08-31] MEDS: Pantoprazole 40 MG TABCR PO (07:26)
[2022-08-31] MEDS: Docusate Sodium 100 MG CAP PO ×3 (07:26→19:48)
[2022-08-31] MEDS: Acetaminophen 500 MG TAB 1000 MG PO ×3 (07:27→19:48)
[2022-08-31] MEDS: metFORMIN C.R. 500 MG TABCR PO ×2 (07:27→21:16)
[2022-08-31] MEDS: QUEtiapine 25 MG TAB PO ×2 (07:27→19:49)
[2022-08-31] MEDS: Insulin Aspart 300 UNITS/3 ML PEN SC ×3 (07:28→16:55)
[2022-08-31] MEDS: Rosuvastatin 10 MG TAB PO (07:28)
[2022-08-31] MEDS: Polyethylene Glycol 3350 17 GM PACKET PO ×2 (07:28→19:49)
[2022-08-31] MEDS: Magnesium Chloride 64 MG TABCR PO ×2 (07:28→19:49)
[2022-08-31] MEDS: Metoprolol CR 25 MG TABCR PO (07:28)
[2022-08-31] MEDS: Insulin Glargine 300 UNITS/3 ML PEN 50 UNITS SC (07:29)
[2022-08-31] MEDS: Nystatin POWDER 15 GM JAR TP (07:30)
[2022-08-31] MEDS: Enoxaparin 40 MG/0.4 ML SYR SC (07:30)
[2022-08-31 07:35] VITALS: BP 123/72; PULSE 65; RESP 17; TEMP 36.2; O2SAT 95
[2022-08-31] MEDS: Fluticasone NASAL SPRAY 16 GM BTL NS (12:43)
[2022-08-31] MEDS: Nicotine 14 MG/24 HR PATCH TD (16:54)
[2022-08-31] MEDS: Mirtazapine 15 MG TAB PO (19:48)
[2022-08-31] MEDS: Melatonin 3 MG TAB 6 MG PO (19:49)
[2022-08-31] MEDS: Budesonide/Formoterol 80/4.5 6.9 GM 60 PUFF INH IH (19:55)
[2022-08-31] MEDS: Insulin Glargine 300 UNITS/3 ML PEN 10 UNITS SC (21:15)
[2022-09-01] MEDS: Naproxen 375 MG TAB PO ×2 (04:25→08:15)
[2022-09-01] MEDS: Budesonide/Formoterol 80/4.5 6.9 GM 60 PUFF INH IH ×2 (07:43→19:29)
[2022-09-01 07:55] VITALS: BP 134/78; PULSE 89; RESP 16; TEMP 36.7; O2SAT 94
[2022-09-01] MEDS: Acetaminophen 500 MG TAB 1000 MG PO ×3 (08:15→20:54)
[2022-09-01] MEDS: Nystatin POWDER 15 GM JAR TP ×2 (08:15→21:35)
[2022-09-01] MEDS: Docusate Sodium 100 MG CAP PO ×3 (08:15→20:54)
[2022-09-01] MEDS: Fluticasone NASAL SPRAY 16 GM BTL NS (08:16)
[2022-09-01] MEDS: Gabapentin 300 MG CAP PO ×2 (08:16→20:54)
[2022-09-01] MEDS: Magnesium Chloride 64 MG TABCR PO ×2 (08:16→20:55)
[2022-09-01] MEDS: metFORMIN C.R. 500 MG TABCR PO ×2 (08:16→16:35)
[2022-09-01] MEDS: Rosuvastatin 10 MG TAB PO (08:16)
[2022-09-01] MEDS: Metoprolol CR 25 MG TABCR PO (08:17)
[2022-09-01] MEDS: QUEtiapine 25 MG TAB PO ×2 (08:17→20:53)
[2022-09-01] MEDS: Pantoprazole 40 MG TABCR PO (08:17)
[2022-09-01] MEDS: Levothyroxine 50 MCG TAB PO (08:17)
[2022-09-01] MEDS: Enoxaparin 40 MG/0.4 ML SYR SC (08:18)
[2022-09-01] MEDS: Insulin Aspart 300 UNITS/3 ML PEN SC ×3 (08:19→16:37)
[2022-09-01] MEDS: Insulin Glargine 300 UNITS/3 ML PEN 50 UNITS SC (08:20)
[2022-09-01] MEDS: Polyethylene Glycol 3350 17 GM PACKET PO ×2 (08:22→20:55)
--- NOTE | 2022-09-01 11:12 | NUR.NOTE ---
Nursing Note: pt has increased agitation and is stating that she is in a lot of pain in her lower back. pt is stating that she feels aggitated also due to the fact that her family is not calling or making attempts to reach her. pt is making statements that im just ready to .
--- NOTE | 2022-09-01 12:02 | W.PM.PROGNOT ---
Date of Service Date of service: 09/01/22 Time of Service: 12:02 Assessment and Plan Assessment and plan (1) Vaginal yeast infection: Status: Acute Assessment and plan: Vaginal yeast infection; diflucan contraindicated s/t Seroquel; Terconazole 80 mg vaginally daily x 3d and Miconazole vaginally BID PRN for external symptoms Not on antibiotics; possibly s/t diabetes Will check UA - (2) Back pain: Status: Acute Assessment and plan: C/O lower right back pain, no injury, suspect from immobility but will check UA in setting of vaginal yeast infection She has indwelling urinary catheter, will consider changing if UA positive (changed 08/22) Subjective Subjective Interval history since last seen: Nursing reports Carmel has a vaginal yeast infection. They report itching, and white discharge Nursing also reports she is complaining of right lower back and leg pain. Diclofenac patch ordered x2 one for right upper leg and one for right lower back; indwelling urinary catheter; will also check UA Objective Last Vital Signs Temp 36.7 C 09/01/22 07:55 Pulse 89 09/01/22 07:55 Resp 16 09/01/22 07:55 BP 134/78 09/01/22 07:55 Pulse Ox 94 09/01/22 07:55 Time Spent with Patient Time Spent with Patient: <25 minutes Time was spent: ordering medications,tests, procedures and care coordination
--- NOTE | 2022-09-01 13:01 | NUR.NOTE ---
Nursing Note: pt was complaining of extreme pain to her right hip, lower back, and radiating to lower leg. pt states that the aqua k pack placed is not effective. this rn asked sherwin charge nurse if she could possible ask provider for one time muscle relaxer to assist with the spasms that pt has c/o
[2022-09-01] MEDS: Diclofenac 1% Gel 100 GM TUBE TP (16:35)
[2022-09-01] MEDS: Nicotine 14 MG/24 HR PATCH TD (16:36)
[2022-09-01] MEDS: Melatonin 3 MG TAB 6 MG PO (20:50)
[2022-09-01] MEDS: Mirtazapine 15 MG TAB PO (20:55)
[2022-09-01] MEDS: Insulin Glargine 300 UNITS/3 ML PEN 10 UNITS SC (20:55)
[2022-09-02 06:35] VITALS: BP 123/77; PULSE 65; RESP 16; TEMP 36.6; O2SAT 96
[2022-09-02] MEDS: Magnesium Chloride 64 MG TABCR PO ×2 (07:27→19:55)
[2022-09-02] MEDS: Rosuvastatin 10 MG TAB PO (07:27)
[2022-09-02] MEDS: Docusate Sodium 100 MG CAP PO ×2 (07:28→14:17)
[2022-09-02] MEDS: Polyethylene Glycol 3350 17 GM PACKET PO (07:28)
[2022-09-02] MEDS: QUEtiapine 25 MG TAB PO ×2 (07:28→19:56)
[2022-09-02] MEDS: Acetaminophen 500 MG TAB 1000 MG PO ×3 (07:28→19:55)
[2022-09-02] MEDS: Levothyroxine 50 MCG TAB PO (07:28)
[2022-09-02] MEDS: Enoxaparin 40 MG/0.4 ML SYR SC (07:29)
[2022-09-02] MEDS: Gabapentin 300 MG CAP PO ×2 (07:29→19:56)
[2022-09-02] MEDS: metFORMIN C.R. 500 MG TABCR PO ×2 (07:29→16:28)
[2022-09-02] MEDS: Fluticasone NASAL SPRAY 16 GM BTL NS (07:29)
[2022-09-02] MEDS: Metoprolol CR 25 MG TABCR PO (07:29)
[2022-09-02] MEDS: Pantoprazole 40 MG TABCR PO (07:29)
[2022-09-02] MEDS: Insulin Aspart 300 UNITS/3 ML PEN SC ×3 (07:30→16:28)
[2022-09-02] MEDS: Nystatin POWDER 15 GM JAR TP ×2 (07:30→22:19)
[2022-09-02] MEDS: Diclofenac 1% Gel 100 GM TUBE TP (07:30)
[2022-09-02] MEDS: Insulin Glargine 300 UNITS/3 ML PEN 50 UNITS SC (07:30)
[2022-09-02] MEDS: Budesonide/Formoterol 80/4.5 6.9 GM 60 PUFF INH IH ×2 (07:53→20:00)
[2022-09-02] MEDS: Nicotine 14 MG/24 HR PATCH TD (15:44)
[2022-09-02] MEDS: Melatonin 3 MG TAB 6 MG PO (22:17)
[2022-09-02] MEDS: Insulin Glargine 300 UNITS/3 ML PEN 10 UNITS SC (22:17)
[2022-09-02] MEDS: Mirtazapine 15 MG TAB PO (22:17)
[2022-09-03] MEDS: Levothyroxine 50 MCG TAB PO (06:20)
[2022-09-03] MEDS: Budesonide/Formoterol 80/4.5 6.9 GM 60 PUFF INH IH ×2 (07:54→20:01)
[2022-09-03 08:00] VITALS: BP 130/68; PULSE 84; RESP 18; TEMP 36.6; O2SAT 95
[2022-09-03] MEDS: Docusate Sodium 100 MG CAP PO ×3 (08:40→19:57)
[2022-09-03] MEDS: Pantoprazole 40 MG TABCR PO (08:40)
[2022-09-03] MEDS: Metoprolol CR 25 MG TABCR PO (08:40)
[2022-09-03] MEDS: Gabapentin 300 MG CAP PO ×2 (08:40→19:57)
[2022-09-03] MEDS: Enoxaparin 40 MG/0.4 ML SYR SC (08:41)
[2022-09-03] MEDS: Acetaminophen 500 MG TAB 1000 MG PO ×3 (08:41→19:56)
[2022-09-03] MEDS: metFORMIN C.R. 500 MG TABCR PO ×2 (08:41→16:48)
[2022-09-03] MEDS: Magnesium Chloride 64 MG TABCR PO ×2 (08:41→19:57)
[2022-09-03] MEDS: QUEtiapine 25 MG TAB PO ×2 (08:41→19:57)
[2022-09-03] MEDS: Rosuvastatin 10 MG TAB PO (08:41)
[2022-09-03] MEDS: Insulin Aspart 300 UNITS/3 ML PEN SC ×3 (08:44→16:48)
[2022-09-03] MEDS: Insulin Glargine 300 UNITS/3 ML PEN 50 UNITS SC (08:44)
[2022-09-03] MEDS: Fluticasone NASAL SPRAY 16 GM BTL NS (08:45)
[2022-09-03] MEDS: Nystatin POWDER 15 GM JAR TP ×2 (08:45→20:01)
--- NOTE | 2022-09-03 15:43 | CMDISCH_ITS ---
- If Service Date Differs Date of service: 09/03/22 Time of Service: 15:43 LACE Index Scoring Tool - Questions: Length of Stay (in days): 7 - 13 Comorbidities: Diabetes w/o Complication, Chronic Pulmonary Disease E.D. Visits: 15 Care Management Discharge Reason for Hospitalization: Failure to Thrive Discharge Plan: SNF: [facility] via [facility]. Patient/Family Education Needs: Review discharge instructions, discuss Ask Me Three. Services Needed at Discharge: [facility] Facility ([facility] ), Transportation ([facility])
[2022-09-03 16:23] LABS: Source Nasal/Nares
[2022-09-03] MEDS: Nicotine 14 MG/24 HR PATCH TD (16:47)
[2022-09-03 17:04] LABS: COVID-19 PCR Negative (Negative)
[2022-09-03] MEDS: Polyethylene Glycol 3350 17 GM PACKET PO (19:56)
--- NOTE | 2022-09-03 20:53 | NUR.NOTE ---
Nursing Note: At 1930 hrs., beginning of the shift, this nurse answered her call, saying that she is on bedpan, removed it with formed stool in large amount and wiped her.Patient was upset to this nurse while, doing her nursing assessment because this typewriter assembler informed her that I have to write on the board every time she will call for bedpan since she forgets easily if she has bowel movement ., per report from day nurse that patient called bedpan 15 times in 2 hrs. and does not do anything. Patient stated to find another nurse she does not want me there, Unforrtunately, no one will swap their assigned patients so I told patient that she will be stock with me. Patient verbalized that I have to give only meds and not to show my face in her room anymore. Charge nurse is aware of her manipulative behavior. Continue to observe.Call lights at reach.
[2022-09-03] MEDS: Mirtazapine 15 MG TAB PO (21:09)
[2022-09-03] MEDS: Melatonin 3 MG TAB 6 MG PO (21:09)
[2022-09-03] MEDS: Insulin Glargine 300 UNITS/3 ML PEN 10 UNITS SC (21:10)
[2022-09-04] MEDS: Levothyroxine 50 MCG TAB PO (05:50)
[2022-09-04] MEDS: metFORMIN C.R. 500 MG TABCR PO (07:44)
[2022-09-04] MEDS: Magnesium Chloride 64 MG TABCR PO (07:44)
[2022-09-04] MEDS: Docusate Sodium 100 MG CAP PO (07:44)
[2022-09-04] MEDS: QUEtiapine 25 MG TAB PO (07:44)
[2022-09-04] MEDS: Polyethylene Glycol 3350 17 GM PACKET PO (07:44)
[2022-09-04] MEDS: Acetaminophen 500 MG TAB 1000 MG PO (07:44)
[2022-09-04] MEDS: Gabapentin 300 MG CAP PO (07:44)
[2022-09-04] MEDS: Rosuvastatin 10 MG TAB PO (07:44)
[2022-09-04] MEDS: Metoprolol CR 25 MG TABCR PO (07:45)
[2022-09-04] MEDS: Pantoprazole 40 MG TABCR PO (07:45)
[2022-09-04] MEDS: Fluticasone NASAL SPRAY 16 GM BTL NS (07:47)
[2022-09-04] MEDS: Nystatin POWDER 15 GM JAR TP (07:47)
[2022-09-04] MEDS: Diclofenac 1% Gel 100 GM TUBE TP (07:47)
[2022-09-04] MEDS: Insulin Aspart 300 UNITS/3 ML PEN SC (08:33)
[2022-09-04] MEDS: Enoxaparin 40 MG/0.4 ML SYR SC (08:34)
--- NOTE | 2022-09-04 09:01 | W.PM.DS.N ---
Date of service: 09/04/22 Time of Service: 09:01 DS: Diagnosis Discharge Diagnosis (1) Back pain: Status: Acute (2) Agitation: Status: Acute (3) Hyperglycemia: Status: Acute (4) Falls: Status: Acute (5) Hypertension: Status: Chronic Discharge Plan Disposition Patient Disposition: Longterm Facility(SNF) Condition: Fair Discharge Details Reason For Visit: Failure to Thrive Admit Date/Time: 08/22/22 13:35 Admit Provider: Missael Mosley Attending Provider: Missael Mosley Primary Care Provider: Mai Castelan Hospital Course Hospital Course: This is a non-compliant chronically ill 67-year-old female patient that on 08/21/2022 ?presented to the [facility] ED from home complaining of generalized weakness over days time.? She stated she lives alone, although she does live with her son, but he does work during the day, she is wheelchair-bound and often is unable to successfully transfer from her wheelchair to her bed.? She has frequent falls but has not recently injured herself.? She stated she has been reluctant to pursue rehabilitation facility in the past but now wished to be placed outside of her home and noted her willingness to do so.? In the ED ?the patient is alert and interactive she had a normal blood pressure, was afebrile and oxygenating normally.? She was and is generally poorly kempt.? She has had a recent hospitalization for ESBL UTI and was discharged to home.? Since being home she called 911 approx 9 times for lift assist, etc.?Patient lives with her son who works during the day. She is unable to care for herself, often being found sitting in incontinence of urine and stool.? Her son states he's unable to care for her.? Patient has history of being uncooperative and has always declined rehab and home health services.?Medical screening in ED 08/21/2022 showed no acute medical condition; she is at her baseline and again, chronically ill.?Patient is deconditioned and has ongoing chronic medical problems.? She has signed out AGAINST MEDICAL ADVICE from hospital admissions on numerous occasions.? She now states she is willing to go to a residential.?Case management consulted for discharge planning.? She was admitted here for residential care while guardianship obtained and she could be safely placed.? She has been accepted at [facility] in [facility].? Her vital signs and labs are stable. Covid swab done and negative.? Patient is being discharged via EMS stable. Discussed with Dr López Home Meds and New Rx's Prescriptions: New melatonin 3 mg Tablet 6 mg PO HS Qty: 0 0RF metformin 500 mg Tablet Extended Release 24 Hr 500 mg PO BID Qty: 0 0RF docusate sodium [Colace] 100 mg Capsule 100 mg PO TID Qty: 0 0RF diclofenac sodium 1 % Gel 2 - 4 g topical QID PRN PRNQty: 0 0RF fluticasone propionate 50 mcg/actuation [place],Suspension 0 g NS DAILY Qty: 0 0RF mirtazapine 15 mg Tablet 15 mg PO HS Qty: 0 0RF quetiapine 25 mg Tablet 25 mg PO BID Qty: 0 0RF Continued gabapentin 300 mg capsule 300 mg PO BID Qty: 180 3RF Rx Instructions: Dose increase 03/01/22 for chronic lumbar spine pain/spinal stenosis Rybelsus 3 mg tablet 3 mg PO DAILY Qty: 30 0RF Rx Instructions: Uncontrolled diabetes insulin degludec [Tresiba FlexTouch U-200] 200 unit/mL (3 mL) insulin pen 50 unit subcut DAILY MDD 80 units Qty: 12 11RF Rx Instructions: Uncontrolled T2DM rosuvastatin 10 mg tablet 10 mg PO DAILY Qty: 90 3RF pantoprazole 40 mg tablet,delayed release (DR/EC) 40 mg PO DAILY Qty: 90 3RF metoprolol succinate 25 mg tablet extended release 24 hr 25 mg PO DAILY Qty: 90 3RF albuterol sulfate [ProAir HFA] 90 mcg/actuation HFA aerosol inhaler 1 - 2 puff Inhalation Q4H PRN Qty: 18 3RF budesonide-formoterol [Symbicort] 80-4.5 mcg/actuation HFA aerosol inhaler 2 puff Inhalation BID Qty: 3 3RF Hold Instructions: Home Medication placed on hold at Doctor's office Patient Comments: 04/01/17 Patient unsure of last dose. Maybe last Thur, but patient is noncompliant with medications CDG naproxen 375 mg tablet 375 mg PO .daily in AM PRN (Reason: pain) Qty: 90 0RF Rx Instructions: Chronic pain nicotine 14 mg/24 hr patch 24 hour 1 patch transdermal Q24H Qty: 14 0RF Rx Instructions: Nicotine cessation levothyroxine 50 mcg tablet 50 mcg PO DAILY magnesium chloride 64 mg magnesium tablet 64 mg PO DAILY Qty: 30 0RF Discontinued metformin 500 mg tablet extended release 24 hr 500 mg PO DAILY Qty: 90 3RF Rx Instructions: Diabetes--take with food No Action (DME) lancets Misc See Rx Instructions .MEDSUPPLY Qty: 100 3RF Rx Instructions: As directed to check blood glucose daily. On insulin. Dispense covered brand. mupirocin 2 % ointment 1 applic topical BID-TID Qty: 15 0RF Rx Instructions: May substitute with cream if less expensive; apply thin layer to swollen & red finger until resolved (DME) Blood Glucose Test Strip See Rx Instructions .MEDSUPPLY Qty: 100 3RF Rx Instructions: As directed to check blood glucose daily. On insulin. Dispense covered brand. (DME) Air mattress See Rx Instructions .Route .MEDSUPPLY Qty: 1 0RF Hold Instructions: Home Medication placed on hold at Doctor's office Rx Instructions: As directed (DME) Wheelchair (manual) regular See Rx Instructions .Route .MEDSUPPLY Qty: 1 0RF Rx Instructions: As directed; currently has Tracer EX2 model--please replace with similar; thank you. 03/01/22. (DME) blood-glucose meter [AlgorithmiaTouch Ultra2 Meter] Kit See Rx Instructions .ROUTE .MEDSUPPLY Qty: 1 0RF Rx Instructions: to check BS qid for DM E11.9 management to keep A1c under 8 acetaminophen [Tylenol Arthritis Pain] 650 mg tablet extended release 1,300 mg PO Q12H Qty: 360 3RF Rx Instructions: Chronic pain--do not exceed 4G in 24 hours tylenol (DME) blood sugar diagnostic Strip See Dose Instructions .ROUTE .MEDSUPPLY Qty: 100 3RF Dose Instruction: As directed Rx Instructions: One Touch Ultra,E 11.40 tests daily on insulin (DME) Novofine Autocover 30 gauge x 1/3 needle See Rx Instructions .ROUTE .MEDSUPPLY Qty: 100 3RF Rx Instructions: For DM E11.40 to maintain A1C <8, monitoring daily melatonin 3 mg capsule 3 mg PO HS Qty: 90 0RF nystatin 100,000 unit/gram Powder 1 applic topical BID Qty: 0 0RF Discharge Instructions Activity:: Bedbound Equipment/Supplies:: No Equipment Needed Diet:: Carb Counting Discharge Orders Discharge Orders: Discharge Order (Routine); Ordered 09/04/22 Ordered By: Nicole Graham DS: Summary Time Spent with Patient providing and/or coordinating discharge services: Greater than 30 minutes Status at Discharge Functional status at discharge: bed bound Overall status at discharge: patient is not back to baseline Mental Status: mental status grossly normal Speech and Movement: speech and movement normal Mood: congruent mood Affect: other (flat) Exam Const Orientation: alert, awake, oriented to person and oriented to place HENLA Mouth: mucous membranes dry Eyes Conjunctivae: normal conjunctivae Sclera: normal sclerae Neck Neck: trachea midline and supple Resp Auscultation: clear to auscultation bilaterally, no rales, no rhonchi and no wheezes Cardio Rhythm: regular rhythm Heart Sounds: murmur GI Palpation: soft, not firm, no guarding, no masses, not rigid and nontender Skin General skin exam: no rashes or lesions noted Neuro General: patient alert and patient awake Cognition: abnormal cognition (some confusion, poor historian) Extrem General: no edema Psych Appearance: grossly normal Mental Status: mental status grossly normal Speech and Movement: speech and movement normal Mood: congruent mood Affect: other (flat) DS: Data Vitals/I&O Vitals and I&O: Vital Signs Temperature 36.6 C 09/03/22 08:00 Temperature Source Tympanic 09/03/22 08:00 Pulse 84 09/03/22 08:00 Pulse Rhythm Regular 09/04/22 03:48 Respiratory Rate 18 09/03/22 08:00 Respiratory Effort Normal, Non-Labored 09/04/22 03:48 Respiratory Depth Normal 09/04/22 03:48 Respiratory Pattern Normal 09/04/22 03:48 Blood Pressure 130/68 09/03/22 08:00 Blood Pressure Position Supine 08/22/22 09:23 Pulse Oximetry 95 09/03/22 08:00 Oxygen Delivery Method Room Air 09/03/22 08:00 Oxygen Flow Rate 0 09/03/22 08:00 Fraction of Inspired Oxygen (FIO2) 94 08/29/22 08:25 Pain Level 3 09/04/22 08:06 Comment pain 06/2208/27/22 07:28 Intake & Output 09/03/22 09/03/22 09/04/22 11:59 23:59 11:59 Intake Total 550 / 1510 960 / 1510 Output Total 1350 / 2100 750 / 2100 700 / 700 Balance -800 / -590 210 / -590 -700 / -700 Intake: Oral 550 / 1510 960 / 1510 Output: Urine 1350 / 2100 750 / 2100 700 / 700 Other: Urine Color Yellow Yellow Yellow Urine Appearance Clear Clear Clear Stool Size Moderate Large Stool Characteristics Soft Soft Brown Formed Data Completed and Pending Labs on day of discharge: Labs from last 24 hours 09/03/22 15:55 COVID-19 Source Nasal/Nares SARS-CoV-2 (PCR) Negative PFSH All Active Problems (Updated 09/01/22 @ 13:20 by Nicole Graham NP) Back pain (Acute) Vaginal yeast infection (Acute) Agitation (Acute) Insomnia (Acute) Hypomagnesemia (Acute) Hyperglycemia (Acute) Acute UTI (Acute) Falls (Acute) Eschar of toe (Acute ~05/2022) Cellulitis of toe of right foot (Acute ~05/2022) Nail dystrophy (Acute) Diabetic foot infection (Acute) Nail avulsion, toe (Acute) L great toe Urge incontinence (Chronic) Declines RX briefs Recurrent falls (Chronic) Diabetes type 2, uncontrolled (Chronic) though she has had education over the years, still seems not to understand carb counting ideally needs someone to educate son as he buys her food also needs hands-on teaching with nutrition labels, etc. 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) Goal A1c < 7.5% Schein, neuropathy; Charcot's foot 03/19/13 [employer] Spinal stenosis of lumbar region with neurogenic claudication (Chronic 12/08/13) 04/13/2013 MRI Lumbar Spine: Facet arthropathy, DJD, L4-5, L5-S1 central spinal and neural foraminal stenosis Neurosurgery referral, but not a surgical candidate [facility] chronic pain service Chronic Pain [facility] Pain Center consult 10/26/15 [facility] Spine Center consult 03/04/17 (Sanket Sawant MD) Other and unspecified hyperlipidemia (Chronic 08/14/12) Esophageal reflux disease (Chronic 07/24/11) UPPER GI SERIES 11/14/2012, MOD HIATAL HERNIA SEVERE GERD Abdominal aortic aneurysm (Chronic 11/27/12) Identified 10/31/12 CT abd-pelvis; 4cm; stable 4.1 cm 07/2014 CT, 4.3cm 11/2016, 5.5cm 03/04/17 ([facility]). not sure if it is worth following her AAA, as she is not surgical candidate defer to PCP Chronic back pain (Chronic) Lumbar spinal stenosis-->RX FENTANYL initiated inpt 12/2021; PCP rx'ing with [facility] under palliative conditions (pt cannot come in for OVs) Hypothyroidism (Chronic) Hypertension (Chronic) Marijuana dependence (Chronic) Daily use since 17yo-->helps with mood & pain Medical History (Updated 09/01/22 @ 13:20 by Nicole Graham NP) Acute hyperglycemia Anaerobic bacteremia Arthropathy associated with neurological disorder (03/19/13) Dr. Ward Bacteremia due to Gram-positive bacteria Calculus of kidney and ureter Cardiomyopathy Dr Fair, EF 45% Jun 2014 ECHO (h/o much worse) 10/2016 ECHO: EF 40-45% 10/2016 MPI: no acute, but persistent old infarct Carpal tunnel syndrome (08/14/12) resolved s/p b/l release Cellulitis of foot Chronic kidney disease, stage III (moderate) (08/14/12) Cortical atrophy R kidney on CT 07/2014; multiple cysts Cognitive attention deficit needs multiple repetitions of information COPD, mild (07/02/17) PFTs Coronary artery disease involving [place] coronary artery of [place] heart INFERIOR [place] 1996, 100% RCA occlusion; large inf defect on perfusion scan, dr Fair Dark emesis Depressive disorder (08/14/12) 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 Guerra DJD of right shoulder (01/01/13) 12/2012 x-ray severe DJD glenohumeral joint Dr. Guerra; not a surgical candidate for replacement DNI (do not intubate) DNR (do not resuscitate) Encounter for hospice care Episode of seizures in July 2012 Fall at home Goals of care, counseling/discussion DNR/DNI COLST done wants to stay home may need new agent if/when Steph moves out of state as planned Iron deficiency anemia Mass of both parotid glands Abnormal CT 08/2019 Mild pulmonary hypertension Nausea and vomiting (08/01/14) a. previous history of possible marijuana induced hyperemesis Osteoarthritis of left elbow Palliative care patient Perirectal abscess With associated hospitalization 2019 POLST (Physician Orders for Life-Sustaining Treatment) signed 06/01/20 Pulmonary embolism (~12/2021) Never started anticoagulation RLS (restless legs syndrome) Tinea corporis Surgical History Appendectomy Childhood surgery, no date given by pt.HE Hemiarthroplasty (06/13/15) Dr Charlie Gallardo shoulder History of carpal tunnel release of both wrists (~05/2012) Hx of umbilical hernia repair (09/06/15) Incarcerated umbilical hernia repair (09/06/15) Tonsillectomy childhood surgery, no date given by pt.HE Family History Mother , at 73 yo from dementia Dementia Diabetes Stroke Blind Father , MVA (truck) accident at 45yo No problems noted. Sister Age: 62 Thyroid cancer Brother , from complications of diabetes age 60 Diabetes Brother Diabetes Heart disease Colon cancer Ulcerative colitis Sister Obesity Prediabetes Arthritis Son Substance abuse attends [facility] clinic; h/o heroin and other opioid addiction Other FH: mental illness Social History Smoking/Tobacco Use Status: Current every day Tobacco Type: cigarettes Tobacco: How many years used: 54 Quit status: not considering quitting Counseling given: counseling >3 minutes Smoking risk assessment performed?: Yes Alcohol Intake: former Drug use: Daily Substance use type: marijuana Counseling given: Yes Details: pt states she smokes marijuana on a daily basis x1 per day Adopted: No Caregiver/Support person: Yes Foster care: No Household members: children Housing: house Number of Children: 1 number of grandchildren: 0 Communication Needs: Corrective Lenses Education Level: high school Details: didn't finish sophomore year Do you need help understanding health information?: Always 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; 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 Pets and animals: Yes Current gender identity: female What is your relationship status?: How often do you talk on the phone with friends or family?: three or more times per week How often do you get together with friends or relatives?: twice per week Panel score (0-1 are the most socially isolated patients): 1 What type of physical activity do you participate in: none and wheelchair-bound Special eliana needs: No Seatbelt use: sometimes Working smoke detector in home: Yes Fire extinguisher in home: Yes Do you feel safe at home: Yes (Most of the time, yes I feel better if my son or somebody is there) Do you feel safe in your relationship?: Yes Additional Social history: pt states she lives with son, but he gone all the time. Time Spent with Patient Time Spent with Patient: 45-69 minutes Time was spent: referring, communicating with other health career center director, counseling the patient and care coordination
[2022-09-04] MEDS: Insulin Glargine 300 UNITS/3 ML PEN 50 UNITS SC (09:12)
[2022-09-04] MEDS: LORazepam 1 MG TAB PO (10:16)
== END 2022-09-04 11:22 | disposition skilled nursing facility (03) | DRG 638 ==
LOC: ER 09:29 → MS 14:54
PROVIDERS: Nurse Practitioner Family; Admitting Provider Family Medicine; Emergency Provider Physician Assistant; PCP Nurse Practitioner Adult Health; Visit Provider Family Medicine
DX: E11.65 Type 2 diabetes mellitus with hyperglycemia (principal); G11.19 Other early-onset cerebellar ataxia; I42.9 Cardiomyopathy, unspecified; F17.210 Nicotine dependence, cigarettes, uncomplicated; E11.22 Type 2 diabetes mellitus with diabetic chronic kidney disease; N18.30 Chronic kidney disease, stage 3 unspecified; I25.10 Atherosclerotic heart disease of native coronary artery without angina pectoris; I12.9 Hypertensive chronic kidney disease with stage 1 through stage 4 chronic kidney disease, or unspecified chronic kidney disease; E03.9 Hypothyroidism, unspecified; R53.1 Weakness; G47.00 Insomnia, unspecified; Z79.4 Long term (current) use of insulin; E83.42 Hypomagnesemia; N39.41 Urge incontinence; R29.6 Repeated falls; E11.40 Type 2 diabetes mellitus with diabetic neuropathy, unspecified; I71.40 Abdominal aortic aneurysm, without rupture, unspecified; F12.20 Cannabis dependence, uncomplicated; G89.29 Other chronic pain; M54.9 Dorsalgia, unspecified; I25.2 Old myocardial infarction; F32.A Depression, unspecified; M19.012 Primary osteoarthritis, left shoulder; M19.011 Primary osteoarthritis, right shoulder; G25.81 Restless legs syndrome; Z66 Do not resuscitate; D50.9 Iron deficiency anemia, unspecified; I27.20 Pulmonary hypertension, unspecified; R45.1 Restlessness and agitation; B37.31 Acute candidiasis of vulva and vagina
CPT/HCPCS: 36415; 51702; 80053; 82550; 83690; 87635; 93005; 94640; 99285; 99306; 99309; 99316; J1650; 74177; 81003; 81015; 83735; 84484; 85025; 87086; 93010; 94664; J0131; J2405